=== PATIENT | female | born 1945 | race Caucasian/White ===

== ENCOUNTER 2020-05-05 21:58 | Observation (INO) | payer MEDICARE, SELFPAY ==
[2020-05-05 22:00] VITALS: BP 182/94; PULSE 111; RESP 20; TEMP 35.8; O2SAT 93; BMI 47.8
--- NOTE | 2020-05-05 22:08 | EKG12_ITS ---
Test Reason : CP ADMISSION Blood Pressure : / mmHG Vent. Rate : 104 BPM Atrial Rate : 104 BPM P-R Int : 150 ms QRS Dur : 092 ms QT Int : 360 ms P-R-T Axes : 000 013 044 degrees QTc Int : 473 ms Ectopic atrial tachycardia Low voltage QRS Borderline ECG When compared with ECG of 05-MAY-2020 22:02, MANUAL COMPARISON REQUIRED, DATA IS UNCONFIRMED Confirmed by NATI RICE, SELIN ([id number]), health editor HOOD BRUNNER ([id number]) on 05/07/2020 12:48:26 PM Referred By: DR CAMPA Confirmed By:SELIN DAMIAN MD
[2020-05-05 22:18] LABS: Absolute Lymphocyte Count 1.77 X10^3/uL (0.83-4.51); Absolute Neutrophil Count 8.3 X10^3/uL (2.0-7.7); Basophil# 0.08 X10^3/uL; Basophil% 0.7 % (0-1); Eosinophils% 2.6 % (0-5); Hematocrit 44.3 % (37-47); Hemoglobin 14.6 g/dL (12.0-15.0); Lymphocyte # 1.77 X10^3/ul (4.0); Lymphocyte % 15.5 % (19-41); Mean Corpuscular Hgb 29.7 pg (27.0-32.0); Mean Corpuscular Volume 90.2 fL (81-99); Mean Platelet Vol. 10.1 fl (6.2-12.0); Monocyte# 0.92 X10^3/uL; NRBC Flagged by Analyzer 0 % (0-5); Neutrophil # 8.34 X10^3/uL (2.7-7.7); Neutrophil % 72.9 % (47-70); Platelet Count 204 K/mm3 (150-450); RBC Distribution Width SD 43.3 fl (35.1-43.9); Red Blood Count 4.91 M/mm3 (4.2-5.4); White Blood Count 11.5 K/mm3 (4.4-11.0)
--- NOTE | 2020-05-05 22:18 | ED.VISSUMM ---
- ER Visit Summary Date of Service: 05/05/20 Chief Complaint: Chest pain History of Present Illness: The patient is a 74 F has medical history of diabetes, hypertension high cholesterol. No cardiac history. The patient did have COVID-19 in January. She has had exertional dyspnea for some time particularly with walking steps. Today around 3:00 this afternoon she started getting midsternal chest pain that did not radiate. She denies any nausea or diaphoresis. It was not associated with exertion. She has never had a cardiac catheterization and has not had a stress test for a number of years. Physical Examination: Older female no acute distress. Sister at bedside. Vital signs are stable afebrile. Pulse ox 93% on room air no signs hypoxia. H EENT exam unremarkable. Neck nontender. Lungs clear to auscultation bilaterally. Heart regular rhythm no murmur. Chest wall minimal tenderness. Abdomen soft nontender normal bowel sounds no peritoneal signs. Moving all 4 extremities. Trace edema both lower extremities. Calves are nontender. Neurologically she is awake alert. Moving all 4 extremities. Test Results: EKG shows a sinus tachycardia rate of 110 no acute signs of KS or ischemia. No substantial change from prior EKGs. Chest x-ray portable 1 view read by myself shows no acute abnormality. Also read by the radiologist and agrees. CBC white count 11. Hemoglobin 14. No bands. Chemistries sodium 132. Normal creatinine and gap of 7. Glucose 328. She is diabetic. Troponin normal. Repeat exam patient is doing well at 2312. She and I discussed and she is comfortable with being admitted. I have spoken to the hospitalist. Emergency Department Course and Treatment: Older female with nonexertional midsternal chest pain. Concerning along with exertional dyspnea that this may be cardiac in etiology. She undergo a cardiac work-up most likely will need admission and further provocative testing. Treatment Plan: Admission for more advanced cardiac testing and further evaluation of this undiagnosed chest pain. Disposition: Admission Impression: Acute midsternal chest pain of uncertain etiology History of diabetes, hypertension high cholesterol This note was generated with [employer] dictation software. It may contain incorrect words, spelling, and punctuation that were not noted in review of the chart prior to signing ED Disposition - Plan for ED Patient: Referrals: NOT,DEFINED [NON-STAFF] -
--- NOTE | 2020-05-05 22:22 | RAD_ITS ---
STUDY: X-RAY CHEST REASON FOR EXAM: Female, 74 years old. chest pain TECHNIQUE: AP portable COMPARISON: None. FINDINGS: Lungs are clear of acute infiltration. There is no demonstrated pleural abnormality. Heart is upper normal size. Normal mediastinum and sharon. Normal visualized pulmonary arteries. Mildly calcified aortic arch and descending thoracic aorta. Dorsal spine and shoulders demonstrate degenerative changes. Normal visualized ribs, and clavicles There is no demonstrated abnormality of the visualized soft tissue structures of the upper abdomen. RAD/Chest 1 View (Portable) IMPRESSION: No acute cardiopulmonary pathology Electronically Signed: Marcin Ansari MD at 22:36 EST , Service support ,
[2020-05-05 22:41] LABS: Anion Gap 7 (5-15); BUN 16 mg/dL (7-18); BUN/Creat Ratio 15.4 RATIO (10-20); Calcium,Total 9.3 mg/dL (8.5-10.1); Chloride 96 mmol/L (98-107); Creatinine, Serum 1.04 mg/dL (0.55-1.02); EST Glomerular Filtration Rate 55 mL/min (>60); Est Glom Filt Rate - Afr Amer 67 mL/min (>60); Estimated Creatinine Clearance 44.43 ml/min; Glucose 328 mg/dL (74-106); Potassium 4.4 mmol/L (3.5-5.1); Sodium Level 132 mmol/L (136-145)
[2020-05-05 23:00] VITALS: PULSE 110; RESP 24; O2SAT 97
[2020-05-05 23:14] VITALS: BP 140/86; PULSE 108; RESP 22; TEMP 36.4; O2SAT 98
--- NOTE | 2020-05-05 23:19 | PCM.HP.STD ---
Problem List (1) Chest pain Status: Acute History of Present Illness Date of Admission: 05/05/20 Chief Complaint: chest pain The patient is a 74 year old F with a significant history of hypertension diabetes mellitus who presents to the emergency department with excruciating progressively worsening substernal chest pain that radiated to her right shoulder. Her symptoms started about 8 hours prior to presentation. She denies any ameliorating factors to the pain. Her pain worsens with taking a deep breath. She denies any nausea vomiting or diaphoresis. Associated with his symptoms is lightheadedness. Also patient reports that she has been having dyspnea on exertion for a long time. She does not specify the length of time. Past Medical History Medical History: Medical History (Last Reviewed 05/06/20 @ 00:[address] John Schulte MD) Diabetes E11.9 Hypertension I10 Allergies No Known Allergies Allergy (Verified 05/05/20 22:04) Home Medications: Ambulatory Orders Medication Instructions Recorded Amitriptyline HCl [Elavil] 1 tab PO QHS 05/05/20 Aspirin [Aspirin, Baby] 1 tab PO DAILY 05/05/20 Glimepiride 1 tab PO BIDCM 05/05/20 Lisinopril 1 tab PO DAILY 05/05/20 Meclizine HCl 1 tab PO Q6H PRN 05/05/20 Metformin HCl 1 tab PO BID 05/05/20 Surgical History: total knee arthroplasty Smoking Status: Former smoker - *Family History Paternal History Items: Heart Disease, - - Aneurysm Maternal History Items: Cancer - Colon, Heart Disease - Her mother had atrial fibrillation Review of Systems Constitutional: Denies: Chills, Fever, Weight Change HEENT: Denies: Head Aches, Sinus Congestion, Sinus Drainage Cardiovascular: Reports: Chest Pain. Denies: Palpitations Respiratory: Reports: Shortness of breath upon exertion. Denies: Cough, Sputum production Gastrointestinal: Denies: Abdominal Pain, Nausea, Vomiting Genitourinary: Denies: Dysuria Musculoskeletal: Denies: Joint Pain, Joint Tenderness Skin: Denies: Rash, Wounds Neurological: Denies: Numbness, Tingling, Focal weakness Psychiatric: Denies: Anxiety, Depression, Homicidal Ideations, Suicidal Ideations Hematologic/ Lymphatic: Denies: Easy Bruising, Easy Bleeding VTE Information - Inpt Only VTE Present on Admission: No VTE Mechan Device Prophylaxis: SCD's VTE Pharm Prophylaxis ordered?: No Patient Problems: Active and Suspected Problems (Last Updated 05/05/20 @ 23:[address] John Schulte MD) Chest pain (Acute) - Physical Exam Vitals/I&O's: Vital Signs Temp Pulse Resp BP Pulse Ox 96.5 F L 111 H 20 H 182/94 H 93 05/05/20 22:00 05/05/20 22:00 05/05/20 22:00 05/05/20 22:00 05/05/20 22:00 Oxygen Delivery Method Room Air Weight: 134.5 kg Body Mass Index (BMI) 47.8 General: Alert, Oriented x3, Cooperative HEENT: Atraumatic, PERRLA, EOMI, Normocephalic Neck: Supple, No JVD, Negative Carotid Bruits Lungs: Clear to auscultation, Normal air movement Cardiovascular: Normal S1, Normal S2, No murmurs, Tachycardic Abdomen: Bowel Sounds Present, Soft, Non Tender Extremities: No edema, Capillary Refill Less than 3 Seconds Skin: No rashes, No breakdown Musculoskeletal: No Tenderness to Palpation of Joints or Extremities Neurological: Cranial nerves II-XII grossly intact Psych/Mental Status: Normal Affect, Appropriate Laboratory Results 05/05/20 22:05: WBC 11.5 H, RBC 4.91, Hgb 14.6, Hct 44.3, MCV 90.2, MCH 29.7, MCHC 33.0, RDW Std Deviation 43.3, RDW Coeff of Casper 13.0, Plt Count 204, MPV 10.1, Immature Gran % (Auto) 0.300, Neut % (Auto) 72.9 H, Lymph % (Auto) 15.5 L, Coal % (Auto) 8.0, Eos % (Auto) 2.6, Baso % (Auto) 0.7, Absolute Neuts (auto) 8.3 H, Absolute Lymphs (auto) 1.77, Nucleated RBC % 0 05/05/20 22:05: Sodium 132 L, Potassium 4.4, Chloride 96 L, Carbon Dioxide 29.0, Anion Gap 7, BUN 16, Creatinine 1.04 H, Estim Creat Clear Calc 44.43, Est GFR (MDRD) Af Amer 67, Est GFR (MDRD) Non-Af 55 L, BUN/Creatinine Ratio 15.4, Glucose 328 H, Calcium 9.3, Troponin I < 0.015 Assessment/Plan All Active Problems (Last Updated 05/05/20 @ 23:[address] John Schulte MD) Chest pain (Acute) The patient is a 74 year old F with a significant history of hypertension diabetes mellitus who presents emergency department with excruciating substernal chest pain that radiated to her right shoulder; and with dyspnea on exertion. Chest pain and dyspnea on exertion Place on a monitored bed at PCU Radiologist impression of chest x-ray: No acute cardiopulmonary pathology. Actual CXR image was independently visualized. No acute cardiopulmonary process was noted. Actual EKG tracing was independently visualized. EKG tracing showed sinus tachycardia with nonspecific changes. Old EKG was reviewed. ASA 81 mg p.o. daily ordered SL NTG 0.4 mg prn as needed for chest pain ordered Morphine as needed for pain ordered We will check lipid panel. Serial cardiac enzymes ordered Stat EKG as needed for chest pain Chemical stress test in the AM if the cardiac enzymes are negative. Treadmill stress test was not ordered since patient has bilateral knee replacement. We will check an echocardiogram Hypertension Blood pressure is not within goal Lisinopril continued. Trend blood pressure and adjust blood pressure medications as necessary. Diabetes mellitus Patient with hyperglycemia on presentation Amaryl continued. Hold Metformin Accu-Chek QA [facility] with correction scale insulin ordered. DVT prophylaxis SCD ordered OBSV E&M: [id number] Initial observation care L2
--- NOTE | 2020-05-05 23:56 | ECHOD_ITS ---
Reason For Study: Dyspnea/SOB Procedure This was a 2D Doppler, Color Flow transthoracic echocardiogram. Exam performed in department. Left Ventricle Normal LV size. Moderate concentric left ventricular hypertrophy. Left ventricular systolic function is normal. The estimated ejection fraction is 60 %. Stage 1 diastolic dysfunction. No regional wall motion abnormalities noted. Right Ventricle Normal RV size. Normal systolic function. Atria Normal left atrium. Normal right atrium. Mitral Valve Normal mitral valve. Tricuspid Valve Normal tricuspid valve. Aortic Valve Normal aortic valve. Trisinus/trileaflet aortic valve. Pulmonic Valve Normal pulmonic valve. Great Vessels Normal aortic root. The pulmonary artery is normal size. Normal inferior vena cava. Pericardium/Pleural No pericardial effusion. MMode/2D Measurements & Calculations LVIDd: 4.3 cm IVSd: 1.4 cm Ao root diam: 3.6 cm LVIDs: 2.8 cm LVPWd: 1.4 cm RVDd: 2.4 cm FS: 35.3 % LAV(MOD-bp): 27.4 ml LVAd ap4: 22.8 cm2 SV(MOD-sp4): 35.2 ml LAV(MOD-bp) Indexed: 11.6 ml/m2 EDV(MOD-sp4): 58.1 ml LAV(MOD-sp2): 29.5 ml EDV(sp4-el): 59.3 ml LAV(MOD-sp4): 24.8 ml LVAs ap4: 12.5 cm2 ESV(MOD-sp4): 22.9 ml ESV(sp4-el): 21.6 ml EF(MOD-sp4): 60.5 % EF(sp4-el): 63.5 % SV(sp4-el): 37.7 ml LA A4 area: 12.7 cm2 LA dimension(2D): 2.9 cm RA A4 area: 10.4 cm2 Doppler Measurements & Calculations MV E max og: 53.8 cm/sec Lat Peak E' Og: 6.3 cm/sec Med Peak E' Og: 4.9 cm/sec MV A max og: 91.2 cm/sec E/E' lat: 8.5 E/E' med: 11.0 MV E/A: 0.59 Ao V2 max: 155.3 cm/sec LV V1 max: 93.0 cm/sec PA V2 max: 75.1 cm/sec Ao max P.6 mmHg LV V1 max P.5 mmHg Ao V2 mean: 109.7 cm/sec Ao mean P.2 mmHg Ao V2 VTI: 26.3 cm Interpretation Summary Normal LV size. Moderate concentric left ventricular hypertrophy. Left ventricular systolic function is normal. The estimated ejection fraction is 60 %. Stage 1 diastolic dysfunction. Ordering Physician: John Schulte Referring Physician: Deven Van Performed By: Anika Gregorio, MILAN, RVT
--- NOTE | 2020-05-05 23:56 | EKG12_ITS ---
Test Reason : CP Blood Pressure : / mmHG Vent. Rate : 110 BPM Atrial Rate : 110 BPM P-R Int : 144 ms QRS Dur : 092 ms QT Int : 330 ms P-R-T Axes : 000 025 043 degrees QTc Int : 446 ms Ectopic atrial tachycardia Low voltage QRS Poor R wave progression Anterior ND, age undetermined, cannot be excluded Confirmed by FLORENTIN RICE, NORA ([id number]), desk editor HOOD BRUNNER ([id number]) on 05/08/2020 10:56:46 AM Referred By: Confirmed By:NORA LERMA MD
[2020-05-06] VITALS (7 sets, daily range): BP systolic 120–156; BP diastolic 67–73; PULSE 94–109; RESP 16–18; TEMP 36.6–37.1; O2SAT 93–95; BMI 64.9
[2020-05-06] MEDS: Insulin Lispro 100 UNIT/ML INSULN.PEN SC ×2 (00:28→11:40)
[2020-05-06 00:41] LABS: Bedside Glucose 302 mg/dL (70-110)
[2020-05-06] MEDS: Morphine 2 MG/ML Syringe IV (01:57)
[2020-05-06 04:26] LABS: Absolute Neutrophil Count 5.5 X10^3/uL (2.0-7.7); Basophil# 0.05 X10^3/uL; Basophil% 0.6 % (0-1); Eosinophil# 0.24 X10^3/uL; Eosinophils% 2.9 % (0-5); Hematocrit 39.4 % (37-47); Hemoglobin 13.1 g/dL (12.0-15.0); Lymphocyte % 20.6 % (19-41); Mean Corp Hgb Conc 33.2 g/dL (32-36); Mean Corpuscular Hgb 29.8 pg (27.0-32.0); Mean Corpuscular Volume 89.7 fL (81-99); Mean Platelet Vol. 10.1 fl (6.2-12.0); Monocyte# 0.81 X10^3/uL; Monocyte% 9.8 % (0-10); NRBC Flagged by Analyzer 0 % (0-5); Neutrophil # 5.45 X10^3/uL (2.7-7.7); Neutrophil % 65.9 % (47-70); Platelet Count 179 K/mm3 (150-450); RBC Distribution Width SD 42.9 fl (35.1-43.9); Red Blood Count 4.39 M/mm3 (4.2-5.4); White Blood Count 8.3 K/mm3 (4.4-11.0)
[2020-05-06 04:45] LABS: Anion Gap 8 (5-15); BUN 13 mg/dL (7-18); BUN/Creat Ratio 15.8 RATIO (10-20); Calcium,Total 8.9 mg/dL (8.5-10.1); Chloride 99 mmol/L (98-107); Cholesterol 127 mg/dL (200); Creatinine, Serum 0.82 mg/dL (0.55-1.02); EST Glomerular Filtration Rate 72 mL/min (>60); Est Glom Filt Rate - Afr Amer 87 mL/min (>60); Estimated Creatinine Clearance 60.72 ml/min; Glucose 255 mg/dL (74-106); High Density Lipoprotein 40 mg/dL; Potassium 3.9 mmol/L (3.5-5.1); Sodium Level 137 mmol/L (136-145); Triglycerides 198 mg/dL; Very Low Density Lipoprotein 40 mg/dL (5-40)
--- NOTE | 2020-05-06 05:55 | EKG12_ITS ---
Test Reason : AM EKG Blood Pressure : / mmHG Vent. Rate : 103 BPM Atrial Rate : 103 BPM P-R Int : 136 ms QRS Dur : 088 ms QT Int : 350 ms P-R-T Axes : 256 012 021 degrees QTc Int : 458 ms Unusual P axis and short NH, probable junctional tachycardia Low voltage QRS Abnormal ECG When compared with ECG of 06-MAY-2020 00:33, MANUAL COMPARISON REQUIRED, DATA IS UNCONFIRMED Confirmed by NATI RICE, SELIN ([id number]), makeup editor HOOD BRUNNER ([id number]) on 05/07/2020 12:47:31 PM Referred By: DR CAMPA Confirmed By:SELIN DAMIAN MD
[2020-05-06] MEDS: Lisinopril 5 MG Tablet PO (06:08)
[2020-05-06] MEDS: Aspirin E.C. 81 MG Tablet PO (06:08)
[2020-05-06 06:16] LABS: Bedside Glucose 265 mg/dL (70-110)
[2020-05-06] MEDS: Glimepiride 4 MG Tablet PO (11:40)
[2020-05-06 11:50] LABS: Bedside Glucose 291 mg/dL (70-110)
--- NOTE | 2020-05-06 11:52 | STRESSREP_ITS ---
Stress Test Report Pharmacologic myocardial perfusion stress test. 74-year-old lady with a history of hypertension diabetes mellitus and chest discomfort. Stress protocol: Resting EKG demonstrates an ectopic atrial rhythm with a rate of 97 bpm. Poor R wave progression is noted. 0.4 mg of regadenoson was infused per usual protocol followed by rapid venous saline flush injection continuous EKG monitoring was performed. The patient maintained the ectopic atrial rhythm with a maximum heart rate of 109 bpm the maximum workload was 1 metabolic equivalent. At rest there were no ST or T wave changes noted to suggest abnormal flow reserve at peak infusion nonspecific ST changes were noted with no meet the criteria for ischemia. The final blood pressure was 110/70 mmHg. Myocardial perfusion protocol. 15.0 mCi of technetium 99m sestamibi was injected at rest. 0.4 mg of regadenoson was infused per usual protocol. At peak infusion 44.8 mCi of techn etium 99m sestamibi was injected stress images were obtained stress and rest images were reconstructed and compared in the short axis vertical long horizontal long axis. Gated images were also obtained Perfusion SPECT analysis: Review of the stress images demonstrate normal uptake of tracer noted in all areas of myocardium the resting images similar demonstrate normal uptake of tracer noted in all areas of the myocardium. No reversibility is noted suggest ischemia no previous infarct is noted. Gated SPECT analysis: The gated ejection fraction is 60%. Conclusion: Normal pharmacologic myocardial perfusion stress test. Preserved ejection fraction.
--- NOTE | 2020-05-06 13:59 | DCINST_ITS ---
- Discharge Diagnoses Current Active Problems: Current Active and Chronic Problems (Last Reviewed 05/06/20 @ 00:[address] John Schulte MD) Chest pain (Acute) You will use the following diet at home:: Calorie/Carbohydrate Controlled (specify 1200, 1400, etc) - 1800 stanley Your food should be the consistency of: Regular Your liquids should be the consistency of: Regular/Thin Discharge Activity: Return to Normal Activity Weight Bearing Status: Full weight bearing Allergies/Adverse Reactions: Allergies adhesive tape Allergy (Verified 05/06/20 00:07) Rash Medications to take at Discharge Amitriptyline HCl [Elavil] 1 tab PO QHS 05/05/20 Aspirin [Aspirin, Baby] 1 tab PO DAILY 05/05/20 Glimepiride 1 tab PO BIDCM 05/05/20 Lisinopril 1 tab PO DAILY 05/05/20 Meclizine HCl 1 tab PO Q6H PRN 05/05/20 Metformin HCl 2 tab PO BID #120 tab 05/06/20 The following prescriptions were given: Metformin HCl 2 tab PO BID #120 tab Transmission Status: Pending to [id number] Primary Care Physician: NOT,DEFINED [NON-STAFF] - Please follow up with your Primary Care Physician in: in 2 weeks Test Results: Test results from this visit will be discussed in further detail at your follow- up appointment, if applicable.
--- NOTE | 2020-05-06 14:34 | PHA.DC.MC ---
Pharmacy Service has performed discharge medication reconciliation and counseling for this patient. The patient was counseled on the following discharge medications and changes in medications for homegoing were reviewed. 1. METFORMIN --> DOSE INCREASED FROM 1 BID TO 2 TAB BID The Reason for Use, instructions for use, and potential side effects were reviewed for all new medications. The patient's questions regarding all of their medications were answered. The patient was able to verbally demonstrate an understanding of their discharge medications. Home Medications Amitriptyline HCl [Elavil] 1 tab PO QHS 05/05/20 Aspirin [Aspirin, Baby] 1 tab PO DAILY 05/05/20 Glimepiride 1 tab PO BIDCM 05/05/20 Lisinopril 1 tab PO DAILY 05/05/20 Meclizine HCl 1 tab PO Q6H PRN 05/05/20 Metformin HCl 2 tab PO BID #120 tab 05/06/20 The patient's discharge medication list was reviewed for discrepancies and discrepancies were resolved.
--- NOTE | 2020-05-08 17:44 | PCM.DC.SUM ---
Discharge Date and Diagnosis - Problem List Patient Problems: Active and Suspected Problems (Last Reviewed 05/06/20 @ 00:[address] John Schulte MD) Chest pain (Acute) Date of Admission: 05/05/20 Date of Discharge: 05/06/20 - Primary Discharge Diagnosis Acute Problems: Active Problems (Last Reviewed 05/06/20 @ 00:[address] John Schulte MD) #1 musculoskeletal chest pain #2 type 2 diabetes Hospital Course and Treatment Operations: None Procedures: 2-D Echocardiogram, Nuclear stress test Summary of Care Provided: The patient is a 74 year old F emergency room at [facility] with a chief complaint of precordial substernal chest pain. Work-up in the emergency room included an EKG which showed a sinus tachycardia of 110 with no evidence of acute ischemic changes, chest x-ray showed no acute abnormality, patient's cardiac enzymes were unremarkable, glucose was 328. Patient was placed into observation status on PCU, serial cardiac enzymes were performed and these remain negative. Patient underwent a nuclear stress test on 05/07/2020 that was negative for reversible ischemia, on that date she also underwent an echocardiogram which was unremarkable. On 05/07/2020, patient was seen and examined: On examination she appeared in good health and spirits, she does not appear to be in any distress. Vital signs as documented. Skin warm and dry and without overt rashes. Neck without JVD, thyroid appears normal, trachea is midline, neck is supple. Lungs clear, normal air movement was noted. Heart exam notable for regular rhythm, normal sounds and absence of murmurs, rubs or gallops. Abdomen unremarkable and without evidence of organomegaly, masses, or abdominal aortic enlargement, bowel sounds are present in all 4 quadrants, no abdominal tenderness was noted. Extremities nonedematous, no cyanosis was noted, no clubbing was noted. Neuro: Cranial nerves II through XII are grossly intact, no focal motor deficits were noted, sensation to light touch and pinprick is intact, motor exam 5/5 throughout. Psych: Patient is alert and oriented x3, she does not appear anxious or depressed, she does not appear agitated. Patient appears stable for discharge on 05/07/2020. Patient Problems: Active and Suspected Problems (Last Reviewed 05/06/20 @ 00:[address] John Schulte MD) Chest pain (Acute) - Physical Exam Vitals/I&O's: Vital Signs Temp Pulse Resp BP Pulse Ox 98.4 F 98 16 130/67 H 93 05/06/20 11:48 05/06/20 11:48 05/06/20 11:48 05/06/20 11:48 05/06/20 11:48 Oxygen Flow Rate (L/min) 2 Oxygen Delivery Method Room Air Weight: 130.5 kg Body Mass Index (BMI) 64.9 Intake and Output for Last 24 Hours 05/06/20 05/07/20 05/08/20 23:59 23:59 23:59 Intake Total 300 / 300 Balance 300 / 300 Discharge Activity: Return to Normal Activity Weight Bearing Status: Full weight bearing Home Medications: Medications to take at Discharge Amitriptyline HCl [Elavil] 1 tab PO QHS 05/05/20 Aspirin [Aspirin, Baby] 1 tab PO DAILY 05/05/20 Glimepiride 1 tab PO BIDCM 05/05/20 Lisinopril 1 tab PO DAILY 05/05/20 Meclizine HCl 1 tab PO Q6H PRN 05/05/20 Metformin HCl 2 tab PO BID #120 tab 05/06/20 Following Prescriptions Were Given to Patient: Metformin HCl 2 tab PO BID #120 tab Transmission Status: Received by [id number] Primary Care Physician: NOT,DEFINED [NON-STAFF] - Please follow up with your Primary Care Physician in: in 2 weeks Disposition: Home Minutes spent on discharge:: 30 Patient Condition:: Stable Medical Necessity - Tobacco Use Smoking Status: Former smoker Meaningful Use Info Meaningful Use Diagnoses (Choose all that apply): None applicable OBSV E&M: [id number] Observation care discharge
== END 2020-05-06 14:00 | disposition home or self-care (01) ==
LOC: ED 22:33 → PCU 23:23
PROVIDERS: Admitting Provider Hospitalist; Emergency Provider Emergency Medicine; PCP Family Medicine; Visit Provider Internal Medicine
DX: R07.89 Other chest pain (principal); E11.65 Type 2 diabetes mellitus with hyperglycemia; I10 Essential (primary) hypertension; E78.00 Pure hypercholesterolemia, unspecified; Z86.16 Personal history of COVID-19; Z79.899 Other long term (current) drug therapy; Z79.84 Long term (current) use of oral hypoglycemic drugs; Z79.82 Long term (current) use of aspirin; R42 Dizziness and giddiness; R06.09 Other forms of dyspnea; Z87.891 Personal history of nicotine dependence
CPT/HCPCS: 71045; 78452; 80048; 80061; 82962; 84484; 85025; 93005; 93017; 93306; 96374; 97802; 99218; 99285; A9500; A4216; G0378; J2785

== ENCOUNTER → 2020-11-07 | Outpatient (CLI) | payer MEDICARE, SELFPAY ==
[2020-11-06 20:58] LABS: M R Staph aureus DNA By PCR Negative (Negative); Probe Check PASS; Staph aureus DNA By PCR NEGATIVE (Negative)
== END | disposition home or self-care (01) ==
LOC: LABSPEC 08:28
PROVIDERS: PCP Family Medicine; Referring Provider Podiatrist Foot & Ankle Surgery; Visit Provider Podiatrist Foot & Ankle Surgery
DX: L97.529 Non-pressure chronic ulcer of other part of left foot with unspecified severity (principal); L03.032 Cellulitis of left toe
CPT/HCPCS: 87070; 87186; 87205; 87640

== ENCOUNTER 2023-01-24 13:27 | Observation (INO) | payer MEDICARE, SELFPAY ==
[2023-01-24 13:30] VITALS: BP 90/55; PULSE 88; RESP 16; TEMP 36.3; O2SAT 97; BMI 39.8
[2023-01-24 13:36] VITALS: BMI 39.8
--- NOTE | 2023-01-24 13:47 | EKG12_ITS ---
Test Reason : Blood Pressure : / mmHG Vent. Rate : 092 BPM Atrial Rate : 092 BPM P-R Int : 162 ms QRS Dur : 098 ms QT Int : 380 ms P-R-T Axes : 000 -17 017 degrees QTc Int : 469 ms Normal sinus rhythm Low voltage QRS Borderline ECG Confirmed by NATI RICE, SELIN ([id number]), food expeditor HOOD BRUNNER ([id number]) on 01/26/2023 10:36:07 AM Referred By: Confirmed By:SELIN DAMIAN MD
--- NOTE | 2023-01-24 14:01 | CT_ITS ---
STUDY: CT BRAIN WITHOUT CONTRAST REASON FOR EXAM: Female, 77 years old. confusion RADIATION DOSAGE (If Supplied By Facility): CTDIvol = ( 44.99 ) mGy, DLP = ( 897.35 ) mGycm TECHNIQUE: Transaxial CT imaging of the brain was performed without administration of intravenous contrast material. Individualized dose optimization techniques were used for this CT. COMPARISON: No relevant priors. FINDINGS: Normal soft tissue structures. Normal calvarium. Normal size ventricles and extra-axial spaces for the patient''s age. Normal white matter tracts of the cerebral hemispheres. Normal basal ganglia and thalami. Normal brainstem. Normal cerebellum. There is no intracranial hemorrhage. There are no findings of an acute ischemic infarction. Normal visualized paranasal sinuses. CT/Brain/Head without Contrast IMPRESSION: Chronic involutional changes of the brain. No acute hemorrhage Electronically Signed: Franky Pope MD at 15:06 EST ,
--- NOTE | 2023-01-24 14:04 | EX.ED.DYSGE1 ---
HPI <JONAH Oliveira - Last Filed: 01/24/23 17:53> History of Present Illness Chief Complaint: Neuro S/Sx Narrative Narrative: 77-year-old female with PMH of HTN, HLD, DM2, uterine cancer s/p hysterectomy on chemo and radiation presents after an episode of altered mental status this morning. She remembers sitting down at the kitchen table to have breakfast. Her sister came home around noon and noted she was sitting at the table staring and not responding well to questions. She initially could tell her her name but then stopped answering. She did not fall or have syncopal event. She seemed out of it for 30 minutes. A similar episode occurred a week ago and they were not evaluated. Patient states she remembers being in the ambulance and them putting the EKG leads on her chest. She now feels back to normal. She denies recent fever, chills, N/V/D, chest pain or shortness of breath, or bladder or bowel changes. In the past she has had issues with dehydration and low magnesium which they thought were from Keytruda so they discontinued that. She only has 1 more chemotherapy and radiation treatment scheduled. Her oncologist is Dr. Hernandes. [facility] <JONAH Oliveira - Last Filed: 01/24/23 17:53> [facility] Medical History (Updated 01/24/23 @ 17:53 by JONAH Oliveira) Benign neoplasm of colon Chest pain Cholecystitis CKD (chronic kidney disease) stage 3, GFR 30-59 ml/min Diabetes Endometrial cancer GERD (gastroesophageal reflux disease) Hypercholesteremia Hypertension Neuropathy Home Medications glimepiride 4 mg tablet 1 tab PO BIDCM diabetes 05/05/20 [History Last Taken 05/05/20] metformin 500 mg tablet 2 tab PO BID #120 tabs 05/06/20 [Rx Last Taken Unknown] amitriptyline 50 mg tablet 50 mg PO QHS 12/23/22 [History Last Taken Unknown] atorvastatin 40 mg tablet 40 mg PO QHS 12/23/22 [History Last Taken Unknown] dulaglutide 3 mg/0.5 mL subcutaneous pen injector (Trulicity) 3 mg subcut QWEEK 12/23/22 [History Last Taken Unknown] gabapentin 100 mg capsule 100 mg PO BID 12/23/22 [History Last Taken Unknown] carvedilol 3.125 mg tablet 3.125 mg PO BID #60 tabs 12/29/22 [Rx Last Taken Unknown] empagliflozin 10 mg tablet (Jardiance) 10 mg PO DAILY #30 tabs 12/29/22 [Rx Last Taken Unknown] lisinopril 2.5 mg tablet 2.5 mg PO DAILY #30 tabs 12/29/22 [Rx Last Taken Unknown] magnesium chloride 71.5 mg (magnesium chloride) tablet,delayed release (Slow-Mag) 71.5 mg PO BID 12/29/22 [History Last Taken Unknown] ondansetron HCl 8 mg tablet 8 mg PO Q12H PRN nausea 12/29/22 [History Last Taken Unknown] aspirin 81 mg tablet,delayed release (Adult Low Dose Aspirin) 81 mg PO DAILY 01/24/23 [History Last Taken Unknown] Allergy/AdvReac Type Severity Reaction Status Date / Time No Known Allergies Allergy Verified 01/24/23 14:23 Family History (Updated 12/23/22 @ 14:30 by Yelena Yousif) Father Myocardial infarction Mother Heart disease irregular heart rate Colon cancer Surgical History (Updated 12/23/22 @ 14:41 by Yelena Yousif) History of total left knee replacement (TKR) (~01/2011) History of total right knee replacement (TKR) (~05/11/11) Hx laparoscopic cholecystectomy Hx of cataract surgery Hx of hysterectomy, total Social History (Updated 12/23/22 @ 14:31 by Yelena Yousif) Smoking Status: Former smoker how long ago did patient quit smokin alcohol intake: never substance use type: does not use ROS <JONAH Oliveira - Last Filed: 01/24/23 17:53> ROS ED ROS Narrative Constitutional: Negative for fever, chills, malaise. Eyes: Negative for visual change. CVS: Negative for palpitations, chest pain, syncope. Respiratory: Negative for shortness of breath, cough. GI: Negative for abdominal pain, nausea, vomiting, diarrhea melena, hematochezia. : Negative for dysuria, hematuria or frequency. Neuro: Negative for headache, motor/sensory dysfunction. EXAM <JONAH Oliveira - Last Filed: 01/24/23 17:53> Physical Exam Narrative Exam Narrative: CONST: Patient sitting in no acute distress. EYES: Normal inspection. ENT: Normal inspection, slightly dry mucous membranes. NECK: Normal inspection. RESP: No respiratory distress, CTAB. CVS: Regular rate and rhythm, no murmur, no gallop. SKIN: Color normal, no rash, warm, dry, intact. EXTREMITIES: Normal appearance, no pedal edema. NEURO: Oriented x4. Face symmetric, moving all extremities. PSYCH: Normal affect. Const Vital Signs: 01/24/23 13:30 01/24/23 15:22 01/24/23 16:58 Temperature 97.3 F L 98.1 F Temperature Source Oral Pulse Rate 88 88 90 Respiratory Rate 16 12 20 H Blood Pressure 90/55 L 108/70 100/75 Blood Pressure Mean 66 82 83 Pulse Ox 97 98 89 Oxygen Delivery Method Room Air Nasal Cannula Oxygen Flow Rate (L/min) 2 01/24/23 17:00 Temperature 98.1 F Temperature Source Oral Pulse Rate 89 Respiratory Rate 18 Blood Pressure 126/61 H Blood Pressure Mean 82 Pulse Ox 92 Oxygen Delivery Method Room Air Oxygen Flow Rate (L/min) <Robert Blue MD - Last Filed: 01/24/23 19:20> Physical Exam Const Vital Signs: 01/24/23 13:30 01/24/23 15:22 01/24/23 16:58 Temperature 97.3 F L 98.1 F Temperature Source Oral Pulse Rate 88 88 90 Respiratory Rate 16 12 20 H Blood Pressure 90/55 L 108/70 100/75 Blood Pressure Mean 66 82 83 Pulse Ox 97 98 89 Oxygen Delivery Method Room Air Nasal Cannula Oxygen Flow Rate (L/min) 2 01/24/23 17:00 Temperature 98.1 F Temperature Source Oral Pulse Rate 89 Respiratory Rate 18 Blood Pressure 126/61 H Blood Pressure Mean 82 Pulse Ox 92 Oxygen Delivery Method Room Air Oxygen Flow Rate (L/min) MDM <JONAH Oliveira - Last Filed: 01/24/23 17:53> [facility] Narrative Medical decision making narrative: History gathered from: Patient and family member Patient had a 30-minute episode of altered mental status where she was awake but not responding appropriately. She is now back to baseline. She appears well and nontoxic. BP is 90/55 with otherwise normal vital signs. She has dry mucous membranes with an otherwise benign exam. She is fully alert and oriented and neurologically intact. Her pulse ox dropped transiently she was placed on 2 L nasal cannula but repeat pulse ox is normal and she was weaned to room air. She does not feel short of breath and denies chest pain. Labs show pancytopenia with WBC of 4.0, hemoglobin 9.3, platelets 102. Lactate is 3.0. She has normal electrolytes with BUN of 28, creatinine 1.69. Magnesium slightly low at 1.4. She no recent labs in our system. She showed me her MyChart and labs from 01/12/2023 are listed below. She does have new neutropenia and acute kidney injury today which I suspect is from dehydration. UA is consistent with UTI. It was cultured and she was treated with IV fluids and Rocephin. Blood pressure has improved after fluids. Case was discussed with the hospitalist for admission. Differential: Electrolyte abnormality, UTI, TIA among others 01/12/2023 labs WBC 7.45 Hgb 10.3 PLT 163 BUN 24 CR 1.07 NA 138 K4.4 Mg 1.4 Lab Data Attestation: I reviewed the patient's lab results. Labs: Laboratory Results - last 24 hr 01/24/23 01/24/23 14:42 15:58 WBC 4.0 L RBC 2.99 L Hgb 9.3 L Hct 30.0 L MCV 100.3 H MCH 31.1 MCHC 31.0 L RDW Std Deviation 48.8 H RDW Coeff of [place] 13.2 Plt Count 102 L MPV 9.8 Immature Gran % (Auto) 0.200 Neut % (Auto) 79.7 H Lymph % (Auto) 11.7 L [place] % (Auto) 7.2 Eos % (Auto) 1.0 Baso % (Auto) 0.2 Absolute Neuts (auto) 3.2 Absolute Lymphs (auto) 0.47 L Nucleated RBC % 0 Differential Comment SCANNED Diff Path Review May foll Sodium 136 Potassium 5.1 Chloride 103 Carbon Dioxide 28.0 Anion Gap 5 BUN 28 H Creatinine 1.69 H Estim Creat Clear Calc 30.15 Est GFR (MDRD) Af Amer 38 L Est GFR (MDRD) Non-Af 31 L BUN/Creatinine Ratio 16.6 Glucose 295 H Lactic Acid 3.0 H* Calcium 8.3 L Magnesium 1.4 L Troponin I High Sens 9 Urine Color Yellow Urine Clarity Sl. Cloudy Urine pH 6.0 Ur Specific [place] 1.015 Urine Protein 30 H Urine Glucose (UA) 1000 H Urine Ketones Negative Urine Occult Blood 10 H Urine Nitrite Negative Urine Bilirubin Negative Urine Urobilinogen Normal Ur Leukocyte Esterase 100 H Urine RBC 0-5 SEEN Urine WBC 25-50 SEEN Ur Squamous Epith Cells 0-5 SEEN Urine Bacteria 2+ Urine Mucus 0 SEEN Radiography Diagnostic Testing: Clinical Impression(s) from Imaging Studies Brain CT 01/24/23 14:01 IMPRESSION: Chronic involutional changes of the brain. No acute hemorrhage Electronically Signed: Franky Pope MD at 15:06 EST , Chest X-Ray 01/24/23 14:50 IMPRESSION: Small left pleural effusion without a superimposed infiltrate Electronically Signed: Franky Pope MD at 15:06 EST , EKG Initial EKG: Attestation: I personally reviewed and interpreted this EKG as follows: Interpretation: Sinus Rhythm and No Acute Injury Pattern Comments: Normal sinus rhythm at 92 bpm Low-voltage QRS, no STEMI <Robert Blue MD - Last Filed: 01/24/23 19:20> [facility] Narrative Medical decision making narrative: History gathered from: Patient and family member Patient had a 30-minute episode of altered mental status where she was awake but not responding appropriately. She is now back to baseline. She appears well and nontoxic. BP is 90/55 with otherwise normal vital signs. She has dry mucous membranes with an otherwise benign exam. She is fully alert and oriented and neurologically intact. Her pulse ox dropped transiently she was placed on 2 L nasal cannula but repeat pulse ox is normal and she was weaned to room air. She does not feel short of breath and denies chest pain. Labs show pancytopenia with WBC of 4.0, hemoglobin 9.3, platelets 102. Lactate is 3.0. She has normal electrolytes with BUN of 28, creatinine 1.69. Magnesium slightly low at 1.4. She no recent labs in our system. She showed me her MyChart and labs from 01/12/2023 are listed below. She does have new neutropenia and acute kidney injury today which I suspect is from dehydration. UA is consistent with UTI. It was cultured and she was treated with IV fluids and Rocephin. Blood pressure has improved after fluids. Case was discussed with the hospitalist for admission. Differential: Electrolyte abnormality, UTI, TIA among others 01/12/2023 labs WBC 7.45 Hgb 10.3 PLT 163 BUN 24 CR 1.07 NA [address] Blue: I have personally performed a face to face assessment of the patient and have reviewed the GABBIE Note. I performed a substantive portion of the visit including all aspects of the following. My tristan findings include: History is confusion, staring off into space, history of carcinoma with radiation therapy and chemotherapy. Exam is afebrile. Vital signs noted. Regular rate and rhythm. Lungs clear to auscultation bilaterally. Abdomen soft and nontender with normal active bowel sounds. Neurological examination nonfocal and nonlateralizing. Medical Decision Making: Check labs. Check UA. Antibiotics. Observation. Other additions or changes: [None] History & Record Review Discussion w/independent historian: Patient Additional record(s) reviewed:: Prior ED visit Lab Data Labs: Laboratory Results - last 24 hr 01/24/23 01/24/23 14:42 15:58 WBC 4.0 L RBC 2.99 L Hgb 9.3 L Hct 30.0 L MCV 100.3 H MCH 31.1 MCHC 31.0 L RDW Std Deviation 48.8 H RDW Coeff of [place] 13.2 Plt Count 102 L MPV 9.8 Immature Gran % (Auto) 0.200 Neut % (Auto) 79.7 H Lymph % (Auto) 11.7 L [place] % (Auto) 7.2 Eos % (Auto) 1.0 Baso % (Auto) 0.2 Absolute Neuts (auto) 3.2 Absolute Lymphs (auto) 0.47 L Nucleated RBC % 0 Differential Comment SCANNED Diff Path Review May foll Sodium 136 Potassium 5.1 Chloride 103 Carbon Dioxide 28.0 Anion Gap 5 BUN 28 H Creatinine 1.69 H Estim Creat Clear Calc 30.15 Est GFR (MDRD) Af Amer 38 L Est GFR (MDRD) Non-Af 31 L BUN/Creatinine Ratio 16.6 Glucose 295 H Lactic Acid 3.0 H* Calcium 8.3 L Magnesium 1.4 L Troponin I High Sens 9 Urine Color Yellow Urine Clarity Sl. Cloudy Urine pH 6.0 Ur Specific [place] 1.015 Urine Protein 30 H Urine Glucose (UA) 1000 H Urine Ketones Negative Urine Occult Blood 10 H Urine Nitrite Negative Urine Bilirubin Negative Urine Urobilinogen Normal Ur Leukocyte Esterase 100 H Urine RBC 0-5 SEEN Urine WBC 25-50 SEEN Ur Squamous Epith Cells 0-5 SEEN Urine Bacteria 2+ Urine Mucus 0 SEEN Radiography Diagnostic Testing: Clinical Impression(s) from Imaging Studies Brain CT 01/24/23 14:01 IMPRESSION: Chronic involutional changes of the brain. No acute hemorrhage Electronically Signed: rFanky Pope MD at 15:06 EST , Chest X-Ray 01/24/23 14:50 IMPRESSION: Small left pleural effusion without a superimposed infiltrate Electronically Signed: Franky Pope MD at 15:06 EST , Discharge Plan Dx/Rx/DC Orders Clinical Impression: Acute kidney injury, Acute hypotension, Acute dehydration, History of cancer of uterus, Acute UTI, Hypomagnesemia, Pancytopenia Disposition Disposition: Acute Care Hospital [facility] Discharge Date/Time: 01/24/23 19:02
[2023-01-24] MEDS: 0.9% Normal Saline (1000mL) 1,000 ML 1000 ML IV (14:23)
--- NOTE | 2023-01-24 14:50 | RAD_ITS ---
STUDY: X-RAY CHEST REASON FOR EXAM: Female, 77 years old. weakness TECHNIQUE: Single AP portable view of the chest. COMPARISON: 05/05/2020 FINDINGS: Satisfactory appearance of a left subclavian port The lungs are clear and expanded. There is blunting of the left costophrenic angle suggesting small left pleural effusion Normal size heart. Normal mediastinum and sharon. Normal visualized pulmonary arteries. Normal visualized aortic arch and descending thoracic aorta. Normal visualized thoracic spine. Normal visualized ribs, clavicles, and shoulders. There is no demonstrated abnormality of the visualized soft tissue structures of the upper abdomen. RAD/Chest 1 View (Portable) IMPRESSION: Small left pleural effusion without a superimposed infiltrate Electronically Signed: Franky Pope MD at 15:06 EST ,
[2023-01-24 14:51] LABS: Absolute Lymphocyte Count 0.47 X10^3/uL (0.83-4.51); Absolute Neutrophil Count 3.2 X10^3/uL (2.0-7.7); Basophil# 0.01 X10^3/uL; Basophil% 0.2 % (0-1); Eosinophil# 0.04 X10^3/uL; Hemoglobin 9.3 g/dL (12.0-15.0); Lymphocyte # 0.47 X10^3/ul (0.83-4.51); Lymphocyte % 11.7 % (19-41); Mean Corpuscular Hgb 31.1 pg (27.0-32.0); Mean Corpuscular Volume 100.3 fL (81-99); Mean Platelet Vol. 9.8 fl (6.2-12.0); Monocyte# 0.29 X10^3/uL; Monocyte% 7.2 % (0-10); NRBC Flagged by Analyzer 0 % (0-5); Neutrophil # 3.19 X10^3/uL (2.7-7.7); Neutrophil % 79.7 % (47-70); POSITIVE DIFFERENTIAL YES; Platelet Count 102 K/mm3 (150-450); RBC Distribution Width CV 13.2 % (11.6-14.6); RBC Distribution Width SD 48.8 fl (35.1-43.9); Red Blood Count 2.99 M/mm3 (4.2-5.4)
[2023-01-24 14:52] LABS: Differential Indicated SCAN CRITERIA MET
[2023-01-24 15:06] LABS: Differential Comment SCANNED
[2023-01-24 15:14] LABS: Anion Gap 5 (5-15); BUN 28 mg/dL (7-18); BUN/Creat Ratio 16.6 RATIO (10-20); Calcium,Total 8.3 mg/dL (8.5-10.1); Chloride 103 mmol/L (98-107); Creatinine, Serum 1.69 mg/dL (0.55-1.02); EST Glomerular Filtration Rate 31 mL/min (>60); Est Glom Filt Rate - Afr Amer 38 mL/min (>60); Estimated Creatinine Clearance 30.15 ml/min; Glucose 295 mg/dL (74-106); Magnesium 1.4 mg/dL (1.6-2.6); Potassium 5.1 mmol/L (3.5-5.1); Sodium Level 136 mmol/L (136-145); Troponin-I HS 9 pg/mL (3.0-54.0)
[2023-01-24 15:22] VITALS: BP 108/70; PULSE 88; RESP 12; O2SAT 98
[2023-01-24 16:01] LABS: Mucous, Urine 0 SEEN /hpf (<or=2+)
[2023-01-24 16:09] LABS: Color, Urine Yellow (Yellow); Glucose, Dipstick 1000 mg/dl (Normal); Ketone-Dipstick Negative (Negative); Leukocyte Esterase-Dipstick 100 /ul (Negative); Nitrite-Dipstick Negative (Negative); Occult Blood-Urine 10 /ul (Negative); Protein-Dipstick 30 mg/dl (Negative); Specific Gravity, Urine 1.015 (1.002-1.030); Urine Bilirubin Dipstick Negative (Negative); Urine Clarity Sl. Cloudy (Clear); Urine Urobilinogen Normal (Normal)
[2023-01-24 16:25] LABS: Bacteria 2+ /hpf (None Seen); Red Blood Cells-Urine 0-5 SEEN /hpf (0-5); Squamous Epithelial Cells - UA 0-5 SEEN /hpf (5-10); White Blood Cells 25-50 SEEN /hpf (0-5)
[2023-01-24] MEDS: Magnesium Chloride 64 MG Delay Rel.Tablet 128 MG PO (16:46)
[2023-01-24] MEDS: Ceftriaxone 1 GM/50 ML BAG IV (16:47)
[2023-01-24 16:58] VITALS: BP 100/75; PULSE 90; RESP 20; TEMP 36.7; O2SAT 89
[2023-01-24 17:00] VITALS: BP 126/61; PULSE 89; RESP 18; TEMP 36.7; O2SAT 92
--- NOTE | 2023-01-24 17:20 | PCM.HP.STD ---
[facility] - General General Date of Admission: 01/24/23 Date of Service: 01/24/23 HPI Geraldine HOOKER, is a 77 F with past medical history of stage IIIc endometrial carcinoma with squamous differentiation, hypertension, hyperlipidemia, GERD, type 2 diabetes, nonischemic cardiomyopathy ejection fraction 45%. For her chemotherapy she is on adjuvant therapy with carboplatin, paclitaxel and pembrolizumab She was brought to the ED with symptoms of altered mental status this morning. This was noted by her sister who found her less responsive and there was some staring spells. This lasted for about 30 minutes, and she has had similar episodes in the past. In the ED she was found to have a WBC of 4, hemoglobin 9.3, platelet of 102. Lactate was 3.0. With a BUN of 28 and creatinine 1.69. Her UA shows 25-50 WBCs, leuk esterase positive, nitrate negative, with 2+ bacteria. [facility] Medical History (Updated 01/24/23 @ 17:53 by JONAH Oliveira) Benign neoplasm of colon Chest pain Cholecystitis CKD (chronic kidney disease) stage 3, GFR 30-59 ml/min Diabetes Endometrial cancer GERD (gastroesophageal reflux disease) Hypercholesteremia Hypertension Neuropathy Home Medications glimepiride 4 mg tablet 1 tab PO BIDCM diabetes 05/05/20 [History Last Taken 05/05/20] metformin 500 mg tablet 2 tab PO BID #120 tabs 05/06/20 [Rx Last Taken Unknown] amitriptyline 50 mg tablet 50 mg PO QHS 12/23/22 [History Last Taken Unknown] atorvastatin 40 mg tablet 40 mg PO QHS 12/23/22 [History Last Taken Unknown] dulaglutide 3 mg/0.5 mL subcutaneous pen injector (Trulicity) 3 mg subcut QWEEK 12/23/22 [History Last Taken Unknown] gabapentin 100 mg capsule 100 mg PO BID 12/23/22 [History Last Taken Unknown] carvedilol 3.125 mg tablet 3.125 mg PO BID #60 tabs 12/29/22 [Rx Last Taken Unknown] empagliflozin 10 mg tablet (Jardiance) 10 mg PO DAILY #30 tabs 12/29/22 [Rx Last Taken Unknown] lisinopril 2.5 mg tablet 2.5 mg PO DAILY #30 tabs 12/29/22 [Rx Last Taken Unknown] magnesium chloride 71.5 mg (magnesium chloride) tablet,delayed release (Slow-Mag) 71.5 mg PO BID 12/29/22 [History Last Taken Unknown] ondansetron HCl 8 mg tablet 8 mg PO Q12H PRN nausea 12/29/22 [History Last Taken Unknown] aspirin 81 mg tablet,delayed release (Adult Low Dose Aspirin) 81 mg PO DAILY 01/24/23 [History Last Taken Unknown] Allergy/AdvReac Type Severity Reaction Status Date / Time No Known Allergies Allergy Verified 01/24/23 14:23 Family History (Updated 12/23/22 @ 14:30 by Yelena Yousif) Father Myocardial infarction Mother Heart disease irregular heart rate Colon cancer Surgical History (Updated 12/23/22 @ 14:41 by Yelena Yousif) History of total left knee replacement (TKR) (~01/2011) History of total right knee replacement (TKR) (~05/11/11) Hx laparoscopic cholecystectomy Hx of cataract surgery Hx of hysterectomy, total Social History (Updated 12/23/22 @ 14:31 by Yelena Yousif) Smoking Status: Former smoker how long ago did patient quit smokin alcohol intake: never substance use type: does not use ROS Review of Systems ROS Unobtainable: Denies due to encephalopathy, due to endotracheal tube, due to mental condition, due to mental status or other Constitutional Constitutional: Denies anorexia, change in weight, chills, fatigue, fever(s), malaise, night sweats, weakness or other Eyes Eyes: Denies blurry vision, change in eye color, change in vision, discharge from eye(s), double vision, erythema, eye pain, loss of vision or other ENT HEENT: Denies abnormal hearing, dysphagia, ear pain, epistaxis, headache(s), hearing loss, nasal congestion, nasal discharge, post nasal drip, sinus pressure, sore throat or other Respiratory/Chest Respiratory/Chest: Denies cough, dyspnea, excessive phlegm production, hemoptysis, productive cough, shortness of breath at rest, shortness of breath with exertion, wheezing or other Gastrointestinal Gastrointestinal: Denies abdominal pain, coffee ground emesis, constipation, diarrhea, dyspepsia, hematemesis, hematochezia, loose stools, melena, nausea, vomiting or other Genitourinary Genitourinary: Reports burning urination Musculoskeletal Musculoskeletal: Denies arthralgias, back pain, joint pain, joint stiffness, joint swelling, myalgias, neck pain or other Neurologic Neurologic: Denies abnormal gait, abnormal speech, confusion, disequilibrium, dizziness, focal weakness, headache(s), numbness, paresthesias, seizure-like activity, seizures, syncope, tingling, tremor(s) or other Psychiatric Psychiatric: Denies anxiety, depression, homicidal ideation, suicidal ideation or other Endocrine Endocrinology: Denies change in body appearance, cold intolerance, excessive sweating, heat intolerance, polydipsia, polyuria or other Hematologic/Lymphatic Hematologic/Lymphatic: Denies anemia, easy bleeding, easy bruising, lymphadenopathy or other Allergic/Immunologic Allergic/Immunologic: Denies rhinitis, hives, eczemia, asthma or other Vital Signs Vital Signs Vital Signs: 01/24/23 13:30 01/24/23 15:22 01/24/23 16:58 Temperature 97.3 F L 98.1 F Temperature Source Oral Pulse Rate 88 88 90 Respiratory Rate 16 12 20 H Blood Pressure 90/55 L 108/70 100/75 Blood Pressure Mean 66 82 83 Pulse Ox 97 98 89 Oxygen Delivery Method Room Air Nasal Cannula Oxygen Flow Rate (L/min) 2 01/24/23 17:00 Temperature 98.1 F Temperature Source Oral Pulse Rate 89 Respiratory Rate 18 Blood Pressure 126/61 H Blood Pressure Mean 82 Pulse Ox 92 Oxygen Delivery Method Room Air Oxygen Flow Rate (L/min) Weight Weight: 277 lb 12.519 oz Body Mass Index (BMI) 39.8 Physical Exam Const alert and oriented x3 HEENT normocephalic Eyes PERRL Neck no lymphadenopathy Resp normal respiratory effort Cardio regular rate and regular rhythm GI normal to inspection, nondistended, normoactive bowel sounds Extremity normal to inspection Neuro oriented x3 Results Medical Records Data Attestation: I reviewed the patient's medical records Lab / Micro Data Attestation: I reviewed the patient's lab results. Lab results narrative: Pancytopenia 01/24/23 14:42 01/24/23 14:42 Labs: Laboratory Results - last 24 hr 01/24/23 14:42: WBC 4.0 L, RBC 2.99 L, Hgb 9.3 L, Hct 30.0 L, MCV 100.3 H, MCH 31.1, MCHC 31.0 L, RDW Std Deviation 48.8 H, RDW Coeff of [place] 13.2, Plt Count 102 L, MPV 9.8, Immature Gran % (Auto) 0.200, Neut % (Auto) 79.7 H, Lymph % (Auto) 11.7 L, [place] % (Auto) 7.2, Eos % (Auto) 1.0, Baso % (Auto) 0.2, Absolute Neuts (auto) 3.2, Absolute Lymphs (auto) 0.47 L, Nucleated RBC % 0, Differential Comment SCANNED, Diff Path Review June, Sodium 136, Potassium 5.1, Chloride 103, Carbon Dioxide 28.0, Anion Gap 5, BUN 28 H, Creatinine 1.69 H, Estim Creat Clear Calc 30.15, Est GFR (MDRD) Af Amer 38 L, Est GFR (MDRD) Non-Af 31 L, BUN/Creatinine Ratio 16.6, Glucose 295 H, Lactic Acid 3.0 H*, Calcium 8.3 L, Magnesium 1.4 L, Troponin I High Sens 9 01/24/23 15:58: Urine Color Yellow, Urine Clarity Sl. Cloudy, Urine pH 6.0, Ur Specific [place] 1.015, Urine Protein 30 H, Urine Glucose (UA) 1000 H, Urine Ketones Negative, Urine Occult Blood 10 H, Urine Nitrite Negative, Urine Bilirubin Negative, Urine Urobilinogen Normal, Ur Leukocyte Esterase 100 H, Urine RBC 0-5 SEEN, Urine WBC 25-50 SEEN, Ur Squamous Epith Cells 0-5 SEEN, Urine Bacteria 2+, Urine Mucus 0 SEEN Imagaing Radiology Impression Brain CT 01/24/23 14:01 IMPRESSION: Chronic involutional changes of the brain. No acute hemorrhage Electronically Signed: Franky Pope MD at 15:06 EST , Chest X-Ray 01/24/23 14:50 IMPRESSION: Small left pleural effusion without a superimposed infiltrate Electronically Signed: Franky Pope MD at 15:06 EST , Assessment & Plan Assessment/Plan (1) Acute UTI: PLAN: Plan Summary: 77-year-old female with history of endometrial carcinoma on chemotherapy complicated by pancytopenia, presents with altered mental status since last few days and was found to have UTI at the time of presentation. 1. AMS: This is likely related to her urosepsis. Will start her on IV Zosyn given her immunocompromise status. Fluid therapy, and continue to monitor her vitals. 2. Urosepsis: Blood cultures and urine cultures are pending, she has UTI based on her urinalysis. Continue IV Zosyn monitor closely. 3. Endometrial carcinoma: Presently on chemoradiation therapy at [facility], continue as an outpatient 4. Type 2 diabetes: HbA1c levels tomorrow, sliding scale insulin while in the hospital. 5. Nonischemic cardiomyopathy: Ejection fraction 45%, follows up with cardiology here at [facility]. Continue Coreg for now. Her presentation is less likely suggestive of arrhythmias. EKG was normal 6. JACY on CKD: Likely related to her acute infection. Continue to monitor after fluid therapy.
--- NOTE | 2023-01-24 17:34 | NURSING ---
MED SURG SMITH JACY, UTI
[2023-01-24 18:48] LABS: Reflex Lactate? Y
[2023-01-24 18:58] VITALS: BMI 41.8
[2023-01-24 19:38] VITALS: BP 122/70; PULSE 100; RESP 18; TEMP 37.4; O2SAT 93
[2023-01-24] MEDS: 0.9% Normal Saline (1000mL) 1,000 ML 75 ML IV (19:55)
[2023-01-24 20:09] LABS: Lactic Acid 1.7 mmol/L (0.4-1.9)
[2023-01-24] MEDS: Gabapentin 100 MG Capsule PO (22:40)
[2023-01-24] MEDS: Heparin Injection (Vial) 5,000 UNIT/ML VIAL 5000 UNIT SC (22:41)
[2023-01-24] MEDS: Nystatin Powder 15gm Bottle 1 APPLIC TOPICAL (22:41)
[2023-01-24] MEDS: 0.9% Normal Saline (250mL Bag) 250 ML 15 ML IV (22:42)
[2023-01-24] MEDS: Amitriptyline 25 MG Tablet 50 MG PO (22:42)
[2023-01-24] MEDS: Menthol/Lanolin/Calamine/Znox 113 GM Tube 1 APPLIC TOPICAL (22:42)
[2023-01-24] MEDS: Piperacil/Tazobactam 3.375 GM in 0.9% Normal Saline (50mL MB+) 50 ML IV (22:42)
[2023-01-24] MEDS: Carvedilol 3.125 MG TABLET PO (22:43)
[2023-01-24] MEDS: Atorvastatin Calcium 40 MG Tablet PO (22:43)
[2023-01-24 23:13] VITALS: BP 126/70; PULSE 100; RESP 16; TEMP 37; O2SAT 94
[2023-01-25 00:11] LABS: Bedside Glucose 143 mg/dL (74-106)
[2023-01-25 02:37] VITALS: BP 118/51; PULSE 100; RESP 18; TEMP 37.3; O2SAT 94
[2023-01-25] MEDS: Piperacil/Tazobactam 3.375 GM in 0.9% Normal Saline (50mL MB+) 50 ML IV ×3 (05:19→21:06)
[2023-01-25 06:34] LABS: Bedside Glucose 160 mg/dL (74-106)
[2023-01-25 06:45] LABS: Absolute Lymphocyte Count 0.73 X10^3/uL (0.83-4.51); Absolute Neutrophil Count 3.1 X10^3/uL (2.0-7.7); Basophil# 0.02 X10^3/uL; Basophil% 0.4 % (0-1); Eosinophil# 0.07 X10^3/uL; Eosinophils% 1.5 % (0-5); Hematocrit 26.5 % (37-47); Hemoglobin 8.4 g/dL (12.0-15.0); Lymphocyte # 0.73 X10^3/ul (0.83-4.51); Mean Corp Hgb Conc 31.7 g/dL (32-36); Mean Corpuscular Hgb 31.7 pg (27.0-32.0); Mean Platelet Vol. 10.5 fl (6.2-12.0); Monocyte# 0.62 X10^3/uL; Monocyte% 13.6 % (0-10); NRBC Flagged by Analyzer 0 % (0-5); Neutrophil % 68.3 % (47-70); POSITIVE COUNT YES; Platelet Count 95 K/mm3 (150-450); RBC Distribution Width CV 13.4 % (11.6-14.6); RBC Distribution Width SD 49.6 fl (35.1-43.9); Red Blood Count 2.65 M/mm3 (4.2-5.4); White Blood Count 4.6 K/mm3 (4.4-11.0)
[2023-01-25 07:00] LABS: International Normalized Ratio 1.2; Prothrombin Time (Protime)PT. 14.8 SECONDS (11.7-14.9)
[2023-01-25 07:15] LABS: ALB/GLOB Ratio 0.9 RATIO (0.9-2.4); AST(SGOT) 18 U/L (15-37); Alanine Aminotransfer ALT/SGPT 32 U/L (13-56); Albumin, Serum 2.8 g/dL (3.2-5.0); Alkaline Phosphatase 53 U/L (45-117); Anion Gap 5 (5-15); BUN 27 mg/dL (7-18); BUN/Creat Ratio 18.5 RATIO (10-20); Chloride 105 mmol/L (98-107); Creatinine, Serum 1.46 mg/dL (0.55-1.02); EST Glomerular Filtration Rate 37 mL/min (>60); Est Glom Filt Rate - Afr Amer 45 mL/min (>60); Estimated Creatinine Clearance 32.55 ml/min; Glucose 166 mg/dL (74-106); Magnesium 1.5 mg/dL (1.6-2.6); Phosphorus 2.4 mg/dL (2.5-4.9); Potassium 4.2 mmol/L (3.5-5.1); Protein, Total 5.8 g/dL (6.4-8.2); Sodium Level 136 mmol/L (136-145); Thyroid Stim Hormone (TSH) 0.29 uIU/mL (0.358-3.74)
[2023-01-25] MEDS: Nystatin Powder 15gm Bottle 1 APPLIC TOPICAL ×2 (07:51→20:29)
[2023-01-25] MEDS: Carvedilol 3.125 MG TABLET PO ×2 (07:51→16:56)
[2023-01-25] MEDS: Aspirin E.C. 81 MG Tablet PO (07:51)
[2023-01-25] MEDS: Heparin Injection (Vial) 5,000 UNIT/ML VIAL 5000 UNIT SC ×2 (07:51→20:29)
[2023-01-25] MEDS: Empagliflozin 10 MG Tablet PO (07:51)
[2023-01-25] MEDS: Menthol/Lanolin/Calamine/Znox 113 GM Tube 1 APPLIC TOPICAL ×2 (07:52→20:27)
[2023-01-25] MEDS: Gabapentin 100 MG Capsule PO ×2 (07:56→20:28)
[2023-01-25 09:00] VITALS: BP 119/61; PULSE 103; RESP 16; TEMP 36.9; O2SAT 92
--- NOTE | 2023-01-25 09:05 | PCM.PN.HOSP ---
Reason for Visit Reason for Visit: Diagnoses Urinary tract infection, site not specified (01/24/23) Subjective Subjective Patient feeling much better today compared to yesterday, mental status improving Objective Data Objective Data Vital Signs: Vital Signs Temp Pulse Resp BP Pulse Ox O2 Del Method O2 Flow Rate 98.4 F 103 H 16 119/61 92 Room Air 2 01/25/23 09:00 01/25/23 09:00 01/25/23 09:00 01/25/23 09:00 01/25/23 09:00 01/25/23 09:00 01/25/23 02:37 Oxygen Flow Rate (L/min) 2 Oxygen Delivery Method Room Air Weight: 124.919 kg Body Mass Index (BMI) 41.8 Intake & Output: Intake and Output for Last 24 Hours 01/23/23 01/24/23 01/25/23 23:59 23:59 23:59 Intake Total 1050 / 1050 50 / 50 Balance 1050 / 1050 50 / 50 Lab / Micro Data 01/25/23 06:20 01/25/23 06:20 Labs: Laboratory Results - last 24 hr 01/24/23 14:42: WBC 4.0 L, RBC 2.99 L, Hgb 9.3 L, Hct 30.0 L, MCV 100.3 H, MCH 31.1, MCHC 31.0 L, RDW Std Deviation 48.8 H, RDW Coeff of Casper 13.2, Plt Count 102 L, MPV 9.8, Immature Gran % (Auto) 0.200, Neut % (Auto) 79.7 H, Lymph % (Auto) 11.7 L, [place] % (Auto) 7.2, Eos % (Auto) 1.0, Baso % (Auto) 0.2, Absolute Neuts (auto) 3.2, Absolute Lymphs (auto) 0.47 L, Nucleated RBC % 0, Differential Comment SCANNED, Diff Path Review June, Sodium 136, Potassium 5.1, Chloride 103, Carbon Dioxide 28.0, Anion Gap 5, BUN 28 H, Creatinine 1.69 H, Estim Creat Clear Calc 30.15, Est GFR (MDRD) Af Amer 38 L, Est GFR (MDRD) Non-Af 31 L, BUN/Creatinine Ratio 16.6, Glucose 295 H, Lactic Acid 3.0 H*, Calcium 8.3 L, Magnesium 1.4 L, Troponin I High Sens 9 01/24/23 15:58: Urine Color Yellow, Urine Clarity Sl. Cloudy, Urine pH 6.0, Ur Specific Friant 1.015, Urine Protein 30 H, Urine Glucose (UA) 1000 H, Urine Ketones Negative, Urine Occult Blood 10 H, Urine Nitrite Negative, Urine Bilirubin Negative, Urine Urobilinogen Normal, Ur Leukocyte Esterase 100 H, Urine RBC 0-5 SEEN, Urine WBC 25-50 SEEN, Ur Squamous Epith Cells 0-5 SEEN, Urine Bacteria 2+, Urine Mucus 0 SEEN 01/24/23 19:32: Lactic Acid 1.7 01/24/23 22:57: POC Glucose 143 H 01/25/23 06:15: POC Glucose 160 H 01/25/23 06:20: WBC 4.6, RBC 2.65 L, Hgb 8.4 L, Hct 26.5 L, MCV 100.0 H, MCH 31.7, MCHC 31.7 L, RDW Std Deviation 49.6 H, RDW Coeff of Casper 13.4, Plt Count 95 L, MPV 10.5, Immature Gran % (Auto) 0.200, Neut % (Auto) 68.3, Lymph % (Auto) 16.0 L, [place] % (Auto) 13.6 H, Eos % (Auto) 1.5, Baso % (Auto) 0.4, Absolute Neuts (auto) 3.1, Absolute Lymphs (auto) 0.73 L, Nucleated RBC % 0, PT 14.8, INR 1.2, Sodium 136, Potassium 4.2, Chloride 105, Carbon Dioxide 26.0, Anion Gap 5, BUN 27 H, Creatinine 1.46 H, Estim Creat Clear Calc 32.55, Est GFR (MDRD) Af Amer 45 L, Est GFR (MDRD) Non-Af 37 L, BUN/Creatinine Ratio 18.5, Glucose 166 H, Calcium 8.0 L, Phosphorus 2.4 L, Magnesium 1.5 L, Total Bilirubin 0.30, Direct Bilirubin 0.10, AST 18, ALT 32, Alkaline Phosphatase 53, Total Protein 5.8 L, Albumin 2.8 L, Globulin 3.0, Albumin/Globulin Ratio 0.9, TSH 0.29 L Radiography Diagnostic Testing: Radiology Impression Brain CT 01/24/23 14:01 IMPRESSION: Chronic involutional changes of the brain. No acute hemorrhage Electronically Signed: Franky Pope MD at 15:06 EST , Chest X-Ray 01/24/23 14:50 IMPRESSION: Small left pleural effusion without a superimposed infiltrate Electronically Signed: Franky Pope MD at 15:06 EST , Physical Exam Narrative General: Alert, oriented, no apparent distress HEENT: Atraumatic, normocephalic Eyes: Anicteric, normal conjunctiva, extraocular movements grossly intact Neck: Supple Respiratory: Clear to auscultation bilaterally, normal respiratory effort Cardiovascular: Regular rate GI: Soft, nontender, nondistended Extremities: No significant pitting edema Musculoskeletal: Moving all extremities Neuro: No overt focal neurological deficits Skin: No rashes appreciated Psych: Cooperative Assessment & Plan Assessment/Plan (1) Sepsis: (2) Acute UTI: PLAN: Plan #Sepsis secondary to acute UTI -UA suggestive of UTI -Cultures pending, blood cultures obtained after antibiotics given this will likely be lower yield however urine culture still pending -Continue Zosyn -Patient meets sepsis criteria given initial blood pressure 90/55 with a MAP of 66, platelets of 102 (and subsequently 95), and creatinine of 1.6 in addition to her altered mental status -Patient did not receive the full 30 cc/kg of fluids on presentation, suspect this may be due to her history of nonischemic cardiomyopathy, did improve with antibiotics and with a liter of IV fluids as well as maintenance fluids so we will continue present management while awaiting cultures #Encephalopathy, suspect metabolic secondary to UTI -altered x1 day and UA suggestive of UTI -Treat underlying etiology #JACY on suspected CKD stage III unclear subtype -Creatinine 1.69 on presentation, downtrending, 1.46 today -Avoid nephrotoxic agents -Patient has been continued on gentle hydration with stop date #Type 2 diabetes mellitus -Glucose checks and sliding scale insulin #GERD -Continue PPI #Hypertension -Continue Coreg now that blood pressure is improved with antibiotics #History of nonischemic cardiomyopathy -Ejection fraction 45%, follows up with cardiology here at [facility]. Continue Coreg for now. #Morbid obesity -BMI 41.9 kg/m? -Complicates treatment, prognosis, outcomes -Recommend weight loss and lifestyle changes #Stage IIIc endometrial carcinoma -on adjuvant therapy with carboplatin, paclitaxel and pembrolizumab #DVT ppx: Heparin subcu Georgia Romero MD Time spent in the patient's overall evaluation,decision-making process, review of diagnostic data, adjustment of management, discussion with other providers, nursing nursing and ancillary staff involved in patient's care documentation, 36 Minutes Charges/Coding Visit Charges Inpatient E&M: 33777 Subs Hosp L2
[2023-01-25] MEDS: 0.9% Normal Saline (1000mL) 1,000 ML 75 ML IV (09:19)
[2023-01-25] MEDS: Magnesium Sulfate 4gm/100mL 4 GM/100 ML IV.SOLN. IV (10:38)
[2023-01-25] MEDS: Sodium Phosphate/Na Biphos 15 MMOL in 0.9% Normal Saline (250mL Bag) 250 ML 125 MMOL IV (10:39)
[2023-01-25 12:14] LABS: Bedside Glucose 180 mg/dL (74-106)
[2023-01-25 13:26] LABS: Pathologist Review Reviewed
--- NOTE | 2023-01-25 14:30 | CASEMGMT ---
RN?CM?METER CALIBRATOR?CM?to room to meet with patient for initial transition planning/care coordination?assessment.?RN?CM?introduced self and role at [facility].? Pt voices understanding and consents to?assessment?at this time.? Pt resting in bed in no distress at this time.? Pt is A/O at this time and answers all questions appropriately.?? Care providers, pharmacy, and demographics verified/updated at this time. PCP: Dr Van Specialists: Dr Hernandes-oncology. Pt states she also sees Dr Rodriguez-oncologist @ [facility] and sees a radiation oncologist @ [facility] Preferred Pharmacy: [facility] Retail Insurance: [employer] Prescription Benefit:?Yes Living Will/HPOA:?Pt states she has done LW and HCPOA, who is her sister, Milagro. LNOK: Sister/Milagro MILLS Living Arrangements: Lives w/her sister in a basement apartment--no steps to enter from outside. Independent w/ADL's and manages her own medications. They both share home mgnt tasks. Transportation:?Pt states she has not been driving recently. Her sister provides transportation. DME: ?States has the following DME:?toilet side-rails, walker, functioning glucometer w/supplies. ?Pt states no need for further DME at this time.? HHC/SNF: No hx of either. Pt wishes to discharge home and denies need for HHC at this time. She was made aware if she changes her mind once returning home, to f/u with her PCP. She voices understanding. Pt wishes to return home and states has no concerns with going home at time of discharge.? CM?to follow for any discharge planning/needs.? Pt voices no concerns/needs at this time.? Advised pt to ask for?CM?if any questions/concerns/needs arise.? Voices understanding. PLAN:??Home Feliz RAMIREZN?RN?CM
[2023-01-25 15:08] VITALS: BP 121/64; PULSE 95; RESP 16; TEMP 37.2; O2SAT 94
[2023-01-25] MEDS: Glucerna Shake 120 ML LIQUID PO (16:55)
[2023-01-25 17:16] LABS: Bedside Glucose 160 mg/dL (74-106)
[2023-01-25 19:46] VITALS: BP 137/68; PULSE 99; RESP 18; TEMP 37.7; O2SAT 90
[2023-01-25] MEDS: Acetaminophen 500 MG Tablet 1000 MG PO (20:27)
[2023-01-25] MEDS: Atorvastatin Calcium 40 MG Tablet PO (20:28)
[2023-01-25] MEDS: Amitriptyline 25 MG Tablet 50 MG PO (20:28)
[2023-01-25] MEDS: Insulin Lispro 100 UNIT/ML INSULN.PEN SC (22:09)
[2023-01-25 22:19] LABS: Bedside Glucose 202 mg/dL (74-106)
[2023-01-26 03:30] VITALS: BP 122/73; PULSE 83; RESP 18; TEMP 36.5; O2SAT 91
[2023-01-26] MEDS: Piperacil/Tazobactam 3.375 GM in 0.9% Normal Saline (50mL MB+) 50 ML IV (05:13)
[2023-01-26 07:42] LABS: Bedside Glucose 98 mg/dL (74-106)
[2023-01-26 08:20] LABS: Anion Gap 4 (5-15); BUN 22 mg/dL (7-18); BUN/Creat Ratio 18.6 RATIO (10-20); Calcium,Total 8.5 mg/dL (8.5-10.1); Chloride 108 mmol/L (98-107); Creatinine, Serum 1.18 mg/dL (0.55-1.02); EST Glomerular Filtration Rate 47 mL/min (>60); Est Glom Filt Rate - Afr Amer 57 mL/min (>60); Estimated Creatinine Clearance 40.28 ml/min; Glucose 111 mg/dL (74-106); Potassium 4.3 mmol/L (3.5-5.1); Sodium Level 137 mmol/L (136-145); T4 Free Direct 0.99 ng/dL (0.76-1.46)
[2023-01-26 09:26] VITALS: BP 144/56; PULSE 93; RESP 18; TEMP 37.2; O2SAT 93
[2023-01-26] MEDS: Gabapentin 100 MG Capsule PO (09:53)
[2023-01-26] MEDS: Aspirin E.C. 81 MG Tablet PO ×2 (09:53→09:54)
[2023-01-26] MEDS: Empagliflozin 10 MG Tablet PO (09:53)
[2023-01-26] MEDS: Carvedilol 3.125 MG TABLET PO (09:54)
[2023-01-26] MEDS: Glucerna Shake 120 ML LIQUID PO (09:54)
[2023-01-26] MEDS: Menthol/Lanolin/Calamine/Znox 113 GM Tube 1 APPLIC TOPICAL (09:54)
[2023-01-26] MEDS: Heparin Injection (Vial) 5,000 UNIT/ML VIAL 5000 UNIT SC (09:54)
[2023-01-26] MEDS: Nystatin Powder 15gm Bottle 1 APPLIC TOPICAL (09:55)
[2023-01-26] MEDS: Insulin Lispro 100 UNIT/ML INSULN.PEN SC (11:49)
[2023-01-26 12:09] LABS: Bedside Glucose 174 mg/dL (74-106)
--- NOTE | 2023-01-26 13:51 | DCINST_ITS ---
Discharge Instructions Diet Discharge Diet: - (-DASH diet, 3000 mg sodium restriction, 2 L fluid restriction) Activity Discharge Activity: Use Walker Follow Up Care Test Results: Test results from this visit will be discussed in further detail at your follow- up appointment, if applicable. Discharge Plan Admission Admit Date/Time: 01/24/23 17:21 Primary Reason for Your Visit: Altered mental status Attending Provider: Georgia Romero Primary Care Provider: Deven Van Consulting Providers: Abraham Edgar Instructions Patient Instructions: ED Fall Prevention Additional Instructions / Restrictions: DISCHARGE INSTRUCTIONS PLEASE READ *Please take this with you to your next doctors appointment* -Given your glucose was fairly well controlled while in the hospital your glimepiride will be held on discharge, this will likely need to be resumed as y ou resume your regular activities but would defer to your primary physician on optimal timing to resume -You will also be discharged on 5 more days of an antibiotic, Levaquin, that you will take daily for your urinary tract infection -Please call your primary care provider's office upon discharge to schedule a hospital follow up within 1 week. -For any concerning signs or symptoms please call 911 or proceed to the nearest emergency department Discharge Orders/Prescriptions Prescriptions: New levofloxacin 750 mg tablet 750 mg PO DAILY 5 Days Qty: 5 0RF Continued amitriptyline 50 mg tablet 50 mg PO QHS gabapentin 100 mg capsule 100 mg PO BID Trulicity 3 mg/0.5 mL pen injector 3 mg subcut QWEEK atorvastatin 40 mg tablet 40 mg PO QHS Patient Comments: TAKE 1 TABLET BY MOUTH ONCE DAILY AT BEDTIME FOR CHOLESTEROL Slow-Mag 71.5 mg tablet,delayed release (DR/EC) 71.5 mg PO BID ondansetron HCl 8 mg tablet 8 mg PO Q12H PRN (Reason: nausea) metformin 500 MG tablet 2 tab PO BID Qty: 120 0RF aspirin [Adult Low Dose Aspirin] 81 mg tablet,delayed release (DR/EC) 81 mg PO DAILY carvedilol 3.125 mg tablet 3.125 mg PO BID Qty: 60 11RF Rx Instructions: must administer with a meal/food lisinopril 2.5 mg tablet 2.5 mg PO DAILY Qty: 30 11RF Jardiance 10 mg tablet 10 mg PO DAILY Qty: 30 11RF Discontinued glimepiride 4 MG tablet 1 tab PO BIDCM Referrals / Follow Up: Deven Van MD [Primary Care Provider] - Within 1 Week Disposition Disposition (needs filled in before D/C Order can be placed): Home, Self Care
--- NOTE | 2023-01-26 13:58 | DS.PCM_ITS ---
Providers Date of Admission: 01/24/23 Date of Discharge: 01/26/23 Primary Care Physician: Dr. Deven Van MD Reason For Visit: UROSEPSIS Diagnosis Discharge Diagnosis (1) Sepsis: Status: Acute Code(s): A41.9 - Sepsis, unspecified organism (2) Acute UTI: Status: Acute Code(s): N39.0 - Urinary tract infection, site not specified Plan #Sepsis secondary to acute Klebsiella UTI #Encephalopathy, metabolic secondary to UTI #JACY on suspected CKD stage III unclear subtype- jacy resolved #Type 2 diabetes mellitus #GERD #Hypertension #History of nonischemic cardiomyopathy #Morbid obesity #Stage IIIc endometrial carcinoma Medications at Discharge Home Medications metformin 500 mg tablet 2 tab PO BID #120 tabs 05/06/20 amitriptyline 50 mg tablet 50 mg PO QHS 12/23/22 atorvastatin 40 mg tablet 40 mg PO QHS 12/23/22 dulaglutide 3 mg/0.5 mL subcutaneous pen injector (Trulicity) 3 mg subcut QWEEK 12/23/22 gabapentin 100 mg capsule 100 mg PO BID 12/23/22 carvedilol 3.125 mg tablet 3.125 mg PO BID #60 tabs 12/29/22 empagliflozin 10 mg tablet (Jardiance) 10 mg PO DAILY #30 tabs 12/29/22 lisinopril 2.5 mg tablet 2.5 mg PO DAILY #30 tabs 12/29/22 magnesium chloride 71.5 mg (magnesium chloride) tablet,delayed release (Slow- Mag) 71.5 mg PO BID 12/29/22 ondansetron HCl 8 mg tablet 8 mg PO Q12H PRN nausea 12/29/22 aspirin 81 mg tablet,delayed release (Adult Low Dose Aspirin) 81 mg PO DAILY 01/24/23 levofloxacin 750 mg tablet 750 mg PO DAILY 5 days #5 tabs 01/26/23 Hospital Course Summary of Care Provided Minutes Spent on Discharge: 32 Hospital Course: PRICILA HOOKER, is a 77 F with past medical history of stage IIIc endometrial carcinoma with squamous differentiation on chemotherapy, hypertension, hyperlipidemia, GERD, type 2 diabetes, nonischemic cardiomyopathy ejection fraction 45% who presented to [facility] 01[facility]24[facility]23 with altered mental status since the morning. Found to have platelet count of 102 with a lactic of 3, creatinine 1.69 and UA suggestive of UTI. Initially also had a low map. Patient admitted for concerns for sepsis secondary to UTI. She was started on Zosyn and cultures obtained. Patient's JACY and kidney function improved with antibiotics and urine culture grew Klebsiella. Blood cultures were obtained after antibiotics started so while they are still preliminary do not have high suspicion that they will be positive. Patient's generalized weakness also improved and she worked with physical therapy and felt she was at her baseline and was comfortable going home with sister. Mental status back to baseline and patient overall improved. Patient discharged home in stable condition with the following discharge instructions: -Given your glucose was fairly well controlled while in the hospital your glimepiride will be held on discharge, this will likely need to be resumed as you resume your regular activities but would defer to your primary physician on optimal timing to resume -You will also be discharged on 5 more days of an antibiotic, Levaquin, that you will take daily for your urinary tract infection -Please call your primary care provider's office upon discharge to schedule a hospital follow up within 1 week. -For any concerning signs or symptoms please call 911 or proceed to the nearest emergency department Physical Exam Narrative General: Alert, oriented, no apparent distress HEENT: Atraumatic, normocephalic Eyes: Anicteric, normal conjunctiva, extraocular movements grossly intact Neck: Supple Respiratory: Clear to auscultation bilaterally, normal respiratory effort Cardiovascular: Regular rate GI: Soft, nontender, nondistended Extremities: No significant pitting edema Musculoskeletal: Moving all extremities Neuro: No overt focal neurological deficits Skin: No rashes appreciated Psych: Cooperative Medical Records Data Medical Nutrition Assessment Dietitian: Malnutrition Criteria Met Start: 01/25/23 13:26 Freq: Status: Active Protocol: Document 01/25/23 13:26 SLA (Rec: 01/25/23 13:26 SLA Desktop) Nutrition Malnutrition Evidence of Malnutrition Exists Yes Malnutrition (severe): Chronic Evidenced By Suboptimal Energy Intake ( Severe),Weight Loss (Severe) Clinical Problem Chronic Disease or Condition Related Malnutrition Etiology related to cancer treatment and inadequate energy intake Signs/Symptoms as evidenced by pt consuming < 50% of est nutritional needs and 11.7% unintended wt loss x 6 months. Status Active Problem Recommendation Dietitian Recommendations/Changes Continue CHO Control diet Will order 4 oz glucerna shake tid w/ medpass (chocolate preferred) for increased nutrition if consumed. Available if diet education desired by pt prior to d/c home Weight / BMI Weight Weight: 124.919 kg Body Mass Index (BMI) 41.8 ABG / Lab / Microbiology Data 01/25/23 06:20 01/26/23 07:00 Laboratory: Laboratory Results - last 24 hr 01/25/23 16:48: POC Glucose 160 H 01/25/23 21:55: POC Glucose 202 H 01/26/23 06:28: POC Glucose 98 01/26/23 07:00: WBC Cancelled, Corrected WBC Cancelled, RBC Cancelled, Hgb Cancelled, Hct Cancelled, MCV Cancelled, MCH Cancelled, MCHC Cancelled, RDW Std Deviation Cancelled, RDW Coeff of Casper Cancelled, Plt Count Cancelled, MPV Cancelled, Immature Gran % (Auto) Cancelled, Neut % (Auto) Cancelled, Lymph % (Auto) Cancelled, [place] % (Auto) Cancelled, Eos % (Auto) Cancelled, Baso % (Auto) Cancelled, Absolute Neuts (auto) Cancelled, Absolute Lymphs (auto) Cancelled, Total Counted Cancelled, Neutrophils % (Manual) Cancelled, Band Neutrophils % Cancelled, Lymphocytes % (Manual) Cancelled, Monocytes % (Manual) Cancelled, Eosinophils % (Manual) Cancelled, Basophils % (Manual) Cancelled, Metamyelocytes % Cancelled, Myelocytes % Cancelled, Promyelocytes % Cancelled, Blast Cells % Cancelled, Plasma Cell % (Manual) Cancelled, Other Cells % Cancelled, Nucleated RBC % Cancelled, Nucleated RBCs/100 WBC Cancelled, Differential Comment Cancelled, Diff Path Review Cancelled, Hypersegmented Neuts Cancelled, Atypical Lymphocytes Cancelled, Reactive Lymphocytes Cancelled, Smudge Cells Cancelled, Toxic Granulation Cancelled, Toxic Vacuolation Cancelled, Dohle Bodies Cancelled, Patrick Rods Cancelled, Platelet Estimate Cancelled, Plt Morphology Comment Cancelled, RBC Morphology Cancelled 01/26/23 07:00: RBC Morphology Cancelled, Polychromasia Cancelled, Hypochromasia Cancelled, Poikilocytosis Cancelled, Basophilic Stippling Cancelled, Anisocytosis Cancelled, Microcytosis Cancelled, Macrocytosis Cancelled, Spherocytes Cancelled, Sickle Cells Cancelled, Target Cells Cancelled, Tear Drop Cells Cancelled, Ovalocytes Cancelled, Stomatocytes Cancelled, Quintana-Vance Bodies Cancelled, Alek Cells Cancelled, Bite Cells Cancelled, Crenated Cell Cancelled, Acanthocytes (Spur) Cancelled, Rouleaux Cancelled, Schistocytes Cancelled, Sodium 137, Potassium 4.3, Chloride 108 H, Carbon Dioxide 25.0, Anion Gap 4 L, BUN 22 H, Creatinine 1.18 H, Estim Creat Clear Calc 40.28, Est GFR (MDRD) Af Amer 57 L, Est GFR (MDRD) Non-Af 47 L, BUN/Creatinine Ratio 18.6, Glucose 111 H, Calcium 8.5, Free T4 0.99 01/26/23 11:47: POC Glucose 174 H Microbiology: Microbiology 01/24/23 15:58 Urine, Random Urine Culture - Final Klebsiella oxytoca D/C Instructions Discharge Diet: - (-DASH diet, 3000 mg sodium restriction, 2 L fluid restriction) Meaningful Use Info Meaningful Use Diagnoses (Choose all that apply): None applicable Discharge Plan Admission Admit Date/Time: 01/24/23 17:21 Primary Reason for Your Visit: Altered mental status Attending Provider: Georgia Romero Primary Care Provider: Deven Van Consulting Providers: Abraham Edgar Instructions Patient Instructions: ED Fall Prevention Additional Instructions / Restrictions: DISCHARGE INSTRUCTIONS PLEASE READ *Please take this with you to your next doctors appointment* -Given your glucose was fairly well controlled while in the hospital your glimepiride will be held on discharge, this will likely need to be resumed as you resume your regular activities but would defer to your primary physician on optimal timing to resume -You will also be discharged on 5 more days of an antibiotic, Levaquin, that you will take daily for your urinary tract infection -Please call your primary care provider's office upon discharge to schedule a hospital follow up within 1 week. -For any concerning signs or symptoms please call 911 or proceed to the nearest emergency department Discharge Orders/Prescriptions Prescriptions: New levofloxacin 750 mg tablet 750 mg PO DAILY 5 Days Qty: 5 0RF Continued amitriptyline 50 mg tablet 50 mg PO QHS gabapentin 100 mg capsule 100 mg PO BID Trulicity 3 mg/0.5 mL pen injector 3 mg subcut QWEEK atorvastatin 40 mg tablet 40 mg PO QHS Patient Comments: TAKE 1 TABLET BY MOUTH ONCE DAILY AT BEDTIME FOR CHOLESTEROL Slow-Mag 71.5 mg tablet,delayed release (DR/EC) 71.5 mg PO BID ondansetron HCl 8 mg tablet 8 mg PO Q12H PRN (Reason: nausea) metformin 500 MG tablet 2 tab PO BID Qty: 120 0RF aspirin [Adult Low Dose Aspirin] 81 mg tablet,delayed release (DR/EC) 81 mg PO DAILY carvedilol 3.125 mg tablet 3.125 mg PO BID Qty: 60 11RF Rx Instructions: must administer with a meal/food lisinopril 2.5 mg tablet 2.5 mg PO DAILY Qty: 30 11RF Jardiance 10 mg tablet 10 mg PO DAILY Qty: 30 11RF Discontinued glimepiride 4 MG tablet 1 tab PO BIDCM Referrals / Follow Up: Deven Van MD [Primary Care Provider] - Within 1 Week Disposition Disposition (needs filled in before D/C Order can be placed): Home, Self Care Charges/Coding Visit Charges Inpatient E&M: 48187 Disch Hosp >30min
--- NOTE | 2023-01-26 14:06 | CASEMGMT ---
RN CM into pt room, pt denies needing any therapy at home. She states that she has good family support. Her niece works for [employer] and is able to help her. Pt denies any homegoing needs.
[2023-01-26 14:36] VITALS: BP 113/70; PULSE 89; RESP 18; TEMP 37.2; O2SAT 92
[2023-01-26] MEDS: 0.9% Saline Lock 10 ML Syringe IV (14:56)
--- NOTE | 2023-01-26 15:17 | PHA.DC.MC.R ---
Pharmacy [facility] has performed discharge medication reconciliation and counseling for this patient. The patient's discharge medication list was reviewed for discrepancies and discrepancies were resolved. The patient was counseled on the following discharge medications and changes in medications for homegoing were reviewed. The Reason for Use, instructions for use, and potential side effects were reviewed for all new medications. The patient's questions regarding all of their medications were answered. 1. Levofloxacin 750 mg PO daily x 5 days The patient was able to verbally demonstrate an understanding of their discharge medications. The patient was counselled on new medication by student development advisor Hunter. Medications at Discharge Home Medications metformin 500 mg tablet 2 tab PO BID #120 tabs 05/06/20 amitriptyline 50 mg tablet 50 mg PO QHS 12/23/22 atorvastatin 40 mg tablet 40 mg PO QHS 12/23/22 dulaglutide 3 mg/0.5 mL subcutaneous pen injector (Trulicity) 3 mg subcut QWEEK 12/23/22 gabapentin 100 mg capsule 100 mg PO BID 12/23/22 carvedilol 3.125 mg tablet 3.125 mg PO BID #60 tabs 12/29/22 empagliflozin 10 mg tablet (Jardiance) 10 mg PO DAILY #30 tabs 12/29/22 lisinopril 2.5 mg tablet 2.5 mg PO DAILY #30 tabs 12/29/22 magnesium chloride 71.5 mg (magnesium chloride) tablet,delayed release (Slow-Mag) 71.5 mg PO BID 12/29/22 ondansetron HCl 8 mg tablet 8 mg PO Q12H PRN nausea 12/29/22 aspirin 81 mg tablet,delayed release (Adult Low Dose Aspirin) 81 mg PO DAILY 01/24/23 levofloxacin 750 mg tablet 750 mg PO DAILY 5 days #5 tabs 01/26/23
== END 2023-01-26 15:19 | disposition home or self-care (01) | DRG 871 ==
LOC: ED 17:27 → MS3 01-25 07:17
PROVIDERS: Physician Assistant; Admitting Provider Internal Medicine; Emergency Provider Emergency Medicine; PCP Family Medicine; Visit Provider Internal Medicine
DX: A41.59 Other Gram-negative sepsis (principal); E43 Unspecified severe protein-calorie malnutrition; N17.9 Acute kidney failure, unspecified; I42.8 Other cardiomyopathies; E11.22 Type 2 diabetes mellitus with diabetic chronic kidney disease; E11.40 Type 2 diabetes mellitus with diabetic neuropathy, unspecified; Z68.41 Body mass index [BMI] 40.0-44.9, adult; E66.01 Morbid (severe) obesity due to excess calories; C54.1 Malignant neoplasm of endometrium; N18.30 Chronic kidney disease, stage 3 unspecified; G93.41 Metabolic encephalopathy; N39.0 Urinary tract infection, site not specified; I12.9 Hypertensive chronic kidney disease with stage 1 through stage 4 chronic kidney disease, or unspecified chronic kidney disease; E78.5 Hyperlipidemia, unspecified; K21.9 Gastro-esophageal reflux disease without esophagitis; Z79.84 Long term (current) use of oral hypoglycemic drugs; Z92.21 Personal history of antineoplastic chemotherapy; Z87.891 Personal history of nicotine dependence; Z79.899 Other long term (current) drug therapy; Z79.82 Long term (current) use of aspirin
CPT/HCPCS: 36415; 70450; 71045; 80048; 80053; 81001; 82248; 82962; 83605; 83735; 84100; 84439; 84443; 84484; 85025; 85610; 87040; 87077; 87086; 87088; 87186; 93005; 96361; 96365; 96366; 96372; 96375; 97162; 97166; 97530; 99221; 99285; J7030; J7050; A4216; G0378

== ENCOUNTER 2023-03-10 14:33 | Inpatient (IN) | payer MEDICARE, SELFPAY ==
[2023-03-10] VITALS (9 sets, daily range): BP systolic 79–139; BP diastolic 56–90; PULSE 80–88; RESP 11–22; TEMP 35.5–36.6; O2SAT 91–96; BMI 42.4; BMI 42.5
--- NOTE | 2023-03-10 15:13 | EX.ED.DYSGE1 ---
HPI History of Present Illness Chief Complaint: Hypotension Informant: patient and family (Sister) Onset/Context/Timing Onset: Today Context: Gradual Onset Timing: Waxes and wanes Quality: Lightheaded Location: Generalized Worsened by: Standing, sitting Relieved by: Nothing Narrative Narrative: Patient presents with low blood pressure that was noticed today. Patient has appointment with her pet trainer today where they noted her blood pressure was 76/58. Patient states she has been feeling lightheaded for the past several days. Patient states it is worse with standing and sitting. Patient states it is gradually gotten worse. Patient does not take her blood pressure at home so she does not know if her blood pressure is low when she feels lightheaded. Patient was recently diagnosed with cardiomyopathy associated with chemotherapy and radiation therapy. Patient admits to some subjective chills but denies any fevers. [facility] Medical History (Updated 03/10/23 @ 17:[address] Myron Marcus, DO) Benign neoplasm of colon Chest pain Cholecystitis CKD (chronic kidney disease) stage 3, GFR 30-59 ml/min Coronary artery disease Diabetes Dyslipidemia Endometrial cancer Endometrial cancer, FIGO stage IIIC GERD (gastroesophageal reflux disease) History of cancer of uterus Hypercholesteremia Hypertension Hypomagnesemia Neuropathy Nonischemic cardiomyopathy Obesity Pancytopenia Home Medications metformin 500 mg tablet 2 tab PO BID DIABETES #120 tabs 05/06/20 [Rx Last Taken 03/10/23] amitriptyline 50 mg tablet 50 mg PO QHS DEPRESSION 12/23/22 [History Last Taken 03/09/23] atorvastatin 40 mg tablet 40 mg PO QHS CHOLESTEROL 12/23/22 [History Last Taken 03/09/23] dulaglutide 3 mg/0.5 mL subcutaneous pen injector (Trulicity) 3 mg subcut TU DIABETES 12/23/22 [History Last Taken 03/09/23] gabapentin 100 mg capsule 100 mg PO TID NERVE PAIN 12/23/22 [History Last Taken 03/10/23] empagliflozin 10 mg tablet (Jardiance) 10 mg PO DAILY DIABETES #30 tabs 12/29/22 [Rx Last Taken 03/10/23] magnesium chloride 71.5 mg (magnesium chloride) tablet,delayed release (Slow-Mag) 71.5 mg PO BID SUPPLEMENT 12/29/22 [History Last Taken 03/10/23] ondansetron HCl 8 mg tablet 8 mg PO Q12H PRN NAUSEA 12/29/22 [History Last Taken Unknown] aspirin 81 mg tablet,delayed release (Adult Low Dose Aspirin) 81 mg PO DAILY HEART HEALTH 01/24/23 [History Last Taken 03/10/23] acetaminophen 500 mg tablet (Acetaminophen Extra Strength) 500 mg PO Q6H PRN PAIN 03/10/23 [History Last Taken Unknown] glimepiride 4 mg tablet 4 mg PO BID DIABETES 03/10/23 [History Last Taken 03/10/23] silver sulfadiazine 1 % topical cream 1 applic topical DAILY PRN BURN 03/10/23 [History Last Taken 03/10/23] Allergy/AdvReac Type Severity Reaction Status Date / Time No Known Allergies Allergy Verified 03/10/23 14:35 Family History Father Myocardial infarction Mother Heart disease irregular heart rate Colon cancer Surgical History History of total left knee replacement (TKR) (~01/2011) History of total right knee replacement (TKR) (~05/11/11) Hx laparoscopic cholecystectomy Hx of cataract surgery Hx of hysterectomy, total Social History household members: none Smoking Status: Former smoker how long ago did patient quit smokin alcohol intake: never substance use type: does not use ROS ROS ED Constitutional Constitutional ED: Reports chills and subjective; Denies fever(s) Eyes Eyes: Denies blurry vision or change in vision ENT ENT ED: Denies rhinorrhea or sore throat Cardiovascular Cardiovascular: Denies chest pain or palpitations Respiratory/Chest Respiratory/Chest: Denies cough or dyspnea Gastrointestinal Gastrointestinal: Denies nausea or vomiting Genitourinary Genitourinary ED: Denies dysuria or hematuria Musculoskeletal Musculoskeletal: Reports back pain and neck pain Integumentary Denies abscess or rash Neurologic Neurologic: Reports weakness; Denies headache(s) Allergic/Immunologic Allergic/Immunologic ED: Denies mouth swelling or urticaria EXAM Physical Exam Const Vital Signs: 03/10/23 14:36 03/10/23 16:02 Temperature 96 F L Temperature Source Temporal Pulse Rate 80 Respiratory Rate 14 Respiratory Effort Normal Non-Labored Respiratory Pattern Normal Blood Pressure 79/60 L Blood Pressure Mean 66 Pulse Ox 96 Oxygen Delivery Method Room Air Positive well nourished and well developed General Appearance ED: well developed and NAD HEENT Reports moist mucous membranes Neck supple and no JVD Resp normal respiratory effort and clear to auscultation bilaterally Cardio regular rate and regular rhythm GI non-tender and non-distended Palpation: soft Neuro oriented x3, CN's II-XII intact bilaterally and no sensory deficits noted Sensorium / Orientation: alert Motor Exam: strength 5/5 throughout Psych mental status grossly normal MDM MDM MDM Narrative Medical decision making narrative: Differential diagnosis foods dehydration, electrolyte abnormality, hypoglycemia, sepsis, urinary tract infection, cardiac dysrhythmia, cardiac ischemia, pneumonia, and orthostasis. EKG will be obtained to assess for cardiac dysrhythmia and cardiac ischemia. Chest x-ray will be obtained to assess for pneumonia, pneumothorax, and congestive heart failure. CBC will be obtained to assess for leukocytosis and anemia. High-sensitivity troponin will be obtained to assess for cardiac ischemia. Analysis will be obtained to assess for urinary tract infection and hematuria. Serum magnesium will be obtained to assess for hypomagnesemia. Lab Data Attestation: I reviewed the patient's lab results. Lab results narrative: CBC was reviewed. There is mild anemia with a hemoglobin of 11.2 and hematocrit 35.3. This is improved from previous results. Basic metabolic profile was reviewed. BUN was 32 and creatinine was 1.59. These are consistent with prior results. Glucose was mildly elevated at 253. Anion gap was normal. Serum lactate was reviewed and was elevated at 3.5. High-sensitivity troponin was reviewed and was normal at 10. Urinalysis was reviewed. Leukocyte esterase was 500 with greater than 100 white blood cells. Labs: Laboratory Results - last 24 hr 03/10/23 03/10/23 03/10/23 15:03 15:45 15:55 WBC 8.6 RBC 3.64 L Hgb 11.2 L Hct 35.3 L MCV 97.0 MCH 30.8 MCHC 31.7 L RDW Std Deviation 51.4 H RDW Coeff of [place] 14.4 Plt Count 194 MPV 10.6 Immature Gran % (Auto) 0.300 Neut % (Auto) 69.8 Lymph % (Auto) 15.4 L [place] % (Auto) 7.3 Eos % (Auto) 6.5 H Baso % (Auto) 0.7 Absolute Neuts (auto) 6.0 Absolute Lymphs (auto) 1.33 Nucleated RBC % 0 Sodium 136 Potassium 4.0 Chloride 103 Carbon Dioxide 25.0 Anion Gap 8 BUN 32 H Creatinine 1.59 H Estim Creat Clear Calc 40.29 Est GFR (MDRD) Af Amer 41 L Est GFR (MDRD) Non-Af 33 L BUN/Creatinine Ratio 20.1 H Glucose 253 H Lactic Acid 3.5 H* Calcium 9.5 Troponin I High Sens 10 Urine Color Yellow Urine Clarity Cloudy Urine pH 6.0 Ur Specific [place] 1.015 Urine Protein 100 H Urine Glucose (UA) 1000 H Urine Ketones Negative Urine Occult Blood 50 H Urine Nitrite Negative Urine Bilirubin 1 H Urine Urobilinogen Normal Ur Leukocyte Esterase 500 H Urine RBC 0 SEEN Urine WBC >100 SEEN Ur Squamous Epith Cells 0 SEEN Urine Bacteria 0 SEEN Urine Mucus 0 SEEN Radiography Chest X-Ray - ED: 1 View, Read by ED Physician, Read by Radiologist and No Acute Disease Diagnostic Testing: Clinical Impression(s) from Imaging Studies Chest X-Ray 03/10/23 15:54 IMPRESSION: No acute cardiopulmonary abnormality. Electronically Signed: Keith Pandey MD at 16:19 EST , Portable 1 view chest x-ray was obtained. On my independent interpretation, lung thompson are clear. There is normal cardiac silhouette. Bony thorax is normal. There is no acute process noted. Radiologist also interpreted the x-ray and agrees. EKG Initial EKG: Attestation: I personally reviewed and interpreted this EKG as follows: Comments: EKG was obtained. On my independent interpretation, it showed a sinus rhythm with a rate of 84. NC interval, QRS interval, and QTc intervals were all normal. [place] was borderline at -20. There are specific ST-T wave changes. Prior EKG tracings: available for review Prior: Unchanged (01/24/2023) Treatment and Re-Evaluation :: Because of her cardiomyopathy, patient was only started on small fluid bolus. Patient's blood pressure did drop again to 75 systolic. Patient was given a 1 L bolus of normal saline. Blood cultures were obtained. Urine culture was obtained. Patient was started on Rocephin. Case will be discussed with the hospitalist for admission. She will admit the patient to PCU. Patient and family understood and were agreeable with plan. All questions were answered. Discharge Plan Dx/Rx/DC Orders Clinical Impression: Urinary tract infection, Hypotension (arterial), CKD (chronic kidney disease) stage 3, GFR 30-59 ml/min Disposition Disposition: Acute Care Hospital [facility]
--- NOTE | 2023-03-10 15:31 | EKG12_ITS ---
Test Reason : LOW BP Blood Pressure : / mmHG Vent. Rate : 084 BPM Atrial Rate : 084 BPM P-R Int : 154 ms QRS Dur : 100 ms QT Int : 398 ms P-R-T Axes : 248 -20 036 degrees QTc Int : 470 ms ATRIAL ECTOPIC Abnormal ECG Confirmed by SELIN DAMIAN MD [id number]), editor in chief JIMENEZ CHRISTIE ([id number]) on 03/12/2023 9:45:33 AM Referred By: Confirmed By:SELIN DAMIAN MD
--- NOTE | 2023-03-10 15:54 | RAD_ITS ---
EXAM: XR CHEST, 1 VIEW CLINICAL INDICATION: Hypotension TECHNIQUE: Frontal view of the chest. COMPARISON: XR Chest dated 01/24/2023 FINDINGS: LUNGS AND PLEURAL SPACES: Resolving linear atelectasis. HEART: Normal heart size. MEDIASTINUM: No mediastinal or hilar mass. BONES/JOINTS: No acute abnormality. TUBES, LINES AND DEVICES: Left IJ infusion catheter remains in place with the tip at the cavoatrial junction. RAD/Chest 1 View (Portable) IMPRESSION: No acute cardiopulmonary abnormality. Electronically Signed: Keith Pandey MD at 16:19 EST ,
[2023-03-10] MEDS: 0.9% Normal Saline (500mL Bag) 500 ML 1000 ML IV (15:55)
[2023-03-10 16:05] LABS: Bacteria 0 SEEN /hpf (None Seen); Mucous, Urine 0 SEEN /hpf (<or=2+); Red Blood Cells-Urine 0 SEEN /hpf (0-5); Squamous Epithelial Cells - UA 0 SEEN /hpf (5-10)
[2023-03-10 16:08] LABS: Color, Urine Yellow (Yellow); Glucose, Dipstick 1000 mg/dl (Normal); Ketone-Dipstick Negative (Negative); Leukocyte Esterase-Dipstick 500 /ul (Negative); Nitrite-Dipstick Negative (Negative); Occult Blood-Urine 50 /ul (Negative); Protein-Dipstick 100 mg/dl (Negative); Specific Gravity, Urine 1.015 (1.002-1.030); Urine Clarity Cloudy (Clear); Urine Urobilinogen Normal (Normal)
[2023-03-10 16:09] LABS: Urine Bilirubin Dipstick 1 mg/dL (Negative)
[2023-03-10 16:10] LABS: Absolute Lymphocyte Count 1.33 X10^3/uL (0.83-4.51); Basophil# 0.06 X10^3/uL; Basophil% 0.7 % (0-1); Eosinophil# 0.56 X10^3/uL; Eosinophils% 6.5 % (0-5); Hematocrit 35.3 % (37-47); Hemoglobin 11.2 g/dL (12.0-15.0); Lymphocyte # 1.33 X10^3/ul (0.83-4.51); Lymphocyte % 15.4 % (19-41); Mean Corp Hgb Conc 31.7 g/dL (32-36); Mean Corpuscular Hgb 30.8 pg (27.0-32.0); Mean Platelet Vol. 10.6 fl (6.2-12.0); Monocyte# 0.63 X10^3/uL; Monocyte% 7.3 % (0-10); NRBC Flagged by Analyzer 0 % (0-5); Neutrophil # 6.01 X10^3/uL (2.7-7.7); Neutrophil % 69.8 % (47-70); Platelet Count 194 K/mm3 (150-450); RBC Distribution Width CV 14.4 % (11.6-14.6); RBC Distribution Width SD 51.4 fl (35.1-43.9); Red Blood Count 3.64 M/mm3 (4.2-5.4); White Blood Count 8.6 K/mm3 (4.4-11.0)
[2023-03-10 16:18] LABS: White Blood Cells >100 SEEN /hpf (0-5)
[2023-03-10 16:27] LABS: Lactic Acid 3.5 mmol/L (0.4-1.9)
[2023-03-10 16:28] LABS: Anion Gap 8 (5-15); BUN 32 mg/dL (7-18); BUN/Creat Ratio 20.1 RATIO (10-20); Calcium,Total 9.5 mg/dL (8.5-10.1); Chloride 103 mmol/L (98-107); Creatinine, Serum 1.59 mg/dL (0.55-1.02); EST Glomerular Filtration Rate 33 mL/min (>60); Est Glom Filt Rate - Afr Amer 41 mL/min (>60); Estimated Creatinine Clearance 40.29 ml/min; Glucose 253 mg/dL (74-106); Sodium Level 136 mmol/L (136-145); Troponin-I HS 10 pg/mL (3.0-54.0)
--- NOTE | 2023-03-10 17:06 | HP.PCM.HOS_ITS ---
HPI - General General Date of Admission: 03/10/23 Date of Service: 03/10/23 Chief Complaint: Hypotension, fatigue, malaise, lightheadedness, dizziness. HPI Narrative The patient is a 77 y/o F w/ PMHx: CKD stage III unclear subtype, Chronic a nemia, CAD, HTN, HLD, GERD, Stage IIIc Endometrial CA, Nonischemic Cardiomyopathy, Chronic neuropathy, GERD, Morbid obesity, Former tobacco use who presents to the [facility] ED on 03/10/23 with history of low blood pressure noticed on day of presentation with recent appointment with a electron gun inspector with a also noted lower blood pressure of 76/58 with lightheadedness for the last several days worse with positional changes especially sitting and trying to set up although she does state it is worsened with recent diagnosis of cardiomyopathy associate with chemotherapy and radiation with recent chills but no fevers and given onset of the symptoms prompted ED evaluation. She denies any marked urinary symptoms despite her current presentation. She does report poor oral intake. Since ED interventions she notes feeling improved. Workup in the ED included T96, heart rate 72, BP initially 76/58 with most recent repeat 79/60-->following IVFs most recent repeat 133/72, respiratory rate 14, 96% on room air, CBC with WC 8.6, hemoglobin 11.2, MCV 97, platelet 194 without marked shift, BMP with BUN/creatinine 32/1.59, glucose 253, lactic acid 3.5, troponin 10, urinalysis with cloudy appearing urine, specific remedy 1.015, protein 100, glucose 1000, occult blood 50, negative nitrite, leukocyte [place] 500 with greater than 100 urine RBCs with no bacteria, urine culture pending per ED, blood culture x 2 pending per ED, chest x-ray with no acute cardiopulmonary findings. In the ED patient ministered 1,500 cc (avoided 30 cc/kg secondary to cardiomyopathy history) as well as IV Rocephin. Most recent urine culture noted upon microbiology review 01/24/23 with Klebsiella with resistance to ampicillin and cefazolin otherwise sensitive. [facility] Medical History Benign neoplasm of colon Chest pain Cholecystitis CKD (chronic kidney disease) stage 3, GFR 30-59 ml/min Coronary artery disease Diabetes Dyslipidemia Endometrial cancer Endometrial cancer, FIGO stage IIIC GERD (gastroesophageal reflux disease) History of cancer of uterus Hypercholesteremia Hypertension Hypomagnesemia Neuropathy Nonischemic cardiomyopathy Obesity Pancytopenia Home Medications metformin 500 mg tablet 2 tab PO BID DIABETES #120 tabs 05/06/20 [Rx Last Taken 03/10/23] amitriptyline 50 mg tablet 50 mg PO QHS DEPRESSION 12/23/22 [History Last Taken 03/09/23] atorvastatin 40 mg tablet 40 mg PO QHS CHOLESTEROL 12/23/22 [History Last Taken 03/09/23] dulaglutide 3 mg/0.5 mL subcutaneous pen injector (Trulicity) 3 mg subcut TU DIABETES 12/23/22 [History Last Taken 03/09/23] gabapentin 100 mg capsule 100 mg PO TID NERVE PAIN 12/23/22 [History Last Taken 03/10/23] empagliflozin 10 mg tablet (Jardiance) 10 mg PO DAILY DIABETES #30 tabs 12/29/22 [Rx Last Taken 03/10/23] magnesium chloride 71.5 mg (magnesium chloride) tablet,delayed release (Slow- Mag) 71.5 mg PO BID SUPPLEMENT 12/29/22 [History Last Taken 03/10/23] ondansetron HCl 8 mg tablet 8 mg PO Q12H PRN NAUSEA 12/29/22 [History Last Taken Unknown] aspirin 81 mg tablet,delayed release (Adult Low Dose Aspirin) 81 mg PO DAILY HEART HEALTH 01/24/23 [History Last Taken 03/10/23] acetaminophen 500 mg tablet (Acetaminophen Extra Strength) 500 mg PO Q6H PRN PAIN 03/10/23 [History Last Taken Unknown] glimepiride 4 mg tablet 4 mg PO BID DIABETES 03/10/23 [History Last Taken 03/10/23] silver sulfadiazine 1 % topical cream 1 applic topical DAILY PRN BURN 03/10/23 [History Last Taken 03/10/23] Allergy/AdvReac Type Severity Reaction Status Date / Time No Known Allergies Allergy Verified 03/10/23 14:35 Family History Father Myocardial infarction Mother Heart disease irregular heart rate Colon cancer Surgical History History of total left knee replacement (TKR) (~01/2011) History of total right knee replacement (TKR) (~05/11/11) Hx laparoscopic cholecystectomy Hx of cataract surgery Hx of hysterectomy, total Social History household members: none Smoking Status: Former smoker how long ago did patient quit smokin alcohol intake: never substance use type: does not use ROS ROS Narrative Admission Review of Systems: CONSTITUTIONAL: No weight loss, fever, chills, + weakness or fatigue. HEENT: + Lightheadedness, dizziness. Eyes: No visual loss, blurred vision, double vision or yellow sclerae. Ears, Nose, Throat: No hearing loss, sneezing, congestion, runny nose or sore throat. SKIN: No rash or itching, lesions, wounds. CARDIOVASCULAR: + Lightheadedness, dizziness. No chest pain, chest pressure or chest discomfort, palpitations, edema, orthopnea, syncopal events. RESPIRATORY: No shortness of breath, cough or sputum, wheezing, hemoptysis. GASTROINTESTINAL: + anorexia. No nausea, vomiting or diarrhea, abdominal pain, melena, BRBPR. GENITOURINARY: No dysuria, frequency, urgency or retention. NEUROLOGICAL:+ Lightheadedness, dizziness. No headache, syncope, paralysis, ataxia, numbness or tingling in the extremities, focal weakness, change in bowel or bladder control, seizure. MUSCULOSKELETAL: + muscle, back pain, joint pain or stiffness. HEMATOLOGIC: + anemia. No bleeding or bruising. LYMPHATICS: No enlarged nodes. No history of splenectomy. PSYCHIATRIC: No history of depression or anxiety. ENDOCRINOLOGIC: No reports of sweating, cold or heat intolerance. No polyuria or polydipsia. ALLERGIES: No history of asthma, hives, eczema or rhinitis. Vital Signs Vital Signs Vital Signs: 03/10/23 14:36 03/10/23 16:02 Temperature 96 F L Temperature Source Temporal Pulse Rate 80 Respiratory Rate 14 Respiratory Effort Normal Non-Labored Respiratory Pattern Normal Blood Pressure 79/60 L Blood Pressure Mean 66 Pulse Ox 96 Oxygen Delivery Method Room Air Weight Weight: 271 lb Body Mass Index (BMI) 42.4 Physical Exam Narrative Physical Examination: General: Awake, alert, oriented x 3 and cooperative, seated upright in the ED bed, fatigued but notes feeling significantly improved since initial ED arrival. Skin: Normal color, normal turgor, no icterus, no cyanosis except occasional staged ecchymoses. HEENT: AT/NC, EOMI, PERRLA, dry MM, no carotid bruits or JVD noted. Lungs: Diminished, greater bases, proper effort, no rales, ronchi or wheezing. Heart: Regular rate and rhythm; no gallop, rub audible. Abdomen: Soft, morbidly obese, NTTP, ND, mildly hyperactive BS, no appreciated HSM however habitus makes evaluation difficult. Extremities: No cyanosis, no clubbing, mild peripheral ankle not markedly pitting edema. Neurological: Patient awake, alert, oriented as noted, cognitive function intact; pupils equally reactive to light and accommodation, cranial nerves grossly normal, moving all 4 extremities, no focal deficits, strength moderately to severely globally decreased secondary to acute presentation and underlying co morbidities. Psychiatric: Affect appears flat, fatigued but notes feeling somewhat improved, no acute evidence of depressive or anxiety feelings. Results Lab / Micro Data 03/10/23 15:03 03/10/23 15:03 Labs: Laboratory Results - last 24 hr 03/10/23 15:03: WBC 8.6, RBC 3.64 L, Hgb 11.2 L, Hct 35.3 L, MCV 97.0, MCH 30.8, MCHC 31.7 L, RDW Std Deviation 51.4 H, RDW Coeff of [place] 14.4, Plt Count 194, MPV 10.6, Immature Gran % (Auto) 0.300, Neut % (Auto) 69.8, Lymph % (Auto) 15.4 L, [place] % (Auto) 7.3, Eos % (Auto) 6.5 H, Baso % (Auto) 0.7, Absolute Neuts (auto) 6.0, Absolute Lymphs (auto) 1.33, Nucleated RBC % 0, Sodium 136, Potassium 4.0, Chloride 103, Carbon Dioxide 25.0, Anion Gap 8, BUN 32 H, Creatinine 1.59 H, Est im Creat Clear Calc 40.29, Est GFR (MDRD) Af Amer 41 L, Est GFR (MDRD) Non-Af 33 L, BUN/Creatinine Ratio 20.1 H, Glucose 253 H, Calcium 9.5, Troponin I High Sens 10 03/10/23 15:45: Lactic Acid 3.5 H* 03/10/23 15:55: Urine Color Yellow, Urine Clarity Cloudy, Urine pH 6.0, Ur Specific [place] 1.015, Urine Protein 100 H, Urine Glucose (UA) 1000 H, Urine Ketones Negative, Urine Occult Blood 50 H, Urine Nitrite Negative, Urine Bilirubin 1 H, Urine Urobilinogen Normal, Ur Leukocyte Esterase 500 H, Urine RBC 0 SEEN, Urine WBC >100 SEEN, Ur Squamous Epith Cells 0 SEEN, Urine Bacteria 0 SEEN, Urine Mucus 0 SEEN Imagaing Radiology Impression Chest X-Ray 03/10/23 15:54 IMPRESSION: No acute cardiopulmonary abnormality. Electronically Signed: Keith Pandey MD at 16:19 EST , Assessment & Plan Assessment/Plan (1) Urinary tract infection: (2) Hypotension (arterial): PLAN: Plan The patient is a 77 y/o F w/ PMHx: CKD stage III unclear subtype, Chronic anemia, CAD, HTN, HLD, GERD, Stage IIIc Endometrial CA, Nonischemic Cardiomyopathy, Chronic neuropathy, GERD, Morbid obesity, Former tobacco use who presents to the [facility] ED on 03/10/23 with history of low blood pressure noticed on day of presentation with recent appointment with a electron gun inspector with a also noted lower blood pressure of 76/58 with lightheadedness for the last several days worse with positional changes especially sitting and trying to set up although she does state it is worsened with recent diagnosis of cardiomyopathy associate with chemotherapy and radiation with recent chills but no fevers and given onset of the symptoms prompted ED evaluation. She denies any marked urinary symptoms despite her current presentation. #1. Acute Complicate Urinary Tract Infection with transient Hypotension, Lactic acidosis: Will admit to PCU, UA upon ED evaluation remarkable, pending UCx, continue judicious IVFs, monitor I/Os, continue IV Rocephin w/ transition as able pending sensitivities and speciation. Bld cx x 2 obtained in the ED. PT/OT/CM consultation for discharge planning. Fall precautions. #2. Stage IIIc Endometrial CA: Patient status post previous hysterectomy on adjuvant therapy with carboplatin, paclitaxel and pembrolizumab. As noted patient unfortunately with cardiomyopathy associated with her cancer agents. Encouraged continued outpatient follow-up and assessment with her oncology team [facility]. Mag and Phos requested. #3. Chronic Kidney Disease Stage III, unclear subtype with possible acute renal insufficiency component but unclear as need further trending: Admission BUN/Cr 31/1.59, baseline renal function appears primarily 1.1-1.6 but again this was possibly during an acute phase with most recent 01/26/2023 creatinine 1.18 this could be a component of acute renal insufficiency, repeat BMP in AM. #4. Nonischemic cardiomyopathy: Will continue aspirin, statin, holding patient home Coreg given hypotension, add back once appropriate. Judiciously hydrating given her hypotension. Most recent echocardiogram noted 12/24/2022 with mildly dilated LV, LV systolic function 45?5%, LV diastolic function not visualized, RV normal size, RV systolic function normal, no significant valvular abnormality, visualized aorta dilated with maximal dimension 4.1 cm obtained from [facility]. Patient did have stress testing 12/28/2022 which was negative for inducible ischemia with only noted abnormal EF. #5. Nonobstructive CAD: We will continue patient home aspirin, statin, holding patient Coreg given presentation as noted, add back once appropriate. #6. Diabetes mellitus type II with chronic neuropathy: Hold oral home regimen, ADA diet, accu checks w/ ISS. #7. Hypertension: Given presentation holding all hypertensive regimen given low blood pressure, add back once clinically appropriate. #8. Hyperlipidemia: We will continue patient on statin therapy. #9. Morbid Obesity: Weight loss and lifestyle changes encouraged. #10. Chronic anemia, normocytic: Admission hemoglobin 11.2, MCV 97, baseline hemoglobin previously 01/25/2023 8.4, likely related with underlying cancer and cancer treatments, unclear if transfusions in the interim, will trend CBC. #11. Former tobacco use: Encourage continued tobacco cessation. #12. DVT prophylaxis: Heparin. #13. CODE status: Patient DEONTE is her Sister Milagro and living will is currently in place. Discussed CODE status at length including difference between FULL code, DNR-CCA and DNR-CC status. Following discussions about the differ ences in these status, requested Full Code status. Advanced Care Planning Face to Face Time: 16 minutes. Charges/Coding Visit Charges Inpatient E&M: 50931 Init Hosp L3 Procedures Hospitalists Procedures: 88212 Advncd Care Plan 30 Min
[2023-03-10] MEDS: 0.9% Normal Saline (1000mL) 1,000 ML 1000 ML IV (17:19)
[2023-03-10] MEDS: Ceftriaxone 1 GM/50 ML BAG IV (17:30)
--- NOTE | 2023-03-10 17:48 | NURSING ---
PCU WHITE UTI, HYPOTENSION, CHRONIC KIDNEY DISEASE
[2023-03-10 19:00] LABS: Magnesium 1.6 mg/dL (1.6-2.6)
[2023-03-10 19:56] LABS: Reflex Lactate? Y
[2023-03-10 21:37] LABS: Lactic Acid 3.1 mmol/L (0.4-1.9)
[2023-03-10] MEDS: Atorvastatin Calcium 40 MG Tablet PO (21:53)
[2023-03-10] MEDS: Glucerna Shake 120 ML LIQUID PO (21:53)
[2023-03-10] MEDS: Gabapentin 100 MG Capsule PO (21:53)
[2023-03-10] MEDS: Heparin Injection (Vial) 5,000 UNIT/ML VIAL 5000 UNIT SC (21:54)
[2023-03-10] MEDS: 0.9% Normal Saline (1000mL) 1,000 ML 75 ML IV (21:54)
[2023-03-10] MEDS: Amitriptyline 25 MG Tablet 50 MG PO (22:00)
[2023-03-10] MEDS: Magnesium Chloride 64 MG Delay Rel.Tablet PO (22:00)
[2023-03-11 01:00] VITALS: BP 136/69; PULSE 94; RESP 16; TEMP 36.9; O2SAT 96
[2023-03-11 03:00] VITALS: BP 136/69; PULSE 94; RESP 16; TEMP 36.9; O2SAT 96
[2023-03-11 04:42] VITALS: BMI 42.5
[2023-03-11] MEDS: Acetaminophen 325 MG Tablet 650 MG PO ×2 (06:01→21:28)
[2023-03-11] MEDS: Gabapentin 100 MG Capsule PO ×3 (06:02→21:22)
[2023-03-11 07:53] LABS: Absolute Lymphocyte Count 1.05 X10^3/uL (0.83-4.51); Absolute Neutrophil Count 3.6 X10^3/uL (2.0-7.7); Basophil# 0.03 X10^3/uL; Basophil% 0.5 % (0-1); Eosinophils% 7.1 % (0-5); Hematocrit 29.6 % (37-47); Hemoglobin 9.5 g/dL (12.0-15.0); Lymphocyte # 1.05 X10^3/ul (0.83-4.51); Lymphocyte % 18.7 % (19-41); Mean Corp Hgb Conc 32.1 g/dL (32-36); Mean Corpuscular Hgb 31.5 pg (27.0-32.0); Mean Platelet Vol. 10.3 fl (6.2-12.0); Monocyte# 0.53 X10^3/uL; Monocyte% 9.4 % (0-10); NRBC Flagged by Analyzer 0 % (0-5); Neutrophil # 3.61 X10^3/uL (2.7-7.7); Neutrophil % 64.1 % (47-70); Platelet Count 139 K/mm3 (150-450); RBC Distribution Width CV 14.6 % (11.6-14.6); RBC Distribution Width SD 52.3 fl (35.1-43.9); Red Blood Count 3.02 M/mm3 (4.2-5.4); White Blood Count 5.6 K/mm3 (4.4-11.0)
[2023-03-11 08:27] LABS: ALB/GLOB Ratio 0.9 RATIO (0.9-2.4); AST(SGOT) 11 U/L (15-37); Alanine Aminotransfer ALT/SGPT 16 U/L (13-56); Albumin, Serum 2.9 g/dL (3.2-5.0); Alkaline Phosphatase 61 U/L (45-117); Anion Gap 6 (5-15); BUN 33 mg/dL (7-18); Calcium,Total 8.8 mg/dL (8.5-10.1); Chloride 107 mmol/L (98-107); Creatinine, Serum 1.32 mg/dL (0.55-1.02); EST Glomerular Filtration Rate 41 mL/min (>60); Est Glom Filt Rate - Afr Amer 50 mL/min (>60); Estimated Creatinine Clearance 48.59 ml/min; Globulin 3.3 g/dL (2.2-4.2); Glucose 227 mg/dL (74-106); Potassium 4.1 mmol/L (3.5-5.1); Protein, Total 6.2 g/dL (6.4-8.2); Sodium Level 138 mmol/L (136-145)
[2023-03-11 09:31] VITALS: BP 100/72; PULSE 84; RESP 16; TEMP 36.5; O2SAT 94
[2023-03-11] MEDS: Heparin Injection (Vial) 5,000 UNIT/ML VIAL 5000 UNIT SC ×2 (09:37→21:22)
[2023-03-11] MEDS: Aspirin E.C. 81 MG Tablet PO (09:37)
[2023-03-11] MEDS: Glucerna Shake 120 ML LIQUID PO ×3 (09:37→17:30)
[2023-03-11] MEDS: Ceftriaxone 1 GM/50 ML BAG IV (09:37)
[2023-03-11] MEDS: Magnesium Chloride 64 MG Delay Rel.Tablet PO ×2 (09:37→21:22)
--- NOTE | 2023-03-11 10:13 | PCM.PN.HOSP ---
Reason for Visit Reason for Visit: Diagnoses Hypotension, unspecified (03/10/23) Urinary tract infection, site not specified (03/10/23) Subjective Subjective Patient is a 77-year-old lady who was [facility] with complaints of progressive generalized weakness as well as lightheadedness. Patient was found to have acute cystitis admitted to a monitored bed for further management Objective Data Objective Data Vital Signs: Vital Signs Temp Pulse Resp BP Pulse Ox O2 Del Method 97.7 F L 84 16 100/72 94 Room Air 03/11/23 09:31 03/11/23 09:31 03/11/23 09:31 03/11/23 09:31 03/11/23 09:31 03/11/23 09:31 Oxygen Delivery Method Room Air Weight: 123.2 kg Body Mass Index (BMI) 42.5 Intake & Output: Intake and Output for Last 24 Hours 03/09/23 03/10/23 03/11/23 23:59 23:59 23:59 Intake Total 1551989 440 / 440 Balance 1549 440 / 440 Lab / Micro Data 03/11/23 07:25 03/11/23 07:25 Labs: Laboratory Results - last 24 hr 03/10/23 15:03: WBC 8.6, RBC 3.64 L, Hgb 11.2 L, Hct 35.3 L, MCV 97.0, MCH 30.8, MCHC 31.7 L, RDW Std Deviation 51.4 H, RDW Coeff of [place] 14.4, Plt Count 194, MPV 10.6, Immature Gran % (Auto) 0.300, Neut % (Auto) 69.8, Lymph % (Auto) 15.4 L, [place] % (Auto) 7.3, Eos % (Auto) 6.5 H, Baso % (Auto) 0.7, Absolute Neuts (auto) 6.0, Absolute Lymphs (auto) 1.33, Nucleated RBC % 0, Sodium 136, Potassium 4.0, Chloride 103, Carbon Dioxide 25.0, Anion Gap 8, BUN 32 H, Creatinine 1.59 H, Estim Creat Clear Calc 40.29, Est GFR (MDRD) Af Amer 41 L, Est GFR (MDRD) Non-Af 33 L, BUN/Creatinine Ratio 20.1 H, Glucose 253 H, Calcium 9.5, Phosphorus 4.0, Magnesium 1.6, Troponin I High Sens 10 03/10/23 15:45: Lactic Acid 3.5 H* 03/10/23 15:55: Urine Color Yellow, Urine Clarity Cloudy, Urine pH 6.0, Ur Specific [place] 1.015, Urine Protein 100 H, Urine Glucose (UA) 1000 H, Urine Ketones Negative, Urine Occult Blood 50 H, Urine Nitrite Negative, Urine Bilirubin 1 H, Urine Urobilinogen Normal, Ur Leukocyte Esterase 500 H, Urine RBC 0 SEEN, Urine WBC >100 SEEN, Ur Squamous Epith Cells 0 SEEN, Urine Bacteria 0 SEEN, Urine Mucus 0 SEEN 03/10/23 20:44: Lactic Acid 3.1 H* 03/11/23 07:25: WBC 5.6, RBC 3.02 L, Hgb 9.5 L, Hct 29.6 L, MCV 98.0, MCH 31.5, MCHC 32.1, RDW Std Deviation 52.3 H, RDW Coeff of [place] 14.6, Plt Count 139 L, MPV 10.3, Immature Gran % (Auto) 0.200, Neut % (Auto) 64.1, Lymph % (Auto) 18.7 L, [place] % (Auto) 9.4, Eos % (Auto) 7.1 H, Baso % (Auto) 0.5, Absolute Neuts (auto) 3.6, Absolute Lymphs (auto) 1.05, Nucleated RBC % 0, Sodium 138, Potassium 4.1, Chloride 107, Carbon Dioxide 25.0, Anion Gap 6, BUN 33 H, Creatinine 1.32 H, Estim Creat Clear Calc 48.59, Est GFR (MDRD) Af Amer 50 L, Est GFR (MDRD) Non-Af 41 L, BUN/Creatinine Ratio 25.0 H, Glucose 227 H, Calcium 8.8, Total Bilirubin 0.20, AST 11 L, ALT 16, Alkaline Phosphatase 61, Total Protein 6.2 L, Albumin 2.9 L, Globulin 3.3, Albumin/Globulin Ratio 0.9 Radiography Diagnostic Testing: Radiology Impression Chest X-Ray 03/10/23 15:54 IMPRESSION: No acute cardiopulmonary abnormality. Electronically Signed: Keith Pandey MD at 16:19 EST , Physical Exam Narrative GENERAL: cooperative HEENT: Atraumatic; normocephalic EYES; Anicteric, Normal Conjunctiva NECK; supple, normal thyroid, RESPIRATORY: Diminished to auscultation CARDIOVASCULAR: Regular S1 S2, GI: soft, normoactive bowel sounds, : No Renal angle tenderness; EXTREMITIES: edema, no clubbing, MUSCULOSKELETAL: no muscle wasting NEURO: Awake; no lateralizing signs. SKIN: No Rash PSYCH; Flat affect Assessment & Plan Assessment/Plan (1) Urinary tract infection: (2) Hypotension (arterial): PLAN: Plan Patient is a 77-year-old lady who was sent from the heart group with complaints of progressive generalized weakness as well as lightheadedness. Patient was found to have acute cystitis admitted to a monitored bed for further management 1. Sepsis ? (Present on admission) evidenced by evidence of an infection, SIRS criteria as well as evidence of endorgan dysfunction including hypotension and lactic acidosis. Patient responded to treatment 2. Acute cystitis ? Patient presented with sepsis. Managed with IV fluid resuscitation as well as broad-spectrum antibiotic therapy 3. Chronic kidney disease stage IIIa ? Patient kidney function close to baseline 4.Nonischemic cardiomyopathy ? Following patient chemotherapy. Patient is followed by cardiology as outpatient 5. Essential hypertension ? Patient antihypertensives on hold given her presentation 6. Class III obesity with BMI of 42.5 ? Complicating care weight loss advised 7. Diabetes mellitus type II -patient's oral hypoglycemics held. Placed on long acting insulin, Accu-Cheks a.c. and at bedtime and covered with sliding scale insulin 8. Dyslipidemia -Patient is on statin therapy, continued at home dose 9. Stage IIIc Endometrial CA- Patient status post previous hysterectomy on adjuvant therapy with carboplatin, paclitaxel and pembrolizumab.. Patient completed therapy with radiation and is scheduled to begin immunotherapy 10. Anemia - Secondary to chronic disorder monitoring H&H and transfuse if patient becomes symptomatic or hemoglobin falls below 7 11. DVT prophylaxis -Heparin. Time spent in the patient's overall evaluation,decision-making process, review of diagnostic data, adjustment of management, discussion with other providers, nursing nursing and ancillary staff involved in patient's care documentation, 50 Minutes Sepsis Attestation Sepsis Attestation: Agree w/Sepsis Possible Source of Sepsis: GI tract/intra-abdominal Sepsis Organ Dysfunction Criteria Present: SBP < 90 mmHg or MAP < 65 mmHg and Lactic Acid > 2 mmol/L Charges/Coding Visit Charges Inpatient E&M: 18927 [facility] Hosp L3
--- NOTE | 2023-03-11 11:35 | CASEMGMT ---
RN MYRIAM Face to Face with patient for initial transition planning/care coordination assessment. RN CM introduced self and role at [facility]. Patient sitting in chair, alert and oriented. Patient willing to participate in assessment and is able to answer all questions appropriately. Care providers, pharmacy, and demographics verified. Patient wishes to discharge home, denies need for home health at this time. Patient states she has no further needs or concerns at this time. CM to follow for discharge planning needs that may arise. PCP: Carlota Specialists: Greta, oncologsit; Jennifer, surgeon [facility]; SHARAD, electric arc welder; Wily, mapping technician Preferred Pharmacy: [facility]; [facility] retail at discharge. Insurance: [employer] [facility] Prescription Benefit: yes Living Will/HPOA: yes, sister Milagro Barboza LNOK: sister, niece Living Arrangements: Patient lives with sister and niece in a basement apartment with no steps to enter. Patient is independent at home. Transportation: sister DME/HHC: Patient has shower chair, cane, walker, grab bars, glucometer and supplies at home. No previous HHC or SNF. Disposition Plan: Patient to discharge home with family support and follow-up plans in place. Gabby JOHNSON, RN, CM
[2023-03-11 15:20] VITALS: BP 151/75; PULSE 94; RESP 16; TEMP 37.1; O2SAT 94
[2023-03-11 20:52] VITALS: BP 180/77; PULSE 110; RESP 16; TEMP 36.8; O2SAT 96
[2023-03-11 21:00] VITALS: BP 180/77; PULSE 110; RESP 16; TEMP 36.8; O2SAT 96
[2023-03-11] MEDS: Amitriptyline 25 MG Tablet 50 MG PO (21:22)
[2023-03-11] MEDS: Atorvastatin Calcium 40 MG Tablet PO (21:28)
[2023-03-12 04:17] VITALS: BP 107/66; PULSE 84; RESP 20; TEMP 36.4; O2SAT 92
[2023-03-12 04:18] VITALS: BP 107/66; PULSE 80; RESP 20; TEMP 36.4; O2SAT 92
[2023-03-12 05:40] VITALS: BMI 42.6
[2023-03-12] MEDS: Gabapentin 100 MG Capsule PO (05:51)
[2023-03-12] MEDS: 0.9% Saline Lock 10 ML Syringe IV ×3 (05:54→14:13)
[2023-03-12 06:10] LABS: Absolute Lymphocyte Count 1.09 X10^3/uL (0.83-4.51); Basophil# 0.03 X10^3/uL; Basophil% 0.4 % (0-1); Eosinophil# 0.33 X10^3/uL; Eosinophils% 4.6 % (0-5); Hematocrit 30.4 % (37-47); Hemoglobin 9.7 g/dL (12.0-15.0); Lymphocyte # 1.09 X10^3/ul (0.83-4.51); Lymphocyte % 15.1 % (19-41); Mean Corp Hgb Conc 31.9 g/dL (32-36); Mean Corpuscular Hgb 30.9 pg (27.0-32.0); Mean Corpuscular Volume 96.8 fL (81-99); Mean Platelet Vol. 10.3 fl (6.2-12.0); Monocyte% 9.7 % (0-10); NRBC Flagged by Analyzer 0 % (0-5); Neutrophil # 5.04 X10^3/uL (2.7-7.7); Neutrophil % 69.9 % (47-70); Platelet Count 145 K/mm3 (150-450); RBC Distribution Width CV 14.4 % (11.6-14.6); RBC Distribution Width SD 50.6 fl (35.1-43.9); Red Blood Count 3.14 M/mm3 (4.2-5.4); White Blood Count 7.2 K/mm3 (4.4-11.0)
[2023-03-12 06:54] LABS: Anion Gap 6 (5-15); BUN 27 mg/dL (7-18); BUN/Creat Ratio 25.5 RATIO (10-20); Calcium,Total 9.3 mg/dL (8.5-10.1); Chloride 109 mmol/L (98-107); Creatinine, Serum 1.06 mg/dL (0.55-1.02); EST Glomerular Filtration Rate 53 mL/min (>60); Est Glom Filt Rate - Afr Amer 65 mL/min (>60); Estimated Creatinine Clearance 60.57 ml/min; Glucose 152 mg/dL (74-106); Magnesium 1.8 mg/dL (1.6-2.6); Phosphorus 3.6 mg/dL (2.5-4.9); Potassium 4.2 mmol/L (3.5-5.1); Sodium Level 141 mmol/L (136-145)
--- NOTE | 2023-03-12 10:09 | PCM.PN.HOSP ---
Reason for Visit Reason for Visit: Diagnoses Hypotension, unspecified (03/10/23) Urinary tract infection, site not specified (03/10/23) Subjective Subjective Patient seen appears to be improving clinically. Urine and blood culture still pending Objective Data Objective Data Vital Signs: Vital Signs Temp Pulse Resp BP Pulse Ox O2 Del Method 97.6 F L 80 20 H 107/66 92 Nasal Cannula 03/12/23 04:18 03/12/23 04:18 03/12/23 04:18 03/12/23 04:18 03/12/23 04:18 03/12/23 08:20 Oxygen Delivery Method Nasal Cannula Weight: 123.4 kg Body Mass Index (BMI) 42.6 Intake & Output: Intake and Output for Last 24 Hours 03/10/23 03/11/23 03/12/23 23:59 23:59 23:59 Intake Total 1549 1476.25 / 1776.25 420 / 420 Balance 1549 1476.25 / 1776.25 420 / 420 Lab / Micro Data 03/12/23 05:45 03/12/23 05:45 Labs: Laboratory Results - last 24 hr 03/12/23 05:45: WBC 7.2, RBC 3.14 L, Hgb 9.7 L, Hct 30.4 L, MCV 96.8, MCH 30.9, MCHC 31.9 L, RDW Std Deviation 50.6 H, RDW Coeff of [place]per 14.4, Plt Count 145 L, MPV 10.3, Immature Gran % (Auto) 0.300, Neut % (Auto) 69.9, Lymph % (Auto) 15.1 L, [place] % (Auto) 9.7, Eos % (Auto) 4.6, Baso % (Auto) 0.4, Absolute Neuts (auto) 5.0, Absolute Lymphs (auto) 1.09, Nucleated RBC % 0, Sodium 141, Potassium 4.2, Chloride 109 H, Carbon Dioxide 26.0, Anion Gap 6, BUN 27 H, Creatinine 1.06 H, Estim Creat Clear Calc 60.57, Est GFR (MDRD) Af Amer 65, Est GFR (MDRD) Non-Af 53 L, BUN/Creatinine Ratio 25.5 H, Glucose 152 H, Calcium 9.3, Phosphorus 3.6, Magnesium 1.8 Physical Exam Narrative GENERAL: cooperative HEENT: Atraumatic; normocephalic EYES; Anicteric, Normal Conjunctiva NECK; supple, normal thyroid, RESPIRATORY: Diminished to auscultation CARDIOVASCULAR: Regular S1 S2, GI: soft, normoactive bowel sounds, : No Renal angle tenderness; EXTREMITIES: edema, no clubbing, MUSCULOSKELETAL: no muscle wasting NEURO: Awake; no lateralizing signs. SKIN: No Rash PSYCH; Flat affect Assessment & Plan Assessment/Plan (1) Urinary tract infection: (2) Hypotension (arterial): PLAN: Plan Patient is a 77-year-old lady who was sent from the heart group with complaints of progressive generalized weakness as well as lightheadedness. Patient was found to have acute cystitis admitted to a monitored bed for further management 1. Sepsis ? (Present on admission) evidenced by evidence of an infection, SIRS criteria as well as evidence of endorgan dysfunction including hypotension and lactic acidosis. Patient responded to treatment -03/12/2023 patient responded to treatment 2. Acute cystitis ? Patient presented with sepsis. Managed with IV fluid resuscitation as well as broad-spectrum antibiotic therapy ? 03/12/2023 urine and blood cultures pending 3. Chronic kidney disease stage IIIa ? Patient kidney function close to baseline 4.Nonischemic cardiomyopathy ? Following patient chemotherapy. Patient is followed by cardiology as outpatient 5. Essential hypertension ? Patient antihypertensives on hold given her presentation 6. Class III obesity with BMI of 42.5 ? Complicating care weight loss advised 7. Diabetes mellitus type II -patient's oral hypoglycemics held. Placed on long acting insulin, Accu-Cheks a.c. and at bedtime and covered with sliding scale insulin 8. Dyslipidemia -Patient is on statin therapy, continued at home dose 9. Stage IIIc Endometrial CA- Patient status post previous hysterectomy on adjuvant therapy with carboplatin, paclitaxel and pembrolizumab.. Patient completed therapy with radiation and is scheduled to begin immunotherapy 10. Anemia - Secondary to chronic disorder monitoring H&H and transfuse if patient becomes symptomatic or hemoglobin falls below 7 11. DVT prophylaxis -Heparin. 12. Physical deconditioning - Requested for PT OT eval and director social welfare to assist with discharge planning Time spent in the patient's overall evaluation,decision-making process, review of diagnostic data, adjustment of management, discussion with other providers, nursing nursing and ancillary staff involved in patient's care documentation, 35 minutes Charges/Coding Visit Charges Inpatient E&M: 42208 Subs Hosp L2
[2023-03-12 10:18] VITALS: BP 130/53; PULSE 84; RESP 16; TEMP 35.8; O2SAT 98
[2023-03-12] MEDS: Magnesium Chloride 64 MG Delay Rel.Tablet PO (10:30)
[2023-03-12] MEDS: Heparin Injection (Vial) 5,000 UNIT/ML VIAL 5000 UNIT SC (10:30)
[2023-03-12] MEDS: Aspirin E.C. 81 MG Tablet PO (10:30)
[2023-03-12] MEDS: Ceftriaxone 1 GM/50 ML BAG IV (10:31)
--- NOTE | 2023-03-12 13:27 | DS.PCM_ITS ---
Providers Date of Admission: 03/10/23 Date of Discharge: 03/12/23 Primary Care Physician: Dr. Deven Van MD Reason For Visit: UTI, HYPOTENSION, LACTIC ACIDOSIS Diagnosis Discharge Diagnosis (1) Urinary tract infection: Status: Acute Code(s): N39.0 - Urinary tract infection, site not specified (2) Hypotension (arterial): Status: Chronic Code(s): I95.9 - Hypotension, unspecified Plan Patient is a 77-year-old lady who was sent from the heart group with complaints of progressive generalized weakness as well as lightheadedness. Patient was found to have acute cystitis admitted to a monitored bed for further management 1. Sepsis ? (Present on admission) evidenced by evidence of an infection, SIRS criteria as well as evidence of endorgan dysfunction including hypotension and lactic acidosis. Patient responded to treatment -03/12/2023 patient responded to treatment 2. Acute cystitis ? Patient presented with sepsis. Managed with IV fluid resuscitation as well as broad-spectrum antibiotic therapy ? 03/12/2023 urine and blood cultures pending ? Final urine cultures Mixed Gram Positive Organisms. Patient discharged with 10 empiric treatment with cefdinir 3. Chronic kidney disease stage IIIa ? Patient kidney function close to baseline 4.Nonischemic cardiomyopathy ? Following patient chemotherapy. Patient is followed by cardiology as outpatient 5. Essential hypertension ? Patient antihypertensives on hold given her presentation 6. Class III obesity with BMI of 42.5 ? Complicating care weight loss advised 7. Diabetes mellitus type II -patient's oral hypoglycemics held. Placed on long acting insulin, Accu-Cheks a.c. and at bedtime and covered with sliding scale insulin 8. Dyslipidemia -Patient is on statin therapy, continued at home dose 9. Stage IIIc Endometrial CA- Patient status post previous hysterectomy on adjuvant therapy with carboplatin, paclitaxel and pembrolizumab.. Patient completed therapy with radiation and is scheduled to begin immunotherapy 10. Anemia - Secondary to chronic disorder monitoring H&H and transfuse if patient becomes symptomatic or hemoglobin falls below 7 11. DVT prophylaxis -Heparin. 12. Physical deconditioning - Requested for PT OT eval and social services director to assist with discharge planning Time spent in the patient's overall evaluation,decision-making process, review of diagnostic data, adjustment of management, discussion with other providers, nursing nursing and ancillary staff involved in patient's care documentation, 35 minutes Medications at Discharge Home Medications metformin 500 mg tablet 2 tab PO BID DIABETES #120 tabs 05/06/20 amitriptyline 50 mg tablet 50 mg PO QHS DEPRESSION 12/23/22 atorvastatin 40 mg tablet 40 mg PO QHS CHOLESTEROL 12/23/22 dulaglutide 3 mg/0.5 mL subcutaneous pen injector (Trulicity) 3 mg subcut TU DIABETES 12/23/22 gabapentin 100 mg capsule 100 mg PO TID NERVE PAIN 12/23/22 empagliflozin 10 mg tablet (Jardiance) 10 mg PO DAILY DIABETES #30 tabs 12/29/22 magnesium chloride 71.5 mg (magnesium chloride) tablet,delayed release (Slow- Mag) 71.5 mg PO BID SUPPLEMENT 12/29/22 ondansetron HCl 8 mg tablet 8 mg PO Q12H PRN NAUSEA 12/29/22 aspirin 81 mg tablet,delayed release (Adult Low Dose Aspirin) 81 mg PO DAILY HEART HEALTH 01/24/23 acetaminophen 500 mg tablet (Acetaminophen Extra Strength) 500 mg PO Q6H PRN PAIN 03/10/23 glimepiride 4 mg tablet 4 mg PO BID DIABETES 03/10/23 silver sulfadiazine 1 % topical cream 1 applic topical DAILY PRN BURN 03/10/23 cefdinir 300 mg capsule 300 mg PO BID #14 caps 03/12/23 Hospital Course Summary of Care Provided Minutes Spent on Discharge: 35 Physical Exam Narrative GENERAL: cooperative HEENT: Atraumatic; normocephalic EYES; Anicteric, Normal Conjunctiva NECK; supple, normal thyroid, RESPIRATORY: Diminished to auscultation CARDIOVASCULAR: Regular S1 S2, GI: soft, normoactive bowel sounds, : No Renal angle tenderness; EXTREMITIES: edema, no clubbing, MUSCULOSKELETAL: no muscle wasting NEURO: Awake; no lateralizing signs. SKIN: No Rash PSYCH; Flat affect Weight / BMI Weight Weight: 123.4 kg Body Mass Index (BMI) 42.6 ABG / Lab / Microbiology Data 03/12/23 05:45 03/12/23 05:45 Laboratory: Laboratory Results - last 24 hr 03/12/23 05:45: WBC 7.2, RBC 3.14 L, Hgb 9.7 L, Hct 30.4 L, MCV 96.8, MCH 30.9, MCHC 31.9 L, RDW Std Deviation 50.6 H, RDW Coeff of [place] 14.4, Plt Count 145 L, MPV 10.3, Immature Gran % (Auto) 0.300, Neut % (Auto) 69.9, Lymph % (Auto) 15.1 L, [place] % (Auto) 9.7, Eos % (Auto) 4.6, Baso % (Auto) 0.4, Absolute Neuts (auto) 5.0, Absolute Lymphs (auto) 1.09, Nucleated RBC % 0, Sodium 141, Potassium 4.2, Chloride 109 H, Carbon Dioxide 26.0, Anion Gap 6, BUN 27 H, Creatinine 1.06 H, Estim Creat Clear Calc 60.57, Est GFR (MDRD) Af Amer 65, Est GFR (MDRD) Non-Af 53 L, BUN/Creatinine Ratio 25.5 H, Glucose 152 H, Calcium 9.3, Phosphorus 3.6, Magnesium 1.8 Microbiology: Microbiology 03/10/23 15:55 Urine, Clean Catch Urine Culture - Final Mixed Gram Positive Organisms D/C Instructions Discharge Diet: 1800 Calorie Control Diet Discharge Activity: Return to Normal Activity Call your doctor if you observe: Fever of 101 or Higher, Shortness of breath, Fainting spells and Chest pain Meaningful Use Info Meaningful Use Diagnoses (Choose all that apply): None applicable Discharge Plan Admission Admit Date/Time: 03/10/23 18:20 Attending Provider: Eduardo Doran Primary Care Provider: Deven Van Consulting Providers: Renata Culver Discharge Orders/Prescriptions Prescriptions: New cefdinir 300 mg capsule 300 mg PO BID Qty: 14 0RF Continued amitriptyline 50 mg tablet 50 mg PO QHS gabapentin 100 mg capsule 100 mg PO TID Patient Comments: PT STATES ONLY TAKES ONE CAPSULE TWICE A DAY ( OF 03/10/23) Trulicity 3 mg/0.5 mL pen injector 3 mg subcut TU atorvastatin 40 mg tablet 40 mg PO QHS Slow-Mag 71.5 mg tablet,delayed release (DR/EC) 71.5 mg PO BID ondansetron HCl 8 mg tablet 8 mg PO Q12H PRN (Reason: NAUSEA ) silver sulfadiazine 1 % cream 1 applic topical DAILY PRN (Reason: BURN) Rx Instructions: APPLY ONE APPLICATION ONCE DAILY NEEDED TO HAND glimepiride 4 mg tablet 4 mg PO BID acetaminophen [Acetaminophen Extra Strength] 500 mg tablet 500 mg PO Q6H PRN (Reason: PAIN ) aspirin [Adult Low Dose Aspirin] 81 mg tablet,delayed release (DR/EC) 81 mg PO DAILY Jardiance 10 mg tablet 10 mg PO DAILY Qty: 30 11RF Held metformin 500 MG tablet 2 tab PO BID Qty: 120 0RF Hold Instructions: Resume on 03/21/23. Referrals / Follow Up: Deven Van MD [Primary Care Provider] - Within 1 Week Disposition Disposition (needs filled in before D/C Order can be placed): Home, Self Care Charges/Coding Visit Charges Inpatient E&M: 67560 Disch Hosp >30min
--- NOTE | 2023-03-12 13:41 | CASEMGMT ---
LEONEL MIGUEL NOTE: Pt being discharged. Therapy notes reviewed. Pt ambulated 60 ft w/WW and SBA today w/therapy. LEONEL MIGUEL to room. Pt sitting up in chair in room. Introduced self and role. Pt denies needing/wanting HHC and denies other discharge needs. Pt's sister will be taking her home today. Feliz JOHNSON RN CM
[2023-03-12 14:04] VITALS: BP 114/94; PULSE 85; RESP 16; TEMP 35.8; O2SAT 96
--- NOTE | 2023-03-12 14:34 | PHA.DC.MC.R ---
Pharmacy [facility] Pharmacy Service has performed discharge medication reconciliation and counseling for this patient. The patient's discharge medication list was reviewed for discrepancies and discrepancies were resolved. The patient was counseled on the following discharge medications and changes in medications for homegoing were reviewed. The Reason for Use, instructions for use, and potential side effects were reviewed for all new medications. The patient's questions regarding all of their medications were answered. 1. Cefdinir 300 mg PO BID x 7 days The patient was able to verbally demonstrate an understanding of their discharge medications. Medications at Discharge Home Medications metformin 500 mg tablet 2 tab PO BID DIABETES #120 tabs 05/06/20 amitriptyline 50 mg tablet 50 mg PO QHS DEPRESSION 12/23/22 atorvastatin 40 mg tablet 40 mg PO QHS CHOLESTEROL 12/23/22 dulaglutide 3 mg/0.5 mL subcutaneous pen injector (Trulicity) 3 mg subcut TU DIABETES 12/23/22 gabapentin 100 mg capsule 100 mg PO TID NERVE PAIN 12/23/22 empagliflozin 10 mg tablet (Jardiance) 10 mg PO DAILY DIABETES #30 tabs 12/29/22 magnesium chloride 71.5 mg (magnesium chloride) tablet,delayed release (Slow-Mag) 71.5 mg PO BID SUPPLEMENT 12/29/22 ondansetron HCl 8 mg tablet 8 mg PO Q12H PRN NAUSEA 12/29/22 aspirin 81 mg tablet,delayed release (Adult Low Dose Aspirin) 81 mg PO DAILY HEART HEALTH 01/24/23 acetaminophen 500 mg tablet (Acetaminophen Extra Strength) 500 mg PO Q6H PRN PAIN 03/10/23 glimepiride 4 mg tablet 4 mg PO BID DIABETES 03/10/23 silver sulfadiazine 1 % topical cream 1 applic topical DAILY PRN BURN 03/10/23 cefdinir 300 mg capsule 300 mg PO BID #14 caps 03/12/23
== END 2023-03-12 15:30 | disposition home or self-care (01) | DRG 872 ==
LOC: ED 16:50 → PCU 18:34
PROVIDERS: Admitting Provider Family Medicine; Emergency Provider Emergency Medicine; PCP Family Medicine; Visit Provider Internal Medicine
DX: A41.9 Sepsis, unspecified organism (principal); I42.8 Other cardiomyopathies; Z68.41 Body mass index [BMI] 40.0-44.9, adult; N30.00 Acute cystitis without hematuria; E11.22 Type 2 diabetes mellitus with diabetic chronic kidney disease; C54.1 Malignant neoplasm of endometrium; E11.40 Type 2 diabetes mellitus with diabetic neuropathy, unspecified; D63.0 Anemia in neoplastic disease; N18.31 Chronic kidney disease, stage 3a; E66.01 Morbid (severe) obesity due to excess calories; I12.9 Hypertensive chronic kidney disease with stage 1 through stage 4 chronic kidney disease, or unspecified chronic kidney disease; I95.1 Orthostatic hypotension; E78.00 Pure hypercholesterolemia, unspecified; I25.10 Atherosclerotic heart disease of native coronary artery without angina pectoris; R53.81 Other malaise; Z79.82 Long term (current) use of aspirin; Z79.84 Long term (current) use of oral hypoglycemic drugs; Z79.85 Long-term (current) use of injectable non-insulin antidiabetic drugs; Z79.899 Other long term (current) drug therapy; Z87.891 Personal history of nicotine dependence
CPT/HCPCS: 36415; 36591; 71045; 80048; 80053; 81001; 83605; 83735; 84100; 84484; 85025; 87040; 87086; 87088; 93005; 94668; 97116; 97162; 97802; 99285; J7030; J7040; A4216

== ENCOUNTER 2023-04-10 14:40 | Observation (INO) | payer MEDICARE, SELFPAY ==
[2023-04-10] VITALS (21 sets, daily range): BP systolic 108–148; BP diastolic 56–81; PULSE 87–117; RESP 13–28; TEMP 36.2–37.2; O2SAT 84–98; BMI 41.5; BMI 41.9
--- NOTE | 2023-04-10 15:59 | EX.ED.DYSGE1 ---
HPI History of Present Illness Chief Complaint: Dizziness Narrative Narrative: 77-year-old female with history of endometrial cancer status post radiation therapy, status post chemotherapy. Patient sees Dr. Hernandes. Patient has longstanding history of hypotension/lightheadedness. It suspected this is due to postradiation therapy also her medications have been adjusted. She stopped her lisinopril. Her Jardiance has been held. Patient sees specialist now at [facility] who has stopped these medications. Patient states that last night she was walking from the bathroom with her walker which is baseline and when she got to the bed she felt lightheaded and went down. Patient states this was about 2 AM. Patient states that she was able to call out and her daughter came in at about 3 AM. Patient is unsure if she hit her head or loss conscious but does not have any headache, slurred speech, visual complaints, head or neck pain. Patient states that she was helped into bed and this morning she was checking her blood pressures with a new blood pressure monitor and her sister states that her blood pressures were in the 70s systolic. Her blood pressure was checked 3 times. Patient currently does not have any lightheadedness. She denies any fever, chills, cough. Denies chest pain or shortness of breath. Sister states she is just getting over a cold and the patient is self states she is not feeling like she has a cold. Patient has not had nausea or vomiting. She states she does not have urinary frequency but when she does urinate she has a long void. She states she drinks about 3 to 4 quarts of water a day. Denies dysuria or hematuria. Patient states he was recently admitted for similar symptoms and it was considered to be UTI which caused the hypotension. [facility] Medical History Benign neoplasm of colon Chest pain Cholecystitis CKD (chronic kidney disease) stage 3, GFR 30-59 ml/min Coronary artery disease Diabetes Dyslipidemia Endometrial cancer Endometrial cancer, FIGO stage IIIC Former smoker GERD (gastroesophageal reflux disease) History of cancer of uterus Hypercholesteremia Hypertension Hypomagnesemia Neuropathy Nonischemic cardiomyopathy Obesity Pancytopenia Home Medications metformin 500 mg tablet 2 tab PO BID DIABETES #120 tabs 05/06/20 [Rx Last Taken 03/10/23] amitriptyline 50 mg tablet 50 mg PO QHS DEPRESSION 12/23/22 [History Last Taken 03/09/23] atorvastatin 40 mg tablet 40 mg PO QHS CHOLESTEROL 12/23/22 [History Last Taken 03/09/23] dulaglutide 3 mg/0.5 mL subcutaneous pen injector (Trulicity) 3 mg subcut TU DIABETES 12/23/22 [History Last Taken 03/09/23] gabapentin 100 mg capsule 100 mg PO TID NERVE PAIN 12/23/22 [History Last Taken 03/10/23] empagliflozin 10 mg tablet (Jardiance) 10 mg PO DAILY DIABETES #30 tabs 12/29/22 [Rx Last Taken 03/10/23] magnesium chloride 71.5 mg (magnesium chloride) tablet,delayed release (Slow-Mag) 71.5 mg PO BID SUPPLEMENT 12/29/22 [History Last Taken 03/10/23] ondansetron HCl 8 mg tablet 8 mg PO Q12H PRN NAUSEA 12/29/22 [History Last Taken Unknown] aspirin 81 mg tablet,delayed release (Adult Low Dose Aspirin) 81 mg PO DAILY HEART HEALTH 01/24/23 [History Last Taken 03/10/23] acetaminophen 500 mg tablet (Acetaminophen Extra Strength) 500 mg PO Q6H PRN PAIN 03/10/23 [History Last Taken Unknown] glimepiride 4 mg tablet 4 mg PO BID DIABETES 03/10/23 [History Last Taken 03/10/23] silver sulfadiazine 1 % topical cream 1 applic topical DAILY PRN BURN 03/10/23 [History Last Taken 03/10/23] cefdinir 300 mg capsule 300 mg PO BID #14 caps 03/12/23 [Rx Last Taken Unknown] Allergy/AdvReac Type Severity Reaction Status Date / Time No Known Allergies Allergy Verified 04/10/23 14:40 Family History Father Myocardial infarction Mother Heart disease irregular heart rate Colon cancer Surgical History History of cholecystectomy History of total left knee replacement (TKR) (~01/2011) History of total right knee replacement (TKR) (~05/11/11) Hx laparoscopic cholecystectomy Hx of cataract surgery Hx of hysterectomy, total Social History household members: none Smoking Status: Former smoker how long ago did patient quit smokin alcohol intake: never substance use type: does not use ROS ROS ED Constitutional Constitutional ED: Denies chills, fever(s) or sweats Eyes Eyes: Denies blurry vision or change in vision ENT ENT ED: Denies ear pain or sore throat Cardiovascular Cardiovascular: Reports other Details: Lightheadedness ; Denies chest pain, palpitations or racing heartbeat Respiratory/Chest Respiratory/Chest: Denies cough, dyspnea or sputum Gastrointestinal Gastrointestinal: Denies abdominal pain, constipation, diarrhea, nausea or vomiting Genitourinary Genitourinary ED: Denies dysuria, hematuria or urinary frequency Musculoskeletal Musculoskeletal: Denies arthralgias, myalgias or neck pain Integumentary Denies abscess, Abrasions or rash Neurologic Neurologic: Denies headache(s), paresthesias or weakness Psychiatric Psychiatric: Denies anxiety, depression, suicidal ideation or suicidal thoughts Endocrine Endocrinology: Denies polydipsia or polyuria EXAM Physical Exam Const Vital Signs: 04/10/23 14:41 04/10/23 15:34 04/10/23 14:43 Temperature 99 F Temperature Source Temporal Pulse Rate 117 H Respiratory Rate 16 Respiratory Pattern Normal Blood Pressure 108/56 L Blood Pressure Mean 73 Pulse Ox 92 Oxygen Delivery Method Room Air Room Air Oxygen Flow Rate (L/min) 04/10/23 16:48 04/10/23 16:50 04/10/23 17:08 Temperature Temperature Source Pulse Rate 99 103 H 100 Respiratory Rate 21 H 13 22 H Respiratory Pattern Blood Pressure Blood Pressure Mean Pulse Ox 88 91 93 Oxygen Delivery Method Oxygen Flow Rate (L/min) 04/10/23 17:10 04/10/23 17:15 04/10/23 17:20 Temperature Temperature Source Pulse Rate 99 99 97 Respiratory Rate 28 H 25 H 15 Respiratory Pattern Blood Pressure 123/73 H Blood Pressure Mean 87 Pulse Ox 93 87 90 Oxygen Delivery Method Oxygen Flow Rate (L/min) 04/10/23 17:30 04/10/23 17:48 04/10/23 17:50 Temperature Temperature Source Pulse Rate 98 109 H 102 H Respiratory Rate 22 H 19 H 16 Respiratory Pattern Blood Pressure 142/81 H Blood Pressure Mean 99 Pulse Ox 97 84 Oxygen Delivery Method Oxygen Flow Rate (L/min) 04/10/23 18:00 04/10/23 18:10 04/10/23 18:15 Temperature Temperature Source Pulse Rate 95 94 94 Respiratory Rate 25 H 25 H 26 H Respiratory Pattern Blood Pressure 120/66 126/63 H Blood Pressure Mean 81 82 Pulse Ox 97 98 98 Oxygen Delivery Method Oxygen Flow Rate (L/min) 04/10/23 19:31 04/10/23 21:08 04/10/23 21:23 Temperature Temperature Source Pulse Rate 93 94 Respiratory Rate 24 H 21 H Respiratory Pattern Blood Pressure 121/58 H 141/73 H Blood Pressure Mean 79 95 Pulse Ox 97 95 91 Oxygen Delivery Method Nasal Cannula Room Air Room Air Oxygen Flow Rate (L/min) 2 04/10/23 22:02 04/10/23 22:03 04/10/23 22:03 Temperature 97.2 F L Temperature Source Temporal Pulse Rate 90 90 Respiratory Rate 22 H 22 H Respiratory Pattern Blood Pressure 134/74 H 134/74 H Blood Pressure Mean 94 94 Pulse Ox 97 97 97 Oxygen Delivery Method Nasal Cannula Nasal Cannula Oxygen Flow Rate (L/min) 2 2 Positive well nourished General Appearance ED: NAD; Negative for pallor HEENT Reports moist mucous membranes Eyes PERRL and EOMs intact bilaterally Chest Wall inspection of chest normal Resp normal respiratory effort and clear to auscultation bilaterally Auscultation: Negative for rales, rhonchi or wheezes Cardio regular rate and regular rhythm GI normal to inspection, nondistended, normoactive bowel sounds Extremity normal to inspection Neuro oriented x3 and CN's II-XII intact bilaterally Sensorium / Orientation: alert Motor Exam: strength 5/5 throughout Psych mental status grossly normal Skin no rashes or lesions noted General Skin Exam: Negative for jaundice or pallor MDM MDM MDM Narrative Medical decision making narrative: 77-year-old female presenting with lightheadedness. She is tachycardic and reportedly hypotensive at home. Septic workup was pursued. Patient given IV fluids. She declines analgesia or antiemetic. Will obtain COVID, flu, RSV swab since her sister has been recently ill. Will obtain EKG to assess for ischemia/dysrhythmia. High-sensitivity troponin we obtained and well. Patient will be pancultured. CBC to assess white blood cell count, hemoglobin, platelets. CMP to assess liver function, renal function, electrolytes, glucose. Urinalysis to assess for UTI. Lactic acid will be obtained. Given that the patient fell and lost about an hour of time after she fell I will obtain a CT of the brain rule intracranial injury. CBC shows normal white blood cell count of 5.5. Hemoglobin 10.0. Is noted the patient is lymphopenic. Creatinine slightly elevated today at 1.48 from a baseline of 1.06 previously. LFTs are nonelevated. Lactic acid was 3.3. Patient pancultured with a history of sepsis. Urinalysis is obtained and shows 500 leukocyte esterase, 25-50 white blood cells, 5-10 squamous epithelial cells, 1+ bacteria. I believe this is contaminated. Patient is not having dysuria. Reviewed last lab workup and her urine culture was negative. Patient was given 3 L of normal saline. She is noted to be feeling very well. It is also noted that the patient had to be placed on oxygen although this is unclear what time she had to be placed on oxygen and the patient does not wear oxygen. She is 89% and the bed without oxygen on. CT brain was negative. Chest x-ray was negative. COVID, influenza, RSV are all negative. Will repeat the lactic acid and ambulate the patient without oxygen to see what her needs are. Will also recheck her blood pressure. Blood pressure 134/74. Patient still hypoxic. Repeat lactic acid is in normal limits. Given that she is hypoxic I will have her admitted to the hospitalist for evaluation. Impression: 1. Syncope 2. Hypoxia 3. Lactic acidosis 4. Closed head injury 5. Dehydration Lab Data Attestation: I reviewed the patient's lab results. Labs: Laboratory Results - last 24 hr 04/10/23 04/10/23 04/10/23 16:40 17:54 21:20 WBC 5.5 RBC 3.35 L Hgb 10.0 L Hct 31.8 L MCV 94.9 MCH 29.9 MCHC 31.4 L RDW Std Deviation 51.3 H RDW Coeff of [place] 14.8 H Plt Count 158 MPV 10.2 Immature Gran % (Auto) 0.200 Neut % (Auto) 72.1 H Lymph % (Auto) 13.2 L [place] % (Auto) 14.1 H Eos % (Auto) 0.2 Baso % (Auto) 0.2 Absolute Neuts (auto) 3.9 Absolute Lymphs (auto) 0.72 L Nucleated RBC % 0 PT 14.7 INR 1.1 APTT 33.5 Sodium 135 L Potassium 4.0 Chloride 100 Carbon Dioxide 28.0 Anion Gap 7 BUN 22 H Creatinine 1.48 H Est GFR (MDRD) Af Amer 44 L Est GFR (MDRD) Non-Af 36 L BUN/Creatinine Ratio 14.9 Glucose 173 H Lactic Acid 3.3 H* 1.8 Calcium 9.1 Total Bilirubin 0.40 AST 63 H ALT 40 Alkaline Phosphatase 65 Troponin I High Sens 20 Total Protein 6.9 Albumin 3.2 Globulin 3.7 Albumin/Globulin Ratio 0.9 Urine Color Yellow Urine Clarity Cloudy Urine pH 5.0 Ur Specific [place] 1.020 Urine Protein 100 H Urine Glucose (UA) Normal Urine Ketones 5 H Urine Occult Blood 50 H Urine Nitrite Negative Urine Bilirubin 1 H Urine Urobilinogen Normal Ur Leukocyte Esterase 500 H Urine RBC 0-5 SEEN Urine WBC 25-50 SEEN Ur Squamous Epith Cells 5-10 SEEN Ur Renal Epithelial Cell 5-10 SEEN Urine Bacteria 1+ Hyaline Casts 0-5 SEEN Urine Mucus 0 SEEN Radiography Diagnostic Testing: Clinical Impression(s) from Imaging Studies Brain CT 04/10/23 16:00 IMPRESSION: Chronic involutional changes of the brain. No acute abnormality. Electronically Signed: Emil Winston MD at 17:13 EST , Chest X-Ray 04/10/23 17:01 IMPRESSION: No definite acute or significant abnormality seen. Electronically Signed: Emil Winston MD at 17:17 EST , Discharge Plan Triage Chief Complaint: Dizziness ED Provider: Tadeo Hutchinson Dx/Rx/DC Orders Prescriptions: No Action amitriptyline 50 mg tablet 50 mg PO QHS gabapentin 100 mg capsule 100 mg PO TID Patient Comments: PT STATES ONLY TAKES ONE CAPSULE TWICE A DAY ( OF 03/10/23) Trulicity 3 mg/0.5 mL pen injector 3 mg subcut TU atorvastatin 40 mg tablet 40 mg PO QHS Slow-Mag 71.5 mg tablet,delayed release (DR/EC) 71.5 mg PO BID ondansetron HCl 8 mg tablet 8 mg PO Q12H PRN (Reason: NAUSEA ) metformin 500 MG tablet 2 tab PO BID Qty: 120 0RF Hold Instructions: Resume on 03/21/23. silver sulfadiazine 1 % cream 1 applic topical DAILY PRN (Reason: BURN) Rx Instructions: APPLY ONE APPLICATION ONCE DAILY NEEDED TO HAND glimepiride 4 mg tablet 4 mg PO BID acetaminophen [Acetaminophen Extra Strength] 500 mg tablet 500 mg PO Q6H PRN (Reason: PAIN ) cefdinir 300 mg capsule 300 mg PO BID Qty: 14 0RF aspirin [Adult Low Dose Aspirin] 81 mg tablet,delayed release (DR/EC) 81 mg PO DAILY Jardiance 10 mg tablet 10 mg PO DAILY Qty: 30 11RF Primary Care Provider: Deven Van Referrals: Deven Van MD [Primary Care Provider] -
--- NOTE | 2023-04-10 16:00 | CT_ITS ---
STUDY: CT BRAIN WITHOUT CONTRAST REASON FOR EXAM: Female, 77 years old. head injury RADIATION DOSAGE (If Supplied By Facility): CTDIvol = ( 44.99 ) mGy, DLP = ( 863.6 ) mGycm TECHNIQUE: Transaxial CT imaging of the brain was performed without administration of intravenous contrast material. Individualized dose optimization techniques were used for this CT. COMPARISON: No relevant priors. FINDINGS: Normal soft tissue structures. 3 cm heavily calcified hemispheric mass adjacent to posterior left parietal bone with exostosis. Otherwise negative Calvarium. Normal size ventricles and extra-axial spaces for the patient''s age. There are areas of decreased attenuation within the white matter tracts of the supratentorial brain, consistent with microvascular disease changes. Normal basal ganglia and thalami. Normal brainstem. Normal cerebellum. There is no intracranial hemorrhage. There are no findings of an acute ischemic infarction. Normal visualized paranasal sinuses. CT/Brain/Head without Contrast IMPRESSION: Chronic involutional changes of the brain. No acute abnormality. Electronically Signed: Emil Winston MD at 17:13 EST ,
--- NOTE | 2023-04-10 17:01 | RAD_ITS ---
STUDY: X-RAY CHEST REASON FOR EXAM: Female, 77 years old. weakness TECHNIQUE: Single AP portable view of the chest. COMPARISON: 03/10/2023 FINDINGS: Stable left indwelling central line terminating near the cavoatrial junction. The lungs are clear and expanded. There is no demonstrated pleural abnormality. Normal size heart. Normal mediastinum and sharon. Normal visualized pulmonary arteries. Normal visualized aortic arch and descending thoracic aorta. Normal visualized thoracic spine. Normal visualized ribs, clavicles, and shoulders. There is no demonstrated abnormality of the visualized soft tissue structures of the upper abdomen. RAD/Chest 1 View (Portable) IMPRESSION: No definite acute or significant abnormality seen. Electronically Signed: Emil Winston MD at 17:17 EST ,
[2023-04-10] MEDS: 0.9% Normal Saline (1000mL) 1,000 ML 999 ML IV ×2 (17:10→18:19)
[2023-04-10 17:16] LABS: Absolute Lymphocyte Count 0.72 X10^3/uL (0.83-4.51); Absolute Neutrophil Count 3.9 X10^3/uL (2.0-7.7); Basophil# 0.01 X10^3/uL; Basophil% 0.2 % (0-1); Eosinophil# 0.01 X10^3/uL; Eosinophils% 0.2 % (0-5); Hematocrit 31.8 % (37-47); Lymphocyte # 0.72 X10^3/ul (0.83-4.51); Lymphocyte % 13.2 % (19-41); Mean Corp Hgb Conc 31.4 g/dL (32-36); Mean Corpuscular Hgb 29.9 pg (27.0-32.0); Mean Corpuscular Volume 94.9 fL (81-99); Mean Platelet Vol. 10.2 fl (6.2-12.0); Monocyte# 0.77 X10^3/uL; Monocyte% 14.1 % (0-10); NRBC Flagged by Analyzer 0 % (0-5); Neutrophil # 3.94 X10^3/uL (2.7-7.7); Neutrophil % 72.1 % (47-70); Platelet Count 158 K/mm3 (150-450); RBC Distribution Width CV 14.8 % (11.6-14.6); RBC Distribution Width SD 51.3 fl (35.1-43.9); Red Blood Count 3.35 M/mm3 (4.2-5.4); White Blood Count 5.5 K/mm3 (4.4-11.0)
[2023-04-10 17:25] LABS: International Normalized Ratio 1.1; Prothrombin Time (Protime)PT. 14.7 SECONDS (11.7-14.9)
[2023-04-10 17:39] LABS: ALB/GLOB Ratio 0.9 RATIO (0.9-2.4); AST(SGOT) 63 U/L (15-37); Alanine Aminotransfer ALT/SGPT 40 U/L (13-56); Albumin, Serum 3.2 g/dL (3.2-5.0); Alkaline Phosphatase 65 U/L (45-117); Anion Gap 7 (5-15); BUN 22 mg/dL (7-18); BUN/Creat Ratio 14.9 RATIO (10-20); Calcium,Total 9.1 mg/dL (8.5-10.1); Chloride 100 mmol/L (98-107); Creatinine, Serum 1.48 mg/dL (0.55-1.02); EST Glomerular Filtration Rate 36 mL/min (>60); Est Glom Filt Rate - Afr Amer 44 mL/min (>60); Globulin 3.7 g/dL (2.2-4.2); Glucose 173 mg/dL (74-106); Protein, Total 6.9 g/dL (6.4-8.2); Sodium Level 135 mmol/L (136-145); Troponin-I HS 20 pg/mL (3.0-54.0)
[2023-04-10 17:44] LABS: Lactic Acid 3.3 mmol/L (0.4-1.9)
[2023-04-10 17:59] LABS: Mucous, Urine 0 SEEN /hpf (<or=2+)
[2023-04-10 18:17] LABS: Color, Urine Yellow (Yellow); Glucose, Dipstick Normal (Normal); Ketone-Dipstick 5 mg/dl (Negative); Leukocyte Esterase-Dipstick 500 /ul (Negative); Nitrite-Dipstick Negative (Negative); Occult Blood-Urine 50 /ul (Negative); Protein-Dipstick 100 mg/dl (Negative); Urine Clarity Cloudy (Clear); Urine Urobilinogen Normal (Normal)
[2023-04-10 18:19] LABS: Urine Bilirubin Dipstick 1 mg/dL (Negative)
[2023-04-10 18:24] LABS: Renal Epithelial Cells 5-10 SEEN /hpf (0-5); Squamous Epithelial Cells - UA 5-10 SEEN /hpf (5-10); White Blood Cells 25-50 SEEN /hpf (0-5)
[2023-04-10 18:25] LABS: Bacteria 1+ /hpf (None Seen); Red Blood Cells-Urine 0-5 SEEN /hpf (0-5)
[2023-04-10 18:26] LABS: Hyaline Cast 0-5 SEEN /lpf (0-5)
[2023-04-10 19:11] LABS: Partial Thromboplast Time 33.5 Seconds (24.1-36.2)
--- NOTE | 2023-04-10 20:38 | ED.RN ---
DR GASTELUM OFFERED THEM A SANDWICH, PT REFUSED. THIS RN GAVE PT CRACKERS AND CHEESE.
[2023-04-10 20:51] LABS: Reflex Lactate? Y
--- NOTE | 2023-04-10 21:52 | HP.PCM.HOS_ITS ---
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 Hypotension 79/50 at home. HPI Narrative PRICILA HOOKER, is a 77 F with multiple comorbidities came to ED with dizziness and hypotension. Apparently patient tried to go to bed around 2:30 AM today she probably felt dizzy and lightheaded and fell down. She does not remember how she fell down and also unsure whether she had syncope but eventually she had it might have been very transient SGL to get help from the family members who are on the second floor of the house. She denies being vertigo. No nausea or vomiting. Recently, her oncologist Dr. Noel Hernandes sent her to [facility] to evaluate for arrhythmia but and saw entry level administrative assistant there who did EKG and was told that she does not have A-fib. Cardiology stopped her lisinopril and Jardiance. She has c/o very and has Mediport on the left subclavicular region. She had last radiation in March this year and chemotherapy probably DecemberJanuary 2023. She is not sure whether she hit her head but she does not have any major injury or pain. Denies headache or neck pain visual complaints slurred speech. Currently she is back on baseline. Denies chest pain or pressure or tightness. In ED, initial vitals shows blood pressure 98/56, heart rate 117 but later vitals improved and BP normal 130/74 and heart rate 90/min. Chest x-ray and CT head was done does not show acute significant abnormality. Patient is further admitted. [facility] Medical History Benign neoplasm of colon Chest pain Cholecystitis CKD (chronic kidney disease) stage 3, GFR 30-59 ml/min Coronary artery disease Diabetes Dyslipidemia Endometrial cancer Endometrial cancer, FIGO stage IIIC Former smoker GERD (gastroesophageal reflux disease) History of cancer of uterus Hypercholesteremia Hypertension Hypomagnesemia Neuropathy Nonischemic cardiomyopathy Obesity Pancytopenia Home Medications metformin 500 mg tablet 2 tab PO BID DIABETES #120 tabs 05/06/20 [Rx Last Taken 03/10/23] amitriptyline 50 mg tablet 50 mg PO QHS DEPRESSION 12/23/22 [History Last Taken 03/09/23] atorvastatin 40 mg tablet 40 mg PO QHS CHOLESTEROL 12/23/22 [History Last Taken 03/09/23] dulaglutide 3 mg/0.5 mL subcutaneous pen injector (Trulicity) 3 mg subcut TU DIABETES 12/23/22 [History Last Taken 03/09/23] gabapentin 100 mg capsule 100 mg PO TID NERVE PAIN 12/23/22 [History Last Taken 03/10/23] empagliflozin 10 mg tablet (Jardiance) 10 mg PO DAILY DIABETES #30 tabs 12/29/22 [Rx Last Taken 03/10/23] magnesium chloride 71.5 mg (magnesium chloride) tablet,delayed release (Slow- Mag) 71.5 mg PO BID SUPPLEMENT 12/29/22 [History Last Taken 03/10/23] ondansetron HCl 8 mg tablet 8 mg PO Q12H PRN NAUSEA 12/29/22 [History Last Taken Unknown] aspirin 81 mg tablet,delayed release (Adult Low Dose Aspirin) 81 mg PO DAILY HEART HEALTH 01/24/23 [History Last Taken 03/10/23] acetaminophen 500 mg tablet (Acetaminophen Extra Strength) 500 mg PO Q6H PRN PAIN 03/10/23 [History Last Taken Unknown] glimepiride 4 mg tablet 4 mg PO BID DIABETES 03/10/23 [History Last Taken 03/10/23] silver sulfadiazine 1 % topical cream 1 applic topical DAILY PRN BURN 03/10/23 [History Last Taken 03/10/23] cefdinir 300 mg capsule 300 mg PO BID #14 caps 03/12/23 [Rx Last Taken Unknown] Allergy/AdvReac Type Severity Reaction Status Date / Time No Known Allergies Allergy Verified 04/10/23 14:40 Family History Father Myocardial infarction Mother Heart disease irregular heart rate Colon cancer Surgical History History of cholecystectomy History of total left knee replacement (TKR) (~01/2011) History of total right knee replacement (TKR) (~05/11/11) Hx laparoscopic cholecystectomy Hx of cataract surgery Hx of hysterectomy, total Social History household members: none Smoking Status: Former smoker how long ago did patient quit smokin alcohol intake: never substance use type: does not use ROS ROS Narrative Constitutional: Reports fatigue and weakness. Fall. No fever. HEENT: Denies recent URI symptoms. Reports systems reviewed and no addt'l complaints, except as documented Respiratory/Chest: No acute shortness of breath or respiratory distress or wheezing. CVS: No chest pain pressure or tightness. Denies missed or extra heartbeat. Gastrointestinal: Denies coffee ground emesis, hematemesis or vomiting. No abdominal pain Genitourinary: Denies burning urination or new urinary tract symptoms Musculoskeletal: Denies acute joint pain or limited range of motion. No acute injury Neurologic: Denies seizure-like symptoms. skin: No ulcer. No rash Endocrinology: Reports systems reviewed and no addt'l complaints, except as documented Hematologic/Lymphatic: Reports systems reviewed and no addt'l complaints, except as documented Rest 14 ROS are negative except as mentioned in HPI Vital Signs Vital Signs Vital Signs: 04/10/23 14:41 04/10/23 15:34 04/10/23 14:43 Temperature 99 F Temperature Source Temporal Pulse Rate 117 H Respiratory Rate 16 Respiratory Pattern Normal Blood Pressure 108/56 L Blood Pressure Mean 73 Pulse Ox 92 Oxygen Delivery Method Room Air Room Air Oxygen Flow Rate (L/min) 04/10/23 16:48 04/10/23 16:50 04/10/23 17:08 Temperature Temperature Source Pulse Rate 99 103 H 100 Respiratory Rate 21 H 13 22 H Respiratory Pattern Blood Pressure Blood Pressure Mean Pulse Ox 88 91 93 Oxygen Delivery Method Oxygen Flow Rate (L/min) 04/10/23 17:10 04/10/23 17:15 04/10/23 17:20 Temperature Temperature Source Pulse Rate 99 99 97 Respiratory Rate 28 H 25 H 15 Respiratory Pattern Blood Pressure 123/73 H Blood Pressure Mean 87 Pulse Ox 93 87 90 Oxygen Delivery Method Oxygen Flow Rate (L/min) 04/10/23 17:30 04/10/23 17:48 04/10/23 17:50 Temperature Temperature Source Pulse Rate 98 109 H 102 H Respiratory Rate 22 H 19 H 16 Respiratory Pattern Blood Pressure 142/81 H Blood Pressure Mean 99 Pulse Ox 97 84 Oxygen Delivery Method Oxygen Flow Rate (L/min) 04/10/23 18:00 04/10/23 18:10 04/10/23 18:15 Temperature Temperature Source Pulse Rate 95 94 94 Respiratory Rate 25 H 25 H 26 H Respiratory Pattern Blood Pressure 120/66 126/63 H Blood Pressure Mean 81 82 Pulse Ox 97 98 98 Oxygen Delivery Method Oxygen Flow Rate (L/min) 04/10/23 19:31 04/10/23 21:08 04/10/23 21:23 Temperature Temperature Source Pulse Rate 93 94 Respiratory Rate 24 H 21 H Respiratory Pattern Blood Pressure 121/58 H 141/73 H Blood Pressure Mean 79 95 Pulse Ox 97 95 91 Oxygen Delivery Method Nasal Cannula Room Air Room Air Oxygen Flow Rate (L/min) 2 Weight Weight: 264 lb 12.403 oz Body Mass Index (BMI) 41.5 Physical Exam Narrative General: Alert, Oriented x3, Cooperative HEENT: Atraumatic, PERRLA, EOMI, Normocephalic Oral: Oral mucosa dry. No Gingival or Mucosal Lesions/ Ulcerations Neck: Supple, No JVD, Negative Carotid Bruits Chest wall/Lungs: Mediport over left upper chest. Air entry diminished in bilateral lung bases. No crepitation/rhonchi Cardiovascular: Regular rate, Regular Rhythm, Normal S1, Normal S2, No M/G/R Abdomen: Bowel Sounds Present, Soft, Non Tender, Non-Distended. No palpable ascites. : No dysuria. No renal angle tenderness. No suprapubic tenderness. Extremities: No edema, Capillary Refill Less than 3 Seconds Skin: No rashes, No breakdown Musculoskeletal: No Tenderness to Palpation of Joints or Extremities. ROM full. Degenerative arthritis of knees. Neurological: Cranial nerves II-XII grossly intact, DTR 2+/4. No acute focal neurological deficit. Psych/Mental Status: Normal Affect, Appropriate. Results Lab / Micro Data 04/10/23 16:40 04/10/23 16:40 Labs: Laboratory Results - last 24 hr 04/10/23 16:40: WBC 5.5, RBC 3.35 L, Hgb 10.0 L, Hct 31.8 L, MCV 94.9, MCH 29.9, MCHC 31.4 L, RDW Std Deviation 51.3 H, RDW Coeff of Casper 14.8 H, Plt Count 158, MPV 10.2, Immature Gran % (Auto) 0.200, Neut % (Auto) 72.1 H, Lymph % (Auto) 13.2 L, [place] % (Auto) 14.1 H, Eos % (Auto) 0.2, Baso % (Auto) 0.2, Absolute Neuts (auto) 3.9, Absolute Lymphs (auto) 0.72 L, Nucleated RBC % 0, PT 14.7, INR 1.1, APTT 33.5, Sodium 135 L, Potassium 4.0, Chloride 100, Carbon Dioxide 28.0, Anion Gap 7, BUN 22 H, Creatinine 1.48 H, Est GFR (MDRD) Af Amer 44 L, Est GFR (MDRD) Non-Af 36 L, BUN/Creatinine Ratio 14.9, Glucose 173 H, Lactic Acid 3.3 H* , Calcium 9.1, Total Bilirubin 0.40, AST 63 H, ALT 40, Alkaline Phosphatase 65, Troponin I High Sens 20, Total Protein 6.9, Albumin 3.2, Globulin 3.7, Albumin/Globulin Ratio 0.9 04/10/23 17:54: Urine Color Yellow, Urine Clarity Cloudy, Urine pH 5.0, Ur Specific Bureau 1.020, Urine Protein 100 H, Urine Glucose (UA) Normal, Urine Ketones 5 H, Urine Occult Blood 50 H, Urine Nitrite Negative, Urine Bilirubin 1 H, Urine Urobilinogen Normal, Ur Leukocyte Esterase 500 H, Urine RBC 0-5 SEEN, Urine WBC 25-50 SEEN, Ur Squamous Epith Cells 5-10 SEEN, Ur Renal Epithelial Cell 5-10 SEEN, Urine Bacteria 1+, Hyaline Casts 0-5 SEEN, Urine Mucus 0 SEEN Micro: Microbiology 04/10/23 16:44 Mucosa - Nose SARS-CoV-2, Influenza & RSV (PCR) - Final Imaging Radiology Impression Brain CT 04/10/23 16:00 IMPRESSION: Chronic involutional changes of the brain. No acute abnormality. Electronically Signed: Emil Winston MD at 17:13 EST , Chest X-Ray 04/10/23 17:01 IMPRESSION: No definite acute or significant abnormality seen. Electronically Signed: Emil Winston MD at 17:17 EST , Assessment & Plan Assessment/Plan (1) Hypotension (arterial): (2) Acute kidney injury: PLAN: Plan This 77-year-old female admitted for further evaluation of hypotension, fall and possible syncope 1. Hypotension at home, fall and possible syncope with chronic mild HFrEF/pedro schemic cardiomyopathy probably following chemotherapy: Patient is being admitted to PCU. There was no witnessed fall therefore syncope is unclear what she had syncope about a year ago. Patient blood pressure is in normal range although was low when she came to the ED. Continue IV fluid. She recently had echo on April 2023 as mentioned below which shows mild decreased EF 45 as compared to previous echo of April 2020. Orthostatic blood pressure tomorrow AM. She was told to discontinue losartan and Jardiance and recent [facility] entry level administrative assistant visit in April 2023. 2. JACY, etiology unclear possible prerenal or due to medications with baseline CKD stage IIIa: She denies acute loss of fluid including vomiting or diarrhea but clinically she looks dehydrated. IV fluid normal saline ordered. Monitor kidney function and electrolytes. Lactic acid elevated 3.3 but repeat one n ormal. I do not suspect any infection based on the clinical history and exam. UA shows LE 500, WBC 25-50 cells, epithelial 5-10 cells. I do not think antibiotic is indicated but blood cultures x 2 and urine culture is ordered from ED. She was recently admitted in March 2023 for sepsis due to acute cystitis. 3. Diabetes mellitus type 2: Accu-Cheks before meals and at bedtime coverage with Humalog sliding scale. Hold oral hypoglycemic agents. Glucose in BMP is 173. 4. Morbid obesity: BMI 41.5 kg/m?. Weight loss counseling done. 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 5. Hypertension: She was hypotensive at home BP 79/59. Currently normotensive. Hold antihypertensive medications. 6. Dyslipidemia: On statin therapy continued. 7. Endometrial cancer stage IIIc: She had a hysterectomy and chemotherapy which she completed January 2023, carboplatin paclitaxel and pembrolizumab. Patient completed radiation in March 2023. She follows Dr. Noel Hernandes. 8. Anemia, normocytic normochromic of chronic disease: H&H 10.0/31.8%. Platelet count normal 158,000. Normal WBC count. 9. VTE prophylaxis: Enoxaparin 40 mgl subcu daily. Discontinue if platelet c ount drops less than 50,000 or hemoglobin less than 8 g% Living will/advanced directive/end of life care: Patient does not have living will or advanced directive. Her sister is next of kin. After discussion of benefits/risks procedures involved with full code, DNR CC arrest and DNR CC, the patient opted for full code. Patient does want artificial life support including intubation, tube feed, ventilator and/chest compression, central venous catheter, vasopressor and DC shock if needed Total time spent in [id number] encounter in discussion of advanced directive 17 minutes. Microbiology Past 72 Hours 04/10/23 16:44 Mucosa - Nose SARS-CoV-2, Influenza & RSV (PCR) - Final Laboratory Results 04/10/23 16:40: WBC 5.5, RBC 3.35 L, Hgb 10.0 L, Hct 31.8 L, MCV 94.9, MCH 29.9, MCHC 31.4 L, RDW Std Deviation 51.3 H, RDW Coeff of [place]per 14.8 H, Plt Count 158, MPV 10.2, Immature Gran % (Auto) 0.200, Neut % (Auto) 72.1 H, Lymph % (Auto) 13.2 L, Preston % (Auto) 14.1 H, Eos % (Auto) 0.2, Baso % (Auto) 0.2, Absolute Neuts (auto) 3.9, Absolute Lymphs (auto) 0.72 L, Nucleated RBC % 0, PT 14.7, INR 1.1, APTT 33.5, Sodium 135 L, Potassium 4.0, Chloride 100, Carbon Dioxide 28.0, Anion Gap 7, BUN 22 H, Creatinine 1.48 H, Est GFR (MDRD) Af Amer 44 L, Est GFR (MDRD) Non-Af 36 L, BUN/Creatinine Ratio 14.9, Glucose 173 H, Lactic Acid 3.3 H*, Calcium 9.1, Phosphorus 3.7, Magnesium 1.7, Total Bilirubin 0.40, AST 63 H, ALT 40, Alkaline Phosphatase 65, Troponin I High Sens 20, Total Protein 6.9, Albumin 3.2, Globulin 3.7, Albumin/Globulin Ratio 0.9 04/10/23 17:54: Urine Color Yellow, Urine Clarity Cloudy, Urine pH 5.0, Ur Specific Bureau 1.020, Urine Protein 100 H, Urine Glucose (UA) Normal, Urine Ketones 5 H, Urine Occult Blood 50 H, Urine Nitrite Negative, Urine Bilirubin 1 H, Urine Urobilinogen Normal, Ur Leukocyte Esterase 500 H, Urine RBC 0-5 SEEN, Urine WBC 25-50 SEEN, Ur Squamous Epith Cells 5-10 SEEN, Ur Renal Epithelial C ell 5-10 SEEN, Urine Bacteria 1+, Hyaline Casts 0-5 SEEN, Urine Mucus 0 SEEN 04/10/23 21:20: Lactic Acid 1.8 Patient had echo in 04-02-23 in [facility]. Reported EF 45%, LV systolic function mildly decreased. Mild concentric LVH. RV size and systolic function normal. No significant valvular dysfunction except trace MR. No evidence of intracardiac shunting or pleural effusion. Patient previous echo in April 2020 showed EF 60% with stage I diastolic dysfunction. Charges/Coding Visit Charges Inpatient E&M: 38919 Init Hosp L3 Procedures Hospitalists Procedures: 09020 Advncd Care Plan 30 Min
[2023-04-10 22:02] LABS: Lactic Acid 1.8 mmol/L (0.4-1.9)
[2023-04-10 23:26] LABS: Magnesium 1.7 mg/dL (1.6-2.6); Phosphorus 3.7 mg/dL (2.5-4.9)
[2023-04-11] VITALS (8 sets, daily range): BP systolic 103–156; BP diastolic 56–84; PULSE 85–103; RESP 16–18; TEMP 36.7–36.9; O2SAT 87–98; BMI 41.9
[2023-04-11 01:19] LABS: Bedside Glucose 62 mg/dL (74-106)
[2023-04-11] MEDS: 0.9% Normal Saline (1000mL) 1,000 ML 100 ML IV ×2 (01:27→10:24)
[2023-04-11] MEDS: Gabapentin 100 MG Capsule PO ×3 (05:43→21:18)
[2023-04-11 07:17] LABS: Absolute Lymphocyte Count 0.95 X10^3/uL (0.83-4.51); Absolute Neutrophil Count 2.1 X10^3/uL (2.0-7.7); Basophil# 0.02 X10^3/uL; Basophil% 0.5 % (0-1); Eosinophil# 0.02 X10^3/uL; Eosinophils% 0.5 % (0-5); Hemoglobin 9.2 g/dL (12.0-15.0); Lymphocyte # 0.95 X10^3/ul (0.83-4.51); Lymphocyte % 25.5 % (19-41); Mean Corp Hgb Conc 31.7 g/dL (32-36); Mean Corpuscular Hgb 30.1 pg (27.0-32.0); Mean Corpuscular Volume 94.8 fL (81-99); Mean Platelet Vol. 9.9 fl (6.2-12.0); Monocyte# 0.68 X10^3/uL; Monocyte% 18.2 % (0-10); NRBC Flagged by Analyzer 0 % (0-5); Neutrophil # 2.05 X10^3/uL (2.7-7.7); Platelet Count 146 K/mm3 (150-450); RBC Distribution Width CV 14.9 % (11.6-14.6); RBC Distribution Width SD 51.7 fl (35.1-43.9); Red Blood Count 3.06 M/mm3 (4.2-5.4); White Blood Count 3.7 K/mm3 (4.4-11.0)
[2023-04-11 07:37] LABS: Anion Gap 5 (5-15); BUN 22 mg/dL (7-18); BUN/Creat Ratio 20.8 RATIO (10-20); Calcium,Total 8.2 mg/dL (8.5-10.1); Chloride 107 mmol/L (98-107); Creatinine, Serum 1.06 mg/dL (0.55-1.02); EST Glomerular Filtration Rate 53 mL/min (>60); Est Glom Filt Rate - Afr Amer 65 mL/min (>60); Estimated Creatinine Clearance 60.01 ml/min; Glucose 66 mg/dL (74-106); Potassium 3.8 mmol/L (3.5-5.1); Sodium Level 139 mmol/L (136-145); Thyroid Stim Hormone (TSH) 0.45 uIU/mL (0.358-3.74)
[2023-04-11] MEDS: Amitriptyline 25 MG Tablet 50 MG PO (09:20)
[2023-04-11 09:54] LABS: Bedside Glucose 56 mg/dL (74-106)
[2023-04-11] MEDS: Aspirin E.C. 81 MG Tablet PO (10:23)
[2023-04-11] MEDS: Enoxaparin 40 MG/0.4 ML Syringe SC (10:23)
[2023-04-11 10:46] LABS: Bedside Glucose 104 mg/dL (74-106)
[2023-04-11] MEDS: Acetaminophen 325 MG Tablet 650 MG PO (12:54)
--- NOTE | 2023-04-11 15:46 | PCM.PN.HOSP ---
Reason for Visit Reason for Visit: Diagnoses Hypotension, unspecified (04/10/23) Acute kidney failure, unspecified (04/10/23) Subjective Subjective Patient admitted yesterday evening for hypotension and presyncopal symptoms at home. Patient seen at bedside this morning. Patient was sitting up comfortably in bed, conversing normally, no acute distress. Patient states this morning that she feels significantly improved at rest from yesterday after receiving IV fluids. She had not gotten out of bed yet this morning. She denied any pain or discomfort this morning. Denied any fevers or chills. No other acute concerns at this time. Objective Data Objective Data Vital Signs: Vital Signs Temp Pulse Resp BP Pulse Ox O2 Del Method O2 Flow Rate 98.1 F 96 16 135/62 H 95 Nasal Cannula 2 04/11/23 10:10 04/11/23 10:10 04/11/23 10:10 04/11/23 10:10 04/11/23 10:10 04/11/23 10:10 04/11/23 10:10 Oxygen Flow Rate (L/min) 2 Oxygen Delivery Method Nasal Cannula Weight: 121.4 kg Body Mass Index (BMI) 41.9 Intake & Output: Intake and Output for Last 24 Hours 04/09/23 04/10/23 04/11/23 23:59 23:59 23:59 Intake Total 1999 1375 / 1375 Balance 1999 1375 / 1375 Lab / Micro Data 04/11/23 06:37 04/11/23 06:37 Labs: Laboratory Results - last 24 hr 04/10/23 16:40: WBC 5.5, RBC 3.35 L, Hgb 10.0 L, Hct 31.8 L, MCV 94.9, MCH 29.9, MCHC 31.4 L, RDW Std Deviation 51.3 H, RDW Coeff of Casper 14.8 H, Plt Count 158, MPV 10.2, Immature Gran % (Auto) 0.200, Neut % (Auto) 72.1 H, Lymph % (Auto) 13.2 L, [place] % (Auto) 14.1 H, Eos % (Auto) 0.2, Baso % (Auto) 0.2, Absolute Neuts (auto) 3.9, Absolute Lymphs (auto) 0.72 L, Nucleated RBC % 0, PT 14.7, INR 1.1, APTT 33.5, Sodium 135 L, Potassium 4.0, Chloride 100, Carbon Dioxide 28.0, Anion Gap 7, BUN 22 H, Creatinine 1.48 H, Est GFR (MDRD) Af Amer 44 L, Est GFR (MDRD) Non-Af 36 L, BUN/Creatinine Ratio 14.9, Glucose 173 H, Lactic Acid 3.3 H*, Calcium 9.1, Phosphorus 3.7, Magnesium 1.7, Total Bilirubin 0.40, AST 63 H, ALT 40, Alkaline Phosphatase 65, Troponin I High Sens 20, Total Protein 6.9, Albumin 3.2, Globulin 3.7, Albumin/Globulin Ratio 0.9 04/10/23 17:54: Urine Color Yellow, Urine Clarity Cloudy, Urine pH 5.0, Ur Specific [place] 1.020, Urine Protein 100 H, Urine Glucose (UA) Normal, Urine Ketones 5 H, Urine Occult Blood 50 H, Urine Nitrite Negative, Urine Bilirubin 1 H, Urine Urobilinogen Normal, Ur Leukocyte Esterase 500 H, Urine RBC 0-5 SEEN, Urine WBC 25-50 SEEN, Ur Squamous Epith Cells 5-10 SEEN, Ur Renal Epithelial Cell 5-10 SEEN, Urine Bacteria 1+, Hyaline Casts 0-5 SEEN, Urine Mucus 0 SEEN 04/10/23 21:20: Lactic Acid 1.8 04/11/23 00:46: POC Glucose 62 L 04/11/23 06:37: WBC 3.7 L, RBC 3.06 L, Hgb 9.2 L, Hct 29.0 L, MCV 94.8, MCH 30.1, MCHC 31.7 L, RDW Std Deviation 51.7 H, RDW Coeff of [place]per 14.9 H, Plt Count 146 L, MPV 9.9, Immature Gran % (Auto) 0.300, Neut % (Auto) 55.0, Lymph % (Auto) 25.5, [place] % (Auto) 18.2 H, Eos % (Auto) 0.5, Baso % (Auto) 0.5, Absolute Neuts (auto) 2.1, Absolute Lymphs (auto) 0.95, Nucleated RBC % 0, Sodium 139, Potassium 3.8, Chloride 107, Carbon Dioxide 27.0, Anion Gap 5, BUN 22 H, Creatinine 1.06 H, Estim Creat Clear Calc 60.01, Est GFR (MDRD) Af Amer 65, Est GFR (MDRD) Non-Af 53 L, BUN/Creatinine Ratio 20.8 H, Glucose 66 L, Calcium 8.2 L, TSH 0.45 04/11/23 08:11: POC Glucose 56 L 04/11/23 10:21: POC Glucose 104 Micro: Microbiology 04/10/23 17:54 Urine, Clean Catch Urine Culture - Preliminary GNR 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 No acute abnormality. Electronically Signed: Emil Winston MD at 17:13 EST , Chest X-Ray 04/10/23 17:01 IMPRESSION: No definite acute or significant abnormality seen. Electronically Signed: Emil Winston MD at 17:17 EST , Physical Exam Const alert, oriented x3 and no apparent distress Constitutional Narrative: Pleasant elderly female, morbidly obese, sitting up comfortably in bed, conversing normally, no acute distress. General Appearance: cooperative and comfortable HEENT normocephalic, head/scalp atraumatic, hearing grossly normal bilaterally, nasal mucous membranes and turbinates normal and moist oral mucous membranes Eyes PERRL, EOMs intact bilaterally and conjunctivae normal Neck full ROM, no lymphadenopathy and supple Lymph Lymphatic: no lymphadenopathy noted Chest inspection of chest normal Resp normal respiratory effort, normal air movement, no use of accessory muscles and clear to auscultation bilaterally Cardio regular rate, regular rhythm, no murmurs and peripheral pulses 2+ throughout GI normal to inspection, nondistended, normoactive bowel sounds, soft to palpation, non-tender and non-distended Back/Spine normal ROM Extremity normal to inspection, full ROM and no pedal edema Skin no rashes or lesions noted Neuro no focal motor deficits and no sensory deficits noted Speech: speech normal Psych mental status grossly normal Assessment & Plan Assessment/Plan (1) Hypotension (arterial): (2) Acute kidney injury: (3) Nonischemic cardiomyopathy: PLAN: Plan Patient is a 77-year-old female who presented to [facility] ED on 04/10/2023 with hypotension and presyncopal symptoms. 1. Hypotension with presyncopal symptoms, improving Unclear etiology. Likely had some degree of volume depletion given improvement after IV fluid resuscitation. Mild HFrEF may have been contributing. BP 98/56, heart rate 117 on admit with JACY as noted below. Chest x-ray nonacute. UA noninfectious. S/p 2 L IV fluids on admit with improvement. 2. JACY on CKD stage III, resolved ? Creatinine 1.48 on admit, baseline creatinine 1.0-1.1. Creatinine improved to 1.06 on hospital day 2 after IV fluids. Adequate urine output. Resolved. 3. 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 Recent TTE at [facility] on 04/02/2023 showed EF 45%, mildly decreased LV systolic function, mild concentric LV hypertrophy, no significant valve abnormalities. Had been started on losartan and Jardiance recently but these were discontinued due to hypotension. 4. Endometrial cancer stage IIIc with recent treatment ? Follows with Dr. Hernandes. S/p hysterectomy, completed chemotherapy in January 2023 with carboplatin, paclitaxel and pembrolizumab. Completed radiation therapy in March 2023. Continue outpatient follow-up as previously scheduled. 5. Mild debility ? PT/OT/case management following. Likely either home with home health care or home with outpatient physical therapy on discharge. Chronic medical conditions: ? Type 2 diabetes mellitus with neuropathy: Home regimen of metformin 1000 g twice daily, glimepiride 4 mg twice daily, Trulicity. BG 173 on admit. Okay for sliding-scale insulin while inpatient, adjust as needed. A1c pending. Continue home gabapentin. ? Morbid obesity: BMI 41.9 on admit. Complicates hospital course, care and prognosis. ? CAD, hyperlipidemia, hypertension: Continue home aspirin, statin. Home losartan and Jardiance recently discontinued as noted above. ? Mood disorder: Continue home amitriptyline. ? Chronic normocytic anemia: Hemoglobin 10.0 on admit, decreased to 9.2 after IV fluid resuscitation. Baseline hemoglobin 9-10, stable. DVT prophylaxis: Lovenox twice daily CODE STATUS: Full code, verified Expected disposition: Home, 1 to 2 days Total clinical time spent by myself addressing the patient's medical issues, reviewing all the data, and collaborating with patient's care team: 35 minutes. Charges/Coding Visit Charges Inpatient E&M: 32237 Subs Hosp L2
[2023-04-11 16:21] LABS: Bedside Glucose 122 mg/dL (74-106)
[2023-04-11] MEDS: Atorvastatin Calcium 40 MG Tablet PO (21:21)
[2023-04-11] MEDS: Insulin Lispro 100 UNIT/ML INSULN.PEN SC (21:25)
[2023-04-11 21:51] LABS: Bedside Glucose 200 mg/dL (74-106)
[2023-04-12] MEDS: Acetaminophen 325 MG Tablet 650 MG PO (01:48)
[2023-04-12 03:45] VITALS: BP 101/66; PULSE 88; RESP 16; TEMP 36.9; O2SAT 95
[2023-04-12 04:16] VITALS: BMI 42.3
[2023-04-12] MEDS: Gabapentin 100 MG Capsule PO ×2 (05:00→13:30)
[2023-04-12 06:46] LABS: Bedside Glucose 128 mg/dL (74-106)
[2023-04-12 07:58] VITALS: O2SAT 94
[2023-04-12 08:33] VITALS: BP 147/72; PULSE 85; RESP 17; TEMP 36.3; O2SAT 98
[2023-04-12] MEDS: Aspirin E.C. 81 MG Tablet PO (08:37)
[2023-04-12] MEDS: Enoxaparin 40 MG/0.4 ML Syringe SC (08:37)
--- NOTE | 2023-04-12 10:10 | CASEMGMT ---
Met with?patient to complete RAY form. RAY form explained to patient who voiced understanding and signed form. Original form placed in pt?s chart and copy provided to?patient. Carole Marin, Discharge Planning Asst
[2023-04-12] MEDS: Insulin Lispro 100 UNIT/ML INSULN.PEN SC (11:35)
[2023-04-12 12:07] LABS: Bedside Glucose 164 mg/dL (74-106)
--- NOTE | 2023-04-12 12:38 | DCINST_ITS ---
Discharge Instructions Diet Discharge Diet: No restrictions Activity Discharge Activity: No Restrictions Weight Bearing Status: Full weight bearing Follow Up Care Test Results: Test results from this visit will be discussed in further detail at your follow- up appointment, if applicable. Discharge Plan Admission Admit Date/Time: 04/10/23 21:54 Primary Reason for Your Visit: hypotension and presyncopal symptoms Attending Provider: Ramy Anglin Primary Care Provider: Deven Van Consulting Providers: Syed Muñiz Instructions Additional Instructions / Restrictions: Continue all home medications as normal. Follow-up with your primary care docto r as needed and with Dr. Hernandes as previously scheduled. Discharge Orders/Prescriptions Prescriptions: Continued amitriptyline 50 mg tablet 50 mg PO QHS gabapentin 100 mg capsule 100 mg PO TID Patient Comments: PT STATES ONLY TAKES ONE CAPSULE TWICE A DAY ( OF 03/10/23) Trulicity 3 mg/0.5 mL pen injector 3 mg subcut TU atorvastatin 40 mg tablet 40 mg PO QHS Slow-Mag 71.5 mg tablet,delayed release (DR/EC) 71.5 mg PO BID ondansetron HCl 8 mg tablet 8 mg PO Q12H PRN (Reason: NAUSEA ) metformin 500 MG tablet 2 tab PO BID Qty: 120 0RF Hold Instructions: Resume on 03/21/23. silver sulfadiazine 1 % cream 1 applic topical DAILY PRN (Reason: BURN) Rx Instructions: APPLY ONE APPLICATION ONCE DAILY NEEDED TO HAND glimepiride 4 mg tablet 4 mg PO BID acetaminophen [Acetaminophen Extra Strength] 500 mg tablet 500 mg PO Q6H PRN (Reason: PAIN ) aspirin [Adult Low Dose Aspirin] 81 mg tablet,delayed release (DR/EC) 81 mg PO DAILY Discontinued cefdinir 300 mg capsule 300 mg PO BID Qty: 14 0RF Referrals / Follow Up: Deven Van MD [Primary Care Provider] - Disposition Disposition (needs filled in before D/C Order can be placed): Home, Self Care
--- NOTE | 2023-04-12 12:41 | DS.PCM_ITS ---
Providers Date of Admission: 04/10/23 Date of Discharge: 04/12/23 Primary Care Physician: Dr. Deven Van MD Reason For Visit: HYPOTENSION, DIZZINESS, SYNCOPE? Diagnosis Discharge Diagnosis (1) Hypotension (arterial): Status: Chronic Code(s): I95.9 - Hypotension, unspecified (2) Acute kidney injury: Status: Acute Code(s): N17.9 - Acute kidney failure, unspecified (3) Nonischemic cardiomyopathy: Status: Chronic Code(s): I42.8 - Other cardiomyopathies Medications at Discharge Home Medications metformin 500 mg tablet 2 tab PO BID DIABETES #120 tabs 05/06/20 amitriptyline 50 mg tablet 50 mg PO QHS DEPRESSION 12/23/22 atorvastatin 40 mg tablet 40 mg PO QHS CHOLESTEROL 12/23/22 dulaglutide 3 mg/0.5 mL subcutaneous pen injector (Trulicity) 3 mg subcut TU DIABETES 12/23/22 gabapentin 100 mg capsule 100 mg PO TID NERVE PAIN 12/23/22 magnesium chloride 71.5 mg (magnesium chloride) tablet,delayed release (Slow- Mag) 71.5 mg PO BID SUPPLEMENT 12/29/22 ondansetron HCl 8 mg tablet 8 mg PO Q12H PRN NAUSEA 12/29/22 aspirin 81 mg tablet,delayed release (Adult Low Dose Aspirin) 81 mg PO DAILY HEART HEALTH 01/24/23 acetaminophen 500 mg tablet (Acetaminophen Extra Strength) 500 mg PO Q6H PRN PAIN 03/10/23 glimepiride 4 mg tablet 4 mg PO BID DIABETES 03/10/23 silver sulfadiazine 1 % topical cream 1 applic topical DAILY PRN BURN 03/10/23 Hospital Course Operations None Procedures EKG and - (CT brain without contrast, chest x-ray) Summary of Care Provided Minutes Spent on Discharge: 35 Hospital Course: Patient is a 77-year-old female who presented to [facility] ED on 04/10/2023 with hypotension and presyncopal symptoms. Short hospital course as noted below. Patient discharged home in stable condition on 04/12. 1. Hypotension with presyncopal symptoms, improved Unclear etiology. Likely had some degree of volume depletion given improvement after IV fluid resuscitation. Mild HFrEF may have been contributing. BP 98/56, heart rate 117 on admit with JACY as noted below. Chest x-ray nonacute. UA noninfectious. S/p 2 L IV fluids on admit with significant improvement. Encouraged p.o. hydration on discharge. 2. JACY on CKD stage III, resolved ? Creatinine 1.48 on admit, baseline creatinine 1.0-1.1. Creatinine improved to 1.06 on hospital day 2 after IV fluids. Adequate urine output. Resolved. 3. 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 Recent TTE at [facility] on 04/02/2023 showed EF 45%, mildly decreased LV systolic function, mild concentric LV hypertrophy, no significant valve abnormalities. Had been started on losartan and Jardiance recently but these were discontinued due to hypotension. Recommend close outpatient follow-up. 4. Endometrial cancer stage IIIc with recent treatment ? Follows with Dr. Hernandes. S/p hysterectomy, completed chemotherapy in January 2023 with carboplatin, paclitaxel and pembrolizumab. Completed radiation therapy in March 2023. Continue outpatient follow-up as previously scheduled. 5. Mild debility ? PT/OT/case management followed. Okay for home without any home health care needs on discharge. Chronic medical conditions: ? Type 2 diabetes mellitus with neuropathy: Home regimen of metformin 1000 g twice daily, glimepiride 4 mg twice daily, Trulicity. BG 173 on admit. Treated with sliding scale insulin while inpatient, okay to resume home regimen on discharge. Continue home gabapentin. ? Morbid obesity: BMI 41.9 on admit. Complicates hospital course, care and prognosis. ? CAD, hyperlipidemia, hypertension: Continue home aspirin, statin. Home losartan and Jardiance recently discontinued as noted above. ? Mood disorder: Continue home amitriptyline. ? Chronic normocytic anemia: Hemoglobin 10.0 on admit, decreased to 9.2 after IV fluid resuscitation. Baseline hemoglobin 9-10, stable. Total clinical time spent by myself addressing the patient's discharge needs: 35 minutes. Physical Exam Const alert, oriented x3 and no apparent distress Constitutional Narrative: Pleasant elderly female, morbidly obese, sitting up comfortably in bed, conversing normally, no acute distress. General Appearance: cooperative and comfortable HEENT normocephalic, head/scalp atraumatic, hearing grossly normal bilaterally, nasal mucous membranes and turbinates normal and moist oral mucous membranes Eyes PERRL, EOMs intact bilaterally and conjunctivae normal Neck full ROM, no lymphadenopathy and supple Lymph Lymphatic: no lymphadenopathy noted Chest inspection of chest normal Resp normal respiratory effort, normal air movement, no use of accessory muscles and clear to auscultation bilaterally Cardio regular rate, regular rhythm, no murmurs and peripheral pulses 2+ throughout GI normal to inspection, nondistended, normoactive bowel sounds, soft to palpation, non-tender and non-distended Back/Spine normal ROM Extremity normal to inspection, full ROM and no pedal edema Skin no rashes or lesions noted Neuro no focal motor deficits and no sensory deficits noted Speech: speech normal Psych mental status grossly normal Weight / BMI Weight Weight: 122.5 kg Body Mass Index (BMI) 42.3 ABG / Lab / Microbiology Data 04/11/23 06:37 04/11/23 06:37 Laboratory: Laboratory Results - last 24 hr 04/11/23 15:48: POC Glucose 122 H 04/11/23 21:16: POC Glucose 200 H 04/12/23 06:28: POC Glucose 128 H 04/12/23 11:34: POC Glucose 164 H Microbiology: Microbiology 04/10/23 17:54 Urine, Clean Catch Urine Culture - Final Klebsiella oxytoca 04/10/23 16:44 Mucosa - Nose SARS-CoV-2, Influenza & RSV (PCR) - Final D/C Instructions Discharge Diet: No restrictions Weight Bearing Status: Full weight bearing Meaningful Use Info Meaningful Use Diagnoses (Choose all that apply): None applicable Discharge Plan Admission Admit Date/Time: 04/10/23 21:54 Primary Reason for Your Visit: hypotension and presyncopal symptoms Attending Provider: Ramy Anglin Primary Care Provider: Deven Van Consulting Providers: Syed Muñiz Instructions Additional Instructions / Restrictions: Continue all home medications as normal. Follow-up with your primary care doctor as needed and with Dr. Hernandes as previously scheduled. Discharge Orders/Prescriptions Prescriptions: Continued amitriptyline 50 mg tablet 50 mg PO QHS gabapentin 100 mg capsule 100 mg PO TID Patient Comments: PT STATES ONLY TAKES ONE CAPSULE TWICE A DAY ( OF 03/10/23) Trulicity 3 mg/0.5 mL pen injector 3 mg subcut TU atorvastatin 40 mg tablet 40 mg PO QHS Slow-Mag 71.5 mg tablet,delayed release (DR/EC) 71.5 mg PO BID ondansetron HCl 8 mg tablet 8 mg PO Q12H PRN (Reason: NAUSEA ) metformin 500 MG tablet 2 tab PO BID Qty: 120 0RF Hold Instructions: Resume on 03/21/23. silver sulfadiazine 1 % cream 1 applic topical DAILY PRN (Reason: BURN) Rx Instructions: APPLY ONE APPLICATION ONCE DAILY NEEDED TO HAND glimepiride 4 mg tablet 4 mg PO BID acetaminophen [Acetaminophen Extra Strength] 500 mg tablet 500 mg PO Q6H PRN (Reason: PAIN ) aspirin [Adult Low Dose Aspirin] 81 mg tablet,delayed release (DR/EC) 81 mg PO DAILY Discontinued cefdinir 300 mg capsule 300 mg PO BID Qty: 14 0RF Referrals / Follow Up: Deven Van MD [Primary Care Provider] - 04/23/23 10:20 am Disposition Disposition (needs filled in before D/C Order can be placed): Home, Self Care Charges/Coding Visit Charges Inpatient E&M: 23800 Disch Hosp >30min
--- NOTE | 2023-04-12 12:50 | CASEMGMT ---
Patient has order for discharge. RN CM in to discuss needs at discharge. Patient denied needs or help at discharge. Patient had no further questions or concerns at this time.
[2023-04-12 13:25] VITALS: BP 152/72; PULSE 92; RESP 17; TEMP 36.6; O2SAT 93
[2023-04-12] MEDS: 0.9 % NaCl (Sterile) Posiflush 10 mL IV (13:44)
--- NOTE | 2023-04-12 14:15 | PHA.DC_ITS ---
Pharmacy [place] Med Reconciliation Pharmacy Service has performed discharge medication reconciliation for this patient. The patient's discharge medication list was reviewed for discrepancies and discrepancies were resolved. Medications at Discharge Home Medications metformin 500 mg tablet 2 tab PO BID DIABETES #120 tabs 05/06/20 amitriptyline 50 mg tablet 50 mg PO QHS DEPRESSION 12/23/22 atorvastatin 40 mg tablet 40 mg PO QHS CHOLESTEROL 12/23/22 dulaglutide 3 mg/0.5 mL subcutaneous pen injector (Trulicity) 3 mg subcut TU DIABETES 12/23/22 gabapentin 100 mg capsule 100 mg PO TID NERVE PAIN 12/23/22 magnesium chloride 71.5 mg (magnesium chloride) tablet,delayed release (Slow- Mag) 71.5 mg PO BID SUPPLEMENT 12/29/22 ondansetron HCl 8 mg tablet 8 mg PO Q12H PRN NAUSEA 12/29/22 aspirin 81 mg tablet,delayed release (Adult Low Dose Aspirin) 81 mg PO DAILY HEART HEALTH 01/24/23 acetaminophen 500 mg tablet (Acetaminophen Extra Strength) 500 mg PO Q6H PRN PAIN 03/10/23 glimepiride 4 mg tablet 4 mg PO BID DIABETES 03/10/23 silver sulfadiazine 1 % topical cream 1 applic topical DAILY PRN BURN 03/10/23
== END 2023-04-12 14:03 | disposition home or self-care (01) ==
LOC: ED 16:01 → PCU 22:28
PROVIDERS: Admitting Provider Internal Medicine; Emergency Provider Student in an Organized Health Care Education/Training Program; PCP Family Medicine; Visit Provider Hospitalist
DX: I95.9 Hypotension, unspecified (principal); N17.9 Acute kidney failure, unspecified; I42.8 Other cardiomyopathies; I50.22 Chronic systolic (congestive) heart failure; I13.0 Hypertensive heart and chronic kidney disease with heart failure and stage 1 through stage 4 chronic kidney disease, or unspecified chronic kidney disease; F39 Unspecified mood [affective] disorder; E11.22 Type 2 diabetes mellitus with diabetic chronic kidney disease; E11.40 Type 2 diabetes mellitus with diabetic neuropathy, unspecified; Z68.41 Body mass index [BMI] 40.0-44.9, adult; E66.01 Morbid (severe) obesity due to excess calories; C54.1 Malignant neoplasm of endometrium; N18.30 Chronic kidney disease, stage 3 unspecified; E86.0 Dehydration; Z79.84 Long term (current) use of oral hypoglycemic drugs; E78.00 Pure hypercholesterolemia, unspecified; R53.81 Other malaise; Z92.3 Personal history of irradiation; R09.02 Hypoxemia; Z87.891 Personal history of nicotine dependence; Z90.710 Acquired absence of both cervix and uterus; Z92.21 Personal history of antineoplastic chemotherapy; Z79.899 Other long term (current) drug therapy
CPT/HCPCS: 36415; 36591; 70450; 71045; 80048; 80053; 81001; 82962; 83605; 83735; 84100; 84443; 84484; 85025; 85610; 85730; 87040; 87077; 87086; 87088; 87186; 87631; 93005; 94668; 96360; 96361; 96372; 97110; 97162; 97165; 97530; 99221; 99284; J7030; A4216; G0378

== ENCOUNTER → 2023-10-04 | Outpatient (CLI) | payer MEDICARE, SELFPAY | END | disposition home or self-care (01) | LOC: SL 19:41 | PROVIDERS: PCP Family Medicine | DX: E66.2 Morbid (severe) obesity with alveolar hypoventilation (principal) | CPT/HCPCS: 95811 ==

== ENCOUNTER 2023-10-14 10:18 | Emergency (ER) | payer MEDICARE, SELFPAY ==
[2023-10-14 10:20] VITALS: BP 120/66; PULSE 85; RESP 16; TEMP 36.1; O2SAT 98; BMI 43.2
--- NOTE | 2023-10-14 10:26 | EKG12_ITS ---
Test Reason : LOW BS Blood Pressure : / mmHG Vent. Rate : 078 BPM Atrial Rate : 078 BPM P-R Int : 156 ms QRS Dur : 098 ms QT Int : 384 ms P-R-T Axes : 010 -19 052 degrees QTc Int : 437 ms Sinus rhythm with PAC's Low voltage QRS Borderline ECG Confirmed by Venancio Hayden ([id number]), school photograph editor HOOD BRUNNER ([id number]) on 10/18/2023 9:25:11 AM Referred By: Confirmed By:Venancio Hayden
--- NOTE | 2023-10-14 10:28 | EX.ED.DYSGE1 ---
HPI History of Present Illness Chief Complaint: Hypoglycemia Informant: patient and family (Sister) Onset/Context/Timing Onset: Today Context: - (Unsure because awoke with confusion this morning.) Timing: Continuous Current Severity: Mild Maximum Severity: Moderate Narrative Narrative: 77-year-old female history of [id number] diabetes and prior ovarian cancer. Recent admission at another facility for hypoxia. She is on home oxygen. Patient lives with her sister. This morning her sister went to give her breakfast and the patient seemed confused with slurred speech and possibly a facial droop. Local squad was called. And route they obtained a blood sugar in the 50s. Patient was given D10 IV and symptoms completely resolved. She is feeling better. Denies any recent illness other than some mild diarrhea. No fever. No dysuria. No headaches. Prior similar symptoms: No Recent Illness/Hospitalization: Yes [facility] Medical History Former smoker Endometrial cancer, FIGO stage IIIC Pancytopenia Hypomagnesemia History of cancer of uterus Obesity Dyslipidemia Coronary artery disease Nonischemic cardiomyopathy CKD (chronic kidney disease) stage 3, GFR 30-59 ml/min Endometrial cancer GERD (gastroesophageal reflux disease) Benign neoplasm of colon Cholecystitis Hypercholesteremia Neuropathy Diabetes Hypertension Chest pain Home Medications ?Medication ?Instructions ?Recorded ?Last Taken ?Type metformin 500 mg tablet 2 tab PO BID DIABETES #120 tabs 05/06/20 03/10/23 Rx amitriptyline 50 mg tablet 50 mg PO QHS DEPRESSION 12/23/22 03/09/23 History atorvastatin 40 mg tablet 40 mg PO QHS CHOLESTEROL 12/23/22 03/09/23 History dulaglutide 3 mg/0.5 mL 3 mg subcut TU DIABETES 12/23/22 03/09/23 History subcutaneous pen injector (Trulicity) gabapentin 100 mg capsule 100 mg PO TID NERVE PAIN 12/23/22 03/10/23 History magnesium chloride 71.5 mg 71.5 mg PO BID SUPPLEMENT 12/29/22 03/10/23 History (magnesium chloride) tablet,delayed release (Slow-Mag) ondansetron HCl 8 mg tablet 8 mg PO Q12H PRN NAUSEA 12/29/22 Unknown History aspirin 81 mg tablet,delayed 81 mg PO DAILY HEART HEALTH 01/24/23 03/10/23 History release (Adult Low Dose Aspirin) acetaminophen 500 mg tablet 500 mg PO Q6H PRN PAIN 03/10/23 Unknown History (Acetaminophen Extra Strength) glimepiride 4 mg tablet 4 mg PO BID DIABETES 03/10/23 03/10/23 History silver sulfadiazine 1 % topical 1 applic topical DAILY PRN BURN 03/10/23 03/10/23 History cream Allergy/AdvReac Type Severity Reaction Status Date / Time No Known Allergies Allergy Verified 10/14/23 10:23 Family History Father Myocardial infarction Mother Heart disease irregular heart rate Colon cancer Surgical History History of cholecystectomy Hx of hysterectomy, total Hx laparoscopic cholecystectomy Hx of cataract surgery History of total left knee replacement (TKR) (~01/2011) History of total right knee replacement (TKR) (~05/11/11) Social History household members: none Smoking Status: Former smoker how long ago did patient quit smokin alcohol intake: never substance use type: does not use ROS ROS ED ROS Narrative Denies recent illness. Constitutional Constitutional ED: Denies chills or fever(s) Eyes Eyes: Denies blurry vision ENT ENT ED: Denies ear pain Cardiovascular Cardiovascular: Denies chest pain Respiratory/Chest Respiratory/Chest: Denies cough or dyspnea Gastrointestinal Gastrointestinal: Denies abdominal pain Genitourinary Genitourinary ED: Denies dysuria or hematuria Musculoskeletal Musculoskeletal: Denies arthralgias or back pain Integumentary Denies abscess or Abrasions Neurologic Neurologic: Denies headache(s) Psychiatric Psychiatric: Denies anxiety or depression Endocrine Endocrinology: Denies cold intolerance Hematologic/Lymphatic Hematologic/Lymphatic: Reports none Allergic/Immunologic Allergic/Immunologic ED: Denies mouth swelling, tongue swelling or urticaria EXAM Physical Exam Narrative Exam Narrative: 77-year-old female no acute distress. Vital signs are stable and afebrile. Her pulse ox is 90% on 3 L she is now on oxygen chronically. H EENT exam pupils round react to light. Moist mucous membranes. No facial droop. Normal speech. Neck nontender. No lymphadenopathy. Lungs clear to auscultation bilaterally. Heart regular rhythm rate about 85 no murmur. Chest wall and ribs nontender. Abdomen soft nontender. Moving all 4 extremities. 5 out of 5 heavy duty custodian strength. Dorsi and plantarflexion intact. Neurologically she is awake and alert. Answering questions following commands. Currently her NIH is 0. Sister is present in the room and helping with the history. Const Vital Signs: 10/14/23 10:20 10/14/23 10:25 10/14/23 12:19 Temperature 96.9 F L Temperature Source Temporal Pulse Rate 85 83 Respiratory Rate 16 16 Respiratory Effort Short of Breath Respiratory Pattern Normal Blood Pressure 120/66 129/68 H Blood Pressure Mean 84 88 Pulse Ox 98 97 Oxygen Delivery Method Nasal Cannula Nasal Cannula Oxygen Flow Rate (L/min) 3 3 Positive well nourished and well developed; Negative for cachectic, contractures or unkempt General Appearance ED: well developed and NAD; Negative for unkempt, cachectic, contractures, cyanotic, diaphoretic or pallor Nutritional Appearance: Negative for cachectic HEENT Reports moist mucous membranes; Denies dry mucous membranes Negative for trauma or tenderness Mouth ED: No dry mucous membranes Mouth: No dry mucous membranes Eyes PERRL and EOMs intact bilaterally General Eye ED: Negative for pale conjunctiva or scleral icterus Neck no lymphadenopathy, supple and no JVD General: Negative for tenderness Lymph Lymphatic: Negative for other Chest Wall inspection of chest normal and palpation of chest normal Chest: Negative for other Resp normal respiratory effort and clear to auscultation bilaterally Effort and Inspection: Negative for retractions or pain with movement Auscultation: Negative for rales, rhonchi or wheezes Cardio regular rate, regular rhythm, S1 normal heart sound, S2 normal heart sound and no murmurs GI normal to inspection, nondistended, normoactive bowel sounds, non-tender, non-distended and no masses Inspection: Negative for abdominal distention Auscultation: normoactive bowel sounds Palpation: soft; Negative for tender or guarding Back/Spine no CVA tenderness General Back: Negative for CVA tenderness Cervical Spine: Negative for cervical spine tenderness Thoracic Spine / Upper Back: Negative for thoracic spinal tenderness Extremity normal to inspection General Extremety ED: Negative for edema or tenderness General Extremity: Negative for edema Neuro oriented x3 and CN's II-XII intact bilaterally Sensorium / Orientation: alert; Negative for orientation impaired, lethargic or stuporous Motor Exam: strength 5/5 throughout; Negative for general weakness Psych mental status grossly normal Appearance: Negative for unkempt Attitude: No agitated Mood & Affect: Negative for depressed, anxious or tearful Skin no rashes or lesions noted and no wounds General Skin Exam: Negative for jaundice or pallor Lesions: No lesion noted Rashes: No rashes noted Trauma: Negative for abrasion Wounds: Negative for wounds noted MDM MDM MDM Narrative Medical decision making narrative: 77-year-old female known [id number] diabetic. Had low blood sugar this morning with slurred speech and confusion. Initial blood sugar was in the 50s. Squad gave her D10 IV symptoms resolved blood sugar was 99. When we went to turn the D10 off her blood sugar is back in the 50s so we will continue that. She initially presented as a possible stroke team with her history, exam and EKG presentation IV this is hypoglycemia and not a stroke. The stroke team was called off. Repeat exam at 12:22 PM patient doing well. Awake alert. Neurologic exam normal. NIH 0. Sister is at bedside states that she is her baseline. Will recheck blood sugar. Ambulate the patient if she is doing well she be discharged home. Patient and her sister and I had a long discussion about hypoglycemia and watching her blood sugars. History & Record Review Discussion w/independent historian: Patient and Family Additional record(s) reviewed:: Prior inpatient record, Prior outpatient record, Prior ED visit and Prior labs Lab Data Attestation: I reviewed the patient's lab results. Lab results narrative: CBC shows a white count of 4.6. H&H 11.0 and 34. Platelets 153. Labs are consistent with prior. Electrolytes show gap 6. BUN and creatinine 29 and 1.25. Liver enzymes are normal. UA patient is positive nitrites and 4+ bacteria Labs: Laboratory Results - last 24 hr 10/14/23 10/14/23 10/14/23 10:15 10:25 10:45 WBC 4.6 RBC 3.78 L Hgb 11.0 L Hct 34.1 L MCV 90.2 MCH 29.1 MCHC 32.3 RDW Std Deviation 48.1 H RDW Coeff of [place] 14.5 Plt Count 153 MPV 9.9 Immature Gran % (Auto) 0.400 Neut % (Auto) 57.9 Lymph % (Auto) 19.7 Collin % (Auto) 16.8 H Eos % (Auto) 5.0 Baso % (Auto) 0.2 Absolute Neuts (auto) 2.6 Absolute Lymphs (auto) 0.90 Nucleated RBC % 0 Sodium 137 Potassium 4.2 Chloride 100 Carbon Dioxide 31.0 Anion Gap 6 BUN 29 H Creatinine 1.25 H Estim Creat Clear Calc 53.49 Est GFR (MDRD) Af Amer 53 L Est GFR (MDRD) Non-Af 44 L BUN/Creatinine Ratio 23.2 H Glucose 133 H Calcium 8.8 Total Bilirubin 0.30 AST 27 ALT 28 Alkaline Phosphatase 65 Total Protein 6.6 Albumin 3.2 Globulin 3.4 Albumin/Globulin Ratio 0.9 Urine Color Yellow Urine Clarity Clear Urine pH 6.0 Ur Specific [place] 1.010 Urine Protein 15 H Urine Glucose (UA) Normal Urine Ketones Negative Urine Occult Blood Negative Urine Nitrite Positive H Urine Bilirubin Negative Urine Urobilinogen Normal Ur Leukocyte Esterase 100 H Urine RBC 0 SEEN Urine WBC 0-5 SEEN Ur Squamous Epith Cells 0 SEEN Urine Bacteria 4+ Urine Mucus 0 SEEN POC Glucose 54 L 10/14/23 10/14/23 10:51 11:26 WBC RBC Hgb Hct MCV MCH MCHC RDW Std Deviation RDW Coeff of [place] Plt Count MPV Immature Gran % (Auto) Neut % (Auto) Lymph % (Auto) Collin % (Auto) Eos % (Auto) Baso % (Auto) Absolute Neuts (auto) Absolute Lymphs (auto) Nucleated RBC % Sodium Potassium Chloride Carbon Dioxide Anion Gap BUN Creatinine Estim Creat Clear Calc Est GFR (MDRD) Af Amer Est GFR (MDRD) Non-Af BUN/Creatinine Ratio Glucose Calcium Total Bilirubin AST ALT Alkaline Phosphatase Total Protein Albumin Globulin Albumin/Globulin Ratio Urine Color Urine Clarity Urine pH Ur Specific [place] Urine Protein Urine Glucose (UA) Urine Ketones Urine Occult Blood Urine Nitrite Urine Bilirubin Urine Urobilinogen Ur Leukocyte Esterase Urine RBC Urine WBC Ur Squamous Epith Cells Urine Bacteria Urine Mucus POC Glucose 94 115 H Radiography Chest X-Ray - ED: 1 View and Read by ED Physician Diagnostic Testing: Clinical Impression(s) from Imaging Studies Chest X-Ray 10/14/23 10:37 IMPRESSION: Degenerative changes, as described above. No demonstrated acute cardiopulmonary process. Electronically Signed: Toni Mccann MD at 11:00 EDT , Rhythm Strip Rhythm Strip: Sinus Rhythm Rate: 78 Ectopy: None EKG Initial EKG: Attestation: I personally reviewed and interpreted this EKG as follows: Interpretation: Sinus Rhythm and No Acute Injury Pattern Comments: Normal sinus rhythm rate of 70. No acute signs of NV nor ischemia no dysrhythmia. Discharge Plan Triage Chief Complaint: Hypoglycemia ED Provider: Souleymane Valles Dx/Rx/DC Orders Clinical Impression: Acute metabolic encephalopathy due to hypoglycemia, Diabetes Instructions: ED Hypoglycemia Oral Diabetic Med Prescriptions: No Action amitriptyline 50 mg tablet 50 mg PO QHS gabapentin 100 mg capsule 100 mg PO TID Patient Comments: PT STATES ONLY TAKES ONE CAPSULE TWICE A DAY ( OF 03/10/23) Trulicity 3 mg/0.5 mL pen injector 3 mg subcut TU atorvastatin 40 mg tablet 40 mg PO QHS Slow-Mag 71.5 mg tablet,delayed release (DR/EC) 71.5 mg PO BID ondansetron HCl 8 mg tablet 8 mg PO Q12H PRN (Reason: NAUSEA ) metformin 500 MG tablet 2 tab PO BID Qty: 120 0RF silver sulfadiazine 1 % cream 1 applic topical DAILY PRN (Reason: BURN) Rx Instructions: APPLY ONE APPLICATION ONCE DAILY NEEDED TO HAND glimepiride 4 mg tablet 4 mg PO BID acetaminophen [Acetaminophen Extra Strength] 500 mg tablet 500 mg PO Q6H PRN (Reason: PAIN ) aspirin [Adult Low Dose Aspirin] 81 mg tablet,delayed release (DR/EC) 81 mg PO DAILY Primary Care Provider: Deven Van Referrals: Deven Van MD [Primary Care Provider] - As Needed Activity Restrictions/Additional Instructions: Follow-up with your doctor as needed. Check your blood sugars before bedtime if it is running low make sure you have a snack get the blood sugar up before you go to sleep. If it keeps running low make sure you follow-up with your primary care physician. Print Language: Yoruba Disposition Disposition: Home, Self Care
--- NOTE | 2023-10-14 10:30 | ED.RN ---
PER PT, WHEN EMS ARRIVED SHE COULD NOT FORMULATE ANSWERS TO THEIR QUESTIONS. PER PT, SHE NO LONGER FEELS THAT WAY, SHE FEELS BACK TO HER BASELINE.
--- NOTE | 2023-10-14 10:37 | RAD_ITS ---
STUDY: X-RAY CHEST REASON FOR EXAM: Female, 77 years old. confusions and low blood sugar TECHNIQUE: Single AP portable view of the chest. COMPARISON: April 10, 2023 FINDINGS: Stable left chest port and catheter. No visualized consolidation. There are interstitial fibrotic changes of the lungs. There is no demonstrated pleural abnormality. Normal size heart. Normal mediastinum and sharon. Normal visualized pulmonary arteries. There is atherosclerotic calcification of the aortic arch with tortuosity. There are diffuse degenerative changes of the visualized thoracic spine. Normal visualized ribs, clavicles, and shoulders. There is no demonstrated abnormality of the visualized soft tissue structures of the upper abdomen. RAD/Chest 1 View (Portable) IMPRESSION: Degenerative changes, as described above. No demonstrated acute cardiopulmonary process. Electronically Signed: Toni Mccann MD at 11:00 EDT ,
[2023-10-14 10:42] LABS: Absolute Neutrophil Count 2.6 X10^3/uL (2.0-7.7); Basophil# 0.01 X10^3/uL; Basophil% 0.2 % (0-1); Eosinophil# 0.23 X10^3/uL; Hematocrit 34.1 % (37-47); Lymphocyte % 19.7 % (19-41); Mean Corp Hgb Conc 32.3 g/dL (32-36); Mean Corpuscular Hgb 29.1 pg (27.0-32.0); Mean Corpuscular Volume 90.2 fL (81-99); Mean Platelet Vol. 9.9 fl (6.2-12.0); Monocyte# 0.77 X10^3/uL; Monocyte% 16.8 % (0-10); NRBC Flagged by Analyzer 0 % (0-5); Neutrophil # 2.64 X10^3/uL (2.7-7.7); Neutrophil % 57.9 % (47-70); Platelet Count 153 K/mm3 (150-450); RBC Distribution Width CV 14.5 % (11.6-14.6); RBC Distribution Width SD 48.1 fl (35.1-43.9); Red Blood Count 3.78 M/mm3 (4.2-5.4); White Blood Count 4.6 K/mm3 (4.4-11.0)
[2023-10-14 10:49] LABS: Bedside Glucose 54 mg/dL (74-106)
[2023-10-14 10:53] LABS: Mucous, Urine 0 SEEN /hpf (<or=2+); Red Blood Cells-Urine 0 SEEN /hpf (0-5); Squamous Epithelial Cells - UA 0 SEEN /hpf (5-10)
[2023-10-14 10:55] LABS: ALB/GLOB Ratio 0.9 RATIO (0.9-2.4); AST(SGOT) 27 U/L (15-37); Alanine Aminotransfer ALT/SGPT 28 U/L (13-56); Albumin, Serum 3.2 g/dL (3.2-5.0); Alkaline Phosphatase 65 U/L (45-117); Anion Gap 6 (5-15); BUN 29 mg/dL (7-18); BUN/Creat Ratio 23.2 RATIO (10-20); Calcium,Total 8.8 mg/dL (8.5-10.1); Chloride 100 mmol/L (98-107); Creatinine, Serum 1.25 mg/dL (0.55-1.02); EST Glomerular Filtration Rate 44 mL/min (>60); Est Glom Filt Rate - Afr Amer 53 mL/min (>60); Estimated Creatinine Clearance 53.49 ml/min; Globulin 3.4 g/dL (2.2-4.2); Glucose 133 mg/dL (74-106); Potassium 4.2 mmol/L (3.5-5.1); Protein, Total 6.6 g/dL (6.4-8.2); Sodium Level 137 mmol/L (136-145)
[2023-10-14 11:04] LABS: Color, Urine Yellow (Yellow); Glucose, Dipstick Normal (Normal); Ketone-Dipstick Negative (Negative); Leukocyte Esterase-Dipstick 100 /ul (Negative); Nitrite-Dipstick Positive (Negative); Occult Blood-Urine Negative /ul (Negative); Protein-Dipstick 15 mg/dl (Negative); Urine Bilirubin Dipstick Negative (Negative); Urine Clarity Clear (Clear); Urine Urobilinogen Normal (Normal)
[2023-10-14 11:14] LABS: Bedside Glucose 94 mg/dL (74-106)
[2023-10-14 11:23] LABS: Bacteria 4+ /hpf (None Seen); White Blood Cells 0-5 SEEN /hpf (0-5)
[2023-10-14 11:44] LABS: Bedside Glucose 115 mg/dL (74-106)
[2023-10-14 12:19] VITALS: BP 129/68; PULSE 83; RESP 16; O2SAT 97
[2023-10-14 12:39] VITALS: BP 135/67; PULSE 89; RESP 18; TEMP 36.6; O2SAT 98
[2023-10-14 12:49] LABS: Bedside Glucose 169 mg/dL (74-106)
== END 2023-10-14 12:46 | disposition home or self-care (01) ==
PROVIDERS: Emergency Provider Emergency Medicine; PCP Family Medicine; Visit Provider Emergency Medicine
DX: G93.41 Metabolic encephalopathy (principal); E11.649 Type 2 diabetes mellitus with hypoglycemia without coma; E11.22 Type 2 diabetes mellitus with diabetic chronic kidney disease; E11.40 Type 2 diabetes mellitus with diabetic neuropathy, unspecified; N18.30 Chronic kidney disease, stage 3 unspecified; I12.9 Hypertensive chronic kidney disease with stage 1 through stage 4 chronic kidney disease, or unspecified chronic kidney disease; I25.10 Atherosclerotic heart disease of native coronary artery without angina pectoris; Z87.891 Personal history of nicotine dependence
CPT/HCPCS: 71045; 80053; 81001; 82962; 85025; 93005; 99285

== ENCOUNTER 2023-11-26 12:19 | Emergency (ER) | payer MEDICARE, SELFPAY ==
[2023-11-26 12:22] VITALS: BP 86/56; PULSE 85; RESP 18; TEMP 36.8; O2SAT 97; BMI 43.9
[2023-11-26 12:42] VITALS: O2SAT 96
[2023-11-26 13:23] VITALS: BP 133/67; PULSE 88; RESP 20; O2SAT 100
--- NOTE | 2023-11-26 13:32 | EKG12_ITS ---
Test Reason : FALL Blood Pressure : / mmHG Vent. Rate : 087 BPM Atrial Rate : 087 BPM P-R Int : 184 ms QRS Dur : 092 ms QT Int : 382 ms P-R-T Axes : 055 -13 028 degrees QTc Int : 459 ms Normal sinus rhythm Nonspecific T wave abnormality Abnormal ECG Confirmed by NATI RICE, SELIN ([id number]), production editor LEATHA PALMER ([id number]) on 11/30/2023 2:14:32 PM Referred By: Confirmed By:SELIN DAMIAN MD
--- NOTE | 2023-11-26 13:32 | CT_ITS ---
STUDY: CT BRAIN WITHOUT CONTRAST REASON FOR EXAM: Female, 78 years old. Syncope, head injury RADIATION DOSAGE (If Supplied By Facility): CTDIvol = ( 44.99 ) mGy, DLP = ( 863.60 ) mGycm TECHNIQUE: Transaxial CT imaging of the brain was performed without administration of intravenous contrast material. Individualized dose optimization techniques were used for this CT. COMPARISON: Comparison is made with prior study dated April 10, 2023. FINDINGS: Normal soft tissue structures. Stable 3 cm calcified bony density along the posterior aspect of the left parietal bone. This may represent an exostosis. There is mild cerebral atrophy with widening of the extra-axial spaces and ventricular dilatation. There are areas of decreased attenuation within the white matter tracts of the supratentorial brain, consistent with microvascular disease changes. Normal basal ganglia and thalami. Normal brainstem. Normal cerebellum. There is no intracranial hemorrhage. There are no findings of an acute ischemic infarction. Normal visualized paranasal sinuses. CT/Brain/Head without Contrast IMPRESSION: Chronic involutional changes of the brain. Electronically Signed: David Peters MD at 15:21 EDT ,
[2023-11-26 14:08] LABS: Anion Gap 8 (5-15); BUN 32 mg/dL (7-18); BUN/Creat Ratio 19.5 RATIO (10-20); Chloride 100 mmol/L (98-107); Creatinine, Serum 1.64 mg/dL (0.55-1.02); EST Glomerular Filtration Rate 32 mL/min (>60); Est Glom Filt Rate - Afr Amer 39 mL/min (>60); Estimated Creatinine Clearance 40.48 ml/min; Glucose 257 mg/dL (74-106); Potassium 4.7 mmol/L (3.5-5.1); Sodium Level 136 mmol/L (136-145); Troponin-I HS 8 pg/mL (3.0-54.0)
[2023-11-26 14:36] LABS: Absolute Lymphocyte Count 0.58 X10^3/uL (0.83-4.51); Basophil# 0.05 X10^3/uL; Basophil% 0.5 % (0-1); Eosinophil# 0.18 X10^3/uL; Eosinophils% 1.7 % (0-5); Hematocrit 29.5 % (37-47); Hemoglobin 9.6 g/dL (12.0-15.0); Lymphocyte # 0.58 X10^3/ul (0.83-4.51); Lymphocyte % 5.5 % (19-41); Mean Corp Hgb Conc 32.5 g/dL (32-36); Mean Corpuscular Hgb 30.9 pg (27.0-32.0); Mean Corpuscular Volume 94.9 fL (81-99); Mean Platelet Vol. 10.2 fl (6.2-12.0); Monocyte# 0.71 X10^3/uL; Monocyte% 6.7 % (0-10); NRBC Flagged by Analyzer 0 % (0-5); Neutrophil % 85.2 % (47-70); POSITIVE DIFFERENTIAL YES; Platelet Count 166 K/mm3 (150-450); RBC Distribution Width CV 15.5 % (11.6-14.6); RBC Distribution Width SD 53.6 fl (35.1-43.9); Red Blood Count 3.11 M/mm3 (4.2-5.4); White Blood Count 10.6 K/mm3 (4.4-11.0)
--- NOTE | 2023-11-26 14:56 | EDS_ITS ---
HPI History of Present Illness Chief Complaint: Syncope Informant: patient, family and EMS Narrative Narrative: Patient presents after syncopal episode. She states she stood up and quickly went to her toilet in the bathroom, she remembers feeling a little lightheaded, but then she woke up on the floor and had passed out. Family came before she fully woke up and confirmed that she was unconscious on the floor. She does not think she hit her head but has a little bit of a headache. No nausea or vomiting. She denies feeling any chest discomfort or dyspnea or sweating or nausea prior to passing out that she knows of. She does remember that she was on the toilet and had a bowel movement before this happened. It was nonbloody diarrhea. She also has history of endometrial cancer and her last chemotherapy treatment was 2 days ago. She felt relatively good yesterday and today before this occurred. She is a diabetic, EMS checked her blood sugar and it was 260. [facility] Medical History Former smoker Endometrial cancer, FIGO stage IIIC Pancytopenia Hypomagnesemia History of cancer of uterus Obesity Dyslipidemia Coronary artery disease Nonischemic cardiomyopathy CKD (chronic kidney disease) stage 3, GFR 30-59 ml/min Endometrial cancer GERD (gastroesophageal reflux disease) Benign neoplasm of colon Cholecystitis Hypercholesteremia Neuropathy Diabetes Hypertension Chest pain Home Medications ?Medication ?Instructions ?Recorded ?Last Taken ?Type metformin 500 mg tablet 2 tab PO BID DIABETES #120 tabs 05/06/20 03/10/23 Rx amitriptyline 50 mg tablet 50 mg PO QHS DEPRESSION 12/23/22 03/09/23 History atorvastatin 40 mg tablet 40 mg PO QHS CHOLESTEROL 12/23/22 03/09/23 History dulaglutide 3 mg/0.5 mL 3 mg subcut TU DIABETES 12/23/22 03/09/23 History subcutaneous pen injector (Trulicity) gabapentin 100 mg capsule 100 mg PO TID NERVE PAIN 12/23/22 03/10/23 History magnesium chloride 71.5 mg 71.5 mg PO BID SUPPLEMENT 12/29/22 03/10/23 History (magnesium chloride) tablet,delayed release (Slow-Mag) ondansetron HCl 8 mg tablet 8 mg PO Q12H PRN NAUSEA 12/29/22 Unknown History aspirin 81 mg tablet,delayed 81 mg PO DAILY HEART HEALTH 01/24/23 03/10/23 History release (Adult Low Dose Aspirin) acetaminophen 500 mg tablet 500 mg PO Q6H PRN PAIN 03/10/23 Unknown History (Acetaminophen Extra Strength) glimepiride 4 mg tablet 4 mg PO BID DIABETES 03/10/23 03/10/23 History silver sulfadiazine 1 % topical 1 applic topical DAILY PRN BURN 03/10/23 03/10/23 History cream Allergy/AdvReac Type Severity Reaction Status Date / Time No Known Allergies Allergy Verified 11/26/23 12:26 Family History Father Myocardial infarction Mother Heart disease irregular heart rate Colon cancer Surgical History History of cholecystectomy Hx of hysterectomy, total Hx laparoscopic cholecystectomy Hx of cataract surgery History of total left knee replacement (TKR) (~01/2011) History of total right knee replacement (TKR) (~05/11/11) Social History household members: none Smoking Status: Former smoker how long ago did patient quit smokin alcohol intake: never substance use type: does not use ROS ROS ED Constitutional Constitutional ED: Denies chills or fever(s) Eyes Eyes: Denies change in vision or diplopia ENT ENT ED: Denies rhinorrhea or sore throat Cardiovascular Cardiovascular: Reports lightheadedness and syncope; Denies chest pain or palpitations Respiratory/Chest Respiratory/Chest: Denies cough or dyspnea Gastrointestinal Gastrointestinal: Reports diarrhea; Denies abdominal pain, nausea or vomiting Genitourinary Genitourinary ED: Denies dysuria or hematuria Musculoskeletal Musculoskeletal: Denies back pain or neck pain Integumentary Denies abscess or rash Neurologic Neurologic: Denies headache(s), paresthesias or weakness Psychiatric Psychiatric: Denies anxiety or suicidal thoughts EXAM Physical Exam Const Vital Signs: 11/26/23 12:22 11/26/23 12:26 11/26/23 12:42 Temperature 98.3 F Temperature Source Oral Pulse Rate 85 Respiratory Rate 18 Respiratory Effort Normal Non-Labored Respiratory Pattern Normal Blood Pressure 86/56 L Blood Pressure Mean 66 Pulse Ox 97 96 Oxygen Delivery Method Nasal Cannula Nasal Cannula Oxygen Flow Rate (L/min) 2.5 2.5 11/26/23 13:23 11/26/23 15:03 Temperature Temperature Source Pulse Rate 88 87 Respiratory Rate 20 H 18 Respiratory Effort Respiratory Pattern Blood Pressure 133/67 H 136/75 H Blood Pressure Mean 89 95 Pulse Ox 100 99 Oxygen Delivery Method Nasal Cannula Nasal Cannula Oxygen Flow Rate (L/min) 2.5 2.5 Positive well nourished, well developed and obese General Appearance ED: well developed and NAD Nutritional Appearance: obese HEENT Reports moist mucous membranes normocephalic and atraumatic Eyes PERRL and EOMs intact bilaterally Neck full ROM and supple Resp normal respiratory effort and clear to auscultation bilaterally Cardio regular rate, regular rhythm and no murmurs GI non-tender and non-distended Auscultation: normoactive bowel sounds Palpation: soft Back/Spine no CVA tenderness General Back: other FROM Extremity normal to inspection General Extremety ED: Negative for edema, pulses abnormal or tenderness General Extremity: Negative for edema or pulses abnormal Neuro oriented x3, CN's II-XII intact bilaterally and no sensory deficits noted Sensorium / Orientation: awake and alert Motor Exam: strength 5/5 throughout Psych mental status grossly normal Skin no rashes or lesions noted and no wounds MDM MDM MDM Narrative Medical decision making narrative: EKG shows sinus rhythm and is otherwise unremarkable. Given her medical history and recent chemotherapy obtain labs, they are noted showing chronic stable anemia and chronic renal failure a little worse than it was before. She states she is a poor water drinker. When she first arrived her blood pressure was low but this self-resolved as she was given IV fluids. She has COPD she is on 2.5 L of oxygen at home and she has no dyspnea or hypoxemia on that level. I think this was a vasovagal episode given the mechanism, probably made easier by some mild dehydration and JACY. After fluids we ambulated her and she feels better no signs of presyncope or syncope on standing and walking. She is comfortable going home. I recommend drinking fluids, and following up. We did also do a CT given her fall/injury, I reviewed the images and the result which I agree with, it is negative for any acute intracranial injury or bleed. Lab Data Attestation: I reviewed the patient's lab results. Labs: Laboratory Results - last 24 hr 11/26/23 12:40 WBC 10.6 RBC 3.11 L Hgb 9.6 L Hct 29.5 L MCV 94.9 MCH 30.9 MCHC 32.5 RDW Std Deviation 53.6 H RDW Coeff of Casper 15.5 H Plt Count 166 MPV 10.2 Immature Gran % (Auto) 0.400 Neut % (Auto) 85.2 H Lymph % (Auto) 5.5 L [place] % (Auto) 6.7 Eos % (Auto) 1.7 Baso % (Auto) 0.5 Absolute Neuts (auto) 9.0 H Absolute Lymphs (auto) 0.58 L Nucleated RBC % 0 Sodium 136 Potassium 4.7 Chloride 100 Carbon Dioxide 28.0 Anion Gap 8 BUN 32 H Creatinine 1.64 H Estim Creat Clear Calc 40.48 Est GFR (MDRD) Af Amer 39 L Est GFR (MDRD) Non-Af 32 L BUN/Creatinine Ratio 19.5 Glucose 257 H Calcium 9.0 Troponin I High Sens 8 Radiography Diagnostic Testing: Clinical Impression(s) from Imaging Studies Brain CT 11/26/23 13:32 IMPRESSION: Chronic involutional changes of the brain. Electronically Signed: David Peters MD at 15:21 EDT , Rhythm Strip Rhythm Strip: Sinus Rhythm Rate: 85 Ectopy: None EKG Initial EKG: Attestation: I personally reviewed and interpreted this EKG as follows: Interpretation: Sinus Rhythm and No Acute Injury Pattern Discharge Plan Triage Chief Complaint: Syncope ED Provider: Shay Nguyen Dx/Rx/DC Orders Clinical Impression: Syncope, vasovagal, CKD (chronic kidney disease) stage 3, GFR 30-59 ml/min, Mild dehydration, Closed head injury without concussion Instructions: Diagnosing Syncope, ED Fainting, Vagal Reaction Prescriptions: No Action amitriptyline 50 mg tablet 50 mg PO QHS gabapentin 100 mg capsule 100 mg PO TID Patient Comments: PT STATES ONLY TAKES ONE CAPSULE TWICE A DAY ( OF 03/10/23) Trulicity 3 mg/0.5 mL pen injector 3 mg subcut TU atorvastatin 40 mg tablet 40 mg PO QHS Slow-Mag 71.5 mg tablet,delayed release (DR/EC) 71.5 mg PO BID ondansetron HCl 8 mg tablet 8 mg PO Q12H PRN (Reason: NAUSEA ) metformin 500 MG tablet 2 tab PO BID Qty: 120 0RF silver sulfadiazine 1 % cream 1 applic topical DAILY PRN (Reason: BURN) Rx Instructions: APPLY ONE APPLICATION ONCE DAILY NEEDED TO HAND glimepiride 4 mg tablet 4 mg PO BID acetaminophen [Acetaminophen Extra Strength] 500 mg tablet 500 mg PO Q6H PRN (Reason: PAIN ) aspirin [Adult Low Dose Aspirin] 81 mg tablet,delayed release (DR/EC) 81 mg PO DAILY Primary Care Provider: Deven Van Referrals: Deven Van MD [Primary Care Provider] - 3-5 Days if not improving (or your oncologist) Activity Restrictions/Additional Instructions: Drink plenty of fluids. If you stand up and feel lightheaded, sit or lie down until it passes and then get up more slowly. Print Language: [place] Disposition Disposition: Home, Self Care
[2023-11-26 15:03] VITALS: BP 136/75; PULSE 87; RESP 18; O2SAT 99
[2023-11-26 15:54] VITALS: O2SAT 97
[2023-11-26 16:41] VITALS: BP 125/78; PULSE 75; RESP 18; TEMP 36.3; O2SAT 98
== END 2023-11-26 16:41 | disposition home or self-care (01) ==
PROVIDERS: Emergency Provider Emergency Medicine; PCP Family Medicine; Visit Provider Emergency Medicine
DX: R55 Syncope and collapse (principal); J44.9 Chronic obstructive pulmonary disease, unspecified; E11.22 Type 2 diabetes mellitus with diabetic chronic kidney disease; E11.40 Type 2 diabetes mellitus with diabetic neuropathy, unspecified; N18.30 Chronic kidney disease, stage 3 unspecified; E86.0 Dehydration; S09.90XA Unspecified injury of head, initial encounter; I25.10 Atherosclerotic heart disease of native coronary artery without angina pectoris; X58.XXXA Exposure to other specified factors, initial encounter; Z87.891 Personal history of nicotine dependence
CPT/HCPCS: 36591; 70450; 80048; 84484; 85025; 93005; 99284; J7030; A4216

== ENCOUNTER 2023-12-17 09:18 | Outpatient (CLI) | payer MEDICARE, SELFPAY ==
[2023-12-17 09:35] VITALS: BP 154/86; PULSE 84; RESP 16; TEMP 35.7; O2SAT 99; BMI 42.7
[2023-12-17 10:10] VITALS: BP 153/67; PULSE 84; RESP 18; TEMP 35.8; O2SAT 97
[2023-12-17 11:10] VITALS: BP 138/61; PULSE 84; RESP 16; TEMP 35.9; O2SAT 100
== END 2023-12-17 23:59 | disposition home or self-care (01) ==
PROVIDERS: PCP Family Medicine; Referring Provider Internal Medicine Hematology & Oncology; Visit Provider Internal Medicine Hematology & Oncology
DX: D64.81 Anemia due to antineoplastic chemotherapy (principal)
CPT/HCPCS: 36430; 86850; 86900; 86901; 86920; 86922; P9016

== ENCOUNTER 2024-01-07 08:20 | Outpatient (CLI) | payer MEDICARE, SELFPAY ==
[2024-01-07 08:37] VITALS: BP 135/69; PULSE 92; RESP 16; TEMP 36.2; O2SAT 100; BMI 41.8
[2024-01-07 09:23] VITALS: BP 106/88; PULSE 82; RESP 18; TEMP 36.2
[2024-01-07 10:23] VITALS: BP 130/69; PULSE 78; RESP 16; TEMP 36.3; O2SAT 98
[2024-01-07 10:49] VITALS: BP 170/65; PULSE 85; RESP 16; TEMP 36.4; O2SAT 99
[2024-01-07 11:42] VITALS: BP 145/110; PULSE 87; RESP 16; TEMP 36.2; O2SAT 98
[2024-01-07 12:43] VITALS: BP 185/92; PULSE 90; RESP 16; TEMP 36.4; O2SAT 95
== END 2024-01-07 23:59 | disposition home or self-care (01) ==
LOC: MEDOUTP 08:21
PROVIDERS: PCP Family Medicine; Referring Provider Internal Medicine Hematology & Oncology; Visit Provider Internal Medicine Hematology & Oncology
DX: D64.81 Anemia due to antineoplastic chemotherapy (principal)
CPT/HCPCS: 36430; 86850; 86900; 86901; 86920; 86922; J7040; P9016; A4216

== ENCOUNTER 2024-04-27 16:11 | Inpatient (IN) | payer MEDICARE, SELFPAY ==
[2024-04-27] VITALS (11 sets, daily range): BP systolic 96–183; BP diastolic 56–85; PULSE 91–112; RESP 12–27; TEMP 36.7–39.5; O2SAT 93–100; BMI 45.3; BMI 44.1
--- NOTE | 2024-04-27 16:22 | CT_ITS ---
EXAM: CT brain without IV contrast CLINICAL HISTORY: Pain, fever, altered mental status, history of endometrial cancer COMPARISON: None TECHNIQUE: Multiple contiguous axial images of the brain were obtained without the administration of intravenous contrast. Two-dimensional coronal and sagittal reformatted images were reconstructed. Low-dose imaging technique was utilized. FINDINGS: No evidence of acute intracranial hemorrhage, midline shift or mass effect. No definite CT evidence of acute territorial cortical infarction. No hydrocephalus. Mild/moderate generalized cerebral atrophy and chronic small-vessel ischemic changes. No depressed calvarial fracture. Large exostosis along the left parietal convexity. Paranasal sinuses are clear. Small amount of fluid in the bilateral mastoid air cells. CT/Brain/Head without Contrast IMPRESSION: 1. No acute intracranial abnormality. If there is clinical concern for acute i schemia, MRI is most sensitive. 2. Chronic/incidental findings as above. Reading Location: [facility]
--- NOTE | 2024-04-27 16:22 | EKG12_ITS ---
Test Reason : CONFUSION Blood Pressure : */* mmHG Vent. Rate : 109 BPM Atrial Rate : 109 BPM P-R Int : 166 ms QRS Dur : 90 ms QT Int : 342 ms P-R-T Axes : 38 -27 78 degrees QTcB Int : 460 ms Sinus tachycardia Low voltage QRS Nonspecific ST and T wave abnormality Abnormal ECG Confirmed by Venancio Hayden ([id number]), development editor HOOD BRUNNER ([id number]) on 05/01/2024 10:03:45 AM Referred By: Fidencio Ordaz Confirmed By: Venancio Hayden
--- NOTE | 2024-04-27 16:22 | CT_ITS ---
PROCEDURE: CT abdomen pelvis with IV contrast REASON FOR EXAM: Pain, fever TECHNIQUE: Multiple contiguous axial images through the abdomen and pelvis were obtained after the administration of intravenous contrast. Two-dimensional coronal and sagittal reformatted images were reconstructed. Low-dose imaging technique was utilized. COMPARISON: None. FINDINGS: Trace bilateral pleural effusions. Subtle lobular contour of the liver potentially related to underlying hepatocellular disease. Spleen, pancreas and right adrenal gland are intact. Mild nodular thickening of the left adrenal gland. Gallbladder is surgically absent. No significant biliary ductal dilation. Kidneys enhance symmetrically. Suspected subtle enhancing lesion along the anterior midpole of the left kidney measuring up to 2.2 cm. Small left renal cyst. No renal calculi or hydronephrosis. Urinary bladder is decompressed. Uterus is absent. No bowel obstruction, focal bowel wall thickening or significant perienteric inflammation. Small nodular focus in the right hemipelvis (axial image 91/133). Subtle thickening of the left pericolic gutter fascial plane. Multiple small left-sided omental nodules. No pelvic free fluid. No free air. Calcified nonaneurysmal abdominal aorta. No bulky adenopathy. Small bilateral fat containing inguinal hernias. No acute osseous abnormality. Chronic appearing compression fracture deformities of T11 and L1. Degenerative changes of the spine and hips. CT/Abdomen/Pelvis W IV Cont ONLY IMPRESSION: 1. No obstruction or acute inflammatory process. 2. Left-sided omental nodularity with mild thickening of the left pericolic gut ter fascial plane and at least 1 small nodule within the pelvis. Findings concerning for metastatic disease. 3. Subtle apparent enhancing lesion in the anterior pole of the left kidney as above. Recommend further assessment with contrast-enhanced MRI. 4. Trace bilateral pleural effusions. 5. Subtle nodular contour of the liver. Correlate with liver enzymes. One or more dose reduction techniques were used (e.g., Automated exposure contr ol, adjustment of the mA and/or kV according to patient size, use of iterative reconstruction technique). Reading Location: [facility]
--- NOTE | 2024-04-27 16:25 | EX.ED.DYSGE1 ---
HPI History of Present Illness Chief Complaint: Confusion Narrative Narrative: Patient is a 70-year-old female with past medical history of endometrial cancer with metastases, pancytopenia, chronic kidney disease stage III, GERD, hypercholesteremia, hypertension, diabetes who presented to the emergency department with a chief complaint of altered mental status. According to the family at bedside she was very confused at home today and notes that she was confused on the year and told her sister check her foot off She meant to take her sock off even though this was already off. States that she chronically is on 3 L nasal cannula at baseline. Patient according to family at bedside 2 days ago had new chemotherapy and follows with Dr. Hernandes oncology. They called his office and they advised the family members to bring her to the emergency department to be further evaluated. The family were states that the last round of chemotherapy was not working for her endometrial cancer therefore they are trying a new one. [facility] Medical History Former smoker Endometrial cancer, FIGO stage IIIC Pancytopenia Hypomagnesemia History of cancer of uterus Obesity Dyslipidemia Coronary artery disease Nonischemic cardiomyopathy CKD (chronic kidney disease) stage 3, GFR 30-59 ml/min Endometrial cancer GERD (gastroesophageal reflux disease) Benign neoplasm of colon Cholecystitis Hypercholesteremia Neuropathy Diabetes Hypertension Chest pain Home Medications ?Medication ?Instructions ?Recorded ?Last Taken ?Type amitriptyline 50 mg tablet 50 mg PO QHS DEPRESSION 12/23/22 03/09/23 History atorvastatin 40 mg tablet 40 mg PO QHS CHOLESTEROL 12/23/22 03/09/23 History dulaglutide 3 mg/0.5 mL 3 mg subcut TU DIABETES 12/23/22 03/09/23 History subcutaneous pen injector (Trulicity) gabapentin 100 mg capsule 100 mg PO TID NERVE PAIN 12/23/22 03/10/23 History magnesium chloride 71.5 mg 71.5 mg PO BID SUPPLEMENT 12/29/22 03/10/23 History (magnesium chloride) tablet,delayed release (Slow-Mag) ondansetron HCl 8 mg tablet 8 mg PO Q12H PRN NAUSEA 12/29/22 Unknown History aspirin 81 mg tablet,delayed 81 mg PO DAILY HEART HEALTH 01/24/23 03/10/23 History release (Adult Low Dose Aspirin) acetaminophen 500 mg tablet 500 mg PO Q6H PRN PAIN 03/10/23 Unknown History (Acetaminophen Extra Strength) glimepiride 4 mg tablet 4 mg PO BID DIABETES 03/10/23 03/10/23 History silver sulfadiazine 1 % topical 1 applic topical DAILY PRN BURN 03/10/23 03/10/23 History cream carvedilol 3.125 mg tablet 6.25 mg PO BID 12/17/23 Unknown History duloxetine 60 mg capsule,delayed 60 mg PO DAILY 04/27/24 Unknown History release fluticasone furoate 100 1 inh inhalation Q24H 04/27/24 Unknown History mcg-vilanterol 25 mcg/dose inhalation powder metformin 500 mg tablet 1,000 mg PO BID DIABETES 04/27/24 Unknown History Allergy/AdvReac Type Severity Reaction Status Date / Time No Known Allergies Allergy Verified 04/27/24 16:18 Family History Father Myocardial infarction Mother Heart disease irregular heart rate Colon cancer Surgical History History of cholecystectomy Hx of hysterectomy, total Hx laparoscopic cholecystectomy Hx of cataract surgery History of total left knee replacement (TKR) (~01/2011) History of total right knee replacement (TKR) (~05/11/11) Social History household members: none Smoking Status: Former smoker how long ago did patient quit smokin alcohol intake: never substance use type: does not use ROS ROS ED ROS Narrative Constitutional: Denies fever, chills, headaches, lightness, dizziness Eyes: Denies change in vision double vision blurry vision Cardiovascular: Denies chest pain Respiratory: Denies coughing shortness of breath Abdomen: Complains of nausea vomiting denies any abdominal pain : Denies urinary symptoms Neurological: Denies numbness, weakness, tingling Musculoskeletal: Denies back pain Skin: Denies rashes or lesions EXAM Physical Exam Narrative Exam Narrative: General: Patient lying in bed rest comfortably did not appear to be acute distress Head: Atraumatic, normocephalic Eyes: PERRL bilaterally, EOMI bilaterally, no conjunctival injection noted Neck: Soft, supple, trachea midline Cardiovascular: Regular rate and rhythm no murmurs gallops rubs noted Respiratory: Clear to auscultation bilaterally no rales rhonchi or wheezes noted Abdomen: Soft, nondistended, diffuse tenderness palpation no rebound or guarding on exam Extremities: Patient moving all extremities however extremely weak in her bilateral upper and lower extremities Neurological: Patient following commands knew that she was at the hospital was confused on the year and knew that we were in winter Skin: Warm, dry, intact no rashes lesions noted Const Vital Signs: 04/27/24 16:11 04/27/24 16:21 04/27/24 16:43 Temperature 103.1 F H 103.1 F H Temperature Source Oral Oral Pulse Rate 111 H 111 H Respiratory Rate 18 25 H Respiratory Pattern Blood Pressure 183/85 H 183/85 H Blood Pressure Mean 117 117 Pulse Ox 93 93 Oxygen Delivery Method Nasal Cannula Nasal Cannula Nasal Cannula Oxygen Flow Rate (L/min) 3 3 3 04/27/24 16:46 04/27/24 17:04 04/27/24 17:21 Temperature 99.9 F H Temperature Source Oral Pulse Rate 111 H 106 H Respiratory Rate 20 H 27 H Respiratory Pattern Tachypnea Blood Pressure 141/72 H Blood Pressure Mean 95 Pulse Ox 98 97 Oxygen Delivery Method Nasal Cannula Nasal Cannula Oxygen Flow Rate (L/min) 3 3 04/27/24 18:00 04/27/24 18:47 04/27/24 19:00 Temperature 99.9 F H 98.3 F 98.1 F Temperature Source Oral Oral Pulse Rate 112 H 97 96 Respiratory Rate 12 25 H 18 Respiratory Pattern Blood Pressure 131/64 H 103/65 96/67 Blood Pressure Mean 86 77 76 Pulse Ox 97 96 97 Oxygen Delivery Method Nasal Cannula Nasal Cannula Oxygen Flow Rate (L/min) 3 3 04/27/24 20:00 Temperature 98.1 F Temperature Source Oral Pulse Rate 93 Respiratory Rate 18 Respiratory Pattern Blood Pressure 116/60 Blood Pressure Mean 78 Pulse Ox 98 Oxygen Delivery Method Nasal Cannula Oxygen Flow Rate (L/min) 3 MDM MDM MDM Narrative Medical decision making narrative: Patient is a 70-year-old female who presented to the emerged part with a chief complaint of altered mental status. On the differential diagnose includes not limited to UTI, cranial hemorrhage, metastatic disease intracranially, hypoglycemia, electrolyte abnormality. Once workup is obtained reviewed she will be reevaluated. Patient be given 30 cc/kg bolus based on ideal body weight as her BMI is greater than 30 this was ordered at 1625. Patient will be given a gram of Tylenol as she is febrile here and Zofran for her nausea. Patient CBC was reviewed and showed no evidence leukocytosis white blood count normal at 6.1, hemoglobin is 8.7 which was down from 9.6, plate count was noted be 125 she recently did receive chemotherapy, absolute neutrophil count normal at 5.5. Patient INR 1.1, PT of 14.3. Patient sodium normal 135, potassium normal 4.6, creatinine normal at 1. Patient AST and ALT were 33 and 27 respectively. Patient's urinalysis showed 25 leukocyte esterase negative nitrites however there is 3+ bacteria noted this was sent for culture. Patient was given a gram of Rocephin at 1810. Patient tested negative for COVID flu RSV. Patient's chest x-ray reviewed by myself by radiology showed no acute cardiopulmonary processes there is suspected small left upper lobe pulmonary nodule recommending CT chest on a nonemergent basis. Patient CT head and brain without contrast showed no acute intracranial abnormality. Patient CT abdomen pelvis with IV contrast showed no obstruction or acute inflammatory processes. Left-sided omental nodularity with mild thickening of the left pericolic gutter fascial plane and at least 1 small nodule within the pelvis concerning for metastatic disease. Subtle appearance enhancing lesion in the inferior pole of left kidney noted. Trace bilateral pleural effusions subtle nodular contour of the liver correlate with liver enzymes. At this point time we will plan to admit the patient to the hospital for her metabolic encephalopathy, UTI and her CT abdomen/pelvis findings. Will discuss case with hospitalist. Did discuss case with hospitalist Dr. Negron who accept patient for admission. He is requesting adding on Flagyl which was ordered. Patient notified as well as family was bedside all question concerns answered. Lab Data Labs: Laboratory Results - last 24 hr 04/27/24 04/27/24 16:50 17:30 WBC 6.1 RBC 2.62 L Hgb 8.7 L Hct 26.0 L MCV 99.2 H MCH 33.2 H MCHC 33.5 RDW Std Deviation 52.6 H RDW Coeff of [place] 14.5 Plt Count 125 L MPV 10.3 Immature Gran % (Auto) 0.700 Neut % (Auto) 90.9 H Lymph % (Auto) 6.1 L [place] % (Auto) 2.1 Eos % (Auto) 0.0 Baso % (Auto) 0.2 Absolute Neuts (auto) 5.5 Absolute Lymphs (auto) 0.37 L Nucleated RBC % 0 PT 14.3 INR 1.1 APTT 33.1 Sodium 135 Potassium 4.6 Chloride Direct 97 Carbon Dioxide 29.0 Anion Gap 9 BUN 20 H Creatinine 1.0 Estim Creat Clear Calc 66.05 Est GFR (MDRD) Non-Af 58 L BUN/Creatinine Ratio 20.5 H Glucose 141 H Lactic Acid 1.1 Calcium 9.2 Total Bilirubin 0.42 AST 33 H ALT 27 Alkaline Phosphatase 71 Total Protein 7.0 Albumin 3.8 Globulin 3.1 Albumin/Globulin Ratio 1.2 Urine Color Yellow Urine Clarity Sl. Cloudy Urine pH 7.0 Ur Specific [place] 1.005 Urine Protein 30 H Urine Glucose (UA) Normal Urine Ketones Negative Urine Occult Blood 25 H Urine Nitrite Negative Urine Bilirubin Negative Urine Urobilinogen Normal Ur Leukocyte Esterase 25 H Urine RBC 0 SEEN Urine WBC 0-5 SEEN Ur Squamous Epith Cells 0 SEEN Urine Bacteria 3+ Urine Mucus 0 SEEN Radiography Diagnostic Testing: Clinical Impression(s) from Imaging Studies Abdomen/Pelvis CT 04/27/24 16:22 IMPRESSION: 1. No obstruction or acute inflammatory process. 2. Left-sided omental nodularity with mild thickening of the left pericolic gutter fascial plane and at least 1 small nodule within the pelvis. Findings concerning for metastatic disease. 3. Subtle apparent enhancing lesion in the anterior pole of the left kidney as above. Recommend further assessment with contrast-enhanced MRI. 4. Trace bilateral pleural effusions. 5. Subtle nodular contour of the liver. Correlate with liver enzymes. One or more dose reduction techniques were used (e.g., Automated exposure control, adjustment of the mA and/or kV according to patient size, use of iterative reconstruction technique). Reading Location: [facility] Brain CT 04/27/24 16:22 IMPRESSION: 1. No acute intracranial abnormality. If there is clinical concern for acute ischemia, MRI is most sensitive. 2. Chronic/incidental findings as above. Reading Location: [facility] Chest X-Ray 04/27/24 18:30 IMPRESSION: 1. No acute airspace abnormality. 2. Suspected small left upper lobe pulmonary nodule. Recommend further assessment with chest CT on a nonemergent basis. [facility] T[facility] Chief Complaint: Confusion Other Complaint: Weakness ED Provider: Fidencio Ordaz Dx/Rx/DC Orders Clinical Impression: Metabolic encephalopathy, Fever, Abnormal computed tomography of abdomen and pelvis Prescriptions: No Action amitriptyline 50 mg tablet 50 mg PO QHS gabapentin 100 mg capsule 100 mg PO TID Patient Comments: PT STATES ONLY TAKES ONE CAPSULE TWICE A DAY ( OF 04/27/24) Trulicity 3 mg/0.5 mL pen injector 3 mg subcut TU atorvastatin 40 mg tablet 40 mg PO QHS Slow-Mag 71.5 mg tablet,delayed release (DR/EC) 71.5 mg PO BID ondansetron HCl 8 mg tablet 8 mg PO Q12H PRN (Reason: NAUSEA ) silver sulfadiazine 1 % cream 1 applic topical DAILY PRN (Reason: BURN) Rx Instructions: APPLY ONE APPLICATION ONCE DAILY NEEDED TO HAND glimepiride 4 mg tablet 4 mg PO BID acetaminophen [Acetaminophen Extra Strength] 500 mg tablet 500 mg PO Q6H PRN (Reason: PAIN ) aspirin [Adult Low Dose Aspirin] 81 mg tablet,delayed release (DR/EC) 81 mg PO DAILY carvedilol 3.125 mg tablet 6.25 mg PO BID fluticasone furoate-vilanterol 100-25 mcg/dose blister with device 1 inh INHALATION Q24H Patient Comments: [NO ORIGINAL SIG] duloxetine 60 mg capsule,delayed release(DR/EC) 60 mg PO DAILY metformin 500 MG tablet 1,000 mg PO BID Primary Care Provider: Deven Van Referrals: Deven Van MD [Primary Care Provider] - Print Language: Congolese Disposition Disposition: Acute Care Hospital [facility]
[2024-04-27] MEDS: 0.9% Normal Saline (1000mL) 1,000 ML 999 ML IV ×3 (16:46→19:45)
[2024-04-27] MEDS: Acetaminophen 500 MG Tablet 1000 MG PO (16:46)
[2024-04-27] MEDS: Ondansetron 4 MG/2 ML Vial IV (16:46)
[2024-04-27 17:08] LABS: Absolute Lymphocyte Count 0.37 X10^3/uL (0.83-4.51); Absolute Neutrophil Count 5.5 X10^3/uL (2.0-7.7); Basophil# 0.01 X10^3/uL; Basophil% 0.2 % (0-1); Hemoglobin 8.7 g/dL (12.0-15.0); Lymphocyte # 0.37 X10^3/ul (0.83-4.51); Lymphocyte % 6.1 % (19-41); Mean Corp Hgb Conc 33.5 g/dL (32-36); Mean Corpuscular Hgb 33.2 pg (27.0-32.0); Mean Corpuscular Volume 99.2 fL (81-99); Mean Platelet Vol. 10.3 fl (6.2-12.0); Monocyte# 0.13 X10^3/uL; Monocyte% 2.1 % (0-10); NRBC Flagged by Analyzer 0 % (0-5); Neutrophil # 5.51 X10^3/uL (2.7-7.7); Neutrophil % 90.9 % (47-70); POSITIVE DIFFERENTIAL YES; Platelet Count 125 K/mm3 (150-450); RBC Distribution Width CV 14.5 % (11.6-14.6); RBC Distribution Width SD 52.6 fl (35.1-43.9); Red Blood Count 2.62 M/mm3 (4.2-5.4); White Blood Count 6.1 K/mm3 (4.4-11.0)
[2024-04-27 17:18] LABS: International Normalized Ratio 1.1; Prothrombin Time (Protime)PT. 14.3 SECONDS (11.7-14.9)
[2024-04-27 17:19] LABS: Partial Thromboplast Time 33.1 Seconds (24.1-36.2)
[2024-04-27 17:46] LABS: Mucous, Urine 0 SEEN /hpf (<or=2+); Squamous Epithelial Cells - UA 0 SEEN /hpf (5-10)
[2024-04-27 17:51] LABS: Lactic Acid 1.1 mmol/L (0.0-2.0)
[2024-04-27 17:52] LABS: ALB/GLOB Ratio 1.2 RATIO (0.9-2.4); AST(SGOT) 33 U/L (<=31); Alanine Aminotransfer ALT/SGPT 27 U/L (<=34); Albumin, Serum 3.8 g/dL (3.4-4.8); Alkaline Phosphatase 71 U/L (35-104); Anion Gap 9 (5-15); BUN 20 mg/dL (4-19); BUN/Creat Ratio 20.5 RATIO (10-20); Calcium 9.2 mg/dL (7.6-11.0); Chloride 97 mmol/L (96-108); EST Glomerular Filtration Rate 58 (>60); Estimated Creatinine Clearance 66.05 ml/min; Globulin 3.1 g/dL (2.2-4.2); Glucose 141 mg/dL (70-99); Potassium 4.6 mmol/L (3.3-5.1); Sodium Level 135 mmol/L (133-145); Total Bilirubin 0.42 mg/dL (0.00-1.30)
[2024-04-27 18:00] LABS: Color, Urine Yellow (Yellow); Glucose, Dipstick Normal (Normal); Ketone-Dipstick Negative (Negative); Leukocyte Esterase-Dipstick 25 /ul (Negative); Nitrite-Dipstick Negative (Negative); Occult Blood-Urine 25 /ul (Negative); Protein-Dipstick 30 mg/dl (Negative); Specific Gravity, Urine 1.005 (1.002-1.030); Urine Bilirubin Dipstick Negative (Negative); Urine Clarity Sl. Cloudy (Clear); Urine Urobilinogen Normal (Normal)
[2024-04-27 18:06] LABS: Bacteria 3+ /hpf (None Seen); Red Blood Cells-Urine 0 SEEN /hpf (0-5); White Blood Cells 0-5 SEEN /hpf (0-5)
--- NOTE | 2024-04-27 18:30 | RAD_ITS ---
PROCEDURE: Chest radiographs REASON FOR EXAM: Fever TECHNIQUE: Frontal and lateral views of the chest. COMPARISON: None. FINDINGS: Cardiomediastinal silhouette is within normal limits. No focal consolidation. No sizable pneumothorax. Left MediPort catheter in place. Possible 10 mm nodule in the left upper lobe overlying the medial scapular border. RAD/Chest PA and Lateral IMPRESSION: 1. No acute airspace abnormality. 2. Suspected small left upper lobe pulmonary nodule. Recommend further assessm ent with chest CT on a nonemergent basis. Reading Location: [facility]
[2024-04-27] MEDS: Ceftriaxone 1 GM/50 ML BAG IV (18:38)
--- NOTE | 2024-04-27 20:16 | PCM.HP.STD ---
[facility] - General General Date of Admission: 04/27/24 Date of Service: 04/27/24 Chief Complaint: Fever and Confusion. HPI Narrative PRICILA HOOKER, is a 78 F with a past medical history of essential hypertension; on carvedilol, hyperlipidemia; on atorvastatin, morbid obesity; with BMI of 45.3 this admission, former tobacco abuse (quit 1967), DM-2; of unknown control on dulaglutide, glimepiride and metformin, history of diabetic neuropathy; on gabapentin 3 times daily, history of CAD; on baby aspirin daily, history of nonischemic cardiomyopathy, CKD; stage IIIa, history of asthma; on fluticasone furoate-vilanterol, chronic hypoxic respiratory failure on 3L NC (nocturnal), depression; on duloxetine and amitriptyline, history of cataract surgery, history of cholecystitis; s/p laparoscopic cholecystectomy, history of GERD; currently not on treatment, OA; with history of bilateral TKR's and history of metastatic endometrial cancer; s/p total hysterectomy on chemotherapy with history of pancytopenia followed by Dr. Hernandes of oncology who presents to [facility] ER complaining of fever and confusion. Ms. Hooker is not a fully-reliable historian at this time so information was gathered from chart, medical staff and computer. The patient's family informed the ER physician that she was noted to be confused at home earlier today with patient asking her sister to take her socks off - even though she did not have any socks on at that time. The family also reported that she had new chemotherapy 2 days ago with patient apparently having difficulty tolerating her new regimen after she has been taken off her old chemotherapy regimen because it was not working and was causing adverse side effects. The family then called Dr. Hernandes's office and they were instructed to bring her into the ER for further evaluation and treatment. Though the patient is a limited historian she admits to intermittent nausea with vomiting causing bilious emesis. She denies associated chills, headaches, visual changes, chest pain, shortness of breath, cough, dysuria, hematuria, abdominal pain, diarrhea, constipation or rash. In the ER she was noted to have a fever of 103.1 ?F along with Tachycardia of 111 bpm and Uncontrolled Hypertension of 183/85 mmHg present on admission likely due to Adverse Drug Reaction to Chemotherapy suspected to be causing Fever with Metabolic Encephalopathy with CT scan of the abdomen pelvis done in ER revealing no obstruction or acute inflammatory process with Left-sided omental nodularity with mild thickening of the Left pericolic gutter fascial plane and at least ~1 small nodule within the pelvis with findings concerning for Metastatic Disease along with subtle apparent enhancing lesion in the anterior pole of the Left kidney as above with recommend further assessment with contrast-enhanced MRI in addition to trace bilateral pleural effusions and subtle nodular contour of the liver. Her UA was positive for evidence of colonization but not acute infection with patient started on empiric ceftriaxone IV in the ER along with IV metronidazole in case patient's metastatic disease to the Left pericolic gutter fascial plane is a source of her infection, which is doubtful as she denies abdominal pain or other GI symptoms at this time. She was then admitted to the general medical floor under observation status for ongoing care for stay that is expected to be less than 2 midnights. [facility] Medical History (Updated 04/28/24 @ 03:[address] Eduardo Villegas, DO) Hypomagnesemia Former smoker Endometrial cancer, FIGO stage IIIC Pancytopenia History of cancer of uterus Obesity Dyslipidemia Coronary artery disease Nonischemic cardiomyopathy CKD (chronic kidney disease) stage 3, GFR 30-59 ml/min Endometrial cancer GERD (gastroesophageal reflux disease) Benign neoplasm of colon Cholecystitis Hypercholesteremia Neuropathy Diabetes Hypertension Chest pain Home Medications ?Medication ?Instructions ?Recorded ?Last Taken ?Type amitriptyline 50 mg tablet 50 mg PO QHS DEPRESSION 12/23/22 03/09/23 History atorvastatin 40 mg tablet 40 mg PO QHS CHOLESTEROL 12/23/22 03/09/23 History dulaglutide 3 mg/0.5 mL 3 mg subcut TU DIABETES 12/23/22 03/09/23 History subcutaneous pen injector (Trulicity) gabapentin 100 mg capsule 100 mg PO TID NERVE PAIN 12/23/22 03/10/23 History magnesium chloride 71.5 mg 71.5 mg PO BID SUPPLEMENT 12/29/22 03/10/23 History (magnesium chloride) tablet,delayed release (Slow-Mag) ondansetron HCl 8 mg tablet 8 mg PO Q12H PRN NAUSEA 12/29/22 Unknown History aspirin 81 mg tablet,delayed 81 mg PO DAILY HEART HEALTH 01/24/23 03/10/23 History release (Adult Low Dose Aspirin) acetaminophen 500 mg tablet 500 mg PO Q6H PRN PAIN 03/10/23 Unknown History (Acetaminophen Extra Strength) glimepiride 4 mg tablet 4 mg PO BID DIABETES 03/10/23 03/10/23 History silver sulfadiazine 1 % topical 1 applic topical DAILY PRN BURN 03/10/23 03/10/23 History cream carvedilol 3.125 mg tablet 6.25 mg PO BID 12/17/23 Unknown History duloxetine 60 mg capsule,delayed 60 mg PO DAILY 04/27/24 Unknown History release fluticasone furoate 100 1 inh inhalation Q24H 04/27/24 Unknown History mcg-vilanterol 25 mcg/dose inhalation powder metformin 500 mg tablet 1,000 mg PO BID DIABETES 04/27/24 Unknown History Allergy/AdvReac Type Severity Reaction Status Date / Time No Known Allergies Allergy Verified 04/27/24 16:18 Family History Father Myocardial infarction Mother Heart disease irregular heart rate Colon cancer Surgical History History of cholecystectomy Hx of hysterectomy, total Hx laparoscopic cholecystectomy Hx of cataract surgery History of total left knee replacement (TKR) (~01/2011) History of total right knee replacement (TKR) (~05/11/11) Social History household members: none Smoking Status: Former smoker how long ago did patient quit smokin alcohol intake: never substance use type: does not use ROS ROS Narrative Review of Systems: Constitutional: Patient admits to fever but she denies chills. Eyes: Patient denies changes in vision or discharge from eyes. ENT: Patient denies runny nose, sore throat or ear pain. Resp: Patient denies shortness of breath or cough. CV: Patient denies chest pain, palpitations, heart racing or lower extremity edema. GI: Patient denies abdominal pain, nausea, vomiting, diarrhea or constipation. : Patient denies dysuria or hematuria. MSK: Patient denies arthralgias or myalgias. Skin: Patient denies rash, abscess, wounds or jaundice. Psych: Patient denies symptoms of uncontrolled depression or anxiety. Neuro: Patient admits to transient confusion coinciding with fever but she denies headache, paresthesias or focal motor neurologic deficits. Allergy: Patient denies lip swelling, tongue swelling or urticaria. Hematology: Patient denies easy bleeding or easy bruisability. Endocrinology: Patient denies polyuria, polydipsia or polyphagia. 14 point ROS was otherwise negative except for positives in HPI. Vital Signs Vital Signs Vital Signs: 04/27/24 16:11 04/27/24 16:21 04/27/24 16:43 Temperature 103.1 F H 103.1 F H Temperature Source Oral Oral Pulse Rate 111 H 111 H Respiratory Rate 18 25 H Respiratory Pattern Blood Pressure 183/85 H 183/85 H Blood Pressure Mean 117 117 Pulse Ox 93 93 Oxygen Delivery Method Nasal Cannula Nasal Cannula Nasal Cannula Oxygen Flow Rate (L/min) 3 3 3 04/27/24 16:46 04/27/24 17:04 04/27/24 17:21 Temperature 99.9 F H Temperature Source Oral Pulse Rate 111 H 106 H Respiratory Rate 20 H 27 H Respiratory Pattern Tachypnea Blood Pressure 141/72 H Blood Pressure Mean 95 Pulse Ox 98 97 Oxygen Delivery Method Nasal Cannula Nasal Cannula Oxygen Flow Rate (L/min) 3 3 04/27/24 18:00 04/27/24 18:47 04/27/24 19:00 Temperature 99.9 F H 98.3 F 98.1 F Temperature Source Oral Oral Pulse Rate 112 H 97 96 Respiratory Rate 12 25 H 18 Respiratory Pattern Blood Pressure 131/64 H 103/65 96/67 Blood Pressure Mean 86 77 76 Pulse Ox 97 96 97 Oxygen Delivery Method Nasal Cannula Nasal Cannula Oxygen Flow Rate (L/min) 3 3 04/27/24 20:00 Temperature 98.1 F Temperature Source Oral Pulse Rate 93 Respiratory Rate 18 Respiratory Pattern Blood Pressure 116/60 Blood Pressure Mean 78 Pulse Ox 98 Oxygen Delivery Method Nasal Cannula Oxygen Flow Rate (L/min) 3 Weight Weight: 293 lb 10.491 oz Body Mass Index (BMI) 45.3 Physical Exam Const alert and no apparent distress Constitutional Narrative: Morbidly obese patient with mild confusion. Orientation / Consciousness: confused HEENT normocephalic, head/scalp atraumatic, hearing grossly normal bilaterally and moist oral mucous membranes Eyes PERRL, EOMs intact bilaterally and conjunctivae normal Neck no lymphadenopathy, supple and no JVD Resp normal respiratory effort, no retractions, no use of accessory muscles and clear to auscultation bilaterally Cardio regular rate and regular rhythm GI normal to inspection, nondistended, normoactive bowel sounds, soft to palpation, non-tender and non-distended GI Narrative: Morbidly obese. Extremity normal to inspection, full ROM and no clubbing, cyanosis or edema Skin Skin Narrative: Patient has no evidence of rash, abscess, wounds or jaundice. Neuro CN's II-XII intact bilaterally, moves all extremities and no focal motor deficits Sensorium / Orientation: awake, alert, oriented to person and oriented to place Speech: speech normal Psych affect normal Results Medical Records Data Attestation: I reviewed the patient's medical records Lab / Micro Data Attestation: I reviewed the patient's lab results. 04/27/24 16:50 04/27/24 16:50 Labs: Laboratory Results - last 24 hr 04/27/24 16:50: WBC 6.1, RBC 2.62 L, Hgb 8.7 L, Hct 26.0 L, MCV 99.2 H, MCH 33.2 H, MCHC 33.5, RDW Std Deviation 52.6 H, RDW Coeff of [place] 14.5, Plt Count 125 L, MPV 10.3, Immature Gran % (Auto) 0.700, Neut % (Auto) 90.9 H, Lymph % (Auto) 6.1 L, [place] % (Auto) 2.1, Eos % (Auto) 0.0, Baso % (Auto) 0.2, Absolute Neuts (auto) 5.5, Absolute Lymphs (auto) 0.37 L, Nucleated RBC % 0, PT 14.3, INR 1.1, APTT 33.1, Sodium 135, Potassium 4.6, Chloride Direct 97, Carbon Dioxide 29.0, Anion Gap 9, BUN 20 H, Creatinine 1.0, Estim Creat Clear Calc 66.05, Est GFR (MDRD) Non-Af 58 L, BUN/Creatinine Ratio 20.5 H, Glucose 141 H, Lactic Acid 1.1, Calcium 9.2, Total Bilirubin 0.42, AST 33 H, ALT 27, Alkaline Phosphatase 71, Total Protein 7.0, Albumin 3.8, Globulin 3.1, Albumin/Globulin Ratio 1.2 04/27/24 17:30: Urine Color Yellow, Urine Clarity Sl. Cloudy, Urine pH 7.0, Ur Specific [place] 1.005, Urine Protein 30 H, Urine Glucose (UA) Normal, Urine Ketones Negative, Urine Occult Blood 25 H, Urine Nitrite Negative, Urine Bilirubin Negative, Urine Urobilinogen Normal, Ur Leukocyte Esterase 25 H, Urine RBC 0 SEEN, Urine WBC 0-5 SEEN, Ur Squamous Epith Cells 0 SEEN, Urine Bacteria 3+, Urine Mucus 0 SEEN Micro: Microbiology 04/27/24 16:50 Mucosa - Nose SARS-CoV-2, Influenza & RSV (PCR) - Final Imaging Radiology Impression Abdomen/Pelvis CT 04/27/24 16:22 IMPRESSION: 1. No obstruction or acute inflammatory process. 2. Left-sided omental nodularity with mild thickening of the left pericolic gutter fascial plane and at least 1 small nodule within the pelvis. Findings concerning for metastatic disease. 3. Subtle apparent enhancing lesion in the anterior pole of the left kidney as above. Recommend further assessment with contrast-enhanced MRI. 4. Trace bilateral pleural effusions. 5. Subtle nodular contour of the liver. Correlate with liver enzymes. One or more dose reduction techniques were used (e.g., Automated exposure control, adjustment of the mA and/or kV according to patient size, use of iterative reconstruction technique). Reading Location: [facility] Brain CT 04/27/24 16:22 IMPRESSION: 1. No acute intracranial abnormality. If there is clinical concern for acute ischemia, MRI is most sensitive. 2. Chronic/incidental findings as above. Reading Location: [facility] Chest X-Ray 04/27/24 18:30 IMPRESSION: 1. No acute airspace abnormality. 2. Suspected small left upper lobe pulmonary nodule. Recommend further assessment with chest CT on a nonemergent basis. Reading Location: [facility] Assessment & Plan Assessment/Plan (1) Adverse drug reaction: QUALIFIERS: Encounter type: initial encounter Qualified Code(s): T50.905A - Adverse effect of unspecified drugs, medicaments and biological substances, initial encounter (2) Fever: QUALIFIERS: Fever type: unspecified Qualified Code(s): R50.9 - Fever, unspecified (3) Tachycardia: (4) Uncontrolled hypertension: (5) Metabolic encephalopathy: (6) Hypomagnesemia: (7) Endometrial cancer: (8) Morbid obesity with BMI of 40.0-44.9, adult: PLAN: Plan 1. Fever of 103.1 ?F along with Tachycardia of 111 bpm and Uncontrolled Hypertension of 183/85 mmHg present on admission likely due to Adverse Drug Reaction to Chemotherapy in the setting of history of metastatic endometrial cancer; s/p total hysterectomy with history of pancytopenia followed by Dr. Hernandes of oncology - Admit to general medical floor. Patient explains she was just switched from Keytruda to a new regimen because she was poorly tolerating this agent and that also was not controlling her malignancy with increasing metastases. Patient has UA with colonization rather than acute infection in addition CT scan of the abdomen pelvis that revealed no obstruction or acute inflammatory process with Left-sided omental nodularity with mild thickening of the Left pericolic gutter fascial plane and at least ~1 small nodule within the pelvis with findings concerning for Metastatic Disease along with subtle apparent enhancing lesion in the anterior pole of the Left kidney as above with recommend further assessment with contrast-enhanced MRI in addition to trace bilateral pleural effusions and subtle nodular contour of the liver with the patient having no abdominal pain or other signs of overt infection. She was started on empiric IV ceftriaxone and IV metronidazole to cover until her fever resolved and all of the sources of infection have been ruled out. Finally, recommended MRI to further delineate new lesion noted in the anterior pole of Left kidney has been ordered and is pending at this time. 2. Metabolic Encephalopathy causing confusion due to #1 - Continue conservative management and monitor for improvement. Check TSH, B12 and UDS to evaluate for potential reversible causes of confusion. 3. Hypomagnesemia of 1.2 mg/dL present on admission complicating #1 & #2 - Give supplemental magnesium sulfate IV once and then recheck level at noon to ensure improvement. 4. Morbid Obesity; with BMI of 45.3 this admission adding to the burden of disease outlined from #1 - #3 - Weight loss will be recommended. Check TSH. This complicates her case and may hamper her recovery. 5. DM-2; of unknown control on dulaglutide, glimepiride and metformin adding to the medical complexity of #1 - #4 - Hold current regimen while inpatient. ADA diet with FSBS q. AC/HS plus SSI of lowest-intensity. Check HgbA1c to objectively assess quality of diabetic control. 6. Chronic hypoxic respiratory failure on 3L NC (nocturnal) - Continue current nocturnal supplemental oxygen as before. 7. Essential Hypertension; on carvedilol - Maintain current therapy plus give hydralazine IV prn for systolic blood pressure >160 mmHg. 8. Hyperlipidemia; on atorvastatin - Resume statin and check Lipid Profile. 9. Former tobacco abuse (quit 1967) - Noted. 10. History of diabetic neuropathy; on gabapentin 3 times daily - Continue gabapentin as previous. 11. History of CAD; on baby aspirin daily - Stable. Maintain on baby aspirin daily. 12. History of nonischemic cardiomyopathy - Stable. 13. CKD; stage IIIa - Stable with serum creatinine of 1 mg/dL and BUN of 20 mg/dL with EGFR of 58 mL/min present on admission. 14. History of asthma; on fluticasone furoate-vilanterol - Stable with no evidence of acute flare at this time. Continue current treatment. 15. Depression; on duloxetine and amitriptyline - Resume current management as her symptoms are well-controlled. 16. History of cataract surgery - Noted for the sake of completeness. 17. History of cholecystitis; s/p laparoscopic cholecystectomy - Noted. 18. History of GERD; currently not on treatment - Start PPI if symptoms develop. 19. OA; with history of bilateral TKR's - Stable. Give acetaminophen prn pain or fever. 20. DVT prophylaxis - Lovenox 40 mg sq BID plus SCD's. Total time: Approximately (but not less than) 75 minutes. Charges/Coding Visit Charges Inpatient E&M: 82471 Init Hosp L3
--- NOTE | 2024-04-27 21:09 | MRI_ITS ---
PROCEDURE: MRI ABD WITH AND W/O CONTRAST REASON FOR EXAM: Metastatic endometrial cancer TECHNIQUE: Multiplanar, multisequence MRI of the upper abdomen without and with intravenous gadolinium-based contrast. COMPARISON: None. FINDINGS: Liver: Normal hepatic signal. No hepatic mass. Normal enhancement. Biliary: The gallbladder intrahepatic ducts and common bile duct appear normal. Pancreas: No mass or ductal dilation. Spleen: Normal size, signal intensities and contrast enhancement. Adrenals: No evidence of adrenal mass. Kidneys: No evidence of hydronephrosis. 2.8 cm T2 hyperintense left renal mass likely representing a cyst. There is a 0.7 cm T2 hyperintense mass noted in the right kidney. Peritoneum / Retroperitoneum: No ascites. Lymph Nodes: No upper abdominal lymphadenopathy. Major Vessels: The abdominal aorta and IVC are unremarkable. The portal and hepatic veins are patent. Bones: Bone marrow signal is unremarkable. MRI/MRI Abd WITH and W/O Contrast IMPRESSION: 1. No evidence of metastatic disease in the abdomen. 2. Bilateral renal cysts Reading Location: [facility]
[2024-04-27] MEDS: metroNIDAZOLE 500 MG/100 ML BAG 100 MG IV (21:26)
[2024-04-27 22:25] LABS: Magnesium 1.2 mg/dL (1.5-2.2); Thyroid Stim Hormone (TSH) 0.442 uIU/mL (0.300-4.200)
[2024-04-27 23:24] LABS: Cholesterol 103 mg/dL (<=200); High Density Lipoprotein 43 mg/dL; Low Density Lipoprotein Calc. 35 mg/dL; Triglycerides 129 mg/dL; Very Low Density Lipoprotein 26 mg/dL (5-40); cholesterol:hdl ratio screen 2.42
[2024-04-27] MEDS: Carvedilol 6.25 MG Tablet PO (23:27)
[2024-04-27] MEDS: 0.9% Normal Saline (1000mL) 1,000 ML 100 ML IV (23:27)
[2024-04-27] MEDS: Amitriptyline 25 MG Tablet 50 MG PO (23:27)
[2024-04-27] MEDS: Magnesium Chloride 64 MG Delay Rel.Tablet PO (23:27)
[2024-04-27] MEDS: Atorvastatin Calcium 40 MG Tablet PO (23:27)
[2024-04-27] MEDS: Gabapentin 100 MG Capsule PO (23:27)
[2024-04-27] MEDS: Enoxaparin 40 MG/0.4 ML Syringe SC (23:28)
[2024-04-27 23:53] LABS: Bedside Glucose 139 mg/dL (74-106)
[2024-04-28] VITALS (10 sets, daily range): BP systolic 99–136; BP diastolic 43–68; PULSE 93–106; RESP 15–24; TEMP 36.8–37.9; O2SAT 95–99; BMI 43.9
[2024-04-28] MEDS: metroNIDAZOLE 500 MG/100 ML BAG 100 MG IV ×3 (05:11→22:20)
[2024-04-28] MEDS: Gabapentin 100 MG Capsule PO ×3 (05:18→21:30)
[2024-04-28] MEDS: Acetaminophen 500 MG Tablet PO ×2 (05:26→21:29)
[2024-04-28] MEDS: Menthol/Lanolin/Calamine/Znox 113 GM Tube 1 APPLIC TOPICAL ×3 (05:26→21:29)
[2024-04-28] MEDS: Nystatin Powder 15gm Bottle 1 APPLIC TOPICAL ×3 (05:27→22:00)
[2024-04-28] MEDS: Magnesium Sulfate 2 GM in Dextrose 5%-Water (100mL Bag) 100 ML IV (06:44)
[2024-04-28 07:08] LABS: Bedside Glucose 139 mg/dL (74-106)
[2024-04-28] MEDS: Budesonide Respules 0.5 MG/2 ML AMPUL.NEB. INHALATION (07:08)
[2024-04-28] MEDS: Albuterol 2.5 MG/3 ML VIAL.NEB. INHALATION ×2 (07:08→19:07)
[2024-04-28 08:36] LABS: Absolute Lymphocyte Count 0.31 X10^3/uL (0.83-4.51); Eosinophil# 0.01 X10^3/uL; Eosinophils% 0.2 % (0-5); Lymphocyte # 0.31 X10^3/ul (0.83-4.51); Lymphocyte % 5.7 % (19-41); Mean Corp Hgb Conc 31.8 g/dL (32-36); Mean Corpuscular Hgb 32.3 pg (27.0-32.0); Mean Corpuscular Volume 101.4 fL (81-99); Mean Platelet Vol. 10.3 fl (6.2-12.0); Monocyte# 0.08 X10^3/uL; Monocyte% 1.5 % (0-10); NRBC Flagged by Analyzer 0 % (0-5); Neutrophil # 4.96 X10^3/uL (2.7-7.7); Neutrophil % 91.9 % (47-70); POSITIVE DIFFERENTIAL YES; Platelet Count 104 K/mm3 (150-450); RBC Distribution Width CV 14.6 % (11.6-14.6); RBC Distribution Width SD 53.5 fl (35.1-43.9); Red Blood Count 2.17 M/mm3 (4.2-5.4); White Blood Count 5.4 K/mm3 (4.4-11.0)
[2024-04-28 09:14] LABS: ALB/GLOB Ratio 1.2 RATIO (0.9-2.4); AST(SGOT) 30 U/L (<=31); Alanine Aminotransfer ALT/SGPT 26 U/L (<=34); Albumin, Serum 3.2 g/dL (3.4-4.8); Alkaline Phosphatase 57 U/L (35-104); Anion Gap 9 (5-15); BUN 19 mg/dL (4-19); BUN/Creat Ratio 19.3 RATIO (10-20); Calcium 8.4 mg/dL (7.6-11.0); Chloride 100 mmol/L (96-108); Creatinine, Serum 0.99 mg/dL (0.70-1.20); EST Glomerular Filtration Rate 59 (>60); Estimated Creatinine Clearance 67.29 ml/min; Globulin 2.6 g/dL (2.2-4.2); Glucose 142 mg/dL (70-99); Phosphorus 2.3 mg/dL (2.7-4.5); Potassium 4.3 mmol/L (3.3-5.1); Protein, Total 5.8 g/dL (5.9-8.4); Sodium Level 134 mmol/L (133-145); Total Bilirubin 0.27 mg/dL (0.00-1.30)
[2024-04-28] MEDS: Aspirin E.C. 81 MG Tablet PO (09:36)
[2024-04-28] MEDS: Enoxaparin 40 MG/0.4 ML Syringe SC (09:36)
[2024-04-28] MEDS: DULoxetine Hcl 60 MG Capsule PO (09:36)
[2024-04-28] MEDS: Ensure Plus High Protein 120 ML LIQUID PO (11:34)
--- NOTE | 2024-04-28 11:39 | CASEMGMT ---
Addendum entered by Aishwarya Bazan 04/28/24 16:04: Received notification from [employer] that cost for transport chair for a 22 inch chair is $4.27 for 10-13 months and a 30 inch chair is $21.32 per month. LEONEL CM into pt room and she was out of room at this time. Original Note: RN MYRIAM into pt room, pt lying in bed with sister at bedside. Pt A&Ox3. Pt lives with sister and niece in an apt in the basement. There are no steps to enter. Pt sister assists with all ADL/IADLs at home. Pt does sometimes go to the grocery store with sister and folds her own laundry. Pt niece is a nurse's aide who is available to assist if needed. Pt has the following DME: O2 through [employer] with portability, pox, BSC, FWW, 2 canes, grab bars in bathroom, shower chair, toilet handles and BGM with sufficient supply of strips and lancets. Pt denies hx of HHC or SNF stays. Pt denies need for HHC at home. Pt uses a walker and sister will walk with her as well. Pt would like to get oob, notified pt nurse. Pt is asking how much a transport w/c would cost. Message to [employer] to see if this answer could be obtained. Plan: Home. Pt and sister aware that should they change their mind regarding HHC to notify LEONEL MIGUEL. Follow therapy.
[2024-04-28 11:48] LABS: Bedside Glucose 149 mg/dL (74-106)
[2024-04-28 13:26] LABS: Magnesium 1.5 mg/dL (1.5-2.2)
[2024-04-28] MEDS: 0.9% Normal Saline (1000mL) 1,000 ML 100 ML IV (13:57)
--- NOTE | 2024-04-28 16:52 | CASEMGMT ---
Spoke with pts sister, Milagro, to complete RAY form. RAY form explained to Milagro who voiced understanding. Original form placed in pt?s chart and copy provided to patient. Carole Marin, Discharge Planning Asst
[2024-04-28] MEDS: Carvedilol 6.25 MG Tablet PO (17:02)
[2024-04-28 17:28] LABS: Bedside Glucose 138 mg/dL (74-106)
--- NOTE | 2024-04-28 20:30 | PN.HOSP_ITS ---
Subjective Subjective She is feeling better and she feels like her encephalopathy has resolved. Her hemoglobin is low at 7 so we will transfuse 2 units. She says that she intermittently receives outpatient transfusions Objective Data Objective Data Vital Signs: Vital Signs Temp Pulse Resp BP Pulse Ox O2 Del Method O2 Flow Rate 99.3 F H 103 H 16 118/55 L 98 Nasal Cannula 3 04/28/24 19:05 04/28/24 19:05 04/28/24 19:05 04/28/24 19:05 04/28/24 19:05 04/28/24 19:05 04/28/24 19:05 Oxygen Flow Rate (L/min) 3 Oxygen Delivery Method Nasal Cannula Weight: 290 lb 5.581 oz Body Mass Index (BMI) 43.9 Intake & Output: Intake and Output for Last 24 Hours 04/27/24 04/28/24 04/29/24 03:59 03:59 03:59 Intake Total 3300 / 3300 2087.34 / 2087.34 Output Total 300 / 300 Balance 3300 / 3300 1787.34 / 1787.34 Lab / Micro Data 04/28/24 07:41 04/28/24 07:41 Labs: Laboratory Results - last 24 hr 04/27/24 16:50: Hemoglobin A1c 6.0, Magnesium 1.2 L, Triglycerides 129, Cholesterol 103, VLDL Cholesterol 26, HDL Cholesterol 43, Cholesterol/HDL Ratio 2.42, TSH 0.442 04/27/24 23:33: POC Glucose 139 H 04/28/24 06:48: POC Glucose 139 H 04/28/24 07:41: WBC 5.4, RBC 2.17 L, Hgb 7.0 L, Hct 22.0 L, MCV 101.4 H, MCH 32.3 H, MCHC 31.8 L D, RDW Std Deviation 53.5 H, RDW Coeff of [place] 14.6, Plt Count 104 L, MPV 10.3, Immature Gran % (Auto) 0.700, Neut % (Auto) 91.9 H, Lymph % (Auto) 5.7 L, [place] % (Auto) 1.5, Eos % (Auto) 0.2, Baso % (Auto) 0.0, Absolute Neuts (auto) 5.0, Absolute Lymphs (auto) 0.31 L, Nucleated RBC % 0, Sodium 134, Potassium 4.3, Chloride Direct 100, Carbon Dioxide 24.0, Anion Gap 9, BUN 19, Creatinine 0.99, Estim Creat Clear Calc 67.29, Est GFR (MDRD) Non-Af 59 L, BUN/Creatinine Ratio 19.3, Glucose 142 H, Calcium 8.4, Phosphorus 2.3 L, Magnesium 1.5, Total Bilirubin 0.27, AST 30, ALT 26, Alkaline Phosphatase 57, T otal Protein 5.8 L, Albumin 3.2 L, Globulin 2.6, Albumin/Globulin Ratio 1.2 04/28/24 11:27: POC Glucose 149 H 04/28/24 16:56: Blood Type A NEGATIVE, Antibody Screen NEGATIVE, Crossmatch See Detail 04/28/24 17:01: POC Glucose 138 H Micro: Microbiology 04/27/24 17:30 Urine, Catheterized Urine Culture - Preliminary GNR 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 No evidence of metastatic disease in the abdomen. 2. Bilateral renal cysts Reading Location: [facility] Physical Exam Narrative General: Alert, Oriented x3, Cooperative, No apparent distress HEENT: Atraumatic, PERRLA, EOMI, Normocephalic Oral: Moist Mucosa Neck: Supple, No JVD Lungs: Diminished, Normal air movement, No rhonchi, No wheeze, No rales Cardiovascular: Tachycardic, Regular Rhythm, Normal S1, Normal S2, No murmurs Abdomen: Soft, Non Tender, Non-Distended, No Hepato-splenomegaly Extremities: No edema, Capillary Refill Less than 3 Seconds Skin: No rashes, No breakdown Musculoskeletal: No Tenderness to Palpation of Joints or Extremities Neurological: No focal neurological deficits, moves all extremities Psych/Mental Status: Normal Affect, Appropriate, fatigued Assessment & Plan Assessment/Plan (1) Adverse drug reaction: QUALIFIERS: Encounter type: initial encounter Qualified Code(s): T50.905A - Adverse effect of unspecified drugs, medicaments and biological substances, initial encounter (2) Fever: QUALIFIERS: Fever type: unspecified Qualified Code(s): R50.9 - Fever, unspecified (3) Metabolic encephalopathy: PLAN: Plan 1. Metabolic encephalopathy and fever secondary to adverse drug reaction to new chemotherapy/acute on chronic anemia ? No obvious signs of infection, she appears to have asymptomatic bacteriuria ? She did start a new chemotherapy on Wednesday and became symptomatic on ? She is on chemo for metastatic uterine cancer ? MRI of the abdomen does not demonstrate any evidence of metastatic disease, the lesion seen in the kidneys are read as bilateral renal cysts on the MRI ? Anemia is likely due to her chemotherapy, she had a hemoglobin of 7 so she was transfused 2 units recheck is pending for the morning ? Does appear that her encephalopathy has resolved 2. Essential HTN/HLD ? Blood pressures are stable ? Can resume her home blood pressure medications ? Continue with her home cholesterol medications ? Will monitor and make adjustments as necessary 3. DM2 with neuropathy/CKD 3a ? Will hold her home medications ? Continue with insulin ? Accu-Cheks ACHS ? Will monitor and make adjustments as necessary 4. Chronic hypoxic respiratory failure ? She is on her baseline of 3 L nasal cannula, she says that she is supposed to wear it continuously but on occasion her dog plays with the oxygen tubing so she goes without. 5. Anxiety/depression ? Stable ? Continue with her home medications DVT: Lovenox Charges/Coding Visit Charges Inpatient E&M: 39986 Subs Hosp L2
[2024-04-28] MEDS: Amitriptyline 25 MG Tablet 50 MG PO (21:28)
[2024-04-28] MEDS: Atorvastatin Calcium 40 MG Tablet PO (21:30)
[2024-04-28] MEDS: Ceftriaxone 1 GM/50 ML BAG IV (21:35)
[2024-04-28] MEDS: Insulin Lispro 100 UNIT/ML INSULN.PEN SC (22:32)
[2024-04-28 22:46] LABS: Bedside Glucose 177 mg/dL (74-106)
[2024-04-29] VITALS (11 sets, daily range): BP systolic 111–137; BP diastolic 57–71; PULSE 85–103; RESP 15–19; TEMP 36.5–37.8; O2SAT 94–98; BMI 43.9
[2024-04-29] MEDS: metroNIDAZOLE 500 MG/100 ML BAG 100 MG IV (05:55)
[2024-04-29] MEDS: 0.9% Saline Lock 10 ML Syringe IV ×2 (05:55→22:13)
[2024-04-29 07:12] LABS: Bedside Glucose 125 mg/dL (74-106)
[2024-04-29] MEDS: Budesonide Respules 0.5 MG/2 ML AMPUL.NEB. INHALATION (07:21)
[2024-04-29] MEDS: Albuterol 2.5 MG/3 ML VIAL.NEB. INHALATION ×2 (07:21→13:45)
[2024-04-29 07:22] LABS: Phosphorus 2.8 mg/dL (2.7-4.5)
[2024-04-29] MEDS: Carvedilol 6.25 MG Tablet PO ×2 (10:16→17:12)
[2024-04-29] MEDS: Acetaminophen 500 MG Tablet PO (10:21)
[2024-04-29] MEDS: DULoxetine Hcl 60 MG Capsule PO (10:21)
[2024-04-29] MEDS: Aspirin E.C. 81 MG Tablet PO (10:22)
[2024-04-29] MEDS: Glucerna Shake 120 ML LIQUID PO ×3 (10:22→17:12)
[2024-04-29] MEDS: Enoxaparin 40 MG/0.4 ML Syringe SC ×2 (10:22→22:27)
[2024-04-29] MEDS: Nystatin Powder 15gm Bottle 1 APPLIC TOPICAL ×2 (10:23→22:14)
[2024-04-29] MEDS: Menthol/Lanolin/Calamine/Znox 113 GM Tube 1 APPLIC TOPICAL ×2 (10:23→22:14)
[2024-04-29 10:39] LABS: Absolute Neutrophil Count 2.9 X10^3/uL (2.0-7.7); Basophil# 0.01 X10^3/uL; Basophil% 0.3 % (0-1); Eosinophil# 0.02 X10^3/uL; Eosinophils% 0.6 % (0-5); Hemoglobin 9.6 g/dL (12.0-15.0); Lymphocyte % 8.7 % (19-41); Mean Corp Hgb Conc 33.1 g/dL (32-36); Mean Corpuscular Hgb 31.8 pg (27.0-32.0); Mean Platelet Vol. 10.8 fl (6.2-12.0); Monocyte% 2.9 % (0-10); NRBC Flagged by Analyzer 0 % (0-5); Neutrophil # 2.87 X10^3/uL (2.7-7.7); Neutrophil % 82.9 % (47-70); POSITIVE DIFFERENTIAL YES; POSITIVE MORPHOLOGY YES; Platelet Count 111 K/mm3 (150-450); RBC Distribution Width CV 18.7 % (11.6-14.6); RBC Distribution Width SD 66.1 fl (35.1-43.9); Red Blood Count 3.02 M/mm3 (4.2-5.4); White Blood Count 3.5 K/mm3 (4.4-11.0)
--- NOTE | 2024-04-29 10:39 | CASEMGMT ---
LEONEL MIGUEL NOTE: [facility] $4.27/month for 10-13 months and a 30 inch chair is $21.32 per month. She prefers the 30 in chair and states this is affordable. She was made aware if she is ready to discharge home over the weekend, this would not be available over the weekend, as [facility] [place] [facility] would deliver it to her home. She states feels safe discharging home w/out the W/C until it can be delivered. Script prepared for transport chair, 30, and placed on pt's chart. Script will need signed by and faxed to [facility] [place], along w/facesheet. Green sheet placed on chart if pt qualifies for more than her baseline home O2 of 3 L/M and for transport chair. Feliz JOHNSON RN, CM
[2024-04-29 10:41] LABS: Differential Indicated SCAN CRITERIA MET
[2024-04-29 11:07] LABS: Anisocytosis 2+; Differential Comment SCANNED
[2024-04-29 11:35] LABS: Magnesium 1.9 mg/dL (1.5-2.2)
[2024-04-29 11:42] LABS: Anion Gap 15 (5-15); BUN 19 mg/dL (4-19); BUN/Creat Ratio 16.5 RATIO (10-20); Calcium 8.9 mg/dL (7.6-11.0); Carbon Dioxide 17.5 mmol/L (22.0-29.0); Chloride 101 mmol/L (96-108); Creatinine, Serum 1.14 mg/dL (0.70-1.20); EST Glomerular Filtration Rate 49 (>60); Estimated Creatinine Clearance 58.44 ml/min; Glucose 129 mg/dL (70-99); Potassium 4.6 mmol/L (3.3-5.1); Sodium Level 134 mmol/L (133-145)
--- NOTE | 2024-04-29 12:03 | PN.HOSP_ITS ---
Subjective Subjective Appears to be more confused this morning. Hemoglobin is corrected to 9.6 Objective Data Objective Data Vital Signs: Vital Signs Temp Pulse Resp BP Pulse Ox O2 Del Method O2 Flow Rate 97.7 F L 100 17 136/65 H 97 Nasal Cannula 3 04/29/24 01:32 04/29/24 07:21 04/29/24 07:21 04/29/24 01:32 04/29/24 07:21 04/29/24 07:21 04/29/24 07:21 Oxygen Flow Rate (L/min) 3 Oxygen Delivery Method Nasal Cannula Weight: 290 lb 5.581 oz Body Mass Index (BMI) 43.9 Intake & Output: Intake and Output for Last 24 Hours 04/28/24 04/29/24 04/30/24 03:59 03:59 03:59 Intake Total 3300 / 3300 3737.34 / 3737.34 100 / 100 Output Total 300 / 300 Balance 3300 / 3300 3437.34 / 3437.34 100 / 100 Lab / Micro Data 04/29/24 05:23 04/29/24 05:23 Labs: Laboratory Results - last 24 hr 04/28/24 07:41: Magnesium 1.5 04/28/24 16:56: Blood Type A NEGATIVE, Antibody Screen NEGATIVE, Crossmatch See Detail 04/28/24 17:01: POC Glucose 138 H 04/28/24 22:26: POC Glucose 177 H 04/29/24 05:23: WBC 3.5 L, RBC 3.02 L, Hgb 9.6 L, Hct 29.0 L, MCV 96.0 D, MCH 31.8, MCHC 33.1, RDW Std Deviation 66.1 H, RDW Coeff of [place] 18.7 H, Plt Count 111 L, MPV 10.8, Immature Gran % (Auto) 4.600 H, Neut % (Auto) 82.9 H, Lymph % (Auto) 8.7 L, [place] % (Auto) 2.9, Eos % (Auto) 0.6, Baso % (Auto) 0.3, Absolute Neuts (auto) 2.9, Absolute Lymphs (auto) 0.30 L, Nucleated RBC % 0, Differential Comment SCANNED, Anisocytosis 2+, Sodium 134, Potassium 4.6, Chloride Direct 101, Carbon Dioxide 17.5 L, Anion Gap 15, BUN 19, Creatinine 1.14, Estim Creat Clear Calc 58.44, Est GFR (MDRD) Non-Af 49 L, BUN/Creatinine Ratio 16.5, Glucose 129 H, Calcium 8.9, Phosphorus 2.8, Magnesium 1.9 04/29/24 06:51: POC Glucose 125 H Micro: Microbiology 04/27/24 17:30 Urine, Catheterized Urine Culture - Final Klebsiella oxytoca 04/27/24 16:50 Mucosa - Nose SARS-CoV-2, Influenza & RSV (PCR) - Final Radiography Diagnostic Testing: Radiology Impression Abdomen MRI 04/27/24 21:09 IMPRESSION: 1. No evidence of metastatic disease in the abdomen. 2. Bilateral renal cysts Reading Location: [facility] Physical Exam Narrative General: Alert, Oriented x3, Cooperative, No apparent distress, seems slower mentally HEENT: Atraumatic, PERRLA, EOMI, Normocephalic Oral: Moist Mucosa Neck: Supple, No JVD Lungs: Diminished, Normal air movement, No rhonchi, No wheeze, No rales Cardiovascular: Tachycardic, Regular Rhythm, Normal S1, Normal S2, No murmurs Abdomen: Soft, Non Tender, Non-Distended, No Hepato-splenomegaly Extremities: No edema, Capillary Refill Less than 3 Seconds Skin: No rashes, No breakdown Musculoskeletal: No Tenderness to Palpation of Joints or Extremities Neurological: No focal neurological deficits, moves all extremities Psych/Mental Status: Normal Affect, Appropriate, fatigued Assessment & Plan Assessment/Plan (1) Adverse drug reaction: QUALIFIERS: Encounter type: initial encounter Qualified Code(s): T50.905A - Adverse effect of unspecified drugs, medicaments and biological substances, initial encounter (2) Fever: QUALIFIERS: Fever type: unspecified Qualified Code(s): R50.9 - Fever, unspecified (3) Metabolic encephalopathy: PLAN: Plan 1. Metabolic encephalopathy and fever secondary to Klebsiella UTI and possible new chemotherapy/acute on chronic anemia ?Urine culture has demonstrated 100,000 CFU's of Klebsiella, continue with Rocephin but discontinue Flagyl ? She did start a new chemotherapy on Wednesday and became symptomatic on ? She is on chemo for metastatic uterine cancer ? MRI of the abdomen does not demonstrate any evidence of metastatic disease, the lesion seen in the kidneys are read as bilateral renal cysts on the MRI ? Anemia is likely due to her chemotherapy, she had a hemoglobin of 7 so she was transfused 2 units recheck and she is now 9.6 ?It appears that she is bit confused again 2. Essential HTN/HLD ? Blood pressures are stable ? Can resume her home blood pressure medications ? Continue with her home cholesterol medications ? Will monitor and make adjustments as necessary 3. DM2 with neuropathy/CKD 3a ? Will hold her home medications ? Continue with insulin ? Accu-Cheks ACHS ? Will monitor and make adjustments as necessary 4. Chronic hypoxic respiratory failure ? She is on her baseline of 3 L nasal cannula, she says that she is supposed to wear it continuously but on occasion her dog plays with the oxygen tubing so she goes without. 5. Anxiety/depression ? Stable ? Continue with her home medications DVT: Lovenox Charges/Coding Visit Charges Inpatient E&M: 47955 Subs Hosp L2
[2024-04-29] MEDS: Insulin Lispro 100 UNIT/ML INSULN.PEN SC ×3 (12:25→22:18)
[2024-04-29 12:47] LABS: Bedside Glucose 201 mg/dL (74-106)
[2024-04-29] MEDS: Gabapentin 100 MG Capsule PO ×2 (15:03→22:27)
[2024-04-29 19:23] LABS: Bedside Glucose 233 mg/dL (74-106)
[2024-04-29] MEDS: Ceftriaxone 1 GM/50 ML BAG IV (22:15)
[2024-04-29] MEDS: Amitriptyline 25 MG Tablet 50 MG PO (22:27)
[2024-04-29] MEDS: Atorvastatin Calcium 40 MG Tablet PO (22:27)
[2024-04-29 23:27] LABS: Bedside Glucose 207 mg/dL (74-106)
[2024-04-30 05:00] VITALS: BP 114/56; PULSE 87; RESP 16; TEMP 36.8; O2SAT 95
[2024-04-30] MEDS: Gabapentin 100 MG Capsule PO ×2 (05:36→13:23)
[2024-04-30 05:47] LABS: Absolute Neutrophil Count 3.1 X10^3/uL (2.0-7.7); Basophil# 0.01 X10^3/uL; Basophil% 0.3 % (0-1); Eosinophil# 0.02 X10^3/uL; Eosinophils% 0.6 % (0-5); Hematocrit 25.3 % (37-47); Hemoglobin 8.2 g/dL (12.0-15.0); Lymphocyte % 5.8 % (19-41); Mean Corp Hgb Conc 32.4 g/dL (32-36); Mean Corpuscular Hgb 31.3 pg (27.0-32.0); Mean Corpuscular Volume 96.6 fL (81-99); Mean Platelet Vol. 9.7 fl (6.2-12.0); Monocyte# 0.16 X10^3/uL; Monocyte% 4.6 % (0-10); NRBC Flagged by Analyzer 0 % (0-5); Neutrophil # 3.05 X10^3/uL (2.7-7.7); Neutrophil % 88.4 % (47-70); POSITIVE DIFFERENTIAL YES; POSITIVE MORPHOLOGY YES; Platelet Count 103 K/mm3 (150-450); RBC Distribution Width SD 63.9 fl (35.1-43.9); Red Blood Count 2.62 M/mm3 (4.2-5.4); White Blood Count 3.5 K/mm3 (4.4-11.0)
[2024-04-30 05:58] LABS: Differential Indicated SCAN CRITERIA MET
[2024-04-30 06:00] VITALS: BMI 47.2
[2024-04-30 06:15] LABS: Anion Gap 10 (5-15); BUN 24 mg/dL (4-19); BUN/Creat Ratio 17.1 RATIO (10-20); Calcium 9.2 mg/dL (7.6-11.0); Carbon Dioxide 22.9 mmol/L (22.0-29.0); Chloride 98 mmol/L (96-108); EST Glomerular Filtration Rate 39 (>60); Estimated Creatinine Clearance 47.59 ml/min (50-250); Glucose 158 mg/dL (70-99); Potassium 4.6 mmol/L (3.3-5.1); Sodium Level 131 mmol/L (133-145)
[2024-04-30 06:50] LABS: Differential Comment SCANNED
[2024-04-30 07:06] VITALS: PULSE 92; RESP 16; O2SAT 95
[2024-04-30] MEDS: Albuterol 2.5 MG/3 ML VIAL.NEB. INHALATION ×2 (07:06→13:27)
[2024-04-30] MEDS: Budesonide Respules 0.5 MG/2 ML AMPUL.NEB. INHALATION (07:06)
[2024-04-30 07:10] LABS: Bedside Glucose 156 mg/dL (74-106)
[2024-04-30] MEDS: Menthol/Lanolin/Calamine/Znox 113 GM Tube 1 APPLIC TOPICAL (09:01)
[2024-04-30] MEDS: Glucerna Shake 120 ML LIQUID PO ×2 (09:01→11:49)
[2024-04-30] MEDS: Aspirin E.C. 81 MG Tablet PO (09:01)
[2024-04-30] MEDS: Nystatin Powder 15gm Bottle 1 APPLIC TOPICAL (09:02)
[2024-04-30] MEDS: DULoxetine Hcl 60 MG Capsule PO (09:03)
[2024-04-30] MEDS: Enoxaparin 40 MG/0.4 ML Syringe SC (09:03)
[2024-04-30] MEDS: Insulin Lispro 100 UNIT/ML INSULN.PEN SC (11:42)
[2024-04-30 11:49] LABS: Bedside Glucose 185 mg/dL (74-106)
[2024-04-30] MEDS: 0.9% Normal Saline (1000mL) 1,000 ML 125 ML IV (11:49)
--- NOTE | 2024-04-30 13:12 | DCINST_ITS ---
Discharge Instructions Diet Discharge Diet: No restrictions DC O2, CPAP, BIPAP needs Home O2 Discharge instructions: No Dressing / Incision Discharge Activity: Return to Normal Activity Dressing / Incision Call your doctor if you observe: Fever of 101 or Higher, Shortness of breath, Dizziness, Fainting spells, Swelling in the ankles, Chest pain and Increased palpitations (irregular heartbeat) Follow Up Care Test Results: Test results from this visit will be discussed in further detail at your follow- up appointment, if applicable. Discharge Plan Admission Admit Date/Time: 04/28/24 16:24 Attending Provider: Eddie Vera Primary Care Provider: Deven Van Consulting Providers: Eduardo Villegas Instructions Additional Instructions / Restrictions: Follow-up with your primary care doctor and your oncologist to evaluate your hemoglobin and follow-up for any possible outpatient transfusions Discharge Orders/Prescriptions Prescriptions: New cefdinir 300 mg capsule 300 mg PO BID Qty: 10 0RF Continued amitriptyline 50 mg tablet 50 mg PO QHS gabapentin 100 mg capsule 100 mg PO TID Patient Comments: PT STATES ONLY TAKES ONE CAPSULE TWICE A DAY ( OF 04/27/24) Trulicity 3 mg/0.5 mL pen injector 3 mg subcut TU atorvastatin 40 mg tablet 40 mg PO QHS Slow-Mag 71.5 mg tablet,delayed release (DR/EC) 71.5 mg PO BID ondansetron HCl 8 mg tablet 8 mg PO Q12H PRN (Reason: NAUSEA ) silver sulfadiazine 1 % cream 1 applic topical DAILY PRN (Reason: BURN) Rx Instructions: APPLY ONE APPLICATION ONCE DAILY NEEDED TO HAND glimepiride 4 mg tablet 4 mg PO BID acetaminophen [Acetaminophen Extra Strength] 500 mg tablet 500 mg PO Q6H PRN (Reason: PAIN ) aspirin [Adult Low Dose Aspirin] 81 mg tablet,delayed release (DR/EC) 81 mg PO DAILY carvedilol 3.125 mg tablet 6.25 mg PO BID fluticasone furoate-vilanterol 100-25 mcg/dose blister with device 1 inh INHALATION Q24H Patient Comments: [NO ORIGINAL SIG] duloxetine 60 mg capsule,delayed release(DR/EC) 60 mg PO DAILY metformin 500 MG tablet 1,000 mg PO BID Referrals / Follow Up: Deven Van MD [Primary Care Provider] - Within 1 Week Noel Hernandes DO [Med Staff - Active Staff] - Within 1 Week Disposition Disposition (needs filled in before D/C Order can be placed): Home, Self Care
--- NOTE | 2024-04-30 14:06 | PCM.DC.SUM ---
Providers Date of Admission: 04/28/24 Primary Care Physician: Dr. Deven Van MD Reason For Visit: FEVER AND AMS WITH METASTATIC ENDOMETRIAL Diagnosis Discharge Diagnosis (1) Adverse drug reaction: Status: Acute Code(s): T50.905A - Adverse effect of unspecified drugs, medicaments and biological substances, initial encounter Qualifiers: Encounter type: initial encounter Qualified Code(s): T50.905A - Adverse effect of unspecified drugs, medicaments and biological substances, initial encounter (2) Fever: Status: Acute Code(s): R50.9 - Fever, unspecified Qualifiers: Fever type: unspecified Qualified Code(s): R50.9 - Fever, unspecified (3) Metabolic encephalopathy: Status: Acute Code(s): G93.41 - Metabolic encephalopathy Medications at Discharge Home Medications amitriptyline 50 mg tablet 50 mg PO QHS DEPRESSION 12/23/22 atorvastatin 40 mg tablet 40 mg PO QHS CHOLESTEROL 12/23/22 dulaglutide 3 mg/0.5 mL subcutaneous pen injector (Trulicity) 3 mg subcut TU DIABETES 12/23/22 gabapentin 100 mg capsule 100 mg PO TID NERVE PAIN 12/23/22 magnesium chloride 71.5 mg (magnesium chloride) tablet,delayed release (Slow-Mag) 71.5 mg PO BID SUPPLEMENT 12/29/22 ondansetron HCl 8 mg tablet 8 mg PO Q12H PRN NAUSEA 12/29/22 aspirin 81 mg tablet,delayed release (Adult Low Dose Aspirin) 81 mg PO DAILY HEART HEALTH 01/24/23 acetaminophen 500 mg tablet (Acetaminophen Extra Strength) 500 mg PO Q6H PRN PAIN 03/10/23 glimepiride 4 mg tablet 4 mg PO BID DIABETES 03/10/23 silver sulfadiazine 1 % topical cream 1 applic topical DAILY PRN BURN 03/10/23 carvedilol 3.125 mg tablet 6.25 mg PO BID 12/17/23 duloxetine 60 mg capsule,delayed release 60 mg PO DAILY 04/27/24 fluticasone furoate 100 mcg-vilanterol 25 mcg/dose inhalation powder 1 inh inhalation Q24H 04/27/24 metformin 500 mg tablet 1,000 mg PO BID DIABETES 04/27/24 cefdinir 300 mg capsule 300 mg PO BID #10 caps 04/30/24 Hospital Course Operations None Procedures None Summary of Care Provided Minutes Spent on Discharge: 33 Hospital Course: Per HPI: PRICILA HOOKER, is a 78 F with a past medical history of essential hypertension; on carvedilol, hyperlipidemia; on atorvastatin, morbid obesity; with BMI of 45.3 this admission, former tobacco abuse (quit 1967), DM-2; of unknown control on dulaglutide, glimepiride and metformin, history of diabetic neuropathy; on gabapentin 3 times daily, history of CAD; on baby aspirin daily, history of nonischemic cardiomyopathy, CKD; stage IIIa, history of asthma; on fluticasone furoate-vilanterol, chronic hypoxic respiratory failure on 3L NC (nocturnal), depression; on duloxetine and amitriptyline, history of cataract surgery, history of cholecystitis; s/p laparoscopic cholecystectomy, history of GERD; currently not on treatment, OA; with history of bilateral TKR's and history of metastatic endometrial cancer; s/p total hysterectomy on chemotherapy with history of pancytopenia followed by Dr. Hernandes of oncology who presents to [facility] ER complaining of fever and confusion. Ms. Hooker is not a fully-reliable historian at this time so information was gathered from chart, medical staff and computer. The patient's family informed the ER physician that she was noted to be confused at home earlier today with patient asking her sister to take her socks off - even though she did not have any socks on at that time. The family also reported that she had new chemotherapy 2 days ago with patient apparently having difficulty tolerating her new regimen after she has been taken off her old chemotherapy regimen because it was not working and was causing adverse side effects. The family then called Dr. Hernandes's office and they were instructed to bring her into the ER for further evaluation and treatment. Though the patient is a limited historian she admits to intermittent nausea with vomiting causing bilious emesis. She denies associated chills, headaches, visual changes, chest pain, shortness of breath, cough, dysuria, hematuria, abdominal pain, diarrhea, constipation or rash. In the ER she was noted to have a fever of 103.1 ?F along with Tachycardia of 111 bpm and Uncontrolled Hypertension of 183/85 mmHg present on admission likely due to Adverse Drug Reaction to Chemotherapy suspected to be causing Fever with Metabolic Encephalopathy with CT scan of the abdomen pelvis done in ER revealing no obstruction or acute inflammatory process with Left-sided omental nodularity with mild thickening of the Left pericolic gutter fascial plane and at least ~1 small nodule within the pelvis with findings concerning for Metastatic Disease along with subtle apparent enhancing lesion in the anterior pole of the Left kidney as above with recommend further assessment with contrast-enhanced MRI in addition to trace bilateral pleural effusions and subtle nodular contour of the liver. Her UA was positive for evidence of colonization but not acute infection with patient started on empiric ceftriaxone IV in the ER along with IV metronidazole in case patient's metastatic disease to the Left pericolic gutter fascial plane is a source of her infection, which is doubtful as she denies abdominal pain or other GI symptoms at this time. She was then admitted to the general medical floor under observation status for ongoing care for stay that is expected to be less than 2 midnights. Hospital Course: 1. Metabolic encephalopathy and fever secondary to Klebsiella UTI and possible new chemotherapy/acute on chronic anemia ?Urine culture has demonstrated 100,000 CFU's of Klebsiella, continue with Rocephin but discontinue Flagyl ? She did start a new chemotherapy on Wednesday and became symptomatic on ? She is on chemo for metastatic uterine cancer ? MRI of the abdomen does not demonstrate any evidence of metastatic disease, the lesion seen in the kidneys are read as bilateral renal cysts on the MRI ? Anemia is likely due to her chemotherapy, she had a hemoglobin of 7 so she was transfused 2 units recheck and she is now 9.6 04/30/2024: Urine culture with 100,000 CFU of Klebsiella, will continue with cefdinir 300 mg p.o. twice daily starting tomorrow for 5 more days given her immunocompromise status. She remains anemic, I think the 9.6 that she had the day after 2 units of packed red blood cells was a bit of an overcorrection. Today her hemoglobin is 8.2. She has an appointment with oncology on Wednesday and will benefit from likely repeat transfusion or another medication to keep her counts up. I discussed with the sister and she states that she has not seen any dark stools at home and nursing has not noted any dark stools while here in the hospital. Since she started chemotherapy in 2022 she has been anemic. I discussed the possibility for discharge today versus staying a couple more days and they expressed understanding of the risks and benefits of going home and would like to go home today. The concern with keeping her longer is the potential need for long term placement if she continues to get any weaker which the family would like to avoid at this time. Does appear that her metabolic encephalopathy is much improved if not resolved. 2. Essential HTN/HLD ? Blood pressures are stable ? Can resume her home blood pressure medications ? Continue with her home cholesterol medications ? Will monitor and make adjustments as necessary 3. DM2 with neuropathy/CKD 3a ? Will hold her home medications ? Continue with insulin ? Accu-Cheks ACHS ? Will monitor and make adjustments as necessary 4. Chronic hypoxic respiratory failure ? She is on her baseline of 3 L nasal cannula, she says that she is supposed to wear it continuously 5. Anxiety/depression ? Stable ? Continue with her home medications Physical Exam Narrative General: Alert, Oriented x3, Cooperative, No apparent distress, seems slower mentally HEENT: Atraumatic, PERRLA, EOMI, Normocephalic Oral: Moist Mucosa Neck: Supple, No JVD Lungs: Diminished, Normal air movement, No rhonchi, No wheeze, No rales Cardiovascular: Tachycardic, Regular Rhythm, Normal S1, Normal S2, No murmurs Abdomen: Soft, Non Tender, Non-Distended, No Hepato-splenomegaly Extremities: No edema, Capillary Refill Less than 3 Seconds Skin: No rashes, No breakdown Musculoskeletal: No Tenderness to Palpation of Joints or Extremities Neurological: No focal neurological deficits, moves all extremities Psych/Mental Status: Normal Affect, Appropriate, fatigued Weight / BMI Weight Weight: 311 lb 4.683 oz Body Mass Index (BMI) 47.2 ABG / Lab / Microbiology Data 04/30/24 05:31 04/30/24 05:31 Laboratory: Laboratory Results - last 24 hr 04/29/24 17:09: POC Glucose 233 H 04/29/24 22:17: POC Glucose 207 H 04/30/24 05:31: WBC 3.5 L, RBC 2.62 L, Hgb 8.2 L, Hct 25.3 L, MCV 96.6, MCH 31.3, MCHC 32.4, RDW Std Deviation 63.9 H, RDW Coeff of Casper 18.0 H, Plt Count 103 L, MPV 9.7, Immature Gran % (Auto) 0.300, Neut % (Auto) 88.4 H, Lymph % (Auto) 5.8 L, Wilson % (Auto) 4.6, Eos % (Auto) 0.6, Baso % (Auto) 0.3, Absolute Neuts (auto) 3.1, Absolute Lymphs (auto) 0.20 L, Nucleated RBC % 0, Differential Comment SCANNED, Sodium 131 L, Potassium 4.6, Chloride Direct 98, Carbon Dioxide 22.9, Anion Gap 10, BUN 24 H, Creatinine 1.40 H, Estim Creat Clear Calc 47.59 L, Est GFR (MDRD) Non-Af 39 L, BUN/Creatinine Ratio 17.1, Glucose 158 H, Calcium 9.2 04/30/24 05:44: POC Glucose 156 H 04/30/24 11:11: POC Glucose 185 H Microbiology: Microbiology 04/27/24 16:50 Blood Culture (Wb) - Left Forearm Blood Culture - Preliminary No growth in 48 hours. 04/27/24 16:50 Blood Culture (Wb) - Port Blood Culture - Preliminary No growth in 48 hours. 04/27/24 17:30 Urine, Catheterized Urine Culture - Final Klebsiella oxytoca 04/27/24 16:50 Mucosa - Nose SARS-CoV-2, Influenza & RSV (PCR) - Final D/C Instructions Discharge Diet: No restrictions Call your doctor if you observe: Fever of 101 or Higher, Shortness of breath, Dizziness, Fainting spells, Swelling in the ankles, Chest pain and Increased palpitations (irregular heartbeat) DC O2, CPAP, BIPAP Needs Home O2 Discharge instructions: No Meaningful Use Info Meaningful Use Meaningful Use Diagnoses (Choose all that apply): None applicable Ischemic Stroke Statin Dosing Therapy Reference: STATIN DOSE THERAPY REFERENCE: * Patients > 75 years receive moderate or high dose statin therapy. * Patients 75 years or YOUNGER should receive HIGH intensity statin dose unless contraindicated. You will be required to document reason for non-treatment if statin daily dose does not meet guidelines. HIGH DOSE STATIN THERAPY DAILY Atorvastatin > than or = to 40 mg Rosuvastatin > than or = to 20 mg Amlodipine + Atorvastatin > than or = to 2.5/40 mg Ezetimibe + Simvastatin 10/80 mg Simvastatin 80mg Discharge Plan Admission Admit Date/Time: 04/28/24 16:24 Attending Provider: Eddie Vera Primary Care Provider: Deven Van Consulting Providers: de Mihir,Eduardo Instructions Additional Instructions / Restrictions: Follow-up with your primary care doctor and your oncologist to evaluate your hemoglobin and follow-up for any possible outpatient transfusions Discharge Orders/Prescriptions Prescriptions: New cefdinir 300 mg capsule 300 mg PO BID Qty: 10 0RF Continued amitriptyline 50 mg tablet 50 mg PO QHS gabapentin 100 mg capsule 100 mg PO TID Patient Comments: PT STATES ONLY TAKES ONE CAPSULE TWICE A DAY ( OF 04/27/24) Trulicity 3 mg/0.5 mL pen injector 3 mg subcut TU atorvastatin 40 mg tablet 40 mg PO QHS Slow-Mag 71.5 mg tablet,delayed release (DR/EC) 71.5 mg PO BID ondansetron HCl 8 mg tablet 8 mg PO Q12H PRN (Reason: NAUSEA ) silver sulfadiazine 1 % cream 1 applic topical DAILY PRN (Reason: BURN) Rx Instructions: APPLY ONE APPLICATION ONCE DAILY NEEDED TO HAND glimepiride 4 mg tablet 4 mg PO BID acetaminophen [Acetaminophen Extra Strength] 500 mg tablet 500 mg PO Q6H PRN (Reason: PAIN ) aspirin [Adult Low Dose Aspirin] 81 mg tablet,delayed release (DR/EC) 81 mg PO DAILY carvedilol 3.125 mg tablet 6.25 mg PO BID fluticasone furoate-vilanterol 100-25 mcg/dose blister with device 1 inh INHALATION Q24H Patient Comments: [NO ORIGINAL SIG] duloxetine 60 mg capsule,delayed release(DR/EC) 60 mg PO DAILY metformin 500 MG tablet 1,000 mg PO BID Referrals / Follow Up: Deven Van MD [Primary Care Provider] - Within 1 Week Noel Hernandes DO [Med Staff - Active Staff] - Within 1 Week Disposition Disposition (needs filled in before D/C Order can be placed): Home, Self Care Charges/Coding Visit Charges Inpatient E&M: 39935 Disch Hosp >30min
[2024-04-30 14:56] VITALS: BP 112/60; PULSE 82; RESP 12; TEMP 36.5; O2SAT 100
== END 2024-04-30 16:17 | disposition home or self-care (01) | DRG 689 ==
LOC: ED 20:24 → MS3 21:30
PROVIDERS: Admitting Provider Internal Medicine; Emergency Provider Emergency Medicine; PCP Family Medicine; Referring Provider Emergency Medicine; Visit Provider Family Medicine
DX: N39.0 Urinary tract infection, site not specified (principal); G93.41 Metabolic encephalopathy; J96.11 Chronic respiratory failure with hypoxia; C79.9 Secondary malignant neoplasm of unspecified site; Z68.42 Body mass index [BMI] 45.0-49.9, adult; C54.1 Malignant neoplasm of endometrium; D64.81 Anemia due to antineoplastic chemotherapy; B96.1 Klebsiella pneumoniae [K. pneumoniae] as the cause of diseases classified elsewhere; E11.22 Type 2 diabetes mellitus with diabetic chronic kidney disease; N18.31 Chronic kidney disease, stage 3a; I12.9 Hypertensive chronic kidney disease with stage 1 through stage 4 chronic kidney disease, or unspecified chronic kidney disease; F32.A Depression, unspecified; J45.909 Unspecified asthma, uncomplicated; I25.10 Atherosclerotic heart disease of native coronary artery without angina pectoris; E78.00 Pure hypercholesterolemia, unspecified; F41.9 Anxiety disorder, unspecified; M19.90 Unspecified osteoarthritis, unspecified site; E83.42 Hypomagnesemia; E66.01 Morbid (severe) obesity due to excess calories; E11.40 Type 2 diabetes mellitus with diabetic neuropathy, unspecified; T45.1X5A Adverse effect of antineoplastic and immunosuppressive drugs, initial encounter; Z87.891 Personal history of nicotine dependence; Z79.85 Long-term (current) use of injectable non-insulin antidiabetic drugs; Z79.84 Long term (current) use of oral hypoglycemic drugs; Z79.82 Long term (current) use of aspirin; Z79.899 Other long term (current) drug therapy
CPT/HCPCS: 36415; 70450; 71046; 74177; 74183; 80048; 80053; 80061; 81001; 82962; 83036; 83605; 83735; 84100; 84443; 85025; 85610; 85730; 86850; 86900; 86901; 86920; 86922; 87040; 87077; 87086; 87088; 87186; 87631; 93005; 94640; 94668; 97110; 97162; 97166; 97530; 97802; 99285; P9016; P9612; Q9967; A4216; J2405

== ENCOUNTER 2024-12-27 09:48 | Observation (INO) | payer MEDICARE, SELFPAY ==
[2024-12-27] VITALS (14 sets, daily range): BP systolic 110–145; BP diastolic 68–87; PULSE 72–92; RESP 12–20; TEMP 36.3–37; O2SAT 90–100; BMI 48.2; BMI 47.3
--- NOTE | 2024-12-27 09:52 | RAD_ITS ---
PROCEDURE: CHEST 1 VIEW (PORTABLE) 12/27/2024 REASON FOR EXAM: WEAKNESS TECHNIQUE: Frontal view of the chest. COMPARISON: Prior study dated April 27, 2024. FINDINGS: Hardware: EKG electrodes are seen. A left-sided port a catheter is seen with the tip in the right atrium. Heart: Heart size is mildly enlarged. Calcification of the aortic arch. Lungs: Increased markings at the lung bases suggestive of atelectasis. I suspect a 1.8 cm nodule in the medial aspect of the right middle lobe. Stable elevation of the right hemidiaphragm. Stable blunting of the left costophrenic angle. Bones: Degenerative changes are identified within the thoracic spine. RAD/Chest 1 View (Portable) IMPRESSION: Increased markings at the lung bases suggestive of bibasilar atelectasis. Questionable 1.8 cm nodule in the medial aspect of the right middle lobe. Reading Location: [facility]
--- NOTE | 2024-12-27 09:54 | EKG12_ITS ---
Test Reason : Blood Pressure : */* mmHG Vent. Rate : 77 BPM Atrial Rate : 77 BPM P-R Int : 184 ms QRS Dur : 100 ms QT Int : 380 ms P-R-T Axes : 37 -37 6 degrees QTcB Int : 430 ms Normal sinus rhythm Left axis deviation Low voltage QRS Abnormal ECG Confirmed by NATI RICE, SELIN ([id number]), editor managing newspaper HOOD BRUNNER ([id number]) on 12/29/2024 7:10:00 AM Referred By: BB Confirmed By: SELIN DAMIAN MD
--- NOTE | 2024-12-27 09:55 | EX.ED.DYSGE1 ---
HPI History of Present Illness Chief Complaint: Hypoglycemia Informant: patient and EMS Narrative Narrative: Patient is a 79-year-old female with a history of DM and endometrial cancer, presenting to the ED via EMS for decreased level of consciousness. - Patient was found by family this morning, reportedly unresponsive. - Patient reports feeling very weak and lightheaded upon getting up. - EMS was called; initial blood glucose was in the 30s. - EMS report: Patient was hypoxic but breathing; initially bagged, then placed on a non-rebreather mask to improve oxygenation. - Patient is on 2 L of supplemental oxygen at home. - IV D10 was administered by EMS; blood glucose last checked by EMS was in the 180s. - Patient reportedly regained consciousness quickly after D10 administration. - Currently denies any complaints, stating she feels okay. - Denies recent illness, dysuria, dyspnea, cough, emesis, diarrhea, abdominal pain, or chest pain. - Has not taken medications or eaten this morning; medications include morphine. - Last took oral hypoglycemic medication last night. - Reports feeling at baseline yesterday with no symptoms of illness. - Chronic lower extremity edema, reportedly unchanged. [facility] Medical History Hypomagnesemia Former smoker Endometrial cancer, FIGO stage IIIC Pancytopenia History of cancer of uterus Obesity Dyslipidemia Coronary artery disease Nonischemic cardiomyopathy CKD (chronic kidney disease) stage 3, GFR 30-59 ml/min Endometrial cancer GERD (gastroesophageal reflux disease) Benign neoplasm of colon Cholecystitis Hypercholesteremia Neuropathy Diabetes Hypertension Chest pain Home Medications ?Medication ?Instructions ?Recorded ?Last Taken ?Type amitriptyline 50 mg tablet 50 mg PO QHS DEPRESSION 12/23/22 03/09/23 History atorvastatin 40 mg tablet 40 mg PO QHS CHOLESTEROL 12/23/22 03/09/23 History dulaglutide 3 mg/0.5 mL 3 mg subcut TU DIABETES 12/23/22 03/09/23 History subcutaneous pen injector (Trulicity) gabapentin 100 mg capsule 100 mg PO TID NERVE PAIN 12/23/22 03/10/23 History magnesium chloride 71.5 mg 71.5 mg PO BID SUPPLEMENT 12/29/22 03/10/23 History (magnesium chloride) tablet,delayed release (Slow-Mag) ondansetron HCl 8 mg tablet 8 mg PO Q12H PRN NAUSEA 12/29/22 Unknown History aspirin 81 mg tablet,delayed 81 mg PO DAILY HEART HEALTH 01/24/23 03/10/23 History release (Adult Low Dose Aspirin) acetaminophen 500 mg tablet 500 mg PO Q6H PRN PAIN 03/10/23 Unknown History (Acetaminophen Extra Strength) glimepiride 4 mg tablet 4 mg PO BID DIABETES 03/10/23 03/10/23 History silver sulfadiazine 1 % topical 1 applic topical DAILY PRN BURN 03/10/23 03/10/23 History cream carvedilol 3.125 mg tablet 6.25 mg PO BID 12/17/23 Unknown History duloxetine 60 mg capsule,delayed 60 mg PO DAILY 04/27/24 Unknown History release fluticasone furoate 100 1 inh inhalation Q24H 04/27/24 Unknown History mcg-vilanterol 25 mcg/dose inhalation powder metformin 500 mg tablet 1,000 mg PO BID DIABETES 04/27/24 Unknown History cefdinir 300 mg capsule 300 mg PO BID #10 caps 04/30/24 Unknown Rx Allergy/AdvReac Type Severity Reaction Status Date / Time No Known Allergies Allergy Verified 04/27/24 16:18 Family History Father Myocardial infarction Mother Heart disease irregular heart rate Colon cancer Surgical History History of cholecystectomy Hx of hysterectomy, total Hx laparoscopic cholecystectomy Hx of cataract surgery History of total left knee replacement (TKR) (~01/2011) History of total right knee replacement (TKR) (~05/11/11) Social History household members: none Smoking Status: Former smoker how long ago did patient quit smokin alcohol intake: never substance use type: does not use ROS ROS ED Constitutional Constitutional ED: Reports fatigue; Denies chills or fever(s) Eyes Eyes: Denies change in vision or diplopia ENT ENT ED: Denies rhinorrhea or sore throat Cardiovascular Cardiovascular: Reports leg edema; Denies chest pain or palpitations Respiratory/Chest Respiratory/Chest: Denies cough or dyspnea Gastrointestinal Gastrointestinal: Denies abdominal pain, diarrhea, nausea or vomiting Genitourinary Genitourinary ED: Denies dysuria or hematuria Musculoskeletal Musculoskeletal: Denies back pain or neck pain Integumentary Denies abscess or rash Neurologic Neurologic: Denies headache(s), paresthesias or weakness Psychiatric Psychiatric: Denies anxiety or suicidal thoughts EXAM Physical Exam Const Vital Signs: 12/27/24 09:50 12/27/24 10:49 12/27/24 11:00 Temperature 97.4 F L Temperature Source Oral Pulse Rate 81 72 74 Respiratory Rate 14 16 16 Blood Pressure 115/70 110/81 H 110/71 Blood Pressure Mean 85 90 84 Pulse Ox 91 100 100 Oxygen Delivery Method Nasal Cannula Nasal Cannula Nasal Cannula Oxygen Flow Rate (L/min) 2 2 12/27/24 12:00 12/27/24 13:00 Temperature Temperature Source Pulse Rate 80 80 Respiratory Rate 16 12 Blood Pressure 121/84 H 126/80 H Blood Pressure Mean 96 95 Pulse Ox 96 97 Oxygen Delivery Method Nasal Cannula Nasal Cannula Oxygen Flow Rate (L/min) 2 2 Positive well nourished, well developed and obese Constitutional Narrative: alert, answers Q's appropriately General Appearance ED: well developed and NAD Nutritional Appearance: obese HEENT Reports moist mucous membranes normocephalic and atraumatic Eyes PERRL and EOMs intact bilaterally Neck full ROM, no lymphadenopathy and supple Resp normal respiratory effort and clear to auscultation bilaterally Cardio regular rate, regular rhythm and no murmurs GI non-tender and non-distended Auscultation: normoactive bowel sounds Palpation: soft Back/Spine no CVA tenderness General Back: other FROM Extremity normal to inspection General Extremety ED: Yes edema; Negative for pulses abnormal or tenderness General Extremity: edema bilateral lower extremity Details: mild; Negative for pulses abnormal Neuro oriented x3 and CN's II-XII intact bilaterally Neuro Narrative: Mild symmetric bilateral lower extremity decree sensation but sensation is grossly intact. Normal in upper extremities and face. Sensorium / Orientation: awake and alert Motor Exam: general weakness Psych mental status grossly normal Skin no rashes or lesions noted and no wounds MDM MDM MDM Narrative Medical decision making narrative: Assessment: The patient is a 79-year-old female with PMH of endometrial cancer and type 2 diabetes mellitus presenting for decreased level of consciousness and recurrent profound hypoglycemia. EMS recorded glucose in the 30s, transient hypoxia requiring bagging and NRB; she improved after D10. In the ED she again dropped to the 30s, responded to repeat D10. Labs reveal mild JACY and hyperkalemia (K 5.4 ? 5.5) without EKG evidence of hyperkalemic changes; troponin surendra from 36 to 42 yet EKG shows no acute ischemia. UA shows bacteriuria without pyuria; chest x-ray shows no acute pneumonia, radiologist notes possible right middle-lobe nodule. Given recurrent hypoglycemia, JACY with rising potassium, mild troponin bump, and transient hypoxemia, admission is warranted for further monitoring and management. Plan: - D10 IV administered twice for hypoglycemia. - IV crystalloid bolus given for JACY and hyperkalemia. Will add a dose of Kayexalate orally. - Supplemental oxygen provided as needed for hypoxemia. - Discussed case with hospitalist; patient accepted for inpatient admission for glucose stabilization, renal function monitoring, and electrolyte management. Diagnostics: - Labs: glucose 30s improving to 180s post-D10; creatinine elevated (mild JACY); potassium 5.4 ? 5.5; troponin 36 ? 42. - EKG: no significant hyperkalemic changes, no acute ischemia. - UA: bacteriuria, no pyuria. - Chest x-ray (1-view): no acute pneumonia; possible right middle-lobe nodule; radiologist concurs. Consultations: - Hospitalist service ? discussed patient?s presentation and lab trends; accepted for admission. Reevaluations: - After repeat D10 patient awake, alert, asymptomatic; repeat glucose in 180s; remains hemodynamically stable. Lab Data Attestation: I reviewed the patient's lab results. Labs: Laboratory Results - last 24 hr 12/27/24 12/27/24 12/27/24 09:59 10:15 10:45 WBC 8.9 RBC 3.61 L Hgb 10.8 L Hct 33.8 L MCV 93.6 MCH 29.9 MCHC 32.0 RDW Std Deviation 52.3 H RDW Coeff of Casper 15.2 H Plt Count 159 MPV 9.4 Immature Gran % (Auto) 0.500 Neut % (Auto) 76.3 H Lymph % (Auto) 8.6 L Howard % (Auto) 10.3 H Eos % (Auto) 4.1 Baso % (Auto) 0.2 Absolute Neuts (auto) 6.8 Absolute Lymphs (auto) 0.76 L Nucleated RBC % 0 Sodium 134 Potassium 5.4 H Chloride 99 Carbon Dioxide 25.1 Anion Gap 9 BUN 29 H Creatinine 1.44 H Estim Creat Clear Calc 47.93 L Est GFR (MDRD) Non-Af 37 L BUN/Creatinine Ratio 20.0 Glucose 95 Calcium 9.1 Troponin T High Sens 36 H Troponin T Hi Sens 2 Hr Urine Color Yellow Urine Clarity Sl. Cloudy Urine pH 5.0 Ur Specific Friend 1.015 Urine Protein 30 H Urine Glucose (UA) Normal Urine Ketones Negative Urine Occult Blood Negative Urine Nitrite Negative Urine Bilirubin Negative Urine Urobilinogen Normal Ur Leukocyte Esterase 25 H Urine RBC 0 SEEN Urine WBC 0-5 SEEN Ur Squamous Epith Cells 0-5 SEEN Amorphous Sediment 2+ Urine Bacteria 2+ Urine Mucus 0 SEEN POC Glucose 98 12/27/24 12/27/24 12:00 12:54 WBC RBC Hgb Hct MCV MCH MCHC RDW Std Deviation RDW Coeff of Casper Plt Count MPV Immature Gran % (Auto) Neut % (Auto) Lymph % (Auto) Howard % (Auto) Eos % (Auto) Baso % (Auto) Absolute Neuts (auto) Absolute Lymphs (auto) Nucleated RBC % Sodium Potassium Cancelled 5.5 H Chloride Carbon Dioxide Anion Gap BUN Creatinine Estim Creat Clear Calc Est GFR (MDRD) Non-Af BUN/Creatinine Ratio Glucose Calcium Troponin T High Sens Troponin T Hi Sens 2 Hr 42 H Urine Color Urine Clarity Urine pH Ur Specific Friend Urine Protein Urine Glucose (UA) Urine Ketones Urine Occult Blood Urine Nitrite Urine Bilirubin Urine Urobilinogen Ur Leukocyte Esterase Urine RBC Urine WBC Ur Squamous Epith Cells Amorphous Sediment Urine Bacteria Urine Mucus POC Glucose ABG Data ABG results: ABG 12/27/24 10:02 Specimen Type KEN Sample Site Not entered VBG pH 7.33 VBG pO2 40 VBG HCO3 24 VBG Total CO2 25 VBG O2 Sat (Calc) 71 H VBG Base Excess -2 L POC Mix VBG pCO2 Pt Tmp 45.4 O2 Delivery Device Not entered Radiography Diagnostic Testing: Clinical Impression(s) from Imaging Studies Chest X-Ray 12/27/24 09:52 IMPRESSION: Increased markings at the lung bases suggestive of bibasilar atelectasis. Questionable 1.8 cm nodule in the medial aspect of the right middle lobe. Reading Location: [facility] Rhythm Strip Rhythm Strip: Sinus Rhythm Rate: 80 Ectopy: None EKG Initial EKG: Attestation: I personally reviewed and interpreted this EKG as follows: Interpretation: Sinus Rhythm and No Acute Injury Pattern Management Discussion w/another healthcare provider: Hospitalist Discharge Plan Dx/Rx/DC Orders Clinical Impression: Recurrent severe hypoglycemia, JACY (acute kidney injury), Acute hyperkalemia, CKD (chronic kidney disease) stage 3, GFR 30-59 ml/min, Type 2 diabetes mellitus Disposition Disposition: Acute Care Hospital [facility]
[2024-12-27 10:06] LABS: SITE Not entered; VBG BASE EXCESS -2 mmol/L (-1.0-3.5); VBG PO2 40 mmHg (25-40); VBG SO2 71 % (50-70); VBG TCO2 25 mmol/L (23-33)
[2024-12-27 10:26] LABS: Hematocrit 33.8 % (37-47); Hemoglobin 10.8 g/dL (12.0-15.0); Immature Granulocytes Count 0.040 X10^3/uL (0.0-0.0); Mean Corp Hgb Conc 32.0 g/dL (32-36); Mean Corpuscular Volume 93.6 fL (81-99); Mean Platelet Vol. 9.4 fl (6.2-12.0); NRBC Flagged by Analyzer 0 % (0-5); Platelet Count 159 K/mm3 (150-450); RBC Distribution Width CV 15.2 % (11.6-14.6); RBC Distribution Width SD 52.3 fl (35.1-43.9); Red Blood Count 3.61 M/mm3 (4.2-5.4); White Blood Count 8.9 K/mm3 (4.4-11.0)
[2024-12-27 10:42] LABS: Troponin T High Sensitivity 36 ng/L (<=14)
[2024-12-27 10:46] LABS: Anion Gap 9 (5-15); BUN 29 mg/dL (4-19); BUN/Creat Ratio 20.0 RATIO (10-20); Calcium,Total 9.1 mg/dL (7.6-11.0); Carbon Dioxide 25.1 mmol/L (21.0-32.0); Chloride 99 mmol/L (98-108); Estimated Creatinine Clearance 47.93 ml/min (50-250); Glucose 95 mg/dL (70-99); Potassium 5.4 mmol/L (3.3-5.1)
[2024-12-27 10:49] LABS: Mucous, Urine 0 SEEN /hpf (<or=2+); Red Blood Cells-Urine 0 SEEN /hpf (0-5)
[2024-12-27 10:50] LABS: Color, Urine Yellow (Yellow); Glucose, Dipstick Normal (Normal); Ketone-Dipstick Negative (Negative); Leukocyte Esterase-Dipstick 25 /ul (Negative); Nitrite-Dipstick Negative (Negative); Occult Blood-Urine Negative /ul (Negative); Protein-Dipstick 30 mg/dl (Negative); Specific Gravity, Urine 1.015 (1.002-1.030); Urine Bilirubin Dipstick Negative (Negative)
[2024-12-27 10:56] LABS: Squamous Epithelial Cells - UA 0-5 SEEN /hpf (5-10)
[2024-12-27] MEDS: 0.9% Normal Saline (500mL Bag) 500 ML 999 ML IV (12:15)
[2024-12-27 12:33] LABS: Troponin T High Sens 2 HR 42 ng/L (<=14)
[2024-12-27 13:27] LABS: Potassium 5.5 mmol/L (3.3-5.1)
--- NOTE | 2024-12-27 14:04 | PCM.HP.STD ---
HPI - General General Date of Admission: 12/27/24 Date of Service: 12/27/24 Chief Complaint: Altered mental status HPI Narrative PRICILA HOOKER, is a 79 F who presented to [facility] ED on 12/27/2024 with altered mental status. Patient lives at home with her sister. Medical history significant for stage III endometrial cancer, type 2 diabetes mellitus with neuropathy, chronic HFrEF, and mild chronic debility. Patient follows with Dr. Hernandes; reviewed last office note in [facility] from 12/06. She was diagnosed with stage III endometrial cancer back in 2022. She initially completed chemotherapy with carboplatin, paclitaxel and pembrolizumab. She received 5 cycles of pembrolizumab but it was then held due to worsening neuropathy and general decline. Dr. Hernandes noted that patient was having further general decline as well as worsening abdominal pain suspected secondary to cancer. He recently referred the patient to palliative care and patient and daughter notes that they have established with palliative care in the past few weeks. Dr. Hernandes also noted that he would obtain a repeat CT chest as there was recently concern for lung metastases, and if the CT chest was worse he would recommend getting hospice care involved. Unclear if the CT scans been done. Chest x-ray in the ED today showed increased markings of the lung bases suggestive of bibasilar atelectasis as well as a questionable 1.8 centimeter nodule in the medial aspect of the right middle lobe. Patient sister notes that over the past several days patient has been more weak and debilitated than normal. Notably patient did start taking extended release p.o. morphine twice daily and sister thought it may be secondary to the morphine. Does not check her sugars regularly baseline. This morning patient was more altered and had a small fall so they called EMS. She was found to have hypoglycemia with initial blood glucose in the 30s. Was given an IV D10 bolus by EMS with improvement in blood sugar to the 180s. They noted that patient regained consciousness quickly after the D10 administration. However, on arrival to the ED here her sugar had again dropped to the 40s and she was given another IV D10 bolus with improvement in her blood sugar. Labs were notable for mild hyperkalemia with potassium 5.5. No EKG changes were noted. Given worsening debility with multiple hypoglycemia episodes and mild hyperkalemia, hospitalist was contacted for admission. I saw the patient at bedside in the ED, sister was present. Patient was laying back in bed and making appropriate eye contact, and she answered a few questions for me. However, she largely deferred to her sister with answering questions. Sister notes that she has been the primary solar hot water installer for the patient for the past few years. Notes that she has seen some decline in functional status of the patient but the mentation change today was concerning to her. Patient has never had hypoglycemia like this before that she is aware of. They note that her medication regimen for diabetes has been stable for quite a while. No other acute concerns currently. Will be admitted for further management. [facility] Medical History Hypomagnesemia Former smoker Endometrial cancer, FIGO stage IIIC Pancytopenia History of cancer of uterus Obesity Dyslipidemia Coronary artery disease Nonischemic cardiomyopathy CKD (chronic kidney disease) stage 3, GFR 30-59 ml/min Endometrial cancer GERD (gastroesophageal reflux disease) Benign neoplasm of colon Cholecystitis Hypercholesteremia Neuropathy Diabetes Hypertension Chest pain Home Medications ?Medication ?Instructions ?Recorded ?Last Taken ?Type amitriptyline 50 mg tablet 50 mg PO QHS DEPRESSION 12/23/22 03/09/23 History atorvastatin 40 mg tablet 40 mg PO QHS CHOLESTEROL 12/23/22 03/09/23 History gabapentin 100 mg capsule 100 mg PO BID NERVE PAIN 12/23/22 03/10/23 History magnesium chloride 71.5 mg 71.5 mg PO BID SUPPLEMENT 12/29/22 03/10/23 History (magnesium chloride) tablet,delayed release (Slow-Mag) ondansetron HCl 8 mg tablet 8 mg PO Q12H PRN NAUSEA 12/29/22 Unknown History aspirin 81 mg tablet,delayed 81 mg PO DAILY HEART HEALTH 01/24/23 03/10/23 History release (Adult Low Dose Aspirin) acetaminophen 500 mg tablet 500 mg PO Q6H PRN PAIN 03/10/23 Unknown History (Acetaminophen Extra Strength) glimepiride 4 mg tablet 4 mg PO BID DIABETES 03/10/23 03/10/23 History silver sulfadiazine 1 % topical 1 applic topical DAILY PRN BURN 03/10/23 03/10/23 History cream carvedilol 3.125 mg tablet 6.25 mg PO BID 12/17/23 Unknown History fluticasone furoate 100 1 inh inhalation Q24H 04/27/24 Unknown History mcg-vilanterol 25 mcg/dose inhalation powder metformin 500 mg tablet 1,000 mg PO BID DIABETES 04/27/24 Unknown History morphine 15 mg tablet,extended 15 mg PO Q12.TCU 12/27/24 Unknown History release torsemide 20 mg tablet 20 mg PO DAILY 12/27/24 Unknown History valsartan 40 mg tablet 80 mg PO QHS 12/27/24 Unknown History valsartan 80 mg tablet 160 mg PO QHS 12/27/24 Unknown History Allergy/AdvReac Type Severity Reaction Status Date / Time No Known Allergies Allergy Verified 04/27/24 16:18 Family History Father Myocardial infarction Mother Heart disease irregular heart rate Colon cancer Surgical History History of cholecystectomy Hx of hysterectomy, total Hx laparoscopic cholecystectomy Hx of cataract surgery History of total left knee replacement (TKR) (~01/2011) History of total right knee replacement (TKR) (~05/11/11) Social History household members: none Smoking Status: Former smoker how long ago did patient quit smokin alcohol intake: never substance use type: does not use ROS Constitutional Constitutional: Reports fatigue and weakness; Denies chills or fever(s) Cardiovascular Cardiovascular: Denies chest pain Respiratory/Chest Respiratory/Chest: Denies shortness of breath at rest Gastrointestinal Gastrointestinal: Denies abdominal pain Musculoskeletal Musculoskeletal: Denies arthralgias or myalgias Vital Signs Vital Signs Vital Signs: 12/27/24 09:50 12/27/24 10:49 12/27/24 11:00 Temperature 97.4 F L Temperature Source Oral Pulse Rate 81 72 74 Respiratory Rate 14 16 16 Blood Pressure 115/70 110/81 H 110/71 Blood Pressure Mean 85 90 84 Pulse Ox 91 100 100 Oxygen Delivery Method Nasal Cannula Nasal Cannula Nasal Cannula Oxygen Flow Rate (L/min) 2 2 12/27/24 12:00 12/27/24 13:00 Temperature Temperature Source Pulse Rate 80 80 Respiratory Rate 16 12 Blood Pressure 121/84 H 126/80 H Blood Pressure Mean 96 95 Pulse Ox 96 97 Oxygen Delivery Method Nasal Cannula Nasal Cannula Oxygen Flow Rate (L/min) 2 2 Weight Weight: 143.743 kg Body Mass Index (BMI) 48.2 Physical Exam Const alert and no apparent distress Constitutional Narrative: Elderly female, class III obesity, mildly fatigued and weak appearing, otherwise laying back in bed fairly comfortably, answering some questions with short appropriate responses, in no acute distress. General Appearance: cooperative and comfortable HEENT normocephalic, head/scalp atraumatic, hearing grossly normal bilaterally, nasal mucous membranes and turbinates normal and moist oral mucous membranes Eyes PERRL, EOMs intact bilaterally and conjunctivae normal Neck full ROM Chest inspection of chest normal Resp normal respiratory effort, normal air movement, no use of accessory muscles and clear to auscultation bilaterally Cardio regular rate, regular rhythm, no murmurs and peripheral pulses 2+ throughout GI normal to inspection, nondistended, normoactive bowel sounds, soft to palpation, non-tender and non-distended Back/Spine normal ROM Extremity normal to inspection, full ROM and no pedal edema Skin no rashes or lesions noted Results Lab / Micro Data 12/27/24 10:15 12/27/24 12:54 Labs: Laboratory Results - last 24 hr 12/27/24 09:59: POC Glucose 98 12/27/24 10:15: WBC 8.9, RBC 3.61 L, Hgb 10.8 L, Hct 33.8 L, MCV 93.6, MCH 29.9, MCHC 32.0, RDW Std Deviation 52.3 H, RDW Coeff of [place] 15.2 H, Plt Count 159, MPV 9.4, Immature Gran % (Auto) 0.500, Neut % (Auto) 76.3 H, Lymph % (Auto) 8.6 L, [place] % (Auto) 10.3 H, Eos % (Auto) 4.1, Baso % (Auto) 0.2, Absolute Neuts (auto) 6.8, Absolute Lymphs (auto) 0.76 L, Nucleated RBC % 0, Sodium 134, Potassium 5.4 H, Chloride 99, Carbon Dioxide 25.1, Anion Gap 9, BUN 29 H, Creatinine 1.44 H, Estim Creat Clear Calc 47.93 L, Est GFR (MDRD) Non-Af 37 L, BUN/Creatinine Ratio 20.0, Glucose 95, Calcium 9.1, Troponin T High Sens 36 H 12/27/24 10:45: Urine Color Yellow, Urine Clarity Sl. Cloudy, Urine pH 5.0, Ur Specific [place] 1.015, Urine Protein 30 H, Urine Glucose (UA) Normal, Urine Ketones Negative, Urine Occult Blood Negative, Urine Nitrite Negative, Urine Bilirubin Negative, Urine Urobilinogen Normal, Ur Leukocyte Esterase 25 H, Urine RBC 0 SEEN, Urine WBC 0-5 SEEN, Ur Squamous Epith Cells 0-5 SEEN, Amorphous Sediment 2+, Urine Bacteria 2+, Urine Mucus 0 SEEN 12/27/24 12:00: Potassium Cancelled, Troponin T Hi Sens 2 Hr 42 H 12/27/24 12:54: Potassium 5.5 H 12/27/24 13:23: POC Glucose 46 L ABG Data ABG results: ABG 12/27/24 10:02 Specimen Type KEN Sample Site Not entered VBG pH 7.33 VBG pO2 40 VBG HCO3 24 VBG Total CO2 25 VBG O2 Sat (Calc) 71 H VBG Base Excess -2 L POC Mix VBG pCO2 Pt Tmp 45.4 O2 Delivery Device Not entered Rhythm Strip Rhythm Strip: Sinus Rhythm Rate: 80 Ectopy: None Imaging Radiology Impression Chest X-Ray 12/27/24 09:52 IMPRESSION: Increased markings at the lung bases suggestive of bibasilar atelectasis. Questionable 1.8 cm nodule in the medial aspect of the right middle lobe. Reading Location: [id number] Assessment & Plan Assessment/Plan (1) Recurrent severe hypoglycemia: PLAN: Plan Patient is a 79-year-old female who presented to [facility] ED on 12/28/2024 with altered mentation. 1. Hypoglycemic episodes ? Admit under observation status to PCU. Suspect primarily secondary to home glimepiride in setting of worsening p.o. intake. Possible underlying liver disease from cancer treatments may also be playing a role. Per Dr. Hernandes's note, patient was noted on recent CT scan to have findings concerning for liver cirrhosis. On MRI abdomen in April it does not appear this was present. LFTs normal on admit. Recent A1c 6.7%. Suspect patient is overmedicated for her diabetes given her worsening functional status as below. Will discontinue home glimepiride. Okay to treat with medium dose sliding scale insulin with meals while inpatient. 2. Stage III endometrial cancer with cancer related pain and deteriorating functional status ? Palliative care consulted. Follows with Dr. Hernandes and with palliative care. [facility] see HPI for further details. In short, patient was diagnosed with cancer about 2 years ago and completed chemotherapy with pembrolizumab at that time. Pembrolizumab had to be discontinued due to worsening peripheral neuropathy and functional decline. She is currently on maintenance therapy with bevacizumab. She recently established with palliative care as recommended by Dr. Hernandes. She was started on long-acting p.o. morphine 15 mg every 12 hours scheduled. Has had some improvement in her pain but sister is concerned that her mental status has worsened in part because of this. Suspect she has had some degree of poor renal clearance of the morphine given her mild creatinine elevation as below. Will hold p.o. morphine at this time and may need to utilize short acting oxycodone for pain control in the meantime. Appreciate palliative care assistance in determining best regimen for the patient from pain control standpoint on discharge. 3. Mild creatinine elevation with mild hyperkalemia ? Creatinine 1.44 on admit, baseline appears to be around 1.2. Potassium 5.4 on admit. No EKG changes noted. Suspect secondary to mild dehydration in setting of recent poor p.o. intake. Given IV fluids on admit, follow-up a.m. BMP monitor urine output. 4. Type 2 diabetes mellitus with diabetic neuropathy ? Most recent A1c 6.7%. Will treat with sliding scale insulin with meals while inpatient. Should be okay for discharge home on only metformin, would hold glimepiride on discharge. Continue home gabapentin. 5. Chronic HFrEF, history of nonobstructive CAD, hypertension, hyperlipidemia ? History of mild HFrEF suspected secondary to chemotherapy treatment. Last echo in 04/2023 showed EF 45%, mild concentric LV hypertrophy, mild global LV dysfunction. Normotensive on admit. Continue home aspirin, statin and Coreg. Will hold home torsemide and valsartan for now given mild creatinine elevation as above. 6. COPD with chronic hypoxic respiratory failure ? Stable on home 2 L nasal cannula on admit, not in acute exacerbation. Continue home inhalers. 7. Class III obesity ? BMI 47 on admit. Complicates hospital course and care. DVT prophylaxis: Heparin subcu CODE STATUS: Full code, verified. Discussed with daughter and she noted that they have set up a living will for the patient with wishes not to be on machines for the rest of her life. She was not clear if a DNR form had been completed yet and given this, wished for patient to remain full code at this time until that could be done. Expected disposition: Likely home with home health care, 1 to 2 days Total clinical time spent by myself addressing the patient's medical issues, reviewing all the data, and collaborating with patient's care team: 83 minutes. Charges/Coding Visit Charges Inpatient E&M: 10909 Init Hosp L3
[2024-12-27 15:02] LABS: Troponin T High Sens 4 HR 35 ng/L (<=14)
[2024-12-27 15:48] LABS: AST(SGOT) 37 U/L (<=31); Alanine Aminotransfer ALT/SGPT 19 U/L (<=34); Albumin, Serum 3.4 g/dL (3.4-4.8); Alkaline Phosphatase 70 U/L (35-104); Bilirubin, Direct 0.11 mg/dL (0.00-0.30); Globulin 3.7 g/dL (2.2-4.2)
--- NOTE | 2024-12-27 18:42 | NURSING ---
entered room to update vs. ORACLE ADF DEVELOPER was planning to get pt up to BR. Together Nurse & ORACLE ADF DEVELOPER ambulated pt using gait belt and walker to bathroom. Pt ambulated without difficulty but when she sat she missed the commode and slid down the wall to the floor lowered by the ORACLE ADF DEVELOPER. Pt reported no injury and did not hit her head.Staff assist button activated pt was assisted up to commode. VSS. notified by charge nurse. Pt assisted back to bed with no further incident. Family member who was present verbalized appreciation
[2024-12-27] MEDS: Albuterol 2.5 MG/3 ML VIAL.NEB. INHALATION (20:13)
[2024-12-27] MEDS: Budesonide Respules 0.5 MG/2 ML AMPUL.NEB. INHALATION (20:13)
--- NOTE | 2024-12-27 20:14 | CASEMGMT ---
Care Management Face to Face with patient for initial transition planning/care coordination assessment in the ED.? This food writer introduced self and role at [facility]. Patient alert and oriented. Patient willing to participate in assessment and is able to answer all questions appropriately.? Care providers, pharmacy, and demographics verified. Admitting Diagnosis: Hypoglycemia Other diagnosis history: ?endometrial cancer, CAD, CKS, diabetes, hypertension PCP: ?[facility] for now, looking for new PCP since MD retiring. [facility] Provider list given. Specialists: ?Greta Preferred Pharmacy: [facility] Insurance: ?[place] Prescription Benefit: ?yes Living Will/HPOA: ?yes? completed LNOK: ?sister Living Arrangements: ?patient lives in sister basement.? Able to enter with no stairs through outside entrance.? Patient able to care for ADLs, sister helps with some IADLs Transportation: sister drives DME: ?wheelchair, grab bar, shower chair, raised toilet seat, O2 through [employer], 2 Liters HHC: ?Used in the past, unsure of company SNF/Rehab: ?[facility] Community Resources: ?none Behavioral Health History: ?none Patient goals: Patient wishes to discharge home, denies need for home health care at this time. Patient denies any further needs or concerns at this time. Disposition Plan: admission to acute; RN CM/SW to follow for discharge planning needs that may arise. Alessandra Pablo, MECHANICAL MAINTENANCE ENGINEER, ARCHIVAL STUDIES PROFESSOR
[2024-12-27] MEDS: morphine SR 15 MG Tablet PO (22:01)
[2024-12-27] MEDS: 0.9% Saline Lock 10 ML Syringe IV (22:02)
[2024-12-27] MEDS: Heparin Injection (Vial) 5,000 UNIT/ML VIAL 5000 UNIT SC (22:02)
[2024-12-28] VITALS (8 sets, daily range): BP systolic 146–157; BP diastolic 70–81; PULSE 78–100; RESP 16–18; TEMP 36.1–36.9; O2SAT 94–99
[2024-12-28 05:57] LABS: Hematocrit 27.5 % (37-47); Hemoglobin 9.3 g/dL (12.0-15.0); Mean Corp Hgb Conc 33.8 g/dL (32-36); Mean Corpuscular Volume 90.8 fL (81-99); Mean Platelet Vol. 10.1 fl (6.2-12.0); Platelet Count 160 K/mm3 (150-450); RBC Distribution Width CV 15.2 % (11.6-14.6); RBC Distribution Width SD 50.7 fl (35.1-43.9); Red Blood Count 3.03 M/mm3 (4.2-5.4); White Blood Count 6.8 K/mm3 (4.4-11.0)
[2024-12-28 06:05] LABS: Prothrombin Time (Protime)PT. 14.5 SECONDS (11.7-14.9)
[2024-12-28 06:25] LABS: Anion Gap 9 (5-15); BUN 28 mg/dL (4-19); BUN/Creat Ratio 19.2 RATIO (10-20); Calcium,Total 8.9 mg/dL (7.6-11.0); Carbon Dioxide 25.1 mmol/L (21.0-32.0); Chloride 99 mmol/L (98-108); Estimated Creatinine Clearance 46.48 ml/min (50-250); Glucose 93 mg/dL (70-99); Potassium 5.1 mmol/L (3.3-5.1)
[2024-12-28] MEDS: Budesonide Respules 0.5 MG/2 ML AMPUL.NEB. INHALATION ×2 (06:52→19:19)
[2024-12-28] MEDS: Albuterol 2.5 MG/3 ML VIAL.NEB. INHALATION ×2 (06:52→19:19)
--- NOTE | 2024-12-28 08:10 | CON.PCM.PA_ITS ---
[facility] Medical History Hypomagnesemia Former smoker Endometrial cancer, FIGO stage IIIC Pancytopenia History of cancer of uterus Obesity Dyslipidemia Coronary artery disease Nonischemic cardiomyopathy CKD (chronic kidney disease) stage 3, GFR 30-59 ml/min Endometrial cancer GERD (gastroesophageal reflux disease) Benign neoplasm of colon Cholecystitis Hypercholesteremia Neuropathy Diabetes Hypertension Chest pain Home Medications ?Medication ?Instructions ?Recorded ?Last Taken ?Type amitriptyline 50 mg tablet 50 mg PO QHS DEPRESSION 03/09/23 History atorvastatin 40 mg tablet 40 mg PO QHS CHOLESTEROL 03/09/23 History gabapentin 100 mg capsule 100 mg PO BID NERVE PAIN 03/10/23 History magnesium chloride 71.5 mg 71.5 mg PO BID SUPPLEMENT 1 03/10/23 History (magnesium chloride) tablet,delayed release (Slow-Mag) ondansetron HCl 8 mg tablet 8 mg PO Q12H PRN NAUSEA Unknown History aspirin 81 mg tablet,delayed 81 mg PO DAILY HEART HEAL TH 01/24/23 03/10/23 History release (Adult Low Dose Aspirin) acetaminophen 500 mg tablet 500 mg PO Q6H PRN PAIN 12/22 Unknown History (Acetaminophen Extra Strength) silver sulfadiazine 1 % topical 1 applic topical DAILY PRN BURN 03/10/23 03/10/23 History cream carvedilol 3.125 mg tablet 6.25 mg PO BID 12/17/23 Unk nown History fluticasone furoate 100 1 inh inhalation Q24H Unknown History mcg-vilanterol 25 mcg/dose inhalation powder morphine 15 mg tablet,extended 15 mg PO Q12.TCU Unknown History release torsemide 20 mg tablet 20 mg PO DAILY 12/27/24 Unkn own History Held on 12/28/24. Instructions: Resume on 12/30/24. valsartan 80 mg tablet 160 mg PO QHS 12/27/24 Unkno wn History metformin 500 mg tablet 500 mg PO BID DIABETES 30 d ays 12/28/24 Unknown Rx #60 tabs Allergy/AdvReac Type Severity Reaction Status Date / Time No Known Allergies Allergy Verified 04/27/24 16:18 Family History Father Myocardial infarction Mother Heart disease irregular heart rate Colon cancer Surgical History History of cholecystectomy Hx of hysterectomy, total Hx laparoscopic cholecystectomy Hx of cataract surgery History of total left knee replacement (TKR) (~01/2011) History of total right knee replacement (TKR) (~05/11/11) Social History household members: none Smoking Status: Former smoker how long ago did patient quit smokin alcohol intake: never substance use type: does not use ROS Constitutional Constitutional: Reports fatigue and weakness Eyes Eyes: Reports systems reviewed and no addt'l complaints, except as documented ENT HEENT: Reports systems reviewed and no addt'l complaints, except as documented Cardiovascular Cardiovascular: Reports weakness in extremities Respiratory/Chest Respiratory/Chest: Reports dyspnea on exertion and portable oxygen @ home Gastrointestinal Gastrointestinal: Reports abdominal pain, bloating and cramping Genitourinary Genitourinary: Reports systems reviewed and no addt'l complaints, except as documented Musculoskeletal Musculoskeletal: Reports systems reviewed and no addt'l complaints, except as documented Integumentary Integumentary: Reports systems reviewed and no addt'l complaints, except as documented Neurologic Neurologic: Reports systems reviewed and no addt'l complaints, except as documented Psychiatric Psychiatric: Reports systems reviewed and no addt'l complaints, except as documented Endocrine Endocrinology: Reports systems reviewed and no addt'l complaints, except as documented Hematologic/Lymphatic Hematologic/Lymphatic: Reports systems reviewed and no addt'l complaints, except as documented Allergic/Immunologic Allergic/Immunologic: Reports systems reviewed and no addt'l complaints, except as documented Charges/Coding Palliative Care Palliative Care: 16244 New Pt Consult 80+ min
--- NOTE | 2024-12-28 08:10 | PCM.CONS.P ---
[facility] Medical History Hypomagnesemia Former smoker Endometrial cancer, FIGO stage IIIC Pancytopenia History of cancer of uterus Obesity Dyslipidemia Coronary artery disease Nonischemic cardiomyopathy CKD (chronic kidney disease) stage 3, GFR 30-59 ml/min Endometrial cancer GERD (gastroesophageal reflux disease) Benign neoplasm of colon Cholecystitis Hypercholesteremia Neuropathy Diabetes Hypertension Chest pain Home Medications ?Medication ?Instructions ?Recorded ?Last Taken ?Type amitriptyline 50 mg tablet 50 mg PO QHS DEPRESSION 12/23/22 03/09/23 History atorvastatin 40 mg tablet 40 mg PO QHS CHOLESTEROL 12/23/22 03/09/23 History gabapentin 100 mg capsule 100 mg PO BID NERVE PAIN 12/23/22 03/10/23 History magnesium chloride 71.5 mg 71.5 mg PO BID SUPPLEMENT 12/29/22 03/10/23 History (magnesium chloride) tablet,delayed release (Slow-Mag) ondansetron HCl 8 mg tablet 8 mg PO Q12H PRN NAUSEA 12/29/22 Unknown History aspirin 81 mg tablet,delayed 81 mg PO DAILY HEART HEALTH 01/24/23 03/10/23 History release (Adult Low Dose Aspirin) acetaminophen 500 mg tablet 500 mg PO Q6H PRN PAIN 03/10/23 Unknown History (Acetaminophen Extra Strength) silver sulfadiazine 1 % topical 1 applic topical DAILY PRN BURN 03/10/23 03/10/23 History cream carvedilol 3.125 mg tablet 6.25 mg PO BID 12/17/23 Unknown History fluticasone furoate 100 1 inh inhalation Q24H 04/27/24 Unknown History mcg-vilanterol 25 mcg/dose inhalation powder morphine 15 mg tablet,extended 15 mg PO Q12.TCU 12/27/24 Unknown History release torsemide 20 mg tablet 20 mg PO DAILY 12/27/24 Unknown History Held on 12/28/24. Instructions: Resume on 12/30/24. valsartan 80 mg tablet 160 mg PO QHS 12/27/24 Unknown History metformin 500 mg tablet 500 mg PO BID DIABETES 30 days 12/28/24 Unknown Rx #60 tabs Allergy/AdvReac Type Severity Reaction Status Date / Time No Known Allergies Allergy Verified 04/27/24 16:18 Family History Father Myocardial infarction Mother Heart disease irregular heart rate Colon cancer Surgical History History of cholecystectomy Hx of hysterectomy, total Hx laparoscopic cholecystectomy Hx of cataract surgery History of total left knee replacement (TKR) (~01/2011) History of total right knee replacement (TKR) (~05/11/11) Social History household members: none Smoking Status: Former smoker how long ago did patient quit smokin alcohol intake: never substance use type: does not use ROS Constitutional Constitutional: Reports fatigue and weakness Eyes Eyes: Reports systems reviewed and no addt'l complaints, except as documented ENT HEENT: Reports systems reviewed and no addt'l complaints, except as documented Cardiovascular Cardiovascular: Reports weakness in extremities Respiratory/Chest Respiratory/Chest: Reports dyspnea on exertion and portable oxygen @ home Gastrointestinal Gastrointestinal: Reports abdominal pain, bloating and cramping Genitourinary Genitourinary: Reports systems reviewed and no addt'l complaints, except as documented Musculoskeletal Musculoskeletal: Reports systems reviewed and no addt'l complaints, except as documented Integumentary Integumentary: Reports systems reviewed and no addt'l complaints, except as documented Neurologic Neurologic: Reports systems reviewed and no addt'l complaints, except as documented Psychiatric Psychiatric: Reports systems reviewed and no addt'l complaints, except as documented Endocrine Endocrinology: Reports systems reviewed and no addt'l complaints, except as documented Hematologic/Lymphatic Hematologic/Lymphatic: Reports systems reviewed and no addt'l complaints, except as documented Allergic/Immunologic Allergic/Immunologic: Reports systems reviewed and no addt'l complaints, except as documented Charges/Coding Palliative Care Palliative Care: [id number] New Pt Consult 80+ min HPI Current admission Current Code Status: FULL CODE Associated Diagnosis: HYPOGLYCEMIA/AMS Consult Data Date of Consult: 12/28/24 Location of consult: PCU Reason for referral: goals of care Referral source: [place] Palliative care diagnosis (Summary list): AMS Palliative care services/treatment (Accepted, as consult): accepted Case discussed with referring provider: goals HPI Narrative HPI Narrative: PAIN ASSESSMENT denies pain, at this time but states moving gives her RLQ pain Location: [ RLQ] Quality: [sharp ] Severity/Quantity: [ 09/07] Timing/Frequency: [occasional ] Context: [ ] Factors that make it better/worse: [ movement makes it worse Associated signs & symptoms: [occasional nausea ] PRICILA HOOKER, is a 79 F who presented to the ED on 12/27 for AMS as a result of hypoglycemia. She does have hx of endometrial CA stage III. CKD III, CAD, diabetes, HTN, HLD, nonischemic cardiomyopathy, and morbid obesity with a BMI of 47.4. She is, reportedly, followed by outpatient palliative care. She thinks it is [facility]. I then met with Pricila at bedside, She is being fed by nursing. I introduced myself and pallaitive care in which she voluntarily agreed to meet with me. Although Pricila is aao x 3, she does get confused easily during our conversation and she begins to ramble about unrelated topics. She is easily reoriented. She is on O2 at baseline. 4 liters. [facility] an [facility] basis. She was able to provide me with some information but she does lack insight into her medical care and is a poor historian. Decision was made to await the arrival of pts sister Milagro to discuss goals of care. I then met with her sister, she will and the patient in her room. We have extensive discussion about goals of care going forward. At this time both Pricila and her sister would like to continue with medical management. They do acknowledge that the patient cannot sleep on the medical and that they would like to speak with Dr. Hernandes prior to making any further decisions. Patient's sister, Milagro, is concerned that the patient is too debilitated to return home at this time and is requesting evaluation for the possibility of going to SNF at [place] or inpatient rehab. I did reach out to Dr. Vera to update him about patient and sister decision. Patient's sister is concerned that some of the confusion is coming from a buildup of morphine in the patient's system. Based on the patient having decreased kidney function this could be possible although she has not received any doses of morphine extended release and 24 hours. She continues to have some delirium. I do recommend that we hold off on administering the patient's extended release morphine as she is currently not having pain and utilize Oxy IR for pain control. Finally I did discuss with the patient and sister about patient's CODE STATUS. They did indicate that patient is a DNR CC?a with no intubation. I did change the CODE STATUS and updated the primary physician. I did reach out to social work to update them on family decision about going to SNF because this patient's sister does not feel like the patient is strong up to return home and she is unable to lift her sister on her own. All questions answered. Palliative care will continue to follow for goals of care conversations which are involved. per admitting hospitalist: PRICILA HOOKER, is a 79 F who presented to [facility] ED on 12/27/2024 with altered mental status. Patient lives at home with her sister. Medical history significant for stage III endometrial cancer, type 2 diabetes mellitus with neuropathy, chronic HFrEF, and mild chronic debility. Patient follows with Dr. Hernandes; [facility] She was diagnosed with stage III endometrial cancer back in 2022. She initially completed chemotherapy with carboplatin, paclitaxel and pembrolizumab. She received 5 cycles of pembrolizumab but it was then held due to worsening neuropathy and general decline. Dr. Hernandes noted that patient was having further general decline as well as worsening abdominal pain suspected secondary to cancer. He recently referred the patient to palliative care and patient and daughter notes that they have established with palliative care in the past few weeks. Dr. Hernandes also noted that he would obtain a repeat CT chest as there was recently concern for lung metastases, and if the CT chest was worse he would recommend getting hospice care involved. Unclear if the CT scans been done. Chest x-ray in the ED today showed increased markings of the lung bases suggestive of bibasilar atelectasis as well as a questionable 1.8 centimeter nodule in the medial aspect of the right middle lobe. Patient sister notes that over the past several days patient has been more weak and debilitated than normal. Notably patient did start taking extended release p.o. morphine twice daily and sister thought it may be secondary to the morphine. Does not check her sugars regularly baseline. This morning patient was more altered and had a small fall so they called EMS. She was found to have hypoglycemia with initial blood glucose in the 30s. Was given an IV D10 bolus by EMS with improvement in blood sugar to the 180s. They noted that patient regained consciousness quickly after the D10 administration. However, on arrival to the ED here her sugar had again dropped to the 40s and she was given another IV D10 bolus with improvement in her blood sugar. Labs were notable for mild hyperkalemia with potassium 5.5. No EKG changes were noted. Given worsening debility with multiple hypoglycemia episodes and mild hyperkalemia, hospitalist was contacted for admission. I saw the patient at bedside in the ED, sister was present. Patient was laying back in bed and making appropriate eye contact, and she answered a few questions for me. However, she largely deferred to her sister with answering questions. Sister notes that she has been the primary administrative specialist for the patient for the past few years. Notes that she has seen some decline in functional status of the patient but the mentation change today was concerning to her. Patient has never had hypoglycemia like this before that she is aware of. They note that her medication regimen for diabetes has been stable for quite a while. No other acute concerns currently. Will be admitted for further management. Palliative Assessment Advanced Directive - Current Admission Advance Directive: Advance Directive ON ADMISSION - REFERENCE Do you have a Healthcare Yes 12/27/24 15:23 Living Will? Is a Healthcare Living Will Yes, paper copy provided 12/27/24 15:23 present in the medical record? Do you have a Healthcare Power No 12/27/24 15:23 of Road Machinery Inspector? Is a Healthcare Power of Yes, paper copy provided 12/27/24 09:56 Road Machinery Inspector present in the medical rec Do You Want Additional Declined 12/27/24 15:23 Information on Advanced Directives or Healthcare Proxy/DPOA comments: sister Milagro [phone] Psychosocial/Spiritual Information Living situation/Marital status: and lives with sister Geographic location: [place] Supports: sister Jehovah'S Witness/Dolores or spiritual preference: protestant Spiritual distress: denies Prior functional status: not able to perform all of her own ADL's has worsened over the last few weeks Assistive devices at home: walker/W/C Cultrual issues: none noted Information about the patient as a person: pt likes to hill Symptoms Palliative performance scale: 30% Palliative prognostic index: 11.0 Dyspnea symptoms: Moderate Constipation symptoms: None Nausea symptoms: Mild Vomiting symptoms: None Fatigue symptoms: Moderate Weakness symptoms: Severe Confusion symptoms: Moderate Objective Data Objective Data Vital Signs: Vital Signs Temp Pulse Resp BP Pulse Ox O2 Del Method O2 Flow Rate 97.4 F L 90 18 157/70 H 94 Nasal Cannula 3 12/28/24 03:31 12/28/24 06:52 12/28/24 06:52 12/28/24 03:31 12/28/24 06:52 12/28/24 06:52 12/28/24 06:52 Oxygen Flow Rate (L/min) 3 Oxygen Delivery Method Nasal Cannula Weight: 311 lb 9.6 oz Body Mass Index (BMI) 47.3 Intake & Output: Intake and Output for Last 24 Hours 12/26/24 12/27/24 12/28/24 23:59 23:59 23:59 Intake Total 1275 / 1275 Balance 1275 / 1275 Lab / Micro Data Attestation: I reviewed the patient's lab results. Lab results narrative: improvedment in K+ to 5.1 from 5.5 yesterday. elevated BUN of 28 from 29 yesterday, increased creatinine to 1.47 from 1.44 and GFR of 26 which appears to be normal for this pt, 12/28/24 05:25 12/28/24 05:25 Labs: Laboratory Results - last 24 hr 12/27/24 09:59: POC Glucose 98 12/27/24 10:15: WBC 8.9, RBC 3.61 L, Hgb 10.8 L, Hct 33.8 L, MCV 93.6, MCH 29.9, MCHC 32.0, RDW Std Deviation 52.3 H, RDW Coeff of [place] 15.2 H, Plt Count 159, MPV 9.4, Immature Gran % (Auto) 0.500, Neut % (Auto) 76.3 H, Lymph % (Auto) 8.6 L, Barron % (Auto) 10.3 H, Eos % (Auto) 4.1, Baso % (Auto) 0.2, Absolute Neuts (auto) 6.8, Absolute Lymphs (auto) 0.76 L, Nucleated RBC % 0, Sodium 134, Potassium 5.4 H, Chloride 99, Carbon Dioxide 25.1, Anion Gap 9, BUN 29 H, Creatinine 1.44 H, Estim Creat Clear Calc 47.93 L, Est GFR (MDRD) Non-Af 37 L, BUN/Creatinine Ratio 20.0, Glucose 95, Calcium 9.1, Troponin T High Sens 36 H 12/27/24 10:45: Urine Color Yellow, Urine Clarity Sl. Cloudy, Urine pH 5.0, Ur Specific [place] 1.015, Urine Protein 30 H, Urine Glucose (UA) Normal, Urine Ketones Negative, Urine Occult Blood Negative, Urine Nitrite Negative, Urine Bilirubin Negative, Urine Urobilinogen Normal, Ur Leukocyte Esterase 25 H, Urine RBC 0 SEEN, Urine WBC 0-5 SEEN, Ur Squamous Epith Cells 0-5 SEEN, Amorphous Sediment 2+, Urine Bacteria 2+, Urine Mucus 0 SEEN 12/27/24 12:00: Potassium Cancelled, Troponin T Hi Sens 2 Hr 42 H 12/27/24 12:54: Potassium 5.5 H 12/27/24 13:23: POC Glucose 46 L 12/27/24 14:14: Hemoglobin A1c 7.1 H, Total Bilirubin 0.31, Direct Bilirubin 0.11, AST 37 H, ALT 19, Alkaline Phosphatase 70, Troponin T Hi Sens 4Hr 35 H, Total Protein 7.1, Albumin 3.4, Globulin 3.7 12/27/24 14:34: POC Glucose 100 12/27/24 15:23: POC Glucose 100 12/27/24 16:29: POC Glucose 119 H 12/27/24 21:59: POC Glucose 87 12/28/24 03:20: POC Glucose 70 L 12/28/24 03:40: POC Glucose 67 L 12/28/24 04:01: POC Glucose 82 12/28/24 05:25: WBC 6.8, RBC 3.03 L, Hgb 9.3 L, Hct 27.5 L, MCV 90.8, MCH 30.7, MCHC 33.8 D, RDW Std Deviation 50.7 H, RDW Coeff of [place] 15.2 H, Plt Count 160, MPV 10.1, PT 14.5, INR 1.1, Sodium 132 L, Potassium 5.1, Chloride 99, Carbon Dioxide 25.1, Anion Gap 9, BUN 28 H, Creatinine 1.47 H, Estim Creat Clear Calc 46.48 L, Est GFR (MDRD) Non-Af 36 L, BUN/Creatinine Ratio 19.2, Glucose 93, Calcium 8.9 12/28/24 06:15: POC Glucose 103 ABG Data ABG results: ABG 12/27/24 10:02 Specimen Type KEN Sample Site Not entered VBG pH 7.33 VBG pO2 40 VBG HCO3 24 VBG Total CO2 25 VBG O2 Sat (Calc) 71 H VBG Base Excess -2 L POC Mix VBG pCO2 Pt Tmp 45.4 O2 Delivery Device Not entered Radiography Diagnostic Testing: Radiology Impression Chest X-Ray 12/27/24 09:52 IMPRESSION: Increased markings at the lung bases suggestive of bibasilar atelectasis. Questionable 1.8 cm nodule in the medial aspect of the right middle lobe. Reading Location: [id number] Rhythm Strip Rhythm Strip: Sinus Rhythm Rate: 80 Ectopy: None Impressions & Recommendations Patient & Family Issues discussed with the patient and family: Goals of care going forward, CODE STATUS discussion, discharge planning Patient goal: Patient wants to continue medical management of her cancer but is open to SNF placement Family goal: Family would like patient to go to SNF to get stronger before returning home Ethical & Legal Ethical and legal: Patient is slightly confused on occasion recommend utilization of POA Impressions Impressions: Patient is not ready for hospice, at this time. She would like to continue with palliative care from an outpatient standpoint Recommentation Palliative recommendations: Although patient would be a hospice candidate she currently wants to continue aggressive medical management. Encouter Achieved as a result of this Palliative Care Encounter: [07 53?08 15, 08 51?08 58, [id number]] minutes were spent in total for this visit which consisted, primarily of counseling and education dealing with the complex and emotionally intense issues of symptom management and palliative care in the setting of serious and potentially life-threatening illness. Review of documentation, labs and radiological studies. 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: (5) Adverse drug reaction: QUALIFIERS: Encounter type: initial encounter Qualified Code(s): T50.905A - Adverse effect of unspecified drugs, medicaments and biological substances, initial encounter PLAN: Recommend discontinuing extended release morphine and utilize immediate release oxycodone for pain management (6) CKD (chronic kidney disease) stage 3, GFR 30-59 ml/min: PLAN: Medical management per primary team (7) Palliative care encounter: PLAN: *CODE STATUS changed to DNR CC?a with no intubation *Patient would like to continue with palliative care on an outpatient basis at this time (8) Goals of care, counseling/discussion: PLAN: *Patient and sister would like the patient to get stronger before returning home because the patient's sister is unable to lift her on her own *Recommend PT/OT evaluation and treatment for the possibility of SNF placement or inpatient rehab. *Patient would like to continue aggressive medical management for her cancer and follow-up with Dr. Hernandes from an outpatient standpoint.
[2024-12-28] MEDS: Aspirin E.C. 81 MG Tablet PO (08:54)
[2024-12-28] MEDS: Heparin Injection (Vial) 5,000 UNIT/ML VIAL 5000 UNIT SC ×2 (08:54→21:50)
--- NOTE | 2024-12-28 10:48 | DCINST_ITS ---
Discharge Instructions DC O2, CPAP, BIPAP needs Home O2 Discharge instructions: No Dressing / Incision Discharge Activity: Return to Normal Activity Dressing / Incision Call your doctor if you observe: Fever of 101 or Higher, Shortness of breath, Dizziness, Fainting spells, Swelling in the ankles, Chest pain and Increased palpitations (irregular heartbeat) Follow Up Care Test Results: Test results from this visit will be discussed in further detail at your follow- up appointment, if applicable. Discharge Plan Admission Admit Date/Time: 12/27/24 14:44 Attending Provider: Eddie Vera Primary Care Provider: Deven Van Consulting Providers: Ramy Anglin; Taniya Castaneda Instructions Patient Instructions: ED Hypoglycemia Oral Diabetic Med Discharge Orders/Prescriptions Prescriptions: Continued amitriptyline 50 mg tablet 50 mg PO QHS gabapentin 100 mg capsule 100 mg PO BID Patient Comments: PT STATES ONLY TAKES ONE CAPSULE TWICE A DAY ( OF 04/27/24) atorvastatin 40 mg tablet 40 mg PO QHS Slow-Mag 71.5 mg tablet,delayed release (DR/EC) 71.5 mg PO BID ondansetron HCl 8 mg tablet 8 mg PO Q12H PRN (Reason: NAUSEA ) silver sulfadiazine 1 % cream 1 applic topical DAILY PRN (Reason: BURN) Rx Instructions: APPLY ONE APPLICATION ONCE DAILY NEEDED TO HAND acetaminophen [Acetaminophen Extra Strength] 500 mg tablet 500 mg PO Q6H PRN (Reason: PAIN ) aspirin [Adult Low Dose Aspirin] 81 mg tablet,delayed release (DR/EC) 81 mg PO DAILY carvedilol 3.125 mg tablet 6.25 mg PO BID valsartan 80 mg tablet 160 mg PO QHS morphine 15 mg tablet extended release 15 mg PO Q12.TCU fluticasone furoate-vilanterol 100-25 mcg/dose blister with device 1 inh INHALATION Q24H Patient Comments: [NO ORIGINAL SIG] Changed metformin 500 MG tablet 500 mg PO BID 30 Days Qty: 60 0RF Held torsemide 20 mg tablet 20 mg PO DAILY Hold Instructions: Resume on 12/30/24. Discontinued glimepiride 4 mg tablet 4 mg PO BID valsartan 40 mg tablet 80 mg PO QHS Referrals / Follow Up: Deven Van MD [Primary Care Provider, Family Practice] - Within 1 Week Disposition Disposition (needs filled in before D/C Order can be placed): Home, Self Care
--- NOTE | 2024-12-28 11:23 | PN.HOSP_ITS ---
Subjective Subjective Doing well, she is little bit slow but she is alert and oriented x 3 Objective Data Objective Data Vital Signs: Vital Signs Temp Pulse Resp BP Pulse Ox O2 Del Method O2 Flow Rate 97.4 F L 90 18 157/70 H 94 Nasal Cannula 3 12/28/24 03:31 12/28/24 06:52 12/28/24 06:52 12/28/24 03:31 12/28/24 06:52 12/28/24 08:12 12/28/24 06:52 Oxygen Flow Rate (L/min) 3 Oxygen Delivery Method Nasal Cannula Weight: 311 lb 9.6 oz Body Mass Index (BMI) 47.3 Intake & Output: Intake and Output for Last 24 Hours 12/27/24 12/28/24 12/29/24 03:59 03:59 03:59 Intake Total 1275 / 1275 Balance 1275 / 1275 Lab / Micro Data 12/28/24 05:25 12/28/24 05:25 Labs: Laboratory Results - last 24 hr 12/27/24 12:00: Potassium Cancelled, Troponin T Hi Sens 2 Hr 42 H 12/27/24 12:54: Potassium 5.5 H 12/27/24 13:23: POC Glucose 46 L 12/27/24 14:14: Hemoglobin A1c 7.1 H, Total Bilirubin 0.31, Direct Bilirubin 0.11, AST 37 H, ALT 19, Alkaline Phosphatase 70, Troponin T Hi Sens 4Hr 35 H, Total Protein 7.1, Albumin 3.4, Globulin 3.7 12/27/24 14:34: POC Glucose 100 12/27/24 15:23: POC Glucose 100 12/27/24 16:29: POC Glucose 119 H 12/27/24 21:59: POC Glucose 87 12/28/24 03:20: POC Glucose 70 L 12/28/24 03:40: POC Glucose 67 L 12/28/24 04:01: POC Glucose 82 12/28/24 05:25: WBC 6.8, RBC 3.03 L, Hgb 9.3 L, Hct 27.5 L, MCV 90.8, MCH 30.7, MCHC 33.8 D, RDW Std Deviation 50.7 H, RDW Coeff of Casper 15.2 H, Plt Count 160, MPV 10.1, PT 14.5, INR 1.1, Sodium 132 L, Potassium 5.1, Chloride 99, Carbon Dioxide 25.1, Anion Gap 9, BUN 28 H, Creatinine 1.47 H, Estim Creat Clear Calc 46.48 L, Est GFR (MDRD) Non-Af 36 L, BUN/Creatinine Ratio 19.2, Glucose 93, Calcium 8.9 12/28/24 06:15: POC Glucose 103 12/28/24 10:58: POC Glucose 110 H Rhythm Strip Rhythm Strip: Sinus Rhythm Rate: 80 Ectopy: None Physical Exam Narrative General: Alert, Oriented x3, Cooperative, No apparent distress HEENT: Atraumatic, PERRLA, EOMI, Normocephalic Oral: Moist Mucosa Neck: Supple, No JVD Lungs: Diminished moves all extremities, Normal air movement, No rhonchi, No wheeze, No rales Cardiovascular: Regular rate, Regular Rhythm, Normal S1, Normal S2, No murmurs, left chest port Abdomen: Soft, Non Tender, Non-Distended, No Hepato-splenomegaly Extremities: No edema, Capillary Refill Less than 3 Seconds Skin: No rashes, No breakdown Musculoskeletal: No Tenderness to Palpation of Joints or Extremities Neurological: No focal neurological deficits, Motor Exam 5/5 strength throughout, Sensory exam intact to light touch and pain Psych/Mental Status: Normal Affect, Appropriate Assessment & Plan Assessment/Plan (1) Recurrent severe hypoglycemia: PLAN: Plan 1. Hypoglycemic episodes with mild creatinine elevation and hyperkalemia/DM2 with diabetic neuropathy ?She is on glimepiride which will be discontinued on discharge as this is likely causing her hypoglycemic episodes recently ? Would also recommend decreasing her metformin to 500 mg p.o. twice daily ? Her confusion appears resolved however family is concerned so we will continue to monitor ? Palliative care has been consulted appreciate their assistance ? Potassium is improving, and creatinine is slightly elevated but not in the range for an JACY ? A1c of 6.7 ? Continue with sliding scale insulin with Accu-Cheks 2. Stage III endometrial cancer with cancer related pain and deteriorating functional status ? Palliative care consulted. Follows with Dr. Hernandes and with palliative care. Reviewed recent office note from 12/06 in [facility], see HPI for further details. In short, patient was diagnosed with cancer about 2 years ago and completed chemotherapy with pembrolizumab at that time. Pembrolizumab had to be discontinued due to worsening peripheral neuropathy and functional decline. She is currently on maintenance therapy with bevacizumab. She recently established with palliative care as recommended by Dr. Hernandes. She was started on long- acting p.o. morphine 15 mg every 12 hours scheduled. Has had some improvement in her pain but sister is concerned that her mental status has worsened in part because of this. Suspect she has had some degree of poor renal clearance of the morphine given her mild creatinine elevation as below. Will hold p.o. morphine at this time and may need to utilize short acting oxycodone for pain control in the meantime. Appreciate palliative care assistance in determining best regimen for the patient from pain control standpoint on discharge. 3. Chronic HFrEF, history of nonobstructive CAD, hypertension, hyperlipidemia ? History of mild HFrEF suspected secondary to chemotherapy treatment. Last echo in 04/2023 showed EF 45%, mild concentric LV hypertrophy, mild global LV dysfunction. Normotensive on admit. Continue home aspirin, statin and Coreg. Will hold home torsemide and valsartan for now given mild creatinine elevation as above. 4. COPD with chronic hypoxic respiratory failure ? Stable on home 2 L nasal cannula on admit, not in acute exacerbation. Continue home inhalers. DVT: Heparin Charges/Coding Visit Charges Inpatient E&M: 43008 Subs Hosp L2
--- NOTE | 2024-12-28 13:18 | CHAPLAIN ---
Type of Pastoral Visit _x__ Initial Visit ___ Follow-up Visit ___ On-call Visit ___ General Patient Visit ___ Spiritual Assessment ___ Family Conference ___ Bereavement ___ Rapid Response ___ Code Blue ___ Other (describe below) Pastoral Care Referral From _x__ Patient _x__ Family ___ Nurse ___ Physician ___ Choreography Director ___ Shop Steward ___ Other (describe below) Sacrament/Intervention _x__ Active listening ___ Anointing ___ Yarsani ___ Bereavement ___ Communion _x__ Dolores exploration ___ _x__ Life review _x__ Prayer ___ Reconciliation ___ Sacrament of Sick _x__ Supportive presence ___ Wedding ___ Other (describe below) Pastoral Comments had to wait on seeing this patient due to visits from LAMINATING MACHINE OPERATOR from Palliative Care and RN from unit as they did their jobs; pt and her sister are in the room; both are welcoming; pt admits that she is not up to her normal and not as quick on thinking or talking; 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
--- NOTE | 2024-12-28 15:27 | CASEMGMT ---
RAY Met with patient to complete RAY form. RAY form and its content were verbally explained and patient's questions were answered to the best of my ability.? Patient voiced understanding and signed RAY form.? Patient provided a copy of signed RAY form and original placed in patient's chart.? Patient had no further questions. Carole Marin, Discharge Planning Ass
--- NOTE | 2024-12-28 15:34 | CASEMGMT ---
Social Work SW spoke with the patient and her sister. Patient would like to DC to a SNF. SW informed them SW will provide them with a list of SNF's in her insurance network. The patient and her sister reported their first choice is TCU. SERGIO Stroud
--- NOTE | 2024-12-28 15:45 | CASEMGMT ---
Discharge Planning A list of?SNF providers including quality and resource use data and consistent with the patient's preferred geographic region, medical needs, and insurance network was created in [facility] Guide.? This list was provided to the CLAIR. Carole Marin, Discharge Planning Asst
--- NOTE | 2024-12-28 15:52 | CASEMGMT ---
Social Work SW provided the patient and her sister a list of?SNF?providers including quality and resource use data and consistent with the patient's preferred geographic region, medical needs, and insurance network created in [facility] Guide.?Their 1st choice is TCU, 2nd choice [facility], 3rd- [facility] and 4th-[facility]. CLAIR sne the referral to TCU for review. SERGIO Reynolds
[2024-12-29] VITALS (7 sets, daily range): BP systolic 141–156; BP diastolic 74–89; PULSE 71–90; RESP 16–20; TEMP 36.4–36.9; O2SAT 94–97
[2024-12-29] MEDS: Albuterol 2.5 MG/3 ML VIAL.NEB. INHALATION ×3 (06:58→17:42)
[2024-12-29] MEDS: Budesonide Respules 0.5 MG/2 ML AMPUL.NEB. INHALATION ×2 (06:58→17:42)
[2024-12-29] MEDS: Aspirin E.C. 81 MG Tablet PO (08:57)
[2024-12-29] MEDS: Heparin Injection (Vial) 5,000 UNIT/ML VIAL 5000 UNIT SC ×2 (09:03→21:42)
--- NOTE | 2024-12-29 10:06 | PCM.PN.HOSP ---
Subjective Subjective Doing well, no issues overnight Objective Data Objective Data Vital Signs: Vital Signs Temp Pulse Resp BP Pulse Ox O2 Del Method O2 Flow Rate 97.6 F L 83 16 156/89 H 95 Nasal Cannula 2 12/29/24 09:00 12/29/24 09:00 12/29/24 09:00 12/29/24 09:00 12/29/24 09:00 12/29/24 09:23 12/29/24 09:23 Oxygen Flow Rate (L/min) 2 Oxygen Delivery Method Nasal Cannula Weight: 311 lb 9.6 oz Body Mass Index (BMI) 47.3 Intake & Output: Intake and Output for Last 24 Hours 12/28/24 12/29/24 12/30/24 03:59 03:59 03:59 Intake Total 1275 / 1275 720 / 720 Output Total 1700 / 1700 1000 / 1000 Balance 1275 / 1275 -980 / -980 -1000 / -1000 Lab / Micro Data 12/28/24 05:25 12/28/24 05:25 Labs: Laboratory Results - last 24 hr 12/28/24 10:58: POC Glucose 110 H 12/28/24 15:56: POC Glucose 147 H 12/28/24 21:48: POC Glucose 185 H 12/29/24 03:29: POC Glucose 155 H 12/29/24 06:08: POC Glucose 140 H Rhythm Strip Rhythm Strip: Sinus Rhythm Rate: 80 Ectopy: None Physical Exam Narrative General: Alert, Oriented x3, Cooperative, No apparent distress HEENT: Atraumatic, PERRLA, EOMI, Normocephalic Oral: Moist Mucosa Neck: Supple, No JVD Lungs: Diminished moves all extremities, Normal air movement, No rhonchi, No wheeze, No rales Cardiovascular: Regular rate, Regular Rhythm, Normal S1, Normal S2, No murmurs, left chest port Abdomen: Soft, Non Tender, Non-Distended, No Hepato-splenomegaly Extremities: No edema, Capillary Refill Less than 3 Seconds Skin: No rashes, No breakdown Musculoskeletal: No Tenderness to Palpation of Joints or Extremities Neurological: No focal neurological deficits, Motor Exam 5/5 strength throughout, Sensory exam intact to light touch and pain Psych/Mental Status: Normal Affect, Appropriate Assessment & Plan Assessment/Plan (1) Recurrent severe hypoglycemia: PLAN: Plan 1. Hypoglycemic episodes with mild creatinine elevation and hyperkalemia/DM2 with diabetic neuropathy ?She is on glimepiride which will be discontinued on discharge as this is likely causing her hypoglycemic episodes recently ? Would also recommend decreasing her metformin to 500 mg p.o. twice daily ? Her confusion appears resolved however family is concerned and would like to seek possible SNF placement ? Palliative care has been consulted appreciate their assistance ? Potassium is improving, and creatinine is slightly elevated but not in the range for an JACY ? A1c of 6.7 ? Continue with sliding scale insulin with Accu-Cheks 2. Stage III endometrial cancer with cancer related pain and deteriorating functional status ? Palliative care consulted. ? Will hold her morphine if she is not having significant pain as this can also lead to some of her confusion 3. Chronic HFrEF/CAD/essential HTN/HLD ? History of mild HFrEF suspected secondary to chemotherapy treatment ? Last echo in 04/2023 showed EF 45%, mild concentric LV hypertrophy, mild global LV dysfunction ? Continue home aspirin, statin and Coreg. Will hold home torsemide and valsartan for now given mild creatinine elevation as above. 4. COPD with chronic hypoxic respiratory failure ? Stable on home 2 L nasal cannula on admit ? Not in acute exacerbation, continue home inhalers. DVT: Heparin Charges/Coding Visit Charges Inpatient E&M: 53767 Subs Hosp L2
--- NOTE | 2024-12-29 10:10 | CASEMGMT ---
Social Work TCU is not able to accept the patient. A SNF referral will be sent to [facility]. SERGIO Stroud
--- NOTE | 2024-12-29 10:36 | CASEMGMT ---
Addendum entered by Carole Marin 12/29/24 12:50: [facility] has declined. SW updated. Carole Marin DC Planning Asst. Original Note: Discharge Planning Referral sent via [facility] to [facility]. Carole Marin DC Planning Asst.
--- NOTE | 2024-12-29 13:07 | CASEMGMT ---
Addendum entered by Carole Marin 12/29/24 14:42: [facility] has accepted and will submit for precert. Carole Marin DC Planning Asst. Original Note: Discharge Planning Referral sent via [facility] to [facility]. Carole Marin DC Planning Asst.
--- NOTE | 2024-12-29 15:25 | CASEMGMT ---
Social Work CLAIR spoke with the patient and her sister Milagro. CLAIR informed them that TCU and [facility] denied the patient but [facility] accepted the patient and started that approval process with the insurance company. Milagro reported that she will transport the patient to the SNF due to the cost and one her daughters maybe able to help with getting the patient in the car. Milagro reported the patient sees Dr. Hernandes every 3 weeks and takes Avastin (Bevacizumab) at those visits. Her next appt. is January 18. She missed her appt. yesterday because she was in the hospital. She takes this medication once every 3 weeks. CLAIR informed [facility] of this information. The PASSR has been completed. The patient will be discharging skilled. Green sheet is in the chart. SERGIO Stroud
[2024-12-30] VITALS (8 sets, daily range): BP systolic 129–170; BP diastolic 67–85; PULSE 77–94; RESP 16–18; TEMP 36.6–37; O2SAT 94–95
[2024-12-30] MEDS: Albuterol 2.5 MG/3 ML VIAL.NEB. INHALATION ×3 (06:52→17:43)
[2024-12-30] MEDS: Budesonide Respules 0.5 MG/2 ML AMPUL.NEB. INHALATION ×2 (06:53→17:43)
[2024-12-30 07:22] LABS: Hematocrit 31.8 % (37-47); Hemoglobin 10.2 g/dL (12.0-15.0); Immature Granulocytes Count 0.030 X10^3/uL (0.0-0.0); Mean Corp Hgb Conc 32.1 g/dL (32-36); Mean Corpuscular Volume 91.9 fL (81-99); Mean Platelet Vol. 9.5 fl (6.2-12.0); NRBC Flagged by Analyzer 0 % (0-5); Platelet Count 185 K/mm3 (150-450); RBC Distribution Width CV 14.9 % (11.6-14.6); RBC Distribution Width SD 50.6 fl (35.1-43.9); Red Blood Count 3.46 M/mm3 (4.2-5.4); White Blood Count 5.9 K/mm3 (4.4-11.0)
[2024-12-30 07:52] LABS: Anion Gap 8 (5-15); BUN 23 mg/dL (4-19); BUN/Creat Ratio 20.3 RATIO (10-20); Calcium,Total 9.5 mg/dL (7.6-11.0); Carbon Dioxide 25.8 mmol/L (21.0-32.0); Chloride 103 mmol/L (98-108); Estimated Creatinine Clearance 60.46 ml/min (50-250); Glucose 108 mg/dL (70-99); Potassium 5.2 mmol/L (3.3-5.1)
[2024-12-30] MEDS: Heparin Injection (Vial) 5,000 UNIT/ML VIAL 5000 UNIT SC ×2 (09:26→20:38)
[2024-12-30] MEDS: Aspirin E.C. 81 MG Tablet PO (09:26)
--- NOTE | 2024-12-30 11:29 | PN.HOSP_ITS ---
Subjective Subjective Much more alert today, she felt she ambulated much easier yesterday than she had on the days prior Objective Data Objective Data Vital Signs: Vital Signs Temp Pulse Resp BP Pulse Ox O2 Del Method O2 Flow Rate 98.1 F 87 16 148/78 H 94 Nasal Cannula 2 12/30/24 09:23 12/30/24 09:23 12/30/24 09:23 12/30/24 09:23 12/30/24 09:23 12/30/24 09:23 12/30/24 10:38 Oxygen Flow Rate (L/min) 2 Oxygen Delivery Method Nasal Cannula Weight: 311 lb 9.6 oz Body Mass Index (BMI) 47.3 Intake & Output: Intake and Output for Last 24 Hours 12/29/24 12/30/24 12/31/24 03:59 03:59 02:59 Intake Total 720 / 720 500 / 500 250 / 250 Output Total 1700 / 1700 1900 / 1900 1200 / 1200 Balance -980 / -980 -1400 / -1400 -950 / -950 Lab / Micro Data 12/30/24 06:59 12/30/24 06:59 Labs: Laboratory Results - last 24 hr 12/29/24 12:18: POC Glucose 221 H 12/29/24 17:02: POC Glucose 189 H 12/29/24 21:27: POC Glucose 187 H 12/30/24 06:59: WBC 5.9, RBC 3.46 L, Hgb 10.2 L, Hct 31.8 L, MCV 91.9, MCH 29.5, MCHC 32.1 D, RDW Std Deviation 50.6 H, RDW Coeff of Casper 14.9 H, Plt Count 185, MPV 9.5, Immature Gran % (Auto) 0.500, Neut % (Auto) 64.4, Lymph % (Auto) 15.2 L , Twiggs % (Auto) 12.2 H, Eos % (Auto) 7.4 H, Baso % (Auto) 0.3, Absolute Neuts (auto) 3.8, Absolute Lymphs (auto) 0.90, Nucleated RBC % 0, Sodium 137, P otassium 5.2 H, Chloride 103, Carbon Dioxide 25.8, Anion Gap 8, BUN 23 H, Creatinine 1.13, Estim Creat Clear Calc 60.46, Est GFR (MDRD) Non-Af 49 L, B UN/Creatinine Ratio 20.3 H, Glucose 108 H, Calcium 9.5 Rhythm Strip Rhythm Strip: Sinus Rhythm Rate: 80 Ectopy: None Physical Exam Narrative General: Alert, Oriented x3, Cooperative, No apparent distress HEENT: Atraumatic, PERRLA, EOMI, Normocephalic Oral: Moist Mucosa Neck: Supple, No JVD Lungs: Diminished, Normal air movement, No rhonchi, No wheeze, No rales Cardiovascular: Regular rate, Regular Rhythm, Normal S1, Normal S2, No murmurs, left chest port Abdomen: Soft, Non Tender, Non-Distended, No Hepato-splenomegaly Extremities: No edema, Capillary Refill Less than 3 Seconds Skin: No rashes, No breakdown Musculoskeletal: No Tenderness to Palpation of Joints or Extremities Neurological: No focal neurological deficits, moves all extremities Psych/Mental Status: Normal Affect, Appropriate Assessment & Plan Assessment/Plan (1) Recurrent severe hypoglycemia: PLAN: Plan 1. Hypoglycemic episodes with mild creatinine elevation and hyperkalemia/DM2 with diabetic neuropathy ?She is on glimepiride which will be discontinued on discharge as this is likely causing her hypoglycemic episodes recently ? Would also recommend decreasing her metformin to 500 mg p.o. twice daily ? Her confusion is resolved also with the cessation of her morphine, will have her ambulate with her sister who is the one who takes care of her at home to see if she still feels uncomfortable taking her home ? Palliative care has been consulted appreciate their assistance ? Potassium is improving, and creatinine is slightly elevated but not in the range for an JACY ? A1c of 6.7 ? Continue with sliding scale insulin with Accu-Cheks 2. Stage III endometrial cancer with cancer related pain and deteriorating functional status ? Palliative care consulted. ? Will hold her morphine if she is not having significant pain as this can also lead to some of her confusion 3. Chronic HFrEF/CAD/essential HTN/HLD ? History of mild HFrEF suspected secondary to chemotherapy treatment ? Last echo in 04/2023 showed EF 45%, mild concentric LV hypertrophy, mild global LV dysfunction ? Continue home aspirin, statin and Coreg. Will hold home torsemide and valsartan for now given mild creatinine elevation as above. 4. COPD with chronic hypoxic respiratory failure ? Stable on home 2 L nasal cannula on admit ? Not in acute exacerbation, continue home inhalers. DVT: Heparin Charges/Coding Visit Charges Inpatient E&M: 96686 Subs Hosp L2
[2024-12-30] MEDS: 0.9% Saline Lock 10 ML Syringe IV (20:41)
[2024-12-31] VITALS (8 sets, daily range): BP systolic 143–165; BP diastolic 79–95; PULSE 63–88; RESP 14–18; TEMP 36.1–36.9; O2SAT 94–98
[2024-12-31 04:52] LABS: Anion Gap 8 (5-15); BUN 16 mg/dL (4-19); BUN/Creat Ratio 15.7 RATIO (10-20); Calcium,Total 9.4 mg/dL (7.6-11.0); Carbon Dioxide 26.5 mmol/L (21.0-32.0); Chloride 104 mmol/L (98-108); Estimated Creatinine Clearance 66.98 ml/min (50-250); Glucose 138 mg/dL (70-99); Potassium 5.2 mmol/L (3.3-5.1)
--- NOTE | 2024-12-31 10:00 | PN.HOSP_ITS ---
Subjective Subjective Doing well, no issues overnight Objective Data Objective Data Vital Signs: Vital Signs Temp Pulse Resp BP Pulse Ox O2 Del Method O2 Flow Rate 97 F L 67 18 155/95 H 98 Nasal Cannula 2 12/31/24 04:30 12/31/24 09:09 12/31/24 09:09 12/31/24 04:30 12/31/24 04:30 12/31/24 08:22 12/31/24 08:22 Oxygen Flow Rate (L/min) 2 Oxygen Delivery Method Nasal Cannula Weight: 311 lb 9.6 oz Body Mass Index (BMI) 47.3 Intake & Output: Intake and Output for Last 24 Hours 12/30/24 12/31/24 01/01/25 03:59 02:59 03:59 Intake Total 500 / 500 950 / 950 Output Total 1900 / 1900 1200 / 1200 Balance -1400 / -1400 -250 / -250 Lab / Micro Data 12/30/24 06:59 12/31/24 04:18 Labs: Laboratory Results - last 24 hr 12/30/24 06:57: POC Glucose 103 12/30/24 12:06: POC Glucose 217 H 12/30/24 17:01: POC Glucose 175 H 12/30/24 20:35: POC Glucose 172 H 12/31/24 04:18: Sodium 139, Potassium 5.2 H, Chloride 104, Carbon Dioxide 26.5, Anion Gap 8, BUN 16, Creatinine 1.02, Estim Creat Clear Calc 66.98, Est GFR (MDRD) Non-Af 56 L, BUN/Creatinine Ratio 15.7, Glucose 138 H, Calcium 9.4 Rhythm Strip Rhythm Strip: Sinus Rhythm Rate: 80 Ectopy: None Physical Exam Narrative General: Alert, Oriented x3, Cooperative, No apparent distress HEENT: Atraumatic, PERRLA, EOMI, Normocephalic Oral: Moist Mucosa Neck: Supple, No JVD Lungs: Diminished, Normal air movement, No rhonchi, No wheeze, No rales Cardiovascular: Regular rate, Regular Rhythm, Normal S1, Normal S2, No murmurs, left chest port Abdomen: Soft, Non Tender, Non-Distended, No Hepato-splenomegaly Extremities: No edema, Capillary Refill Less than 3 Seconds Skin: No rashes, No breakdown Musculoskeletal: No Tenderness to Palpation of Joints or Extremities Neurological: No focal neurological deficits, moves all extremities Psych/Mental Status: Normal Affect, Appropriate Assessment & Plan Assessment/Plan (1) Recurrent severe hypoglycemia: PLAN: Plan 1. Hypoglycemic episodes with mild creatinine elevation and hyperkalemia/DM2 with diabetic neuropathy ?She is on glimepiride which will be discontinued on discharge as this is likely causing her hypoglycemic episodes recently ? Would also recommend decreasing her metformin to 500 mg p.o. twice daily ? Her confusion is resolved however family would still like her to get therapy at SNF ? Palliative care has been consulted appreciate their assistance ? Potassium is improving, and creatinine is slightly elevated but not in the range for an JACY ? A1c of 6.7 ? Continue with sliding scale insulin with Accu-Cheks 2. Stage III endometrial cancer with cancer related pain and deteriorating functional status ? Palliative care consulted. ? Will hold her morphine if she is not having significant pain as this can also lead to some of her confusion 3. Chronic HFrEF/CAD/essential HTN/HLD ? History of mild HFrEF suspected secondary to chemotherapy treatment ? Last echo in 04/2023 showed EF 45%, mild concentric LV hypertrophy, mild global LV dysfunction ? Continue home aspirin, statin and Coreg. Will hold home torsemide and valsartan for now given mild creatinine elevation as above. 4. COPD with chronic hypoxic respiratory failure ? Stable on home 2 L nasal cannula on admit ? Not in acute exacerbation, continue home inhalers. DVT: Heparin Charges/Coding Visit Charges Inpatient E&M: 29245 [facility] [place] Hosp L1
[2024-12-31] MEDS: Heparin Injection (Vial) 5,000 UNIT/ML VIAL 5000 UNIT SC ×2 (10:19→22:16)
[2024-12-31] MEDS: Aspirin E.C. 81 MG Tablet PO (10:20)
[2024-12-31] MEDS: Albuterol 2.5 MG/3 ML VIAL.NEB. INHALATION ×2 (14:34→18:36)
[2024-12-31] MEDS: Budesonide Respules 0.5 MG/2 ML AMPUL.NEB. INHALATION (18:36)
[2025-01-01] MEDS: MELATONIN 3 MG TABLET PO (01:18)
[2025-01-01 05:00] VITALS: BP 173/79; PULSE 80; RESP 15; TEMP 36.6; O2SAT 97
[2025-01-01 07:34] LABS: Hematocrit 32.3 % (37-47); Hemoglobin 10.6 g/dL (12.0-15.0); Immature Granulocytes Count 0.030 X10^3/uL (0.0-0.0); Mean Corp Hgb Conc 32.8 g/dL (32-36); Mean Corpuscular Volume 92.0 fL (81-99); Mean Platelet Vol. 9.2 fl (6.2-12.0); NRBC Flagged by Analyzer 0 % (0-5); Platelet Count 167 K/mm3 (150-450); RBC Distribution Width CV 14.9 % (11.6-14.6); RBC Distribution Width SD 50.1 fl (35.1-43.9); Red Blood Count 3.51 M/mm3 (4.2-5.4); White Blood Count 5.3 K/mm3 (4.4-11.0)
[2025-01-01 07:35] VITALS: PULSE 83; RESP 16; O2SAT 97
[2025-01-01] MEDS: Budesonide Respules 0.5 MG/2 ML AMPUL.NEB. INHALATION (07:35)
[2025-01-01] MEDS: Albuterol 2.5 MG/3 ML VIAL.NEB. INHALATION (07:35)
[2025-01-01 08:40] LABS: Anion Gap 9 (5-15); BUN 11 mg/dL (4-19); BUN/Creat Ratio 12.6 RATIO (10-20); Calcium,Total 9.3 mg/dL (7.6-11.0); Carbon Dioxide 27.8 mmol/L (21.0-32.0); Chloride 102 mmol/L (98-108); Estimated Creatinine Clearance 77.64 ml/min (50-250); Glucose 148 mg/dL (70-99); Potassium 4.5 mmol/L (3.3-5.1)
[2025-01-01] MEDS: Aspirin E.C. 81 MG Tablet PO (08:59)
[2025-01-01] MEDS: Heparin Injection (Vial) 5,000 UNIT/ML VIAL 5000 UNIT SC (09:00)
--- NOTE | 2025-01-01 09:05 | CASEMGMT ---
Discharge Planning Updates sent via [facility] to [place]. Precert remains pending. Carole Marin DC Planning Asst.
--- NOTE | 2025-01-01 09:22 | CASEMGMT ---
[facility] has obtained auth to admit. Pt will need a covid test. SW updated. Carole Marin DC Planning Asst
--- NOTE | 2025-01-01 09:51 | CASEMGMT ---
Social Work Precert has been obtained for [facility]. The physician, nurse, patient and the sister have been notified. PASSR form completed in [facility]. Family is providing transportation. SW met with pt and they are agreeable to discharge plan as stated. ____ Disposition: Pt discharge to [facility], skilled level care SERGIO Stroud
--- NOTE | 2025-01-01 10:22 | TREXTCAR_ITS ---
Diet Diet Order/Speech Therapy: INPATIENT Hospital Diet / Speech Therapy Order(s) 12/27/24 15:38 Diet: Cardiac - Heart Healthy Food consistency:: Regular Liquid Consistency:: Regular/Thin Dietary Modifications:: Consistent Carbohydrate Routine Orders/Code Status Routine Lab Work: CBC and BMP Code Status: DNRCC-A DC O2, CPAP, BIPAP needs Home O2 Discharge instructions: No Therapies Physical Therapy: Eval and Treat Occupational Therapy: Eval and Treat Problem/Diagnosis (1) Recurrent severe hypoglycemia: Status: Acute Code(s): E16.2 - Hypoglycemia, unspecified Plan 1. Hypoglycemic episodes with mild creatinine elevation and hyperkalemia/DM2 with diabetic neuropathy ?She is on glimepiride which will be discontinued on discharge as this is likely causing her hypoglycemic episodes recently ? Would also recommend decreasing her metformin to 500 mg p.o. twice daily ? Her confusion is resolved however family would still like her to get therapy at SNF ? Palliative care has been consulted appreciate their assistance ? Potassium is improving, and creatinine is slightly elevated but not in the range for an JACY ? A1c of 6.7 ? Continue with sliding scale insulin with Accu-Cheks 2. Stage III endometrial cancer with cancer related pain and deteriorating functional status ? Palliative care consulted. ? Will hold her morphine if she is not having significant pain as this can also lead to some of her confusion 3. Chronic HFrEF/CAD/essential HTN/HLD ? History of mild HFrEF suspected secondary to chemotherapy treatment ? Last echo in 04/2023 showed EF 45%, mild concentric LV hypertrophy, mild global LV dysfunction ? Continue home aspirin, statin and Coreg. Will hold home torsemide and valsartan for now given mild creatinine elevation as above. 4. COPD with chronic hypoxic respiratory failure ? Stable on home 2 L nasal cannula on admit ? Not in acute exacerbation, continue home inhalers. DVT: Heparin Allergies/Procedures Done in Hospital Allergies No Known Allergies Allergy (Verified 04/27/24 16:18) Procedures: None Type of Care/Length of Stay Estimated LOS: Convalescent Care Less Than 30 days Type of Care Needed: Skilled Rehab Potential: Good Prognosis: Good Additional Orders/Day of Discharge Day of Discharge: 01/01/25 Discharge Plan Admission Admit Date/Time: 12/27/24 14:44 Attending Provider: Eddie Vera Primary Care Provider: Deven Van Consulting Providers: Ramy Anglin; Taniya Castaneda Instructions Patient Instructions: ED Hypoglycemia Oral Diabetic Med Discharge Orders/Prescriptions Prescriptions: Continued amitriptyline 50 mg tablet 50 mg PO QHS gabapentin 100 mg capsule 100 mg PO BID Patient Comments: PT STATES ONLY TAKES ONE CAPSULE TWICE A DAY ( OF 04/27/24) atorvastatin 40 mg tablet 40 mg PO QHS Slow-Mag 71.5 mg tablet,delayed release (DR/EC) 71.5 mg PO BID ondansetron HCl 8 mg tablet 8 mg PO Q12H PRN (Reason: NAUSEA ) silver sulfadiazine 1 % cream 1 applic topical DAILY PRN (Reason: BURN) Rx Instructions: APPLY ONE APPLICATION ONCE DAILY NEEDED TO HAND acetaminophen [Acetaminophen Extra Strength] 500 mg tablet 500 mg PO Q6H PRN (Reason: PAIN ) aspirin [Adult Low Dose Aspirin] 81 mg tablet,delayed release (DR/EC) 81 mg PO DAILY carvedilol 3.125 mg tablet 6.25 mg PO BID valsartan 80 mg tablet 160 mg PO QHS morphine 15 mg tablet extended release 15 mg PO Q12.TCU fluticasone furoate-vilanterol 100-25 mcg/dose blister with device 1 inh INHALATION Q24H Patient Comments: [NO ORIGINAL SIG] Changed metformin 500 MG tablet 500 mg PO BID 30 Days Qty: 60 0RF Held torsemide 20 mg tablet 20 mg PO DAILY Hold Instructions: Resume on 12/30/24. Discontinued glimepiride 4 mg tablet 4 mg PO BID valsartan 40 mg tablet 80 mg PO QHS Referrals / Follow Up: Deven Van MD [Primary Care Provider, [facility]] - Within 1 Week Disposition Disposition (needs filled in before D/C Order can be placed): Nursing Home Facility
--- NOTE | 2025-01-01 10:41 | CASEMGMT ---
Social Work SW called the nurse and informed her the family will be about 1200pm to transport patient to the SNF. CLAIR scanned signed med list through [facility] to [place]. SERGIO Stroud
--- NOTE | 2025-01-01 11:12 | CASEMGMT ---
Discharge Planning Discharge orders, signed med list, covid results, and transport time sent via [facility] to [place]. Pts family will transport at noon. Carole Marin DC Planning Asst.
--- NOTE | 2025-01-01 11:31 | DS.PCM_ITS ---
Providers Date of Admission: 12/27/24 Primary Care Physician: Dr. Deven Van MD Consultations 12/28/24 00:19 Consult: Inpatient Palliative Care Routine Consulting Provider: Taniya Castaneda Reason for Consult: symptom mgmt for cancer related pain, code status discussion EMERGENT Consult: No MD Notified: Yes Date Notified: 12/28/24 Time Notified: 08:00 Method of Notification: Text Reason For Visit: HYPOGLYCEMIA, MILD HYPERKALEMIA Diagnosis Discharge Diagnosis (1) Recurrent severe hypoglycemia: Status: Acute Code(s): E16.2 - Hypoglycemia, unspecified Medications at Discharge Home Medications amitriptyline 50 mg tablet 50 mg PO QHS DEPRESSION 12/23/22 atorvastatin 40 mg tablet 40 mg PO QHS CHOLESTEROL 12/23/22 gabapentin 100 mg capsule 100 mg PO BID NERVE PAIN 12/23/22 magnesium chloride 71.5 mg (magnesium chloride) tablet,delayed release (Slow- Mag) 71.5 mg PO BID SUPPLEMENT 12/29/22 ondansetron HCl 8 mg tablet 8 mg PO Q12H PRN NAUSEA 12/29/22 aspirin 81 mg tablet,delayed release (Adult Low Dose Aspirin) 81 mg PO DAILY HEART HEALTH 01/24/23 acetaminophen 500 mg tablet (Acetaminophen Extra Strength) 500 mg PO Q6H PRN PAIN 03/10/23 silver sulfadiazine 1 % topical cream 1 applic topical DAILY PRN BURN 03/10/23 carvedilol 3.125 mg tablet 6.25 mg PO BID 12/17/23 fluticasone furoate 100 mcg-vilanterol 25 mcg/dose inhalation powder 1 inh inhalation Q24H 04/27/24 torsemide 20 mg tablet 20 mg PO DAILY 12/27/24 Held on 12/28/24. Instructions: Resume on 12/30/24. valsartan 80 mg tablet 160 mg PO QHS 12/27/24 metformin 500 mg tablet 500 mg PO BID DIABETES 30 days #60 tabs 12/28/24 Hospital Course Operations None Procedures None Summary of Care Provided Minutes Spent on Discharge: 32 Hospital Course: Per HPI: PRICILA HOOKER, is a 79 F who presented to [facility] ED on 12/27/2024 with altered mental status. Patient lives at home with her sister. Medical history significant for stage III endometrial cancer, type 2 diabetes mellitus with neuropathy, chronic HFrEF, and mild chronic debility. Patient follows with Dr. Hernandes; reviewed last office note in [facility] from 12/06. She was diagnosed with stage III endometrial cancer back in 2022. She initially completed chemotherapy with carboplatin, paclitaxel and pembrolizumab. She received 5 cycles of pembrolizumab but it was then held due to worsening neuropathy and general decline. Dr. Hernandes noted that patient was having further general decline as well as worsening abdominal pain suspected secondary to cancer. He recently referred the patient to palliative care and patient and daughter notes that they have established with palliative care in the past few weeks. Dr. Hernandes also noted that he would obtain a repeat CT chest as there was recently concern for lung metastases, and if the CT chest was worse he would recommend getting hospice care involved. Unclear if the CT scans been done. Chest x-ray in the ED today showed increased markings of the lung bases suggestive of bibasilar atelectasis as well as a questionable 1.8 centimeter nodule in the medial aspect of the right middle lobe. Patient sister notes that over the past several days patient has been more weak and debilitated than normal. Notably patient did start taking extended release p.o. morphine twice daily and sister thought it may be secondary to the morphine. Does not check her sugars regularly baseline. This morning patient was more altered and had a small fall so they called EMS. She was found to have hypoglycemia with initial blood glucose in the 30s. Was given an IV D10 bolus by EMS with improvement in blood sugar to the 180s. They noted that patient regained consciousness quickly after the D10 administration. However, on arrival to the ED here her sugar had again dropped to the 40s and she was given another IV D10 bolus with improvement in her blood sugar. Labs were notable for mild hyperkalemia with potassium 5.5. No EKG changes were noted. Given worsening debility with multiple hypoglycemia episodes and mild hyperkalemia, hospitalist was contacted for admission. I saw the patient at bedside in the ED, sister was present. Patient was laying back in bed and making appropriate eye contact, and she answered a few questions for me. However, she largely deferred to her sister with answering questions. Sister notes that she has been the primary micrographics services supervisor for the patient for the past few years. Notes that she has seen some decline in functional status of the patient but the mentation change today was concerning to her. Patient has never had hypoglycemia like this before that she is aware of. They note that her medication regimen for diabetes has been stable for quite a while. No other acute concerns currently. Will be admitted for further management. Hospital Course: 1. Hypoglycemic episodes with mild creatinine elevation and hyperkalemia secondary to oral diabetic medications/DM2 with diabetic neuropathy?79-year-old female presented to the hospital with weakness and confusion. She was found to be significantly hypoglycemic so her home medications were discontinued. There is also some concern that this could have been narcotic related as she was on extended release morphine 15 mg p.o. twice daily. Palliative care was consulted and discontinued her morphine. She had significant improvement in her symptoms and her confusion completely resolved. She was a little bit weak and her sister felt that she would do better if she went to a halfway for a little bit prior to coming home. Pre-CERT was obtained and I discussed with her the plan for discharge and she expressed understanding of the risks and benefits of going to the halfway and she would like to go today. I did discontinue her glimepiride and she can likely restart her torsemide tomorrow after discharge as her renal function improved to 0.88. I also decreased her metformin dose in half to 500 mg p.o. twice daily. 2. Stage III endometrial cancer with cancer related pain and deteriorating functional status, chronic systolic CHF, coronary artery disease, essential hypertension, hyperlipidemia, COPD with chronic hypoxic respiratory failure 2 L nasal cannula are all chronic medical conditions which complicate her care. Her home medications were continued where appropriate Physical Exam Narrative General: Alert, Oriented x3, Cooperative, No apparent distress HEENT: Atraumatic, PERRLA, EOMI, Normocephalic Oral: Moist Mucosa Neck: Supple, No JVD Lungs: Diminished, Normal air movement, No rhonchi, No wheeze, No rales Cardiovascular: Regular rate, Regular Rhythm, Normal S1, Normal S2, No murmurs, left chest port Abdomen: Soft, Non Tender, Non-Distended, No Hepato-splenomegaly Extremities: Nonpitting edema, Capillary Refill Less than 3 Seconds Skin: No rashes, No breakdown Musculoskeletal: No Tenderness to Palpation of Joints or Extremities Neurological: No focal neurological deficits, moves all extremities Psych/Mental Status: Normal Affect, Appropriate Weight / BMI Weight Weight: 311 lb 9.6 oz Body Mass Index (BMI) 47.3 ABG / Lab / Microbiology Data 01/01/25 07:12 01/01/25 07:12 Laboratory: Laboratory Results - last 24 hr 12/31/24 11:25: POC Glucose 187 H 12/31/24 16:55: POC Glucose 180 H 12/31/24 22:32: POC Glucose 150 H 01/01/25 06:30: POC Glucose 142 H 01/01/25 07:12: WBC 5.3, RBC 3.51 L, Hgb 10.6 L, Hct 32.3 L, MCV 92.0, MCH 30.2, MCHC 32.8, RDW Std Deviation 50.1 H, RDW Coeff of Casper 14.9 H, Plt Count 167, MPV 9.2, Immature Gran % (Auto) 0.600, Neut % (Auto) 62.5, Lymph % (Auto) 16.2 L, M haley % (Auto) 10.5 H, Eos % (Auto) 9.6 H, Baso % (Auto) 0.6, Absolute Neuts (auto) 3.3, Absolute Lymphs (auto) 0.86, Nucleated RBC % 0, Sodium 139, Potassium 4.5, Chloride 102, Carbon Dioxide 27.8, Anion Gap 9, BUN 11, Creatinine 0.88, Estim Creat Clear Calc 77.64, Est GFR (MDRD) Non-Af 67, BUN/Creatinine Ratio 12.6, Glucose 148 H, Calcium 9.3 Microbiology: Microbiology 01/01/25 09:30 Nasal Secretion SARS-CoV-2 Antigen (Rapid) - Final D/C Instructions Call your doctor if you observe: Fever of 101 or Higher, Shortness of breath, Dizziness, Fainting spells, Swelling in the ankles, Chest pain and Increased palpitations (irregular heartbeat) DC O2, CPAP, BIPAP Needs Home O2 Discharge instructions: No Meaningful Use Info Meaningful Use Meaningful Use Diagnoses (Choose all that apply): None applicable Discharge Plan Admission Admit Date/Time: 12/27/24 14:44 Attending Provider: Eddie Vera Primary Care Provider: Deven Van Consulting Providers: Ramy Anglin; Taniya Castaneda Instructions Patient Instructions: ED Hypoglycemia Oral Diabetic Med Discharge Orders/Prescriptions Prescriptions: Continued amitriptyline 50 mg tablet 50 mg PO QHS gabapentin 100 mg capsule 100 mg PO BID Patient Comments: PT STATES ONLY TAKES ONE CAPSULE TWICE A DAY ( OF 04/27/24) atorvastatin 40 mg tablet 40 mg PO QHS Slow-Mag 71.5 mg tablet,delayed release (DR/EC) 71.5 mg PO BID ondansetron HCl 8 mg tablet 8 mg PO Q12H PRN (Reason: NAUSEA ) silver sulfadiazine 1 % cream 1 applic topical DAILY PRN (Reason: BURN) Rx Instructions: APPLY ONE APPLICATION ONCE DAILY NEEDED TO HAND acetaminophen [Acetaminophen Extra Strength] 500 mg tablet 500 mg PO Q6H PRN (Reason: PAIN ) aspirin [Adult Low Dose Aspirin] 81 mg tablet,delayed release (DR/EC) 81 mg PO DAILY carvedilol 3.125 mg tablet 6.25 mg PO BID valsartan 80 mg tablet 160 mg PO QHS fluticasone furoate-vilanterol 100-25 mcg/dose blister with device 1 inh INHALATION Q24H Patient Comments: [NO ORIGINAL SIG] Changed metformin 500 MG tablet 500 mg PO BID 30 Days Qty: 60 0RF Held torsemide 20 mg tablet 20 mg PO DAILY Hold Instructions: Resume on 12/30/24. Discontinued glimepiride 4 mg tablet 4 mg PO BID morphine 15 mg tablet extended release 15 mg PO Q12.TCU valsartan 40 mg tablet 80 mg PO QHS Referrals / Follow Up: Deven Van MD [Primary Care Provider, [facility]] - Within 1 Week Disposition Disposition (needs filled in before D/C Order can be placed): Shelter Facility Charges/Coding Visit Charges Inpatient E&M: 87948 Disch Hosp >30min
--- NOTE | 2025-01-01 11:36 | PHA.DC_ITS ---
Pharmacy [facility] Med Reconciliation Pharmacy Service has performed discharge medication reconciliation for this patient. The patient's discharge medication list was reviewed for discrepancies and discrepancies were resolved. Medications at Discharge Home Medications amitriptyline 50 mg tablet 50 mg PO QHS DEPRESSION 12/23/22 atorvastatin 40 mg tablet 40 mg PO QHS CHOLESTEROL 12/23/22 gabapentin 100 mg capsule 100 mg PO BID NERVE PAIN 12/23/22 magnesium chloride 71.5 mg (magnesium chloride) tablet,delayed release (Slow- Mag) 71.5 mg PO BID SUPPLEMENT 12/29/22 ondansetron HCl 8 mg tablet 8 mg PO Q12H PRN NAUSEA 12/29/22 aspirin 81 mg tablet,delayed release (Adult Low Dose Aspirin) 81 mg PO DAILY HEART HEALTH 01/24/23 acetaminophen 500 mg tablet (Acetaminophen Extra Strength) 500 mg PO Q6H PRN PAIN 03/10/23 silver sulfadiazine 1 % topical cream 1 applic topical DAILY PRN BURN 03/10/23 carvedilol 3.125 mg tablet 6.25 mg PO BID 12/17/23 fluticasone furoate 100 mcg-vilanterol 25 mcg/dose inhalation powder 1 inh inhalation Q24H 04/27/24 morphine 15 mg tablet,extended release 15 mg PO Q12.TCU 12/27/24 torsemide 20 mg tablet 20 mg PO DAILY 12/27/24 Held on 12/28/24. Instructions: Resume on 12/30/24. valsartan 80 mg tablet 160 mg PO QHS 12/27/24 metformin 500 mg tablet 500 mg PO BID DIABETES 30 days #60 tabs 12/28/24
== END 2025-01-01 12:33 | disposition skilled nursing facility (03) ==
LOC: ED 14:21 → PCU 14:50
PROVIDERS: Admitting Provider Hospitalist; Emergency Provider Emergency Medicine; PCP Family Medicine; Visit Provider Family Medicine
DX: E11.649 Type 2 diabetes mellitus with hypoglycemia without coma (principal); J96.11 Chronic respiratory failure with hypoxia; I50.22 Chronic systolic (congestive) heart failure; I13.0 Hypertensive heart and chronic kidney disease with heart failure and stage 1 through stage 4 chronic kidney disease, or unspecified chronic kidney disease; J44.9 Chronic obstructive pulmonary disease, unspecified; I42.8 Other cardiomyopathies; Z68.42 Body mass index [BMI] 45.0-49.9, adult; E66.01 Morbid (severe) obesity due to excess calories; C54.1 Malignant neoplasm of endometrium; E11.40 Type 2 diabetes mellitus with diabetic neuropathy, unspecified; E11.22 Type 2 diabetes mellitus with diabetic chronic kidney disease; N18.30 Chronic kidney disease, stage 3 unspecified; N17.9 Acute kidney failure, unspecified; I25.10 Atherosclerotic heart disease of native coronary artery without angina pectoris; G89.3 Neoplasm related pain (acute) (chronic); E78.00 Pure hypercholesterolemia, unspecified; E87.5 Hyperkalemia; Z79.84 Long term (current) use of oral hypoglycemic drugs; Z79.899 Other long term (current) drug therapy; Z87.891 Personal history of nicotine dependence; Z66 Do not resuscitate
CPT/HCPCS: 36415; 36591; 71045; 80048; 80076; 81001; 82803; 82962; 83036; 84132; 84484; 85025; 85027; 85610; 87811; 93005; 94640; 94668; 96360; 96361; 96372; 97116; 97162; 97167; 97530; 97535; 99221; 99285; P9612; A4216; G0378

== ENCOUNTER 2025-01-08 17:15 | Inpatient (IN) | payer MEDICARE, SELFPAY ==
[2025-01-08] VITALS (12 sets, daily range): BP systolic 121–160; BP diastolic 60–130; PULSE 80–94; RESP 12–23; TEMP 36.8–37.4; O2SAT 88–97
--- NOTE | 2025-01-08 18:18 | EX.ED.DYSGE1 ---
HPI History of Present Illness Chief Complaint: Alt LOC Informant: patient and family Narrative Narrative: 79-year-old female history of metastatic endometrial cancer presenting with altered mental status and hyperglycemia. Family who is the primary caregiver states that palliative care follows with them. He states that today she seemed more lethargic and confused than baseline and they were unable to make their follow-up appointment with oncology. They checked her blood sugar and it was in the 350 range. Since her last hospitalization when she was hospitalized for hypoglycemia and having her metformin and glyburide adjusted her blood sugar's have been around 250 each day. Family noted that earlier today her pulse ox was in the 60s but noted that her oxygen was cut off because it was underneath furniture like. Family states that they are to review the CT chest with oncology to see how the cancer has changed which they have the results with them. This showed presumed metastasis and right-sided pleural effusion. Family notes a decrease in urination. No change in swelling. They note decreased appetite. No reported fever.. PFSH PFSH Medical History Hypomagnesemia Former smoker Endometrial cancer, FIGO stage IIIC Pancytopenia History of cancer of uterus Obesity Dyslipidemia Coronary artery disease Nonischemic cardiomyopathy CKD (chronic kidney disease) stage 3, GFR 30-59 ml/min Endometrial cancer GERD (gastroesophageal reflux disease) Benign neoplasm of colon Cholecystitis Hypercholesteremia Neuropathy Diabetes Hypertension Chest pain Home Medications Medication Instructions Recorded Last Taken Type amitriptyline 50 mg tablet 50 mg PO QHS DEPRESSION 12/23/22 03/09/23 History atorvastatin 40 mg tablet 40 mg PO QHS CHOLESTEROL 12/23/22 03/09/23 History gabapentin 100 mg capsule 100 mg PO BID NERVE PAIN 12/23/22 03/10/23 History magnesium chloride 71.5 mg 71.5 mg PO BID SUPPLEMENT 12/29/22 03/10/23 History (magnesium chloride) tablet,delayed release (Slow-Mag) aspirin 81 mg tablet,delayed 81 mg PO DAILY HEART HEALTH 01/24/23 03/10/23 History release (Adult Low Dose Aspirin) acetaminophen 500 mg tablet 500 mg PO Q6H PRN PAIN 03/10/23 Unknown History (Acetaminophen Extra Strength) carvedilol 3.125 mg tablet 6.25 mg PO BID 12/17/23 Unknown History torsemide 20 mg tablet 20 mg PO DAILY 12/27/24 Unknown History metformin 500 mg tablet 500 mg PO BID DIABETES 30 days 12/28/24 Unknown Rx #60 tabs amlodipine 10 mg tablet 10 mg PO DAILY 01/08/25 Unknown History fluticasone 250 mcg-salmeterol 50 1 ea inhalation BID 01/08/25 Unknown History mcg/dose blistr powdr for inhalation glimepiride 4 mg tablet 4 mg PO BID 01/08/25 Unknown History morphine 15 mg tablet,extended 15 mg PO Q12.TCU 01/08/25 Unknown History release morphine 15 mg tablet,extended 15 mg PO Q12.TCU 01/08/25 Unknown History release oxycodone 10 mg tablet 10 mg PO Q6H PRN PRN pain 01/08/25 Unknown History valsartan 80 mg tablet 160 mg PO QHS 01/08/25 Unknown History Allergy/AdvReac Type Severity Reaction Status Date / Time No Known Allergies Allergy Verified 04/27/24 16:18 Family History Father Myocardial infarction Mother Heart disease irregular heart rate Colon cancer Surgical History History of cholecystectomy Hx of hysterectomy, total Hx laparoscopic cholecystectomy Hx of cataract surgery History of total left knee replacement (TKR) (~01/2011) History of total right knee replacement (TKR) (~05/11/11) Social History household members: none Smoking Status: Former smoker how long ago did patient quit smokin alcohol intake: never substance use type: does not use ROS ROS ED Constitutional Constitutional ED: Denies chills, fever(s) or weight loss Eyes Eyes: Denies change in vision or diplopia ENT ENT ED: Denies ear pain, rhinorrhea or sore throat Cardiovascular Cardiovascular: Denies chest pain, orthopnea, palpitations or racing heartbeat Respiratory/Chest Respiratory/Chest: Reports dyspnea and dyspnea on exertion; Denies cough or orthopnea Gastrointestinal Gastrointestinal: Reports abdominal pain and other Details: Decreased oral intake ; Denies diarrhea, nausea or vomiting Genitourinary Genitourinary ED: Reports other Details: Decreased urination ; Denies dysuria, hematuria or urinary frequency Musculoskeletal Musculoskeletal: Denies arthralgias or myalgias Integumentary Denies abscess or rash Neurologic Neurologic: Reports other Details: Confusion ; Denies headache(s) or weakness Psychiatric Psychiatric: Denies anxiety, depression, suicidal ideation or suicidal thoughts Endocrine Endocrinology: Denies polydipsia, polyphagia or polyuria Allergic/Immunologic Allergic/Immunologic ED: Denies mouth swelling, tongue swelling or urticaria EXAM Physical Exam Narrative Exam Narrative: Patient is awake and alert and answer some questioning. Family answers most of the questions for her. She speaks rather slow and with minimal words. Const Vital Signs: 01/08/25 17:17 01/08/25 17:17 01/08/25 17:52 Temperature 98.3 F 98.3 F Temperature Source Oral Oral Pulse Rate 80 80 Respiratory Rate 17 14 Respiratory Effort Non-Labored Respiratory Pattern Normal Blood Pressure 154/64 H 154/64 H Blood Pressure Mean 94 94 Pulse Ox 88 91 Oxygen Delivery Method Nasal Cannula Nasal Cannula Oxygen Flow Rate (L/min) 2 4 01/08/25 18:10 01/08/25 18:41 01/08/25 19:00 Temperature Temperature Source Pulse Rate 80 82 Respiratory Rate 19 H 19 H Respiratory Effort Respiratory Pattern Blood Pressure 125/70 H Blood Pressure Mean 88 Pulse Ox 91 91 95 Oxygen Delivery Method Nasal Cannula Oxygen Flow Rate (L/min) 2 2 01/08/25 19:27 01/08/25 20:00 01/08/25 20:54 Temperature Temperature Source Pulse Rate 82 82 Respiratory Rate 16 15 Respiratory Effort Respiratory Pattern Normal Blood Pressure 136/60 H Blood Pressure Mean 82 Pulse Ox 92 88 Oxygen Delivery Method Nasal Cannula Nasal Cannula Oxygen Flow Rate (L/min) 5 5 01/08/25 20:55 01/08/25 21:00 01/08/25 22:00 Temperature Temperature Source Pulse Rate 86 94 Respiratory Rate 12 23 H Respiratory Effort Respiratory Pattern Blood Pressure 160/130 H 142/84 H Blood Pressure Mean 142 100 Pulse Ox 91 92 95 Oxygen Delivery Method Nasal Cannula Nasal Cannula Nasal Cannula Oxygen Flow Rate (L/min) 6 6 6 01/08/25 23:00 01/08/25 23:46 Temperature 99.3 F H Temperature Source Pulse Rate 91 89 Respiratory Rate 14 19 H Respiratory Effort Respiratory Pattern Blood Pressure 121/63 H 127/69 H Blood Pressure Mean 82 88 Pulse Ox 88 97 Oxygen Delivery Method High Flow Oxygen Flow Rate (L/min) 7 Positive well nourished, well developed and obese General Appearance ED: well developed and NAD Nutritional Appearance: obese HEENT Reports normocephalic, head/scalp atraumatic and moist mucous membranes Eyes PERRL and EOMs intact bilaterally Neck no lymphadenopathy, supple and no JVD Resp normal respiratory effort and clear to auscultation bilaterally Auscultation: diminished lung sounds bilateral lower Cardio regular rate, regular rhythm and no murmurs GI GI Narrative: Mild diffuse tenderness. The abdomen is soft. Palpation: soft; Negative for guarding or rebound tenderness present Back/Spine no CVA tenderness and normal ROM Extremity General Extremety ED: Yes edema General Extremity: edema bilateral lower extremity Details: mild Neuro oriented x3 and CN's II-XII intact bilaterally Neuro Narrative: Alert but fatigued appearing and sounding Sensorium / Orientation: alert Motor Exam: strength 5/5 throughout Psych Mood & Affect: Negative for depressed or tearful Skin no rashes or lesions noted and no wounds MDM MDM MDM Narrative Medical decision making narrative: Differential diagnosis includes but not limited to UTI dehydration electrolyte abnormalities hyperglycemia acute kidney injury encephalopathy from multiple different sources including hepatic pneumonia pleural effusion heart failure hypoxia Over the ED course the patient's mental status seemed to be getting worse. Her white count is 12.4 hemoglobin 9.9 platelet count of 153. Sodium 131 lactic acid is normal cardiac enzymes are 37 and 39 proBNP 286 normal LFTs. Glucose 224. My independent interpretation of the chest x-ray is right moderate pleural effusion with possible pneumonia. Patient is having increased oxygen demand. Blood cultures were obtained she received Rocephin and azithromycin. Clinically the patient appears to have worsening pleural effusion compared to her most recent CT through the [facility] which the daughter shows me the report on. Prior to that there was no substantial pleural effusion on the right on her most recent chest x-ray at this institution. I am wondering if the pleural effusion is worsening due to the metastasis. Which in turn is resulting in compressive atelectasis and possible pneumonia. She received a breathing treatment. I spoke with the hospitalist who is requested a head CT and CTA of the chest. These were obtained read by radiology and reviewed by myself. Spoke with the hospitalist again and the plan of care is to admit the patient to the hospital. Please see their note for full details but there was discussion about whether or not the patient should be hospice. She was due for some pain medication she received a dose of oxycodone. History & Record Review Discussion w/independent historian: Patient and Family Additional record(s) reviewed:: Prior outpatient record and Prior ED visit Lab Data Attestation: I reviewed the patient's lab results. Labs: Laboratory Results - last 24 hr 01/08/25 01/08/25 01/08/25 18:32 19:58 20:37 WBC 12.4 H RBC 3.28 L Hgb 9.9 L Hct 30.9 L MCV 94.2 MCH 30.2 MCHC 32.0 RDW Std Deviation 54.2 H RDW Coeff of [place] 15.7 H Plt Count 153 MPV 10.2 Immature Gran % (Auto) 0.300 Neut % (Auto) 65.9 Lymph % (Auto) 9.4 L [place] % (Auto) 8.8 Eos % (Auto) 15.4 H Baso % (Auto) 0.2 Absolute Neuts (auto) 8.2 H Absolute Lymphs (auto) 1.16 Nucleated RBC % 0 PT 14.5 INR 1.1 APTT 38.2 H Sodium 131 L Potassium 4.9 Chloride 93 L Carbon Dioxide 29.6 Anion Gap 8 BUN 27 H Creatinine 1.50 H Est GFR (MDRD) Non-Af 35 L BUN/Creatinine Ratio 18.1 Glucose 224 H Lactic Acid < 1.0 Calcium 9.3 Total Bilirubin 0.34 Direct Bilirubin 0.17 AST 17 ALT 14 Alkaline Phosphatase 78 Troponin T High Sens 39 H D Troponin T Hi Sens 2 Hr 37 H NT pro BNP II 298 286 Total Protein 6.7 Albumin 3.3 L Globulin 3.4 Urine Color Urine Clarity Urine pH Ur Specific [place] Urine Protein Urine Glucose (UA) Urine Ketones Urine Occult Blood Urine Nitrite Urine Bilirubin Urine Urobilinogen Ur Leukocyte Esterase Urine RBC Urine WBC Ur Squamous Epith Cells Ur Renal Epithelial Cell Amorphous Sediment Urine Bacteria Hyaline Casts Urine Mucus 01/08/25 22:41 WBC RBC Hgb Hct MCV MCH MCHC RDW Std Deviation RDW Coeff of [place] Plt Count MPV Immature Gran % (Auto) Neut % (Auto) Lymph % (Auto) [place] % (Auto) Eos % (Auto) Baso % (Auto) Absolute Neuts (auto) Absolute Lymphs (auto) Nucleated RBC % PT INR APTT Sodium Potassium Chloride Carbon Dioxide Anion Gap BUN Creatinine Est GFR (MDRD) Non-Af BUN/Creatinine Ratio Glucose Lactic Acid Calcium Total Bilirubin Direct Bilirubin AST ALT Alkaline Phosphatase Troponin T High Sens Troponin T Hi Sens 2 Hr NT pro BNP II Total Protein Albumin Globulin Urine Color Yellow Urine Clarity Clear Urine pH 5.0 Ur Specific [place] 1.010 Urine Protein 100 H Urine Glucose (UA) Normal Urine Ketones Negative Urine Occult Blood Negative Urine Nitrite Negative Urine Bilirubin Negative Urine Urobilinogen Normal Ur Leukocyte Esterase Negative Urine RBC 0 SEEN Urine WBC 0-5 SEEN Ur Squamous Epith Cells 0-5 SEEN Ur Renal Epithelial Cell 0-5 SEEN Amorphous Sediment 3+ Urine Bacteria 1+ Hyaline Casts 0-5 SEEN Urine Mucus 0 SEEN Radiography Diagnostic Testing: Clinical Impression(s) from Imaging Studies Chest X-Ray 01/08/25 18:45 IMPRESSION: Moderate right pleural effusion no widening, underlying consolidation not excluded. Reading Location: [facility] 01/08/25 22:05 IMPRESSION: No acute intracranial abnormality. Reading Location: [id number] Chest CTA 01/08/25 22:05 IMPRESSION: No pulmonary embolism identified to the segmental level. Evaluation of subsegmental branches is limited due to suboptimal contrast timing. Large right pleural effusion with right lower lobe compressive atelectasis. Superimposed infection or underlying mass cannot be excluded. Right upper lobe 16 mm and right middle lobe 18 mm solid pulmonary nodules, suspicious for metastatic disease or multifocal primary neoplasm. Calcified mediastinal lymph nodes, including a right paratracheal lymph node measuring 13 mm. Coronary artery calcifications and mild atherosclerosis. Status post cholecystectomy. Reading Location: [id number] Management Discussion w/another healthcare provider: Hospitalist (Dr. Crisostomo and Dr. Christianson) Discharge Plan Dx/Rx/DC Orders Clinical Impression: Endometrial cancer, Acute delirium, Hypoxia, Pneumonia, Pleural effusion on right, Type 2 diabetes mellitus Disposition Disposition: Acute Care Hospital [facility] Discharge Date/Time: 01/09/25 00:18
--- NOTE | 2025-01-08 18:45 | RAD_ITS ---
PROCEDURE: CHEST 1 VIEW (PORTABLE) 01/08/2025 REASON FOR EXAM: HYPOXIA PLEURAL EFFUSION TECHNIQUE: Frontal view of the chest. COMPARISON: 12/27/2024 FINDINGS: Hardware: Left sided Mediport unchanged. Heart: The heart size is normal. Lungs: Moderate right pleural effusion no widening, underlying consolidation not excluded. No pneumothorax or pleural effusion. Bones: The bones are unremarkable. RAD/Chest 1 View (Portable) IMPRESSION: Moderate right pleural effusion no widening, underlying consolidation not exclu ded. Reading [facility]
[2025-01-08 19:18] LABS: Hematocrit 30.9 % (37-47); Hemoglobin 9.9 g/dL (12.0-15.0); Immature Granulocytes Count 0.040 X10^3/uL (0.0-0.0); Mean Corp Hgb Conc 32.0 g/dL (32-36); Mean Corpuscular Volume 94.2 fL (81-99); Mean Platelet Vol. 10.2 fl (6.2-12.0); NRBC Flagged by Analyzer 0 % (0-5); Platelet Count 153 K/mm3 (150-450); RBC Distribution Width CV 15.7 % (11.6-14.6); RBC Distribution Width SD 54.2 fl (35.1-43.9); Red Blood Count 3.28 M/mm3 (4.2-5.4); White Blood Count 12.4 K/mm3 (4.4-11.0)
[2025-01-08 19:33] LABS: AST(SGOT) 17 U/L (<=31); Alanine Aminotransfer ALT/SGPT 14 U/L (<=34); Albumin, Serum 3.3 g/dL (3.4-4.8); Alkaline Phosphatase 78 U/L (35-104); Anion Gap 8 (5-15); BUN 27 mg/dL (4-19); BUN/Creat Ratio 18.1 RATIO (10-20); Bilirubin, Direct 0.17 mg/dL (0.00-0.30); Calcium,Total 9.3 mg/dL (7.6-11.0); Carbon Dioxide 29.6 mmol/L (21.0-32.0); Chloride 93 mmol/L (98-108); Globulin 3.4 g/dL (2.2-4.2); Glucose 224 mg/dL (70-99); Potassium 4.9 mmol/L (3.3-5.1); Pro- Brain NATRIURETIC PEPTIDE 298 pg/mL (<=1800); Troponin T High Sensitivity 39 ng/L (<=14)
[2025-01-08 21:11] LABS: Prothrombin Time (Protime)PT. 14.5 SECONDS (11.7-14.9)
[2025-01-08 21:12] LABS: Partial Thromboplast Time 38.2 Seconds (24.1-36.2)
[2025-01-08 21:19] LABS: Troponin T High Sens 2 HR 37 ng/L (<=14)
[2025-01-08] MEDS: Azithromycin 500 MG in 0.9% Normal Saline (250mL Bag) 250 ML 250 MG IV (21:27)
[2025-01-08 21:57] LABS: Pro- Brain NATRIURETIC PEPTIDE 286 pg/mL (<=1800)
--- NOTE | 2025-01-08 22:05 | CT_ITS ---
PROCEDURE: CT BRAIN/HEAD WITHOUT CONTRAST 01/08/2025 REASON FOR EXAM: AMS TECHNIQUE: Procedure Code: CTBR Modality: CT Procedure: BRAIN/HEAD WITHOUT CONTRAST Coronal and Sagittal reconstruction series were provided. One or more dose reduction techniques were used (e.g., Automated exposure control, adjustment of the mA and/or kV according to patient size, use of iterative reconstruction technique. RADIATION DOSE SUMMARY: CTDlvol: 44.99 mGy DLP: 897.35 mGycm COMPARISON: 04/27/2024 FINDINGS: No acute intracranial hemorrhage, extra-axial collection, mass effect or evidence of acute infarct. Mild generalized brain parenchymal volume loss and chronic microangiopathic changes. Mild atherosclerotic vascular calcifications. Prior left orbital cataract surgery. Intact skull base and calvarium. 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 Well-aerated paranasal sinuses and bilateral mastoid air cells. CT/Brain/Head without Contrast IMPRESSION: No acute intracranial abnormality. Reading Location: [id number]
--- NOTE | 2025-01-08 22:05 | CT_ITS ---
PROCEDURE: CTA CHEST W/WO CONTRAST 01/08/2025 REASON FOR EXAM: PULMONARY EMBOLISM LUNG METS EFFUSION TECHNIQUE: Procedure Code: [id number] Modality: CT Procedure: CTA CHEST W/WO CONTRAST Multiplanar Sagittal and Coronal images were obtained. CONTRAST: Isovue 370 VOLUME: 100 mL One or more dose reduction techniques were used (e.g., Automated exposure control, adjustment of the mA and/or kV according to patient size, use of iterative reconstruction technique). RADIATION DOSE SUMMARY: CTDlvol: 15 mGy DLP: 558 mGycm FINDINGS: The peripheral soft tissues unremarkable. Degenerative changes of the spine. Prior cholecystectomy. Mild atherosclerosis. Normal caliber thoracic aorta. Coronary artery calcifications are present. Normal size heart right upper lobe 16 mm solid pulmonary nodule large right pleural effusion right lower lobe density favoring compressive atelectasis but superimposed infection or mass can not be completely excluded. Right middle lobe 18 mm solid pulmonary nodule. Mediastinal lymph nodes some of which are calcified. The largest is a right paratracheal lymph node which measures 13 mm. No pulmonary artery filling defects to the segmental level. Suboptimal contrast timing to assess the subsegmental levels. CT/CTA Chest W/WO Contrast IMPRESSION: No pulmonary embolism identified to the segmental level. Evaluation of subsegme ntal branches is limited due to suboptimal contrast timing. Large right pleural effusion with right lower lobe compressive atelectasis. Evans perimposed infection or underlying mass cannot be excluded. Right upper lobe 16 mm and right middle lobe 18 mm solid pulmonary nodules, kindra picious for metastatic disease or multifocal primary neoplasm. Calcified mediastinal lymph nodes, including a right paratracheal lymph node me asuring 13 mm. Coronary artery calcifications and mild atherosclerosis. Status post cholecystectomy. Reading Location: [facility]
[2025-01-08 22:44] LABS: Mucous, Urine 0 SEEN /hpf (<or=2+); Red Blood Cells-Urine 0 SEEN /hpf (0-5)
[2025-01-08 22:50] LABS: Color, Urine Yellow (Yellow); Glucose, Dipstick Normal (Normal); Ketone-Dipstick Negative (Negative); Leukocyte Esterase-Dipstick Negative /ul (Negative); Nitrite-Dipstick Negative (Negative); Occult Blood-Urine Negative /ul (Negative); Protein-Dipstick 100 mg/dl (Negative); Specific Gravity, Urine 1.010 (1.002-1.030); Urine Bilirubin Dipstick Negative (Negative)
[2025-01-08 22:59] LABS: Squamous Epithelial Cells - UA 0-5 SEEN /hpf (5-10)
--- NOTE | 2025-01-08 23:31 | HP.PCM_ITS ---
[facility] - General General Date of Service: 01/08/25 Chief Complaint: Shortness of breath, confusion HPI Narrative PRICILA HOOKER, is a 79 F who presents to the emergency room with chief complaint of altered mental status, hypoxia and hyperglycemia. Patient has significant past medical history of metastatic endometrial cancer who has recently become more lethargic and confused than at her baseline. She was unable due to her condition to make it to her follow-up appointment with oncology to review her CT scan that was done recently. Earlier today she was seen by EMS at her home and they found her oxygen line had been kinked by furniture and when this was fixed her oxygen saturation improved and so they left her at home at that time. Later this evening she became more confused and her sister checked her blood sugar and it was in the 300s and therefore she brought her to the emergency room thinking that may have something to do with her confusion and wanted her to be evaluated. Recently her glycemic control had been changed due to episode of hypoglycemia. Family reports decreased urination and decrease in appetite but deny fever or chills. Laboratory studies reveal white blood cell count of 12.4, hemoglobin 9.9, hematocrit 30.9, platelets 153, sodium 131, potassium 4.9, chloride 93, bicarb 29.6, BUN 27, creatinine 1.5, glucose 224, troponin 39, 37, BNTP 286, albumin 3.3. Chest x-ray shows moderate right pleural effusion. CT angiogram of the chest is negative for pulmonary embolism but does confirm moderate pleural effusion and metastatic disease. Patient remains moderately confused during my interview and her sister is able to speak for her on her behalf as they are very close. She confirms that the patient's wishes are to be DNR Comfort Care arrest. And in further conversation discussing futility of further aggressive treatment for her cancer and we both agreed that a consult to hospice was in her best interest at this time. Patient will be admitted to general medical floor with supportive oxygen treatment and diuretic therapy for her pleural effusion. Patient's sister does not want her to have thoracentesis at this time as she feels the risks are not warranted. We will place a consult for hospice care as she is already in [facility] her in the morning. [facility] Medical History Hypomagnesemia Former smoker Endometrial cancer, FIGO stage IIIC Pancytopenia History of cancer of uterus Obesity Dyslipidemia Coronary artery disease Nonischemic cardiomyopathy CKD (chronic kidney disease) stage 3, GFR 30-59 ml/min Endometrial cancer GERD (gastroesophageal reflux disease) Benign neoplasm of colon Cholecystitis Hypercholesteremia Neuropathy Diabetes Hypertension Chest pain Home Medications Medication Instructions Recorded Last Taken Type amitriptyline 50 mg tablet 50 mg PO QHS DEPRESSION 03/09/23 History atorvastatin 40 mg tablet 40 mg PO QHS CHOLESTEROL 03/09/23 History gabapentin 100 mg capsule 100 mg PO BID NERVE PAIN 03/10/23 History magnesium chloride 71.5 mg 71.5 mg PO BID SUPPLEMENT 1 03/10/23 History (magnesium chloride) tablet,delayed release (Slow-Mag) aspirin 81 mg tablet,delayed 81 mg PO DAILY HEART HEAL TH 01/24/23 03/10/23 History release (Adult Low Dose Aspirin) acetaminophen 500 mg tablet 500 mg PO Q6H PRN PAIN 12/22 Unknown History (Acetaminophen Extra Strength) carvedilol 3.125 mg tablet 6.25 mg PO BID 12/17/23 Unk nown History torsemide 20 mg tablet 20 mg PO DAILY 12/27/24 Unkn own History metformin 500 mg tablet 500 mg PO BID DIABETES 30 d ays 12/28/24 Unknown Rx #60 tabs amlodipine 10 mg tablet 10 mg PO DAILY 01/08/25 Unkn own History fluticasone 250 mcg-salmeterol 50 1 ea inhalation BID 01/08/25 Unknown History mcg/dose blistr powdr for inhalation glimepiride 4 mg tablet 4 mg PO BID 01/08/25 Unknown History morphine 15 mg tablet,extended 15 mg PO Q12.TCU Unknown History release morphine 15 mg tablet,extended 15 mg PO Q12.TCU Unknown History release oxycodone 10 mg tablet 10 mg PO Q6H PRN PRN pain Unknown History valsartan 80 mg tablet 160 mg PO QHS 01/08/25 Unkno wn History Allergy/AdvReac Type Severity Reaction Status Date / Time No Known Allergies Allergy Verified 04/27/24 16:18 Family History Father Myocardial infarction Mother Heart disease irregular heart rate Colon cancer Surgical History History of cholecystectomy Hx of hysterectomy, total Hx laparoscopic cholecystectomy Hx of cataract surgery History of total left knee replacement (TKR) (~01/2011) History of total right knee replacement (TKR) (~05/11/11) Social History household members: none Smoking Status: Former smoker how long ago did patient quit smokin alcohol intake: never substance use type: does not use ROS Review of Systems ROS Unobtainable: due to mental status Constitutional Constitutional: Denies chills or fever(s) Eyes Eyes: Denies blurry vision ENT HEENT: Denies abnormal hearing Cardiovascular Cardiovascular: Denies chest pain Respiratory/Chest Respiratory/Chest: Reports shortness of breath at rest Gastrointestinal Gastrointestinal: Denies abdominal pain Genitourinary Genitourinary: Denies dysuria Musculoskeletal Musculoskeletal: Denies back pain Integumentary Integumentary: Denies dry skin Neurologic Neurologic: Reports confusion; Denies dizziness Psychiatric Psychiatric: Denies anxiety Vital Signs Vital Signs Vital Signs: 01/08/25 17:17 01/08/25 17:17 01/08/25 17:52 Temperature 98.3 F 98.3 F Temperature Source Oral Oral Pulse Rate 80 80 Respiratory Rate 17 14 Respiratory Effort Non-Labored Respiratory Pattern Normal Blood Pressure 154/64 H 154/64 H Blood Pressure Mean 94 94 Pulse Ox 88 91 Oxygen Delivery Method Nasal Cannula Nasal Cannula Oxygen Flow Rate (L/min) 2 4 01/08/25 18:10 01/08/25 18:41 01/08/25 19:00 Temperature Temperature Source Pulse Rate 80 82 Respiratory Rate 19 H 19 H Respiratory Effort Respiratory Pattern Blood Pressure 125/70 H Blood Pressure Mean 88 Pulse Ox 91 91 95 Oxygen Delivery Method Nasal Cannula Oxygen Flow Rate (L/min) 2 2 01/08/25 19:27 01/08/25 20:00 01/08/25 20:54 Temperature Temperature Source Pulse Rate 82 82 Respiratory Rate 16 15 Respiratory Effort Respiratory Pattern Normal Blood Pressure 136/60 H Blood Pressure Mean 82 Pulse Ox 92 88 Oxygen Delivery Method Nasal Cannula Nasal Cannula Oxygen Flow Rate (L/min) 5 5 11/10/25 20:55 01/08/25 21:00 01/08/25 22:00 Temperature Temperature Source Pulse Rate 86 94 Respiratory Rate 12 23 H Respiratory Effort Respiratory Pattern Blood Pressure 160/130 H 142/84 H Blood Pressure Mean 142 100 Pulse Ox 91 92 95 Oxygen Delivery Method Nasal Cannula Nasal Cannula Nasal Cannula Oxygen Flow Rate (L/min) 6 6 6 01/08/25 23:00 Temperature Temperature Source Pulse Rate 91 Respiratory Rate 14 Respiratory Effort Respiratory Pattern Blood Pressure 121/63 H Blood Pressure Mean 82 Pulse Ox 88 Oxygen Delivery Method High Flow Oxygen Flow Rate (L/min) 7 Physical Exam Const alert Orientation / Consciousness: confused and lethargic HEENT normocephalic and head/scalp atraumatic Eyes PERRL and EOMs intact bilaterally Neck no lymphadenopathy General: trachea midline Lymph Lymphatic: no lymphadenopathy noted Resp normal respiratory effort Effort and Inspection: Negative for uses accessory muscles Auscultation: diminished lung sounds right lower Cardio regular rate, regular rhythm, S1 normal heart sound and S2 normal heart sound GI normal to inspection, nondistended, normoactive bowel sounds GI Narrative: Obese Extremity normal capillary refill General Extremity: edema bilateral lower extremity Details: trace Skin General Skin Exam: no breakdown Neuro Neuro Narrative: Patient is confused at this time Psych cooperative and affect normal Mood & Affect: Negative for anxious Thought Content: No delusion(s) and No hallucination(s) Results Lab / Micro Data 01/08/25 18:32 01/08/25 18:32 Labs: Laboratory Results - last 24 hr 01/08/25 18:32: WBC 12.4 H, RBC 3.28 L, Hgb 9.9 L, Hct 30.9 L, MCV 94.2, MCH 30.2, MCHC 32.0, RDW Std Deviation 54.2 H, RDW Coeff of [place] 15.7 H, Plt Count 153, MPV 10.2, Immature Gran % (Auto) 0.300, Neut % (Auto) 65.9, Lymph % (Auto) 9.4 L, [place] % (Auto) 8.8, Eos % (Auto) 15.4 H, Baso % (Auto) 0.2, Absolute Neuts (auto) 8.2 H, Absolute Lymphs (auto) 1.16, Nucleated RBC % 0, Sodium 131 L, Potassium 4.9, Chloride 93 L, Carbon Dioxide 29.6, Anion Gap 8, BUN 27 H, C reatinine 1.50 H, Est GFR (MDRD) Non-Af 35 L, BUN/Creatinine Ratio 18.1, Glucose 224 H, Calcium 9.3, Total Bilirubin 0.34, Direct Bilirubin 0.17, AST 17, ALT 14, Alkaline Phosphatase 78, Troponin T High Sens 39 H D, NT pro BNP II 298, Total Protein 6.7, Albumin 3.3 L, Globulin 3.4 01/08/25 19:58: PT 14.5, INR 1.1, APTT 38.2 H, Lactic Acid < 1.0 01/08/25 20:37: Troponin T Hi Sens 2 Hr 37 H, NT pro BNP II 286 01/08/25 22:41: Urine Color Yellow, Urine Clarity Clear, Urine pH 5.0, Ur Specific [place] 1.010, Urine Protein 100 H, Urine Glucose (UA) Normal, Urine Ketones Negative, Urine Occult Blood Negative, Urine Nitrite Negative, Urine Bilirubin Negative, Urine Urobilinogen Normal, Ur Leukocyte Esterase Negative, Urine RBC 0 SEEN, Urine WBC 0-5 SEEN, Ur Squamous Epith Cells 0-5 SEEN, Ur Renal Epithelial Cell 0-5 SEEN, Amorphous Sediment 3+, Urine Bacteria 1+, Hyaline Casts 0-5 SEEN, Urine Mucus 0 SEEN Imaging Radiology Impression Chest X-Ray 01/08/25 18:45 IMPRESSION: Moderate right pleural effusion no widening, underlying consolidation not excluded. Reading [facility] Brain CT 01/08/25 22:05 IMPRESSION: No acute intracranial abnormality. Reading Location: [id number] Chest CTA 01/08/25 22:05 IMPRESSION: No pulmonary embolism identified to the segmental level. Evaluation of subsegmental branches is limited due to suboptimal contrast timing. Large right pleural effusion with right lower lobe compressive atelectasis. Superimposed infection or underlying mass cannot be excluded. Right upper lobe 16 mm and right middle lobe 18 mm solid pulmonary nodules, suspicious for metastatic disease or multifocal primary neoplasm. Calcified mediastinal lymph nodes, including a right paratracheal lymph node measuring 13 mm. Coronary artery calcifications and mild atherosclerosis. Status post cholecystectomy. Reading Location: [id number] Assessment & Plan Assessment/Plan (1) Pleural effusion on right: (2) Hypoxia: (3) Acute delirium: (4) Type 2 diabetes mellitus: (5) Malignant neoplasm metastatic to endometrium with unknown primary site: PLAN: Plan 1. Hypoxia secondary to right pleural effusion likely caused by malignancy–admit patient to general medical floor continue supportive oxygen therapy. Also add Lasix 20 mg IV twice daily. Patient is DNR Comfort Care arrest per conversation with her and her sister who was speaking on her behalf as the patient is confused at this time. 2. Metastatic endometrial cancer–CT confirms neoplasm in the lungs. Due to recent decline and ongoing palliative care the next logical progression is to consult hospice care for consultation. 3. Diabetes–continue routine glycemic control medications 4. DVT prophylaxis–low molecular weight heparin 5. CODE STATUS DNR Comfort Care arrest confirmed with family member Charges/Coding Visit Charges Inpatient E&M: 66491 Init Hosp L2
[2025-01-09] VITALS (8 sets, daily range): BP systolic 114–147; BP diastolic 60–76; PULSE 75–95; RESP 16–20; TEMP 36.7–37.2; O2SAT 93–96; BMI 44.1; BMI 44.2
--- OUTSIDE RECORDS SUMMARY | 2025-01-09 00:06 | XMS RPT_ITS | CCD ---
Author Organization [facility] Care Team Providers Care Harness Tier Name Role Phone Vinh Van MD Primary Care Provider [facility], Keti Unavailable Vinh Van MD Primary Care Provider [facility], Keti Unavailable Compa RN, Debi Unavailable Masci DO, Nora A Unavailable Nata RN, Reena Unavailable Unavailable Compa RN, Debi Unavailable Doup RN, Reena Unavailable Unavailable [facility], Keti Unavailable Dr. Vinh Van Primary Care Provider Dr. Vinh Van Referring Provider Dr. Keshawn Tipton Attending Provider MD Robert Blue Emergency Provider Dr. Abraham Edgar Admit Provider Unavailable Dr. Abraham Edgar Other Provider Unavailable Dr. Georgia Romero Attending Provider Dr. Georgia Romero Other Provider Dr. Myron Marcus Emergency Provider Dr. Renata Culver Admit Provider Dr. Renata Culver Attending Provider Dr. Renata Culver Other Provider Dr. Bing Doran Attending Provider Unavailable Dr. Bing Doran Other Provider Unavailable Esther Yousif Attending Provider Unavailable Dr. Tadeo Hutchinson Emergency Provider Dr. Syed Muñiz Admit Provider Dr. Syed Muñiz Other Provider Dr. Ramy Anglin Attending Provider Dr. Ramy Anglin Other Provider Vinh Van MD Primary Care Provider Farshad Marie MD Unavailable Memo Leigh MD Unavailable [employer] NETSUITE CONSULTANT.Billie BANDA Unavailable Jw RICE, Patel Unavailable Nitin NETSUITE CONSULTANT.SOLO, Supa Unavailable VINH VAN Primary Care Unavailable ANTOLIN HERNANDEZ Attending Unavailable CARLOTA VINH Cici Primary Care Unavailable GAYLE, DAYTONIMAN A Referring Unavailable CARLOTA VINH Cici Primary Care Unavailable GO ARAUJO Referring Unavailable CARLOTA VINH Cici Primary Care Unavailable ANTOLIN HERNANDEZ Referring Unavailable CARLOTA VINH Cici Primary Care Unavailable ELISEO SHAMEER Admitting Unavailable MARJORIE UGALDE Attending Unavailable PAMELA NELSON Consulting Unavailable KIBE-FRANCK, LESTER Referring Unavailable CARLOTA VINH Cici Primary Care Unavailable LUZ ELENA COWART Admitting Unavailable LOPEZ HAWKINS Attending Unavailable AMARJIT VILLANUEVA Consulting Unavailabl e [employer] NETSUITE CONSULTANT.Billie BANDA Unavailable Unavail able [employer] NETSUITE CONSULTANT.SOLO, Billie Unavailable Eddie Vera Attending Unavailable Ramy Anglin Admitting Unavailable Elderbrock, Vinh Primary Care Unavailable Ramy Anglin Consulting Unavailable Kelly-Taniya Urena Consulting Eddie Warner Attending Unavailable Ramy Anglin Admitting Unavailable Ramy Anglin Consulting Unavailable Elderbrock, Vinh Primary Care Unavailable Pincumbe-GillfernandoieTaniya Consulting Eddie Warner Consulting Unavailable Bing Villegas Consulting Unavailable Eddie Vera Attending Unavailable Fidencio Ordaz Referring Unavailable Elderbrock, Vinh Primary Care Unavailable Bing Villegas Admitting Unavailable Eddie Vera Consulting Unavailable Bing Villegas Consulting Unavailable Fidencio Ordaz Referring Unavailable Bing Villegas Attending Unavailable Elderjayleen, Vinh Primary Care Unavailable Bing Villegas Admitting Unavailable Ramy Anglin Attending Unavailable Taniya Castaneda Attending Ada Castellanos DEPUTY CITY CLERK, Cydney Attending Unavailable Elderbrock, Vinh Primary Care Unavailable Shonda Heartongbe Attending Unavailable Elderbrock, Vinh Primary Care Unavailable Oleghe NEW, Efewongbe Attending Unavailabl e Elderbrock, Vinh Primary Care Unavailable Taylore NEW, Anitabe Attending Unavailabl e Elderbrock, Vinh Primary Care Unavailable Nora Branham Attending Unavailable Nora Branham Referring Unavailable Elderbrock, Vinh Primary Care Unavailable Bing Villegas Admitting Unavailable Eddie Vera Attending Unavailable Fidencio Ordaz Referring Unavailable Bing Villegas Consulting Unavailable Elderjayleen, Vinh Primary Care Unavailable PATEL ESCALERA Referring Unavailable ELDERBROCK, VINH Bolanos Primary Care Unavailable ELDERBROCK, VINH Bolanos Primary Care Unavailable NORA BRANHAM Referring Unavailable ELDERBROCK, VINH Bolanos Primary Care Unavailable TAMARA MARI Referring Unavailable ELDERBROCK, VINH Bolanos Primary Care Unavailable ELDERBROCK, VINH Bolanos Primary Care Unavailable MASCOdalis NORA Referring Unavailable ELDERBROCK, VINH Bolanos Primary Care Unavailable CARROL NORA Referring Unavailable ELDERBROCK, VINH Bolanos Primary Care Unavailable CARROL NORA Referring Unavailable ELDERBROCK, VINH Bolanos Primary Care Unavailable MASCNORA Mata Attending Unavailable ELDERBROCK, VINH Bolanos Primary Care Unavailable ELDERBROCK, VINH Bolanos Primary Care Unavailable TATYANA RAHMAN Attending Unavailable PAMELA NELSON Referring Unavailable NORA BRANHAM Attending Unavailable ELDERJAYLEEN, VINH Bolanos Primary Care Unavailable MASCI NORA Referring Unavailable ELDERBROCK, VINH Bolanos Primary Care Unavailable MASCI NORA Referring Unavailable ELDERBROCK, VINH D Primary Care Unavailable ELDERBROCK, VINH Bolanos Primary Care Unavailable MASCI NORA Referring Unavailable ELDERBROCK, VINH Bolanos Primary Care Unavailable CARROL NORA Referring Unavailable ELDERBROCK, VINH Bolanos Primary Care Unavailable CARROL NORA Referring Unavailable ELDERBROCK, VINH Bolanos Primary Care Unavailable ELDERBROCK, VINH Bolanos Primary Care Unavailable NORA BRANHAM Attending Unavailable ELDERSANTIAGOCK, VINH Bolanos Primary Care Unavailable PAMELA NELSON Referring Unavailable ELDERBROCKVINH Primary Care Unavailable TAMARA MARI Referring Unavailable ELDERBROCK, VINH Cici Primary Care Unavailable NORA BRANHAM Referring Unavailable ELDERBROCK, VINH D Primary Care Unavailable LOPEZ HAWKINS Referring Unavailable BILLIE HWANG Attending Unavailable ELDERBROCK, VINH D Primary Care Unavailable LOPEZ HAWKINS Referring Unavailable PAMELA NELSON Attending Unavailable MAISHA EDMONDS Attending Unavailable ELDERBROCK, VINH Cici Primary Care Unavailable MASCOdalis NORA Referring Unavailable ELDERBROCK, VINH D Primary Care Unavailable ELDERBROCK, VINH D Primary Care Unavailable MASCOdalis NORA Referring Unavailable ELDERBROCK, VINH D Primary Care Unavailable TATYANA RAHMAN Attending Unavailable ELDERBROCK, VINH D Primary Care Unavailable ELDERBROCK, VINH D Primary Care Unavailable NORA BRANHAM Referring Unavailable ELDERBROCK, VINH D Primary Care Unavailable NORA BRANHAM Attending Unavailable TAMARA MARI Attending Unavailable ELDERBROCK, VINH D Primary Care Unavailable ELDERBROCK, VINH D Primary Care Unavailable NORA BRANHAM Referring Unavailable ELDERBROCK, VINH D Primary Care Unavailable NORA BRANHAM Referring Unavailable ELDERBROCK, VINH D Primary Care Unavailable VICENTE ESCALERAUNG Referring Unavailable PATEL ESCALERA Attending Unavailable ELDERBROCK, VINH D Primary Care Unavailable JW DAROBBIEUNG Referring Unavailable ELDERBROCK, VINH D Primary Care Unavailable JW DAROBBIEUNG Referring Unavailable VICENTE ESCALERAUNG Attending Unavailable ELDERBROCK, VINH D Primary Care Unavailable ELDERBROCK, VINH D Primary Care Unavailable ELDERBROCK, VINH D Primary Care Unavailable NORA BRANHAM Referring Unavailable ELDERBROCK, VINH D Primary Care Unavailable TAMARA MARI Referring Unavailable ELDERBROCK, VINH Cici Primary Care Unavailable NORA BRANHAM Referring Unavailable ELDERBROCK, VINH D Primary Care Unavailable NORA BRANHAM Attending Unavailable ELDERBROCK, VINH D Primary Care Unavailable ELDERBROCK, VINH D Primary Care Unavailable NORA BRANHAM Attending Unavailable ELDERBROCK, VINH D Primary Care Unavailable NORA BRANHAM Referring Unavailable ELDERBROCK, VINH D Primary Care Unavailable CARROL NORA Referring Unavailable TAMARA MARI Attending Unavailable ELDERBROCK, VINH D Primary Care Unavailable ELDERBROCK, VINH D Primary Care Unavailable ELDERBROCK, VINH D Primary Care Unavailable MAISHA EDMONDS Attending Unavailable ELDERBROCK, VINH Cici Primary Care Unavailable CARROL NORA Referring Unavailable CARROL NORA Referring Unavailable ELDERBROCK, VINH D Primary Care Unavailable ELDERBROCK, VINH Bolanos Primary Care Unavailable ELDERVINH HUTCHISON Primary Care Unavailable TAMARA MARI Attending Unavailable ELDERVINH HUTCHISON Primary Care Unavailable NORA BRANHAM Referring Unavailable ELDERVINH HUTCHISON Primary Care Unavailable PATEL ESCALERA Attending Unavailable NORA BRANHAM Referring Unavailable ELDERVINH HUTCHISON Primary Care Unavailable ELDERJAYLEEN, VINH Bolanos Primary Care Unavailable PATEL ESCALERA Referring Unavailable PATEL ESCALERA Attending Unavailable PATEL ESCALERA Referring Unavailable VINH VAN Primary Care Unavailable ELDERVINH HUTCHISON Primary Care Unavailable NORA BRANHAM Attending Unavailable ELDERJAYLEEN, VINH Bolanos Primary Care Unavailable CHIDIVINH HUTCHISON Primary Care Unavailable NORA BRANHAM Referring Unavailable CHIDIVINH HUTCHISON Primary Care Unavailable PAMELA NELSON Referring Unavailable VINH VAN Primary Care Unavailable PATEL ESCALERA Referring Unavailable PATEL ESCALERA Attending Unavailable Allergies Allergy Classification Reported Allergen(s) Allergy Type Date of Onset Reaction(s) Facility (20 sources) Adhesive Tape Allergy to substance 02-04-2011 [facility] Medications Current Medications Medication Drug Class(es) Dates Sig (Normalized) Sig (Original) acetaminophen 500 mg oral tablet (20 sources) Start: 03-10-2023 take 1 tablet by mouth every six hours Acetaminophen (Acetaminophen Extra Strength) 500 mg tablet Active 500 MG PO EVERY 6 HOURS March 10, 2023 12:00am Start: 07-24-2022 take [address] [facility] every six hours as needed acetaminophen (TYLENOL EXTRA STRENGTH) 500 mg tablet Take 2 tablets by mouth every 6 hours as needed for pain. 60 tablet 07/24/2022 7:03 PM EDT 07/24/2022 Active End: 07-24-2022 take 2 tablets by mouth every six hours as needed acetaminophen (TYLENOL) 325 mg tablet Take 650 mg by mouth every 6 hours as needed. 07/24/2022 Discontinued Comment on above: Take 650 mg by mouth every 6 hours as needed. Take [address] [facility] every 6 hours as needed for pain. 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 30 tablet 5 06/08/2024 Active Start: 07-11-2020 End: 09-26-2021 take 1 tablet by mouth once daily at bedtime amitriptyline (ELAVIL) 25 mg tablet Take 1 tablet by mouth daily at bedtime. 90 tablet 3 07/11/2020 09/26/2021 Discontinued Start: 10-10-2019 End: 12-23-2022 take 1 tablet by mouth at bedtime Amitriptyline Discontinued 1 TABLET PO AT BEDTIME May 05, 2020 12:00am December 23, 2022 1:32pm Comment on above: Take 1 tablet by nell th daily at bedtime. take 1 tablet by nell th once daily at bedtime amLODIPine 10 mg oral tablet (20 sources) Dihydropyridine Calcium Channel Nathaly Start: take 1 tablet by mouth once daily amLODIPine (NORVASC) 10 mg tablet Take 1 tablet by mouth once daily. 90 tablet 2 10/16/2024 Active Start: 07-20-2024 End: 10-14-2024 take 1 tablet by mouth once daily amLODIPine (NORVASC) 10 mg tablet Take 1 tablet by mouth once daily. 30 tablet 2 10/13/2024 10/14/2024 Discontinued aspirin 81 mg delayed release oral tablet (20 sources) Platelet Aggregation Inhibitor, Nonsteroidal Anti-inflammatory Drug Start: 01-24-2023 Aspirin (Adult Lo w Dose Aspirin) 81 mg tablet,delayed release (DR/EC) Active 81 MG PO DAILY January 24, 2023 12:00am Start: 05-05-2020 End: 12-29-2022 take 1 tablet by mouth once daily Aspirin Discontinued 1 TABLET PO DAILY May 05, 2020 12:00am December 29, 2022 9:32am Start: 08-11-2006 End: 10-13-2022 take 1 tablet by mouth once daily Aspirin 81 mg ORAL Tab Indications: Type II or unspecified type diabetes mellitus without mention of complication, uncontrolled Take one(1) tablet daily. 0 08/11/2006 10/13/2022 Discontinued Comment on above: Take one(1) tablet d aily. Take 81 mg by mouth once daily. atorvastatin 40 mg oral tablet (20 sources) HMG-CoA Reductase Inhibitor Start: 025 take 1 tablet by mouth once daily at bedtime for hyperlipidemia atorvastatin (LIPITOR) 40 mg tablet Indications: Hyperlipidemia, unspecified hyperlipidemia type TAKE 1 TABLET BY MOUTH ONCE DAILY AT BEDTIME FOR CHOLESTEROL 90 tablet 1 10/16/2024 Active Start: 05-03-2021 End: 10-14-2024 take 1 tablet by mouth once daily at bedtime for hyperlipidemia atorvastatin (LIPITOR) 40 mg tablet Indications: Hyperlipidemia, unspecified hyperlipidemia type TAKE 1 TABLET BY MOUTH ONCE DAILY AT BEDTIME FOR CHOLESTEROL 30 tablet 11 08/06/2023 10/14/2024 Discontinued Start: 11-30-2018 End: 05-29-2020 take 1 tablet by mouth once daily at bedtime for hyperlipidemia atorvastatin (LIPITOR) 40 mg tablet Indications: Hyperlipidemia, unspecified hyperlipidemia type Take 1 tablet by mouth daily at bedtime. For cholesterol. 90 tablet 3 11/30/2018 05/29/2020 Discontinued Comment on above: TAKE 1 TABLET BY NELL TH ONCE DAILY AT BEDTIME FOR CHOLESTEROL betamethasone valerate 1.2 mg/ml topical foam (2 sources) Corticosteroid Start: 06-06-2021 End: 07-06-2021 Betamethasone Valerate (LUXIQ) 0.12 % foam Indications: Psoriasis of scalp Apply to affected area twice daily. 100 g 5 06/06/2021 07/06/2021 Active Comment on above: Apply to affected ar ea twice daily. Blood Pressure Monitor (20 sources) Start: 04-02-2023 Blood Pressure Monitor Take your blood pressure everyday and keep a log 1 Each 04/02/2023 Suspended Start: 04-02-2023 Blood Pressure Monitor Take your blood pressure everyday and keep a log 1 Each 04/02/2023 Active Start: 04-02-2023 Blood Pressure Monitor Take your blood pressure everyday and keep a log 1 Each 0 04/02/2023 Suspended Start: 04-02-2023 Blood Pressure Monitor Take your blood pressure everyday and keep a log 1 Each 0 04/02/2023 Active Start: 04-02-2023 End: 04-02-2023 Blood Pressure Monitor Take your blood pressure everyday and keep a log 1 Each 0 04/02/2023 04/02/2023 Discontinued Comment on above: Take your blood pres sure everyday and keep a log Blood-Glucose Meter (2 sources) Start: 10-08-2021 End: 10-09-2021 Blood-Glucose Meter Indications: Type 2 diabetes mellitus without complication, with no history of insulin use ([facility]) Test one time daily, Insulin Dep? No E11.9 DM 2 1 Each 0 10/08/2021 10/09/2021 Active Comment on above: Test one time daily, Insulin Dep? No E11.9 DM 2 carvedilol 3.125 mg oral tablet (20 sources) alpha-Adrenergic Nathaly, beta-Adrenergic Nathaly Start: 03-29-2024 End: 10-25-2024 take 2 tablets by mouth twice daily at mealtime carvedilol (COREG) 3.125 mg tablet Take 2 tablets by mouth two times a day with meals. 180 tablet 3 10/25/2024 Active Start: 08-03-2023 End: 03-25-2024 take 2 tablets by mouth twice daily at mealtime carvedilol (COREG) 3.125 mg tablet Take 2 tablets by mouth two times a day with meals. 180 tablet 3 08/30/2023 03/25/2024 Discontinued Start: 12-29-2022 End: 08-03-2023 take 3.125 mg by mouth twice daily at mealtime Carvedilol Discontinued 3.125 MG PO TWICE DAILY WITH MEALS March 10, 2023 12:00am March 10, 2023 4:54pm Comment on above: Take 3.125 mg by nell th two times a day with meals. dextromethorphan hydrobromide 2 mg/ml / guaiFENesin 20 mg/ml oral solution (20 sources) Uncompetitive I-wifukw-F-aspartate Receptor Antagonist, Sigma-1 Agonist Start: 05-10-19 take 10 mL by mouth every four hours as needed guaiFENesin-dextro methorphan (ROBITUSSIN DM) 100-10 mg/5 mL syrup Take 10 mL by mouth every 4 hours as needed for cough (3rd line). 05/09/2024 Active Dulaglutide (17 sources) GLP-1 Receptor Agonist Start: 12-24-19 Dulaglutide (Trulicity) 3 mg/0.5 mL pen injector Active 3 MG SC TU December 22, 2022 11:00pm Start: 12-23-2022 Dulaglutide (T rulicity) 3 mg/0.5 mL pen injector Active 3 MG SC EVERY WEEK December 22, 2022 11:00pm Start: 05-22-2020 End: 10-08-2021 inject 1.5 mg by subcutaneous injection every week dulaglutide (TRULICITY) 1.5 mg/0.5 mL pen injector Indications: Uncontrolled type 2 diabetes with neuropathy Inject 1.5 mg subcutaneously one time a week. Patient Assistance Medication. 8 mL 3 05/22/2020 10/08/2021 Discontinued (Dosage adjustment) Comment on above: Inject 1.5 mg subcut aneously one time a week. Patient Assistance Medication. 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) For CT CHESTABD/PEL W IVCON Routine order Administer, As Directed One Time Only, via Oral, Rectal, both Oral and Rectal, Enteric Tube, Stoma or Indwelling Catheter, Enteric Contrast as designated per enteric contrast guidelines 1 each 08/23/2024 08/24/2024 Active Start: 05-23-2024 End: 07-03-2024 enteric contrast (will be pr ovided with radiology test) Indications: Endometrial cancer (HCC) , Carcinomatosis (HCC) For CT ABD/PEL W IVCON Routine order Administer, As Directed One Time Only, via Oral, Rectal, both Oral and Rectal, Enteric Tube, Stoma or Indwelling Catheter, Enteric Contrast as designated per enteric contrast guidelines 1 Each 05/23/2024 07/03/2024 Discontinued Start: 05-23-[address] (will be provided with radiology test) Indications: Endometrial cancer (HCC) , Carcinomatosis (HCC) For CT ABD/PEL W IVCON Routine order Administer, As Directed One Time Only, via Oral, Rectal, both Oral and Rectal, Enteric Tube, Stoma or Indwelling Catheter, Enteric Contrast as designated per enteric contrast guidelines 1 Each 05/23/2024 Active Start: 03-15-2024 End: 07-03-2024 enteric contrast (will be pr ovided with radiology test) Indications: Endometrial cancer (HCC) , Carcinomatosis (HCC) For CT ABD/PEL W IVCON Routine order Administer, As Directed One Time Only, via Oral, Rectal, both Oral and Rectal, Enteric Tube, Stoma or Indwelling Catheter, Enteric Contrast as designated per enteric contrast guidelines 1 Each 03/15/2024 07/03/2024 Discontinued Start: 03-15-[address] (will be provided with radiology test) Indications: Endometrial cancer (HCC) , Carcinomatosis (HCC) For CT ABD/PEL W IVCON Routine order Administer, As Directed One Time Only, via Oral, Rectal, both Oral and Rectal, Enteric Tube, Stoma or Indwelling Catheter, Enteric Contrast as designated per enteric contrast guidelines 1 Each 03/15/2024 Suspended Start: 03-15-[address] (will be provided with radiology test) Indications: Endometrial cancer (HCC) , Carcinomatosis (HCC) For CT ABD/PEL W IVCON Routine order Administer, As Directed One Time Only, via Oral, Rectal, both Oral and Rectal, Enteric Tube, Stoma or Indwelling Catheter, Enteric Contrast as designated per enteric contrast guidelines 1 Each 03/15/2024 Active Start: 01-05-2024 End: 01-06-2024 enteric contrast (will be pr ovided with radiology test) Indications: Endometrial cancer (HCC) , Carcinomatosis (HCC) , Lung nodules For CT CHESTABD/PEL W IVCON Routine order Administer, As Directed One Time Only, via Oral, Rectal, both Oral and Rectal, Enteric Tube, Stoma or Indwelling Catheter, Enteric Contrast as designated per enteric contrast guidelines 1 Each 01/05/2024 01/06/2024 Active Start: 06-08-2023 End: 06-09-2023 enteric contrast (will be pr ovided with radiology test) Indications: Endometrial cancer (HCC) For CT CHESTABD/PEL W IVCON Routine order Administer, As Directed One Time Only, via Oral, Rectal, both Oral and Rectal, Enteric Tube, Stoma or Indwelling Catheter, Enteric Contrast as designated per enteric contrast guidelines 1 Each 0 06/08/2023 06/09/2023 Active Start: 10-13-2022 End: 12-22-2022 enteric contrast (will be pr ovided with radiology test) Indications: Endometrial cancer (HCC) For CT ABD/PEL W IVCON Routine order Administer, As Directed One Time Only, via Oral, Rectal, both Oral and Rectal, Enteric Tube, Stoma or Indwelling Catheter, Enteric Contrast as designated per enteric contrast guidelines 1 Each 0 10/13/2022 12/22/2022 Discontinued Start: 10-13-[address] (will be provided with radiology test) Indications: Endometrial cancer (HCC) For CT ABD/PEL W IVCON Routine order Administer, As Directed One Time Only, via Oral, Rectal, both Oral and Rectal, Enteric Tube, Stoma or Indwelling Catheter, Enteric Contrast as designated per enteric contrast guidelines 1 Each 0 10/13/2022 Active Start: 08-12-2022 End: 12-15-2022 enteric contrast (will be pr ovided with radiology test) For CT CHESTABD/PEL W IVCON Routine order Administer, As Directed One Time Only, via Oral, Rectal, both Oral and Rectal, Enteric Tube, Stoma or Indwelling Catheter, Enteric Contrast as designated per enteric contrast guidelines 1 Each 0 08/12/2022 12/15/2022 Discontinued Start: 08-12-[address] (will be provided with radiology test) For CT CHESTABD/PEL W IVCON Routine order Administer, As Directed One Time Only, via Oral, Rectal, both Oral and Rectal, Enteric Tube, Stoma or Indwelling Catheter, Enteric Contrast as designated per enteric contrast guidelines 1 Each 0 08/12/2022 Active Comment on above: For CT CHESTABD/PEL W IVCON Routine order Administer, As Directed One Time Only, via Oral, Rectal, both Oral and Rectal, Enteric Tube, Stoma or Indwelling Catheter, Enteric Contrast as designated per enteric contrast guidelines For CT ABD/PEL W IVC ON Routine order Administer, As Directed One Time Only, via Oral, Rectal, both Oral and Rectal, Enteric Tube, Stoma or Indwelling Catheter, Enteric Contrast as designated per enteric contrast guidelines fluticasone / salmeterol (20 sources) Corticosteroid, beta2-Adrenergic Agonist Start: 07-05-19 take 1 puff(s) by inhalation twice daily fluticasone-salmet payton (WIXELA INHUB) 250-50 mcg/dose inhaler Inhale 1 puff as instructed two times a day. 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 90 capsule 3 07/10/2022 Active Comment on above: Take 1 capsule by mo ut three times daily for 30 days. Take 1 capsule by mo ut three times daily for 90 days. Take 1 capsule by mo ut three times a day for 90 days. Take 1 capsule by mo uth two times a day for 90 days. glimepiride 4 mg oral tablet (20 sources) Sulfonylurea Start: 12-01-19 End: 11-15-19 take 1 tablet by mouth twice daily at mealtime glimepiride (AMARYL) 4 mg tablet Indications: Type 2 diabetes mellitus without complication, with no history of insulin use ([facility]) Take 1 tablet by mouth two times a day with meals. 180 tablet 3 11/14/2024 Active Comment on above: Take 1 tablet by nell th twice daily with meals. TAKE 1 TABLET BY NELL TH TWICE DAILY WITH MEALS isopropyl alcohol 0.7 ml/ml medicated pad (20 sources) Start: 10-09-19 alcohol swabs (ALCOHOL PADS) Indications: Type 2 diabetes mellitus without complication, with no history of insulin use ([facility]) Test one time daily, Insulin Dep? No E11.9 DM 2 200 Each 4 10/08/2021 Active Comment on above: Test one time daily, Insulin Dep? 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 Discontinue saline lock post exam. If Pt. has a central line or IVAD, may access for administration according to line specific nursing protocol. Once exam is complete flush line and de-access according to line specific nursing protocol in the CT contrast administration guidelines link. 1 each 08/23/2024 08/24/2024 Active Start: 05-23-2024 End: 07-03-2024 iv contrast (will be provide d with radiology test) Indications: Endometrial cancer (HCC) , Carcinomatosis (HCC) , Lung nodules CT Chest W -Inject, intravenously, once for 1 dose.No IV access, insert saline lock prior to the beginning of sedation, infusion, injection of imaging exam. Discontinue saline lock post exam. If Pt. has a central line or IVAD, may access for administration according to line specific nursing protocol. Once exam is complete flush line and de-access according to line specific nursing protocol in the CT contrast administration guidelines link. 1 Each 05/23/2024 07/03/2024 Discontinued Start: 05-23-2024 End: 07-03-2024 iv contrast (will be provide d with radiology test) Indications: Endometrial cancer (HCC) , Carcinomatosis (HCC) CT ABD/PEL -Inject, intravenously, once for 1 dose.No IV access, insert saline lock prior to the beginning of sedation, infusion, injection of imaging exam. Discontinue saline lock post exam. If Pt. has a central line or IVAD, may access for administration according to line specific nursing protocol. Once exam is complete flush line and de-access according to line specific nursing protocol in the CT contrast administration guidelines link. 1 Each 05/23/2024 07/03/2024 Discontinued Start: 05-23-2024 iv contrast (w ill be provided with radiology test) Indications: Endometrial cancer (HCC) , Carcinomatosis (HCC) , Lung nodules CT Chest W -Inject, intravenously, once for 1 dose.No IV access, insert saline lock prior to the beginning of sedation, infusion, injection of imaging exam. Discontinue saline lock post exam. If Pt. has a central line or IVAD, may access for administration according to line specific nursing protocol. Once exam is complete flush line and de-access according to line specific nursing protocol in the CT contrast administration guidelines link. 1 Each 05/23/2024 Active Start: 05-23-2024 iv contrast (w ill be provided with radiology test) Indications: Endometrial cancer (HCC) , Carcinomatosis (HCC) CT ABD/PEL -Inject, intravenously, once for 1 dose.No IV access, insert saline lock prior to the beginning of sedation, infusion, injection of imaging exam. Discontinue saline lock post exam. If Pt. has a central line or IVAD, may access for administration according to line specific nursing protocol. Once exam is complete flush line and de-access according to line specific nursing protocol in the CT contrast administration guidelines link. 1 Each 05/23/2024 Active Start: 03-15-2024 End: 07-03-2024 iv contrast (will be provide d with radiology test) Indications: Endometrial cancer (HCC) , Carcinomatosis (HCC) CT Chest W -Inject, intravenously, once for 1 dose.No IV access, insert saline lock prior to the beginning of sedation, infusion, injection of imaging exam. Discontinue saline lock post exam. If Pt. has a central line or IVAD, may access for administration according to line specific nursing protocol. Once exam is complete flush line and de-access according to line specific nursing protocol in the CT contrast administration guidelines link. 1 Each 03/15/2024 07/03/2024 Discontinued Start: 03-15-2024 End: 07-03-2024 iv contrast (will be provide d with radiology test) Indications: Endometrial cancer (HCC) , Carcinomatosis (HCC) CT ABD/PEL -Inject, intravenously, once for 1 dose.No IV access, insert saline lock prior to the beginning of sedation, infusion, injection of imaging exam. Discontinue saline lock post exam. If Pt. has a central line or IVAD, may access for administration according to line specific nursing protocol. Once exam is complete flush line and de-access according to line specific nursing protocol in the CT contrast administration guidelines link. 1 Each 03/15/2024 07/03/2024 Discontinued Start: 03-15-2024 iv contrast (w ill be provided with radiology test) Indications: Endometrial cancer (HCC) , Carcinomatosis (HCC) CT Chest W -Inject, intravenously, once for 1 dose.No IV access, insert saline lock prior to the beginning of sedation, infusion, injection of imaging exam. Discontinue saline lock post exam. If Pt. has a central line or IVAD, may access for administration according to line specific nursing protocol. Once exam is complete flush line and de-access according to line specific nursing protocol in the CT contrast administration guidelines link. 1 Each 03/15/2024 Suspended Start: 03-15-2024 iv contrast (w ill be provided with radiology test) Indications: Endometrial cancer (HCC) , Carcinomatosis (HCC) CT ABD/PEL -Inject, intravenously, once for 1 dose.No IV access, insert saline lock prior to the beginning of sedation, infusion, injection of imaging exam. Discontinue saline lock post exam. If Pt. has a central line or IVAD, may access for administration according to line specific nursing protocol. Once exam is complete flush line and de-access according to line specific nursing protocol in the CT contrast administration guidelines link. 1 Each 03/15/2024 Suspended Start: 03-15-2024 iv contrast (w ill be provided with radiology test) Indications: Endometrial cancer (HCC) , Carcinomatosis (HCC) CT Chest W -Inject, intravenously, once for 1 dose.No IV access, insert saline lock prior to the beginning of sedation, infusion, injection of imaging exam. Discontinue saline lock post exam. If Pt. has a central line or IVAD, may access for administration according to line specific nursing protocol. Once exam is complete flush line and de-access according to line specific nursing protocol in the CT contrast administration guidelines link. 1 Each 03/15/2024 Active Start: 03-15-2024 iv contrast (w ill be provided with radiology test) Indications: Endometrial cancer (HCC) , Carcinomatosis (HCC) CT ABD/PEL -Inject, intravenously, once for 1 dose.No IV access, insert saline lock prior to the beginning of sedation, infusion, injection of imaging exam. Discontinue saline lock post exam. If Pt. has a central line or IVAD, may access for administration according to line specific nursing protocol. Once exam is complete flush line and de-access according to line specific nursing protocol in the CT contrast administration guidelines link. 1 Each 03/15/2024 Active Start: 01-05-2024 End: 01-06-2024 iv contrast (will be provide d with radiology test) Indications: Endometrial cancer (HCC) , Carcinomatosis (HCC) , Lung nodules CT Chest ABD/PEL-Inject, intravenously, once for 1 dose.No IV access, insert saline lock prior to the beginning of sedation, infusion, injection of imaging exam. Discontinue saline lock post exam. If Pt. has a central line or IVAD, may access for administration according to line specific nursing protocol. Once exam is complete flush line and de-access according to line specific nursing protocol in the CT contrast administration guidelines link. 1 Each 01/05/2024 01/06/2024 Active Start: 06-08-2023 End: 06-09-2023 iv contrast (will be provide d with radiology test) Indications: Endometrial cancer (HCC) CT Chest ABD/PEL-Inject, intravenously, once for 1 dose.No IV access, insert saline lock prior to the beginning of sedation, infusion, injection of imaging exam. Discontinue saline lock post exam. If Pt. has a central line or IVAD, may access for administration according to line specific nursing protocol. Once exam is complete flush line and de-access according to line specific nursing protocol in the CT contrast administration guidelines link. 1 Each 0 06/08/2023 06/09/2023 Active Start: 04-02-2023 End: 04-03-2023 iv contrast (will be provide d with radiology test) MRI Cardiac w/Qflow Inject, intravenously, once for 1 dose. No IV access, insert saline lock prior to the beginning of sedation, infusion, injection of imaging exam. Discontinue saline lock post exam. If Pt has a central line or IVAD, may access for administration according to line specific nursing protocol. Once exam is complete flush line and de-access according to line specific nursing protocol in the MR contrast administration guidelines link 1 Each 0 04/02/2023 04/03/2023 Active Start: 10-13-2022 End: 12-15-2022 iv contrast (will be provide d with radiology test) Indications: Endometrial cancer (HCC) CT Chest W -Inject, intravenously, once for 1 dose.No IV access, insert saline lock prior to the beginning of sedation, infusion, injection of imaging exam. Discontinue saline lock post exam. If Pt. has a central line or IVAD, may access for administration according to line specific nursing protocol. Once exam is complete flush line and de-access according to line specific nursing protocol in the CT contrast administration guidelines link. 1 Each 0 10/13/2022 12/15/2022 Discontinued Start: 10-13-2022 End: 12-15-2022 iv contrast (will be provide d with radiology test) Indications: Endometrial cancer (HCC) CT ABD/PEL -Inject, intravenously, once for 1 dose.No IV access, insert saline lock prior to the beginning of sedation, infusion, injection of imaging exam. Discontinue saline lock post exam. If Pt. has a central line or IVAD, may access for administration according to line specific nursing protocol. Once exam is complete flush line and de-access according to line specific nursing protocol in the CT contrast administration guidelines link. 1 Each 0 10/13/2022 12/15/2022 Discontinued Start: 10-13-2022 iv contrast (w ill be provided with radiology test) Indications: Endometrial cancer (HCC) CT Chest W -Inject, intravenously, once for 1 dose.No IV access, insert saline lock prior to the beginning of sedation, infusion, injection of imaging exam. Discontinue saline lock post exam. If Pt. has a central line or IVAD, may access for administration according to line specific nursing protocol. Once exam is complete flush line and de-access according to line specific nursing protocol in the CT contrast administration guidelines link. 1 Each 0 10/13/2022 Active Start: 10-13-2022 iv contrast (w ill be provided with radiology test) Indications: Endometrial cancer (HCC) CT ABD/PEL -Inject, intravenously, once for 1 dose.No IV access, insert saline lock prior to the beginning of sedation, infusion, injection of imaging exam. Discontinue saline lock post exam. If Pt. has a central line or IVAD, may access for administration according to line specific nursing protocol. Once exam is complete flush line and de-access according to line specific nursing protocol in the CT contrast administration guidelines link. 1 Each 0 10/13/2022 Active Start: 08-12-2022 End: 12-15-2022 iv contrast (will be provide d with radiology test) CT Chest ABD/PEL-Inject, intravenously, once for 1 dose.No IV access, insert saline lock prior to the beginning of sedation, infusion, injection of imaging exam. Discontinue saline lock post exam. If Pt. has a central line or IVAD, may access for administration according to line specific nursing protocol. Once exam is complete flush line and de-access according to line specific nursing protocol in the CT contrast administration guidelines link. 1 Each 0 08/12/2022 12/15/2022 Discontinued Start: 08-12-2022 iv contrast (w ill be provided with radiology test) CT Chest ABD/PEL-Inject, intravenously, once for 1 dose.No IV access, insert saline lock prior to the beginning of sedation, infusion, injection of imaging exam. Discontinue saline lock post exam. If Pt. has a central line or IVAD, may access for administration according to line specific nursing protocol. Once exam is complete flush line and de-access according to line specific nursing protocol in the CT contrast administration guidelines link. 1 Each 0 08/12/2022 Active Start: 06-11-2022 End: 06-12-2022 iv contrast (will be provide d with radiology test) Indications: Abnormal ultrasound , Adnexal cyst CT ABD/PEL -Inject, intravenously, once for 1 dose.No IV access, insert saline lock prior to the beginning of sedation, infusion, injection of imaging exam. Discontinue saline lock post exam. If Pt. has a central line or IVAD, may access for administration according to line specific nursing protocol. Once exam is complete flush line and de-access according to line specific nursing protocol in the CT contrast administration guidelines link. 1 Each 0 06/11/2022 06/12/2022 Active Comment on above: CT ABD/PEL -Inject, intravenously, once for 1 dose.No IV access, insert saline lock prior to the beginning of sedation, infusion, injection of imaging exam. Discontinue saline lock post exam. If Pt. has a central line or IVAD, may access for administration according to line specific nursing protocol. Once exam is complete flush line and de-access according to line specific nursing protocol in the CT contrast administration guidelines link. CT Chest ABD/PEL-Inj ect, intravenously, once for 1 dose.No IV access, insert saline lock prior to the beginning of sedation, infusion, injection of imaging exam. Discontinue saline lock post exam. If Pt. has a central line or IVAD, may access for administration according to line specific nursing protocol. Once exam is complete flush line and de-access according to line specific nursing protocol in the CT contrast administration guidelines link. CT Chest W -Inject, intravenously, once for 1 dose.No IV access, insert saline lock prior to the beginning of sedation, infusion, injection of imaging exam. Discontinue saline lock post exam. If Pt. has a central line or IVAD, may access for administration according to line specific nursing protocol. Once exam is complete flush line and de-access according to line specific nursing protocol in the CT contrast administration guidelines link. MRI Cardiac w/Qflow Inject, intravenously, once for 1 dose. No IV access, insert saline lock prior to the beginning of sedation, infusion, injection of imaging exam. Discontinue saline lock post exam. If Pt has a central line or IVAD, may access for administration according to line specific nursing protocol. Once exam is complete flush line and de-access according to line specific nursing protocol in the MR contrast administration guidelines link lidocaine 25 mg/ml / prilocaine 25 mg/ml topical cream (20 sources) Antiarrhythmic, Amide Local Anesthetic Start: 08-26-19 lidocaine-prilocai ne (EMLA) 2.5-2.5 % cream Apply to affected area as needed. 30 g 2 08/25/2022 Active Comment on above: Apply to affected ar ea as needed. magnesium chloride 598 mg delayed release oral tablet (20 sources) Start: 10-14-19 23 take 1 tablet by mouth twice daily Magnesium Chloride (SLOW-MAG) 71.5 mg TbEC Take 1 tablet by mouth twice daily. 60 tablet 5 10/13/2022 Active Comment on above: Take 1 tablet by nell twice daily. metFORMIN hydrochloride 500 mg oral tablet (20 sources) Biguanide Start: 05-06-19 21 End: 05-31-19 25 take 2 tablets by mouth twice daily at mealtime metFORMIN (GLUCOPHAGE) 500 mg tablet Take 2 tablets by mouth two times a day with meals. . 360 tablet 3 05/30/2024 Active Comment on above: Take 2 tablets by mo uth twice daily with meals. . Take 2 tablets by mo msh two times a day with meals. . ondansetron 8 mg oral tablet (20 sources) Serotonin-3 Receptor Antagonist Start: 05-26-19 take 1 tablet by mouth every eight hours as needed for nausea ondansetron (ZOFRAN) 8 mg tablet Indications: cancer chemotherapy-induc ed nausea and vomiting Take 1 tablet by mouth every 8 hours as needed for nausea/vomiting. 30 tablet 2 05/25/2024 Active Start: 04-25-2024 End: 04-25-2024 8 mg, INTRAVENOUS, ONCE, 1 d ose, On Wed04/25/24 at 1400 Start: 12-29-2022 take 8 mg by mouth e very twelve hours Ondansetron Hcl Active 8 MG PO Q12H December 28, 2022 11:00pm Start: 08-14-2022 End: 08-24-2023 take 1 tablet by mouth every eight hours as needed for nausea ondansetron (ZOFRAN) 8 mg tablet Indications: cancer chemotherapy-induced nausea and vomiting Take 1 tablet by mouth every 8 hours as needed for nausea/vomiting. 30 tablet 2 08/14/2022 08/24/2023 Discontinued (Course of therapy completed) Comment on above: Take 1 tablet by nell every 8 hours as needed for nausea/vomiting. oxyCODONE hydrochloride 5 mg oral tablet (1 source) Opioid Agonist Start: End: take 1 tablet by mouth every six hours as needed for pain oxyCODONE IR (ROXICODONE) 5 mg immediate release tablet Indications: Endometrial cancer (HCC) , Acute postoperative pain Take 1 tablet by mouth every 6 hours as needed for pain for up to 5 days. 8 tablet 0 07/24/2022 07/29/2022 Active Comment on above: Take 1 tablet by nell th every 6 hours as needed for pain for up to 5 days. OXYGEN, HOME THERAPY, (10 sources) OXYGEN, HOME THERAPY, Inhale 2 L/min as instructed continuous. Active polyethylene glycol [id number] [id number] mg / potassium chloride 2980 mg / sodium bicarbonate 6720 mg / sodium chloride 5840 mg / sodium sulfate 10522 mg powder for oral solution (1 source) Osmotic Laxative Start: End: 04-08-2 022 peg 3350-electrolytes (COLYTE) 240-22.72-6.72 -5.84 gram solution Indications: Special screening for malignant neoplasms, colon Take 4,000 mL by mouth one time only for 1 dose. 4000 mL 0 06/06/2021 06/06/2021 Active Comment on above: Take 4,000 mL by nell th one time only for 1 dose. triamcinolone acetonide 0.001 mg/mg topical ointment (20 sources) Corticosteroid Start: 024 End: triamcinolone acetonide (KENALOG) 0.1 % ointment Indications: Psoriasis Apply to affected area two times a day. 80 g 2 09/10/2023 09/09/2024 Active valsartan 80 mg oral tablet (20 sources) Angiotensin 2 Receptor Nathaly Start: End: take 2 tablets by mouth once daily at bedtime valsartan (DIOVAN) 80 mg tablet Take 2 tablets by mouth daily at bedtime. 180 tablet 08/23/2024 11/21/2024 Active Start: 07-13-2024 End: 08-23-2024 take 2 tablets by mouth once daily at bedtime valsartan (DIOVAN) 40 mg tablet Take 2 tablets by mouth once daily. at bedtime. 60 tablet 2 07/13/2024 08/23/2024 Discontinued Start: 05-10-2024 take 1 tablet by nell th once daily valsartan (DIOVAN) 40 mg tablet Take 1 tablet by mouth once daily. 90 tablet 05/10/2024 Active Start: 06-29-2023 End: 05-03-2024 take 1 tablet by mouth twice daily valsartan (DIOVAN) 80 mg tablet Take 1 tablet by mouth two times a day. 180 tablet 3 06/29/2023 05/03/2024 Discontinued (Adjust Sig - Block E-Cancel) Start: 05-03-2023 End: 06-29-2023 take 1 tablet by mouth once daily valsartan (DIOVAN) 40 mg tablet Take 1 tablet by mouth once daily. 90 tablet 3 06/29/2023 06/29/2023 Discontinued (Adjust Sig - Block E-Cancel) Comment on above: Take 1 tablet by nell th once daily. vitamin b complex capsule (3 sources) take 1 capsule by mouth once daily vitamin b complex capsule Take 1 capsule by mouth once daily. Active Completed/Discontinued Medications Medication Drug Class(es) Dates Sig (Normalized) Sig (Original) acetaminophen 325 mg / oxyCODONE hydrochloride 5 mg oral tablet (1 source) Opioid Agonist Start: 03-24-2023 End: 03-29-2023 take 1 tablet by mouth every eight hours as needed for pain oxyCODONE-acetamin ophen (PERCOCET) 5-325 mg tablet Indications: Chronic right shoulder pain Take 1 tablet by mouth every 8 hours as needed for pain for up to 5 days. 15 tablet 03/24/2023 03/29/2023 [id number] 200 actuat albuterol 0.09 mg/actuat metered dose inhaler (11 sources) beta2-Adrenergic Agonist Start: 02-23-2018 End: 10-08-2021 take 2 puff(s) by inhalation every four hours as needed for wheezing albuterol HFA (VENTOLIN HFA) 90 mcg/actuation inhaler Inhale 2 Puffs as instructed every 4 hours as needed for Wheezing/Shortness of Breath. 1 Inhaler 11 02/23/2018 10/08/2021 Discontinued (Discontinued by Patient) Comment on above: Inhale 2 Puffs as in structed every 4 hours as needed for Wheezing/Shortness of Breath. albuterol 0.833 mg/ml / ipratropium bromide 0.167 mg/ml inhalation solution (17 sources) Anticholinergic, beta2-Adrenergic Agonist Start: 05-09-2024 End: 07-03-2024 take 3 mL by inhalation every four hours as needed ipratropium-albute rol (DUONEB) 0.5 mg-3 mg(2.5 mg base)/3 mL nebu Inhale 3 mL as instructed every 4 hours as needed for wheezing/shortness of breath. 05/09/2024 07/03/2024 Discontinued benzocaine 15 mg / menthol 3.6 mg oral lozenge (17 sources) Standardized Chemical Allergen Start: 05-09-2024 End: 07-03-2024 benzocaine-menthol (CEPACOL) 15-3.6 mg lozg Use 1 Lozenge as instructed every 2 hours as needed (Cough 1st line). 05/09/2024 07/03/2024 Discontinued benzonatate 100 mg oral capsule (17 sources) Non-narcotic Antitussive Start: 05-09-2024 End: 07-03-2024 take 1 capsule by mouth every eight hours as needed benzonatate (TESSALON PERLE) 100 mg capsule Take 1 capsule by mouth three times a day as needed for cough (cough 2nd line). 05/09/2024 07/03/2024 Discontinued bevacizumab-awwb 1,300 mg in NaCl 0.9% 162 mL (MVASI) (4 sources) Start: 10-25-2024 End: 10-25-2024 1,300 mg (rounded from 1,374 mg = 10 mg/kg/dose 137.4 kg Treatment plan Recorded weight), INTRAVENOUS, Administer over 30 Minutes, ONCE, 1 dose, On Wed10/25/24 at 1030, Approx Total Volume - Expires: 10/26/24 @ 1025 - DO NOT SHAKE Refrigerate, Medication Substitution: [facility] preferred product has been replaced with the insurance mandated product Start: 09-13-2024 End: 09-13-2024 1,300 mg (rounded from 1,374 mg = 10 mg/kg/dose 137.4 kg Treatment plan Recorded weight), INTRAVENOUS, Administer over 30 Minutes, ONCE, 1 dose, On Wed09/13/24 at 1130, Approx Total Volume - Expires: 09/14/24 @ 1115 - DO NOT SHAKE Refrigerate, Medication Substitution: [facility] preferred product has been replaced with the insurance mandated product Start: 08-23-2024 End: 08-23-2024 1,300 mg (rounded from 1,306 mg = 10 mg/kg/dose 130.6 kg Treatment plan Recorded weight), INTRAVENOUS, Administer over 30 Minutes, ONCE, 1 dose, On Wed08/23/24 at 1130, Approx Total Volume - Expires: 08/24/24 @ 1140 - DO NOT SHAKE Refrigerate, Medication Substitution: [facility] preferred product has been replaced with the insurance mandated product Start: 08-01-2024 End: 08-01-2024 1,300 mg (rounded from 1,306 mg = 10 mg/kg/dose 130.6 kg Treatment plan Recorded weight), INTRAVENOUS, Administer over 30 Minutes, ONCE, 1 dose, On Wed08/01/24 at 1100, exp 1900 08/01/24 (room temp). -- DO NOT SHAKE Refrigerate, Medication Substitution: [facility] preferred product has been replaced with the insurance mandated product bevacizumab-awwb 1,900 mg in NaCl 0.9% 186 mL (MVASI) (1 source) Start: 07-11-2024 End: 07-11-2024 1,900 mg (rounded from 1,959 mg = 15 mg/kg/dose 130.6 kg Treatment plan Recorded weight), INTRAVENOUS, Administer over 30 Minutes, ONCE, 1 dose, On Wed07/11/24 at 1030, exp immediate use (room temp) -- DO NOT SHAKE Refrigerate, Medication Substitution: [facility] preferred product has been replaced with the insurance mandated product calcium carbonate 500 mg chewable tablet (17 sources) Start: 05-09-2024 End: 07-03-2024 take 1000 mg by mouth every eight hours as needed calcium carbonate (TUMS) 500 mg chew Take 2 tablets by mouth three times a day as needed (GERD 1st line). 05/09/2024 07/03/2024 Discontinued CARBOplatin 447.6 mg in NaCl 0.9% 319.76 mL (PARAPLATIN) (1 source) Start: 03-23-2024 End: 03-23-2024 447.6 mg (Target AUC = 4), INTRAVENOUS, Administer over 30 Minutes, ONCE, 1 dose, On Myrna 03/23/24 at 1130, exp 1200 03/24/24 (room temp) Hazardous Chemotherapy Drug: Use appropriate PPE. Antineoplastic Irritant. CARBOplatin 588 mg in NaCl 0.9% 333.8 mL (PARAPLATIN) (1 source) Start: 11-24-2023 End: 11-24-2023 588 mg (Target AUC = 6), INTRAVENOUS, Administer over 30 Minutes, ONCE, 1 dose, On 11/24/23 at 1200, exp 1200 11/25/23 (room temp) Hazardous Chemotherapy Drug: Use appropriate PPE. Antineoplastic Irritant. CARBOplatin 600 mg in NaCl 0.9% 335 mL (PARAPLATIN) (2 sources) Start: 01-13-2024 End: 01-13-2024 600 mg (rounded from 623 mg, Target AUC = 5), INTRAVENOUS, Administer over 30 Minutes, ONCE, 1 dose, On Myrna 01/13/24 at 1300, exp 1230 01/14/24 (room temp) Hazardous Chemotherapy Drug: Use appropriate PPE. Antineoplastic Irritant. Start: 12-16-2023 End: 12-16-2023 600 mg (rounded from 616.2 m g, Target AUC = 6), INTRAVENOUS, Administer over 30 Minutes, ONCE, 1 dose, On Myrna 12/16/23 at 1000, exp 1000 12/17/23 (room temp) Hazardous Chemotherapy Drug: Use appropriate PPE. Antineoplastic Irritant. cefdinir 300 mg oral capsule (20 sources) Cephalosporin Antibacterial Start: 03-12-2023 End: 08-24-2023 take 1 capsule by mouth twice daily cefdinir (OMNICEF) 300 mg capsule Take 300 mg by mouth two times a day. 03/12/2023 08/24/2023 Discontinued (Course of therapy completed) Comment on above: Take 300 mg by mouth two times a day. cholecalciferol 0.125 mg oral capsule (20 sources) Vitamin D Start: 12-23-2022 End: 12-29-2022 take 125 ug by mouth once daily Cholecalciferol (Vitamin D3) Discontinued 125 MCG PO DAILY December 22, 2022 11:00pm December 29, 2022 9:31am End: 10-13-2022 take 1 capsule by mouth once daily Cholecalciferol, Vitamin D3, 125 mcg (5,000 unit) cap Take 5,000 Units by mouth once daily. 0 10/13/2022 Discontinued Comment on above: Take 5,000 Units by mouth once daily. Cinnamon Preparation (20 sources) Non-Standardized Food Allergenic Extract End: 10-13-2022 CINNAMON End: 10-08-2021 CINNAMON CINNAMON ciprofloxacin 500 mg oral tablet (7 sources) Quinolone Antimicrobial Start: 06-05-2022 End: 06-12-2022 take 1 tablet by mouth twice daily ciprofloxacin HCl (CIPRO) 500 mg tablet Indications: Acute cystitis with hematuria Take 1 tablet by mouth twice daily for 7 days. 14 tablet 0 06/05/2022 06/12/2022 Start: 04-09-2022 End: 04-19-2022 take 1 tablet by mouth twice daily ciprofloxacin HCl (CIPRO) 500 mg tablet Indications: Acute cystitis with hematuria Take 1 tablet by mouth twice daily for 10 days. 20 tablet 0 04/09/2022 04/19/2022 Comment on above: Take 1 tablet by nell twice daily for 10 days. Take 1 tablet by nell twice daily for 7 days. 1 ml dexamethasone phosphate 10 mg/ml injection (20 sources) Corticosteroid Start: 03-23-2024 End: 03-23-2024 10 mg, INTRAVENOUS, ONCE, 1 dose, On Myrna 03/23/24 at 1100, Administer over 5 minutes. Start: 01-13-2024 End: 01-13-2024 10 mg, INTRAVENOUS, ONCE, 1 dose, On Myrna 01/13/24 at 1230, Administer over 5 minutes. Start: 12-16-2023 End: 12-16-2023 10 mg, INTRAVENOUS, ONCE, 1 dose, On Myrna 12/16/23 at 0930, Administer over 5 minutes. Start: 09-03-2022 End: 09-03-2022 dexAMETHasone 10 mg tab(s) ( DECADRON) Start: 08-14-2022 End: 02-18-2023 dexAMETHasone (DECADRON) 4 m g tablet Take 5 tablets 12 and 6 hours prior to chemotherapy treatment. 10 tablet 5 08/14/2022 02/18/2023 Discontinued Comment on above: Take 5 tablets 12 an d 6 hours prior to chemotherapy treatment. dexAMETHasone 10 mg in NaCl 0.9% 50 mL (DECADRON) (1 source) Start: End: 10 mg, INTRAVENOUS, ONCE, 1 dose, On Wed11/24/23 at 1130, Refrigerate. dulaglutide (TRULICITY) 3 mg/0.5 mL pen injector (20 sources) Start: 022 End: inject 3 mg by subcutaneous injection every week dulaglutide (TRULICITY) 3 mg/0.5 mL pen injector Indications: Type 2 diabetes mellitus without complication, with no history of insulin use (HCC) Inject 3 mg subcutaneously one time a week. Patient Assistance Medication. 2 mL 1 10/08/2021 08/23/2024 Discontinued Start: 10-08-2021 inject 3 mg by subcu taneous injection every week dulaglutide (TRULICITY) 3 mg/0.5 mL pen injector Indications: Type 2 diabetes mellitus without complication, with no history of insulin use (HCC) Inject 3 mg subcutaneously one time a week. Patient Assistance Medication. 2 mL 1 10/08/2021 Suspended Start: 10-08-2021 inject 3 mg by subcu taneous injection every week dulaglutide (TRULICITY) 3 mg/0.5 mL pen injector Indications: Type 2 diabetes mellitus without complication, with no history of insulin use (HCC) Inject 3 mg subcutaneously one time a week. Patient Assistance Medication. 2 mL 1 10/08/2021 Active Comment on above: Inject 3 mg subcutan eously one time a week. Patient Assistance Medication. DULoxetine 60 mg delayed release oral capsule (20 sources) Serotonin and Norepinephrine Reuptake Inhibitor Start: End: take 1 capsule by mouth once daily DULoxetine (CYMBALTA) 60 mg capsule Take 1 capsule by mouth once daily 30 capsule 01/10/2024 08/23/2024 Discontinued empagliflozin 10 mg oral tablet (20 sources) Sodium-Glucose Cotransporter 2 Inhibitor Start: End: take 1 tablet by mouth once daily empagliflozin (JARDIANCE) 10 mg tablet Take 10 mg by mouth once daily. 12/29/2022 04/02/2023 Discontinued Comment on above: Take 10 mg by mouth. Take 10 mg by mouth once daily. 14 actuat fluticasone furoate 0.1 mg/actuat / vilanterol 0.025 mg/actuat dry powder inhaler (20 sources) Corticosteroid, beta2-Adrenergic Agonist Start: End: take 1 dose by inhalation once daily fluticasone-vilanter ol (BREO ELLIPTA) 100-25 mcg/dose inhaler Inhale 1 Inhalation as instructed once daily. 1 Each 5 12/21/2023 08/23/2024 Discontinued furosemide 20 mg oral tablet (20 sources) Loop Diuretic Start: End: take 1 tablet by mouth once daily furosemide (LASIX) 20 mg tablet Take 1 tablet by mouth once daily. 90 tablet 3 12/09/2023 05/03/2024 Discontinued (Adjust Sig - Block E-Cancel) gemcitabine 1,992 mg in NaCl 0.9% 327.3896 mL (GEMZAR) (1 source) Start: End: 1,992 mg (800 mg/m2 2.49 m2 Treatment Plan BSA from Recorded weight), INTRAVENOUS, Administer over 30 Minutes, ONCE, 1 dose, On Wed04/25/24 at 1430, exp 199904/26/24 (room temp) Hazardous Chemotherapy Drug: Use appropriate PPE. Antineoplastic Irritant. ibuprofen 600 mg oral tablet (20 sources) Nonsteroidal Anti-inflammatory Drug Start: End: take 1 tablet by mouth every six hours as needed ibuprofen (MOTRIN) 600 mg tablet Take 1 tablet by mouth every 6 hours as needed for pain. Take with food. 60 tablet 0 07/24/2022 10/13/2022 Discontinued Comment on above: Take 1 tablet by nell th every 6 hours as needed for pain. Take with food. 3 ml insulin aspart, human 100 unt/ml pen injector (1 source) Insulin Analog Start: insulin aspart U-100 (NOVOLOG FLEXPEN U-100 INSULIN) 100 unit/mL (3 mL) Indications: Type 2 diabetes mellitus without complication, with no history of insulin use (HCC) , Elevated glucose BG is: 400 Call MDLorin 1 Each 11/13/2022 Active Comment on above: BG is: <150 Give 0 u 151-200 Give 1 unit 201-250 Give 2 units 251-300 Give 3 units 301-350 Give 4 units 351-400 Give 5 units >400 Call MD. 3 ml insulin lispro 100 unt/ml pen injector (20 sources) Insulin Analog Start: End: insulin lispro (HUMALOG KWIKPEN INSULIN) 100 unit/mL Indications: Type 2 diabetes mellitus without complication, with no history of insulin use (HCC) Use 2-5 units per sliding scale, 4 times daily as needed. BG is: 400 Call 2 Each 11/26/2022 12/30/2022 Discontinued (Changing Therapy/Dosage Form) Start: 11-24-2022 End: 11-26-2022 insulin lispro (HUMALOG KWIK PEN INSULIN) 100 unit/mL Indications: Type 2 diabetes mellitus without complication, with no history of insulin use ([facility]) BG is: 400 Call MD. 1 Each 11/24/2022 11/26/2022 Discontinued Comment on above: Use 2-5 units per sl iding scale, 4 times daily as needed. BG is: <150 Give 0 u 151-200 Give 1 unit 201-250 Give 2 units 251-300 Give 3 units 301-350 Give 4 units 351-400 Give 5 units >400 Call MD. BG is: <150 Give 0 u 151-200 Give 1 unit 201-250 Give 2 units 251-300 Give 3 units 301-350 Give 4 units 351-400 Give 5 units >400 Call MD. levoFLOXacin 750 mg oral tablet (5 sources) Quinolone Antimicrobial Start: 3 End: 4 take 750 mg by mouth once daily Levofloxacin Discontinued 750 MG PO DAILY 5 January 26, 2023 12:00am March 10, 2023 4:47pm lisinopril 2.5 mg oral tablet (20 sources) Angiotensin Converting Enzyme Inhibitor Start: 3 End: 4 take 2.5 mg by mouth once daily Lisinopril Discontinued 2.5 MG PO DAILY December 28, 2022 11:00pm March 10, 2023 2:12pm Start: 05-05-2020 End: 12-23-2022 take 2 tablets by mouth once daily lisinopril (ZESTRIL) 5 mg tablet Indications: Essential hypertension, benign Take 2 tablets by mouth once daily. 90 tablet 3 10/13/2022 12/15/2022 Discontinued Start: 04-10-2020 End: 12-23-2022 take 1 tablet by mouth once daily Lisinopril Discontinued 1 TABLET PO DAILY May 05, 2020 12:00am December 23, 2022 1:41pm Comment on above: Take 1 tablet by nell th once daily. Take 2 tablets by mo uth once daily. Take 2.5 mg by mouth once daily. Magnesium (8 sources) End: 10-13-2022 Magnesium 250 mg tab Take 325 mg by mouth once daily. 0 10/13/2022 Discontinued Magnesium 250 mg tab Take 325 mg by mouth once daily. 0 Active Comment on above: Take 325 mg by mouth once daily. 50 ml magnesium sulfate 40 mg/ml injection (5 sources) Start: End: take 2 g intravenously every hour 2 g, INTRAVENOUS, at 25-50 mL/hr, Administer over 1-2 Hours, ONCE, 1 dose, On Myrna 03/23/24 at 1100, Magnesium sulfate iv bolus will be infused at a rate of 1 gram/hr The following nursing units may administer 2 g dose over 1 hour if necessary: ICUs/PACU/ED, Adult Hematology/Oncology, Labor and Delivery, Cardiac Stepdown, Headache Clinic If necessary, a magnesium sulfate bolus may be administered greater than 2 g/hr for the following indications: Adult and Pediatric Asthma Exacerbations, [place], Pediatric BMT and Hematology/Oncology, Eclampsia or Preeclampsia Start: 03-23-2024 End: 03-23-2024 take 2 g intravenously every hour 4 g, INTRAVENOUS, at 25-50 mL/hr, Administer over 2-4 Hours, ONCE, 1 dose, On Myrna 03/23/24 at 1100, Magnesium 1.4 to 1.6 infuse 4gm Magnesium Sulfate IV over 2 hours. Magnesium sulfate iv bolus will be infused at a rate of 1 gram/hr The following nursing units may administer 2 g dose over 1 hour if necessary: ICUs/PACU/ED, Adult Hematology/Oncology, Labor and Delivery, Cardiac Stepdown, Headache Clinic If necessary, a magnesium sulfate bolus may be administered greater than 2 g/hr for the following indications: Adult and Pediatric Asthma Exacerbations, [place], Pediatric BMT and Hematology/Oncology, Eclampsia or Preeclampsia Start: 02-03-2024 End: 02-03-2024 take 2 g intravenously every hour 2 g, INTRAVENOUS, at 25-50 mL/hr, Administer over 1-2 Hours, ONCE, 1 dose, On Myrna 02/03/24 at 1130, Total 6 gm Magnesium sulfate iv bolus will be infused at a rate of 1 gram/hr The following nursing units may administer 2 g dose over 1 hour if necessary: ICUs/PACU/ED, Adult Hematology/Oncology, Labor and Delivery, Cardiac Stepdown, Headache Clinic If necessary, a magnesium sulfate bolus may be administered greater than 2 g/hr for the following indications: Adult and Pediatric Asthma Exacerbations, [place], Pediatric BMT and Hematology/Oncology, Eclampsia or Preeclampsia Start: 02-03-2024 End: 02-03-2024 take 2 g intravenously every hour 4 g, INTRAVENOUS, at 25-50 mL/hr, Administer over 2-4 Hours, ONCE, 1 dose, On Myrna 02/03/24 at 1130, Total 6 Gm today Magnesium sulfate iv bolus will be infused at a rate of 1 gram/hr The following nursing units may administer 2 g dose over 1 hour if necessary: ICUs/PACU/ED, Adult Hematology/Oncology, Labor and Delivery, Cardiac Stepdown, Headache Clinic If necessary, a magnesium sulfate bolus may be administered greater than 2 g/hr for the following indications: Adult and Pediatric Asthma Exacerbations, [place], Pediatric BMT and Hematology/Oncology, Eclampsia or Preeclampsia Start: 01-13-2024 End: 01-13-2024 take 2 g intravenously every hour 4 g, INTRAVENOUS, at 25-50 mL/hr, Administer over 2-4 Hours, ONCE, 1 dose, On Myrna 01/13/24 at 1230, Magnesium 1.4 to 1.6 infuse 4gm Magnesium Sulfate IV over 2 hours. Magnesium sulfate iv bolus will be infused at a rate of 1 gram/hr The following nursing units may administer 2 g dose over 1 hour if necessary: ICUs/PACU/ED, Adult Hematology/Oncology, Labor and Delivery, Cardiac Stepdown, Headache Clinic If necessary, a magnesium sulfate bolus may be administered greater than 2 g/hr for the following indications: Adult and Pediatric Asthma Exacerbations, [place], Pediatric BMT and Hematology/Oncology, Eclampsia or Preeclampsia meclizine hydrochloride 25 mg oral tablet (20 sources) Antiemetic Start: 03-26-2020 End: 12-23-2022 take 1 tablet by mouth every six hours as needed meclizine (ANTIVERT) 25 mg tab Take 1 tablet by mouth every 6 hours as needed (dizziness). 20 tablet 2 03/26/2020 10/08/2021 Discontinued (Discontinued by Patient) End: 02-18-2023 take 1 tablet by mouth every eight hours as needed meclizine (ANTIVERT) 25 mg tab Take 25 mg by mouth three times a day as needed (as needed for dizziness and nausea). 0 02/18/2023 Discontinued Comment on above: Take 1 tablet by nell th every 6 hours as needed (dizziness). Take 25 mg by mouth three times a day as needed (as needed for dizziness and nausea). melatonin 3 mg oral tablet (17 sources) Start: 5 End: 5 take 1 tablet by mouth every twenty-four hours as needed melatonin 3 mg tablet Take 1 tablet by mouth at bedtime as needed (insomnia 1st line). 05/09/2024 07/03/2024 Discontinued meloxicam 15 mg oral tablet (20 sources) Nonsteroidal Anti-inflammatory Drug Start: 1 End: 3 take 15 mg by mouth once daily Meloxicam Discontinued 15 MG PO DAILY December 22, 2022 11:00pm December 23, 2022 1:41pm Start: 05-27-2020 End: 09-23-2020 take 1 tablet by mouth once daily at mealtime meloxicam (MOBIC) 15 mg tablet Indications: Acute pain of right shoulder Take 1 tablet by mouth once daily. With food. 30 tablet 3 05/27/2020 09/23/2020 Discontinued Comment on above: Take 1 tablet by nell th once daily. With food. Take 15 mg by mouth once daily. Not currently taking naproxen 500 mg oral tablet (18 sources) Nonsteroidal Anti-inflammatory Drug Start: 4 End: 4 take 1 tablet by mouth twice daily as needed for pain naproxen (NAPROSYN) 500 mg tablet Indications: Left sided sciatica , Chronic right shoulder pain Take 1 tablet by mouth two times a day as needed (pain/inflammation, take with food.). 60 tablet 0 08/24/2023 10/13/2023 Discontinued (Course of therapy completed) nutritional supplement/fiber (KETO FORMULA ORAL) (20 sources) End: 3 nutritional supplement/fiber (KETO FORMULA ORAL) Take 800 mg by mouth. 0 10/13/2022 Discontinued nutritional supp lement/fiber (KETO FORMULA ORAL) Take 800 mg by mouth. 0 Active Comment on above: Take 800 mg by mouth . omeprazole 40 mg delayed release oral capsule (20 sources) Proton Pump Inhibitor Start: 3 End: 3 take 1 capsule by mouth once daily omeprazole (PRILOSEC) 40 mg capsule Take 1 capsule by mouth once daily. 30 capsule 2 12/04/2022 01/12/2023 Discontinued Comment on above: Take 1 capsule by [facility] once daily. Take 40 mg by mouth once daily. Not currently taking 5 ml palonosetron 0.05 mg/ml injection (4 sources) Serotonin-3 Receptor Antagonist Start: End: 0.25 mg, INTRAVENOUS, ONCE, 1 dose, On Myrna 03/23/24 at 1100, Flush IV line with NS prior to and following administration. Start: 01-13-2024 End: 01-13-2024 0.25 mg, INTRAVENOUS, ONCE, 1 dose, On Myrna 01/13/24 at 1230, Flush IV line with NS prior to and following administration. Start: 12-16-2023 End: 12-16-2023 0.25 mg, INTRAVENOUS, ONCE, 1 dose, On Myrna 12/16/23 at 0930, Flush IV line with NS prior to and following administration. Start: 11-24-2023 End: 11-24-2023 0.25 mg, INTRAVENOUS, ONCE, 1 dose, On Wed11/24/23 at 1130, Flush IV line with NS prior to and following administration. 4 ml pembrolizumab 25 mg/ml injection (20 sources) Programmed Receptor-1 Blocking Antibody Start: 09-24-2022 End: 08-06-2023 pembrolizumab (KEYTRUDA) 25 mg/mL injection Inject 200 mg intravenously every 3 weeks for 16 doses. 8 mL 11 09/24/2022 08/06/2023 Comment on above: Inject 200 mg intrav enously every 3 weeks for 16 doses. phenazopyridine hydrochloride 100 mg oral tablet (5 sources) Start: 06-05-2022 End: 06-15-2022 take 2 tablets by mouth three times daily as needed for pain phenazopyridine (PYRIDIUM) 100 mg tablet Indications: Acute cystitis with hematuria Take 2 tablets by mouth three times daily as needed for pain for up to 10 days. 60 tablet 0 06/05/2022 06/15/2022 Comment on above: Take 2 tablets by [facility] three times daily as needed for pain for up to 10 days. polyethylene glycol 3350 24131 mg powder for oral solution (20 sources) Osmotic Laxative Start: 05-09-2024 End: 09-13-2024 polyethylene glycol 3350 17 gram packet Take 1 Packet by mouth once daily as needed. Dissolve dose in 4 - 8 ounces of liquid and take as directed. 05/09/2024 09/13/2024 Discontinued (Discontinued by Patient) regadenoson 0.4 mg injection (LEXISCAN) (1 source) Start: 12-28-2022 End: 12-28-2022 regadenoson 0.4 mg injection (LEXISCAN) sennosides, custodial 8.6 mg oral tablet (20 sources) Start: 07-24-2022 End: 01-14-2023 take 1 tablet by mouth twice daily senna (SENOKOT) 8.6 mg tab Take 1 tablet by mouth twice daily. 60 tablet 0 07/24/2022 01/14/2023 Discontinued Comment on above: Take 1 tablet by [facility] twice daily. silver sulfADIAZINE 10 mg/ml topical cream (20 sources) Sulfonamide Antibacterial Start: 11-03-2022 End: 09-13-2024 silver sulfADIAZINE (SILVADENE) 1 % cream Apply to affected area once daily. 50 g 1 11/03/2022 09/13/2024 Discontinued (Discontinued by Patient) Comment on above: Apply to affected ar ea once daily. torsemide 20 mg oral tablet (20 sources) Loop Diuretic Start: 05-10-2024 End: 11-14-2024 take 1 tablet by mouth once daily torsemide (DEMADEX) 20 mg tablet Take 1 tablet by mouth once daily. 90 tablet 08/23/2024 11/14/2024 Discontinued Problems Active Problems Problem Classification Problem Date Documented Date Episodic/Chronic Abdominal pain (5 sources) Flank pain; Translations: [Unspecified abdominal pain] Onset: 12-06-2024 Episodic Administrative/social admission (2 sources) Other specified counseling; Translations: [Other specified counseling] Onset: 01-01-2025 Episodic Cancer of uterus (20 sources) Malignant neoplasm of endometrium of corpus uteri ; Translations: [Malignant neoplasm of endometrium] Onset: 07-24-2022 Chronic Cancer of uterus (8 sources) H/O: malignant neoplasm; Translations: [Personal history of malignant neoplasm of other parts of uterus] 01-24-2023 Episodic Chronic kidney disease (20 sources) Chronic kidney disease stage 3A ; Translations: [Stage 3a chronic kidney disease] Onset: 12-15-2022 Resolved: 06-08-2023 12-15-2022 Chronic Chronic kidney disease (2 sources) Chronic kidney disease; Translations: [Chronic kidney disease, stage 3 unspecified] Onset: 01-01-2025 Chronic obstructive pulmonary disease and bronchiectasis (4 sources) Moderate chronic obstructive pulmonary disease; Translations: [Chronic obstructive pulmonary disease, unspecified] 12-21-2023 Chronic Coagulation and hemorrhagic disorders (20 sources) Platelet count below reference range; Translations: [Thrombocytopenia, unspecified] Onset: 11-03-2022 Resolved: 06-08-2023 11-03-2022 Chronic Complications of surgical procedures or medical care (1 source) Anemia due to antineoplastic chemotherapy; Translations: [Anemia due to antineoplastic chemotherapy] Onset: 02-01-2024 Chronic Congestive heart failure; nonhypertensive (20 sources) Acute systolic heart failure; Translations: [Acute systolic (congestive) heart failure] Onset: 08-30-2023 12-28-2022 Chronic Coronary atherosclerosis and other heart disease (16 sources) Coronary arteriosclerosis; Translations: [Atherosclerotic heart disease of [place] coronary artery without angina pectoris] 12-29-2022 Chronic Deficiency and other anemia (2 sources) Other pancytopenia; Translations: [Other pancytopenia] 01-24-2023 Chronic Deficiency and other anemia (18 sources) Macrocytic anemia; Translations: [Nutritional anemia, unspecified] 11-19-2023 Episodic Diabetes mellitus with complications (20 sources) Secondary diabetes mellitus; Translations: [Other specified diabetes mellitus with diabetic neuropathy, unspecified] Onset: 01-14-2010 01-14-2010 Chronic Diabetes mellitus without complication (20 sources) Type 2 diabetes mellitus without complication; Translations: [Type 2 diabetes mellitus without complications] Onset: 07-13-2006 Resolved: 07-09-2015 Chronic Diabetes mellitus without complication (1 source) Increased glucose level; Translations: [Other abnormal glucose] 11-13-2022 Episodic Disorders of lipid metabolism (20 sources) Hyperlipidemia; Translations: [Hyperlipidemia, unspecified] Onset: 08-11-2006 Chronic Esophageal disorders (20 sources) Gastroesophageal reflux disease; Translations: [Gastro-esophageal reflux disease without esophagitis] Onset: 07-22-2022 07-22-2022 Chronic Essential hypertension (20 sources) Benign essential hypertension; Translations: [Essential (primary) hypertension] Onset: 08-15-2010 Chronic Gastritis and duodenitis (1 source) Chronic superficial gastritis; Translations: [Chronic superficial gastritis without bleeding] 12-04-2022 Chronic Malaise and fatigue (20 sources) Malaise and fatigue; Translations: [Other malaise] Onset: 05-02-2024 Resolved: 05-03-2024 10-13-2022 Episodic Malignant neoplasm without specification of site (20 sources) Carcinomatosis; Translations: [Disseminated malignant neoplasm, unspecified] Onset: 11-19-2023 11-19-2023 Chronic Nonspecific chest pain (6 sources) Chest pain; Translations: [Chest pain, unspecified] 12-23-2022 Episodic Nutritional deficiencies (1 source) Serum vitamin B12 low; Translations: [Deficiency of other specified B group vitamins] Episodic Other aftercare (2 sources) Surgical follow-up; Translations: [Encounter for follow-up examination after completed treatment for conditions other than malignant neoplasm] Episodic Other aftercare (1 source) Vascular disorder; Translations: [Encounter for adjustment and management of vascular access device] Episodic Other aftercare (5 sources) Drug therapy finding; Translations: [Encounter for therapeutic drug level monitoring] 12-22-2022 Episodic Other aftercare (2 sources) Post-discharge follow-up; Translations: [Encounter for follow-up examination after completed treatment for conditions other than malignant neoplasm] 09-09-2023 Episodic Other aftercare (1 source) Radiotherapy follow-up; Translations: [Encounter for follow-up examination after completed treatment for conditions other than malignant neoplasm] 04-07-2024 Episodic Other aftercare (2 sources) Encounter for palliative care; Translations: [Encounter for palliative care] Onset: 01-01-2025 Episodic Other circulatory disease (10 sources) Low blood pressure; Translations: [Hypotension, unspecified] 01-24-2023 Episodic Other circulatory disease (15 sources) Hypotension, unspecified; Translations: [Hypotension, unspecified] 01-24-2023 Episodic Other congenital anomalies (1 source) Disorder of bone; 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, unspecified] 05-27-2020 Chronic Other connective tissue disease (20 sources) History of total knee arthroplasty; Translations: [Presence of unspecified artificial knee joint] Onset: 03-01-2011 03-01-2011 Chronic Other connective tissue disease (1 source) Muscle weakness; Translations: [Muscle weakness (generalized)] 12-30-2022 Episodic Other endocrine disorders (2 sources) Hypoglycemia, unspecified; Translations: [Hypoglycemia, unspecified] Onset: 01-02-2025 Chronic Other female genital disorders (4 sources) Vaginal bleeding; Translations: [Abnormal uterine and vaginal bleeding, unspecified] Chronic Other female genital disorders (4 sources) Cyst of uterine adnexa; Translations: [Unspecified condition associated with female genital organs and menstrual cycle] Episodic Other female genital disorders (1 source) Mass of uterine adnexa; Translations: [Other specified conditions associated with female genital organs and menstrual cycle] Episodic Other inflammatory condition of skin (1 source) Scalp psoriasis; Translations: [Psoriasis, unspecified] Chronic Other inflammatory condition of skin (1 source) Psoriasis; Translations: [Psoriasis, unspecified] 09-10-2023 Chronic Other lower respiratory disease (1 source) Dyspnea on exertion; Translations: [Other forms of dyspnea] 04-20-2023 Episodic Other lower respiratory disease (4 sources) Nodule of lung; Translations: [Solitary pulmonary nodule] 08-24-2023 Episodic Other lower respiratory disease (1 source) Dyspnea; Translations: [Shortness of breath] 09-01-2023 Episodic Other lower respiratory disease (1 source) Hypoventilation; Translations: [Other abnormalities of breathing] 09-09-2023 Episodic Other nervous system disorders (2 sources) Neuropathy; Translations: [Polyneuropathy, unspecified] Chronic Other nervous system disorders (20 sources) Neuropathy caused by chemical substance; Translations: [Drug-induced polyneuropathy] Onset: 03-16-2023 12-30-2022 Chronic Other nervous system disorders (2 sources) Metabolic encephalopathy; Translations: [Metabolic encephalopathy] Onset: 05-01-2024 Chronic Other nervous system disorders (1 source) Neoplasm related pain (acute) (chronic); Translations: [Cancer associated pain] Onset: 11-16-2024 Chronic Other nervous system disorders (1 source) Drug-induced polyneuropathy; 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)] Onset: 03-16-2023 Chronic Other non-traumatic joint disorders (1 source) Shoulder pain; Translations: [Pain in right shoulder] Episodic Other non-traumatic joint disorders (2 sources) Hip pain; Translations: [Pain in left hip] 08-24-2023 Episodic Other non-traumatic joint disorders (2 sources) Chronic pain of right upper limb; Translations: [Pain in right shoulder] 08-24-2023 Episodic Other non-traumatic joint disorders (1 source) Pain in right shoulder; Translations: [Pain in joint, shoulder region] 05-27-2020 Episodic Other nutritional; endocrine; and metabolic disorders (20 sources) Body mass index 40+ - severely obese; Translations: [Morbid (severe) obesity due to excess calories] Onset: 08-15-2010 05-25-2017 Chronic Other nutritional; endocrine; and metabolic disorders (6 sources) Obesity; Translations: [Obesity, unspecified] 12-29-2022 Chronic Other nutritional; endocrine; and metabolic disorders (20 sources) Hypomagnesemia; Translations: [Hypomagnesemia] Onset: 02-02-2024 01-24-2023 Chronic Other nutritional; endocrine; and metabolic disorders (10 sources) Obesity, unspecified; Translations: [Obesity, unspecified] 12-29-2022 Chronic Other nutritional; endocrine; and metabolic disorders (4 sources) Hypomagnesemia; Translations: [Disorders of magnesium metabolism] Onset: 02-02-2024 01-24-2023 Chronic Other nutritional; endocrine; and metabolic disorders (3 sources) Alveolar hypoventilation; Translations: [Morbid (severe) obesity with alveolar hypoventilation] 09-01-2023 Chronic Other nutritional; endocrine; and metabolic disorders (20 sources) Morbid obesity; Translations: [Morbid (severe) obesity due to excess calories] Onset: 09-01-2023 09-01-2023 Chronic Other nutritional; endocrine; and metabolic disorders (1 source) Morbid (severe) obesity with alveolar hypoventilation; Translations: [Obesity hypoventilation syndrome (HCC)] Onset: 08-30-2023 Chronic Other nutritional; endocrine; and metabolic disorders (1 source) Morbid (severe) obesity due to excess calories; Translations: [Morbid (severe) obesity due to excess calories] Onset: 05-01-2024 Chronic Other nutritional; endocrine; and metabolic disorders (1 source) Body mass index (BMI) 40.0-44.9, adult; Translations: [Body mass index [BMI] 40.0-44.9, adult] Onset: 05-01-2024 Chronic Other screening for suspected conditions (not mental disorders or infectious disease) (4 sources) Ultrasound scan abnormal; Translations: [Abnormal findings on diagnostic imaging of other specified body structures] Chronic Other screening for suspected conditions (not mental disorders or infectious disease) (10 sources) CT of abdomen abnormal; Translations: [Abnormal findings on diagnostic imaging of other abdominal regions, including retroperitoneum] Episodic Maureen-; endo-; and myocarditis; cardiomyopathy (except that caused by tuberculosis or sexually transmitted disease) (20 sources) 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; 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] Onset: 06-02-2024 12-30-2022 Chronic Maureen-; endo-; and myocarditis; cardiomyopathy (except that caused by tuberculosis or sexually transmitted disease) (2 sources) Acute myocarditis; Translations: [Acute myocarditis, unspecified] 04-02-2023 Episodic Residual codes; unclassified (1 source) Obstructive sleep apnea syndrome; Translations: [Obstructive sleep apnea (adult) (pediatric)] 09-15-2023 Chronic Residual codes; unclassified (1 source) Insomnia; Translations: [Insomnia, unspecified] Episodic Residual codes; unclassified (1 source) Family history of cancer of colon; Translations: [Family history of malignant neoplasm of digestive organs] Episodic Respiratory failure; insufficiency; arrest (adult) (20 sources) Chronic hypercapnic respiratory failure; Translations: [Chronic respiratory failure with hypercapnia] Onset: 09-01-2023 09-01-2023 Chronic Secondary malignancies (20 sources) Secondary malignant neoplasm of iliac lymph nodes; Translations: [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] Onset: 03-16-2023 Chronic Secondary malignancies (2 sources) Secondary malignant neoplasm of bilateral lungs; Translations: [Secondary malignant neoplasm of right lung] 12-21-2023 Chronic Secondary malignancies (6 sources) Secondary malignant neoplasm of right lung; Translations: [Secondary malignant neoplasm of right lung] 02-11-2024 Chronic Secondary malignancies (20 sources) Secondary malignant neoplastic disease; Translations: [Secondary malignant neoplasm of unspecified site] Onset: 05-03-2024 05-03-2024 Chronic Secondary malignancies (2 sources) Secondary malignant neoplasm of lung 08-23-2024 Chronic Secondary malignancies (2 sources) Secondary malignant neoplasm of genital organs; Translations: [Secondary malignant neoplasm of genital organs] Onset: 01-01-2025 Chronic Secondary malignancies (2 sources) Secondary malignant neoplasm of unspecified site; Translations: [Secondary malignant neoplasm of unspecified site] Onset: 01-01-2025 Chronic Secondary malignancies (1 source) Secondary malignant neoplasm of right lung; Translations: [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)] Onset: 05-03-2024 Chronic Secondary malignancies (1 source) Secondary malignant neoplasm of left lung; Translations: [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)] Onset: 05-03-2024 Chronic Secondary malignancies (1 source) 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; Translations: [Secondary malignancy of iliac lymph nodes (HCC)] Onset: 03-16-2023 Chronic Secondary malignancies (1 source) Secondary malignant neoplasm of unspecified lung; Translations: [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 Onset: 05-01-2024 Unclassified (1 source) Radiology NM Onset: 11-09-2023 Unclassified (1 source) Established Patient Onset: 07-18-2024 Urinary tract infections (18 sources) Acute cystitis; Translations: [Acute cystitis with hematuria] Episodic Past or Other Problems Problem Classification Problem Date Documented Da te Episodic/Chronic Acute and unspecified renal failure (20 sources) Acute renal failure syndrome; Translations: [Acute kidney failure, unspecified] Onset: Resolved: 01-24-2023 Episodic Acute bronchitis (20 sources) Acute bronchiolitis due to respiratory syncytial virus; Translations: [Acute bronchiolitis due to respiratory syncytial virus] Onset: Resolved: 5 05-03-2024 Episodic Cardiac dysrhythmias (1 source) Tachycardia, unspecified; Translations: [Tachycardia, unspecified] Onset: 5 Episodic Deficiency and other anemia (20 sources) Pancytopenia; Translations: [Other pancytopenia] Onset: 3 Resolved: 4 01-24-2023 Chronic Deficiency and other anemia (20 sources) Anemia; Translations: [Other specified anemias] Onset: 3 Resolved: 5 05-03-2024 Episodic Deficiency and other anemia (1 source) Nutritional anemia, unspecified; Translations: [Macrocytic anemia] Onset: 5 Episodic E Codes: Adverse effects of medical drugs (3 sources) Adverse effect of unspecified drugs, medicaments and biological substances, initial encounter; Translations: [Adverse effect of antineoplastic and immunosuppressive drugs, initial encounter] Onset: 4 Episodic Fever of unknown origin (1 source) Fever, unspecified; Translations: [Fever, unspecified] Onset: 5 Episodic Fluid and electrolyte disorders (20 sources) Dehydration; Translations: [Dehydration] Onset: 5 Resolved: 5 01-24-2023 Episodic Genitourinary symptoms and ill-defined conditions (2 sources) History of urinary tract infection; Translations: [Personal history of urinary (tract) infections] Onset: 5 05-26-2024 Episodic Hemorrhoids (20 sources) Internal hemorrhoids; Translations: [Other hemorrhoids] Onset: 8 Resolved: 1 08-15-2010 Episodic Immunizations and screening for infectious disease (20 sources) Patient encounter status; Translations: [Encounter for immunization] Onset: 5 Resolved: Episodic Nausea and vomiting (4 sources) Nausea; Translations: [Nausea] Onset: 5 05-25-2024 Episodic Other aftercare (20 sources) Device in situ; Translations: [Encounter for adjustment and management of vascular access device] Onset: 4 01-18-2024 Episodic Other aftercare (1 source) Encounter for follow-up examination after completed treatment for conditions other than malignant neoplasm; Translations: [Hospital discharge follow-up] Onset: 5 Episodic Other and unspecified benign neoplasm (20 sources) Benign neoplasm of colon; Translations: [Benign neoplasm of colon, unspecified] Onset: 8 Resolved: 1 08-15-2010 Episodic Other gastrointestinal disorders (20 sources) Dysphagia; Translations: [Dysphagia, unspecified] Onset: 3 11-05-2022 Episodic Other hereditary and degenerative nervous system conditions (20 sources) Sympathotonic orthostatic hypotension; Translations: [Multi-system degeneration of the autonomic nervous system] Onset: 4 Resolved: 4 12-22-2022 Chronic Other liver diseases (20 sources) Enzyme level - finding; Translations: [Transaminitis] Onset: 5 Resolved: 5 05-03-2024 Episodic Other lower respiratory disease (20 sources) Multiple nodules of lung; Translations: [Other nonspecific abnormal finding of lung field] Onset: 4 09-01-2023 Episodic Other lower respiratory disease (1 source) Hypoxemia; Translations: [Hypoxia] Onset: 4 Episodic Other lower respiratory disease (2 sources) Other nonspecific abnormal finding of lung field; Translations: [Lung nodules] Onset: 4 Episodic Other non-traumatic joint disorders (20 sources) Pain in unspecified knee; Translations: [Pain in joint, lower leg] Onset: 1 12-31-2010 Episodic Pneumonia (except that caused by tuberculosis or sexually transmitted disease) (20 sources) Pneumonia due to respiratory syncytial virus; Translations: [Respiratory syncytial virus pneumonia] Onset: 5 05-02-2024 Episodic Respiratory failure; insufficiency; arrest (adult) (20 sources) Acute respiratory failure; Translations: [Acute respiratory failure with hypoxia] Onset: 4 Resolved: 5 08-30-2023 Episodic Screening and history of mental health and substance abuse codes (20 sources) Ex-smoker; Translations: [Personal history of nicotine dependence] Onset: 3 07-22-2022 Episodic Results Test Name Value Interpretation Reference Range Facility [facility] 01-05-2025 [facility] Basic Metabolic Profile (BMP )on 01-01-2025 BUN/CRE 12.6 RATIO Normal 10-20 [facility] Comment on above: Performed By: #### L [id number] #### [facility] [address] [place], [address] Calcium [Mass/Vol] 9.3 mg/dL Normal 7.6-11.0 [facility] Comment on above: Performed By: #### L [id number] #### [facility] [address] [place], [address] Chloride [Moles/Vol] 102 mmol/L Normal 98-108 [facility] Comment on above: Performed By: #### L [id number] #### [facility] [address] [place], [address] CO2 [Moles/Vol] 27.8 mmol/L Normal 21.0-32.0 [facility] Comment on above: Performed By: #### L [id number] #### [facility] [address] [place], [address] Creatinine [Mass/Vol] 0.88 mg/dL Normal 0.70-1.20 [facility] Comment on above: Performed By: #### L [id number] #### [facility] [address] [place], [address] ECRCL 77.64 ml/min Normal 50-250 [facility] Comment on above: Performed By: #### L [id number] #### [facility] [address] [place], [address] GAP 9 Normal 5-15 [facility] Comment on above: Performed By: #### L [id number] #### [facility] [address] [place], [address] GFR/1.73 sq M.predicted among non-blacks MDRD (S/P/Bld) [Vol rate/Area] 67 mL/min/{1.73_m2} Normal >60 [facility] Comment on above: Result Comment: mL/m in/1.73m2 CKD-EPI Creatinine Equation (2020) Performed By: #### L [id number] #### [facility] [address] [place], [address] Glucose [Mass/Vol] 148 mg/dL High 70-99 [facility] Comment on above: Performed By: #### L [id number] #### [facility] [address] [place], [address] Potassium [Moles/Vol] 4.5 mmol/L Normal 3.3-5.1 [facility] Comment on above: Performed By: #### L [id number] #### [facility] [address] [place], [address] Sodium [Moles/Vol] 139 mmol/L Normal 133-145 [facility] Comment on above: Performed By: #### L [id number] #### [facility] [address] [place], [address] Urea nitrogen [Mass/Vol] 11 mg/dL Normal 4-19 [facility] Comment on above: Performed By: #### L [id number] #### [facility] [address] [place], [address] Bedside Glucoseon 01-01-2025 FINGERSTICK GLU 142 mg/dL High 74-106 [facility] Comment on above: Result Comment: LIN GEMENT OF PATIENT CARE PER NURSING PROTOCOL Performed By: #### L [id number] #### [facility] [address] [place], [address] FINGERSTICK GLU 150 mg/dL High 74-106 [facility] Comment on above: Result Comment: LIN GEMENT OF PATIENT CARE PER NURSING PROTOCOL Performed By: #### L [id number] #### [facility] [address] [place], [address] CBC W/Diff, Automatedon 11-0 3-5 Absolute Lymph 0.86 X10 3/uL Normal 0.83-4.51 [facility] Comment on above: Performed By: #### L [id number] #### [facility] [address] [place], [address] Absolute Neut 3.3 X10 3/uL Normal 2.0-7.7 [facility] Comment on above: Performed By: #### L [id number] #### [facility] [address] [place], [address] Basophils/100 WBC (Bld) 0.6 % Normal 0-1 [facility] Comment on above: Performed By: #### L [id number] #### [facility] [address] [place], [address] Eosinophils/100 WBC (Bld) 9.6 % High 0-5 [facility] Comment on above: Performed By: #### L [id number] #### [facility] [address] [place], [address] Erythrocyte distribution width (RBC) [Ratio] 14.9 % High 11.6-14.6 [facility] Comment on above: Performed By: #### L [id number] #### [facility] [address] [place], [address] Hematocrit (Bld) [Volume fraction] 32.3 % Low 37-47 [facility] Comment on above: Performed By: #### L [id number] #### [facility] [address] [place], [address] Hemoglobin (Bld) [Mass/Vol] 10.6 g/dL Low 12.0-15.0 [facility] Comment on above: Performed By: #### L [id number] #### [facility] [address] [place], [address] IG% 0.600 Normal 0.0-0.9 [facility] Comment on above: Result Comment: IG% - Immature Granulocytes (promyelocytes, myelocytes and metamyelocytes) > 1% indicates that a LEFT SHIFT is Present. Performed By: #### L [id number] #### [facility] [address] [place], [address] Lymphocytes/100 WBC (Bld) 16.2 % Low 19-41 [facility] Comment on above: Performed By: #### L [id number] #### [facility] [address] [place], [address] MCH (RBC) [Entitic mass] 30.2 pg Normal 27.0-32.0 [facility] Comment on above: Performed By: #### L [id number] #### [facility] [address] [place], [address] MCHC (RBC) [Mass/Vol] 32.8 g/dL Normal 32-36 [facility] Comment on above: Performed By: #### L [id number] #### [facility] [address] [place], [address] MCV (RBC) [Entitic vol] 92.0 fL Normal 81-99 [facility] Comment on above: Performed By: #### [id number] #### [facility] [address] [place], [address] Monocytes/100 WBC (Bld) 10.5 % High 0-10 [facility] Comment on above: Performed By: #### L [id number] #### [facility] [address] [place], [address] Neutrophils/100 WBC (Bld) 62.5 % Normal 47-70 [facility] Comment on above: Performed By: #### L [id number] #### [facility] [address] [place], [address] Nucleated RBC (Bld) [#/Vol] 0 10*3/uL Normal 0-5 [facility] Comment on above: Performed By: #### L [id number] #### [facility] [address] [place], [address] Platelet mean volume (Bld) [Entitic vol] 9.2 fL Normal 6.2-12.0 [facility] Comment on above: Performed By: #### L [id number] #### [facility] [address] [place], [address] Platelets (Bld) [#/Vol] 167 10*3/uL Normal 150-450 [facility] Comment on above: Performed By: #### L [id number] #### [facility] [address] [place], [address] RBC (Bld) [#/Vol] 3.51 10*6/uL Low 4.2-5.4 [facility] Comment on above: Performed By: #### L [id number] #### [facility] [address] [place], [address] RDW SD 50.1 fl High 35.1-43.9 [facility] Comment on above: Performed By: #### L [id number] #### [facility] [address] [place], [address] WBC (Bld) [#/Vol] 5.3 10*3/uL Normal 4.4-11.0 [facility] Comment on above: Performed By: #### L [id number] #### [facility] [address] [place], [address] COVID 19 AG RAPID (RN RIO T)on 01-01-2025 SARS-CoV-2 (COVID-19) RNA PEDRO LUIS+probe Ql (Unsp spec) SARS-CoV-2 (COVID 19) Negative RAPID METHOD BinaxNow COVID19 Ag Card Normal [facility] Comment on above: Performed By: #### L [id number] #### [facility] [address] [place], [address] Basic Metabolic Profile (BMP )on 12-31-2024 BUN/CRE 15.7 RATIO Normal 10-20 [facility] Comment on above: Performed By: #### L [id number] #### [facility] [address] [place], [address] Calcium [Mass/Vol] 9.4 mg/dL Normal 7.6-11.0 [facility] Comment on above: Performed By: #### L [id number] #### [facility] [address] [place], [address] Chloride [Moles/Vol] 104 mmol/L Normal 98-108 [facility] Comment on above: Performed By: #### L [id number] #### [facility] [address] [place], [address] CO2 [Moles/Vol] 26.5 mmol/L Normal 21.0-32.0 [facility] Comment on above: Performed By: #### L [id number] #### [facility] [address] [place], [address] Creatinine [Mass/Vol] 1.02 mg/dL Normal 0.70-1.20 [facility] Comment on above: Performed By: #### L [id number] #### [facility] [address] [place], [address] ECRCL 66.98 ml/min Normal 50-250 [facility] Comment on above: Performed By: #### L [id number] #### [facility] [address] [place], [address] GAP 8 Normal 5-15 [facility] Comment on above: Performed By: #### L [id number] #### [facility] [address] [place], [address] GFR/1.73 sq M.predicted among non-blacks MDRD (S/P/Bld) [Vol rate/Area] 56 mL/min/{1.73_m2} Low >60 [facility] Comment on above: Result Comment: mL/m in/1.73m2 CKD-EPI Creatinine Equation (2020) Performed By: #### L [id number] #### [facility] [address] [place], [address] Glucose [Mass/Vol] 138 mg/dL High 70-99 [facility] Comment on above: Performed By: #### L [id number] #### [facility] [address] [place], [address] Potassium [Moles/Vol] 5.2 mmol/L High 3.3-5.1 [facility] Comment on above: Performed By: #### L [id number] #### [facility] [address] [place], [address] Sodium [Moles/Vol] 139 mmol/L Normal 133-145 [facility] Comment on above: Performed By: #### L [id number] #### [facility] [address] [place], [address] Urea nitrogen [Mass/Vol] 16 mg/dL Normal 4-19 [facility] Comment on above: Performed By: #### L [id number] #### [facility] [address] [place], [address] Bedside Glucoseon 12-31-2024 FINGERSTICK GLU 180 mg/dL High 74-106 [facility] Comment on above: Result Comment: LIN HUNTER OF PATIENT CARE PER NURSING PROTOCOL Performed By: #### L [id number] #### [facility] [address] [place], [address] FINGERSTICK GLU 187 mg/dL High 74-106 [facility] Comment on above: Result Comment: LIN GEMENT OF PATIENT CARE PER NURSING PROTOCOL Performed By: #### L [id number], L501.2300, L100.0100 #### [facility] [address] [place], [address] FINGERSTICK GLU 103 mg/dL Normal 74-106 [facility] Comment on above: Result Comment: LIN GEMENT OF PATIENT CARE PER NURSING PROTOCOL Performed By: #### L [id number] #### [facility] [address] [place], [address] Basic Metabolic Profile (BMP )on 12-30-2024 BUN/CRE 20.3 RATIO High 10-20 [facility] Comment on above: Performed By: #### L [id number] #### [facility] [address] [place], [address] Calcium [Mass/Vol] 9.5 mg/dL Normal 7.6-11.0 [facility] Comment on above: Performed By: #### L [id number] #### [facility] [address] [place], [address] Chloride [Moles/Vol] 103 mmol/L Normal 98-108 [facility] Comment on above: Performed By: #### L 501.080 #### [facility] [address] [place], [address] CO2 [Moles/Vol] 25.8 mmol/L Normal 21.0-32.0 [facility] Comment on above: Performed By: #### L 501.080 #### [facility] [address] [place], [address] Creatinine [Mass/Vol] 1.13 mg/dL Normal 0.70-1.20 [facility] Comment on above: Performed By: #### L 501.080 #### [facility] [address] [place], [address] ECRCL 60.46 ml/min Normal 50-250 [facility] Comment on above: Performed By: #### L 501.080 #### [facility] [address] [place], [address] GAP 8 Normal 5-15 [facility] Comment on above: Performed By: #### L 501.080 #### [facility] [address] [place], [address] GFR/1.73 sq M.predicted among non-blacks MDRD (S/P/Bld) [Vol rate/Area] 49 mL/min/{1.73_m2} Low >60 [facility] Comment on above: Result Comment: mL/m in/1.73m2 CKD-EPI Creatinine Equation (2020) Performed By: #### L 501.080 #### [facility] [address] [place], [address] Glucose [Mass/Vol] 108 mg/dL High 70-99 [facility] Comment on above: Performed By: #### L 501.080 #### [facility] [address] [place], [address] Potassium [Moles/Vol] 5.2 mmol/L High 3.3-5.1 [facility] Comment on above: Performed By: #### L 501.080 #### [facility] [address] [place], [address] Sodium [Moles/Vol] 137 mmol/L Normal 133-145 [facility] Comment on above: Performed By: #### L 501.080 #### [facility] [address] [place], [address] Urea nitrogen [Mass/Vol] 23 mg/dL High 4-19 [facility] Comment on above: Performed By: #### L 501.080 #### [facility] [address] [place], [address] Bedside Glucoseon 12-30-2024 FINGERSTICK GLU 172 mg/dL High [facility]106 [facility] Comment on above: Result Comment: LIN GEMENT OF PATIENT CARE PER NURSING PROTOCOL Performed By: #### L 501.080 #### [facility] [address] [place], [address] FINGERSTICK GLU 175 mg/dL High [facility]106 [facility] Comment on above: Result Comment: LIN GEMENT OF PATIENT CARE PER NURSING PROTOCOL Performed By: #### L 501.080 #### [facility] [address] [place], [address] FINGERSTICK GLU 217 mg/dL High [facility]106 [facility] Comment on above: Result Comment: LIN GEMENT OF PATIENT CARE PER NURSING PROTOCOL Performed By: #### L 501.080 #### [facility] [address] [place], [address] FINGERSTICK GLU 189 mg/dL High [facility]106 [facility] Comment on above: Result Comment: LIN GEMENT OF PATIENT CARE PER NURSING PROTOCOL Performed By: #### L 501.080 #### [facility] [address] [place], [address] FINGERSTICK GLU 221 mg/dL High [address] [place] [address] Comment on above: Result Comment: LIN GEMENT OF PATIENT CARE PER NURSING PROTOCOL Performed By: #### L 501.080 #### [facility] [address] [place], [address] CBC W/Diff, Automatedon Absolute Lymph 0.90 X10 3/uL Normal 0.83-4.51 [facility] Comment on above: Performed By: #### L 501.080 #### [facility] [address] [place], [address] Absolute Neut 3.8 X10 3/uL Normal 2.0-7.7 [facility] Comment on above: Performed By: #### L 501.080 #### [facility] [address] [place], [address] Basophils/100 WBC (Bld) 0.3 % Normal 0-1 [facility] Comment on above: Performed By: #### L 501.080 #### [facility] [address] [place], [address] Eosinophils/100 WBC (Bld) 7.4 % High 0-5 [facility] Comment on above: Performed By: #### L 501.080 #### [facility] [address] [place], [address] Erythrocyte distribution width (RBC) [Ratio] 14.9 % High 11.6-14.6 [facility] Comment on above: Performed By: #### L 501.080 #### [facility] [address] [place], [address] Hematocrit (Bld) [Volume fraction] 31.8 % Low 37-47 [facility] Comment on above: Performed By: #### L 501.080 #### [facility] [address] [place], [address] Hemoglobin (Bld) [Mass/Vol] 10.2 g/dL Low 12.0-15.0 [facility] Comment on above: Performed By: #### L 501.080 #### [facility] [address] [place], [address] IG% 0.500 Normal 0.0-0.9 [facility] Comment on above: Result Comment: IG% - Immature Granulocytes (promyelocytes, myelocytes and metamyelocytes) > 1% indicates that a LEFT SHIFT is Present. Performed By: #### L 501.080 #### [facility] [address] [place], [address] Lymphocytes/100 WBC (Bld) 15.2 % Low 19-41 [facility] Comment on above: Performed By: #### L 501.080 #### [facility] [address] [place], [address] MCH (RBC) [Entitic mass] 29.5 pg Normal 27.0-32.0 [facility] Comment on above: Performed By: #### L 501.080 #### [facility] [address] [place], [address] MCHC (RBC) [Mass/Vol] 32.1 g/dL Normal 32-36 [facility] Comment on above: Performed By: #### L 501.080 #### [facility] [address] [place], [address] MCV (RBC) [Entitic vol] 91.9 fL Normal 81-99 [facility] Comment on above: Performed By: #### L 501.080 #### [facility] [address] [place], [address] Monocytes/100 WBC (Bld) 12.2 % High 0-10 [facility] Comment on above: Performed By: #### L 501.080 #### [facility] [address] [place], [address] Neutrophils/100 WBC (Bld) 64.4 % Normal 47-70 [facility] Comment on above: Performed By: #### L 501.080 #### [facility] [address] [place], [address] Nucleated RBC (Bld) [#/Vol] 0 10*3/uL Normal 0-5 [facility] Comment on above: Performed By: #### L 501.080 #### [facility] [address] [place], [address] Platelet mean volume (Bld) [Entitic vol] 9.5 fL Normal 6.2-12.0 [facility] Comment on above: Performed By: #### L 501.080 #### [facility] [address] [place], [address] Platelets (Bld) [#/Vol] 185 10*3/uL Normal 150-450 [facility] Comment on above: Performed By: #### L 501.080 #### [facility] [address] [place], [address] RBC (Bld) [#/Vol] 3.46 10*6/uL Low 4.2-5.4 [facility] Comment on above: Performed By: #### L 501.080 #### [facility] [address] [place], [address] RDW SD 50.6 fl High 35.1-43.9 [facility] Comment on above: Performed By: #### L 501.080 #### [facility] [address] [place], [address] WBC (Bld) [#/Vol] 5.9 10*3/uL Normal 4.4-11.0 [facility] Comment on above: Performed By: #### L 501.080 #### [facility] [address] [place], [address] Bedside Glucoseon 12-29-2024 FINGERSTICK GLU 187 mg/dL High 74-106 [facility] Comment on above: Result Comment: LIN HUNTER OF PATIENT CARE PER NURSING PROTOCOL Performed By: #### L 500.4050, L501.2300, L100.0100 #### [facility] [address] [place], [address] FINGERSTICK GLU 140 mg/dL High 74-106 [facility] Comment on above: Result Comment: LIN GEMENT OF PATIENT CARE PER NURSING PROTOCOL Performed By: #### L 501.080 #### [facility] [address] [place], [address] FINGERSTICK GLU 155 mg/dL High 74-106 [facility] Comment on above: Result Comment: LIN GEMENT OF PATIENT CARE PER NURSING PROTOCOL Performed By: #### L 501.080 #### [facility] [address] [place], [address] FINGERSTICK GLU 147 mg/dL High 74-106 [facility] Comment on above: Result Comment: LIN GEMENT OF PATIENT CARE PER NURSING PROTOCOL Performed By: #### L 501.080 #### [facility] [address] [place], [address] Basic Metabolic Profile (BMP )on 12-28-2024 BUN/CRE 19.2 RATIO Normal - [facility] Comment on above: Performed By: #### L 500.4050, L501.2300, L100.0100 #### [facility] [address] [place], [address] Calcium [Mass/Vol] 8.9 mg/dL Normal 7.6-11.0 [facility] Comment on above: Performed By: #### L 500.4050, L501.2300, L100.0100 #### [facility] [address] [place], [address] Chloride [Moles/Vol] 99 mmol/L Normal 98-108 [facility] Comment on above: Performed By: #### L 500.4050, L501.2300, L100.0100 #### [facility] [address] [place], [address] CO2 [Moles/Vol] 25.1 mmol/L Normal 21.0-32.0 [facility] Comment on above: Performed By: #### L 500.4050, L501.2300, L100.0100 #### [facility] [address] [place], [address] Creatinine [Mass/Vol] 1.47 mg/dL High 0.70-1.20 [facility] Comment on above: Performed By: #### L 500.4050, L501.2300, L100.0100 #### [facility] [address] [place], [address] ECRCL 46.48 ml/min Low 50-250 [facility] Comment on above: Performed By: #### L 500.4050, L501.2300, L100.0100 #### [facility] [address] [place], [address] GAP 9 Normal 5-15 [facility] Comment on above: Performed By: #### L 500.4050, L501.2300, L100.0100 #### [facility] [address] [place], [address] GFR/1.73 sq M.predicted among non-blacks MDRD (S/P/Bld) [Vol rate/Area] 36 mL/min/{1.73_m2} Low >60 [facility] Comment on above: Result Comment: mL/m in/1.73m2 CKD-EPI Creatinine Equation (2020) Performed By: #### L 500.4050, L501.2300, L100.0100 #### [facility] [address] [place], [address] Glucose [Mass/Vol] 93 mg/dL Normal 70-99 [facility] Comment on above: Performed By: #### L 500.4050, L501.2300, L100.0100 #### [facility] [address] [place], [address] Potassium [Moles/Vol] 5.1 mmol/L Normal 3.3-5.1 [facility] Comment on above: Performed By: #### L 500.4050, L501.2300, L100.0100 #### [facility] [address] [place], [address] Sodium [Moles/Vol] 132 mmol/L Low 133-145 [facility] Comment on above: Performed By: #### L 500.4050, L501.2300, L100.0100 #### [facility] [address] [place], [address] Urea nitrogen [Mass/Vol] 28 mg/dL High 4-19 [facility] Comment on above: Performed By: #### L 500.4050, L501.2300, L100.0100 #### [facility] [address] [place], [address] Bedside Glucoseon 12-28-2024 FINGERSTICK GLU 185 mg/dL High 74-106 [facility] Comment on above: Result Comment: LIN GEMENT OF PATIENT CARE PER NURSING PROTOCOL Performed By: #### L 501.080 #### [facility] [address] [place], [address] FINGERSTICK GLU 87 mg/dL Normal 74-106 [facility] Comment on above: Result Comment: LIN GEMENT OF PATIENT CARE PER NURSING PROTOCOL Performed By: #### L 501.080 #### [facility] [address] [place], [address] FINGERSTICK GLU 110 mg/dL High 74-106 [facility] Comment on above: Result Comment: LIN GEMENT OF PATIENT CARE PER NURSING PROTOCOL Performed By: #### L 501.080 #### [facility] [address] [place], [address] FINGERSTICK GLU 103 mg/dL Normal 74-106 [facility] Comment on above: Result Comment: LIN GEMENT OF PATIENT CARE PER NURSING PROTOCOL Performed By: #### L 500.4050, L501.2300, L100.0100 #### [facility] [address] [place], [address] FINGERSTICK GLU 82 mg/dL Normal 74-106 [facility] Comment on above: Result Comment: LIN GEMENT OF PATIENT CARE PER NURSING PROTOCOL Performed By: #### L 501.080 #### [facility] [address] [place], [address] FINGERSTICK GLU 67 mg/dL Low 74-106 [facility] Comment on above: Result Comment: LIN GEMENT OF PATIENT CARE PER NURSING PROTOCOL Performed By: #### L 501.080 #### [facility] [address] [place], [address] FINGERSTICK GLU 70 mg/dL Low 74-106 [facility] Comment on above: Result Comment: LIN GEMENT OF PATIENT CARE PER NURSING PROTOCOL Performed By: #### L 501.5600 #### [facility] [address] [place], [address] CBC-Complete Blood Cnt No [facility] 12-28-2024 Erythrocyte distribution width (RBC) [Ratio] 15.2 % High 11.6-14.6 [facility] Comment on above: Performed By: #### L 501.080 #### [facility] [address] [place], [address] Hematocrit (Bld) [Volume fraction] 27.5 % Low 37-47 [facility] Comment on above: Performed By: #### L 501.080 #### [facility] [address] [place], [address] Hemoglobin (Bld) [Mass/Vol] 9.3 g/dL Low 12.0-15.0 [facility] Comment on above: Performed By: #### L 501.080 #### [facility] [address] [place], [address] MCH (RBC) [Entitic mass] 30.7 pg Normal 27.0-32.0 [facility] Comment on above: Performed By: #### L 501.080 #### [facility] [address] [place], [address] MCHC (RBC) [Mass/Vol] 33.8 g/dL Normal 32-36 [facility] Comment on above: Performed By: #### L 501.080 #### [facility] [address] [place], [address] MCV (RBC) [Entitic vol] 90.8 fL Normal 81-99 [facility] Comment on above: Performed By: #### L 501.080 #### [facility] [address] [place], [address] Platelet mean volume (Bld) [Entitic vol] 10.1 fL Normal 6.2-12.0 [facility] Comment on above: Performed By: #### L 501.080 #### [facility] [address] [place], [address] Platelets (Bld) [#/Vol] 160 10*3/uL Normal 150-450 [facility] Comment on above: Performed By: #### L 501.080 #### [facility] [address] [place], [address] RBC (Bld) [#/Vol] 3.03 10*6/uL Low 4.2-5.4 [facility] Comment on above: Performed By: #### L 501.080 #### [facility] [address] [place], [address] RDW SD 50.7 fl High 35.1-43.9 [facility] Comment on above: Performed By: #### L 501.080 #### [facility] [address] [place], [address] WBC (Bld) [#/Vol] 6.8 10*3/uL Normal 4.4-11.0 [facility] Comment on above: Performed By: #### L 501.080 #### [facility] [address] [place], [address] Discharge Instructionon 12-01 Discharge Instruction [facility] Medical Records Department [address] [place] [address] Instructions for Home/Discharge Instructions 12/28/24 1048 MR#: [id number] Acct: [id number] Name: PRICILA HOOKER Rep #: [id number] : 1945 79 From: Eddie Vera MD PCP: Dr. Vinh Van MD Status:ADM DIONE Discharge Instructions DC O2, CPAP, BIPAP needs Home O2 Discharge instructions: No Dressing / Incision Discharge Activity: Return to Normal Activity Dressing / Incision Call your doctor if you observe: Fever of 101 or Higher, Shortness of breath, Dizziness, Fainting spells, Swelling in the ankles, Chest pain and Increased palpitations (irregular heartbeat) Follow Up Care Test Results: Test results from this visit will be discussed in further detail at your follow-up appointment, if applicable. Discharge Plan Admission Admit Date/Time: 12/27/24 14:44 Attending Provider: Eddie Vera Primary Care Provider: Vinh Van Consulting Providers: Ramy Anglin; Taniya Castaneda Instructions Patient Instructions: ED Hypoglycemia Oral Diabetic Med Discharge Orders/Prescriptions Prescriptions: Continued amitriptyline 50 mg tablet 50 mg PO QHS gabapentin 100 mg capsule 100 mg PO BID Patient Comments: PT STATES ONLY TAKES ONE CAPSULE TWICE A DAY ( OF 04/27/24) atorvastatin 40 mg tablet 40 mg PO QHS Slow-Mag 71.5 mg tablet,delayed release (DR/EC) 71.5 mg PO BID ondansetron HCl 8 mg tablet 8 mg PO Q12H PRN (Reason: NAUSEA ) silver sulfadiazine 1 % cream 1 applic topical DAILY PRN (Reason: BURN) Rx Instructions: APPLY ONE APPLICATION ONCE DAILY NEEDED TO HAND acetaminophen [Acetaminophen Extra Strength] 500 mg tablet 500 mg PO Q6H PRN (Reason: PAIN ) aspirin [Adult Low Dose Aspirin] 81 mg tablet,delayed release (DR/EC) 81 mg PO DAILY carvedilol 3.125 mg tablet 6.25 mg PO BID valsartan 80 mg tablet 160 mg PO QHS morphine 15 mg tablet extended release 15 mg PO Q12.TCU fluticasone furoate-vilanterol 100-25 mcg/dose blister with device 1 inh INHALATION Q24H Patient Comments: [NO ORIGINAL SIG] Changed metformin 500 MG tablet 500 mg PO BID 30 Days Qty: 60 0RF Held torsemide 20 mg tablet 20 mg PO DAILY Hold Instructions: Resume on 12/30/24. Discontinued glimepiride 4 mg tablet 4 mg PO BID valsartan 40 mg tablet 80 mg PO QHS Referrals / Follow Up: Vinh Van MD [Primary Care Provider, [facility]] - Within 1 Week Disposition Disposition (needs filled in before D/C Order can be placed): Home, Self Care 12/28/24 1053 Eddie Vera MD CC: [employer]-C Taniya Castaneda; Dr. Ramy Anglin DO; Dr. Vinh Van MD Signed [facility] MR/CON.[facility] 12-28-2024 MR/CON.[facility] Medical Records Department [address] [place] [address] Consultation - Palliative Care 12/28/24 0810 MR#: [id number] Acct: [id number] Name: PRICILA HOOKER Rep #: [id number] : 1945 79 From: Taniya Castellano PCP: Dr. Vinh Van MD Status:ADM DIONE Location: [address] Medical History Hypomagnesemia Former smoker Endometrial cancer, FIGO stage IIIC Pancytopenia History of cancer of uterus Obesity Dyslipidemia Coronary artery disease Nonischemic cardiomyopathy CKD (chronic kidney disease) stage 3, GFR 30-59 ml/min Endometrial cancer GERD (gastroesophageal reflux disease) Benign neoplasm of colon Cholecystitis Hypercholesteremia Neuropathy Diabetes Hypertension Chest pain Home Medications ???Medication ???Instructions ???Recorded ???Last Taken ???Type amitriptyline 50 mg tablet 50 mg PO QHS DEPRESSION 12/23/22 0 03/09/23 History atorvastatin 40 mg tablet 40 mg PO QHS CHOLESTEROL 12/23/22 03/09/23 History gabapentin 100 mg capsule 100 mg PO BID NERVE PAIN 12/23/22 03/10/23 History magnesium chloride 71.5 mg 71.5 mg PO BID SUPPLEMENT 12/29/22 03/10/23 History (magnesium chloride) tablet,delayed release (Slow-Mag) ondansetron HCl 8 mg tablet 8 mg PO Q12H PRN NAUSEA 12/29/22 U nknown History aspirin 81 mg tablet,delayed 81 mg PO DAILY HEART HEALTH 03/10/23 History release (Adult Low Dose Aspirin) acetaminophen 500 mg tablet 500 mg PO Q6H PRN PAIN 03/10/23 Un known History (Acetaminophen Extra Strength) silver sulfadiazine 1 % topical 1 applic topical DAILY PRN BURN 03/10/23 History cream carvedilol 3.125 mg tablet 6.25 mg PO BID 12/17/23 Unknown Hi story fluticasone furoate 100 1 inh inhalation Q24H 04/27/24 Unk nown History mcg-vilanterol 25 mcg/dose inhalation powder morphine 15 mg tablet,extended 15 mg PO Q12.TCU 12/27/24 Unknown History release torsemide 20 mg tablet 20 mg PO DAILY 12/27/24 Unknown Hi story Held on 12/28/24. Instructions: Resume on 12/30/24. valsartan 80 mg tablet 160 mg PO QHS 12/27/24 Unknown His tory metformin 500 mg tablet 500 mg PO BID DIABETES 30 days Unknown Rx #60 tabs Allergy/AdvReac Type Severity Reaction Status Date / Time No Known Allergies Allergy Verified 04/27/24 16:18 Family History Father Myocardial infarction Mother Heart disease irregular heart rate Colon cancer Surgical History History of cholecystectomy Hx of hysterectomy, total Hx laparoscopic cholecystectomy Hx of cataract surgery History of total left knee replacement (TKR) ( 01/2011) History of total right knee replacement (TKR) ( 05/11/11) Social History household members: none Smoking Status: Former smoker how long ago did patient quit smokin alcohol intake: never substance use type: does not use ROS Constitutional Constitutional: Reports fatigue and weakness Eyes Eyes: Reports systems reviewed and no addt'l complaints, except as documented ENT HEENT: Reports systems reviewed and no addt'l complaints, except as documented Cardiovascular Cardiovascular: Reports weakness in extremities Respiratory/Chest Respiratory/Chest: Reports dyspnea on exertion and portable oxygen @ home Gastrointestinal Gastrointestinal: Reports abdominal pain, bloating and cramping Genitourinary Genitourinary: Reports systems reviewed and no addt'l complaints, except as documented Musculoskeletal Musculoskeletal: Reports systems reviewed and no addt'l complaints, except as documented Integumentary Integumentary: Reports systems reviewed and no addt'l complaints, except as documented Neurologic Neurologic: Reports systems reviewed and no addt'l complaints, except as documented Psychiatric Psychiatric: Reports systems reviewed and no addt'l complaints, except as documented Endocrine Endocrinology: Reports systems reviewed and no addt'l complaints, except as documented Hematologic/Lymphatic Hematologic/Lymphatic: Reports systems reviewed and no addt'l complaints, except as documented Allergic/Immunologic Allergic/Immunologic: Reports systems reviewed and no addt'l complaints, except as documented Charges/Coding Palliative Care Palliative Care: [id number] New Pt Consult 80+ min HPI Current admission Current Code Status: FULL CODE Associated Diagnosis: HYPOGLYCEMIA/AMS Consult Data Date of Consult: 12/28/24 Location of consult: PCU Reason for referral: goals of care Referral source: [facility] (more content not included)... Normal [facility] Prothrombin Time w/INRon INR Coag (PPP) [Relative time] 1.1 {INR} Normal [facility] Comment on above: Performed By: #### L 501.080 #### [facility] [address] [place], [place], [id number] PT Coag (PPP) [Time] 14.5 s Normal 11.7-14.9 [facility] Comment on above: Performed By: #### L 501.080 #### [facility] [address] [place], [id number] 12 Lead EKGon 12-27-2024 12 Lead EKG [facility] [address] [place] [address] 12 Lead EKG 12/27/24 1022 MR#: [id number] Acct: [id number] Name: PRICILA HOOKER Rep #: [id number] : 1945 79 From: Esteban Tatum MD Attending Dr: Dr. Eddie Vera MD Status : ADM DIONE Ordering Dr: Shay Nguyen MD Date: 12/27/24 Location: [facility] Sex: F C Admitted: 12/27/24 Test Reason : Blood Pressure : */* mmHG Vent. Rate : 77 BPM Atrial Rate : 77 BPM P-R Int : 184 ms QRS Dur : 100 ms QT Int : 380 ms P-R-T Axes : 37 -37 6 degrees QTcB Int : 430 ms Normal sinus rhythm Left axis deviation Low voltage QRS Abnormal ECG Confirmed by NATI RICE, ESTEBAN ([id number]), video editor HOOD BRUNNER ([id number]) on 12/29/2024 7:10:00 AM Referred By: BB Confirmed By: ESTEBAN TATUM MD 12/29/24 0710 Date Esteban Tatum MD CC: Dr. Shay Nguyen MD; Dr. Vinh Van MD; Dr. Eddie Vera MD Signed Normal [facility] Basic Metabolic Profile (BMP )on 12-27-2024 BUN/CRE 20.0 RATIO Normal 12-18 [facility] Comment on above: Performed By: #### L 500.4050, L501.2300, L100.0100 #### [facility] [address] [place], [address] Calcium [Mass/Vol] 9.1 mg/dL Normal 7.6-11.0 [facility] Comment on above: Performed By: #### L 500.4050, L501.2300, L100.0100 #### [facility] [address] [place], [address] Chloride [Moles/Vol] 99 mmol/L Normal 98-108 [facility] Comment on above: Performed By: #### L 500.4050, L501.2300, L100.0100 #### [facility] [address] [place], [address] CO2 [Moles/Vol] 25.1 mmol/L Normal 21.0-32.0 [facility] Comment on above: Performed By: #### L 500.4050, L501.2300, L100.0100 #### [facility] [address] [place], [address] Creatinine [Mass/Vol] 1.44 mg/dL High 0.70-1.20 [facility] Comment on above: Performed By: #### L 500.4050, L501.2300, L100.0100 #### [facility] [address] [place], [address] ECRCL 47.93 ml/min Low 50-250 [facility] Comment on above: Performed By: #### L 500.4050, L501.2300, L100.0100 #### [facility] [address] [place], [address] GAP 9 Normal 5-15 [facility] Comment on above: Performed By: #### L 500.4050, L501.2300, L100.0100 #### [facility] [address] [place], [address] GFR/1.73 sq M.predicted among non-blacks MDRD (S/P/Bld) [Vol rate/Area] 37 mL/min/{1.73_m2} Low >60 [facility] Comment on above: Result Comment: mL/m in/1.73m2 CKD-EPI Creatinine Equation (2020) Performed By: #### L 500.4050, L501.2300, L100.0100 #### [facility] [address] [place], [address] Glucose [Mass/Vol] 95 mg/dL Normal 70-99 [facility] Comment on above: Performed By: #### L 500.4050, L501.2300, L100.0100 #### [facility] [address] [place], [address] Potassium [Moles/Vol] 5.4 mmol/L High 3.3-5.1 [facility] Comment on above: Performed By: #### L 500.4050, L501.2300, L100.0100 #### [facility] [address] [place], [address] Sodium [Moles/Vol] 134 mmol/L Normal 133-145 [facility] Comment on above: Performed By: #### L 500.4050, L501.2300, L100.0100 #### [facility] [address] [place], [address] Urea nitrogen [Mass/Vol] 29 mg/dL High 4-19 [facility] Comment on above: Performed By: #### L 500.4050, L501.2300, L100.0100 #### [facility] [address] [place], [address] Bedside Glucoseon 12-27-2024 FINGERSTICK GLU 119 mg/dL High 74-106 [facility] Comment on above: Result Comment: LIN HUNTER OF PATIENT CARE PER NURSING PROTOCOL Performed By: #### L 501.080 #### [facility] [address] [place], [address] FINGERSTICK GLU 100 mg/dL Normal 74-106 [facility] Comment on above: Result Comment: LIN GEMENT OF PATIENT CARE PER NURSING PROTOCOL Performed By: #### L 501.080 #### [facility] [address] [place], [address] FINGERSTICK GLU 100 mg/dL Normal 74-106 [facility] Comment on above: Result Comment: LIN GEMENT OF PATIENT CARE PER NURSING PROTOCOL Performed By: #### L 500.4050, L501.2300, L100.0100 #### [facility] [address] [place], [address] FINGERSTICK GLU 46 mg/dL Low 74-106 [facility] Comment on above: Result Comment: LIN GEMENT OF PATIENT CARE PER NURSING PROTOCOL Performed By: #### L 500.4050, L501.2300, L100.0100 #### [facility] [address] [place], [address] FINGERSTICK GLU 98 mg/dL Normal 74-106 [facility] Comment on above: Result Comment: LIN GEMENT OF PATIENT CARE PER NURSING PROTOCOL Performed By: #### L 501.080 #### [facility] [address] [place], [address] CBC W/Diff, Automatedon 10-2 Absolute Lymph 0.76 X10 3/uL Low 0.83-4.51 [facility] Comment on above: Performed By: #### L 500.4050, L501.2300, L100.0100 #### [facility] [address] [place], [address] Absolute Neut 6.8 X10 3/uL Normal 2.0-7.7 [facility] Comment on above: Performed By: #### L 500.4050, L501.2300, L100.0100 #### [facility] [address] [place], [address] Basophils/100 WBC (Bld) 0.2 % Normal 0-1 [facility] Comment on above: Performed By: #### L 500.4050, L501.2300, L100.0100 #### [facility] [address] [place], [address] Eosinophils/100 WBC (Bld) 4.1 % Normal 0-5 [facility] Comment on above: Performed By: #### L 500.4050, L501.2300, L100.0100 #### [facility] [address] [place], [address] Erythrocyte distribution width (RBC) [Ratio] 15.2 % High 11.6-14.6 [facility] Comment on above: Performed By: #### L 500.4050, L501.2300, L100.0100 #### [facility] [address] [place], [address] Hematocrit (Bld) [Volume fraction] 33.8 % Low 37-47 [facility] Comment on above: Performed By: #### L 500.4050, L501.2300, L100.0100 #### [facility] [address] [place], [address] Hemoglobin (Bld) [Mass/Vol] 10.8 g/dL Low 12.0-15.0 [facility] Comment on above: Performed By: #### L 500.4050, L501.2300, L100.0100 #### [facility] [address] [place], [address] IG% 0.500 Normal 0.0-0.9 [facility] Comment on above: Result Comment: IG% - Immature Granulocytes (promyelocytes, myelocytes and metamyelocytes) > 1% indicates that a LEFT SHIFT is Present. Performed By: #### L 500.4050, L501.2300, L100.0100 #### [facility] [address] [place], [address] Lymphocytes/100 WBC (Bld) 8.6 % Low 19-41 [facility] Comment on above: Performed By: #### L 500.4050, L501.2300, L100.0100 #### [facility] [address] [place], [address] MCH (RBC) [Entitic mass] 29.9 pg Normal 27.0-32.0 [facility] Comment on above: Performed By: #### L 500.4050, L501.2300, L100.0100 #### [facility] [address] [place], [address] MCHC (RBC) [Mass/Vol] 32.0 g/dL Normal 32-36 [facility] Comment on above: Performed By: #### L 500.4050, L501.2300, L100.0100 #### [facility] [address] [place], [address] MCV (RBC) [Entitic vol] 93.6 fL Normal 81-99 [facility] Comment on above: Performed By: #### L 500.4050, L501.2300, L100.0100 #### [facility] [address] [place], [address] Monocytes/100 WBC (Bld) 10.3 % High 0-10 [facility] Comment on above: Performed By: #### L 500.4050, L501.2300, L100.0100 #### [facility] [address] [place], [address] Neutrophils/100 WBC (Bld) 76.3 % High 47-70 [facility] Comment on above: Performed By: #### L 500.4050, L501.2300, L100.0100 #### [facility] [address] [place], [address] Nucleated RBC (Bld) [#/Vol] 0 10*3/uL Normal 0-5 [facility] Comment on above: Performed By: #### L 500.4050, L501.2300, L100.0100 #### [facility] [address] [place], [address] Platelet mean volume (Bld) [Entitic vol] 9.4 fL Normal 6.2-12.0 [facility] Comment on above: Performed By: #### L 500.4050, L501.2300, L100.0100 #### [facility] [address] [place], [address] Platelets (Bld) [#/Vol] 159 10*3/uL Normal 150-450 [facility] Comment on above: Performed By: #### L 500.4050, L501.2300, L100.0100 #### [facility] [address] [place], [address] RBC (Bld) [#/Vol] 3.61 10*6/uL Low 4.2-5.4 [facility] Comment on above: Performed By: #### L 500.4050, L501.2300, L100.0100 #### [facility] [address] [place], [address] RDW SD 52.3 fl High 35.1-43.9 [facility] Comment on above: Performed By: #### L 500.4050, L501.2300, L100.0100 #### [facility] [address] [place], [address] WBC (Bld) [#/Vol] 8.9 10*3/uL Normal 4.4-11.0 [facility] Comment on above: Performed By: #### L 500.4050, L501.2300, L100.0100 #### [facility] [address] [place], [address] CNPNon 12-27-2024 CNPN Normal [facility] Chest 1 View (Portable)on Chest 1 View (Portable) [facility] Imaging Services [address] [place] [address] Chest 1 View (Portable) MR#: [id number] Acct: [id number] Name: PRICILA HOOKER Rep #: [id number] : 1945 F 79 From: David badillo MD PCP: Dr. Vinh Van MD Status: REG ER Study: Chest 1 View (Portable) Date of Exam: 12/27/24 Exam# [id number] Ordering Dr: Shay Nguyen MD PROCEDURE: CHEST 1 VIEW (PORTABLE) 12/27/2024 REASON FOR EXAM: WEAKNESS TECHNIQUE: Frontal view of the chest. COMPARISON: Prior study dated April 27, 2024. FINDINGS: Hardware: EKG electrodes are seen. A left-sided port a catheter is seen with the tip in the right atrium. Heart: Heart size is mildly enlarged. Calcification of the aortic arch. Lungs: Increased markings at the lung bases suggestive of atelectasis. I suspect a 1.8 cm nodule in the medial aspect of the right middle lobe. Stable elevation of the right hemidiaphragm. Stable blunting of the left costophrenic angle. Bones: Degenerative changes are identified within the thoracic spine. RAD/Chest 1 View (Portable) IMPRESSION: Increased markings at the lung bases suggestive of bibasilar atelectasis. Questionable 1.8 cm nodule in the medial aspect of the right middle lobe. Reading Location: [id number] CC: Dr. Shay Nguyen MD; Dr. Vinh Van MD Printer Floor Covering Assistant: Signed Normal [facility] Emergency Department Summary on 12-27-2024 Emergency Department Summary [facility] Medical Records Department [address] [place] [address] Emergency Department Summary 12/27/24 MR#: [id number] Acct: [id number] Name: PRICILA HOOKER Rep #: [id number] : 1945 79 From: Shay Nguyen MD PCP: Dr. Vinh Van MD Status:ADM DIONE Location: [place] [address] HPI History of Present Illness Chief Complaint: Hypoglycemia Informant: patient and EMS Narrative Narrative: Patient is a 79-year-old female with a history of DM and endometrial cancer, presenting to the ED via EMS for decreased level of consciousness. - Patient was found by family this morning, reportedly unresponsive. - Patient reports feeling very weak and lightheaded upon getting up. - EMS was called; initial blood glucose was in the 30s. - EMS report: Patient was hypoxic but breathing; initially bagged, then placed on a non-rebreather mask to improve oxygenation. - Patient is on 2 L of supplemental oxygen at home. - IV D10 was administered by EMS; blood glucose last checked by EMS was in the 180s. - Patient reportedly regained consciousness quickly after D10 administration. - Currently denies any complaints, stating she feels okay. - Denies recent illness, dysuria, dyspnea, cough, emesis, diarrhea, abdominal pain, or chest pain. - Has not taken medications or eaten this morning; medications include morphine. - Last took oral hypoglycemic medication last night. - Reports feeling at baseline yesterday with no symptoms of illness. - Chronic lower extremity edema, reportedly unchanged. [facility] Medical History Hypomagnesemia Former smoker Endometrial cancer, FIGO stage IIIC Pancytopenia History of cancer of uterus Obesity Dyslipidemia Coronary artery disease Nonischemic cardiomyopathy CKD (chronic kidney disease) stage 3, GFR 30-59 ml/min Endometrial cancer GERD (gastroesophageal reflux disease) Benign neoplasm of colon Cholecystitis Hypercholesteremia Neuropathy Diabetes Hypertension Chest pain Home Medications ???Medication ???Instructions ???Recorded ???Last Taken ???Type amitriptyline 50 mg tablet 50 mg PO QHS DEPRESSION 12/23/22 0 03/09/23 History atorvastatin 40 mg tablet 40 mg PO QHS CHOLESTEROL 12/23/22 03/09/23 History dulaglutide 3 mg/0.5 mL 3 mg subcut TU DIABETES 12/23/22 0 03/09/23 History subcutaneous pen injector (Trulicity) gabapentin 100 mg capsule 100 mg PO TID NERVE PAIN 12/23/22 03/10/23 History magnesium chloride 71.5 mg 71.5 mg PO BID SUPPLEMENT 12/29/22 03/10/23 History (magnesium chloride) tablet,delayed release (Slow-Mag) ondansetron HCl 8 mg tablet 8 mg PO Q12H PRN NAUSEA 12/29/22 U nknown History aspirin 81 mg tablet,delayed 81 mg PO DAILY HEART HEALTH 03/10/23 History release (Adult Low Dose Aspirin) acetaminophen 500 mg tablet 500 mg PO Q6H PRN PAIN 03/10/23 Un known History (Acetaminophen Extra Strength) glimepiride 4 mg tablet 4 mg PO BID DIABETES 03/10/2303/01 History silver sulfadiazine 1 % topical 1 applic topical DAILY PRN BURN 03/10/23 History cream carvedilol 3.125 mg tablet 6.25 mg PO BID 12/17/23 Unknown Hi story duloxetine 60 mg capsule,delayed 60 mg PO DAILY 04/27/24 Unknown Hi story release fluticasone furoate 100 1 inh inhalation Q24H 04/27/24 Unk nown History mcg-vilanterol 25 mcg/dose inhalation powder metformin 500 mg tablet 1,000 mg PO BID DIABETES 04/27/24 Unknown History cefdinir 300 mg capsule 300 mg PO BID #10 caps 04/30/24 Un known Rx Allergy/AdvReac Type Severity Reaction Status Date / Time No Known Allergies Allergy Verified 04/27/24 16:18 Family History Father Myocardial infarction Mother Heart disease irregular heart rate Colon cancer Surgical History History of cholecystectomy Hx of hysterectomy, total Hx laparoscopic cholecystectomy Hx of cataract surgery History of total left knee replacement (TKR) ( 01/2011) History of total right knee replacement (TKR) ( 05/11/11) Social History household members: none Smoking Status: Former smoker how long ago did patient quit smokin alcohol intake: never substance use type: does not use ROS ROS ED Constitutional Constitutional ED: Reports fatigue; Denies chills or fever(s) Eyes Eyes: Denies change in vision or diplopia ENT ENT ED: Denies rhinorrhea or sore throat Cardiovascular Cardiovascular: Reports leg edema; Denies chest pain or palpitations Respiratory/Chest Respiratory/Chest: Denies cough or dyspnea Gastrointestinal Gastrointestinal: Denies abdominal pain, diarrhea, nause (more content not included)... Normal [facility] H AND P Exam - Hospitaliston 12-27-2024 H&P Exam - Hospitalist [facility] Medical Records Department [address] [place] [address] H P Exam - Hospitalist 12/27/24 1404 MR#: [id number] Acct: [id number] Name: PRICILA HOOKER Rep #: [id number] : 1945 79 From: Ramy Anglin DO PCP: Dr. Vinh Van MD Status:ADM DIONE Location: [place] [address] HPI - General General Date of Admission: 12/27/24 Date of Service: 12/27/24 Chief Complaint: Altered mental status HPI Narrative PRICILA HOOKER, is a 79 F who presented to [facility] ED on 12/27/2024 with altered mental status. Patient lives at home with her sister. Medical history significant for stage III endometrial cancer, type 2 diabetes mellitus with neuropathy, chronic HFrEF, and mild chronic debility. Patient follows with Dr. Branham; reviewed last office note in [facility] from 12/06. She was diagnosed with stage III endometrial cancer back in 2022. She initially completed chemotherapy with carboplatin, paclitaxel and pembrolizumab. She received 5 cycles of pembrolizumab but it was then held due to worsening neuropathy and general decline. Dr. Branham noted that patient was having further general decline as well as worsening abdominal pain suspected secondary to cancer. He recently referred the patient to palliative care and patient and daughter notes that they have established with palliative care in the past few weeks. Dr. Branham also noted that he would obtain a repeat CT chest as there was recently concern for lung metastases, and if the CT chest was worse he would recommend getting hospice care involved. Unclear if the CT scans been done. Chest x-ray in the ED today showed increased markings of the lung bases suggestive of bibasilar atelectasis as well as a questionable 1.8 centimeter nodule in the medial aspect of the right middle lobe. Patient sister notes that over the past several days patient has been more weak and debilitated than normal. Notably patient did start taking extended release p.o. morphine twice daily and sister thought it may be secondary to the morphine. Does not check her sugars regularly baseline. This morning patient was more altered and had a small fall so they called EMS. She was found to have hypoglycemia with initial blood glucose in the 30s. Was given an IV D10 bolus by EMS with improvement in blood sugar to the 180s. They noted that patient regained consciousness quickly after the D10 administration. However, on arrival to the ED here her sugar had again dropped to the 40s and she was given another IV D10 bolus with improvement in her blood sugar. Labs were notable for mild hyperkalemia with potassium 5.5. No EKG changes were noted. Given worsening debility with multiple hypoglycemia episodes and mild hyperkalemia, hospitalist was contacted for admission. I saw the patient at bedside in the ED, sister was present. Patient was laying back in bed and making appropriate eye contact, and she answered a few questions for me. However, she largely deferred to her sister with answering questions. 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 Notes that she has seen some decline in functional status of the patient but the mentation change today was concerning to her. Patient has never had hypoglycemia like this before that she is aware of. They note that her medication regimen for diabetes has been stable for quite a while. No other acute concerns currently. Will be admitted for further management. [facility] Medical History Hypomagnesemia Former smoker Endometrial cancer, FIGO stage IIIC Pancytopenia History of cancer of uterus Obesity Dyslipidemia Coronary artery disease Nonischemic cardiomyopathy CKD (chronic kidney disease) stage 3, GFR 30-59 ml/min Endometrial cancer GERD (gastroesophageal reflux disease) Benign neoplasm of colon Cholecystitis Hypercholesteremia Neuropathy Diabetes Hypertension Chest pain Home Medications ???Medication ???Instructions ???Recorded ???Last Taken ???Type amitriptyline 50 mg tablet 50 mg PO QHS DEPRESSION 12/23/22 0 03/09/23 History atorvastatin 40 mg tablet 40 mg PO QHS CHOLESTEROL 12/23/22 03/09/23 History gabapentin 100 mg capsule 100 mg PO BID NERVE PAIN 12/23/22 03/10/23 History magnesium chloride 71.5 mg 71.5 mg PO BID SUPPLEMENT 12/29/22 03/10/23 History (magnesium chloride) tablet,delayed release (Slow-Mag) ondansetron HCl 8 mg tablet 8 mg PO Q12H PRN NAUSEA 12/29/22 U nknown History aspirin 81 mg tablet,delayed 81 mg PO DAILY HEART HEALTH 03/10/23 History release (Adult Low Dose Aspirin) acetaminophen 500 mg tablet 500 mg PO Q6H PRN PAIN 03/10/23 Un known History (Acetaminophen Extra Strength) glimepiride 4 mg tablet 4 mg PO BID DIABETES 03/10/2303/01 History (more content not included)... Normal [facility] Hemoglobin A1con 12-27-2024 HbA1c (Bld) [Mass fraction] 7.1 % High <=5.6 [facility] Comment on above: Order Comment: Comme nts: ok to add on Result Comment: Norm al < 5.7 % Prediabetic 5.7 - 6.4 % Diabetic >or= 6.5 % Please note range changes. Performed By: #### L 501.080 #### [facility] [address] [place], [place], [id number] L501.4021on 12-27-2024 Trop T High Sen 36 ng/L High <=14 [facility] Comment on above: Performed By: #### L 400.0001 #### [facility] [address] [place], [place], [id number] Liver Profileon 12-27-2024 Albumin [Mass/Vol] 3.4 g/dL Normal 3.4-4.8 [facility] Comment on above: Order Comment: ok to add on Performed By: #### L 501.080 #### [facility] [address] [place], [address] ALK PHOS 70 U/L Normal 35-104 [facility] Comment on above: Order Comment: ok to add on Performed By: #### L 501.080 #### [facility] [address] [place], [address] ALT [Catalytic activity/Vol] 19 U/L Normal <=34 [facility] Comment on above: Order Comment: ok to add on Performed By: #### L 501.080 #### [facility] [address] [place], [address] AST [Catalytic activity/Vol] 37 U/L High <=31 [facility] Comment on above: Order Comment: ok to add on Result Comment: Hemo lysis present, Results??could be affected. ?? Performed By: #### L 501.080 #### [facility] [address] [place], [address] Bilirubin [Mass/Vol] 0.31 mg/dL Normal 0.00-1.30 [facility] Comment on above: Order Comment: ok to add on Performed By: #### L 501.080 #### [facility] [address] [place], [address] Bilirubin.direct [Mass/Vol] 0.11 mg/dL Normal 0.00-0.30 [facility] Comment on above: Order Comment: ok to add on Result Comment: Hemo lysis present, Results??could be affected. ?? Performed By: #### L 501.080 #### [facility] [address] [place], [address] Globulin (S) [Mass/Vol] 3.7 g/dL Normal 2.2-4.2 [facility] Comment on above: Order Comment: ok to add on Performed By: #### L 501.080 #### [facility] [address] [place], [address] T PROT 7.1 g/dL Normal 5.9-8.4 [facility] Comment on above: Order Comment: ok to add on Performed By: #### L 501.080 #### [facility] [address] [place], [address] Potassiumon 12-27-2024 Potassium [Moles/Vol] 5.5 mmol/L High 3.3-5.1 [facility] Comment on above: Performed By: #### L 501.5600 #### [facility] [address] [place], [address] Troponin T HS 2 HRon 025 Trop T High Sen 42 ng/L High <=14 [facility] Comment on above: Performed By: #### L 501.080 #### [facility] [address] [place], [address] Troponin T HS 4 HRon 025 Trop T High Sen 35 ng/L High <=14 [facility] Comment on above: Performed By: #### L 501.080 #### [facility] [address] [place], [address] Urinalysis, Completeon 12-27 AMORPHOUS 2+ Normal [facility] Comment on above: Order Comment: CLEAN CATCH Performed By: #### L 400.0001 #### [facility] [address] [place], [address] BACTERIA 2+ /hpf Normal None Seen [facility] Comment on above: Order Comment: CLEAN CATCH Performed By: #### L 400.0001 #### [facility] [address] [place], [address] EPI,SQUAMOUS 0-5 SEEN Normal 5-10 [facility] Comment on above: Order Comment: CLEAN CATCH Performed By: #### L 400.0001 #### [facility] [address] [place], [address] WBC 0-5 SEEN Normal 0-5 [facility] Comment on above: Order Comment: CLEAN CATCH Performed By: #### L 400.0001 #### [facility] [address] [place], [address] Mucus Ql (Urine sed) 0 SEEN Normal [facility] Comment on above: Order Comment: CLEAN CATCH Performed By: #### L 400.0001 #### [facility] [address] [place], [address] RBC 0 SEEN Normal 0-5 [facility] Comment on above: Order Comment: CLEAN CATCH Performed By: #### L 400.0001 #### [facility] [address] [place], [address] Venous Blood Gason 5 Blood Gas Type KEN [facility] Comment on above: Performed By: #### L 501.080 #### [facility] [address] [place], [address] CO2 [Moles/Vol] 25 mmol/L Normal 23-33 [facility] Comment on above: Performed By: #### L 501.080 #### [facility] [address] [place], [address] HCO3 (Bld) [Moles/Vol] 24 mmol/L Normal 22-26 [facility] Comment on above: Performed By: #### L 501.080 #### [facility] [address] [place], [address] O2 Delivery Dev Not entered [facility] Comment on above: Performed By: #### L 501.080 #### [facility] [address] [place], [address] SITE Not entered [facility] Comment on above: Performed By: #### L 501.080 #### [facility] [address] [place], [address] VBG BE -2 mmol/L Low -1.0-3.5 [facility] Comment on above: Performed By: #### L 501.080 #### [facility] [address] [place], [address] VBG pCO2 45.4 mmHg Normal 41-51 [facility] Comment on above: Performed By: #### L 501.080 #### [facility] [address] [place], [address] VBG pH 7.33 Normal 7.32-7.42 [facility] Comment on above: Performed By: #### L 501.080 #### [facility] [address] [place], [address] VBG PO2 40 mmHg Normal 25-40 [facility] Comment on above: Performed By: #### L 501.080 #### [facility] [address] [place], [address] VBG SO2 71 High 50-70 [facility] Comment on above: Performed By: #### L 501.080 #### [facility] [address] [place], [address] CT CHEST WO IVCONon 12-22-19 CT CHEST WO IVCON Normal [facility] CNPNon 12-07-2024 CNPN Normal [facility] CBC W Auto Differential pane l (Bld)on 12-06-2024 Basophils (Bld) [#/Vol] 0.05 10*3/uL Normal <0.11 [facility] Comment on above: Order Comment: Speci men Type: BLOOD SPECIMENOrdering Facility: [facility] Address: [address] [place] [address] Performed By: #### 5 7021-8 ####[facility] RENETOWANAMLIAmalia [id number] [place] [address] [place] Basophils/100 WBC (Bld) 0.6 % Normal [facility] Comment on above: Order Comment: Speci men Type: BLOOD SPECIMENOrdering Facility: [facility] Address: [address] [place] [address] Performed By: #### 5 7021-8 ####[facility] [id number] [place] [address] [place] Differential cell count method Nom (Bld) Auto Normal [facility] Comment on above: Order Comment: Speci men Type: BLOOD SPECIMENOrdering Facility: [facility] Address: [address] [place] [address] Performed By: #### 5 7021-8 ####[facility] [id number] [place] [address] [place] Eosinophils (Bld) [#/Vol] 0.15 10*3/uL Normal <0.46 [facility] Comment on above: Order Comment: Speci men Type: BLOOD SPECIMENOrdering Facility: [facility] Address: [address] [place] [address] Performed By: #### 5 7021-8 ####[facility] [id number] [place] [address] [place] Eosinophils/100 WBC (Bld) 1.8 % Normal [facility] Comment on above: Order Comment: Speci men Type: BLOOD SPECIMENOrdering Facility: [facility] Address: [address] [place] [address] Performed By: #### 5 7021-8 ####[facility] [id number] [place] [address] [place] Erythrocyte distribution width (RBC) [Ratio] 14.6 % Normal 11.5-15.0 [facility] Comment on above: Order Comment: Speci men Type: BLOOD SPECIMENOrdering Facility: [facility] Address: [address] [place] [address] Performed By: #### 5 7021-8 ####[facility] [place] [id number] [place] [address] [place] Hematocrit (Bld) [Volume fraction] 32.2 % Low 36.0-46.0 [facility] Comment on above: Order Comment: Speci men Type: BLOOD SPECIMENOrdering Facility: [facility] Address: [address] [place] [address] Performed By: #### 5 7021-8 ####[facility]NAMIRISAmalia [id number] [place] [address] [place] Hemoglobin (Bld) [Mass/Vol] 10.8 g/dL Low 11.5-15.5 [facility] Comment on above: Order Comment: Speci men Type: BLOOD SPECIMENOrdering Facility: [facility] Address: [address] [place] [address] Performed By: #### 5 7021-8 ####[facility]KAANAMAmal[facility] [id number] [place] [address] [place] Immature granulocytes (Bld) [#/Vol] 0.03 10*3/uL Normal <0.10 [facility] Comment on above: Order Comment: Speci men Type: BLOOD SPECIMENOrdering Facility: [facility] Address: [address] [place] [address] Performed By: #### 5 7021-8 ####[facility] [id number] [place] [address] [place] Immature granulocytes/100 WBC (Bld) 0.4 % Normal [facility] Comment on above: Order Comment: Speci men Type: BLOOD SPECIMENOrdering Facility: [facility] Address: [address] [place] [address] Performed By: #### 5 7021-8 ####[facility] SERVICESWNCLIA [id number] [place] [address] [place] Lymphocytes (Bld) [#/Vol] 1.15 10*3/uL Normal 1.00-4.00 [facility] Comment on above: Order Comment: Speci men Type: BLOOD SPECIMENOrdering Facility: [facility] Address: [address] [place] [address] Performed By: #### 5 7021-8 ####[facility] [id number] [place] [address] [place] Lymphocytes/100 WBC (Bld) 13.8 % Normal [facility] Comment on above: Order Comment: Speci men Type: BLOOD SPECIMENOrdering Facility: [facility] Address: [address] [place] [address] Performed By: #### 5 7021-8 ####[facility] [id number] [place] [address] [place] MCH (RBC) [Entitic mass] 30.1 pg Normal 26.0-34.0 [facility] Comment on above: Order Comment: Speci men Type: BLOOD SPECIMENOrdering Facility: [facility] Address: [address] [place] [address] Performed By: #### 5 7021-8 ####[facility] HOSPITALLIA [id number] [place] [address] [place] MCHC (RBC) [Mass/Vol] 33.5 g/dL Normal 30.5-36.0 [facility] Comment on above: Order Comment: Speci men Type: BLOOD SPECIMENOrdering Facility: [facility] Address: [address] [place] [address] Performed By: #### 5 7021-8 ####[facility] APOPKANCLIA [id number] [place] [address] [place] MCV (RBC) [Entitic vol] 89.7 fL Normal 80.0-100.0 [facility] Comment on above: Order Comment: Speci men Type: BLOOD SPECIMENOrdering Facility: [facility] Address: [address] [place] [address] Performed By: #### 5 7021-8 ####[facility] [id number] [place] [address] [place] Monocytes (Bld) [#/Vol] 0.81 10*3/uL Normal <0.87 [facility] Comment on above: Order Comment: Speci men Type: BLOOD SPECIMENOrdering Facility: [facility] Address: [address] [place] [address] Performed By: #### 5 7021-8 ####[facility] [id number] [place] [address] [place] Monocytes/100 WBC (Bld) 9.7 % Normal [facility] Comment on above: Order Comment: Speci men Type: BLOOD SPECIMENOrdering Facility: [facility] Address: [address] [place] [address] Performed By: #### 5 7021-8 ####[facility] [id number] [place] [address] [place] Neutrophils (Bld) [#/Vol] 6.17 10*3/uL Normal 1.45-7.50 [facility] Comment on above: Order Comment: Speci men Type: BLOOD SPECIMENOrdering Facility: [facility] Address: [address] [place] [address] Performed By: #### 5 7021-8 ####[facility]OPKAN[facility] [id number] [place] [address] [place] Neutrophils/100 WBC (Bld) 73.7 % Normal [facility] Comment on above: Order Comment: Speci men Type: BLOOD SPECIMENOrdering Facility: [facility] Address: [address] [place] [address] Performed By: #### 5 7021-8 ####[facility] [id number] [place] [address] [place] Nucleated RBC (Bld) [#/Vol] 10*3/uL Normal <0.01 [facility] Comment on above: Order Comment: Speci men Type: BLOOD SPECIMENOrdering Facility: [facility] Address: [address] [place] [address] Performed By: #### 5 7021-8 ####[facility]KADAQU[facility] [id number] [place] [address] [place] Nucleated RBC/100 WBC (Bld) [Ratio] 0.0 /100 WBC Normal [facility] Comment on above: Order Comment: Speci men Type: BLOOD SPECIMENOrdering Facility: [facility] Address: [address] [place] [address] Performed By: #### 5 7021-8 ####[facility]OPKANCIRISA [id number] [place] [address] [place] Platelet mean volume (Bld) [Entitic vol] 9.5 fL Normal 9.0-12.7 [facility] Comment on above: Order Comment: Speci men Type: BLOOD SPECIMENOrdering Facility: [facility] Address: [address] [place] [address] Performed By: #### 5 7021-8 ####[facility]OPKANCL[facility] [id number] [place] [address] [place] Platelets (Bld) [#/Vol] 165 10*3/uL Normal 150-400 [facility] Comment on above: Order Comment: Speci men Type: BLOOD SPECIMENOrdering Facility: [facility] Address: [address] [place] [address] Performed By: #### 5 7021-8 ####[facility] RENEWNCLIA [id number] [place] [address] [place] RBC (Bld) [#/Vol] 3.59 10*6/uL Low 3.90-5.20 [facility] Comment on above: Order Comment: Speci men Type: BLOOD SPECIMENOrdering Facility: [facility] Address: [address] [place] [address] Performed By: #### 5 7021-8 ####[facility] HOSPITALLIA [id number] [place] [address] [place] WBC (Bld) [#/Vol] 8.36 10*3/uL Normal 3.70-11.00 [facility] Comment on above: Order Comment: Speci men Type: BLOOD SPECIMENOrdering Facility: [facility] Address: [address] [place] [address] Performed By: #### 5 7021-8 ####[facility] [id number] [place] [address] [place] CNOVSPon 12-06-2024 CNOVSP Normal [facility] Comprehensive metabolic 2000 panelon 12-06-2024 Albumin [Mass/Vol] 3.7 g/dL Low 3.9-4.9 [facility] Comment on above: Order Comment: Speci men Type: BLOOD SPECIMENOrdering Facility: [facility] Address: [address] [place], [place] [address] Performed By: #### 1 9123-9, 26130-0 ####[facility]OPKANCL[facility] [id number] [place] [address] [place] ALP [Catalytic activity/Vol] 75 U/L Normal 34-123 [facility] Comment on above: Order Comment: Speci men Type: BLOOD SPECIMENOrdering Facility: [facility] Address: [address] [place] [address] Performed By: #### 1 9123-9, 59771-0 ####[facility] MILLTOWNCLIA [id number] [place] [address] [place] ALT [Catalytic activity/Vol] 13 U/L Normal 7-38 [facility] Comment on above: Order Comment: Speci men Type: BLOOD SPECIMENOrdering Facility: [facility] Address: [address] [place] [address] Performed By: #### 1 9123-9, 86711-9 ####[facility] MILLTOWNCLIA [id number] [place] [address] [place] Anion gap [Moles/Vol] 12 mmol/L Normal 8-15 [facility] Comment on above: Order Comment: Speci men Type: BLOOD SPECIMENOrdering Facility: [facility] Address: [address] [place] [address] Performed By: #### 1 9123-9, 64402-2 ####[facility] MILLTOWNCLIA [id number] [place] [address] [place] AST [Catalytic activity/Vol] 15 U/L Normal 13-35 [facility] Comment on above: Order Comment: Speci men Type: BLOOD SPECIMENOrdering Facility: [facility] Address: [address] [place] [address] Performed By: #### 1 9123-9, 67586-7 ####[facility] MILLTOWNCLIA [id number] [place] [address] [place] Bilirubin [Mass/Vol] 0.3 mg/dL Normal 0.2-1.3 [facility] Comment on above: Order Comment: Speci men Type: BLOOD SPECIMENOrdering Facility: [facility] Address: [address] [place] [address] Performed By: #### 1 9123-9, 03029-9 ####[facility] MILLTOWNCLIA [id number] [place] [address] [place] Calcium [Mass/Vol] 9.3 mg/dL Normal 8.5-10.2 [facility] Comment on above: Order Comment: Speci men Type: BLOOD SPECIMENOrdering Facility: [facility] Address: [address] [place] [address] Performed By: #### 1 9123-9, 72539-5 ####[facility] MILLTOWNCLIA [id number] [place] [address] [place] Chloride [Moles/Vol] 98 mmol/L Normal 98-107 [facility] Comment on above: Order Comment: Speci men Type: BLOOD SPECIMENOrdering Facility: [facility] Address: [address] [place] [address] Performed By: #### 1 9123-9, 11979-1 ####[facility] MILLTOWNCLIA [id number] [place] [address] [place] CO2 [Moles/Vol] 24 mmol/L Normal 22-30 [facility] Comment on above: Order Comment: Speci men Type: BLOOD SPECIMENOrdering Facility: [facility] Address: [address] [place] [address] Performed By: #### 1 9123-9, 31880-9 ####[facility] MILLTOWNCLIA [id number] [place] [address] [place] Creatinine [Mass/Vol] 1.38 mg/dL High 0.58-0.96 [facility] Comment on above: Order Comment: Speci men Type: BLOOD SPECIMENOrdering Facility: [facility] Address: [address] [place] [address] Performed By: #### 1 9123-9, 29623-9 ####[facility] MILLTOWNCLIA [id number] [place] [address] [place] eGFRcr SerPlBld CKD-EPI 2020 39 mL/min/1.73m??? Low >=60 [facility] Comment on above: Order Comment: Guera doll Type: BLOOD SPECIMENOrdering Facility: [facility] Address: [address] [place] [address] Result Comment: Judith mated Glomerular Filtration Rate (eGFR) is calculated using the 2020 CKD-EPI creatinine equation. This equation utilizes serum creatinine, sex, and age as parameters. The creatinine assay has traceable calibration to isotope dilution-mass spectrometry. Refer to KDIGO guidelines for clinical interpretation. In patients with unstable renal function, e.g. those with acute kidney injury, the eGFR may not accurately reflect actual GFR. Performed By: #### 1 9123-9, 77817-7 ####[facility] [id number] [place] [address] [place] Glucose [Mass/Vol] 228 mg/dL High 74-99 [facility] Comment on above: Order Comment: Guera doll Type: BLOOD SPECIMENOrdering Facility: [facility] Address: [address] [place] [address] Result Comment: The [place] [employer] (ADA) provides guidance for cutoff values for fasting glucose and random glucose. The ADA defines fasting as no caloric intake for at least 8 hours. Fasting plasma glucose results between 100 to 125 mg/dL indicate increased risk for diabetes (prediabetes).Fasting plasma glucose results greater than or equal to 126 mg/dL meet the criteria for diagnosis of diabetes. In the absence of unequivocal hyperglycemia, results should be confirmed by repeat testing. In a patient with classic symptoms of hyperglycemia or hyperglycemic crisis, random plasma glucose results greater than or equal to 200 mg/dL meet the criteria for diagnosis of diabetes.Reference: Standards of Medical Care in Diabetes 2016, [place] [employer]. Diabetes Care. 2016.39(Suppl 1). Performed By: #### 1 9123-9, 53250-6 ####[facility] [id number] [place] [address] [place] Potassium [Moles/Vol] 4.6 mmol/L Normal 3.7-5.1 [facility] Comment on above: Order Comment: Speci men Type: BLOOD SPECIMENOrdering Facility: [facility] Address: [address] [place] [address] Performed By: #### 1 9123-9, 40851-6 ####[facility] MILLTOWNCLIA [id number] [place] [address] [place] Protein [Mass/Vol] 7.1 g/dL Normal 6.3-8.0 [facility] Comment on above: Order Comment: Speci men Type: BLOOD SPECIMENOrdering Facility: [facility] Address: [address] [place] [address] Performed By: #### 1 9123-9, 02602-7 ####[facility]OSPIT[facility] [id number] [place] [address] [place] Sodium [Moles/Vol] 134 mmol/L Low 136-144 [facility] Comment on above: Order Comment: Speci men Type: BLOOD SPECIMENOrdering Facility: [facility] Address: [address] [place] [address] Performed By: #### 1 9123-9, ####[facility] MILLBELLONANCLIA [id number] [place] [address] [place] Urea nitrogen [Mass/Vol] 27 mg/dL High 7-21 [facility] Comment on above: Order Comment: Speci men Type: BLOOD SPECIMENOrdering Facility: [facility] Address: [address] [place] [address] Performed By: #### 1 9123-9, 02396-5 ####[facility] [id number] [place] [address] [place] Magnesium SerPl-mCncon 12-06 Magnesium [Mass/Vol] 1.6 mg/dL Low 1.7-2.3 [facility] Comment on above: Order Comment: Speci men Type: BLOOD SPECIMENOrdering Facility: [facility] Address: [address] [place] [address] Performed By: #### 1 9123-9, 64423-8 ####[facility]CL[facility] [id number] [place] [address] [place] CNPNon 12-03-2024 CNPN Normal [facility] CNPNon 11-24-2024 CNPN Normal [facility] CBC W Auto Differential pane l (Bld)on 11-16-2024 Basophils (Bld) [#/Vol] 0.04 10*3/uL Normal <0.11 [facility] Comment on above: Order Comment: Speci men Type: BLOOD SPECIMENOrdering Facility: [facility] Address: [address] [place] [address] Performed By: #### 5 7021-8 ####[facility] [id number] [place] [address] [place] Basophils/100 WBC (Bld) 0.5 % Normal [facility] Comment on above: Order Comment: Speci men Type: BLOOD SPECIMENOrdering Facility: [facility] Address: [address] [place] [address] Performed By: #### 5 7021-8 ####[facility] [id number] [place] [address] [place] Differential cell count method Nom (Bld) Auto Normal [facility] Comment on above: Order Comment: Speci men Type: BLOOD SPECIMENOrdering Facility: [facility] Address: [address] [place] [address] Performed By: #### 5 7021-8 ####[facility] [id number] [place] [address] [place] Eosinophils (Bld) [#/Vol] 0.16 10*3/uL Normal <0.46 [facility] Comment on above: Order Comment: Speci men Type: BLOOD SPECIMENOrdering Facility: [facility] Address: [address] [place] [address] Performed By: #### 5 7021-8 ####[facility] [id number] [place] [address] [place] Eosinophils/100 WBC (Bld) 2.2 % Normal [facility] Comment on above: Order Comment: Speci men Type: BLOOD SPECIMENOrdering Facility: [facility] Address: [address] [place] [address] Performed By: #### 5 7021-8 ####[facility] RENEBELLONAANAMAARON [id number] [place] [address] [place] Erythrocyte distribution width (RBC) [Ratio] 14.4 % Normal 11.5-15.0 [facility] Comment on above: Order Comment: Speci men Type: BLOOD SPECIMENOrdering Facility: [facility] Address: [address] [place] [address] Performed By: #### 5 7021-8 ####[facility] RENEBELLONAANAMAARON [id number] [place] [address] [place] Hematocrit (Bld) [Volume fraction] 33.2 % Low 36.0-46.0 [facility] Comment on above: Order Comment: Speci men Type: BLOOD SPECIMENOrdering Facility: [facility] Address: [address] [place] [address] Performed By: #### 5 7021-8 ####[facility] RENEBELLONAANAMLIA [id number] [place] [address] [place] Hemoglobin (Bld) [Mass/Vol] 11.0 g/dL Low 11.5-15.5 [facility] Comment on above: Order Comment: Speci men Type: BLOOD SPECIMENOrdering Facility: [facility] Address: [address] [place] [address] Performed By: #### 5 7021-8 ####[facility] MILLWNCLIA [id number] [place] [address] [place] Immature granulocytes (Bld) [#/Vol] 10*3/uL Normal <0.10 [facility] Comment on above: Order Comment: Speci men Type: BLOOD SPECIMENOrdering Facility: [facility] Address: [address] [place] [address] Performed By: #### 5 7021-8 ####[facility] [id number] [place] [address] [place] Immature granulocytes/100 WBC (Bld) 0.3 % Normal [facility] Comment on above: Order Comment: Speci men Type: BLOOD SPECIMENOrdering Facility: [facility] Address: [address] [place] [address] Performed By: #### 5 7021-8 ####[facility] [id number] [place] [address] [place] Lymphocytes (Bld) [#/Vol] 1.15 10*3/uL Normal 1.00-4.00 [facility] Comment on above: Order Comment: Speci men Type: BLOOD SPECIMENOrdering Facility: [facility] Address: [address] [place] [address] Performed By: #### 5 7021-8 ####[facility] [id number] [place] [address] [place] Lymphocytes/100 WBC (Bld) 15.6 % Normal [facility] Comment on above: Order Comment: Speci men Type: BLOOD SPECIMENOrdering Facility: [facility] Address: [address] [place] [address] Performed By: #### 5 7021-8 ####[facility] [id number] [place] [address] [place] MCH (RBC) [Entitic mass] 30.1 pg Normal 26.0-34.0 [facility] Comment on above: Order Comment: Speci men Type: BLOOD SPECIMENOrdering Facility: [facility] Address: [address] [place] [address] Performed By: #### 5 7021-8 ####[facility]KANCIRISA [id number] [place] [address] [place] MCHC (RBC) [Mass/Vol] 33.1 g/dL Normal 30.5-36.0 [facility] Comment on above: Order Comment: Speci men Type: BLOOD SPECIMENOrdering Facility: [facility] Address: [address] [place] [address] Performed By: #### 5 7021-8 ####[facility] [id number] [place] [address] [place] MCV (RBC) [Entitic vol] 91.0 fL Normal 80.0-100.0 [facility] Comment on above: Order Comment: Speci men Type: BLOOD SPECIMENOrdering Facility: [facility] Address: [address] [place] [address] Performed By: #### 5 7021-8 ####[facility]CL[facility] [id number] [place] [address] [place] Monocytes (Bld) [#/Vol] 0.61 10*3/uL Normal <0.87 [facility] Comment on above: Order Comment: Speci men Type: BLOOD SPECIMENOrdering Facility: [facility] Address: [address] [place] [address] Performed By: #### 5 7021-8 ####[facility] [id number] [place] [address] [place] Monocytes/100 WBC (Bld) 8.3 % Normal [facility] Comment on above: Order Comment: Speci men Type: BLOOD SPECIMENOrdering Facility: [facility] Address: [address] [place] [address] Performed By: #### 5 7021-8 ####[facility] RENERENATALIA [id number] [place] [address] [place] Neutrophils (Bld) [#/Vol] 5.40 10*3/uL Normal 1.45-7.50 [facility] Comment on above: Order Comment: Speci men Type: BLOOD SPECIMENOrdering Facility: [facility] Address: [address] [place] [address] Performed By: #### 5 7021-8 ####[facility] [id number] [place] [address] [place] Neutrophils/100 WBC (Bld) 73.1 % Normal [facility] Comment on above: Order Comment: Speci men Type: BLOOD SPECIMENOrdering Facility: [facility] Address: [address] [place] [address] Performed By: #### 5 7021-8 ####[facility] [id number] [place] [address] [place] Nucleated RBC (Bld) [#/Vol] 10*3/uL Normal <0.01 [facility] Comment on above: Order Comment: Speci men Type: BLOOD SPECIMENOrdering Facility: [facility] Address: [address] [place] [address] Performed By: #### 5 7021-8 ####[facility] [id number] [place] [address] [place] Nucleated RBC/100 WBC (Bld) [Ratio] 0.0 /100 WBC Normal [facility] Comment on above: Order Comment: Speci men Type: BLOOD SPECIMENOrdering Facility: [facility] Address: [address] [place] [address] Performed By: #### 5 7021-8 ####[facility] [id number] [place] [address] [place] Platelet mean volume (Bld) [Entitic vol] 9.0 fL Normal 9.0-12.7 [facility] Comment on above: Order Comment: Speci men Type: BLOOD SPECIMENOrdering Facility: [facility] Address: [address] [place] [address] Performed By: #### 5 7021-8 ####[facility] [id number] [place] [address] [place] Platelets (Bld) [#/Vol] 153 10*3/uL Normal 150-400 [facility] Comment on above: Order Comment: Speci men Type: BLOOD SPECIMENOrdering Facility: [facility] Address: [address] [place] [address] Performed By: #### 5 7021-8 ####[facility] [id number] [place] [address] [place] RBC (Bld) [#/Vol] 3.65 10*6/uL Low 3.90-5.20 [facility] Comment on above: Order Comment: Speci men Type: BLOOD SPECIMENOrdering Facility: [facility] Address: [address] [place] [address] Performed By: #### 5 7021-8 ####[facility] [id number] [place] [address] [place] WBC (Bld) [#/Vol] 7.38 10*3/uL Normal 3.70-11.00 [facility] Comment on above: Order Comment: Speci men Type: BLOOD SPECIMENOrdering Facility: [facility] Address: [address] [place] [address] Performed By: #### 5 7021-8 ####[facility] [id number] [place] [address] [place] CNOVSPon 11-16-2024 CNOVSP Normal [facility] Comprehensive metabolic 2000 panelon 11-16-2024 Albumin [Mass/Vol] 3.6 g/dL Low 3.9-4.9 [facility] Comment on above: Order Comment: Speci men Type: BLOOD SPECIMENOrdering Facility: [facility] Address: [address] [place] [address] Performed By: #### 2 4323-8, ####[facility] MILLTOWNCLIA [id number] [place] [address] [place] ALP [Catalytic activity/Vol] 83 U/L Normal 34-123 [facility] Comment on above: Order Comment: Speci men Type: BLOOD SPECIMENOrdering Facility: [facility] Address: [address] [place] [address] Performed By: #### 2 432-8, ####[facility] MILLTOWNCLIA [id number] [place] [address] [place] ALT [Catalytic activity/Vol] 14 U/L Normal 7-38 [facility] Comment on above: Order Comment: Speci men Type: BLOOD SPECIMENOrdering Facility: [facility] Address: [address] [place] [address] Performed By: #### 2 4323-8, ####[facility] MILLTOWNCLIA [id number] [place] [address] [place] Anion gap [Moles/Vol] 11 mmol/L Normal 8-15 [facility] Comment on above: Order Comment: Speci men Type: BLOOD SPECIMENOrdering Facility: [facility] Address: [address] [place] [address] Performed By: #### 2 4323-8, 53340-0 ####[facility] MILLTOWNCLIA [id number] [place] [address] [place] AST [Catalytic activity/Vol] 13 U/L Normal 13-35 [facility] Comment on above: Order Comment: Speci men Type: BLOOD SPECIMENOrdering Facility: [facility] Address: [address] [place] [address] Performed By: #### 2 4323-8, 08822-0 ####[facility] MILLTOWANAMLIA [id number] [place] [address] [place] Bilirubin [Mass/Vol] 0.3 mg/dL Normal 0.2-1.3 [facility] Comment on above: Order Comment: Speci men Type: BLOOD SPECIMENOrdering Facility: [facility] Address: [address] [place] [address] Performed By: #### 2 4323-8, 31385-3 ####[facility] SERVICESWDAQUAN [id number] [place] [address] [place] Calcium [Mass/Vol] 9.4 mg/dL Normal 8.5-10.2 [facility] Comment on above: Order Comment: Speci men Type: BLOOD SPECIMENOrdering Facility: [facility] Address: [address] [place] [address] Performed By: #### 2 4323-8, ####[facility]ML[facility] [id number] [place] [address] [place] Chloride [Moles/Vol] 99 mmol/L Normal 98-107 [facility] Comment on above: Order Comment: Speci men Type: BLOOD SPECIMENOrdering Facility: [facility] Address: [address] [place] [address] Performed By: #### 2 4323-8, ####[facility] MILLTOWNCLIA [id number] [place] [address] [place] CO2 [Moles/Vol] 27 mmol/L Normal 22-30 [facility] Comment on above: Order Comment: Speci men Type: BLOOD SPECIMENOrdering Facility: [facility] Address: [address] [place] [address] Performed By: #### 2 4323-8, ####[facility] [id number] [place] [address] [place] Creatinine [Mass/Vol] 1.23 mg/dL High 0.58-0.96 [facility] Comment on above: Order Comment: Speci men Type: BLOOD SPECIMENOrdering Facility: [facility] Address: [address] [place] [address] Performed By: #### 2 4323-8, ####[facility] [id number] [place] [address] [place] eGFRcr SerPlBld CKD-EPI 2020 45 mL/min/1.73m??? Low >=60 [facility] Comment on above: Order Comment: Speci men Type: BLOOD SPECIMENOrdering Facility: [facility] Address: [address] [place] [address] Result Comment: Judith mated Glomerular Filtration Rate (eGFR) is calculated using the 2020 CKD-EPI creatinine equation. This equation utilizes serum creatinine, sex, and age as parameters. The creatinine assay has traceable calibration to isotope dilution-mass spectrometry. Refer to KDIGO guidelines for clinical interpretation. In patients with unstable renal function, e.g. those with acute kidney injury, the eGFR may not accurately reflect actual GFR. Performed By: #### 2 4323-8, ####[facility] [id number] [place] [address] [place] Glucose [Mass/Vol] 233 mg/dL High 74-99 [facility] Comment on above: Order Comment: Speci men Type: BLOOD SPECIMENOrdering Facility: [facility] Address: [address] [place] [address] Result Comment: The [place] Diabetes [employer] (ADA) provides guidance for cutoff values for fasting glucose and random glucose. The ADA defines fasting as no caloric intake for at least 8 hours. Fasting plasma glucose results between 100 to 125 mg/dL indicate increased risk for diabetes (prediabetes).Fasting plasma glucose results greater than or equal to 126 mg/dL meet the criteria for diagnosis of diabetes. In the absence of unequivocal hyperglycemia, results should be confirmed by repeat testing. In a patient with classic symptoms of hyperglycemia or hyperglycemic crisis, random plasma glucose results greater than or equal to 200 mg/dL meet the criteria for diagnosis of diabetes.Reference: Standards of Medical Care in Diabetes 2016, [place] [employer]. Diabetes Care. 2016.39(Suppl 1). Performed By: #### 2 4323-8, ####[facility]QU[facility] [id number] [place] [address] [place] Potassium [Moles/Vol] 4.9 mmol/L Normal 3.7-5.1 [facility] Comment on above: Order Comment: Speci men Type: BLOOD SPECIMENOrdering Facility: [facility] Address: [address] [place] [address] Performed By: #### 2 4323-8, ####[facility]ITALAARON [id number] [place] [address] [place] Protein [Mass/Vol] 6.8 g/dL Normal 6.3-8.0 [facility] Comment on above: Order Comment: Speci men Type: BLOOD SPECIMENOrdering Facility: [facility] Address: [address] [place], [place] [address] Performed By: #### 2 4323-8, ####[facility] [id number] [place] [address] [place] Sodium [Moles/Vol] 137 mmol/L Normal 136-144 [facility] Comment on above: Order Comment: Speci men Type: BLOOD SPECIMENOrdering Facility: [facility] Address: [address] [id number] Performed By: #### 2 4323-8, 90405-8 ####[facility] BROOKEDAQUAN [id number] [place] [address] [place] Urea nitrogen [Mass/Vol] 29 mg/dL High 7-21 [facility] Comment on above: Order Comment: Speci men Type: BLOOD SPECIMENOrdering Facility: [facility] Address: [address] [place] [address] Performed By: #### 2 4323-8, 45372-3 ####[facility] RENEBELLONADAQUAN [id number] [place] [address] [place] Magnesium SerPl-mCncon 11-16 Magnesium [Mass/Vol] 1.4 mg/dL Low 1.7-2.3 [facility] Comment on above: Order Comment: Speci men Type: BLOOD SPECIMENOrdering Facility: [facility] Address: [address] [place] [address] Performed By: #### 2 4323-8, 35351-0 ####[facility] RENEPAYNESVILLE HOSPITALA [id number] [place] [address] [place] CBC W Auto Differential pane l (Bld)on 10-25-2024 Basophils (Bld) [#/Vol] 0.03 10*3/uL [facility] Basophils/100 WBC (Bld) 0.5 % C [facility] Differential cell count method Nom (Bld) Auto [facility] Eosinophils (Bld) [#/Vol] 0.17 10*3/uL [facility] Eosinophils/100 WBC (Bld) 2.8 % [facility] Erythrocyte distribution width (RBC) [Ratio] 13.7 % 11.5 - 15.0 % [facility] Hematocrit (Bld) [Volume fraction] 33.1 % Low 36.0 - 46.0 % [facility] Hemoglobin (Bld) [Mass/Vol] 11.1 g/dL Low 11.5 - 15.5 g/dL [facility] Immature granulocytes (Bld) [#/Vol] [facility] Immature granulocytes/100 WBC (Bld) 0.2 % [facility] Interpretation and review of laboratory results Abnormal [facility] Lymphocytes (Bld) [#/Vol] 1.07 10*3/uL [facility] Lymphocytes/100 WBC (Bld) 17.6 % [facility] MCH (RBC) [Entitic mass] 30.8 pg 26.0 - 34.0 pg [facility] MCHC (RBC) [Mass/Vol] 33.5 g/dL 30.5 - 36.0 g/dL [facility] MCV (RBC) [Entitic vol] 91.9 fL 80.0 - 100.0 fL [facility] Monocytes (Bld) [#/Vol] 0.52 10*3/uL [facility] Monocytes/100 WBC (Bld) 8.6 % [facility] Neutrophils (Bld) [#/Vol] 4.28 10*3/uL [facility] Neutrophils/100 WBC (Bld) 70.3 % [facility] Nucleated RBC (Bld) [#/Vol] [facility] Nucleated RBC/100 WBC (Bld) [Ratio] 0.0 % /100 WBC [facility] Platelet mean volume (Bld) [Entitic vol] 9.3 fL 9.0 - 12.7 fL [facility] Platelets (Bld) [#/Vol] 141 10*3/uL Low [facility] RBC (Bld) [#/Vol] 3.60 10*6/uL Low 3.90 - 5.2 0 m/uL [facility] WBC (Bld) [#/Vol] 6.08 10*3/uL [facility] Basophils (Bld) [#/Vol] 0.03 10*3/uL Normal <0.11 [facility] Comment on above: Order Comment: Speci men Type: BLOOD SPECIMENOrdering Facility: [facility] Address: [address] [place] [address] Performed By: #### 5 7021-8 ####[facility] – JACKSONAmalia [id number] [place] [address] [place] Basophils/100 WBC (Bld) 0.5 % Normal C [facility] Comment on above: Order Comment: Speci men Type: BLOOD SPECIMENOrdering Facility: [facility] Address: [address] [place] [address] Performed By: #### 5 7021-8 ####[facility] [id number] [place] [address] [place] Differential cell count method Nom (Bld) Auto Normal [facility] Comment on above: Order Comment: Speci men Type: BLOOD SPECIMENOrdering Facility: [facility] Address: [address] [place] [address] Performed By: #### 5 7021-8 ####[facility] [id number] [place] [address] [place] Eosinophils (Bld) [#/Vol] 0.17 10*3/uL Normal <0.46 [facility] Comment on above: Order Comment: Speci men Type: BLOOD SPECIMENOrdering Facility: [facility] Address: [address] [place] [address] Performed By: #### 5 7021-8 ####[facility] [id number] [place] [address] [place] Eosinophils/100 WBC (Bld) 2.8 % Normal [facility] Comment on above: Order Comment: Speci men Type: BLOOD SPECIMENOrdering Facility: [facility] Address: [address] [place] [address] Performed By: #### 5 7021-8 ####[facility] [id number] [place] [address] [place] Erythrocyte distribution width (RBC) [Ratio] 13.7 % Normal 11.5-15.0 [facility] Comment on above: Order Comment: Speci men Type: BLOOD SPECIMENOrdering Facility: [facility] Address: [address] [place] [address] Performed By: #### 5 7021-8 ####[facility] RENEWANAMLIA [id number] [place] [address] [place] Hematocrit (Bld) [Volume fraction] 33.1 % Low 36.0-46.0 [facility] Comment on above: Order Comment: Speci men Type: BLOOD SPECIMENOrdering Facility: [facility] Address: [address] [place] [address] Performed By: #### 5 7021-8 ####[facility] [id number] [place] [address] [place] Hemoglobin (Bld) [Mass/Vol] 11.1 g/dL Low 11.5-15.5 [facility] Comment on above: Order Comment: Speci men Type: BLOOD SPECIMENOrdering Facility: [facility] Address: [address] [place] [address] Performed By: #### 5 7021-8 ####[facility] [id number] [place] [address] [place] Immature granulocytes (Bld) [#/Vol] 10*3/uL Normal <0.10 [facility] Comment on above: Order Comment: Speci men Type: BLOOD SPECIMENOrdering Facility: [facility] Address: [address] [place] [address] Performed By: #### 5 7021-8 ####[facility] [id number] [place] [address] [place] Immature granulocytes/100 WBC (Bld) 0.2 % Normal [facility] Comment on above: Order Comment: Speci men Type: BLOOD SPECIMENOrdering Facility: [facility] Address: [address] [place] [address] Performed By: #### 5 7021-8 ####[facility] [id number] [place] [address] [place] Lymphocytes (Bld) [#/Vol] 1.07 10*3/uL Normal 1.00-4.00 [facility] Comment on above: Order Comment: Speci men Type: BLOOD SPECIMENOrdering Facility: [facility] Address: [address] [place] [address] Performed By: #### 5 7021-8 ####[facility] [id number] [place] [address] [place] Lymphocytes/100 WBC (Bld) 17.6 % Normal [facility] Comment on above: Order Comment: Speci men Type: BLOOD SPECIMENOrdering Facility: [facility] Address: [address] [place] [address] Performed By: #### 5 7021-8 ####[facility] [id number] [place] [address] [place] MCH (RBC) [Entitic mass] 30.8 pg Normal 26.0-34.0 [facility] Comment on above: Order Comment: Speci men Type: BLOOD SPECIMENOrdering Facility: [facility] Address: [address] [place] [address] Performed By: #### 5 7021-8 ####[facility] [id number] [place] [address] [place] MCHC (RBC) [Mass/Vol] 33.5 g/dL Normal 30.5-36.0 [facility] Comment on above: Order Comment: Speci men Type: BLOOD SPECIMENOrdering Facility: [facility] Address: [address] [place] [address] Performed By: #### 5 7021-8 ####[facility] [id number] [place] [address] [place] MCV (RBC) [Entitic vol] 91.9 fL Normal 80.0-100.0 C [facility] Comment on above: Order Comment: Speci men Type: BLOOD SPECIMENOrdering Facility: [facility] Address: [address] [place] [address] Performed By: #### 5 7021-8 ####[facility] [id number] [place] [address] [place] Monocytes (Bld) [#/Vol] 0.52 10*3/uL Normal <0.87 [facility] Comment on above: Order Comment: Speci men Type: BLOOD SPECIMENOrdering Facility: [facility] Address: [address] [place] [address] Performed By: #### 5 7021-8 ####[facility] [id number] [place] [address] [place] Monocytes/100 WBC (Bld) 8.6 % Normal C [facility] Comment on above: Order Comment: Speci men Type: BLOOD SPECIMENOrdering Facility: [facility] Address: [address] [place] [address] Performed By: #### 5 7021-8 ####[facility] [id number] [place] [address] [place] Neutrophils (Bld) [#/Vol] 4.28 10*3/uL Normal 1.45-7.50 [facility] Comment on above: Order Comment: Speci men Type: BLOOD SPECIMENOrdering Facility: [facility] Address: [address] [place] [address] Performed By: #### 5 7021-8 ####[facility] [id number] [place] [address] [place] Neutrophils/100 WBC (Bld) 70.3 % Normal [facility] Comment on above: Order Comment: Speci men Type: BLOOD SPECIMENOrdering Facility: [facility] Address: [address] [place] [address] Performed By: #### 5 7021-8 ####[facility] [id number] [place] [address] [place] Nucleated RBC (Bld) [#/Vol] 10*3/uL Normal <0.01 [facility] Comment on above: Order Comment: Speci men Type: BLOOD SPECIMENOrdering Facility: [facility] Address: [address] [place] [address] Performed By: #### 5 7021-8 ####[facility] [id number] [place] [address] [place] Nucleated RBC/100 WBC (Bld) [Ratio] 0.0 /100 WBC Normal [facility] Comment on above: Order Comment: Speci men Type: BLOOD SPECIMENOrdering Facility: [facility] Address: [address] [place] [address] Performed By: #### 5 7021-8 ####[facility] [id number] [place] [address] [place] Platelet mean volume (Bld) [Entitic vol] 9.3 fL Normal 9.0-12.7 [facility] Comment on above: Order Comment: Speci men Type: BLOOD SPECIMENOrdering Facility: [facility] Address: [address] [place] [address] Performed By: #### 5 7021-8 ####[facility] [id number] [place] [address] [place] Platelets (Bld) [#/Vol] 141 10*3/uL Low 150-400 [facility] Comment on above: Order Comment: Speci men Type: BLOOD SPECIMENOrdering Facility: [facility] Address: [address] [place] [address] Performed By: #### 5 7021-8 ####[facility] [id number] [place] [address] [place] RBC (Bld) [#/Vol] 3.60 10*6/uL Low 3.90-5.20 [facility] Comment on above: Order Comment: Speci men Type: BLOOD SPECIMENOrdering Facility: [facility] Address: [address] [place] [address] Performed By: #### 5 7021-8 ####[facility] [id number] [place] [address] [place] WBC (Bld) [#/Vol] 6.08 10*3/uL Normal 3.70-11.00 [facility] Comment on above: Order Comment: Speci men Type: BLOOD SPECIMENOrdering Facility: [facility] Address: [address] [place] [address] Performed By: #### 5 7021-8 ####[facility] [id number] [place] [address] [place] CNOVSPon 10-25-2024 CNOVSP Normal [facility] metabolic 2000 panelOrdered By: Tatyana Frost on 10-25-2024 Albumin [Mass/Vol] 3.7 g/dL Low 3.9 - 4.9 g/dL [facility] ALP [Catalytic activity/Vol] 83 U/L 34 - 123 U/L [facility] ALT [Catalytic activity/Vol] 14 U/L 7 - 38 U/L [facility] Anion gap [Moles/Vol] 11 mmol/L 8 - 15 mmol/L [facility] AST [Catalytic activity/Vol] 13 U/L 13 - 35 U/L [facility] Bilirubin [Mass/Vol] 0.4 mg/dL 0.2 - 1 .3 mg/dL [facility] Calcium [Mass/Vol] 9.5 mg/dL 8.5 - 10. 2 mg/dL [facility] Chloride [Moles/Vol] 99 mmol/L 98 - 10 7 mmol/L [facility] CO2 [Moles/Vol] 27 mmol/L 22 - 30 mmol/L [facility] Creatinine [Mass/Vol] 1.19 mg/dL High 0.58 - 0.96 mg/dL [facility] GFR/1.73 sq M.predicted among non-blacks MDRD (S/P/Bld) [Vol rate/Area] 47 mL/min/{1.73_m2} Low - PINF [facility] Comment on above: Estimated Glomerular Filtration Rate (eGFR) is calculated using the 2020 CKD-EPI creatinine equation. This equation utilizes serum creatinine, sex, and age as parameters. The creatinine assay has traceable calibration to isotope dilution-mass spectrometry. Refer to KDIGO guidelines for clinical interpretation. In patients with unstable renal function, e.g. those with acute kidney injury, the eGFR may not accurately reflect actual GFR. Glucose [Mass/Vol] 287 mg/dL High 74 - 99 mg/dL [facility] Comment on above: The [place] Diab[employer] s Association (ADA) provides guidance for cutoff values for fasting glucose and random glucose. The ADA defines fasting as no caloric intake for at least 8 hours. Fasting plasma glucose results between 100 to 125 mg/dL indicate increased risk for diabetes (prediabetes). Fasting plasma glucose results greater than or equal to 126 mg/dL meet the criteria for diagnosis of diabetes. In the absence of unequivocal hyperglycemia, results should be confirmed by repeat testing. In a patient with classic symptoms of hyperglycemia or hyperglycemic crisis, random plasma glucose results greater than or equal to 200 mg/dL meet the criteria for diagnosis of diabetes. Reference: Standards of Medical Care in Diabetes 2016, [place] [employer] Association. Diabetes Care. 2016.39(Suppl 1). Potassium [Moles/Vol] 4.5 mmol/L 3.7 - 5.1 mmol/L [facility] Protein [Mass/Vol] 6.8 g/dL 6.3 - 8.0 g/dL [facility] Sodium [Moles/Vol] 137 mmol/L 136 - 144 mmol/L [facility] Urea nitrogen [Mass/Vol] 23 mg/dL High 7 - 21 mg/dL [facility] Comprehensive metabolic 2000 panelon 10-25-2024 Albumin [Mass/Vol] 3.7 g/dL Low 3.9-4.9 [facility] Comment on above: Order Comment: Speci men Type: BLOOD SPECIMENOrdering Facility: [facility] Address: [address] [place] [address] Performed By: #### 2 4323-8, ####[facility] DENNIS MILLTOWNCLIA [id number] [place] [address] [place] ALP [Catalytic activity/Vol] 83 U/L Normal 34-123 [facility] Comment on above: Order Comment: Speci men Type: BLOOD SPECIMENOrdering Facility: [facility] Address: [address] [place] [address] Performed By: #### 2 432-8, ####[facility] MILLTOWNCLIA [id number] [place] [address] [place] ALT [Catalytic activity/Vol] 14 U/L Normal 7-38 [facility] Comment on above: Order Comment: Speci men Type: BLOOD SPECIMENOrdering Facility: [facility] Address: [address] [place] [address] Performed By: #### 2 432-8, ####[facility] HE[facility] SERVICESWNCLIA [id number] [place] [address] [place] Anion gap [Moles/Vol] 11 mmol/L Normal 8-15 [facility] Comment on above: Order Comment: Speci men Type: BLOOD SPECIMENOrdering Facility: [facility] Address: [address] [place] [address] Performed By: #### 2 4323-8, ####[facility] MILLTOWNCLIA [id number] [place] [address] [place] AST [Catalytic activity/Vol] 13 U/L Normal 13-35 [facility] Comment on above: Order Comment: Speci men Type: BLOOD SPECIMENOrdering Facility: [facility] Address: [address] [place] [address] Performed By: #### 2 4323-8, ####[facility] MILLTOWNCLIA [id number] [place] [address] [place] Bilirubin [Mass/Vol] 0.4 mg/dL Normal 0.2-1.3 [facility] Comment on above: Order Comment: Speci men Type: BLOOD SPECIMENOrdering Facility: [facility] Address: [address] [place] [address] Performed By: #### 2 4323-8, ####[facility] MILLTOWNCLIA [id number] [place] [address] [place] Calcium [Mass/Vol] 9.5 mg/dL Normal 8.5-10.2 [facility] Comment on above: Order Comment: Speci men Type: BLOOD SPECIMENOrdering Facility: [facility] Address: [address] [place] [address] Performed By: #### 2 4323-8, ####[facility] HE[facility] SERVICESWANAMLIA [id number] [place] [address] [place] Chloride [Moles/Vol] 99 mmol/L Normal 98-107 [facility] Comment on above: Order Comment: Speci men Type: BLOOD SPECIMENOrdering Facility: [facility] Address: [address] [place] [address] Performed By: #### 2 4323-8, ####[facility] MILLWANAMLIA [id number] [place] [address] [place] CO2 [Moles/Vol] 27 mmol/L Normal 22-30 [facility] Comment on above: Order Comment: Speci men Type: BLOOD SPECIMENOrdering Facility: [facility] Address: [address] [place] [address] Performed By: #### 2 4323-8, ####[facility] HE[facility] SERVICESWNCLIA [id number] [place] [address] [place] Creatinine [Mass/Vol] 1.19 mg/dL High 0.58-0.96 [facility] Comment on above: Order Comment: Guera doll Type: BLOOD SPECIMENOrdering Facility: [facility] Address: [address] [place] [address] Performed By: #### 2 4323-8, ####[facility] [id number] [place] [address] [place] eGFRcr SerPlBld CKD-EPI 2020 47 mL/min/1.73m??? Low >=60 [facility] Comment on above: Order Comment: Guera doll Type: BLOOD SPECIMENOrdering Facility: [facility] Address: [address] [place] [address] Result Comment: Judith mated Glomerular Filtration Rate (eGFR) is calculated using the 2020 CKD-EPI creatinine equation. This equation utilizes serum creatinine, sex, and age as parameters. The creatinine assay has traceable calibration to isotope dilution-mass spectrometry. Refer to KDIGO guidelines for clinical interpretation. In patients with unstable renal function, e.g. those with acute kidney injury, the eGFR may not accurately reflect actual GFR. Performed By: #### 2 4323-8, ####[facility] [id number] [place] [address] [place] Glucose [Mass/Vol] 287 mg/dL High 74-99 [facility] Comment on above: Order Comment: Guera doll Type: BLOOD SPECIMENOrdering Facility: [facility] Address: [address] [place] [address] Result Comment: The [place] Diabetes Association (ADA) provides guidance for cutoff values for fasting glucose and random glucose. The ADA defines fasting as no caloric intake for at least 8 hours. Fasting plasma glucose results between 100 to 125 mg/dL indicate increased risk for diabetes (prediabetes).Fasting plasma glucose results greater than or equal to 126 mg/dL meet the criteria for diagnosis of diabetes. In the absence of unequivocal hyperglycemia, results should be confirmed by repeat testing. In a patient with classic symptoms of hyperglycemia or hyperglycemic crisis, random plasma glucose results greater than or equal to 200 mg/dL meet the criteria for diagnosis of diabetes.Reference: Standards of Medical Care in Diabetes 2016, [place] Diabetes Association. Diabetes Care. 2016.39(Suppl 1). Performed By: #### 2 4323-8, ####[facility] RENEWNCLIA [id number] [place] [address] [place] Potassium [Moles/Vol] 4.5 mmol/L Normal 3.7-5.1 [facility] Comment on above: Order Comment: Speci men Type: BLOOD SPECIMENOrdering Facility: [facility] Address: [address] [place], [place] [id number] Performed By: #### 2 4323-8, ####[facility] [id number] [place] [address] [place] Protein [Mass/Vol] 6.8 g/dL Normal 6.3-8.0 [facility] Comment on above: Order Comment: Speci men Type: BLOOD SPECIMENOrdering Facility: [facility] Address: [address] [place], [place] [address] Performed By: #### 2 4323-8, ####[facility] [id number] [place] [address] [place] Sodium [Moles/Vol] 137 mmol/L Normal 136-144 [facility] Comment on above: Order Comment: Speci men Type: BLOOD SPECIMENOrdering Facility: [facility] Address: [address] [place] [address] Performed By: #### 2 4323-8, ####[facility]CL[facility] [id number] [place] [address] [place] Urea nitrogen [Mass/Vol] 23 mg/dL High 7-21 [facility] Comment on above: Order Comment: Speci men Type: BLOOD SPECIMENOrdering Facility: [facility] Address: [address] [place], [place] [address] [address] Performed By: #### 2 4323-8, 92182-3 ####[facility] DENNIS RENEBELLONANCLIA [id number] [place], [place] [address] [place] [address] [place] MAGNESIUMon 10-25-2024 Magnesium [Mass/Vol] 1.4 mg/dL Low 1.7 - 2 .3 mg/dL [facility] Magnesium SerPl-mCncon 10-25 Magnesium [Mass/Vol] 1.4 mg/dL Low 1.7-2.3 [facility] Comment on above: Order Comment: Speci men Type: BLOOD SPECIMENOrdering Facility: [facility] Address: [address] [place] [address] Performed By: #### 2 4323-8, ####[facility] [id number] [place] [address] [place] No Panel InformationOrdered By: Tatyana Frost on 10-25-2024 Interpretation and review of laboratory results Abnormal [facility] UA DIP, URINE (POC)on 2024 BILIRUBIN UA (POCT) Negative Negative [facility] CLARITY UA (POCT) Clear [facility] COLOR UA (POCT) Yellow [facility] GLUCOSE UA (POCT) Negative Negative mg/dL [facility] Hemoglobin Ql (U) Negative Negative [facility] Interpretation and review of laboratory results Abnormal [facility] KETONE UA (POCT) Negative Negative mg/dL [facility] LEUKOCYTES UA (POCT) Trace Abnormal Negative [facility] NITRITE UA (POCT) Negative Negative [facility] PH UA (POCT) 6.0 4.5 - 8.0 [facility] Protein Ql (U) Trace Abnormal Negative mg/dL [facility] SPECIFIC GRAVITY UA (POCT) 1.010 1.005 - 1.030 [facility] UROBILINOGEN UA (POCT) 0.2 Areli l E.U./dL [facility] Location:[facility], [address] [facility], [place], [place], [address] [place] [address] POINT OF CARE [facility] CBC W Auto Differential pane l (Bld)on 10-05-2024 Basophils (Bld) [#/Vol] 0.03 10*3/uL Normal <0.11 [facility] Comment on above: Order Comment: Speci men Type: BLOOD SPECIMENOrdering Facility: [facility] Address: [address] [place] [address] Performed By: #### 5 7021-8 ####[facility]IOR[facility] HE[facility] SERVICESWKYLIA [id number] [place] [address] [place] Basophils/100 WBC (Bld) 0.4 % Normal [facility] Comment on above: Order Comment: Speci men Type: BLOOD SPECIMENOrdering Facility: [facility] Address: [address] [place] [address] Performed By: #### 5 7021-8 ####[facility] [id number] [place] [address] [place] Differential cell count method Nom (Bld) Auto Normal [facility] Comment on above: Order Comment: Speci men Type: BLOOD SPECIMENOrdering Facility: [facility] Address: [address] [place] [address] Performed By: #### 5 7021-8 ####[facility]YA [id number] [place] [address] [place] Eosinophils (Bld) [#/Vol] 0.15 10*3/uL Normal <0.46 [facility] Comment on above: Order Comment: Speci men Type: BLOOD SPECIMENOrdering Facility: [facility] Address: [address] [place] [address] Performed By: #### 5 7021-8 ####[facility] HOSPITALLIA [id number] [place] [address] [place] Eosinophils/100 WBC (Bld) 2.0 % Normal [facility] Comment on above: Order Comment: Speci men Type: BLOOD SPECIMENOrdering Facility: [facility] Address: [address] [place] [address] Performed By: #### 5 7021-8 ####[facility] RENEJOHNATHON [id number] [place] [address] [place] Erythrocyte distribution width (RBC) [Ratio] 13.6 % Normal 11.5-15.0 [facility] Comment on above: Order Comment: Speci men Type: BLOOD SPECIMENOrdering Facility: [facility] Address: [address] [place] [address] Performed By: #### 5 7021-8 ####[facility] RENEBELLONANCLIAmalia [id number] [place] [address] [place] Hematocrit (Bld) [Volume fraction] 33.4 % Low 36.0-46.0 [facility] Comment on above: Order Comment: Speci men Type: BLOOD SPECIMENOrdering Facility: [facility] Address: [address] [place] [address] Performed By: #### 5 7021-8 ####[facility] [id number] [place] [address] [place] Hemoglobin (Bld) [Mass/Vol] 11.1 g/dL Low 11.5-15.5 [facility] Comment on above: Order Comment: Speci men Type: BLOOD SPECIMENOrdering Facility: [facility] Address: [address] [place] [address] Performed By: #### 5 7021-8 ####[facility] [id number] [place] [address] [place] Immature granulocytes (Bld) [#/Vol] 10*3/uL Normal <0.10 [facility] Comment on above: Order Comment: Speci men Type: BLOOD SPECIMENOrdering Facility: [facility] Address: [address] [place] [address] Performed By: #### 5 7021-8 ####[facility] HE[facility] SERVICESWNCLIA [id number] [place] [address] [place] Immature granulocytes/100 WBC (Bld) 0.1 % Normal [facility] Comment on above: Order Comment: Speci men Type: BLOOD SPECIMENOrdering Facility: [facility] Address: [address] [place] [address] Performed By: #### 5 7021-8 ####[facility] HOSPITALLI [id number] [place] [address] [place] Lymphocytes (Bld) [#/Vol] 1.03 10*3/uL Normal 1.00-4.00 [facility] Comment on above: Order Comment: Speci men Type: BLOOD SPECIMENOrdering Facility: [facility] Address: [address] [place] [address] Performed By: #### 5 7021-8 ####[facility] [id number] [place] [address] [place] Lymphocytes/100 WBC (Bld) 13.9 % Normal [facility] Comment on above: Order Comment: Speci men Type: BLOOD SPECIMENOrdering Facility: [facility] Address: [address] [place] [address] Performed By: #### 5 7021-8 ####[facility] [id number] [place] [address] [place] MCH (RBC) [Entitic mass] 30.5 pg Normal 26.0-34.0 [facility] Comment on above: Order Comment: Speci men Type: BLOOD SPECIMENOrdering Facility: [facility] Address: [address] [place] [address] Performed By: #### 5 7021-8 ####[facility] [id number] [place] [address] [place] MCHC (RBC) [Mass/Vol] 33.2 g/dL Normal 30.5-36.0 [facility] Comment on above: Order Comment: Speci men Type: BLOOD SPECIMENOrdering Facility: [facility] Address: [address] [place] [address] Performed By: #### 5 7021-8 ####[facility] [id number] [place] [address] [place] MCV (RBC) [Entitic vol] 91.8 fL Normal 80.0-100.0 [facility] Comment on above: Order Comment: Speci men Type: BLOOD SPECIMENOrdering Facility: [facility] Address: [address] [place] [address] Performed By: #### 5 7021-8 ####[facility] [id number] [place] [address] [place] Monocytes (Bld) [#/Vol] 0.83 10*3/uL Normal <0.87 [facility] Comment on above: Order Comment: Speci men Type: BLOOD SPECIMENOrdering Facility: [facility] Address: [address] [place] [address] Performed By: #### 5 7021-8 ####[facility] [id number] [place] [address] [place] Monocytes/100 WBC (Bld) 11.2 % Normal [facility] Comment on above: Order Comment: Speci men Type: BLOOD SPECIMENOrdering Facility: [facility] Address: [address] [place] [address] Performed By: #### 5 7021-8 ####[facility] [id number] [place] [address] [place] Neutrophils (Bld) [#/Vol] 5.34 10*3/uL Normal 1.45-7.50 [facility] Comment on above: Order Comment: Speci men Type: BLOOD SPECIMENOrdering Facility: [facility] Address: [address] [place] [address] Performed By: #### 5 7021-8 ####[facility] RENEJOHNATHON [id number] [place] [address] [place] Neutrophils/100 WBC (Bld) 72.4 % Normal [facility] Comment on above: Order Comment: Speci men Type: BLOOD SPECIMENOrdering Facility: [facility] Address: [address] [place] [address] Performed By: #### 5 7021-8 ####[facility] [id number] [place] [address] [place] Nucleated RBC (Bld) [#/Vol] 10*3/uL Normal <0.01 [facility] Comment on above: Order Comment: Speci men Type: BLOOD SPECIMENOrdering Facility: [facility] Address: [address] [place] [address] Performed By: #### 5 7021-8 ####[facility] EMERGENCYAmalia [id number] [place] [address] [place] Nucleated RBC/100 WBC (Bld) [Ratio] 0.0 /100 WBC Normal [facility] Comment on above: Order Comment: Speci men Type: BLOOD SPECIMENOrdering Facility: [facility] Address: [address] [place] [address] Performed By: #### 5 7021-8 ####[facility] [id number] [place] [address] [place] Platelet mean volume (Bld) [Entitic vol] 9.2 fL Normal 9.0-12.7 [facility] Comment on above: Order Comment: Speci men Type: BLOOD SPECIMENOrdering Facility: [facility] Address: [address] [place] [address] Performed By: #### 5 7021-8 ####[facility] [id number] [place] [address] [place] Platelets (Bld) [#/Vol] 137 10*3/uL Low 150-400 [facility] Comment on above: Order Comment: Speci men Type: BLOOD SPECIMENOrdering Facility: [facility] Address: [address] [place] [address] Performed By: #### 5 7021-8 ####[facility]CL[facility] [id number] [place] [address] [place] RBC (Bld) [#/Vol] 3.64 10*6/uL Low 3.90-5.20 [facility] Comment on above: Order Comment: Speci men Type: BLOOD SPECIMENOrdering Facility: [facility] Address: [address] [place] [address] Performed By: #### 5 7021-8 ####[facility] HOSPITALLIA [id number] [place] [address] [place] WBC (Bld) [#/Vol] 7.39 10*3/uL Normal 3.70-11.00 [facility] Comment on above: Order Comment: Speci men Type: BLOOD SPECIMENOrdering Facility: [facility] Address: [address] [place] [address] Performed By: #### 5 7021-8 ####[facility] [id number] [place] [address] [place] CNOVSPon 10-05-2024 CNOVSP Normal [facility] Comprehensive metabolic 2000 panelon 10-05-2024 Albumin [Mass/Vol] 4.0 g/dL Normal 3.9-4.9 [facility] Comment on above: Order Comment: Speci men Type: BLOOD SPECIMENOrdering Facility: [facility] Address: [address] [place] [address] Performed By: #### 2 4323-8, ####[facility] DENNIS MILLTOWNCLIA [id number] [place] [address] [place] ALP [Catalytic activity/Vol] 91 U/L Normal 34-123 [facility] Comment on above: Order Comment: Speci men Type: BLOOD SPECIMENOrdering Facility: [facility] Address: [address] [place] [address] Performed By: #### 2 432-8, ####[facility] MILLTOWNCLIA [id number] [place] [address] [place] ALT [Catalytic activity/Vol] 13 U/L Normal 7-38 [facility] Comment on above: Order Comment: Speci men Type: BLOOD SPECIMENOrdering Facility: [facility] Address: [address] [place] [address] Performed By: #### 2 432-8, ####[facility] HE[facility] SERVICESWNCLIA [id number] [place] [address] [place] Anion gap [Moles/Vol] 11 mmol/L Normal 8-15 [facility] Comment on above: Order Comment: Speci men Type: BLOOD SPECIMENOrdering Facility: [facility] Address: [address] [place] [address] Performed By: #### 2 4323-8, ####[facility] MILLTOWNCLIA [id number] [place] [address] [place] AST [Catalytic activity/Vol] 15 U/L Normal 13-35 [facility] Comment on above: Order Comment: Speci men Type: BLOOD SPECIMENOrdering Facility: [facility] Address: [address] [place] [address] Performed By: #### 2 4323-8, ####[facility] MILLTOWNCLIA [id number] [place] [address] [place] Bilirubin [Mass/Vol] 0.3 mg/dL Normal 0.2-1.3 [facility] Comment on above: Order Comment: Speci men Type: BLOOD SPECIMENOrdering Facility: [facility] Address: [address] [place] [address] Performed By: #### 2 4323-8, ####[facility] MILLWANAMLIA [id number] [place] [address] [place] Calcium [Mass/Vol] 9.5 mg/dL Normal 8.5-10.2 [facility] Comment on above: Order Comment: Speci men Type: BLOOD SPECIMENOrdering Facility: [facility] Address: [address] [place] [address] Performed By: #### 2 4323-8, ####[facility] [id number] [place] [address] [place] Chloride [Moles/Vol] 98 mmol/L Normal 98-107 [facility] Comment on above: Order Comment: Speci men Type: BLOOD SPECIMENOrdering Facility: [facility] Address: [address] [place] [address] Performed By: #### 2 4323-8, ####[facility] HE[facility] SERVICESWGABBIEA [id number] [place] [address] [place] CO2 [Moles/Vol] 27 mmol/L Normal 22-30 [facility] Comment on above: Order Comment: Speci men Type: BLOOD SPECIMENOrdering Facility: [facility] Address: [address] [place] [address] Performed By: #### 2 4323-8, ####[facility] SERVICESWNCLIA [id number] [place] [address] [place] Creatinine [Mass/Vol] 1.16 mg/dL High 0.58-0.96 [facility] Comment on above: Order Comment: Guera doll Type: BLOOD SPECIMENOrdering Facility: [facility] Address: [address] [place] [address] Performed By: #### 2 4323-8, ####[facility] [id number] [place] [address] [place] eGFRcr SerPlBld CKD-EPI 2020 48 mL/min/1.73m??? Low >=60 [facility] Comment on above: Order Comment: Guera doll Type: BLOOD SPECIMENOrdering Facility: [facility] Address: [address] [place] [address] Result Comment: Judith mated Glomerular Filtration Rate (eGFR) is calculated using the 2020 CKD-EPI creatinine equation. This equation utilizes serum creatinine, sex, and age as parameters. The creatinine assay has traceable calibration to isotope dilution-mass spectrometry. Refer to KDIGO guidelines for clinical interpretation. In patients with unstable renal function, e.g. those with acute kidney injury, the eGFR may not accurately reflect actual GFR. Performed By: #### 2 4323-8, ####[facility] [id number] [place] [address] [place] Glucose [Mass/Vol] 211 mg/dL High 74-99 [facility] Comment on above: Order Comment: Guera doll Type: BLOOD SPECIMENOrdering Facility: [facility] Address: [address] [place] [address] Result Comment: The [place] Diabetes Association (ADA) provides guidance for cutoff values for fasting glucose and random glucose. The ADA defines fasting as no caloric intake for at least 8 hours. Fasting plasma glucose results between 100 to 125 mg/dL indicate increased risk for diabetes (prediabetes).Fasting plasma glucose results greater than or equal to 126 mg/dL meet the criteria for diagnosis of diabetes. In the absence of unequivocal hyperglycemia, results should be confirmed by repeat testing. In a patient with classic symptoms of hyperglycemia or hyperglycemic crisis, random plasma glucose results greater than or equal to 200 mg/dL meet the criteria for diagnosis of diabetes.Reference: Standards of Medical Care in Diabetes 2016, [place] Diabetes Association. Diabetes Care. 2016.39(Suppl 1). Performed By: #### 2 4323-8, ####[facility] DENNIS RENECONNORWNCLIA [id number] [place] [address] [place] Potassium [Moles/Vol] 4.8 mmol/L Normal 3.7-5.1 [facility] Comment on above: Order Comment: Speci men Type: BLOOD SPECIMENOrdering Facility: [facility] Address: [address] [place] [address] Performed By: #### 2 4323-8, ####[facility] [id number] [place] [address] [place] Protein [Mass/Vol] 7.0 g/dL Normal 6.3-8.0 [facility] Comment on above: Order Comment: Speci men Type: BLOOD SPECIMENOrdering Facility: [facility] Address: [address] [place] [address] Performed By: #### 2 4323-8, ####[facility] [id number] [place] [address] [place] Sodium [Moles/Vol] 136 mmol/L Normal 136-144 [facility] Comment on above: Order Comment: Speci men Type: BLOOD SPECIMENOrdering Facility: [facility] Address: [address] [place] [address] Performed By: #### 2 4323-8, ####[facility]OPKANCLIA [id number] [place] [address] [place] Urea nitrogen [Mass/Vol] 22 mg/dL High 7-21 [facility] Comment on above: Order Comment: Speci men Type: BLOOD SPECIMENOrdering Facility: [facility] Address: [address] [place], [place] [address], [place] [address] Performed By: #### 2 4323-8, 82921-8 ####[facility] DENNIS MILLTOWNCLIA [id number] [place] [address] [place] Magnesium SerPl-mCncon 10-05 Magnesium [Mass/Vol] 1.6 mg/dL Low 1.7-2.3 [facility] Comment on above: Order Comment: Speci men Type: BLOOD SPECIMENOrdering Facility: [facility] Address: [address] [place] [id number] Performed By: #### 2 4323-8, 18679-5 ####[facility] DENNIS LÓPEZTOWNCLIA [id number] [place] [address] [place] ABD/PEL W IVCONon 025 CT ABD/PEL W IVCON Normal [facility] CT CHEST W IVCONon 5 CT CHEST W IVCON Normal [facility] CBC W Auto Differential pane l (Bld)on 09-13-2024 Basophils (Bld) [#/Vol] 0.03 10*3/uL [facility] Basophils/100 WBC (Bld) 0.5 % C [facility] Differential cell count method Nom (Bld) Auto [facility] Eosinophils (Bld) [#/Vol] 0.21 10*3/uL [facility] Eosinophils/100 WBC (Bld) 3.6 % [facility] Erythrocyte distribution width (RBC) [Ratio] 14 % 11.5 - 15.0 % [facility] Hematocrit (Bld) [Volume fraction] 32.2 % Low 36.0 - 46.0 % [facility] Hemoglobin (Bld) [Mass/Vol] 10.6 g/dL Low 11.5 - 15.5 g/dL [facility] Immature granulocytes (Bld) [#/Vol] [facility] Immature granulocytes/100 WBC (Bld) 0.2 % [facility] Interpretation and review of laboratory results Abnormal [facility] Lymphocytes (Bld) [#/Vol] 1.18 10*3/uL [facility] Lymphocytes/100 WBC (Bld) 20.1 % [facility] MCH (RBC) [Entitic mass] 30.9 pg 26.0 - 34.0 pg [facility] MCHC (RBC) [Mass/Vol] 32.9 g/dL 30.5 - 36.0 g/dL [facility] MCV (RBC) [Entitic vol] 93.9 fL 80.0 - 100.0 fL [facility] Monocytes (Bld) [#/Vol] 0.51 10*3/uL [facility] Monocytes/100 WBC (Bld) 8.7 % C [facility] Neutrophils (Bld) [#/Vol] 3.94 10*3/uL [facility] Neutrophils/100 WBC (Bld) 66.9 % [facility] Nucleated RBC (Bld) [#/Vol] [facility] Nucleated RBC/100 WBC (Bld) [Ratio] 0 % /100 WBC [facility] Platelet mean volume (Bld) [Entitic vol] 9.7 fL 9.0 - 12.7 fL [facility] Platelets (Bld) [#/Vol] 144 10*3/uL Low [facility] RBC (Bld) [#/Vol] 3.43 10*6/uL Low 3.90 - 5.2 0 m/uL [facility] WBC (Bld) [#/Vol] 5.88 10*3/uL [facility] Basophils (Bld) [#/Vol] 0.03 10*3/uL Normal <0.11 [facility] Comment on above: Order Comment: Speci men Type: BLOOD SPECIMENOrdering Facility: [facility] Address: [address] [place] [address] Performed By: #### 5 7021-8 ####[facility] [id number] [address] [place] Basophils/100 WBC (Bld) 0.5 % Normal C [facility] Comment on above: Order Comment: Speci men Type: BLOOD SPECIMENOrdering Facility: [facility] Address: [address] [place] [address] Performed By: #### 5 7021-8 ####[facility] RENEWNCLIA [id number] [place] [address] [place] Differential cell count method Nom (Bld) Auto Normal [facility] Comment on above: Order Comment: Speci men Type: BLOOD SPECIMENOrdering Facility: [facility] Address: [address] [place] [address] Performed By: #### 5 7021-8 ####[facility] [id number] [place] [address] [place] Eosinophils (Bld) [#/Vol] 0.21 10*3/uL Normal <0.46 [facility] Comment on above: Order Comment: Speci men Type: BLOOD SPECIMENOrdering Facility: [facility] Address: [address] [place] [address] Performed By: #### 5 7021-8 ####[facility] [id number] [place] [address] [place] Eosinophils/100 WBC (Bld) 3.6 % Normal [facility] Comment on above: Order Comment: Speci men Type: BLOOD SPECIMENOrdering Facility: [facility] Address: [address] [place] [address] Performed By: #### 5 7021-8 ####[facility] [id number] [place] [address] [place] Erythrocyte distribution width (RBC) [Ratio] 14.0 % Normal 11.5-15.0 [facility] Comment on above: Order Comment: Speci men Type: BLOOD SPECIMENOrdering Facility: [facility] Address: [address] [place] [address] Performed By: #### 5 7021-8 ####[facility] [id number] [place] [address] [place] Hematocrit (Bld) [Volume fraction] 32.2 % Low 36.0-46.0 [facility] Comment on above: Order Comment: Speci men Type: BLOOD SPECIMENOrdering Facility: [facility] Address: [address] [place] [address] Performed By: #### 5 7021-8 ####[facility] [id number] [place] [address] [place] Hemoglobin (Bld) [Mass/Vol] 10.6 g/dL Low 11.5-15.5 [facility] Comment on above: Order Comment: Speci men Type: BLOOD SPECIMENOrdering Facility: [facility] Address: [address] [place] [address] Performed By: #### 5 7021-8 ####[facility] [id number] [place] [address] [place] Immature granulocytes (Bld) [#/Vol] 10*3/uL Normal <0.10 [facility] Comment on above: Order Comment: Speci men Type: BLOOD SPECIMENOrdering Facility: [facility] Address: [address] [place] [address] Performed By: #### 5 7021-8 ####[facility] [id number] [place] [address] [place] Immature granulocytes/100 WBC (Bld) 0.2 % Normal [facility] Comment on above: Order Comment: Speci men Type: BLOOD SPECIMENOrdering Facility: [facility] Address: [address] [place] [address] Performed By: #### 5 7021-8 ####[facility] [id number] [place] [address] [place] Lymphocytes (Bld) [#/Vol] 1.18 10*3/uL Normal 1.00-4.00 [facility] Comment on above: Order Comment: Speci men Type: BLOOD SPECIMENOrdering Facility: [facility] Address: [address] [place] [address] Performed By: #### 5 7021-8 ####[facility] RENEAdrianneNCLIA [id number] [address] STATES [facility] Lymphocytes/100 WBC (Bld) 20.1 % Normal [facility] Comment on above: Order Comment: Speci men Type: BLOOD SPECIMENOrdering Facility: [facility] Address: [address] [place] [address] Performed By: #### 5 7021-8 ####[facility] RENEBELLONANCLIA [id number] [place] [address] [place] MCH (RBC) [Entitic mass] 30.9 pg Normal 26.0-34.0 [facility] Comment on above: Order Comment: Speci men Type: BLOOD SPECIMENOrdering Facility: [facility] Address: [address] [place] [address] Performed By: #### 5 7021-8 ####[facility]KANCL[facility] [id number] [place] [address] [place] MCHC (RBC) [Mass/Vol] 32.9 g/dL Normal 30.5-36.0 [facility] Comment on above: Order Comment: Speci men Type: BLOOD SPECIMENOrdering Facility: [facility] Address: [address] [place] [address] Performed By: #### 5 7021-8 ####[facility] RENEWNCLIA [id number] [place] [address] [place] MCV (RBC) [Entitic vol] 93.9 fL Normal 80.0-100.0 C [facility] Comment on above: Order Comment: Speci men Type: BLOOD SPECIMENOrdering Facility: [facility] Address: [address] [place] [address] Performed By: #### 5 7021-8 ####[facility] [id number] [place] [address] [place] Monocytes (Bld) [#/Vol] 0.51 10*3/uL Normal <0.87 [facility] Comment on above: Order Comment: Speci men Type: BLOOD SPECIMENOrdering Facility: [facility] Address: [address] [place] [address] Performed By: #### 5 7021-8 ####[facility] RENEWKYLIA [id number] [place] [address] [place] Monocytes/100 WBC (Bld) 8.7 % Normal [facility] Comment on above: Order Comment: Speci men Type: BLOOD SPECIMENOrdering Facility: [facility] Address: [address] [place] [address] Performed By: #### 5 7021-8 ####[facility]PITALLIA [id number] [place] [address] [place] Neutrophils (Bld) [#/Vol] 3.94 10*3/uL Normal 1.45-7.50 [facility] Comment on above: Order Comment: Speci men Type: BLOOD SPECIMENOrdering Facility: [facility] Address: [address] [place] [address] Performed By: #### 5 7021-8 ####[facility]PITALLIA [id number] [place] [address] [place] Neutrophils/100 WBC (Bld) 66.9 % Normal [facility] Comment on above: Order Comment: Speci men Type: BLOOD SPECIMENOrdering Facility: [facility] Address: [address] [place] [address] Performed By: #### 5 7021-8 ####[facility]ITALLIA [id number] [place] [address] [place] Nucleated RBC (Bld) [#/Vol] 10*3/uL Normal <0.01 [facility] Comment on above: Order Comment: Speci men Type: BLOOD SPECIMENOrdering Facility: [facility] Address: [address] [place] [address] Performed By: #### 5 7021-8 ####[facility]ANCL[facility] [id number] [place] [address] [place] Nucleated RBC/100 WBC (Bld) [Ratio] 0.0 /100 WBC Normal [facility] Comment on above: Order Comment: Speci men Type: BLOOD SPECIMENOrdering Facility: [facility] Address: [address] [place] [address] Performed By: #### 5 7021-8 ####[facility]KANCL[facility] [id number] [place] [address] [place] Platelet mean volume (Bld) [Entitic vol] 9.7 fL Normal 9.0-12.7 [facility] Comment on above: Order Comment: Speci men Type: BLOOD SPECIMENOrdering Facility: [facility] Address: [address] [place] [address] Performed By: #### 5 7021-8 ####[facility]KANCL[facility] [id number] [place] [address] [place] Platelets (Bld) [#/Vol] 144 10*3/uL Low 150-400 [facility] Comment on above: Order Comment: Speci men Type: BLOOD SPECIMENOrdering Facility: [facility] Address: [address] [place] [address] Performed By: #### 5 7021-8 ####[facility]OPKANCL[facility] [id number] [place] [address] [place] RBC (Bld) [#/Vol] 3.43 10*6/uL Low 3.90-5.20 [facility] Comment on above: Order Comment: Speci men Type: BLOOD SPECIMENOrdering Facility: [facility] Address: [facility] [place], [place] [address] Performed By: #### 5 7021-8 ####[facility] DENNIS LÓPEZBELLONANCLIAmalia [id number] [place] [address] [place] WBC (Bld) [#/Vol] 5.88 10*3/uL Normal 3.70-11.00 [facility] Comment on above: Order Comment: Speci men Type: BLOOD SPECIMENOrdering Facility: [facility] Address: [address] [place] [address] Performed By: #### 5 7021-8 ####[facility]IO[facility] HOSPITALNCLIA [id number] [address] [place] CNOVSPon 09-13-2024 CNOVSP Normal [facility] Comprehensive metabolic 2000 panelOrdered By: Tatyana Frost on 09-13-2024 Albumin [Mass/Vol] 3.9 g/dL 3.9 - 4.9 g/dL [facility] ALP [Catalytic activity/Vol] 85 U/L 34 - 123 U/L [facility] ALT [Catalytic activity/Vol] 11 U/L 7 - 38 U/L [facility] Anion gap [Moles/Vol] 11 mmol/L 8 - 15 mmol/L [facility] AST [Catalytic activity/Vol] 13 U/L 13 - 35 U/L [facility] Bilirubin [Mass/Vol] 0.3 mg/dL 0.2 - 1 .3 mg/dL [facility] Calcium [Mass/Vol] 9.6 mg/dL 8.5 - 10. 2 mg/dL [facility] Chloride [Moles/Vol] 99 mmol/L 98 - 10 7 mmol/L [facility] CO2 [Moles/Vol] 29 mmol/L 22 - 30 mmol/L [facility] Creatinine [Mass/Vol] 1.24 mg/dL High 0.58 - 0.96 mg/dL [facility] GFR/1.73 sq M.predicted among non-blacks MDRD (S/P/Bld) [Vol rate/Area] 45 mL/min/{1.73_m2} Low - PINF [facility] Comment on above: Estimated Glomerular Filtration Rate (eGFR) is calculated using the 2020 CKD-EPI creatinine equation. This equation utilizes serum creatinine, sex, and age as parameters. The creatinine assay has traceable calibration to isotope dilution-mass spectrometry. Refer to KDIGO guidelines for clinical interpretation. In patients with unstable renal function, e.g. those with acute kidney injury, the eGFR may not accurately reflect actual GFR. Glucose [Mass/Vol] 237 mg/dL High 74 - 99 mg/dL [facility] Comment on above: The [place] Diab[place] Association (ADA) provides guidance for cutoff values for fasting glucose and random glucose. The ADA defines fasting as no caloric intake for at least 8 hours. Fasting plasma glucose results between 100 to 125 mg/dL indicate increased risk for diabetes (prediabetes). Fasting plasma glucose results greater than or equal to 126 mg/dL meet the criteria for diagnosis of diabetes. In the absence of unequivocal hyperglycemia, results should be confirmed by repeat testing. In a patient with classic symptoms of hyperglycemia or hyperglycemic crisis, random plasma glucose results greater than or equal to 200 mg/dL meet the criteria for diagnosis of diabetes. Reference: Standards of Medical Care in Diabetes 2016, [place] Diabetes Association. Diabetes Care. 2016.39(Suppl 1). Potassium [Moles/Vol] 4.4 mmol/L 3.7 - 5.1 mmol/L [facility] Protein [Mass/Vol] 7.1 g/dL 6.3 - 8.0 g/dL [facility] Sodium [Moles/Vol] 139 mmol/L 136 - 144 mmol/L [facility] Urea nitrogen [Mass/Vol] 26 mg/dL High 7 - 21 mg/dL [facility] Comprehensive metabolic 2000 panelon 09-13-2024 Albumin [Mass/Vol] 3.9 g/dL Normal 3.9-4.9 [facility] Comment on above: Order Comment: Speci men Type: BLOOD SPECIMENOrdering Facility: [facility] Address: [facility] [place] [id number] Performed By: #### 2 4323-8, 24008-9 ####[facility] DENNIS [facility] HOSPITALDAQUAN [id number] [place] [address] [place] ALP [Catalytic activity/Vol] 85 U/L Normal 34-123 [facility] Comment on above: Order Comment: Speci men Type: BLOOD SPECIMENOrdering Facility: [facility] Address: [address] [place] [address] Performed By: #### 2 4323-8, ####[facility] RENEWNCLIA [id number] [place] [address] [place] ALT [Catalytic activity/Vol] 11 U/L Normal 7-38 [facility] Comment on above: Order Comment: Speci men Type: BLOOD SPECIMENOrdering Facility: [facility] Address: [address] [place] [address] Performed By: #### 2 4323-8, ####[facility]OPKANCLIA [id number] [place] [address] [place] Anion gap [Moles/Vol] 11 mmol/L Normal 8-15 [facility] Comment on above: Order Comment: Speci men Type: BLOOD SPECIMENOrdering Facility: [facility] Address: [address] [place] [address] Performed By: #### 2 4323-8, ####[facility]OPKANCLIA [id number] [place] [address] [place] AST [Catalytic activity/Vol] 13 U/L Normal 13-35 [facility] Comment on above: Order Comment: Speci men Type: BLOOD SPECIMENOrdering Facility: [facility] Address: [address] [place] [address] Performed By: #### 2 4323-8, ####[facility]OPKANCL[facility] [id number] [place] [address] [place] Bilirubin [Mass/Vol] 0.3 mg/dL Normal 0.2-1.3 [facility] Comment on above: Order Comment: Speci men Type: BLOOD SPECIMENOrdering Facility: [facility] Address: [address] [place], [place] [address] Performed By: #### 2 4323-8, 71111-7 ####[facility] DENNIS VINCEANAMLIA [id number] [place] [address] [place] Calcium [Mass/Vol] 9.6 mg/dL Normal 8.5-10.2 [facility] Comment on above: Order Comment: Speci men Type: BLOOD SPECIMENOrdering Facility: [facility] Address: [address] [place] [address] Performed By: #### 2 4323-8, ####[facility] RENEYAMILET [id number] [place] [address] [place] Chloride [Moles/Vol] 99 mmol/L Normal 98-107 [facility] Comment on above: Order Comment: Speci men Type: BLOOD SPECIMENOrdering Facility: [facility] Address: [address] [place] [address] Performed By: #### 2 4323-8, ####[facility] RENEBELLONADAQUAN [id number] [place] [address] [place] CO2 [Moles/Vol] 29 mmol/L Normal 22-30 [facility] Comment on above: Order Comment: Speci men Type: BLOOD SPECIMENOrdering Facility: [facility] Address: [address] [place] [address] Performed By: #### 2 4323-8, ####[facility] RENEWANAMLIA [id number] [place] [address] [place] Creatinine [Mass/Vol] 1.24 mg/dL High 0.58-0.96 [facility] Comment on above: Order Comment: Speci men Type: BLOOD SPECIMENOrdering Facility: [facility] Address: [address] [place] [address] Performed By: #### 2 4323-8, ####[facility]ERTOWNCLIA [id number] [place] [address] [place] eGFRcr SerPlBld CKD-EPI 2020 45 mL/min/1.73m??? Low >=60 [facility] Comment on above: Order Comment: Guera doll Type: BLOOD SPECIMENOrdering Facility: [facility] Address: [address] [place] [address] Result Comment: Judith mated Glomerular Filtration Rate (eGFR) is calculated using the 2020 CKD-EPI creatinine equation. This equation utilizes serum creatinine, sex, and age as parameters. The creatinine assay has traceable calibration to isotope dilution-mass spectrometry. Refer to KDIGO guidelines for clinical interpretation. In patients with unstable renal function, e.g. those with acute kidney injury, the eGFR may not accurately reflect actual GFR. Performed By: #### 2 4323-8, 61275-2 ####[facility]OPKANCL[facility] [id number] [place] [address] [place] Glucose [Mass/Vol] 237 mg/dL High 74-99 [facility] Comment on above: Order Comment: Guera doll Type: BLOOD SPECIMENOrdering Facility: [facility] Address: [address] [place] [address] Result Comment: The [place] Diabetes Association (ADA) provides guidance for cutoff values for fasting glucose and random glucose. The ADA defines fasting as no caloric intake for at least 8 hours. Fasting plasma glucose results between 100 to 125 mg/dL indicate increased risk for diabetes (prediabetes).Fasting plasma glucose results greater than or equal to 126 mg/dL meet the criteria for diagnosis of diabetes. In the absence of unequivocal hyperglycemia, results should be confirmed by repeat testing. In a patient with classic symptoms of hyperglycemia or hyperglycemic crisis, random plasma glucose results greater than or equal to 200 mg/dL meet the criteria for diagnosis of diabetes.Reference: Standards of Medical Care in Diabetes 2016, [place] [employer]. Diabetes Care. 2016.39(Suppl 1). Performed By: #### 2 4323-8, 96352-1 ####[facility] SERVICESWNCLIA [id number] [place] [address] [place] Potassium [Moles/Vol] 4.4 mmol/L Normal 3.7-5.1 [facility] Comment on above: Order Comment: Speci men Type: BLOOD SPECIMENOrdering Facility: [facility] Address: [address] [place] [address] Performed By: #### 2 4323-8, ####[facility] MILLTOWNCLIA [id number] [place] [address] [place] Protein [Mass/Vol] 7.1 g/dL Normal 6.3-8.0 [facility] Comment on above: Order Comment: Speci men Type: BLOOD SPECIMENOrdering Facility: [facility] Address: [address] [place] [address] Performed By: #### 2 4323-8, ####[facility] MILLCONNORWANAMLIA [id number] [place] [address] [place] Sodium [Moles/Vol] 139 mmol/L Normal 136-144 [facility] Comment on above: Order Comment: Speci men Type: BLOOD SPECIMENOrdering Facility: [facility] Address: [address] [place] [address] Performed By: #### 2 4323-8, ####[facility] MILLCONNORWNCLIA [id number] [place] [address] [place] Urea nitrogen [Mass/Vol] 26 mg/dL High 7-21 [facility] Comment on above: Order Comment: Speci men Type: BLOOD SPECIMENOrdering Facility: [facility] Address: [address] [place] [address] Performed By: #### 2 4323-8, 59752-3 ####[facility] MILLTOWNCLIA [id number] [place] [address] [place] MAGNESIUMon 09-13-2024 Magnesium [Mass/Vol] 1.6 mg/dL Low 1.7 - 2 .3 mg/dL [facility] Magnesium SerPl-mCncon 09-13 Magnesium [Mass/Vol] 1.6 mg/dL Low 1.7-2.3 [facility] Comment on above: Order Comment: Speci men Type: BLOOD SPECIMENOrdering Facility: [facility] Address: [address] [place] [address] [place] [address] Performed By: #### 2 4323-8, 99713-0 ####[facility] [id number] [place] [address] [place] No Panel InformationOrdered By: Tatyana Frost on 09-13-2024 Interpretation and review of laboratory results Abnormal [facility] UA DIP, URINE (POC)on 2024 BILIRUBIN UA (POCT) Negative Negative [facility] CLARITY UA (POCT) Clear [facility] COLOR UA (POCT) Yellow [facility] GLUCOSE UA (POCT) Negative Negative mg/dL [facility] Hemoglobin Ql (U) Negative Negative [facility] Interpretation and review of laboratory results Abnormal [facility] KETONE UA (POCT) Negative Negative mg/dL [facility] LEUKOCYTES UA (POCT) Small Abnormal Negative [facility] NITRITE UA (POCT) Negative Negative [facility] PH UA (POCT) 6 4.5 - 8.0 [facility] Protein Ql (U) Negative Negative mg/dL [facility] SPECIFIC GRAVITY UA (POCT) 1.01 1.005 - 1.030 [facility] UROBILINOGEN UA (POCT) 0.2 Areli l E.U./dL [facility] Location:[facility], [address] , [place], [place], [address] [place] [address] POINT OF CARE [facility] CBC W Auto Differential pane l (Bld)on 08-23-2024 Basophils (Bld) [#/Vol] 0.04 10*3/uL [facility] Basophils/100 WBC (Bld) 0.7 % C [facility] Differential cell count method Nom (Bld) Auto [facility] Eosinophils (Bld) [#/Vol] 0.18 10*3/uL [facility] Eosinophils/100 WBC (Bld) 3.1 % [facility] Erythrocyte distribution width (RBC) [Ratio] 13.9 % 11.5 - 15.0 % [facility] Hematocrit (Bld) [Volume fraction] 29.2 % Low 36.0 - 46.0 % [facility] Hemoglobin (Bld) [Mass/Vol] 9.8 g/dL Low 11.5 - 15.5 g/dL [facility] Immature granulocytes (Bld) [#/Vol] [facility] Immature granulocytes/100 WBC (Bld) 0.3 % [facility] Interpretation and review of laboratory results Abnormal [facility] Lymphocytes (Bld) [#/Vol] 1.01 10*3/uL [facility] Lymphocytes/100 WBC (Bld) 17.1 % [facility] MCH (RBC) [Entitic mass] 31.3 pg 26.0 - 34.0 pg [facility] MCHC (RBC) [Mass/Vol] 33.6 g/dL 30.5 - 36.0 g/dL [facility] MCV (RBC) [Entitic vol] 93.3 fL 80.0 - 100.0 fL [facility] Monocytes (Bld) [#/Vol] 0.64 10*3/uL [facility] Monocytes/100 WBC (Bld) 10.8 % C [facility] Neutrophils (Bld) [#/Vol] 4.01 10*3/uL [facility] Neutrophils/100 WBC (Bld) 68 % [facility] Nucleated RBC (Bld) [#/Vol] [facility] Nucleated RBC/100 WBC (Bld) [Ratio] 0 % /100 WBC [facility] Platelet mean volume (Bld) [Entitic vol] 8.8 fL Low 9.0 - 12.7 fL [facility] Platelets (Bld) [#/Vol] 104 10*3/uL Low [facility] RBC (Bld) [#/Vol] 3.13 10*6/uL Low 3.90 - 5.2 0 m/uL [facility] WBC (Bld) [#/Vol] 5.9 10*3/uL [facility] Basophils (Bld) [#/Vol] 0.04 10*3/uL Normal <0.11 [facility] Comment on above: Order Comment: Speci men Type: BLOOD SPECIMENOrdering Facility: [facility] Address: [address] [place] [address] Performed By: #### 5 7021-8 ####[facility] BE[facility]AVIORAL HEALTH SERVICESWNCLIA [id number] [place] [address] [place] Basophils/100 WBC (Bld) 0.7 % Normal [facility] Comment on above: Order Comment: Speci men Type: BLOOD SPECIMENOrdering Facility: [facility] Address: [address] [place] [address] Performed By: #### 5 7021-8 ####[facility]PITALLIA [id number] [place] [address] [place] Differential cell count method Nom (Bld) Auto Normal [facility] Comment on above: Order Comment: Speci men Type: BLOOD SPECIMENOrdering Facility: [facility] Address: [address] [place] [address] Performed By: #### 5 7021-8 ####[facility] [id number] [place] [address] [place] Eosinophils (Bld) [#/Vol] 0.18 10*3/uL Normal <0.46 [facility] Comment on above: Order Comment: Speci men Type: BLOOD SPECIMENOrdering Facility: [facility] Address: [address] [place] [address] Performed By: #### 5 7021-8 ####[facility]ITALLIA [id number] [place] [address] [place] Eosinophils/100 WBC (Bld) 3.1 % Normal [facility] Comment on above: Order Comment: Speci men Type: BLOOD SPECIMENOrdering Facility: [facility] Address: [address] [place] [address] Performed By: #### 5 7021-8 ####[facility] [id number] [place] [address] [place] Erythrocyte distribution width (RBC) [Ratio] 13.9 % Normal 11.5-15.0 [facility] Comment on above: Order Comment: Speci men Type: BLOOD SPECIMENOrdering Facility: [facility] Address: [address] [place] [address] Performed By: #### 5 7021-8 ####[facility] [id number] [place] [address] [place] Hematocrit (Bld) [Volume fraction] 29.2 % Low 36.0-46.0 [facility] Comment on above: Order Comment: Speci men Type: BLOOD SPECIMENOrdering Facility: [facility] Address: [address] [place] [address] Performed By: #### 5 7021-8 ####[facility] [id number] [place] [address] [place] Hemoglobin (Bld) [Mass/Vol] 9.8 g/dL Low 11.5-15.5 [facility] Comment on above: Order Comment: Speci men Type: BLOOD SPECIMENOrdering Facility: [facility] Address: [address] [place] [address] Performed By: #### 5 7021-8 ####[facility] [id number] [place] [address] [place] Immature granulocytes (Bld) [#/Vol] 10*3/uL Normal <0.10 [facility] Comment on above: Order Comment: Speci men Type: BLOOD SPECIMENOrdering Facility: [facility] Address: [address] [place] [address] Performed By: #### 5 7021-8 ####[facility] [id number] [place] [address] [place] Immature granulocytes/100 WBC (Bld) 0.3 % Normal [facility] Comment on above: Order Comment: Speci men Type: BLOOD SPECIMENOrdering Facility: [facility] Address: [address] [place] [address] Performed By: #### 5 7021-8 ####[facility] [id number] [place] [address] [place] Lymphocytes (Bld) [#/Vol] 1.01 10*3/uL Normal 1.00-4.00 [facility] Comment on above: Order Comment: Speci men Type: BLOOD SPECIMENOrdering Facility: [facility] Address: [address] [place] [address] Performed By: #### 5 7021-8 ####[facility] [id number] [place] [address] [place] Lymphocytes/100 WBC (Bld) 17.1 % Normal [facility] Comment on above: Order Comment: Speci men Type: BLOOD SPECIMENOrdering Facility: [facility] Address: [address] [place] [address] Performed By: #### 5 7021-8 ####[facility]KANCLI [id number] [place] [address] [place] MCH (RBC) [Entitic mass] 31.3 pg Normal 26.0-34.0 [facility] Comment on above: Order Comment: Speci men Type: BLOOD SPECIMENOrdering Facility: [facility] Address: [address] [place] [address] Performed By: #### 5 7021-8 ####[facility] [id number] [place] [address] [place] MCHC (RBC) [Mass/Vol] 33.6 g/dL Normal 30.5-36.0 [facility] Comment on above: Order Comment: Speci men Type: BLOOD SPECIMENOrdering Facility: [facility] Address: [address] [place] [address] Performed By: #### 5 7021-8 ####[facility] RENEJOHNATHON [id number] [place] [address] [place] MCV (RBC) [Entitic vol] 93.3 fL Normal 80.0-100.0 C [facility] Comment on above: Order Comment: Speci men Type: BLOOD SPECIMENOrdering Facility: [facility] Address: [address] [place] [address] Performed By: #### 5 7021-8 ####[facility]AANAMGUNN[facility] [id number] [place] [address] [place] Monocytes (Bld) [#/Vol] 0.64 10*3/uL Normal <0.87 [facility] Comment on above: Order Comment: Speci men Type: BLOOD SPECIMENOrdering Facility: [facility] Address: [address] [place] [address] Performed By: #### 5 7021-8 ####[facility] [id number] [place] [address] [place] Monocytes/100 WBC (Bld) 10.8 % Normal C [facility] Comment on above: Order Comment: Speci men Type: BLOOD SPECIMENOrdering Facility: [facility] Address: [address] [place] [address] Performed By: #### 5 7021-8 ####[facility] [id number] [place] [address] [place] Neutrophils (Bld) [#/Vol] 4.01 10*3/uL Normal 1.45-7.50 [facility] Comment on above: Order Comment: Speci men Type: BLOOD SPECIMENOrdering Facility: [facility] Address: [address] [place] [address] Performed By: #### 5 7021-8 ####[facility]IOR[facility] HEALTH SERVICESWANAMLIA [id number] [place] [address] [place] Neutrophils/100 WBC (Bld) 68.0 % Normal [facility] Comment on above: Order Comment: Speci men Type: BLOOD SPECIMENOrdering Facility: [facility] Address: [address] [place] [address] Performed By: #### 5 7021-8 ####[facility]ITALLIA [id number] [place] [address] [place] Nucleated RBC (Bld) [#/Vol] 10*3/uL Normal <0.01 [facility] Comment on above: Order Comment: Speci men Type: BLOOD SPECIMENOrdering Facility: [facility] Address: [address] [place] [address] Performed By: #### 5 7021-8 ####[facility] [id number] [place] [address] [place] Nucleated RBC/100 WBC (Bld) [Ratio] 0.0 /100 WBC Normal [facility] Comment on above: Order Comment: Speci men Type: BLOOD SPECIMENOrdering Facility: [facility] Address: [address] [place] [address] Performed By: #### 5 7021-8 ####[facility] [id number] [place] [address] [place] Platelet mean volume (Bld) [Entitic vol] 8.8 fL Low 9.0-12.7 [facility] Comment on above: Order Comment: Speci men Type: BLOOD SPECIMENOrdering Facility: [facility] Address: [address] [place] [address] Performed By: #### 5 7021-8 ####[facility] [id number] [place] [address] [place] Platelets (Bld) [#/Vol] 104 10*3/uL Low 150-400 [facility] Comment on above: Order Comment: Speci men Type: BLOOD SPECIMENOrdering Facility: [facility] Address: [address] [place] [address] Performed By: #### 5 7021-8 ####[facility] APOPKANCIRISA [id number] [place] [address] [place] RBC (Bld) [#/Vol] 3.13 10*6/uL Low 3.90-5.20 [facility] Comment on above: Order Comment: Speci men Type: BLOOD SPECIMENOrdering Facility: [facility] Address: [address] [place] [address] Performed By: #### 5 7021-8 ####[facility] [id number] [place] [address] [place] WBC (Bld) [#/Vol] 5.90 10*3/uL Normal 3.70-11.00 [facility] Comment on above: Order Comment: Speci men Type: BLOOD SPECIMENOrdering Facility: [facility] Address: [address] [place] [address] Performed By: #### 5 7021-8 ####[facility]OPKANCL[facility] [id number] [place] [address] [place] CNOVSPon 08-23-2024 CNOVSP Normal [facility] Cancer Ag 125 Qnon Interpretation and review of laboratory results Abnormal [facility] Cancer Ag125 SerPl-aCncon Cancer Ag 125 Qn 42 [arb'U]/mL High <39 [facility] Comment on above: Order Comment: Speci men Type: BLOOD SPECIMENOrdering Facility: [facility] Address: [address] [place] [address] Result Comment: CA 1 25 test methodology used is the Electrochemiluminescence Immunoassay by [facility]. Results obtained with different methods or kits cannot be used interchangeably.The reference interval is based on the 95th percentile of 240 apparently healthy premenopausal and postmenopausal women. At a cutoff value of 65 U/mL, the test sensitivity to distinguish ovarian carcinoma (FIGO stage I to IV) versus benign gynecological disease is 79%, with a specificity of 82%.Reference: Cancer Antigen 125 (CA 125 II) [package insert V 1.0 Far[place]ese]. [facility], [place], [place] (November 2014) Performed By: #### 2 4323-8, 55048-3 ####[facility] [id number] [address]#### 21657-6 ####[facility] LABCLIA [id number] [address] Comprehensive metabolic 2000 panelOrdered By: Tatyana Frost on 08-23-2024 Albumin [Mass/Vol] 3.7 g/dL Low 3.9 - 4.9 g/dL [facility] ALP [Catalytic activity/Vol] 78 U/L 34 - 123 U/L [facility] ALT [Catalytic activity/Vol] 11 U/L 7 - 38 U/L [facility] Anion gap [Moles/Vol] 12 mmol/L 8 - 15 mmol/L [facility] AST [Catalytic activity/Vol] 13 U/L 13 - 35 U/L [facility] Bilirubin [Mass/Vol] 0.3 mg/dL 0.2 - 1 .3 mg/dL [facility] Calcium [Mass/Vol] 9.5 mg/dL 8.5 - 10. 2 mg/dL [facility] Chloride [Moles/Vol] 101 mmol/L 98 - 10 7 mmol/L [facility] CO2 [Moles/Vol] 25 mmol/L 22 - 30 mmol/L [facility] Creatinine [Mass/Vol] 1.02 mg/dL High 0.58 - 0.96 mg/dL [facility] GFR/1.73 sq M.predicted among non-blacks MDRD (S/P/Bld) [Vol rate/Area] 56 mL/min/{1.73_m2} Low - PINF [facility] Comment on above: Estimated Glomerular Filtration Rate (eGFR) is calculated using the 2020 CKD-EPI creatinine equation. This equation utilizes serum creatinine, sex, and age as parameters. The creatinine assay has traceable calibration to isotope dilution-mass spectrometry. Refer to KDIGO guidelines for clinical interpretation. In patients with unstable renal function, e.g. those with acute kidney injury, the eGFR may not accurately reflect actual GFR. Glucose [Mass/Vol] 172 mg/dL High 74 - 99 mg/dL [facility] Comment on above: The [place] Diabete s Association (ADA) provides guidance for cutoff values for fasting glucose and random glucose. The ADA defines fasting as no caloric intake for at least 8 hours. Fasting plasma glucose results between 100 to 125 mg/dL indicate increased risk for diabetes (prediabetes). Fasting plasma glucose results greater than or equal to 126 mg/dL meet the criteria for diagnosis of diabetes. In the absence of unequivocal hyperglycemia, results should be confirmed by repeat testing. In a patient with classic symptoms of hyperglycemia or hyperglycemic crisis, random plasma glucose results greater than or equal to 200 mg/dL meet the criteria for diagnosis of diabetes. Reference: Standards of Medical Care in Diabetes 2016, [place] [employer] Association. Diabetes Care. 2016.39(Suppl 1). Potassium [Moles/Vol] 4.5 mmol/L 3.7 - 5.1 mmol/L [facility] Protein [Mass/Vol] 6.6 g/dL 6.3 - 8.0 g/dL [facility] Sodium [Moles/Vol] 138 mmol/L 136 - 144 mmol/L [facility] Urea nitrogen [Mass/Vol] 20 mg/dL 7 - 21 mg/dL [facility] Comprehensive metabolic 2000 panelon 08-23-2024 Albumin [Mass/Vol] 3.7 g/dL Low 3.9-4.9 [facility] Comment on above: Order Comment: Speci men Type: BLOOD SPECIMENOrdering Facility: [facility] Address: [facility] [place] [address] Performed By: #### 2 4323-8, 14982-4 ####[facility] DENNISOKLAHOMA SPINE [facility] – OKLAHOMA CITYAARON [id number] [place] [address] [place]#### 45473-4 ####[facility] LABCLIA [id number] [facility] [address] [place] [address] [place] ALP [Catalytic activity/Vol] 78 U/L Normal 34-123 [facility] Comment on above: Order Comment: Speci men Type: BLOOD SPECIMENOrdering Facility: [facility] Address: [address] [place] [id number] Performed By: #### 2 4322-8, ####[facility] MILLTOWNCLIA [id number] [place] [address] [place]#### 66685-7 ####[facility] LABCLIA [id number] [facility] [place] [id number] [place] ALT [Catalytic activity/Vol] 11 U/L Normal 7-38 [facility] Comment on above: Order Comment: Speci men Type: BLOOD SPECIMENOrdering Facility: [facility] Address: [address] [place] [address] Performed By: #### 2 4322-09, ####[facility] MILLTOWNCLIA [id number] [place] [address] [place]#### 50764-8 ####[facility] LABCLIA [id number] [facility] [place] [id number] [place] Anion gap [Moles/Vol] 12 mmol/L Normal 8-15 [facility] Comment on above: Order Comment: Speci men Type: BLOOD SPECIMENOrdering Facility: [facility] Address: [address] [place] [id number] Performed By: #### 2 8, ####[facility] MILLTOWNCLIA [id number] [place] [address] [place]#### 22014-8 ####[facility] LABCLIA [id number] [facility]D [address] [address] [place] AST [Catalytic activity/Vol] 13 U/L Normal 13-35 [facility] Comment on above: Order Comment: Speci men Type: BLOOD SPECIMENOrdering Facility: [facility] Address: [address] [place] [address] Performed By: #### 2 432-8, ####[facility] MILLTOWNCLIA [id number] [place] [address] [place]#### 74620-9 ####[facility] LABCLIA [id number] [place] [address] [place] Bilirubin [Mass/Vol] 0.3 mg/dL Normal 0.2-1.3 [facility] Comment on above: Order Comment: Speci men Type: BLOOD SPECIMENOrdering Facility: [facility] Address: [address] [place] [address] Performed By: #### 2 4322-09, ####[facility] MILLWNCLIA [id number] [place] [address] [place]#### 02335-0 ####[facility] LABCLIA [id number] [place] [address] [place] Calcium [Mass/Vol] 9.5 mg/dL Normal 8.5-10.2 [facility] Comment on above: Order Comment: Speci men Type: BLOOD SPECIMENOrdering Facility: [facility] Address: [address] [place], [place] [address] Performed By: #### 2 4322-09, ####[facility] MILLTOWNCLIA [id number] [place] [address] [place]#### 13898-6 ####[facility] LABCLIA [id number] [place] [address] [place] Chloride [Moles/Vol] 101 mmol/L Normal 98-107 [facility] Comment on above: Order Comment: Speci men Type: BLOOD SPECIMENOrdering Facility: [facility] Address: [address] [place] [address] Performed By: #### 2 432-8, ####[facility] MILLTOWNCLIA [id number] [place] [address] [place]#### 03219-0 ####[facility] LABCLIA [id number] [place] [address] [place] CO2 [Moles/Vol] 25 mmol/L Normal 22-30 [facility] Comment on above: Order Comment: Speci men Type: BLOOD SPECIMENOrdering Facility: [facility] Address: [address] [place] [address] Performed By: #### 2 4322-09, ####[facility] MILLWNCLIA [id number] [place] [address] [place]#### 02819-1 ####[facility] LABCLIA [id number] [place] [address] [place] Creatinine [Mass/Vol] 1.02 mg/dL High 0.58-0.96 [facility] Comment on above: Order Comment: Speci men Type: BLOOD SPECIMENOrdering Facility: [facility] Address: [address] [place] [address] Performed By: #### 2 4323-8, ####[facility] MILLWNCLIA [id number] [place] [address] [place]#### 42612-9 ####[facility] LABCLIA [id number] [place] [address] [place] Creatinine and Glomerular filtration rate.predicted panel (S/P/Bld) 56 mL/min/1.73m??? Low >=60 [facility] Comment on above: Order Comment: Guera doll Type: BLOOD SPECIMENOrdering Facility: [facility] Address: [address] [place] [address] Result Comment: Judith mated Glomerular Filtration Rate (eGFR) is calculated using the 2020 CKD-EPI creatinine equation. This equation utilizes serum creatinine, sex, and age as parameters. The creatinine assay has traceable calibration to isotope dilution-mass spectrometry. Refer to KDIGO guidelines for clinical interpretation. In patients with unstable renal function, e.g. those with acute kidney injury, the eGFR may not accurately reflect actual GFR. Performed By: #### 2 4323-8, 32030-3 ####[facility] [id number] [address] [place]#### 63637-6 ####[facility] LABCLIA [id number] [place] [address] [place] Glucose [Mass/Vol] 172 mg/dL High 74-99 [facility] Comment on above: Order Comment: Guera doll Type: BLOOD SPECIMENOrdering Facility: [facility] Address: [address] [place] [address] Result Comment: The [place] Diabetes Association (ADA) provides guidance for cutoff values for fasting glucose and random glucose. The ADA defines fasting as no caloric intake for at least 8 hours. Fasting plasma glucose results between 100 to 125 mg/dL indicate increased risk for diabetes (prediabetes).Fasting plasma glucose results greater than or equal to 126 mg/dL meet the criteria for diagnosis of diabetes. In the absence of unequivocal hyperglycemia, results should be confirmed by repeat testing. In a patient with classic symptoms of hyperglycemia or hyperglycemic crisis, random plasma glucose results greater than or equal to 200 mg/dL meet the criteria for diagnosis of diabetes.Reference: Standards of Medical Care in Diabetes 2016, [place] [employer]. Diabetes Care. 2016.39(Suppl 1). Performed By: #### 2 4323-8, 72186-7 ####[facility] [id number] [place] [address] [place]#### 11020-0 ####[facility] LABCLIA [id number] [place] [address] [place] Potassium [Moles/Vol] 4.5 mmol/L Normal 3.7-5.1 [facility] [facility] Comment on above: Order Comment: Speci men Type: BLOOD SPECIMENOrdering Facility: [facility] Address: [address] [place] [address] Performed By: #### 2 432-8, ####[facility] MILLBELLONANCLIA [id number] [place] [address] [place]#### 41354-7 ####[facility] LABCLIA [id number] [place] [address] [place] Protein [Mass/Vol] 6.6 g/dL Normal 6.3-8.0 [facility] Comment on above: Order Comment: Speci men Type: BLOOD SPECIMENOrdering Facility: [facility] Address: [address] [place] [address] Performed By: #### 2 4322-8, ####[facility] HE[facility] SERVICESWNCLIA [id number] [place] [address] [place]#### 32006-9 ####[facility] LABCLIA [id number] [place] [address] [place] Sodium [Moles/Vol] 138 mmol/L Normal 136-144 [facility] Comment on above: Order Comment: Speci men Type: BLOOD SPECIMENOrdering Facility: [facility] Address: [address] [place] [address] Performed By: #### 2 4323-8, ####[facility] MILLTOWNCLIA [id number] [place] [address] [place]#### 73920-7 ####[facility] LABCLIA [id number] [place] [address] [place] Urea nitrogen [Mass/Vol] 20 mg/dL Normal 7-21 [facility] Comment on above: Order Comment: Seani men Type: BLOOD SPECIMENOrdering Facility: [facility] Address: [address] [place] [address] Performed By: #### 2 4323-8, 87641-7 ####[facility] [id number] [address] OF [place]#### 78911-1 ####[facility] LABCLIA [id number] [place] [address] [place] HbA1c (Bld)on 08-23-2024 Average glucose Estimated from glycated hemoglobin (Bld) [Mass/Vol] 140 mg/dL Normal [facility] Comment on above: Order Comment: Guera doll Type: BLOOD SPECIMENOrdering Facility: [facility] Address: [address] [place] [address] Result Comment: eAG: (Estimated average glucose) is a calculated value from HgbA1c and is technical service representative of the average blood glucose level in the last 2-3 month period. Performed By: #### 5 5454-3 ####[facility] LABIA [id number] [place] [address] [place] HbA1c (Bld) [Mass fraction] 6.5 % High 4.3-5.6 [facility] Comment on above: Order Comment: Guera doll Type: BLOOD SPECIMENOrdering Facility: [facility] Address: [address] [place] [address] Result Comment: [place] Diabetes Association guidelines indicate that patients with HgbA1c in the range 5.7-6.4% are at increased risk for development of diabetes, and intervention by lifestyle modification may be beneficial. HgbA1c greater or equal to 6.5% is considered diagnostic of diabetes. Performed By: #### 5 5454-3 ####[facility] LABCLIA [id number] [place] [address] [place] Laboratory - Chemistry and C hemistry - challengeon 08-23-2024 Cancer Ag 125 Qn 42 [arb'U]/mL High NINF - 39 U/mL [facility] Comment on above: CA 125 test methodol ogy used is the Electrochemiluminescence Immunoassay by [facility]. Results obtained with different methods or kits cannot be used interchangeably. The reference interval is based on the 95th percentile of 240 apparently healthy premenopausal and postmenopausal women. At a cutoff value of 65 U/mL, the test sensitivity to distinguish ovarian carcinoma (FIGO stage I to IV) versus benign gynecological disease is 79%, with a specificity of 82%. Reference: Cancer Antigen 125 (CA 125 II) [package insert V 1.0 Faroese]. [facility], [place], [place] (November 2014) MAGNESIUMon 08-23-2024 Magnesium [Mass/Vol] 1.4 mg/dL Low 1.7 - 2 .3 mg/dL [facility] Magnesium SerPl-mCncon 08-23 Magnesium [Mass/Vol] 1.4 mg/dL Low 1.7-2.3 [facility] Comment on above: Order Comment: Speci men Type: BLOOD SPECIMENOrdering Facility: [facility] Address: [address] [place] [address] Performed By: #### 2 4323-8, 79919-6 ####[facility] [id number] [place] [id number] [place]#### 74022-3 ####[facility] LABCLIA [id number] [place] [address] [place] No Panel InformationOrdered By: Tatyana Frost on 08-23-2024 Interpretation and review of laboratory results Abnormal [facility] UA DIP, URINE (POC)on 2024 BILIRUBIN UA (POCT) Negative Negative [facility] CLARITY UA (POCT) Slightly Cloudy [facility] COLOR UA (POCT) Yellow [facility] GLUCOSE UA (POCT) Negative Negative mg/dL [facility] Hemoglobin Ql (U) Small Abnormal Negative [facility] Interpretation and review of laboratory results Abnormal [facility] KETONE UA (POCT) Negative Negative mg/dL [facility] LEUKOCYTES UA (POCT) Small Abnormal Negative [facility] NITRITE UA (POCT) Negative Negative [facility] PH UA (POCT) 6.5 4.5 - 8.0 [facility] Protein Ql (U) 100 mg/dL Abnormal Negative [facility] SPECIFIC GRAVITY UA (POCT) 1.01 1.005 - 1.030 [facility] UROBILINOGEN UA (POCT) 0.2 Areli l E.U./dL [facility] Location:[facility], [address] , [place], [address] [facility] POINT OF CARE [facility] CNPNon 08-18-2024 CNPN Normal [facility] CBC W Auto Differential pane l (Bld)on 08-01-2024 Basophils (Bld) [#/Vol] [facility] Basophils/100 WBC (Bld) 0.4 % C [facility] Differential cell count method Nom (Bld) Auto [facility] Eosinophils (Bld) [#/Vol] 0.17 10*3/uL [facility] Eosinophils/100 WBC (Bld) 3.3 % [facility] Erythrocyte distribution width (RBC) [Ratio] 13.9 % 11.5 - 15.0 % [facility] Hematocrit (Bld) [Volume fraction] 30.3 % Low 36.0 - 46.0 % [facility] Hemoglobin (Bld) [Mass/Vol] 10 g/dL Low 11.5 - 15.5 g/dL [facility] Immature granulocytes (Bld) [#/Vol] [facility] Immature granulocytes/100 WBC (Bld) 0.4 % [facility] Interpretation and review of laboratory results Abnormal [facility] Lymphocytes (Bld) [#/Vol] 0.95 10*3/uL Low [facility] Lymphocytes/100 WBC (Bld) 18.2 % [facility] MCH (RBC) [Entitic mass] 31.4 pg 26.0 - 34.0 pg [facility] MCHC (RBC) [Mass/Vol] 33 g/dL 30.5 - 36.0 g/dL [facility] MCV (RBC) [Entitic vol] 95.3 fL 80.0 - 100.0 fL [facility] Monocytes (Bld) [#/Vol] 0.5 10*3/uL [facility] Monocytes/100 WBC (Bld) 9.6 % [facility] Neutrophils (Bld) [#/Vol] 3.56 10*3/uL [facility] Neutrophils/100 WBC (Bld) 68.1 % [facility] Nucleated RBC (Bld) [#/Vol] NINF [facility] Nucleated RBC/100 WBC (Bld) [Ratio] 0 % /100 WBC [facility] Platelet mean volume (Bld) [Entitic vol] 9.4 fL 9.0 - 12.7 fL [facility] Platelets (Bld) [#/Vol] 126 10*3/uL Low [facility] RBC (Bld) [#/Vol] 3.18 10*6/uL Low 3.90 - 5.2 0 m/uL [facility] WBC (Bld) [#/Vol] 5.22 10*3/uL [facility] Basophils (Bld) [#/Vol] 10*3/uL Normal <0.11 [facility] Comment on above: Order Comment: Speci men Type: BLOOD SPECIMENOrdering Facility: [facility] Address: [address] [place] [address] Performed By: #### 5 7021-8 ####[facility] [id number] [address] [place] Basophils/100 WBC (Bld) 0.4 % Normal [facility] Comment on above: Order Comment: Speci men Type: BLOOD SPECIMENOrdering Facility: [facility] Address: [address] [place] [address] Performed By: #### 5 7021-8 ####[facility] [id number] [place] [address] [place] Differential cell count method Nom (Bld) Auto Normal [facility] Comment on above: Order Comment: Speci men Type: BLOOD SPECIMENOrdering Facility: [facility] Address: [address] [place] [address] Performed By: #### 5 7021-8 ####[facility] [id number] [place] [address] [place] Eosinophils (Bld) [#/Vol] 0.17 10*3/uL Normal <0.46 [facility] Comment on above: Order Comment: Speci men Type: BLOOD SPECIMENOrdering Facility: [facility] Address: [address] [place] [address] Performed By: #### 5 7021-8 ####[facility] [id number] [place] [address] [place] Eosinophils/100 WBC (Bld) 3.3 % Normal [facility] Comment on above: Order Comment: Speci men Type: BLOOD SPECIMENOrdering Facility: [facility] Address: [address] [place] [address] Performed By: #### 5 7021-8 ####[facility] [id number] [place] [address] [place] Erythrocyte distribution width (RBC) [Ratio] 13.9 % Normal 11.5-15.0 [facility] Comment on above: Order Comment: Speci men Type: BLOOD SPECIMENOrdering Facility: [facility] Address: [address] [place] [address] Performed By: #### 5 7021-8 ####[facility] [id number] [place] [address] [place] Hematocrit (Bld) [Volume fraction] 30.3 % Low 36.0-46.0 [facility] Comment on above: Order Comment: Speci men Type: BLOOD SPECIMENOrdering Facility: [facility] Address: [address] [place] [address] Performed By: #### 5 7021-8 ####[facility] HE[facility] SERVICESWNCLIA [id number] [place] [address] [place] Hemoglobin (Bld) [Mass/Vol] 10.0 g/dL Low 11.5-15.5 [facility] Comment on above: Order Comment: Speci men Type: BLOOD SPECIMENOrdering Facility: [facility] Address: [address] [place] [address] Performed By: #### 5 7021-8 ####[facility]CL[facility] [id number] [place] [address] [place] Immature granulocytes (Bld) [#/Vol] 10*3/uL Normal <0.10 [facility] Comment on above: Order Comment: Speci men Type: BLOOD SPECIMENOrdering Facility: [facility] Address: [address] [place] [address] Performed By: #### 5 7021-8 ####[facility]KANCL[facility] [id number] [place] [address] [place] Immature granulocytes/100 WBC (Bld) 0.4 % Normal [facility] Comment on above: Order Comment: Speci men Type: BLOOD SPECIMENOrdering Facility: [facility] Address: [address] [place] [address] Performed By: #### 5 7021-8 ####[facility] HOSPITALLIA [id number] [place] [address] [place] Lymphocytes (Bld) [#/Vol] 0.95 10*3/uL Low 1.00-4.00 [facility] Comment on above: Order Comment: Speci men Type: BLOOD SPECIMENOrdering Facility: [facility] Address: [address] [place] [address] Performed By: #### 5 7021-8 ####[facility] EMERGENCYAmalia [id number] [place] [address] [place] Lymphocytes/100 WBC (Bld) 18.2 % Normal [facility] Comment on above: Order Comment: Speci men Type: BLOOD SPECIMENOrdering Facility: [facility] Address: [address] [place] [address] Performed By: #### 5 7021-8 ####[facility] [id number] [place] [address] [place] MCH (RBC) [Entitic mass] 31.4 pg Normal 26.0-34.0 [facility] Comment on above: Order Comment: Speci men Type: BLOOD SPECIMENOrdering Facility: [facility] Address: [address] [place] [address] Performed By: #### 5 7021-8 ####[facility] [id number] [place] [address] [place] MCHC (RBC) [Mass/Vol] 33.0 g/dL Normal 30.5-36.0 [facility] Comment on above: Order Comment: Speci men Type: BLOOD SPECIMENOrdering Facility: [facility] Address: [address] [place] [address] Performed By: #### 5 7021-8 ####[facility] [id number] [place] [address] [place] MCV (RBC) [Entitic vol] 95.3 fL Normal 80.0-100.0 C [facility] Comment on above: Order Comment: Speci men Type: BLOOD SPECIMENOrdering Facility: [facility] Address: [address] [place] [address] Performed By: #### 5 7021-8 ####[facility] HOSPITALAARON [id number] [place] [address] [place] Monocytes (Bld) [#/Vol] 0.50 10*3/uL Normal <0.87 [facility] Comment on above: Order Comment: Speci men Type: BLOOD SPECIMENOrdering Facility: [facility] Address: [address] [place] [address] Performed By: #### 5 7021-8 ####[facility]OSPITALLIA [id number] [place] [address] [place] Monocytes/100 WBC (Bld) 9.6 % Normal [facility] Comment on above: Order Comment: Speci men Type: BLOOD SPECIMENOrdering Facility: [facility] Address: [address] [place] [address] Performed By: #### 5 7021-8 ####[facility] [id number] [place] [address] [place] Neutrophils (Bld) [#/Vol] 3.56 10*3/uL Normal 1.45-7.50 [facility] Comment on above: Order Comment: Speci men Type: BLOOD SPECIMENOrdering Facility: [facility] Address: [address] [place] [address] Performed By: #### 5 7021-8 ####[facility] [id number] [place] [address] [place] Neutrophils/100 WBC (Bld) 68.1 % Normal [facility] Comment on above: Order Comment: Speci men Type: BLOOD SPECIMENOrdering Facility: [facility] Address: [address] [place] [address] Performed By: #### 5 7021-8 ####[facility] [id number] [place] [address] [place] Nucleated RBC (Bld) [#/Vol] 10*3/uL Normal <0.01 [facility] Comment on above: Order Comment: Speci men Type: BLOOD SPECIMENOrdering Facility: [facility] Address: [address] [place] [address] Performed By: #### 5 7021-8 ####[facility] RENEAdrianneNCLIA [id number] [place] [address] [place] Nucleated RBC/100 WBC (Bld) [Ratio] 0.0 /100 WBC Normal [facility] Comment on above: Order Comment: Speci men Type: BLOOD SPECIMENOrdering Facility: [facility] Address: [address] [place] [address] Performed By: #### 5 7021-8 ####[facility]KANCL[facility] [id number] [place] [address] [place] Platelet mean volume (Bld) [Entitic vol] 9.4 fL Normal 9.0-12.7 [facility] Comment on above: Order Comment: Speci men Type: BLOOD SPECIMENOrdering Facility: [facility] Address: [address] [place] [address] Performed By: #### 5 7021-8 ####[facility]OPKANCL[facility] [id number] [place] [address] [place] Platelets (Bld) [#/Vol] 126 10*3/uL Low 150-400 [facility] Comment on above: Order Comment: Speci men Type: BLOOD SPECIMENOrdering Facility: [facility] Address: [address] [place] [address] Performed By: #### 5 7021-8 ####[facility]OPKANCL[facility] [id number] [place] [address] [place] RBC (Bld) [#/Vol] 3.18 10*6/uL Low 3.90-5.20 [facility] Comment on above: Order Comment: Speci men Type: BLOOD SPECIMENOrdering Facility: [facility] Address: [address] [place] [address] Performed By: #### 5 7021-8 ####[facility]OPKANCL[facility] [id number] [place] [address] [place] WBC (Bld) [#/Vol] 5.22 10*3/uL Normal 3.70-11.00 [facility] Comment on above: Order Comment: Speci men Type: BLOOD SPECIMENOrdering Facility: [facility] Address: [address] [place] [address] [place] [address] Performed By: #### 5 7021-8 ####[facility] DEN[facility] [id number] [place] [address] [place] CNOVSPon 08-01-2024 CNOVSP Normal [facility] CNPNon 08-01-2024 CNPN Normal [facility] Comprehensive metabolic 2000 panelOrdered By: Zoila Rodriguez on 08-01-2024 Albumin [Mass/Vol] 3.8 g/dL Low 3.9 - 4.9 g/dL [facility] ALP [Catalytic activity/Vol] 81 U/L 34 - 123 U/L [facility] ALT [Catalytic activity/Vol] 12 U/L 7 - 38 U/L [facility] Anion gap [Moles/Vol] 12 mmol/L 8 - 15 mmol/L [facility] AST [Catalytic activity/Vol] 10 U/L Low 13 - 35 U/L [facility] Bilirubin [Mass/Vol] 0.3 mg/dL 0.2 - 1 .3 mg/dL [facility] Calcium [Mass/Vol] 9.2 mg/dL 8.5 - 10. 2 mg/dL [facility] Chloride [Moles/Vol] 101 mmol/L 98 - 10 7 mmol/L [facility] CO2 [Moles/Vol] 24 mmol/L 22 - 30 mmol/L [facility] Creatinine [Mass/Vol] 0.91 mg/dL 0.58 - 0.96 mg/dL [facility] GFR/1.73 sq M.predicted among non-blacks MDRD (S/P/Bld) [Vol rate/Area] 65 mL/min/{1.73_m2} - PINF [facility] Comment on above: Estimated Glomerular Filtration Rate (eGFR) is calculated using the 2020 CKD-EPI creatinine equation. This equation utilizes serum creatinine, sex, and age as parameters. The creatinine assay has traceable calibration to isotope dilution-mass spectrometry. Refer to KDIGO guidelines for clinical interpretation. In patients with unstable renal function, e.g. those with acute kidney injury, the eGFR may not accurately reflect actual GFR. Glucose [Mass/Vol] 208 mg/dL High 74 - 99 mg/dL [facility] Comment on above: The [place] Diabete s Association (ADA) provides guidance for cutoff values for fasting glucose and random glucose. The ADA defines fasting as no caloric intake for at least 8 hours. Fasting plasma glucose results between 100 to 125 mg/dL indicate increased risk for diabetes (prediabetes). Fasting plasma glucose results greater than or equal to 126 mg/dL meet the criteria for diagnosis of diabetes. In the absence of unequivocal hyperglycemia, results should be confirmed by repeat testing. In a patient with classic symptoms of hyperglycemia or hyperglycemic crisis, random plasma glucose results greater than or equal to 200 mg/dL meet the criteria for diagnosis of diabetes. Reference: Standards of Medical Care in Diabetes 2016, [place] Diabetes Association. Diabetes Care. 2016.39(Suppl 1). Potassium [Moles/Vol] 4.4 mmol/L 3.7 - 5.1 mmol/L [facility] Protein [Mass/Vol] 6.7 g/dL 6.3 - 8.0 g/dL [facility] Sodium [Moles/Vol] 137 mmol/L 136 - 144 mmol/L [facility] Urea nitrogen [Mass/Vol] 20 mg/dL 7 - 21 mg/dL [facility] Comprehensive metabolic 2000 panelon 08-01-2024 Albumin [Mass/Vol] 3.8 g/dL Low 3.9-4.9 [facility] Comment on above: Order Comment: Guera doll Type: BLOOD SPECIMENOrdering Facility: [facility] Address: [address] [place] [address] Performed By: #### 2 4323-8, 78355-4 ####[facility] [id number] [place] [address] [place] ALP [Catalytic activity/Vol] 81 U/L Normal 34-123 [facility] Comment on above: Order Comment: Guera doll Type: BLOOD SPECIMENOrdering Facility: [facility] Address: [address] [place] [address] Performed By: #### 2 4323-8, 50920-2 ####[facility] DENNIS NORYLIA [id number] [address] STATES OF [facility] ALT [Catalytic activity/Vol] 12 U/L Normal 7-38 [facility] Comment on above: Order Comment: Speci men Type: BLOOD SPECIMENOrdering Facility: [facility] Address: [address] [place] [address] Performed By: #### 2 4323-8, ####[facility] RENEBELLONANCIRISA [id number] [place] [address] [place] Anion gap [Moles/Vol] 12 mmol/L Normal 8-15 [facility] Comment on above: Order Comment: Speci men Type: BLOOD SPECIMENOrdering Facility: [facility] Address: [address] [place] [address] Performed By: #### 2 4323-8, ####[facility] [id number] [address] [place] AST [Catalytic activity/Vol] 10 U/L Low 13-35 [facility] Comment on above: Order Comment: Speci men Type: BLOOD SPECIMENOrdering Facility: [facility] Address: [address] [place] [address] Performed By: #### 2 4323-8, ####[facility]KANCL[facility] [id number] [place] [address] [place] Bilirubin [Mass/Vol] 0.3 mg/dL Normal 0.2-1.3 [facility] Comment on above: Order Comment: Speci men Type: BLOOD SPECIMENOrdering Facility: [facility] Address: [address] [place] [address] Performed By: #### 2 4323-8, ####[facility] DENNIS MILLTOWNCLIA [id number] [place] [address] [place] Calcium [Mass/Vol] 9.2 mg/dL Normal 8.5-10.2 [facility] Comment on above: Order Comment: Speci men Type: BLOOD SPECIMENOrdering Facility: [facility] Address: [address] [place] [address] Performed By: #### 2 4323-8, ####[facility] MILLTOWNCLIA [id number] [place] [address] [place] Chloride [Moles/Vol] 101 mmol/L Normal 98-107 [facility] Comment on above: Order Comment: Speci men Type: BLOOD SPECIMENOrdering Facility: [facility] Address: [address] [place] [address] Performed By: #### 2 4323-8, ####[facility] MILLWNCLIA [id number] [place] [address] [place] CO2 [Moles/Vol] 24 mmol/L Normal 22-30 [facility] Comment on above: Order Comment: Speci men Type: BLOOD SPECIMENOrdering Facility: [facility] Address: [address] [place] [address] Performed By: #### 2 4323-8, ####[facility] MILLTOWNCLIA [id number] [place] [address] [place] Creatinine [Mass/Vol] 0.91 mg/dL Normal 0.58-0.96 [facility] Comment on above: Order Comment: Speci men Type: BLOOD SPECIMENOrdering Facility: [facility] Address: [address] [place] [address] Performed By: #### 2 4323-8, ####[facility] MILLTOWNCLIA [id number] [place] [address] [place] Creatinine and Glomerular filtration rate.predicted panel (S/P/Bld) 65 mL/min/1.73m??? Normal >=60 [facility] Comment on above: Order Comment: Guera doll Type: BLOOD SPECIMENOrdering Facility: [facility] Address: [address] [place] [address] Result Comment: Judith mated Glomerular Filtration Rate (eGFR) is calculated using the 2020 CKD-EPI creatinine equation. This equation utilizes serum creatinine, sex, and age as parameters. The creatinine assay has traceable calibration to isotope dilution-mass spectrometry. Refer to KDIGO guidelines for clinical interpretation. In patients with unstable renal function, e.g. those with acute kidney injury, the eGFR may not accurately reflect actual GFR. Performed By: #### 2 4323-8, 11801-4 ####[facility] [id number] [place] [address] [place] Glucose [Mass/Vol] 208 mg/dL High 74-99 [facility] Comment on above: Order Comment: Guera doll Type: BLOOD SPECIMENOrdering Facility: [facility] Address: [address] [place] [address] Result Comment: The [place] Diabetes Association (ADA) provides guidance for cutoff values for fasting glucose and random glucose. The ADA defines fasting as no caloric intake for at least 8 hours. Fasting plasma glucose results between 100 to 125 mg/dL indicate increased risk for diabetes (prediabetes).Fasting plasma glucose results greater than or equal to 126 mg/dL meet the criteria for diagnosis of diabetes. In the absence of unequivocal hyperglycemia, results should be confirmed by repeat testing. In a patient with classic symptoms of hyperglycemia or hyperglycemic crisis, random plasma glucose results greater than or equal to 200 mg/dL meet the criteria for diagnosis of diabetes.Reference: Standards of Medical Care in Diabetes 2016, [place] [employer] Association. Diabetes Care. 2016.39(Suppl 1). Performed By: #### 2 4323-8, 83752-8 ####[facility] [id number] [place] [address] [place] Potassium [Moles/Vol] 4.4 mmol/L Normal 3.7-5.1 [facility] Comment on above: Order Comment: Speci men Type: BLOOD SPECIMENOrdering Facility: [facility] Address: [address] [place], [place] [address] Performed By: #### 2 4323-8, ####[facility] [id number] [place] [address] [place] Protein [Mass/Vol] 6.7 g/dL Normal 6.3-8.0 [facility] Comment on above: Order Comment: Speci men Type: BLOOD SPECIMENOrdering Facility: [facility] Address: [address] [place] [address] Performed By: #### 2 4323-8, ####[facility] [id number] [place] [address] [place] Sodium [Moles/Vol] 137 mmol/L Normal 136-144 [facility] Comment on above: Order Comment: Speci men Type: BLOOD SPECIMENOrdering Facility: [facility] Address: [address] [place] [address] Performed By: #### 2 4323-8, ####[facility] [id number] [place] [address] [place] Urea nitrogen [Mass/Vol] 20 mg/dL Normal 7-21 [facility] Comment on above: Order Comment: Speci men Type: BLOOD SPECIMENOrdering Facility: [facility] Address: [address] [place] [address] Performed By: #### 2 4323-8, ####[facility] [id number] [place] [address] [place] MAGNESIUMon 08-01-2024 Magnesium [Mass/Vol] 1.4 mg/dL Low 1.7 - 2 .3 mg/dL [facility] Magnesium SerPl-mCncon 08-01 Magnesium [Mass/Vol] 1.4 mg/dL Low 1.7-2.3 [facility] Comment on above: Order Comment: Speci men Type: BLOOD SPECIMENOrdering Facility: [facility] Address: [address] [place] [address] Performed By: #### 2 4323-8, 80455-9 ####[facility] DENNIS MILLINDIANA [facility] [id number] [place] [id number] [place] [address] STATES OF [facility] No Panel InformationOrdered By: Zoila Rodriguez on 08-01-2024 Interpretation and review of laboratory results Abnormal [facility] CNPNon 07-20-2024 CNPN Normal [facility] CNOVon 07-18-2024 CNOV Normal [facility] CNPNon 07-13-2024 CNPN Normal [facility] CNPNon 07-12-2024 CNPN Normal [facility] CBC W Auto Differential pane l (Bld)on 07-11-2024 Basophils (Bld) [#/Vol] 0.03 10*3/uL [facility] Basophils/100 WBC (Bld) 0.5 % C [facility] Differential cell count method Nom (Bld) Auto [facility] Eosinophils (Bld) [#/Vol] 0.27 10*3/uL [facility] Eosinophils/100 WBC (Bld) 4.8 % [facility] Erythrocyte distribution width (RBC) [Ratio] 14.3 % 11.5 - 15.0 % [facility] Hematocrit (Bld) [Volume fraction] 30.8 % Low 36.0 - 46.0 % [facility] Hemoglobin (Bld) [Mass/Vol] 9.9 g/dL Low 11.5 - 15.5 g/dL [facility] Immature granulocytes (Bld) [#/Vol] 0.03 10*3/uL [facility] Immature granulocytes/100 WBC (Bld) 0.5 % [facility] Lymphocytes (Bld) [#/Vol] 1 10*3/uL [facility] Lymphocytes/100 WBC (Bld) 17.8 % [facility] MCH (RBC) [Entitic mass] 31 pg 26.0 - 34.0 pg [facility] MCHC (RBC) [Mass/Vol] 32.1 g/dL 30.5 - 36.0 g/dL [facility] MCV (RBC) [Entitic vol] 96.6 fL 80.0 - 100.0 fL [facility] Monocytes (Bld) [#/Vol] 0.53 10*3/uL [facility] Monocytes/100 WBC (Bld) 9.4 % C [facility] Neutrophils (Bld) [#/Vol] 3.75 10*3/uL [facility] Neutrophils/100 WBC (Bld) 67 % [facility] Nucleated RBC (Bld) [#/Vol] NINF [facility] Nucleated RBC/100 WBC (Bld) [Ratio] 0 % /100 WBC [facility] Platelet mean volume (Bld) [Entitic vol] 9.7 fL 9.0 - 12.7 fL [facility] Platelets (Bld) [#/Vol] 130 10*3/uL Low [facility] RBC (Bld) [#/Vol] 3.19 10*6/uL Low 3.90 - 5.2 0 m/uL [facility] WBC (Bld) [#/Vol] 5.61 10*3/uL [facility] Basophils (Bld) [#/Vol] 0.03 10*3/uL Normal <0.11 [facility] Comment on above: Order Comment: Speci men Type: BLOOD SPECIMENOrdering Facility: [facility] Address: [address] [place] [address] Performed By: #### 5 7021-8 ####[facility] [id number] [address] STATES OF [facility] Basophils/100 WBC (Bld) 0.5 % Normal [facility] Comment on above: Order Comment: Speci men Type: BLOOD SPECIMENOrdering Facility: [facility] Address: [address] [place], [place] [address] Performed By: #### 5 7021-8 ####[facility] [id number] [place] [id number] [place] Differential cell count method Nom (Bld) Auto Normal [facility] Comment on above: Order Comment: Speci men Type: BLOOD SPECIMENOrdering Facility: [facility] Address: [address] [place] [address] Performed By: #### 5 7021-8 ####[facility] SERVICESWNCGUNN[facility] [id number] [place] [address] [place] Eosinophils (Bld) [#/Vol] 0.27 10*3/uL Normal <0.46 [facility] Comment on above: Order Comment: Speci men Type: BLOOD SPECIMENOrdering Facility: [facility] Address: [address] [place] [address] Performed By: #### 5 7021-8 ####[facility] [id number] [place] [address] [place] Eosinophils/100 WBC (Bld) 4.8 % Normal [facility] Comment on above: Order Comment: Speci men Type: BLOOD SPECIMENOrdering Facility: [facility] Address: [address] [place] [address] Performed By: #### 5 7021-8 ####[facility] [id number] [place] [address] [place] Erythrocyte distribution width (RBC) [Ratio] 14.3 % Normal 11.5-15.0 [facility] Comment on above: Order Comment: Speci men Type: BLOOD SPECIMENOrdering Facility: [facility] Address: [address] [place] [address] Performed By: #### 5 7021-8 ####[facility] [id number] [place] [address] [place] Hematocrit (Bld) [Volume fraction] 30.8 % Low 36.0-46.0 [facility] Comment on above: Order Comment: Speci men Type: BLOOD SPECIMENOrdering Facility: [facility] Address: [address] [place] [address] Performed By: #### 5 7021-8 ####[facility] [id number] [place] [address] [place] Hemoglobin (Bld) [Mass/Vol] 9.9 g/dL Low 11.5-15.5 [facility] Comment on above: Order Comment: Speci men Type: BLOOD SPECIMENOrdering Facility: [facility] Address: [address] [place] [address] Performed By: #### 5 7021-8 ####[facility] [id number] [place] [address] [place] Immature granulocytes (Bld) [#/Vol] 0.03 10*3/uL Normal <0.10 [facility] Comment on above: Order Comment: Speci men Type: BLOOD SPECIMENOrdering Facility: [facility] Address: [address] [place] [address] Performed By: #### 5 7021-8 ####[facility] [id number] [place] [address] [place] Immature granulocytes/100 WBC (Bld) 0.5 % Normal [facility] Comment on above: Order Comment: Speci men Type: BLOOD SPECIMENOrdering Facility: [facility] Address: [address] [place] [address] Performed By: #### 5 7021-8 ####[facility] [id number] [place] [address] [place] Lymphocytes (Bld) [#/Vol] 1.00 10*3/uL Normal 1.00-4.00 [facility] Comment on above: Order Comment: Speci men Type: BLOOD SPECIMENOrdering Facility: [facility] Address: [address] [place] [address] Performed By: #### 5 7021-8 ####[facility] RENEBELLONAANAMLIA [id number] [place] [address] [place] Lymphocytes/100 WBC (Bld) 17.8 % Normal [facility] Comment on above: Order Comment: Speci men Type: BLOOD SPECIMENOrdering Facility: [facility] Address: [address] [place] [address] Performed By: #### 5 7021-8 ####[facility] [id number] [place] [address] [place] MCH (RBC) [Entitic mass] 31.0 pg Normal 26.0-34.0 [facility] Comment on above: Order Comment: Speci men Type: BLOOD SPECIMENOrdering Facility: [facility] Address: [address] [place] [address] Performed By: #### 5 7021-8 ####[facility] [id number] [place] [address] [place] MCHC (RBC) [Mass/Vol] 32.1 g/dL Normal 30.5-36.0 [facility] Comment on above: Order Comment: Speci men Type: BLOOD SPECIMENOrdering Facility: [facility] Address: [address] [place] [address] Performed By: #### 5 7021-8 ####[facility] [id number] [place] [address] [place] MCV (RBC) [Entitic vol] 96.6 fL Normal 80.0-100.0 C [facility] Comment on above: Order Comment: Speci men Type: BLOOD SPECIMENOrdering Facility: [facility] Address: [address] [place] [address] Performed By: #### 5 7021-8 ####[facility] [id number] [place] [address] [place] Monocytes (Bld) [#/Vol] 0.53 10*3/uL Normal <0.87 [facility] Comment on above: Order Comment: Speci men Type: BLOOD SPECIMENOrdering Facility: [facility] Address: [address] [place] [address] Performed By: #### 5 7021-8 ####[facility] [id number] [place] [address] [place] Monocytes/100 WBC (Bld) 9.4 % Normal [facility] Comment on above: Order Comment: Speci men Type: BLOOD SPECIMENOrdering Facility: [facility] Address: [address] [place] [address] Performed By: #### 5 7021-8 ####[facility] [id number] [place] [address] [place] Neutrophils (Bld) [#/Vol] 3.75 10*3/uL Normal 1.45-7.50 [facility] Comment on above: Order Comment: Speci men Type: BLOOD SPECIMENOrdering Facility: [facility] Address: [address] [place] [address] Performed By: #### 5 7021-8 ####[facility] [id number] [place] [address] [place] Neutrophils/100 WBC (Bld) 67.0 % Normal [facility] Comment on above: Order Comment: Speci men Type: BLOOD SPECIMENOrdering Facility: [facility] Address: [address] [place] [address] Performed By: #### 5 7021-8 ####[facility] [id number] [place] [address] [place] Nucleated RBC (Bld) [#/Vol] 10*3/uL Normal <0.01 [facility] Comment on above: Order Comment: Speci men Type: BLOOD SPECIMENOrdering Facility: [facility] Address: [address] [place] [address] Performed By: #### 5 7021-8 ####[facility] [id number] [place] [address] [place] Nucleated RBC/100 WBC (Bld) [Ratio] 0.0 /100 WBC Normal [facility] Comment on above: Order Comment: Speci men Type: BLOOD SPECIMENOrdering Facility: [facility] Address: [address] [place] [address] Performed By: #### 5 7021-8 ####[facility] [id number] [place] [address] [place] Platelet mean volume (Bld) [Entitic vol] 9.7 fL Normal 9.0-12.7 [facility] Comment on above: Order Comment: Speci men Type: BLOOD SPECIMENOrdering Facility: [facility] Address: [address] [place] [address] Performed By: #### 5 7021-8 ####[facility] [id number] [place] [address] [place] Platelets (Bld) [#/Vol] 130 10*3/uL Low 150-400 [facility] Comment on above: Order Comment: Speci men Type: BLOOD SPECIMENOrdering Facility: [facility] Address: [address] [place] [address] Performed By: #### 5 7021-8 ####[facility] [id number] [place] [address] [place] RBC (Bld) [#/Vol] 3.19 10*6/uL Low 3.90-5.20 [facility] Comment on above: Order Comment: Speci men Type: BLOOD SPECIMENOrdering Facility: [facility] Address: [address] [place] [address] Performed By: #### 5 7021-8 ####[facility] DENNIS LÓPEZTOWNCLIA [id number] [place] [address] [place] WBC (Bld) [#/Vol] 5.61 10*3/uL Normal 3.70-11.00 [facility] Comment on above: Order Comment: Speci men Type: BLOOD SPECIMENOrdering Facility: [facility] Address: [facility] [address] Performed By: #### 5 7021-8 ####[facility] [id number] [address] [place] Comprehensive metabolic 2000 panelOrdered By: Tatyana Frost on 07-11-2024 Albumin [Mass/Vol] 3.8 g/dL Low 3.9 - 4.9 g/dL [facility] ALP [Catalytic activity/Vol] 78 U/L 34 - 123 U/L [facility] ALT [Catalytic activity/Vol] 9 U/L 7 - 38 U/L [facility] Anion gap [Moles/Vol] 9 mmol/L 8 - 15 mmol/L [facility] AST [Catalytic activity/Vol] 9 U/L Low 13 - 35 U/L [facility] Bilirubin [Mass/Vol] 0.3 mg/dL 0.2 - 1 .3 mg/dL [facility] Calcium [Mass/Vol] 9.6 mg/dL 8.5 - 10. 2 mg/dL [facility] Chloride [Moles/Vol] 98 mmol/L 98 - 10 7 mmol/L [facility] CO2 [Moles/Vol] 30 mmol/L 22 - 30 mmol/L [facility] Creatinine [Mass/Vol] 0.9 mg/dL 0.58 - 0.96 mg/dL [facility] GFR/1.73 sq M.predicted among non-blacks MDRD (S/P/Bld) [Vol rate/Area] 66 mL/min/{1.73_m2} - PINF [facility] Comment on above: Estimated Glomerular Filtration Rate (eGFR) is calculated using the 2020 CKD-EPI creatinine equation. This equation utilizes serum creatinine, sex, and age as parameters. The creatinine assay has traceable calibration to isotope dilution-mass spectrometry. Refer to KDIGO guidelines for clinical interpretation. In patients with unstable renal function, e.g. those with acute kidney injury, the eGFR may not accurately reflect actual GFR. Glucose [Mass/Vol] 229 mg/dL High 74 - 99 mg/dL [facility] Comment on above: The [place] Diab[employer] [place] Association (ADA) provides guidance for cutoff values for fasting glucose and random glucose. The ADA defines fasting as no caloric intake for at least 8 hours. Fasting plasma glucose results between 100 to 125 mg/dL indicate increased risk for diabetes (prediabetes). Fasting plasma glucose results greater than or equal to 126 mg/dL meet the criteria for diagnosis of diabetes. In the absence of unequivocal hyperglycemia, results should be confirmed by repeat testing. In a patient with classic symptoms of hyperglycemia or hyperglycemic crisis, random plasma glucose results greater than or equal to 200 mg/dL meet the criteria for diagnosis of diabetes. Reference: Standards of Medical Care in Diabetes 2016, [place] Diabetes [employer]. Diabetes Care. 2016.39(Suppl 1). Potassium [Moles/Vol] 4.7 mmol/L 3.7 - 5.1 mmol/L [facility] Protein [Mass/Vol] 7 g/dL 6.3 - 8.0 g/dL [facility] Sodium [Moles/Vol] 137 mmol/L 136 - 144 mmol/L [facility] Urea nitrogen [Mass/Vol] 22 mg/dL High 7 - 21 mg/dL [facility] Comprehensive metabolic 2000 panelon 07-11-2024 Albumin [Mass/Vol] 3.8 g/dL Low 3.9-4.9 [facility] Comment on above: Order Comment: Speci men Type: BLOOD SPECIMENOrdering Facility: [facility] Address: [address] [place] [address] Performed By: #### 2 4323-8, 74931-5 ####[facility] [id number] [place] [address] [place] ALP [Catalytic activity/Vol] 78 U/L Normal 34-123 [facility] Comment on above: Order Comment: Speci men Type: BLOOD SPECIMENOrdering Facility: [facility] Address: [address] [place] [address] Performed By: #### 2 4323-8, 48878-8 ####[facility] DENNIS MILLTOWNCLIA [id number] [place] [address] [place] ALT [Catalytic activity/Vol] 9 U/L Normal 7-38 [facility] Comment on above: Order Comment: Speci men Type: BLOOD SPECIMENOrdering Facility: [facility] Address: [address] [place] [address] Performed By: #### 2 4323-8, ####[facility] MILLTOWNCLIA [id number] [place] [address] [place] Anion gap [Moles/Vol] 9 mmol/L Normal 8-15 [facility] Comment on above: Order Comment: Speci men Type: BLOOD SPECIMENOrdering Facility: [facility] Address: [address] [place] [address] Performed By: #### 2 432-8, ####[facility] MILLWNCLIA [id number] [place] [address] [place] AST [Catalytic activity/Vol] 9 U/L Low 13-35 [facility] Comment on above: Order Comment: Speci men Type: BLOOD SPECIMENOrdering Facility: [facility] Address: [address] [place] [address] Performed By: #### 2 4323-8, ####[facility] MILLTOWNCLIA [id number] [place] [address] [place] Bilirubin [Mass/Vol] 0.3 mg/dL Normal 0.2-1.3 [facility] Comment on above: Order Comment: Speci men Type: BLOOD SPECIMENOrdering Facility: [facility] Address: [address] [place] [address] Performed By: #### 2 4323-8, ####[facility] MILLTOWNCLIA [id number] [place] [address] [place] Calcium [Mass/Vol] 9.6 mg/dL Normal 8.5-10.2 [facility] Comment on above: Order Comment: Speci men Type: BLOOD SPECIMENOrdering Facility: [facility] Address: [address] [place] [address] Performed By: #### 2 4323-8, ####[facility] MILLWANAMLIA [id number] [place] [address] [place] Chloride [Moles/Vol] 98 mmol/L Normal 98-107 [facility] Comment on above: Order Comment: Speci men Type: BLOOD SPECIMENOrdering Facility: [facility] Address: [address] [place] [address] Performed By: #### 2 4323-8, ####[facility] [id number] [place] [address] [place] CO2 [Moles/Vol] 30 mmol/L Normal 22-30 [facility] Comment on above: Order Comment: Speci men Type: BLOOD SPECIMENOrdering Facility: [facility] Address: [address] [place] [address] Performed By: #### 2 4323-8, ####[facility] [id number] [place] [address] [place] Creatinine [Mass/Vol] 0.90 mg/dL Normal 0.58-0.96 [facility] Comment on above: Order Comment: Speci men Type: BLOOD SPECIMENOrdering Facility: [facility] Address: [address] [place] [address] Performed By: #### 2 4323-8, ####[facility] MILLBELLONANCLIA [id number] [place] [address] [place] Creatinine and Glomerular filtration rate.predicted panel (S/P/Bld) 66 mL/min/1.73m??? Normal >=60 [facility] Comment on above: Order Comment: Guera doll Type: BLOOD SPECIMENOrdering Facility: [facility] Address: [address] [place] [address] Result Comment: Judith mated Glomerular Filtration Rate (eGFR) is calculated using the 2020 CKD-EPI creatinine equation. This equation utilizes serum creatinine, sex, and age as parameters. The creatinine assay has traceable calibration to isotope dilution-mass spectrometry. Refer to KDIGO guidelines for clinical interpretation. In patients with unstable renal function, e.g. those with acute kidney injury, the eGFR may not accurately reflect actual GFR. Performed By: #### 2 4323-8, 69944-8 ####[facility] [id number] [place] [address] [place] Glucose [Mass/Vol] 229 mg/dL High 74-99 [facility] Comment on above: Order Comment: Guera doll Type: BLOOD SPECIMENOrdering Facility: [facility] Address: [address] [place] [address] Result Comment: The [place] Diabetes Association (ADA) provides guidance for cutoff values for fasting glucose and random glucose. The ADA defines fasting as no caloric intake for at least 8 hours. Fasting plasma glucose results between 100 to 125 mg/dL indicate increased risk for diabetes (prediabetes).Fasting plasma glucose results greater than or equal to 126 mg/dL meet the criteria for diagnosis of diabetes. In the absence of unequivocal hyperglycemia, results should be confirmed by repeat testing. In a patient with classic symptoms of hyperglycemia or hyperglycemic crisis, random plasma glucose results greater than or equal to 200 mg/dL meet the criteria for diagnosis of diabetes.Reference: Standards of Medical Care in Diabetes 2016, [place] [employer]. Diabetes Care. 2016.39(Suppl 1). Performed By: #### 2 4323-8, 30071-9 ####[facility] [id number] [place] [address] [place] Potassium [Moles/Vol] 4.7 mmol/L Normal 3.7-5.1 [facility] Comment on above: Order Comment: Speci men Type: BLOOD SPECIMENOrdering Facility: [facility] Address: [address] [place] [address] Performed By: #### 2 4323-8, ####[facility] [id number] [place] [address] [place] Protein [Mass/Vol] 7.0 g/dL Normal 6.3-8.0 [facility] Comment on above: Order Comment: Speci men Type: BLOOD SPECIMENOrdering Facility: [facility] Address: [address] [place] [address] Performed By: #### 2 432-8, ####[facility] [id number] [place] [address] [place] Sodium [Moles/Vol] 137 mmol/L Normal 136-144 [facility] Comment on above: Order Comment: Speci men Type: BLOOD SPECIMENOrdering Facility: [facility] Address: [address] [place] [address] Performed By: #### 2 4323-8, ####[facility] [id number] [place] [address] [place] Urea nitrogen [Mass/Vol] 22 mg/dL High 7-21 [facility] Comment on above: Order Comment: Speci men Type: BLOOD SPECIMENOrdering Facility: [facility] Address: [address] [place] [address] Performed By: #### 2 4323-8, ####[facility] [id number] [place] [address] [place] MAGNESIUMon 07-11-2024 Magnesium [Mass/Vol] 1.5 mg/dL Low 1.7 - 2 .3 mg/dL [facility] Magnesium SerPl-mCncon 07-11 Magnesium [Mass/Vol] 1.5 mg/dL Low 1.7-2.3 [facility] Comment on above: Order Comment: Speci men Type: BLOOD SPECIMENOrdering Facility: [facility] Address: [address] [place] [address] Performed By: #### 2 4323-8, 35847-8 ####[facility] [id number] [address] OF [facility] No Panel InformationOrdered By: Tatyana Frost on 07-11-2024 Interpretation and review of laboratory results Abnormal [facility] No Panel Informationon 07-11 Interpretation and review of laboratory results Abnormal [facility] UA DIP, URINE (POC)on 2024 BILIRUBIN UA (POCT) Negative Negative [facility] CLARITY UA (POCT) Clear [facility] COLOR UA (POCT) Yellow [facility] GLUCOSE UA (POCT) Negative Negative mg/dL [facility] Hemoglobin Ql (U) Negative Negative [facility] KETONE UA (POCT) Negative Negative mg/dL [facility] LEUKOCYTES UA (POCT) Small Abnormal Negative [facility] NITRITE UA (POCT) Negative Negative [facility] PH UA (POCT) 6.5 4.5 - 8.0 [facility] Protein Ql (U) Trace Abnormal Negative mg/dL [facility] SPECIFIC GRAVITY UA (POCT) 1.015 1.005 - 1.030 [facility] UROBILINOGEN UA (POCT) 0.2 Areli l E.U./dL [facility] Location:[facility], [address], [place], [place], [id number] [place] [address] POINT OF CARE CNPNon 07-04-2024 CNPN Normal [facility] CNOVSPon 07-03-2024 CNOVSP Normal [facility] CNPNon 07-03-2024 CNPN Normal [facility] CBC W Auto Differential pane l (Bld)on 06-20-2024 Basophils (Bld) [#/Vol] 0.04 10*3/uL [facility] Basophils/100 WBC (Bld) 0.8 % C [facility] Differential cell count method Nom (Bld) Auto [facility] Eosinophils (Bld) [#/Vol] 0.3 10*3/uL [facility] Eosinophils/100 WBC (Bld) 5.9 % [facility] Erythrocyte distribution width (RBC) [Ratio] 15.1 % High 11.5 - 15.0 % [facility] Hematocrit (Bld) [Volume fraction] 28.4 % Low 36.0 - 46.0 % [facility] Hemoglobin (Bld) [Mass/Vol] 9.3 g/dL Low 11.5 - 15.5 g/dL [facility] Immature granulocytes (Bld) [#/Vol] [facility] Immature granulocytes/100 WBC (Bld) 0.4 % [facility] Interpretation and review of laboratory results Abnormal [facility] Lymphocytes (Bld) [#/Vol] 0.92 10*3/uL Low [facility] Lymphocytes/100 WBC (Bld) 18 % [facility] MCH (RBC) [Entitic mass] 31.7 pg 26.0 - 34.0 pg [facility] MCHC (RBC) [Mass/Vol] 32.7 g/dL 30.5 - 36.0 g/dL [facility] MCV (RBC) [Entitic vol] 96.9 fL 80.0 - 100.0 fL [facility] Monocytes (Bld) [#/Vol] 0.47 10*3/uL [facility] Monocytes/100 WBC (Bld) 9.2 % C [facility] Neutrophils (Bld) [#/Vol] 3.35 10*3/uL [facility] Neutrophils/100 WBC (Bld) 65.7 % [facility] Nucleated RBC (Bld) [#/Vol] [facility] Nucleated RBC/100 WBC (Bld) [Ratio] 0 % /100 WBC [facility] Platelet mean volume (Bld) [Entitic vol] 9.8 fL 9.0 - 12.7 fL [facility] Platelets (Bld) [#/Vol] 118 10*3/uL Low [facility] RBC (Bld) [#/Vol] 2.93 10*6/uL Low 3.90 - 5.2 0 m/uL [facility] WBC (Bld) [#/Vol] 5.1 10*3/uL [facility] Basophils (Bld) [#/Vol] 0.04 10*3/uL Normal <0.11 [facility] Comment on above: Order Comment: Speci men Type: BLOOD SPECIMENOrdering Facility: [facility] Address: [address] [place] [address] Performed By: #### 5 7021-8 ####[facility] MILLWNCLIA [id number] [place] [address] [place] Basophils/100 WBC (Bld) 0.8 % Normal [facility] Comment on above: Order Comment: Speci men Type: BLOOD SPECIMENOrdering Facility: [facility] Address: [address] [place] [address] Performed By: #### 5 7021-8 ####[facility] [id number] [place] [address] [place] Differential cell count method Nom (Bld) Auto Normal [facility] Comment on above: Order Comment: Speci men Type: BLOOD SPECIMENOrdering Facility: [facility] Address: [address] [place] [address] Performed By: #### 5 7021-8 ####[facility] [id number] [place] [address] [place] Eosinophils (Bld) [#/Vol] 0.30 10*3/uL Normal <0.46 [facility] Comment on above: Order Comment: Speci men Type: BLOOD SPECIMENOrdering Facility: [facility] Address: [address] [place] [address] Performed By: #### 5 7021-8 ####[facility]IT[facility] [id number] [place] [address] [place] Eosinophils/100 WBC (Bld) 5.9 % Normal [facility] Comment on above: Order Comment: Speci men Type: BLOOD SPECIMENOrdering Facility: [facility] Address: [address] [place] [address] Performed By: #### 5 7021-8 ####[facility] RENEBELLONADAQUAN [id number] [place] [address] [place] Erythrocyte distribution width (RBC) [Ratio] 15.1 % High 11.5-15.0 [facility] Comment on above: Order Comment: Speci men Type: BLOOD SPECIMENOrdering Facility: [facility] Address: [address] [place] [address] Performed By: #### 5 7021-8 ####[facility] [id number] [place] [address] [place] Hematocrit (Bld) [Volume fraction] 28.4 % Low 36.0-46.0 [facility] Comment on above: Order Comment: Speci men Type: BLOOD SPECIMENOrdering Facility: [facility] Address: [address] [place] [address] Performed By: #### 5 7021-8 ####[facility] [id number] [place] [address] [place] Hemoglobin (Bld) [Mass/Vol] 9.3 g/dL Low 11.5-15.5 [facility] Comment on above: Order Comment: Speci men Type: BLOOD SPECIMENOrdering Facility: [facility] Address: [address] [place] [address] Performed By: #### 5 7021-8 ####[facility] HOSPITALLI [id number] [place] [address] [place] Immature granulocytes (Bld) [#/Vol] 10*3/uL Normal <0.10 [facility] Comment on above: Order Comment: Speci men Type: BLOOD SPECIMENOrdering Facility: [facility] Address: [address] [place] [address] Performed By: #### 5 7021-8 ####[facility] RENEBELLONANCLIA [id number] [place] [address] [place] Immature granulocytes/100 WBC (Bld) 0.4 % Normal [facility] Comment on above: Order Comment: Speci men Type: BLOOD SPECIMENOrdering Facility: [facility] Address: [address] [place] [address] Performed By: #### 5 7021-8 ####[facility] EMERGENCYAmalia [id number] [place] [address] [place] Lymphocytes (Bld) [#/Vol] 0.92 10*3/uL Low 1.00-4.00 [facility] Comment on above: Order Comment: Speci men Type: BLOOD SPECIMENOrdering Facility: [facility] Address: [address] [place] [address] Performed By: #### 5 7021-8 ####[facility] [id number] [place] [address] [place] Lymphocytes/100 WBC (Bld) 18.0 % Normal [facility] Comment on above: Order Comment: Speci men Type: BLOOD SPECIMENOrdering Facility: [facility] Address: [address] [place] [address] Performed By: #### 5 7021-8 ####[facility]CL[facility] [id number] [place] [address] [place] MCH (RBC) [Entitic mass] 31.7 pg Normal 26.0-34.0 [facility] Comment on above: Order Comment: Speci men Type: BLOOD SPECIMENOrdering Facility: [facility] Address: [address] [place] [address] Performed By: #### 5 7021-8 ####[facility]CL[facility] [id number] [place] [address] [place] MCHC (RBC) [Mass/Vol] 32.7 g/dL Normal 30.5-36.0 [facility] Comment on above: Order Comment: Speci men Type: BLOOD SPECIMENOrdering Facility: [facility] Address: [address] [place] [address] Performed By: #### 5 7021-8 ####[facility] [id number] [place] [address] [place] MCV (RBC) [Entitic vol] 96.9 fL Normal 80.0-100.0 C [facility] Comment on above: Order Comment: Speci men Type: BLOOD SPECIMENOrdering Facility: [facility] Address: [address] [place] [address] Performed By: #### 5 7021-8 ####[facility] [id number] [place] [address] [place] Monocytes (Bld) [#/Vol] 0.47 10*3/uL Normal <0.87 [facility] Comment on above: Order Comment: Speci men Type: BLOOD SPECIMENOrdering Facility: [facility] Address: [address] [place] [address] Performed By: #### 5 7021-8 ####[facility] [id number] [place] [address] [place] Monocytes/100 WBC (Bld) 9.2 % Normal C [facility] Comment on above: Order Comment: Speci men Type: BLOOD SPECIMENOrdering Facility: [facility] Address: [address] [place] [address] Performed By: #### 5 7021-8 ####[facility] [id number] [place] [address] [place] Neutrophils (Bld) [#/Vol] 3.35 10*3/uL Normal 1.45-7.50 [facility] Comment on above: Order Comment: Speci men Type: BLOOD SPECIMENOrdering Facility: [facility] Address: [address] [place] [address] Performed By: #### 5 7021-8 ####[facility] RENEROXANNEA [id number] [place] [address] [place] Neutrophils/100 WBC (Bld) 65.7 % Normal [facility] Comment on above: Order Comment: Speci men Type: BLOOD SPECIMENOrdering Facility: [facility] Address: [address] [place] [address] Performed By: #### 5 7021-8 ####[facility] [id number] [place] [address] [place] Nucleated RBC (Bld) [#/Vol] 10*3/uL Normal <0.01 [facility] Comment on above: Order Comment: Speci men Type: BLOOD SPECIMENOrdering Facility: [facility] Address: [address] [place] [address] Performed By: #### 5 7021-8 ####[facility] HOSPITALIRISA [id number] [place] [address] [place] Nucleated RBC/100 WBC (Bld) [Ratio] 0.0 /100 WBC Normal [facility] Comment on above: Order Comment: Speci men Type: BLOOD SPECIMENOrdering Facility: [facility] Address: [address] [place] [address] Performed By: #### 5 7021-8 ####[facility] RENEBELLONAANAMLIA [id number] [place] [address] [place] Platelet mean volume (Bld) [Entitic vol] 9.8 fL Normal 9.0-12.7 [facility] Comment on above: Order Comment: Speci men Type: BLOOD SPECIMENOrdering Facility: [facility] Address: [address] [place] [address] Performed By: #### 5 7021-8 ####[facility]KANCL[facility] [id number] [place] [address] [place] Platelets (Bld) [#/Vol] 118 10*3/uL Low 150-400 [facility] Comment on above: Order Comment: Speci men Type: BLOOD SPECIMENOrdering Facility: [facility] Address: [address] [place] [address] Performed By: #### 5 7021-8 ####[facility]CL[facility] [id number] [place] [address] [place] RBC (Bld) [#/Vol] 2.93 10*6/uL Low 3.90-5.20 [facility] Comment on above: Order Comment: Speci men Type: BLOOD SPECIMENOrdering Facility: [facility] Address: [address] [place] [address] Performed By: #### 5 7021-8 ####[facility]OP[facility]ANCA [id number] [place] [address] [place] WBC (Bld) [#/Vol] 5.10 10*3/uL Normal 3.70-11.00 [facility] Comment on above: Order Comment: Speci men Type: BLOOD SPECIMENOrdering Facility: [facility] Address: [address] [place] [address] Performed By: #### 5 7021-8 ####[facility]KANCL[facility] [id number] [place] [address] [place] ABD/PEL W IVCONon 025 CT ABD/PEL W IVCON Normal [facility] CT CHEST W IVCONon 5 CT CHEST W IVCON Normal [facility] metabolic 2000 panelon 06-20-2024 Albumin [Mass/Vol] 3.7 g/dL Low 3.9 - 4.9 g/dL [facility] ALP [Catalytic activity/Vol] 80 U/L 34 - 123 U/L [facility] ALT With P-5'-P [Catalytic activity/Vol] 12 U/L 7 - 38 U/L [facility] Anion gap [Moles/Vol] 12 mmol/L 8 - 15 mmol/L [facility] AST With P-5'-P [Catalytic activity/Vol] 14 U/L 13 - 35 U/L [facility] Bilirubin [Mass/Vol] 0.3 mg/dL 0.2 - 1 .3 mg/dL [facility] Calcium [Mass/Vol] 9.4 mg/dL 8.5 - 10. 2 mg/dL [facility] Chloride [Moles/Vol] 100 mmol/L 98 - 10 7 mmol/L [facility] CO2 [Moles/Vol] 27 mmol/L 22 - 30 mmol/L [facility] Creatinine [Mass/Vol] 1.03 mg/dL High 0.58 - 0.96 mg/dL [facility] GFR/1.73 sq M.predicted among non-blacks MDRD (S/P/Bld) [Vol rate/Area] 56 mL/min/{1.73_m2} Low - PINF [facility] Comment on above: Estimated Glomerular Filtration Rate (eGFR) is calculated using the 2020 CKD-EPI creatinine equation. This equation utilizes serum creatinine, sex, and age as parameters. The creatinine assay has traceable calibration to isotope dilution-mass spectrometry. Refer to KDIGO guidelines for clinical interpretation. In patients with unstable renal function, e.g. those with acute kidney injury, the eGFR may not accurately reflect actual GFR. Glucose [Mass/Vol] 252 mg/dL High 74 - 99 mg/dL [facility] Comment on above: The [place] Diabete s Association (ADA) provides guidance for cutoff values for fasting glucose and random glucose. The ADA defines fasting as no caloric intake for at least 8 hours. Fasting plasma glucose results between 100 to 125 mg/dL indicate increased risk for diabetes (prediabetes). Fasting plasma glucose results greater than or equal to 126 mg/dL meet the criteria for diagnosis of diabetes. In the absence of unequivocal hyperglycemia, results should be confirmed by repeat testing. In a patient with classic symptoms of hyperglycemia or hyperglycemic crisis, random plasma glucose results greater than or equal to 200 mg/dL meet the criteria for diagnosis of diabetes. Reference: Standards of Medical Care in Diabetes 2016, [place] [employer] Association. Diabetes Care. 2016.39(Suppl 1). Potassium [Moles/Vol] 4.8 mmol/L 3.7 - 5.1 mmol/L [facility] Protein [Mass/Vol] 6.6 g/dL 6.3 - 8.0 g/dL [facility] Sodium [Moles/Vol] 139 mmol/L 136 - 144 mmol/L [facility] Urea nitrogen [Mass/Vol] 21 mg/dL 7 - 21 mg/dL [facility] Albumin [Mass/Vol] 3.7 g/dL Low 3.9-4.9 [facility] Comment on above: Order Comment: Speci men Type: BLOOD SPECIMENOrdering Facility: [facility] Address: [address] [place] [address] Performed By: #### 1 9123-9, 47091-3 ####[facility] [place] LABCLIA [id number] [place] [address] [place] ALP [Catalytic activity/Vol] 80 U/L Normal 34-123 [facility] Comment on above: Order Comment: Speci men Type: BLOOD SPECIMENOrdering Facility: [facility] Address: [address] [place] [address] Performed By: #### 1 9123-9, 77657-6 ####LESLY HOLLAND [employer] LABCLIA [id number] [place] [address] [place] ALT With P-5'-P [Catalytic activity/Vol] 12 U/L Normal 7-38 [facility] Comment on above: Order Comment: Speci men Type: BLOOD SPECIMENOrdering Facility: [facility] Address: [address] [place] [address] Performed By: #### 1 9123-9, 22963-6 ####[facility] [place] LABCLIA [id number] [place] [address] [place] Anion gap [Moles/Vol] 12 mmol/L Normal 8-15 [facility] Comment on above: Order Comment: Speci men Type: BLOOD SPECIMENOrdering Facility: [facility] Address: [address] [place] [address] Performed By: #### 1 9123-9, 90396-8 ####[facility] [place] LABCLIA [id number] [place] [address] [place] AST With P-5'-P [Catalytic activity/Vol] 14 U/L Normal 13-35 [facility] Comment on above: Order Comment: Speci men Type: BLOOD SPECIMENOrdering Facility: [facility] Address: [address] [place] [address] Performed By: #### 1 23-9, 07892-0 ####[facility] [place] LABCLIA [id number] [place] [address] [place] Bilirubin [Mass/Vol] 0.3 mg/dL Normal 0.2-1.3 [facility] Comment on above: Order Comment: Speci men Type: BLOOD SPECIMENOrdering Facility: [facility] Address: [address] [place] [address] Performed By: #### 1 239, 33985-5 ####[facility] [place] LABCLIA [id number] [place] [address] [place] Calcium [Mass/Vol] 9.4 mg/dL Normal 8.5-10.2 [facility] Comment on above: Order Comment: Speci men Type: BLOOD SPECIMENOrdering Facility: [facility] Address: [address] [place] [address] Performed By: #### 1 239, 40900-5 ####[facility] [place] LABCLIA [id number] [place] [facility] [address] [place] Chloride [Moles/Vol] 100 mmol/L Normal 98-107 [facility] Comment on above: Order Comment: Speci men Type: BLOOD SPECIMENOrdering Facility: [facility] Address: [address] [place] [address] Performed By: #### 1 9123-9, 95344-2 ####[facility] [place] LABCLIA [id number] [place] [address] [place] CO2 [Moles/Vol] 27 mmol/L Normal 22-30 [facility] Comment on above: Order Comment: Speci men Type: BLOOD SPECIMENOrdering Facility: [facility] Address: [address] [place] [address] Performed By: #### 1 9123-9, ####[facility] Rad[employer]omyI LABCLIA [id number] [place] [address] [place] Creatinine [Mass/Vol] 1.03 mg/dL High 0.58-0.96 [facility] Comment on above: Order Comment: Speci men Type: BLOOD SPECIMENOrdering Facility: [facility] Address: [address] [place] [address] Performed By: #### 1 9123-9, ####[facility] [employer] LABCLIA [id number] [place] [address] [place] Creatinine and Glomerular filtration rate.predicted panel (S/P/Bld) 56 mL/min/1.73m??? Low >=60 [facility] Comment on above: Order Comment: Speci men Type: BLOOD SPECIMENOrdering Facility: [facility] Address: [address] [place] [address] Result Comment: Judith mated Glomerular Filtration Rate (eGFR) is calculated using the 2020 CKD-EPI creatinine equation. This equation utilizes serum creatinine, sex, and age as parameters. The creatinine assay has traceable calibration to isotope dilution-mass spectrometry. Refer to KDIGO guidelines for clinical interpretation. In patients with unstable renal function, e.g. those with acute kidney injury, the eGFR may not accurately reflect actual GFR. Performed By: #### 1 9123-9, ####[facility] LABCLIA [id number] [place] [address] [place] Glucose [Mass/Vol] 252 mg/dL High 74-99 [facility] Comment on above: Order Comment: Speci men Type: BLOOD SPECIMENOrdering Facility: [facility] Address: [address] [place] [address] Result Comment: The [place] Diabetes Association (ADA) provides guidance for cutoff values for fasting glucose and random glucose. The ADA defines fasting as no caloric intake for at least 8 hours. Fasting plasma glucose results between 100 to 125 mg/dL indicate increased risk for diabetes (prediabetes).Fasting plasma glucose results greater than or equal to 126 mg/dL meet the criteria for diagnosis of diabetes. In the absence of unequivocal hyperglycemia, results should be confirmed by repeat testing. In a patient with classic symptoms of hyperglycemia or hyperglycemic crisis, random plasma glucose results greater than or equal to 200 mg/dL meet the criteria for diagnosis of diabetes.Reference: Standards of Medical Care in Diabetes 2016, [place] Diabetes [employer]. Diabetes Care. 2016.39(Suppl 1). Performed By: #### 1 9123-9, ####[facility] LABCLIA [id number] [place] [address] [place] Potassium [Moles/Vol] 4.8 mmol/L Normal 3.7-5.1 [facility] Comment on above: Order Comment: Guera doll Type: BLOOD SPECIMENOrdering Facility: [facility] Address: [address] [place] [address] Performed By: #### 1 239, ####[facility] [employer] LABCLIA [id number] [place] [address] [place] Protein [Mass/Vol] 6.6 g/dL Normal 6.3-8.0 [facility] Comment on above: Order Comment: Seani sharmila Type: BLOOD SPECIMENOrdering Facility: [facility] Address: [address] [place] [address] Performed By: #### 1 239, 53055-6 ####[facility] [employer] LABCLIA [id number] [place] [address] [place] Sodium [Moles/Vol] 139 mmol/L Normal 136-144 [facility] Comment on above: Order Comment: Seani men Type: BLOOD SPECIMENOrdering Facility: [facility] Address: [address] [place] [address] Performed By: #### 1 23, 81942-4 ####[facility] [employer] LABCLIA [id number] [place] [address] [place] Urea nitrogen [Mass/Vol] 21 mg/dL Normal 7-21 [facility] Comment on above: Order Comment: Speci men Type: BLOOD SPECIMENOrdering Facility: [facility] Address: [address] [place] [address] Performed By: #### 1 9123-9, 81960-8 ####[facility] LABCLIA [id number] [place] [address] [place] MAGNESIUMon 06-20-2024 Magnesium [Mass/Vol] 1.3 mg/dL Low 1.7 - 2 .3 mg/dL [facility] Magnesium SerPl-mCncon 06-20 Magnesium [Mass/Vol] 1.3 mg/dL Low 1.7-2.3 [facility] Comment on above: Order Comment: Speci men Type: BLOOD SPECIMENOrdering Facility: [facility] Address: [address] [place] [address] Performed By: #### 1 9123-9, 25173-1 ####[facility] LABCLIA [id number] [place] [address] [place] No Panel Informationon 06-20 Interpretation and review of laboratory results Abnormal [facility] CNPNon 06-02-2024 CNPN Normal [facility] CNPNon 05-29-2024 CNPN Normal [facility] CNPNon 05-26-2024 CNPN Normal [facility] CNOVon 05-25-2024 CNOV Normal [facility] CNOV Normal [facility] CNPNon 05-24-2024 CNPN Normal [facility] CNOVSPon 05-23-2024 CNOVSP Normal [facility] CNPNon 05-23-2024 CNPN Normal [facility] CNPNon 05-19-2024 CNPN Normal [facility] CASE MANAGEMon 05-09-2024 CASE MANAGEM HNO ID: [id number] Author: ELVI WALDRON, ? Service: ? Author Type: ? Type: Care Mgt Progress Note Filed: 05/09/2024 10:39 Note Text: [facility] PRECERT NOTE [employer] approved Long-Term Facility for Giselle [place]. Precert approved through 05/15. For any additional questions regarding approvals, transport or care management needs, please contact the CM assigned to this patient in the Treatment Team. SIGNATURE: Elvi Waldron DATE: May 09, 2024 TIME: 10:39 AM Normal [facility] CBC panel Auto (Bld)on 05-09 Erythrocyte distribution width (RBC) [Ratio] 16.0 % High 11.5-15.0 [facility] Comment on above: Order Comment: Speci men Type: SWAB [facility] Address: [address] [place] [address] Performed By: #### S APCR #### [facility] CLIA [id number] [address] [place] [address] [place] [place] Hematocrit (Bld) [Volume fraction] 27.7 % Low 36.0-46.0 [facility] Comment on above: Order Comment: Speci men Type: SWAB Ordering Facility: [facility] Address: [address] [place] [address] Performed By: #### S APCR #### [facility] CLIA [id number] [address] [place] [address] [place] Hemoglobin (Bld) [Mass/Vol] 8.8 g/dL Low 11.5-15.5 [facility] Comment on above: Order Comment: Speci men Type: SWAB Ordering Facility: [facility] Address: [address] [place] [address] Performed By: #### S APCR #### [facility] CLIA [id number] [address] [place] [address] [place] MCH (RBC) [Entitic mass] 31.3 pg Normal 26.0-34.0 [facility] Comment on above: Order Comment: Speci men Type: SWAB Ordering Facility: [facility] Address: [address] [place], [place] [address] Performed By: #### S APCR #### [facility] CLIA [id number] [address] [place] [address] [place] MCHC (RBC) [Mass/Vol] 31.8 g/dL Normal 30.5-36.0 [facility] Comment on above: Order Comment: Speci men Type: SWAB Ordering Facility: [facility] Address: [address] [place] [address] Performed By: #### S APCR #### [facility] CLIA [id number] [address] [place] [address] [place] MCV (RBC) [Entitic vol] 98.6 fL Normal 80.0-100.[address] [facility] Comment on above: Order Comment: Speci men Type: SWAB Ordering Facility: [facility] Address: [address] [place] [address] Performed By: #### S APCR #### [facility] CLIA [id number] [address] [place] [address] [place] Nucleated RBC (Bld) [#/Vol] 10*3/uL Normal <0.01 [facility] Comment on above: Order Comment: Speci men Type: SWAB Ordering Facility: [facility] Address: [address] [place] [address] Performed By: #### S APCR #### [facility] CLIA [id number] [address] [place] [address] [place] Platelet mean volume (Bld) [Entitic vol] 11.1 fL Normal 9.0-12.7 [facility] Comment on above: Order Comment: Speci men Type: SWAB Ordering Facility: [facility] Address: [address] [place] [address] Performed By: #### S APCR #### [facility] CLIA [id number] [address] [place] [address] [place] Platelets (Bld) [#/Vol] 81 10*3/uL Low 150-[address] [facility] Comment on above: Order Comment: Speci men Type: SWAB Ordering Facility: [facility] Address: [address] [place] [address] Performed By: #### S APCR #### [facility] CLIA [id number] [address] [place] [address] [place] RBC (Bld) [#/Vol] 2.81 10*6/uL Low 3.90-5.20 [facility] Comment on above: Order Comment: Speci men Type: SWAB Ordering Facility: [facility] Address: [address] [place] [address] Performed By: #### S APCR #### [facility] CLIA [id number] [address] [place] [address] [place] WBC (Bld) [#/Vol] 4.05 10*3/uL Normal 3.70-11.00 [facility] Comment on above: Order Comment: Speci men Type: SWAB Ordering Facility: [facility] Address: [address] [place] [address] Performed By: #### S APCR #### [facility] CLIA [id number] [address] [place] [address] [facility] CNDSon 05-09-2024 CNDS HNO ID: [id number] Author: LOPEZ HAWKINS MD Service: Hospital Medicine Author Type: Physician Type: Discharge Summary Filed: 05/09/2024 18:13 Note Text: DISCHARGE SUMMARY PATIENT NAME: Pricila Hooker ADMISSION DATE: 05/02/2024 DISCHARGE DATE: 05/09/2024 ATTENDING PHYSICIAN: No att. providers found Code Status: DNR-CCA, DNI PCP: Vinh Van MD Highest Readmission Risk Score: 42 The 30 day readmissions risk score is derived from an internally validated risk model which evaluates patient level characteristics, utilization history, medication orders and lab results up until the day of discharge. Patients with a score of 39 or above are considered highest risk for readmission. Specific patient level drivers will be listed at the bottom of the summary. TRANSITIONS OF CARE CRITICAL ISSUES: TRISTAN MEDICATION CHANGES: Torsemide, valsartan Lab monitoring: Patient benefit from repeat CBC, CMP and electrolytes at nursing facility and next outpatient visit LABS AND PROCEDURES PENDING AT DISCHARGE: Test Results Not Yet Available from This Hospitalization: Please Review at Your Follow Up Appointment Order Current Status HSV PCR, MISCELLANEOUS SPECIMEN TYPES In process Follow-up: Patient will need to follow-up with primary care physician, oncology, pulmonology and gastroenterology soon after discharge from the hospital. REASON FOR HOSPITALIZATION/PRINCIPAL DIAGNOSES: Acute on chronic respiratory failure HOSPITAL PROBLEMS: Principal Problem: Acute on chronic respiratory failure with hypoxia and hypercapnia (HCC) (POA: Yes) Active Problems: Endometrial cancer (HCC) (POA: Yes) Thrombocytopenia (HCC) (POA: Yes) Chronic systolic CHF (congestive heart failure) (HCC) (POA: Yes) RSV (respiratory syncytial virus pneumonia) (POA: Yes) Community acquired bacterial pneumonia (POA: Yes) Metastatic cancer (HCC) (POA: Yes) Resolved Problems: Other specified anemias (POA: Yes) Hyponatremia (POA: Yes) Hyperkalemia (POA: Yes) JACY (acute kidney injury) (HCC) (POA: Yes) Transaminitis (POA: Yes) Acute respiratory failure with hypoxia and hypercapnia (HCC) (POA: Yes) RSV (acute bronchiolitis due to respiratory syncytial virus) (POA: Yes) Weakness (POA: Yes) ACP (advance care planning) (POA: Yes) Encounter for palliative care (POA: Yes) Morbid Obesity Class 3 HOSPITAL COURSE: Pricila Hooker 78 year old female with a PMHx significant for ALEXX, HTN, GERD, Chronic hypoxemic respiratory failure (3L NC), Metastatic endometrial adenocarcinoma w/ progression of R lung nodule s/p radiation (Follows with Dr. Branham. Previously recieving Carboplatin, paclitaxel and pembrolizumab; plan to start Gemcitabine 05/02/24, but cancelled d/t pt's sister having concerns for her weakness/ability to get patient to appointments), DM II, neuropathy, and COPD who presented to the [place] ED on 05/01/24 with worsening shortness of breath. She was found to be hypoxic and hypercarbic requiring BiPAP. She was recently treated for a UTI at [facility]. Admitted to the [place] ICU for further work-up and mangement of acute on chronic respiratory failure. Patient was admitted to the ICU for further treatment and evaluation and concern for possible pneumonia with acute hypoxic/hypercapnic respiratory failure. Patient was started on broad-spectrum antibiotics and was found to be positive for RSV. Palliative medicine was consulted. Patient showed incremental improvement in clinical course and was deemed stable for regular nursing floor on 05/03. PT/OT recommended intermediate facility. Patient was amenable for further rehab. Completed course of antibiotics and steroids while in the hospital. Seen by pulmonology and recommending outpatient sleep study for concern of ALEXX/OHS. Patient not interested in PAP therapy after discussion with Pulm. Would like to follow up with Dr. [place]. During patient's hospitalization was also noted to have elevated LFTs. Gastroenterology was consulted and felt that patient's elevated liver function was likely secondary to acute illness and component of MASLD. Recommended that patient follow-up with gastroenterology as an outpatient for repeat LFTs in 1 week and follow-up with them as an outpatient in 2 to 3 weeks. Patient's hospital course and need for follow-up were explained to patient who is in understanding. Patient will need to follow-up with primary care physician, oncology, pulmonology and gastroenterology soon after discharge from the hospital. OPERATIONS/PROCEDURE DURING THIS HOSPITALIZATION: * No surgery found * CONSULTS DURING HOSPITALIZATION: Treatment Team: Consulting: Bing Narayan MD Consulting: Amarjit Villanueva MD PATIENT CONDITION AT DISCHARGE: Stable DISCHARGE DISPOSITION: Long-Term Facility Physical Exam Performed Constitutional: In no apparent distress. Vital signs stable. On supplemental oxygen Eye: Pupils are equal. Extraocul (more content not included)... Normal [facility] Comprehensive metabolic 2000 panelon 05-09-2024 Albumin [Mass/Vol] 3.3 g/dL Low 3.9-4.9 [facility] Comment on above: Order Comment: Speci men Type: SWAB Ordering Facility: [facility] Address: [address] [place] [address] Performed By: #### S APCR #### [facility] CLIA [id number] [address] [place] [address] [place] [address] [place] ALP [Catalytic activity/Vol] 146 U/L High 34-123 [facility] Comment on above: Order Comment: Speci men Type: SWAB Ordering Facility: [facility] Address: [address] [place] [address] Performed By: #### S APCR #### [facility] CLIA [id number] [address] [place] [address] [place] ALT [Catalytic activity/Vol] 109 U/L High 7-38 [facility] Comment on above: Order Comment: Speci men Type: SWAB Ordering Facility: [facility] Address: [address] [place] [address] Performed By: #### S APCR #### [facility] CLIA [id number] [address] [place] [address] [place] Anion gap [Moles/Vol] 6 mmol/L Low 8-15 [facility] Comment on above: Order Comment: Speci men Type: SWAB Ordering Facility: [facility] Address: [address] [place] [address] Performed By: #### S APCR #### [facility] CLIA [id number] [address] [place] [address] [place] AST [Catalytic activity/Vol] 52 U/L High 13-35 [facility] Comment on above: Order Comment: Speci men Type: SWAB Ordering Facility: [facility] Address: [address] [place] [address] Performed By: #### S APCR #### [facility] CLIA [id number] [address] [place] [address] [place] Bilirubin [Mass/Vol] 0.4 mg/dL Normal 0.2-1.3 [facility] Comment on above: Order Comment: Speci men Type: SWAB Ordering Facility: [facility] Address: [address] [place] [address] Performed By: #### S APCR #### [facility] CLIA [id number] [address] [place] [address] [place] Calcium [Mass/Vol] 8.9 mg/dL Normal 8.5-10.2 [facility] Comment on above: Order Comment: Speci men Type: SWAB Ordering Facility: [facility] Address: [address] [place] [address] Performed By: #### S APCR #### [facility] CLIA [id number] [address] [place] [address] [place] Chloride [Moles/Vol] 90 mmol/L Low 98-107 [facility] Comment on above: Order Comment: Speci men Type: SWAB Ordering Facility: [facility] Address: [address] [place] [address] Performed By: #### S APCR #### [facility] CLIA [id number] [address] [place] [address] [place] CO2 [Moles/Vol] 39 mmol/L High 22-30 [facility] Comment on above: Order Comment: Speci men Type: SWAB Ordering Facility: [facility] Address: [address] [place] [address] Performed By: #### S APCR #### [facility] CLIA [id number] [address] [place] [address] [place] Creatinine [Mass/Vol] 1.11 mg/dL High 0.58-0.96 [facility] Comment on above: Order Comment: Speci men Type: SWAB Ordering Facility: [facility] Address: [address] [place] [address] Performed By: #### S APCR #### [facility] CLIA [id number] [address] [place] [address] [place] Creatinine and Glomerular filtration rate.predicted panel (S/P/Bld) 51 mL/min/1.73m??? Low >=60 [facility] Comment on above: Order Comment: Speci men Type: SWAB Ordering Facility: [facility] Address: [address] [place] [address] Result Comment: Judith mated Glomerular Filtration Rate (eGFR) is calculated using the 2020 CKD-EPI creatinine equation. This equation utilizes serum creatinine, sex, and age as parameters. The creatinine assay has traceable calibration to isotope dilution-mass spectrometry. Refer to KDIGO guidelines for clinical interpretation. In patients with unstable renal function, e.g. those with acute kidney injury, the eGFR may not accurately reflect actual GFR. Performed By: #### S APCR #### [facility] CLIA [id number] [address] [place] [address] [place] Glucose [Mass/Vol] 179 mg/dL High 74-99 [facility] Comment on above: Order Comment: Guera doll Type: SWAB Ordering Facility: [facility] Address: [address] [place] [address] Result Comment: The [place] Diabetes Association (ADA) provides guidance for cutoff values for fasting glucose and random glucose. The ADA defines fasting as no caloric intake for at least 8 hours. Fasting plasma glucose results between 100 to 125 mg/dL indicate increased risk for diabetes (prediabetes). Fasting plasma glucose results greater than or equal to 126 mg/dL meet the criteria for diagnosis of diabetes. In the absence of unequivocal hyperglycemia, results should be confirmed by repeat testing. In a patient with classic symptoms of hyperglycemia or hyperglycemic crisis, random plasma glucose results greater than or equal to 200 mg/dL meet the criteria for diagnosis of diabetes. Reference: Standards of Medical Care in Diabetes 2016, [place] [employer]. Diabetes Care. 2016.39(Suppl 1). Performed By: #### S APCR #### [facility] CLIA [id number] [address] [place] [address] [place] Potassium [Moles/Vol] 4.5 mmol/L Normal 3.7-5.1 [facility] Comment on above: Order Comment: Guera doll Type: SWAB Ordering Facility: [facility] Address: [address] [place], [place] [id number] Performed By: #### S APCR #### [facility] CLIA [id number] [address] [id number] [address] [place] Protein [Mass/Vol] 6.2 g/dL Low 6.3-8.0 [facility] Comment on above: Order Comment: Speci men Type: SWAB Ordering Facility: [facility] Address: [address] [place] [address] Performed By: #### S APCR #### [facility] CLIA [id number] [address] [place] [address] [place] Sodium [Moles/Vol] 135 mmol/L Low 136-144 [facility] Comment on above: Order Comment: Speci men Type: SWAB Ordering Facility: [facility] Address: [address] [place] [address] Performed By: #### S APCR #### [facility] CLIA [id number] [address] [place] [address] [place] Urea nitrogen [Mass/Vol] 28 mg/dL High 7-21 [facility] Comment on above: Order Comment: Speci men Type: SWAB Ordering Facility: [facility] Address: [address] [place] [address] Performed By: #### S APCR #### [facility] CLIA [id number] [address] [place] [address] [place] ARTERIAL BLOOD GASESon 05-08 Base excess Calc (Bld) [Moles/Vol] 16 mmol/L High 0-2 [facility] Comment on above: Order Comment: Speci men Type: ARTERIAL BLOOD SPECIMENOrdering Facility: [facility] Address: [address] [place] [address] Performed By: #### A LLBG ####[facility]ORYCL[facility] [id number] [facility] [id number] [place] [address] Carboxyhemoglobin (BldA) [Mass fraction] 1.5 % Normal 0.0-2.0 [facility] Comment on above: Order Comment: Speci men Type: ARTERIAL BLOOD SPECIMENOrdering Facility: [facility] Address: [address] [place] [address] Result Comment: Carb oxyhemoglobin Reference Range for Smokers: 2.0-8.0% Performed By: #### A LLBG ####[facility] [id number] [facility]OS[facility] [id number] [address] [address] CO2 (Bld) [Partial pressure] 65 mm Hg High 36-46 [facility] Comment on above: Order Comment: Speci men Type: ARTERIAL BLOOD SPECIMENOrdering Facility: [facility] Address: [address] [place] [address] Performed By: #### A LLBG ####[facility] [id number] [facility]AT[facility] [id number] [address] [address] CO2 adjusted to patient's actual temperature (Bld) [Partial pressure] Normal [facility] Comment on above: Order Comment: Speci men Type: ARTERIAL BLOOD SPECIMENOrdering Facility: [facility] Address: [address] [place] [address] Performed By: #### A LLBG ####[facility] [id number] [facility] [id number] [address] [address] HCO3 (Bld) [Moles/Vol] 43 mmol/L High 22-26 [facility] Comment on above: Order Comment: Speci men Type: ARTERIAL BLOOD SPECIMENOrdering Facility: [facility] Address: [address] [place] [address] Performed By: #### A LLBG ####[facility] [id number] [facility] [id number] [address] [address] Hemoglobin (Bld) [Mass/Vol] 11.7 g/dL Normal 11.5-15.5 [facility] Comment on above: Order Comment: Speci men Type: ARTERIAL BLOOD SPECIMENOrdering Facility: [facility] Address: [address] [place] [address] Performed By: #### A LLBG ####[facility] [id number] [facility] RES[facility]AT[facility] [id number] [address] [address] Lactate [Moles/Vol] 1.0 mmol/L Normal 0.5-2.2 [facility] Comment on above: Order Comment: Speci men Type: ARTERIAL BLOOD SPECIMENOrdering Facility: [facility] Address: [address] [place] [address] Performed By: #### A LLBG ####[place] [id number] [place] [address] RESPIRATORY [id number] [address] [address] LITERS 2 Liters/min [facility] Comment on above: Order Comment: Speci men Type: ARTERIAL BLOOD SPECIMENOrdering Facility: [facility] Address: [address] [place] [address] Performed By: #### A LLBG ####[address] [place] [address] RESPIRATORY [id number] [place] [id number] Methemoglobin (Bld) [Mass fraction] % Normal 0.0-1.5 [facility] Comment on above: Order Comment: Speci men Type: ARTERIAL BLOOD SPECIMENOrdering Facility: [facility] Address: [address] [place] [address] Performed By: #### A LLBG ####[address] [place] [address] RESPIRATORY [id number] [address] O2 THERAPY NC = Nasal Cannula [facility] Comment on above: Order Comment: Speci men Type: ARTERIAL BLOOD SPECIMENOrdering Facility: [facility] Address: [address] [place] [address] Performed By: #### A LLBG ####[id number] [facility] RESPIRAT[facility] [id number] [address] [address] Oxygen (Bld) [Partial pressure] 62 mm Hg Low 85-95 [facility] Comment on above: Order Comment: Speci men Type: ARTERIAL BLOOD SPECIMENOrdering Facility: [facility] Address: [address] [place] [address] Performed By: #### A LLBG ####[address] [place] [address] RESPIRATORY [id number] [address] [address] Oxygen adjusted to patient's actual temperature (Bld) [Partial pressure] Normal [facility] Comment on above: Order Comment: Speci men Type: ARTERIAL BLOOD SPECIMENOrdering Facility: [facility] Address: [address] [place] [address] Performed By: #### A LLBG ####[facility]PIRATORYCLIA [id number] [facility] [id number] [address] Oxyhemoglobin (BldA) [Mass fraction] 90 % Low 95-98 [facility] Comment on above: Order Comment: Speci men Type: ARTERIAL BLOOD SPECIMENOrdering Facility: [facility] Address: [address] [place] [address] Performed By: #### A LLBG ####[facility]PIRATORYCLIA [id number] [facility]OS[facility] RESPIRAT[facility] [id number] [address] [address] pH (Bld) 7.43 [pH] Normal 7.35-7.45 [facility] Comment on above: Order Comment: Speci men Type: ARTERIAL BLOOD SPECIMENOrdering Facility: [facility] Address: [address] [place] [id number] Performed By: #### A LLBG ####[facility] RESPIRATORYCLIA [id number] [facility] RESPIRAT[facility] [id number] [address] [address] pH adjusted to patient's actual temperature (Bld) [facility] Comment on above: Order Comment: Speci men Type: ARTERIAL BLOOD SPECIMENOrdering Facility: [facility] Address: [address] [place] [address] Performed By: #### A LLBG ####[facility] RESPIRATORYCLIA [id number] [facility] RESPIRAT[facility] [id number] [address] [address] Potassium [Moles/Vol] 4.5 mmol/L Normal 3.5-5.0 [facility] Comment on above: Order Comment: Speci men Type: ARTERIAL BLOOD SPECIMENOrdering Facility: [facility] Address: [address] [place] [address] Performed By: #### A LLBG ####[facility]PIRATORYCLIA [id number] [facility] RESPIRAT[facility] [id number] [address] [address] CBC panel Auto (Bld)on 05-08 Erythrocyte distribution width (RBC) [Ratio] 15.8 % High 11.5-15.0 [facility] Comment on above: Order Comment: Speci men Type: BLOOD SPECIMENOrdering Facility: [facility] Address: [address] [place] [address] Performed By: #### 5 8410-2 ####[facility] LABORATORYCLIA [id number] [address] Hematocrit (Bld) [Volume fraction] 29.5 % Low 36.0-46.0 [facility] Comment on above: Order Comment: Speci men Type: BLOOD SPECIMENOrdering Facility: [facility] Address: [address] [place] [address] Performed By: #### 5 8410-2 ####[facility] LABORATORYCLIA [id number] [address] Hemoglobin (Bld) [Mass/Vol] 9.2 g/dL Low 11.5-15.5 [facility] Comment on above: Order Comment: Speci men Type: BLOOD SPECIMENOrdering Facility: [facility] Address: [address] [place] [address] Performed By: #### 5 8410-2 ####[facility] LABORATORYCLIA [id number] [address] MCH (RBC) [Entitic mass] 31.3 pg Normal 26.0-34.0 [facility] Comment on above: Order Comment: Speci men Type: BLOOD SPECIMENOrdering Facility: [facility] Address: [address] [place] [address] Performed By: #### 5 8410-2 ####[facility] LABORATORYCLIA [id number] [address] MCHC (RBC) [Mass/Vol] 31.2 g/dL Normal 30.5-36.0 [facility] Comment on above: Order Comment: Speci men Type: BLOOD SPECIMENOrdering Facility: [facility] Address: [address] [place] [address] Performed By: #### 5 8410-2 ####[facility] LABORATORYCLIA [id number] [place] [address] [place] MCV (RBC) [Entitic vol] 100.3 fL High 80.0-100.[address] [facility] Comment on above: Order Comment: Speci men Type: BLOOD SPECIMENOrdering Facility: [facility] Address: [address] [place] [address] Performed By: #### 5 8410-2 ####[facility] LABORATORYCLIA [id number] [address] [place] Nucleated RBC (Bld) [#/Vol] 10*3/uL Normal <0.01 [facility] Comment on above: Order Comment: Speci men Type: BLOOD SPECIMENOrdering Facility: [facility] Address: [address] [place] [address] Performed By: #### 5 8410-2 ####[facility] LABORATORYCLIA [id number] [address] [place] Platelet mean volume (Bld) [Entitic vol] 11.2 fL Normal 9.0-12.7 [facility] Comment on above: Order Comment: Speci men Type: BLOOD SPECIMENOrdering Facility: [facility] Address: [address] [place] [address] Performed By: #### 5 8410-2 ####[facility] LABORATORYCLIA [id number] [place] [place] [address] [place] Platelets (Bld) [#/Vol] 83 10*3/uL Low 150-[address] [facility] Comment on above: Order Comment: Speci men Type: BLOOD SPECIMENOrdering Facility: [facility] Address: [address] [place] [address] Result Comment: No c lot detected. Performed By: #### 5 8410-2 ####[facility] LABORATORYCLIA [id number] [address] [place] RBC (Bld) [#/Vol] 2.94 10*6/uL Low 3.90-5.20 [facility] Comment on above: Order Comment: Speci men Type: BLOOD SPECIMENOrdering Facility: [facility] Address: [address] [place] [address] Performed By: #### 5 8410-2 ####[facility] LABORATORYCLIA [id number] [address] [place] WBC (Bld) [#/Vol] 4.42 10*3/uL Normal 3.70-11.00 [facility] Comment on above: Order Comment: Speci men Type: BLOOD SPECIMENOrdering Facility: [facility] Address: [address] [place] [address] Performed By: #### 5 8410-2 ####[facility]NON LABORATORYCLIA [id number] [address] CELIAC SCREENon 05-08-2024 GLIAD DEAMIDATED IGA QUAL Negative Normal Negative, Test not Indicated [facility] Comment on above: Order Comment: Speci men Type: SWAB [facility] Address: [address] [place] [address] Result Comment: This is used as an aid in diagnosis of celiac disease. Clinical correlation is required. The following results were obtained with an Danlan QUANTA Lite Gliadin IgA STACI Gliadin. Gliadin IgA values obtained with different manufacturers' assay methods may not be used interchangeably. The magnitude of the reported IgA levels cannot be correlated to an endpoint titer. Performed By: #### S APCR #### [facility] CLIA [id number] [address] [place] [address] [place] Gliadin peptide IgA Qn (S) 7 Units Normal <20 [facility] Comment on above: Order Comment: Speci [facility] Type: SWAB [facility] Address: [address] [place] [address] Performed By: #### S APCR #### [facility] CLIA [id number] [address] [place] [address] [place] INTERPRETATION No serological evide nce of celiac disease, however, if celiac disease is clinically suspected and patient is not on gluten-free diet, histological diagnosis may be considered. HLA testing may help with risk assessment. Normal [facility] Comment on above: Order Comment: Guera doll Type: SWAB [facility] Address: [address] [place] [address] Performed By: #### S APCR #### [facility] CLIA [id number] [address] [place] [address] [place] TRANSGLUTAMINASE IGA ABS INTERPRETATION Negative Normal Negative [facility] Comment on above: Order Comment: Guera doll Type: SWAB [facility] Address: [address] [place] [address] Result Comment: The following results were obtained with [employer]emo[employer] Lucena Researche R h-tTG IgA STACI.???R h-tTG IgA values obtained with different manufacturers' assay methods may not be used interchangeably. The magnitude of the reported IgA levels cannot be corelated to an endpoint???concentration. This is used as an aid in diagnosis of celiac disease. Clinical correlation is required. Performed By: #### S APCR #### [facility] CLIA [id number] [address] [place] [address] [place] tTG IgA Qn (S) <2 Normal <4 [facility] Comment on above: Order Comment: Guera doll Type: SWAB [facility] Address: [address] [place] [address] Performed By: #### S APCR #### [facility] CLIA [id number] [address] [place] [address] [place] CONSULT PROGon 05-08-2024 CONSULT PROG HNO ID: [id number] Author: BING NARAYAN MD Service: Gastroenterology Author Type: Physician Type: Consult Progress Note Filed: 05/09/2024 07:29 Note Text: GASTROENTEROLOGY CONSULT PROGRESS NOTE Patient Name: Pricila Hooker SERVICE DATE: May 08, 2024 SERVICE TIME: 9:44 AM ASSESSMENT Imaging evidence of cirrhosis - does have risk factors for MASLD - Meld-Na: 9 (05/08/24) Worsening LFTs Chronic anemia / Chronic thrombocytopenia Recurrent dysphagia Prior hx of retained food seen endoscopically (2022 / Recurrent abdominal bloating, N/V, early satiety - suspicious for gastroparesis Acute on chronic respiratory failure / COPD exacerbation / RSV / Pneumonia - s/p Rocephin x 7 days ALEXX / CHF / HTN Metastatic endometrial adenocarcinoma with mets to lung, liver and bone /carcinomatosis on Chemo PLAN - F/U AFP, SMA, SOCORRO, AMA, celiac panel, EBV, CMV, HSV antibodies - Rocephin as per IM - CHO diet - Monitor CBC, CMP, PT/INR - Recommend EGD with dilation as outpatient once acute issues resolve - Could consider gastric emptying study given #5 - Would recommend outpatient fibroscan INTERVAL HPI: LFT's are somewhat worse today- AP 156->159, ALT 124->150, AST 72-> 103. Tbili remains normal at 0.4. Patient denies abdominal pain, nausea or vomiting. No BM since admission, passing flatus. Tolerating diet without difficulty. Hepatic serology unrevealing thus far. PHYSICAL EXAM: Patient Vitals for the past 24 hrs: BP Temp Temp src Pulse Resp SpO2 05/08/24 0903 (!) 90/47 36.5 ?C (97.7 ?F) Axillary 86 16 98 % 05/08/24 0814 -- -- -- 84 18 100 % 05/08/24 0803 -- -- -- 80 18 98 % 05/07/24 2240 124/62 36.7 ?C (98.1 ?F) Oral 81 18 97 % 05/07/244 -- -- -- 80 18 96 % 05/07/24 195 100/57 36.7 ?C (98.1 ?F) Oral 82 18 96 % 05/07/24 1610 139/60 36.6 ?C (97.9 ?F) Oral 80 16 94 % 05/07/24 1526 -- -- -- 81 20 97 % 05/07/24 1139 -- -- -- 79 20 98 % 05/07/24 1136 100/54 36.6 ?C (97.9 ?F) Oral 76 16 97 % GENERAL: Alert AND oriented x 3. Cooperative. NAD NEURO: No asterixis EYES: No scleral icterus SKIN: [place] in color. No jaundice LUNGS: Clear to auscultation anteriorly CARDIAC: RRR ABDOMEN: BS x 4. Abdomen softly distended, non tender, no palpable masses or organomegaly. No guarding or rebound tenderness elicited EXTREMITIES: + BLE edema LABS: CBC, Coags, BMP, Mg, Phos Recent Labs 05/08/24 0736 05/07/24 0741 05/06/24 07 WBC 4.42 4.04 -- HB 9.2* 8.8* -- HCT 29.5* 27.6* -- PLT 83* 67* -- INR -- 1.2 -- NA 137 138 139 K 5.0 4.5 4.5 CHLOR 90* 93* 95* CO2 38* 37* 33* BUN 26* 25* 23* CREAT 1.07* 0.98* 0.98* GLUC 174* 175* 108* CA 8.9 8.9 9.3 Liver Function, Amylase, AND Lipase Recent Labs 05/08/24 0736 05/07/24 0741 05/06/24 0706 TPROT 6.4 6.4 6.4 ALB 3.5* 3.4* 3.2* ALT 150* 124* 117* AST 103* 72* 77* ALKPHOS 159* 156* 161* TBILI 0.4 0.4 0.4 MEDICATIONS: Current Facility-Administered Medications Medication Dose Route Frequency atorvastatin 40 mg tab(s) (LIPITOR) 40 mg ORAL AT BEDTIME ipratropium-albuterol 3 mL nebulizer solution (DUONEB) 3 mL INHALATION q 4 H PRN aspirin 81 mg chewable tab(s) 81 mg ORAL DAILY amitriptyline 50 mg tab(s) (ELAVIL) 50 mg ORAL AT BEDTIME dextrose 40 % 15 g 15 g ORAL PRN Or glucagon 1 mg injection 1 mg INTRAMUSCULAR PRN Or dextrose 10% iv bolus 12.5 g INTRAVENOUS PRN NaCl 0.9% iv flush bag 20 mL INTRAVENOUS PRN heparin 7,500 Units injection 7,500 Units SUBCUTANEOUS q 8 H miconazole 2 % 1 application topical powder 1 application TOPICAL BID gabapentin 100 mg cap(s) (NEURONTIN) 100 mg ORAL BID insulin lispro injection (rapid acting) (ADMElog) SUBCUTANEOUS w MEALS AND HS polyethylene glycol 3350 17 g packet 17 g ORAL DAILY PRN benzocaine-menthol 1 Lozenge (CEPACOL) 1 Lozenge MUCOUS MEMBRANE (TOPICAL MOUTH AND THROAT) q 2 H PRN benzonatate 100 mg cap(s) (TESSALON PERLE) 100 mg ORAL TID PRN guaiFENesin-dextromethorph an 100-10 mg/5 mL 10 mL oral liquid (ROBITUSSIN DM) 10 mL ORAL q 4 H PRN calcium carbonate 1,000 mg chewable tab(s) (TUMS) 1,000 mg ORAL TID PRN melatonin 3 mg tab(s) 3 mg ORAL AT BEDTIME PRN prochlorperazine 10 mg injection (COMPAZINE) 10 mg INTRAVENOUS q 6 H PRN acetaminophen 1,000 mg tab(s) (TYLENOL) 1,000 mg ORAL q 6 H PRN traMADol 50 mg tab(s) (ULTRAM) 50 mg ORAL q 6 H PRN ipratropium-albuterol 3 mL nebulizer solution (DUONEB) 3 mL INHALATION QID carvedilol 6.25 mg tab(s) (COREG) 6.25 mg ORAL BID w MEALS torsemide 20 mg tab(s) (DEMADEX) 20 mg ORAL DAILY valsartan 40 mg tab(s) (DIOVAN) 40 mg ORAL DAILY MCV 96 Latest Reference Range AND Units 01/13/24 11:06 02/02/24 09:58 03/15/24 10:53 03/23/24 10:08 04/14/24 15:02 04/25/24 13:39 05/01/24 20:49 Bilirubin, Total 0.2 - 1.3 mg/dL 0.4 0.3 0.3 0.3 0.3 0.3 0.3 Alkaline Phosphatase 34 - 123 U/L 100 79 73 67 72 76 141 (H) ALT (more content not included)... Normal [facility] Comprehensive metabolic 2000 panelon 05-08-2024 Albumin [Mass/Vol] 3.5 g/dL Low 3.9-4.9 [facility] Comment on above: Order Comment: Speci men Type: BLOOD SPECIMENOrdering Facility: [facility] Address: [address] [place] [address] Performed By: #### 2 4323-8 ####[facility] LABORATORYCLIA [id number] [address] [place] ALP [Catalytic activity/Vol] 159 U/L High 34-123 [facility] Comment on above: Order Comment: Speci men Type: BLOOD SPECIMENOrdering Facility: [facility] Address: [address] [place] [address] Performed By: #### 2 4323-8 ####MENARD LABORATORYCLIA [id number] [address] [place] ALT [Catalytic activity/Vol] 150 U/L High 7-38 [facility] Comment on above: Order Comment: Speci men Type: BLOOD SPECIMENOrdering Facility: [facility] Address: [address] [place] [address] Performed By: #### 2 4323-8 ####MEN[facility] LABORATORYCLIA [id number] [place] [address] [place] Anion gap [Moles/Vol] 9 mmol/L Normal 8-15 [facility] Comment on above: Order Comment: Speci men Type: BLOOD SPECIMENOrdering Facility: [facility] Address: [address] [place] [address] Performed By: #### 2 4323-8 ####MENARD LABORATORYCLIA [id number] [address] [place] AST [Catalytic activity/Vol] 103 U/L High 13-35 [facility] Comment on above: Order Comment: Speci men Type: BLOOD SPECIMENOrdering Facility: [facility] Address: [address] [place] [address] Performed By: #### 2 4323-8 ####MENARD LABORATORYCLIA [id number] [place] [address] [place] Bilirubin [Mass/Vol] 0.4 mg/dL Normal 0.2-1.3 [facility] Comment on above: Order Comment: Speci men Type: BLOOD SPECIMENOrdering Facility: [facility] Address: [address] [place] [address] Performed By: #### 2 4323-8 ####MENARD LABORATORYCLIA [id number] [place] [address] [place] Calcium [Mass/Vol] 8.9 mg/dL Normal 8.5-10.2 [facility] Comment on above: Order Comment: Speci men Type: BLOOD SPECIMENOrdering Facility: [facility] Address: [address] [place] [address] Performed By: #### 2 4323-8 ####MEN[facility] LABORATORYCLIA [id number] [place] [address] [place] Chloride [Moles/Vol] 90 mmol/L Low 98-107 [facility] Comment on above: Order Comment: Speci men Type: BLOOD SPECIMENOrdering Facility: [facility] Address: [address] [place] [address] Performed By: #### 2 4323-8 ####MEN[facility] LABORATORYCLIA [id number] [place] [address] [place] CO2 [Moles/Vol] 38 mmol/L High 22-30 [facility] Comment on above: Order Comment: Speci men Type: BLOOD SPECIMENOrdering Facility: [facility] Address: [address] [place] [address] Performed By: #### 2 4323-8 ####MENARD LABORATORYCLIA [id number] [place] [address] [place] Creatinine [Mass/Vol] 1.07 mg/dL High 0.58-0.96 [facility] Comment on above: Order Comment: Speci men Type: BLOOD SPECIMENOrdering Facility: [facility] Address: [address] [place] [address] Performed By: #### 2 4323-8 ####MENARD LABORATORYCLIA [id number] [place] [address] [place] Creatinine and Glomerular filtration rate.predicted panel (S/P/Bld) 53 mL/min/1.73m??? Low >=60 [facility] Comment on above: Order Comment: Speci men Type: BLOOD SPECIMENOrdering Facility: [facility] Address: [address] [place] [address] Result Comment: Judith mated Glomerular Filtration Rate (eGFR) is calculated using the 2020 CKD-EPI creatinine equation. This equation utilizes serum creatinine, sex, and age as parameters. The creatinine assay has traceable calibration to isotope dilution-mass spectrometry. Refer to KDIGO guidelines for clinical interpretation. In patients with unstable renal function, e.g. those with acute kidney injury, the eGFR may not accurately reflect actual GFR. Performed By: #### 2 4323-8 ####[facility] LABORATORYCLIA [id number] [place] [address] [place] Glucose [Mass/Vol] 174 mg/dL High 74-99 [facility] Comment on above: Order Comment: Guera doll Type: BLOOD SPECIMENOrdering Facility: [facility] Address: [address] [place] [address] Result Comment: The [place] Diabetes Association (ADA) provides guidance for cutoff values for fasting glucose and random glucose. The ADA defines fasting as no caloric intake for at least 8 hours. Fasting plasma glucose results between 100 to 125 mg/dL indicate increased risk for diabetes (prediabetes). Fasting plasma glucose results greater than or equal to 126 mg/dL meet the criteria for diagnosis of diabetes. In the absence of unequivocal hyperglycemia, results should be confirmed by repeat testing. In a patient with classic symptoms of hyperglycemia or hyperglycemic crisis, random plasma glucose results greater than or equal to 200 mg/dL meet the criteria for diagnosis of diabetes. Reference: Standards of Medical Care in Diabetes 2016, [place] Diabetes Association. Diabetes Care. 2016.39(Suppl 1). Performed By: #### 2 4323-8 ####[facility] LABORATORYCLIA [id number] [place] [id number] [place] Potassium [Moles/Vol] 5.0 mmol/L Normal 3.7-5.1 [facility] Comment on above: Order Comment: [facility] Type: BLOOD SPECIMENOrdering Facility: [facility] Address: [address] [place] [address] Performed By: #### 2 4323-8 ####VER[facility] LABORATORYCLIA [id number] [address] [place] Protein [Mass/Vol] 6.4 g/dL Normal 6.3-8.0 [facility] Comment on above: Order Comment: Speci men Type: BLOOD SPECIMENOrdering Facility: [facility] Address: [address] [place] [address] Performed By: #### 2 4323-8 ####MEN[facility] LABORATORYCLIA [id number] [address] [place] Sodium [Moles/Vol] 137 mmol/L Normal 136-144 [facility] Comment on above: Order Comment: Speci men Type: BLOOD SPECIMENOrdering Facility: [facility] Address: [address] [place] [address] Performed By: #### 2 4323-8 ####MENARD LABORATORYCLIA [id number] [address] [place] Urea nitrogen [Mass/Vol] 26 mg/dL High 7-21 [facility] Comment on above: Order Comment: Speci men Type: BLOOD SPECIMENOrdering Facility: [facility] Address: [address] [place] [address] Performed By: #### 2 4323-8 ####MENARD LABORATORYCLIA [id number] [address] [place] HSV PCR, MISCELLANEOUS SPECI MEN TYPESon 05-08-2024 HERPES SIMPLEX VIRUS SOURCE Plasma Normal [facility] Comment on above: Order Comment: Speci men Type: BLOOD SPECIMENOrdering Facility: [facility] Address: [address] [place] [address] Performed By: #### P CRHSV ####[facility] LABORATORIESCLIA [id number] [place] [address] HSV 1 SUBTYPE BY PCR Not detected Normal [facility] Comment on above: Order Comment: Speci men Type: BLOOD SPECIMENOrdering Facility: [facility] Address: [address] [place] [address] Performed By: #### P CRHSV ####[facility] LABORATORIESCLIA [id number] [place] [address] HSV 2 SUBTYPE BY PCR Not detected Normal [facility] Comment on above: Order Comment: Speci men Type: BLOOD SPECIMENOrdering Facility: [facility] Address: [address] [place] [address] Result Comment: INTE RPRETIVE INFORMATION: HSV-1 and HSV-2 Subtype by PCR A negative result does not rule out the presence of PCR inhibitors in the patient specimen or test-specific nucleic acid in concentrations below the level of detection by this test. This test was developed and its performance characteristics determined by [facility]. It has not been cleared or approved by the [place] Food and Drug Administration. This test was performed in a CLIA certified laboratory and is intended for clinical purposes. Performed By: [facility] [address] [place] [address] School Standards Coach: Oni Cruz MD, PhD CLIA Number: [id number] Performed By: #### P CRHSV ####[facility] LABORATORIESCLIA [id number] [place] [address] [facility] IgA [Mass/Vol] 463 mg/dL High 70-400 [facility] Comment on above: Order Comment: Speci men Type: BLOOD SPECIMENOrdering Facility: [facility] Address: [facility] [address] Performed By: #### 2 458-8 ####[facility] LABCLIA [id number] [place] [address] [place] NUTRITIONon 05-08-2024 NUTRITION HNO ID: [id number] Author: RODO WILKINSON RD Service: Nutrition Therapy Author Type: Registered Dietitian Type: Nutrition Filed: 05/08/2024 12:22 Note Text: NUTRITION THERAPY SCREEN NOTE SERVICE DATE: 05/08/2024 SERVICE TIME: 9:59 AM Care Plan: Continue current diet Monitor and Evaluation: Meet greater than 75% of estimated needs Physician progress notes and labs reviewed. Intake History: Current Nutrition Intake: (50-75% po intake of meals with most >75%. Dinner 100% yesterday) Current Intake Over time: Greater than or equal to 5 days LOS/D6. Tolerating diet. Diet Orders (From admission, onward) Start Ordered 05/03/24 0900 DIET CARBOHYDRATE CONTROLLED START NOW Question: Carbohydrate Control Answer: CONSISTENT CARBOHYDRATE 05/03/24 0854 Anthropometrics: Height: 170.2 cm (5' 7") Weight: 134.2 kg (295 lb 13.7 oz) Usual Weight: 131.5 kg (290 lb) 02/09/24. 11/19/23 288lbs Usual Weight Obtained From: Chart Review Weight Change: Not clinically significant weight loss MNT Billing: $ Initial Assessment: 1-15 minutes SIGNATURE: Rodo Wilkinson RD PATIENT NAME: Pricila Hooker DATE: May 08, 2024 TIME: 12:20 PM [facility] SOCIAL WORKon 05-08-2024 SOCIAL WORK HNO ID: [id number] Author: KARTHIK NUNES LISW Service: Palliative Care Author Type: Assistant Surveyor Type: Social Work Filed: 05/08/2024 16:28 Note Text: PALLIATIVE MEDICINE SOCIAL WORK PROGRESS NOTE Date of Service: May 08, 2024 Pricila Hooker is being seen for an initial/follow up Palliative Care Social Work visit. Today's visit includes: patient TOPICS ADDRESSED: coping/support and goals of care CLINICAL ASSESSMENT: SERGIO met with the pt at bedside to offer emotional support, assess for needs and symptoms and confirm goals of care. The pt has a hx of endometrial cancer. She follows with Dr. Branham. She was admitted for acute on chronic respiratory failure due to RSV. [facility] originally saw her in the ICU. Today the pt is on the regular nursing floor on 2L NC. She shared that she is feeling much better. She admitted to being very anxious in the ICU. She was scared that she got so quick so quickly. She is feeling hopeful now that she is feeling better. She shared that she got up with therapy and walked with her walker. She enjoyed being up and out of bed. She is looking forward to d/c to rehab soon to get stronger. She lives with her sister who is very supportive. The pt shared that her first line of treatment wasn't tolerated great. She reported bad side effects to Keytruda and thus that line was stopped. She has had one round of her second line of treatment, but was admitted to the hospital and hasn't been able to continue. She shared that she hopes she can get rescheduled again soon and "get it over with". She remains treatment oriented. She does not feel that she has symptoms at this time that warrant Pall Med f/u outp but information was provided for future reference. The pt was thankful for the visit. Anticipate d/c to SNF soon. INTERVENTIONS/REFERRALS TO BE PROVIDED:Monitor patient response to treatment, Communicate pertinent medical/psychosocial information to Palliative Medicine team, and Provide emotional support to patient/family PLAN: Will continue to monitor patient/family coping and remain available for psychosocial intervention as patient/family system integrate illness trajectory and its impact on their lives SERGIO Fleming [facility] THERAPY NTon 05-08-2024 THERAPY NT HNO ID: [id number] Author: KIT FAIRCHILD PT Service: Physical Therapy Author Type: Physical Therapist Type: Therapy (PT/OT/Speech/Resp) Filed: 05/08/2024 14:35 Note Text: -- Summary: PT treatment -- Physical Therapy Treatment Summary SERVICE DATE: 05/08/2024 SERVICE TIME: 1410 to 1425 ROOM: [id number] PT 6 Clicks Score: 18 DISCHARGE RECOMMENDATIONS Subacute/SNF Recommended Discharge Disposition Comments: Pt with balance and strength deficits, + falls risk, decreased activity tolerance indicating a need for continued daily skilled PT post acute stay. Recommended Discharge Disposition Due to: Functional deficits requiring ongoing therapy service prior to discharge home., Balance deficits, Functional status decline Anticipated Discharge Needs: Physical Assist at Home, Supervision at Home Physical Assist at Home for: Ambulation, Cleaning, Laundry, Meals, Medication Management, Stairs, Safety, Self Care, Shopping, Transportation Supervision at Home due to: Other: See Comment (initially for safety) Recommended Discharge Equipment: No equipment needs anticipated ASSESSMENT Response to Therapy Interventions: Good Participation in Activities, Requires Additional Time to Complete Activities, Improved Tolerance for Activity, Low Activity Tolerance, Notable Progression with Functional Activities/Skills Patient continues to function below baseline, requiring CGA/Danny for mobility with a wheeled walker and requiring intermittent seated rest due to fatigue. Increased insight into impairments and ability to identify when seated rest is required. PRECAUTIONS Fall Risk, Lines/Tubes/Drains CURRENT HOSPITAL COURSE RSV, acute respiratory failure Relevant Past Medical History: CA, [facility], GERD, DM 2, OA HOME LIVING Patient Lives With: (sister) Assistance Available: 24-Hour Entry To Home: No Stairs Number Of Stairs To Bed/Bath: 0 Tub/Shower Type: walk in, shower chair, grab bars Laundry: sister Equipment Owned: Cane, Commode- Bedside, Elevated Toilet Seat, Grab Bars- Shower, Grab Bars- Toilet, Home Oxygen, Shower Chair, Walker- Wheeled, Lift Chair PRIOR FUNCTIONAL LEVEL Within Functional Limits, Required Assistance Assistance Required With: Self Care, Shopping, Transportation, Safety, Laundry, Cleaning, Transfers, Ambulation, Meals, Medication Management Sister completets LB dressing, mostly shoes and socks but most recently has included pants based on debility. Some assist for showering. One fall in last 6 mos, slid down to floor to prevent fall when approaching chair a recently. Uses RW at all times. Sleeps in flat bed. Sister completes all IADLs. Wears 3 L oxygen. Sometimes shops and uses stores power scooter for mobility. Recently has been using BSC after chemo due to weakness. Sister supervises for transfers recently. Pt has necklace that she beeps for sister to help for transfer at night to toilet for safety. Pt lives in apt in basement and sister frequently checks on her. SUBJECTIVE Patient resting in bed. Alert and agreeable to PT treatment. THERAPY DIAGNOSIS Reduced mobility-other TREATMENT INTERVENTIONS Gait Training (28628), Therapeutic Activity (31122) Timed Code Treatment (minutes): 15 Skilled Treatment Time (minutes): 15 TRAINING AND EDUCATION PROVIDED Advanced Balance Activities, Assistive Device Use, Bed Mobility, Benefits of In-Hospital Mobility, Discharge Planning, Disease Specific Education, Expected Functional Level, Falls Prevention, Gait Pattern, Reduction of Deviations, Home Safety, Role of Physical Therapy, Standing Balance, Transfers, Treatment Protocol, Positioning THERAPEUTIC SKILLS USED Activity Dosing, Cues for Sequencing/Proper Technique for Activity, Cuing Tactile, Cuing Verbal, Cuing Visual, Physical Assist, Postural Alignment Correction, Management of Critical Lines, Tubes and/or Drains, Movement Facilitation FUNCTIONAL STATUS Bed Mobility Supine To Sit: Contact Guard Assistance, Additional Information HOB elevated with use of bed rail. Cues for positioning. Sit to Supine: Stand By Assistance, Additional Information HOB flat without bed rail. Cues for set-up Scooting: Contact Guard Assistance, Stand By Assistance, Additional Information from seated position, anterior in preparation for transfers. Transfers Sit To Stand: Moderate Assistance, Additional Information, Contact Guard Assistance modA from standard height with patient able to elevate, but unable to transition to walker. CGA from elevated EOB with cues for safe hand placement. Completed 3 x throughout [facility]. Stand To Sit: Contact Guard Assistance, Stand By Assistance, Additional Information cues for safe hand placement and eccentric control. Bed to Chair Gait Contact Guard Assistance (more content not included)... [facility] THERAPY NT HNO ID: [id number] Author: MAINE ARREAGA OTR/Ubaldo Service: Occupational Therapy Author Type: Occupational Therapist Type: Therapy (PT/OT/Speech/Resp) Filed: 05/08/2024 12:28 Note Text: -- Summary: OTprecert note -- Occupational Therapy Treatment Summary SERVICE DATE: 05/08/2024 SERVICE TIME: 1104 to 1132 ROOM: [place] [address]- OT 6 Clicks Score: 17 DISCHARGE RECOMMENDATIONS Subacute/SNF Recommended Discharge Disposition Due to: Functional deficits requiring ongoing therapy service prior to discharge home., ADL impairment, Functional status decline, Requires multiple therapy disciplines Anticipated Discharge Needs: Physical Assist at Home, Supervision at Home Physical Assist at Home for: Ambulation, Cleaning, Laundry, Meals, Medication Management, Stairs, Safety, Self Care, Shopping, Transportation Supervision at Home due to: Other: See Comment (initially for safety) ASSESSMENT Response to Therapy Interventions: Good Participation in Activities, On-Track to Achieve Discharge Goals PRECAUTIONS Fall Risk, Lines/Tubes/Drains CURRENT HOSPITAL COURSE RSV, acute respiratory failure Relevant Past Medical History: CA, CHHR, GERD, DM 2, OA HOME LIVING Patient Lives With: (sister) Assistance Available: 24-Hour Entry To Home: No Stairs Number Of Stairs To Bed/Bath: 0 Tub/Shower Type: walk in, shower chair, grab bars Laundry: sister Equipment Owned: Cane, Commode- Bedside, Elevated Toilet Seat, Grab Bars- Shower, Grab Bars- Toilet, Home Oxygen, Shower Chair, Walker- Wheeled, Lift Chair PRIOR FUNCTIONAL LEVEL Within Functional Limits, Required Assistance Assistance Required With: Self Care, Shopping, Transportation, Safety, Laundry, Cleaning, Transfers, Ambulation, Meals, Medication Management Sister completets LB dressing, mostly shoes and socks but most recently has included pants based on debility. Some assist for showering. One fall in last 6 mos, slid down to floor to prevent fall when approaching chair a recently. Uses RW at all times. Sleeps in flat bed. Sister completes all IADLs. Wears 3 L oxygen. Sometimes shops and uses stores power scooter for mobility. Recently has been using BSC after chemo due to weakness. Sister supervises for transfers recently. Pt has necklace that she beeps for sister to help for transfer at night to toilet for safety. Pt lives in apt in basement and sister frequently checks on her. SUBJECTIVE Patient cleared by nursing supine in bed agreeable to OT COGNITION Responsiveness: Alert, Awake Follows Commands: Cueing Needed Cueing to Follow Commands: Minimum THERAPY DIAGNOSIS Reduced mobility-other, Decreased activities of daily living (ADL), Muscle Weakness (generalized), General symptoms and signs-other TREATMENT INTERVENTIONS Therapeutic Exercise (14444), Self Mcfp Management (73464) Timed Code Treatment (minutes): 28 Skilled Treatment Time (minutes): 28 TRAINING AND EDUCATION PROVIDED Assistive Device Use, Bed Mobility, Benefits of In-Hospital Mobility, Discharge Planning, Exercise Program, Functional Mobility Involving ADLs, Grooming Tasks, Lower Extremity Dressing, Role of Occupational Therapy, Safety/Judgment, Sitting Balance to Improve Jones with ADLs/Self-Care, Standing Balance to Improve [place] with ADLs/Self-Care, Transfer - Sit to Stand THERAPEUTIC SKILLS USED Activity Dosing, Cues for Sequencing/Proper Technique for Activity, Cuing Tactile, Cuing Verbal, Physical Assist FUNCTIONAL STATUS Activities of Daily Living Assist Level Additional Information Feeding Independent Grooming Minimal Assistance, Additional Information anticipated [place] walker level at sink, set up seated EOB Bathing Upper Body Stand By Assistance, Additional Information seated per clinical judgement Bathing Lower Body Moderate Assistance, Additional Information per clinical judgement seated Dressing Upper Body Stand By Assistance, Additional Information seated EOB Dressing Lower Body Moderate Assistance Toileting Minimal Assistance, Additional Information per clinical judgement Mobility Assist Level Additional Information Bed Mobility Supine To Sit: Contact Guard Assistance, Additional Information HOB elevated use of side rail Sit To Supine: Contact Guard Assistance Sit to Stand Minimal Assistance, Additional Information EOB to walker Stand to Sit Contact Guard Assistance, Additional Information cues to reach back Bed to Chair Toilet/Commode Shower Functional Mobility Minimal Assistance, Additional Information Functional Mobility Device: Wheeled Walker 10 side steps Exercise: Completed B UE AROM times 15 reps seated EOB Shoulder flexion/extension, shoulder abduction/adduction, elbow flexion/extension, sup/pro, wrist flexion/extension, and digi (more content not included)... Normal [facility] A1AT SerPl-mCncon 05-07-2024 Alpha 1 antitrypsin [Mass/Vol] 192 mg/dL Normal 90-200 [facility] Comment on above: Order Comment: Speci men Type: SWAB Ordering Facility: [facility] Address: [address] [place] [address] Performed By: #### S APCR #### [facility] CLIA [id number] [address] [place] [address] [place] AFP SerPl-mCncon 05-07-2024 AFP [Mass/Vol] 3.58 ng/mL Normal <9.00 [facility] Comment on above: Order Comment: Speci men Type: BLOOD SPECIMENOrdering Facility: [facility] Address: [address] [place] [address] Result Comment: The Alpha-Fetoprotein test was performed using the Stephanie Un[employer] DxI immunoenzymatic assay. Results obtained with different assay methods or kits cannot be used interchangeably. Performed By: #### 1 834-1 ####[facility] LABCLIA [id number] [address] [place] CBC panel Auto (Bld)on 05-07 Erythrocyte distribution width (RBC) [Ratio] 15.5 % High 11.5-15.0 [facility] Comment on above: Order Comment: Speci men Type: BLOOD SPECIMENOrdering Facility: [facility] Address: [address] [place] [address] Performed By: #### 5 8410-2 ####[facility]ATORYCLIA [id number] [address] [place] Hematocrit (Bld) [Volume fraction] 27.6 % Low 36.0-46.0 [facility] Comment on above: Order Comment: Speci men Type: BLOOD SPECIMENOrdering Facility: [facility] Address: [address] [place] [address] Performed By: #### 5 8410-2 ####[facility] LABORATORYCLIA [id number] [place] [address] [place] Hemoglobin (Bld) [Mass/Vol] 8.8 g/dL Low 11.5-15.5 [facility] Comment on above: Order Comment: Speci men Type: BLOOD SPECIMENOrdering Facility: [facility] Address: [address] [place] [address] Performed By: #### 5 8410-2 ####[facility]ATORYCLIA [id number] [address] [place] MCH (RBC) [Entitic mass] 30.9 pg Normal 26.0-34.0 [facility] Comment on above: Order Comment: Speci men Type: BLOOD SPECIMENOrdering Facility: [facility] Address: [address] [place] [address] Performed By: #### 5 8410-2 ####[facility]ATORYCLIA [id number] [address] MCHC (RBC) [Mass/Vol] 31.9 g/dL Normal 30.5-36.0 [facility] Comment on above: Order Comment: Speci men Type: BLOOD SPECIMENOrdering Facility: [facility] Address: [address] [place] [address] Performed By: #### 5 8410-2 ####[facility]ORATORYCLIA [id number] [address] MCV (RBC) [Entitic vol] 96.8 fL Normal 80.0-100.[address] [facility] Comment on above: Order Comment: Speci men Type: BLOOD SPECIMENOrdering Facility: [facility] Address: [address] [place] [address] Performed By: #### 5 8410-2 ####[facility]ATORYCLIA [id number] [address] [place] Nucleated RBC (Bld) [#/Vol] 10*3/uL Normal <0.01 [facility] Comment on above: Order Comment: Speci men Type: BLOOD SPECIMENOrdering Facility: [facility] Address: [address] [place] [address] Performed By: #### 5 8410-2 ####[facility]ORATORYCLIA [id number] [address] [place] Platelet mean volume (Bld) [Entitic vol] 11.2 fL Normal 9.0-12.7 [facility] Comment on above: Order Comment: Speci men Type: BLOOD SPECIMENOrdering Facility: [facility] Address: [address] [place] [address] Performed By: #### 5 8410-2 ####[facility]ORATORYCLIA [id number] [address] [place] Platelets (Bld) [#/Vol] 67 10*3/uL Low 150-[address] [facility] Comment on above: Order Comment: Speci men Type: BLOOD SPECIMENOrdering Facility: [facility] Address: [address] [place] [address] Result Comment: No c lot detected. Performed By: #### 5 8410-2 ####[facility]ATORYCLIA [id number] [address] [place] RBC (Bld) [#/Vol] 2.85 10*6/uL Low 3.90-5.20 [facility] Comment on above: Order Comment: Speci men Type: BLOOD SPECIMENOrdering Facility: [facility] Address: [address] [place] [address] Performed By: #### 5 8410-2 ####[facility]ORATORYCLIA [id number] [address] WBC (Bld) [#/Vol] 4.04 10*3/uL Normal 3.70-11.00 [facility] Comment on above: Order Comment: Speci men Type: BLOOD SPECIMENOrdering Facility: [facility] Address: [address] [place] [address] Performed By: #### 5 8410-2 ####[facility]ORATORYCLIA [id number] [address] CK SerPl-cCncon 05-07-2024 CK [Catalytic activity/Vol] 29 U/L Low 42-196 [facility] Comment on above: Order Comment: Speci men Type: BLOOD SPECIMENOrdering Facility: [facility] Address: [address] [place] [address] Performed By: #### 2 4323-8, 2157-6, 68641-4, 2276-4 ####[facility]ORATORYCLIA [id number] [address] CONSULTon 05-07-2024 CONSULT HNO ID: [id number] Author: BING NARAYAN MD Service: Gastroenterology Author Type: Physician Type: Consults Filed: 05/07/2024 11:48 Note Text: GASTROENTEROLOGY CONSULT NOTE PATIENT NAME: Pricila Hooker SERVICE DATE: May 07, 2024 SERVICE TIME: 10:00 AM PRIMARY CARE PHYSICIAN: Vinh Van MD ATTENDING PHYSICIAN: Ailyn Hawkins MD REASON FOR ADMISSION: Acute on chronic respiratory failure, RSV, pneumonia, COPD exacerbation REASON FOR CONSULTATION: Elevated LFTs, cirrhosis on imaging HPI: This is a 78 year old female with a past medical history significant for ALEXX, HTN, HPL, GERD, CHF, chronic respiratory failure (3 L oxygen), metastatic endometrial adenocarcinoma on chemotherapy, type 2 diabetes, neuropathy, COPD who presented to [place] ED on 05/01/24 with worsening dyspnea. She was transferred to [place] for BIPAP therapy (hypoxic and hypercarbic respiratory failure). Found to have RSV, pneumonia, COPD exacerbation. A GI evaluation has been requested for elevated LFTs and cirrhosis on imaging Denies abdominal pain Does note intermittent issues with nausea and vomiting Typically BM daily Denies BRB, melena Has noted issues with early satiety and abdominal bloating Denies heartburn, acid reflux Does note solid-food dysphagia intermittently (~ once per week)- has had episodes of food regurgitation Weight has been stable Follows with Dr. 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 ALLERGIES: ALLERGIES No Known Allergies PAST MEDICAL HISTORY: 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 CHF (congestive heart failure) (HCC) Immunotherapy induced Diabetes mellitus without mention of complication Endometrial cancer (HCC) GERD (gastroesophageal reflux disease) Hemorrhoids Hypercholesteremia Hypertension Neuropathy Obesity Osteoarthritis of multiple joints PAST SURGICAL HISTORY: PAST SURGICAL HISTORY Procedure Laterality Date ABDOMINAL SURGERY HX ARTHRP KNE CONDYLEANDPLATU MEDIALANDLAT COMPARTMENTS 05/11/2011 Knee replacement, total right ARTHRP KNE CONDYLEANDPLATU MEDIALANDLAT COMPARTMENTS 01/2011 left CATARACT EXTRACTION HX Left COLONOSCOPY FLX DX W/COLLJ SPEC WHEN PFRMD 12/28/2007 Colonoscopy COLONOSCOPY FLX DX W/COLLJ SPEC WHEN PFRMD 06/17/2012 Colonoscopy COLONOSCOPY FLX DX W/COLLJ SPEC WHEN PFRMD 11/05/2017 Colonoscopy EGD W/O BRSH SPEC VARICIES INJ 11/25/2022 EYE SURGERY HX JOINT REPLACEMENT HX LAPS SURG CHOLECYSTECTOMY W/CHOLANGIOGRAPHY 01/04/2007 LAPS TOTAL HYSTERECT 250 GM/< W/RMVL TUBE/OVARY 07/24/2022 Exam under anesthesia, total laparoscopic hysterectomy, bilateral salpingo-oophorectomy, sentinel lymph node mapping with excision of bilateral pelvic sentinel lymph nodes, and extensive lysis of adhesions. PAST SURGICAL HISTORY OF N/A 05/11/2023 hx of heart cath MEDICATIONS: Prior to Admission Medications: carvedilol (COREG) 3.125 mg tablet, Take 2 tablets by mouth two times a day with meals. (Patient taking differently: Take 6.25 mg by mouth two times a day with meals. Hold if SBP < 100), Disp: 180 tablet, Rfl: 3, Past Week gabapentin (NEURONTIN) 100 mg capsule, Take 1 capsule by mouth two times a day for 180 days., Disp: 180 capsule, Rfl: 1, Past Week DULoxetine (CYMBALTA) 60 mg capsule, Take 1 capsule by mouth once daily, Disp: 30 capsule, Rfl: 0, Past Week fluticasone-vilanterol (BREO ELLIPTA) 100-25 mcg/dose inhaler, Inhale 1 Inhalation as instructed once daily., Disp: 1 Each, Rfl: 5, Past Week amitriptyline (ELAVIL) 50 mg tablet, Take 1 tablet by mouth daily at bedtime., Disp: 30 tablet, Rfl: 5, Past Week triamcinolone acetonide (KENALOG) 0.1 % ointment, Apply to affected area two times a day., Disp: 80 g, Rfl: 2, Past Week glimepiride (AMARYL) 4 mg tablet, Take 1 tablet by mouth two times a day with meals., Disp: 180 tablet, Rfl: 3, Past Week atorvastatin (LIPITOR) 40 mg tablet, TAKE 1 TABLET BY MOUTH ONCE DAILY AT BEDTIME FOR CHOLESTEROL, Disp: 30 tablet, Rfl: 11, Past Week metFORMIN (GLUCOPHAGE) 500 mg tablet, Take 2 tablets by mouth two times a day with meals. ., Disp: 360 tablet, Rfl: 3, Past Week aspirin 81 mg cap, Take 81 mg by mouth once daily., Disp: , Rfl: , Past Week Magnesium Chloride (SLOW-MAG) 71.5 mg TbEC, Take 1 tablet by mouth twice daily., Disp: 60 tablet, Rfl: 5, Past Week lidocaine-prilocaine (EMLA) 2.5-2.5 % cream, Apply to affected area as needed., Disp: 30 g, Rfl: 2, Past Week dulaglutide (TRULICITY) 3 mg/0.5 mL pen injector, Inject 3 mg subcutaneously one time a week. Patient Assistance Medication., Disp: 2 mL, Rfl: 1, Past Week iv contrast (will be provided with r (more content not included)... Normal [facility] Ceruloplasmin SerPl-mCncon 0 05-07-2024 Ceruloplasmin [Mass/Vol] 28 mg/dL Normal 16-45 [facility] Comment on above: Order Comment: Speci men Type: SWAB Ordering Facility: [facility] Address: [address] [place] [address] Performed By: #### S APCR #### [facility] CLIA [id number] [address] [place] [address] [place] Comprehensive metabolic 2000 panelon 05-07-2024 Albumin [Mass/Vol] 3.4 g/dL Low 3.9-4.9 [facility] Comment on above: Order Comment: Speci men Type: BLOOD SPECIMENOrdering Facility: [facility] Address: [address] [place] [address] Performed By: #### 2 4323-8, 2156-6, 65106-8, 6-4 ####[facility]ATORYCLIA [id number] [place] [address] [place] ALP [Catalytic activity/Vol] 156 U/L High 34-123 [facility] Comment on above: Order Comment: Speci men Type: BLOOD SPECIMENOrdering Facility: [facility] Address: [address] [place] [address] Performed By: #### 2 4323-8, 2156-6, 00825-0, 6-4 ####[facility]ORATORYCLIA [id number] [place] [address] [place] ALT [Catalytic activity/Vol] 124 U/L High 7-38 [facility] Comment on above: Order Comment: Speci men Type: BLOOD SPECIMENOrdering Facility: [facility] Address: [address] [place] [id number] Performed By: #### 2 4323-8, 2156-6, 05086-2, 2275-4 ####[facility]ORATORYCLIA [id number] [place] [address] [place] [facility] Anion gap [Moles/Vol] 8 mmol/L Normal 8-15 [facility] Comment on above: Order Comment: Speci men Type: BLOOD SPECIMENOrdering Facility: [facility] Address: [facility] [address] Performed By: #### 2 4323-8, 2156-6, 29245-8, 2275-4 ####[facility] LABORATORYCLIA [id number] [place] [address] [place] AST [Catalytic activity/Vol] 72 U/L High 13-35 [facility] Comment on above: Order Comment: Speci men Type: BLOOD SPECIMENOrdering Facility: [facility] Address: [facility] [address] Performed By: #### 2 4323-8, 2156-6, 99155-1, 2275-4 ####[facility]ORATORYCLIA [id number] [place] [address] [place] Bilirubin [Mass/Vol] 0.4 mg/dL Normal 0.2-1.3 [facility] Comment on above: Order Comment: Speci men Type: BLOOD SPECIMENOrdering Facility: [facility] Address: [address] [place] [address] Performed By: #### 2 4323-8, 2156-6, 26873-8, 6-4 ####[facility]ORATORYCLIA [id number] [place] [address] [facility] Calcium [Mass/Vol] 8.9 mg/dL Normal 8.5-10.2 [facility] Comment on above: Order Comment: Speci men Type: BLOOD SPECIMENOrdering Facility: [facility] Address: [address] [place] [address] Performed By: #### 2 4323-8, 2157-6, 17823-4, 6-4 ####[facility]ORATORYCLIA [id number] [place] [address] [place] Chloride [Moles/Vol] 93 mmol/L Low 98-107 [facility] Comment on above: Order Comment: Speci men Type: BLOOD SPECIMENOrdering Facility: [facility] Address: [address] [place] [address] Performed By: #### 2 4323-8, 7-6, 91899-6, 6-4 ####[facility]ORATORYCLIA [id number] [place] [address] [place] CO2 [Moles/Vol] 37 mmol/L High 22-30 [facility] Comment on above: Order Comment: Speci men Type: BLOOD SPECIMENOrdering Facility: [facility] Address: [address] [place] [address] Performed By: #### 2 4323-8, 7-6, 78755-7, 6-4 ####[facility]ORATORYCLIA [id number] [place] [id number] [place] Creatinine [Mass/Vol] 0.98 mg/dL High 0.58-0.96 [facility] Comment on above: Order Comment: Speci men Type: BLOOD SPECIMENOrdering Facility: [facility] Address: [address] [place] [address] Performed By: #### 2 4323-8, 7-6, 44624-2, 6-4 ####[facility]ORATORYCLIA [id number] [place] [id number] [place] Creatinine and Glomerular filtration rate.predicted panel (S/P/Bld) 59 mL/min/1.73m??? Low >=60 [facility] Comment on above: Order Comment: Speci men Type: BLOOD SPECIMENOrdering Facility: [facility] Address: [address] [place] [address] Result Comment: Judith mated Glomerular Filtration Rate (eGFR) is calculated using the 2020 CKD-EPI creatinine equation. This equation utilizes serum creatinine, sex, and age as parameters. The creatinine assay has traceable calibration to isotope dilution-mass spectrometry. Refer to KDIGO guidelines for clinical interpretation. In patients with unstable renal function, e.g. those with acute kidney injury, the eGFR may not accurately reflect actual GFR. Performed By: #### 2 4323-8, 7-6, 98628-0, 2275-4 ####[facility]ORATORYCLIA [id number] [place] [address] [place] Glucose [Mass/Vol] 175 mg/dL High 74-99 [facility] Comment on above: Order Comment: Guera doll Type: BLOOD SPECIMENOrdering Facility: [facility] Address: [address] [place] [address] Result Comment: The [place] Diabetes Association (ADA) provides guidance for cutoff values for fasting glucose and random glucose. The ADA defines fasting as no caloric intake for at least 8 hours. Fasting plasma glucose results between 100 to 125 mg/dL indicate increased risk for diabetes (prediabetes). Fasting plasma glucose results greater than or equal to 126 mg/dL meet the criteria for diagnosis of diabetes. In the absence of unequivocal hyperglycemia, results should be confirmed by repeat testing. In a patient with classic symptoms of hyperglycemia or hyperglycemic crisis, random plasma glucose results greater than or equal to 200 mg/dL meet the criteria for diagnosis of diabetes. Reference: Standards of Medical Care in Diabetes 2016, [place] [employer]. Diabetes Care. 2016.39(Suppl 1). Performed By: #### 2 4323-8, 2156-6, 80014-7, 2275-05 ####[facility] LABORATORYCLIA [id number] [place] [address] [place] Potassium [Moles/Vol] 4.5 mmol/L Normal 3.7-5.1 [facility] Comment on above: Order Comment: Guera doll Type: BLOOD SPECIMENOrdering Facility: [facility] Address: [address] [place] [address] Performed By: #### 2 4323-8, 2156-6, 27281-9, 2275- ####[facility]ORATORYCLIA [id number] [place] [address] [place] Protein [Mass/Vol] 6.4 g/dL Normal 6.3-8.0 [facility] Comment on above: Order Comment: Speci men Type: BLOOD SPECIMENOrdering Facility: [facility] Address: [address] [place] [address] Performed By: #### 2 4323-8, 7-6, 46041-4, 6-4 ####[facility] LABORATORYCLIA [id number] [place] [address] [place] [facility] Sodium [Moles/Vol] 138 mmol/L Normal 136-144 [facility] Comment on above: Order Comment: Speci men Type: BLOOD SPECIMENOrdering Facility: [facility] Address: [address] [place] [address] Performed By: #### 2 4323-8, 7-6, 30686-8, 6-4 ####[facility] LABORATORYCLIA [id number] [place] [address] [place] Urea nitrogen [Mass/Vol] 25 mg/dL High 7-21 [facility] Comment on above: Order Comment: Speci men Type: BLOOD SPECIMENOrdering Facility: [facility] Address: [address] [place] [address] Performed By: #### 2 4323-8, 7-6, 73139-5, 6-4 ####[facility] LABORATORYCLIA [id number] [place] [address] [place] Ferritin SerPl-mCncon 2024 Ferritin [Mass/Vol] 1347.0 ng/mL High 14.7-205.1 [facility] Comment on above: Order Comment: Speci men Type: BLOOD SPECIMENOrdering Facility: [facility] Address: [address] [place] [address] Performed By: #### 2 4323-8, 7-6, 02096-8, 2276-4 ####[facility] LABORATORYCLIA [id number] [place] [address] [place] Folate SerPl-mCncon 05-08-19 25 Folate [Mass/Vol] 11.8 ng/mL Normal >4.7 [facility] Comment on above: Order Comment: Speci men Type: BLOOD SPECIMENOrdering Facility: [facility] Address: [address] [place] [address] Performed By: #### 2 132-9, 2284-8 ####[facility] LABORATORYCLIA [id number] [place] [address] [place] Folate [Mass/Vol] Normal [facility] Comment on above: Order Comment: Speci men Type: BLOOD SPECIMENOrdering Facility: [facility] Address: [address] [place] [address] Result Comment: INVA LID Performed By: #### 2 132-9, 2283-8 ####MENARD LABORATORYCLIA [id number] [place] [address] [place] HERPES SIMPLEX TYPE 1 AND 2 IGon 05-07-2024 HSV IGG 1 QUALITATIVE Positive Abnormal Negative [facility] Comment on above: Order Comment: Speci men Type: SWAB [facility] Address: [address] [place] [address] Result Comment: The result suggests recent or past infection with HSV-1. Performed By: #### S APCR #### [facility] CLIA [id number] [address] [place] [address] [place] HSV IGG 2 QUALITATIVE Negative Normal Negative [facility] Comment on above: Order Comment: Speci men Type: SWAB [facility] Address: [address] [place] [address] Result Comment: No e vidence of past history of HSV-2 infection. Negative result cannot exclude HSV-2 infection if the specimen collected 4-6 weeks after a primary episode of HSV-2 infection. Early institution of antiviral agents may delay or abrogate specific humoral response. Performed By: #### S APCR #### [facility] CLIA [id number] [address] [place] [address] [place] Iron and Iron binding capaci ty panelon 05-07-2024 Iron [Mass/Vol] 121 ug/dL Normal 41-186 [facility] Comment on above: Order Comment: Speci men Type: BLOOD SPECIMENOrdering Facility: [facility] Address: [address] [place] [address] Performed By: #### 2 4323-8, 2157-6, 73514-8, 2276-4 ####[facility] LABORATORYCLIA [id number] [place] [address] [facility] Iron binding capacity [Mass/Vol] 194 ug/dL Low 232-386 [facility] Comment on above: Order Comment: Speci men Type: BLOOD SPECIMENOrdering Facility: [facility] Address: [address] [place] [address] Performed By: #### 2 4323-8, 2156-6, 04499-6, 6-4 ####[facility] LABORATORYCLIA [id number] [place] [address] [facility] [place] Iron/TIBC [Molar ratio] 62.4 % High 15.0-57.[address] [facility] Comment on above: Order Comment: Speci men Type: BLOOD SPECIMENOrdering Facility: [facility] Address: [address] [place] [address] Performed By: #### 2 4323-8, 7-6, 57086-5, 6-4 ####[facility]NON LABORATORYCLIA [id number] [place] [id number] [facility] [place] Mitochondria Ab IF Ql (S)on 05-07-2024 Mitochondria M2 Ab IA Qn (S) 3.6 Units Normal <=20.0 [facility] Comment on above: Order Comment: Speci [facility] Type: BLOOD SPECIMENOrdering Facility: [facility] Address: [address] [place] [address] Performed By: #### 1 7284-1 ####[facility] LABCLIA [id number] [address] [place] Mitochondria M2 Ab Ql (S) Negative Normal Negative [facility] Comment on above: Order Comment: Speci men Type: BLOOD SPECIMENOrdering Facility: [facility] Address: [address] [place] [address] Result Comment: Anti -mitochondrial antibody test is used as an aid in diagnosis of primary biliary cholangitis. Clinical correlation is required. Performed By: #### 1 7284-1 ####[facility] LABCLIA [id number] NEHEMIAH CHEEK [id number] [place], [place] [address] [place] PT panel Coag (PPP)on 2024 INR Coag (PPP) [Relative time] 1.2 {INR} Normal 0.9-1.3 [facility] Comment on above: Order Comment: Guera doll Type: BLOOD SPECIMENOrdering Facility: [facility] Address: [address] [place] [address] Result Comment: Aiyana min K Antagonist (VKA) Therapeutic Range: INR 2 to 3 (Target INR of 2.5) Note: For patients treated with VKA drugs, such as warfarin, the [place] [employer] 2012 Guideline recommends a therapeutic INR range of 2 to 3 (target INR of 2.5). This recommendation includes high-risk patients with antiphospholipid syndrome with previous arterial or venous thromboembolism, current-generation mechanical or bioprosthetic aortic heart valve replacement. Note: Patients with mechanical aortic valve replacement and additional risk factors for thromboembolic events (atrial fibrillation, previous thromboembolism, LV dysfunction, hypercoagulable conditions) or an older generation mechanical AVR (i.e., ball in-Cage) or any mechanical MVR should have a INR therapeutic range of 2.5 to 3.5 (target INR of 3). Nilda GH, et al. Chest 2012, 141:7S-47S Sepideh RA, et al. [facility] 2017, 70: 252-289 Performed By: #### 3 4528-0 ####VER[facility] LABORATORYCLIA [id number] [place] [id number] [place] PT Coag (PPP) [Time] 12.7 s Normal 9.7-13.0 [facility] Comment on above: Order Comment: Guera doll Type: BLOOD SPECIMENOrdering Facility: [facility] Address: [address] [place] [address] Performed By: #### 3 4528-0 ####VERNON LABORATORYCLIA [id number] [place] [id number] [place] Vit B12 SerPl-mCncon 025 Cobalamin (Vitamin B12) [Mass/Vol] 1089 pg/mL Normal 232-1245 [facility] Comment on above: Order Comment: Seani sharmila Type: BLOOD SPECIMENOrdering Facility: [facility] Address: [address] [place] [address] Performed By: #### 2 132-9, 228-8 ####MENARD LABORATORYCLIA [id number] [place] [address] [place] Cobalamin (Vitamin B12) [Mass/Vol] Normal [facility] Comment on above: Order Comment: Speci men Type: BLOOD SPECIMENOrdering Facility: [facility] Address: [address] [place] [address] Result Comment: INVA LID Performed By: #### 2 132-9, 2283-8 ####MENARD LABORATORYCLIA [id number] [place] [address] [place] SOCORRO BY IFA SCREENon 05-07-19 25 Nuclear Ab pattern (S) [Interp] Multiple nuclear dots Normal [facility] Comment on above: Order Comment: Seani sharmila Type: SWAB [facility] Address: [address] [place] [address] Performed By: #### S APCR #### [facility] CLIA [id number] [address] [place] [address] [place] Nuclear Ab Ql (S) Positive Abnormal Negative [facility] Comment on above: Order Comment: Guera sharmila Type: SWAB [facility] Address: [address] [place] [address] Result Comment: Anti -nuclear antibody test is used as an aid in diagnosis of systemic autoimmune diseases. Where positive and clinically warranted, follow-up using disease-specific testing is recommended. Low positive titers are not uncommon with advanced age, certain chronic infections, and malignancies among others. Test methodology: Indirect fluorescence immunoassay (IFA) using HEp-2 cells. 1:80 Performed By: #### S APCR #### [facility] CLIA [id number] [address] [place] [address] [place] CMV IgM Qnon 05-06-2024 CMV IGM, QUAL Negative Normal Negative [facility] Comment on above: Order Comment: Seani men Type: BLOOD SPECIMENOrdering Facility: [facility] Address: [address] [place] [address] Result Comment: No s erological evidence of recent exposure to Cytomegalovirus. Performed By: #### 1 6128-1, 13785-8, 7853-5 ####[facility] LABCLIA [id number] [place] [address] [place] Comprehensive metabolic 2000 panelon 05-06-2024 Albumin [Mass/Vol] 3.2 g/dL Low 3.9-4.9 [facility] Comment on above: Order Comment: Speci men Type: BLOOD SPECIMENOrdering Facility: [facility] Address: [address] [place] [address] Performed By: #### 2 4323-8 ####MENARD LABORATORYCLIA [id number] [address] ALP [Catalytic activity/Vol] 161 U/L High 34-123 [facility] Comment on above: Order Comment: Speci men Type: BLOOD SPECIMENOrdering Facility: [facility] Address: [address] [place] [address] Performed By: #### 2 4323-8 ####MENARD LABORATORYCLIA [id number] [address] [place] ALT [Catalytic activity/Vol] 117 U/L High 7-38 [facility] Comment on above: Order Comment: Speci men Type: BLOOD SPECIMENOrdering Facility: [facility] Address: [address] [place] [address] Performed By: #### 2 4323-8 ####MEN[facility] LABORATORYCLIA [id number] [place] [address] [place] [facility] Anion gap [Moles/Vol] 11 mmol/L Normal 8-15 [facility] Comment on above: Order Comment: Speci men Type: BLOOD SPECIMENOrdering Facility: [facility] Address: [address] [place] [address] Performed By: #### 2 4323-8 ####MEN[facility] LABORATORYCLIA [id number] [place] [address] [place] AST [Catalytic activity/Vol] 77 U/L High 13-35 [facility] Comment on above: Order Comment: Speci men Type: BLOOD SPECIMENOrdering Facility: [facility] Address: [address] [place] [address] Performed By: #### 2 4323-8 ####[facility] LABORATORYCLIA [id number] [place] [address] [place] Bilirubin [Mass/Vol] 0.4 mg/dL Normal 0.2-1.3 [facility] Comment on above: Order Comment: Speci men Type: BLOOD SPECIMENOrdering Facility: [facility] Address: [address] [place] [address] Performed By: #### 2 4323-8 ####MEN[facility] LABORATORYCLIA [id number] [place] [address] [place] Calcium [Mass/Vol] 9.3 mg/dL Normal 8.5-10.2 [facility] Comment on above: Order Comment: Speci men Type: BLOOD SPECIMENOrdering Facility: [facility] Address: [address] [place] [address] Performed By: #### 2 4323-8 ####MENARD LABORATORYCLIA [id number] [place] [address] [place] Chloride [Moles/Vol] 95 mmol/L Low 98-107 [facility] Comment on above: Order Comment: Speci men Type: BLOOD SPECIMENOrdering Facility: [facility] Address: [address] [place] [address] Performed By: #### 2 4323-8 ####MEN[facility] LABORATORYCLIA [id number] [place] [address] [place] CO2 [Moles/Vol] 33 mmol/L High 22-30 [facility] Comment on above: Order Comment: Speci men Type: BLOOD SPECIMENOrdering Facility: [facility] Address: [address] [place] [address] Performed By: #### 2 4323-8 ####MEN[facility] LABORATORYCLIA [id number] [place] [address] [place] Creatinine [Mass/Vol] 0.98 mg/dL High 0.58-0.96 [facility] Comment on above: Order Comment: Guera doll Type: BLOOD SPECIMENOrdering Facility: [facility] Address: [address] [place] [address] Performed By: #### 2 4323-8 ####MENARD LABORATORYCLIA [id number] [place] [address] [place] Creatinine and Glomerular filtration rate.predicted panel (S/P/Bld) 59 mL/min/1.73m??? Low >=60 [facility] Comment on above: Order Comment: Guera doll Type: BLOOD SPECIMENOrdering Facility: [facility] Address: [address] [place] [address] Result Comment: Judith mated Glomerular Filtration Rate (eGFR) is calculated using the 2020 CKD-EPI creatinine equation. This equation utilizes serum creatinine, sex, and age as parameters. The creatinine assay has traceable calibration to isotope dilution-mass spectrometry. Refer to KDIGO guidelines for clinical interpretation. In patients with unstable renal function, e.g. those with acute kidney injury, the eGFR may not accurately reflect actual GFR. Performed By: #### 2 4323-8 ####MEN[facility] LABORATORYCLIA [id number] [place] [address] [place] Glucose [Mass/Vol] 108 mg/dL High 74-99 [facility] Comment on above: Order Comment: Seanodalis doll Type: BLOOD SPECIMENOrdering Facility: [facility] Address: [address] [place] [address] Result Comment: The [place] [employer] (ADA) provides guidance for cutoff values for fasting glucose and random glucose. The ADA defines fasting as no caloric intake for at least 8 hours. Fasting plasma glucose results between 100 to 125 mg/dL indicate increased risk for diabetes (prediabetes). Fasting plasma glucose results greater than or equal to 126 mg/dL meet the criteria for diagnosis of diabetes. In the absence of unequivocal hyperglycemia, results should be confirmed by repeat testing. In a patient with classic symptoms of hyperglycemia or hyperglycemic crisis, random plasma glucose results greater than or equal to 200 mg/dL meet the criteria for diagnosis of diabetes. Reference: Standards of Medical Care in Diabetes 2016, [place] [employer]. Diabetes Care. 2016.39(Suppl 1). Performed By: #### 2 4323-8 ####MENARD LABORATORYCLIA [id number] [place] [address] [place] Potassium [Moles/Vol] 4.5 mmol/L Normal 3.7-5.1 [facility] Comment on above: Order Comment: Speci men Type: BLOOD SPECIMENOrdering Facility: [facility] Address: [address] [place] [address] Performed By: #### 2 4323-8 ####MEN[facility] LABORATORYCLIA [id number] [place] [address] [place] Protein [Mass/Vol] 6.4 g/dL Normal 6.3-8.0 [facility] Comment on above: Order Comment: Speci men Type: BLOOD SPECIMENOrdering Facility: [facility] Address: [address] [place] [address] Performed By: #### 2 4323-8 ####MENARD LABORATORYCLIA [id number] [address] [place] Sodium [Moles/Vol] 139 mmol/L Normal 136-144 [facility] Comment on above: Order Comment: Speci men Type: BLOOD SPECIMENOrdering Facility: [facility] Address: [address] [place] [address] Performed By: #### 2 4323-8 ####MENARD LABORATORYCLIA [id number] [address] [place] Urea nitrogen [Mass/Vol] 23 mg/dL High 7-21 [facility] Comment on above: Order Comment: Speci men Type: BLOOD SPECIMENOrdering Facility: [facility] Address: [address] [place] [address] Performed By: #### 2 4323-8 ####MENARD LABORATORYCLIA [id number] [address] [place] EBV capsid IgM Qn (S)on EBV VCA IGM, QUAL Negative Normal Negative [facility] Comment on above: Order Comment: Speci men Type: SWAB [facility] Address: [address] [place] [address] Result Comment: No s erological evidence of recent EBV infection. Performed By: #### S APCR #### [facility] CLIA [id number] [address] [place] [address] [place] HAV IgM Ser Qlon 05-06-2024 HAV IgM Ql (S) Negative Normal Negative [facility] Comment on above: Order Comment: Speci men Type: SWAB [facility] Address: [address] [place] [address] Result Comment: No e vidence of recent infection with Hepatitis A virus. Performed By: #### S APCR #### [facility] CLIA [id number] [address] [place] [address] [place] HBV core IgM Ser Qlon 2024 HBV core IgM Ql (S) Negative Normal Negative [facility] Comment on above: Order Comment: Speci [facility] Type: SWAB [facility] Address: [address] [place] [address] Result Comment: No e vidence of recent infection with Hepatitis B virus. Should recent infection be suspected, repeat testing may be considered 3-4 weeks after this draw. Performed By: #### S APCR #### [facility] CLIA [id number] [address] [place] [address] [place] HBV surface Ag Ser Qlon HBV surface Ag Ql (S) Negative Normal Negative [facility] Comment on above: Order Comment: Speci men Type: SWAB [facility] Address: [address] [place] [address] Performed By: #### S APCR #### [facility] CLIA [id number] [address] [place] [address] [place] HCV Ab Ser Qlon 05-06-2024 HCV Ab Ql (S) Negative Normal Negative [facility] Comment on above: Order Comment: Speci men Type: BLOOD SPECIMENOrdering Facility: [facility] Address: [address] [place] [address] Result Comment: The result suggests no evidence of active infection with Hepatitis C virus. Should recent infection be suspected, repeat testing may be considered 4-6 weeks after this draw. Performed By: #### 1 6128-1, 58053-5, 7853-5 ####[facility] LABCLIA [id number] [address] [address] [place] Smooth muscle Ab Ql (S)on ACTIN SMOOTH MUSCLE IGG QUALITATIVE Negative Normal Negative [facility] Comment on above: Order Comment: Speci men Type: BLOOD SPECIMENOrdering Facility: [facility] Address: [address] [place] [address] Performed By: #### 1 6128-1, 26382-8, 7853-5 ####[facility] LABCLIA [id number] [address] [place] ACTIN SMOOTH MUSCLE IGG QUANTITATIVE 7 Units Normal <20 [facility] Comment on above: Order Comment: Speci men Type: BLOOD SPECIMENOrdering Facility: [facility] Address: [address] [place] [address] Performed By: #### 1 6128-1, 12139-1, 7853-5 ####[facility] LABCLIA [id number] [place] [address] [place] Basic metabolic 2000 panelon 05-05-2024 Anion gap [Moles/Vol] 6 mmol/L Low 8-15 [facility] Comment on above: Order Comment: Speci men Type: BLOOD SPECIMENOrdering Facility: [facility] Address: [address] [place] [address] Performed By: #### 2 4321-2 ####[facility] LABORATORYCLIA [id number] [place] [address] [place] Calcium [Mass/Vol] 9.8 mg/dL Normal 8.5-10.2 [facility] Comment on above: Order Comment: Speci men Type: BLOOD SPECIMENOrdering Facility: [facility] Address: [address] [place] [address] Performed By: #### 2 4321-2 ####MENARD LABORATORYCLIA [id number] [address] [place] [facility] Chloride [Moles/Vol] 99 mmol/L Normal 98-107 [facility] Comment on above: Order Comment: Specodalis men Type: BLOOD SPECIMENOrdering Facility: [facility] Address: [address] [place] [address] Performed By: #### 2 4321-2 ####MEN[facility] LABORATORYCLIA [id number] [place] [address] [place] CO2 [Moles/Vol] 32 mmol/L High 22-30 [facility] Comment on above: Order Comment: Speci men Type: BLOOD SPECIMENOrdering Facility: [facility] Address: [address] [place] [address] Performed By: #### 2 4321-2 ####MENARD LABORATORYCLIA [id number] [address] Creatinine [Mass/Vol] 0.96 mg/dL Normal 0.58-0.96 [facility] Comment on above: Order Comment: Speci men Type: BLOOD SPECIMENOrdering Facility: [facility] Address: [address] [place] [address] Performed By: #### 2 4321-2 ####[facility] LABORATORYCLIA [id number] [address] Creatinine and Glomerular filtration rate.predicted panel (S/P/Bld) 61 mL/min/1.73m??? Normal >=60 [facility] Comment on above: Order Comment: Specodalis men Type: BLOOD SPECIMENOrdering Facility: [facility] Address: [address] [place] [address] Result Comment: Judith mated Glomerular Filtration Rate (eGFR) is calculated using the 2020 CKD-EPI creatinine equation. This equation utilizes serum creatinine, sex, and age as parameters. The creatinine assay has traceable calibration to isotope dilution-mass spectrometry. Refer to KDIGO guidelines for clinical interpretation. In patients with unstable renal function, e.g. those with acute kidney injury, the eGFR may not accurately reflect actual GFR. Performed By: #### 2 4321-2 ####MEN[facility] LABORATORYCLIA [id number] [place] [address] [place] Glucose [Mass/Vol] 116 mg/dL High 74-99 [facility] Comment on above: Order Comment: Guera doll Type: BLOOD SPECIMENOrdering Facility: [facility] Address: [address] [place] [address] Result Comment: The [place] Diabetes Association (ADA) provides guidance for cutoff values for fasting glucose and random glucose. The ADA defines fasting as no caloric intake for at least 8 hours. Fasting plasma glucose results between 100 to 125 mg/dL indicate increased risk for diabetes (prediabetes). Fasting plasma glucose results greater than or equal to 126 mg/dL meet the criteria for diagnosis of diabetes. In the absence of unequivocal hyperglycemia, results should be confirmed by repeat testing. In a patient with classic symptoms of hyperglycemia or hyperglycemic crisis, random plasma glucose results greater than or equal to 200 mg/dL meet the criteria for diagnosis of diabetes. Reference: Standards of Medical Care in Diabetes 2016, [place] [employer]. Diabetes Care. 2016.39(Suppl 1). Performed By: #### 2 4321-2 ####[facility] LABORATORYCLIA [id number] [place] [address] [place] Potassium [Moles/Vol] 4.7 mmol/L Normal 3.7-5.1 [facility] Comment on above: Order Comment: Guera doll Type: BLOOD SPECIMENOrdering Facility: [facility] Address: [address] [place] [address] Performed By: #### 2 4321-2 ####MEN[facility] LABORATORYCLIA [id number] [place] [address] [place] Sodium [Moles/Vol] 137 mmol/L Normal 136-144 [facility] Comment on above: Order Comment: Guera doll Type: BLOOD SPECIMENOrdering Facility: [facility] Address: [address] [place] [address] Performed By: #### 2 4321-2 ####[facility] LABORATORYCLIA [id number] [place] [address] [place] Urea nitrogen [Mass/Vol] 23 mg/dL High 7-21 [facility] Comment on above: Order Comment: Seani men Type: BLOOD SPECIMENOrdering Facility: [facility] Address: [address] [place] [address] Performed By: #### 2 4321-2 ####MEN[facility] LABORATORYCLIA [id number] [address] CBC panel Auto (Bld)on 05-05 Erythrocyte distribution width (RBC) [Ratio] 15.8 % High 11.5-15.0 [facility] Comment on above: Order Comment: Speci men Type: BLOOD SPECIMENOrdering Facility: [facility] Address: [address] [place] [address] Performed By: #### 5 8410-2 ####MENARD LABORATORYCLIA [id number] [address] Hematocrit (Bld) [Volume fraction] 27.4 % Low 36.0-46.0 [facility] Comment on above: Order Comment: Speci men Type: BLOOD SPECIMENOrdering Facility: [facility] Address: [address] [place] [address] Performed By: #### 5 8410-2 ####MENARD LABORATORYCLIA [id number] [address] Hemoglobin (Bld) [Mass/Vol] 8.7 g/dL Low 11.5-15.5 [facility] Comment on above: Order Comment: Speci men Type: BLOOD SPECIMENOrdering Facility: [facility] Address: [address] [place] [address] Performed By: #### 5 8410-2 ####MEN[facility] LABORATORYCLIA [id number] [address] MCH (RBC) [Entitic mass] 31.4 pg Normal 26.0-34.0 [facility] Comment on above: Order Comment: Speci men Type: BLOOD SPECIMENOrdering Facility: [facility] Address: [address] [place] [address] Performed By: #### 5 8410-2 ####[facility] LABORATORYCLIA [id number] [address] MCHC (RBC) [Mass/Vol] 31.8 g/dL Normal 30.5-36.0 [facility] Comment on above: Order Comment: Speci men Type: BLOOD SPECIMENOrdering Facility: [facility] Address: [address] [place] [address] Performed By: #### 5 8410-2 ####MENARD LABORATORYCLIA [id number] [place] [address] [place] MCV (RBC) [Entitic vol] 98.9 fL Normal 80.0-100.[address] [facility] Comment on above: Order Comment: Speci men Type: BLOOD SPECIMENOrdering Facility: [facility] Address: [address] [place] [address] Performed By: #### 5 8410-2 ####MENARD LABORATORYCLIA [id number] [address] [place] Nucleated RBC (Bld) [#/Vol] 0.03 10*3/uL High <0.01 [facility] Comment on above: Order Comment: Speci men Type: BLOOD SPECIMENOrdering Facility: [facility] Address: [address] [place] [address] Performed By: #### 5 8410-2 ####MENARD LABORATORYCLIA [id number] [address] [place] Platelet mean volume (Bld) [Entitic vol] 11.0 fL Normal 9.0-12.7 [facility] Comment on above: Order Comment: Speci men Type: BLOOD SPECIMENOrdering Facility: [facility] Address: [address] [place] [address] Performed By: #### 5 8410-2 ####MENARD LABORATORYCLIA [id number] [place] [address] [place] Platelets (Bld) [#/Vol] 59 10*3/uL Low 150-[address] [facility] Comment on above: Order Comment: Speci men Type: BLOOD SPECIMENOrdering Facility: [facility] Address: [address] [place] [address] Result Comment: No c lot detected. Performed By: #### 5 8410-2 ####MENARD LABORATORYCLIA [id number] [place] [address] [place] RBC (Bld) [#/Vol] 2.77 10*6/uL Low 3.90-5.20 [facility] Comment on above: Order Comment: Speci men Type: BLOOD SPECIMENOrdering Facility: [facility] Address: [address] [place] [address] Performed By: #### 5 8410-2 ####VERNON LABORATORYCLIA [id number] [place] [id number] [place] WBC (Bld) [#/Vol] 4.09 10*3/uL Normal 3.70-11.00 [facility] Comment on above: Order Comment: Speci men Type: BLOOD SPECIMENOrdering Facility: [facility] Address: [address] [place] [address] Performed By: #### 5 8410-2 ####VERNON LABORATORYCLIA [id number] [place] [address] [place] Basic metabolic 2000 panelon 05-04-2024 Anion gap [Moles/Vol] 7 mmol/L Low 8-15 [facility] Comment on above: Order Comment: Speci men Type: SWAB [facility] Address: [address] [place] [address] Performed By: #### S APCR #### [facility] CLIA [id number] [address] [place] [address] [place] Calcium [Mass/Vol] 9.7 mg/dL Normal 8.5-10.2 [facility] Comment on above: Order Comment: Speci men Type: SWAB [facility] Address: [address] [place] [address] Performed By: #### S APCR #### [facility] CLIA [id number] [address] [place] [address] [place] Chloride [Moles/Vol] 101 mmol/L Normal 98-107 [facility] Comment on above: Order Comment: Speci men Type: SWAB [facility] Address: [address] [place] [address] Performed By: #### S APCR #### [facility] CLIA [id number] [facility] [place] [address] [place] CO2 [Moles/Vol] 29 mmol/L Normal 22-30 [facility] Comment on above: Order Comment: Speci men Type: SWAB [facility] Address: [address] [place] [address] Performed By: #### S APCR #### [facility] CLIA [id number] [address] [place] [address] [place] Creatinine [Mass/Vol] 1.00 mg/dL High 0.58-0.96 [facility] Comment on above: Order Comment: Speci men Type: SWAB [facility] Address: [address] [place] [address] Performed By: #### S APCR #### [facility] CLIA [id number] [address] [place] [address] [place] Creatinine and Glomerular filtration rate.predicted panel (S/P/Bld) 58 mL/min/1.73m??? Low >=60 [facility] Comment on above: Order Comment: Speci men Type: SWAB [facility] Address: [address] [place] [address] Result Comment: Judith mated Glomerular Filtration Rate (eGFR) is calculated using the 2020 CKD-EPI creatinine equation. This equation utilizes serum creatinine, sex, and age as parameters. The creatinine assay has traceable calibration to isotope dilution-mass spectrometry. Refer to KDIGO guidelines for clinical interpretation. In patients with unstable renal function, e.g. those with acute kidney injury, the eGFR may not accurately reflect actual GFR. Performed By: #### S APCR #### [facility] CLIA [id number] [address] [place] [address] [place] Glucose [Mass/Vol] 107 mg/dL High 74-99 [facility] Comment on above: Order Comment: Speci men Type: SWAB [facility] Address: [address] [place] [address] Result Comment: The [place] Diabetes [employer] (ADA) provides guidance for cutoff values for fasting glucose and random glucose. The ADA defines fasting as no caloric intake for at least 8 hours. Fasting plasma glucose results between 100 to 125 mg/dL indicate increased risk for diabetes (prediabetes). Fasting plasma glucose results greater than or equal to 126 mg/dL meet the criteria for diagnosis of diabetes. In the absence of unequivocal hyperglycemia, results should be confirmed by repeat testing. In a patient with classic symptoms of hyperglycemia or hyperglycemic crisis, random plasma glucose results greater than or equal to 200 mg/dL meet the criteria for diagnosis of diabetes. Reference: Standards of Medical Care in Diabetes 2016, [place] [employer]. Diabetes Care. 2016.39(Suppl 1). Performed By: #### S APCR #### [facility] CLIA [id number] [address] [place] [address] [place] Potassium [Moles/Vol] 4.9 mmol/L Normal 3.7-5.1 [facility] Comment on above: Order Comment: Speci men Type: SWAB [facility] Address: [address] [place] [address] Performed By: #### S APCR #### [facility] CLIA [id number] [address] [place] [address] [place] Sodium [Moles/Vol] 137 mmol/L Normal 136-144 [facility] Comment on above: Order Comment: Speci men Type: SWAB [facility] Address: [address] [place] [address] Performed By: #### S APCR #### [facility] CLIA [id number] [address] [place] [address] [place] Urea nitrogen [Mass/Vol] 23 mg/dL High 7-21 [facility] Comment on above: Order Comment: Speci men Type: SWAB [facility] Address: [address] [place] [address] Performed By: #### S APCR #### [facility] CLIA [id number] [address] [place] [address] [place] [address] [place] CBC panel Auto (Bld)on 05-04 Erythrocyte distribution width (RBC) [Ratio] 15.9 % High 11.5-15.0 [facility] Comment on above: Order Comment: Speci men Type: BLOOD SPECIMENOrdering Facility: [facility] Address: [address] [place] [address] Performed By: #### 5 8410-2 ####MENARD LABORATORYCLIA [id number] [address] Hematocrit (Bld) [Volume fraction] 26.6 % Low 36.0-46.0 [facility] Comment on above: Order Comment: Speci men Type: BLOOD SPECIMENOrdering Facility: [facility] Address: [address] [place] [address] Performed By: #### 5 8410-2 ####MENARD LABORATORYCLIA [id number] [address] [place] Hemoglobin (Bld) [Mass/Vol] 8.5 g/dL Low 11.5-15.5 [facility] Comment on above: Order Comment: Speci men Type: BLOOD SPECIMENOrdering Facility: [facility] Address: [address] [place] [address] Performed By: #### 5 8410-2 ####MENARD LABORATORYCLIA [id number] [address] MCH (RBC) [Entitic mass] 31.4 pg Normal 26.0-34.0 [facility] Comment on above: Order Comment: Speci men Type: BLOOD SPECIMENOrdering Facility: [facility] Address: [address] [place] [address] Performed By: #### 5 8410-2 ####MENARD LABORATORYCLIA [id number] [address] [place] MCHC (RBC) [Mass/Vol] 32.0 g/dL Normal 30.5-36.0 [facility] Comment on above: Order Comment: Speci men Type: BLOOD SPECIMENOrdering Facility: [facility] Address: [address] [place] [address] Performed By: #### 5 8410-2 ####MENARD LABORATORYCLIA [id number] [address] [place] MCV (RBC) [Entitic vol] 98.2 fL Normal 80.0-100.[address] [facility] Comment on above: Order Comment: Speci men Type: BLOOD SPECIMENOrdering Facility: [facility] Address: [address] [place] [address] Performed By: #### 5 8410-2 ####MENARD LABORATORYCLIA [id number] [address] [place] Nucleated RBC (Bld) [#/Vol] 10*3/uL Normal <0.01 [facility] Comment on above: Order Comment: Speci men Type: BLOOD SPECIMENOrdering Facility: [facility] Address: [address] [place] [address] Performed By: #### 5 8410-2 ####MENARD LABORATORYCLIA [id number] [place] [address] [place] Platelet mean volume (Bld) [Entitic vol] 10.9 fL Normal 9.0-12.7 [facility] Comment on above: Order Comment: Speci men Type: BLOOD SPECIMENOrdering Facility: [facility] Address: [address] [place] [address] Performed By: #### 5 8410-2 ####MENARD LABORATORYCLIA [id number] [place] [address] [place] Platelets (Bld) [#/Vol] 56 10*3/uL Low 150-[address] [facility] Comment on above: Order Comment: Speci men Type: BLOOD SPECIMENOrdering Facility: [facility] Address: [address] [place] [address] Performed By: #### 5 8410-2 ####MENARD LABORATORYCLIA [id number] [place] [address] [place] RBC (Bld) [#/Vol] 2.71 10*6/uL Low 3.90-5.20 [facility] Comment on above: Order Comment: Speci men Type: BLOOD SPECIMENOrdering Facility: [facility] Address: [address] [place] [id number] Performed By: #### 5 8410-2 ####MENARD LABORATORYCLIA [id number] [address] WBC (Bld) [#/Vol] 4.11 10*3/uL Normal 3.70-11.00 [facility] Comment on above: Order Comment: Speci men Type: BLOOD SPECIMENOrdering Facility: [facility] Address: [address] [place] [id number] Performed By: #### 5 8410-2 ####MENARD LABORATORYCLIA [id number] [address] THERAPY NTon 05-04-2024 THERAPY NT HNO ID: [id number] Author: SAURAV MENEZES PT Service: Physical Therapy Author Type: Physical Therapist Type: Therapy (PT/OT/Speech/Resp) Filed: 05/04/2024 15:25 Note Text: -- Summary: PT eval -- Physical Therapy Evaluation Summary SERVICE DATE: 05/04/2024 SERVICE TIME: 1413 to 1442 ROOM: [id number]- PT 6 Clicks Score: 16 DISCHARGE RECOMMENDATIONS Subacute/SNF Recommended Discharge Disposition Comments: Pt with balance and strength deficits, + falls risk, decreased activity tolerance indicating a need for continued daily skilled PT post acute stay. Recommended Discharge Disposition Due to: Functional deficits requiring ongoing therapy service prior to discharge home., Balance deficits, Functional status decline Recommended Discharge Equipment: No equipment needs anticipated ASSESSMENT Response to Therapy Interventions: Good Participation in Activities, Requires Additional Time to Complete Activities Pt is moderate assist with bed mobility, min/CGA with transfers and ambulation. Pt is AANDO x 3, follows cues appropriately, participates without adverse effects. PRECAUTIONS Fall Risk, Lines/Tubes/Drains CURRENT HOSPITAL COURSE RSV, acute respiratory failure Relevant Past Medical History: CA, CHHR, GERD, DM 2, OA HOME LIVING Patient Lives With: (sister) Assistance Available: 24-Hour Entry To Home: No Stairs Number Of Stairs To Bed/Bath: 0 Tub/Shower Type: walk in, shower chair, grab bars Laundry: sister Equipment Owned: Cane, Commode- Bedside, Elevated Toilet Seat, Grab Bars- Shower, Grab Bars- Toilet, Home Oxygen, Shower Chair, Walker- Wheeled, Lift Chair PRIOR FUNCTIONAL LEVEL Within Functional Limits, Required Assistance Assistance Required With: Self Care, Shopping, Transportation, Safety, Laundry, Cleaning, Transfers, Ambulation, Meals, Medication Management Sister completets LB dressing, mostly shoes and socks but most recently has included pants based on debility. Some assist for showering. One fall in last 6 mos, slid down to floor to prevent fall when approaching chair a recently. Uses RW at all times. Sleeps in flat bed. Sister completes all IADLs. Wears 3 L oxygen. Sometimes shops and uses stores power scooter for mobility. Recently has been using BSC after chemo due to weakness. Sister supervises for transfers recently. Pt has necklace that she beeps for sister to help for transfer at night to toilet for safety. Pt lives in apt in basement and sister frequently checks on her. SUBJECTIVE Pt agreeable to PT, ok per nursing to treat. THERAPY DIAGNOSIS Reduced mobility-other TREATMENT INTERVENTIONS $ Evaluation-Low (39702) Billed Units: 1 unit Gait Training (35977) Treatment Minutes: 14 $ Gait Training (02893) Billed Units: 1 unit Evaluation, Gait Training (68839) Timed Code Treatment (minutes): 14 Skilled Treatment Time (minutes): 29 TRAINING AND EDUCATION PROVIDED Advanced Balance Activities, Assistive Device Use, Bed Mobility, Benefits of In-Hospital Mobility, Discharge Planning, Disease Specific Education, Expected Functional Level, Falls Prevention, Gait Pattern, Reduction of Deviations, Home Safety, Role of Physical Therapy, Standing Balance, Transfers, Treatment Protocol, Positioning THERAPEUTIC SKILLS USED Activity Dosing, Assessment of Tolerance Including Vitals Response to Activity, Cues for Sequencing/Proper Technique for Activity, Cuing Tactile, Cuing Verbal, Cuing Visual, Physical Assist, Postural Alignment Correction FUNCTIONAL STATUS Bed Mobility Supine To Sit: Moderate Assistance, Additional Information HOB flat, assist with trunk and BLE management, use of draw pad to assist with hip rotation Sit to Supine: Moderate Assistance, Additional Information HOB flat, assist with BLE management Scooting: Minimal Assistance, Additional Information use of draw pad to progress forawrd scooting at EOB Transfers Sit To Stand: Minimal Assistance, Additional Information cues for proper hand placement, controlled descent to sit, X 2 trials Stand To Sit: Contact Guard Assistance, Additional Information cues for safe approach to surface, proper hand placement, controlled descent to sit. Bed to Chair Gait Contact Guard Assistance, Additional Information Pt with decreased reciprocating pattern, cues for proper distancing to walker, seated rest break between trials Gait Device: Wheeled Walker General Deviations/Observations: Karine decreased, Lateral sway increased, Flexed trunk posture, Step length decreased Gait Distance (feet): 2 x 14' Stairs Additional Information N/A ROM STRENGTH Strength Limitation Comments: B hip flexion 3+/5, B knees and ankles 4-/5 BALANCE Static Sitting Balance: Good Dynamic Sitting Balance: Good Static Standin (more content not included)... Normal [facility] Basic metabolic 2000 panelon 05-03-2024 Anion gap [Moles/Vol] 8 mmol/L Normal 8-15 [facility] Comment on above: Order Comment: Speci men Type: SWAB [facility] Address: [address] [place] [address] Performed By: #### S APCR #### [facility] CLIA [id number] [address] [place] [address] [place] Calcium [Mass/Vol] 9.7 mg/dL Normal 8.5-10.2 [facility] Comment on above: Order Comment: Speci men Type: SWAB [facility] Address: [address] [place] [address] Performed By: #### S APCR #### [facility] CLIA [id number] [address] [place] [address] [place] Chloride [Moles/Vol] 99 mmol/L Normal 98-107 [facility] Comment on above: Order Comment: Speci men Type: SWAB [facility] Address: [address] [place] [address] Performed By: #### S APCR #### [facility] CLIA [id number] [address] [place] [address] [place] CO2 [Moles/Vol] 26 mmol/L Normal 22-30 [facility] Comment on above: Order Comment: Speci men Type: SWAB [facility] Address: [address] [place] [address] Performed By: #### S APCR #### [facility] CLIA [id number] [address] [place] [address] [place] Creatinine [Mass/Vol] 1.06 mg/dL High 0.58-0.96 [facility] Comment on above: Order Comment: Speci men Type: SWAB [facility] Address: [address] [place] [address] Performed By: #### S APCR #### [facility] CLIA [id number] [address] [place] [address] [place] Creatinine and Glomerular filtration rate.predicted panel (S/P/Bld) 54 mL/min/1.73m??? Low >=60 [facility] Comment on above: Order Comment: Speci men Type: SWAB [facility] Address: [address] [place] [address] Result Comment: Judith mated Glomerular Filtration Rate (eGFR) is calculated using the 2020 CKD-EPI creatinine equation. This equation utilizes serum creatinine, sex, and age as parameters. The creatinine assay has traceable calibration to isotope dilution-mass spectrometry. Refer to KDIGO guidelines for clinical interpretation. In patients with unstable renal function, e.g. those with acute kidney injury, the eGFR may not accurately reflect actual GFR. Performed By: #### S APCR #### [facility] CLIA [id number] [address] [place] [address] [place] Glucose [Mass/Vol] 170 mg/dL High 74-99 [facility] Comment on above: Order Comment: Speci men Type: SWAB [facility] Address: [address] [place] [address] Result Comment: The [place] Diabetes [employer] (ADA) provides guidance for cutoff values for fasting glucose and random glucose. The ADA defines fasting as no caloric intake for at least 8 hours. Fasting plasma glucose results between 100 to 125 mg/dL indicate increased risk for diabetes (prediabetes). Fasting plasma glucose results greater than or equal to 126 mg/dL meet the criteria for diagnosis of diabetes. In the absence of unequivocal hyperglycemia, results should be confirmed by repeat testing. In a patient with classic symptoms of hyperglycemia or hyperglycemic crisis, random plasma glucose results greater than or equal to 200 mg/dL meet the criteria for diagnosis of diabetes. Reference: Standards of Medical Care in Diabetes 2016, [place] [employer]. Diabetes Care. 2016.39(Suppl 1). Performed By: #### S APCR #### [facility] CLIA [id number] [address] [place] [address] [place] Potassium [Moles/Vol] 4.9 mmol/L Normal 3.7-5.1 [facility] Comment on above: Order Comment: Speci men Type: SWAB [facility] Address: [address] [place] [address] Performed By: #### S APCR #### [facility] CLIA [id number] [address] [place] [address] [place] Sodium [Moles/Vol] 133 mmol/L Low 136-144 [facility] Comment on above: Order Comment: Speci men Type: SWAB [facility] Address: [address] [place] [address] Performed By: #### S APCR #### [facility] CLIA [id number] [address] [place] [address] [place] Urea nitrogen [Mass/Vol] 27 mg/dL High 7-21 [facility] Comment on above: Order Comment: Speci men Type: SWAB [facility] Address: [address] [place] [address] Performed By: #### S APCR #### [facility] CLIA [id number] [address] [place] [address] [place] CBC panel Auto (Bld)on 05-03 Erythrocyte distribution width (RBC) [Ratio] 15.9 % High 11.5-15.0 [facility] Comment on above: Order Comment: Speci men Type: BLOOD SPECIMENOrdering Facility: [facility] Address: [address] [place] [address] Performed By: #### 5 8410-2 ####MENARD LABORATORYCLIA [id number] [address] [place] Hematocrit (Bld) [Volume fraction] 25.4 % Low 36.0-46.0 [facility] Comment on above: Order Comment: Speci men Type: BLOOD SPECIMENOrdering Facility: [facility] Address: [address] [place] [address] Performed By: #### 5 8410-2 ####MENARD LABORATORYCLIA [id number] [place] [address] [place] Hemoglobin (Bld) [Mass/Vol] 8.3 g/dL Low 11.5-15.5 [facility] Comment on above: Order Comment: Speci men Type: BLOOD SPECIMENOrdering Facility: [facility] Address: [address] [place] [address] Performed By: #### 5 8410-2 ####MENARD LABORATORYCLIA [id number] [address] [place] MCH (RBC) [Entitic mass] 31.1 pg Normal 26.0-34.0 [facility] Comment on above: Order Comment: Speci men Type: BLOOD SPECIMENOrdering Facility: [facility] Address: [address] [place] [address] Performed By: #### 5 8410-2 ####MENARD LABORATORYCLIA [id number] [address] [place] MCHC (RBC) [Mass/Vol] 32.7 g/dL Normal 30.5-36.0 [facility] Comment on above: Order Comment: Speci men Type: BLOOD SPECIMENOrdering Facility: [facility] Address: [address] [place] [address] Performed By: #### 5 8410-2 ####MENARD LABORATORYCLIA [id number] [address] [place] MCV (RBC) [Entitic vol] 95.1 fL Normal 80.0-100.[address] [facility] Comment on above: Order Comment: Speci men Type: BLOOD SPECIMENOrdering Facility: [facility] Address: [address] [place] [address] Performed By: #### 5 8410-2 ####MENARD LABORATORYCLIA [id number] [address] [place] Nucleated RBC (Bld) [#/Vol] 10*3/uL Normal <0.01 [facility] Comment on above: Order Comment: Speci men Type: BLOOD SPECIMENOrdering Facility: [facility] Address: [address] [place] [address] Performed By: #### 5 8410-2 ####MENARD LABORATORYCLIA [id number] [place] [address] [place] Platelet mean volume (Bld) [Entitic vol] 10.6 fL Normal 9.0-12.7 [facility] Comment on above: Order Comment: Speci men Type: BLOOD SPECIMENOrdering Facility: [facility] Address: [address] [place] [address] Performed By: #### 5 8410-2 ####MENARD LABORATORYCLIA [id number] [address] [place] Platelets (Bld) [#/Vol] 55 10*3/uL Low 150-400 [facility] Comment on above: Order Comment: Speci men Type: BLOOD SPECIMENOrdering Facility: [facility] Address: [address] [place] [address] Performed By: #### 5 8410-2 ####MENARD LABORATORYCLIA [id number] [address] RBC (Bld) [#/Vol] 2.67 10*6/uL Low 3.90-5.20 [facility] Comment on above: Order Comment: Speci men Type: BLOOD SPECIMENOrdering Facility: [facility] Address: [address] [place] [address] Performed By: #### 5 8410-2 ####MENARD LABORATORYCLIA [id number] [address] WBC (Bld) [#/Vol] 4.11 10*3/uL Normal 3.70-11.00 [facility] Comment on above: Order Comment: Speci men Type: BLOOD SPECIMENOrdering Facility: [facility] Address: [address] [place] [address] Performed By: #### 5 8410-2 ####MENARD LABORATORYCLIA [id number] [address] CNPNon 05-03-2024 CNPN Normal [facility] CONSULT PROGon 05-03-2024 CONSULT PROG HNO ID: [id number] Author: DEONTE SMITH RPh Service: Pharmacy Author Type: Pharmacist Type: Consult Progress Note Filed: 05/03/2024 05:27 Note Text: PHARMACY VANCOMYCIN DOSING NOTE Patient Name: Pricila Hooker Admission Date: 05/02/2024 Date of Consult: 05/03/2024 Time of Consult: 5:27 AM RECOMMENDATIONS/PLAN: Pharmacy consulted for vancomycin dosing for Pricila Hooker, a 78 year old female. Vancomycin therapy has been discontinued. Vancomycin level(s) have been discontinued: Not Applicable. The pharmacy vancomycin dosing service will sign off. Thank you for allowing us to participate in this patient's care. Please contact pharmacy if there are questions. Deonte Smith RPh Normal [facility] Culture, Blood (WB)on 2024 CUB Blood cultures x2, f rom two different sites No growth in 5 days. Normal [facility] Comment on above: Performed By: #### L [phone] #### [facility] [address] [place], [address] Legionella Ag Ur Qlon 2024 Legionella sp Ag Ql (U) Negative Normal Negative [facility] Comment on above: Order Comment: Speci men Type: SWAB Ordering Facility: [facility] Address: [address] [place] [address] Result Comment: Legi onella urinary antigen test is used as an aid in diagnosis of infection with Legionella pneumophila serogroup 1. It may be detected from a few days to several months after onset of signs and symptoms despite antibiotic therapy or disease resolution. A negative result cannot exclude Legionellosis. Clinical correlation is required. Performed By: #### S APCR #### [facility] CLIA [id number] [address] [place] [address] [place] Magnesium SerPl-mCncon 05-03 Magnesium [Mass/Vol] 1.8 mg/dL Normal 1.7-2.3 [facility] Comment on above: Order Comment: Speci men Type: SWAB Ordering Facility: [facility] Address: [address] [place] [address] Performed By: #### S APCR #### [facility] CLIA [id number] [address] [place] [address] [place] Phosphate SerPl-mCncon 05-03 Phosphate [Mass/Vol] 2.9 mg/dL Normal 2.7-4.8 [facility] Comment on above: Order Comment: Speci men Type: SWAB Ordering Facility: [facility] Address: [address] [place] [address] Performed By: #### S APCR #### [facility] CLIA [id number] [address] [place] [address] [place] STREPTOCOCCUS PNEUMONIAE ANT IGEN URINEon 05-03-2024 STREPTOCOCCUS PNEUMONIAE ANTIGEN URINE STREP PNEUMO AG RESULT: Negative for Streptococcus pneumoniae antigen. Presumptive negative for pneumococcal pneumonia, suggesting no current or recent pneumococcal infection. Infection due to S.pneumoniae cannot be ruled out since the antigen present in the sample may be below the detection limit of the test. Normal [facility] Comment on above: Performed By: #### S PNAG ####[facility] [id number] [address] THERAPY NTon 05-03-2024 THERAPY NT HNO ID: [id number] Author: TABITHA RODRIGUEZ OTR/Ubaldo Service: Occupational Therapy Author Type: Occupational Therapist Type: Therapy (PT/OT/Speech/Resp) Filed: 05/03/2024 15:06 Note Text: -- Summary: OT Eval -- Occupational Therapy Evaluation Summary SERVICE DATE: 05/03/2024 SERVICE TIME: 1401 to 1425 ROOM: [id number]-8432-1 OT 6 Clicks Score: 17 DISCHARGE RECOMMENDATIONS Subacute/SNF Recommended Discharge Disposition Due to: Functional deficits requiring ongoing therapy service prior to discharge home, ADL impairment, Functional status decline, Requires multiple therapy disciplines ASSESSMENT Response to Therapy Interventions: Good Participation in Activities, Low Activity Tolerance, On-Track to Achieve Discharge Goals Pt min A for ADLs, amb with supervision with AD has required increasing assistance, overall mod A for ADLs and min A for functional transfers. Pt requires min A for transfers this session. Educated on benefit of facility rehab, however family would like to go home. Would benefit from re education. PRECAUTIONS Fall Risk, Lines/Tubes/Drains Droplet Precautions CURRENT HOSPITAL COURSE RSV, acute respiratory failure Relevant Past Medical History: CA, CHHR, GERD, DM 2, OA HOME LIVING Patient Lives With: Family Assistance Available: 24-Hour Entry To Home: No Stairs Number Of Stairs To Bed/Bath: 0 Tub/Shower Type: walk in, shower chair, grab bars Laundry: sister Equipment Owned: Cane, Commode- Bedside, Elevated Toilet Seat, Grab Bars- Shower, Grab Bars- Toilet, Home Oxygen, Shower Chair PRIOR FUNCTIONAL LEVEL Within Functional Limits, Required Assistance Assistance Required With: Self Care, Shopping, Transportation, Safety, Laundry, Cleaning, Transfers, Ambulation, Meals, Medication Management Sister completets LB dressing, mostly shoes and socks but most recently has included pants based on debility. Some assist for showering. One fall in last 6 mos, slid down to floor to prevent fall when approaching chair a recently. Uses RW at all times. Sleeps in flat bed. Sister completes all IADLs. Wears 3 L oxygen. Sometimes shops and uses [employer] power scooter for mobility. Recently has been using BSC after chemo due to weakness. Sister supervises for transfers recently. Pt has necklace that she beeps for sister to help for transfer at night to toilet for safety. Pt lives in apt in basement and sister frequently checks on her. SUBJECTIVE agreeable to tx, approved by RN COGNITION Responsiveness: Alert, Awake Follows Commands: 3-step Commands THERAPY DIAGNOSIS Reduced mobility-other, Decreased activities of daily living (ADL), Unsteadiness on feet, General symptoms and signs-other, Muscle Weakness (generalized) TREATMENT INTERVENTIONS Evaluation, Self Mcfp Management (07331) Skilled Treatment Time (minutes): 24 TRAINING AND EDUCATION PROVIDED Assistive Device Use, Bed Mobility, Benefits of In-Hospital Mobility, Discharge Planning, Energy Conservation, Expected Functional Level, Functional Mobility Involving ADLs, Health Literacy, Insight into Deficits, Life Roles/Routines/Habits, Positioning, Precautions/Restrictions, Role of Occupational Therapy, Safety/Judgment, Self-Efficacy, Sitting Balance to Improve Jones with ADLs/Self-Care, Standing Balance to Improve Jones with ADLs/Self-Care, Transfer - Sit to Stand, Treatment Protocol THERAPEUTIC SKILLS USED Activity Dosing, Cues for Sequencing/Proper Technique for Activity, Cuing Tactile, Cuing Verbal, Cuing Visual, Management of Critical Lines, Tubes and/or Drains, Movement Facilitation, Family Training, Physical Assist, Task Analysis Learning, Teach-Back for Education, Therapeutic Use of Self FUNCTIONAL STATUS Activities of Daily Living Assist Level Additional Information Feeding Independent Grooming Set Up, Additional Information seated for energy conservation Bathing Upper Body Set Up Bathing Lower Body Moderate Assistance Dressing Upper Body Set Up Dressing Lower Body Moderate Assistance, Additional Information slightly below baseline Toileting Contact Guard Assistance Mobility Assist Level Additional Information Bed Mobility Sit to Stand Minimal Assistance Stand to Sit Contact Guard Assistance Bed to Chair Toilet/Commode Shower Functional Mobility Minimal Assistance Functional Mobility Device: Wheeled Walker GOALS Patient will demonstrate progress to optimize self-care activities, cognitive and/or coping to maximize function upon discharge. Progress Toward Goals: Progressing as expected Rehab Potential: Good PLAN OT Frequency: 2 Times Per Week Treatment Interventions: Education, Self Care/Home Management, Energy Conservation Training, Joint Mobility, Strengthening, Functional Mobility Tra (more content not included)... [facility] 05-02-2024 [facility] HNO ID: [id number] Author: YSABEL PAINTER RN Service: Infection Prevention Author Type: Registered Nurse Type: [facility] Filed: 05/02/2024 17:58 Note Text: ISOLATION NOTE Admission Date: 05/02/2024 Type of Isolation Recommended: Contact Precautions ([place] Isolation Sign) Indication: Respiratory syncytial virus (RSV) Date Isolation Initiated: 05/01/2024 Anticipated Duration of Isolation: In consultation with Infection Prevention Type and Date of Positive Test(s): Positive for RSV by PCR 05/01/2024 SIGNATURE: Ysabel Painter RN PATIENT NAME: Pricila Hooker DATE: May 02, 2024 TIME: 5:57 PM PAGER/CONTACT #: [phone] Infection Prevention after hours/weekend pager: Contact Nursing Pensionholder Information Clerk [facility] HNO ID: [id number] Author: MATEUSZ RYAN Tech Service: Radiology Author Type: Food Taster Type: [facility] Filed: 05/02/2024 07:50 Note Text: Radiology Service Progress Note PATIENT NAME: Pricila Hooker DATE OF SERVICE: May 02, 2024 TIME: 7:49 AM PATIENT IDENTITY VERIFICATION COMPLETED USING TWO (2) IDENTIFIERS: Name and Date of confirmed by patient verbally and Name and Date of confirmed by identification band. FALL SCREENING: Has the patient had 2 falls in the last year or 1 fall with injury or currently using an Ambulatory Assistive Device (Walker, Cane, Wheelchair, Crutches, etc.)? Inpatient: Screened on floor PATIENT GENDER DATA: Assigned female at . status: : No status: NO. PATIENT RELEVANT IMPLANT DATA REVIEWED: Not Applicable PATIENT PRESENTS WITH AN IMPLANTABLE OR ATTACHED KENNEL STAFF MEMBER: N/A RADIOLOGY DEPARTMENT: Ultrasound PERIPHERAL IV DATA: Not applicable SIGNED BY: Mayra Cuevas May 02, 2024 7:49 AM Normal [facility] ARTERIAL BLOOD GASESon 05-02 Base deficit (BldA) [Moles/Vol] -1 mmol/L Normal -2-0 [facility] Comment on above: Order Comment: Guera doll Type: ARTERIAL BLOOD SPECIMENOrdering Facility: [facility] Address: [address] [place] [address] Performed By: #### A LLBG ####[facility] [id number] [facility]OSP[facility] RES[facility]AT[facility] [id number] [place] [address] Carboxyhemoglobin (BldA) [Mass fraction] 1.3 % Normal 0.0-2.0 [facility] Comment on above: Order Comment: Guera doll Type: ARTERIAL BLOOD SPECIMENOrdering Facility: [facility] Address: [address] [place] [address] Performed By: #### A LLBG ####[address] [place] [address] RESPIRATORY [id number] [address] CO2 (Bld) [Partial pressure] 57 mm Hg High 36-46 [facility] Comment on above: Order Comment: Guera doll Type: ARTERIAL BLOOD SPECIMENOrdering Facility: [facility] Address: [address] [place] [address] Performed By: #### A LLBG ####[facility] [id number] [facility]OSP[facility] RESPIRATORY [id number] [address] CO2 adjusted to patient's actual temperature (Bld) [Partial pressure] Normal [facility] Comment on above: Order Comment: Speci men Type: ARTERIAL BLOOD SPECIMENOrdering Facility: [facility] Address: [address] [place] [address] Performed By: #### A LLBG ####[facility] RESPIRATORYIA [id number] [facility] [id number] [address] [address] FIO2 40 % Normal [facility] Comment on above: Order Comment: Speci men Type: ARTERIAL BLOOD SPECIMENOrdering Facility: [facility] Address: [address] [place] [id number] Performed By: #### A LLBG ####[facility] [id number] [facility]OSP[facility] RESPIRATORY [id number] [address] HCO3 (Bld) [Moles/Vol] 26 mmol/L Normal 22-26 [facility] Comment on above: Order Comment: Speci men Type: ARTERIAL BLOOD SPECIMENOrdering Facility: [facility] Address: [address] [place] [address] Performed By: #### A LLBG ####[facility] [id number] [facility]OS[facility] RESPIRAT[facility] [id number] [address] Hemoglobin (Bld) [Mass/Vol] 8.7 g/dL Low 11.5-15.5 [facility] Comment on above: Order Comment: Speci men Type: ARTERIAL BLOOD SPECIMENOrdering Facility: [facility] Address: [address] [place] [address] Performed By: #### A LLBG ####[facility] RESPIRATORYIA [id number] [facility]OSPITAL RESPIRATORY [id number] [address] [address] IPAP (CM H2O) 20 Normal [facility] Comment on above: Order Comment: Speci men Type: ARTERIAL BLOOD SPECIMENOrdering Facility: [facility] Address: [address] [place] [address] Performed By: #### A LLBG ####[facility] RESPIRATORYIA [id number] [facility]OS[facility] RESPIRATORY [id number] [address] Lactate [Moles/Vol] 0.5 mmol/L Normal 0.5-2.2 [facility] Comment on above: Order Comment: Speci men Type: ARTERIAL BLOOD SPECIMENOrdering Facility: [facility] Address: [address] [place] [address] Performed By: #### A LLBG ####[facility] RESPIRATORYCLIA [id number] [facility]OS[facility] RESPIRATORY [id number] [address] Methemoglobin (Bld) [Mass fraction] % Normal 0.0-1.5 [facility] Comment on above: Order Comment: Speci men Type: ARTERIAL BLOOD SPECIMENOrdering Facility: [facility] Address: [address] [place] [address] Performed By: #### A LLBG ####[facility] RESPIRATORYIA [id number] [facility]OSP[facility] RESPIRATORY [id number] [address] O2 THERAPY Positive [facility] Comment on above: Order Comment: Speci men Type: ARTERIAL BLOOD SPECIMENOrdering Facility: [facility] Address: [address] [place] [address] Performed By: #### A LLBG ####[facility] RESPIRATORYCLIA [id number] [id number] [address] [address] Oxygen (Bld) [Partial pressure] 59 mm Hg Low 85-95 [facility] Comment on above: Order Comment: Speci men Type: ARTERIAL BLOOD SPECIMENOrdering Facility: [facility] Address: [address] [place] [address] Performed By: #### A LLBG ####[facility] RESPIRATORYCLIA [id number] [facility]OSP[facility] RESPIRATORY [id number] [address] Oxygen adjusted to patient's actual temperature (Bld) [Partial pressure] [facility] Comment on above: Order Comment: Speci men Type: ARTERIAL BLOOD SPECIMENOrdering Facility: [facility] Address: [address] [place] [address] Performed By: #### A LLBG ####[facility] RESPIRATORYCLIA [id number] [facility]OSPITAL RESPIRATORY [id number] [address] [address] Oxyhemoglobin (BldA) [Mass fraction] 89 % Low 95-98 [facility] Comment on above: Order Comment: Speci men Type: ARTERIAL BLOOD SPECIMENOrdering Facility: [facility] Address: [address] [place] [address] Performed By: #### A LLBG ####[facility] RESPIRATORYCLIA [id number] [facility]OS[facility] RESPIRAT[facility] [id number] [address] [address] PEEP/CPAP 10 cmH2O Normal [facility] Comment on above: Order Comment: Speci men Type: ARTERIAL BLOOD SPECIMENOrdering Facility: [facility] Address: [address] [place] [address] Performed By: #### A LLBG ####[facility] RESPIRATORY[id number] [facility]OS[facility] RESPIRATORY [id number] [place] [address] pH (Bld) 7.28 [pH] Low 7.35-7.45 [facility] Comment on above: Order Comment: Speci men Type: ARTERIAL BLOOD SPECIMENOrdering Facility: [facility] Address: [address] [place] [address] Performed By: #### A LLBG ####[facility] RESPIRATORYCLIA [id number] [facility]OSP[facility] RESPIRATORY [id number] [address] pH adjusted to patient's actual temperature (Bld) Normal [facility] Comment on above: Order Comment: Speci men Type: ARTERIAL BLOOD SPECIMENOrdering Facility: [facility] Address: [address] [place] [address] Performed By: #### A LLBG ####[facility] RESPIRATORYCLIA [id number] [facility]OSP[facility] RESPIRATORY [id number] [address] PO2 / FIO2 RATIO 148 mmHg Low >300 [facility] Comment on above: Order Comment: Speci men Type: ARTERIAL BLOOD SPECIMENOrdering Facility: [facility] Address: [address] [place] [address] Performed By: #### A LLBG ####[facility] RESPIRATORYCLIA [id number] [facility]OSPITAL RESPIRATORY [id number] [address] [address] Potassium [Moles/Vol] 5.1 mmol/L High 3.5-5.0 [facility] Comment on above: Order Comment: Speci men Type: ARTERIAL BLOOD SPECIMENOrdering Facility: [facility] Address: [address] [place] [address] Performed By: #### A LLBG ####[facility] [id number] [facility] RESPIRATORY [id number] [address] Base excess Calc (Bld) [Moles/Vol] 0 mmol/L Normal 0-2 [facility] Comment on above: Order Comment: Speci men Type: ARTERIAL BLOOD SPECIMENOrdering Facility: [facility] Address: [address] [place] [address] Performed By: #### A LLBG ####[facility] [id number] [facility]OSP[facility] RESPIRATORY [id number] [address] Carboxyhemoglobin (BldA) [Mass fraction] 1.1 % Normal 0.0-2.0 [facility] Comment on above: Order Comment: Speci men Type: ARTERIAL BLOOD SPECIMENOrdering Facility: [facility] Address: [address] [place] [address] Result Comment: Carb oxyhemoglobin Reference Range for Smokers: 2.0-8.0% Performed By: #### A LLBG ####[facility] [id number] HOSPITAL RESPIRATORY [id number] [address] [address] CO2 (Bld) [Partial pressure] 60 mm Hg High 36-46 [facility] Comment on above: Order Comment: Speci men Type: ARTERIAL BLOOD SPECIMENOrdering Facility: [facility] Address: [address] [place] [address] Performed By: #### A LLBG ####[facility] [id number] [facility]OSP[facility] RESPIRATORY [id number] [address] CO2 adjusted to patient's actual temperature (Bld) [Partial pressure] Normal [facility] Comment on above: Order Comment: Speci men Type: ARTERIAL BLOOD SPECIMENOrdering Facility: [facility] Address: [address] [place] [address] Performed By: #### A LLBG ####[facility] RESPIRATORYCLIA [id number] [facility]OS[facility] RESPIRATORY [id number] [address] [address] FIO2 40 % Normal [facility] Comment on above: Order Comment: Speci men Type: ARTERIAL BLOOD SPECIMENOrdering Facility: [facility] Address: [address] [place] [address] Performed By: #### A LLBG ####[facility] RESPIRATORYIA [id number] [facility]OS[facility] RESPIRATORY [id number] [address] [address] HCO3 (Bld) [Moles/Vol] 28 mmol/L High 22-26 [facility] Comment on above: Order Comment: Speci men Type: ARTERIAL BLOOD SPECIMENOrdering Facility: [facility] Address: [address] [place] [address] Performed By: #### A LLBG ####[facility] RESPIRATORYIA [id number] [facility]OSPITAL RESPIRATORY [id number] [address] [address] Hemoglobin (Bld) [Mass/Vol] 8.1 g/dL Low 11.5-15.5 [facility] Comment on above: Order Comment: Speci men Type: ARTERIAL BLOOD SPECIMENOrdering Facility: [facility] Address: [address] [place] [address] Performed By: #### A LLBG ####[facility] RESPIRATORYCLIA [id number] [facility]OS[facility] RESPIRATORY [id number] [address] [address] Lactate [Moles/Vol] 0.6 mmol/L Normal 0.5-2.2 [facility] Comment on above: Order Comment: Speci men Type: ARTERIAL BLOOD SPECIMENOrdering Facility: [facility] Address: [address] [place] [address] Performed By: #### A LLBG ####[facility] RESPIRATORYIA [id number] [facility]OS[facility] RESPIRATORY [id number] [address] Methemoglobin (Bld) [Mass fraction] % Normal 0.0-1.5 [facility] Comment on above: Order Comment: Speci men Type: ARTERIAL BLOOD SPECIMENOrdering Facility: [facility] Address: [address] [place] [address] Performed By: #### A LLBG ####[facility] RESPIRATORYIA [id number] [facility]OS[facility]PIRAT[facility] [id number] [address] [address] O2 THERAPY Positive Normal [facility] Comment on above: Order Comment: Speci men Type: ARTERIAL BLOOD SPECIMENOrdering Facility: [facility] Address: [address] [place] [address] Performed By: #### A LLBG ####[facility] RESPIRATORYIA [id number] [facility]OS[facility] RESPIRAT[facility] [id number] [address] [address] Oxygen (Bld) [Partial pressure] 65 mm Hg Low 85-95 [facility] Comment on above: Order Comment: Speci men Type: ARTERIAL BLOOD SPECIMENOrdering Facility: [facility] Address: [address] [place] [address] Performed By: #### A LLBG ####[facility] RESPIRATORYIA [id number] [facility]OS[facility] RESPIRATORY [id number] [address] [address] Oxygen adjusted to patient's actual temperature (Bld) [Partial pressure] [facility] Comment on above: Order Comment: Speci men Type: ARTERIAL BLOOD SPECIMENOrdering Facility: [facility] Address: [address] [place] [address] Performed By: #### A LLBG ####[facility] RESPIRATORYIA [id number] [facility]OS[facility] RESPIRATORY [id number] [address] [address] Oxyhemoglobin (BldA) [Mass fraction] 92 % Low 95-98 [facility] Comment on above: Order Comment: Speci men Type: ARTERIAL BLOOD SPECIMENOrdering Facility: [facility] Address: [address] [place] [address] Performed By: #### A LLBG ####[facility] [id number] [facility]OS[facility] RESPIRATORY [id number] [address] [address] pH (Bld) 7.28 [pH] Low 7.35-7.45 [facility] Comment on above: Order Comment: Speci men Type: ARTERIAL BLOOD SPECIMENOrdering Facility: [facility] Address: [address] [place] [address] Performed By: #### A LLBG ####[facility] [id number] [facility]OS[facility] RESPIRATORY [id number] [address] pH adjusted to patient's actual temperature (Bld) Normal [facility] Comment on above: Order Comment: Speci men Type: ARTERIAL BLOOD SPECIMENOrdering Facility: [facility] Address: [address] [place] [address] Performed By: #### A LLBG ####[address] [place] [address] RESPIRATORY [id number] [address] PO2 / FIO2 RATIO 163 mmHg Low >300 [facility] Comment on above: Order Comment: Speci men Type: ARTERIAL BLOOD SPECIMENOrdering Facility: [facility] Address: [address] [place] [address] Performed By: #### A LLBG ####[address] [place] [address] RESPIRATORY [id number] [address] [address] Potassium [Moles/Vol] 4.8 mmol/L Normal 3.5-5.0 [facility] Comment on above: Order Comment: Speci men Type: ARTERIAL BLOOD SPECIMENOrdering Facility: [facility] Address: [address] [place] [address] Performed By: #### A LLBG ####[address] [place] [address] RESPIRATORY [id number] [address] Base excess Calc (Bld) [Moles/Vol] 0 mmol/L Normal 0-2 [facility] Comment on above: Order Comment: Speci men Type: BLOOD SPECIMEN Ordering Facility: [facility] Address: [address] [place] [address] Performed By: #### S LACTR #### [facility] CLIA [id number] [address] Body temperature 96.26 [degF] Normal [facility] Comment on above: Order Comment: Speci men Type: BLOOD SPECIMEN Order[facility] Facility: [facility] Address: [address] [place] [address] Performed By: #### S LACTR #### [facility] CLIA [id number] [address] [place] Calcium.ionized (Bld) [Mass/Vol] 1.26 mmol/L Normal 1.08-1.30 [facility] Comment on above: Order Comment: Speci men Type: BLOOD SPECIMEN Ordering Facility: [facility] Address: [address] [place] [address] Performed By: #### S LACTR #### [facility] CLIA [id number] [address] [place] [address] Calcium.ionized adjusted to pH 7.4 (BldA) [Moles/Vol] 1.16 mmol/L Normal 1.08-1.30 [facility] Comment on above: Order Comment: Speci men Type: BLOOD SPECIMEN Ordering Facility: [facility] Address: [address] [place] [address] Performed By: #### S LACTR #### [facility] CLIA [id number] [address] [place] [address] [place] Carboxyhemoglobin (BldA) [Mass fraction] 1.4 % Normal 0.0-2.0 [facility] Comment on above: Order Comment: Speci men Type: BLOOD SPECIMEN Ordering Facility: [facility] Address: [address] [place] [address] Result Comment: Carb oxyhemoglobin Reference Range for Smokers: 2.0-8.0% Performed By: #### S LACTR #### [facility] CLIA [id number] [address] [place] [address] [place] Chloride [Moles/Vol] 94 mmol/L Low 97-105 [facility] Comment on above: Order Comment: Speci men Type: BLOOD SPECIMEN Ordering Facility: [facility] Address: [address] [place] [address] Performed By: #### S LACTR #### [facility] [place] [facility] CLIA [id number] [address] [place] [address] [place] CO2 (Bld) [Partial pressure] 64 mm Hg High 36-46 [facility] Comment on above: Order Comment: Speci men Type: BLOOD SPECIMEN Ordering Facility: [facility] Address: [address] [place] [address] Performed By: #### S LACTR #### [facility] [place] [facility] CLIA [id number] [address] [place] [address] [facility] CO2 adjusted to patient's actual temperature (Bld) [Partial pressure] 61 mmHg High 36-46 [facility] Comment on above: Order Comment: Speci men Type: BLOOD SPECIMEN Ordering Facility: [facility] Address: [address] [place] [address] Performed By: #### S LACTR #### [facility] [place] [facility] CLIA [id number] [address] [place] [address] [place] FIO2 80 % Normal [facility] Comment on above: Order Comment: Speci men Type: BLOOD SPECIMEN Ordering Facility: [facility] Address: [address] [place] [address] Performed By: #### S LACTR #### [facility] [place] [facility] CLIA [id number] [address] [place] [address] [place] Glucose [Mass/Vol] 230 mg/dL High 60-105 [facility] Comment on above: Order Comment: Speci men Type: BLOOD SPECIMEN Ordering Facility: [facility] Address: [address] [place] [address] Performed By: #### S LACTR #### [facility] [place] [facility] CLIA [id number] [address] [place] [address] [place] HCO3 (Bld) [Moles/Vol] 28 mmol/L High 22-26 [facility] Comment on above: Order Comment: Speci men Type: BLOOD SPECIMEN Ordering Facility: [facility] Address: [address] [place] [address] Performed By: #### S LACTR #### [facility] [place] [facility] CLIA [id number] [address] [place] [address] [place] Hematocrit (Bld) [Volume fraction] 27.2 % Low 36.0-46.0 [facility] Comment on above: Order Comment: Speci men Type: BLOOD SPECIMEN Ordering Facility: [facility] Address: [address] [place] [address] Performed By: #### S LACTR #### [facility] [place] [facility] CLIA [id number] [address] [place] [address] [place] Hemoglobin (Bld) [Mass/Vol] 8.9 g/dL Low 11.5-15.5 [facility] Comment on above: Order Comment: Speci men Type: BLOOD SPECIMEN Ordering Facility: [facility] Address: [address] [place] [address] Performed By: #### S LACTR #### [facility] [place] [facility] CLIA [id number] [address] [place] [address] [place] IPAP (CM H2O) 15 Normal [facility] Comment on above: Order Comment: Speci men Type: BLOOD SPECIMEN Ordering Facility: [facility] Address: [address] [place] [address] Performed By: #### S LACTR #### [facility] [place] [facility] CLIA [id number] [address] [place] [address] [place] Lactate [Moles/Vol] 0.7 mmol/L Normal 0.5-2.2 [facility] Comment on above: Order Comment: Speci men Type: BLOOD SPECIMEN Ordering Facility: [facility] Address: [address] [place] [address] Performed By: #### S LACTR #### [facility] [place] [facility] CLIA [id number] [address] [place] [address] [place] Methemoglobin (Bld) [Mass fraction] % Normal 0.0-1.5 [facility] Comment on above: Order Comment: Speci men Type: BLOOD SPECIMEN Ordering Facility: [facility] Address: [address] [place] [address] Performed By: #### S LACTR #### [facility] [place] [facility] CLIA [id number] [address] [place] [address] [facility] [place] O2 THERAPY Positive Normal [facility] Comment on above: Order Comment: Speci men Type: BLOOD SPECIMEN Ordering Facility: [facility] Address: [address] [place] [address] Performed By: #### S LACTR #### [facility] [place] [facility] CLIA [id number] [address] [place] [address] [facility] [place] Oxygen (Bld) [Partial pressure] 116 mm Hg High 85-95 [facility] Comment on above: Order Comment: Speci men Type: BLOOD SPECIMEN Ordering Facility: [facility] Address: [address] [place] [address] Performed By: #### S LACTR #### [facility] [place] [facility] CLIA [id number] [address] [place] [address] [facility] [place] Oxygen adjusted to patient's actual temperature (Bld) [Partial pressure] Normal [facility] Comment on above: Order Comment: Speci men Type: BLOOD SPECIMEN Ordering Facility: [facility] Address: [address] [place] [address] Performed By: #### S LACTR #### [facility] [place] [facility] CLIA [id number] [address] [place] [address] [place] Oxyhemoglobin (BldA) [Mass fraction] 97 % Normal 95-98 [facility] Comment on above: Order Comment: Speci men Type: BLOOD SPECIMEN Ordering Facility: [facility] Address: [address] [id number] Performed By: #### S LACTR #### [facility] [place] [facility] CLIA [id number] [address] [place] [address] [place] pH (Bld) 7.25 [pH] Low 7.35-7.45 [facility] Comment on above: Order Comment: Speci men Type: BLOOD SPECIMEN Ordering Facility: [facility] Address: [address] [place] [address] Performed By: #### S LACTR #### [facility] [place] [facility] CLIA [id number] [address] [place] [address] [place] pH adjusted to patient's actual temperature (Bld) 7.27 Low 7.35-7.45 [facility] Comment on above: Order Comment: Speci men Type: BLOOD SPECIMEN Ordering Facility: [facility] Address: [address] [place] [address] Performed By: #### S LACTR #### [facility] [place] [facility] CLIA [id number] [address] [place] [address] [place] PO2 / FIO2 RATIO 145 mmHg Low >300 [facility] Comment on above: Order Comment: Speci men Type: BLOOD SPECIMEN Ordering Facility: [facility] Address: [address] [place] [address] Performed By: #### S LACTR #### [facility] [place] [facility] CLIA [id number] [address] [place] [address] [place] Potassium [Moles/Vol] 5.2 mmol/L High 3.5-5.0 [facility] Comment on above: Order Comment: Speci men Type: BLOOD SPECIMEN Ordering Facility: [facility] Address: [address] [place] [address] Performed By: #### S LACTR #### [facility] [place] [facility] CLIA [id number] [address] [place] [address] [place] Sodium [Moles/Vol] 127 mmol/L Low 136-144 [facility] Comment on above: Order Comment: Speci men Type: BLOOD SPECIMEN Ordering Facility: [facility] Address: [address] [place] [address] Performed By: #### S LACTR #### [facility] [place] [facility] CLIA [id number] [address] [place] [address] [place] Basic metabolic 2000 panelon 05-02-2024 Anion gap [Moles/Vol] 6 mmol/L Low 8-15 [facility] Comment on above: Order Comment: Speci men Type: BLOOD SPECIMENOrdering Facility: [facility] Address: [address] [place] [address] Performed By: #### 2 4321-2, 43021-9, 277-1, 02602-9 ####[facility] [id number] [place] [address] [place] Calcium [Mass/Vol] 9.3 mg/dL Normal 8.5-10.2 [facility] [place] Comment on above: Order Comment: Speci men Type: BLOOD SPECIMENOrdering Facility: [facility] Address: [address] [place] [address] Performed By: #### 2 4321-2, 13535-6, 277-1, 35779-9 ####[facility] [id number] [place] [address] [place] Chloride [Moles/Vol] 96 mmol/L Low 98-107 [facility] Comment on above: Order Comment: Speci men Type: BLOOD SPECIMENOrdering Facility: [facility] Address: [address] [place] [address] Performed By: #### 2 4321-2, 10293-6, 2776-1, 67753-8 ####[facility] [id number] [place] [address] [place] CO2 [Moles/Vol] 25 mmol/L Normal 22-30 [facility] Comment on above: Order Comment: Speci men Type: BLOOD SPECIMENOrdering Facility: [facility] Address: [address] [place] [address] Performed By: #### 2 4321-2, 87256-9, 277-1, 17549-7 ####[facility] [id number] [place] [address] [place] Creatinine [Mass/Vol] 1.22 mg/dL High 0.58-0.96 [facility] Comment on above: Order Comment: Guera doll Type: BLOOD SPECIMENOrdering Facility: [facility] Address: [address] [place] [address] Performed By: #### 2 4321-2, 29067-5, 2777-1, 27632-9 ####[facility] [id number] [place] [address] [place] Creatinine and Glomerular filtration rate.predicted panel (S/P/Bld) 46 mL/min/1.73m??? Low >=60 [facility] Comment on above: Order Comment: Guera doll Type: BLOOD SPECIMENOrdering Facility: [facility] Address: [address] [place] [address] Result Comment: Judith mated Glomerular Filtration Rate (eGFR) is calculated using the 2020 CKD-EPI creatinine equation. This equation utilizes serum creatinine, sex, and age as parameters. The creatinine assay has traceable calibration to isotope dilution-mass spectrometry. Refer to KDIGO guidelines for clinical interpretation. In patients with unstable renal function, e.g. those with acute kidney injury, the eGFR may not accurately reflect actual GFR. Performed By: #### 2 4321-2, 40895-4, 2777-1, 16018-5 ####[facility]IA [id number] [place] [id number] [place] Glucose [Mass/Vol] 199 mg/dL High 74-99 [facility] Comment on above: Order Comment: Guera doll Type: BLOOD SPECIMENOrdering Facility: [facility] Address: [address] [place] [address] Result Comment: The [place] Diabetes Association (ADA) provides guidance for cutoff values for fasting glucose and random glucose. The ADA defines fasting as no caloric intake for at least 8 hours. Fasting plasma glucose results between 100 to 125 mg/dL indicate increased risk for diabetes (prediabetes). Fasting plasma glucose results greater than or equal to 126 mg/dL meet the criteria for diagnosis of diabetes. In the absence of unequivocal hyperglycemia, results should be confirmed by repeat testing. In a patient with classic symptoms of hyperglycemia or hyperglycemic crisis, random plasma glucose results greater than or equal to 200 mg/dL meet the criteria for diagnosis of diabetes. Reference: Standards of Medical Care in Diabetes 2016, [place] [employer] Association. Diabetes Care. 2016.39(Suppl 1). Performed By: #### 2 4321-2, 43553-5, 2777-1, 72951-6 ####[facility]ORYCLIA [id number] [place] [address] [place] Potassium [Moles/Vol] 5.2 mmol/L High 3.7-5.1 [facility] Comment on above: Order Comment: Speci men Type: BLOOD SPECIMENOrdering Facility: [facility] Address: [address] [place], [place] [address] Performed By: #### 2 4321-2, 91503-9, 2777-1, 11348-2 ####[facility] [id number] [address] [place] Sodium [Moles/Vol] 127 mmol/L Low 136-144 [facility] Comment on above: Order Comment: Seani sharmila Type: BLOOD SPECIMENOrdering Facility: [facility] Address: [address] [place] [address] Performed By: #### 2 4321-2, 38095-9, 2777-1, 48135-3 ####[facility] [id number] [address] [place] Urea nitrogen [Mass/Vol] 29 mg/dL High 7-21 [facility] Comment on above: Order Comment: Seani sharmila Type: BLOOD SPECIMENOrdering Facility: [facility] Address: [address] [place] [address] Performed By: #### 2 4321-2, 01536-1, 2777-1, 76705-7 ####[facility]ORYCL[facility] [id number] [place] [id number] [place] CBC panel Auto (Bld)on 05-02 Erythrocyte distribution width (RBC) [Ratio] 16.6 % High 11.5-15.0 [facility] Comment on above: Order Comment: Seani men Type: SWAB Ordering Facility: [facility] Address: [address] [place] [address] Performed By: #### S APCR #### [facility] CLIA [id number] [address] [place] [address] [place] Hematocrit (Bld) [Volume fraction] 25.8 % Low 36.0-46.0 [facility] Comment on above: Order Comment: Speci men Type: SWAB Ordering Facility: [facility] Address: [address] [place] [address] Performed By: #### S APCR #### [facility] CLIA [id number] [address] [place] [address] [place] Hemoglobin (Bld) [Mass/Vol] 8.3 g/dL Low 11.5-15.5 [facility] Comment on above: Order Comment: Speci men Type: SWAB Ordering Facility: [facility] Address: [address] [place] [address] Performed By: #### S APCR #### [facility] CLIA [id number] [address] [place] [address] [place] MCH (RBC) [Entitic mass] 31.9 pg Normal 26.0-34.0 [facility] Comment on above: Order Comment: Speci men Type: SWAB Ordering Facility: [facility] Address: [address] [place] [address] Performed By: #### S APCR #### [facility] CLIA [id number] [address] [place] [address] [place] MCHC (RBC) [Mass/Vol] 32.2 g/dL Normal 30.5-36.0 [facility] Comment on above: Order Comment: Speci men Type: SWAB Ordering Facility: [facility] Address: [address] [place] [address] Performed By: #### S APCR #### [facility] CLIA [id number] [address] [place] [address] [place] MCV (RBC) [Entitic vol] 99.2 fL Normal 80.0-100.0 [facility] Comment on above: Order Comment: Speci men Type: SWAB Ordering Facility[facility] Address: [address] [place] [address] Performed By: #### S APCR #### [facility] CLIA [id number] [address] [place] [address] [place] Nucleated RBC (Bld) [#/Vol] 10*3/uL Normal <0.01 [facility] Comment on above: Order Comment: Speci men Type: SWAB Ordering Facility: [facility] Address: [address] [place] [address] Performed By: #### S APCR #### [facility] CLIA [id number] [address] [place] [address] [place] Platelet mean volume (Bld) [Entitic vol] 9.5 fL Normal 9.0-12.7 [facility] Comment on above: Order Comment: Speci men Type: SWAB Ordering Facility: [facility] Address: [address] [place] [address] Performed By: #### S APCR #### [facility] CLIA [id number] [address] [place] [address] [place] Platelets (Bld) [#/Vol] 52 10*3/uL Low 150-[address] [facility] Comment on above: Order Comment: Speci men Type: SWAB Ordering Facility[facility] Address: [address] [place] [address] Performed By: #### S APCR #### [facility] CLIA [id number] [address] [place] [address] [place] RBC (Bld) [#/Vol] 2.60 10*6/uL Low 3.90-5.20 [facility] Comment on above: Order Comment: Speci men Type: SWAB Ordering Facility[facility] Address: [address] [place] [address] Performed By: #### S APCR #### [facility] CLIA [id number] [address] [place] [address] [place] WBC (Bld) [#/Vol] 3.24 10*3/uL Low 3.70-11.00 [facility] Comment on above: Order Comment: Speci men Type: SWAB Ordering Facility[facility] Address: [address] [place] [address] Performed By: #### S APCR #### [facility] CLIA [id number] [address] [place] [address] [place] CONSULTon 05-02-2024 CONSULT HNO ID: [id number] Author: SYDNEY LOMAS APRN.SOLO Service: Palliative Care Author Type: Nurse Practitioner Type: Consults Filed: 05/02/2024 16:11 Note Text: PALLIATIVE MEDICINE INITIAL CONSULT To contact the [place] palliative medicine service from 5p - 8a on weekdays and anytime during the weekend, please page [phone] SERVICE DATE: 05/02/2024 PATIENT NAME: Pricila Hooker CONSULT TO [facility] PALLIATIVE CARE (AV,FV,HL,IR,BEVERLEY,ME,MM,MR,S P,VIRTUAL AT ) Consult performed by: Sydney Lomas APRN.DIRECTOR MARKETING Consult ordered by: Saurav Parkinson APRN.[facility] PALLIATIVE MEDICINE OUTPATIENT PROVIDER: No CURRENT ATTENDING PROVIDER: Luz Elena Cowart MD REFERRING PHYSICIAN: Luz Elena Cowart MD REASON FOR CONSULT/CHIEF CONSULT COMPLAINT: Diagnosis of serious illness Acute hypoxic and hypercapnic respiratory failure Primary Site of Disease/Medical Illness(es) Being Addressed: Acute on chronic hypoxic and hypercapnic respiratory failure RSV Endometrial cancer Weakness Subjective HISTORY OF PRESENT ILLNESS: Pricila Hooker is a 78 year old female who was admitted for shortness of breath, she is chronically on O2 at 3L. She is on bipap and hypercarbia is not improving significantly. She is agreeable to continuing bipap, no intubation. She has endometrial cancer and follows with Dr. Branham. Currently on chemo and immunotherapy. 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 CHF (congestive heart failure) (HCC) Immunotherapy induced Diabetes mellitus without mention of complication Endometrial cancer (HCC) GERD (gastroesophageal reflux disease) Hemorrhoids Hypercholesteremia Hypertension Neuropathy Obesity Osteoarthritis of multiple joints PAST SURGICAL HISTORY Procedure Laterality Date ABDOMINAL SURGERY HX ARTHRP KNE CONDYLEANDPLATU MEDIALANDLAT COMPARTMENTS 05/11/2011 Knee replacement, total right ARTHRP KNE CONDYLEANDPLATU MEDIALANDLAT COMPARTMENTS 01/2011 left CATARACT EXTRACTION HX Left COLONOSCOPY FLX DX W/COLLJ SPEC WHEN PFRMD 12/28/2007 Colonoscopy COLONOSCOPY FLX DX W/COLLJ SPEC WHEN PFRMD 06/17/2012 Colonoscopy COLONOSCOPY FLX DX W/COLLJ SPEC WHEN PFRMD 11/05/2017 Colonoscopy EGD W/O BRSH SPEC VARICIES INJ 11/25/2022 EYE SURGERY HX JOINT REPLACEMENT HX LAPS SURG CHOLECYSTECTOMY W/CHOLANGIOGRAPHY 01/04/2007 LAPS TOTAL HYSTERECT 250 GM/< W/RMVL TUBE/OVARY 07/24/2022 Exam under anesthesia, total laparoscopic hysterectomy, bilateral salpingo-oophorectomy, sentinel lymph node mapping with excision of bilateral pelvic sentinel lymph nodes, and extensive lysis of adhesions. PAST SURGICAL HISTORY OF N/A 05/11/2023 hx of heart cath Current Facility-Administered Medications Medication Dose Route Frequency atorvastatin 40 mg tab(s) (LIPITOR) 40 mg ORAL AT BEDTIME ipratropium-albuterol 3 mL nebulizer solution (DUONEB) 3 mL INHALATION q 4 H PRN ipratropium-albuterol 3 mL nebulizer solution (DUONEB) 3 mL INHALATION q 4 H aspirin 81 mg chewable tab(s) 81 mg ORAL DAILY amitriptyline 50 mg tab(s) (ELAVIL) 50 mg ORAL AT BEDTIME dextrose 40 % 15 g 15 g ORAL PRN Or glucagon 1 mg injection 1 mg INTRAMUSCULAR PRN Or dextrose 10% iv bolus 12.5 g INTRAVENOUS PRN insulin lispro injection (rapid acting) (ADMElog) SUBCUTANEOUS q 6 H azithromycin 500 mg in D5W 250 mL Vial-Bag (ZITHROMAX) 500 mg INTRAVENOUS DAILY cefTRIAXone iv piggyback 1 g in dextrose (iso-osmotic) 50 mL (ROCEPHIN) 1 g INTRAVENOUS q 24 H vancomycin dosing and monitoring per pharmacy OTHER As Directed methylPREDNISolone sod succinate(PF) 40 mg injection (SOLU-Medrol) 40 mg INTRAVENOUS q 24 H NaCl 0.9% iv flush bag 20 mL INTRAVENOUS PRN vancomycin iv piggyback 1.5 g in D5W 300 mL (VANCOCIN) 1.5 g INTRAVENOUS q 24 HR heparin 7,500 Units injection 7,500 Units SUBCUTANEOUS q 8 H miconazole 2 % 1 application topical powder 1 application TOPICAL BID gabapentin 100 mg cap(s) (NEURONTIN) 100 mg ORAL BID ALLERGIES No Known Allergies SOCIAL HISTORY Support system Sister Drug Use: No Alcohol Use: No Tobacco Use: Types: Cigarettes REVIEW OF SYSTEMS Unable to obtain secondary to severe respiratory distress Review of Systems Unable to perform ROS: Severe respiratory distress Objective PHYSICAL EXAMINATION Vital Signs: BP 145/67 Pulse 77 Temp 36.8 ?C (98.2 ?F) (Axillary) Resp 19 Ht 170.2 cm (5' 7") Wt (!) 140.2 kg (309 lb 1.4 oz) SpO2 94% BMI 48.41 kg/m? Physical Exam Constitutional: Appearance: She is well-developed. HENT: Head: Normocephalic and atraumatic. Right Ear: External ear normal. Left Ear: External ear normal. Cardiovascular: Rate and Rhythm: Normal rate. Pulmonary: Effort: Tachypnea and accessory muscle usage present. Musculoskeletal: General: Normal range of motion. Skin: General: Skin is (more content not included)... Normal [facility] CONSULT PROGon 05-02-2024 CONSULT PROG HNO ID: [id number] Author: QUINCY GILBERT RPh Service: Pharmacy Author Type: Pharmacist Type: Consult Progress Note Filed: 05/02/2024 07:00 Note Text: PHARMACY VANCOMYCIN DOSING NOTE Patient Name: Pricila Hooker Admission Date: 05/02/2024 Date of Consult: 05/02/2024 Time of Consult: 6:58 AM Indication: Respiratory infection Goal Range: 15-20 mcg/mL RECOMMENDATIONS/PLAN: Pharmacy consulted for vancomycin dosing for Pricila Hooker, a 78 year old female. 1. Patient is currently ordered Vancomycin 1 g IV q12h. Today is day 1 of therapy. Patient received first dose of vancomycin 2gm on 05/01 @2230 2. No vancomycin level has been drawn for this dosing regimen. 3. Will adjust vancomycin to 1.5 g with a dosing interval of q24h. Due to potential accumulation and patient receiving 2gm load. 4. The next vancomycin level will be ordered for 05/04 unless clinically indicated sooner. (Pharmacy will order) 5. S. aureus nasal PCR swab ordered We will follow patient renal function, vancomycin levels and doses with you during the course of therapy. Additional recommendations will appear in follow up notes. If you have any questions, please contact pharmacy at [phone]. Age: [age] year old Allergies: ALLERGIES No Known Allergies Last 3 Encounter Wt Readings: Date: Wt: 05/02/2024 140.2 kg (309 lb 1.4 oz) 05/01/2024 142.8 kg (314 lb 12.8 oz) 04/25/2024 131.5 kg (290 lb) Last 1 Encounter Ht Readings: Date: Ht: 05/02/2024 170.2 cm (5' 7") CrCl: 56 mL/min Temp (24hrs), Av.3 ?C (99.2 ?F), Min:37.3 ?C (99.2 ?F), Max:37.3 ?C (99.2 ?F) - Current Temp: 37.3 ?C (99.2 ?F) Labs BUN (mg/dL) Date Value 05/01/2024 30 (H) 04/25/2024 22 (H) 04/14/2024 21 Creatinine (mg/dL) Date Value 05/01/2024 1.22 (H) 04/25/2024 1.00 (H) 04/14/2024 0.97 (H) WBC (k/uL) Date Value 05/01/2024 3.70 04/25/2024 3.77 04/14/2024 4.08 Vancomycin Levels: No results found for: SAVAGE Gilbert [facility] ED NOTEon 05-02-2024 ED NOTE HNO ID: [id number] Author: BECKA GALVEZ RN Service: Emergency Medicine Author Type: Registered Nurse Type: ED Notes Filed: 05/02/2024 07:22 Note Text: [facility] Critical Care Team at bedside. Report given to transfer team. [facility] ED NOTE HNO ID: [id number] Author: BECKA GALVEZ RN Service: Emergency Medicine Author Type: Registered Nurse Type: ED Notes Filed: 05/02/2024 04:27 Note Text: Received Bed Assignment: Accepting Hospital: [facility] Bed Assignment: ICU-1 Nurse Report: [phone] CCT ETA 30 minutes. ETA 0500 Normal [facility] HISTORY PHYSICALon HISTORY PHYSICAL HNO ID: [id number] Author: SAURAV PARKINSON APRN.DIRECTOR MARKETING Service: Critical Care Author Type: Nurse Practitioner Type: H&P Filed: 05/02/2024 06:22 Note Text: SERVICE DATE: 05/02/2024 SERVICE TIME: 0620 AM [facility] HANDP NOTE HPI: This is a 78 year old female with a PMHx significant for ALEXX, HTN, GERD, Chronic hypoxemic respiratory failure (3L NC), Metastatic endometrial adenocarcinoma w/ progression of R lung nodule s/p radiation (Follows with Dr. Branham. Previously recieving Carboplatin, paclitaxel and pembrolizumab; plan to start Gemcitabine 05/02/24, but cancelled d/t pt's sister having concerns for her weakness/ability to get patient to appointments), DM II, neuropathy, and COPD who presented to the [place] ED on 05/01/24 with worsening shortness of breath. She was found to be hypoxic and hypercarbic requiring BiPAP. She was recently treated for a UTI at [facility]. Per chart review, the patient's sister had wanted to discuss hospice options/further chemo plans moving forward. She will be admitted to the [place] ICU for further work-up and mangement of acute on chronic respiratory failure. ED Work-up: - Labs revealed: Na: 128, K:5.7, JACY:BUN/Cre:30/1.22, BNP: 1,638, Alk phos: 141, ALT: 62, AST:74. HGB: 9.1, PLT: 77 - ABG: pH: 7.28, pCO2:62, pO2:210 HCO3:29-> Placed on BiPAP 15/10 80%. Repeat ABG:pH:7.25, pCO2:64, PO2:116, HCO3:28 - CTPE: Nondiagnostic for PE 2/2 severe artifact. Atelectasis consolidation in the RLL. Small bilateral pleural effusions. Enlarged AME pulmonary nodule. Lesions at the posterior R costophrenic angle. - CXR: underexpanded lungs with questionable effusions. - UA: 1+ hemaglobin, 2+ protein, Many bacteria. - Positive for RSV. - She recieved nebs, 1L IVF, Cefepime, and Vancomycin. - HST: 21->22. EKG: NSR, HR:[address]/T wave abnormalities - CODE status was established as a DNR-CCA/DNI. Upon arrival to the ICU, pt is AOx3. She attempted to have a conversation/answer questions but becomes dyspneic. She is able to answer simple questions. BiPAP adjusted to 15/8 40% with adequate TV. Pt endorses feeling SOB, fatigued, MCKENZIE and R sided pleuritic pain. Denies CP, N/V, fever or chills. Subjective 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 CHF (congestive heart failure) (HCC) Immunotherapy induced Diabetes mellitus without mention of complication Endometrial cancer (HCC) GERD (gastroesophageal reflux disease) Hemorrhoids Hypercholesteremia Hypertension Neuropathy Obesity Osteoarthritis of multiple joints PAST SURGICAL HISTORY Procedure Laterality Date ABDOMINAL SURGERY HX ARTHRP KNE CONDYLEANDPLATU MEDIALANDLAT COMPARTMENTS 05/11/2011 Knee replacement, total right ARTHRP KNE CONDYLEANDPLATU MEDIALANDLAT COMPARTMENTS 01/2011 left CATARACT EXTRACTION HX Left COLONOSCOPY FLX DX W/COLLJ SPEC WHEN PFRMD 12/28/2007 Colonoscopy COLONOSCOPY FLX DX W/COLLJ SPEC WHEN PFRMD 06/17/2012 Colonoscopy COLONOSCOPY FLX DX W/COLLJ SPEC WHEN PFRMD 11/05/2017 [facility]ICIES INJ 11/25/2022 EYE SURGERY HX JOINT REPLACEMENT HX LAPS SURG CHOLECYSTECTOMY W/CHOLANGIOGRAPHY 01/04/2007 LAPS TOTAL HYSTERECT 250 GM/< W/RMVL TUBE/OVARY 07/24/2022 Exam under anesthesia, total laparoscopic hysterectomy, bilateral salpingo-oophorectomy, sentinel lymph node mapping with excision of bilateral pelvic sentinel lymph nodes, and extensive lysis of adhesions. PAST SURGICAL HISTORY OF N/A 05/11/2023 hx of heart cath FAMILY HISTORY Problem Relation Age of Onset Heart Mother irregular heart rate Colon Cancer Mother Stroke Mother Heart Father from heart attack Colon Cancer Maternal Grandfather Social History Occupational History Not on file Tobacco Use Smoking status: Former Packs/day: 0.00 Years: 0.5 packs/day for 20.0 years (10.0 ttl pk-yrs) Types: Cigarettes Start date: 11/05/1957 Quit date: 11/05/1977 Years since quittin.5 Smokeless tobacco: Never Vaping Use Vaping status: Never Used Substance and Sexual Activity Alcohol use: No Drug use: No Sexual activity: Not Currently ALLERGIES No Known Allergies PRIOR TO ADMISSION MEDICATIONS No medications prior to admission. Objective Admission Weight: VITAL SIGNS There were no vitals taken for this visit. RESPIRATORY Physical Exam Vitals reviewed. Constitutional: Appearance: She is obese. She is ill-appearing. HENT: Head: Normocephalic. Mouth/Throat: Mouth: Mucous membranes are dry. Pharynx: Oropharynx is clear. Cardiovascular: Rate and Rhythm: Normal rate. Pulmonary: Effort: Pulmonary effort is normal. Breath sounds: Wheezing present. Abdominal: General: Bowel sounds are normal. There is distension. Palpations: Abdomen is soft. Musculoskeletal: Right lower leg: Edema present. Left lo (more content not included)... Normal [facility] Magnesium [Mass/Vol] 1.8 mg/dL Normal 1.7-2.3 [facility] Comment on above: Order Comment: Speci men Type: BLOOD SPECIMENOrdering Facility: [facility] [place] Address: [address] [place], [place] [id number] Performed By: #### 2 4321-2, 12571-9, 2777-1, 08903-8 ####[facility] [id number] [place] [address] [place] Phosphate SerPl-mCncon 05-02 Phosphate [Mass/Vol] 2.9 mg/dL Normal 2.7-4.8 [facility] Comment on above: Order Comment: Speci men Type: BLOOD SPECIMENOrdering Facility: [facility] [place] Address: [address] [place] [address] Performed By: #### 2 4321-2, 85645-9, 2777-1, 90023-4 ####[facility] [id number] [address] Procalcitonin SerPl-mCncon 0 05-02-2024 Procalcitonin [Mass/Vol] 1.17 ng/mL High <0.09 [facility] Comment on above: Order Comment: Speci men Type: BLOOD SPECIMENOrdering Facility: [facility] [place] Address: [facility] [address] Result Comment: For a guided interpretation of test results, please visit the Change in Procalcitonin Calculator, [email or web address]. Performed By: #### 2 4321-2, 40387-0, 2777-1, 17535-9 ####[facility]ORATORYCLIA [id number] [place] [id number] [facility] SOCIAL WORKon 05-02-2024 SOCIAL WORK HNO ID: [id number] Author: KARTHIK NUNES LISW Service: Palliative Care Author Type: Assistant Surveyor Type: Social Work Filed: 05/02/2024 17:11 Note Text: PALLIATIVE MEDICINE SOCIAL WORK PROGRESS NOTE Date of Service: May 02, 2024 Pricila Hooker is being seen for an initial/follow up Palliative Care Social Work visit. Today's visit includes: patient TOPICS ADDRESSED: coping/support and Introduction to services CLINICAL ASSESSMENT: SERGIO along with SOLO Gayle met with the pt at bedside to introduce services and offer emotional support. The pt has metastatic endometrial cancer. She was admitted for acute on chronic respiratory failure found to have RSV. The pt is agreeable to Pall Med following along. She is currently on bipap. She is agreeable to all care she is receiving, including bipap. She did not appeared distressed. Pall Med will continue to follow for ongoing goals of care and to monitor the pt's response to treatment. INTERVENTIONS/REFERRALS TO BE PROVIDED:Monitor patient response to treatment, Communicate pertinent medical/psychosocial information to Palliative Medicine team, and Provide emotional support to patient/family PLAN: Will continue to monitor patient/family coping and remain available for psychosocial intervention as patient/family system integrate illness trajectory and its impact on their lives and Palliative care education ongoing; scope of practice and philosophy discussed. Palliative care contact info given to the pt. SERGIO Fleming Normal [facility] STAPHYLOCOCCUS AUREUS AND MR SA SCREEN, PCR, NASALon 05-02-2024 S. aureus and MRSA panel PEDRO LUIS+probe (Nose) Not detected Normal Not Detected [facility] Comment on above: Order Comment: Speci men Type: SWAB [facility] Facility: [facility] [place] Address: [address] [place] [address] Performed By: #### S APCR #### [facility] CLIA [id number] [address] [place] [address] [place] [address] [place] US ABD RIGHT UPPER QUADRANTo n 05-02-2024 US ABD RIGHT UPPER QUADRANT * * *Final Report* * * DATE OF EXAM: May 02 2024 7:49AM MDU 1032 - US ABD RIGHT UPPER QUADRANT / PROCEDURE REASON: Abn liver function tests (LFTs) * * * * Physician Interpretation * * * * EXAMINATION: RIGHT UPPER QUADRANT AND SPLEEN ULTRASOUND CLINICAL HISTORY: 78 years old Female with Abn liver function tests (LFTs) TECHNIQUE: Sonography of the right upper quadrant and spleen was performed. Images were obtained and stored in a permanent archive. MQ: URUQ_2 COMPARISON: CT abdomen pelvis 04/10/2024, 01/18/2024 RESULT: Limitations: Suboptimal visualization due to body habitus and patient's inability to tolerate decubitus positioning limiting acoustic windows. Pancreas: Normal sonographic appearance of the visualized portion.. Liver: Echotexture: Normal, homogeneous. Echogenicity: Normal Surface contour: Slightly nodular Lesions: None apparent noting that portions of the liver were not well visualized. Subcapsular lesion versus posterior RIGHT hepatic lobe lesion visualized on recent CT and subcentimeter LEFT hepatic lobe lesion is not well visualized sonographically. Biliary: No intrahepatic biliary duct dilation. CBD: 0.7 cm at the hilum. Gallbladder: Prior cholecystectomy Right Kidney: No hydronephrosis. Left kidney: No hydronephrosis. Spleen: Craniocaudal length: 14.8 cm, enlarged. Lesions: None apparent. Ascites: None. IMPRESSION: Mildly nodular liver contour suggesting cirrhosis. Splenomegaly. Printer Floor Covering Assistant: KRISTOFER Transcribe Date/Time: May 02 2024 7:49A Dictated by : KAYLEN SOTO DO This examination was interpreted and the report reviewed and electronically signed by: KAYLEN SOTO DO on May 02 2024 8:00AM EST [id number] [facility] US ABD SPLEEN -NBon 05-03-19 US ABD SPLEEN -NB * * *Final Report* * * DATE OF EXAM: May 02 2024 7:49AM DINA 1232 - US ABD SPLEEN -NB / PROCEDURE REASON: Abn liver function tests (LFTs) * * * * Physician Interpretation * * * * EXAMINATION: RIGHT UPPER QUADRANT AND SPLEEN ULTRASOUND CLINICAL HISTORY: 78 years old Female with Abn liver function tests (LFTs) TECHNIQUE: Sonography of the right upper quadrant and spleen was performed. Images were obtained and stored in a permanent archive. MQ: URUQ_2 COMPARISON: CT abdomen pelvis 04/10/2024, 01/18/2024 RESULT: Limitations: Suboptimal visualization due to body habitus and patient's inability to tolerate decubitus positioning limiting acoustic windows. Pancreas: Normal sonographic appearance of the visualized portion.. Liver: Echotexture: Normal, homogeneous. Echogenicity: Normal Surface contour: Slightly nodular Lesions: None apparent noting that portions of the liver were not well visualized. Subcapsular lesion versus posterior RIGHT hepatic lobe lesion visualized on recent CT and subcentimeter LEFT hepatic lobe lesion is not well visualized sonographically. Biliary: No intrahepatic biliary duct dilation. CBD: 0.7 cm at the hilum. Gallbladder: Prior cholecystectomy Right Kidney: No hydronephrosis. Left kidney: No hydronephrosis. Spleen: Craniocaudal length: 14.8 cm, enlarged. Lesions: None apparent. Ascites: None. IMPRESSION: Mildly nodular liver contour suggesting cirrhosis. Splenomegaly. Printer Floor Covering Assistant: KRISTOFER Transcribe Date/Time: May 02 2024 7:49A Dictated by : KAYLEN SOTO DO This examination was interpreted and the report reviewed and electronically signed by: KAYLEN SOTO DO on May 02 2024 8:00AM EST [id number] [facility] Urinalysis complete panel (U )on 05-02-2024 Bacteria LM.HPF (Urine sed) [#/Area] Many Abnormal None Seen [facility] Comment on above: Order Comment: Speci men Type: BLOOD SPECIMEN [facility] Facility: [facility] Address: [address] [place] [address] Performed By: #### H STNT #### [facility] CLIA [id number] [address] [place] [address] [facility] [place] Bilirubin Ql (U) Negative Normal Negative [facility] Comment on above: Order Comment: Speci men Type: BLOOD SPECIMEN Ordering Facility: [facility] Address: [address] [place] [address] Performed By: #### H STNT #### [facility] CLIA [id number] [address] [place] [address] [facility] [place] Clarity (Unsp spec) Clear Normal Clear [facility] Comment on above: Order Comment: Speci men Type: BLOOD SPECIMEN [facility] Facility: [facility] Address: [address] [place] [address] Performed By: #### H STNT #### [facility] CLIA [id number] [address] [place] [address] [facility] [place] Color (U) Yellow Normal Yellow [facility] Comment on above: Order Comment: Speci men Type: BLOOD SPECIMEN Ordering Facility: [facility] Address: [address] [place] [address] Performed By: #### H STNT #### [facility] CLIA [id number] [address] [place] [address] [facility] Epithelial cells LM.HPF (Urine sed) [#/Area] Few Abnormal None Seen [facility] Comment on above: Order Comment: Speci men Type: BLOOD SPECIMEN Ordering Facility: [facility] Address: [address] [place] [address] Performed By: #### H STNT #### [facility] CLIA [id number] [address] [place] [address] [facility] [place] Glucose Test strip (U) [Mass/Vol] Negative Normal Negative [facility] Comment on above: Order Comment: Speci men Type: BLOOD SPECIMEN [facility] Facility: [facility] Address: [facility] [place] [address] Performed By: #### H STNT #### [facility] CLIA [id number] [address] [place] [address] [place] Granular casts (Urine sed) [#/Area] 1-3 /LPF Abnormal 0 /LPF [facility] Comment on above: Order Comment: Speci men Type: BLOOD SPECIMEN [facility] Facility: [facility] Address: [address] [place] [address] Performed By: #### H STNT #### [facility] CLIA [id number] [address] [place] [address] [place] Hemoglobin Ql (U) 1+ Abnormal Negative [facility] Comment on above: Order Comment: Speci men Type: BLOOD SPECIMEN [facility] Facility: [facility] Address: [address] [place] [address] Performed By: #### H STNT #### [facility] CLIA [id number] [address] [place] [address] [facility] [place] Hyaline casts (Urine sed) [#/Area] 1-3 /LPF Abnormal 0 /LPF [facility] Comment on above: Order Comment: Speci men Type: BLOOD SPECIMEN [facility]: [facility] Address: [address] [place] [address] Performed By: #### H STNT #### [facility] CLIA [id number] [address] [place] [address] [facility] [place] Ketones Ql (U) Negative Normal Negative [facility] Comment on above: Order Comment: Speci men Type: BLOOD SPECIMEN [facility] Facility: [facility] Address: [address] [place] [address] Performed By: #### H STNT #### [facility] CLIA [id number] [address] [place] [id number] [facility] Leukocyte esterase Test strip Ql (U) Negative Normal Negative [facility] Comment on above: Order Comment: Speci men Type: BLOOD SPECIMEN [facility] Facility: [facility] Address: [address] [place] [address] Performed By: #### H STNT #### [facility] CLIA [id number] [address] [place] [address] [place] Nitrite Ql (U) Negative Normal Negative [facility] Comment on above: Order Comment: Speci men Type: BLOOD SPECIMEN Order[facility] Facility: [facility] Address: [address] [place] [address] Performed By: #### H STNT #### [facility] CLIA [id number] [address] [place] [address] [place] pH (U) 5.5 [pH] Normal 5.0-8.0 [facility] Comment on above: Order Comment: Speci men Type: BLOOD SPECIMEN [facility]ing Facility: [facility] Address: [address] [place] [address] Performed By: #### H STNT #### [facility] CLIA [id number] [address] [place] [address] Protein (U) [Mass/Vol] 2+ Abnormal Negative [facility] Comment on above: Order Comment: Speci men Type: BLOOD SPECIMEN [facility]ing Facility: [facility] Address: [address] [place] [address] Performed By: #### H STNT #### [facility] CLIA [id number] [address] [place] [address] [place] RBC LM.HPF (Urine sed) [#/Area] 0-3 /HPF Normal 0-3 /HPF [facility] Comment on above: Order Comment: Speci men Type: BLOOD SPECIMEN [facility] Facility: [facility] Address: [address] [place] [address] Performed By: #### H STNT #### [facility] CLIA [id number] [address] [place] [address] Specific gravity (U) [Rel density] 1.020 Normal 1.005-1.030 [facility] Comment on above: Order Comment: Speci men Type: BLOOD SPECIMEN [facility] Facility: [facility] Address: [address] [place] [address] Performed By: #### H STNT #### [facility] CLIA [id number] [address] [place] [address] [facility] Urobilinogen Ql (U) 0.2 EU/dL Normal 0.2-1.0 EU/dL [facility] Comment on above: Order Comment: Speci men Type: BLOOD SPECIMEN Ordering Facility: [facility] [place] Address: [address] [place] [address] Performed By: #### H STNT #### [facility] CLIA [id number] [address] [place] WBC LM.HPF (Urine sed) [#/Area] 0-5 /HPF Normal 0-5 /HPF [facility] Comment on above: Order Comment: Speci men Type: BLOOD SPECIMEN Order[facility] Facility: [facility] [place] Address: [address] [place] [address] Performed By: #### H STNT #### [facility] CLIA [id number] [address] [place] [address] [place] ARTERIAL BLOOD GASESon 05-01 Base excess Calc (Bld) [Moles/Vol] 1 mmol/L Normal 0-2 [facility] Comment on above: Order Comment: Speci men Type: BLOOD SPECIMEN Order[facility] Facility: [facility] [place] Address: [address] [place] [address] Performed By: #### S LACTR #### [facility] CLIA [id number] [address] [place] [address] Body temperature 97.16 [degF] Normal [facility] Comment on above: Order Comment: Speci men Type: BLOOD SPECIMEN Order[facility] Facility: [facility] [place] Address: [address] [place] [address] Performed By: #### S LACTR #### [facility] CLIA [id number] [address] [place] [address] [place] Calcium.ionized (Bld) [Mass/Vol] 1.25 mmol/L Normal 1.08-1.30 [facility] Comment on above: Order Comment: Speci men Type: BLOOD SPECIMEN [facility] Facility: [facility] [place] Address: [address] [place] [address] Performed By: #### S LACTR #### [facility] CLIA [id number] [address] [place] [address] [place] Calcium.ionized adjusted to pH 7.4 (BldA) [Moles/Vol] 1.16 mmol/L Normal 1.08-1.30 [facility] Comment on above: Order Comment: Speci men Type: BLOOD SPECIMEN Ordering Facility: [facility] [place] Address: [address] [place] [address] Performed By: #### S LACTR #### [facility] CLIA [id number] [address] [place] [address] [place] Carboxyhemoglobin (BldA) [Mass fraction] 1.3 % Normal 0.0-2.0 [facility] Comment on above: Order Comment: Speci men Type: BLOOD SPECIMEN Order[facility] Facility: [facility] Address: [address] [place] [address] Result Comment: Carb oxyhemoglobin Reference Range for Smokers: 2.0-8.0% Performed By: #### S LACTR #### [facility] CLIA [id number] [address] [place] [address] [place] Chloride [Moles/Vol] 94 mmol/L Low 97-105 [facility] Comment on above: Order Comment: Speci men Type: BLOOD SPECIMEN Ordering Facility: [facility] [place] Address: [address] [place] [address] Performed By: #### S LACTR #### [facility] CLIA [id number] [address] [place] [address] [place] CO2 (Bld) [Partial pressure] 62 mm Hg High 36-46 [facility] Comment on above: Order Comment: Speci men Type: BLOOD SPECIMEN Ordering Facility: [facility] Address: [address] [place] [address] Performed By: #### S LACTR #### [facility] CLIA [id number] [address] [place] [address] [place] CO2 adjusted to patient's actual temperature (Bld) [Partial pressure] 60 mmHg High 36-46 [facility] Comment on above: Order Comment: Speci men Type: BLOOD SPECIMEN Ordering Facility: [facility] [place] Address: [address] [place] [address] Performed By: #### S LACTR #### [facility] CLIA [id number] [address] [place] [address] [place] FIO2 80 % Normal [facility] Comment on above: Order Comment: Speci men Type: BLOOD SPECIMEN Ordering Facility: [facility] Address: [address] [place] [address] Performed By: #### S LACTR #### [facility] CLIA [id number] [address] [place] [address] [place] Glucose [Mass/Vol] 197 mg/dL High 60-105 [facility] Comment on above: Order Comment: Speci men Type: BLOOD SPECIMEN Ordering Facility: [facility] Address: [address] [place] [address] Performed By: #### S LACTR #### [facility] CLIA [id number] [address] [place] [address] [place] HCO3 (Bld) [Moles/Vol] 29 mmol/L High 22-26 [facility] Comment on above: Order Comment: Speci men Type: BLOOD SPECIMEN Ordering Facility: [facility] [place] Address: [facility] [place] [address] Performed By: #### S LACTR #### [facility] CLIA [id number] [address] [place] [address] [place] Hematocrit (Bld) [Volume fraction] 31.7 % Low 36.0-46.0 [facility] Comment on above: Order Comment: Speci men Type: BLOOD SPECIMEN Ordering Facility: [facility] [place] Address: [address] [place] [address] Performed By: #### S LACTR #### [facility] CLIA [id number] [address] [place] [address] [place] Hemoglobin (Bld) [Mass/Vol] 10.3 g/dL Low 11.5-15.5 [facility] Comment on above: Order Comment: Speci men Type: BLOOD SPECIMEN Ordering Facility: [facility] Address: [address] [place] [address] Performed By: #### S LACTR #### [facility] CLIA [id number] [address] [place] [address] [place] Lactate [Moles/Vol] 0.7 mmol/L Normal 0.5-2.2 [facility] Comment on above: Order Comment: Speci men Type: BLOOD SPECIMEN Ordering Facility: [facility] Address: [address] [place] [address] Performed By: #### S LACTR #### [facility] CLIA [id number] [address] [place] [address] [place] Methemoglobin (Bld) [Mass fraction] 1.0 % Normal 0.0-1.5 [facility] Comment on above: Order Comment: Speci men Type: BLOOD SPECIMEN Ordering Facility: [facility] Address: [address] [place] [address] Performed By: #### S LACTR #### [facility] CLIA [id number] [address] [place] [address] [place] Oxygen (Bld) [Partial pressure] 210 mm Hg High 85-95 [facility] Comment on above: Order Comment: Speci men Type: BLOOD SPECIMEN Ordering Facility: [facility] Address: [address] [place] [address] Performed By: #### S LACTR #### [facility] CLIA [id number] [address] [place] [address] [place] Oxygen adjusted to patient's actual temperature (Bld) [Partial pressure] 206 mmHg High 85-95 [facility] Comment on above: Order Comment: Speci men Type: BLOOD SPECIMEN Ordering Facility: [facility] Address: [address] [place] [address] Performed By: #### S LACTR #### [facility] CLIA [id number] [address] [place] [address] [facility] Oxyhemoglobin (BldA) [Mass fraction] 98 % Normal 95-98 [facility] Comment on above: Order Comment: Speci men Type: BLOOD SPECIMEN Ordering Facility: [facility] Address: [address] [place] [address] Performed By: #### S LACTR #### [facility] CLIA [id number] [address] [place] [address] [facility] pH (Bld) 7.28 [pH] Low 7.35-7.45 [facility] Comment on above: Order Comment: Speci men Type: BLOOD SPECIMEN Ordering Facility: [facility] Address: [address] [place] [address] Performed By: #### S LACTR #### [facility] CLIA [id number] [address] [place] [address] [facility] pH adjusted to patient's actual temperature (Bld) 7.29 Low 7.35-7.45 [facility] Comment on above: Order Comment: Speci men Type: BLOOD SPECIMEN Ordering Facility: [facility] Address: [address] [place] [address] Performed By: #### S LACTR #### [facility] CLIA [id number] [address] [place] [address] [place] PO2 / FIO2 RATIO 263 mmHg Low >300 [facility] Comment on above: Order Comment: Speci men Type: BLOOD SPECIMEN Ordering Facility: [facility] Address: [address] [place] [address] Performed By: #### S LACTR #### [facility] CLIA [id number] [address] [place] [address] [place] Potassium [Moles/Vol] 5.3 mmol/L High 3.5-5.0 [facility] Comment on above: Order Comment: Speci men Type: BLOOD SPECIMEN Ordering Facility: [facility] Address: [address] [place] [address] Performed By: #### S LACTR #### [facility] CLIA [id number] [address] [place] [address] Sodium [Moles/Vol] 129 mmol/L Low 136-144 [facility] Comment on above: Order Comment: Speci men Type: BLOOD SPECIMEN Ordering Facility: [facility] Address: [address] [place] [address] Performed By: #### S LACTR #### [facility] CLIA [id number] [address] [place] [address] AST [Catalytic activity/Vol] on 05-01-2024 AST With P-5'-P [Catalytic activity/Vol] 74 U/L High 13-35 [facility] Comment on above: Order Comment: Speci men Type: BLOOD SPECIMEN Ordering Facility: [facility] Address: [address] [place] [address] Performed By: #### H STNT #### [facility] CLIA [id number] [address] [place] [address] Bacteria Bld Culton 05-02-19 25 Bacteria identified Cx Nom (Bld) CULTURE, BLOOD: No growth 5 days Normal [facility] Comment on above: Performed By: #### 6 00-7 #### [facility] CLIA [id number] [address] Performed By: #### 6 00-7 ####[facility] [id number] [address] CBC W Auto Differential pane l (Bld)on 05-01-2024 Basophils (Bld) [#/Vol] 10*3/uL Normal <0.[address] [facility] Comment on above: Order Comment: Speci men Type: BLOOD SPECIMEN Ordering Facility: [facility] Address: [address] [place] [address] Performed By: #### H STNT #### [facility] CLIA [id number] [address] [place] [address] [facility] Basophils/100 WBC (Bld) 0.3 % Normal A [facility] Comment on above: Order Comment: Speci men Type: BLOOD SPECIMEN Ordering Facility: [facility] Address: [address] [place] [address] Performed By: #### H STNT #### [facility] CLIA [id number] [address] [place] [address] [facility] Differential cell count method Nom (Bld) Auto Normal [facility] Comment on above: Order Comment: Speci men Type: BLOOD SPECIMEN Ordering Facility: [facility] Address: [address] [place] [address] Performed By: #### H STNT #### [facility] CLIA [id number] [address] [place] [address] [place] Eosinophils (Bld) [#/Vol] 10*3/uL Normal <0.46 [facility] Comment on above: Order Comment: Speci men Type: BLOOD SPECIMEN Ordering Facility: [facility] Address: [address] [place] [address] Performed By: #### H STNT #### [facility] CLIA [id number] [address] [place] [address] [facility] Eosinophils/100 WBC (Bld) 0.3 % Normal [facility] Comment on above: Order Comment: Speci men Type: BLOOD SPECIMEN Ordering Facility: [facility] Address: [address] [place] [address] Performed By: #### H STNT #### [facility] CLIA [id number] [address] [place] [address] [place] Erythrocyte distribution width (RBC) [Ratio] 16.6 % High 11.5-15.0 [facility] Comment on above: Order Comment: Speci men Type: BLOOD SPECIMEN Ordering Facility: [facility] Address: [address] [place] [address] Performed By: #### H STNT #### [facility] CLIA [id number] [address] [place] [address] [place] Hematocrit (Bld) [Volume fraction] 28.6 % Low 36.0-46.0 [facility] Comment on above: Order Comment: Speci men Type: BLOOD SPECIMEN Ordering Facility: [facility] Address: [address] [place] [address] Performed By: #### H STNT #### [facility] CLIA [id number] [address] [place] [address] [place] Hemoglobin (Bld) [Mass/Vol] 9.1 g/dL Low 11.5-15.5 [facility] Comment on above: Order Comment: Speci men Type: BLOOD SPECIMEN Ordering Facility: [facility] Address: [address] [place] [address] Performed By: #### H STNT #### [facility] CLIA [id number] [address] [place] [address] [place] Immature granulocytes (Bld) [#/Vol] 0.04 10*3/uL Normal <0.10 [facility] Comment on above: Order Comment: Speci men Type: BLOOD SPECIMEN Ordering Facility: [facility] Address: [address] [place] [address] Performed By: #### H STNT #### [facility] CLIA [id number] [address] [place] [address] [place] Immature granulocytes/100 WBC (Bld) 1.1 % Normal [facility] Comment on above: Order Comment: Speci men Type: BLOOD SPECIMEN Ordering Facility: [facility] Address: [address] [place] [address] Performed By: #### H STNT #### [facility] CLIA [id number] [address] [place] [address] [place] Lymphocytes (Bld) [#/Vol] 0.16 10*3/uL Low 1.00-4.00 [facility] Comment on above: Order Comment: Speci men Type: BLOOD SPECIMEN Ordering Facility: [facility] Address: [address] [place] [address] Performed By: #### H STNT #### [facility] CLIA [id number] [address] [place] [address] [facility] Lymphocytes/100 WBC (Bld) 4.3 % Normal [facility] Comment on above: Order Comment: Speci men Type: BLOOD SPECIMEN Ordering Facility: [facility] Address: [address] [place] [address] Performed By: #### H STNT #### [facility] CLIA [id number] [address] [place], [place] [address] [place] [address] MCH (RBC) [Entitic mass] 31.8 pg Normal 26.0-34.0 [facility] Comment on above: Order Comment: Speci men Type: BLOOD SPECIMEN Ordering Facility: [facility] Address: [address] [place] [address] Performed By: #### H STNT #### [facility] CLIA [id number] [address] [place] [address] [facility] MCHC (RBC) [Mass/Vol] 31.8 g/dL Normal 30.5-36.0 [facility] Comment on above: Order Comment: Speci men Type: BLOOD SPECIMEN Ordering Facility: [facility] Address: [address] [place] [address] Performed By: #### H STNT #### [facility] CLIA [id number] [address] [place] [address] [place] MCV (RBC) [Entitic vol] 100.0 fL Normal 80.0-100.0 [facility] Comment on above: Order Comment: Speci men Type: BLOOD SPECIMEN Ordering Facility: [facility] Address: [address] [place] [address] Performed By: #### H STNT #### [facility] CLIA [id number] [address] [place] [address] [place] Monocytes (Bld) [#/Vol] 0.24 10*3/uL Normal <0.87 [facility] Comment on above: Order Comment: Speci men Type: BLOOD SPECIMEN Ordering Facility: [facility] Address: [address] [place] [address] Performed By: #### H STNT #### [facility] CLIA [id number] [address] [place] [address] [place] Monocytes/100 WBC (Bld) 6.5 % Normal [facility] Comment on above: Order Comment: Speci men Type: BLOOD SPECIMEN Ordering Facility: [facility] Address: [address] [place] [address] Performed By: #### H STNT #### [facility] CLIA [id number] [address] [place], [place] [address] [place] [address] [place] Neutrophils (Bld) [#/Vol] 3.24 10*3/uL Normal 1.45-7.50 [facility] Comment on above: Order Comment: Speci men Type: BLOOD SPECIMEN Ordering Facility: [facility] Address: [address] [place] [address] Performed By: #### H STNT #### [facility] CLIA [id number] [address] [place], [place] [address] [place] [address] [place] Neutrophils/100 WBC (Bld) 87.5 % Normal [facility] Comment on above: Order Comment: Speci men Type: BLOOD SPECIMEN Ordering Facility: [facility] Address: [address] [place] [address] Performed By: #### H STNT #### [facility] CLIA [id number] [address] [place] [address] [place] Nucleated RBC (Bld) [#/Vol] Normal [facility] Comment on above: Order Comment: Speci men Type: BLOOD SPECIMEN Ordering Facility: [facility] Address: [address] [place] [address] Performed By: #### H STNT #### [facility] CLIA [id number] [address] [place] [address] [place] Nucleated RBC/100 WBC (Bld) [Ratio] Normal [facility] Comment on above: Order Comment: Speci men Type: BLOOD SPECIMEN Ordering Facility: [facility] Address: [address] [place] [address] Performed By: #### H STNT #### [facility] CLIA [id number] [address] [place] [address] [place] Platelet mean volume (Bld) [Entitic vol] 10.6 fL Normal 9.0-12.7 [facility] Comment on above: Order Comment: Speci men Type: BLOOD SPECIMEN Ordering Facility: [facility] Address: [address] [place] [address] Performed By: #### H STNT #### [facility] CLIA [id number] [address] [place] [address] [place] Platelets (Bld) [#/Vol] 77 10*3/uL Low 150-[address] [facility] Comment on above: Order Comment: Speci men Type: BLOOD SPECIMEN Ordering Facility: [facility] Address: [address] [place] [address] Result Comment: No c lot detected. Performed By: #### H STNT #### [facility] CLIA [id number] [address] [place] [address] [place] RBC (Bld) [#/Vol] 2.86 10*6/uL Low 3.90-5.20 [facility] Comment on above: Order Comment: Speci men Type: BLOOD SPECIMEN Ordering Facility: [facility] Address: [address] [place] [address] Performed By: #### H STNT #### [facility] CLIA [id number] [address] [place] [address] [place] WBC (Bld) [#/Vol] 3.70 10*3/uL Normal 3.70-11.00 [facility] Comment on above: Order Comment: Speci men Type: BLOOD SPECIMEN Ordering Facility: [facility] Address: [address] [place] [address] Performed By: #### H STNT #### [facility] CLIA [id number] [address] [place] [address] [place] CTA CHEST (NON GATED) W IVCO N PEon 05-01-2024 CTA CHEST (NON GATED) W IVCON PE * * *Final Report* * * DATE OF EXAM: May 01 2024 11:49PM [facility] 0564 - CTA CHEST (NON GATED) W IVCON PE / PROCEDURE REASON: Pulmonary embolism (PE) suspected, high prob * * * * Physician Interpretation * * * * EXAMINATION: CHEST CTA (NON GATED) WITH CONTRAST (PULMONARY EMBOLISM PROTOCOL) Clinical History: Shortness of breath Technique: Spiral CT acquisition of the chest from the thoracic inlet to the upper abdomen following IV contrast. Axial 1 and 3 mm thick slices plus coronal and sagittal reformatted images. MQ: CTCP_5 Contrast: 100 mL Omnipaque [address] Radiation dose: Integrated Dose-length product (DLP) for this visit = 744.18 mGy*cm CT Dose Reduction Employed: Automated exposure control(AEC) and iterative recon CTA: Post-processed images (Maximum intensity Projection (MIP), Volume-rendered (VR), or Surface shaded display images (SSD) were created, reviewed and archived. Comparison: 04/10/2024 RESULT: Limitations: Non-diagnostic study. Motion with or without poor bolus tracking prevents accurate evaluation of the pulmonary arteries. Evaluation for thromboembolic disease: Nondiagnostic due to extensive artifact. Lines, tubes, and devices: LEFT IJ Mediport terminates in the SVC. Lung parenchyma and airways: Atelectasis versus consolidation in the RIGHT lower lobe. Slight increase in size of a 1 cm LEFT upper lobe pulmonary nodule. Nodular subpleural density in the anterior RIGHT upper lobe is similar to the previous study. Pleural space: Small bilateral pleural effusions. Lower neck, lymph nodes, and mediastinum: The imaged thyroid gland is normal. No lymphadenopathy in the supraclavicular, axillary, mediastinal, or hilar regions. Heart, pericardium, and thoracic vessels: Atherosclerotic calcifications. Bones and soft tissues: Unchanged T11 compression deformity.. Upper abdomen: Nodular liver contour. Evaluation is limited due to severe artifact. Localizer images: No additional findings. IMPRESSION: 1. Nondiagnostic evaluation for pulmonary emboli due to severe artifact. Severe artifact also limits evaluation of the upper abdomen and chest compared to previous studies. 2. Atelectasis consolidation in the RIGHT lower lobe. Small bilateral pleural effusions 3. Enlarged LEFT upper lobe pulmonary nodule compared to the previous exam. 4. Previously noted lesion at the posterior RIGHT costophrenic angle cannot be adequately evaluated on this exam due to artifact. Printer Floor Covering Assistant: KRISTOFER Transcribe Date/Time: May 02 2024 12:53A Dictated by : ELADIO QUINTANILLA MD This examination was interpreted and the report reviewed and electronically signed by: ELADIO QUINTANILLA MD on May 02 2024 1:06AM EST [id number] Normal [facility] Comprehensive metabolic 2000 panelon 05-01-2024 Albumin [Mass/Vol] 3.4 g/dL Low 3.9-4.9 [facility] Comment on above: Order Comment: Guera doll Type: BLOOD SPECIMEN Ordering Facility: [facility] Address: [address] [place] [address] Performed By: #### S LACTR #### [facility] CLIA [id number] [address] [place] [address] [place] ALP [Catalytic activity/Vol] 141 U/L High 34-123 [facility] Comment on above: Order Comment: Guera doll Type: BLOOD SPECIMEN Ordering Facility: [facility] Address: [address] [place] [address] Performed By: #### S LACTR #### [facility] CLIA [id number] [address] [place] [address] [place] ALT With P-5'-P [Catalytic activity/Vol] 62 U/L High 7-38 [facility] Comment on above: Order Comment: Guera doll Type: BLOOD SPECIMEN Ordering Facility: [facility] Address: [address] [place] [address] Performed By: #### S LACTR #### [facility] CLIA [id number] [address] [place] [address] [place] Anion gap [Moles/Vol] 9 mmol/L Normal 8-15 [facility] Comment on above: Order Comment: Speci men Type: BLOOD SPECIMEN Ordering Facility: [facility] Address: [address] [place] [address] Performed By: #### S LACTR #### [facility] CLIA [id number] [address] [place] [address] [place] AST With P-5'-P [Catalytic activity/Vol] Normal [facility] Comment on above: Order Comment: Speci men Type: BLOOD SPECIMEN Ordering Facility: [facility] Address: [address] [place] [address] Result Comment: Unab le to assay due to interference from hemolysis. Suggest reorder as clinically indicated. Performed By: #### S LACTR #### [facility] CLIA [id number] [address] [place] [address] [place] Bilirubin [Mass/Vol] 0.3 mg/dL Normal 0.2-1.3 [facility] Comment on above: Order Comment: Speci men Type: BLOOD SPECIMEN Ordering Facility: [facility] Address: [address] [place] [address] Performed By: #### S LACTR #### [facility] CLIA [id number] [address] [place] [address] [place] Calcium [Mass/Vol] 9.5 mg/dL Normal 8.5-10.2 [facility] Comment on above: Order Comment: Speci men Type: BLOOD SPECIMEN Ordering Facility: [facility] Address: [address] [place] [address] Performed By: #### S LACTR #### [facility] CLIA [id number] [address] [place] [address] [place] Chloride [Moles/Vol] 93 mmol/L Low 98-107 [facility] Comment on above: Order Comment: Speci men Type: BLOOD SPECIMEN Ordering Facility: [facility] Address: [address] [place] [address] Performed By: #### S LACTR #### [facility] CLIA [id number] [address] [place] [address] [place] CO2 [Moles/Vol] 26 mmol/L Normal 22-30 [facility] Comment on above: Order Comment: Guera doll Type: BLOOD SPECIMEN Ordering Facility: [facility] Address: [address] [place] [address] Performed By: #### S LACTR #### [facility] CLIA [id number] [address] [facility] Creatinine [Mass/Vol] 1.22 mg/dL High 0.58-0.96 [facility] Comment on above: Order Comment: Seani men Type: BLOOD SPECIMEN Ordering Facility: [facility] Address: [address] [place] [address] Performed By: #### S LACTR #### [facility] CLIA [id number] [address] Creatinine and Glomerular filtration rate.predicted panel (S/P/Bld) 46 mL/min/1.73m??? Low >=60 [facility] Comment on above: Order Comment: Speci men Type: BLOOD SPECIMEN Ordering Facility: [facility] Address: [address] [place] [address] Result Comment: Judith mated Glomerular Filtration Rate (eGFR) is calculated using the 2020 CKD-EPI creatinine equation. This equation utilizes serum creatinine, sex, and age as parameters. The creatinine assay has traceable calibration to isotope dilution-mass spectrometry. Refer to KDIGO guidelines for clinical interpretation. In patients with unstable renal function, e.g. those with acute kidney injury, the eGFR may not accurately reflect actual GFR. Performed By: #### S LACTR #### [facility] CLIA [id number] [address] [place] [id number] [place] Glucose [Mass/Vol] 202 mg/dL High 74-99 [facility] Comment on above: Order Comment: Speci men Type: BLOOD SPECIMEN Ordering Facility: [facility] Address: [address] [place] [address] Result Comment: The [place] Diabetes Association (ADA) provides guidance for cutoff values for fasting glucose and random glucose. The ADA defines fasting as no caloric intake for at least 8 hours. Fasting plasma glucose results between 100 to 125 mg/dL indicate increased risk for diabetes (prediabetes). Fasting plasma glucose results greater than or equal to 126 mg/dL meet the criteria for diagnosis of diabetes. In the absence of unequivocal hyperglycemia, results should be confirmed by repeat testing. In a patient with classic symptoms of hyperglycemia or hyperglycemic crisis, random plasma glucose results greater than or equal to 200 mg/dL meet the criteria for diagnosis of diabetes. Reference: Standards of Medical Care in Diabetes 2016, [place] [employer]. Diabetes Care. 2016.39(Suppl 1). Performed By: #### S LACTR #### [facility] CLIA [id number] [address] [place] [address] [place] Potassium [Moles/Vol] 5.7 mmol/L High 3.7-5.1 [facility] Comment on above: Order Comment: Guera doll Type: BLOOD SPECIMEN Ordering Facility: [facility] Address: [address] [place] [address] Performed By: #### S LACTR #### [facility] CLIA [id number] [address] [place] [address] [place] Protein [Mass/Vol] 7.0 g/dL Normal 6.3-8.0 [facility] Comment on above: Order Comment: Guera doll Type: BLOOD SPECIMEN Ordering Facility: [facility] Address: [address] [place] [address] Performed By: #### S LACTR #### [facility] CLIA [id number] [address] [place] [address] [place] Sodium [Moles/Vol] 128 mmol/L Low 136-144 [facility] Comment on above: Order Comment: Guera men Type: BLOOD SPECIMEN Ordering Facility: [facility] Address: [address] [place] [address] Performed By: #### S LACTR #### [facility] CLIA [id number] [address] [place] [address] [place] Urea nitrogen [Mass/Vol] 30 mg/dL High 7-21 [facility] Comment on above: Order Comment: Speci men Type: BLOOD SPECIMEN Ordering Facility: [facility] Address: [facility] [place] [address] Performed By: #### S LACTR #### [facility] CLIA [id number] [address] [place] [address] [facility] ECG COMPLETEon 05-01-2024 ECG COMPLETE Ventricular Rate : 7 4 BPM Atrial Rate : 74 BPM P-R Interval : 180 ms QRS Duration : 106 ms Q-T Interval : 368 ms QTC Calculation(Bazett) : 408 ms Calculated P [place] : 37 degrees Calculated R [place] : -1 degrees Calculated T [place] : 31 degrees NORMAL SINUS RHYTHM LOW VOLTAGE QRS BORDERLINE ECG NO PREVIOUS ECGS AVAILABLE Confirmed by MD THOMAS VINAYAK ([id number]) on 05/04/2024 10:23:27 PM NAME : PRICILA HOOKER PID : [id number] : 1945 Gender : Female Race : ORD : [id number] Procedure Date : May 01 2024 21:30:30 Edit Date : May 04 2024 22:23:30 Diagnosis: NORMAL SINUS RHYTHM LOW VOLTAGE QRS BORDERLINE ECG NO PREVIOUS ECGS AVAILABLE Confirmed by MD THOMAS VINAYAK ([id number]) on 05/04/2024 10:23:27 PM Test Reason : Chest Pain Location : 191 : [facility] ED Overread By : MD THOMAS VINAYAK Edited By : MD THOMAS VINAYAK Referred By : , Acquired by : MILDRED OVALLE [facility] ED NOTEon 05-01-2024 ED NOTE HNO ID: [id number] Author: BECKA GALVEZ RN Service: Emergency Medicine Author Type: Registered Nurse Type: ED Notes Filed: 05/01/2024 23:00 Note Text: ED physician at bedside. [facility] ED NOTE HNO ID: [id number] Author: BECKA GALVEZ RN Service: Emergency Medicine Author Type: Registered Nurse Type: ED Notes Filed: 05/01/2024 22:08 Note Text: Patient informed about the name of the medication(s), what the medication(s) is(are) for, and what to expect with/from med administration. Patient given opportunity to ask questions. Medication(s) include: Vancomycin, Cefepime [facility] [facility] ED NOTE HNO ID: [id number] Author: BECKA GALVEZ RN Service: Emergency Medicine Author Type: Registered Nurse Type: ED Notes Filed: 05/01/2024 22:32 Note Text: Patient's sister at bedside. ED physician made aware. [facility] ED NOTE HNO ID: [id number] Author: BECKA GALVEZ RN Service: Emergency Medicine Author Type: Registered Nurse Type: ED Notes Filed: 05/01/2024 21:13 Note Text: RT at bedside for ABG at this time. [facility] ED NOTE HNO ID: [id number] Author: BECKA GALVEZ RN Service: Emergency Medicine Author Type: Registered Nurse Type: ED Notes Filed: 05/01/2024 21:12 Note Text: RT placed BiPaP on patient at this time. [facility] ED PROV NOTEon 05-01-2024 ED PROV NOTE HNO ID: [id number] Author: LESTER ALFORD MD Service: Emergency Medicine Author Type: Physician Type: ED Provider Notes Filed: 05/02/2024 04:45 Note Text: ED Provider Note Patient Name: Pricila Hooker : 1945 SERVICE DATE: 05/01/24 History Patient presents with: Shortness of Breath This patient is a 78-year-old female with past medical history significant for lung cancer, congestive heart failure, endometrial cancer, diabetes, hypercholesterolemia, and hypertension who presents the emergency department for evaluation for shortness of breath. Patient states has been having progressively worsening shortness of breath over the last couple of days worsening tonight. She states she is having wheezing. She denies chest pain. She denies nausea, vomiting, or diarrhea. Patient also denies any fevers or chills. Patient reports was recently in the hospital at [place] for a week and was discharged a few days ago. According to EMS patient increasingly short of breath at home. Unclear EMS gave bronchodilators. Collateral information from patient's sister indicate patient recently started on chemotherapy with a new agent a week ago. She states that a couple of days later patient spiked fevers at home. She states they went to the emergency department and patient was admitted to [facility]. She states patient was diagnosed with a UTI. She states patient was however doing well yesterday following which she was discharged home with outpatient follow-up. She notes that today the patient appeared more confused than previous and was hypoxic with oxygen saturation as low as low 80s on 3 L of oxygen which is her home oxygen hence bringing her to the department. 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 CHF (congestive heart failure) (HCC) Immunotherapy induced Diabetes mellitus without mention of complication Endometrial cancer (HCC) GERD (gastroesophageal reflux disease) Hemorrhoids Hypercholesteremia Hypertension Neuropathy Obesity Osteoarthritis of multiple joints PAST SURGICAL HISTORY Procedure Laterality Date ABDOMINAL SURGERY HX ARTHRP KNE CONDYLEANDPLATU MEDIALANDLAT COMPARTMENTS 05/11/2011 Knee replacement, total right ARTHRP KNE CONDYLEANDPLATU MEDIALANDLAT COMPARTMENTS 01/2011 left CATARACT EXTRACTION HX Left COLONOSCOPY FLX DX W/COLLJ SPEC WHEN PFRMD 12/28/2007 Colonoscopy COLONOSCOPY FLX DX W/COLLJ SPEC WHEN PFRMD 06/17/2012 Colonoscopy COLONOSCOPY FLX DX W/COLLJ SPEC WHEN PFRMD 11/05/2017 Colonoscopy EGD W/O [facility] SPEC VARICIES INJ 11/25/2022 EYE SURGERY HX JOINT REPLACEMENT HX LAPS SURG CHOLECYSTECTOMY W/CHOLANGIOGRAPHY 01/04/2007 LAPS TOTAL HYSTERECT 250 GM/< W/RMVL TUBE/OVARY 07/24/2022 Exam under anesthesia, total laparoscopic hysterectomy, bilateral salpingo-oophorectomy, sentinel lymph node mapping with excision of bilateral pelvic sentinel lymph nodes, and extensive lysis of adhesions. PAST SURGICAL HISTORY OF N/A 05/11/2023 hx of heart cath FAMILY HISTORY Problem Relation Age of Onset Heart Mother irregular heart rate Colon Cancer Mother Stroke Mother Heart Father from heart attack Colon Cancer Maternal Grandfather Social History Tobacco Use Smoking status: Former Current packs/day: 0.00 Average packs/day: 0.5 packs/day for 20.0 years (10.0 ttl pk-yrs) Types: Cigarettes Start date: 11/05/1957 Quit date: 11/05/1977 Years since quittin.5 Smokeless tobacco: Never Vaping Use Vaping status: Never Used Substance and Sexual Activity Alcohol use: No Drug use: No Sexual activity: Not Currently ALLERGIES No Known Allergies Review of Systems Constitutional: Positive for fatigue. Negative for chills and fever. HENT: Negative for ear discharge, ear pain, mouth sores, rhinorrhea, sinus pressure, sneezing, sore throat and tinnitus. Eyes: Negative for photophobia, discharge, itching and visual disturbance. Respiratory: Positive for cough and shortness of breath. Negative for wheezing and stridor. Cardiovascular: Negative for chest pain, palpitations and leg swelling. Gastrointestinal: Negative for abdominal distention, blood in stool, constipation, diarrhea and nausea. Endocrine: Negative for cold intolerance and heat intolerance. Genitourinary: Negative for dysuria, flank pain, frequency and hematuria. Musculoskeletal: Negative for back pain, gait problem and joint swelling. Skin: Negative for color change, pallor and rash. Neurological: Negative for dizziness, syncope, weakness, light-headedness and headaches. Psychiatric/Behavioral: Negative for confusion, hallucinations, sleep disturbance and suicidal ideas. Physical Exam Vital (more content not included)... Normal [facility] HIGH SENSITIVITY TROPONIN To n 05-01-2024 Troponin T.cardiac High sensitivity method [Mass/Vol] 22 ng/L High <12 [facility] Comment on above: Order Comment: Speci men Type: BLOOD SPECIMEN Ordering Facility: [facility] Address: [address] [place] [address] Performed By: #### H STNT #### [facility] CLIA [id number] [address] [place] [address] [place] Troponin T.cardiac High sensitivity method [Mass/Vol] 21 ng/L High <12 [facility] Comment on above: Order Comment: Speci men Type: BLOOD SPECIMEN Ordering Facility: [facility] Address: [address] [place] [address] Performed By: #### H STNT #### [facility] CLIA [id number] [address] [place], [place] [id number] [place] Magnesium SerPl-mCncon 05-01 Magnesium [Mass/Vol] 1.7 mg/dL Normal 1.7-2.3 [facility] Comment on above: Order Comment: Guera doll Type: BLOOD SPECIMEN Ordering Facility: [facility] Address: [address] [place] [address] Performed By: #### S LACTR #### [facility] CLIA [id number] [address] [place] [address] NT-proBNP SerPl-mCncon 05-01 Natriuretic peptide.B prohormone N-Terminal [Mass/Vol] 1638 pg/mL High <450 [facility] Comment on above: Order Comment: Guera doll Type: BLOOD SPECIMEN Ordering Facility: [facility] Address: [address] [place] [address] Performed By: #### S LACTR #### [facility] CLIA [id number] [address] [place] [address] [place] [facility]-01-2024 Procalcitonin [Mass/Vol] 1.27 ng/mL High <0.09 [facility] Comment on above: Order Comment: Guera doll Type: BLOOD SPECIMEN Ordering Facility: [facility] Address: [address] [place] [address] Result Comment: For a guided interpretation of test results, please visit the Change in Procalcitonin Calculator, [email or web address]. Performed By: #### S LACTR #### [facility] CLIA [id number] [address] [place] [address] SEPSIS LACTATE W/ REFLEX (IN ITIAL)on 05-01-2024 Lactate [Moles/Vol] 1.2 mmol/L Normal <=2.0 [facility] Comment on above: Order Comment: Guera doll Type: BLOOD SPECIMEN Ordering Facility: [facility] Address: [address] [place] [address] Performed By: #### S LACTR #### [facility] CLIA [id number] [address] [place] [id number] [place] XR CHEST 1V FRONTALon 2024 XR CHEST 1V FRONTAL * * *Final Report* * * DATE OF EXAM: May 01 2024 9:36PM LDX 5290 - XR CHEST 1V FRONTAL / PROCEDURE REASON: Shortness of breath * * * * Physician Interpretation * * * * EXAMINATION: CHEST RADIOGRAPH (SINGLE VIEW AP OR PA) CLINICAL HISTORY: Shortness of breath MQ: XC1_5 Comparison: 04/10/2024 RESULT: Lines, tubes, and devices: LEFT IJ Mediport terminates in the RIGHT atrium Lungs and pleura: Bibasilar haziness which may be related to underexpansion of the lungs. Questionable trace bilateral pleural effusions. Cardiomediastinal silhouette: Enlarged Other: No acute bony abnormality seen. IMPRESSION: Underexpanded lungs with questionable trace effusions. Printer Floor Covering Assistant: KRISTOFER Transcribe Date/Time: May 01 2024 10:26P Dictated by : ELADIO QUINTANILLA MD This examination was interpreted and the report reviewed and electronically signed by: ELADIO QUINTANILLA MD on May 01 2024 10:31PM EST [id number] Normal [facility] Basic Metabolic Profile (BMP )on 04-30-2024 Anion gap [Moles/Vol] 10 mmol/L Normal 5-15 [facility] Comment on above: Performed By: #### L 400.0001 #### [facility] [address] [place], [address] BUN/CRE 17.1 RATIO Normal 10-20 [facility] Comment on above: Performed By: #### L 400.0001 #### [facility] [address] [place], [address] Calcium [Mass/Vol] 9.2 mg/dL Normal 7.6-11.0 [facility] Comment on above: Performed By: #### L 400.0001 #### [facility] [address] [place], [address] Chloride [Moles/Vol] 98 mmol/L Normal 96-108 [facility] Comment on above: Performed By: #### L 400.0001 #### [facility] [address] [place], [address] CO2 [Moles/Vol] 22.9 mmol/L Normal 22.0-29.0 [facility] Comment on above: Performed By: #### L 400.0001 #### [facility] [address] [place], [address] Creatinine [Mass/Vol] 1.40 mg/dL High 0.70-1.20 [facility] Comment on above: Performed By: #### L 400.0001 #### [facility] [address] [place], [address] ECRCL 47.59 ml/min Low 50-250 [facility] Comment on above: Performed By: #### L 400.0001 #### [facility] [address] [place], [address] GFR/1.73 sq M.predicted among non-blacks MDRD (S/P/Bld) [Vol rate/Area] 39 mL/min/{1.73_m2} Low >60 [facility] Comment on above: Result Comment: mL/m in/1.73m2 CKD-EPI Creatinine Equation (2020) Performed By: #### L 400.0001 #### [facility] [address] [place], [address] Glucose [Mass/Vol] 158 mg/dL High 70-99 [facility] Comment on above: Performed By: #### L 400.0001 #### [facility] [address] [place], [address] Potassium [Moles/Vol] 4.6 mmol/L Normal 3.3-5.1 [facility] Comment on above: Performed By: #### L 400.0001 #### [facility] [address] [place], [address] Sodium [Moles/Vol] 131 mmol/L Low 133-145 [facility] Comment on above: Performed By: #### L 400.0001 #### [facility] [address] [place], [address] Urea nitrogen [Mass/Vol] 24 mg/dL High 4-19 [facility] Comment on above: Performed By: #### L 400.0001 #### [facility] [address] [place], [address] Bedside Glucoseon 04-30-2024 FINGERSTICK GLU 185 mg/dL High 74-106 [facility] Comment on above: Result Comment: LIN GEMENT OF PATIENT CARE PER NURSING PROTOCOL Performed By: #### L 400.0001 #### [facility] [address] [place], [address] FINGERSTICK GLU 156 mg/dL High 74-106 [facility] Comment on above: Result Comment: LIN GEMENT OF PATIENT CARE PER NURSING PROTOCOL Performed By: #### L 400.0001 #### [facility] [address] [place], [address] CBC W/Diff, Automatedon 0 SMEAR COMMENT SCANNED Normal [facility] Comment on above: Result Comment: LYMP HOPENIA PRESENT LEFT SHIFT BANDS PRESENT 1+ Performed By: #### L 400.0001 #### [facility] [address] [place], [address] Discharge Instructionon 030 Discharge Instruction [facility] Medical Records Department [address] [place] [address] Instructions for Home/Discharge Instructions 04/30/24 1312 MR#: [id number] Acct: [id number] Name: PRICILA HOOKER Rep #: [id number] : 1945 78 From: Eddie Vera MD PCP: Dr. Vinh Van MD Status:ADM IN Discharge Instructions Diet Discharge Diet: No restrictions DC O2, CPAP, BIPAP needs Home O2 Discharge instructions: No Dressing / Incision Discharge Activity: Return to Normal Activity Dressing / Incision Call your doctor if you observe: Fever of 101 or Higher, Shortness of breath, Dizziness, Fainting spells, Swelling in the ankles, Chest pain and Increased palpitations (irregular heartbeat) Follow Up Care Test Results: Test results from this visit will be discussed in further detail at your follow-up appointment, if applicable. Discharge Plan Admission Admit Date/Time: 04/28/24 16:24 Attending Provider: Eddie Vera Primary Care Provider: Vinh Van Consulting Providers: Bing Villegas Instructions Additional Instructions / Restrictions: Follow-up with your primary care doctor and your oncologist to evaluate your hemoglobin and follow- up for any possible outpatient transfusions Discharge Orders/Prescriptions Prescriptions: New cefdinir 300 mg capsule 300 mg PO BID Qty: 10 0RF Continued amitriptyline 50 mg tablet 50 mg PO QHS gabapentin 100 mg capsule 100 mg PO TID Patient Comments: PT STATES ONLY TAKES ONE CAPSULE TWICE A DAY ( OF 04/27/24) Trulicity 3 mg/0.5 mL pen injector 3 mg subcut TU atorvastatin 40 mg tablet 40 mg PO QHS Slow-Mag 71.5 mg tablet,delayed release (DR/EC) 71.5 mg PO BID ondansetron HCl 8 mg tablet 8 mg PO Q12H PRN (Reason: NAUSEA ) silver sulfadiazine 1 % cream 1 applic topical DAILY PRN (Reason: BURN) Rx Instructions: APPLY ONE APPLICATION ONCE DAILY NEEDED TO HAND glimepiride 4 mg tablet 4 mg PO BID acetaminophen [Acetaminophen Extra Strength] 500 mg tablet 500 mg PO Q6H PRN (Reason: PAIN ) aspirin [Adult Low Dose Aspirin] 81 mg tablet,delayed release (DR/EC) 81 mg PO DAILY carvedilol 3.125 mg tablet 6.25 mg PO BID fluticasone furoate-vilanterol 100-25 mcg/dose blister with device 1 inh INHALATION Q24H Patient Comments: [NO ORIGINAL SIG] duloxetine 60 mg capsule,delayed release(DR/EC) 60 mg PO DAILY metformin 500 MG tablet 1,000 mg PO BID Referrals / Follow Up: Vinh Van MD [Primary Care Provider] - Within 1 Week Nora Branham DO [Med Staff - Active Staff] - Within 1 Week Disposition Disposition (needs filled in before D/C Order can be placed): Home, Self Care 04/30/24 1316 Eddie Vera MD CC: Dr. Bing Villegas DO; Dr. Vinh Van MD Signed Normal [facility] Basic Metabolic Profile (BMP )on 04-29-2024 Anion gap [Moles/Vol] 15 mmol/L Normal 5-15 [facility] Comment on above: Performed By: #### L 501.080 #### [facility] [address] [place], [address] BUN/CRE 16.5 RATIO Normal 10-20 [facility] Comment on above: Performed By: #### L 501.080 #### [facility] [address] [place], [address] Calcium [Mass/Vol] 8.9 mg/dL Normal 7.6-11.0 [facility] Comment on above: Performed By: #### L 501.080 #### [facility] [address] [place], [address] Chloride [Moles/Vol] 101 mmol/L Normal 96-108 [facility] Comment on above: Performed By: #### L 501.080 #### [facility] [address] [place], [address] CO2 [Moles/Vol] 17.5 mmol/L Low 22.0-29.0 [facility] Comment on above: Performed By: #### L 501.080 #### [facility] [address] [place], [address] Creatinine [Mass/Vol] 1.14 mg/dL Normal 0.70-1.20 [facility] Comment on above: Performed By: #### L 501.080 #### [facility] [address] [place], [address] ECRCL 58.44 ml/min Normal [facility] Comment on above: Performed By: #### L 501.080 #### [facility] [address] [place], [address] GFR/1.73 sq M.predicted among non-blacks MDRD (S/P/Bld) [Vol rate/Area] 49 mL/min/{1.73_m2} Low >60 [facility] Comment on above: Result Comment: mL/m in/1.73m2 CKD-EPI Creatinine Equation (2020) Performed By: #### L 501.080 #### [facility] [address] [place], [address] Glucose [Mass/Vol] 129 mg/dL High 70-99 [facility] Comment on above: Performed By: #### L 501.080 #### [facility] [address] [place], [address] Potassium [Moles/Vol] 4.6 mmol/L Normal 3.3-5.1 [facility] Comment on above: Result Comment: Hemo lysis present, Results??could be affected. ?? Performed By: #### L 501.080 #### [facility] [address] [place], [address] Sodium [Moles/Vol] 134 mmol/L Normal 133-145 [facility] Comment on above: Performed By: #### L 501.080 #### [facility] [address] [place], [address] Urea nitrogen [Mass/Vol] 19 mg/dL Normal 4-19 [facility] Comment on above: Performed By: #### L 501.080 #### [facility] [address] [place], [address] Bedside Glucoseon 04-29-2024 FINGERSTICK GLU 207 mg/dL High 74-106 [facility] Comment on above: Result Comment: LIN GEMENT OF PATIENT CARE PER NURSING PROTOCOL Performed By: #### L 501.080 #### [facility] [address] [place], [address] FINGERSTICK GLU 233 mg/dL High 74-106 [facility] Comment on above: Result Comment: LIN GEMENT OF PATIENT CARE PER NURSING PROTOCOL Performed By: #### L 500.4050, L501.2300, L100.0100 #### [facility] [address] [place], [address] FINGERSTICK GLU 201 mg/dL High 74-106 [facility] Comment on above: Result Comment: LIN GEMENT OF PATIENT CARE PER NURSING PROTOCOL Performed By: #### L 500.4050, L501.2300, L100.0100 #### [facility] [address] [place], [address] FINGERSTICK GLU 125 mg/dL High 74-106 [facility] Comment on above: Result Comment: LIN GEMENT OF PATIENT CARE PER NURSING PROTOCOL Performed By: #### L 500.4050, L501.2300, L100.0100 #### [facility] [address] [place], [address] CBC W/Diff, Automatedon 03-0 Anisocytosis Ql (Bld) 2+ Normal [facility] Comment on above: Performed By: #### L 400.0001 #### [facility] [address] [place], [address] SMEAR COMMENT SCANNED Normal [facility] Comment on above: Performed By: #### L 400.0001 #### [facility] [address] [place], [address] Magnesiumon 04-29-2024 Magnesium [Mass/Vol] 1.9 mg/dL Normal 1.5-2.2 [facility] Comment on above: Performed By: #### L 400.0001 #### [facility] [address] [place], [address] Phosphoruson 04-29-2024 Phosphate [Mass/Vol] 2.8 mg/dL Normal 2.7-4.5 [facility] Comment on above: Performed By: #### L 500.4050, L501.2300, L100.0100 #### [facility] [address] [place], [address] Urine Cultureon 04-29-2024 [facility]RC Klebsiella oxytoca [place] Count >100,000 Klebsiella oxytoca: REACTION Ampicillin Islt LORIE >=32 Ampicillin+Sulbac Islt LORIE 8 S Cefepime Islt LORIE <=0.12 S cefTRIAXone Islt LORIE <=0.25 S Ciprofloxacin Islt LORIE <=0.06 S B-Lactamase Extended Susc Islt NEG Gentamicin Islt LORIE <=1 S levoFLOXacin Islt LORIE <=0.12 S Meropenem Islt LORIE <=0.25 S Nitrofurantoin Islt LORIE <=16 S Pip+Tazo Islt LORIE <=4 S TMP SMX Islt LORIE <=20 S Normal [facility] Comment on above: Performed By: #### L 501.080 #### [facility] [address] [place], [address] BRCon 04-28-2024 RC Normal Neg [facility] Comment on above: Result Comment: [id number] AN RC TRANSFUSED 04/28/24 1837 [id number] AN RC TRANSFUSED 04/28/24 2357 Performed By: #### L 501.080 #### [facility] [address] [place], [address] Bedside Glucoseon 04-28-2024 FINGERSTICK GLU 177 mg/dL High 74-106 [facility] Comment on above: Result Comment: LIN HUNTER OF PATIENT CARE PER NURSING PROTOCOL Performed By: #### L 500.4050, L501.2300, L100.0100 #### [facility] [address] [place], [address] FINGERSTICK GLU 138 mg/dL High 74-106 [facility] Comment on above: Result Comment: LIN GEMENT OF PATIENT CARE PER NURSING PROTOCOL Performed By: #### L 500.4050, L501.2300, L100.0100 #### [facility] [address] [place], [address] FINGERSTICK GLU 149 mg/dL High 74-106 [facility] Comment on above: Result Comment: LIN GEMENT OF PATIENT CARE PER NURSING PROTOCOL Performed By: #### L 501.080 #### [facility] [address] [place], [address] FINGERSTICK GLU 139 mg/dL High 74-106 [facility] Comment on above: Result Comment: LIN GEMENT OF PATIENT CARE PER NURSING PROTOCOL Performed By: #### L 501.080 #### [facility] [address] [place], [address] CBC W/Diff, Automatedon 02-2 Absolute Lymph 0.31 X10 3/uL Low 0.83-4.51 [facility] Comment on above: Performed By: #### L 500.4050, L501.2300, L100.0100 #### [facility] [address] [place], [address] Absolute Neut 5.0 X10 3/uL Normal 2.0-7.7 [facility] Comment on above: Performed By: #### L 500.4050, L501.2300, L100.0100 #### [facility] [address] [place], [address] Basophils/100 WBC (Bld) 0.0 % Normal 0-1 [facility] Comment on above: Performed By: #### L 500.4050, L501.2300, L100.0100 #### [facility] [address] [place], [address] Eosinophils/100 WBC (Bld) 0.2 % Normal 0-5 [facility] Comment on above: Performed By: #### L 500.4050, L501.2300, L100.0100 #### [facility] [address] [place], [address] Erythrocyte distribution width (RBC) [Ratio] 14.6 % Normal 11.6-14.6 [facility] Comment on above: Performed By: #### L 500.4050, L501.2300, L100.0100 #### [facility] [address] [place], [address] Hematocrit (Bld) [Volume fraction] 22.0 % Low 37-47 [facility] Comment on above: Performed By: #### L 500.4050, L501.2300, L100.0100 #### [facility] [address] [place], [address] Hemoglobin (Bld) [Mass/Vol] 7.0 g/dL Low 12.0-15.0 [facility] Comment on above: Performed By: #### L 500.4050, L501.2300, L100.0100 #### [facility] [address] [place], [address] IG% 0.700 Normal 0.0-0.9 [facility] Comment on above: Result Comment: IG% - Immature Granulocytes (promyelocytes, myelocytes and metamyelocytes) > 1% indicates that a LEFT SHIFT is Present. Performed By: #### L 500.4050, L501.2300, L100.0100 #### [facility] [address] [place], [address] Lymphocytes/100 WBC (Bld) 5.7 % Low 19-41 [facility] Comment on above: Performed By: #### L 500.4050, L501.2300, L100.0100 #### [facility] [address] [place], [address] MCH (RBC) [Entitic mass] 32.3 pg High 27.0-32.0 [facility] Comment on above: Performed By: #### L 500.4050, L501.2300, L100.0100 #### [facility] [address] [place], [address] MCHC (RBC) [Mass/Vol] 31.8 g/dL Low 32-36 [facility] Comment on above: Performed By: #### L 500.4050, L501.2300, L100.0100 #### [facility] [address] [place], [address] MCV (RBC) [Entitic vol] 101.4 fL High 81-99 [facility] Comment on above: Performed By: #### L 500.4050, L501.2300, L100.0100 #### [facility] [address] [place], [address] Monocytes/100 WBC (Bld) 1.5 % Normal 0-10 [facility] Comment on above: Performed By: #### L 500.4050, L501.2300, L100.0100 #### [facility] [address] [place], [address] Neutrophils/100 WBC (Bld) 91.9 % High 47-70 [facility] Comment on above: Performed By: #### L 500.4050, L501.2300, L100.0100 #### [facility] [address] [place], [address] Nucleated RBC (Bld) [#/Vol] 0 10*3/uL Normal 0-5 [facility] Comment on above: Performed By: #### L 500.4050, L501.2300, L100.0100 #### [facility] [address] [place], [address] Platelet mean volume (Bld) [Entitic vol] 10.3 fL Normal 6.2-12.0 [facility] Comment on above: Performed By: #### L 500.4050, L501.2300, L100.0100 #### [facility] [address] [place], [address] Platelets (Bld) [#/Vol] 104 10*3/uL Low 150-450 [facility] Comment on above: Performed By: #### L 500.4050, L501.2300, L100.0100 #### [facility] [address] [place], [address] RBC (Bld) [#/Vol] 2.17 10*6/uL Low 4.2-5.4 [facility] Comment on above: Performed By: #### L 500.4050, L501.2300, L100.0100 #### [facility] [address] [place], [address] RDW SD 53.5 fl High 35.1-43.9 [facility] Comment on above: Performed By: #### L 500.4050, L501.2300, L100.0100 #### [facility] [address] [place], [address] WBC (Bld) [#/Vol] 5.4 10*3/uL Normal 4.4-11.0 [facility] Comment on above: Performed By: #### L 500.4050, L501.2300, L100.0100 #### [facility] [address] [place], [address] Comprehensive Metabolic Prof ilon 04-28-2024 Albumin [Mass/Vol] 3.2 g/dL Low 3.4-4.8 [facility] Comment on above: Performed By: #### L 500.4050, L501.2300, L100.0100 #### [facility] [address] [place], [address] Albumin/Globulin [Mass ratio] 1.2 {ratio} Normal 0.9-2.4 [facility] Comment on above: Performed By: #### L 500.4050, L501.2300, L100.0100 #### [facility] [address] [place], [address] ALK PHOS 57 U/L Normal 35-104 [facility] Comment on above: Performed By: #### L 500.4050, L501.2300, L100.0100 #### [facility] [address] [place], [address] ALT [Catalytic activity/Vol] 26 U/L Normal <=34 [facility] Comment on above: Performed By: #### L 500.4050, L501.2300, L100.0100 #### [facility] [address] [place], [address] Anion gap [Moles/Vol] 9 mmol/L Normal 5-15 [facility] Comment on above: Performed By: #### L 500.4050, L501.2300, L100.0100 #### [facility] [address] [place], [address] AST [Catalytic activity/Vol] 30 U/L Normal <=31 [facility] Comment on above: Performed By: #### L 500.4050, L501.2300, L100.0100 #### [facility] [address] [place], [address] Bilirubin [Mass/Vol] 0.27 mg/dL Normal 0.00-1.30 [facility] Comment on above: Performed By: #### L 500.4050, L501.2300, L100.0100 #### [facility] [address] [place], [address] BUN/CRE 19.3 RATIO Normal 10-20 [facility] Comment on above: Performed By: #### L 500.4050, L501.2300, L100.0100 #### [facility] [address] [place], [address] Calcium [Mass/Vol] 8.4 mg/dL Normal 7.6-11.0 [facility] Comment on above: Performed By: #### L 500.4050, L501.2300, L100.0100 #### [facility] [address] [place], [address] Chloride [Moles/Vol] 100 mmol/L Normal 96-108 [facility] Comment on above: Performed By: #### L 500.4050, L501.2300, L100.0100 #### [facility] [address] [place], [address] CO2 [Moles/Vol] 24.0 mmol/L Normal 22.0-29.0 [facility] Comment on above: Performed By: #### L 500.4050, L501.2300, L100.0100 #### [facility] [address] [place], [address] Creatinine [Mass/Vol] 0.99 mg/dL Normal 0.70-1.20 [facility] Comment on above: Performed By: #### L 500.4050, L501.2300, L100.0100 #### [facility] [address] [place], [address] ECRCL 67.29 ml/min Normal [facility] Comment on above: Performed By: #### L 500.4050, L501.2300, L100.0100 #### [facility] [address] [place], [address] GFR/1.73 sq M.predicted among non-blacks MDRD (S/P/Bld) [Vol rate/Area] 59 mL/min/{1.73_m2} Low >60 [facility] Comment on above: Result Comment: mL/m in/1.73m2 CKD-EPI Creatinine Equation (2020) Performed By: #### L 500.4050, L501.2300, L100.0100 #### [facility] [address] [place], [address] Globulin (S) [Mass/Vol] 2.6 g/dL Normal 2.2-4.2 [facility] Comment on above: Performed By: #### L 500.4050, L501.2300, L100.0100 #### [facility] [address] [place], [address] Glucose [Mass/Vol] 142 mg/dL High 70-99 [facility] Comment on above: Performed By: #### L 500.4050, L501.2300, L100.0100 #### [facility] [address] [place], [address] Potassium [Moles/Vol] 4.3 mmol/L Normal 3.3-5.1 [facility] Comment on above: Performed By: #### L 500.4050, L501.2300, L100.0100 #### [facility] [address] [place], [address] Sodium [Moles/Vol] 134 mmol/L Normal 133-145 [facility] Comment on above: Performed By: #### L 500.4050, L501.2300, L100.0100 #### [facility] [address] [place], [address] T PROT 5.8 g/dL Low 5.9-8.4 [facility] Comment on above: Performed By: #### L 500.4050, L501.2300, L100.0100 #### [facility] [address] [place], [address] Urea nitrogen [Mass/Vol] 19 mg/dL Normal 4-19 [facility] Comment on above: Performed By: #### L 500.4050, L501.2300, L100.0100 #### [facility] [address] [place], [address] Magnesiumon 04-28-2024 Magnesium [Mass/Vol] 1.5 mg/dL Normal 1.5-2.2 [facility] Comment on above: Performed By: #### L 500.4050, L501.2300, L100.0100 #### [facility] [address] [place], [address] Phosphoruson 04-28-2024 Phosphate [Mass/Vol] 2.3 mg/dL Low 2.7-4.5 [facility] Comment on above: Performed By: #### L 500.4050, L501.2300, L100.0100 #### [facility] [address] [place], [address] Type AND Screenon 04-28-2024 Ab SCREEN GEL Negative Normal [facility] Comment on above: Order Comment: CMV N EG? NNumber of units to transfuse: 2Reason for Ordering Blood: AcuteAre the blood/blood products to be transfused? YIs the patient having/had surgery? Watson Ireland Performed By: #### L 501.080 #### [facility] [address] [place], [address] ABO and Rh group Nom (Bld) Blood group A Rh(D) negative Normal [facility] Comment on above: Order Comment: CMV N EG? NNumber of units to transfuse: 2Reason for Ordering Blood: AcuteAre the blood/blood products to be transfused? YIs the patient having/had surgery? Watson Ireland Performed By: #### L 501.080 #### [facility] [address] [place], [place], [address] 12 Lead EKGon 04-27-2024 12 Lead EKG [facility] [address] [place] [address] 12 Lead EKG 04/27/24 1642 MR#: [id number] Acct: [id number] Name: PRICILA HOOKER Rep #: [id number] : 1945 78 From: Leydi Hayden MD Attending Dr: Dr. Eddie Vera MD Status : DIS IN Ordering Dr: Fidencio Ordaz DO Date: 04/27/24 Location: [facility]3 Sex: F C Admitted: 04/28/24 Test Reason : CONFUSION Blood Pressure : */* mmHG Vent. Rate : 109 BPM Atrial Rate : 109 BPM P-R Int : 166 ms QRS Dur : 90 ms QT Int : 342 ms P-R-T Axes : 38 -27 78 degrees QTcB Int : 460 ms Sinus tachycardia Low voltage QRS Nonspecific ST and T wave abnormality Abnormal ECG Confirmed by Leydi Hayden ([id number]), video editor HOOD BRUNNER ([id number]) on 05/01/2024 10:03:45 AM Referred By: Fidencio Ordaz Confirmed By: Leydi Hayden 05/01/24 1003 Date Leydi Hayden MD CC: Dr. Vinh Van MD; Dr. Eddie Vera MD; Dr. Fidencio Ordaz DO Signed Normal [facility] Abdomen/Pelvis W IV Cont ONL Yon 04-27-2024 Abdomen/Pelvis W IV Cont ONLY [facility] Services [address] [place] [address] Abdomen/Pelvis W IV Cont ONLY MR#: [id number] Acct: [id number] Name: PRICILA HOOKER Rep #: [id number] : 1945 F 78 From: Joshua Sarabia PCP: Dr. Vinh Van MD Status: REG ER Study: Abdomen/Pelvis W IV Cont ONLY Date of Exam: Exam# [id number] Ordering Dr: Fidencio Ordaz DO PROCEDURE: CT abdomen pelvis with IV contrast REASON FOR EXAM: Pain, fever TECHNIQUE: Multiple contiguous axial images through the abdomen and pelvis were obtained after the administration of intravenous contrast. Two-dimensional coronal and sagittal reformatted images were reconstructed. Low-dose imaging technique was utilized. COMPARISON: None. FINDINGS: Trace bilateral pleural effusions. Subtle lobular contour of the liver potentially related to underlying hepatocellular disease. Spleen, pancreas and right adrenal gland are intact. Mild nodular thickening of the left adrenal gland. Gallbladder is surgically absent. No significant biliary ductal dilation. Kidneys enhance symmetrically. Suspected subtle enhancing lesion along the anterior midpole of the left kidney measuring up to 2.2 cm. Small left renal cyst. No renal calculi or hydronephrosis. Urinary bladder is decompressed. Uterus is absent. No bowel obstruction, focal bowel wall thickening or significant perienteric inflammation. Small nodular focus in the right hemipelvis (axial image 91/133). Subtle thickening of the left pericolic gutter fascial plane. Multiple small left-sided omental nodules. No pelvic free fluid. No free air. Calcified nonaneurysmal abdominal aorta. No bulky adenopathy. Small bilateral fat containing inguinal hernias. No acute osseous abnormality. Chronic appearing compression fracture deformities of T11 and L1. Degenerative changes of the spine and hips. CT/Abdomen/Pelvis W IV Cont ONLY IMPRESSION: 1. No obstruction or acute inflammatory process. 2. Left-sided omental nodularity with mild thickening of the left pericolic gutter fascial plane and at least 1 small nodule within the pelvis. Findings concerning for metastatic disease. 3. Subtle apparent enhancing lesion in the anterior pole of the left kidney as above. Recommend further assessment with contrast-enhanced MRI. 4. Trace bilateral pleural effusions. 5. Subtle nodular contour of the liver. Correlate with liver enzymes. One or more dose reduction techniques were used (e.g., Automated exposure control, adjustment of the mA and/or kV according to patient size, use of iterative reconstruction technique). Reading Location: [facility] CC: Dr. Vinh Van MD; Dr. Fidencio Ordaz DO Printer Floor Covering Assistant: Signed Normal [facility] Bedside Glucoseon 04-27-2024 FINGERSTICK GLU 139 mg/dL High 74-106 [facility] Comment on above: Result Comment: LIN HUNTER OF PATIENT CARE PER NURSING PROTOCOL Performed By: #### L 501.080 #### [facility] [address] [place], [address] Brain/Head without Contrasto n 04-27-2024 Brain/Head without Contrast [facility] Imaging Services [address] [place] [address] Brain/Head without Contrast MR#: [id number] Acct: [id number] Name: PRICILA HOOKER Rep #: [id number] : 1945 F 78 From: Joshua Sarabia PCP: Dr. Vinh Van MD Status: REG ER Study: Brain/Head without Contrast Date of Exam: 04/02 09/22 Exam# [id number] Ordering Dr: Fidencio Ordaz DO EXAM: CT brain without IV contrast CLINICAL HISTORY: Pain, fever, altered mental status, history of endometrial cancer COMPARISON: None TECHNIQUE: Multiple contiguous axial images of the brain were obtained without the administration of intravenous contrast. Two-dimensional coronal and sagittal reformatted images were reconstructed. Low-dose imaging technique was utilized. FINDINGS: No evidence of acute intracranial hemorrhage, midline shift or mass effect. No definite CT evidence of acute territorial cortical infarction. No hydrocephalus. Mild/moderate generalized cerebral atrophy and chronic small-vessel ischemic changes. No depressed calvarial fracture. Large exostosis along the left parietal convexity. Paranasal sinuses are clear. Small amount of fluid in the bilateral mastoid air cells. CT/Brain/Head without Contrast IMPRESSION: 1. No acute intracranial abnormality. If there is clinical concern for acute ischemia, MRI is most sensitive. 2. Chronic/incidental findings as above. Reading Location[facility] CC: Dr. Vinh Van MD; Dr. Fidencio Ordaz DO Printer Floor Covering Assistant: Signed Normal [facility] CBC W/Diff, Automatedon 04-02 Absolute Lymph 0.37 X10 3/uL Low 0.83-4.51 [facility] Comment on above: Performed By: #### L 501.5600 #### [facility] [address] [place], [address] Absolute Neut 5.5 X10 3/uL Normal 2.0-7.7 [facility] Comment on above: Performed By: #### L 501.5600 #### [facility] [address] [place], [address] Basophils/100 WBC (Bld) 0.2 % Normal 0-1 [facility] Comment on above: Performed By: #### L 501.5600 #### [facility] [address] [place], [address] Eosinophils/100 WBC (Bld) 0.0 % Normal 0-5 [facility] Comment on above: Performed By: #### L 501.5600 #### [facility] [address] [place], [address] Erythrocyte distribution width (RBC) [Ratio] 14.5 % Normal 11.6-14.6 [facility] Comment on above: Performed By: #### L 501.5600 #### [facility] [address] [place], [address] Hematocrit (Bld) [Volume fraction] 26.0 % Low 37-47 [facility] Comment on above: Performed By: #### L 501.5600 #### [facility] [address] [place], [address] Hemoglobin (Bld) [Mass/Vol] 8.7 g/dL Low 12.0-15.0 [facility] Comment on above: Performed By: #### L 501.5600 #### [facility] [address] [place], [address] IG% 0.700 Normal 0.0-0.9 [facility] Comment on above: Result Comment: IG% - Immature Granulocytes (promyelocytes, myelocytes and metamyelocytes) > 1% indicates that a LEFT SHIFT is Present. Performed By: #### L 501.5600 #### [facility] [address] [place], [address] Lymphocytes/100 WBC (Bld) 6.1 % Low 19-41 [facility] Comment on above: Performed By: #### L 501.5600 #### [facility] [address] [place], [address] MCH (RBC) [Entitic mass] 33.2 pg High 27.0-32.0 [facility] Comment on above: Performed By: #### L 501.5600 #### [facility] [address] [place], [address] MCHC (RBC) [Mass/Vol] 33.5 g/dL Normal 32-36 [facility] Comment on above: Performed By: #### L 501.5600 #### [facility] [address] [place], [address] MCV (RBC) [Entitic vol] 99.2 fL High 81-99 [facility] Comment on above: Performed By: #### L 501.5600 #### [facility] [address] [place], [address] Monocytes/100 WBC (Bld) 2.1 % Normal 0-10 [facility] Comment on above: Performed By: #### L 501.5600 #### [facility] [address] [place], [address] Neutrophils/100 WBC (Bld) 90.9 % High 47-70 [facility] Comment on above: Performed By: #### L 501.5600 #### [facility] [address] [place], [address] Nucleated RBC (Bld) [#/Vol] 0 10*3/uL Normal 0-5 [facility] Comment on above: Performed By: #### L 501.5600 #### [facility] [address] [place], [address] Platelet mean volume (Bld) [Entitic vol] 10.3 fL Normal 6.2-12.0 [facility] Comment on above: Performed By: #### L 501.5600 #### [facility] [address] [place], [address] Platelets (Bld) [#/Vol] 125 10*3/uL Low 150-450 [facility] Comment on above: Performed By: #### L 501.5600 #### [facility] [address] [place], [address] RBC (Bld) [#/Vol] 2.62 10*6/uL Low 4.2-5.4 [facility] Comment on above: Performed By: #### L 501.5600 #### [facility] [address] [place], [address] RDW SD 52.6 fl High 35.1-43.9 [facility] Comment on above: Performed By: #### L 501.5600 #### [facility] [address] [place], [address] WBC (Bld) [#/Vol] 6.1 10*3/uL Normal 4.4-11.0 [facility] Comment on above: Performed By: #### L 501.5600 #### [facility] [address] [place], [address] CNPNon 04-27-2024 CNPN Normal [facility] Chest PA and Lateralon 04-27 Chest PA and Lateral [facility] [address] [place] [address] Chest PA and Lateral MR#: [id number] Acct: [id number] Name: PRICILA HOOKER Rep #: [id number] : 1945 F 78 From: Joshua Sarabia PCP: Dr. Vinh Van MD Status: REG ER Study: Chest PA and Lateral Date of Exam: 04/27/24 Exam# [id number] Ordering Dr: Fidencio Ordaz DO PROCEDURE: Chest radiographs REASON FOR EXAM: Fever TECHNIQUE: Frontal and lateral views of the chest. COMPARISON: None. FINDINGS: Cardiomediastinal silhouette is within normal limits. No focal consolidation. No sizable pneumothorax. Left MediPort catheter in place. Possible 10 mm nodule in the left upper lobe overlying the medial scapular border. RAD/Chest PA and Lateral IMPRESSION: 1. No acute airspace abnormality. 2. Suspected small left upper lobe pulmonary nodule. Recommend further assessment with chest CT on a nonemergent basis. Reading Location: [facility] CC: Dr. Vinh Van MD; Dr. Fidencio Ordaz DO Printer Floor Covering Assistant: Signed Normal [facility] Comprehensive Metabolic Prof ilon 04-27-2024 Albumin [Mass/Vol] 3.8 g/dL Normal 3.4-4.8 [facility] Comment on above: Performed By: #### L 501.5600 #### [facility] [address] [place], [place], [address] Albumin/Globulin [Mass ratio] 1.2 {ratio} Normal 0.9-2.4 [facility] Comment on above: Performed By: #### L 648.5600 #### [facility] [address] [place], [place], [address] ALK PHOS 71 U/L Normal 35-104 [facility] Comment on above: Performed By: #### L 501.5600 #### [facility] [address] [place], [place], [address] ALT [Catalytic activity/Vol] 27 U/L Normal <=34 [facility] Comment on above: Performed By: #### L 501.5600 #### [facility] [address] [place], [address] Anion gap [Moles/Vol] 9 mmol/L Normal 5-15 [facility] Comment on above: Performed By: #### L 501.5600 #### [facility] [address] [place], [address] AST [Catalytic activity/Vol] 33 U/L High <=31 [facility] Comment on above: Performed By: #### L 501.5600 #### [facility] [address] [place], [address] Bilirubin [Mass/Vol] 0.42 mg/dL Normal 0.00-1.30 [facility] Comment on above: Performed By: #### L 501.5600 #### [facility] [address] [place], [address] BUN/CRE 20.5 RATIO High 10-20 [facility] Comment on above: Performed By: #### L 501.5600 #### [facility] [address] [place], [address] Calcium [Mass/Vol] 9.2 mg/dL Normal 7.6-11.0 [facility] Comment on above: Performed By: #### L 501.5600 #### [facility] [address] [place], [address] Chloride [Moles/Vol] 97 mmol/L Normal 96-108 [facility] Comment on above: Performed By: #### L 501.5600 #### [facility] [address] [place], [address] CO2 [Moles/Vol] 29.0 mmol/L Normal 22.0-29.0 [facility] Comment on above: Performed By: #### L 501.5600 #### [facility] [address] [place], [address] Creatinine [Mass/Vol] 1.0 mg/dL Normal 0.6-1.0 [facility] Comment on above: Performed By: #### L 501.5600 #### [facility] [address] [place], [address] ECRCL 66.05 ml/min Normal [facility] Comment on above: Performed By: #### L 501.5600 #### [facility] [address] [place], [address] GFR/1.73 sq M.predicted among non-blacks MDRD (S/P/Bld) [Vol rate/Area] 58 mL/min/{1.73_m2} Low >60 [facility] Comment on above: Result Comment: mL/m in/1.73m2 CKD-EPI Creatinine Equation (2020) Performed By: #### L 501.5600 #### [facility] [address] [place], [address] Globulin (S) [Mass/Vol] 3.1 g/dL Normal 2.2-4.2 [facility] Comment on above: Performed By: #### L 501.5600 #### [facility] [address] [place], [address] Glucose [Mass/Vol] 141 mg/dL High 70-99 [facility] Comment on above: Performed By: #### L 501.5600 #### [facility] [address] [place], [address] Potassium [Moles/Vol] 4.6 mmol/L Normal 3.3-5.1 [facility] Comment on above: Performed By: #### L 501.5600 #### [facility] [address] [place], [place], [address] Sodium [Moles/Vol] 135 mmol/L Normal 133-145 [facility] Comment on above: Performed By: #### L 501.5600 #### [facility] [address] [place], [address] T PROT 7.0 g/dL Normal 5.9-8.4 [facility] Comment on above: Performed By: #### L 501.5600 #### [facility] [address] [place], [place], [address] Urea nitrogen [Mass/Vol] 20 mg/dL High 4-19 [facility] Comment on above: Performed By: #### L 501.5600 #### [facility] [address] [place], [place], [address] Emergency Department Summary on 04-27-2024 Emergency Department Summary [facility] Medical Records Department [address] [place] [address] Emergency Department Summary 04/27/24 MR#: [id number] Acct: [id number] Name: PRICILA HOOKER Rep #: [id number] : 1945 78 From: Fidencio Ordaz DO PCP: Dr. Vinh Van MD Status:REG ER Location: ED ADDENDUM by Dr. Fidencio Ordaz DO on 04/27/24 at 2024 Patient's EKG reviewed independently interpreted by myself showed sinus tachycardia with a rate of 109 bpm. 04/27/242024 Cosigner Signature (if applicable): cc: Dr. Vinh Van MD * Signed HPI History of Present Illness Chief Complaint: Confusion Narrative Narrative: Patient is a 70-year-old female with past medical history of endometrial cancer with metastases, pancytopenia, chronic kidney disease stage III, GERD, hypercholesteremia, hypertension, diabetes who presented to the emergency department with a chief complaint of altered mental status. According to the family at bedside she was very confused at home today and notes that she was confused on the year and told her sister check her foot off She meant to take her sock off even though this was already off. States that she chronically is on 3 L nasal cannula at baseline. Patient according to family at bedside 2 days ago had new chemotherapy and follows with Dr. Branham oncology. They called his office and they advised the family members to bring her to the emergency department to be further evaluated. The family were states that the last round of chemotherapy was not working for her endometrial cancer therefore they are trying a new one. [facility] Medical History Former smoker Endometrial cancer, FIGO stage IIIC Pancytopenia Hypomagnesemia History of cancer of uterus Obesity Dyslipidemia Coronary artery disease Nonischemic cardiomyopathy CKD (chronic kidney disease) stage 3, GFR 30-59 ml/min Endometrial cancer GERD (gastroesophageal reflux disease) Benign neoplasm of colon Cholecystitis Hypercholesteremia Neuropathy Diabetes Hypertension Chest pain Home Medications ???Medication ???Instructions ???Recorded ???Last Taken ???Type amitriptyline 50 mg tablet 50 mg PO QHS DEPRESSION 12/23/22 0 03/09/23 History atorvastatin 40 mg tablet 40 mg PO QHS CHOLESTEROL 12/23/22 03/09/23 History dulaglutide 3 mg/0.5 mL 3 mg subcut TU DIABETES 12/23/22 0 03/09/23 History subcutaneous pen injector (Trulicity) gabapentin 100 mg capsule 100 mg PO TID NERVE PAIN 12/23/22 03/10/23 History magnesium chloride 71.5 mg 71.5 mg PO BID SUPPLEMENT 12/29/22 03/10/23 History (magnesium chloride) tablet,delayed release (Slow-Mag) ondansetron HCl 8 mg tablet 8 mg PO Q12H PRN NAUSEA 12/29/22 U nknown History aspirin 81 mg tablet,delayed 81 mg PO DAILY HEART HEALTH 03/10/23 History release (Adult Low Dose Aspirin) acetaminophen 500 mg tablet 500 mg PO Q6H PRN PAIN 03/10/23 Un known History (Acetaminophen Extra Strength) glimepiride 4 mg tablet 4 mg PO BID DIABETES 03/10/2303/01 History silver sulfadiazine 1 % topical 1 applic topical DAILY PRN BURN 03/10/23 History cream carvedilol 3.125 mg tablet 6.25 mg PO BID 12/17/23 Unknown Hi story duloxetine 60 mg capsule,delayed 60 mg PO DAILY 04/27/24 Unknown Hi story release fluticasone furoate 100 1 inh inhalation Q24H 04/27/24 Unk nown History mcg-vilanterol 25 mcg/dose inhalation powder metformin 500 mg tablet 1,000 mg PO BID DIABETES 04/27/24 Unknown History Allergy/AdvReac Type Severity Reaction Status Date / Time No Known Allergies Allergy Verified 04/27/24 16:18 Family History Father Myocardial infarction Mother Heart disease irregular heart rate Colon cancer Surgical History History of cholecystectomy Hx of hysterectomy, total Hx laparoscopic cholecystectomy Hx of cataract surgery History of total left knee replacement (TKR) ( 01/2011) History of total right knee replacement (TKR) ( 05/11/11) Social History household members: none Smoking Status: Former smoker how long ago did patient quit smokin alcohol intake: never substance use type: does not use ROS ROS ED ROS Narrative Constitutional: Denies fever, chills, headaches, lightness, dizziness Eyes: Denies change in vision double vision blurry vision Cardiovascular: Denies chest pain Respiratory: Denies coughing shortness of breath Abdomen: Complains of nausea vomiting denies any abdominal pain : Denies urinary symptoms Neurological: Denies numbness, weakness, tingling Musculoskeletal: Denies back (more content not included)... Normal [facility] H AND P Exam - Hospitaliston 04-27-2024 H&P Exam - Hospitalist [facility] Medical Records Department [address] [place] [address] H P Exam - Hospitalist 04/27/242015 MR#: [id number] Acct: [id number] Name: PRICILA HOOKER Rep #: [id number] : 1945 78 From: Bing Villegas DO PCP: Dr. Vinh Van MD Status:ADM DIONE Location: [place] [address] HPI - General General Date of Admission: 04/27/24 Date of Service: 04/27/24 Chief Complaint: Fever and Confusion. HPI Narrative PRICILA JOHNSONUIRE, is a 78 F with a past medical history of essential hypertension; on carvedilol, hyperlipidemia; on atorvastatin, morbid obesity; with BMI of 45.3 this admission, former tobacco abuse (quit 1967), DM-2; of unknown control on dulaglutide, glimepiride and metformin, history of diabetic neuropathy; on gabapentin 3 times daily, history of CAD; on baby aspirin daily, history of nonischemic cardiomyopathy, CKD; stage IIIa, history of asthma; on fluticasone furoate-vilanterol, chronic hypoxic respiratory failure on 3L NC (nocturnal), depression; on duloxetine and amitriptyline, history of cataract surgery, history of cholecystitis; s/p laparoscopic cholecystectomy, history of GERD; currently not on treatment, OA; with history of bilateral TKR's and history of metastatic endometrial cancer; s/p total hysterectomy on chemotherapy with history of pancytopenia followed by Dr. Branham of oncology who presents to [facility] ER complaining of fever and confusion. Ms. Hooker is not a fully-reliable historian at this time so information was gathered from chart, medical staff and computer. The patient's family informed the ER physician that she was noted to be confused at home earlier today with patient asking her sister to take her socks off - even though she did not have any socks on at that time. The family also reported that she had new chemotherapy 2 days ago with patient apparently having difficulty tolerating her new regimen after she has been taken off her old chemotherapy regimen because it was not working and was causing adverse side effects. The family then called Dr. Branham's office and they were instructed to bring her into the ER for further evaluation and treatment. Though the patient is a limited historian she admits to intermittent nausea with vomiting causing bilious emesis. She denies associated chills, headaches, visual changes, chest pain, shortness of breath, cough, dysuria, hematuria, abdominal pain, diarrhea, constipation or rash. In the ER she was noted to have a fever of 103.1 ???F along with Tachycardia of 111 bpm and Uncontrolled Hypertension of 183/85 mmHg present on admission likely due to Adverse Drug Reaction to Chemotherapy suspected to be causing Fever with Metabolic Encephalopathy with CT scan of the abdomen pelvis done in ER revealing no obstruction or acute inflammatory process with Left-sided omental nodularity with mild thickening of the Left pericolic gutter fascial plane and at least 1 small nodule within the pelvis with findings concerning for Metastatic Disease along with subtle apparent enhancing lesion in the anterior pole of the Left kidney as above with recommend further assessment with contrast-enhanced MRI in addition to trace bilateral pleural effusions and subtle nodular contour of the liver. Her UA was positive for evidence of colonization but not acute infection with patient started on empiric ceftriaxone IV in the ER along with IV metronidazole in case patient's metastatic disease to the Left pericolic gutter fascial plane is a source of her infection, which is doubtful as she denies abdominal pain or other GI symptoms at this time. She was then admitted to the general medical floor under observation status for ongoing care for stay that is expected to be less than 2 midnights. [facility] Medical History (Updated 04/28/24 @ 03:[address] Bing Villegas, DO) Hypomagnesemia Former smoker Endometrial cancer, FIGO stage IIIC Pancytopenia History of cancer of uterus Obesity Dyslipidemia Coronary artery disease Nonischemic cardiomyopathy CKD (chronic kidney disease) stage 3, GFR 30-59 ml/min Endometrial cancer GERD (gastroesophageal reflux disease) Benign neoplasm of colon Cholecystitis Hypercholesteremia Neuropathy Diabetes Hypertension Chest pain Home Medications ???Medication ???Instructions ???Recorded ???Last Taken ???Type amitriptyline 50 mg tablet 50 mg PO QHS DEPRESSION 12/23/22 0 03/09/23 History atorvastatin 40 mg tablet 40 mg PO QHS CHOLESTEROL 12/23/22 03/09/23 History dulaglutide 3 mg/0.5 mL 3 mg subcut TU DIABETES 12/23/22 0 03/09/23 History subcutaneous pen injector (Trulicity) gabapentin 100 mg capsule 100 mg PO TID NERVE PAIN 12/23/22 03/10/23 History magnesium chloride 71.5 mg 71.5 mg PO BID SUPPLEMENT 12/29/22 03/10/23 History (magnesium chloride) tablet,delayed relea (more content not included)... Normal [facility] Hemoglobin A1con 04-27-2024 HbA1c (Bld) [Mass fraction] 6.0 % Normal <=5.6 [facility] Comment on above: Performed By: #### L 501.080 #### [facility] [address] [place], [address] Lactic Acidon 04-27-2024 Lactate [Moles/Vol] 1.1 mmol/L Normal 0.0-2.0 [facility] Comment on above: Order Comment: Y Performed By: #### L 501.5600 #### [facility] [address] [place], [address] Lipid Profileon 04-27-2024 CHOL:HDL 2.42 Normal [facility] Comment on above: Performed By: #### L 501.080 #### [facility] [address] [place], [address] Cholesterol [Mass/Vol] 103 mg/dL Normal <=200 [facility] Comment on above: Result Comment: Chol esterol level, Desirable <200 mg/dL Borderline high cholesterol 200-239 mg/dL High cholesterol >=240 mg/dL Recommendations of the NCEP Adult Treatment Panel for the following risk-cutoff thresholds for the [place] population. Performed By: #### L 501.080 #### [facility] [address] [place], [address] Cholesterol in HDL [Mass/Vol] 43 mg/dL Normal [facility] Comment on above: Result Comment: Radha onal Cholesterol Education Program (NCEP) guidelines: <40 mg/dL: Low HDL-cholesterol (major risk factor for CHD) >= 60 mg/dL: High HDL-cholesterol (negative risk factor for CHD) HDL-cholesterol is affected by a number of factors, e.g. smoking, exercise, hormones, sex and age. Performed By: #### L 501.080 #### [facility] [address] [place], [address] Cholesterol in LDL [Mass/Vol] 35 mg/dL Normal [facility] Comment on above: Result Comment: Bord jkjoev=312-616 mg/dL Higher Zesv=262 mg/dL or greater Performed By: #### L 501.080 #### [facility] [address] [place], [address] Cholesterol in VLDL [Mass/Vol] 26 mg/dL Normal 5-40 [facility] Comment on above: Performed By: #### L 501.080 #### [facility] [address] [place], [address] Triglyceride [Mass/Vol] 129 mg/dL Normal [facility] Comment on above: Result Comment: The drugs N-Acetylcysteine and Metamizole may falsely depress this assay. Normal range: <150 mg/dL Borderline High: 150-199 mg/dL High: 200-499 mg/dL Very High: >500 mg/dL Performed By: #### L 501.080 #### [facility] [address] [place], [address] M100.678on 04-27-2024 M100.678 SARS-CoV-2 (COVID 19 ) Negative INFLUENZA A Negative INFLUENZA B Negative RSV PCR Negative Normal [facility] Comment on above: Performed By: #### L 500.4050, L501.2300, L100.0100 #### [facility] [address] [place], [place], [address] MRI Abd WITH and W/O Contras ton 04-27-2024 MRI Abd WITH and W/O Contrast [facility] [address] [place], [place] [address] MRI Abd WITH and W/O Contrast MR#: [id number] Acct: [id number] Name: PRICILA HOOKER Rep #: [id number] : 1945 F 78 From: Nora Chaves MD PCP: Dr. Vinh Van MD Status: DIS IN Study: MRI Abd WITH and W/O Contrast Date of Exam: Exam# [id number] Ordering Dr: Bing Villegas DO ADDENDUM by Dr. Nora Chaves MD on 05/10/24 at 0840 27 mL of Clariscan was administered intravenously Reading Location: [facility] 05/10/24 0841 Date cc: Dr. Bing Villegas DO; Dr. Vinh Van MD * Signed PROCEDURE: MRI ABD WITH AND W/O CONTRAST REASON FOR EXAM: Metastatic endometrial cancer TECHNIQUE: Multiplanar, multisequence MRI of the upper abdomen without and with intravenous gadolinium-based contrast. COMPARISON: None. FINDINGS: Liver: Normal hepatic signal. No hepatic mass. Normal enhancement. Biliary: The gallbladder intrahepatic ducts and common bile duct appear normal. Pancreas: No mass or ductal dilation. Spleen: Normal size, signal intensities and contrast enhancement. Adrenals: No evidence of adrenal mass. Kidneys: No evidence of hydronephrosis. 2.8 cm T2 hyperintense left renal mass likely representing a cyst. There is a 0.7 cm T2 hyperintense mass noted in the right kidney. Peritoneum / Retroperitoneum: No ascites. Lymph Nodes: No upper abdominal lymphadenopathy. Major Vessels: The abdominal aorta and IVC are unremarkable. The portal and hepatic veins are patent. Bones: Bone marrow signal is unremarkable. MRI/MRI Abd WITH and W/O Contrast IMPRESSION: 1. No evidence of metastatic disease in the abdomen. 2. Bilateral renal cysts Reading Location: [facility] CC: Dr. Bing Villegas DO; Dr. Vinh Van MD Printer Floor Covering Assistant: Signed Normal [facility] Magnesiumon 04-27-2024 Magnesium [Mass/Vol] 1.2 mg/dL Low 1.5-2.2 [facility] Comment on above: Performed By: #### L 501.080 #### [facility] [address] [place], [place], [address] Partial Thromboplast Timeon 04-27-2024 aPTT Coag (Bld) [Time] 33.1 s Normal 24.1-36.2 [facility] Comment on above: Performed By: #### L 501.5600 #### [facility] [address] [place], [address] Prothrombin Time w/INRon INR Coag (PPP) [Relative time] 1.1 {INR} Normal [facility] Comment on above: Performed By: #### L 501.5600 #### [facility] [address] [place], [place], [address] PT Coag (PPP) [Time] 14.3 s Normal 11.7-14.9 [facility] Comment on above: Performed By: #### L 501.5600 #### [facility] [address] [place], [address] Thyroid Stim Hormone (TSH)on 04-27-2024 TSH 0.442 uIU/mL Normal 0.300-4.200 [facility] Comment on above: Performed By: #### L 501.080 #### [facility] [address] [place], [address] Urinalysis, Completeon 04-27 RBC 0 SEEN Normal 0-5 [facility] Comment on above: Order Comment: COLLE CTOR TO SPECIFY Performed By: #### L 501.080 #### [facility] [address] [place], [place], [address] CNPNon 04-26-2024 CNPN Normal [facility] CBC W Auto Differential pane l (Bld)on 04-25-2024 Basophils (Bld) [#/Vol] NINF C [facility] Basophils/100 WBC (Bld) 0.3 % C [facility] Differential cell count method Nom (Bld) Auto [facility] Eosinophils (Bld) [#/Vol] 0.08 10*3/uL NINF [facility] Eosinophils/100 WBC (Bld) 2.1 % [facility] Erythrocyte distribution width (RBC) [Ratio] 14.8 % 11.5 - 15.0 % [facility] Hematocrit (Bld) [Volume fraction] 26.6 % Low 36.0 - 46.0 % [facility] Hemoglobin (Bld) [Mass/Vol] 8.9 g/dL Low 11.5 - 15.5 g/dL [facility] Immature granulocytes (Bld) [#/Vol] [facility] Immature granulocytes/100 WBC (Bld) 0.3 % [facility] Interpretation and review of laboratory results Abnormal [facility] Lymphocytes (Bld) [#/Vol] 0.76 10*3/uL Low [facility] Lymphocytes/100 WBC (Bld) 20.2 % [facility] MCH (RBC) [Entitic mass] 33.2 pg 26.0 - 34.0 pg [facility] MCHC (RBC) [Mass/Vol] 33.5 g/dL 30.5 - 36.0 g/dL [facility] MCV (RBC) [Entitic vol] 99.3 fL 80.0 - 100.0 fL [facility] Monocytes (Bld) [#/Vol] 0.43 10*3/uL [facility] Monocytes/100 WBC (Bld) 11.4 % C [facility] Neutrophils (Bld) [#/Vol] 2.48 10*3/uL [facility] Neutrophils/100 WBC (Bld) 65.7 % [facility] Nucleated RBC (Bld) [#/Vol] [facility] Nucleated RBC/100 WBC (Bld) [Ratio] 0 % /100 WBC [facility] Platelet mean volume (Bld) [Entitic vol] 9.1 fL 9.0 - 12.7 fL [facility] Platelets (Bld) [#/Vol] 115 10*3/uL Low [facility] RBC (Bld) [#/Vol] 2.68 10*6/uL Low 3.90 - 5.2 0 m/uL [facility] WBC (Bld) [#/Vol] 3.77 10*3/uL [facility] Basophils (Bld) [#/Vol] 10*3/uL Normal <0.11 C [facility] Comment on above: Order Comment: Speci men Type: BLOOD SPECIMENOrdering Facility: [facility] Address: [address] [place] [address] Performed By: #### 5 7021-8 ####[facility] [id number] [place] [address] [place] Basophils/100 WBC (Bld) 0.3 % Normal C [facility] Comment on above: Order Comment: Speci men Type: BLOOD SPECIMENOrdering Facility: [facility] Address: [address] [place] [address] Performed By: #### 5 7021-8 ####[facility] [id number] [place] [address] [place] Differential cell count method Nom (Bld) Auto Normal [facility] Comment on above: Order Comment: Speci men Type: BLOOD SPECIMENOrdering Facility: [facility] Address: [address] [place] [address] Performed By: #### 5 7021-8 ####[facility] [id number] [place] [address] [place] Eosinophils (Bld) [#/Vol] 0.08 10*3/uL Normal <0.46 [facility] Comment on above: Order Comment: Speci men Type: BLOOD SPECIMENOrdering Facility: [facility] Address: [address] [place] [address] Performed By: #### 5 7021-8 ####[facility] [id number] [place] [address] [place] Eosinophils/100 WBC (Bld) 2.1 % Normal [facility] Comment on above: Order Comment: Speci men Type: BLOOD SPECIMENOrdering Facility: [facility] Address: [address] [place] [address] Performed By: #### 5 7021-8 ####[facility] [id number] [place] [address] [place] Erythrocyte distribution width (RBC) [Ratio] 14.8 % Normal 11.5-15.0 [facility] Comment on above: Order Comment: Speci men Type: BLOOD SPECIMENOrdering Facility: [facility] Address: [address] [place] [address] Performed By: #### 5 7021-8 ####[facility] [id number] [place] [address] [place] Hematocrit (Bld) [Volume fraction] 26.6 % Low 36.0-46.0 [facility] Comment on above: Order Comment: Speci men Type: BLOOD SPECIMENOrdering Facility: [facility] Address: [address] [place] [address] Performed By: #### 5 7021-8 ####[facility] [id number] [place] [address] [place] Hemoglobin (Bld) [Mass/Vol] 8.9 g/dL Low 11.5-15.5 [facility] Comment on above: Order Comment: Speci men Type: BLOOD SPECIMENOrdering Facility: [facility] Address: [address] [place] [address] Performed By: #### 5 7021-8 ####[facility] [id number] [place] [address] [place] Immature granulocytes (Bld) [#/Vol] 10*3/uL Normal <0.10 [facility] Comment on above: Order Comment: Speci men Type: BLOOD SPECIMENOrdering Facility: [facility] Address: [address] [place] [address] Performed By: #### 5 7021-8 ####[facility] [id number] [place] [address] [place] Immature granulocytes/100 WBC (Bld) 0.3 % Normal [facility] Comment on above: Order Comment: Speci men Type: BLOOD SPECIMENOrdering Facility: [facility] Address: [address] [place] [address] Performed By: #### 5 7021-8 ####[facility] [id number] [place] [address] [place] Lymphocytes (Bld) [#/Vol] 0.76 10*3/uL Low 1.00-4.00 [facility] Comment on above: Order Comment: Speci men Type: BLOOD SPECIMENOrdering Facility: [facility] Address: [address] [place] [address] Performed By: #### 5 7021-8 ####[facility] [id number] [place] [address] [place] Lymphocytes/100 WBC (Bld) 20.2 % Normal [facility] Comment on above: Order Comment: Speci men Type: BLOOD SPECIMENOrdering Facility: [facility] Address: [address] [place] [address] Performed By: #### 5 7021-8 ####[facility] [id number] [place] [address] [place] MCH (RBC) [Entitic mass] 33.2 pg Normal 26.0-34.0 [facility] Comment on above: Order Comment: Speci men Type: BLOOD SPECIMENOrdering Facility: [facility] Address: [address] [place] [address] Performed By: #### 5 7021-8 ####[facility] [id number] [place] [address] [place] MCHC (RBC) [Mass/Vol] 33.5 g/dL Normal 30.5-36.0 [facility] Comment on above: Order Comment: Speci men Type: BLOOD SPECIMENOrdering Facility: [facility] Address: [address] [place] [address] Performed By: #### 5 7021-8 ####[facility] [id number] [place] [address] [place] MCV (RBC) [Entitic vol] 99.3 fL Normal 80.0-100.0 C [facility] Comment on above: Order Comment: Speci men Type: BLOOD SPECIMENOrdering Facility: [facility] Address: [address] [place] [address] Performed By: #### 5 7021-8 ####[facility] [id number] [place] [address] [place] Monocytes (Bld) [#/Vol] 0.43 10*3/uL Normal <0.87 [facility] Comment on above: Order Comment: Speci men Type: BLOOD SPECIMENOrdering Facility: [facility] Address: [address] [place] [address] Performed By: #### 5 7021-8 ####[facility] [id number] [place] [address] [place] Monocytes/100 WBC (Bld) 11.4 % Normal C [facility] Comment on above: Order Comment: Speci men Type: BLOOD SPECIMENOrdering Facility: [facility] Address: [address] [place] [address] Performed By: #### 5 7021-8 ####[facility] [id number] [place] [address] [place] Neutrophils (Bld) [#/Vol] 2.48 10*3/uL Normal 1.45-7.50 [facility] Comment on above: Order Comment: Speci men Type: BLOOD SPECIMENOrdering Facility: [facility] Address: [address] [place] [address] Performed By: #### 5 7021-8 ####[facility] [id number] [place] [address] [place] Neutrophils/100 WBC (Bld) 65.7 % Normal [facility] Comment on above: Order Comment: Speci men Type: BLOOD SPECIMENOrdering Facility: [facility] Address: [address] [place] [address] Performed By: #### 5 7021-8 ####[facility] [id number] [place] [address] [place] Nucleated RBC (Bld) [#/Vol] 10*3/uL Normal <0.01 [facility] Comment on above: Order Comment: Speci men Type: BLOOD SPECIMENOrdering Facility: [facility] Address: [address] [place] [address] Performed By: #### 5 7021-8 ####[facility] [id number] [place] [address] [place] Nucleated RBC/100 WBC (Bld) [Ratio] 0.0 /100 WBC Normal [facility] Comment on above: Order Comment: Speci men Type: BLOOD SPECIMENOrdering Facility: [facility] Address: [address] [place] [address] Performed By: #### 5 7021-8 ####[facility] [id number] [place] [address] [place] Platelet mean volume (Bld) [Entitic vol] 9.1 fL Normal 9.0-12.7 [facility] Comment on above: Order Comment: Speci men Type: BLOOD SPECIMENOrdering Facility: [facility] Address: [address] [place] [address] Performed By: #### 5 7021-8 ####[facility] [id number] [place] [address] [place] Platelets (Bld) [#/Vol] 115 10*3/uL Low 150-400 [facility] Comment on above: Order Comment: Speci men Type: BLOOD SPECIMENOrdering Facility: [facility] Address: [address] [place] [address] Performed By: #### 5 7021-8 ####[facility] [id number] [place] [address] [place] RBC (Bld) [#/Vol] 2.68 10*6/uL Low 3.90-5.20 [facility] Comment on above: Order Comment: Speci men Type: BLOOD SPECIMENOrdering Facility: [facility] Address: [address] [place] [address] Performed By: #### 5 7021-8 ####[facility] [id number] [address] [place] WBC (Bld) [#/Vol] 3.77 10*3/uL Normal 3.70-11.00 [facility] Comment on above: Order Comment: Speci men Type: BLOOD SPECIMENOrdering Facility: [facility] Address: [address] [place] [address] Performed By: #### 5 7021-8 ####[facility] [id number] [place] [address] [place] Comprehensive metabolic 2000 panelOrdered By: Zoila Rodriguez on 04-25-2024 Albumin [Mass/Vol] 3.8 g/dL Low 3.9 - 4.9 g/dL [facility] ALP [Catalytic activity/Vol] 76 U/L 34 - 123 U/L [facility] ALT [Catalytic activity/Vol] 9 U/L 7 - 38 U/L [facility] Anion gap [Moles/Vol] 13 mmol/L 8 - 15 mmol/L [facility] AST [Catalytic activity/Vol] 10 U/L Low 13 - 35 U/L [facility] Bilirubin [Mass/Vol] 0.3 mg/dL 0.2 - 1 .3 mg/dL [facility] Calcium [Mass/Vol] 9.5 mg/dL 8.5 - 10. 2 mg/dL [facility] Chloride [Moles/Vol] 98 mmol/L 98 - 10 7 mmol/L [facility] CO2 [Moles/Vol] 28 mmol/L 22 - 30 mmol/L [facility] Creatinine [Mass/Vol] 1 mg/dL High 0.58 - 0.96 mg/dL [facility] GFR/1.73 sq M.predicted among non-blacks MDRD (S/P/Bld) [Vol rate/Area] 58 mL/min/{1.73_m2} Low - PINF [facility] Comment on above: Estimated Glomerular Filtration Rate (eGFR) is calculated using the 2020 CKD-EPI creatinine equation. This equation utilizes serum creatinine, sex, and age as parameters. The creatinine assay has traceable calibration to isotope dilution-mass spectrometry. Refer to KDIGO guidelines for clinical interpretation. In patients with unstable renal function, e.g. those with acute kidney injury, the eGFR may not accurately reflect actual GFR. Glucose [Mass/Vol] 241 mg/dL High 74 - 99 mg/dL [facility] Comment on above: The [place] Diabete s Association (ADA) provides guidance for cutoff values for fasting glucose and random glucose. The ADA defines fasting as no caloric intake for at least 8 hours. Fasting plasma glucose results between 100 to 125 mg/dL indicate increased risk for diabetes (prediabetes). Fasting plasma glucose results greater than or equal to 126 mg/dL meet the criteria for diagnosis of diabetes. In the absence of unequivocal hyperglycemia, results should be confirmed by repeat testing. In a patient with classic symptoms of hyperglycemia or hyperglycemic crisis, random plasma glucose results greater than or equal to 200 mg/dL meet the criteria for diagnosis of diabetes. Reference: Standards of Medical Care in Diabetes 2016, [place] [employer] Association. Diabetes Care. 2016.39(Suppl 1). Potassium [Moles/Vol] 4.8 mmol/L 3.7 - 5.1 mmol/L [facility] Protein [Mass/Vol] 6.8 g/dL 6.3 - 8.0 g/dL [facility] Sodium [Moles/Vol] 139 mmol/L 136 - 144 mmol/L [facility] Urea nitrogen [Mass/Vol] 22 mg/dL High 7 - 21 mg/dL [facility] Comprehensive metabolic 2000 panelon 04-25-2024 Albumin [Mass/Vol] 3.8 g/dL Low 3.9-4.9 [facility] Comment on above: Order Comment: Speci men Type: BLOOD SPECIMENOrdering Facility: [facility] Address: [facility] [place] [address] Performed By: #### 2 4323-8, 44364-3 ####[facility] DENNIS ESCOBEDOA [id number] [place] [address] [place] ALP [Catalytic activity/Vol] 76 U/L Normal 34-123 [facility] Comment on above: Order Comment: Speci men Type: BLOOD SPECIMENOrdering Facility: [facility] Address: [address] [place] [address] Performed By: #### 2 4323-8, 80978-0 ####[facility] MILLWNCLIA [id number] [place] [address] [place] ALT [Catalytic activity/Vol] 9 U/L Normal 7-38 [facility] Comment on above: Order Comment: Speci men Type: BLOOD SPECIMENOrdering Facility: [facility] Address: [address] [place] [address] Performed By: #### 2 4323-8, 65665-5 ####[facility] [id number] [place] [address] [place] Anion gap [Moles/Vol] 13 mmol/L Normal 8-15 [facility] Comment on above: Order Comment: Speci men Type: BLOOD SPECIMENOrdering Facility: [facility] Address: [address] [place] [address] Performed By: #### 2 4323-8, 39132-8 ####[facility] [id number] [place] [address] [place] AST [Catalytic activity/Vol] 10 U/L Low 13-35 [facility] Comment on above: Order Comment: Speci men Type: BLOOD SPECIMENOrdering Facility: [facility] Address: [address] [place] [address] Performed By: #### 2 4323-8, 07620-0 ####[facility] [id number] [place] [address] [place] Bilirubin [Mass/Vol] 0.3 mg/dL Normal 0.2-1.3 [facility] Comment on above: Order Comment: Speci men Type: BLOOD SPECIMENOrdering Facility: [facility] Address: [address] [place] [address] Performed By: #### 2 4323-8, ####[facility]ML[facility] [id number] [place] [address] [place] Calcium [Mass/Vol] 9.5 mg/dL Normal 8.5-10.2 [facility] Comment on above: Order Comment: Speci men Type: BLOOD SPECIMENOrdering Facility: [facility] Address: [address] [place] [address] Performed By: #### 2 4323-8, ####[facility] [id number] [place] [address] [place] Chloride [Moles/Vol] 98 mmol/L Normal 98-107 [facility] Comment on above: Order Comment: Speci men Type: BLOOD SPECIMENOrdering Facility: [facility] Address: [address] [place] [address] Performed By: #### 2 4323-8, ####[facility] [id number] [place] [address] [place] CO2 [Moles/Vol] 28 mmol/L Normal 22-30 [facility] Comment on above: Order Comment: Speci men Type: BLOOD SPECIMENOrdering Facility: [facility] Address: [address] [place] [address] Performed By: #### 2 4323-8, ####[facility] [id number] [place] [address] [place] Creatinine [Mass/Vol] 1.00 mg/dL High 0.58-0.96 [facility] Comment on above: Order Comment: Speci men Type: BLOOD SPECIMENOrdering Facility: [facility] Address: [address] [id number] Performed By: #### 2 4323-8, 33255-0 ####[facility] [id number] [address] [place] Creatinine and Glomerular filtration rate.predicted panel (S/P/Bld) 58 mL/min/1.73m??? Low >=60 [facility] Comment on above: Order Comment: Guera doll Type: BLOOD SPECIMENOrdering Facility: [facility] Address: [address] [place] [address] Result Comment: Judith mated Glomerular Filtration Rate (eGFR) is calculated using the 2020 CKD-EPI creatinine equation. This equation utilizes serum creatinine, sex, and age as parameters. The creatinine assay has traceable calibration to isotope dilution-mass spectrometry. Refer to KDIGO guidelines for clinical interpretation. In patients with unstable renal function, e.g. those with acute kidney injury, the eGFR may not accurately reflect actual GFR. Performed By: #### 2 4323-8, 19691-1 ####[facility] [id number] [place] [address] [place] Glucose [Mass/Vol] 241 mg/dL High 74-99 [facility] Comment on above: Order Comment: Guera doll Type: BLOOD SPECIMENOrdering Facility: [facility] Address: [address] [place], [place] [id number] Result Comment: The [place] Diabetes Association (ADA) provides guidance for cutoff values for fasting glucose and random glucose. The ADA defines fasting as no caloric intake for at least 8 hours. Fasting plasma glucose results between 100 to 125 mg/dL indicate increased risk for diabetes (prediabetes).Fasting plasma glucose results greater than or equal to 126 mg/dL meet the criteria for diagnosis of diabetes. In the absence of unequivocal hyperglycemia, results should be confirmed by repeat testing. In a patient with classic symptoms of hyperglycemia or hyperglycemic crisis, random plasma glucose results greater than or equal to 200 mg/dL meet the criteria for diagnosis of diabetes.Reference: Standards of Medical Care in Diabetes 2016, [place] Diabetes Association. Diabetes Care. 2016.39(Suppl 1). Performed By: #### 2 4323-8, 21101-3 ####[facility] DENNIS LÓPEZYAMILET [id number] [place] [address] [place] Potassium [Moles/Vol] 4.8 mmol/L Normal 3.7-5.1 [facility] Comment on above: Order Comment: Speci men Type: BLOOD SPECIMENOrdering Facility: [facility] Address: [address] [place] [address] Performed By: #### 2 4323-8, ####[facility] RENEYAMILET [id number] [place] [address] [place] Protein [Mass/Vol] 6.8 g/dL Normal 6.3-8.0 [facility] Comment on above: Order Comment: Speci men Type: BLOOD SPECIMENOrdering Facility: [facility] Address: [address] [place] [address] Performed By: #### 2 4323-8, ####[facility] RENEYAMILET [id number] [place] [address] [place] Sodium [Moles/Vol] 139 mmol/L Normal 136-144 [facility] Comment on above: Order Comment: Speci men Type: BLOOD SPECIMENOrdering Facility: [facility] Address: [address] [place] [address] Performed By: #### 2 4323-8, ####[facility] RENETANMAYA [id number] [place] [address] [place] Urea nitrogen [Mass/Vol] 22 mg/dL High 7-21 [facility] Comment on above: Order Comment: Speci men Type: BLOOD SPECIMENOrdering Facility: [facility] Address: [address] [place] [address] Performed By: #### 2 4323-8, 59529-8 ####[facility] SERVICESWNCLIA [id number] [place] [address] [place] MAGNESIUMon 04-25-2024 Magnesium [Mass/Vol] 1.4 mg/dL Low 1.7 - 2 .3 mg/dL [facility] Magnesium SerPl-mCncon 04-25 Magnesium [Mass/Vol] 1.4 mg/dL Low 1.7-2.3 [facility] Comment on above: Order Comment: Speci men Type: BLOOD SPECIMENOrdering Facility: [facility] Address: [address] [place] [address] Performed By: #### 2 4323-8, ####[facility] [id number] [address] [place] No Panel Informationon 04-25 Interpretation and review of laboratory results Abnormal [facility] CNPNon 04-24-2024 CNPN Normal [facility] CNOVon 04-19-2024 CNOV Normal [facility] CBC W Auto Differential pane l (Bld)on 04-14-2024 Basophils (Bld) [#/Vol] [facility] Basophils/100 WBC (Bld) 0.2 % C [facility] Differential cell count method Nom (Bld) Auto [facility] Eosinophils (Bld) [#/Vol] 0.12 10*3/uL [facility] Eosinophils/100 WBC (Bld) 2.9 % [facility] Erythrocyte distribution width (RBC) [Ratio] 14.6 % 11.5 - 15.0 % [facility] Hematocrit (Bld) [Volume fraction] 26.4 % Low 36.0 - 46.0 % [facility] Hemoglobin (Bld) [Mass/Vol] 9 g/dL Low 11.5 - 15.5 g/dL [facility] Immature granulocytes (Bld) [#/Vol] NINF [facility] Immature granulocytes/100 WBC (Bld) 0.2 % [facility] Interpretation and review of laboratory results Abnormal [facility] Lymphocytes (Bld) [#/Vol] 0.7 10*3/uL Low [facility] Lymphocytes/100 WBC (Bld) 17.2 % [facility] MCH (RBC) [Entitic mass] 33.2 pg 26.0 - 34.0 pg [facility] MCHC (RBC) [Mass/Vol] 34.1 g/dL 30.5 - 36.0 g/dL [facility] MCV (RBC) [Entitic vol] 97.4 fL 80.0 - 100.0 fL [facility] Monocytes (Bld) [#/Vol] 0.47 10*3/uL [facility] Monocytes/100 WBC (Bld) 11.5 % C [facility] Neutrophils (Bld) [#/Vol] 2.77 10*3/uL [facility] Neutrophils/100 WBC (Bld) 68 % [facility] Nucleated RBC (Bld) [#/Vol] [facility] Nucleated RBC/100 WBC (Bld) [Ratio] 0 % /100 WBC [facility] Platelet mean volume (Bld) [Entitic vol] 10 fL 9.0 - 12.7 fL [facility] Platelets (Bld) [#/Vol] 72 10*3/uL Low [facility] Comment on above: No clot detected. RBC (Bld) [#/Vol] 2.71 10*6/uL Low 3.90 - 5.2 0 m/uL [facility] WBC (Bld) [#/Vol] 4.08 10*3/uL [facility] Basophils (Bld) [#/Vol] 10*3/uL Normal <0.11 [facility] Comment on above: Order Comment: Speci men Type: BLOOD SPECIMENOrdering Facility: [facility] Address: [address] [place] [address] Performed By: #### 5 7021-8 ####[facility] DENNISHOLZER [facility]ENTER – JACKSONAmalia [id number] [address] [facility] Basophils/100 WBC (Bld) 0.2 % Normal [facility] Comment on above: Order Comment: Speci men Type: BLOOD SPECIMENOrdering Facility: [facility] Address: [address] [place] [address] Performed By: #### 5 7021-8 ####[facility] MILLWNCLIA [id number] [place] [address] [place] Differential cell count method Nom (Bld) Auto Normal [facility] Comment on above: Order Comment: Speci men Type: BLOOD SPECIMENOrdering Facility: [facility] Address: [address] [place] [address] Performed By: #### 5 7021-8 ####[facility] [id number] [place] [address] [place] Eosinophils (Bld) [#/Vol] 0.12 10*3/uL Normal <0.46 [facility] Comment on above: Order Comment: Speci men Type: BLOOD SPECIMENOrdering Facility: [facility] Address: [address] [place] [address] Performed By: #### 5 7021-8 ####[facility] [id number] [place] [address] [place] Eosinophils/100 WBC (Bld) 2.9 % Normal [facility] Comment on above: Order Comment: Speci men Type: BLOOD SPECIMENOrdering Facility: [facility] Address: [address] [place] [address] Performed By: #### 5 7021-8 ####[facility] [id number] [place] [address] [place] Erythrocyte distribution width (RBC) [Ratio] 14.6 % Normal 11.5-15.0 [facility] Comment on above: Order Comment: Speci men Type: BLOOD SPECIMENOrdering Facility: [facility] Address: [address] [place] [address] Performed By: #### 5 7021-8 ####[facility] [id number] [place] [address] [place] Hematocrit (Bld) [Volume fraction] 26.4 % Low 36.0-46.0 [facility] Comment on above: Order Comment: Speci men Type: BLOOD SPECIMENOrdering Facility: [facility] Address: [address] [place] [address] Performed By: #### 5 7021-8 ####[facility] [id number] [place] [address] [place] Hemoglobin (Bld) [Mass/Vol] 9.0 g/dL Low 11.5-15.5 [facility] Comment on above: Order Comment: Speci men Type: BLOOD SPECIMENOrdering Facility: [facility] Address: [address] [place] [address] Performed By: #### 5 7021-8 ####[facility] [id number] [place] [address] [place] Immature granulocytes (Bld) [#/Vol] 10*3/uL Normal <0.10 [facility] Comment on above: Order Comment: Speci men Type: BLOOD SPECIMENOrdering Facility: [facility] Address: [address] [place] [address] Performed By: #### 5 7021-8 ####[facility] [id number] [place] [address] [place] Immature granulocytes/100 WBC (Bld) 0.2 % Normal [facility] Comment on above: Order Comment: Speci men Type: BLOOD SPECIMENOrdering Facility: [facility] Address: [address] [place] [address] Performed By: #### 5 7021-8 ####[facility] [id number] [place] [address] [place] Lymphocytes (Bld) [#/Vol] 0.70 10*3/uL Low 1.00-4.00 [facility] Comment on above: Order Comment: Speci men Type: BLOOD SPECIMENOrdering Facility: [facility] Address: [address] [place] [address] Performed By: #### 5 7021-8 ####[facility] RENEJOHNATHON [id number] [place] [address] [place] Lymphocytes/100 WBC (Bld) 17.2 % Normal [facility] Comment on above: Order Comment: Speci men Type: BLOOD SPECIMENOrdering Facility: [facility] Address: [address] [place] [address] Performed By: #### 5 7021-8 ####[facility]IR[facility] [id number] [place] [address] [place] MCH (RBC) [Entitic mass] 33.2 pg Normal 26.0-34.0 [facility] Comment on above: Order Comment: Speci men Type: BLOOD SPECIMENOrdering Facility: [facility] Address: [address] [place] [address] Performed By: #### 5 7021-8 ####[facility] [id number] [place] [address] [place] MCHC (RBC) [Mass/Vol] 34.1 g/dL Normal 30.5-36.0 [facility] Comment on above: Order Comment: Speci men Type: BLOOD SPECIMENOrdering Facility: [facility] Address: [address] [place] [address] Performed By: #### 5 7021-8 ####[facility]OPKANCLI [id number] [place] [address] [place] MCV (RBC) [Entitic vol] 97.4 fL Normal 80.0-100.0 C [facility] Comment on above: Order Comment: Speci men Type: BLOOD SPECIMENOrdering Facility: [facility] Address: [address] [place] [address] Performed By: #### 5 7021-8 ####[facility] MILLWNCLIA [id number] [place] [address] [place] Monocytes (Bld) [#/Vol] 0.47 10*3/uL Normal <0.87 [facility] Comment on above: Order Comment: Speci men Type: BLOOD SPECIMENOrdering Facility: [facility] Address: [address] [place] [address] Performed By: #### 5 7021-8 ####[facility]OSPITALLIA [id number] [place] [address] [place] Monocytes/100 WBC (Bld) 11.5 % Normal [facility] Comment on above: Order Comment: Speci men Type: BLOOD SPECIMENOrdering Facility: [facility] Address: [address] [place] [address] Performed By: #### 5 7021-8 ####[facility] HOSPITALLIA [id number] [place] [address] [place] Neutrophils (Bld) [#/Vol] 2.77 10*3/uL Normal 1.45-7.50 [facility] Comment on above: Order Comment: Speci men Type: BLOOD SPECIMENOrdering Facility: [facility] Address: [address] [place] [address] Performed By: #### 5 7021-8 ####[facility] HE[facility] SERVICESWNCLIA [id number] [place] [address] [place] Neutrophils/100 WBC (Bld) 68.0 % Normal [facility] Comment on above: Order Comment: Speci men Type: BLOOD SPECIMENOrdering Facility: [facility] Address: [address] [place] [address] Performed By: #### 5 7021-8 ####[facility]OSPITALLIA [id number] [place] [address] [place] Nucleated RBC (Bld) [#/Vol] 10*3/uL Normal <0.01 [facility] Comment on above: Order Comment: Speci men Type: BLOOD SPECIMENOrdering Facility: [facility] Address: [address] [place] [address] Performed By: #### 5 7021-8 ####[facility] [id number] [place] [address] [place] Nucleated RBC/100 WBC (Bld) [Ratio] 0.0 /100 WBC Normal [facility] Comment on above: Order Comment: Speci men Type: BLOOD SPECIMENOrdering Facility: [facility] Address: [address] [place] [address] Performed By: #### 5 7021-8 ####[facility] [id number] [place] [address] [place] Platelet mean volume (Bld) [Entitic vol] 10.0 fL Normal 9.0-12.7 [facility] Comment on above: Order Comment: Speci men Type: BLOOD SPECIMENOrdering Facility: [facility] Address: [address] [place] [address] Performed By: #### 5 7021-8 ####[facility] [id number] [place] [address] [place] Platelets (Bld) [#/Vol] 72 10*3/uL Low 150-400 C [facility] Comment on above: Order Comment: Speci men Type: BLOOD SPECIMENOrdering Facility: [facility] Address: [address] [place] [address] Result Comment: No c lot detected. Performed By: #### 5 7021-8 ####[facility] [id number] [place] [address] [place] RBC (Bld) [#/Vol] 2.71 10*6/uL Low 3.90-5.20 [facility] Comment on above: Order Comment: Speci men Type: BLOOD SPECIMENOrdering Facility: [facility] Address: [address] [place] [address] Performed By: #### 5 7021-8 ####[facility] RENEWNCLIA [id number] [place] [address] [place] WBC (Bld) [#/Vol] 4.08 10*3/uL Normal 3.70-11.00 [facility] Comment on above: Order Comment: Speci men Type: BLOOD SPECIMENOrdering Facility: [facility] Address: [address] [place] [address] Performed By: #### 5 7021-8 ####[facility]CL[facility] [id number] [place] [address] [place] CNOVSPon 04-14-2024 CNOVSP Normal [facility] CNPNon 04-14-2024 CNPN Normal [facility] Comprehensive metabolic 2000 panelOrdered By: Zoila Rodriguez on 04-14-2024 Albumin [Mass/Vol] 4 g/dL 3.9 - 4.9 g/dL [facility] ALP [Catalytic activity/Vol] 72 U/L 34 - 123 U/L [facility] ALT [Catalytic activity/Vol] 9 U/L 7 - 38 U/L [facility] Anion gap [Moles/Vol] 8 mmol/L 8 - 15 mmol/L [facility] AST [Catalytic activity/Vol] 10 U/L Low 13 - 35 U/L [facility] Bilirubin [Mass/Vol] 0.3 mg/dL 0.2 - 1 .3 mg/dL [facility] Calcium [Mass/Vol] 9.4 mg/dL 8.5 - 10. 2 mg/dL [facility] Chloride [Moles/Vol] 98 mmol/L 98 - 10 7 mmol/L [facility] CO2 [Moles/Vol] 30 mmol/L 22 - 30 mmol/L [facility] Creatinine [Mass/Vol] 0.97 mg/dL High 0.58 - 0.96 mg/dL [facility] GFR/1.73 sq M.predicted among non-blacks MDRD (S/P/Bld) [Vol rate/Area] 60 mL/min/{1.73_m2} - PINF [facility] Comment on above: Estimated Glomerular Filtration Rate (eGFR) is calculated using the 2020 CKD-EPI creatinine equation. This equation utilizes serum creatinine, sex, and age as parameters. The creatinine assay has traceable calibration to isotope dilution-mass spectrometry. Refer to KDIGO guidelines for clinical interpretation. In patients with unstable renal function, e.g. those with acute kidney injury, the eGFR may not accurately reflect actual GFR. Glucose [Mass/Vol] 144 mg/dL High 74 - 99 mg/dL [facility] Comment on above: The [place] Diabete [employer] Association (ADA) provides guidance for cutoff values for fasting glucose and random glucose. The ADA defines fasting as no caloric intake for at least 8 hours. Fasting plasma glucose results between 100 to 125 mg/dL indicate increased risk for diabetes (prediabetes). Fasting plasma glucose results greater than or equal to 126 mg/dL meet the criteria for diagnosis of diabetes. In the absence of unequivocal hyperglycemia, results should be confirmed by repeat testing. In a patient with classic symptoms of hyperglycemia or hyperglycemic crisis, random plasma glucose results greater than or equal to 200 mg/dL meet the criteria for diagnosis of diabetes. Reference: Standards of Medical Care in Diabetes 2016, [place] Diabetes Association. Diabetes Care. 2016.39(Suppl 1). Potassium [Moles/Vol] 4.2 mmol/L 3.7 - 5.1 mmol/L [facility] Protein [Mass/Vol] 7 g/dL 6.3 - 8.0 g/dL [facility] Sodium [Moles/Vol] 136 mmol/L 136 - 144 mmol/L [facility] Urea nitrogen [Mass/Vol] 21 mg/dL 7 - 21 mg/dL [facility] Comprehensive metabolic 2000 panelon 04-14-2024 Albumin [Mass/Vol] 4.0 g/dL Normal 3.9-4.9 [facility] Comment on above: Order Comment: Speci men Type: BLOOD SPECIMENOrdering Facility: [facility] Address: [address] [address] [address] [facility]ITAL[facility] [place] [id number] Performed By: #### 2 4323-8, 25516-4 ####[facility] DENNIS LÓPEZBELLONADAQUAN [id number] [place] [address] [place] ALP [Catalytic activity/Vol] 72 U/L Normal 34-123 [facility] Comment on above: Order Comment: Speci men Type: BLOOD SPECIMENOrdering Facility: [facility] Address: [address] [place] [address] Performed By: #### 2 4323-8, 54078-0 ####[facility] MILLTOWANAMLIA [id number] [place] [address] [place] ALT [Catalytic activity/Vol] 9 U/L Normal 7-38 [facility] Comment on above: Order Comment: Speci men Type: BLOOD SPECIMENOrdering Facility: [facility] Address: [address] [place] [address] Performed By: #### 2 4323-8, 10399-7 ####[facility]IOR[facility] HE[facility] SERVICESJOHNATHON [id number] [place] [address] [place] Anion gap [Moles/Vol] 8 mmol/L Normal 8-15 [facility] Comment on above: Order Comment: Speci men Type: BLOOD SPECIMENOrdering Facility: [facility] Address: [address] [place] [address] Performed By: #### 2 4323-8, 49652-3 ####[facility] MILLCONNORWGABBIEA [id number] [place] [address] [place] AST [Catalytic activity/Vol] 10 U/L Low 13-35 [facility] Comment on above: Order Comment: Speci men Type: BLOOD SPECIMENOrdering Facility: [facility] Address: [address] [place] [address] Performed By: #### 2 4323-8, 40665-6 ####[facility]ENTERGRZEGORZLIA [id number] [place] [address] [place] Bilirubin [Mass/Vol] 0.3 mg/dL Normal 0.2-1.3 [facility] Comment on above: Order Comment: Speci men Type: BLOOD SPECIMENOrdering Facility: [facility] Address: [address] [place] [address] Performed By: #### 2 4323-8, ####[facility]IOR[facility] HEALTH SERVICESWANAMLIA [id number] [place] [address] [place] Calcium [Mass/Vol] 9.4 mg/dL Normal 8.5-10.2 [facility] Comment on above: Order Comment: Speci men Type: BLOOD SPECIMENOrdering Facility: [facility] Address: [address] [place] [address] Performed By: #### 2 4323-8, ####[facility] EMERGENCYA [id number] [place] [address] [place] Chloride [Moles/Vol] 98 mmol/L Normal 98-107 [facility] Comment on above: Order Comment: Speci men Type: BLOOD SPECIMENOrdering Facility: [facility] Address: [address] [place] [address] Performed By: #### 2 4323-8, ####[facility] HOSPITALLIA [id number] [place] [address] [place] CO2 [Moles/Vol] 30 mmol/L Normal 22-30 [facility] Comment on above: Order Comment: Speci men Type: BLOOD SPECIMENOrdering Facility: [facility] Address: [address] [place] [address] Performed By: #### 2 4323-8, ####[facility] HOSPITALLIA [id number] [place] [address] [place] Creatinine [Mass/Vol] 0.97 mg/dL High 0.58-0.96 [facility] Comment on above: Order Comment: Speci men Type: BLOOD SPECIMENOrdering Facility: [facility] Address: [address] [place], [place] [address] Performed By: #### 2 4323-8, 59591-0 ####[facility]ANCLIA [id number] [place] [address] [place] Creatinine and Glomerular filtration rate.predicted panel (S/P/Bld) 60 mL/min/1.73m??? Normal >=60 [facility] Comment on above: Order Comment: Guera doll Type: BLOOD SPECIMENOrdering Facility: [facility] Address: [address] [place] [address] Result Comment: Judith mated Glomerular Filtration Rate (eGFR) is calculated using the 2020 CKD-EPI creatinine equation. This equation utilizes serum creatinine, sex, and age as parameters. The creatinine assay has traceable calibration to isotope dilution-mass spectrometry. Refer to KDIGO guidelines for clinical interpretation. In patients with unstable renal function, e.g. those with acute kidney injury, the eGFR may not accurately reflect actual GFR. Performed By: #### 2 4323-8, 33230-7 ####[facility] HOSPITALLIA [id number] [place] [address] [place] Glucose [Mass/Vol] 144 mg/dL High 74-99 [facility] Comment on above: Order Comment: Guera doll Type: BLOOD SPECIMENOrdering Facility: [facility] Address: [address] [place] [address] Result Comment: The [place] Diabetes Association (ADA) provides guidance for cutoff values for fasting glucose and random glucose. The ADA defines fasting as no caloric intake for at least 8 hours. Fasting plasma glucose results between 100 to 125 mg/dL indicate increased risk for diabetes (prediabetes).Fasting plasma glucose results greater than or equal to 126 mg/dL meet the criteria for diagnosis of diabetes. In the absence of unequivocal hyperglycemia, results should be confirmed by repeat testing. In a patient with classic symptoms of hyperglycemia or hyperglycemic crisis, random plasma glucose results greater than or equal to 200 mg/dL meet the criteria for diagnosis of diabetes.Reference: Standards of Medical Care in Diabetes 2016, [place] [employer]. Diabetes Care. 2016.39(Suppl 1). Performed By: #### 2 4323-8, 14585-8 ####[facility] RENEYAMILET [id number] [place] [address] [place] Potassium [Moles/Vol] 4.2 mmol/L Normal 3.7-5.1 [facility] Comment on above: Order Comment: Speci men Type: BLOOD SPECIMENOrdering Facility: [facility] Address: [address] [place] [address] Performed By: #### 2 4323-8, 43827-7 ####[facility] RENEJOHNATHON [id number] [place] [address] [place] Protein [Mass/Vol] 7.0 g/dL Normal 6.3-8.0 [facility] Comment on above: Order Comment: Speci men Type: BLOOD SPECIMENOrdering Facility: [facility] Address: [address] [place] [address] Performed By: #### 2 4323-8, 11555-7 ####[facility]OPKAGABBIEA [id number] [place] [address] [place] Sodium [Moles/Vol] 136 mmol/L Normal 136-144 [facility] Comment on above: Order Comment: Speci men Type: BLOOD SPECIMENOrdering Facility: [facility] Address: [address] [place] [address] Performed By: #### 2 4323-8, ####[facility] APOPKADAQUAN [id number] [place] [address] [place] Urea nitrogen [Mass/Vol] 21 mg/dL Normal 7-21 [facility] Comment on above: Order Comment: Speci men Type: BLOOD SPECIMENOrdering Facility: [facility] Address: [address] [place] [address] Performed By: #### 2 4323-8, 84301-3 ####[facility]IOR[facility] HE[facility] SERVICESWNCLIA [id number] [place] [address] [place] MAGNESIUMon 04-14-2024 Magnesium [Mass/Vol] 1.5 mg/dL Low 1.7 - 2 .3 mg/dL [facility] Magnesium SerPl-mCncon 04-14 Magnesium [Mass/Vol] 1.5 mg/dL Low 1.7-2.3 [facility] Comment on above: Order Comment: Speci men Type: BLOOD SPECIMENOrdering Facility: [facility] Address: [address] [place] [address] Performed By: #### 2 4323-8, 89752-8 ####[facility]ANCA [id number] [place] [address] [place] No Panel InformationOrdered By: Zoila Rodriguez on 04-14-2024 Interpretation and review of laboratory results Abnormal [facility] REFERRAL FOR ADDITIONAL BIOM ARKER AND MOLECULAR TESTINGOrdered By: Kvng Winslow on 04-14-2024 APMOLR [facility] Comment on above: Request has been rec eived for evaluation and the results will be issued separately. [facility] REFERRAL FOR ADDITIONAL BIOM ARKER AND MOLECULAR TESTINGon 04-14-2024 REFERRAL FOR ADDITIONAL BIOMARKER AND MOLECULAR TESTING Normal [facility] Comment on above: Order Comment: Speci men Type: TISSUE SPECIMENOrdering Facility: [facility] Address: [address] [place] [address] Result Comment: Requ est has been received for evaluation and the results will be issued separately. Performed By: #### A PMOL ####[facility] [id number] [place] [address] [place] CT ABD/PEL W IVCONon 025 CT ABD/PEL W IVCON Normal [facility] CT CHEST W IVCONon 5 CT CHEST W IVCON Normal [facility] CNPNon 04-03-2024 CNPN Normal [facility] CBC W Auto Differential pane l (Bld)on 03-23-2024 Basophils (Bld) [#/Vol] 0.03 10*3/uL [facility] Basophils/100 WBC (Bld) 0.6 % C [facility] Differential cell count method Nom (Bld) Auto [facility] Eosinophils (Bld) [#/Vol] 0.25 10*3/uL [facility] Eosinophils/100 WBC (Bld) 5.2 % [facility] Erythrocyte distribution width (RBC) [Ratio] 14.5 % 11.5 - 15.0 % [facility] Hematocrit (Bld) [Volume fraction] 28.8 % Low 36.0 - 46.0 % [facility] Hemoglobin (Bld) [Mass/Vol] 9.3 g/dL Low 11.5 - 15.5 g/dL [facility] Immature granulocytes (Bld) [#/Vol] [facility] Immature granulocytes/100 WBC (Bld) 0.2 % [facility] Interpretation and review of laboratory results Abnormal [facility] Lymphocytes (Bld) [#/Vol] 0.55 10*3/uL Low [facility] Lymphocytes/100 WBC (Bld) 11.5 % [facility] MCH (RBC) [Entitic mass] 32.7 pg 26.0 - 34.0 pg [facility] MCHC (RBC) [Mass/Vol] 32.3 g/dL 30.5 - 36.0 g/dL [facility] MCV (RBC) [Entitic vol] 101.4 fL High 80.0 - 100.0 fL [facility] Monocytes (Bld) [#/Vol] 0.54 10*3/uL [facility] Monocytes/100 WBC (Bld) 11.3 % C [facility] Neutrophils (Bld) [#/Vol] 3.41 10*3/uL [facility] Neutrophils/100 WBC (Bld) 71.2 % [facility] Nucleated RBC (Bld) [#/Vol] [facility] Nucleated RBC/100 WBC (Bld) [Ratio] 0.0 % /100 WBC [facility] Platelet mean volume (Bld) [Entitic vol] 10.0 fL 9.0 - 12.7 fL [facility] Platelets (Bld) [#/Vol] 110 10*3/uL Low [facility] RBC (Bld) [#/Vol] 2.84 10*6/uL Low 3.90 - 5.2 0 m/uL [facility] WBC (Bld) [#/Vol] 4.79 10*3/uL [facility] Basophils (Bld) [#/Vol] 0.03 10*3/uL Normal <0.11 [facility] Comment on above: Order Comment: Speci men Type: BLOOD SPECIMENOrdering Facility: [facility] Address: [address] [place] [address] Performed By: #### 5 7021-8 ####[facility] MILLWKYLIA [id number] [place] [address] [place] Basophils/100 WBC (Bld) 0.6 % Normal C [facility] Comment on above: Order Comment: Speci men Type: BLOOD SPECIMENOrdering Facility: [facility] Address: [address] [place] [address] Performed By: #### 5 7021-8 ####[facility] HOSPITALLIA [id number] [place] [address] [place] Differential cell count method Nom (Bld) Auto Normal [facility] Comment on above: Order Comment: Speci men Type: BLOOD SPECIMENOrdering Facility: [facility] Address: [address] [place] [address] Performed By: #### 5 7021-8 ####[facility] MILLWNCLIA [id number] [place] [address] [place] Eosinophils (Bld) [#/Vol] 0.25 10*3/uL Normal <0.46 [facility] Comment on above: Order Comment: Speci men Type: BLOOD SPECIMENOrdering Facility: [facility] Address: [address] [place] [address] Performed By: #### 5 7021-8 ####[facility]CL[facility] [id number] [place] [address] [place] Eosinophils/100 WBC (Bld) 5.2 % Normal [facility] Comment on above: Order Comment: Speci men Type: BLOOD SPECIMENOrdering Facility: [facility] Address: [address] [place] [address] Performed By: #### 5 7021-8 ####[facility]OPKANCA [id number] [place] [address] [place] Erythrocyte distribution width (RBC) [Ratio] 14.5 % Normal 11.5-15.0 [facility] Comment on above: Order Comment: Speci men Type: BLOOD SPECIMENOrdering Facility: [facility] Address: [address] [place] [address] Performed By: #### 5 7021-8 ####[facility] [id number] [place] [address] [place] Hematocrit (Bld) [Volume fraction] 28.8 % Low 36.0-46.0 [facility] Comment on above: Order Comment: Speci men Type: BLOOD SPECIMENOrdering Facility: [facility] Address: [address] [place] [address] Performed By: #### 5 7021-8 ####[facility]OPKANCLI [id number] [place] [address] [place] Hemoglobin (Bld) [Mass/Vol] 9.3 g/dL Low 11.5-15.5 [facility] Comment on above: Order Comment: Speci men Type: BLOOD SPECIMENOrdering Facility: [facility] Address: [address] [place] [address] Performed By: #### 5 7021-8 ####[facility]CL[facility] [id number] [place] [address] [place] Immature granulocytes (Bld) [#/Vol] 10*3/uL Normal <0.10 [facility] Comment on above: Order Comment: Speci men Type: BLOOD SPECIMENOrdering Facility: [facility] Address: [address] [place] [address] Performed By: #### 5 7021-8 ####[facility]OPKADAQU[facility] [id number] [address] [place] [facility] Immature granulocytes/100 WBC (Bld) 0.2 % Normal [facility] Comment on above: Order Comment: Speci men Type: BLOOD SPECIMENOrdering Facility: [facility] Address: [address] [place] [address] Performed By: #### 5 7021-8 ####[facility] [id number] [place] [address] [place] Lymphocytes (Bld) [#/Vol] 0.55 10*3/uL Low 1.00-4.00 [facility] Comment on above: Order Comment: Speci men Type: BLOOD SPECIMENOrdering Facility: [facility] Address: [address] [place] [address] Performed By: #### 5 7021-8 ####[facility] [id number] [address] STATES [facility] Lymphocytes/100 WBC (Bld) 11.5 % Normal [facility] Comment on above: Order Comment: Speci men Type: BLOOD SPECIMENOrdering Facility: [facility] Address: [address] [place] [address] Performed By: #### 5 7021-8 ####[facility] [id number] [place] [address] [place] MCH (RBC) [Entitic mass] 32.7 pg Normal 26.0-34.0 [facility] Comment on above: Order Comment: Speci men Type: BLOOD SPECIMENOrdering Facility: [facility] Address: [address] [place] [address] Performed By: #### 5 7021-8 ####[facility]CL[facility] [id number] [place] [address] [place] MCHC (RBC) [Mass/Vol] 32.3 g/dL Normal 30.5-36.0 [facility] Comment on above: Order Comment: Speci men Type: BLOOD SPECIMENOrdering Facility: [facility] Address: [address] [place] [address] Performed By: #### 5 7021-8 ####[facility] [id number] [place] [address] [place] MCV (RBC) [Entitic vol] 101.4 fL High 80.0-100.0 C [facility] Comment on above: Order Comment: Speci men Type: BLOOD SPECIMENOrdering Facility: [facility] Address: [address] [place] [address] Performed By: #### 5 7021-8 ####[facility] [id number] [place] [address] [place] Monocytes (Bld) [#/Vol] 0.54 10*3/uL Normal <0.87 [facility] Comment on above: Order Comment: Speci men Type: BLOOD SPECIMENOrdering Facility: [facility] Address: [address] [place] [address] Performed By: #### 5 7021-8 ####[facility] [id number] [place] [address] [place] Monocytes/100 WBC (Bld) 11.3 % Normal C [facility] Comment on above: Order Comment: Speci men Type: BLOOD SPECIMENOrdering Facility: [facility] Address: [address] [place] [address] Performed By: #### 5 7021-8 ####[facility]CL[facility] [id number] [place] [address] [place] Neutrophils (Bld) [#/Vol] 3.41 10*3/uL Normal 1.45-7.50 [facility] Comment on above: Order Comment: Speci men Type: BLOOD SPECIMENOrdering Facility: [facility] Address: [address] [place] [address] Performed By: #### 5 7021-8 ####[facility]PITALLIA [id number] [place] [address] [place] Neutrophils/100 WBC (Bld) 71.2 % Normal [facility] Comment on above: Order Comment: Speci men Type: BLOOD SPECIMENOrdering Facility: [facility] Address: [address] [place] [address] Performed By: #### 5 7021-8 ####[facility] [id number] [place] [address] [place] Nucleated RBC (Bld) [#/Vol] 10*3/uL Normal <0.01 [facility] Comment on above: Order Comment: Speci men Type: BLOOD SPECIMENOrdering Facility: [facility] Address: [address] [place] [address] Performed By: #### 5 7021-8 ####[facility] [id number] [place] [address] [place] Nucleated RBC/100 WBC (Bld) [Ratio] 0.0 /100 WBC Normal [facility] Comment on above: Order Comment: Speci men Type: BLOOD SPECIMENOrdering Facility: [facility] Address: [address] [place] [address] Performed By: #### 5 7021-8 ####[facility] [id number] [place] [address] [place] Platelet mean volume (Bld) [Entitic vol] 10.0 fL Normal 9.0-12.7 [facility] Comment on above: Order Comment: Speci men Type: BLOOD SPECIMENOrdering Facility: [facility] Address: [address] [place] [address] Performed By: #### 5 7021-8 ####[facility] VINCENCLIA [id number] [place] [address] [place] Platelets (Bld) [#/Vol] 110 10*3/uL Low 150-400 [facility] Comment on above: Order Comment: Speci men Type: BLOOD SPECIMENOrdering Facility: [facility] Address: [address] [place] [address] Performed By: #### 5 7021-8 ####[facility] RENEBELLONANCLIA [id number] [place] [address] [place] RBC (Bld) [#/Vol] 2.84 10*6/uL Low 3.90-5.20 [facility] Comment on above: Order Comment: Speci men Type: BLOOD SPECIMENOrdering Facility: [facility] Address: [address] [place] [address] Performed By: #### 5 7021-8 ####[facility] RENEBELLONANCLIA [id number] [place] [address] [place] WBC (Bld) [#/Vol] 4.79 10*3/uL Normal 3.70-11.00 [facility] Comment on above: Order Comment: Speci men Type: BLOOD SPECIMENOrdering Facility: [facility] Address: [address] [place] [address] Performed By: #### 5 7021-8 ####[facility]KANCL[facility] [id number] [place] [address] [place] Comprehensive metabolic 2000 panelOrdered By: Tatyana Frost on 03-23-2024 Albumin [Mass/Vol] 4.1 g/dL 3.9 - 4.9 g/dL [facility] ALP [Catalytic activity/Vol] 67 U/L 34 - 123 U/L [facility] ALT [Catalytic activity/Vol] 9 U/L 7 - 38 U/L [facility] Anion gap [Moles/Vol] 8 mmol/L 8 - 15 mmol/L [facility] AST [Catalytic activity/Vol] 10 U/L Low 13 - 35 U/L [facility] Bilirubin [Mass/Vol] 0.3 mg/dL 0.2 - 1 .3 mg/dL [facility] Calcium [Mass/Vol] 9.3 mg/dL 8.5 - 10. 2 mg/dL [facility] Chloride [Moles/Vol] 101 mmol/L 98 - 10 7 mmol/L [facility] CO2 [Moles/Vol] 29 mmol/L 22 - 30 mmol/L [facility] Creatinine [Mass/Vol] 1.10 mg/dL High 0.58 - 0.96 mg/dL [facility] GFR/1.73 sq M.predicted among non-blacks MDRD (S/P/Bld) [Vol rate/Area] 52 mL/min/{1.73_m2} Low - PINF [facility] Comment on above: Estimated Glomerular Filtration Rate (eGFR) is calculated using the 2020 CKD-EPI creatinine equation. This equation utilizes serum creatinine, sex, and age as parameters. The creatinine assay has traceable calibration to isotope dilution-mass spectrometry. Refer to KDIGO guidelines for clinical interpretation. In patients with unstable renal function, e.g. those with acute kidney injury, the eGFR may not accurately reflect actual GFR. Glucose [Mass/Vol] 158 mg/dL High 74 - 99 mg/dL [facility] Comment on above: The [place] Diab[employer] [place] Association (ADA) provides guidance for cutoff values for fasting glucose and random glucose. The ADA defines fasting as no caloric intake for at least 8 hours. Fasting plasma glucose results between 100 to 125 mg/dL indicate increased risk for diabetes (prediabetes). Fasting plasma glucose results greater than or equal to 126 mg/dL meet the criteria for diagnosis of diabetes. In the absence of unequivocal hyperglycemia, results should be confirmed by repeat testing. In a patient with classic symptoms of hyperglycemia or hyperglycemic crisis, random plasma glucose results greater than or equal to 200 mg/dL meet the criteria for diagnosis of diabetes. Reference: Standards of Medical Care in Diabetes 2016, [place] [employer]. Diabetes Care. 2016.39(Suppl 1). Potassium [Moles/Vol] 4.8 mmol/L 3.7 - 5.1 mmol/L [facility] Protein [Mass/Vol] 6.7 g/dL 6.3 - 8.0 g/dL [facility] Sodium [Moles/Vol] 138 mmol/L 136 - 144 mmol/L [facility] Urea nitrogen [Mass/Vol] 22 mg/dL High 7 - 21 mg/dL [facility] metabolic 2000 panelon 03-23-2024 Albumin [Mass/Vol] 4.1 g/dL Normal 3.9-4.9 [facility] Comment on above: Order Comment: Speci men Type: BLOOD SPECIMENOrdering Facility: [facility] Address: [address] [place] [address] Performed By: #### 2 4323-8, ####[facility] [id number] [place] [address] [place] ALP [Catalytic activity/Vol] 67 U/L Normal 34-123 [facility] Comment on above: Order Comment: Speci men Type: BLOOD SPECIMENOrdering Facility: [facility] Address: [address] [place] [address] Performed By: #### 2 4323-8, ####[facility] [id number] [place] [address] [place] ALT [Catalytic activity/Vol] 9 U/L Normal 7-38 [facility] Comment on above: Order Comment: Speci men Type: BLOOD SPECIMENOrdering Facility: [facility] Address: [address] [place] [address] Performed By: #### 2 4323-8, ####[facility] [id number] [place] [address] [place] Anion gap [Moles/Vol] 8 mmol/L Normal 8-15 [facility] Comment on above: Order Comment: Speci men Type: BLOOD SPECIMENOrdering Facility: [facility] Address: [address] [place], [place] [id number] Performed By: #### 2 4323-8, ####[facility] FANNYA [id number] [place] [address] [place] AST [Catalytic activity/Vol] 10 U/L Low 13-35 [facility] Comment on above: Order Comment: Speci men Type: BLOOD SPECIMENOrdering Facility: [facility] Address: [facility] [place] [id number] Performed By: #### 2 4323-8, ####[facility] RENEBELLONAANAMLIA [id number] [place] [address] [place] Bilirubin [Mass/Vol] 0.3 mg/dL Normal 0.2-1.3 [facility] Comment on above: Order Comment: Speci men Type: BLOOD SPECIMENOrdering Facility: [facility] Address: [facility] [place] [id number] Performed By: #### 2 4323-8, ####[facility] RENEBELLONAGABBIEA [id number] [place] [address] [place] Calcium [Mass/Vol] 9.3 mg/dL Normal 8.5-10.2 [facility] Comment on above: Order Comment: Speci men Type: BLOOD SPECIMENOrdering Facility: [facility] Address: [facility] [place] [address] Performed By: #### 2 4323-8, ####[facility] [id number] [place] [address] [place] Chloride [Moles/Vol] 101 mmol/L Normal 98-107 [facility] Comment on above: Order Comment: Speci men Type: BLOOD SPECIMENOrdering Facility: [facility] Address: [facility] [place] [id number] Performed By: #### 2 4323-8, ####[facility] [id number] [place] [address] [place] CO2 [Moles/Vol] 29 mmol/L Normal 22-30 [facility] Comment on above: Order Comment: Speci men Type: BLOOD SPECIMENOrdering Facility: [facility] Address: [address] [place] [address] Performed By: #### 2 4323-8, ####[facility] [id number] [place] [address] [place] Creatinine [Mass/Vol] 1.10 mg/dL High 0.58-0.96 [facility] Comment on above: Order Comment: Speci men Type: BLOOD SPECIMENOrdering Facility: [facility] Address: [address] [place] [address] Performed By: #### 2 43238, ####[facility] [id number] [place] [address] [place] Creatinine and Glomerular filtration rate.predicted panel (S/P/Bld) 52 mL/min/1.73m??? Low >=60 [facility] Comment on above: Order Comment: Speci men Type: BLOOD SPECIMENOrdering Facility: [facility] Address: [address] [place] [address] Result Comment: Judith mated Glomerular Filtration Rate (eGFR) is calculated using the 2020 CKD-EPI creatinine equation. This equation utilizes serum creatinine, sex, and age as parameters. The creatinine assay has traceable calibration to isotope dilution-mass spectrometry. Refer to KDIGO guidelines for clinical interpretation. In patients with unstable renal function, e.g. those with acute kidney injury, the eGFR may not accurately reflect actual GFR. Performed By: #### 2 4323-8, ####[facility] [id number] [place] [address] [place] Glucose [Mass/Vol] 158 mg/dL High 74-99 [facility] Comment on above: Order Comment: Speci men Type: BLOOD SPECIMENOrdering Facility: [facility] Address: [address] [place] [address] Result Comment: The [place] Diabetes Association (ADA) provides guidance for cutoff values for fasting glucose and random glucose. The ADA defines fasting as no caloric intake for at least 8 hours. Fasting plasma glucose results between 100 to 125 mg/dL indicate increased risk for diabetes (prediabetes).Fasting plasma glucose results greater than or equal to 126 mg/dL meet the criteria for diagnosis of diabetes. In the absence of unequivocal hyperglycemia, results should be confirmed by repeat testing. In a patient with classic symptoms of hyperglycemia or hyperglycemic crisis, random plasma glucose results greater than or equal to 200 mg/dL meet the criteria for diagnosis of diabetes.Reference: Standards of Medical Care in Diabetes 2016, [place] [employer]. Diabetes Care. 2016.39(Suppl 1). Performed By: #### 2 4323-8, ####[facility] [employer] SoftwareWANAMLIAmalia [id number] [place] [address] [place] Potassium [Moles/Vol] 4.8 mmol/L Normal 3.7-5.1 [facility] Comment on above: Order Comment: Guera doll Type: BLOOD SPECIMENOrdering Facility: [facility] Address: [address] [place] [address] Performed By: #### 2 4323-8, ####[facility] SERVICESWANAMLIAmalia [id number] [place] [address] [place] Protein [Mass/Vol] 6.7 g/dL Normal 6.3-8.0 [facility] Comment on above: Order Comment: Speci men Type: BLOOD SPECIMENOrdering Facility: [facility] Address: [address] [place], [place] [id number] Performed By: #### 2 4323-8, ####[facility] MILLWANAMLIAmalia [id number] [place] [address] [place] Sodium [Moles/Vol] 138 mmol/L Normal 136-144 [facility] Comment on above: Order Comment: Speci men Type: BLOOD SPECIMENOrdering Facility: [facility] Address: [address] [place] [address] Performed By: #### 2 4323-8, ####[facility] [id number] [place] [address] [place] Urea nitrogen [Mass/Vol] 22 mg/dL High 7-21 [facility] Comment on above: Order Comment: Speci men Type: BLOOD SPECIMENOrdering Facility: [facility] Address: [address] [place] [address] Performed By: #### 2 4323-8, ####[facility] [id number] [place] [address] [place] MAGNESIUMon 03-23-2024 Magnesium [Mass/Vol] 1.3 mg/dL Low 1.7 - 2 .3 mg/dL [facility] Magnesium SerPl-mCncon 03-23 Magnesium [Mass/Vol] 1.3 mg/dL Low 1.7-2.3 [facility] Comment on above: Order Comment: Speci men Type: BLOOD SPECIMENOrdering Facility: [facility] Address: [address] [place] [address] Performed By: #### 2 4323-8, ####[facility]IT[facility] [id number] [place] [address] [place] No Panel InformationOrdered By: Tatyana Frost on 03-23-2024 Interpretation and review of laboratory results Abnormal [facility] CBC W Auto Differential pane l (Bld)on 03-15-2024 Basophils (Bld) [#/Vol] NINF C [facility] Basophils/100 WBC (Bld) 0.3 % C [facility] Differential cell count method Nom (Bld) Auto [facility] Eosinophils (Bld) [#/Vol] 0.27 10*3/uL [facility] Eosinophils/100 WBC (Bld) 4.7 % [facility] Erythrocyte distribution width (RBC) [Ratio] 15.7 % High 11.5 - 15.0 % [facility] Hematocrit (Bld) [Volume fraction] 26.8 % Low 36.0 - 46.0 % [facility] Hemoglobin (Bld) [Mass/Vol] 8.7 g/dL Low 11.5 - 15.5 g/dL [facility] Immature granulocytes (Bld) [#/Vol] [facility] Immature granulocytes/100 WBC (Bld) 0.3 % [facility] Interpretation and review of laboratory results Abnormal [facility] Lymphocytes (Bld) [#/Vol] 0.47 10*3/uL Low [facility] Lymphocytes/100 WBC (Bld) 8.1 % [facility] MCH (RBC) [Entitic mass] 33.6 pg 26.0 - 34.0 pg [facility] MCHC (RBC) [Mass/Vol] 32.5 g/dL 30.5 - 36.0 g/dL [facility] MCV (RBC) [Entitic vol] 103.5 fL High 80.0 - 100.0 fL [facility] Monocytes (Bld) [#/Vol] 0.50 10*3/uL [facility] Monocytes/100 WBC (Bld) 8.6 % C [facility] Neutrophils (Bld) [#/Vol] 4.51 10*3/uL [facility] Neutrophils/100 WBC (Bld) 78.0 % [facility] Nucleated RBC (Bld) [#/Vol] [facility] Nucleated RBC/100 WBC (Bld) [Ratio] 0.0 % /100 WBC [facility] Platelet mean volume (Bld) [Entitic vol] 9.9 fL 9.0 - 12.7 fL [facility] Platelets (Bld) [#/Vol] 145 10*3/uL Low [facility] RBC (Bld) [#/Vol] 2.59 10*6/uL Low 3.90 - 5.2 0 m/uL [facility] WBC (Bld) [#/Vol] 5.79 10*3/uL [facility] Basophils (Bld) [#/Vol] 10*3/uL Normal <0.11 C [facility] Comment on above: Order Comment: Speci men Type: BLOOD SPECIMENOrdering Facility: [facility] Address: [address] [place] [address] Performed By: #### 5 7021-8 ####[facility] MILLWNCLIA [id number] [place] [address] [place] Basophils/100 WBC (Bld) 0.3 % Normal C [facility] Comment on above: Order Comment: Speci men Type: BLOOD SPECIMENOrdering Facility: [facility] Address: [address] [place] [address] Performed By: #### 5 7021-8 ####[facility] HE[facility] SERVICESWNCLIA [id number] [place] [address] [place] Differential cell count method Nom (Bld) Auto Normal [facility] Comment on above: Order Comment: Speci men Type: BLOOD SPECIMENOrdering Facility: [facility] Address: [address] [place] [address] Performed By: #### 5 7021-8 ####[facility] HE[facility] SERVICESWNCLIA [id number] [place] [address] [place] Eosinophils (Bld) [#/Vol] 0.27 10*3/uL Normal <0.46 [facility] Comment on above: Order Comment: Speci men Type: BLOOD SPECIMENOrdering Facility: [facility] Address: [address] [place] [address] Performed By: #### 5 7021-8 ####[facility] MILLWNCLIA [id number] [place] [address] [place] Eosinophils/100 WBC (Bld) 4.7 % Normal [facility] Comment on above: Order Comment: Speci men Type: BLOOD SPECIMENOrdering Facility: [facility] Address: [address] [place] [address] Performed By: #### 5 7021-8 ####[facility] [id number] [place] [address] [place] Erythrocyte distribution width (RBC) [Ratio] 15.7 % High 11.5-15.0 [facility] Comment on above: Order Comment: Speci men Type: BLOOD SPECIMENOrdering Facility: [facility] Address: [address] [place] [address] Performed By: #### 5 7021-8 ####[facility] [id number] [place] [address] [place] Hematocrit (Bld) [Volume fraction] 26.8 % Low 36.0-46.0 [facility] Comment on above: Order Comment: Speci men Type: BLOOD SPECIMENOrdering Facility: [facility] Address: [address] [place] [address] Performed By: #### 5 7021-8 ####[facility] [id number] [place] [address] [place] Hemoglobin (Bld) [Mass/Vol] 8.7 g/dL Low 11.5-15.5 [facility] Comment on above: Order Comment: Speci men Type: BLOOD SPECIMENOrdering Facility: [facility] Address: [address] [place] [address] Performed By: #### 5 7021-8 ####[facility] [id number] [place] [address] [place] Immature granulocytes (Bld) [#/Vol] 10*3/uL Normal <0.10 [facility] Comment on above: Order Comment: Speci men Type: BLOOD SPECIMENOrdering Facility: [facility] Address: [address] [place] [address] Performed By: #### 5 7021-8 ####[facility] [id number] [place] [address] [place] Immature granulocytes/100 WBC (Bld) 0.3 % Normal [facility] Comment on above: Order Comment: Speci men Type: BLOOD SPECIMENOrdering Facility: [facility] Address: [address] [place] [address] Performed By: #### 5 7021-8 ####[facility] [id number] [place] [address] [place] Lymphocytes (Bld) [#/Vol] 0.47 10*3/uL Low 1.00-4.00 [facility] Comment on above: Order Comment: Speci men Type: BLOOD SPECIMENOrdering Facility: [facility] Address: [address] [place] [address] Performed By: #### 5 7021-8 ####[facility] [id number] [place] [address] [place] Lymphocytes/100 WBC (Bld) 8.1 % Normal [facility] Comment on above: Order Comment: Speci men Type: BLOOD SPECIMENOrdering Facility: [facility] Address: [address] [place] [address] Performed By: #### 5 7021-8 ####[facility] [id number] [place] [address] [place] MCH (RBC) [Entitic mass] 33.6 pg Normal 26.0-34.0 [facility] Comment on above: Order Comment: Speci men Type: BLOOD SPECIMENOrdering Facility: [facility] Address: [address] [place] [address] Performed By: #### 5 7021-8 ####[facility] [id number] [place] [address] [place] MCHC (RBC) [Mass/Vol] 32.5 g/dL Normal 30.5-36.0 [facility] Comment on above: Order Comment: Speci men Type: BLOOD SPECIMENOrdering Facility: [facility] Address: [address] [place] [address] Performed By: #### 5 7021-8 ####[facility] RENEJOHNATHON [id number] [place] [address] [place] MCV (RBC) [Entitic vol] 103.5 fL High 80.0-100.0 C [facility] Comment on above: Order Comment: Speci men Type: BLOOD SPECIMENOrdering Facility: [facility] Address: [address] [place] [address] Performed By: #### 5 7021-8 ####[facility] EMERGENCYAmalia [id number] [place] [address] [place] Monocytes (Bld) [#/Vol] 0.50 10*3/uL Normal <0.87 [facility] Comment on above: Order Comment: Speci men Type: BLOOD SPECIMENOrdering Facility: [facility] Address: [address] [place] [address] Performed By: #### 5 7021-8 ####[facility] EMERGENCYAmalia [id number] [place] [address] [place] Monocytes/100 WBC (Bld) 8.6 % Normal C [facility] Comment on above: Order Comment: Speci men Type: BLOOD SPECIMENOrdering Facility: [facility] Address: [address] [place] [address] Performed By: #### 5 7021-8 ####[facility] [id number] [place] [address] [place] Neutrophils (Bld) [#/Vol] 4.51 10*3/uL Normal 1.45-7.50 [facility] Comment on above: Order Comment: Speci men Type: BLOOD SPECIMENOrdering Facility: [facility] Address: [address] [place] [address] Performed By: #### 5 7021-8 ####[facility] HE[facility] SERVICESWNCLIA [id number] [place] [address] [place] Neutrophils/100 WBC (Bld) 78.0 % Normal [facility] Comment on above: Order Comment: Speci men Type: BLOOD SPECIMENOrdering Facility: [facility] Address: [address] [place] [address] Performed By: #### 5 7021-8 ####[facility]IT[facility] [id number] [place] [address] [place] Nucleated RBC (Bld) [#/Vol] 10*3/uL Normal <0.01 [facility] Comment on above: Order Comment: Speci men Type: BLOOD SPECIMENOrdering Facility: [facility] Address: [address] [place] [address] Performed By: #### 5 7021-8 ####[facility] [id number] [place] [address] [place] Nucleated RBC/100 WBC (Bld) [Ratio] 0.0 /100 WBC Normal [facility] Comment on above: Order Comment: Speci men Type: BLOOD SPECIMENOrdering Facility: [facility] Address: [address] [place] [address] Performed By: #### 5 7021-8 ####[facility] [id number] [place] [address] [place] Platelet mean volume (Bld) [Entitic vol] 9.9 fL Normal 9.0-12.7 [facility] Comment on above: Order Comment: Speci men Type: BLOOD SPECIMENOrdering Facility: [facility] Address: [address] [place] [address] Performed By: #### 5 7021-8 ####[facility] [id number] [place] [address] [place] Platelets (Bld) [#/Vol] 145 10*3/uL Low 150-400 [facility] Comment on above: Order Comment: Speci men Type: BLOOD SPECIMENOrdering Facility: [facility] Address: [address] [place] [address] Performed By: #### 5 7021-8 ####[facility] [id number] [place] [address] [place] RBC (Bld) [#/Vol] 2.59 10*6/uL Low 3.90-5.20 [facility] Comment on above: Order Comment: Speci men Type: BLOOD SPECIMENOrdering Facility: [facility] Address: [address] [place] [address] Performed By: #### 5 7021-8 ####[facility] [id number] [place] [address] [place] WBC (Bld) [#/Vol] 5.79 10*3/uL Normal 3.70-11.00 [facility] Comment on above: Order Comment: Speci men Type: BLOOD SPECIMENOrdering Facility: [facility] Address: [address] [place] [address] Performed By: #### 5 7021-8 ####[facility] [id number] [place] [address] [place] CNOVSPon 03-15-2024 CNOVSP Normal [facility] CNPNon 03-15-2024 CNPN Normal [facility] Comprehensive metabolic 2000 panelOrdered By: Tatyana Frost on 03-15-2024 Albumin [Mass/Vol] 3.9 g/dL 3.9 - 4.9 g/dL [facility] ALP [Catalytic activity/Vol] 73 U/L 34 - 123 U/L [facility] ALT [Catalytic activity/Vol] 7 U/L 7 - 38 U/L [facility] Anion gap [Moles/Vol] 8 mmol/L 8 - 15 mmol/L [facility] AST [Catalytic activity/Vol] 9 U/L Low 13 - 35 U/L [facility] Bilirubin [Mass/Vol] 0.3 mg/dL 0.2 - 1 .3 mg/dL [facility] Calcium [Mass/Vol] 9.4 mg/dL 8.5 - 10. 2 mg/dL [facility] Chloride [Moles/Vol] 97 mmol/L Low 98 - 10 7 mmol/L [facility] CO2 [Moles/Vol] 31 mmol/L High 22 - 30 mmol/L [facility] Creatinine [Mass/Vol] 0.94 mg/dL 0.58 - 0.96 mg/dL [facility] GFR/1.73 sq M.predicted among non-blacks MDRD (S/P/Bld) [Vol rate/Area] 62 mL/min/{1.73_m2} - PINF [facility] Comment on above: Estimated Glomerular Filtration Rate (eGFR) is calculated using the 2020 CKD-EPI creatinine equation. This equation utilizes serum creatinine, sex, and age as parameters. The creatinine assay has traceable calibration to isotope dilution-mass spectrometry. Refer to KDIGO guidelines for clinical interpretation. In patients with unstable renal function, e.g. those with acute kidney injury, the eGFR may not accurately reflect actual GFR. Glucose [Mass/Vol] 220 mg/dL High 74 - 99 mg/dL [facility] Comment on above: The [place] Di[employer] Association (ADA) provides guidance for cutoff values for fasting glucose and random glucose. The ADA defines fasting as no caloric intake for at least 8 hours. Fasting plasma glucose results between 100 to 125 mg/dL indicate increased risk for diabetes (prediabetes). Fasting plasma glucose results greater than or equal to 126 mg/dL meet the criteria for diagnosis of diabetes. In the absence of unequivocal hyperglycemia, results should be confirmed by repeat testing. In a patient with classic symptoms of hyperglycemia or hyperglycemic crisis, random plasma glucose results greater than or equal to 200 mg/dL meet the criteria for diagnosis of diabetes. Reference: Standards of Medical Care in Diabetes 2016, [place] [employer]. Diabetes Care. 2016.39(Suppl 1). Potassium [Moles/Vol] 4.8 mmol/L 3.7 - 5.1 mmol/L [facility] Protein [Mass/Vol] 6.8 g/dL 6.3 - 8.0 g/dL [facility] Sodium [Moles/Vol] 136 mmol/L 136 - 144 mmol/L [facility] Urea nitrogen [Mass/Vol] 23 mg/dL High 7 - 21 mg/dL [facility] Comprehensive metabolic 2000 panelon 03-15-2024 Albumin [Mass/Vol] 3.9 g/dL Normal 3.9-4.9 [facility] Comment on above: Order Comment: Speci men Type: BLOOD SPECIMENOrdering Facility: [facility] Address: [address] [place] [address] Performed By: #### 2 4323-8, ####[facility] DENN[facility] MILLTOWNCLIA [id number] [place] [address] [place] ALP [Catalytic activity/Vol] 73 U/L Normal 34-123 [facility] Comment on above: Order Comment: Speci men Type: BLOOD SPECIMENOrdering Facility: [facility] Address: [address] [place] [address] Performed By: #### 2 4323-8, ####[facility] MILLTOWNCLIA [id number] [place] [address] [place] ALT [Catalytic activity/Vol] 7 U/L Normal 7-38 [facility] Comment on above: Order Comment: Speci men Type: BLOOD SPECIMENOrdering Facility: [facility] Address: [address] [place] [address] Performed By: #### 2 4323-8, ####[facility] MILLTOWNCLIA [id number] [place] [address] [place] Anion gap [Moles/Vol] 8 mmol/L Normal 8-15 [facility] Comment on above: Order Comment: Speci men Type: BLOOD SPECIMENOrdering Facility: [facility] Address: [address] [place] [address] Performed By: #### 2 4323-8, 05669-3 ####[facility] MILLTOWNCLIA [id number] [place] [address] [place] AST [Catalytic activity/Vol] 9 U/L Low 13-35 [facility] Comment on above: Order Comment: Speci men Type: BLOOD SPECIMENOrdering Facility: [facility] Address: [address] [place] [address] Performed By: #### 2 4323-8, ####[facility] SERVICESWANAMLIA [id number] [place] [address] [place] [place] Bilirubin [Mass/Vol] 0.3 mg/dL Normal 0.2-1.3 [facility] Comment on above: Order Comment: Speci men Type: BLOOD SPECIMENOrdering Facility: [facility] Address: [address] [place] [address] Performed By: #### 2 4323-8, ####[facility] [id number] [place] [address] [place] Calcium [Mass/Vol] 9.4 mg/dL Normal 8.5-10.2 [facility] Comment on above: Order Comment: Speci men Type: BLOOD SPECIMENOrdering Facility: [facility] Address: [address] [place] [address] Performed By: #### 2 4323-8, ####[facility] [id number] [place] [address] [place] Chloride [Moles/Vol] 97 mmol/L Low 98-107 [facility] Comment on above: Order Comment: Speci men Type: BLOOD SPECIMENOrdering Facility: [facility] Address: [address] [place] [address] Performed By: #### 2 4323-8, ####[facility]CL[facility] [id number] [place] [address] [place] CO2 [Moles/Vol] 31 mmol/L High 22-30 [facility] Comment on above: Order Comment: Speci men Type: BLOOD SPECIMENOrdering Facility: [facility] Address: [address] [place] [address] Performed By: #### 2 4323-8, ####[facility] [id number] [place] [address] [place] Creatinine [Mass/Vol] 0.94 mg/dL Normal 0.58-0.96 [facility] Comment on above: Order Comment: Speci men Type: BLOOD SPECIMENOrdering Facility: [facility] Address: [address] [place] [address] Performed By: #### 2 4323-8, ####[facility] [id number] [place] [address] [place] Creatinine and Glomerular filtration rate.predicted panel (S/P/Bld) 62 mL/min/1.73m??? Normal >=60 [facility] Comment on above: Order Comment: Speci men Type: BLOOD SPECIMENOrdering Facility: [facility] Address: [address] [place] [address] Result Comment: Judith mated Glomerular Filtration Rate (eGFR) is calculated using the 2020 CKD-EPI creatinine equation. This equation utilizes serum creatinine, sex, and age as parameters. The creatinine assay has traceable calibration to isotope dilution-mass spectrometry. Refer to KDIGO guidelines for clinical interpretation. In patients with unstable renal function, e.g. those with acute kidney injury, the eGFR may not accurately reflect actual GFR. Performed By: #### 2 4323-8, ####[facility] [id number] [place] [address] [place] Glucose [Mass/Vol] 220 mg/dL High 74-99 [facility] Comment on above: Order Comment: Speci men Type: BLOOD SPECIMENOrdering Facility: [facility] Address: [address] [id number] Result Comment: The [place] Diabetes Association (ADA) provides guidance for cutoff values for fasting glucose and random glucose. The ADA defines fasting as no caloric intake for at least 8 hours. Fasting plasma glucose results between 100 to 125 mg/dL indicate increased risk for diabetes (prediabetes).Fasting plasma glucose results greater than or equal to 126 mg/dL meet the criteria for diagnosis of diabetes. In the absence of unequivocal hyperglycemia, results should be confirmed by repeat testing. In a patient with classic symptoms of hyperglycemia or hyperglycemic crisis, random plasma glucose results greater than or equal to 200 mg/dL meet the criteria for diagnosis of diabetes.Reference: Standards of Medical Care in Diabetes 2016, [place] [employer]. Diabetes Care. 2016.39(Suppl 1). Performed By: #### 2 4323-8, ####[facility] [id number] [place] [address] [place] Potassium [Moles/Vol] 4.8 mmol/L Normal 3.7-5.1 [facility] Comment on above: Order Comment: Speci men Type: BLOOD SPECIMENOrdering Facility: [facility] Address: [address] [place], [place] [id number] Performed By: #### 2 4323-8, ####[facility] [id number] [place] [address] [place] Protein [Mass/Vol] 6.8 g/dL Normal 6.3-8.0 [facility] Comment on above: Order Comment: Speci men Type: BLOOD SPECIMENOrdering Facility: [facility] Address: [address] [place] [address] Performed By: #### 2 4323-8, ####[facility] [id number] [place] [address] [place] Sodium [Moles/Vol] 136 mmol/L Normal 136-144 [facility] Comment on above: Order Comment: Speci men Type: BLOOD SPECIMENOrdering Facility: [facility] Address: [address] [place], [place] [id number] Performed By: #### 2 4323-8, 45515-9 ####[facility] RENEBELLONAGABBIEA [id number] [place] [address] [place] Urea nitrogen [Mass/Vol] 23 mg/dL High 7-21 [facility] Comment on above: Order Comment: Speci men Type: BLOOD SPECIMENOrdering Facility: [facility] Address: [address] [place], [place] [address] Performed By: #### 2 4323-8, 06621-3 ####[facility] RENEBELLONANCLIA [id number] [place] [address] [place] MAGNESIUMon 03-15-2024 Magnesium [Mass/Vol] 1.2 mg/dL Low 1.7 - 2 .3 mg/dL [facility] Magnesium SerPl-mCncon 03-15 Magnesium [Mass/Vol] 1.2 mg/dL Low 1.7-2.3 [facility] Comment on above: Order Comment: Speci men Type: BLOOD SPECIMENOrdering Facility: [facility] Address: [address] [place] [address] Performed By: #### 2 4323-8, ####[facility] [id number] [place] [address] [place] No Panel InformationOrdered By: Tatyana Frost on 03-15-2024 Interpretation and review of laboratory results Abnormal [facility] CNCNPATEDon 03-10-2024 CNCNPATED Normal [facility] CNOVon 03-08-2024 CNOV Normal [facility] CNPNon 02-21-2024 CNPN Normal [facility] CNNURSEon 02-15-2024 CNNURSE Normal [facility] CNOVon 02-09-2024 CNOV Normal [facility] CNPNon 02-04-2024 CNPN Normal [facility] CBC W Auto Differential pane l (Bld)on 02-03-2024 Basophils (Bld) [#/Vol] [facility] Basophils/100 WBC (Bld) 0.2 % C [facility] Differential cell count method Nom (Bld) Auto [facility] Eosinophils (Bld) [#/Vol] 0.07 10*3/uL [facility] Eosinophils/100 WBC (Bld) 1.1 % [facility] Erythrocyte distribution width (RBC) [Ratio] 18.6 % High 11.5 - 15.0 % [facility] Hematocrit (Bld) [Volume fraction] 24.0 % Low 36.0 - 46.0 % [facility] Hemoglobin (Bld) [Mass/Vol] 8.1 g/dL Low 11.5 - 15.5 g/dL [facility] Immature granulocytes (Bld) [#/Vol] [facility] Immature granulocytes/100 WBC (Bld) 0.3 % [facility] Interpretation and review of laboratory results Abnormal [facility] Lymphocytes (Bld) [#/Vol] 0.83 10*3/uL Low [facility] Lymphocytes/100 WBC (Bld) 12.6 % [facility] MCH (RBC) [Entitic mass] 32.7 pg 26.0 - 34.0 pg [facility] MCHC (RBC) [Mass/Vol] 33.8 g/dL 30.5 - 36.0 g/dL [facility] MCV (RBC) [Entitic vol] 96.8 fL 80.0 - 100.0 fL [facility] Monocytes (Bld) [#/Vol] 0.56 10*3/uL [facility] Monocytes/100 WBC (Bld) 8.5 % C [facility] Neutrophils (Bld) [#/Vol] 5.12 10*3/uL [facility] Neutrophils/100 WBC (Bld) 77.3 % [facility] Nucleated RBC (Bld) [#/Vol] [facility] Nucleated RBC/100 WBC (Bld) [Ratio] 0.0 % /100 WBC [facility] Platelet mean volume (Bld) [Entitic vol] 9.8 fL 9.0 - 12.7 fL [facility] Platelets (Bld) [#/Vol] 70 10*3/uL Low C [facility] RBC (Bld) [#/Vol] 2.48 10*6/uL Low 3.90 - 5.2 0 m/uL [facility] WBC (Bld) [#/Vol] 6.61 10*3/uL [facility] Basophils (Bld) [#/Vol] 10*3/uL Normal <0.11 C [facility] Comment on above: Order Comment: Speci men Type: BLOOD SPECIMENOrdering Facility: [facility] Address: [address] [place] [address] Performed By: #### 5 7021-8 ####[facility] [id number] [place] [address] [place] Basophils/100 WBC (Bld) 0.2 % Normal C [facility] Comment on above: Order Comment: Speci men Type: BLOOD SPECIMENOrdering Facility: [facility] Address: [address] [place] [address] Performed By: #### 5 7021-8 ####[facility] [id number] [place] [address] [place] Differential cell count method Nom (Bld) Auto Normal [facility] Comment on above: Order Comment: Speci men Type: BLOOD SPECIMENOrdering Facility: [facility] Address: [address] [place] [address] Performed By: #### 5 7021-8 ####[facility]ITALLIA [id number] [place] [address] [place] Eosinophils (Bld) [#/Vol] 0.07 10*3/uL Normal <0.46 [facility] Comment on above: Order Comment: Speci men Type: BLOOD SPECIMENOrdering Facility: [facility] Address: [address] [place] [address] Performed By: #### 5 7021-8 ####[facility] [id number] [place] [address] [place] Eosinophils/100 WBC (Bld) 1.1 % Normal [facility] Comment on above: Order Comment: Speci men Type: BLOOD SPECIMENOrdering Facility: [facility] Address: [address] [place] [address] Performed By: #### 5 7021-8 ####[facility] [id number] [place] [address] [place] Erythrocyte distribution width (RBC) [Ratio] 18.6 % High 11.5-15.0 [facility] Comment on above: Order Comment: Speci men Type: BLOOD SPECIMENOrdering Facility: [facility] Address: [address] [place] [address] Performed By: #### 5 7021-8 ####[facility] [id number] [place] [address] [place] Hematocrit (Bld) [Volume fraction] 24.0 % Low 36.0-46.0 [facility] Comment on above: Order Comment: Speci men Type: BLOOD SPECIMENOrdering Facility: [facility] Address: [address] [place] [address] Performed By: #### 5 7021-8 ####[facility] [id number] [place] [address] [place] Hemoglobin (Bld) [Mass/Vol] 8.1 g/dL Low 11.5-15.5 [facility] Comment on above: Order Comment: Speci men Type: BLOOD SPECIMENOrdering Facility: [facility] Address: [address] [place] [address] Performed By: #### 5 7021-8 ####[facility] [id number] [place] [address] [place] Immature granulocytes (Bld) [#/Vol] 10*3/uL Normal <0.10 [facility] Comment on above: Order Comment: Speci men Type: BLOOD SPECIMENOrdering Facility: [facility] Address: [address] [place] [address] Performed By: #### 5 7021-8 ####[facility] RENEROXANNEA [id number] [place] [address] [place] Immature granulocytes/100 WBC (Bld) 0.3 % Normal [facility] Comment on above: Order Comment: Speci men Type: BLOOD SPECIMENOrdering Facility: [facility] Address: [address] [place] [address] Performed By: #### 5 7021-8 ####[facility] [id number] [place] [address] [place] Lymphocytes (Bld) [#/Vol] 0.83 10*3/uL Low 1.00-4.00 [facility] Comment on above: Order Comment: Speci men Type: BLOOD SPECIMENOrdering Facility: [facility] Address: [address] [place] [address] Performed By: #### 5 7021-8 ####[facility] [id number] [place] [address] [place] Lymphocytes/100 WBC (Bld) 12.6 % Normal [facility] Comment on above: Order Comment: Speci men Type: BLOOD SPECIMENOrdering Facility: [facility] Address: [address] [place] [address] Performed By: #### 5 7021-8 ####[facility] [id number] [place] [address] [place] MCH (RBC) [Entitic mass] 32.7 pg Normal 26.0-34.0 [facility] Comment on above: Order Comment: Speci men Type: BLOOD SPECIMENOrdering Facility: [facility] Address: [address] [place] [address] Performed By: #### 5 7021-8 ####[facility] [id number] [place] [address] [place] MCHC (RBC) [Mass/Vol] 33.8 g/dL Normal 30.5-36.0 [facility] Comment on above: Order Comment: Speci men Type: BLOOD SPECIMENOrdering Facility: [facility] Address: [address] [place] [address] Performed By: #### 5 7021-8 ####[facility] [id number] [place] [address] [place] MCV (RBC) [Entitic vol] 96.8 fL Normal 80.0-100.0 [facility] Comment on above: Order Comment: Speci men Type: BLOOD SPECIMENOrdering Facility: [facility] Address: [address] [place] [address] Performed By: #### 5 7021-8 ####[facility] [id number] [place] [address] [place] Monocytes (Bld) [#/Vol] 0.56 10*3/uL Normal <0.87 [facility] Comment on above: Order Comment: Speci men Type: BLOOD SPECIMENOrdering Facility: [facility] Address: [address] [place] [address] Performed By: #### 5 7021-8 ####[facility] [id number] [place] [address] [place] Monocytes/100 WBC (Bld) 8.5 % Normal [facility] Comment on above: Order Comment: Speci men Type: BLOOD SPECIMENOrdering Facility: [facility] Address: [address] [place] [address] Performed By: #### 5 7021-8 ####[facility] [id number] [place] [address] [place] Neutrophils (Bld) [#/Vol] 5.12 10*3/uL Normal 1.45-7.50 [facility] Comment on above: Order Comment: Speci men Type: BLOOD SPECIMENOrdering Facility: [facility] Address: [address] [place] [address] Performed By: #### 5 7021-8 ####[facility] [id number] [place] [address] [place] Neutrophils/100 WBC (Bld) 77.3 % Normal [facility] Comment on above: Order Comment: Speci men Type: BLOOD SPECIMENOrdering Facility: [facility] Address: [address] [place] [address] Performed By: #### 5 7021-8 ####[facility] [id number] [place] [address] [place] Nucleated RBC (Bld) [#/Vol] 10*3/uL Normal <0.01 [facility] Comment on above: Order Comment: Speci men Type: BLOOD SPECIMENOrdering Facility: [facility] Address: [address] [place] [address] Performed By: #### 5 7021-8 ####[facility] [id number] [place] [address] [place] Nucleated RBC/100 WBC (Bld) [Ratio] 0.0 /100 WBC Normal [facility] Comment on above: Order Comment: Speci men Type: BLOOD SPECIMENOrdering Facility: [facility] Address: [address] [place] [address] Performed By: #### 5 7021-8 ####[facility] [id number] [place] [address] [place] Platelet mean volume (Bld) [Entitic vol] 9.8 fL Normal 9.0-12.7 [facility] Comment on above: Order Comment: Speci men Type: BLOOD SPECIMENOrdering Facility: [facility] Address: [address] [place] [address] Performed By: #### 5 7021-8 ####[facility] VINCENCLIA [id number] [place] [address] [place] Platelets (Bld) [#/Vol] 70 10*3/uL Low 150-400 [facility] Comment on above: Order Comment: Speci men Type: BLOOD SPECIMENOrdering Facility: [facility] Address: [address] [place] [address] Performed By: #### 5 7021-8 ####[facility] [id number] [place] [address] [place] RBC (Bld) [#/Vol] 2.48 10*6/uL Low 3.90-5.20 [facility] Comment on above: Order Comment: Speci men Type: BLOOD SPECIMENOrdering Facility: [facility] Address: [address] [place] [address] Performed By: #### 5 7021-8 ####[facility] [id number] [place] [address] [place] WBC (Bld) [#/Vol] 6.61 10*3/uL Normal 3.70-11.00 [facility] Comment on above: Order Comment: Speci men Type: BLOOD SPECIMENOrdering Facility: [facility] Address: [address] [place] [address] Performed By: #### 5 7021-8 ####[facility] [id number] [place] [address] [place] CNPNon 02-03-2024 CNPN Normal [facility] CBC W Auto Differential pane l (Bld)on 02-02-2024 Basophils (Bld) [#/Vol] NINF [facility] Basophils/100 WBC (Bld) 0.2 % [facility] Differential cell count method Nom (Bld) Auto [facility] Eosinophils (Bld) [#/Vol] 0.08 10*3/uL [facility] Eosinophils/100 WBC (Bld) 1.7 % [facility] Erythrocyte distribution width (RBC) [Ratio] 18.0 % High 11.5 - 15.0 % [facility] Hematocrit (Bld) [Volume fraction] 23.8 % Low 36.0 - 46.0 % [facility] Hemoglobin (Bld) [Mass/Vol] 8.0 g/dL Low 11.5 - 15.5 g/dL [facility] Immature granulocytes (Bld) [#/Vol] [facility] Immature granulocytes/100 WBC (Bld) 0.2 % [facility] Interpretation and review of laboratory results Abnormal [facility] Lymphocytes (Bld) [#/Vol] 0.88 10*3/uL Low [facility] Lymphocytes/100 WBC (Bld) 18.8 % [facility] MCH (RBC) [Entitic mass] 32.9 pg 26.0 - 34.0 pg [facility] MCHC (RBC) [Mass/Vol] 33.6 g/dL 30.5 - 36.0 g/dL [facility] MCV (RBC) [Entitic vol] 97.9 fL 80.0 - 100.0 fL [facility] Monocytes (Bld) [#/Vol] 0.51 10*3/uL [facility] Monocytes/100 WBC (Bld) 10.9 % C [facility] Neutrophils (Bld) [#/Vol] 3.19 10*3/uL [facility] Neutrophils/100 WBC (Bld) 68.2 % [facility] Nucleated RBC (Bld) [#/Vol] [facility] Nucleated RBC/100 WBC (Bld) [Ratio] 0.0 % /100 WBC [facility] Platelet mean volume (Bld) [Entitic vol] 9.9 fL 9.0 - 12.7 fL [facility] Platelets (Bld) [#/Vol] 60 10*3/uL Low C [facility] Comment on above: No clot detected. RBC (Bld) [#/Vol] 2.43 10*6/uL Low 3.90 - 5.2 0 m/uL [facility] WBC (Bld) [#/Vol] 4.68 10*3/uL [facility] Basophils (Bld) [#/Vol] 10*3/uL Normal <0.11 [facility] Comment on above: Order Comment: Speci men Type: BLOOD SPECIMENOrdering Facility: [facility] Address: [address] [place] [address] Performed By: #### 5 7021-8 ####[facility] DENNIS MILLWNCLIA [id number] [place] [address] [place] Basophils/100 WBC (Bld) 0.2 % Normal [facility] Comment on above: Order Comment: Speci men Type: BLOOD SPECIMENOrdering Facility: [facility] Address: [address] [place] [address] Performed By: #### 5 7021-8 ####[facility] [id number] [place] [address] [place] Differential cell count method Nom (Bld) Auto Normal [facility] Comment on above: Order Comment: Speci men Type: BLOOD SPECIMENOrdering Facility: [facility] Address: [address] [place] [address] Performed By: #### 5 7021-8 ####[facility] [id number] [place] [address] [place] Eosinophils (Bld) [#/Vol] 0.08 10*3/uL Normal <0.46 [facility] Comment on above: Order Comment: Speci men Type: BLOOD SPECIMENOrdering Facility: [facility] Address: [address] [place] [address] Performed By: #### 5 7021-8 ####[facility] [id number] [place] [address] [place] Eosinophils/100 WBC (Bld) 1.7 % Normal [facility] Comment on above: Order Comment: Speci men Type: BLOOD SPECIMENOrdering Facility: [facility] Address: [address] [place] [address] Performed By: #### 5 7021-8 ####[facility] RENEBELLONADAQUAN [id number] [place] [address] [place] Erythrocyte distribution width (RBC) [Ratio] 18.0 % High 11.5-15.0 [facility] Comment on above: Order Comment: Speci men Type: BLOOD SPECIMENOrdering Facility: [facility] Address: [address] [place] [address] Performed By: #### 5 7021-8 ####[facility] [id number] [place] [address] [place] Hematocrit (Bld) [Volume fraction] 23.8 % Low 36.0-46.0 [facility] Comment on above: Order Comment: Speci men Type: BLOOD SPECIMENOrdering Facility: [facility] Address: [address] [place] [address] Performed By: #### 5 7021-8 ####[facility] [id number] [place] [address] [place] Hemoglobin (Bld) [Mass/Vol] 8.0 g/dL Low 11.5-15.5 [facility] Comment on above: Order Comment: Speci men Type: BLOOD SPECIMENOrdering Facility: [facility] Address: [address] [place] [address] Performed By: #### 5 7021-8 ####[facility] [id number] [place] [address] [place] Immature granulocytes (Bld) [#/Vol] 10*3/uL Normal <0.10 [facility] Comment on above: Order Comment: Speci men Type: BLOOD SPECIMENOrdering Facility: [facility] Address: [address] [place] [address] Performed By: #### 5 7021-8 ####[facility] RENEBELLONANCLIA [id number] [place] [address] [place] Immature granulocytes/100 WBC (Bld) 0.2 % Normal [facility] Comment on above: Order Comment: Speci men Type: BLOOD SPECIMENOrdering Facility: [facility] Address: [address] [place] [address] Performed By: #### 5 7021-8 ####[facility] [id number] [place] [address] [place] Lymphocytes (Bld) [#/Vol] 0.88 10*3/uL Low 1.00-4.00 [facility] Comment on above: Order Comment: Speci men Type: BLOOD SPECIMENOrdering Facility: [facility] Address: [address] [place] [address] Performed By: #### 5 7021-8 ####[facility] [id number] [place] [address] [place] Lymphocytes/100 WBC (Bld) 18.8 % Normal [facility] Comment on above: Order Comment: Speci men Type: BLOOD SPECIMENOrdering Facility: [facility] Address: [address] [place] [address] Performed By: #### 5 7021-8 ####[facility] [id number] [place] [address] [place] MCH (RBC) [Entitic mass] 32.9 pg Normal 26.0-34.0 [facility] Comment on above: Order Comment: Speci men Type: BLOOD SPECIMENOrdering Facility: [facility] Address: [address] [place] [address] Performed By: #### 5 7021-8 ####[facility] [id number] [place] [address] [place] MCHC (RBC) [Mass/Vol] 33.6 g/dL Normal 30.5-36.0 [facility] Comment on above: Order Comment: Speci men Type: BLOOD SPECIMENOrdering Facility: [facility] Address: [address] [place] [address] Performed By: #### 5 7021-8 ####[facility] [id number] [place] [address] [place] MCV (RBC) [Entitic vol] 97.9 fL Normal 80.0-100.0 [facility] Comment on above: Order Comment: Speci men Type: BLOOD SPECIMENOrdering Facility: [facility] Address: [address] [place], [place] [address] Performed By: #### 5 7021-8 ####[facility] [id number] [place] [address] [place] Monocytes (Bld) [#/Vol] 0.51 10*3/uL Normal <0.87 [facility] Comment on above: Order Comment: Speci men Type: BLOOD SPECIMENOrdering Facility: [facility] Address: [address] [place] [address] Performed By: #### 5 7021-8 ####[facility] [id number] [place] [address] [place] Monocytes/100 WBC (Bld) 10.9 % Normal C [facility] Comment on above: Order Comment: Speci men Type: BLOOD SPECIMENOrdering Facility: [facility] Address: [address] [place] [address] Performed By: #### 5 7021-8 ####[facility] [id number] [place] [address] [place] Neutrophils (Bld) [#/Vol] 3.19 10*3/uL Normal 1.45-7.50 [facility] Comment on above: Order Comment: Speci men Type: BLOOD SPECIMENOrdering Facility: [facility] Address: [address] [place] [address] Performed By: #### 5 7021-8 ####[facility] RENEROXANNEA [id number] [place] [address] [place] Neutrophils/100 WBC (Bld) 68.2 % Normal [facility] Comment on above: Order Comment: Speci men Type: BLOOD SPECIMENOrdering Facility: [facility] Address: [address] [place] [address] Performed By: #### 5 7021-8 ####[facility] [id number] [place] [address] [place] Nucleated RBC (Bld) [#/Vol] 10*3/uL Normal <0.01 [facility] Comment on above: Order Comment: Speci men Type: BLOOD SPECIMENOrdering Facility: [facility] Address: [address] [place] [address] Performed By: #### 5 7021-8 ####[facility] [id number] [place] [address] [place] Nucleated RBC/100 WBC (Bld) [Ratio] 0.0 /100 WBC Normal [facility] Comment on above: Order Comment: Speci men Type: BLOOD SPECIMENOrdering Facility: [facility] Address: [address] [place] [address] Performed By: #### 5 7021-8 ####[facility] RENEBELLONAANAMLIA [id number] [place] [address] [place] Platelet mean volume (Bld) [Entitic vol] 9.9 fL Normal 9.0-12.7 [facility] Comment on above: Order Comment: Speci men Type: BLOOD SPECIMENOrdering Facility: [facility] Address: [address] [place] [address] Performed By: #### 5 7021-8 ####[facility] [id number] [place] [address] [place] Platelets (Bld) [#/Vol] 60 10*3/uL Low 150-400 C [facility] Comment on above: Order Comment: Speci men Type: BLOOD SPECIMENOrdering Facility: [facility] Address: [address] [place] [address] Result Comment: No c lot detected. Performed By: #### 5 7021-8 ####[facility] [id number] [place] [address] [place] RBC (Bld) [#/Vol] 2.43 10*6/uL Low 3.90-5.20 [facility] Comment on above: Order Comment: Speci men Type: BLOOD SPECIMENOrdering Facility: [facility] Address: [address] [place] [address] Performed By: #### 5 7021-8 ####[facility] [id number] [place] [address] [place] WBC (Bld) [#/Vol] 4.68 10*3/uL Normal 3.70-11.00 [facility] Comment on above: Order Comment: Speci men Type: BLOOD SPECIMENOrdering Facility: [facility] Address: [address] [place] [address] Performed By: #### 5 7021-8 ####[facility] [id number] [place] [address] [place] CNOVSPon 02-02-2024 CNOVSP Normal [facility] metabolic 2000 panelOrdered By: Anai Arroyo on 02-02-2024 Albumin [Mass/Vol] 3.8 g/dL Low 3.9 - 4.9 g/dL [facility] ALP [Catalytic activity/Vol] 79 U/L 34 - 123 U/L [facility] ALT [Catalytic activity/Vol] 13 U/L 7 - 38 U/L [facility] Anion gap [Moles/Vol] 10 mmol/L 8 - 15 mmol/L [facility] AST [Catalytic activity/Vol] 12 U/L Low 13 - 35 U/L [facility] Bilirubin [Mass/Vol] 0.3 mg/dL 0.2 - 1 .3 mg/dL [facility] Calcium [Mass/Vol] 9.3 mg/dL 8.5 - 10. 2 mg/dL [facility] Chloride [Moles/Vol] 101 mmol/L 98 - 10 7 mmol/L [facility] CO2 [Moles/Vol] 26 mmol/L 22 - 30 mmol/L [facility] Creatinine [Mass/Vol] 1.02 mg/dL High 0.58 - 0.96 mg/dL [facility] GFR/1.73 sq M.predicted among non-blacks MDRD (S/P/Bld) [Vol rate/Area] 56 mL/min/{1.73_m2} Low - PINF [facility] Comment on above: Estimated Glomerular Filtration Rate (eGFR) is calculated using the 2020 CKD-EPI creatinine equation. This equation utilizes serum creatinine, sex, and age as parameters. The creatinine assay has traceable calibration to isotope dilution-mass spectrometry. Refer to KDIGO guidelines for clinical interpretation. In patients with unstable renal function, e.g. those with acute kidney injury, the eGFR may not accurately reflect actual GFR. Glucose [Mass/Vol] 168 mg/dL High 74 - 99 mg/dL [facility] Comment on above: The [place] Diab[employer] [place] Association (ADA) provides guidance for cutoff values for fasting glucose and random glucose. The ADA defines fasting as no caloric intake for at least 8 hours. Fasting plasma glucose results between 100 to 125 mg/dL indicate increased risk for diabetes (prediabetes). Fasting plasma glucose results greater than or equal to 126 mg/dL meet the criteria for diagnosis of diabetes. In the absence of unequivocal hyperglycemia, results should be confirmed by repeat testing. In a patient with classic symptoms of hyperglycemia or hyperglycemic crisis, random plasma glucose results greater than or equal to 200 mg/dL meet the criteria for diagnosis of diabetes. Reference: Standards of Medical Care in Diabetes 2016, [place] [employer] Association. Diabetes Care. 2016.39(Suppl 1). Interpretation and review of laboratory results Abnormal [facility] Potassium [Moles/Vol] 4.3 mmol/L 3.7 - 5.1 mmol/L [facility] Protein [Mass/Vol] 6.3 g/dL 6.3 - 8.0 g/dL [facility] Sodium [Moles/Vol] 137 mmol/L 136 - 144 mmol/L [facility] Urea nitrogen [Mass/Vol] 23 mg/dL High 7 - 21 mg/dL [facility] Comprehensive metabolic 2000 panelon 02-02-2024 Albumin [Mass/Vol] 3.8 g/dL Low 3.9-4.9 [facility] Comment on above: Order Comment: Speci men Type: BLOOD SPECIMENOrdering Facility: [facility] Address: [address] [place] [address] Performed By: #### 2 4323-8, 95904-7 ####[facility] [id number] [place] [address] [place] ALP [Catalytic activity/Vol] 79 U/L Normal 34-123 [facility] Comment on above: Order Comment: Speci men Type: BLOOD SPECIMENOrdering Facility: [facility] Address: [address] [place] [address] Performed By: #### 2 4323-8, ####[facility] [id number] [place] [address] [place] ALT [Catalytic activity/Vol] 13 U/L Normal 7-38 [facility] Comment on above: Order Comment: Speci men Type: BLOOD SPECIMENOrdering Facility: [facility] Address: [address] [place] [address] Performed By: #### 2 4323-8, ####[facility] [id number] [place] [address] [place] Anion gap [Moles/Vol] 10 mmol/L Normal 8-15 [facility] Comment on above: Order Comment: Speci men Type: BLOOD SPECIMENOrdering Facility: [facility] Address: [address] [place] [address] Performed By: #### 2 4323-8, ####[facility] MILLTOWNCLIA [id number] [place] [address] [place] AST [Catalytic activity/Vol] 12 U/L Low 13-35 [facility] Comment on above: Order Comment: Speci men Type: BLOOD SPECIMENOrdering Facility: [facility] Address: [address] [place] [address] Performed By: #### 2 4323-8, ####[facility] RENEWANAMLIA [id number] [place] [address] [place] Bilirubin [Mass/Vol] 0.3 mg/dL Normal 0.2-1.3 [facility] Comment on above: Order Comment: Speci men Type: BLOOD SPECIMENOrdering Facility: [facility] Address: [address] [place] [address] Performed By: #### 2 432-8, ####[facility] [id number] [place] [address] [place] Calcium [Mass/Vol] 9.3 mg/dL Normal 8.5-10.2 [facility] Comment on above: Order Comment: Speci men Type: BLOOD SPECIMENOrdering Facility: [facility] Address: [address] [place], [place] [address] Performed By: #### 2 4323-8, ####[facility] RENEWNCLIA [id number] [place] [address] [place] Chloride [Moles/Vol] 101 mmol/L Normal 98-107 [facility] Comment on above: Order Comment: Speci men Type: BLOOD SPECIMENOrdering Facility: [facility] Address: [address] [place] [address] Performed By: #### 2 4323-8, ####[facility] SERVICESWNCLIA [id number] [place] [address] [place] CO2 [Moles/Vol] 26 mmol/L Normal 22-30 [facility] Comment on above: Order Comment: Speci men Type: BLOOD SPECIMENOrdering Facility: [facility] Address: [address] [place] [address] Performed By: #### 2 4323-8, 18862-8 ####[facility] [id number] [place] [address] [place] Creatinine [Mass/Vol] 1.02 mg/dL High 0.58-0.96 [facility] Comment on above: Order Comment: Speci men Type: BLOOD SPECIMENOrdering Facility: [facility] Address: [address] [place] [address] Performed By: #### 2 4323-8, ####[facility] [id number] [place] [address] [place] Creatinine and Glomerular filtration rate.predicted panel (S/P/Bld) 56 mL/min/1.73m??? Low >=60 [facility] Comment on above: Order Comment: Speci men Type: BLOOD SPECIMENOrdering Facility: [facility] Address: [address] [place] [address] Result Comment: Jduith mated Glomerular Filtration Rate (eGFR) is calculated using the 2020 CKD-EPI creatinine equation. This equation utilizes serum creatinine, sex, and age as parameters. The creatinine assay has traceable calibration to isotope dilution-mass spectrometry. Refer to KDIGO guidelines for clinical interpretation. In patients with unstable renal function, e.g. those with acute kidney injury, the eGFR may not accurately reflect actual GFR. Performed By: #### 2 4323-8, 34285-1 ####[facility] [id number] [place] [address] [place] Glucose [Mass/Vol] 168 mg/dL High 74-99 [facility] Comment on above: Order Comment: Guera doll Type: BLOOD SPECIMENOrdering Facility: [facility] Address: [address] [place] [address] Result Comment: The [place] Diabetes Association (ADA) provides guidance for cutoff values for fasting glucose and random glucose. The ADA defines fasting as no caloric intake for at least 8 hours. Fasting plasma glucose results between 100 to 125 mg/dL indicate increased risk for diabetes (prediabetes).Fasting plasma glucose results greater than or equal to 126 mg/dL meet the criteria for diagnosis of diabetes. In the absence of unequivocal hyperglycemia, results should be confirmed by repeat testing. In a patient with classic symptoms of hyperglycemia or hyperglycemic crisis, random plasma glucose results greater than or equal to 200 mg/dL meet the criteria for diagnosis of diabetes.Reference: Standards of Medical Care in Diabetes 2016, [place] [employer]. Diabetes Care. 2016.39(Suppl 1). Performed By: #### 2 4323-8, ####[facility] MILLWANAMLIAmalia [id number] [place] [address] [place] Potassium [Moles/Vol] 4.3 mmol/L Normal 3.7-5.1 [facility] Comment on above: Order Comment: Guera doll Type: BLOOD SPECIMENOrdering Facility: [facility] Address: [address] [place], [place] [id number] Performed By: #### 2 4323-8, ####[facility] MILLWANAMLIAmalia [id number] [place] [address] [place] Protein [Mass/Vol] 6.3 g/dL Normal 6.3-8.0 [facility] Comment on above: Order Comment: Guera doll Type: BLOOD SPECIMENOrdering Facility: [facility] Address: [address] [place] [address] Performed By: #### 2 4323-8, ####[facility] MILLTOWNCLIA [id number] [place] [address] [place] Sodium [Moles/Vol] 137 mmol/L Normal 136-144 [facility] Comment on above: Order Comment: Speci men Type: BLOOD SPECIMENOrdering Facility: [facility] Address: [facility] [place] [id number] Performed By: #### 2 4323-8, ####[facility]IT[facility] [id number] [place] [address] [place] Urea nitrogen [Mass/Vol] 23 mg/dL High 7-21 [facility] Comment on above: Order Comment: Speci men Type: BLOOD SPECIMENOrdering Facility: [facility] Address: [address] [place] [address] Performed By: #### 2 4323-8, ####[facility] [id number] [place] [address] [place] MAGNESIUMon 02-02-2024 Magnesium [Mass/Vol] 1.2 mg/dL Low 1.7 - 2 .3 mg/dL [facility] Magnesium SerPl-mCncon 02-01 Magnesium [Mass/Vol] 1.2 mg/dL Low 1.7-2.3 [facility] Comment on above: Order Comment: Speci men Type: BLOOD SPECIMENOrdering Facility: [facility] Address: [address] [place] [address] Performed By: #### 2 4323-8, ####[facility]IT[facility] [id number] [place] [address] [place] Magnesium [Mass/Vol]on 02-01 Interpretation and review of laboratory results Abnormal [facility] CT ABD/PEL W IVCONon 024 CT ABD/PEL W IVCON Normal [facility] CT CHEST W IVCONon 4 CT CHEST W IVCON Normal [facility] CBC W Auto Differential pane l (Bld)on 11-14-2024 Basophils (Bld) [#/Vol] [facility] Basophils/100 WBC (Bld) 0.0 % C [facility] Differential cell count method Nom (Bld) Auto [facility] Eosinophils (Bld) [#/Vol] 0.08 10*3/uL [facility] Eosinophils/100 WBC (Bld) 2.2 % [facility] Erythrocyte distribution width (RBC) [Ratio] 16.9 % High 11.5 - 15.0 % [facility] Hematocrit (Bld) [Volume fraction] 27.9 % Low 36.0 - 46.0 % [facility] Hemoglobin (Bld) [Mass/Vol] 9.3 g/dL Low 11.5 - 15.5 g/dL [facility] Immature granulocytes (Bld) [#/Vol] [facility] Immature granulocytes/100 WBC (Bld) 0.6 % [facility] Interpretation and review of laboratory results Abnormal [facility] Lymphocytes (Bld) [#/Vol] 0.83 10*3/uL Low [facility] Lymphocytes/100 WBC (Bld) 22.9 % [facility] MCH (RBC) [Entitic mass] 31.8 pg 26.0 - 34.0 pg [facility] MCHC (RBC) [Mass/Vol] 33.3 g/dL 30.5 - 36.0 g/dL [facility] MCV (RBC) [Entitic vol] 95.5 fL 80.0 - 100.0 fL [facility] Monocytes (Bld) [#/Vol] 0.45 10*3/uL [facility] Monocytes/100 WBC (Bld) 12.4 % [facility] Neutrophils (Bld) [#/Vol] 2.25 10*3/uL [facility] Neutrophils/100 WBC (Bld) 61.9 % [facility] Nucleated RBC (Bld) [#/Vol] [facility] Nucleated RBC/100 WBC (Bld) [Ratio] 0.0 % /100 WBC [facility] Platelet mean volume (Bld) [Entitic vol] 9.4 fL 9.0 - 12.7 fL [facility] Platelets (Bld) [#/Vol] 262 10*3/uL [facility] RBC (Bld) [#/Vol] 2.92 10*6/uL Low 3.90 - 5.2 0 m/uL [facility] WBC (Bld) [#/Vol] 3.63 10*3/uL Low [facility] Basophils (Bld) [#/Vol] 10*3/uL Normal <0.11 C [facility] Comment on above: Order Comment: Speci men Type: BLOOD SPECIMENOrdering Facility: [facility] Address: [address] [place] [address] Performed By: #### 5 7021-8 ####[facility] MILLWNCLIA [id number] [place] [address] [place] Basophils/100 WBC (Bld) 0.0 % Normal C [facility] Comment on above: Order Comment: Speci men Type: BLOOD SPECIMENOrdering Facility: [facility] Address: [address] [place] [address] Performed By: #### 5 7021-8 ####[facility] SERVICESWKYLIA [id number] [place] [address] [place] Differential cell count method Nom (Bld) Auto Normal [facility] Comment on above: Order Comment: Speci men Type: BLOOD SPECIMENOrdering Facility: [facility] Address: [address] [place] [address] Performed By: #### 5 7021-8 ####[facility]IT[facility] [id number] [place] [address] [place] Eosinophils (Bld) [#/Vol] 0.08 10*3/uL Normal <0.46 [facility] Comment on above: Order Comment: Speci men Type: BLOOD SPECIMENOrdering Facility: [facility] Address: [address] [place] [address] Performed By: #### 5 7021-8 ####[facility] MILLBELLONANCLIA [id number] [place] [address] [place] Eosinophils/100 WBC (Bld) 2.2 % Normal [facility] Comment on above: Order Comment: Speci men Type: BLOOD SPECIMENOrdering Facility: [facility] Address: [address] [place] [address] Performed By: #### 5 7021-8 ####[facility] VINCENCIRISA [id number] [place] [address] [place] Erythrocyte distribution width (RBC) [Ratio] 16.9 % High 11.5-15.0 [facility] Comment on above: Order Comment: Speci men Type: BLOOD SPECIMENOrdering Facility: [facility] Address: [address] [place] [address] Performed By: #### 5 7021-8 ####[facility] [id number] [place] [address] [place] Hematocrit (Bld) [Volume fraction] 27.9 % Low 36.0-46.0 [facility] Comment on above: Order Comment: Speci men Type: BLOOD SPECIMENOrdering Facility: [facility] Address: [address] [place] [address] Performed By: #### 5 7021-8 ####[facility] [id number] [place] [address] [place] Hemoglobin (Bld) [Mass/Vol] 9.3 g/dL Low 11.5-15.5 [facility] Comment on above: Order Comment: Speci men Type: BLOOD SPECIMENOrdering Facility: [facility] Address: [address] [place] [address] Performed By: #### 5 7021-8 ####[facility] [id number] [place] [address] [place] Immature granulocytes (Bld) [#/Vol] 10*3/uL Normal <0.10 [facility] Comment on above: Order Comment: Speci men Type: BLOOD SPECIMENOrdering Facility: [facility] Address: [address] [place] [address] Performed By: #### 5 7021-8 ####[facility] RENEWNCLIA [id number] [place] [address] [place] [facility] Immature granulocytes/100 WBC (Bld) 0.6 % Normal [facility] Comment on above: Order Comment: Speci men Type: BLOOD SPECIMENOrdering Facility: [facility] Address: [address] [place] [address] Performed By: #### 5 7021-8 ####[facility]ML[facility] [id number] [place] [address] [place] Lymphocytes (Bld) [#/Vol] 0.83 10*3/uL Low 1.00-4.00 [facility] Comment on above: Order Comment: Speci men Type: BLOOD SPECIMENOrdering Facility: [facility] Address: [address] [place] [address] Performed By: #### 5 7021-8 ####[facility] [id number] [place] [address] [place] Lymphocytes/100 WBC (Bld) 22.9 % Normal [facility] Comment on above: Order Comment: Speci men Type: BLOOD SPECIMENOrdering Facility: [facility] Address: [address] [place] [address] Performed By: #### 5 7021-8 ####[facility] [id number] [place] [address] [place] MCH (RBC) [Entitic mass] 31.8 pg Normal 26.0-34.0 [facility] Comment on above: Order Comment: Speci men Type: BLOOD SPECIMENOrdering Facility: [facility] Address: [address] [place] [address] Performed By: #### 5 7021-8 ####[facility] [id number] [place] [id number] [place] MCHC (RBC) [Mass/Vol] 33.3 g/dL Normal 30.5-36.0 [facility] Comment on above: Order Comment: Speci men Type: BLOOD SPECIMENOrdering Facility: [facility] Address: [address] [place] [address] Performed By: #### 5 7021-8 ####[facility] RENEAdrianneANAMLIA [id number] [place] [address] [place] MCV (RBC) [Entitic vol] 95.5 fL Normal 80.0-100.0 C [facility] Comment on above: Order Comment: Speci men Type: BLOOD SPECIMENOrdering Facility: [facility] Address: [address] [place] [address] Performed By: #### 5 7021-8 ####[facility]ABBIEA [id number] [place] [address] [place] Monocytes (Bld) [#/Vol] 0.45 10*3/uL Normal <0.87 [facility] Comment on above: Order Comment: Speci men Type: BLOOD SPECIMENOrdering Facility: [facility] Address: [address] [place] [address] Performed By: #### 5 7021-8 ####[facility]OPK[facility]ML[facility] [id number] [place] [address] [place] Monocytes/100 WBC (Bld) 12.4 % Normal C [facility] Comment on above: Order Comment: Speci men Type: BLOOD SPECIMENOrdering Facility: [facility] Address: [address] [place] [address] Performed By: #### 5 7021-8 ####[facility]CL[facility] [id number] [place] [address] [place] Neutrophils (Bld) [#/Vol] 2.25 10*3/uL Normal 1.45-7.50 [facility] Comment on above: Order Comment: Speci men Type: BLOOD SPECIMENOrdering Facility: [facility] Address: [address] [place] [address] Performed By: #### 5 7021-8 ####[facility] RENEAdrianneNCAARON [id number] [place] [address] [place] Neutrophils/100 WBC (Bld) 61.9 % Normal [facility] Comment on above: Order Comment: Speci men Type: BLOOD SPECIMENOrdering Facility: [facility] Address: [address] [place] [address] Performed By: #### 5 7021-8 ####[facility] [id number] [place] [address] [place] Nucleated RBC (Bld) [#/Vol] 10*3/uL Normal <0.01 [facility] Comment on above: Order Comment: Speci men Type: BLOOD SPECIMENOrdering Facility: [facility] Address: [address] [place] [address] Performed By: #### 5 7021-8 ####[facility]AN[facility] [id number] [place] [address] [place] Nucleated RBC/100 WBC (Bld) [Ratio] 0.0 /100 WBC Normal [facility] Comment on above: Order Comment: Speci men Type: BLOOD SPECIMENOrdering Facility: [facility] Address: [address] [place] [address] Performed By: #### 5 7021-8 ####[facility]ANCL[facility] [id number] [place] [address] [place] Platelet mean volume (Bld) [Entitic vol] 9.4 fL Normal 9.0-12.7 [facility] Comment on above: Order Comment: Speci men Type: BLOOD SPECIMENOrdering Facility: [facility] Address: [address] [place] [address] Performed By: #### 5 7021-8 ####[facility] RENEAdrianneNCLIA [id number] [place] [address] [place] Platelets (Bld) [#/Vol] 262 10*3/uL Normal 150-400 [facility] Comment on above: Order Comment: Speci men Type: BLOOD SPECIMENOrdering Facility: [facility] Address: [address] [place], [place] [address] Performed By: #### 5 7021-8 ####[facility] [id number] [place] [address] [place] RBC (Bld) [#/Vol] 2.92 10*6/uL Low 3.90-5.20 [facility] Comment on above: Order Comment: Speci men Type: BLOOD SPECIMENOrdering Facility: [facility] Address: [address] [place] [address] Performed By: #### 5 7021-8 ####[facility] [id number] [place] [address] [place] WBC (Bld) [#/Vol] 3.63 10*3/uL Low 3.70-11.00 [facility] Comment on above: Order Comment: Speci men Type: BLOOD SPECIMENOrdering Facility: [facility] Address: [address] [place], [place] [address] Performed By: #### 5 7021-8 ####[facility] [id number] [place] [address] [facility] [place] Comprehensive metabolic 2000 panelOrdered By: Tatyana Frost on 01-13-2024 Albumin [Mass/Vol] 4.0 g/dL 3.9 - 4.9 g/dL [facility] ALP [Catalytic activity/Vol] 100 U/L 34 - 123 U/L [facility] ALT [Catalytic activity/Vol] 10 U/L 7 - 38 U/L [facility] Anion gap [Moles/Vol] 10 mmol/L 8 - 15 mmol/L [facility] AST [Catalytic activity/Vol] 10 U/L Low 13 - 35 U/L [facility] Bilirubin [Mass/Vol] 0.4 mg/dL 0.2 - 1 .3 mg/dL [facility] Calcium [Mass/Vol] 9.5 mg/dL 8.5 - 10. 2 mg/dL [facility] Chloride [Moles/Vol] 98 mmol/L 98 - 10 7 mmol/L [facility] CO2 [Moles/Vol] 29 mmol/L 22 - 30 mmol/L [facility] Creatinine [Mass/Vol] 1.00 mg/dL High 0.58 - 0.96 mg/dL [facility] GFR/1.73 sq M.predicted among non-blacks MDRD (S/P/Bld) [Vol rate/Area] 58 mL/min/{1.73_m2} Low - PINF [facility] Comment on above: Estimated Glomerular Filtration Rate (eGFR) is calculated using the 2020 CKD-EPI creatinine equation. This equation utilizes serum creatinine, sex, and age as parameters. The creatinine assay has traceable calibration to isotope dilution-mass spectrometry. Refer to KDIGO guidelines for clinical interpretation. In patients with unstable renal function, e.g. those with acute kidney injury, the eGFR may not accurately reflect actual GFR. Glucose [Mass/Vol] 183 mg/dL High 74 - 99 mg/dL [facility] Comment on above: The [place] Diabete s Association (ADA) provides guidance for cutoff values for fasting glucose and random glucose. The ADA defines fasting as no caloric intake for at least 8 hours. Fasting plasma glucose results between 100 to 125 mg/dL indicate increased risk for diabetes (prediabetes). Fasting plasma glucose results greater than or equal to 126 mg/dL meet the criteria for diagnosis of diabetes. In the absence of unequivocal hyperglycemia, results should be confirmed by repeat testing. In a patient with classic symptoms of hyperglycemia or hyperglycemic crisis, random plasma glucose results greater than or equal to 200 mg/dL meet the criteria for diagnosis of diabetes. Reference: Standards of Medical Care in Diabetes 2016, [place] [employer]. Diabetes Care. 2016.39(Suppl 1). Interpretation and review of laboratory results Abnormal [facility] Potassium [Moles/Vol] 4.6 mmol/L 3.7 - 5.1 mmol/L [facility] Protein [Mass/Vol] 6.9 g/dL 6.3 - 8.0 g/dL [facility] Sodium [Moles/Vol] 137 mmol/L 136 - 144 mmol/L [facility] Urea nitrogen [Mass/Vol] 19 mg/dL 7 - 21 mg/dL [facility] Comprehensive metabolic 2000 panelon 01-13-2024 Albumin [Mass/Vol] 4.0 g/dL Normal 3.9-4.9 [facility] Comment on above: Order Comment: Speci men Type: BLOOD SPECIMENOrdering Facility: [facility] Address: [address] [place] [address] Performed By: #### 2 4323-8, ####[facility] [id number] [place] [address] [place] ALP [Catalytic activity/Vol] 100 U/L Normal 34-123 [facility] Comment on above: Order Comment: Speci men Type: BLOOD SPECIMENOrdering Facility: [facility] Address: [address] [place] [address] Performed By: #### 2 4323-8, ####[facility] [id number] [place] [address] [place] ALT [Catalytic activity/Vol] 10 U/L Normal 7-38 [facility] Comment on above: Order Comment: Speci men Type: BLOOD SPECIMENOrdering Facility: [facility] Address: [address] [place] [address] Performed By: #### 2 4323-8, ####[facility] [id number] [place] [address] [place] Anion gap [Moles/Vol] 10 mmol/L Normal 8-15 [facility] Comment on above: Order Comment: Speci men Type: BLOOD SPECIMENOrdering Facility: [facility] Address: [address] [place] [address] Performed By: #### 2 4323-8, ####[facility] MILLTOWNCLIA [id number] [place] [address] [place] AST [Catalytic activity/Vol] 10 U/L Low 13-35 [facility] Comment on above: Order Comment: Speci men Type: BLOOD SPECIMENOrdering Facility: [facility] Address: [address] [place] [address] Performed By: #### 2 4323-8, ####[facility] MILLWNCLIA [id number] [place] [address] [place] Bilirubin [Mass/Vol] 0.4 mg/dL Normal 0.2-1.3 [facility] Comment on above: Order Comment: Speci men Type: BLOOD SPECIMENOrdering Facility: [facility] Address: [address] [place] [address] Performed By: #### 2 4323-8, ####[facility] [id number] [place] [address] [place] Calcium [Mass/Vol] 9.5 mg/dL Normal 8.5-10.2 [facility] Comment on above: Order Comment: Speci men Type: BLOOD SPECIMENOrdering Facility: [facility] Address: [address] [place] [address] Performed By: #### 2 4323-8, ####[facility] [id number] [place] [address] [place] Chloride [Moles/Vol] 98 mmol/L Normal 98-107 [facility] Comment on above: Order Comment: Speci men Type: BLOOD SPECIMENOrdering Facility: [facility] Address: [address] [place] [address] Performed By: #### 2 4323-8, ####[facility] MILLWNCLIA [id number] [place] [address] [place] CO2 [Moles/Vol] 29 mmol/L Normal 22-30 [facility] Comment on above: Order Comment: Guera doll Type: BLOOD SPECIMENOrdering Facility: [facility] Address: [address] [place] [address] Performed By: #### 2 4323-8, 22765-8 ####[facility] [id number] [place] [address] [place] Creatinine [Mass/Vol] 1.00 mg/dL High 0.58-0.96 [facility] Comment on above: Order Comment: Guera men Type: BLOOD SPECIMENOrdering Facility: [facility] Address: [address] [place] [address] Performed By: #### 2 4323-8, ####[facility] [id number] [place] [address] [place] Creatinine and Glomerular filtration rate.predicted panel (S/P/Bld) 58 mL/min/1.73m??? Low >=60 [facility] Comment on above: Order Comment: Guera doll Type: BLOOD SPECIMENOrdering Facility: [facility] Address: [address] [place] [address] Result Comment: Judith mated Glomerular Filtration Rate (eGFR) is calculated using the 2020 CKD-EPI creatinine equation. This equation utilizes serum creatinine, sex, and age as parameters. The creatinine assay has traceable calibration to isotope dilution-mass spectrometry. Refer to KDIGO guidelines for clinical interpretation. In patients with unstable renal function, e.g. those with acute kidney injury, the eGFR may not accurately reflect actual GFR. Performed By: #### 2 4323-8, ####[facility] [id number] [place] [address] [place] Glucose [Mass/Vol] 183 mg/dL High 74-99 [facility] Comment on above: Order Comment: Speci men Type: BLOOD SPECIMENOrdering Facility: [facility] Address: [address] [place], [place] [id number] Result Comment: The [place] Diabetes Association (ADA) provides guidance for cutoff values for fasting glucose and random glucose. The ADA defines fasting as no caloric intake for at least 8 hours. Fasting plasma glucose results between 100 to 125 mg/dL indicate increased risk for diabetes (prediabetes).Fasting plasma glucose results greater than or equal to 126 mg/dL meet the criteria for diagnosis of diabetes. In the absence of unequivocal hyperglycemia, results should be confirmed by repeat testing. In a patient with classic symptoms of hyperglycemia or hyperglycemic crisis, random plasma glucose results greater than or equal to 200 mg/dL meet the criteria for diagnosis of diabetes.Reference: Standards of Medical Care in Diabetes 2016, [place] [employer]. Diabetes Care. 2016.39(Suppl 1). Performed By: #### 2 4323-8, 01952-3 ####[facility] [id number] [place] [address] [place] Potassium [Moles/Vol] 4.6 mmol/L Normal 3.7-5.1 [facility] Comment on above: Order Comment: Guera doll Type: BLOOD SPECIMENOrdering Facility: [facility] Address: [address] [place] [address] Performed By: #### 2 4323-8, ####[facility] HE[facility] SERVICESWDAQUAN [id number] [place] [address] [place] Protein [Mass/Vol] 6.9 g/dL Normal 6.3-8.0 [facility] Comment on above: Order Comment: Guera doll Type: BLOOD SPECIMENOrdering Facility: [facility] Address: [address] [place], [place] [id number] Performed By: #### 2 4323-8, ####[facility] HE[facility] SERVICESWANAMLIA [id number] [place] [address] [place] Sodium [Moles/Vol] 137 mmol/L Normal 136-144 [facility] Comment on above: Order Comment: Speci men Type: BLOOD SPECIMENOrdering Facility: [facility] Address: [address] [place] [address] Performed By: #### 2 4323-8, ####[facility] MILLWNCLIA [id number] [place] [address] [place] Urea nitrogen [Mass/Vol] 19 mg/dL Normal 7-21 [facility] Comment on above: Order Comment: Speci men Type: BLOOD SPECIMENOrdering Facility: [facility] Address: [address] [place] [address] Performed By: #### 2 4323-8, ####[facility] MILLINDIANA [facility] HOSPITALLIA [id number] [place] [address] [place] MAGNESIUMon 01-13-2024 Magnesium [Mass/Vol] 1.4 mg/dL Low 1.7 - 2 .3 mg/dL [facility] Magnesium SerPl-mCncon 01-12 Magnesium [Mass/Vol] 1.4 mg/dL Low 1.7-2.3 [facility] Comment on above: Order Comment: Speci men Type: BLOOD SPECIMENOrdering Facility: [facility] Address: [address] [place] [address] Performed By: #### 2 4323-8, ####[facility] MILLWKYLIA [id number] [place] [address] [place] Magnesium [Mass/Vol]on 01-12 Interpretation and review of laboratory results Abnormal [facility] CNPNon 01-12-2024 CNPN Normal [facility] BRCon 01-06-2024 RC Normal [facility] Comment on above: Result Comment: [id number] AN RC READY [id number] AN RC ISSUED 01/07/24 0852 Performed By: #### L 400.0001 #### [facility] [address] [place], [place], [address] Result Comment: [id number] AN RC TRANSFUSED 01/07/24 1111 [id number] AN RC TRANSFUSED 01/07/24 0852 Performed By: #### L 501.080 #### [facility] [address] [place], [place], [id number] Type AND Screenon 01-06-2024 Ab SCREEN GEL Negative Normal [facility] Comment on above: Order Comment: PRETR ANSFUSION HGB =6.7 HCT [facility] 0830NYANEMIA Performed By: #### L 501.080 #### [facility] [address] [place], [place], [id number] ABO and Rh group Nom (Bld) Blood group A Rh(D) negative Normal [facility] Comment on above: Order Comment: PRETR ANSFUSION HGB =6.7 HCT [facility] 0830NYANEMIA Performed By: #### L 501.5600 #### [facility] [address] [place], [place], [id number] Performed By: #### L 501.080 #### [facility] [address] [place], [place], [id number] CBC W Auto Differential pane l (Bld)on 01-05-2024 Basophils (Bld) [#/Vol] [facility] Basophils/100 WBC (Bld) 0.2 % C [facility] Differential cell count method Nom (Bld) Auto [facility] Eosinophils (Bld) [#/Vol] 0.04 10*3/uL [facility] Eosinophils/100 WBC (Bld) 0.8 % [facility] Erythrocyte distribution width (RBC) [Ratio] 16.2 % High 11.5 - 15.0 % [facility] Hematocrit (Bld) [Volume fraction] 19.8 % Low 36.0 - 46.0 % [facility] Hemoglobin (Bld) [Mass/Vol] 6.7 g/dL Low 11.5 - 15.5 g/dL [facility] Immature granulocytes (Bld) [#/Vol] [facility] Immature granulocytes/100 WBC (Bld) 0.4 % [facility] Interpretation and review of laboratory results Abnormal [facility] Lymphocytes (Bld) [#/Vol] 0.74 10*3/uL Low [facility] Lymphocytes/100 WBC (Bld) 14.3 % [facility] MCH (RBC) [Entitic mass] 32.2 pg 26.0 - 34.0 pg [facility] MCHC (RBC) [Mass/Vol] 33.8 g/dL 30.5 - 36.0 g/dL [facility] MCV (RBC) [Entitic vol] 95.2 fL 80.0 - 100.0 fL [facility] Monocytes (Bld) [#/Vol] 0.33 10*3/uL [facility] Monocytes/100 WBC (Bld) 6.4 % C [facility] Neutrophils (Bld) [#/Vol] 4.04 10*3/uL [facility] Neutrophils/100 WBC (Bld) 77.9 % [facility] Nucleated RBC (Bld) [#/Vol] [facility] Nucleated RBC/100 WBC (Bld) [Ratio] 0.0 % /100 WBC [facility] Platelet mean volume (Bld) [Entitic vol] 10.7 fL 9.0 - 12.7 fL [facility] Platelets (Bld) [#/Vol] 42 10*3/uL Low C [facility] Comment on above: No clot detected. RBC (Bld) [#/Vol] 2.08 10*6/uL Low 3.90 - 5.2 0 m/uL [facility] WBC (Bld) [#/Vol] 5.18 10*3/uL [facility] Comprehensive metabolic 2000 panelOrdered By: Anai Arroyo on 01-05-2024 Albumin [Mass/Vol] 3.7 g/dL Low 3.9 - 4.9 g/dL [facility] ALP [Catalytic activity/Vol] 83 U/L 34 - 123 U/L [facility] ALT [Catalytic activity/Vol] 10 U/L 7 - 38 U/L [facility] Anion gap [Moles/Vol] 12 mmol/L 8 - 15 mmol/L [facility] AST [Catalytic activity/Vol] 12 U/L Low 13 - 35 U/L [facility] Bilirubin [Mass/Vol] 0.4 mg/dL 0.2 - 1 .3 mg/dL [facility] Calcium [Mass/Vol] 8.6 mg/dL 8.5 - 10. 2 mg/dL [facility] Chloride [Moles/Vol] 101 mmol/L 98 - 10 7 mmol/L [facility] CO2 [Moles/Vol] 24 mmol/L 22 - 30 mmol/L [facility] Creatinine [Mass/Vol] 0.96 mg/dL 0.58 - 0.96 mg/dL [facility] GFR/1.73 sq M.predicted among non-blacks MDRD (S/P/Bld) [Vol rate/Area] 61 mL/min/{1.73_m2} - PINF [facility] Comment on above: Estimated Glomerular Filtration Rate (eGFR) is calculated using the 2020 CKD-EPI creatinine equation. This equation utilizes serum creatinine, sex, and age as parameters. The creatinine assay has traceable calibration to isotope dilution-mass spectrometry. Refer to KDIGO guidelines for clinical interpretation. In patients with unstable renal function, e.g. those with acute kidney injury, the eGFR may not accurately reflect actual GFR. Glucose [Mass/Vol] 206 mg/dL High 74 - 99 mg/dL [facility] Comment on above: The [place] Diabete s Association (ADA) provides guidance for cutoff values for fasting glucose and random glucose. The ADA defines fasting as no caloric intake for at least 8 hours. Fasting plasma glucose results between 100 to 125 mg/dL indicate increased risk for diabetes (prediabetes). Fasting plasma glucose results greater than or equal to 126 mg/dL meet the criteria for diagnosis of diabetes. In the absence of unequivocal hyperglycemia, results should be confirmed by repeat testing. In a patient with classic symptoms of hyperglycemia or hyperglycemic crisis, random plasma glucose results greater than or equal to 200 mg/dL meet the criteria for diagnosis of diabetes. Reference: Standards of Medical Care in Diabetes 2016, [place] Diabetes [employer]. Diabetes Care. 2016.39(Suppl 1). Interpretation and review of laboratory results Abnormal [facility] Potassium [Moles/Vol] 4.5 mmol/L 3.7 - 5.1 mmol/L [facility] Protein [Mass/Vol] 6.2 g/dL Low 6.3 - 8.0 g/dL [facility] Sodium [Moles/Vol] 137 mmol/L 136 - 144 mmol/L [facility] Urea nitrogen [Mass/Vol] 20 mg/dL 7 - 21 mg/dL [facility] MAGNESIUMon 01-05-2024 Magnesium [Mass/Vol] 1.2 mg/dL Low 1.7 - 2 .3 mg/dL [facility] Magnesium [Mass/Vol]on 01-04 Interpretation and review of laboratory results Abnormal [facility] CBC W Auto Differential pane l (Bld)on 12-16-2023 Basophils (Bld) [#/Vol] [facility] Basophils/100 WBC (Bld) 0.2 % [facility] Differential cell count method Nom (Bld) Auto [facility] Eosinophils (Bld) [#/Vol] 0.07 10*3/uL [facility] Eosinophils/100 WBC (Bld) 1.7 % [facility] Erythrocyte distribution width (RBC) [Ratio] 16.0 % High 11.5 - 15.0 % [facility] Hematocrit (Bld) [Volume fraction] 23.4 % Low 36.0 - 46.0 % [facility] Hemoglobin (Bld) [Mass/Vol] 7.6 g/dL Low 11.5 - 15.5 g/dL [facility] Immature granulocytes (Bld) [#/Vol] [facility] Immature granulocytes/100 WBC (Bld) 0.2 % [facility] Interpretation and review of laboratory results Abnormal [facility] Lymphocytes (Bld) [#/Vol] 0.87 10*3/uL Low [facility] Lymphocytes/100 WBC (Bld) 21.6 % [facility] MCH (RBC) [Entitic mass] 31.0 pg 26.0 - 34.0 pg [facility] MCHC (RBC) [Mass/Vol] 32.5 g/dL 30.5 - 36.0 g/dL [facility] MCV (RBC) [Entitic vol] 95.5 fL 80.0 - 100.0 fL [facility] Monocytes (Bld) [#/Vol] 0.44 10*3/uL [facility] Monocytes/100 WBC (Bld) 10.9 % C [facility] Neutrophils (Bld) [#/Vol] 2.63 10*3/uL [facility] Neutrophils/100 WBC (Bld) 65.4 % [facility] Nucleated RBC (Bld) [#/Vol] [facility] Nucleated RBC/100 WBC (Bld) [Ratio] 0.0 % /100 WBC [facility] Platelet mean volume (Bld) [Entitic vol] 9.2 fL 9.0 - 12.7 fL [facility] Platelets (Bld) [#/Vol] 146 10*3/uL Low [facility] RBC (Bld) [#/Vol] 2.45 10*6/uL Low 3.90 - 5.2 0 m/uL [facility] WBC (Bld) [#/Vol] 4.03 10*3/uL [facility] CBC W Auto Differential pane l (Bld)on 12-13-2023 Basophils (Bld) [#/Vol] [facility] Basophils/100 WBC (Bld) 0.2 % [facility] Differential cell count method Nom (Bld) Auto [facility] Eosinophils (Bld) [#/Vol] 0.09 10*3/uL [facility] Eosinophils/100 WBC (Bld) 2.2 % [facility] Erythrocyte distribution width (RBC) [Ratio] 15.6 % High 11.5 - 15.0 % [facility] Hematocrit (Bld) [Volume fraction] 22.9 % Low 36.0 - 46.0 % [facility] Hemoglobin (Bld) [Mass/Vol] 7.7 g/dL Low 11.5 - 15.5 g/dL [facility] Immature granulocytes (Bld) [#/Vol] [facility] Immature granulocytes/100 WBC (Bld) 0.2 % [facility] Interpretation and review of laboratory results Abnormal [facility] Lymphocytes (Bld) [#/Vol] 0.76 10*3/uL Low [facility] Lymphocytes/100 WBC (Bld) 18.2 % [facility] MCH (RBC) [Entitic mass] 30.8 pg 26.0 - 34.0 pg [facility] MCHC (RBC) [Mass/Vol] 33.6 g/dL 30.5 - 36.0 g/dL [facility] MCV (RBC) [Entitic vol] 91.6 fL 80.0 - 100.0 fL [facility] Monocytes (Bld) [#/Vol] 0.32 10*3/uL [facility] Monocytes/100 WBC (Bld) 7.7 % C [facility] Neutrophils (Bld) [#/Vol] 2.99 10*3/uL [facility] Neutrophils/100 WBC (Bld) 71.5 % [facility] Nucleated RBC (Bld) [#/Vol] NINF [facility] Nucleated RBC/100 WBC (Bld) [Ratio] 0.0 % /100 WBC [facility] Platelet mean volume (Bld) [Entitic vol] 10.3 fL 9.0 - 12.7 fL [facility] Platelets (Bld) [#/Vol] 100 10*3/uL Low [facility] Comment on above: No clot detected. RBC (Bld) [#/Vol] 2.50 10*6/uL Low 3.90 - 5.2 0 m/uL [facility] WBC (Bld) [#/Vol] 4.18 10*3/uL [facility] Comprehensive metabolic 2000 panelOrdered By: Tatyana Frost on 12-13-2023 Albumin [Mass/Vol] 3.6 g/dL Low 3.9 - 4.9 g/dL [facility] ALP [Catalytic activity/Vol] 69 U/L 34 - 123 U/L [facility] ALT [Catalytic activity/Vol] 13 U/L 7 - 38 U/L [facility] Anion gap [Moles/Vol] 12 mmol/L 8 - 15 mmol/L [facility] AST [Catalytic activity/Vol] 12 U/L Low 13 - 35 U/L [facility] Bilirubin [Mass/Vol] 0.5 mg/dL 0.2 - 1 .3 mg/dL [facility] Calcium [Mass/Vol] 8.9 mg/dL 8.5 - 10. 2 mg/dL [facility] Chloride [Moles/Vol] 95 mmol/L Low 98 - 10 7 mmol/L [facility] CO2 [Moles/Vol] 28 mmol/L 22 - 30 mmol/L [facility] Creatinine [Mass/Vol] 1.23 mg/dL High 0.58 - 0.96 mg/dL [facility] GFR/1.73 sq M.predicted among non-blacks MDRD (S/P/Bld) [Vol rate/Area] 45 mL/min/{1.73_m2} Low - PINF [facility] Comment on above: Estimated Glomerular Filtration Rate (eGFR) is calculated using the 2020 CKD-EPI creatinine equation. This equation utilizes serum creatinine, sex, and age as parameters. The creatinine assay has traceable calibration to isotope dilution-mass spectrometry. Refer to KDIGO guidelines for clinical interpretation. In patients with unstable renal function, e.g. those with acute kidney injury, the eGFR may not accurately reflect actual GFR. Glucose [Mass/Vol] 204 mg/dL High 74 - 99 mg/dL [facility] Comment on above: The [place] Diabete [place] Association (ADA) provides guidance for cutoff values for fasting glucose and random glucose. The ADA defines fasting as no caloric intake for at least 8 hours. Fasting plasma glucose results between 100 to 125 mg/dL indicate increased risk for diabetes (prediabetes). Fasting plasma glucose results greater than or equal to 126 mg/dL meet the criteria for diagnosis of diabetes. In the absence of unequivocal hyperglycemia, results should be confirmed by repeat testing. In a patient with classic symptoms of hyperglycemia or hyperglycemic crisis, random plasma glucose results greater than or equal to 200 mg/dL meet the criteria for diagnosis of diabetes. Reference: Standards of Medical Care in Diabetes 2016, [place] [employer]. Diabetes Care. 2016.39(Suppl 1). Potassium [Moles/Vol] 4.5 mmol/L 3.7 - 5.1 mmol/L [facility] Protein [Mass/Vol] 6.3 g/dL 6.3 - 8.0 g/dL [facility] Sodium [Moles/Vol] 135 mmol/L Low 136 - 144 mmol/L [facility] Urea nitrogen [Mass/Vol] 18 mg/dL 7 - 21 mg/dL [facility] MAGNESIUMon 12-13-2023 Magnesium [Mass/Vol] 1.2 mg/dL Low 1.7 - 2 .3 mg/dL [facility] No Panel InformationOrdered By: Tatyana Frost on 12-13-2023 Interpretation and review of laboratory results Abnormal [facility] CBC W Auto Differential pane l (Bld)on 11-24-2023 Basophils (Bld) [#/Vol] 0.05 10*3/uL NINF [facility] Basophils/100 WBC (Bld) 0.6 % C [facility] Differential cell count method Nom (Bld) Auto [facility] Eosinophils (Bld) [#/Vol] 0.32 10*3/uL [facility] Eosinophils/100 WBC (Bld) 4.0 % [facility] Erythrocyte distribution width (RBC) [Ratio] 15.3 % High 11.5 - 15.0 % [facility] Hematocrit (Bld) [Volume fraction] 29.2 % Low 36.0 - 46.0 % [facility] Hemoglobin (Bld) [Mass/Vol] 9.6 g/dL Low 11.5 - 15.5 g/dL [facility] Immature granulocytes (Bld) [#/Vol] [facility] Immature granulocytes/100 WBC (Bld) 0.3 % [facility] Interpretation and review of laboratory results Abnormal [facility] Lymphocytes (Bld) [#/Vol] 1.19 10*3/uL [facility] Lymphocytes/100 WBC (Bld) 14.9 % [facility] MCH (RBC) [Entitic mass] 30.0 pg 26.0 - 34.0 pg [facility] MCHC (RBC) [Mass/Vol] 32.9 g/dL 30.5 - 36.0 g/dL [facility] MCV (RBC) [Entitic vol] 91.3 fL 80.0 - 100.0 fL [facility] Monocytes (Bld) [#/Vol] 0.66 10*3/uL [facility] Monocytes/100 WBC (Bld) 8.3 % C [facility] Neutrophils (Bld) [#/Vol] 5.75 10*3/uL [facility] Neutrophils/100 WBC (Bld) 71.9 % [facility] Nucleated RBC (Bld) [#/Vol] [facility] Nucleated RBC/100 WBC (Bld) [Ratio] 0.0 % /100 WBC [facility] Platelet mean volume (Bld) [Entitic vol] 9.2 fL 9.0 - 12.7 fL [facility] Platelets (Bld) [#/Vol] 154 10*3/uL [facility] RBC (Bld) [#/Vol] 3.20 10*6/uL Low 3.90 - 5.2 0 m/uL [facility] WBC (Bld) [#/Vol] 7.99 10*3/uL [facility] Comprehensive metabolic 2000 panelOrdered By: Anai Arroyo on 11-24-2023 Albumin [Mass/Vol] 3.8 g/dL Low 3.9 - 4.9 g/dL [facility] ALP [Catalytic activity/Vol] 64 U/L 34 - 123 U/L [facility] ALT [Catalytic activity/Vol] 13 U/L 7 - 38 U/L [facility] Anion gap [Moles/Vol] 11 mmol/L 8 - 15 mmol/L [facility] AST [Catalytic activity/Vol] 12 U/L Low 13 - 35 U/L [facility] Bilirubin [Mass/Vol] 0.4 mg/dL 0.2 - 1 .3 mg/dL [facility] Calcium [Mass/Vol] 9.5 mg/dL 8.5 - 10. 2 mg/dL [facility] Chloride [Moles/Vol] 98 mmol/L 98 - 10 7 mmol/L [facility] CO2 [Moles/Vol] 29 mmol/L 22 - 30 mmol/L [facility] Creatinine [Mass/Vol] 1.31 mg/dL High 0.58 - 0.96 mg/dL [facility] GFR/1.73 sq M.predicted among non-blacks MDRD (S/P/Bld) [Vol rate/Area] 42 mL/min/{1.73_m2} Low - PINF [facility] Comment on above: Estimated Glomerular Filtration Rate (eGFR) is calculated using the 2020 CKD-EPI creatinine equation. This equation utilizes serum creatinine, sex, and age as parameters. The creatinine assay has traceable calibration to isotope dilution-mass spectrometry. Refer to KDIGO guidelines for clinical interpretation. In patients with unstable renal function, e.g. those with acute kidney injury, the eGFR may not accurately reflect actual GFR. Glucose [Mass/Vol] 223 mg/dL High 74 - 99 mg/dL [facility] Comment on above: The [place] [employer] Association (ADA) provides guidance for cutoff values for fasting glucose and random glucose. The ADA defines fasting as no caloric intake for at least 8 hours. Fasting plasma glucose results between 100 to 125 mg/dL indicate increased risk for diabetes (prediabetes). Fasting plasma glucose results greater than or equal to 126 mg/dL meet the criteria for diagnosis of diabetes. In the absence of unequivocal hyperglycemia, results should be confirmed by repeat testing. In a patient with classic symptoms of hyperglycemia or hyperglycemic crisis, random plasma glucose results greater than or equal to 200 mg/dL meet the criteria for diagnosis of diabetes. Reference: Standards of Medical Care in Diabetes 2016, [place] [employer]. Diabetes Care. 2016.39(Suppl 1). Interpretation and review of laboratory results Abnormal [facility] Potassium [Moles/Vol] 4.5 mmol/L 3.7 - 5.1 mmol/L [facility] Protein [Mass/Vol] 6.4 g/dL 6.3 - 8.0 g/dL [facility] Sodium [Moles/Vol] 138 mmol/L 136 - 144 mmol/L [facility] Urea nitrogen [Mass/Vol] 29 mg/dL High 7 - 21 mg/dL [facility] Comprehensive metabolic 2000 panelOrdered By: Zoila Rodriguez on 11-19-2023 Albumin [Mass/Vol] 3.8 g/dL Low 3.9 - 4.9 g/dL [facility] ALP [Catalytic activity/Vol] 66 U/L 34 - 123 U/L [facility] ALT [Catalytic activity/Vol] 14 U/L 7 - 38 U/L [facility] Anion gap [Moles/Vol] 11 mmol/L 8 - 15 mmol/L [facility] AST [Catalytic activity/Vol] 16 U/L 13 - 35 U/L [facility] Bilirubin [Mass/Vol] 0.3 mg/dL 0.2 - 1 .3 mg/dL [facility] Calcium [Mass/Vol] 9.4 mg/dL 8.5 - 10. 2 mg/dL [facility] Chloride [Moles/Vol] 99 mmol/L 98 - 10 7 mmol/L [facility] CO2 [Moles/Vol] 28 mmol/L 22 - 30 mmol/L [facility] Creatinine [Mass/Vol] 0.99 mg/dL High 0.58 - 0.96 mg/dL [facility] GFR/1.73 sq M.predicted among non-blacks MDRD (S/P/Bld) [Vol rate/Area] 59 mL/min/{1.73_m2} Low - PINF [facility] Comment on above: Estimated Glomerular Filtration Rate (eGFR) is calculated using the 2020 CKD-EPI creatinine equation. This equation utilizes serum creatinine, sex, and age as parameters. The creatinine assay has traceable calibration to isotope dilution-mass spectrometry. Refer to KDIGO guidelines for clinical interpretation. In patients with unstable renal function, e.g. those with acute kidney injury, the eGFR may not accurately reflect actual GFR. Glucose [Mass/Vol] 151 mg/dL High 74 - 99 mg/dL [facility] Comment on above: The [place] [employer] (ADA) provides guidance for cutoff values for fasting glucose and random glucose. The ADA defines fasting as no caloric intake for at least 8 hours. Fasting plasma glucose results between 100 to 125 mg/dL indicate increased risk for diabetes (prediabetes). Fasting plasma glucose results greater than or equal to 126 mg/dL meet the criteria for diagnosis of diabetes. In the absence of unequivocal hyperglycemia, results should be confirmed by repeat testing. In a patient with classic symptoms of hyperglycemia or hyperglycemic crisis, random plasma glucose results greater than or equal to 200 mg/dL meet the criteria for diagnosis of diabetes. Reference: Standards of Medical Care in Diabetes 2016, [place] [employer]. Diabetes Care. 2016.39(Suppl 1). Interpretation and review of laboratory results Abnormal [facility] Potassium [Moles/Vol] 5.1 mmol/L 3.7 - 5.1 mmol/L [facility] Protein [Mass/Vol] 6.4 g/dL 6.3 - 8.0 g/dL [facility] Sodium [Moles/Vol] 138 mmol/L 136 - 144 mmol/L [facility] Urea nitrogen [Mass/Vol] 22 mg/dL High 7 - 21 mg/dL [facility] Laboratory - Hematology and Cell countson 11-19-2023 Reticulocytes (Bld) [#/Vol] 0.062 10*3/uL [facility] Reticulocytes (Bld) [#/Vol]o n 11-19-2023 Interpretation and review of laboratory results Normal [facility] Reticulocytes/100 RBC (Bld) 1.9 % 0.4 - 2.0 % [facility] GLUCOSE, BLOOD (POC)on 11-08 Glucose [Mass/Vol] 83 mg/dL 74 - 99 mg/dL [facility] Comment on above: Location:[facility], [address] [place] [address], [address] The Accu-Chek Inform II glucose meter has not been approved for testing on patients receiving intensive medical intervention or therapy and results from this point of care glucose test should not be used for patient management decisions in these cases. Inaccurate results may also occur from other interfering factors, such as N-acetylcysteine (blood concentrations of greater than 5mg/dL), galactose, extremes of hematocrit (<10 or >65), or high doses of ascorbic acid (vitamin C) greater than 3mg/dL. Consider alternate testing mechanisms (e.g. core lab, blood gas instrument) in the above situations. [facility] PET/CT SKULL-THIGH INITon 11-09-2023 NM PET/CT SKULL-THIGH INIT * * *Final Report* * * DATE OF EXAM: Nov 09 2023 9:18AM MDP 0060 - NM PET/CT SKULL-THIGH INIT / PROCEDURE REASON: R91.8-Lung nodules * * * * Physician Interpretation * * * * EXAMINATION: BODY FDG PET-CT CLINICAL HISTORY: Endometrial cancer EXAM CATEGORY: Initial treatment strategy. TECHNIQUE: Radiopharmaceutical was administered intravenously followed by PET imaging from the eyes to thighs. Free breathing, low dose CT of the same body region was acquired without IV contrast for attenuation correction and anatomic localization. Unenhanced imaging is limited for the evaluation of some pathology and the acquired CT was not designed to produce diagnostic CT scan quality. Physiologic/non-pathologic uptake in some body regions could confound or obscure some pathology. * CT Dose-Length Product (DLP): 654 mGy*cm * CT Dose Reduction Employed: Yes * Blood glucose: 83 mg/dL * Injected activity: 19.8 mCi * Uptake Time: 58 minutes * Radiopharmaceutical: A75-Kmxhwysoprjrvhfnps (FDG) COMPARISON: No previous FDG PET/CT available CORRELATION: CT chest 10/27/2023, CT abdomen/pelvis 08/10/2023 RESULT: REFERENCES: FDG uptake is used as a surrogate marker for glucose metabolism. All reported standardized uptake values represent maximum SUV (SUVmax) per body weight, unless otherwise specified. SUV reference values, as follows: * Blood Pool (Descending Aorta): SUVmax 2.8 * Background Liver: SUVmax 2.8; SUVmean 2.4 Localizer Images: No additional findings. HEAD AND NECK: Head: No radiotracer avid lesion or mass effect in the imaged intracranial compartment. Aerodigestive Tract: No radiotracer avid lesion. Lymph Nodes: No radiotracer avid lymphadenopathy. Neck Soft Tissues: No radiotracer avid thyroid nodule. CHEST: Lungs and Pleura: An anterior right upper lobe nodule measures SUV max 5.6, 1.0 x 0.8 cm (3:92). Other, smaller bilateral pulmonary nodules are below PET resolution. A pleural-based nodule in the posterior right lower lobe measures SUV max 12.1, 2.4 x 1.5 cm (3:162). Small right pleural effusion with mild uptake. Lymph Nodes: No radiotracer avid lymphadenopathy. Calcified intrathoracic lymph node(s) are likely sequela of an old granulomatous process. Mediastinum: No radiotracer avid mass. Cardiovascular: Blood pool activity. No pericardial effusion. Normal heart size. Thoracic aortic and coronary artery calcifications. A left chest wall port tip terminates in the right atrium. Chest Wall: No radiotracer avid soft tissue lesion. ABDOMEN AND PELVIS: Hepatobiliary: Focal uptake localizing to subtle hypoattenuating lesion in the posterior right hepatic lobe measures SUV max 7.7 (3:171). Cholecystectomy. Spleen: No radiotracer avid lesion. No splenomegaly. Pancreas: No radiotracer avid lesion. Adrenals: No radiotracer avid nodule. Urinary Tract: Physiologic radiotracer excretion in the renal collecting systems and urinary bladder. No hydronephrosis. Photopenic presumed renal cyst(s). GI Tract: Intense activity throughout the large bowel is compatible with metformin use. No bowel dilation. Peritoneum: Scattered FDG avid omental nodularity and FDG avid nodularity along the left pelvic peritoneal reflection. Examples include: * Left lower quadrant omental nodule, SUV max 9.9, 1.9 x 1.1 cm (3:241) * Lower abdominal omental nodule to the right of midline, SUV max 10.9, 1.1 x 0.8 cm (3:247) * Nodularity along the left pelvic peritoneal reflection, SUV max 9.4, 1.7 x 1.2 cm (3:286) Lymph Nodes: No radiotracer avid lymphadenopathy. Vasculature: Blood pool activity. Vascular calcifications without an abdominal aortic aneurysm. Pelvic Organs: No radiotracer avid lesion. Hysterectomy. MUSCULOSKELETAL: Bones: No radiotracer avid lesion. No lytic or sclerotic lesion. Degenerative changes. Soft Tissues: Focal uptake localizing to asymmetric prominence of the right psoas at the level of L1-L2 measures SUV max 6.0 (3:196). FDG avid skin thickening along the inner proximal left thigh measures SUV max 5.4. IMPRESSION: HEAD/NECK: * No metabolically active disease. CHEST: * FDG avid anterior right upper lobe pulmonary nodule. Other, smaller bilateral pulmonary nodules are below PET resolution, presumed metastatic. * FDG avid pleural-based metastatic nodule in the posterior right lower lobe. * Small right pleural effusion with mild uptake, presumed malignant. ABDOMEN/PELVIS: * Scattered FDG avid omental nodularity and FDG avid nodularity along the left pelvic peritoneal reflection, compatible with recurrent/metastatic disease. * FDG avid subtle hypoattenuating lesion in the posterior right hepatic lobe, presumed metastasis. MUSCULOSKELETAL: * Focal uptake localizing to asymmetric prominence of the right psoas at the level of L1-L2, presumed intramuscular metastatic deposit. * FDG avid skin thickening along the inner proximal (more content not included)... Normal [facility] PET+CT Guidance for localiza tion of tumor of Skull base to mid-thigh-- W 18F-FDG Alfonso 11-09-2023 IMPRESSION: HEAD/NECK: * No metabolically active disease. CHEST: * FDG avid anterior right upper lobe pulmonary nodule. Other, smaller bilateral pulmonary nodules are below PET resolution, presumed metastatic. * FDG avid pleural-based metastatic nodule in the posterior right lower lobe. * Small right pleural effusion with mild uptake, presumed malignant. ABDOMEN/PELVIS: * Scattered FDG avid omental nodularity and FDG avid nodularity along the left pelvic peritoneal reflection, compatible with recurrent/metastatic disease. * FDG avid subtle hypoattenuating lesion in the posterior right hepatic lobe, presumed metastasis. MUSCULOSKELETAL: * Focal uptake localizing to asymmetric prominence of the right psoas at the level of L1-L2, presumed intramuscular metastatic deposit. * FDG avid skin thickening along the inner proximal left thigh, likely inflammatory. This can be correlated with physical exam. * No FDG avid osseous lesion. Printer Floor Covering Assistant: PSCB Transcribe Date/Time: Nov 09 2023 5:16P Dictated by : PAMELA PIEDRA MD This examination was interpreted and the report reviewed and electronically signed by: PAMELA PIEDRA MD on Nov 09 2023 6:09PM [facility] * * *Final Report* * * DATE OF EXAM: Nov 09 2023 9:18AM MDP 0060 - NM PET/CT SKULL-THIGH INIT / PROCEDURE REASON: R91.8-Lung nodules * * * * Physician Interpretation * * * * EXAMINATION: BODY FDG PET-CT CLINICAL HISTORY: Endometrial cancer EXAM CATEGORY: Initial treatment strategy. TECHNIQUE: Radiopharmaceutical was administered intravenously followed by PET imaging from the eyes to thighs. Free breathing, low dose CT of the same body region was acquired without IV contrast for attenuation correction and anatomic localization. Unenhanced imaging is limited for the evaluation of some pathology and the acquired CT was not designed to produce diagnostic CT scan quality. Physiologic/non-pathologic uptake in some body regions could confound or obscure some pathology. * CT Dose-Length Product (DLP): 654 mGy*cm * CT Dose Reduction Employed: Yes * Blood glucose: 83 mg/dL * Injected activity: 19.8 mCi * Uptake Time: 58 minutes * Radiopharmaceutical: D32-Ivviwdrveeggybjpig (FDG) COMPARISON: No previous FDG PET/CT available CORRELATION: CT chest 10/27/2023, CT abdomen/pelvis 08/10/2023 RESULT: REFERENCES: FDG uptake is used as a surrogate marker for glucose metabolism. All reported standardized uptake values represent maximum SUV (SUVmax) per body weight, unless otherwise specified. SUV reference values, as follows: * Blood Pool (Descending Aorta): SUVmax 2.8 * Background Liver: SUVmax 2.8; SUVmean 2.4 Localizer Images: No additional findings. HEAD AND NECK: Head: No radiotracer avid lesion or mass effect in the imaged intracranial compartment. Aerodigestive Tract: No radiotracer avid lesion. Lymph Nodes: No radiotracer avid lymphadenopathy. Neck Soft Tissues: No radiotracer avid thyroid nodule. CHEST: Lungs & Pleura: An anterior right upper lobe nodule measures SUV max 5.6, 1.0 x 0.8 cm (3:92). Other, smaller bilateral pulmonary nodules are below PET resolution. A pleural-based nodule in the posterior right lower lobe measures SUV max 12.1, 2.4 x 1.5 cm (3:162). Small right pleural effusion with mild uptake. Lymph Nodes: No radiotracer avid lymphadenopathy. Calcified intrathoracic lymph node(s) are likely sequela of an old granulomatous process. Mediastinum: No radiotracer avid mass. Cardiovascular: Blood pool activity. No pericardial effusion. Normal heart size. Thoracic aortic and coronary artery calcifications. A left chest wall port tip terminates in the right atrium. Chest Wall: No radiotracer avid soft tissue lesion. ABDOMEN AND PELVIS: Hepatobiliary: Focal uptake localizing to subtle hypoattenuating lesion in the posterior right hepatic lobe measures SUV max 7.7 (3:171). Cholecystectomy. Spleen: No radiotracer avid lesion. No splenomegaly. Pancreas: No radiotracer avid lesion. Adrenals: No radiotracer avid nodule. Urinary Tract: Physiologic radiotracer excretion in the renal collecting systems and urinary bladder. No hydronephrosis. Photopenic presumed renal cyst(s). GI Tract: Intense activity throughout the large bowel is compatible with metformin use. No bowel dilation. Peritoneum: Scattered FDG avid omental nodularity and FDG avid nodularity along the left pelvic peritoneal reflection. Examples include: * Left lower quadrant omental nodule, SUV max 9.9, 1.9 x 1.1 cm (3:241) * Lower abdominal omental nodule to the right of midline, SUV max 10.9, 1.1 x 0.8 cm (3:247) * Nodularity along the left pelvic peritoneal reflection, SUV max 9.4, 1.7 x 1.2 cm (3:286) Lymph Nodes: No radiotracer avid lymphadenopathy. Vasculature: Blood pool activity. Vascular calcifications without an abdominal aortic aneurysm. Pelvic Organs: No radiotracer avid lesion. Hysterectomy. MUSCULOSKELETAL: Bones: No radiotracer avid lesion. No lytic or sclerotic lesion. Degenerative changes. Soft Tissues: Focal uptake localizing to asymmetric prominence of the right psoas at the level of L1-L2 measures SUV max 6.0 (3:196). FDG avid skin thickening along the inner proximal left thigh measures SUV max 5.4. [facility] Provider, [facility] - 11/09/2023 * * *Final Report* * * DATE OF EXAM: Nov 09 2023 9:18AM MDP 0060 - NM PET/CT SKULL-THIGH INIT / PROCEDURE REASON: R91.8-Lung nodules * * * * Physician Interpretation * * * * EXAMINATION: BODY FDG PET-CT CLINICAL HISTORY: Endometrial cancer EXAM CATEGORY: Initial treatment strategy. TECHNIQUE: Radiopharmaceutical was administered intravenously followed by PET imaging from the eyes to thighs. Free breathing, low dose CT of the same body region was acquired without IV contrast for attenuation correction and anatomic localization. Unenhanced imaging is limited for the evaluation of some pathology and the acquired CT was not designed to produce diagnostic CT scan quality. Physiologic/non-pathologic uptake in some body regions could confound or obscure some pathology. * CT Dose-Length Product (DLP): 654 mGy*cm * CT Dose Reduction Employed: Yes * Blood glucose: 83 mg/dL * Injected activity: 19.8 mCi * Uptake Time: 58 minutes * Radiopharmaceutical: P91-Cuvmbcwezitsizgsam (FDG) COMPARISON: No previous FDG PET/CT available CORRELATION: CT chest 10/27/2023, CT abdomen/pelvis 08/10/2023 RESULT: REFERENCES: FDG uptake is used as a surrogate marker for glucose metabolism. All reported standardized uptake values represent maximum SUV (SUVmax) per body weight, unless otherwise specified. SUV reference values, as follows: * Blood Pool (Descending Aorta): SUVmax 2.8 * Background Liver: SUVmax 2.8; SUVmean 2.4 Localizer Images: No additional findings. HEAD AND NECK: Head: No radiotracer avid lesion or mass effect in the imaged intracranial compartment. Aerodigestive Tract: No radiotracer avid lesion. Lymph Nodes: No radiotracer avid lymphadenopathy. Neck Soft Tissues: No radiotracer avid thyroid nodule. CHEST: Lungs & Pleura: An anterior right upper lobe nodule measures SUV max 5.6, 1.0 x 0.8 cm (3:92). Other, smaller bilateral pulmonary nodules are below PET resolution. A pleural-based nodule in the posterior right lower lobe measures SUV max 12.1, 2.4 x 1.5 cm (3:162). Small right pleural effusion with mild uptake. Lymph Nodes: No radiotracer avid lymphadenopathy. Calcified intrathoracic lymph node(s) are likely sequela of an old granulomatous process. Mediastinum: No radiotracer avid mass. Cardiovascular: Blood pool activity. No pericardial effusion. Normal heart size. Thoracic aortic and coronary artery calcifications. A left chest wall port tip terminates in the right atrium. Chest Wall: No radiotracer avid soft tissue lesion. ABDOMEN AND PELVIS: Hepatobiliary: Focal uptake localizing to subtle hypoattenuating lesion in the posterior right hepatic lobe measures SUV max 7.7 (3:171). Cholecystectomy. Spleen: No radiotracer avid lesion. No splenomegaly. Pancreas: No radiotracer avid lesion. Adrenals: No radiotracer avid nodule. Urinary Tract: Physiologic radiotracer excretion in the renal collecting systems and urinary bladder. No hydronephrosis. Photopenic presumed renal cyst(s). GI Tract: Intense activity throughout the large bowel is compatible with metformin use. No bowel dilation. Peritoneum: Scattered FDG avid omental nodularity and FDG avid nodularity along the left pelvic peritoneal reflection. Examples include: * Left lower quadrant omental nodule, SUV max 9.9, 1.9 x 1.1 cm (3:241) * Lower abdominal omental nodule to the right of midline, SUV max 10.9, 1.1 x 0.8 cm (3:247) * Nodularity along the left pelvic peritoneal reflection, SUV max 9.4, 1.7 x 1.2 cm (3:286) Lymph Nodes: No radiotracer avid lymphadenopathy. Vasculature: Blood pool activity. Vascular calcifications without an abdominal aortic aneurysm. Pelvic Organs: No radiotracer avid lesion. Hysterectomy. MUSCULOSKELETAL: Bones: No radiotracer avid lesion. No lytic or sclerotic lesion. Degenerative changes. Soft Tissues: Focal uptake localizing to asymmetric prominence of the right psoas at the level of L1-L2 measures SUV max 6.0 (3:196). FDG avid skin thickening along the inner proximal left thigh measures SUV max 5.4. IMPRESSION IMPRESSION: HEAD/NECK: * No metabolically active disease. CHEST: * FDG avid anterior right upper lobe pulmonary nodule. Other, smaller bilateral pulmonary nodules are below PET resolution, presumed metastatic. * FDG avid pleural-based metastatic nodule in the posterior right lower lobe. * Small right pleural effusion with mild uptake, presumed malignant. ABDOMEN/PELVIS: * Scattered FDG avid omental nodularity and FDG avid nodularity along the left pelvic peritoneal reflection, compatible with recurrent/metastatic disease. * FDG avid subtle hypoattenuating lesion in the posterior right hepatic lobe, presumed metastasis. MUSCULOSKELETAL: * Focal uptake localizi (more content not included)... [facility] Radiology Study observation (narrative) [facility] PET+CT Guidance for localiza tion of tumor of Skull base to mid-thigh-- W 18F-FDG IVOrdered By: [facility] Provider on 11-09-2023 [facility] CASE MANAGEMon 09-02-2023 CASE MANAGEM HNO ID: [id number] Author: MARY WALLS RN Service: ? Author Type: Registered Nurse Type: Care Mgt Progress Note Filed: 09/02/2023 13:22 Note Text: CARE MANAGEMENT DISCHARGE NOTE SERVICE DATE: September 02, 2023 SERVICE TIME: 1:20 PM Admission Date: 08/30/2023 LOS: 2 days Discharge Arrangement Discharge Arrangement: Home with Self Care Services Arranged Medical Services: Respiratory Respiratory Therapy: Home O2 Provider Name: [facility] Caregiver Assessment Caregiver is ready, willing and able to meet the patient's needs as recommended by the inter-professional team: No Caregiver needed Transportation Arrangements Transportation Arrangements: Car-Sister to transport Handoff Communication: Handoff to: Primary Care Physician Primary Care Physician Name/Phone: Dr. Vinh [phone] Additional Information: Discharge order written for today. Met with the patient regarding her discharge home today. Patient aware [facility] will deliver her portable 02 tank for her transport home today. Notified [facility] of the patients discharge home today. Discharge Information Row Name Admission (Current) from 08/30/[address] [facility] Durable Medical Equipment Agency [facility] Equipment Needed Home Oxygen SIGNATURE: Mary Walls RN PATIENT NAME: Nadiareza Bridges So DATE: September 02, 2023 TIME: 1:20 PM CONTACT #: [phone] [facility] CASE MANAGEM HNO ID: [id number] Author: MARY WALLS RN Service: ? Author Type: Registered Nurse Type: Care Mgt Progress Note Filed: 09/02/2023 12:08 Note Text: CARE MANAGEMENT PROGRESS NOTE SERVICE DATE: 09/02/2023 SERVICE TIME: 12:08 PM LOS: 2 days IMM Follow Up Copy Given: Yes Copy given to:: Patient Method: In Person SIGNATURE: Mary Walls RN PATIENT NAME: Pricila Bridges So DATE: September 02, 2023 TIME: 12:08 PM PAGER/CONTACT #: [phone] [facility] CASE MANAGEM HNO ID: [id number] Author: MARY WALLS RN Service: ? Author Type: Registered Nurse Type: Care Mgt Progress Note Filed: 09/02/2023 13:13 Note Text: CARE MANAGEMENT PROGRESS NOTE SERVICE DATE: 09/02/2023 SERVICE TIME: 11:49 AM LOS: 2 days Needs Prior to Discharge: Oxygen Set-up Desat study completed- the patient qualifies for Home 02. Updated [facility], script sent. CM department will continue to follow for DC needs. 1:12 pm- Spoke with [facility] answering service. The crew truck driver will be here within the hour to delivery the portable 02 tank for transport home. SIGNATURE: Mary Walls RN PATIENT NAME: Pricila Hooker DATE: September 02, 2023 TIME: 11:49 AM PAGER/CONTACT #: [phone] Normal [facility] CBC panel Auto (Bld)on 09-01 Erythrocyte distribution width (RBC) [Ratio] 14.1 % Normal 11.5-15.0 [facility] Comment on above: Order Comment: Speci men Type: SWAB Ordering Facility: [facility] Address: [address] [place] [address] Performed By: #### S APCR #### [facility] CLIA [id number] [address] [place] [address] [place] Hematocrit (Bld) [Volume fraction] 33.2 % Low 36.0-46.0 [facility] Comment on above: Order Comment: Speci men Type: SWAB Ordering Facility: [facility] Address: [address] [place] [address] Performed By: #### S APCR #### [facility] CLIA [id number] [address] [place] [address] [place] Hemoglobin (Bld) [Mass/Vol] 10.4 g/dL Low 11.5-15.5 [facility] Comment on above: Order Comment: Speci men Type: SWAB Ordering Facility: [facility] Address: [address] [place] [address] Performed By: #### S APCR #### [facility] CLIA [id number] [address] [place] [address] [place] MCH (RBC) [Entitic mass] 29.1 pg Normal 26.0-34.0 [facility] Comment on above: Order Comment: Speci men Type: SWAB Ordering Facility: [facility] Address: [address] [place] [address] Performed By: #### S APCR #### [facility] CLIA [id number] [address] [place] [address] [place] MCHC (RBC) [Mass/Vol] 31.3 g/dL Normal 30.5-36.0 [facility] Comment on above: Order Comment: Speci men Type: SWAB Ordering Facility: [facility] Address: [address] [place] [address] Performed By: #### S APCR #### [facility] CLIA [id number] [address] [place] [address] [place] MCV (RBC) [Entitic vol] 93.0 fL Normal 80.0-100.[address] [facility] Comment on above: Order Comment: Speci men Type: SWAB Ordering Facility: [facility] Address: [address] [place] [address] Performed By: #### S APCR #### [facility] CLIA [id number] [address] [place] [address] [place] Nucleated RBC (Bld) [#/Vol] 10*3/uL Normal <0.01 [facility] Comment on above: Order Comment: Speci men Type: SWAB Ordering Facility: [facility] Address: [address] [place] [address] Performed By: #### S APCR #### [facility] CLIA [id number] [address] [place] [address] [place] Platelet mean volume (Bld) [Entitic vol] 9.4 fL Normal 9.0-12.7 [facility] Comment on above: Order Comment: Speci men Type: SWAB Ordering Facility: [facility] Address: [address] [place] [address] Performed By: #### S APCR #### [facility] CLIA [id number] [address] [place] [address] [place] Platelets (Bld) [#/Vol] 138 10*3/uL Low 150-400 [facility] Comment on above: Order Comment: Speci men Type: SWAB Ordering Facility: [facility] Address: [address] [place] [address] Performed By: #### S APCR #### [facility] CLIA [id number] [address] [place] [address] [place] RBC (Bld) [#/Vol] 3.57 10*6/uL Low 3.90-5.20 [facility] Comment on above: Order Comment: Speci men Type: SWAB Ordering Facility: [facility] Address: [address] [place] [address] Performed By: #### S APCR #### [facility] CLIA [id number] [address] [place] [address] [place] WBC (Bld) [#/Vol] 5.15 10*3/uL Normal 3.70-11.00 [facility] Comment on above: Order Comment: Speci men Type: SWAB Ordering Facility: [facility] Address: [address] [place] [address] Performed By: #### S APCR #### [facility] CLIA [id number] [address] [place] [address] [place] CNDSon 09-02-2023 CNDS HNO ID: [id number] Author: MARJORIE UGALDE MD Service: Hospital Medicine Author Type: Physician Type: Discharge Summary Filed: 09/02/2023 12:01 Note Text: DISCHARGE SUMMARY PATIENT NAME: Pricila Hooker ADMISSION DATE: 08/30/2023 DISCHARGE DATE: 09/02/2023 ATTENDING PHYSICIAN: Marjorie Ugalde MD Code Status: Full Code Highest Readmission Risk Score: 19 The 30 day readmissions risk score is derived from an internally validated risk model which evaluates patient level characteristics, utilization history, medication orders and lab results up until the day of discharge. Patients with a score of 40 or above are considered highest risk for readmission. Specific patient level drivers will be listed at the bottom of the summary. CONSULTING TEAMS DURING HOSPITALIZATION: Pulmonology, Cardiology Treatment Team: Attending Provider: Marjorie Ugalde MD Primary Service: , [facility] Consulting: Pamela Nelson MD REASON FOR HOSPITALIZATION: Acute Respiratory Failure with Hypoxia, Hypercarbia DIAGNOSIS: ALEXX/OHS Acute systolic congestive heart failure OPERATIONS DURING HOSPITALIZATION: None PROCEDURES DURING HOSPITALIZATION: No procedures performed HOSPITAL COURSE: Ms. Pricila Hooker is a 77 y/o F with a PMH of obesity, HTN, T2DM, HLD, new dx of endometrial cancer with possible lung metastases presenting with acute respiratory failure with hypoxia. She had recently increased her coreg dose to 12.5mg po BID, and endorsed four days of worsening shortness of breath. She did not appear volume overloaded, though was diuresed x2 days with some improvement. An ABG was performed given persistent hypoxia out of proportion to imaging and examination findings, with finding suggestive of hypercapnea, likely chronic. She was otherwise asymptomatic. We discussed her case with pulmonology and Cardiology; an overnight desaturation study was performed with significant desaturations consistent with hypoventilation, and patient qualifies for both nocturnal and exertional oxygen. She will require close follow up with Pulm and Cardiology as an outpatient. A sleep study will be arranged outpatient. Transitions of Care Critical Issues: NEW BASELINE FOR PATIENT: Requires supplemental O2 SPECIALIST FOLLOW-UP: Pulmonology, Cardiology TRISTAN MEDICATION CHANGES: Furosemide 20mg po daily, decrease coreg back to 6.25mg po BID LABS AND PROCEDURES PENDING AT DISCHARGE: No pending results. PATIENT CONDITION AT DISCHARGE: Stable DISCHARGE DISPOSITION: Home with Self Care GENERAL: Alert, no distress, cooperative SKIN: Skin color, texture, turgor normal. No rashes or lesions. HEAD/SINUSES: No significant findings EYES: EOMI NECK: No jugulovenous distention, Supple BACK: Back symmetric, Normal curvature, ROM normal LUNGS: Lungs clear to auscultation, Good diaphragmatic excursion CARDIAC: Normal S1 and S2; no rubs, murmurs, or gallops ABDOMEN: Abdomen soft, non-tender, BS normal, No masses or organomegaly EXTREMITIES: Normal exam of the extremities NEURO: Grossly normal cognition, motor function, and cranial nerves III-XII DIET: Resume pre-hospital diet ACTIVITY: Resume pre-hospital activity ALLERGIES No Known Allergies DISCHARGE MEDICATION: Medication List START taking these medications furosemide 20 mg tablet Commonly known as: LASIX Take 1 tablet by mouth once daily. Start taking on: September 03, 2023 CHANGE how you take these medications carvedilol 3.125 mg tablet Commonly known as: COREG Take 2 tablets by mouth two times a day with meals. What changed: how much to take CONTINUE taking these medications acetaminophen 500 mg tablet Commonly known as: TYLENOL EXTRA STRENGTH Take 2 tablets by mouth every 6 hours as needed for pain. alcohol swabs Commonly known as: ALCOHOL PADS Test one time daily, Insulin Dep? No E11.9 DM 2 amitriptyline 50 mg tablet Commonly known as: ELAVIL take 1 tablet by mouth once daily at bedtime aspirin 81 mg Cap atorvastatin 40 mg tablet Commonly known as: LIPITOR TAKE 1 TABLET BY MOUTH ONCE DAILY AT BEDTIME FOR CHOLESTEROL BLOOD GLUCOSE TEST test strip Generic drug: blood sugar diagnostic Test one time daily, Insulin Dep? No E11.9 DM 2 Blood Pressure Monitor Take your blood pressure everyday and keep a log DULoxetine 60 mg capsule Commonly known as: CYMBALTA Take 1 capsule by mouth once daily. gabapentin 100 mg capsule Commonly known as: NEURONTIN Take 1 capsule by mouth two times a day for 90 days. glimepiride 4 mg tablet Commonly known as: AMARYL Take 1 tablet by mouth two times a day with meals. Lancets Test one time daily, Insulin Dep? No E11.9 DM 2 lidocaine-prilocaine 2.5-2.5 % cream Commonly known as: EMLA Apply to affected area as needed. metFORMIN 500 mg tablet Commonly known as: GLUCOPHAGE Take 2 tablets by mouth two times a day with meals. . naproxen 500 mg tablet Commonly known as: NAPROSYN (more content not included)... [facility] CONSULT PROGon 09-02-2023 CONSULT PROG HNO ID: [id number] Author: PAMELA NELSON MD Service: Pulmonary Disease Author Type: Physician Type: Consult Progress Note Filed: 09/02/2023 11:17 Note Text: [facility] IN-PATIENT CONSULT PROGRESS NOTE SERVICE DATE: 09/02/2023 ASSESSMENT/RECOMMENDATIONS : Acute hypoxemic respiratory failure -Current oxygen requirement 3 L -Target SpO2 90-93% -Overnight oxygen trend started on RA but patient had severe desaturation with pattern consistent with hypoventilation rather than obstruction. Placed on 3 L with adequate saturation -Pending desaturation study -Patient qualifies for oxygen -Made arrangements for OP PFTs and pulmonary follow-up Chronic hypercapnic respiratory failure -Suspect OHS. Arrangements made for OP sleep study -HCO3 39 Acute on chronic systolic heart failure -Appears to be compensated at this time Morbid obesity -BMI 43 -Weight loss advised Lung nodules -Metastatic disease versus granulomatous disease. Nodules not amenable to CT guided biopsy Other medical issues: Endometrial cancer, DM, HTN Plan discussed in detail with patient, RN and primary attending. Patient verbalizes understanding and is in agreement with the current management plan. Total time spent in patient care includes but is not limited to patient/ family discussions, collaborative discussions with other healthcare providers, review of medical records, review of laboratory tests, radiology images/ results, microbiology and pathology data. Pamela Nelson MD Staff, Respiratory [facility] Pager #[phone] SUBJECTIVE CHIEF COMPLAINT: No complaints INTERVAL HPI:Pricila Hooker is a 77 year old female former remote minimal smoker with PMH significant for obesity, HTN, DM, HLD, GERD, new diagnosis of endometrial cancer with possible lung mets admitted with respiratory failure due to CHF. She had a persistent oxygen requirement without obvious etiology. ABG suggestive of chronic hypercapnia. Suspect OHS. She feels well. No significant SOB, cough, chest pain. LE stable. MEDICATIONS: Current Facility-Administered Medications Medication Dose Route Frequency furosemide 20 mg tab(s) (LASIX) 20 mg ORAL DAILY acetaminophen 1,000 mg tab(s) (TYLENOL) 1,000 mg ORAL q 6 H PRN gabapentin 100 mg cap(s) (NEURONTIN) 100 mg ORAL BID atorvastatin 40 mg tab(s) (LIPITOR) 40 mg ORAL AT BEDTIME valsartan 80 mg tab(s) (DIOVAN) 80 mg ORAL BID magnesium oxide 400 mg tab(s) (MAG-OX) 400 mg ORAL BID aspirin, enteric coated 81 mg tab(s) 81 mg ORAL DAILY DULoxetine 60 mg cap(s) (CYMBALTA) 60 mg ORAL DAILY amitriptyline 50 mg tab(s) (ELAVIL) 50 mg ORAL AT BEDTIME heparin 5,000 Units injection 5,000 Units SUBCUTANEOUS q 12 H NaCl 0.9% iv flush bag 20 mL INTRAVENOUS PRN carvedilol 6.25 mg tab(s) (COREG) 6.25 mg ORAL BID w MEALS ipratropium 0.02 % 0.5 mg (ATROVENT) 0.5 mg INHALATION q 4 H while awake dextrose 40 % 15 g 15 g ORAL PRN Or glucagon 1 mg injection 1 mg INTRAMUSCULAR PRN Or dextrose 10% iv bolus 12.5 g INTRAVENOUS PRN insulin lispro injection (rapid acting) (ADMElog) SUBCUTANEOUS w MEALS insulin lispro injection (rapid acting) (ADMElog) SUBCUTANEOUS AT BEDTIME CURRENT ALLERGIES: ALLERGIES No Known Allergies Patient Vitals for the past 24 hrs: BP Temp Temp src Pulse Resp SpO2 09/02/23 0741 (!) 105/49 36.5 ?C (97.7 ?F) Oral 79 18 93 % 09/02/23 0310 105/80 36.6 ?C (97.9 ?F) Oral 81 20 93 % 09/01/23 2341 134/60 36.6 ?C (97.9 ?F) Oral 78 18 93 % 09/01/23 2341 -- -- -- -- -- 92 % 09/01/23 2340 -- -- -- -- -- 88 % 09/01/23 2335 -- -- -- -- -- (!) 78 % 09/01/234 -- -- -- 87 18 90 % 09/01/23 1942 (!) 106/45 36.5 ?C (97.7 ?F) Oral 84 18 92 % 09/01/23 1530 123/54 36.8 ?C (98.2 ?F) Oral 79 20 95 % 09/01/23 1106 112/67 36.6 ?C (97.9 ?F) Temporal Art 76 14 92 % Intake/Output Summary (Last 24 hours) at 09/02/2023 0832 Last data filed at 09/01/2023 1825 Gross per 24 hour Intake 480 ml Output -- Net 480 ml OBJECTIVE PHYSICAL EXAM: BP 105/49 Pulse 79 Temp (Src) 97.7 (Oral) Resp 18 Ht 5' 7.7" (1.72m) Wt 281 lb 15.5 oz (127.9kg) SpO2 93% BMI 43.23 kg/(m2). O2 Therapy: Nasal Cannula, Liters: 3.00 General appearance: Obese, NAD Respiratory: Not labored, no wheezes or crackles Cardiovascular: RRR, no murmur Extremities: Edema, no clubbing Neurological: Negative for focal neurological deficits, alert and oriented DATA Diagnostic tests reviewed for today's visit, films/specimens were personally reviewed by me: Most recent labs CBC, Coags, BMP, Mg, Phos Recent Labs 09/02/23 0459 09/01/23 0535 08/31/23 0626 WBC 5.15 5.68 6.79 HB 10.4* 10.4* 10.1* HCT 33.2* 33.4* 33.0* PLT 138* 151 151 NA 140 139 139 K 5.0 4.7 4.7 CHLOR 98 97* 99 CO2 39* 36* 35* BUN 19 19 16 CREAT 1.03* 1.00* 0.97* GLUC 133* 105* 83 CA 9.2 9.0 8.8 MG 2.0 1.8 1.7 Liver Function, Amylase, AND Lipase Recent Lab (more content not included)... Normal [facility] Comprehensive metabolic 2000 panelon 09-02-2023 Albumin [Mass/Vol] 3.8 g/dL Low 3.9-4.9 [facility] Comment on above: Order Comment: Guera doll Type: BLOOD SPECIMENOrdering Facility: [facility] Address: [address] [place] [address] Performed By: #### 2 4323-8, ####[facility] [id number] [place] [address] [place] ALP [Catalytic activity/Vol] 72 U/L Normal 34-123 [facility] Comment on above: Order Comment: Guera doll Type: BLOOD SPECIMENOrdering Facility: [facility] Address: [address] [place] [address] Performed By: #### 2 4323-8, ####[facility]ORYCLIA [id number] [place] [address] [place] ALT [Catalytic activity/Vol] 18 U/L Normal 7-38 [facility] Comment on above: Order Comment: Speci men Type: BLOOD SPECIMENOrdering Facility: [facility] Address: [address] [place] [address] Performed By: #### 2 4323-8, ####[facility]ORYCLIA [id number] [place] [address] [place] Anion gap [Moles/Vol] 3 mmol/L Low 8-15 [facility] Comment on above: Order Comment: Speci men Type: BLOOD SPECIMENOrdering Facility: [facility] Address: [address] [place] [address] Performed By: #### 2 4322-8, ####[facility]ORYCLIA [id number] [address] [place] AST [Catalytic activity/Vol] 15 U/L Normal 13-35 [facility] Comment on above: Order Comment: Speci men Type: BLOOD SPECIMENOrdering Facility: [facility] Address: [address] [place] [address] Performed By: #### 2 8, ####[facility]ATORYCLIA [id number] [place] [address] [place] Bilirubin [Mass/Vol] 0.4 mg/dL Normal 0.2-1.3 [facility] Comment on above: Order Comment: Speci men Type: BLOOD SPECIMENOrdering Facility: [facility] Address: [address] [place] [address] Performed By: #### 2 432-8, ####[facility]ATORYCLIA [id number] [place] [address] [place] Calcium [Mass/Vol] 9.2 mg/dL Normal 8.5-10.2 [facility] Comment on above: Order Comment: Speci men Type: BLOOD SPECIMENOrdering Facility: [facility] Address: [address] [place] [address] Performed By: #### 2 432, ####[facility]ATORYCLIA [id number] [place] [address] [place] Chloride [Moles/Vol] 98 mmol/L Normal 98-107 [facility] Comment on above: Order Comment: Guera doll Type: BLOOD SPECIMENOrdering Facility: [facility] Address: [address] [place] [address] Performed By: #### 2 43238, ####[facility]ATORYCLIA [id number] [place] [id number] [place] CO2 [Moles/Vol] 39 mmol/L High 22-30 [facility] Comment on above: Order Comment: Guera doll Type: BLOOD SPECIMENOrdering Facility: [facility] Address: [address] [place] [address] Performed By: #### 2 8, ####[facility]ATORYCLIA [id number] [place] [address] [place] Creatinine [Mass/Vol] 1.03 mg/dL High 0.58-0.96 [facility] Comment on above: Order Comment: Guera doll Type: BLOOD SPECIMENOrdering Facility: [facility] Address: [address] [place] [address] Performed By: #### 2 4322-09, ####[facility]ATORYCLIA [id number] [address] [place] Creatinine and Glomerular filtration rate.predicted panel (S/P/Bld) 56 mL/min/1.73m??? Low >=60 [facility] Comment on above: Order Comment: Guera doll Type: BLOOD SPECIMENOrdering Facility: [facility] Address: [address] [place] [address] Result Comment: Judith mated Glomerular Filtration Rate (eGFR) is calculated using the 2020 CKD-EPI creatinine equation. This equation utilizes serum creatinine, sex, and age as parameters. The creatinine assay has traceable calibration to isotope dilution-mass spectrometry. Refer to KDIGO guidelines for clinical interpretation. In patients with unstable renal function, e.g. those with acute kidney injury, the eGFR may not accurately reflect actual GFR. Performed By: #### 2 4328, ####[facility]ATORYCLIA [id number] [place] [id number] [place] Glucose [Mass/Vol] 133 mg/dL High 74-99 [facility] Comment on above: Order Comment: Guera doll Type: BLOOD SPECIMENOrdering Facility: [facility] Address: [address] [place] [address] Result Comment: The [place] Diabetes Association (ADA) provides guidance for cutoff values for fasting glucose and random glucose. The ADA defines fasting as no caloric intake for at least 8 hours. Fasting plasma glucose results between 100 to 125 mg/dL indicate increased risk for diabetes (prediabetes). Fasting plasma glucose results greater than or equal to 126 mg/dL meet the criteria for diagnosis of diabetes. In the absence of unequivocal hyperglycemia, results should be confirmed by repeat testing. In a patient with classic symptoms of hyperglycemia or hyperglycemic crisis, random plasma glucose results greater than or equal to 200 mg/dL meet the criteria for diagnosis of diabetes. Reference: Standards of Medical Care in Diabetes 2016, [place] [employer] Association. Diabetes Care. 2016.39(Suppl 1). Performed By: #### 2 4328, ####[facility]ATORYCLIA [id number] [place] [id number] [place] Potassium [Moles/Vol] 5.0 mmol/L Normal 3.7-5.1 [facility] Comment on above: Order Comment: Guera doll Type: BLOOD SPECIMENOrdering Facility: [facility] Address: [address] [place] [address] Performed By: #### 2 43205-06, ####[facility]ORATORYCLIA [id number] [place] [address] [place] Protein [Mass/Vol] 6.5 g/dL Normal 6.3-8.0 [facility] Comment on above: Order Comment: Guera doll Type: BLOOD SPECIMENOrdering Facility: [facility] Address: [address] [place] [address] Performed By: #### 2 4328, ####[facility]ORYCLIA [id number] [address] [place] Sodium [Moles/Vol] 140 mmol/L Normal 136-144 [facility] Comment on above: Order Comment: Speci men Type: BLOOD SPECIMENOrdering Facility: [facility] Address: [address] [place] [address] Performed By: #### 2 4323-8, 91454-5 ####[facility]ORATORYCLIA [id number] [address] [place] Urea nitrogen [Mass/Vol] 19 mg/dL Normal 7-21 [facility] Comment on above: Order Comment: Speci men Type: BLOOD SPECIMENOrdering Facility: [facility] Address: [address] [place] [address] Performed By: #### 2 4323-8, ####[facility]ATORYCLIA [id number] [address] [place] Magnesium SerPl-mCncon 09-01 Magnesium [Mass/Vol] 2.0 mg/dL Normal 1.7-2.3 [facility] Comment on above: Order Comment: Speci men Type: BLOOD SPECIMENOrdering Facility: [facility] Address: [address] [place] [address] Performed By: #### 2 4323-8, ####[facility]ATORYCLIA [id number] [address] [place] ARTERIAL BLOOD GASESon 08-31 Base excess Calc (Bld) [Moles/Vol] 9 mmol/L High 0-2 [facility] Comment on above: Order Comment: Speci men Type: ARTERIAL BLOOD SPECIMENOrdering Facility: [facility] Address: [address] [place] [address] Performed By: #### A LLBG ####[facility]PIRATORYCLIA [id number] [facility] [id number] [place] [id number] Carboxyhemoglobin (BldA) [Mass fraction] 1.3 % Normal 0.0-2.0 [facility] Comment on above: Order Comment: Speci men Type: ARTERIAL BLOOD SPECIMENOrdering Facility: [facility] Address: [address] [place] [id number] Result Comment: Carb oxyhemoglobin Reference Range for Smokers: 2.0-8.0% Performed By: #### A LLBG ####[facility] RESPIRATORYIA [id number] [facility]OS[facility] [id number] [address] [address] CO2 (Bld) [Partial pressure] 76 mm Hg High 36-46 [facility] Comment on above: Order Comment: Speci men Type: ARTERIAL BLOOD SPECIMENOrdering Facility: [facility] Address: [address] [place] [address] Performed By: #### A LLBG ####[facility] [id number] [facility] RES[facility] [id number] [address] CO2 adjusted to patient's actual temperature (Bld) [Partial pressure] Normal [facility] Comment on above: Order Comment: Speci men Type: ARTERIAL BLOOD SPECIMENOrdering Facility: [facility] Address: [address] [place] [address] Performed By: #### A LLBG ####[facility] [id number] [facility] RESPIRATORY [id number] [address] HCO3 (Bld) [Moles/Vol] 37 mmol/L High 22-26 [facility] Comment on above: Order Comment: Speci men Type: ARTERIAL BLOOD SPECIMENOrdering Facility: [facility] Address: [address] [place] [address] Performed By: #### A LLBG ####[facility]PIRATORYIA [id number] [facility]OSP[facility] [id number] [address] Hemoglobin (Bld) [Mass/Vol] 10.6 g/dL Low 11.5-15.5 [facility] Comment on above: Order Comment: Speci men Type: ARTERIAL BLOOD SPECIMENOrdering Facility: [facility] Address: [address] [place] [address] Performed By: #### A LLBG ####[facility]ORYNOR[facility] [id number] [facility]OSP[facility] [id number] [address] Lactate [Moles/Vol] 1.0 mmol/L Normal 0.5-2.2 [facility] Comment on above: Order Comment: Speci men Type: ARTERIAL BLOOD SPECIMENOrdering Facility: [facility] Address: [address] [id number] Performed By: #### A LLBG ####[facility] RESPIRATORYIA [id number] [facility] [id number] [address] [address] LITERS 2 Liters/min [facility] Comment on above: Order Comment: Speci men Type: ARTERIAL BLOOD SPECIMENOrdering Facility: [facility] Address: [address] [place] [address] Performed By: #### A LLBG ####[facility] RESPIRATORYJANE VILLE [id number] [facility]OSP[facility] [id number] [address] Methemoglobin (Bld) [Mass fraction] % Normal 0.0-1.5 [facility] Comment on above: Order Comment: Speci men Type: ARTERIAL BLOOD SPECIMENOrdering Facility: [facility] Address: [address] [place] [address] Performed By: #### A LLBG ####[facility] RESPIRATORYJANE VILLE [id number] [facility]OSP[facility] RESPIRAT[facility] [id number] [address] O2 THERAPY NC = Nasal Cannula [facility] Comment on above: Order Comment: Speci men Type: ARTERIAL BLOOD SPECIMENOrdering Facility: [facility] Address: [address] [place] [address] Performed By: #### A LLBG ####[facility] RESPIRATORYIA [id number] [facility]OS[facility] [id number] [address] Oxygen (Bld) [Partial pressure] 68 mm Hg Low 85-95 [facility] Comment on above: Order Comment: Speci men Type: ARTERIAL BLOOD SPECIMENOrdering Facility: [facility] Address: [address] [id number] Performed By: #### A LLBG ####[facility]ORY[id number] [facility] RESPIRAT[facility] [id number] [address] Oxygen adjusted to patient's actual temperature (Bld) [Partial pressure] Normal [facility] Comment on above: Order Comment: Speci men Type: ARTERIAL BLOOD SPECIMENOrdering Facility: [facility] Address: [address] [place] [address] Performed By: #### A LLBG ####[facility] RESPIRATORYIA [id number] [facility]OSP[facility] RESPIRAT[facility] [id number] [address] Oxyhemoglobin (BldA) [Mass fraction] 90 % Low 95-98 [facility] Comment on above: Order Comment: Speci men Type: ARTERIAL BLOOD SPECIMENOrdering Facility: [facility] Address: [address] [id number] Performed By: #### A LLBG ####[facility] [id number] HOSPITAL RESPIRATORY [id number] [address] pH (Bld) 7.31 [pH] Low 7.35-7.45 [facility] Comment on above: Order Comment: Speci men Type: ARTERIAL BLOOD SPECIMENOrdering Facility: [facility] Address: [address] [place] [address] Performed By: #### A LLBG ####[facility]ORYNOR[facility] COUNTRY [facility] [id number] [facility]OS[facility]PIRAT[facility] [id number] [address] pH adjusted to patient's actual temperature (Bld) Normal [facility] Comment on above: Order Comment: Speci men Type: ARTERIAL BLOOD SPECIMENOrdering Facility: [facility] Address: [address] [place] [address] Performed By: #### A LLBG ####[facility] [id number] HOS[facility] RESPIRATORY [id number] [address] Potassium [Moles/Vol] 4.8 mmol/L Normal 3.5-5.0 [facility] Comment on above: Order Comment: Speci men Type: ARTERIAL BLOOD SPECIMENOrdering Facility: [facility] Address: [address] [place] [address] Performed By: #### A LLBG ####[facility] RESPIRATORYCLIA [id number] [facility]OSP[facility] RESPIRATORY [id number] [facility] [address] [place] [address] CASE MANAGEMon 09-01-2023 CASE MANAGEM HNO ID: [id number] Author: MALINI GILMORE RN Service: ? Author Type: Registered Nurse Type: Care Mgt Progress Note Filed: 09/01/2023 15:55 Note Text: CARE MANAGEMENT PROGRESS NOTE SERVICE DATE: 09/01/2023 SERVICE TIME: 11:59 AM LOS: 1 day 08/30/23 Admission Hospital Consults: Cardiology. Pulmonary O2: 2 liters NC - None At Baseline Diet: heart healthy Discharge Plan: Home Discharge Transportation: Sister: Milagro Barboza [phone] Needs Prior to Discharge: To Be Determined CM Dept to Follow. 09/01/2023 3:[address] Pamela Nelson messaged CM to Send Use [facility] for [place] [facility]xygen Needs. Dr Ugalde Anticipates discharge Wednesday09/03/23. RN CM met with patient to discuss referral to [facility] for possible new home oxygen needs at discharge. Patient confirms she is agreeable with a referral to [facility]. Respiratory Referral sent to [facility] in [facility]. CM Dept to Follow. SIGNATURE: Malini Gilmore RN PATIENT NAME: Pricila Hooker DATE: September 01, 2023 TIME: 11:59 AM PAGER/CONTACT #: [phone] Normal [facility] CBC panel Auto (Bld)on 08-31 Erythrocyte distribution width (RBC) [Ratio] 14.1 % Normal 11.5-15.0 [facility] Comment on above: Order Comment: Speci men Type: BLOOD SPECIMEN [facility] Address: [address] [place] [address] Performed By: #### 5 8410-2 #### [facility] CLIA [id number] [address] [place] [address] [place] Hematocrit (Bld) [Volume fraction] 33.4 % Low 36.0-46.0 [facility] Comment on above: Order Comment: Speci men Type: BLOOD SPECIMEN [facility] Address: [address] [place] [address] Performed By: #### 5 8410-2 #### [facility] CLIA [id number] [address] [facility] Hemoglobin (Bld) [Mass/Vol] 10.4 g/dL Low 11.5-15.5 [facility] Comment on above: Order Comment: Speci men Type: BLOOD SPECIMEN [facility] Address: [address] [place] [address] Performed By: #### 5 8410-2 #### [facility] CLIA [id number] [address] MCH (RBC) [Entitic mass] 29.1 pg Normal 26.0-34.0 [facility] Comment on above: Order Comment: Speci men Type: BLOOD SPECIMEN [facility] Address: [address] [place] [address] Performed By: #### 5 8410-2 #### [facility] CLIA [id number] [address] MCHC (RBC) [Mass/Vol] 31.1 g/dL Normal 30.5-36.0 [facility] Comment on above: Order Comment: Speci men Type: BLOOD SPECIMEN [facility] Address: [address] [place] [address] Performed By: #### 5 8410-2 #### [facility] CLIA [id number] [address] MCV (RBC) [Entitic vol] 93.3 fL Normal 80.0-100.0 [facility] Comment on above: Order Comment: Speci men Type: BLOOD SPECIMEN [facility] Address: [address] [place] [address] Performed By: #### 5 8410-2 #### [facility] CLIA [id number] [address] Nucleated RBC (Bld) [#/Vol] 10*3/uL Normal <0.01 [facility] Comment on above: Order Comment: Speci men Type: BLOOD SPECIMEN [facility] Address: [address] [place] [address] Performed By: #### 5 8410-2 #### [facility] CLIA [id number] [address] [place] Platelet mean volume (Bld) [Entitic vol] 9.6 fL Normal 9.0-12.7 [facility] Comment on above: Order Comment: Speci men Type: BLOOD SPECIMEN [facility] Address: [address] [place] [address] Performed By: #### 5 8410-2 #### [facility] CLIA [id number] [address] [place] Platelets (Bld) [#/Vol] 151 10*3/uL Normal 150-400 [facility] Comment on above: Order Comment: Speci men Type: BLOOD SPECIMEN [facility] Address: [address] [place] [address] Performed By: #### 5 8410-2 #### [facility] CLIA [id number] [address] [place] [address] [place] RBC (Bld) [#/Vol] 3.58 10*6/uL Low 3.90-5.20 [facility] Comment on above: Order Comment: Speci men Type: BLOOD SPECIMEN [facility] Address: [address] [place] [address] Performed By: #### 5 8410-2 #### [facility] CLIA [id number] [address] [place] WBC (Bld) [#/Vol] 5.68 10*3/uL Normal 3.70-11.00 [facility] Comment on above: Order Comment: Speci men Type: BLOOD SPECIMEN [facility] Address: [address] [place] [address] Performed By: #### 5 8410-2 #### [facility] CLIA [id number] [address] [place] CONSULTon 09-01-2023 CONSULT HNO ID: [id number] Author: PAMELA NELSON MD Service: Pulmonary Disease Author Type: Physician Type: Consults Filed: 09/01/2023 14:58 Note Text: [facility] INITIAL CONSULTATION NOTE Patient Name: Pricila Hooker REASON FOR CONSULT: Hypoxemic respiratory failure REQUESTING PHYSICIAN: Marjorie Ugalde MD ASSESSMENT/PLAN: Acute hypoxemic respiratory failure -Current oxygen requirement 2 L -Target SpO2 90-93% -Mild CHF, but suspect OHS -Will need updated PFTs as OP as she may benefit from inhaler therapy -Desaturation study, overnight oximetry Chronic hypercapnic respiratory failure -See # 1 -Will make arrangements for OP sleep evaluation and pulmonary follow-up Acute on chronic systolic heart failure -Continue Lasix -Follows with cardiology Morbid obesity -BMI 43 -Weight loss advised Endometrial cancer -Treatment plan per oncology Lung nodules -Could be metastatic disease or granulomatous disease. No past images for comparison -Biopsy deemed high risk Other medical issues: Endometrial cancer, DM, HTN Thank you for the consultation. We will follow the patient along with you. Case discussed in detail with the patient, RN and primary attending. Patient verbalizes understanding and is in agreement with current management plan. Pamela Nelson MD CHIEF COMPLAINT: SOB HISTORY OF PRESENT ILLNESS: Pricila Hooker is a 77 year old female, Ht 172 cm (5' 7.7") BMI 43.25 kg/m2, former remote minimal smoker with a PMH significant for morbid obesity, HTN, DM, HLD, GERD, endometrial cancer with possible pulmonary metastasis, GERD, admitted with hypoxemic respiratory failure possibly due to CHF. She had a two day history of increased GUY and LE edema. Noted to be hypoxemic in ED, requiring 6 L oxygen. CTA chest negative for PE and only pertinent for her pulmonary nodules, lower lobe atelectasis and bilateral small effusions. No cough, wheezing or cough. She is on an active treatment plan per oncology. 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 Pulmonary asked to see patient due to persistent oxygen requirement without evidence of PNA, significant pulmonary edema or VTE. Arterial blood gas shows significant hypercapnia, with pH 7.31 and HCO3 37 is consistent with a chronic respiratory acidosis. I suspect she has OHS/ALEXX. She was supposed to have evaluation for ALEXX in 2019 but that did not transpire. She will need OP sleep study and qualify for oxygen. DATA: Radiology: DATE OF EXAM: Aug 30 2023 1:46PM [facility] 0540 - CT CHEST W IVCON PE / PROCEDURE REASON: Pulmonary embolism (PE) suspected, high prob IMPRESSION: No CT evidence of pulmonary embolism. Multiple bilateral pulmonary nodules suspicious for metastasis. The majority are stable in size compared with August 10, [address] but new when compared with older prior CTs. Small bilateral pleural effusions increased in size compared with prior chest CT. Areas of atelectasis and/or consolidation in both lower lobes adjacent to the effusions. Circumferential thickening of the esophagus similar to prior studies. This finding can be seen with gastroesophageal reflux/esophagitis. I personally reviewed the images and agree with the above assessment Most recent PFT: 2018: PFTs show moderate obstruction and mild restriction Oxygen supplementation: Not on home oxygen Cpap/bipap: Not on PAP PAST MEDICAL HISTORY Diagnosis Date Acute cholecystitis 01/04/2007 Arthritis Benign neoplasm of colon CHF (congestive heart failure) (HCC) Diabetes mellitus without mention of complication Endometrial cancer (HCC) GERD (gastroesophageal reflux disease) Hemorrhoids Hypercholesteremia Hypertension Neuropathy Obesity Osteoarthritis of multiple joints PAST SURGICAL HISTORY Procedure Laterality Date ABDOMINAL SURGERY HX ARTHRP KNE CONDYLEANDPLATU MEDIALANDLAT COMPARTMENTS 05/11/2011 Knee replacement, total right ARTHRP KNE CONDYLEANDPLATU MEDIALANDLAT COMPARTMENTS 01/2011 left CATARACT EXTRACTION HX Left COLONOSCOPY FLX DX W/COLLJ SPEC WHEN PFRMD 12/28/2007 Colonoscopy COLONOSCOPY FLX DX W/COLLJ SPEC WHEN PFRMD 06/17/2012 Colonoscopy COLONOSCOPY FLX DX W/COLLJ SPEC WHEN PFRMD 11/05/2017 Colonoscopy EGD W/O BRSH SPEC VARICIES INJ 11/25/2022 EYE SURGERY HX JOINT REPLACEMENT HX LAPS SURG CHOLECYSTECTOMY W/CHOLANGIOGRAPHY 01/04/2007 LAPS TOTAL HYSTERECT 250 GM/< W/RMVL TUBE/OVARY 07/24/2022 Exam under anesthesia, total laparoscopic hysterectomy, bilateral salpingo-oophorectomy, sentinel lymph node mapping with excision of bilateral pelvic sentinel lymph nodes, and extensive lysis of adhesions. PAST SURGICAL HISTORY OF N/A 05/11/2023 hx of heart cath FAMILY HISTORY Problem Relation Age of Onset Heart Mother irregular heart rate Colon Cancer Mother Strok (more content not included)... Normal [facility] Comprehensive metabolic 2000 panelon 09-01-2023 Albumin [Mass/Vol] 4.0 g/dL Normal 3.9-4.9 [facility] Comment on above: Order Comment: Speci men Type: SWAB [facility] Address: [address] [place] [address] Performed By: #### S APCR #### [facility] CLIA [id number] [address] [place] [address] [place] ALP [Catalytic activity/Vol] 72 U/L Normal 34-123 [facility] Comment on above: Order Comment: Speci men Type: SWAB [facility] Address: [address] [place] [address] Performed By: #### S APCR #### [facility] CLIA [id number] [address] [place] [address] [place] ALT [Catalytic activity/Vol] 14 U/L Normal 7-38 [facility] Comment on above: Order Comment: Speci men Type: SWAB [facility] Address: [address] [place] [address] Performed By: #### S APCR #### [facility] CLIA [id number] [address] [place] [address] [place] Anion gap [Moles/Vol] 6 mmol/L Low 8-15 [facility] Comment on above: Order Comment: Speci men Type: SWAB [facility] Address: [address] [place] [address] Performed By: #### S APCR #### [facility] CLIA [id number] [address] [place] [address] [place] AST [Catalytic activity/Vol] 13 U/L Normal 13-35 [facility] Comment on above: Order Comment: Speci men Type: SWAB [facility] Address: [address] [place] [address] Performed By: #### S APCR #### [facility] CLIA [id number] [address] [place] [address] [place] Bilirubin [Mass/Vol] 0.4 mg/dL Normal 0.2-1.3 [facility] Comment on above: Order Comment: Speci men Type: SWAB [facility] Address: [address] [place] [address] Performed By: #### S APCR #### [facility] CLIA [id number] [address] [place] [address] [place] Calcium [Mass/Vol] 9.0 mg/dL Normal 8.5-10.2 [facility] Comment on above: Order Comment: Speci men Type: SWAB [facility] Address: [address] [place] [address] Performed By: #### S APCR #### [facility] CLIA [id number] [address] [place] [address] [place] Chloride [Moles/Vol] 97 mmol/L Low 98-107 [facility] Comment on above: Order Comment: Speci men Type: SWAB [facility] Address: [address] [place] [address] Performed By: #### S APCR #### [facility] CLIA [id number] [address] [place] [address] [place] CO2 [Moles/Vol] 36 mmol/L High 22-30 [facility] Comment on above: Order Comment: Speci men Type: SWAB [facility] Address: [address] [place] [address] Performed By: #### S APCR #### [facility] CLIA [id number] [address] [place] [address] [place] Creatinine [Mass/Vol] 1.00 mg/dL High 0.58-0.96 [facility] Comment on above: Order Comment: Speci men Type: SWAB [facility] Address: [address] [place] [address] Performed By: #### S APCR #### [facility] CLIA [id number] [address] [place] [address] [place] Creatinine and Glomerular filtration rate.predicted panel (S/P/Bld) 58 mL/min/1.73m??? Low >=60 [facility] Comment on above: Order Comment: Speci men Type: SWAB [facility] Address: [address] [place] [address] Result Comment: Judith mated Glomerular Filtration Rate (eGFR) is calculated using the 2020 CKD-EPI creatinine equation. This equation utilizes serum creatinine, sex, and age as parameters. The creatinine assay has traceable calibration to isotope dilution-mass spectrometry. Refer to KDIGO guidelines for clinical interpretation. In patients with unstable renal function, e.g. those with acute kidney injury, the eGFR may not accurately reflect actual GFR. Performed By: #### S APCR #### [facility] CLIA [id number] [address] [place] [address] [place] Glucose [Mass/Vol] 105 mg/dL High 74-99 [facility] Comment on above: Order Comment: Speci men Type: SWAB [facility] Address: [address] [place] [address] Result Comment: The [place] Diabetes Association (ADA) provides guidance for cutoff values for fasting glucose and random glucose. The ADA defines fasting as no caloric intake for at least 8 hours. Fasting plasma glucose results between 100 to 125 mg/dL indicate increased risk for diabetes (prediabetes). Fasting plasma glucose results greater than or equal to 126 mg/dL meet the criteria for diagnosis of diabetes. In the absence of unequivocal hyperglycemia, results should be confirmed by repeat testing. In a patient with classic symptoms of hyperglycemia or hyperglycemic crisis, random plasma glucose results greater than or equal to 200 mg/dL meet the criteria for diagnosis of diabetes. Reference: Standards of Medical Care in Diabetes 2016, [place] [employer] Association. Diabetes Care. 2016.39(Suppl 1). Performed By: #### S APCR #### [facility] CLIA [id number] [address] [place] [address] [place] Potassium [Moles/Vol] 4.7 mmol/L Normal 3.7-5.1 [facility] Comment on above: Order Comment: Speci men Type: SWAB [facility] Address: [address] [place] [address] Performed By: #### S APCR #### [facility] CLIA [id number] [address] [place] [address] [place] Protein [Mass/Vol] 6.7 g/dL Normal 6.3-8.0 [facility] Comment on above: Order Comment: Speci men Type: SWAB [facility] Address: [address] [place] [address] Performed By: #### S APCR #### [facility] CLIA [id number] [address] [place] [address] [place] Sodium [Moles/Vol] 139 mmol/L Normal 136-144 [facility] Comment on above: Order Comment: Speci men Type: SWAB [facility] Address: [address] [place] [address] Performed By: #### S APCR #### [facility] CLIA [id number] [address] [place] [address] [place] Urea nitrogen [Mass/Vol] 19 mg/dL Normal 7-21 [facility] Comment on above: Order Comment: Speci men Type: SWAB [facility] Address: [address] [place] [address] Performed By: #### S APCR #### [facility] CLIA [id number] [address] [place] [address] [place] Magnesium SerPl-mCncon 08-31 Magnesium [Mass/Vol] 1.8 mg/dL Normal 1.7-2.3 [facility] Comment on above: Order Comment: Speci men Type: SWAB [facility] Address: [address] [place] [address] Performed By: #### S APCR #### [facility] CLIA [id number] [address] [place] [address] [place] NURSING PROGon 09-01-2023 NURSING PROG HNO ID: [id number] Author: VESTA STILL RN Service: ? Author Type: Registered Nurse Type: Nursing Progress Note Filed: 09/01/2023 23:53 Note Text: Other: 2335: Patient overnight desat study machine alarming for Spo2 of 78%. Patient awake at this time, no improvement of Spo2. Placed patient on 2L NC. Spo2 improved to 88% on 2L. Increased O2 to 3L. Spo2 91-93% on 3L. Called respiratory to notify of oxygen placement while on desat study. Normal [facility]: [id number] Author: MALINI GILMORE RN Service: ? Author Type: Registered Nurse Type: Care Mgt Initial Assessment Filed: 08/31/2023 14:00 Note Text: CARE MANAGEMENT: ASSESSMENT AND DISCHARGE PLAN SERVICE DATE: August 31, 2023 SERVICE TIME: 1:57 PM wet process operator spoke with patient at bedside to complete Care Management Assessment. Introduction made and role of Care Management explained. PCP: Vinh Van MD - patient confirmed Primary Contact: Primary Emergency Contact: Milagro Barboza Address: [address] [place] [id number] [place] Mobile Relation: Sister Admission Status: Inpatient Insurance [place] [facility] [place] Planning requested by: Per Department Practice Potential Transition Plans Home Advance Directives Current Advance Directive: Health Care Power of Residential Property Consultant;Living Will In Chart: Yes Current Living Arrangements and Support Lives with: Family members (Sister: Milagro Barboza) Type of Residence: Private Residence (House) Does the patient have to climb stairs at home?: No Support: Family members How do you manage to accomplish the following: Independent: Ambulation;Bathe/Shower;Dr ess;Meals/Meal Prep;Going to the bathroom;Medication Management;Transportation to appointments/community Current Services/Equipment Current Post-Acute Service(s): DME Current DME Type: Walker, Shower seat, Grab bars Discharge Planning Patient Goal(s): Be able to go home [place] of Choice Explained: [place] of Choice Given: No (Discharge Needs: To be Determined) Are you interested in bedside delivery of your medications? No Preference: [facility] in [place] Discharge Planning Participant(s): Patient Caregiver Assessment: Caregiver is ready, willing and able to meet the patient's needs as recommended by the inter-professional team: No Caregiver needed Transport at Discharge: Transportation Arrangements: Car Destination: Home Needs Prior to Discharge: Needs Prior to Discharge: To Be Determined Post-Acute Discharge Plan: From home. Lives with sister. Patient reports she is independent. Retired. Drives but at this time her sister has been assisting her with transportation. DME: Walker. Shower Seat. Grab Bars. Discharge Plan: Return Home Discharge Transportation: Sister: Milagro Barboza [phone] Dept to Follow. SIGNATURE: Malini Gilmore RN PATIENT NAME: Pricila Hooker DATE: August 31, 2023 TIME: 1:57 PM CONTACT #: [phone] Normal [facility] CBC panel Auto (Bld)on 08-30 Erythrocyte distribution width (RBC) [Ratio] 14.6 % Normal 11.5-15.0 [facility] Comment on above: Order Comment: Guera doll Type: BLOOD SPECIMENOrdering Facility: [facility] Address: [address] [place] [address] Performed By: #### 5 8410-2 ####[facility] LABORATORYCLIA [id number] [place] [address] [place] Hematocrit (Bld) [Volume fraction] 33.0 % Low 36.0-46.0 [facility] Comment on above: Order Comment: Guera doll Type: BLOOD SPECIMENOrdering Facility: [facility] Address: [address] [place] [address] Performed By: #### 5 8410-2 ####[facility] LABORATORYCLIA [id number] [place] [address] [place] Hemoglobin (Bld) [Mass/Vol] 10.1 g/dL Low 11.5-15.5 [facility] Comment on above: Order Comment: Speci men Type: BLOOD SPECIMENOrdering Facility: [facility] Address: [address] [place] [address] Performed By: #### 5 8410-2 ####[facility] LABORATORYCLIA [id number] [address] [place] MCH (RBC) [Entitic mass] 29.1 pg Normal 26.0-34.0 [facility] Comment on above: Order Comment: Speci men Type: BLOOD SPECIMENOrdering Facility: [facility] Address: [address] [place] [address] Performed By: #### 5 8410-2 ####[facility] LABORATORYCLIA [id number] [address] MCHC (RBC) [Mass/Vol] 30.6 g/dL Normal 30.5-36.0 [facility] Comment on above: Order Comment: Speci men Type: BLOOD SPECIMENOrdering Facility: [facility] Address: [address] [place] [address] Performed By: #### 5 8410-2 ####[facility] LABORATORYCLIA [id number] [address] MCV (RBC) [Entitic vol] 95.1 fL Normal 80.0-100.[address] [facility] Comment on above: Order Comment: Speci men Type: BLOOD SPECIMENOrdering Facility: [facility] Address: [address] [place] [address] Performed By: #### 5 8410-2 ####[facility] LABORATORYCLIA [id number] [address] Nucleated RBC (Bld) [#/Vol] 10*3/uL Normal <0.01 [facility] Comment on above: Order Comment: Speci men Type: BLOOD SPECIMENOrdering Facility: [facility] Address: [address] [place] [address] Performed By: #### 5 8410-2 ####[facility] LABORATORYCLIA [id number] [address] [place] Platelet mean volume (Bld) [Entitic vol] 9.6 fL Normal 9.0-12.7 [facility] Comment on above: Order Comment: Speci men Type: BLOOD SPECIMENOrdering Facility: [facility] Address: [address] [place] [address] Performed By: #### 5 8410-2 ####[facility] LABORATORYCLIA [id number] [address] Platelets (Bld) [#/Vol] 151 10*3/uL Normal 150-400 [facility] Comment on above: Order Comment: Speci men Type: BLOOD SPECIMENOrdering Facility: [facility] Address: [address] [place] [address] Performed By: #### 5 8410-2 ####[facility] LABORATORYCLIA [id number] [address] RBC (Bld) [#/Vol] 3.47 10*6/uL Low 3.90-5.20 [facility] Comment on above: Order Comment: Speci men Type: BLOOD SPECIMENOrdering Facility: [facility] Address: [address] [place] [address] Performed By: #### 5 8410-2 ####MEN[facility] LABORATORYCLIA [id number] [address] WBC (Bld) [#/Vol] 6.79 10*3/uL Normal 3.70-11.00 [facility] Comment on above: Order Comment: Speci men Type: BLOOD SPECIMENOrdering Facility: [facility] Address: [address] [place] [address] Performed By: #### 5 8410-2 ####[facility] LABORATORYCLIA [id number] [address] CONSULTon 08-31-2023 CONSULT HNO ID: [id number] Author: NATACHA SCHWAB MD Service: Cardiovascular Disease Author Type: Physician Type: Consults Filed: 08/31/2023 14:50 Note Text: Heart and Vascular [place] [facility] Department of Cardiovascular Medicine SECTION OF [facility] Consultation Note Name: Pricila Hooker : 1945 Primary Physician: Vinh Van MD Consulting Physician: Marjorie Ugalde MD Primary Piccoloist: Reason of Consultation: Heart failure SERVICE DATE: August 31, 2023 Assessment/ Plan: Acute hypoxic respiratory failure, resolved Heart failure with midrange reduced ejection fraction (45%)/nonischemic cardiomyopathy (EF reduced while she is being treated with pembrolizumab), NYHA class III, ACC stage C Nonobstructive coronary artery disease (50% mid LAD disease per left heart catheterization Morbid obesity (BMI 45) She feels better overall. She looks comfortable on room air. She is not volume overloaded on exam. Can switch furosemide to 20 mg p.o. daily and she can be discharged on this dose. Continue aspirin 81 mg daily, atorvastatin 40 mg daily, carvedilol 6.25 mg twice daily, losartan 80 mg twice daily. Suggest obtaining sleep study while inpatient if possible, and if not, this can be done as an outpatient. She will continue to follow-up with following discharge. The 10-year ASCVD risk score (Last WATSON, et al., 2019) is: 45% Values used to calculate the score: Age: 77 years Sex: Female Is Non- : No Diabetic: Yes Tobacco smoker: No Systolic Blood Pressure: 134 mmHg Is BP treated: Yes HDL Cholesterol: 34 mg/dL Total Cholesterol: 133 mg/dL History: Pricila Hooker is a 77 year old female with history of heart failure with midrange reduced ejection fraction (45%)/nonischemic cardiomyopathy (EF reduced while she is being treated with pembrolizumab) (lisinopril was stopped due to hypotension, had 2 UTIs with Jardiance), nonobstructive coronary artery disease (50% mid LAD disease per left heart catheterization in 04/2023), hypertension, endometrial cancer status post total laparoscopic hysterectomy, bilateral salpingo-oophorectomy (treated with radiation in 04/2023, and is being treated with Paclitaxel and carboplatin and pembrolizumab), type 2 diabetes mellitus (A1c 8), morbid obesity (BMI 45), neuropathy, presented on 7/1 with shortness of breath and acute hypoxic respiratory failure. Chest CT showed small bilateral pleural effusion. She started feeling short of breath 2 to 3 weeks ago she said after her carvedilol dose increased to 12.5 mg twice daily. She was having shortness of breath with doing activities at home. She denies orthopnea, PND. She also had swelling in lower extremities. She denies chest pain, palpitations, or syncope. Patient is non-smoker and drinks socially, denies recreational drug use. Functional capacity: Limited to activities at home Subjective PAST MEDICAL HISTORY Diagnosis Date Acute cholecystitis 01/04/2007 Arthritis Benign neoplasm of colon Diabetes mellitus without mention of complication Endometrial cancer (HCC) GERD (gastroesophageal reflux disease) Hemorrhoids Hypercholesteremia Hypertension Neuropathy Osteoarthritis of multiple joints PAST SURGICAL HISTORY Procedure Laterality Date ABDOMINAL SURGERY HX ARTHRP KNE CONDYLEANDPLATU MEDIALANDLAT COMPARTMENTS 05/11/2011 Knee replacement, total right ARTHRP KNE CONDYLEANDPLATU MEDIALANDLAT COMPARTMENTS 01/2011 left CATARACT EXTRACTION HX Left COLONOSCOPY FLX DX W/COLLJ SPEC WHEN PFRMD 12/28/2007 Colonoscopy COLONOSCOPY FLX DX W/COLLJ SPEC WHEN PFRMD 06/17/2012 Colonoscopy COLONOSCOPY FLX DX W/COLLJ SPEC WHEN PFRMD 11/05/2017 Colonoscopy EGD W/O BRSH SPEC VARICIES INJ 11/25/2022 EYE SURGERY HX JOINT REPLACEMENT HX LAPS SURG CHOLECYSTECTOMY W/CHOLANGIOGRAPHY 01/04/2007 LAPS TOTAL HYSTERECT 250 GM/< W/RMVL TUBE/OVARY 07/24/2022 Exam under anesthesia, total laparoscopic hysterectomy, bilateral salpingo-oophorectomy, sentinel lymph node mapping with excision of bilateral pelvic sentinel lymph nodes, and extensive lysis of adhesions. PAST SURGICAL HISTORY OF N/A 05/11/2023 hx of heart cath FAMILY HISTORY Problem Relation Age of Onset Heart Mother irregular heart rate Colon Cancer Mother Stroke Mother Heart Father from heart attack Colon Cancer Maternal Grandfather Social History Tobacco Use Smoking status: Former Packs/day: 0.50 Years: 20.00 Additional pack years: 0.00 Total pack years: 10.00 Types: Cigarettes Quit date: 11/05/1977 Years since quittin.8 Smokeless tobacco: Never Vaping Use Vaping Use: Never used Substance Use Topics Alcohol use: No Drug use: No Current Facility-Administered Medications Medication Dose Route Frequency acetaminophen 1,000 mg tab(s) (TYLENOL) 1, (more content not included)... Normal [facility] Comprehensive metabolic 2000 panelon 08-31-2023 Albumin [Mass/Vol] 3.8 g/dL Low 3.9-4.9 [facility] Comment on above: Order Comment: Speci men Type: BLOOD SPECIMENOrdering Facility: [facility] Address: [address] [place] [address] Performed By: #### 2 432-8, ####[facility] LABORATORYCLIA [id number] [place] [address] [place] ALP [Catalytic activity/Vol] 73 U/L Normal 34-123 [facility] Comment on above: Order Comment: Speci men Type: BLOOD SPECIMENOrdering Facility: [facility] Address: [address] [place] [address] Performed By: #### 2 4323-8, ####MEN[facility] LABORATORYCLIA [id number] [address] [facility] ALT [Catalytic activity/Vol] 14 U/L Normal 7-38 [facility] Comment on above: Order Comment: Speci men Type: BLOOD SPECIMENOrdering Facility: [facility] Address: [address] [place] [address] Performed By: #### 2 4322-8, ####MEN[facility] LABORATORYCLIA [id number] [address] [place] [facility] Anion gap [Moles/Vol] 5 mmol/L Low 8-15 [facility] Comment on above: Order Comment: Speci men Type: BLOOD SPECIMENOrdering Facility: [facility] Address: [address] [place] [address] Performed By: #### 2 4323-8, ####MEN[facility] LABORATORYCLIA [id number] [address] AST [Catalytic activity/Vol] 14 U/L Normal 13-35 [facility] Comment on above: Order Comment: Speci men Type: BLOOD SPECIMENOrdering Facility: [facility] Address: [address] [place] [address] Performed By: #### 2 4323-8, ####MEN[facility] LABORATORYCLIA [id number] [place] [address] [place] Bilirubin [Mass/Vol] 0.4 mg/dL Normal 0.2-1.3 [facility] Comment on above: Order Comment: Speci men Type: BLOOD SPECIMENOrdering Facility: [facility] Address: [address] [place] [address] Performed By: #### 2 4328, ####[facility] LABORATORYCLIA [id number] [place] [address] [place] Calcium [Mass/Vol] 8.8 mg/dL Normal 8.5-10.2 [facility] Comment on above: Order Comment: Speci men Type: BLOOD SPECIMENOrdering Facility: [facility] Address: [address] [place] [address] Performed By: #### 2 8, ####MEN[facility] LABORATORYCLIA [id number] [place] [address] [place] Chloride [Moles/Vol] 99 mmol/L Normal 98-107 [facility] Comment on above: Order Comment: Speci men Type: BLOOD SPECIMENOrdering Facility: [facility] Address: [address] [place] [address] Performed By: #### 2 4328, ####MEN[facility] LABORATORYCLIA [id number] [place] [address] [place] CO2 [Moles/Vol] 35 mmol/L High 22-30 [facility] Comment on above: Order Comment: Speci men Type: BLOOD SPECIMENOrdering Facility: [facility] Address: [address] [place] [address] Performed By: #### 2 4323-8, ####MEN[facility] LABORATORYCLIA [id number] [place] [address] [place] Creatinine [Mass/Vol] 0.97 mg/dL High 0.58-0.96 [facility] Comment on above: Order Comment: Speci men Type: BLOOD SPECIMENOrdering Facility: [facility] Address: [address] [place] [address] Performed By: #### 2 4323-8, ####MEN[facility] LABORATORYCLIA [id number] [place] [address] [place] [facility] Creatinine and Glomerular filtration rate.predicted panel (S/P/Bld) 60 mL/min/1.73m??? Normal >=60 [facility] Comment on above: Order Comment: Guera doll Type: BLOOD SPECIMENOrdering Facility: [facility] Address: [address] [place] [address] Result Comment: Judith mated Glomerular Filtration Rate (eGFR) is calculated using the 2020 CKD-EPI creatinine equation. This equation utilizes serum creatinine, sex, and age as parameters. The creatinine assay has traceable calibration to isotope dilution-mass spectrometry. Refer to KDIGO guidelines for clinical interpretation. In patients with unstable renal function, e.g. those with acute kidney injury, the eGFR may not accurately reflect actual GFR. Performed By: #### 2 4323-8, ####[facility] LABORATORYCLIA [id number] [place] [address] [place] Glucose [Mass/Vol] 83 mg/dL Normal 74-99 [facility] Comment on above: Order Comment: Guera doll Type: BLOOD SPECIMENOrdering Facility: [facility] Address: [address] [place] [address] Result Comment: The [place] Diabetes Association (ADA) provides guidance for cutoff values for fasting glucose and random glucose. The ADA defines fasting as no caloric intake for at least 8 hours. Fasting plasma glucose results between 100 to 125 mg/dL indicate increased risk for diabetes (prediabetes). Fasting plasma glucose results greater than or equal to 126 mg/dL meet the criteria for diagnosis of diabetes. In the absence of unequivocal hyperglycemia, results should be confirmed by repeat testing. In a patient with classic symptoms of hyperglycemia or hyperglycemic crisis, random plasma glucose results greater than or equal to 200 mg/dL meet the criteria for diagnosis of diabetes. Reference: Standards of Medical Care in Diabetes 2016, [place] [employer] Association. Diabetes Care. 2016.39(Suppl 1). Performed By: #### 2 4323-8, ####MEN[facility] LABORATORYCLIA [id number] [place] [address] [place] Potassium [Moles/Vol] 4.7 mmol/L Normal 3.7-5.1 [facility] Comment on above: Order Comment: Speci men Type: BLOOD SPECIMENOrdering Facility: [facility] Address: [address] [place] [address] Performed By: #### 2 4323-8, 34028-3 ####MEN[facility] LABORATORYCLIA [id number] [place] [address] [place] Protein [Mass/Vol] 6.7 g/dL Normal 6.3-8.0 [facility] Comment on above: Order Comment: Speci men Type: BLOOD SPECIMENOrdering Facility: [facility] Address: [address] [place] [address] Performed By: #### 2 4323-8, ####MENARD LABORATORYCLIA [id number] [address] [place] Sodium [Moles/Vol] 139 mmol/L Normal 136-144 [facility] Comment on above: Order Comment: Speci men Type: BLOOD SPECIMENOrdering Facility: [facility] Address: [address] [place] [address] Performed By: #### 2 4323-8, ####MEN[facility] LABORATORYCLIA [id number] [place] [address] [place] Urea nitrogen [Mass/Vol] 16 mg/dL Normal 7-21 [facility] Comment on above: Order Comment: Speci men Type: BLOOD SPECIMENOrdering Facility: [facility] Address: [address] [place] [address] Performed By: #### 2 4323-8, 26048-4 ####MENARD LABORATORYCLIA [id number] [place] [id number] [place] Magnesium SerPl-mCncon 08-30 Magnesium [Mass/Vol] 1.7 mg/dL Normal 1.7-2.3 [facility] Comment on above: Order Comment: Speci men Type: BLOOD SPECIMENOrdering Facility: [facility] Address: [address] [place], [place] [id number] Performed By: #### 2 4323-8, 04604-7 ####MENARD LABORATORYIA [id number] [address] [facility] NUTRITIONon 08-31-2023 NUTRITION HNO ID: [id number] Author: STEPHANIE FIORE RD Service: Nutrition Therapy Author Type: Registered Dietitian Type: Nutrition Filed: 08/31/2023 12:20 Note Text: NUTRITION THERAPY SCREEN NOTE SERVICE DATE: 08/31/2023 SERVICE TIME: 11:37 am Care Plan: Continue current diet Monitor and Evaluation: Meet greater than 75% of estimated needs Intake History: Nutrition Intake Prior to Admission: good appetite consuming 2-3 meals/day per pt Current Nutrition Intake: 100% of breakfast this morning per flowsheets Diet Orders (From admission, onward) Start Ordered 08/30/232029 DIET HEART HEALTHY START NOW Question: Heart Healthy Answer: 2 GM SODIUM (LOW SAT FAT) 08/30/232025 Anthropometrics: Height: 172 cm (5' 7.7") Weight: 133.7 kg (294 lb 12.1 oz) Usual Weight: 125.6 kg (277 lb) Usual Weight Obtained From: Chart Review Weight Change: Weight gain MNT Billing: $ Initial Assessment: 1-15 minutes SIGNATURE: Stephanie Fiore RD PATIENT NAME: Pricila Hooker DATE: August 31, 2023 TIME: 12:20 PM [facility] ALLIED HEALTHon 08-30-2023 ALLIED HEALTH HNO ID: [id number] Author: ZOILA CAMPBELL RT(R) Service: Radiology Author Type: Food Taster Type: Allied Health Filed: 08/30/2023 13:44 Note Text: Radiology Service Progress Note DATE OF SERVICE: August 30, 2023 TIME: 1:43 PM PATIENT IDENTITY VERIFICATION COMPLETED USING TWO (2) STANDARD IDENTIFIERS: Name and Date of confirmed by patient verbally. FALL SCREENING: Has the patient had 2 falls in the last year or 1 fall with injury or currently using an Ambulatory Assistive Device (Walker, Cane, Wheelchair, Crutches, etc.)? Emergency Room Patient: Screened in ED PATIENT GENDER DATA: Female. status: : No status: NO. PATIENT RELEVANT IMPLANT DATA REVIEWED: Yes PATIENT PRESENTS WITH AN IMPLANTABLE OR ATTACHED KENNEL STAFF MEMBER: No ALLERGIES: Reviewed and unchanged CONTRAST ALLERGY: NO. EXAM: CT -CONTRAST INDUCED NEPHROPATHY RISK FACTORS: Patient age > 60 years CREATININE: Creatinine Date Value Ref Range Status 08/30/2023 0.90 0.58 - 0.96 mg/dL Final 08/10/2023 0.87 0.58 - 0.96 mg/dL Final 06/08/2023 0.87 0.58 - 0.96 mg/dL Final Estimated Glomerular Filtration Rate Date Value Ref Range Status 08/30/2023 66 >=60 mL/min/1.73m? Final Comment: Estimated Glomerular Filtration Rate (eGFR) is calculated using the 2020 CKD-EPI creatinine equation. This equation utilizes serum creatinine, sex, and age as parameters. The creatinine assay has traceable calibration to isotope dilution-mass spectrometry. Refer to KDIGO guidelines for clinical interpretation. In patients with unstable renal function, e.g. those with acute kidney injury, the eGFR may not accurately reflect actual GFR. eGFR- Date Value Ref Range Status 03/28/2020 >60 Final P.O.C.T. RESULTS: POC done: Yes, See Lab Tab August 30, 2023 TREATMENT: N/A PERIPHERAL IV DATA: Inpatient - refer to LDA documentation RADIOLOGY DEPARTMENT: CT; Exam(s) Completed: CTA Chest SIGNATURE: RT Susie(R) PATIENT NAME: Pricila Hooker DATE: August 30, 2023 TIME: 1:43 PM Normal [facility] CBC W Auto Differential pane l (Bld)on 08-30-2023 Basophils (Bld) [#/Vol] 0.03 10*3/uL Normal <0.11 [facility] Comment on above: Order Comment: Guera doll Type: BLOOD SPECIMEN [facility] Address: [address] [place] [address] Performed By: #### H STNT #### [facility] CLIA [id number] [address] [place] [address] [place] Basophils/100 WBC (Bld) 0.4 % Normal [facility] Comment on above: Order Comment: Guera doll Type: BLOOD SPECIMEN [facility] Address: [address] [place] [address] Performed By: #### H STNT #### [facility] CLIA [id number] [address] [place] [address] [place] Differential cell count method Nom (Bld) Auto Normal [facility] Comment on above: Order Comment: Speci men Type: BLOOD SPECIMEN [facility] Address: [address] [place] [address] Performed By: #### H STNT #### [facility] CLIA [id number] [address] [place] [address] [place] Eosinophils (Bld) [#/Vol] 0.27 10*3/uL Normal <0.46 [facility] Comment on above: Order Comment: Speci men Type: BLOOD SPECIMEN [facility] Address: [address] [place] [address] Performed By: #### H STNT #### [facility] CLIA [id number] [address] [place] [id number] [place] Eosinophils/100 WBC (Bld) 3.9 % Normal [facility] Comment on above: Order Comment: Speci men Type: BLOOD SPECIMEN [facility] Address: [address] [place] [address] Performed By: #### H STNT #### [facility] CLIA [id number] [address] [place] [address] [facility] [place] Erythrocyte distribution width (RBC) [Ratio] 14.6 % Normal 11.5-15.0 [facility] Comment on above: Order Comment: Speci men Type: BLOOD SPECIMEN [facility] Address: [address] [place] [address] Performed By: #### H STNT #### [facility] CLIA [id number] [address] [place] [address] [place] Hematocrit (Bld) [Volume fraction] 33.8 % Low 36.0-46.0 [facility] Comment on above: Order Comment: Speci men Type: BLOOD SPECIMEN [facility] Address: [address] [place] [address] Performed By: #### H STNT #### [facility] CLIA [id number] [address] [place] [address] [place] Hemoglobin (Bld) [Mass/Vol] 10.5 g/dL Low 11.5-15.5 [facility] Comment on above: Order Comment: Speci men Type: BLOOD SPECIMEN [facility] Address: [address] [place] [address] Performed By: #### H STNT #### [facility] CLIA [id number] [address] [place] [address] [place] Immature granulocytes (Bld) [#/Vol] 10*3/uL Normal <0.10 [facility] Comment on above: Order Comment: Speci men Type: BLOOD SPECIMEN [facility] Address: [address] [place] [address] Performed By: #### H STNT #### [facility] CLIA [id number] [address] [place] [address] [place] Immature granulocytes/100 WBC (Bld) 0.3 % Normal [facility] Comment on above: Order Comment: Speci men Type: BLOOD SPECIMEN [facility] Address: [address] [place] [address] Performed By: #### H STNT #### [facility] CLIA [id number] [address] [place] [address] [place] Lymphocytes (Bld) [#/Vol] 1.18 10*3/uL Normal 1.00-4.00 [facility] Comment on above: Order Comment: Speci men Type: BLOOD SPECIMEN [facility] Address: [address] [place] [address] Performed By: #### H STNT #### [facility] CLIA [id number] [address] [place] [address] [place] Lymphocytes/100 WBC (Bld) 17.0 % Normal [facility] Comment on above: Order Comment: Speci men Type: BLOOD SPECIMEN [facility] Address: [address] [place] [address] Performed By: #### H STNT #### [facility] CLIA [id number] [address] [place] [id number] [place] [address] STATES [facility] MCH (RBC) [Entitic mass] 29.7 pg Normal 26.0-34.0 [facility] Comment on above: Order Comment: Speci men Type: BLOOD SPECIMEN [facility] Address: [address] [place] [address] Performed By: #### H STNT #### [facility] CLIA [id number] [address] [place] [address] [place] MCHC (RBC) [Mass/Vol] 31.1 g/dL Normal 30.5-36.0 [facility] Comment on above: Order Comment: Speci men Type: BLOOD SPECIMEN [facility] Address: [address] [place] [address] Performed By: #### H STNT #### [facility] CLIA [id number] [address] [place] [address] MCV (RBC) [Entitic vol] 95.5 fL Normal 80.0-100.[address] [facility] Comment on above: Order Comment: Speci men Type: BLOOD SPECIMEN Ordering Facility: [facility] Address: [address] [place] [address] Performed By: #### H STNT #### [facility] CLIA [id number] [address] [place], [place] [id number] [facility] Monocytes (Bld) [#/Vol] 0.45 10*3/uL Normal <0.87 [facility] Comment on above: Order Comment: Speci men Type: BLOOD SPECIMEN Ordering Facility: [facility] Address: [address] [place] [address] Performed By: #### H STNT #### [facility] CLIA [id number] [address] [place] [address] [place] Monocytes/100 WBC (Bld) 6.5 % Normal A [facility] Comment on above: Order Comment: Speci men Type: BLOOD SPECIMEN Ordering Facility: [facility] Address: [address] [place] [address] Performed By: #### H STNT #### [facility] CLIA [id number] [address] [place] [address] [place] Neutrophils (Bld) [#/Vol] 4.98 10*3/uL Normal 1.45-7.50 [facility] Comment on above: Order Comment: Speci men Type: BLOOD SPECIMEN Ordering Facility: [facility] Address: [address] [place] [address] Performed By: #### H STNT #### [facility] CLIA [id number] [address] [place] [address] [place] Neutrophils/100 WBC (Bld) 71.9 % Normal [facility] Comment on above: Order Comment: Speci men Type: BLOOD SPECIMEN Ordering Facility: [facility] Address: [address] [place] [address] Performed By: #### H STNT #### [facility] CLIA [id number] [address] [place] [address] [place] Nucleated RBC (Bld) [#/Vol] Normal [facility] Comment on above: Order Comment: Speci men Type: BLOOD SPECIMEN Ordering Facility: [facility] Address: [address] [place] [address] Performed By: #### H STNT #### [facility] CLIA [id number] [address] [place] [address] [place] Nucleated RBC/100 WBC (Bld) [Ratio] Normal [facility] Comment on above: Order Comment: Speci men Type: BLOOD SPECIMEN Ordering Facility: [facility] Address: [address] [place] [address] Performed By: #### H STNT #### [facility] CLIA [id number] [address] [place] [address] [place] Platelet mean volume (Bld) [Entitic vol] 9.8 fL Normal 9.0-12.7 [facility] Comment on above: Order Comment: Speci men Type: BLOOD SPECIMEN Ordering Facility: [facility] Address: [address] [place] [address] Performed By: #### H STNT #### [facility] CLIA [id number] [address] [place] [address] [place] Platelets (Bld) [#/Vol] 144 10*3/uL Low 150-400 [facility] Comment on above: Order Comment: Speci men Type: BLOOD SPECIMEN Ordering Facility: [facility] Address: [address] [place] [address] Performed By: #### H STNT #### [facility] CLIA [id number] [address] [place] [address] [place] RBC (Bld) [#/Vol] 3.54 10*6/uL Low 3.90-5.20 [facility] Comment on above: Order Comment: Speci men Type: BLOOD SPECIMEN Ordering Facility: [facility] Address: [address] [place] [address] Performed By: #### H STNT #### [facility] CLIA [id number] [address] [place] [address] [place] WBC (Bld) [#/Vol] 6.93 10*3/uL Normal 3.70-11.00 [facility] Comment on above: Order Comment: Speci men Type: BLOOD SPECIMEN Ordering Facility: [facility] Address: [address] [place] [address] Performed By: #### H STNT #### [facility] CLIA [id number] [address] [place] [address] [facility] [place] Edith 08-30-2023 NOEL Telephone (MEPRAD) -- PRICILA HOOKER ([id number]) 1945 F Date Time Provider Department 08/30/23 OLI AYALA During your visit today, we recorded the following information about you: Oli Ayala MD 08/30/2023 2:40 PM Signed Hospital Medicine Transfer Received page for transfer request from to [place] [facility] to 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 Sats improved after being placed on [address] PE showed lung metastasis. Will probably need home oxygen Reason for transfer: Acute hypoxic respiratory failure Accepted to hospital medicine service at [facility] Oli Ayala MD 2:29 PM Allergies As of Date: 08/30/2023 (No Known Allergies) Date Reviewed: 08/30/2023 Reviewed by: Rebecca Gordon, RN - Fully Assessed Reason for Visit: Hospital To Hospital [[id number]] Prescriptions as of 08/30/2023 - DULoxetine (CYMBALTA) 60 mg capsule Take 1 capsule by mouth once daily. - glimepiride (AMARYL) 4 mg tablet Take 1 tablet by mouth two times a day with meals. - naproxen (NAPROSYN) 500 mg tablet Take 1 tablet by mouth two times a day as needed (pain/inflammation, take with food.). - atorvastatin (LIPITOR) 40 mg tablet TAKE 1 TABLET BY MOUTH ONCE DAILY AT BEDTIME FOR CHOLESTEROL - carvedilol (COREG) 3.125 mg tablet Take 2 tablets by mouth two times a day with meals. - valsartan (DIOVAN) 80 mg tablet Take 1 tablet by mouth two times a day. - gabapentin (NEURONTIN) 100 mg capsule Take 1 capsule by mouth two times a day for 90 days. - metFORMIN (GLUCOPHAGE) 500 mg tablet Take 2 tablets by mouth two times a day with meals. . - Blood Pressure Monitor Take your blood pressure everyday and keep a log - aspirin 81 mg cap Take 81 mg by mouth once daily. - amitriptyline (ELAVIL) 50 mg tablet take 1 tablet by mouth once daily at bedtime - silver sulfADIAZINE (SILVADENE) 1 % cream Apply to affected area once daily. - Magnesium Chloride (SLOW-MAG) 71.5 mg TbEC Take 1 tablet by mouth twice daily. - lidocaine-prilocaine (EMLA) 2.5-2.5 % cream Apply to affected area as needed. - acetaminophen (TYLENOL EXTRA STRENGTH) 500 mg tablet Take 2 tablets by mouth every 6 hours as needed for pain. - Lancets lancets Test one time daily, Insulin Dep? No E11.9 DM 2 - alcohol swabs (ALCOHOL PADS) Test one time daily, Insulin Dep? No E11.9 DM 2 - blood sugar diagnostic (BLOOD GLUCOSE TEST) test strip Test one time daily, Insulin Dep? No E11.9 DM 2 - dulaglutide (TRULICITY) 3 mg/0.5 mL pen injector Inject 3 mg subcutaneously one time a week. Patient Assistance Medication. Facility-Administered Medications as of 08/30/2023 - iv contrast (radiology procedure) Meds Comments as of 12/03/2015: Not taking any medication for cholesterol. Problem List As Of Date 08/30/2023 Noted Resolved Diabetes mellitus type 2, controlled, without c*07/13/2006 07/09/2015 Hyperlipidemia [E78.5] 08/11/2006 Benign neoplasm of colon [D12.6] 12/28/2007 08/15/2010 Internal hemorrhoids without mention of complic*12/28/2007 08/15/2010 External hemorrhoids without mention of complic*12/28/2007 08/15/2010 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 [E13.40] 01/14/2010 Essential hypertension, benign [I10] 08/15/2010 Obesity, Class III, BMI 40-49.9 (morbid obesity*08/15/2010 Knee pain [M25.569] 12/31/2010 S/P total knee replacement [Z96.659] 03/01/2011 Type 2 diabetes mellitus without complication, *07/09/2015 Former smoker [Z87.891] 07/22/2022 GERD (gastroesophageal reflux disease) [K21.9] 07/22/2022 Endometrial cancer (HCC) [C54.1] 07/24/2022 Platelets decreased (HCC) [D69.6] 11/03/2022 06/08/2023 Dysphagia [R13.10] 11/25/2022 Stage 3a chronic kidney disease (HCC) [N18.31] 12/15/2022 06/08/2023 Pancytopenia (HCC) [D61.818] 02/02/2023 06/08/2023 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 Neurogenic orthostatic hypotension (HCC) [G90.3]03/16/2023 08/24/2023 Chemotherapy-induced neuropathy (HCC) (HCC) [G*03/16/2023 Encounter Status:Closed by OLI AYALA on 08/30/23 [facility] CT CHEST W IVCON PEon 2023 CT CHEST W IVCON PE * * *Final Report* * * DATE OF EXAM: Aug 30 2023 1:46PM [facility] 0540 - CT CHEST W IVCON PE / PROCEDURE REASON: Pulmonary embolism (PE) suspected, high prob * * * * Physician Interpretation * * * * EXAMINATION: CHEST CT WITH CONTRAST (PULMONARY EMBOLISM PROTOCOL) CLINICAL HISTORY: Shortness of breath Technique: Spiral CT acquisition of the chest from the thoracic inlet to the upper abdomen following IV contrast. Axial 1 and 3 mm thick slices plus coronal and sagittal reformatted images. MQ: CTCP_5 Contrast: 150 mL Omnipaque [address] Radiation dose: Integrated Dose-length product (DLP) for this visit = 685.74 mGy*cm CT Dose Reduction Employed: Automated exposure control(AEC) and iterative recon Comparison: Chest CT August 10, 2023, December 24, 2022. And October 28, 2022 RESULT: Limitations: None. Evaluation for thromboembolic disease: - Right heart chambers: No thromboembolic disease. - Main pulmonary arteries: No thromboembolic disease. - Lobar pulmonary arteries: No thromboembolic disease. - Segmental pulmonary arteries: No thromboembolic disease. - Subsegmental pulmonary arteries: No thromboembolic disease. - Additional pulmonary artery findings: The main pulmonary artery is normal in caliber. Lines, tubes, and devices: Left chest Mediport with catheter tip terminating at superior vena cava right atrial junction. Lung parenchyma and airways: Areas of atelectasis and/or consolidation in the dependent portion of both lower lobes adjacent pleural effusions. The creations and dependent portion of trachea. Multiple pulmonary nodules majority are stable compared to recent prior CT of September 09, 2023 but new compared to older prior studies and suspicious for metastasis. A few nodules are listed: -10 mm nodule right upper lobe (2:71). -9 mm nodule right middle lobe (2:177) increased in size from prior CT where measured 7 mm. -4 mm nodule right upper lobe (2:47). -4 mm nodule superior segment left lower lobe (2:81). -4 mm nodule left upper lobe (2:88). Pleural space: Small left pleural effusion slightly larger compared with prior chest CT. Small right pleural effusion new compared to prior CT. Lower neck, lymph nodes, and mediastinum: Thyroid gland is unremarkable. There are no enlarged axillary, mediastinal or hilar lymph nodes. Multiple calcified mediastinal and hilar lymph nodes suggest prior granulomatous disease. Mild diffuse circumferential thickening of the esophagus similar to prior CTs. Heart, pericardium, and thoracic vessels: The thoracic aorta is normal in caliber. The cardiac chambers are normal in size. No coronary artery atherosclerotic calcifications are noted, although the study is not optimized for coronary assessment. No pericardial effusion or thickening. Bones and soft tissues: Chronic partially healed fracture right 11th rib. Upper abdomen: Mild nodularity left adrenal gland unchanged. Localizer images: No additional findings. IMPRESSION: No CT evidence of pulmonary embolism. Multiple bilateral pulmonary nodules suspicious for metastasis. The majority are stable in size compared with August 10, [address] but new when compared with older prior CTs. Small bilateral pleural effusions increased in size compared with prior chest CT. Areas of atelectasis and/or consolidation in both lower lobes adjacent to the effusions. Circumferential thickening of the esophagus similar to prior studies. This finding can be seen with gastroesophageal reflux/esophagitis. Printer Floor Covering Assistant: KRISTOFER Transcribe Date/Time: Aug 30 2023 1:49P Dictated by : VINH CAMARGO MD This examination was interpreted and the report reviewed and electronically signed by: VINH CAMARGO MD on Aug 30 2023 2:02PM EST [id number] Normal [facility] Comprehensive metabolic 2000 panelon 08-30-2023 Albumin [Mass/Vol] 3.7 g/dL Low 3.9-4.9 [facility] Comment on above: Order Comment: Speci men Type: BLOOD SPECIMEN Ordering Facility: [facility] Address: [address] [place] [address] Performed By: #### H STNT #### [facility] CLIA [id number] [address] [place] [address] [place] ALP [Catalytic activity/Vol] 69 U/L Normal 34-123 [facility] Comment on above: Order Comment: Speci men Type: BLOOD SPECIMEN Ordering Facility: [facility] Address: [address] [place] [address] Performed By: #### H STNT #### [facility] CLIA [id number] [address] STATES [facility] ALT With P-5'-P [Catalytic activity/Vol] 14 U/L Normal 7-38 [facility] Comment on above: Order Comment: Speci men Type: BLOOD SPECIMEN Ordering Facility: [facility] Address: [address] [place] [address] Performed By: #### H STNT #### [facility] CLIA [id number] [address] [place] [address] [place] [facility] Anion gap [Moles/Vol] 10 mmol/L Normal 8-15 [facility] Comment on above: Order Comment: Speci men Type: BLOOD SPECIMEN Ordering Facility: [facility] Address: [address] [place] [address] Performed By: #### H STNT #### [facility] CLIA [id number] [address] [place] [address] [place] AST With P-5'-P [Catalytic activity/Vol] 16 U/L Normal 13-35 [facility] Comment on above: Order Comment: Speci men Type: BLOOD SPECIMEN Ordering Facility: [facility] Address: [address], [place] [address] Performed By: #### H STNT #### [facility] CLIA [id number] [address] [place] [address] [place] Bilirubin [Mass/Vol] 0.4 mg/dL Normal 0.2-1.3 [facility] Comment on above: Order Comment: Speci men Type: BLOOD SPECIMEN Ordering Facility: [facility] Address: [address] [place] [address] Performed By: #### H STNT #### [facility] CLIA [id number] [address] [place] [address] [place] Calcium [Mass/Vol] 8.9 mg/dL Normal 8.5-10.2 [facility] Comment on above: Order Comment: Speci men Type: BLOOD SPECIMEN Ordering Facility: [facility] Address: [address] [place] [address] Performed By: #### H STNT #### [facility] CLIA [id number] [address] [place] [address] [place] Chloride [Moles/Vol] 99 mmol/L Normal 98-107 [facility] Comment on above: Order Comment: Speci men Type: BLOOD SPECIMEN Ordering Facility: [facility] Address: [address] [place] [address] Performed By: #### H STNT #### [facility] CLIA [id number] [address] [place] [address] [place] CO2 [Moles/Vol] 30 mmol/L Normal 22-30 [facility] Comment on above: Order Comment: Speci men Type: BLOOD SPECIMEN Ordering Facility: [facility] Address: [address] [place] [address] Performed By: #### H STNT #### [facility] CLIA [id number] [address] [place] [address] [place] Creatinine [Mass/Vol] 0.90 mg/dL Normal 0.58-0.96 [facility] Comment on above: Order Comment: Speci men Type: BLOOD SPECIMEN Ordering Facility: [facility] Address: [address] [place] [address] Performed By: #### H STNT #### [facility] CLIA [id number] [address] [place] [address] [place] Creatinine and Glomerular filtration rate.predicted panel (S/P/Bld) 66 mL/min/1.73m??? Normal >=60 [facility] Comment on above: Order Comment: Guera doll Type: BLOOD SPECIMEN Ordering Facility: [facility] Address: [address] [place] [address] Result Comment: Judith mated Glomerular Filtration Rate (eGFR) is calculated using the 2020 CKD-EPI creatinine equation. This equation utilizes serum creatinine, sex, and age as parameters. The creatinine assay has traceable calibration to isotope dilution-mass spectrometry. Refer to KDIGO guidelines for clinical interpretation. In patients with unstable renal function, e.g. those with acute kidney injury, the eGFR may not accurately reflect actual GFR. Performed By: #### H STNT #### [facility] CLIA [id number] [address] [place], [place] [id number] [place] Glucose [Mass/Vol] 109 mg/dL High 74-99 [facility] Comment on above: Order Comment: Guera doll Type: BLOOD SPECIMEN Ordering Facility: [facility] Address: [address] [place] [address] Result Comment: The [place] Diabetes Association (ADA) provides guidance for cutoff values for fasting glucose and random glucose. The ADA defines fasting as no caloric intake for at least 8 hours. Fasting plasma glucose results between 100 to 125 mg/dL indicate increased risk for diabetes (prediabetes). Fasting plasma glucose results greater than or equal to 126 mg/dL meet the criteria for diagnosis of diabetes. In the absence of unequivocal hyperglycemia, results should be confirmed by repeat testing. In a patient with classic symptoms of hyperglycemia or hyperglycemic crisis, random plasma glucose results greater than or equal to 200 mg/dL meet the criteria for diagnosis of diabetes. Reference: Standards of Medical Care in Diabetes 2016, [place] Diabetes Association. Diabetes Care. 2016.39(Suppl 1). Performed By: #### H STNT #### [facility] CLIA [id number] [address] [place] [address] [place] Potassium [Moles/Vol] 4.8 mmol/L Normal 3.7-5.1 [facility] Comment on above: Order Comment: Speci men Type: BLOOD SPECIMEN Ordering Facility: [facility] Address: [address] [place] [address] Performed By: #### H STNT #### [facility] CLIA [id number] [address] [place] [address] [place] Protein [Mass/Vol] 6.7 g/dL Normal 6.3-8.0 [facility] Comment on above: Order Comment: Speci men Type: BLOOD SPECIMEN Ordering Facility: [facility] Address: [address] [place] [address] Performed By: #### H STNT #### [facility] CLIA [id number] [address] [place] [address] STATES [facility] Sodium [Moles/Vol] 139 mmol/L Normal 136-144 [facility] Comment on above: Order Comment: Speci men Type: BLOOD SPECIMEN Ordering Facility: [facility] Address: [address] [place] [address] Performed By: #### H STNT #### [facility] CLIA [id number] [address] [place] [address] [place] [facility] Urea nitrogen [Mass/Vol] 17 mg/dL Normal 7-21 [facility] Comment on above: Order Comment: Speci men Type: BLOOD SPECIMEN Ordering Facility: [facility] Address: [address] [place] [address] Performed By: #### H STNT #### [facility] CLIA [id number] [address] OF [facility] ECG COMPLETEon 08-30-2023 ECG COMPLETE Ventricular Rate : 8 0 BPM Atrial Rate : 80 BPM P-R Interval : 168 ms QRS Duration : 102 ms Q-T Interval : 390 ms QTC Calculation(Bazett) : 449 ms Calculated P [place] : 260 degrees Calculated R [place] : -10 degrees Calculated T [place] : 39 degrees UNUSUAL P AXIS, POSSIBLE ECTOPIC ATRIAL RHYTHM ABNORMAL ECG NO PREVIOUS ECGS AVAILABLE Confirmed by MD THOMAS VINAYAK ([id number]) on 09/02/2023 10:14:34 PM NAME : PRICILA HOOKER PID : [id number] : 1945 Gender : Female Race : ORD : [id number] Procedure Date : Aug 30 2023 12:04:22 Edit Date : Sep 02 2023 22:14:36 Diagnosis: UNUSUAL P AXIS, POSSIBLE ECTOPIC ATRIAL RHYTHM ABNORMAL ECG NO PREVIOUS ECGS AVAILABLE Confirmed by MD THOMAS VINAYAK ([id number]) on 09/02/2023 10:14:34 PM Test Reason : Chest Pain Location : 191 : [facility] ED Overread By : MD THOMAS VINAYAK Edited By : MD THOMAS VINAYAK Referred By : , Acquired by : BROOKE JON [facility] ED NOTEon 08-30-2023 ED NOTE HNO ID: [id number] Author: JESENIA MENENDEZ RN Service: Nursing Author Type: Registered Nurse Type: ED Notes Filed: 08/30/2023 17:59 Note Text: [facility] ETA 60-90 minutes [facility] ED NOTE HNO ID: [id number] Author: JESENIA MENENDEZ RN Service: Nursing Author Type: Registered Nurse Type: ED Notes Filed: 08/30/2023 17:55 Note Text: Bed assignment [facility] 408-1 Report to [phone] [facility] ED NOTE HNO ID: [id number] Author: REBECCA GORDON RN Service: Nursing Author Type: Registered Nurse Type: ED Notes Filed: 08/30/2023 12:05 Note Text: Pt arrives with c/p "short of breath", symptoms began Wednesday of last week. Pt AOX3 upon arrival, placed on classroom monitor, paged for EKG. Pt denies pain. Sister at bedside reports, "she just hasn't been feeling well the last few days, decreased appetite, and increased weakness." Pt initially showing 80% Sp02 upon arrival with good wave form, placed on NC 6L with quick rise in 02 sat. O2 lowered to 3LNC. Normal [facility] ED PROV NOTEon 08-30-2023 ED PROV NOTE HNO ID: [id number] Author: ANTOLIN HERNANDEZ MD Service: Emergency Medicine Author Type: Physician Type: ED Provider Notes Filed: 08/30/2023 14:43 Note Text: ED Provider Note Patient Name: Pricila Hooker : 1945 SERVICE DATE: 08/30/23 History Patient presents with: Shortness of Breath Pricila Hooker is a 77 year old female with history of endometrial cancer and mild cardiomyopathy who presents with shortness of breath. Patient has not had similar episodes of hypoxia in the past. - Patient is not . - Patient does not require increased oxygen. - Symptoms began 4 days prior to arrival. Onset was gradual. - Severity: moderate - Timing: constant - Symptoms are exacerbated by exertion. - Symptoms are not exacerbated by allergies. - Symptoms are associated with nothing. - Symptoms are not associated with chest pain and coughing. - Improved by nothing. - Not improved by rest Patient has a history of endometrial cancer she had been on chemotherapy she does have a recent heart catheterization from April showing mild cardiomyopathy she always has some exertional shortness of breath but over the past 4 days she become increasingly short of breath at rest sister who is her caregiver also notes that she seemed to "be out of it". No cough no congestion she reports no orthopnea.. PAST MEDICAL HISTORY Diagnosis Date Acute cholecystitis 01/04/2007 Arthritis Benign neoplasm of colon Diabetes mellitus without mention of complication Endometrial cancer (HCC) GERD (gastroesophageal reflux disease) Hemorrhoids Hypercholesteremia Hypertension Neuropathy Osteoarthritis of multiple joints PAST SURGICAL HISTORY Procedure Laterality Date ABDOMINAL SURGERY HX ARTHRP KNE CONDYLEANDPLATU MEDIALANDLAT COMPARTMENTS 05/11/2011 Knee replacement, total right ARTHRP KNE CONDYLEANDPLATU MEDIALANDLAT COMPARTMENTS 01/2011 left CATARACT EXTRACTION HX Left COLONOSCOPY FLX DX W/COLLJ SPEC WHEN PFRMD 12/28/2007 Colonoscopy COLONOSCOPY FLX DX W/COLLJ SPEC WHEN PFRMD 06/17/2012 Colonoscopy COLONOSCOPY FLX DX W/COLLJ SPEC WHEN PFRMD 11/05/2017 Colonoscopy EGD W/O BRSH SPEC VARICIES INJ 11/25/2022 EYE SURGERY HX JOINT REPLACEMENT HX LAPS SURG CHOLECYSTECTOMY W/CHOLANGIOGRAPHY 01/04/2007 LAPS TOTAL HYSTERECT 250 GM/< W/RMVL TUBE/OVARY 07/24/2022 Exam under anesthesia, total laparoscopic hysterectomy, bilateral salpingo-oophorectomy, sentinel lymph node mapping with excision of bilateral pelvic sentinel lymph nodes, and extensive lysis of adhesions. PAST SURGICAL HISTORY OF N/A 05/11/2023 hx of heart cath FAMILY HISTORY Problem Relation Age of Onset Heart Mother irregular heart rate Colon Cancer Mother Stroke Mother Heart Father from heart attack Colon Cancer Maternal Grandfather Social History Tobacco Use Smoking status: Former Packs/day: 0.50 Years: 20.00 Additional pack years: 0.00 Total pack years: 10.00 Types: Cigarettes Quit date: 11/05/1977 Years since quittin.8 Smokeless tobacco: Never Vaping Use Vaping Use: Never used Substance and Sexual Activity Alcohol use: No Drug use: No Sexual activity: Not Currently ALLERGIES No Known Allergies Review of Systems Constitutional: Negative for chills and fever. Respiratory: Positive for shortness of breath. Negative for cough and wheezing. Cardiovascular: Negative for chest pain and palpitations. Gastrointestinal: Negative for nausea and vomiting. Musculoskeletal: Negative for back pain and neck pain. Skin: Negative for rash and wound. Allergic/Immunologic: Negative for environmental allergies, food allergies and immunocompromised state. Neurological: Negative for syncope and light-headedness. Psychiatric/Behavioral: Negative for confusion. The patient is not nervous/anxious. Physical Exam Vitals [08/30/23 1200] BP Pulse Temp Temp src Resp SpO2 Weight Height 148/75 79 36.5 ?C (97.7 ?F) Temporal 14 (!) 80 % 132 kg (291 lb) 1.727 m (5' 8") Physical Exam Vitals and nursing note reviewed. Constitutional: General: She is not in acute distress. Appearance: She is well-developed. She is not ill-appearing, toxic-appearing or diaphoretic. HENT: Head: Normocephalic. Mouth/Throat: Mouth: Mucous membranes are moist. Neck: Vascular: No JVD. Cardiovascular: Rate and Rhythm: Normal rate and regular rhythm. Heart sounds: No murmur heard. Pulmonary: Effort: Pulmonary effort is normal. Breath sounds: Normal breath sounds. Musculoskeletal: Cervical back: Neck supple. Right lower leg: No tenderness. No edema. Left lower leg: No tenderness. No edema. Skin: General: Skin is warm and dry. Capillary Refill: Capillary refill takes less than 2 seconds. Findings: No rash. Neurological: General: No focal deficit present. Mental Status: She is alert and oriented to person, place, and time. Psychiatric: Mood and Affect: (more content not included)... Normal [facility] FLUABV+SARS-CoV-2+RSV Pnl Re sp PEDRO LUIS+probeon 08-30-2023 FLUABV+SARS-CoV-2+RSV Pnl Resp PEDRO LUIS+probe COVID 19 RESULT: Not detected The method used is RT-PCR or an equivalent NAAT method. Reference Range(the expected result in uninfected individuals): Not detected INFLUENZA A PCR: Not detected INFLUENZA B PCR: Not detected RSV PCR: Not detected Normal [facility] Comment on above: Performed By: #### 9 [id number] #### [facility] CLIA [id number] [address] [place] [address] HIGH SENSITIVITY TROPONIN T (INITIAL)on 08-30-2023 Troponin T.cardiac High sensitivity method [Mass/Vol] 26 ng/L High <12 [facility] Comment on above: Order Comment: Guera doll Type: BLOOD SPECIMEN Ordering Facility: [facility] Address: [address] [place] [address] Performed By: #### H STNT #### [facility] CLIA [id number] [address] [place] [address] HIGH SENSITIVITY TROPONIN T (SECOND)on 08-30-2023 Troponin T.cardiac High sensitivity method [Mass/Vol] 24 ng/L High <12 [facility] Comment on above: Order Comment: Guera doll Type: BLOOD SPECIMEN Ordering Facility: [facility] Address: [address] [place] [address] Performed By: #### H STNT #### [facility] CLIA [id number] [address] [place], [place] [id number] [facility] HIGH SENSITIVITY TROPONIN T (THIRD) 3 HRS AFTER INITIALon 08-30-2023 Troponin T.cardiac High sensitivity method [Mass/Vol] 25 ng/L High <12 [facility] Comment on above: Order Comment: Guera doll Type: BLOOD SPECIMEN Ordering Facility: [facility] Address: [address], [place] [address] Performed By: #### S ANGIE #### [facility] CLIA [id number] [address] [place] [id number] [place] HISTORY PHYSICALon HISTORY PHYSICAL HNO ID: [id number] Author: CESARIO GOMES MD Service: Hospital Medicine Author Type: Nurse Practitioner Type: H&P Filed: 09/11/2023 18:28 Note Text: -- Attestation signed by Cesario Gomes MD at 09/11/2023 6:28 PM I have reviewed the History and Physical as documented by the GABBIE and agree with the documentation. Cesario Gomes September 11, 2023 6:28 PM -- DEPARTMENT OF HOSPITAL MEDICINE HISTORY AND PHYSICAL EXAM SERVICE DATE: 08/30/2023 SERVICE TIME: 10:00 PM Primary Care Physician: Vinh Van MD NIGHT AND WEEKEND COVERAGE: [facility]ON COVERAGE: Days: [phone], please page attending physician. Nights: [phone], please page [place] [facility] Night coverage pager [phone]. Subjective CHIEF COMPLAINT: SOB HPI: This is a 77 year old female with PMH HTN, Endometrial cancer, systolic HF, presented to the [place] ED for evaluation of SOB that started 4 days ago. She reports about a week ago, her PCP increased her Coreg due to elevated BP readings. She reports 2 days later she started to notice an increase to SOB with ambulation. She reports 2 days ago her legs were swollen, but have since improved. She presented to the ED for further evaluation. She does not wear oxygen. She reports last chemo was Apr 2023. She is aware of lung nodules, but they are being watched by oncology. No recent travel or exposure to sick contacts. She reports taking a "water pill" a long time ago, but not currently. In the ED: labs were signficant for Hgb 10.4; BNP 770. HSTNT 26-->24-->25. EKG-- UNUSUAL P AXIS, POSSIBLE ECTOPIC ATRIAL RHYTHM; new P wave inversions leads III, AVF, V3-6. CT chest negative for PE, but noted Small bilateral pleural effusions increased in size compared with prior chest CT. She required 6L oxygen, but weaned down to 3.5L. she remained HDS and was transferred to [facility] for further evaluation. PAST MEDICAL HISTORY Diagnosis Date Acute cholecystitis 01/04/2007 Arthritis Benign neoplasm of colon Diabetes mellitus without mention of complication Endometrial cancer (HCC) GERD (gastroesophageal reflux disease) Hemorrhoids Hypercholesteremia Hypertension Neuropathy Osteoarthritis of multiple joints PAST SURGICAL HISTORY Procedure Laterality Date ABDOMINAL SURGERY HX ARTHRP KNE CONDYLEANDPLATU MEDIALANDLAT COMPARTMENTS 05/11/2011 Knee replacement, total right ARTHRP KNE CONDYLEANDPLATU MEDIALANDLAT COMPARTMENTS 01/2011 left CATARACT EXTRACTION HX Left COLONOSCOPY FLX DX W/COLLJ SPEC WHEN PFRMD 12/28/2007 Colonoscopy COLONOSCOPY FLX DX W/COLLJ SPEC WHEN PFRMD 06/17/2012 Colonoscopy COLONOSCOPY FLX DX W/COLLJ SPEC WHEN PFRMD 11/05/2017 Colonoscopy EGD W/O BRSH SPEC VARICIES INJ 11/25/2022 EYE SURGERY HX JOINT REPLACEMENT HX LAPS SURG CHOLECYSTECTOMY W/CHOLANGIOGRAPHY 01/04/2007 LAPS TOTAL HYSTERECT 250 GM/< W/RMVL TUBE/OVARY 07/24/2022 Exam under anesthesia, total laparoscopic hysterectomy, bilateral salpingo-oophorectomy, sentinel lymph node mapping with excision of bilateral pelvic sentinel lymph nodes, and extensive lysis of adhesions. PAST SURGICAL HISTORY OF N/A 05/11/2023 hx of heart cath FAMILY HISTORY Problem Relation Age of Onset Heart Mother irregular heart rate Colon Cancer Mother Stroke Mother Heart Father from heart attack Colon Cancer Maternal Grandfather Social History Tobacco Use Smoking status: Former Packs/day: 0.50 Years: 20.00 Additional pack years: 0.00 Total pack years: 10.00 Types: Cigarettes Quit date: 11/05/1977 Years since quittin.8 Smokeless tobacco: Never Vaping Use Vaping Use: Never used Substance Use Topics Alcohol use: No Drug use: No PRIOR TO ADMISSION MEDICATIONS: carvedilol (COREG) 3.125 mg tablet, Take 2 tablets by mouth two times a day with meals. (Patient taking differently: Take 12.5 mg by mouth two times a day with meals.), Disp: 180 tablet, Rfl: 3, 08/30/2023 at 0900 DULoxetine (CYMBALTA) 60 mg capsule, Take 1 capsule by mouth once daily., Disp: 30 capsule, Rfl: 2, 08/30/2023 at 0900 glimepiride (AMARYL) 4 mg tablet, Take 1 tablet by mouth two times a day with meals., Disp: 180 tablet, Rfl: 3, 08/30/2023 at 0900 naproxen (NAPROSYN) 500 mg tablet, Take 1 tablet by mouth two times a day as needed (pain/inflammation, take with food.)., Disp: 60 tablet, Rfl: 0, 08/29/2023 atorvastatin (LIPITOR) 40 mg tablet, TAKE 1 TABLET BY MOUTH ONCE DAILY AT BEDTIME FOR CHOLESTEROL, Disp: 30 tablet, Rfl: 11, 08/29/2023 at 2100 valsartan (DIOVAN) 80 mg tablet, Take 1 tablet by mouth two times a day., Disp: 180 tablet, Rfl: 3, 08/30/2023 at 0900 gabapentin (NEURONTIN) 100 mg capsule, Take 1 capsule by mouth two times a day for 90 days., Disp: 180 capsule, Rfl: 0, 08/30/2023 at 0900 metFORMIN (GLUCOPHAGE) 500 mg t (more content not included)... Normal [facility] NT-proBNP [facility] 08-29 Natriuretic peptide.B prohormone N-Terminal [Mass/Vol] 770 pg/mL High <450 [facility] Comment on above: Order Comment: Speci men Type: BLOOD SPECIMEN Ordering Facility: [facility] Address: [address] [place], [place] [id number] Performed By: #### H STNT #### [facility] CLIA [id number] [address] [place] [address] [place] NURSING PROGon 08-30-2023 NURSING PROG HNO ID: [id number] Author: BILLIE WALSH, LEONEL Service: Nursing Author Type: Registered Nurse Type: Nursing Progress Note Filed: 08/30/2023 19:46 Note Text: Transfer Note: PATIENT NAME: Pricila Hooker Patient Location: [place] [address] [address] Room: [place] [address] Patient transferred into room/unit 408-1 in stable condition. Actions taken: No futher actions taken at this time. Will continue to monitor and check with patient. Hospitalist notified of arrival. Normal [facility] Procalcitonin SerPl-mCncon 0 08-30-2023 Procalcitonin [Mass/Vol] 0.14 ng/mL High <0.09 [facility] Comment on above: Order Comment: Speci men Type: BLOOD SPECIMENOrdering Facility: [facility] Address: [address] [place] [address] Result Comment: For a guided interpretation of test results, please visit the Change in Procalcitonin Calculator, [email or web address]. Performed By: #### 3 [id number] ####[facility] [id number] [place] [address] [place] CA 125 BLDon 08-10-2023 Cancer Ag 125 Qn 29 [arb'U]/mL NINF - 39 U/mL [facility] Comment on above: CA 125 test methodol ogy used is the Electrochemiluminescence Immunoassay by [facility]. Results obtained with different methods or kits cannot be used interchangeably. The reference interval is based on the 95th percentile of 240 apparently healthy premenopausal and postmenopausal women. At a cutoff value of 65 U/mL, the test sensitivity to distinguish ovarian carcinoma (FIGO stage I to IV) versus benign gynecological disease is 79%, with a specificity of 82%. Reference: Cancer Antigen 125 (CA 125 II) [package insert V 1.0 Faroese]. [facility], [place], [place] (November 2014) CBC W Auto Differential pane l (Bld)on 08-10-2023 Basophils (Bld) [#/Vol] 0.04 10*3/uL [facility] Basophils/100 WBC (Bld) 0.7 % C [facility] Differential cell count method Nom (Bld) Auto [facility] Eosinophils (Bld) [#/Vol] 0.27 10*3/uL [facility] Eosinophils/100 WBC (Bld) 4.4 % [facility] Erythrocyte distribution width (RBC) [Ratio] 14.2 % 11.5 - 15.0 % [facility] Hematocrit (Bld) [Volume fraction] 34.6 % Low 36.0 - 46.0 % [facility] Hemoglobin (Bld) [Mass/Vol] 11.3 g/dL Low 11.5 - 15.5 g/dL [facility] Immature granulocytes (Bld) [#/Vol] [facility] Immature granulocytes/100 WBC (Bld) 0.2 % [facility] Interpretation and review of laboratory results Abnormal [facility] Lymphocytes (Bld) [#/Vol] 1.28 10*3/uL [facility] Lymphocytes/100 WBC (Bld) 21.0 % [facility] MCH (RBC) [Entitic mass] 29.7 pg 26.0 - 34.0 pg [facility] MCHC (RBC) [Mass/Vol] 32.7 g/dL 30.5 - 36.0 g/dL [facility] MCV (RBC) [Entitic vol] 91.1 fL 80.0 - 100.0 fL [facility] Monocytes (Bld) [#/Vol] 0.53 10*3/uL [facility] Monocytes/100 WBC (Bld) 8.7 % [facility] Neutrophils (Bld) [#/Vol] 3.97 10*3/uL [facility] Neutrophils/100 WBC (Bld) 65.0 % [facility] Nucleated RBC (Bld) [#/Vol] [facility] Nucleated RBC/100 WBC (Bld) [Ratio] 0.0 % /100 WBC [facility] Platelet mean volume (Bld) [Entitic vol] 9.3 fL 9.0 - 12.7 fL [facility] Platelets (Bld) [#/Vol] 136 10*3/uL Low [facility] RBC (Bld) [#/Vol] 3.80 10*6/uL Low 3.90 - 5.2 0 m/uL [facility] WBC (Bld) [#/Vol] 6.10 10*3/uL [facility] CORTISOL BLDon 08-10-2023 Cortisol [Mass/Vol] 10.4 ug/dL 4.8 - 19 .5 ug/dL [facility] Comment on above: Provided reference deshawn graves is from 6-10 AM sample collection time. Cortisol Reference Range: 6-10 AM = 4.8-19.5 ug/dL, 4-8 PM = 2.5-11.9 ug/dL Cancer Ag 125 Qnon Interpretation and review of laboratory results Normal [facility] Comprehensive metabolic 2000 panelOrdered By: Zoila Rodriguez on 08-10-2023 Albumin [Mass/Vol] 3.8 g/dL Low 3.9 - 4.9 g/dL [facility] ALP [Catalytic activity/Vol] 76 U/L 34 - 123 U/L [facility] ALT [Catalytic activity/Vol] 9 U/L 7 - 38 U/L [facility] Anion gap [Moles/Vol] 8 mmol/L 8 - 15 mmol/L [facility] AST [Catalytic activity/Vol] 11 U/L Low 13 - 35 U/L [facility] Bilirubin [Mass/Vol] 0.5 mg/dL 0.2 - 1 .3 mg/dL [facility] Calcium [Mass/Vol] 9.6 mg/dL 8.5 - 10. 2 mg/dL [facility] Chloride [Moles/Vol] 102 mmol/L 98 - 10 7 mmol/L [facility] CO2 [Moles/Vol] 30 mmol/L 22 - 30 mmol/L [facility] Creatinine [Mass/Vol] 0.87 mg/dL 0.58 - 0.96 mg/dL [facility] GFR/1.73 sq M.predicted among non-blacks MDRD (S/P/Bld) [Vol rate/Area] 69 mL/min/{1.73_m2} - PINF [facility] Comment on above: Estimated Glomerular Filtration Rate (eGFR) is calculated using the 2020 CKD-EPI creatinine equation. This equation utilizes serum creatinine, sex, and age as parameters. The creatinine assay has traceable calibration to isotope dilution-mass spectrometry. Refer to KDIGO guidelines for clinical interpretation. In patients with unstable renal function, e.g. those with acute kidney injury, the eGFR may not accurately reflect actual GFR. Glucose [Mass/Vol] 90 mg/dL 74 - 99 mg/dL [facility] Comment on above: The [place] Diabete s Association (ADA) provides guidance for cutoff values for fasting glucose and random glucose. The ADA defines fasting as no caloric intake for at least 8 hours. Fasting plasma glucose results between 100 to 125 mg/dL indicate increased risk for diabetes (prediabetes). Fasting plasma glucose results greater than or equal to 126 mg/dL meet the criteria for diagnosis of diabetes. In the absence of unequivocal hyperglycemia, results should be confirmed by repeat testing. In a patient with classic symptoms of hyperglycemia or hyperglycemic crisis, random plasma glucose results greater than or equal to 200 mg/dL meet the criteria for diagnosis of diabetes. Reference: Standards of Medical Care in Diabetes 2016, [place] [employer]. Diabetes Care. 2016.39(Suppl 1). Interpretation and review of laboratory results Abnormal [facility] Potassium [Moles/Vol] 4.6 mmol/L 3.7 - 5.1 mmol/L [facility] Protein [Mass/Vol] 6.4 g/dL 6.3 - 8.0 g/dL [facility] Sodium [Moles/Vol] 140 mmol/L 136 - 144 mmol/L [facility] Urea nitrogen [Mass/Vol] 20 mg/dL 7 - 21 mg/dL [facility] MAGNESIUM [facility] 08-10-2023 Magnesium [Mass/Vol] 1.6 mg/dL Low 1.7 - 2 .3 mg/dL [facility] Magnesium [Mass/Vol]on 08-09 Interpretation and review of laboratory results Abnormal [facility] No Panel Informationon 08-09 Interpretation and review of laboratory results Normal [facility] T4 FREE/FREE THYROXon 2023 Free T4 [Mass/Vol] 1.2 ng/dL 0.9 - 1.7 ng/dL [facility] TSH [facility] 08-10-2023 TSH Qn 2.460 m[IU]/L [facility] No Panel Informationon 06-17 [facility] CA 125 BLDon 06-08-2023 Cancer Ag 125 Qn 13 [arb'U]/mL <39 U/mL [facility] CBC W Auto Differential pane l (Bld)on 06-08-2023 Basophils (Bld) [#/Vol] 0.03 10*3/uL <0.11 k/uL [facility] Basophils/100 WBC (Bld) 0.5 % C [facility] Differential cell count method Nom (Bld) Auto [facility] Eosinophils (Bld) [#/Vol] 0.27 10*3/uL <0.46 k/uL [facility] Eosinophils/100 WBC (Bld) 4.7 % [facility] Erythrocyte distribution width (RBC) [Ratio] 14.9 % 11.5 - 15.0 % [facility] Hematocrit (Bld) [Volume fraction] 32.5 % Low 36.0 - 46.0 % [facility] Hemoglobin (Bld) [Mass/Vol] 10.5 g/dL Low 11.5 - 15.5 g/dL [facility] Immature granulocytes (Bld) [#/Vol] <0.10 k/uL [facility] Immature granulocytes/100 WBC (Bld) 0.3 % [facility] Lymphocytes (Bld) [#/Vol] 1.02 10*3/uL 1.00 - 4.00 k/uL [facility] Lymphocytes/100 WBC (Bld) 17.6 % [facility] MCH (RBC) [Entitic mass] 29.6 pg 26.0 - 34.0 pg [facility] MCHC (RBC) [Mass/Vol] 32.3 g/dL 30.5 - 36.0 g/dL [facility] MCV (RBC) [Entitic vol] 91.5 fL 80.0 - 100.0 fL [facility] Monocytes (Bld) [#/Vol] 0.47 10*3/uL <0.87 k/uL [facility] Monocytes/100 WBC (Bld) 8.1 % [facility] Neutrophils (Bld) [#/Vol] 3.99 10*3/uL 1.45 - 7.50 k/uL [facility] Neutrophils/100 WBC (Bld) 68.8 % [facility] Nucleated RBC (Bld) [#/Vol] <0.01 k/uL [facility] Nucleated RBC/100 WBC (Bld) [Ratio] 0.0 /100 WBC [facility] Platelet mean volume (Bld) [Entitic vol] 9.4 fL 9.0 - 12.7 fL [facility] Platelets (Bld) [#/Vol] 154 10*3/uL 150 - 400 k/uL [facility] RBC (Bld) [#/Vol] 3.55 10*6/uL Low 3.90 - 5.2 0 m/uL [facility] WBC (Bld) [#/Vol] 5.80 10*3/uL 3.70 - 11.00 k/uL [facility] CORTISOL BLDon 06-08-2023 Cortisol [Mass/Vol] 12.7 ug/dL 4.8 - 19 .5 ug/dL [facility] Comprehensive metabolic 2000 panelon 06-08-2023 Albumin [Mass/Vol] 3.8 g/dL Low 3.9 - 4.9 g/dL [facility] ALP [Catalytic activity/Vol] 76 U/L 34 - 123 U/L [facility] ALT [Catalytic activity/Vol] 11 U/L 7 - 38 U/L [facility] Anion gap [Moles/Vol] 7 mmol/L Low 9 - 18 mmol/L [facility] AST [Catalytic activity/Vol] 9 U/L Low 13 - 35 U/L [facility] Bilirubin [Mass/Vol] 0.2 mg/dL 0.2 - 1 .3 mg/dL [facility] Calcium [Mass/Vol] 9.4 mg/dL 8.5 - 10. 2 mg/dL [facility] Chloride [Moles/Vol] 100 mmol/L 97 - 10 5 mmol/L [facility] CO2 [Moles/Vol] 28 mmol/L 22 - 30 mmol/L [facility] Creatinine [Mass/Vol] 0.87 mg/dL 0.58 - 0.96 mg/dL [facility] Estimated Glomerular Filtration Rate 69 mL/min/1.73m >=60 mL/min/1.73 m [facility] Glucose [Mass/Vol] 307 mg/dL High 74 - 99 mg/dL [facility] Potassium [Moles/Vol] 4.4 mmol/L 3.7 - 5.1 mmol/L [facility] Protein [Mass/Vol] 6.7 g/dL 6.3 - 8.0 g/dL [facility] Sodium [Moles/Vol] 135 mmol/L Low 136 - 144 mmol/L [facility] Urea nitrogen [Mass/Vol] 26 mg/dL High 7 - 21 mg/dL [facility] MAGNESIUM [facility] 06-08-2023 Magnesium [Mass/Vol] 1.4 mg/dL Low 1.7 - 2 .3 mg/dL [facility] T4 FREE/FREE THYROXon 2023 Free T4 [Mass/Vol] 1.2 ng/dL 0.9 - 1.7 ng/dL [facility] TSH [facility] 06-08-2023 TSH Qn 1.420 m[IU]/L 0.270 - 4.200 mIU/L [facility] Renal function 2000 panelon 04-13-2023 Albumin [Mass/Vol] 3.6 g/dL Low 3.9 - 4.9 g/dL [facility] Anion gap [Moles/Vol] 8 mmol/L Low 9 - 18 mmol/L [facility] Calcium [Mass/Vol] 8.9 mg/dL 8.5 - 10. 2 mg/dL [facility] Chloride [Moles/Vol] 105 mmol/L 97 - 10 5 mmol/L [facility] CO2 [Moles/Vol] 27 mmol/L 22 - 30 mmol/L [facility] Creatinine [Mass/Vol] 0.91 mg/dL 0.58 - 0.96 mg/dL [facility] Estimated Glomerular Filtration Rate 65 mL/min/1.73m >=60 mL/min/1.73 m [facility] Glucose [Mass/Vol] 136 mg/dL High 74 - 99 mg/dL [facility] Phosphate [Mass/Vol] 2.9 mg/dL 2.7 - 4 .8 mg/dL [facility] Potassium [Moles/Vol] 4.0 mmol/L 3.7 - 5.1 mmol/L [facility] Sodium [Moles/Vol] 140 mmol/L 136 - 144 mmol/L [facility] Urea nitrogen [Mass/Vol] 16 mg/dL 7 - 21 mg/dL [facility] Thin prep Papanicolaou smear with manual screeningOrdered By: Ramy Anglin on 04-12-2023 Thin prep Papanicolaou smear with manual screening 164 mg/dL 74-106 [facility] Comment on above: MANAGEMENT OF PATIEN T CARE PER NURSING PROTOCOL Absolute lymphocyte countOrd ered By: Syed Muñiz on 04-11-2023 Lymphocytes Auto (Unsp spec) [#/Vol] 0.95 10*3/uL 0.83-4.51 [facility] Automated lymphocyte count a s percentage of total leukocytesOrdered By: Syed Muñiz on 04-11-2023 Lymphocytes/100 WBC Auto (Unsp spec) 25.5 % 19-41 [facility] Basophil percentageOrdered B y: Syed Muñiz on 04-11-2023 Basophils/100 WBC (Bld) 0.5 % 0-1 [facility] Chloride [Moles/Vol] 107 mmol/L 98-107 [facility] Eosinophils/100 WBC (Bld) 0.5 % 0-5 [facility] Glucose [Mass/Vol] 66 mg/dL 74-106 [facility] Hemoglobin (Bld) [Mass/Vol] 9.2 g/dL 12.0-15.0 [facility] Monocytes/100 WBC (Bld) 18.2 % 0-10 [facility] Neutrophils (Bld) [#/Vol] 2.1 10*3/uL 2.0-7.7 [facility] Neutrophils/100 WBC (Bld) 55.0 % 47-70 [facility] Potassium [Moles/Vol] 3.8 mmol/L 3.5-5.1 [facility] Sodium [Moles/Vol] 139 mmol/L 136-145 [facility] WBC (Bld) [#/Vol] 3.7 10*3/uL 4.4-11.0 [facility] Determination of erythrocyte mean corpuscular volume (MCV)Ordered By: Syed Muñiz on 04-11-2023 MCV (RBC) [Entitic vol] 94.8 fL 81-99 [facility] Erythrocyte distribution wid th ratioOrdered By: Syed Muñiz on 04-11-2023 Erythrocyte distribution width (RBC) [Ratio] 14.9 % 11.6-14.6 [facility] Erythrocyte distribution wid th standard deviationOrdered By: Syed Muñiz on 04-11-2023 Erythrocyte distribution width (RBC) [Entitic vol] 51.7 fL 35.1-43.9 [facility] Hematocrit Auto (Bld) [Volum e fraction]Ordered By: Syed Muñiz on 04-11-2023 Hematocrit (Bld) [Volume fraction] 29.0 % 37-47 [facility] Immature granulocytes/100 WB C Auto (Bld)Ordered By: Syed Muñiz on 04-11-2023 Immature granulocytes/100 WBC (Bld) 0.300 % 0.0-0.9 [facility] Comment on above: IG% - Immature Granu locytes (promyelocytes, myelocytes and metamyelocytes) > 1% indicates that a LEFT SHIFT is Present. Laboratory - Chemistry and C hemistry - challengeOrdered By: Syed Muñiz on 04-11-2023 CO2 [Moles/Vol] 27.0 mmol/L 21.0-32.0 [facility] Urea nitrogen/Creatinine [Mass ratio] 20.8 mg/mg 10-20 [facility] Laboratory - Hematology and Cell countsOrdered By: Syed Muñiz on 04-11-2023 MCH (RBC) [Entitic mass] 30.1 pg 27.0-32.0 [facility] MCHC (RBC) [Mass/Vol] 31.7 g/dL 32-36 [facility] Nucleated RBC/100 WBC (Bld) [Ratio] 0 % 0-5 [facility] Platelet mean volume (Bld) [Entitic vol] 9.9 fL 6.2-12.0 [facility] Platelets (Bld) [#/Vol] 146 10*3/uL 150-450 [facility] No Panel InformationOrdered By: Syed Muñiz on 04-11-2023 Estimated Creatinine Clearance Calc 60.01 ml/min [facility] Estimated GFR (MDRD) Amer 65 mL/min >60 [facility] [facility] Comment on above: GFR Calc Estimated GFR (MDRD) Non-Af Amer 53 mL/min >60 [facility] Comment on above: Non- GFR Calc RBC Auto (Bld) [#/Vol]Ordere d By: Syed Muñiz on 04-11-2023 RBC (Bld) [#/Vol] 3.06 10*6/uL 4.2-5.4 [facility] Serum or plasma calcium ryanne urement (mass/volume)Ordered By: Syed Muñiz on 04-11-2023 Calcium [Mass/Vol] 8.2 mg/dL 8.5-10.1 [facility] Serum or plasma creatinine m easurement (mass/volume)Ordered By: Syed Muñiz on 04-11-2023 Creatinine [Mass/Vol] 1.06 mg/dL 0.55-1.02 [facility] Comment on above: The validity of the calculated GFR & GFRAA in patients over 70 years has not been determined. Clinical correlation is essential. Serum or plasma thyroid stim ulating hormone (TSH) measurement (units/volume)Ordered By: Syed Muñiz on 04-11-2023 TSH Qn 0.45 uIU/mL 0.358-3.74 [facility] Serum or plasma urea nitroge n measurement (mass/volume)Ordered By: Syed Muñiz on 04-11-2023 Urea nitrogen [Mass/Vol] 22 mg/dL 7-18 [facility] Thin prep Papanicolaou smear with manual screeningOrdered By: Syed Muñiz on 04-11-2023 Thin prep Papanicolaou smear with manual screening 5 5-15 [facility] Absolute lymphocyte countOrd ered By: Tadeo Hutchinson on 04-10-2023 Lymphocytes Auto (Unsp spec) [#/Vol] 0.72 10*3/uL 0.83-4.51 [facility] Activated partial thrombopla stin time (aPTT) in platelet poor plasma by coagulation aOrdered By: Tadeo Hutchinson on 04-10-2023 aPTT Coag (PPP) [Time] 33.5 s 24.1-36.2 [facility] Comment on above: REDRAW SPECIMEN Automated lymphocyte count a s percentage of total leukocytesOrdered By: Tadeo Hutchinson on 04-10-2023 Lymphocytes/100 WBC Auto (Unsp spec) 13.2 % 19-41 [facility] Basophil percentageOrdered B y: Tadeo Hutchinson on 04-10-2023 Lactate [Moles/Vol] 1.8 mmol/L 0.4-2.0 [facility] Basophil percentage 25-50 SEEN /hpf 0-5 [facility] Basophils/100 WBC (Bld) 0.2 % 0-1 [facility] Bilirubin [Mass/Vol] 0.40 mg/dL 0.20-1.00 [facility] Comment on above: For patients on eltr ombopag therapy, use of Dimension [place] TBIL is not recommended. Chloride [Moles/Vol] 100 mmol/L 98-107 [facility] Eosinophils/100 WBC (Bld) 0.2 % 0-5 [facility] Glucose [Mass/Vol] 173 mg/dL 74-106 [facility] Comment on above: Fasting Glucose resu lt greater than or equal to 126 mg/dL suggests DIABETES MELLITUS per A.D.A. criteria. Hemoglobin (Bld) [Mass/Vol] 10.0 g/dL 12.0-15.0 [facility] Monocytes/100 WBC (Bld) 14.1 % 0-10 [facility] Neutrophils (Bld) [#/Vol] 3.9 10*3/uL 2.0-7.7 [facility] Neutrophils/100 WBC (Bld) 72.1 % 47-70 [facility] Potassium [Moles/Vol] 4.0 mmol/L 3.5-5.1 [facility] Protein [Mass/Vol] 6.9 g/dL 6.4-8.2 [facility] Sodium [Moles/Vol] 135 mmol/L 136-145 [facility] WBC (Bld) [#/Vol] 5.5 10*3/uL 4.4-11.0 [facility] Basophil percentageOrdered B y: Syedomar Muñiz on 04-10-2023 Basophil percentage 3.7 mg/dL 2.5-4.9 [facility] Bilirubin Test strip Ql (U)O rdered By: Tadeo Hutchinson on 04-10-2023 Bilirubin Ql (U) 1 mg/dL Negative [facility] Comment on above: YCOLOR OF URINE MAY AFFECT DIPSTICK RESULTS. Culture, urineOrdered By: Do nori Htuchinson on 04-10-2023 Bacteria identified Cx Nom (U) Klebsiella oxytoca [facility] Determination of erythrocyte mean corpuscular volume (MCV)Ordered By: Tadeo Hutchinson on 04-10-2023 MCV (RBC) [Entitic vol] 94.9 fL 81-99 [facility] Erythrocyte distribution wid th ratioOrdered By: Tadeo Hutchinson on 04-10-2023 Erythrocyte distribution width (RBC) [Ratio] 14.8 % 11.6-14.6 [facility] Erythrocyte distribution wid th standard deviationOrdered By: Tadeo Hutchinson on 04-10-2023 Erythrocyte distribution width (RBC) [Entitic vol] 51.3 fL 35.1-43.9 [facility] Hematocrit Auto (Bld) [Volum e fraction]Ordered By: Tadeo Hutchinson on 04-10-2023 Hematocrit (Bld) [Volume fraction] 31.8 % 37-47 [facility] Hyaline casts LM.LPF (Urine sed) [#/Area]Ordered By: Tadeo Hutchinson on 04-10-2023 Hyaline casts (Urine sed) [#/Area] 0 /[LPF] 0-5 [facility] Immature granulocytes/100 WB C Auto (Bld)Ordered By: Tadeo Hutchinson on 04-10-2023 Immature granulocytes/100 WBC (Bld) 0.200 % 0.0-0.9 [facility] Comment on above: IG% - Immature Granu locytes (promyelocytes, myelocytes and metamyelocytes) > 1% indicates that a LEFT SHIFT is Present. Ketones Test strip Ql (U)Ord ered By: Tadeo Hutchinson on 04-10-2023 Ketones Ql (U) 5 mg/dl Negative [facility] Laboratory - Chemistry and C hemistry - challengeOrdered By: Tadeo Hutchinson on 04-10-2023 Albumin/Globulin [Mass ratio] 0.9 {ratio} 0.9-2.4 [facility] ALP [Catalytic activity/Vol] 65 U/L 45-117 [facility] ALT [Catalytic activity/Vol] 40 U/L 13-56 [facility] CO2 [Moles/Vol] 28.0 mmol/L 21.0-32.0 [facility] Globulin (S) [Mass/Vol] 3.7 g/dL 2.2-4.2 [facility] Urea nitrogen/Creatinine [Mass ratio] 14.9 mg/mg 10-20 [facility] Laboratory - Chemistry and C hemistry - challengeOrdered By: Syed Muñiz on 04-10-2023 Magnesium [Mass/Vol] 1.7 mg/dL 1.6-2.6 [facility] Laboratory - CoagulationOrde red By: Tadeo Hutchinson on 04-10-2023 INR Coag (Bld) [Relative time] 1.1 {INR} [facility] PT Coag (PPP) [Time] 14.7 s 11.7-14.9 [facility] Laboratory - Hematology and Cell countsOrdered By: Tadeo Hutchinson on 04-10-2023 MCH (RBC) [Entitic mass] 29.9 pg 27.0-32.0 [facility] MCHC (RBC) [Mass/Vol] 31.4 g/dL 32-36 [facility] Nucleated RBC/100 WBC (Bld) [Ratio] 0 % 0-5 [facility] Platelet mean volume (Bld) [Entitic vol] 10.2 fL 6.2-12.0 [facility] Platelets (Bld) [#/Vol] 158 10*3/uL 150-450 [facility] Laboratory - Microbiology an d Antimicrobial susceptibilityOrdered By: Tadeo Hutchinson on 04-10-2023 SARS-CoV-2 (COVID-19) RNA PEDRO LUIS+probe Ql (Unsp spec) [facility] Mucus LM Ql (Urine sed)Order ed By: Tadeo Hutchinson on 04-10-2023 Mucus Ql (Urine sed) 0 SEEN /hpf [facility] Nitrite Test strip Ql (U)Ord ered By: Tadeo Hutchinson on 04-10-2023 Nitrite Ql (U) Negative Negative [facility] No Panel InformationOrdered By: Tadeo Hutchinson on 04-10-2023 Urine RBC 0-5 SEEN /hpf 0-5 [facility] Estimated GFR (MDRD) Amer 44 mL/min >60 [facility] Comment on above: GFR Calc Estimated GFR (MDRD) Non-Af Amer 36 mL/min >60 [facility] Comment on above: Non- GFR Calc Troponin I High Sensitivity 20 pg/mL 3.0-54.0 [facility] Comment on above: Please Note: New Tobi t Units and Gender Specific Reference Ranges. For more information see Policy Stat Procedure [place] High Sensitivity Troponin (TNIH) and attachments. Protein Test strip Ql (U)Ord ered By: Tadeo Hutchinson on 04-10-2023 Protein Ql (U) 100 mg/dl Negative [facility] RBC Auto (Bld) [#/Vol]Ordere d By: Tadeo Hutchinson on 04-10-2023 RBC (Bld) [#/Vol] 3.35 10*6/uL 4.2-5.4 [facility] Serum or plasma calcium ryanne urement (mass/volume)Ordered By: Tadeo Hutchinson on 04-10-2023 Calcium [Mass/Vol] 9.1 mg/dL 8.5-10.1 [facility] Serum or plasma creatinine m easurement (mass/volume)Ordered By: Tadeo Hutchinson on 04-10-2023 Creatinine [Mass/Vol] 1.48 mg/dL 0.55-1.02 [facility] Comment on above: The validity of the calculated GFR & GFRAA in patients over 70 years has not been determined. Clinical correlation is essential. Serum or plasma urea nitroge n measurement (mass/volume)Ordered By: Tadeo Hutchinson on 04-10-2023 Urea nitrogen [Mass/Vol] 22 mg/dL 7-18 [facility] Squamous epithelial cells de tection in urine sediment by light microscopyOrdered By: Tadeo Hutchinson on 04-10-2023 Epithelial cells.squamous LM Ql (Urine sed) 5-10 SEEN /hpf 5-10 [facility] Thin prep Papanicolaou smear with manual screeningOrdered By: Tadeo Hutchinson on 04-10-2023 Thin prep Papanicolaou smear with manual screening 3.2 g/dL 3.2-5.0 [facility] Thin prep Papanicolaou smear with manual screening 63 U/L 15-37 [facility] Thin prep Papanicolaou smear with manual screening 7 5-15 [facility] Urine blood detectionOrdered By: Tadeo Hutchinson on 04-10-2023 RBC Ql (U) 50 /ul Negative [facility] Urine clarityOrdered By: Justin Hutchinson on 04-10-2023 Clarity (U) Cloudy Clear [facility] Urine color determinationOrd ered By: Tadeo Hutchinson on 04-10-2023 Color (U) Yellow Yellow [facility] Urine glucose detectionOrder ed By: Tadeo Hutchinson on 04-10-2023 Glucose Ql (U) Normal mg/dl Normal [facility] Urine leukocyte esterase det ection by dipstickOrdered By: Tadeo Hutchinson on 04-10-2023 Leukocyte esterase Test strip Ql (U) 500 /ul Negative [facility] Urine pHOrdered By: Tadeo sandra on 04-10-2023 pH (U) 5.0 [pH] 5.0 - 8.0 [facility] Urine sediment bacteria coun t by microscopy (number/high power field)Ordered By: Tadeo Hutchinson on 04-10-2023 Bacteria LM.HPF (Urine sed) [#/Area] 1 /[HPF] None Seen [facility] Urine sediment renal epithel ial cell count by microscopy (number/high power field)Ordered By: Tadeo Hutchinson on 04-10-2023 Epithelial cells.renal LM.HPF (Urine sed) [#/Area] 5 /[HPF] 0-5 [facility] Urine specific gravity measu rementOrdered By: Tadeo Hutchinson on 04-10-2023 Specific gravity (U) [Rel density] 1.020 1.002-1.030 [facility] Urine urobilinogen measureme ntOrdered By: Tadeo Hutchinson on 04-10-2023 Urobilinogen Ql (U) Normal mg/dl Normal [facility] CBC W Auto Differential pane l (Bld)on 04-06-2023 Basophils (Bld) [#/Vol] 0.06 10*3/uL <0.11 k/uL [facility] Basophils/100 WBC (Bld) 1.0 % [facility] Differential cell count method Nom (Bld) Auto [facility] Eosinophils (Bld) [#/Vol] 0.16 10*3/uL <0.46 k/uL [facility] Eosinophils/100 WBC (Bld) 2.5 % [facility] Erythrocyte distribution width (RBC) [Ratio] 14.5 % 11.5 - 15.0 % [facility] Hematocrit (Bld) [Volume fraction] 32.8 % Low 36.0 - 46.0 % [facility] Hemoglobin (Bld) [Mass/Vol] 10.5 g/dL Low 11.5 - 15.5 g/dL [facility] Immature granulocytes (Bld) [#/Vol] 0.03 10*3/uL <0.10 k/uL [facility] Immature granulocytes/100 WBC (Bld) 0.5 % [facility] Lymphocytes (Bld) [#/Vol] 1.17 10*3/uL 1.00 - 4.00 k/uL [facility] Lymphocytes/100 WBC (Bld) 18.6 % [facility] MCH (RBC) [Entitic mass] 30.3 pg 26.0 - 34.0 pg [facility] MCHC (RBC) [Mass/Vol] 32.0 g/dL 30.5 - 36.0 g/dL [facility] MCV (RBC) [Entitic vol] 94.8 fL 80.0 - 100.0 fL [facility] Monocytes (Bld) [#/Vol] 0.51 10*3/uL <0.87 k/uL [facility] Monocytes/100 WBC (Bld) 8.1 % [facility] Neutrophils (Bld) [#/Vol] 4.37 10*3/uL 1.45 - 7.50 k/uL [facility] Neutrophils/100 WBC (Bld) 69.3 % [facility] Nucleated RBC (Bld) [#/Vol] <0.01 k/uL [facility] Nucleated RBC/100 WBC (Bld) [Ratio] 0.0 /100 WBC [facility] Platelet mean volume (Bld) [Entitic vol] 10.2 fL 9.0 - 12.7 fL [facility] Platelets (Bld) [#/Vol] 208 10*3/uL 150 - 400 k/uL [facility] RBC (Bld) [#/Vol] 3.46 10*6/uL Low 3.90 - 5.2 0 m/uL [facility] WBC (Bld) [#/Vol] 6.30 10*3/uL 3.70 - 11.00 k/uL [facility] Comprehensive metabolic 2000 panelon 04-06-2023 Albumin [Mass/Vol] 3.8 g/dL Low 3.9 - 4.9 g/dL [facility] ALP [Catalytic activity/Vol] 67 U/L 34 - 123 U/L [facility] ALT [Catalytic activity/Vol] 16 U/L 7 - 38 U/L [facility] Anion gap [Moles/Vol] 13 mmol/L 9 - 18 mmol/L [facility] AST [Catalytic activity/Vol] 11 U/L Low 13 - 35 U/L [facility] Bilirubin [Mass/Vol] 0.4 mg/dL 0.2 - 1 .3 mg/dL [facility] Calcium [Mass/Vol] 9.3 mg/dL 8.5 - 10. 2 mg/dL [facility] Chloride [Moles/Vol] 98 mmol/L 97 - 10 5 mmol/L [facility] CO2 [Moles/Vol] 27 mmol/L 22 - 30 mmol/L [facility] Creatinine [Mass/Vol] 0.99 mg/dL High 0.58 - 0.96 mg/dL [facility] Estimated Glomerular Filtration Rate 59 mL/min/1.73m Low >=60 mL/min/1.73 m [facility] Glucose [Mass/Vol] 361 mg/dL High 74 - 99 mg/dL [facility] Potassium [Moles/Vol] 4.3 mmol/L 3.7 - 5.1 mmol/L [facility] Protein [Mass/Vol] 6.4 g/dL 6.3 - 8.0 g/dL [facility] Sodium [Moles/Vol] 138 mmol/L 136 - 144 mmol/L [facility] Urea nitrogen [Mass/Vol] 20 mg/dL 7 - 21 mg/dL [facility] MAGNESIUM BLDon 04-06-2023 Magnesium [Mass/Vol] 1.3 mg/dL Low 1.7 - 2 .3 mg/dL [facility] XR Shoulder - right 3 Viewso n 03-25-2023 IMPRESSION: No acute osseous abnormality [employer] Covering Assistant: KRISTOFER Transcribe Date/Time: Mar 25 2023 12:48P Dictated by : VANESSA POWER MD This examination was interpreted and the report reviewed and electronically signed by: VANESSA POWER MD on Mar 25 2023 12:49PM [facility] DIVISION OF RADIOLOGY * * *Final Report* * * DATE OF EXAM: Mar 24 2023 12:55PM WOX [id number] - XR SHLDR >/=3V AP/JACK AP/OTHR RT / PROCEDURE REASON: multiple diagnoses * * * * Physician Interpretation * * * * EXAMINATION: XR SHLDR >/=3V AP/JACK AP/OTHR RT CLINICAL HISTORY: Chronic right shoulder pain Technique: XR SHLDR >/=3V AP/JACK AP/OTHR RT -- RIGHT with 3 views on 3 images Comparison: X-ray right shoulder 05/27/2020 RESULT: No acute fracture or dislocation. Glenohumeral joint space is maintained. There is acromioclavicular joint space narrowing with marginal osteophytes. DIVISION OF RADIOLOGY Provider, Rickey Jordan - 03/25/2023 * * *Final Report* * * DATE OF EXAM: Mar 24 2023 12:55PM WOX [id number] - XR SHLDR >/=3V AP/JACK AP/OTHR RT / PROCEDURE REASON: multiple diagnoses * * * * Physician Interpretation * * * * EXAMINATION: XR SHLDR >/=3V AP/JACK AP/OTHR RT CLINICAL HISTORY: Chronic right shoulder pain Technique: XR SHLDR >/=3V AP/JACK AP/OTHR RT -- RIGHT with 3 views on 3 images Comparison: X-ray right shoulder 05/27/2020 RESULT: No acute fracture or dislocation. Glenohumeral joint space is maintained. There is acromioclavicular joint space narrowing with marginal osteophytes. IMPRESSION IMPRESSION: No acute osseous abnormality Printer Floor Covering Assistant: [facility] Transcribe Date/Time: Mar 25 2023 12:48P Dictated by : VANESSA POWER MD This examination was interpreted and the report reviewed and electronically signed by: VANESSA POWER MD on Mar 25 2023 12:49PM EST [facility] XR Shoulder - right 3 ViewsO rdered By: Cc Provider on 03-25-2023 [facility] XR Shoulder - right 3 Viewso n 03-24-2023 Radiology Study observation (narrative) [facility] CA 125 Don 03-16-2023 Cancer Ag 125 Qn 11 [arb'U]/mL NINF - 39 U/mL [facility] Comment on above: CA 125 test methodol ogy used is the Electrochemiluminescence Immunoassay by [facility]. Results obtained with different methods or kits cannot be used interchangeably. The reference interval is based on the 95th percentile of 240 apparently healthy premenopausal and postmenopausal women. At a cutoff value of 65 U/mL, the test sensitivity to distinguish ovarian carcinoma (FIGO stage I to IV) versus benign gynecological disease is 79%, with a specificity of 82%. Reference: Cancer Antigen 125 (CA 125 II) [package insert V 1.0 Far[place]ese]. [facility], [place], [place] (November 2014) CBC W Auto Differential pane l (Bld)on 03-16-2023 Basophils (Bld) [#/Vol] 0.05 10*3/uL [facility] Basophils/100 WBC (Bld) 0.9 % [facility] Differential cell count method Nom (Bld) Auto [facility] Eosinophils (Bld) [#/Vol] 0.36 10*3/uL [facility] Eosinophils/100 WBC (Bld) 6.6 % [facility] Erythrocyte distribution width (RBC) [Ratio] 13.8 % 11.5 - 15.0 % [facility] Hematocrit (Bld) [Volume fraction] 33.3 % Low 36.0 - 46.0 % [facility] Hemoglobin (Bld) [Mass/Vol] 11.0 g/dL Low 11.5 - 15.5 g/dL [facility] Immature granulocytes (Bld) [#/Vol] [facility] Immature granulocytes/100 WBC (Bld) 0.4 % [facility] Interpretation and review of laboratory results Abnormal [facility] Lymphocytes (Bld) [#/Vol] 1.12 10*3/uL [facility] Lymphocytes/100 WBC (Bld) 20.5 % [facility] MCH (RBC) [Entitic mass] 31.1 pg 26.0 - 34.0 pg [facility] MCHC (RBC) [Mass/Vol] 33.0 g/dL 30.5 - 36.0 g/dL [facility] MCV (RBC) [Entitic vol] 94.1 fL 80.0 - 100.0 fL [facility] Monocytes (Bld) [#/Vol] 0.53 10*3/uL [facility] Monocytes/100 WBC (Bld) 9.7 % [facility] Neutrophils (Bld) [#/Vol] 3.38 10*3/uL [facility] Neutrophils/100 WBC (Bld) 61.9 % [facility] Nucleated RBC (Bld) [#/Vol] [facility] Nucleated RBC/100 WBC (Bld) [Ratio] 0.0 % /100 WBC [facility] Platelet mean volume (Bld) [Entitic vol] 9.4 fL 9.0 - 12.7 fL [facility] Platelets (Bld) [#/Vol] 166 10*3/uL [facility] RBC (Bld) [#/Vol] 3.54 10*6/uL Low 3.90 - 5.2 0 m/uL [facility] WBC (Bld) [#/Vol] 5.46 10*3/uL [facility] CORTISOL BLDon 03-16-2023 Cortisol [Mass/Vol] 22.9 ug/dL High 4.8 - 19 .5 ug/dL [facility] Comment on above: Provided reference r ely is from 6-10 AM sample collection time. Cortisol Reference Range: 6-10 AM = 4.8-19.5 ug/dL, 4-8 PM = 2.5-11.9 ug/dL Cancer Ag 125 Qnon Interpretation and review of laboratory results Normal [facility] Comprehensive metabolic 2000 panelOrdered By: Tatyana Frost on 03-16-2023 Albumin [Mass/Vol] 3.9 g/dL 3.9 - 4.9 g/dL [facility] ALP [Catalytic activity/Vol] 78 U/L 34 - 123 U/L [facility] ALT [Catalytic activity/Vol] 15 U/L 7 - 38 U/L [facility] Anion gap [Moles/Vol] 10 mmol/L 9 - 18 mmol/L [facility] AST [Catalytic activity/Vol] 12 U/L Low 13 - 35 U/L [facility] Bilirubin [Mass/Vol] 0.3 mg/dL 0.2 - 1 .3 mg/dL [facility] Calcium [Mass/Vol] 9.3 mg/dL 8.5 - 10. 2 mg/dL [facility] Chloride [Moles/Vol] 99 mmol/L 97 - 10 5 mmol/L [facility] CO2 [Moles/Vol] 27 mmol/L 22 - 30 mmol/L [facility] Creatinine [Mass/Vol] 0.99 mg/dL High 0.58 - 0.96 mg/dL [facility] GFR/1.73 sq M.predicted among non-blacks MDRD (S/P/Bld) [Vol rate/Area] 59 mL/min/{1.73_m2} Low - PINF [facility] Comment on above: Estimated Glomerular Filtration Rate (eGFR) is calculated using the 2020 CKD-EPI creatinine equation. This equation utilizes serum creatinine, sex, and age as parameters. The creatinine assay has traceable calibration to isotope dilution-mass spectrometry. Refer to KDIGO guidelines for clinical interpretation. In patients with unstable renal function, e.g. those with acute kidney injury, the eGFR may not accurately reflect actual GFR. Glucose [Mass/Vol] 322 mg/dL High 74 - 99 mg/dL [facility] Comment on above: The [place] Diab[employer] s Association (ADA) provides guidance for cutoff values for fasting glucose and random glucose. The ADA defines fasting as no caloric intake for at least 8 hours. Fasting plasma glucose results between 100 to 125 mg/dL indicate increased risk for diabetes (prediabetes). Fasting plasma glucose results greater than or equal to 126 mg/dL meet the criteria for diagnosis of diabetes. In the absence of unequivocal hyperglycemia, results should be confirmed by repeat testing. In a patient with classic symptoms of hyperglycemia or hyperglycemic crisis, random plasma glucose results greater than or equal to 200 mg/dL meet the criteria for diagnosis of diabetes. Reference: Standards of Medical Care in Diabetes 2016, [place] [employer]. Diabetes Care. 2016.39(Suppl 1). Interpretation and review of laboratory results Abnormal [facility] Potassium [Moles/Vol] 4.4 mmol/L 3.7 - 5.1 mmol/L [facility] Protein [Mass/Vol] 6.8 g/dL 6.3 - 8.0 g/dL [facility] Sodium [Moles/Vol] 136 mmol/L 136 - 144 mmol/L [facility] Urea nitrogen [Mass/Vol] 22 mg/dL High 7 - 21 mg/dL [facility] Cortisol [Mass/Vol]on 2023 Interpretation and review of laboratory results Abnormal [facility] MAGNESIUM Don 03-16-2023 Magnesium [Mass/Vol] 1.6 mg/dL Low 1.7 - 2 .3 mg/dL [facility] Magnesium [Mass/Vol]on 03-16 Interpretation and review of laboratory results Abnormal [facility] No Panel Informationon 03-16 Interpretation and review of laboratory results Normal [facility] T4 FREE/FREE THYROXon 2023 Free T4 [Mass/Vol] 1.1 ng/dL 0.9 - 1.7 ng/dL [facility] TSH BLDon 03-16-2023 TSH Qn 1.550 m[IU]/L [facility] Absolute lymphocyte countOrd ered By: Bing Doran on 03-12-2023 Lymphocytes Auto (Unsp spec) [#/Vol] 1.09 10*3/uL 0.83-4.51 [facility] Basophil percentageOrdered B y: Bing Doran on 03-12-2023 Basophil percentage 3.6 mg/dL 2.5-4.9 [facility] Basophils/100 WBC (Bld) 0.4 % 0-1 [facility] Chloride [Moles/Vol] 109 mmol/L 98-107 [facility] Eosinophils/100 WBC (Bld) 4.6 % 0-5 [facility] Glucose [Mass/Vol] 152 mg/dL 74-106 [facility] Comment on above: Fasting Glucose resu lt greater than or equal to 126 mg/dL suggests DIABETES MELLITUS per A.D.A. criteria. Neutrophils (Bld) [#/Vol] 5.0 10*3/uL 2.0-7.7 [facility] Neutrophils/100 WBC (Bld) 69.9 % 47-70 [facility] Potassium [Moles/Vol] 4.2 mmol/L 3.5-5.1 [facility] Sodium [Moles/Vol] 141 mmol/L 136-145 [facility] WBC (Bld) [#/Vol] 7.2 10*3/uL 4.4-11.0 [facility] Blood erythrocytes count (nu mber/volume)Ordered By: Bing Doran on 03-12-2023 RBC (Bld) [#/Vol] 3.14 10*6/uL 4.2-5.4 [facility] Blood hemoglobin measurement (mass/volume)Ordered By: Bing Doran on 03-12-2023 Hemoglobin (Bld) [Mass/Vol] 9.7 g/dL 12.0-15.0 [facility] Blood lymphocytes/100 leukoc ytesOrdered By: Bing Doran on 03-12-2023 Lymphocytes/100 WBC (Bld) 15.1 % 19-41 [facility] Blood monocytes/100 leukocyt esOrdered By: Bing Doran on 03-12-2023 Monocytes/100 WBC (Bld) 9.7 % 0-10 [facility] Blood platelet mean volumeOr dered By: Bing Doran on 03-12-2023 Platelet mean volume (Bld) [Entitic vol] 10.3 fL 6.2-12.0 [facility] Determination of erythrocyte mean corpuscular volume (MCV)Ordered By: Bing Doran on 03-12-2023 MCV (RBC) [Entitic vol] 96.8 fL 81-99 [facility] Hematocrit Auto (Bld) [Volum e fraction]Ordered By: Bing Doran on 03-12-2023 Hematocrit (Bld) [Volume fraction] 30.4 % 37-47 [facility] Laboratory - Chemistry and C hemistry - challengeOrdered By: Bing Doran on 03-12-2023 CO2 [Moles/Vol] 26.0 mmol/L 21.0-32.0 [facility] Magnesium [Mass/Vol] 1.8 mg/dL 1.6-2.6 [facility] Urea nitrogen/Creatinine [Mass ratio] 25.5 mg/mg 10-20 [facility] Laboratory - Hematology and Cell countsOrdered By: Bing Doran on 03-12-2023 Erythrocyte distribution width (RBC) [Entitic vol] 50.6 fL 35.1-43.9 [facility] Erythrocyte distribution width (RBC) [Ratio] 14.4 % 11.6-14.6 [facility] Immature granulocytes/100 WBC (Bld) 0.300 % 0.0-0.9 [facility] Comment on above: IG% - Immature Granu locytes (promyelocytes, myelocytes and metamyelocytes) > 1% indicates that a LEFT SHIFT is Present. MCH (RBC) [Entitic mass] 30.9 pg 27.0-32.0 [facility] Nucleated RBC/100 WBC (Bld) [Ratio] 0 % 0-5 [facility] MCHC Auto (RBC) [Mass/Vol]Or dered By: Bing Doran on 03-12-2023 MCHC (RBC) [Mass/Vol] 31.9 g/dL 32-36 [facility] No Panel InformationOrdered By: Bing Doran on 03-12-2023 Estimated Creatinine Clearance Calc 60.57 ml/min [facility] Estimated GFR (MDRD) Amer 65 mL/min >60 [facility] Comment on above: GFR Calc Estimated GFR (MDRD) Non-Af Amer 53 mL/min >60 [facility] Comment on above: Non- GFR Calc Platelets bldOrdered By: Oscar Doran on 03-12-2023 Platelets (Bld) [#/Vol] 145 10*3/uL 150-450 [facility] Serum or plasma calcium ryanne urement (mass/volume)Ordered By: Bing Doran on 03-12-2023 Calcium [Mass/Vol] 9.3 mg/dL 8.5-10.1 [facility] Serum or plasma creatinine m easurement (mass/volume)Ordered By: Bing Doran on 03-12-2023 Creatinine [Mass/Vol] 1.06 mg/dL 0.55-1.02 [facility] Comment on above: The validity of the calculated GFR & GFRAA in patients over 70 years has not been determined. Clinical correlation is essential. Serum or plasma urea nitroge n measurement (mass/volume)Ordered By: Bing Doran on 03-12-2023 Urea nitrogen [Mass/Vol] 27 mg/dL 7-18 [facility] Thin prep Papanicolaou smear with manual screeningOrdered By: Bing Doran on 03-12-2023 Thin prep Papanicolaou smear with manual screening 6 5-15 [facility] Basophil percentageOrdered B y: Renata Culver on 03-11-2023 Bilirubin [Mass/Vol] 0.20 mg/dL 0.20-1.00 [facility] Comment on above: For patients on eltr ombopag therapy, use of Dimension [place] TBIL is not recommended. Protein [Mass/Vol] 6.2 g/dL 6.4-8.2 [facility] Laboratory - Chemistry and C hemistry - challengeOrdered By: Renata Culver on 03-11-2023 ALP [Catalytic activity/Vol] 61 U/L 45-117 [facility] ALT [Catalytic activity/Vol] 16 U/L 13-56 [facility] Globulin (S) [Mass/Vol] 3.3 g/dL 2.2-4.2 [facility] Serum or plasma albumin ryanne urement (mass/volume)Ordered By: Renata Culver on 03-11-2023 Albumin [Mass/Vol] 2.9 g/dL 3.2-5.0 [facility] Serum or plasma albumin/glob ulin mass ratioOrdered By: Renata White on 03-11-2023 Albumin/Globulin [Mass ratio] 0.9 {ratio} 0.9-2.4 [facility] Thin prep Papanicolaou smear with manual screeningOrdered By: Renata Palomo on 03-11-2023 Thin prep Papanicolaou smear with manual screening 11 U/L 15-37 [facility] Absolute lymphocyte countOrd ered By: Myron Marcus on 03-10-2023 Lymphocytes Auto (Unsp spec) [#/Vol] 1.33 10*3/uL 0.83-4.51 [facility] Basophil percentageOrdered B y: Myron Marcus on 03-10-2023 Lactate [Moles/Vol] 3.1 mmol/L 0.4-2.0 [facility] Comment on above: Critical Result(s) C alled at: 21:36:00 03/10/2023 by: Sena Mcintosh. Results read back by same. Basophil percentage >100 SEEN /hpf 0-5 [facility] Comment on above: Microscopic field is filled. Other elements may be obscured. Lactate [Moles/Vol] 3.5 mmol/L 0.4-2.0 [facility] Comment on above: Critical Result(s) C alled at: 16:25:44 03/10/2023 by: Sena Moses. Results read back by same. Basophils/100 WBC (Bld) 0.7 % 0-1 [facility] Chloride [Moles/Vol] 103 mmol/L 98-107 [facility] Eosinophils/100 WBC (Bld) 6.5 % 0-5 [facility] Glucose [Mass/Vol] 253 mg/dL 74-106 [facility] Comment on above: Glucose result great er than or equal to 200 mg/dLsuggests DIABETES MELLITUS per A.D.A. criteria. Neutrophils (Bld) [#/Vol] 6.0 10*3/uL 2.0-7.7 [facility] Neutrophils/100 WBC (Bld) 69.8 % 47-70 [facility] Potassium [Moles/Vol] 4.0 mmol/L 3.5-5.1 [facility] Sodium [Moles/Vol] 136 mmol/L 136-145 [facility] WBC (Bld) [#/Vol] 8.6 10*3/uL 4.4-11.0 [facility] Bilirubin Test strip Ql (U)O rdered By: Myron Marcus on 03-10-2023 Bilirubin Ql (U) 1 mg/dL Negative [facility] Comment on above: COLOR OF URINE MAY A FFECT DIPSTICK RESULTS. Blood erythrocytes count (nu mber/volume)Ordered By: Myron Marcus on 03-10-2023 RBC (Bld) [#/Vol] 3.64 10*6/uL 4.2-5.4 [facility] Blood hemoglobin measurement (mass/volume)Ordered By: Myron Marcus on 03-10-2023 Hemoglobin (Bld) [Mass/Vol] 11.2 g/dL 12.0-15.0 [facility] Blood lymphocytes/100 leukoc ytesOrdered By: Myron Marcus on 03-10-2023 Lymphocytes/100 WBC (Bld) 15.4 % 19-41 [facility] Blood monocytes/100 leukocyt esOrdered By: Myron Marcus on 03-10-2023 Monocytes/100 WBC (Bld) 7.3 % 0-10 [facility] Blood platelet mean volumeOr dered By: Myron Marcus on 03-10-2023 Platelet mean volume (Bld) [Entitic vol] 10.6 fL 6.2-12.0 [facility] Culture, urineOrdered By: Kj Marcus on 03-10-2023 Bacteria identified Cx Nom (U) Positive [facility] Determination of erythrocyte mean corpuscular volume (MCV)Ordered By: Myron Marcus on 03-10-2023 MCV (RBC) [Entitic vol] 97.0 fL 81-99 [facility] Hematocrit Auto (Bld) [Volum e fraction]Ordered By: Myron Marcus on 03-10-2023 Hematocrit (Bld) [Volume fraction] 35.3 % 37-47 [facility] Ketones Test strip Ql (U)Ord ered By: Myron Marcus on 03-10-2023 Ketones Ql (U) Negative Negative [facility] Laboratory - Chemistry and C hemistry - challengeOrdered By: Myron Marcus on 03-10-2023 CO2 [Moles/Vol] 25.0 mmol/L 21.0-32.0 [facility] Urea nitrogen/Creatinine [Mass ratio] 20.1 mg/mg 10-20 [facility] Laboratory - Hematology and Cell countsOrdered By: Myron Marcus on 03-10-2023 Erythrocyte distribution width (RBC) [Entitic vol] 51.4 fL 35.1-43.9 [facility] Erythrocyte distribution width (RBC) [Ratio] 14.4 % 11.6-14.6 [facility] Immature granulocytes/100 WBC (Bld) 0.300 % 0.0-0.9 [facility] Comment on above: IG% - Immature Granu locytes (promyelocytes, myelocytes and metamyelocytes) > 1% indicates that a LEFT SHIFT is Present. MCH (RBC) [Entitic mass] 30.8 pg 27.0-32.0 [facility] Nucleated RBC/100 WBC (Bld) [Ratio] 0 % 0-5 [facility] Laboratory - Microbiology an d Antimicrobial susceptibilityOrdered By: Myron Marcus on 03-10-2023 Bacteria identified Cx Nom (Bld) No growth in 5 days. [facility] MCHC Auto (RBC) [Mass/Vol]Or dered By: Myron Marcus on 03-10-2023 MCHC (RBC) [Mass/Vol] 31.7 g/dL 32-36 [facility] Mucus LM Ql (Urine sed)Order ed By: Myron Marcus on 03-10-2023 Mucus Ql (Urine sed) 0 SEEN /hpf [facility] Nitrite Test strip Ql (U)Ord ered By: Myron Marcus on 03-10-2023 Nitrite Ql (U) Negative Negative [facility] No Panel InformationOrdered By: Myron Marcus on 03-10-2023 Estimated Creatinine Clearance Calc 40.29 ml/min [facility] Estimated GFR (MDRD) Amer 41 mL/min >60 [facility] Comment on above: GFR Calc Estimated GFR (MDRD) Non-Af Amer 33 mL/min >60 [facility] Comment on above: Non- GFR Calc Troponin I High Sensitivity 10 pg/mL 3.0-54.0 [facility] Comment on above: Please Note: New Tobi t Units and Gender Specific Reference Ranges. For more information see Policy Stat Procedure [place] High Sensitivity Troponin (TNIH) and attachments. Platelets bldOrdered By: Sylvie Marcus on 03-10-2023 Platelets (Bld) [#/Vol] 194 10*3/uL 150-450 [facility] Protein Test strip Ql (U)Ord ered By: Myron Marcus on 03-10-2023 Protein Ql (U) 100 mg/dl Negative [facility] Serum or plasma calcium ryanne urement (mass/volume)Ordered By: Myron Marcus on 03-10-2023 Calcium [Mass/Vol] 9.5 mg/dL 8.5-10.1 [facility] Serum or plasma creatinine m easurement (mass/volume)Ordered By: Myron Marcus on 03-10-2023 Creatinine [Mass/Vol] 1.59 mg/dL 0.55-1.02 [facility] Comment on above: The validity of the calculated GFR & GFRAA in patients over 70 years has not been determined. Clinical correlation is essential. Serum or plasma urea nitroge n measurement (mass/volume)Ordered By: Myron Marcus on 03-10-2023 Urea nitrogen [Mass/Vol] 32 mg/dL 7-18 [facility] Squamous epithelial cells de tection in urine sediment by light microscopyOrdered By: Myron Marcus on 03-10-2023 Epithelial cells.squamous LM Ql (Urine sed) 0 SEEN /hpf 5-10 [facility] Thin prep Papanicolaou smear with manual screeningOrdered By: Myron Marcus on 03-10-2023 Thin prep Papanicolaou smear with manual screening 8 5-15 [facility] Urine blood detectionOrdered By: Myron Marcus on 03-10-2023 RBC Ql (U) 50 /ul Negative [facility] RBC Ql (U) 0 SEEN /hpf 0-5 [facility] Urine clarityOrdered By: Sylvie Marcus on 03-10-2023 Clarity (U) Cloudy Clear [facility] Urine color determinationOrd ered By: Myron Marcus on 03-10-2023 Color (U) Yellow Yellow [facility] Urine glucose detectionOrder ed By: Myron Marcus on 03-10-2023 Glucose Ql (U) 1000 mg/dl Normal [facility] Urine leukocyte esterase det ection by dipstickOrdered By: Myron Marcus on 03-10-2023 Leukocyte esterase Test strip Ql (U) 500 /ul Negative [facility] Urine pHOrdered By: Myron prabhakar on 03-10-2023 pH (U) 6.0 [pH] 5.0 - 8.0 [facility] Urine sediment bacteria coun t by microscopy (number/high power field)Ordered By: Myron Marcus on 03-10-2023 Bacteria LM.HPF (Urine sed) [#/Area] 0 /[HPF] None Seen [facility] Urine specific gravity measu rementOrdered By: Myron Marcus on 03-10-2023 Specific gravity (U) [Rel density] 1.015 1.002-1.030 [facility] Urobilinogen Auto test strip Ql (U)Ordered By: Myron Marcus on 03-10-2023 Urobilinogen Ql (U) Normal mg/dl Normal [facility] CA 125 BLDon 02-18-2023 Cancer Ag 125 Qn 11 [arb'U]/mL <39 U/mL [facility] CBC W Auto Differential pane l (Bld)on 02-18-2023 Basophils (Bld) [#/Vol] <0.11 k/uL [facility] Basophils/100 WBC (Bld) 0.4 % [facility] Differential cell count method Nom (Bld) Auto [facility] Eosinophils (Bld) [#/Vol] 0.16 10*3/uL <0.46 k/uL [facility] Eosinophils/100 WBC (Bld) 3.2 % [facility] Erythrocyte distribution width (RBC) [Ratio] 14.5 % 11.5 - 15.0 % [facility] Hematocrit (Bld) [Volume fraction] 30.9 % Low 36.0 - 46.0 % [facility] Hemoglobin (Bld) [Mass/Vol] 10.2 g/dL Low 11.5 - 15.5 g/dL [facility] Immature granulocytes (Bld) [#/Vol] <0.10 k/uL [facility] Immature granulocytes/100 WBC (Bld) 0.4 % [facility] Lymphocytes (Bld) [#/Vol] 1.45 10*3/uL 1.00 - 4.00 k/uL [facility] Lymphocytes/100 WBC (Bld) 29.1 % [facility] MCH (RBC) [Entitic mass] 32.2 pg 26.0 - 34.0 pg [facility] MCHC (RBC) [Mass/Vol] 33.0 g/dL 30.5 - 36.0 g/dL [facility] MCV (RBC) [Entitic vol] 97.5 fL 80.0 - 100.0 fL [facility] Monocytes (Bld) [#/Vol] 0.58 10*3/uL <0.87 k/uL [facility] Monocytes/100 WBC (Bld) 11.6 % [facility] Neutrophils (Bld) [#/Vol] 2.75 10*3/uL 1.45 - 7.50 k/uL [facility] Neutrophils/100 WBC (Bld) 55.3 % [facility] Nucleated RBC (Bld) [#/Vol] <0.01 k/uL [facility] Nucleated RBC/100 WBC (Bld) [Ratio] 0.0 /100 WBC [facility] Platelet mean volume (Bld) [Entitic vol] 9.6 fL 9.0 - 12.7 fL [facility] Platelets (Bld) [#/Vol] 159 10*3/uL 150 - 400 k/uL [facility] RBC (Bld) [#/Vol] 3.17 10*6/uL Low 3.90 - 5.2 0 m/uL [facility] WBC (Bld) [#/Vol] 4.98 10*3/uL 3.70 - 11.00 k/uL [facility] CORTISOL BLDon 02-18-2023 Cortisol [Mass/Vol] 14.6 ug/dL 4.8 - 19 .5 ug/dL [facility] Comprehensive metabolic 2000 panelon 02-18-2023 Albumin [Mass/Vol] 3.8 g/dL Low 3.9 - 4.9 g/dL [facility] ALP [Catalytic activity/Vol] 70 U/L 34 - 123 U/L [facility] ALT [Catalytic activity/Vol] 14 U/L 7 - 38 U/L [facility] Anion gap [Moles/Vol] 9 mmol/L 9 - 18 mmol/L [facility] AST [Catalytic activity/Vol] 12 U/L Low 13 - 35 U/L [facility] Bilirubin [Mass/Vol] 0.3 mg/dL 0.2 - 1 .3 mg/dL [facility] Calcium [Mass/Vol] 9.5 mg/dL 8.5 - 10. 2 mg/dL [facility] Chloride [Moles/Vol] 102 mmol/L 97 - 10 5 mmol/L [facility] CO2 [Moles/Vol] 28 mmol/L 22 - 30 mmol/L [facility] Creatinine [Mass/Vol] 1.16 mg/dL High 0.58 - 0.96 mg/dL [facility] Estimated Glomerular Filtration Rate 49 mL/min/1.73m Low >=60 mL/min/1.73 m [facility] Glucose [Mass/Vol] 200 mg/dL High 74 - 99 mg/dL [facility] Potassium [Moles/Vol] 4.4 mmol/L 3.7 - 5.1 mmol/L [facility] Protein [Mass/Vol] 6.4 g/dL 6.3 - 8.0 g/dL [facility] Sodium [Moles/Vol] 139 mmol/L 136 - 144 mmol/L [facility] Urea nitrogen [Mass/Vol] 35 mg/dL High 7 - 21 mg/dL [facility] Laboratory - Chemistry and C hemistry - challengeon 02-18-2023 Natriuretic peptide.B prohormone N-Terminal [Mass/Vol] 507 pg/mL High <450 pg/mL [facility] Troponin T.cardiac High sensitivity method [Mass/Vol] 28 ng/L High <12 ng/L [facility] MAGNESIUM [facility] 02-18-2023 Magnesium [Mass/Vol] 1.3 mg/dL Low 1.7 - 2 .3 mg/dL [facility] T4 FREE/FREE THYROXon 2022 Free T4 [Mass/Vol] 1.2 ng/dL 0.9 - 1.7 ng/dL [facility] TSH [facility] 02-18-2023 TSH Qn 2.030 m[IU]/L 0.270 - 4.200 mIU/L [facility] CBC W Auto Differential pane l (Bld)on 02-02-2023 Basophils (Bld) [#/Vol] <0.11 k/uL [facility] Basophils/100 WBC (Bld) 0.4 % [facility] Differential cell count method Nom (Bld) Auto [facility] Eosinophils (Bld) [#/Vol] 0.08 10*3/uL <0.46 k/uL [facility] Eosinophils/100 WBC (Bld) 1.8 % [facility] Erythrocyte distribution width (RBC) [Ratio] 14.0 % 11.5 - 15.0 % [facility] Hematocrit (Bld) [Volume fraction] 27.9 % Low 36.0 - 46.0 % [facility] Hemoglobin (Bld) [Mass/Vol] 9.4 g/dL Low 11.5 - 15.5 g/dL [facility] Immature granulocytes (Bld) [#/Vol] <0.10 k/uL [facility] Immature granulocytes/100 WBC (Bld) 0.4 % [facility] Lymphocytes (Bld) [#/Vol] 0.91 10*3/uL Low 1.00 - 4.00 k/uL [facility] Lymphocytes/100 WBC (Bld) 20.1 % [facility] MCH (RBC) [Entitic mass] 32.6 pg 26.0 - 34.0 pg [facility] MCHC (RBC) [Mass/Vol] 33.7 g/dL 30.5 - 36.0 g/dL [facility] MCV (RBC) [Entitic vol] 96.9 fL 80.0 - 100.0 fL [facility] Monocytes (Bld) [#/Vol] 0.48 10*3/uL <0.87 k/uL [facility] Monocytes/100 WBC (Bld) 10.6 % [facility] Neutrophils (Bld) [#/Vol] 3.01 10*3/uL 1.45 - 7.50 k/uL [facility] Neutrophils/100 WBC (Bld) 66.7 % [facility] Nucleated RBC (Bld) [#/Vol] <0.01 k/uL [facility] Nucleated RBC/100 WBC (Bld) [Ratio] 0.0 /100 WBC [facility] Platelet mean volume (Bld) [Entitic vol] 9.3 fL 9.0 - 12.7 fL [facility] Platelets (Bld) [#/Vol] 115 10*3/uL Low 150 - 400 k/uL [facility] RBC (Bld) [#/Vol] 2.88 10*6/uL Low 3.90 - 5.2 0 m/uL [facility] WBC (Bld) [#/Vol] 4.52 10*3/uL 3.70 - 11.00 k/uL [facility] Comprehensive metabolic 2000 panelon 02-02-2023 Albumin [Mass/Vol] 3.7 g/dL Low 3.9 - 4.9 g/dL [facility] ALP [Catalytic activity/Vol] 66 U/L 34 - 123 U/L [facility] ALT [Catalytic activity/Vol] 22 U/L 7 - 38 U/L [facility] Anion gap [Moles/Vol] 9 mmol/L 9 - 18 mmol/L [facility] AST [Catalytic activity/Vol] 12 U/L Low 13 - 35 U/L [facility] Bilirubin [Mass/Vol] 0.3 mg/dL 0.2 - 1 .3 mg/dL [facility] Calcium [Mass/Vol] 9.1 mg/dL 8.5 - 10. 2 mg/dL [facility] Chloride [Moles/Vol] 100 mmol/L 97 - 10 5 mmol/L [facility] CO2 [Moles/Vol] 27 mmol/L 22 - 30 mmol/L [facility] Creatinine [Mass/Vol] 0.94 mg/dL 0.58 - 0.96 mg/dL [facility] Estimated Glomerular Filtration Rate 63 mL/min/1.73m >=60 mL/min/1.73 m [facility] Glucose [Mass/Vol] 209 mg/dL High 74 - 99 mg/dL [facility] Potassium [Moles/Vol] 4.4 mmol/L 3.7 - 5.1 mmol/L [facility] Protein [Mass/Vol] 6.2 g/dL Low 6.3 - 8.0 g/dL [facility] Sodium [Moles/Vol] 136 mmol/L 136 - 144 mmol/L [facility] Urea nitrogen [Mass/Vol] 19 mg/dL 7 - 21 mg/dL [facility] MAGNESIUM BLDon 02-02-2023 Magnesium [Mass/Vol] 1.4 mg/dL Low 1.7 - 2 .3 mg/dL [facility] Basophil percentageOrdered B y: Georgia Romero on 01-26-2023 Chloride [Moles/Vol] 108 mmol/L 98-107 [facility] Glucose [Mass/Vol] 111 mg/dL 74-106 [facility] Comment on above: Fasting Glucose resu lt from 100 to 125 mg/dL suggests IMPAIRED HOMEOSTASIS per A.D.A. criteria. Potassium [Moles/Vol] 4.3 mmol/L 3.5-5.1 [facility] Sodium [Moles/Vol] 137 mmol/L 136-145 [facility] Glucose Glucometer (BldC) [M ass/Vol]Ordered By: Georgia Romero on 01-26-2023 Glucose [Mass/Vol] 174 mg/dL 74-106 [facility] Comment on above: MANAGEMENT OF PATIEN T CARE PER NURSING PROTOCOL Laboratory - Chemistry and C hemistry - challengeOrdered By: Georgia Romero on 01-26-2023 CO2 [Moles/Vol] 25.0 mmol/L 21.0-32.0 [facility] Free T4 [Mass/Vol] 0.99 ng/dL 0.76-1.46 [facility] Urea nitrogen/Creatinine [Mass ratio] 18.6 mg/mg 10-20 [facility] No Panel InformationOrdered By: Georgia Romero on 01-26-2023 Estimated Creatinine Clearance Calc 40.28 ml/min [facility] Estimated GFR (MDRD) Amer 57 mL/min >60 [facility] Comment on above: GFR Calc Estimated GFR (MDRD) Non-Af Amer 47 mL/min >60 [facility] Comment on above: Non- GFR Calc Serum or plasma calcium ryanne urement (mass/volume)Ordered By: Georgia Romero on 01-26-2023 Calcium [Mass/Vol] 8.5 mg/dL 8.5-10.1 [facility] Serum or plasma creatinine m easurement (mass/volume)Ordered By: Georgia Romero on 01-26-2023 Creatinine [Mass/Vol] 1.18 mg/dL 0.55-1.02 [facility] Comment on above: The validity of the calculated GFR & GFRAA in patients over 70 years has not been determined. Clinical correlation is essential. Serum or plasma urea nitroge n measurement (mass/volume)Ordered By: Georgia Romero on 01-26-2023 Urea nitrogen [Mass/Vol] 22 mg/dL 7-18 [facility] Thin prep Papanicolaou smear with manual screeningOrdered By: Georgia Romero on 01-26-2023 Thin prep Papanicolaou smear with manual screening 4 5-15 [facility] Absolute lymphocyte countOrd ered By: Abraham Edgar on 01-25-2023 Lymphocytes Auto (Unsp spec) [#/Vol] 0.73 10*3/uL 0.83-4.51 [facility] Basophil percentageOrdered B y: Abraham Edgar on 01-25-2023 Basophil percentage 2.4 mg/dL 2.5-4.9 [facility] Basophils/100 WBC (Bld) 0.4 % 0-1 [facility] Bilirubin [Mass/Vol] 0.30 mg/dL 0.20-1.00 [facility] Comment on above: For patients on eltr ombopag therapy, use of Dimension [place] TBIL is not recommended. Eosinophils/100 WBC (Bld) 1.5 % 0-5 [facility] Neutrophils (Bld) [#/Vol] 3.1 10*3/uL 2.0-7.7 [facility] Neutrophils/100 WBC (Bld) 68.3 % 47-70 [facility] Protein [Mass/Vol] 5.8 g/dL 6.4-8.2 [facility] WBC (Bld) [#/Vol] 4.6 10*3/uL 4.4-11.0 [facility] Blood erythrocytes count (nu mber/volume)Ordered By: Abraham Edgar on 01-25-2023 RBC (Bld) [#/Vol] 2.65 10*6/uL 4.2-5.4 [facility] Blood hemoglobin measurement (mass/volume)Ordered By: Abraham Edgar on 01-25-2023 Hemoglobin (Bld) [Mass/Vol] 8.4 g/dL 12.0-15.0 [facility] Blood lymphocytes/100 leukoc ytesOrdered By: Abraham Edgar on 01-25-2023 Lymphocytes/100 WBC (Bld) 16.0 % 19-41 [facility] Blood monocytes/100 leukocyt esOrdered By: Abraham Edgar on 01-25-2023 Monocytes/100 WBC (Bld) 13.6 % 0-10 [facility] Blood platelet mean volumeOr dered By: Abraham Edgar on 01-25-2023 Platelet mean volume (Bld) [Entitic vol] 10.5 fL 6.2-12.0 [facility] Determination of erythrocyte mean corpuscular volume (MCV)Ordered By: Abraham Edgar on 01-25-2023 MCV (RBC) [Entitic vol] 100.0 fL 81-99 [facility] Direct bilirubinOrdered By: Abraham Edgar on 01-25-2023 Bilirubin.direct [Mass/Vol] 0.10 mg/dL 0.00-0.30 [facility] Hematocrit Auto (Bld) [Volum e fraction]Ordered By: Abraham Edgar on 01-25-2023 Hematocrit (Bld) [Volume fraction] 26.5 % 37-47 [facility] INR in Blood by Coagulation assayOrdered By: Abraham Edgar on 01-25-2023 INR Coag (Bld) [Relative time] 1.2 {INR} [facility] Laboratory - Chemistry and C hemistry - challengeOrdered By: Abraham Edgar on 01-25-2023 ALP [Catalytic activity/Vol] 53 U/L 45-117 [facility] ALT [Catalytic activity/Vol] 32 U/L 13-56 [facility] Globulin (S) [Mass/Vol] 3.0 g/dL 2.2-4.2 [facility] Magnesium [Mass/Vol] 1.5 mg/dL 1.6-2.6 [facility] Laboratory - CoagulationOrde red By: Abraham Edgar on 01-25-2023 PT Coag (PPP) [Time] 14.8 s 11.7-14.9 [facility] Laboratory - Hematology and Cell countsOrdered By: Abraham Edgar on 01-25-2023 Erythrocyte distribution width (RBC) [Entitic vol] 49.6 fL 35.1-43.9 [facility] Erythrocyte distribution width (RBC) [Ratio] 13.4 % 11.6-14.6 [facility] Immature granulocytes/100 WBC (Bld) 0.200 % 0.0-0.9 [facility] Comment on above: IG% - Immature Granu locytes (promyelocytes, myelocytes and metamyelocytes) > 1% indicates that a LEFT SHIFT is Present. MCH (RBC) [Entitic mass] 31.7 pg 27.0-32.0 [facility] Nucleated RBC/100 WBC (Bld) [Ratio] 0 % 0-5 [facility] [facility] - Microbiology an d Antimicrobial susceptibilityOrdered By: Georgia Romero on 01-25-2023 Bacteria identified Cx Nom (Bld) No growth in 5 days. [facility] MCHC Auto (RBC) [Mass/Vol]Or dered By: Abraham Edgar on 01-25-2023 MCHC (RBC) [Mass/Vol] 31.7 g/dL 32-36 [facility] No Panel InformationOrdered By: Abraham Edgar on 01-25-2023 Thyroid Stimulating Hormone (TSH) 0.29 uIU/mL 0.358-3.74 [facility] Platelets bldOrdered By: Adin Edgar on 01-25-2023 Platelets (Bld) [#/Vol] 95 10*3/uL 150-450 [facility] Serum or plasma albumin ryanne urement (mass/volume)Ordered By: Abraham Edgar on 01-25-2023 Albumin [Mass/Vol] 2.8 g/dL 3.2-5.0 [facility] Serum or plasma albumin/glob ulin mass ratioOrdered By: Abraham Edgar on 01-25-2023 Albumin/Globulin [Mass ratio] 0.9 {ratio} 0.9-2.4 [facility] Thin prep Papanicolaou smear with manual screeningOrdered By: Abraham Edgar on 01-25-2023 Thin prep Papanicolaou smear with manual screening 18 U/L 15-37 [facility] Absolute lymphocyte countOrd ered By: Rodo Louis on 01-24-2023 Lymphocytes Auto (Unsp spec) [#/Vol] 0.47 10*3/uL 0.83-4.51 [facility] Basophil percentageOrdered B y: Rodo Louis on 01-24-2023 Lactate [Moles/Vol] 1.7 mmol/L 0.4-2.0 [facility] Basophil percentage 25-50 SEEN /hpf 0-5 [facility] Basophils/100 WBC (Bld) 0.2 % 0-1 [facility] Chloride [Moles/Vol] 103 mmol/L 98-107 [facility] Eosinophils/100 WBC (Bld) 1.0 % 0-5 [facility] Glucose [Mass/Vol] 295 mg/dL 74-106 [facility] Comment on above: Glucose result great er than or equal to 200 mg/dLsuggests DIABETES MELLITUS per A.D.A. criteria. Lactate [Moles/Vol] 3.0 mmol/L 0.4-2.0 [facility] Comment on above: Critical Result(s) C alled at: 15:35:49 01/24/2023 by: LEYDI CRUZ [employer] Results read back by same. Neutrophils (Bld) [#/Vol] 3.2 10*3/uL 2.0-7.7 [facility] Neutrophils/100 WBC (Bld) 79.7 % 47-70 [facility] Potassium [Moles/Vol] 5.1 mmol/L 3.5-5.1 [facility] Sodium [Moles/Vol] 136 mmol/L 136-145 [facility] WBC (Bld) [#/Vol] 4.0 10*3/uL 4.4-11.0 [facility] Bilirubin Test strip Ql (U)O rdered By: Rodo Louis on 01-24-2023 Bilirubin Ql (U) Negative Negative [facility] Blood erythrocytes count (nu mber/volume)Ordered By: Rodo Louis on 01-24-2023 RBC (Bld) [#/Vol] 2.99 10*6/uL 4.2-5.4 [facility] Blood hemoglobin measurement (mass/volume)Ordered By: Rodo Louis on 01-24-2023 Hemoglobin (Bld) [Mass/Vol] 9.3 g/dL 12.0-15.0 [facility] Blood lymphocytes/100 leukoc ytesOrdered By: Rodo Louis on 11-26-2023 Lymphocytes/100 WBC (Bld) 11.7 % 19-41 [facility] Blood manual differential co mment interpretation (narrative result)Ordered By: Rodo Louis on 01-24-2023 Manual differential comment [place] (Bld) [Interp] SCANNED [facility] Blood monocytes/100 leukocyt esOrdered By: Rodo Louis on 01-24-2023 Monocytes/100 WBC (Bld) 7.2 % 0-10 [facility] Blood platelet mean volumeOr dered By: Rodo Louis on 01-24-2023 Platelet mean volume (Bld) [Entitic vol] 9.8 fL 6.2-12.0 [facility] Culture, urineOrdered By: Iris Louis on 01-24-2023 Bacteria identified Cx Nom (U) Klebsiella oxytoca [facility] Determination of erythrocyte mean corpuscular volume (MCV)Ordered By: Rodo Louis on 01-24-2023 MCV (RBC) [Entitic vol] 100.3 fL 81-99 [facility] Hematocrit Auto (Bld) [Volum e fraction]Ordered By: Rodo Louis on 01-24-2023 Hematocrit (Bld) [Volume fraction] 30.0 % 37-47 [facility] Ketones Test strip Ql (U)Ord ered By: Rodo Louis on 01-24-2023 Ketones Ql (U) Negative Negative [facility] - Chemistry and C hemistry - challengeOrdered By: Rodo Louis on 01-24-2023 CO2 [Moles/Vol] 28.0 mmol/L 21.0-32.0 [facility] Magnesium [Mass/Vol] 1.4 mg/dL 1.6-2.6 [facility] Urea nitrogen/Creatinine [Mass ratio] 16.6 mg/mg 10-20 [facility] - Hematology and Cell countsOrdered By: Rodo Louis on 01-24-2023 Erythrocyte distribution width (RBC) [Entitic vol] 48.8 fL 35.1-43.9 [facility] Erythrocyte distribution width (RBC) [Ratio] 13.2 % 11.6-14.6 [facility] Immature granulocytes/100 WBC (Bld) 0.200 % 0.0-0.9 [facility] Comment on above: IG% - Immature Granu locytes (promyelocytes, myelocytes and metamyelocytes) > 1% indicates that a LEFT SHIFT is Present. MCH (RBC) [Entitic mass] 31.1 pg 27.0-32.0 [facility] Nucleated RBC/100 WBC (Bld) [Ratio] 0 % 0-5 [facility] MCHC Auto (RBC) [Mass/Vol]Or dered By: Rodo Louis on 01-24-2023 MCHC (RBC) [Mass/Vol] 31.0 g/dL 32-36 [facility] Mucus LM Ql (Urine sed)Order ed By: Rodo Louis on 01-24-2023 Mucus Ql (Urine sed) 0 SEEN /hpf [facility] Nitrite Test strip Ql (U)Ord ered By: Rodo Louis on 01-24-2023 Nitrite Ql (U) Negative Negative [facility] No Panel InformationOrdered By: Rodo Louis on 01-24-2023 Estimated Creatinine Clearance Calc 30.15 ml/min [facility] Estimated GFR (MDRD) Amer 38 mL/min >60 [facility] Comment on above: GFR Calc Estimated GFR (MDRD) Non-Af Amer 31 mL/min >60 [facility] Comment on above: Non- GFR Calc Troponin I High Sensitivity 9 pg/mL 3.0-54.0 [facility] Comment on above: Please Note: New Tobi t Units and Gender Specific Reference Ranges. For more information see Policy Stat Procedure [place] High Sensitivity Troponin (TNIH) and attachments. Platelets bldOrdered By: Hui Louis on 01-24-2023 Platelets (Bld) [#/Vol] 102 10*3/uL 150-450 [facility] Protein Test strip Ql (U)Ord ered By: Rodo Louis on 01-24-2023 Protein Ql (U) 30 mg/dl Negative [facility] Review by pathologistOrdered By: Rodo Louis on 01-24-2023 Pathologist review [place] (Unsp spec) [Interp] Lindsey rose [facility] Pathologist review [place] (Unsp spec) [Interp] Reviewed [facility] Comment on above: Previous reported re sult: Lindsey rose Edited by: RGOOD on 01/25/23:1326Pancytopenia.Macrocytic anemia.LeukopeniaMild Thrombocytopenia.Clinical correlation necessary.Rik Diaz D.O. 01/25/23 AMENDED REPORT 01/25/23 1326 PATH REV previously reported as: Lindsey rose Serum or plasma calcium ryanne urement (mass/volume)Ordered By: Rodo Louis on 01-24-2023 Calcium [Mass/Vol] 8.3 mg/dL 8.5-10.1 [facility] Serum or plasma creatinine m easurement (mass/volume)Ordered By: Rodo Louis on 01-24-2023 Creatinine [Mass/Vol] 1.69 mg/dL 0.55-1.02 [facility] Comment on above: The validity of the calculated GFR & GFRAA in patients over 70 years has not been determined. Clinical correlation is essential. Serum or plasma urea nitroge n measurement (mass/volume)Ordered By: Rodo Louis on 01-24-2023 Urea nitrogen [Mass/Vol] 28 mg/dL 7-18 [facility] Squamous epithelial cells de tection in urine sediment by light microscopyOrdered By: Rodo Louis on 01-24-2023 Epithelial cells.squamous LM Ql (Urine sed) 0-5 SEEN /hpf 5-10 [facility] Thin prep Papanicolaou smear with manual screeningOrdered By: Rodo Louis on 01-24-2023 Thin prep Papanicolaou smear with manual screening 5 5-15 [facility] Urine blood detectionOrdered By: Rodo Louis on 01-24-2023 RBC Ql (U) 10 /ul Negative [facility] RBC Ql (U) 0-5 SEEN /hpf 0-5 [facility] Urine clarityOrdered By: Hui Louis on 01-24-2023 Clarity (U) Sl. Cloudy Clear [facility] Urine color determinationOrd ered By: Rodo Louis on 01-24-2023 Color (U) Yellow Yellow [facility] Urine glucose detectionOrder ed By: Rodo Louis on 01-24-2023 Glucose Ql (U) 1000 mg/dl Normal [facility] Urine leukocyte esterase det ection by dipstickOrdered By: Rodo Louis on 01-24-2023 Leukocyte esterase Test strip Ql (U) 100 /ul Negative [facility] Urine pHOrdered By: Rodo orozco on 01-24-2023 pH (U) 6.0 [pH] 5.0 - 8.0 [facility] Urine sediment bacteria coun t by microscopy (number/high power field)Ordered By: Rodo Louis on 01-24-2023 Bacteria LM.HPF (Urine sed) [#/Area] 2 /[HPF] None Seen [facility] Urine specific gravity measu rementOrdered By: Rodo Louis on 01-24-2023 Specific gravity (U) [Rel density] 1.015 1.002-1.030 [facility] Urobilinogen Auto test strip Ql (U)Ordered By: Rodo Louis on 01-24-2023 Urobilinogen Ql (U) Normal mg/dl Normal [facility] CBC W Auto Differential pane l (Bld)on 01-12-2023 Basophils (Bld) [#/Vol] 0.03 10*3/uL <0.11 k/uL [facility] Basophils/100 WBC (Bld) 0.4 % [facility] Differential cell count method Nom (Bld) Auto [facility] Eosinophils (Bld) [#/Vol] 0.44 10*3/uL <0.46 k/uL [facility] Eosinophils/100 WBC (Bld) 5.8 % [facility] Erythrocyte distribution width (RBC) [Ratio] 14.3 % 11.5 - 15.0 % [facility] Hematocrit (Bld) [Volume fraction] 31.4 % Low 36.0 - 46.0 % [facility] Hemoglobin (Bld) [Mass/Vol] 10.3 g/dL Low 11.5 - 15.5 g/dL [facility] Immature granulocytes (Bld) [#/Vol] <0.10 k/uL [facility] Immature granulocytes/100 WBC (Bld) 0.1 % [facility] Lymphocytes (Bld) [#/Vol] 1.36 10*3/uL 1.00 - 4.00 k/uL [facility] Lymphocytes/100 WBC (Bld) 18.0 % [facility] MCH (RBC) [Entitic mass] 32.9 pg 26.0 - 34.0 pg [facility] MCHC (RBC) [Mass/Vol] 32.8 g/dL 30.5 - 36.0 g/dL [facility] MCV (RBC) [Entitic vol] 100.3 fL High 80.0 - 100.0 fL [facility] Monocytes (Bld) [#/Vol] 0.64 10*3/uL <0.87 k/uL [facility] Monocytes/100 WBC (Bld) 8.5 % [facility] Neutrophils (Bld) [#/Vol] 5.06 10*3/uL 1.45 - 7.50 k/uL [facility] Neutrophils/100 WBC (Bld) 67.2 % [facility] Nucleated RBC (Bld) [#/Vol] <0.01 k/uL [facility] Nucleated RBC/100 WBC (Bld) [Ratio] 0.0 /100 WBC [facility] Platelet mean volume (Bld) [Entitic vol] 9.4 fL 9.0 - 12.7 fL [facility] Platelets (Bld) [#/Vol] 163 10*3/uL 150 - 400 k/uL [facility] RBC (Bld) [#/Vol] 3.13 10*6/uL Low 3.90 - 5.2 0 m/uL [facility] WBC (Bld) [#/Vol] 7.54 10*3/uL 3.70 - 11.00 k/uL [facility] Comprehensive metabolic 2000 panelon 01-12-2023 Albumin [Mass/Vol] 3.9 g/dL 3.9 - 4.9 g/dL [facility] ALP [Catalytic activity/Vol] 62 U/L 34 - 123 U/L [facility] ALT [Catalytic activity/Vol] 21 U/L 7 - 38 U/L [facility] Anion gap [Moles/Vol] 10 mmol/L 9 - 18 mmol/L [facility] AST [Catalytic activity/Vol] 18 U/L 13 - 35 U/L [facility] Bilirubin [Mass/Vol] 0.3 mg/dL 0.2 - 1 .3 mg/dL [facility] Calcium [Mass/Vol] 9.0 mg/dL 8.5 - 10. 2 mg/dL [facility] Chloride [Moles/Vol] 102 mmol/L 97 - 10 5 mmol/L [facility] CO2 [Moles/Vol] 26 mmol/L 22 - 30 mmol/L [facility] Creatinine [Mass/Vol] 1.07 mg/dL High 0.58 - 0.96 mg/dL [facility] Estimated Glomerular Filtration Rate 54 mL/min/1.73m Low >=60 mL/min/1.73 m [facility] Glucose [Mass/Vol] 226 mg/dL High 74 - 99 mg/dL [facility] Potassium [Moles/Vol] 4.4 mmol/L 3.7 - 5.1 mmol/L [facility] Protein [Mass/Vol] 6.3 g/dL 6.3 - 8.0 g/dL [facility] Sodium [Moles/Vol] 138 mmol/L 136 - 144 mmol/L [facility] Urea nitrogen [Mass/Vol] 24 mg/dL High 7 - 21 mg/dL [facility] MAGNESIUM BLDon 01-12-2023 Magnesium [Mass/Vol] 1.4 mg/dL Low 1.7 - 2 .3 mg/dL [facility] CBC W Auto Differential pane l (Bld)on 12-30-2022 Basophils (Bld) [#/Vol] 0.04 10*3/uL <0.11 k/uL [facility] Basophils/100 WBC (Bld) 0.6 % [facility] Differential cell count method Nom (Bld) Auto [facility] Eosinophils (Bld) [#/Vol] 0.90 10*3/uL High <0.46 k/uL [facility] Eosinophils/100 WBC (Bld) 13.4 % [facility] Erythrocyte distribution width (RBC) [Ratio] 16.3 % High 11.5 - 15.0 % [facility] Hematocrit (Bld) [Volume fraction] 30.0 % Low 36.0 - 46.0 % [facility] Hemoglobin (Bld) [Mass/Vol] 9.8 g/dL Low 11.5 - 15.5 g/dL [facility] Immature granulocytes (Bld) [#/Vol] <0.10 k/uL [facility] Immature granulocytes/100 WBC (Bld) 0.3 % [facility] Lymphocytes (Bld) [#/Vol] 1.60 10*3/uL 1.00 - 4.00 k/uL [facility] Lymphocytes/100 WBC (Bld) 23.8 % [facility] MCH (RBC) [Entitic mass] 32.1 pg 26.0 - 34.0 pg [facility] MCHC (RBC) [Mass/Vol] 32.7 g/dL 30.5 - 36.0 g/dL [facility] MCV (RBC) [Entitic vol] 98.4 fL 80.0 - 100.0 fL [facility] Monocytes (Bld) [#/Vol] 0.58 10*3/uL <0.87 k/uL [facility] Monocytes/100 WBC (Bld) 8.6 % [facility] Neutrophils (Bld) [#/Vol] 3.57 10*3/uL 1.45 - 7.50 k/uL [facility] Neutrophils/100 WBC (Bld) 53.3 % [facility] Nucleated RBC (Bld) [#/Vol] <0.01 k/uL [facility] Nucleated RBC/100 WBC (Bld) [Ratio] 0.0 /100 WBC [facility] Platelet mean volume (Bld) [Entitic vol] 9.7 fL 9.0 - 12.7 fL [facility] Platelets (Bld) [#/Vol] 163 10*3/uL 150 - 400 k/uL [facility] RBC (Bld) [#/Vol] 3.05 10*6/uL Low 3.90 - 5.2 0 m/uL [facility] WBC (Bld) [#/Vol] 6.71 10*3/uL 3.70 - 11.00 k/uL [facility] CK CREATINE KINASEon 023 CK [Catalytic activity/Vol] 35 U/L Low 42 - 196 U/L [facility] Comprehensive metabolic 2000 panelon 12-30-2022 Albumin [Mass/Vol] 3.9 g/dL 3.9 - 4.9 g/dL [facility] ALP [Catalytic activity/Vol] 78 U/L 34 - 123 U/L [facility] ALT [Catalytic activity/Vol] 29 U/L 7 - 38 U/L [facility] Anion gap [Moles/Vol] 9 mmol/L 9 - 18 mmol/L [facility] AST [Catalytic activity/Vol] 22 U/L 13 - 35 U/L [facility] Bilirubin [Mass/Vol] 0.2 mg/dL 0.2 - 1 .3 mg/dL [facility] Calcium [Mass/Vol] 9.0 mg/dL 8.5 - 10. 2 mg/dL [facility] Chloride [Moles/Vol] 104 mmol/L 97 - 10 5 mmol/L [facility] CO2 [Moles/Vol] 25 mmol/L 22 - 30 mmol/L [facility] Creatinine [Mass/Vol] 1.04 mg/dL High 0.58 - 0.96 mg/dL [facility] Estimated Glomerular Filtration Rate 55 mL/min/1.73m Low >=60 mL/min/1.73 m [facility] Glucose [Mass/Vol] 149 mg/dL High 74 - 99 mg/dL [facility] Potassium [Moles/Vol] 4.8 mmol/L 3.7 - 5.1 mmol/L [facility] Protein [Mass/Vol] 6.3 g/dL 6.3 - 8.0 g/dL [facility] Sodium [Moles/Vol] 138 mmol/L 136 - 144 mmol/L [facility] Urea nitrogen [Mass/Vol] 26 mg/dL High 7 - 21 mg/dL [facility] HIGH SENSITIVITY TROPONIN To n 12-30-2022 Troponin T.cardiac High sensitivity method [Mass/Vol] 30 ng/L High <12 ng/L [facility] NT PRO BNPon 12-30-2022 Natriuretic peptide.B prohormone N-Terminal [Mass/Vol] 579 pg/mL High <450 pg/mL [facility] NM CARDIAC PERF STRESS/PHARM on 12-28-2022 [facility] No Panel Informationon 12-24 [facility] Comprehensive metabolic 2000 panelon 12-23-2022 Albumin [Mass/Vol] 3.8 g/dL Low 3.9 - 4.9 g/dL [facility] ALP [Catalytic activity/Vol] 78 U/L 34 - 123 U/L [facility] ALT [Catalytic activity/Vol] 25 U/L 7 - 38 U/L [facility] Anion gap [Moles/Vol] 8 mmol/L Low 9 - 18 mmol/L [facility] AST [Catalytic activity/Vol] 21 U/L 13 - 35 U/L [facility] Bilirubin [Mass/Vol] 0.3 mg/dL 0.2 - 1 .3 mg/dL [facility] Calcium [Mass/Vol] 8.8 mg/dL 8.5 - 10. 2 mg/dL [facility] Chloride [Moles/Vol] 102 mmol/L 97 - 10 5 mmol/L [facility] CO2 [Moles/Vol] 27 mmol/L 22 - 30 mmol/L [facility] Creatinine [Mass/Vol] 1.11 mg/dL High 0.58 - 0.96 mg/dL [facility] Estimated Glomerular Filtration Rate 51 mL/min/1.73m Low >=60 mL/min/1.73 m [facility] Glucose [Mass/Vol] 199 mg/dL High 74 - 99 mg/dL [facility] Potassium [Moles/Vol] 4.6 mmol/L 3.7 - 5.1 mmol/L [facility] Protein [Mass/Vol] 6.1 g/dL Low 6.3 - 8.0 g/dL [facility] Sodium [Moles/Vol] 137 mmol/L 136 - 144 mmol/L [facility] Urea nitrogen [Mass/Vol] 23 mg/dL High 7 - 21 mg/dL [facility] MAGNESIUM BLDon 12-23-2022 Magnesium [Mass/Vol] 1.8 mg/dL 1.7 - 2 .3 mg/dL [facility] CBC W Auto Differential pane l (Bld)on 12-22-2022 Basophils (Bld) [#/Vol] 0.04 10*3/uL <0.11 k/uL [facility] Basophils/100 WBC (Bld) 0.4 % [facility] Differential cell count method Nom (Bld) Auto [facility] Eosinophils (Bld) [#/Vol] 0.89 10*3/uL High <0.46 k/uL [facility] Eosinophils/100 WBC (Bld) 9.6 % [facility] Erythrocyte distribution width (RBC) [Ratio] 17.8 % High 11.5 - 15.0 % [facility] Hematocrit (Bld) [Volume fraction] 31.8 % Low 36.0 - 46.0 % [facility] Hemoglobin (Bld) [Mass/Vol] 10.4 g/dL Low 11.5 - 15.5 g/dL [facility] Immature granulocytes (Bld) [#/Vol] 0.05 10*3/uL <0.10 k/uL [facility] Immature granulocytes/100 WBC (Bld) 0.5 % [facility] Lymphocytes (Bld) [#/Vol] 1.58 10*3/uL 1.00 - 4.00 k/uL [facility] Lymphocytes/100 WBC (Bld) 17.1 % [facility] MCH (RBC) [Entitic mass] 32.3 pg 26.0 - 34.0 pg [facility] MCHC (RBC) [Mass/Vol] 32.7 g/dL 30.5 - 36.0 g/dL [facility] MCV (RBC) [Entitic vol] 98.8 fL 80.0 - 100.0 fL [facility] Monocytes (Bld) [#/Vol] 0.74 10*3/uL <0.87 k/uL [facility] Monocytes/100 WBC (Bld) 8.0 % [facility] Neutrophils (Bld) [#/Vol] 5.95 10*3/uL 1.45 - 7.50 k/uL [facility] Neutrophils/100 WBC (Bld) 64.4 % [facility] Nucleated RBC (Bld) [#/Vol] <0.01 k/uL [facility] Nucleated RBC/100 WBC (Bld) [Ratio] 0.0 /100 WBC [facility] Platelet mean volume (Bld) [Entitic vol] 10.2 fL 9.0 - 12.7 fL [facility] Platelets (Bld) [#/Vol] 139 10*3/uL Low 150 - 400 k/uL [facility] RBC (Bld) [#/Vol] 3.22 10*6/uL Low 3.90 - 5.2 0 m/uL [facility] WBC (Bld) [#/Vol] 9.25 10*3/uL 3.70 - 11.00 k/uL [facility] Comprehensive metabolic 2000 panelon 12-22-2022 Albumin [Mass/Vol] 3.8 g/dL Low 3.9 - 4.9 g/dL [facility] ALP [Catalytic activity/Vol] 80 U/L 34 - 123 U/L [facility] ALT [Catalytic activity/Vol] 23 U/L 7 - 38 U/L [facility] Anion gap [Moles/Vol] 12 mmol/L 9 - 18 mmol/L [facility] AST [Catalytic activity/Vol] 21 U/L 13 - 35 U/L [facility] Bilirubin [Mass/Vol] 0.4 mg/dL 0.2 - 1 .3 mg/dL [facility] Calcium [Mass/Vol] 9.1 mg/dL 8.5 - 10. 2 mg/dL [facility] Chloride [Moles/Vol] 101 mmol/L 97 - 10 5 mmol/L [facility] CO2 [Moles/Vol] 23 mmol/L 22 - 30 mmol/L [facility] Creatinine [Mass/Vol] 1.13 mg/dL High 0.58 - 0.96 mg/dL [facility] Estimated Glomerular Filtration Rate 50 mL/min/1.73m Low >=60 mL/min/1.73 m [facility] Glucose [Mass/Vol] 247 mg/dL High 74 - 99 mg/dL [facility] Potassium [Moles/Vol] 4.7 mmol/L 3.7 - 5.1 mmol/L [facility] Protein [Mass/Vol] 6.3 g/dL 6.3 - 8.0 g/dL [facility] Sodium [Moles/Vol] 136 mmol/L 136 - 144 mmol/L [facility] Urea nitrogen [Mass/Vol] 20 mg/dL 7 - 21 mg/dL [facility] Laboratory - Chemistry and C hemistry - challengeon 12-22-2022 Natriuretic peptide.B prohormone N-Terminal [Mass/Vol] 670 pg/mL High <450 pg/mL [facility] Troponin T.cardiac High sensitivity method [Mass/Vol] 35 ng/L High <12 ng/L [facility] MAGNESIUM BLDon 12-22-2022 Magnesium [Mass/Vol] 1.2 mg/dL Low 1.7 - 2 .3 mg/dL [facility] CBC W Auto Differential pane l (Bld)on 12-17-2022 Basophils (Bld) [#/Vol] <0.11 k[facility]L [facility] Bas[facility]/100 WBC (Bld) 0.2 % [facility] Differential cell count method Nom (Bld) Auto [facility] Eosinophils (Bld) [#/Vol] 0.75 10*3/uL High <0.46 k/uL [facility] Eosinophils/100 WBC (Bld) 13.4 % [facility] Erythrocyte distribution width (RBC) [Ratio] 19.3 % High 11.5 - 15.0 % [facility] Hematocrit (Bld) [Volume fraction] 29.8 % Low 36.0 - 46.0 % [facility] Hemoglobin (Bld) [Mass/Vol] 9.7 g/dL Low 11.5 - 15.5 g/dL [facility] Immature granulocytes (Bld) [#/Vol] <0.10 k/uL [facility] Immature granulocytes/100 WBC (Bld) 0.4 % [facility] Lymphocytes (Bld) [#/Vol] 1.31 10*3/uL 1.00 - 4.00 k/uL [facility] Lymphocytes/100 WBC (Bld) 23.4 % [facility] MCH (RBC) [Entitic mass] 32.2 pg 26.0 - 34.0 pg [facility] MCHC (RBC) [Mass/Vol] 32.6 g/dL 30.5 - 36.0 g/dL [facility] MCV (RBC) [Entitic vol] 99.0 fL 80.0 - 100.0 fL [facility] Monocytes (Bld) [#/Vol] 0.55 10*3/uL <0.87 k/uL [facility] Monocytes/100 WBC (Bld) 9.8 % [facility] Neutrophils (Bld) [#/Vol] 2.96 10*3/uL 1.45 - 7.50 k/uL [facility] Neutrophils/100 WBC (Bld) 52.8 % [facility] Nucleated RBC (Bld) [#/Vol] <0.01 k/uL [facility] Nucleated RBC/100 WBC (Bld) [Ratio] 0.0 /100 WBC [facility] Platelet mean volume (Bld) [Entitic vol] 9.5 fL 9.0 - 12.7 fL [facility] Platelets (Bld) [#/Vol] 208 10*3/uL 150 - 400 k/uL [facility] RBC (Bld) [#/Vol] 3.01 10*6/uL Low 3.90 - 5.2 0 m/uL [facility] WBC (Bld) [#/Vol] 5.60 10*3/uL 3.70 - 11.00 k/uL [facility] Comprehensive metabolic 2000 panelon 12-17-2022 Albumin [Mass/Vol] 3.8 g/dL Low 3.9 - 4.9 g/dL [facility] ALP [Catalytic activity/Vol] 82 U/L 34 - 123 U/L [facility] ALT [Catalytic activity/Vol] 12 U/L 7 - 38 U/L [facility] Anion gap [Moles/Vol] 11 mmol/L 9 - 18 mmol/L [facility] AST [Catalytic activity/Vol] 12 U/L Low 13 - 35 U/L [facility] Bilirubin [Mass/Vol] 0.2 mg/dL 0.2 - 1 .3 mg/dL [facility] Calcium [Mass/Vol] 8.9 mg/dL 8.5 - 10. 2 mg/dL [facility] Chloride [Moles/Vol] 101 mmol/L 97 - 10 5 mmol/L [facility] CO2 [Moles/Vol] 23 mmol/L 22 - 30 mmol/L [facility] Creatinine [Mass/Vol] 1.11 mg/dL High 0.58 - 0.96 mg/dL [facility] Estimated Glomerular Filtration Rate 51 mL/min/1.73m Low >=60 mL/min/1.73 m [facility] Glucose [Mass/Vol] 269 mg/dL High 74 - 99 mg/dL [facility] Potassium [Moles/Vol] 4.4 mmol/L 3.7 - 5.1 mmol/L [facility] Protein [Mass/Vol] 5.8 g/dL Low 6.3 - 8.0 g/dL [facility] Sodium [Moles/Vol] 135 mmol/L Low 136 - 144 mmol/L [facility] Urea nitrogen [Mass/Vol] 27 mg/dL High 7 - 21 mg/dL [facility] MAGNESIUM BLDon 12-17-2022 Magnesium [Mass/Vol] 1.5 mg/dL Low 1.7 - 2 .3 mg/dL [facility] Basic metabolic 2000 panelon 12-15-2022 Anion gap [Moles/Vol] 15 mmol/L 9 - 18 mmol/L [facility] Calcium [Mass/Vol] 9.2 mg/dL 8.5 - 10. 2 mg/dL [facility] Chloride [Moles/Vol] 97 mmol/L 97 - 10 5 mmol/L [facility] CO2 [Moles/Vol] 24 mmol/L 22 - 30 mmol/L [facility] Creatinine [Mass/Vol] 1.40 mg/dL High 0.58 - 0.96 mg/dL [facility] [facility] Estimated Glomerular Filtration Rate 39 mL/min/1.73m Low >=60 mL/min/1.73 m [facility] Glucose [Mass/Vol] 184 mg/dL High 74 - 99 mg/dL [facility] Potassium [Moles/Vol] 4.4 mmol/L 3.7 - 5.1 mmol/L [facility] Sodium [Moles/Vol] 136 mmol/L 136 - 144 mmol/L [facility] Urea nitrogen [Mass/Vol] 25 mg/dL High 7 - 21 mg/dL [facility] Laboratory - Chemistry and C hemistry - challengeon 12-15-2022 Magnesium [Mass/Vol] 1.3 mg/dL Low 1.7 - 2 .3 mg/dL [facility] SURGICAL PATHOLOGYon 023 Addendum GMS stain performed on block B is negative for fungal organisms. All controls were appropriate. [facility] Addendum Given the background of chronic active gastritis a Helicobacter pylori immunostain was performed on block A and is negative for Helicobacter pylori organisms. Laboratory Developed Test (LDT) Disclaimer: Positive and negative controls stain appropriately. Performance characteristics of immunohistochemical, immunofluorescent and chromogenic in-situ hybridization tests have been determined by [facility]'s [facility] Pathology and Laboratory Medicine [place] [facility] in a manner consistent with CLIA requirements. One or more of these tests have not been cleared or approved by the FDA. [facility] is regulated under CLIA as qualified to perform high-complexity testing. These tests are used for clinical purposes. They should not be regarded as investigational or for research. [facility] Case Report Surgical Pathology R eport Case: [id number] Authorizing Provider: Almaz Horta MD Collected: 11/25/2022 08:21 AM Ordering Location: Ambulatory Surgery Received: 11/25/2022 02:06 PM Pathologist: Leigha Cisneros MD Specimens: A) - ANTRUM (STOMACH) BIOPSY, antral for H/H B) - ESOPHAGOGASTRIC JUNCTION BIOPSY, GE Junction bx C) - ESOPHAGUS MID BIOPSY [facility] FINAL DIAGNOSIS A. Stomach, antrum, biopsy: - Chronic active gastritis with reactive epithelial changes. - Helicobacter pylori stain pending, the result will be reported as an addendum. B. Esophagogastric junction, biopsy: - Active esophagitis. -GMS stain pending, the result will be reported as an addendum. C. Esophagus, mid, biopsy: - Hyperplastic squamous epithelium with focal parakeratosis. [facility] Gross Description A. ANTRUM (STOMACH) BIOPSY Received in formalin is one piece of elam, soft tissue measuring 0.2 x 0.2 x 0.2 cm. Totally submitted in one cassette. B. ESOPHAGOGASTRIC JUNCTION BIOPSY Received in formalin are two pieces of elam-white, soft tissue aggregating to 0.6 x 0.2 x 0.2 cm. Totally submitted in one cassette. C. ESOPHAGUS MID BIOPSY Received in formalin are multiple pieces of elam-white, soft tissue aggregating to 0.7 x 0.2 x 0.1 cm. Totally submitted in one cassette. Gross examination performed at [facility], [address] [place] [address] KK November 26, 2022 12:49 AM [facility] Performing Lab Diagnostic interpret ation performed at [facility] [address] [facility] [address] CLIA# [id number] [employer] Standards Coach: Kranthi Ruby M.D. [facility] EGD DIAGNOSTICon 11-25-2022 [facility] CBC W Auto Differential pane l (Bld)on 11-11-2022 Basophils (Bld) [#/Vol] <0.11 k/uL [facility] Basophils/100 WBC (Bld) 0.1 % [facility] Differential cell count method Nom (Bld) Auto [facility] Eosinophils (Bld) [#/Vol] <0.46 k/uL [facility] Eosinophils/100 WBC (Bld) 0.0 % [facility] Erythrocyte distribution width (RBC) [Ratio] 19.1 % High 11.5 - 15.0 % [facility] Hematocrit (Bld) [Volume fraction] 32.0 % Low 36.0 - 46.0 % [facility] Hemoglobin (Bld) [Mass/Vol] 10.7 g/dL Low 11.5 - 15.5 g/dL [facility] Immature granulocytes (Bld) [#/Vol] 0.03 10*3/uL <0.10 k/uL [facility] Immature granulocytes/100 WBC (Bld) 0.4 % [facility] Lymphocytes (Bld) [#/Vol] 0.65 10*3/uL Low 1.00 - 4.00 k/uL [facility] Lymphocytes/100 WBC (Bld) 9.1 % [facility] MCH (RBC) [Entitic mass] 30.3 pg 26.0 - 34.0 pg [facility] MCHC (RBC) [Mass/Vol] 33.4 g/dL 30.5 - 36.0 g/dL [facility] MCV (RBC) [Entitic vol] 90.7 fL 80.0 - 100.0 fL [facility] Monocytes (Bld) [#/Vol] 0.06 10*3/uL <0.87 k/uL [facility] Monocytes/100 WBC (Bld) 0.8 % [facility] Neutrophils (Bld) [#/Vol] 6.39 10*3/uL 1.45 - 7.50 k/uL [facility] Neutrophils/100 WBC (Bld) 89.6 % [facility] Nucleated RBC (Bld) [#/Vol] <0.01 k/uL [facility] Nucleated RBC/100 WBC (Bld) [Ratio] 0.0 /100 WBC [facility] Platelet mean volume (Bld) [Entitic vol] 9.5 fL 9.0 - 12.7 fL [facility] Platelets (Bld) [#/Vol] 182 10*3/uL 150 - 400 k/uL [facility] RBC (Bld) [#/Vol] 3.53 10*6/uL Low 3.90 - 5.2 0 m/uL [facility] WBC (Bld) [#/Vol] 7.14 10*3/uL 3.70 - 11.00 k/uL [facility] Comprehensive metabolic 2000 panelon 11-11-2022 Albumin [Mass/Vol] 4.0 g/dL 3.9 - 4.9 g/dL [facility] ALP [Catalytic activity/Vol] 83 U/L 34 - 123 U/L [facility] ALT [Catalytic activity/Vol] 18 U/L 7 - 38 U/L [facility] Anion gap [Moles/Vol] 14 mmol/L 9 - 18 mmol/L [facility] AST [Catalytic activity/Vol] 16 U/L 13 - 35 U/L [facility] Bilirubin [Mass/Vol] 0.6 mg/dL 0.2 - 1 .3 mg/dL [facility] Calcium [Mass/Vol] 9.2 mg/dL 8.5 - 10. 2 mg/dL [facility] Chloride [Moles/Vol] 98 mmol/L 97 - 10 5 mmol/L [facility] CO2 [Moles/Vol] 22 mmol/L 22 - 30 mmol/L [facility] Creatinine [Mass/Vol] 0.92 mg/dL 0.58 - 0.96 mg/dL [facility] Estimated Glomerular Filtration Rate 65 mL/min/1.73m >=60 mL/min/1.73 m [facility] Glucose [Mass/Vol] 313 mg/dL High 74 - 99 mg/dL [facility] Potassium [Moles/Vol] 4.7 mmol/L 3.7 - 5.1 mmol/L [facility] Protein [Mass/Vol] 7.0 g/dL 6.3 - 8.0 g/dL [facility] Sodium [Moles/Vol] 134 mmol/L Low 136 - 144 mmol/L [facility] Urea nitrogen [Mass/Vol] 21 mg/dL 7 - 21 mg/dL [facility] MAGNESIUM [facility] 11-11-2022 Magnesium [Mass/Vol] 1.2 mg/dL Low 1.7 - 2 .3 mg/dL [facility] [place] 125 [facility] 11-03-2022 Cancer Ag 125 Qn 15 [arb'U]/mL <39 U/mL [facility] CBC W Auto Differential pane l (Bld)on 11-03-2022 Basophils (Bld) [#/Vol] 0.04 10*3/uL <0.11 k/uL [facility] Basophils/100 WBC (Bld) 0.7 % [facility] Differential cell count method Nom (Bld) Auto [facility] Eosinophils (Bld) [#/Vol] 0.16 10*3/uL <0.46 k/uL [facility] Eosinophils/100 WBC (Bld) 2.8 % [facility] Erythrocyte distribution width (RBC) [Ratio] 18.1 % High 11.5 - 15.0 % [facility] Hematocrit (Bld) [Volume fraction] 28.5 % Low 36.0 - 46.0 % [facility] Hemoglobin (Bld) [Mass/Vol] 9.4 g/dL Low 11.5 - 15.5 g/dL [facility] Immature granulocytes (Bld) [#/Vol] 0.03 10*3/uL <0.10 k/uL [facility] Immature granulocytes/100 WBC (Bld) 0.5 % [facility] Lymphocytes (Bld) [#/Vol] 1.14 10*3/uL 1.00 - 4.00 k/uL [facility] Lymphocytes/100 WBC (Bld) 20.2 % [facility] MCH (RBC) [Entitic mass] 30.0 pg 26.0 - 34.0 pg [facility] MCHC (RBC) [Mass/Vol] 33.0 g/dL 30.5 - 36.0 g/dL [facility] MCV (RBC) [Entitic vol] 91.1 fL 80.0 - 100.0 fL [facility] Monocytes (Bld) [#/Vol] 0.71 10*3/uL <0.87 k/uL [facility] Monocytes/100 WBC (Bld) 12.6 % [facility] Neutrophils (Bld) [#/Vol] 3.57 10*3/uL 1.45 - 7.50 k/uL [facility] Neutrophils/100 WBC (Bld) 63.2 % [facility] Nucleated RBC (Bld) [#/Vol] <0.01 k/uL [facility] Nucleated RBC/100 WBC (Bld) [Ratio] 0.0 /100 WBC [facility] Platelet mean volume (Bld) [Entitic vol] 9.6 fL 9.0 - 12.7 fL [facility] Platelets (Bld) [#/Vol] 97 10*3/uL Low 150 - 400 k/uL [facility] RBC (Bld) [#/Vol] 3.13 10*6/uL Low 3.90 - 5.2 0 m/uL [facility] WBC (Bld) [#/Vol] 5.65 10*3/uL 3.70 - 11.00 k/uL [facility] CORTISOL BLDon 11-03-2022 Cortisol [Mass/Vol] 11.8 ug/dL 4.8 - 19 .5 ug/dL [facility] Comprehensive metabolic 2000 panelon 11-03-2022 Albumin [Mass/Vol] 3.8 g/dL Low 3.9 - 4.9 g/dL [facility] ALP [Catalytic activity/Vol] 78 U/L 34 - 123 U/L [facility] ALT [Catalytic activity/Vol] 13 U/L 7 - 38 U/L [facility] Anion gap [Moles/Vol] 12 mmol/L 9 - 18 mmol/L [facility] AST [Catalytic activity/Vol] 14 U/L 13 - 35 U/L [facility] Bilirubin [Mass/Vol] 0.3 mg/dL 0.2 - 1 .3 mg/dL [facility] Calcium [Mass/Vol] 9.1 mg/dL 8.5 - 10. 2 mg/dL [facility] Chloride [Moles/Vol] 100 mmol/L 97 - 10 5 mmol/L [facility] CO2 [Moles/Vol] 24 mmol/L 22 - 30 mmol/L [facility] Creatinine [Mass/Vol] 0.95 mg/dL 0.58 - 0.96 mg/dL [facility] Estimated Glomerular Filtration Rate 62 mL/min/1.73m >=60 mL/min/1.73 m [facility] Glucose [Mass/Vol] 281 mg/dL High 74 - 99 mg/dL [facility] Potassium [Moles/Vol] 4.7 mmol/L 3.7 - 5.1 mmol/L [facility] Protein [Mass/Vol] 6.2 g/dL Low 6.3 - 8.0 g/dL [facility] Sodium [Moles/Vol] 136 mmol/L 136 - 144 mmol/L [facility] Urea nitrogen [Mass/Vol] 18 mg/dL 7 - 21 mg/dL [facility] MAGNESIUM [facility] 11-03-2022 Magnesium [Mass/Vol] 1.1 mg/dL Low 1.7 - 2 .3 mg/dL [facility] T4 FREE/FREE THYROXon 2022 Free T4 [Mass/Vol] 1.0 ng/dL 0.9 - 1.7 ng/dL [facility] TSH [facility] 11-03-2022 TSH Qn 2.410 m[IU]/L 0.270 - 4.200 mIU/L [facility] No Panel Informationon 10-28 [facility] [place] 125 [facility] 10-14-2022 Cancer Ag 125 Qn 14 [arb'U]/mL <39 U/mL [facility] T4 FREE/FREE THYROXon 2022 Free T4 [Mass/Vol] 1.1 ng/dL 0.9 - 1.7 ng/dL [facility] TSH [facility] 10-14-2022 TSH Qn 1.580 m[IU]/L 0.270 - 4.200 mIU/L [facility] CBC W Auto Differential pane l (Bld)on 10-13-2022 Basophils (Bld) [#/Vol] 0.03 10*3/uL <0.11 k/uL [facility] Basophils/100 WBC (Bld) 0.5 % [facility] Differential cell count method Nom (Bld) Auto [facility] Eosinophils (Bld) [#/Vol] 0.20 10*3/uL <0.46 k/uL [facility] Eosinophils/100 WBC (Bld) 3.5 % [facility] Erythrocyte distribution width (RBC) [Ratio] 15.9 % High 11.5 - 15.0 % [facility] Hematocrit (Bld) [Volume fraction] 32.5 % Low 36.0 - 46.0 % [facility] Hemoglobin (Bld) [Mass/Vol] 10.9 g/dL Low 11.5 - 15.5 g/dL [facility] Immature granulocytes (Bld) [#/Vol] 0.03 10*3/uL <0.10 k/uL [facility] Immature granulocytes/100 WBC (Bld) 0.5 % [facility] Lymphocytes (Bld) [#/Vol] 1.33 10*3/uL 1.00 - 4.00 k/uL [facility] Lymphocytes/100 WBC (Bld) 23.0 % [facility] MCH (RBC) [Entitic mass] 29.7 pg 26.0 - 34.0 pg [facility] MCHC (RBC) [Mass/Vol] 33.5 g/dL 30.5 - 36.0 g/dL [facility] MCV (RBC) [Entitic vol] 88.6 fL 80.0 - 100.0 fL [facility] Monocytes (Bld) [#/Vol] 0.50 10*3/uL <0.87 k/uL [facility] Monocytes/100 WBC (Bld) 8.6 % [facility] Neutrophils (Bld) [#/Vol] 3.70 10*3/uL 1.45 - 7.50 k/uL [facility] Neutrophils/100 WBC (Bld) 63.9 % [facility] Nucleated RBC (Bld) [#/Vol] <0.01 k/uL [facility] Nucleated RBC/100 WBC (Bld) [Ratio] 0.0 /100 WBC [facility] Platelet mean volume (Bld) [Entitic vol] 9.0 fL 9.0 - 12.7 fL [facility] Platelets (Bld) [#/Vol] 140 10*3/uL Low 150 - 400 k/uL [facility] RBC (Bld) [#/Vol] 3.67 10*6/uL Low 3.90 - 5.2 0 m/uL [facility] WBC (Bld) [#/Vol] 5.79 10*3/uL 3.70 - 11.00 k/uL [facility] Comprehensive metabolic 2000 panelon 10-13-2022 Albumin [Mass/Vol] 4.0 g/dL 3.9 - 4.9 g/dL [facility] ALP [Catalytic activity/Vol] 78 U/L 34 - 123 U/L [facility] ALT [Catalytic activity/Vol] 15 U/L 7 - 38 U/L [facility] Anion gap [Moles/Vol] 12 mmol/L 9 - 18 mmol/L [facility] AST [Catalytic activity/Vol] 16 U/L 13 - 35 U/L [facility] Bilirubin [Mass/Vol] 0.4 mg/dL 0.2 - 1 .3 mg/dL [facility] Calcium [Mass/Vol] 9.5 mg/dL 8.5 - 10. 2 mg/dL [facility] Chloride [Moles/Vol] 102 mmol/L 97 - 10 5 mmol/L [facility] CO2 [Moles/Vol] 24 mmol/L 22 - 30 mmol/L [facility] Creatinine [Mass/Vol] 0.95 mg/dL 0.58 - 0.96 mg/dL [facility] Estimated Glomerular Filtration Rate 62 mL/min/1.73m >=60 mL/min/1.73 m [facility] Glucose [Mass/Vol] 215 mg/dL High 74 - 99 mg/dL [facility] Potassium [Moles/Vol] 4.7 mmol/L 3.7 - 5.1 mmol/L [facility] Protein [Mass/Vol] 6.9 g/dL 6.3 - 8.0 g/dL [facility] Sodium [Moles/Vol] 138 mmol/L 136 - 144 mmol/L [facility] Urea nitrogen [Mass/Vol] 14 mg/dL 7 - 21 mg/dL [facility] MAGNESIUM BLDon 10-13-2022 Magnesium [Mass/Vol] 1.2 mg/dL Low 1.7 - 2 .3 mg/dL [facility] CA 125 BLDon 09-03-2022 Cancer Ag 125 Qn 15 [arb'U]/mL <39 U/mL [facility] CBC W Auto Differential pane l (Bld)on 09-03-2022 Basophils (Bld) [#/Vol] <0.11 k/uL [facility] Basophils/100 WBC (Bld) 0.1 % [facility] Differential cell count method Nom (Bld) Auto [facility] Eosinophils (Bld) [#/Vol] <0.46 k/uL [facility] Eosinophils/100 WBC (Bld) 0.0 % [facility] Erythrocyte distribution width (RBC) [Ratio] 13.8 % 11.5 - 15.0 % [facility] Hematocrit (Bld) [Volume fraction] 36.1 % 36.0 - 46.0 % [facility] Hemoglobin (Bld) [Mass/Vol] 12.0 g/dL 11.5 - 15.5 g/dL [facility] Immature granulocytes (Bld) [#/Vol] 0.04 10*3/uL <0.10 k/uL [facility] Immature granulocytes/100 WBC (Bld) 0.4 % [facility] Lymphocytes (Bld) [#/Vol] 0.89 10*3/uL Low 1.00 - 4.00 k/uL [facility] Lymphocytes/100 WBC (Bld) 8.0 % [facility] MCH (RBC) [Entitic mass] 29.2 pg 26.0 - 34.0 pg [facility] MCHC (RBC) [Mass/Vol] 33.2 g/dL 30.5 - 36.0 g/dL [facility] MCV (RBC) [Entitic vol] 87.8 fL 80.0 - 100.0 fL [facility] Monocytes (Bld) [#/Vol] 0.13 10*3/uL <0.87 k/uL [facility] Monocytes/100 WBC (Bld) 1.2 % [facility] Neutrophils (Bld) [#/Vol] 9.99 10*3/uL High 1.45 - 7.50 k/uL [facility] Neutrophils/100 WBC (Bld) 90.3 % [facility] Nucleated RBC (Bld) [#/Vol] <0.01 k/uL [facility] Nucleated RBC/100 WBC (Bld) [Ratio] 0.0 /100 WBC [facility] Platelet mean volume (Bld) [Entitic vol] 10.1 fL 9.0 - 12.7 fL [facility] Platelets (Bld) [#/Vol] 227 10*3/uL 150 - 400 k/uL [facility] RBC (Bld) [#/Vol] 4.11 10*6/uL 3.90 - 5.2 0 m/uL [facility] WBC (Bld) [#/Vol] 11.06 10*3/uL High 3.70 - 11.00 k/uL [facility] Comprehensive metabolic 2000 panelon 09-03-2022 Albumin [Mass/Vol] 4.2 g/dL 3.9 - 4.9 g/dL [facility] ALP [Catalytic activity/Vol] 68 U/L 34 - 123 U/L [facility] ALT [Catalytic activity/Vol] 16 U/L 7 - 38 U/L [facility] Anion gap [Moles/Vol] 15 mmol/L 9 - 18 mmol/L [facility] AST [Catalytic activity/Vol] 15 U/L 13 - 35 U/L [facility] Bilirubin [Mass/Vol] 0.4 mg/dL 0.2 - 1 .3 mg/dL [facility] Calcium [Mass/Vol] 9.5 mg/dL 8.5 - 10. 2 mg/dL [facility] Chloride [Moles/Vol] 96 mmol/L Low 97 - 10 5 mmol/L [facility] CO2 [Moles/Vol] 21 mmol/L Low 22 - 30 mmol/L [facility] Creatinine [Mass/Vol] 0.88 mg/dL 0.58 - 0.96 mg/dL [facility] Estimated Glomerular Filtration Rate 68 mL/min/1.73m >=60 mL/min/1.73 m [facility] Glucose [Mass/Vol] 406 mg/dL High 74 - 99 mg/dL [facility] Potassium [Moles/Vol] 5.4 mmol/L High 3.7 - 5.1 mmol/L [facility] Protein [Mass/Vol] 6.9 g/dL 6.3 - 8.0 g/dL [facility] Sodium [Moles/Vol] 132 mmol/L Low 136 - 144 mmol/L [facility] Urea nitrogen [Mass/Vol] 23 mg/dL High 7 - 21 mg/dL [facility] MAGNESIUM Don 09-03-2022 Magnesium [Mass/Vol] 1.3 mg/dL Low 1.7 - 2 .3 mg/dL [facility] [place] 125 Don 08-14-2022 Cancer Ag 125 Qn 21 [arb'U]/mL <39 U/mL [facility] CBC W Auto Differential pane l (Bld)on 08-14-2022 Basophils (Bld) [#/Vol] 0.06 10*3/uL <0.11 k/uL [facility] Basophils/100 WBC (Bld) 0.6 % [facility] Differential cell count method Nom (Bld) Auto [facility] Eosinophils (Bld) [#/Vol] 0.57 10*3/uL High <0.46 k/uL [facility] Eosinophils/100 WBC (Bld) 6.1 % [facility] Erythrocyte distribution width (RBC) [Ratio] 14.0 % 11.5 - 15.0 % [facility] Hematocrit (Bld) [Volume fraction] 35.4 % Low 36.0 - 46.0 % [facility] Hemoglobin (Bld) [Mass/Vol] 11.5 g/dL 11.5 - 15.5 g/dL [facility] Immature granulocytes (Bld) [#/Vol] 0.03 10*3/uL <0.10 k/uL [facility] Immature granulocytes/100 WBC (Bld) 0.3 % [facility] Lymphocytes (Bld) [#/Vol] 1.50 10*3/uL 1.00 - 4.00 k/uL [facility] Lymphocytes/100 WBC (Bld) 15.9 % [facility] MCH (RBC) [Entitic mass] 29.4 pg 26.0 - 34.0 pg [facility] MCHC (RBC) [Mass/Vol] 32.5 g/dL 30.5 - 36.0 g/dL [facility] MCV (RBC) [Entitic vol] 90.5 fL 80.0 - 100.0 fL [facility] Monocytes (Bld) [#/Vol] 0.76 10*3/uL <0.87 k/uL [facility] Monocytes/100 WBC (Bld) 8.1 % [facility] Neutrophils (Bld) [#/Vol] 6.49 10*3/uL 1.45 - 7.50 k/uL [facility] Neutrophils/100 WBC (Bld) 69.0 % [facility] Nucleated RBC (Bld) [#/Vol] <0.01 k/uL [facility] Nucleated RBC/100 WBC (Bld) [Ratio] 0.0 /100 WBC [facility] Platelet mean volume (Bld) [Entitic vol] 10.1 fL 9.0 - 12.7 fL [facility] Platelets (Bld) [#/Vol] 270 10*3/uL 150 - 400 k/uL [facility] RBC (Bld) [#/Vol] 3.91 10*6/uL 3.90 - 5.2 0 m/uL [facility] WBC (Bld) [#/Vol] 9.41 10*3/uL 3.70 - 11.00 k/uL [facility] Comprehensive metabolic 2000 panelon 08-14-2022 Albumin [Mass/Vol] 4.1 g/dL 3.9 - 4.9 g/dL [facility] ALP [Catalytic activity/Vol] 68 U/L 34 - 123 U/L [facility] ALT [Catalytic activity/Vol] 14 U/L 7 - 38 U/L [facility] Anion gap [Moles/Vol] 10 mmol/L 9 - 18 mmol/L [facility] AST [Catalytic activity/Vol] 12 U/L Low 13 - 35 U/L [facility] Bilirubin [Mass/Vol] 0.3 mg/dL 0.2 - 1 .3 mg/dL [facility] Calcium [Mass/Vol] 9.2 mg/dL 8.5 - 10. 2 mg/dL [facility] Chloride [Moles/Vol] 98 mmol/L 97 - 10 5 mmol/L [facility] CO2 [Moles/Vol] 27 mmol/L 22 - 30 mmol/L [facility] Creatinine [Mass/Vol] 0.93 mg/dL 0.58 - 0.96 mg/dL [facility] Estimated Glomerular Filtration Rate 64 mL/min/1.73m >=60 mL/min/1.73 m [facility] Glucose [Mass/Vol] 196 mg/dL High 74 - 99 mg/dL [facility] Potassium [Moles/Vol] 4.9 mmol/L 3.7 - 5.1 mmol/L [facility] Protein [Mass/Vol] 7.2 g/dL 6.3 - 8.0 g/dL [facility] Sodium [Moles/Vol] 135 mmol/L Low 136 - 144 mmol/L [facility] Urea nitrogen [Mass/Vol] 21 mg/dL 7 - 21 mg/dL [facility] TSH BLDon 08-14-2022 TSH Qn 1.060 m[IU]/L 0.270 - 4.200 mIU/L [facility] VITAMIN B12 BLOODon 08-15-19 Cobalamin (Vitamin B12) [Mass/Vol] 339 pg/mL 232 - 1,245 pg/mL [facility] UA DIP, URINE (POC)on 2022 BILIRUBIN UA (POCT) Negative Negative [facility] CLARITY UA (POCT) Slightly Cloudy Cl [facility] COLOR UA (POCT) Dark yellow [facility] GLUCOSE UA (POCT) Negative Negative mg/dL [facility] HEMOGLOBIN/BLOOD UA (POCT) Moderate Abnormal Negative [facility] KETONE UA (POCT) Trace Negative mg/dL [facility] LEUKOCYTES UA (POCT) Large Abnormal Negative [facility] NITRITE UA (POCT) Negative Negative [facility] PH UA (POCT) 5.5 4.5 - 8.0 [facility] Protein Ql (U) 100 mg/dL Abnormal Negative mg/dL [facility] SPECIFIC GRAVITY UA (POCT) 1.020 1.005 - 1.030 [facility] UROBILINOGEN UA (POCT) 1.0 E.U./dL Areli l E.U./dL [facility] XR CHEST 2V FRONTAL/LATon [facility] No Panel Informationon 06-23 Radiology Result ACTIONABLE Abnormal [facility] CT ABD/PEL W IVCONon 023 [facility] CBC W Auto Differential pane l (Bld)on 06-11-2022 Basophils (Bld) [#/Vol] 0.07 10*3/uL <0.11 k/uL [facility] Basophils/100 WBC (Bld) 0.6 % C [facility] Differential cell count method Nom (Bld) Auto [facility] Eosinophils (Bld) [#/Vol] 0.24 10*3/uL <0.46 k/uL [facility] Eosinophils/100 WBC (Bld) 2.1 % [facility] Erythrocyte distribution width (RBC) [Ratio] 13.3 % 11.5 - 15.0 % [facility] Hematocrit (Bld) [Volume fraction] 39.8 % 36.0 - 46.0 % [facility] Hemoglobin (Bld) [Mass/Vol] 12.6 g/dL 11.5 - 15.5 g/dL [facility] Immature granulocytes (Bld) [#/Vol] 0.03 10*3/uL <0.10 k/uL [facility] Immature granulocytes/100 WBC (Bld) 0.3 % [facility] Lymphocytes (Bld) [#/Vol] 1.33 10*3/uL 1.00 - 4.00 k/uL [facility] Lymphocytes/100 WBC (Bld) 11.5 % [facility] MCH (RBC) [Entitic mass] 28.9 pg 26.0 - 34.0 pg [facility] MCHC (RBC) [Mass/Vol] 31.7 g/dL 30.5 - 36.0 g/dL [facility] MCV (RBC) [Entitic vol] 91.3 fL 80.0 - 100.0 fL [facility] Monocytes (Bld) [#/Vol] 0.89 10*3/uL High <0.87 k/uL [facility] Monocytes/100 WBC (Bld) 7.7 % C [facility] Neutrophils (Bld) [#/Vol] 9.03 10*3/uL High 1.45 - 7.50 k/uL [facility] Neutrophils/100 WBC (Bld) 77.8 % [facility] Nucleated RBC (Bld) [#/Vol] <0.01 k/uL [facility] Nucleated RBC/100 WBC (Bld) [Ratio] 0.0 /100 WBC [facility] Platelet mean volume (Bld) [Entitic vol] 9.8 fL 9.0 - 12.7 fL [facility] Platelets (Bld) [#/Vol] 269 10*3/uL 150 - 400 k/uL [facility] RBC (Bld) [#/Vol] 4.36 10*6/uL 3.90 - 5.2 0 m/uL [facility] WBC (Bld) [#/Vol] 11.59 10*3/uL High 3.70 - 11.00 k/uL [facility] Comprehensive metabolic 2000 panelon 06-11-2022 Albumin [Mass/Vol] 3.6 g/dL Low 3.9 - 4.9 g/dL [facility] ALP [Catalytic activity/Vol] 76 U/L 34 - 123 U/L [facility] ALT [Catalytic activity/Vol] 25 U/L 7 - 38 U/L [facility] Anion gap [Moles/Vol] 14 mmol/L 9 - 18 mmol/L [facility] AST [Catalytic activity/Vol] 18 U/L 13 - 35 U/L [facility] Bilirubin [Mass/Vol] 0.5 mg/dL 0.2 - 1 .3 mg/dL [facility] Calcium [Mass/Vol] 9.2 mg/dL 8.5 - 10. 2 mg/dL [facility] Chloride [Moles/Vol] 94 mmol/L Low 97 - 10 5 mmol/L [facility] CO2 [Moles/Vol] 26 mmol/L 22 - 30 mmol/L [facility] Creatinine [Mass/Vol] 0.93 mg/dL 0.58 - 0.96 mg/dL [facility] Estimated Glomerular Filtration Rate 64 mL/min/1.73m >=60 mL/min/1.73 m [facility] Glucose [Mass/Vol] 264 mg/dL High 74 - 99 mg/dL [facility] Potassium [Moles/Vol] 4.5 mmol/L 3.7 - 5.1 mmol/L [facility] Protein [Mass/Vol] 7.0 g/dL 6.3 - 8.0 g/dL [facility] Sodium [Moles/Vol] 134 mmol/L Low 136 - 144 mmol/L [facility] Urea nitrogen [Mass/Vol] 17 mg/dL 7 - 21 mg/dL [facility] US KIDNEY/BLADDERon 06-12-19 23 Radiology Result ACTIONABLE Abnormal [facility] UA DIP, URINE (POC)on 2022 BILIRUBIN UA (POCT) Negative Negative [facility] CLARITY UA (POCT) Cloudy [facility] COLOR UA (POCT) Dark yellow [facility] GLUCOSE UA (POCT) Negative Negative mg/dL [facility] HEMOGLOBIN/BLOOD UA (POCT) Trace-intact Abnormal Negative [facility] KETONE UA (POCT) Negative Negative mg/dL [facility] LEUKOCYTES UA (POCT) Moderate Abnormal Negative [facility] NITRITE UA (POCT) Negative Negative [facility] PH UA (POCT) 6.5 4.5 - 8.0 [facility] Protein Ql (U) 100 mg/dL Abnormal Negative mg/dL [facility] SPECIFIC GRAVITY UA (POCT) 1.020 1.005 - 1.030 [facility] UROBILINOGEN UA (POCT) 0.2 E.U./dL Areli l E.U./dL [facility] Urinalysis complete panel (U )on 06-05-2022 Bacteria LM.HPF (Urine sed) [#/Area] Rare Abnormal None Seen /HPF [facility] Bilirubin Ql (U) Negative Negative [facility] Clarity (Unsp spec) Cloudy Abnormal Clear [facility] Color (U) Yellow Yellow [facility] Epithelial cells LM.HPF (Urine sed) [#/Area] Few [facility] Glucose Test strip (U) [Mass/Vol] Negative Trace, Negative [facility] Hemoglobin Ql (U) Negative Negative, Trace [facility] Hyaline casts (Urine sed) [#/Area] /[LPF] Abnormal 0 /LPF [facility] Ketones Ql (U) Negative Trace, Negative [facility] Leukocyte esterase Test strip Ql (U) 250 Gabriela/uL Abnormal Negative, 25 Gabriela/uL [facility] Nitrite Ql (U) Negative Negative [facility] pH (U) 6.5 [pH] 5.0 - 8.0 [facility] Protein (U) [Mass/Vol] 2+ Abnormal Trace , Negative [facility] RBC LM.HPF (Urine sed) [#/Area] 3-5 /HPF Abnormal 0-3 /HPF [facility] Specific gravity (U) [Rel density] 1.018 1.005 - 1.030 [facility] Urobilinogen Ql (U) Negative Negative [facility] WBC LM.HPF (Urine sed) [#/Area] /[HPF] Abnormal 0-5 /HPF [facility] UA DIP, URINE (POC)on 2022 BILIRUBIN UA (POCT) Negative Negative [facility] CLARITY UA (POCT) Cloudy [facility] COLOR UA (POCT) Dark yellow [facility] GLUCOSE UA (POCT) Negative Negative mg/dL [facility] HEMOGLOBIN/BLOOD UA (POCT) Large Abnormal Negative [facility] KETONE UA (POCT) Negative Negative mg/dL [facility] LEUKOCYTES UA (POCT) Small Abnormal Negative [facility] NITRITE UA (POCT) Positive Abnormal Negative [facility] PH UA (POCT) 6.0 4.5 - 8.0 [facility] Protein Ql (U) 30 mg/dL Abnormal Negative mg/dL [facility] SPECIFIC GRAVITY UA (POCT) 1.020 1.005 - 1.030 [facility] UROBILINOGEN UA (POCT) 1.0 E.U./dL Areli l E.U./dL [facility] COLONOSCOPY SCREENINGon [facility] GLUCOSE, BLOOD (POC)on 12-02 Glucose [Mass/Vol] 145 mg/dL Abnormal 74 - 99 mg/dL [facility] No Panel Informationon 05-27 IMPRESSION: Osteoarthrosis. No acute osseous abnormality identified. Printer Floor Covering Assistant[facility] Transcribe Date/Time: May 27 2020 11:52A Dictated by : AGGIE CARLSON MD This examination was interpreted and the report reviewed and electronically signed by: AGGIE CARLSON MD on May 27 2020 11:54AM [facility] DIVISION OF RADIOLOGY Radiology Study observation (narrative) [facility] No Panel InformationOrdered By: [facility] Provider on 05-27-2020 [facility] XR Radius and Ulna - right A P and Lateralon 05-27-2020 * * *Final Report* * * DATE OF EXAM: May 27 2020 11:21AM WOX 5342 - XR FOREARM 2V AP/LAT RT / PROCEDURE REASON: Bone anomaly * * * * Physician Interpretation * * * * Right shoulder and forearm radiographs HISTORY: 74 years old Clinical information: Acute pain of right shoulder right anterior shoulder pain. No injury. (accession [id number]), right posterior lump on arm for a while. Marked with a arrow. No injury. (accession [id number]) TECHNIQUE: Images: XR SHLDR >/=3V AP/JACK AP/OTHR RT, XR FOREARM 2V AP/LAT RT Comparison: None. Right shoulder RESULT: The glenohumeral joint space is maintained. Narrowing of the acromioclavicular joint with associated subjacent osteophytes. No fracture or dislocation. No soft tissue abnormality identified. Right forearm RESULT: Osteophyte formation subjacent to the medial and lateral joint space of the elbow. Osteophyte formation involving the coronoid process of the ulna. Enthesophyte at the triceps insertion site of the ulna. Osteophyte formation subjacent to the first CMC joint. No fracture or dislocation. No elbow joint effusion. Soft tissue swelling of the dorsal mid forearm. DIVISION OF RADIOLOGY Provider, [facility] - 05/27/2020 * * *Final Report* * * DATE OF EXAM: May 27 2020 11:21AM WOX 5342 - XR FOREARM 2V AP/LAT RT / PROCEDURE REASON: Bone anomaly * * * * Physician Interpretation * * * * Right shoulder and forearm radiographs HISTORY: 74 years old Clinical information: Acute pain of right shoulder right anterior shoulder pain. No injury. (accession [id number]), right posterior lump on arm for a while. Marked with a arrow. No injury. (accession [id number]) TECHNIQUE: Images: XR SHLDR >/=3V AP/JAKC AP/OTHR RT, XR FOREARM 2V AP/LAT RT Comparison: None. Right shoulder RESULT: The glenohumeral joint space is maintained. Narrowing of the acromioclavicular joint with associated subjacent osteophytes. No fracture or dislocation. No soft tissue abnormality identified. Right forearm RESULT: Osteophyte formation subjacent to the medial and lateral joint space of the elbow. Osteophyte formation involving the coronoid process of the ulna. Enthesophyte at the triceps insertion site of the ulna. Osteophyte formation subjacent to the first CMC joint. No fracture or dislocation. No elbow joint effusion. Soft tissue swelling of the dorsal mid forearm. IMPRESSION IMPRESSION: Osteoarthrosis. No acute osseous abnormality identified. Printer Floor Covering Assistant: [employer] Transcribe Date/Time: May 27 2020 11:52A Dictated by : AGGIE CARLSON MD This examination was interpreted and the report reviewed and electronically signed by: AGGIE CARLSON MD on May 27 2020 11:54AM EST [facility] XR Shoulder - right 3 Viewso n 05-27-2020 * * *Final Report* * * DATE OF EXAM: May 27 2020 11:21AM WOX 5253 - XR SHLDR >/=3V AP/JACK AP/OTHR RT / PROCEDURE REASON: Acute pain of right shoulder * * * * Physician Interpretation * * * * Right shoulder and forearm radiographs HISTORY: 74 years old Clinical information: Acute pain of right shoulder right anterior shoulder pain. No injury. (accession [id number]), right posterior lump on arm for a while. Marked with a arrow. No injury. (accession [id number]) TECHNIQUE: Images: XR SHLDR >/=3V AP/JACK AP/OTHR RT, XR FOREARM 2V AP/LAT RT Comparison: None. Right shoulder RESULT: The glenohumeral joint space is maintained. Narrowing of the acromioclavicular joint with associated subjacent osteophytes. No fracture or dislocation. No soft tissue abnormality identified. Right forearm RESULT: Osteophyte formation subjacent to the medial and lateral joint space of the elbow. Osteophyte formation involving the coronoid process of the ulna. Enthesophyte at the triceps insertion site of the ulna. Osteophyte formation subjacent to the first CMC joint. No fracture or dislocation. No elbow joint effusion. Soft tissue swelling of the dorsal mid forearm. DIVISION OF RADIOLOGY Provider, [facility] - 05/27/2020 * * *Final Report* * * DATE OF EXAM: May 27 2020 11:21AM WOX 5253 - XR SHLDR >/=3V AP/JACK AP/OTHR RT / PROCEDURE REASON: Acute pain of right shoulder * * * * Physician Interpretation * * * * Right shoulder and forearm radiographs HISTORY: 74 years old Clinical information: Acute pain of right shoulder right anterior shoulder pain. No injury. (accession [id number]), right posterior lump on arm for a while. Marked with a arrow. No injury. (accession [id number]) TECHNIQUE: Images: XR SHLDR >/=3V AP/JACK AP/OTHR RT, XR FOREARM 2V AP/LAT RT Comparison: None. Right shoulder RESULT: The glenohumeral joint space is maintained. Narrowing of the acromioclavicular joint with associated subjacent osteophytes. No fracture or dislocation. No soft tissue abnormality identified. Right forearm RESULT: Osteophyte formation subjacent to the medial and lateral joint space of the elbow. Osteophyte formation involving the coronoid process of the ulna. Enthesophyte at the triceps insertion site of the ulna. Osteophyte formation subjacent to the first CMC joint. No fracture or dislocation. No elbow joint effusion. Soft tissue swelling of the dorsal mid forearm. IMPRESSION IMPRESSION: Osteoarthrosis. No acute osseous abnormality identified. Printer Floor Covering Assistant: [facility] Transcribe Date/Time: May 27 2020 11:52A Dictated by : AGGIE CARLSON MD This examination was interpreted and the report reviewed and electronically signed by: AGGIE CARLSON MD on May 27 2020 11:54AM EST [facility] Vital Signs Date Time Vital Sign Value Performing Clinician Facility 10-25-2024 09:33-0400 Body mass index (BMI) [Ratio] 46.51 kg/m2 [facility] [employer] Work Phone: [facility] 10-25-2024 09:33-0400 Body temperature 98.29 [degF] [facility] [employer] Work Phone: [facility] 10-25-2024 09:33-0400 Body weight 134.72 kg [facility] [employer] [employer] Phone: [facility] 10-25-2024 09:33-0400 Diastolic blood pressure 84 mm[Hg] [facility] [employer] Work Phone: [facility] 10-25-2024 09:33-0400 Heart rate 72 /min [facility] [employer] Phone: [facility] 10-25-2024 09:33-0400 SaO2% (BldA) [Mass fraction] 94 % [facility] [employer] Work Phone: [facility] Comment on above: 2L of O2 10-25-2024 09:33-0400 Systolic blood pressure 138 mm[Hg] Nora Masci DO Work Phone: [facility] 10-25-2024 09:16-0400 Body mass index (BMI) [Ratio] 46.51 kg/m2 [facility] Work Phone: [facility] 10-25-2024 09:16-0400 Body weight 134.72 kg [facility] Work Phone: [facility] 09-13-2024 10:20-0400 Body mass index (BMI) [Ratio] 46.33 kg/m2 Tamara Mari [employer]SU[employer]SULT[employer]DIRECTOR MARKETING Work Phone: [facility] 09-13-2024 10:20-0400 Body weight 134.2 kg Tamara Mari NETSUITE CONSULTANT.DIRECTOR MARKETING Work Phone: [facility] 09-13-2024 10:20-0400 Diastolic blood pressure 74 mm[Hg] Tamara Murilloenter NETSUITE CONSULTANT.DIRECTOR MARKETING Work Phone: [facility] 09-13-2024 10:20-0400 Heart rate 72 /min Tamara Murilloenter NETSUITE CONSULTANT.DIRECTOR MARKETING Work Phone: [facility] 09-13-2024 10:20-0400 Respiratory rate 14 /min Tamara Mari NETSUITE CONSULTANT.DIRECTOR MARKETING Work Phone: [facility] 09-13-2024 10:20-0400 SaO2% (BldA) [Mass fraction] 95 % Tamara Mari NETSUITE CONSULTANT.DIRECTOR MARKETING Work Phone: [facility] Comment on above: Use of O2 at 2 L/M via nasal cannula 09-13-2024 10:20-0400 Systolic blood pressure 126 mm[Hg] Tamara Murilloenter NETSUITE CONSULTANT.DIRECTOR MARKETING Work Phone: [facility] 09-13-2024 09:52-0400 Body mass index (BMI) [Ratio] 46.58 kg/m2 [facility] Work Phone: [facility] 09-13-2024 09:52-0400 Body weight 134.94 kg [facility] Work Phone: [facility] 06-25-2025 10:44-0400 Body mass index (BMI) [Ratio] 47.45 kg/m2 [facility] Work Phone: [facility] 08-23-2024 10:44-0400 Body temperature 97.2 [degF] Nora Estradai DO Work Phone: [facility] 08-23-2024 10:44-0400 Body weight 137.44 kg [facility] Work Phone: [facility] 08-23-2024 10:44-0400 Diastolic blood pressure 80 mm[Hg] Nora Estradai DO Work Phone: [facility] 08-23-2024 10:44-0400 Heart rate 75 /min Nora Estradai DO Work Phone: [facility] 08-23-2024 10:44-0400 SaO2% (BldA) [Mass fraction] 97 % Nora Estradai DO Work Phone: [facility] 08-23-2024 10:44-0400 Systolic blood pressure 128 mm[Hg] Nora Estradai DO Work Phone: [facility] 08-01-2024 10:12-0400 Body mass index (BMI) [Ratio] 45.96 kg/m2 Maisha Edmonds Work Phone: [facility] 08-01-2024 10:12-0400 Body temperature 97.7 [degF] Maishazia Edmonds Work Phone: [facility] 08-01-2024 10:12-0400 Body weight 133.13 kg Maisha Edmonds Work Phone: [facility] 08-01-2024 10:12-0400 Diastolic blood pressure 85 mm[Hg] Maisha Edmonds Work Phone: [facility] 08-01-2024 10:12-0400 Heart rate 67 /min Maisha Edmonds Work Phone: [facility] 08-01-2024 10:12-0400 SaO2% (BldA) [Mass fraction] 96 % Maisha Edmonds Work Phone: [facility] 08-01-2024 10:12-0400 Systolic blood pressure 130 mm[Hg] Maisha Edmonds Work Phone: [facility] 08-01-2024 09:50-0400 Body mass index (BMI) [Ratio] 45.96 kg/m2 [facility] Work Phone: [facility] 08-01-2024 09:50-0400 Body weight 133.13 kg [facility] Work Phone: [facility] 07-11-2024 10:00-0400 Body temperature 97.3 [degF] [facility] Work Phone: [facility] 07-11-2024 10:00-0400 Diastolic blood pressure 76 mm[Hg] [facility] Work Phone: [facility] 07-11-2024 10:00-0400 Heart rate 82 /min [facility] Work Phone: [facility] 07-11-2024 10:00-0400 Systolic blood pressure 128 mm[Hg] [facility] Work Phone: [facility] 07-11-2024 09:00-0400 Body height 170.2 cm [facility] Work Phone: [facility] 07-03-2024 14:18-0400 Body mass index (BMI) [Ratio] 45.11 kg/m2 Nora Masci DO Work Phone: [facility] 07-03-2024 14:18-0400 Body temperature 97.3 [degF] Nora Masci DO Work Phone: [facility] 07-03-2024 14:18-0400 Body weight 130.64 kg Nora Masci DO Work Phone: [facility] 07-03-2024 14:18-0400 Diastolic blood pressure 80 mm[Hg] Nora Masci DO Work Phone: [facility] 07-03-2024 14:18-0400 Heart rate 85 /min Nora Masci DO Work Phone: [facility] 07-03-2024 14:18-0400 SaO2% (BldA) [Mass fraction] 93 % Nora Branham DO Work Phone: [facility] Comment on above: 2L of O2 07-03-2024 14:18-0400 Systolic blood pressure 129 mm[Hg] Nora Branham DO Work Phone: [facility] 05-25-2024 15:18-0400 Diastolic blood pressure 68 mm[Hg] Pamela Nelson MD Work Phone: [facility] 05-25-2024 15:18-0400 Heart rate 80 /min Pamela Nelson MD Work Phone: [facility] 05-25-2024 15:18-0400 Respiratory rate 16 /min Pamela Nelson MD Work Phone: [facility] 05-25-2024 15:18-0400 SaO2% (BldA) [Mass fraction] 92 % Pamela Nelson MD Work Phone: [facility] 05-25-2024 15:18-0400 Systolic blood pressure 112 mm[Hg] Pamela Nelson MD Work Phone: [facility] 05-25-2024 13:41-0400 Diastolic blood pressure 68 mm[Hg] Billie Tannhof NETSUITE CONSULTANT.DIRECTOR MARKETING Work Phone: [facility] 05-25-2024 13:41-0400 Heart rate 80 /min Billie Tannhof NETSUITE CONSULTANT.DIRECTOR MARKETING Work Phone: [facility] 05-25-2024 13:41-0400 Respiratory rate 16 /min Billie Tannhof NETSUITE CONSULTANT.DIRECTOR MARKETING Work Phone: [facility] 05-25-2024 13:41-0400 SaO2% (BldA) [Mass fraction] 92 % Billie Tannhof NETSUITE CONSULTANT.DIRECTOR MARKETING Work Phone: [facility] Comment on above: 2 L 05-25-2024 13:41-0400 Systolic blood pressure 112 mm[Hg] Billie Tannhof NETSUITE CONSULTANT.DIRECTOR MARKETING Work Phone: [facility] 05-23-2024 08:15-0400 Body mass index (BMI) [Ratio] 43.85 kg/m2 Nora Branham DO Work Phone: [facility] 05-23-2024 08:15-0400 Body temperature 97.5 [degF] Nora Branham DO Work Phone: [facility] 05-23-2024 08:15-0400 Body weight 127.01 kg Nora Branham DO Work Phone: [facility] 05-23-2024 08:15-0400 Diastolic blood pressure 64 mm[Hg] Nora Branham DO Work Phone: [facility] 05-23-2024 08:15-0400 Heart rate 80 /min Nora Branham DO Work Phone: [facility] 05-23-2024 08:15-0400 SaO2% (BldA) [Mass fraction] 91 % Nora Branham DO Work Phone: [facility] Comment on above: 2L of O2 05-23-2024 08:15-0400 Systolic blood pressure 98 mm[Hg] Nora Branham DO Work Phone: [facility] 05-08-2024 18:37-0400 SaO2% (BldA) [Mass fraction] 91 % [facility] Comment on above: Order Comment: Specimen Type: ARTERIAL B LOOD SPECIMENOrdering Facility: [facility] Address: [address] [place] [address] Performed By: #### A LLBG ####[facility] RESPIRATORYIA [id number] [id number] [place] [id number] 05-02-2024 10:35-0500 SaO2% (BldA) [Mass fraction] 91 % [facility] Comment on above: Order Comment: Specimen Type: ARTERIAL B LOOD SPECIMENOrdering Facility: [facility] Address: [address] [place] [address] Performed By: #### A LLBG ####[facility] RESPIRATORYCLIA [id number] [facility] RESP[facility]AT[facility] [id number] [id number] 05-02-2024 08:05-0500 SaO2% (BldA) [Mass fraction] 93 % GO GAYLE [facility] Comment on above: Order Comment: Specimen Type: ARTERIAL B LOOD SPECIMENOrdering Facility: [facility] Address: [address] [place], [place] [id number] Performed By: #### A LLBG ####[facility] RESPIRATORYCLIA [id number] [facility] RESP[facility] [id number] [id number] 05-02-2024 02:21-0500 SaO2% (BldA) [Mass fraction] 99 % VINH [facility] Comment on above: Order Comment: Specimen Type: BLOOD SPEC IMEN Ordering Facility: [facility] Address: [address] [place] [address] Performed By: #### S LACTR #### [facility] CLIA [id number] [address] [place] [id number] [place] [address] [facility] 05-01-2024 21:21-0500 SaO2% (BldA) [Mass fraction] % VINH [facility] Comment on above: Order Comment: Specimen Type: BLOOD SPEC IMEN Ordering Facility: [facility] Address: [address] [place] [address] Performed By: #### S LACTR #### [facility] CLIA [id number] [address] [place] [id number] [facility] 04-25-2024 13:36-0500 Body mass index (BMI) [Ratio] 44.46 kg/m2 [facility] Work Phone: [facility] 04-25-2024 13:36-0500 Body temperature 97.81 [degF] [facility] Work Phone: [facility] 04-25-2024 13:36-0500 Body weight 131.54 kg [facility] Work Phone: [facility] 02-25-2025 13:36-0500 Diastolic blood pressure 75 mm[Hg] [facility] Work Phone: [facility] 04-25-2024 13:36-0500 Heart rate 93 /min [facility] Work Phone: [facility] 04-25-2024 13:36-0500 SaO2% (BldA) [Mass fraction] 98 % [facility] Work Phone: [facility] 04-25-2024 13:36-0500 Systolic blood pressure 132 mm[Hg] [facility] Work Phone: [facility] 04-19-2024 10:16-0500 Body height 172 cm Tatyana Click NETSUITE CONSULTANT.DIRECTOR MARKETING Work Phone: [facility] 04-19-2024 10:16-0500 Body mass index (BMI) [Ratio] 43.69 kg/m2 Tatyana Click NETSUITE CONSULTANT.DIRECTOR MARKETING Work Phone: [facility] 04-19-2024 10:16-0500 Body weight 129.28 kg Tatyana Click NETSUITE CONSULTANT.DIRECTOR MARKETING Work Phone: [facility] 04-19-2024 10:16-0500 Heart rate 86 /min Tatyana Click NETSUITE CONSULTANT.DIRECTOR MARKETING Work Phone: [facility] 04-19-2024 10:16-0500 Respiratory rate 16 /min Tatyana Click NETSUITE CONSULTANT.DIRECTOR MARKETING Work Phone: [facility] 04-19-2024 10:16-0500 SaO2% (BldA) [Mass fraction] 100 % Tatyana Click NETSUITE CONSULTANT.DIRECTOR MARKETING Work Phone: [facility] 04-19-2024 09:59-0500 Body height 172 cm Pulm [facility]str Work Phone: [facility] 04-19-2024 09:59-0500 Body mass index (BMI) [Ratio] 43.7 kg/m2 [facility] Work Phone: [facility] 04-19-2024 09:59-0500 Body weight 129.28 kg [facility] Work Phone: [facility] 04-19-2024 09:59-0500 Heart rate 86 /min [facility] Work Phone: [facility] 04-19-2024 09:59-0500 Respiratory rate 16 /min [facility] Work Phone: [facility] 04-19-2024 09:59-0500 SaO2% (BldA) [Mass fraction] 100 % [facility] Work Phone: [facility] Comment on above: RA resting 04-14-2024 15:07-0500 Body mass index (BMI) [Ratio] 44.01 kg/m2 Nora Masci DO Work Phone: [facility] 04-14-2024 15:07-0500 Body temperature 97.3 [degF] Nora Masci DO Work Phone: [facility] 04-14-2024 15:07-0500 Body weight 130.2 kg Nora Masci DO Work Phone: [facility] 04-14-2024 15:07-0500 Diastolic blood pressure 68 mm[Hg] Nora Masci DO Work Phone: [facility] 04-14-2024 15:07-0500 Heart rate 84 /min Nora Masci DO Work Phone: [facility] 04-14-2024 15:07-0500 SaO2% (BldA) [Mass fraction] 94 % Nora Masci DO Work Phone: [facility] Comment on above: 3 L/M 04-14-2024 15:07-0500 Systolic blood pressure 119 mm[Hg] Nora Masci DO Work Phone: [facility] 04-14-2024 14:58-0500 Body mass index (BMI) [Ratio] 44 kg/m2 [facility] Work Phone: [facility] 04-14-2024 14:58-0500 Body weight 130.18 kg [facility] Work Phone: [facility] 03-23-2024 10:00-0500 Body temperature 97 [degF] [facility] Work Phone: [facility] 03-23-2024 10:00-0500 Diastolic blood pressure 68 mm[Hg] [facility] Work Phone: [facility] 03-23-2024 10:00-0500 Heart rate 55 /min [facility] Work Phone: [facility] 03-23-2024 10:00-0500 SaO2% (BldA) [Mass fraction] 97 % [facility] Work Phone: [facility] 03-23-2024 10:00-0500 Systolic blood pressure 106 mm[Hg] [facility] Work Phone: [facility] 03-23-2024 09:00-0500 Body height 172 cm [facility] Work Phone: [facility] 03-23-2024 09:00-0500 Body mass index (BMI) [Ratio] 43.7 kg/m2 [facility] Work Phone: [facility] 03-23-2024 09:00-0500 Body weight 129.28 kg [facility] Work Phone: [facility] 03-15-2024 10:56-0500 Body mass index (BMI) [Ratio] 43.72 kg/m2 Nora [employer] DO Work Phone: [facility] 03-15-2024 10:56-0500 Body temperature 96.8 [degF] Nora [employer] Work Phone: [facility] 03-15-2024 10:56-0500 Body weight 129.28 kg Nora Masci DO Work Phone: [facility] 03-15-2024 10:56-0500 Diastolic blood pressure 71 mm[Hg] Nora [employer] DO Work Phone: [facility] 03-15-2024 10:56-0500 Heart rate 87 /min Nora [employer] Work Phone: [facility] 03-15-2024 10:56-0500 SaO2% (BldA) [Mass fraction] 95 % Nora [employer] Work Phone: [facility] Comment on above: 3L of O2 03-15-2024 10:56-0500 Systolic blood pressure 111 mm[Hg] Nora Branham DO Work Phone: [facility] 03-15-2024 10:43-0500 Body mass index (BMI) [Ratio] 43.72 kg/m2 [facility] Work Phone: [facility] 03-15-2024 10:43-0500 Body weight 129.28 kg [facility] Work Phone: [facility] 03-08-2024 10:00-0500 Body temperature 97.81 [degF] Patel Escalera MD Work Phone: [facility] 03-08-2024 10:00-0500 Diastolic blood pressure 72 mm[Hg] Patel Escalera MD Work Phone: [facility] 03-08-2024 10:00-0500 Heart rate 92 /min Patel Escalera MD Work Phone: [facility] 03-08-2024 10:00-0500 SaO2% (BldA) [Mass fraction] 90 % Patel Escalera MD Work Phone: [facility] Comment on above: O2 at 3L per NC, fingers also very cold 03-08-2024 10:00-0500 Systolic blood pressure 128 mm[Hg] Patel Escalera MD Work Phone: [facility] 02-09-2024 09:41-0500 Body mass index (BMI) [Ratio] 44.49 kg/m2 Patel Escalera MD Work Phone: [facility] 02-09-2024 09:41-0500 Body temperature 97.7 [degF] Patel Escalera MD Work Phone: [facility] 02-09-2024 09:41-0500 Body weight 131.54 kg Patel Escalera MD Work Phone: [facility] 02-09-2024 09:41-0500 Diastolic blood pressure 54 mm[Hg] Patel Escalera MD Work Phone: [facility] 02-09-2024 09:41-0500 Heart rate 79 /min Patel Escalera MD Work Phone: [facility] 02-09-2024 09:41-0500 SaO2% (BldA) [Mass fraction] 93 % Patel Escalera MD Work Phone: [facility] Comment on above: fingers cold, on 2 L O2 02-09-2024 09:41-0500 Systolic blood pressure 91 mm[Hg] Patel Escalera MD Work Phone: [facility] 02-02-2024 10:11-0500 Body mass index (BMI) [Ratio] 45.1 kg/m2 Tamara Mari NETSUITE CONSULTANT.DIRECTOR MARKETING Work Phone: [facility] 02-02-2024 10:11-0500 Body temperature 97.9 [degF] Tamara Mari NETSUITE CONSULTANT.DIRECTOR MARKETING Work Phone: [facility] 02-02-2024 10:11-0500 Body weight 133.36 kg Tamara Mari NETSUITE CONSULTANT.DIRECTOR MARKETING Work Phone: [facility] 02-02-2024 10:11-0500 Diastolic blood pressure 70 mm[Hg] Tamara Mari NETSUITE CONSULTANT.DIRECTOR MARKETING Work Phone: [facility] 02-02-2024 10:11-0500 Heart rate 89 /min Tamara Mari NETSUITE CONSULTANT.DIRECTOR MARKETING Work Phone: [facility] 02-02-2024 10:11-0500 SaO2% (BldA) [Mass fraction] 93 % Tamara Mari NETSUITE CONSULTANT.DIRECTOR MARKETING Work Phone: [facility] 02-02-2024 10:11-0500 Systolic blood pressure 110 mm[Hg] Tamara Mari NETSUITE CONSULTANT.DIRECTOR MARKETING Work Phone: [facility] 02-02-2024 09:51-0500 Body mass index (BMI) [Ratio] 45.1 kg/m2 Lab/Port Wstr Work Phone: [facility] 02-02-2024 09:51-0500 Body weight 133.36 kg Lab/Port Wstr Work Phone: [facility] 01-13-2024 11:03-0500 Body mass index (BMI) [Ratio] 44.64 kg/m2 Treatment Wstr Work Phone: [facility] 01-13-2024 11:03-0500 Body weight 132 kg Treatment Wstr Work Phone: [facility] 01-13-2024 11:03-0500 Diastolic blood pressure 85 mm[Hg] Treatment Wstr Work Phone: [facility] 01-13-2024 11:03-0500 Heart rate 85 /min Treatment Wstr Work Phone: [facility] 01-13-2024 11:03-0500 SaO2% (BldA) [Mass fraction] 95 % Treatment Wstr Work Phone: [facility] 01-13-2024 11:03-0500 Systolic blood pressure 144 mm[Hg] Treatment Wstr Work Phone: [facility] 01-05-2024 09:54-0500 Body mass index (BMI) [Ratio] 44.26 kg/m2 Tamara Mari NETSUITE CONSULTANT.DIRECTOR MARKETING Work Phone: [facility] 01-05-2024 09:54-0500 Body temperature 98.01 [degF] Tamara Mari NETSUITE CONSULTANT.DIRECTOR MARKETING Work Phone: [facility] 01-05-2024 09:54-0500 Body weight 130.86 kg Tamara Mari NETSUITE CONSULTANT.DIRECTOR MARKETING Work Phone: [facility] 01-05-2024 09:54-0500 Diastolic blood pressure 65 mm[Hg] Tamara Mari NETSUITE CONSULTANT.DIRECTOR MARKETING Work Phone: [facility] 01-05-2024 09:54-0500 Heart rate 94 /min Tamara Mari APRN.DIRECTOR MARKETING Work Phone: [facility] 01-05-2024 09:54-0500 SaO2% (BldA) [Mass fraction] 92 % Tamara Mari NETSUITE CONSULTANT.DIRECTOR MARKETING Work Phone: [facility] 01-05-2024 09:54-0500 Systolic blood pressure 98 mm[Hg] Tamara Mari NETSUITE CONSULTANT.DIRECTOR MARKETING Work Phone: [facility] 12-21-2023 12:33-0400 Diastolic blood pressure 76 mm[Hg] Pamela Nelson MD Work Phone: [facility] 12-21-2023 12:33-0400 Heart rate 83 /min Pamela Nelson MD Work Phone: [facility] 12-21-2023 12:33-0400 SaO2% (BldA) [Mass fraction] 90 % Pamela Nelson MD Work Phone: [facility] 12-21-2023 12:33-0400 Systolic blood pressure 118 mm[Hg] Pamela Nelson MD Work Phone: [facility] 12-16-2023 09:00-0400 Body temperature 97.5 [degF] Treatment Wstr Work Phone: [facility] 12-16-2023 09:00-0400 Diastolic blood pressure 56 mm[Hg] Treatment Wstr Work Phone: [facility] 12-16-2023 09:00-0400 Heart rate 87 /min Treatment Wstr Work Phone: [facility] 12-16-2023 09:00-0400 Systolic blood pressure 92 mm[Hg] Treatment Wstr Work Phone: [facility] 12-13-2023 12:24-0400 Diastolic blood pressure 59 mm[Hg] Maisha Edmonds Work Phone: [facility] 12-13-2023 12:24-0400 Systolic blood pressure 92 mm[Hg] Maisha Edmonds Work Phone: [facility] 12-13-2023 11:17-0400 Body mass index (BMI) [Ratio] 44.33 kg/m2 Maisha Edmonds Work Phone: [facility] 12-13-2023 11:17-0400 Body temperature 97.11 [degF] Maisha Edmonds Work Phone: [facility] 12-13-2023 11:17-0400 Body weight 131.09 kg Maisha Edmonds Work Phone: [facility] 12-13-2023 11:17-0400 Heart rate 75 /min Maishazia Edmonds Work Phone: [facility] 12-13-2023 11:17-0400 SaO2% (BldA) [Mass fraction] 93 % Maishazia Edmonds Work Phone: [facility] 12-13-2023 11:07-0400 Body mass index (BMI) [Ratio] 44.33 kg/m2 Lab/Port Wstr Work Phone: [facility] 12-13-2023 11:07-0400 Body weight 131.09 kg Lab/Port Wstr Work Phone: [facility] 11-24-2023 12:34-0400 Diastolic blood pressure 71 mm[Hg] Treatment Wstr Work Phone: [facility] 11-24-2023 12:34-0400 Heart rate 78 /min Treatment Wstr Work Phone: [facility] 11-24-2023 12:34-0400 Systolic blood pressure 115 mm[Hg] Treatment Wstr Work Phone: [facility] 11-24-2023 10:24-0400 Body mass index (BMI) [Ratio] 43.95 kg/m2 Treatment Wstr Work Phone: [facility] 11-24-2023 10:24-0400 Body temperature 97.2 [degF] Treatment Wstr Work Phone: [facility] 11-24-2023 10:24-0400 Body weight 129.96 kg Treatment Wstr Work Phone: [facility] 11-24-2023 10:24-0400 SaO2% (BldA) [Mass fraction] 97 % Treatment Wstr Work Phone: [facility] 11-19-2023 14:12-0400 Body mass index (BMI) [Ratio] 44.18 kg/m2 Nora Estradai DO Work Phone: [facility] 11-19-2023 14:12-0400 Body temperature 98.49 [degF] Nora Estradai DO Work Phone: [facility] 11-19-2023 14:12-0400 Body weight 130.64 kg Nora Estradai DO Work Phone: [facility] 11-19-2023 14:12-0400 Diastolic blood pressure 64 mm[Hg] Nora Estradai DO Work Phone: [facility] 11-19-2023 14:12-0400 Heart rate 79 /min Nora Estradai DO Work Phone: [facility] 11-19-2023 14:12-0400 SaO2% (BldA) [Mass fraction] 93 % Nora Estradai DO Work Phone: [facility] 11-19-2023 14:12-0400 Systolic blood pressure 123 mm[Hg] Nora Estradai DO Work Phone: [facility] 11-03-2023 10:11-0400 Body mass index (BMI) [Ratio] 43.29 kg/m2 Tamara Mari NETSUITE CONSULTANT.DIRECTOR MARKETING Work Phone: [facility] 11-03-2023 10:11-0400 Body temperature 97.11 [degF] Tamara Mari NETSUITE CONSULTANT.DIRECTOR MARKETING Work Phone: [facility] 11-03-2023 10:11-0400 Body weight 128 kg Tamara Mari NETSUITE CONSULTANT.DIRECTOR MARKETING Work Phone: [facility] 11-03-2023 10:11-0400 Diastolic blood pressure 59 mm[Hg] Tamara Mari NETSUITE CONSULTANT.DIRECTOR MARKETING Work Phone: [facility] 11-03-2023 10:11-0400 Heart rate 72 /min Tamara Mari NETSUITE CONSULTANT.DIRECTOR MARKETING Work Phone: [facility] 11-03-2023 10:11-0400 SaO2% (BldA) [Mass fraction] 90 % Tamara Mari NETSUITE CONSULTANT.DIRECTOR MARKETING Work Phone: [facility] 11-03-2023 10:11-0400 Systolic blood pressure 96 mm[Hg] Tamara Mari NETSUITE CONSULTANT.DIRECTOR MARKETING Work Phone: [facility] 09-15-2023 12:40-0400 Body mass index (BMI) [Ratio] 42.85 kg/m2 Go Araujo MD Work Phone: [facility] 09-15-2023 12:40-0400 Body weight 126.7 kg Go Araujo MD Work Phone: [facility] 09-15-2023 12:40-0400 Diastolic blood pressure 48 mm[Hg] Go Araujo MD Work Phone: [facility] 09-15-2023 12:40-0400 Heart rate 62 /min Go Araujo MD Work Phone: [facility] 09-15-2023 12:40-0400 SaO2% (BldA) [Mass fraction] 92 % Go Araujo MD Work Phone: [facility] 09-15-2023 12:40-0400 Systolic blood pressure 85 mm[Hg] Go oBlanos Work Phone: [facility] 09-10-2023 09:21-0400 Body mass index (BMI) [Ratio] 28.07 kg/m2 Billie Hwang NETSUITE CONSULTANT.DIRECTOR MARKETING Work Phone: [facility] 09-10-2023 09:21-0400 Body weight 83.01 kg Billie Hwang NETSUITE CONSULTANT.DIRECTOR MARKETING Work Phone: [facility] 09-10-2023 09:21-0400 Diastolic blood pressure 60 mm[Hg] Billie Hwang NETSUITE CONSULTANT.DIRECTOR MARKETING Work Phone: [facility] 09-10-2023 09:21-0400 Heart rate 83 /min Billie Hwang NETSUITE CONSULTANT.DIRECTOR MARKETING Work Phone: [facility] 09-10-2023 09:21-0400 Respiratory rate 16 /min Billie Aquinohof NETSUITE CONSULTANT.DIRECTOR MARKETING Work Phone: [facility] 09-10-2023 09:21-0400 SaO2% (BldA) [Mass fraction] 95 % Billie Aquinohof NETSUITE CONSULTANT.DIRECTOR MARKETING Work Phone: [facility] Comment on above: On O2 at 2.5 L 09-10-2023 09:21-0400 Systolic blood pressure 102 mm[Hg] Billie Aquinohof NETSUITE CONSULTANT.DIRECTOR MARKETING Work Phone: [facility] 09-01-2023 09:41-0400 SaO2% (BldA) [Mass fraction] 92 % [facility] Comment on above: Order Comment: Specimen Type: ARTERIAL B LOOD SPECIMENOrdering Facility: [facility] Address: [address] [place] [address] Performed By: #### A LLBG ####[facility] RESPIRATORYCLIA [id number] [id number] [place] [id number] 08-24-2023 14:29-0400 Diastolic blood pressure 82 mm[Hg] Vinh Van MD Work Phone: [facility] 08-24-2023 14:29-0400 Systolic blood pressure 142 mm[Hg] Vinh Van MD Work Phone: [facility] 08-24-2023 14:26-0400 Body mass index (BMI) [Ratio] 45.7 kg/m2 Vinh Van MD Work Phone: [facility] 08-24-2023 14:26-0400 Body weight 132.36 kg Vinh Van MD Work Phone: [facility] 08-24-2023 14:26-0400 Heart rate 80 /min Vinh Van MD Work Phone: [facility] 08-24-2023 14:26-0400 Respiratory rate 18 /min Vinh Van MD Work Phone: [facility] 08-24-2023 08:41-0400 Body mass index (BMI) [Ratio] 45.5 kg/m2 Nora Masci DO Work Phone: [facility] 08-24-2023 08:41-0400 Body temperature 97.9 [degF] Nora Masci DO Work Phone: [facility] 08-24-2023 08:41-0400 Body weight 131.77 kg Nora Masci DO Work Phone: [facility] 08-24-2023 08:41-0400 Diastolic blood pressure 72 mm[Hg] Nora Masci DO Work Phone: [facility] 08-24-2023 08:41-0400 Heart rate 82 /min Nora Masci DO Work Phone: [facility] 08-24-2023 08:41-0400 SaO2% (BldA) [Mass fraction] 91 % Nora Masci DO Work Phone: [facility] 08-24-2023 08:41-0400 Systolic blood pressure 136 mm[Hg] Nora Masci DO Work Phone: [facility] 06-18-2023 11:46-0400 Body weight 118.39 kg Mri (I-Stat/1.5t) [facility] 06-18-2023 11:46-0400 Diastolic blood pressure 93 mm[Hg] Mri (I-Stat/1.5t) [facility] 06-18-2023 11:46-0400 Heart rate 88 /min Mri (I-Stat/1.5t) [facility] 06-18-2023 11:46-0400 Systolic blood pressure 159 mm[Hg] Mri (I-Stat/1.5t) [facility] 06-08-2023 10:21-0400 Body temperature 98.1 [degF] Nora Masci DO Work Phone: [facility] 06-08-2023 10:21-0400 Body weight 127.69 kg Nora Masci DO Work Phone: [facility] 06-08-2023 10:21-0400 Diastolic blood pressure 77 mm[Hg] Nora Masci DO Work Phone: [facility] 06-08-2023 10:21-0400 Heart rate 92 /min Nora Estradai DO Work Phone: [facility] 06-08-2023 10:21-0400 SaO2% (BldA) [Mass fraction] 91 % Nora Branham DO Work Phone: [facility] 06-08-2023 10:21-0400 Systolic blood pressure 118 mm[Hg] Nora Branham DO Work Phone: [facility] 06-08-2023 10:10-0400 Body weight 127.69 kg Lab/Port Wstr Work Phone: [facility] 04-12-2023 13:25-0500 Body temperature 98 [degF] Dr. Vinh Van Work Phone: [facility] 04-12-2023 13:25-0500 Diastolic blood pressure 72 mm[Hg] Dr. Vinh Van Work Phone: [facility] 04-12-2023 13:25-0500 Heart rate 92 /min Dr. Vinh Van Work Phone: [facility] 04-12-2023 13:25-0500 Respiratory rate 17 /min Dr. Vinh Van Work Phone: [facility] 04-12-2023 13:25-0500 SaO2% (BldA) [Mass fraction] 93 % Dr. Vinh Van Work Phone: [facility] 04-12-2023 13:25-0500 Systolic blood pressure 152 mm[Hg] Dr. Vinh Van Work Phone: [facility] 04-12-2023 07:58-0500 Inhaled oxygen flow rate 2 L/min Dr. Vinh Van Work Phone: [facility] 04-12-2023 04:16-0500 Body mass index (BMI) [Ratio] 42.3 kg/m2 Dr. Vinh Van Work Phone: 2(453)485-201253 [place] [address] 04-12-2023 04:16-0500 Body weight 122.[address] Vinh Van Work Phone: 8(280)304-139353 [place] [address] 04-10-2023 23:52-0500 Body height 170.[address] Vinh Van Work Phone: 0(277)602-916153 [place] [address] 04-10-2023 22:29-0500 Diastolic blood pressure 63 mm[Hg] Dr. Vinh Van Work Phone: 2(603)658-038953 [place] [address] 04-10-2023 22:29-0500 Heart rate 87 /min Dr. Vinh Van Work Phone: 9(020)361-742753 [place] [address] 04-10-2023 22:29-0500 Respiratory rate 18 /min Dr. Vinh Vna Work Phone: 4(847)032-801753 [place] [address] 04-10-2023 22:29-0500 SaO2% (BldA) [Mass fraction] 94 % Dr. Vinh Van Work Phone: 5(468)844-126753 [place] [address] 04-10-2023 22:29-0500 Systolic blood pressure 128 mm[Hg] Dr. Vinh Van Work Phone: 3(299)638-676253 [place] [address] 04-10-2023 22:03-0500 Body temperature 97.2 [degF] Dr. Vinh Van Work Phone: 6(978)810-573053 [place] [address] 04-10-2023 22:03-0500 Inhaled oxygen flow rate 2 L/min Dr. Vinh Van Work Phone: 7(565)326-119253 [place] [address] 04-10-2023 18:18-0500 Body mass index (BMI) [Ratio] 41.5 kg/m2 Dr. Vinh Van Work Phone: 4(762)042-419753 [place] [address] 04-10-2023 18:18-0500 Body weight 120.[address] Vinh Van Work Phone: 5(621)680-144153 [place] [address] 04-10-2023 14:41-0500 Body height 170.[address] Vinh Van Work Phone: 2(608)965-094553 [place] [address] 04-07-2023 10:24-0500 Body temperature 96.8 [degF] Treatment Wstr Work Phone: [facility] 04-07-2023 10:24-0500 Diastolic blood pressure 77 mm[Hg] Treatment Wstr Work Phone: [facility] 04-07-2023 10:24-0500 Heart rate 56 /min Treatment Wstr Work Phone: [facility] 04-07-2023 10:24-0500 SaO2% (BldA) [Mass fraction] 96 % Treatment Wstr Work Phone: [facility] 04-07-2023 10:24-0500 Systolic blood pressure 123 mm[Hg] Treatment Wstr Work Phone: [facility] 04-02-2023 16:09-0500 Body height 170.2 cm Farshad Marie MD Work Phone: [facility] 04-02-2023 16:09-0500 Body weight 120.2 kg Farshad Marie MD Work Phone: [facility] 04-02-2023 16:09-0500 Diastolic blood pressure 72 mm[Hg] Farshad Marie MD Work Phone: [facility] 04-02-2023 16:09-0500 Heart rate 90 /min Farshad Marie MD Work Phone: [facility] 04-02-2023 16:09-0500 SaO2% (BldA) [Mass fraction] 93 % Farshad Marie MD Work Phone: [facility] 04-02-2023 16:09-0500 Systolic blood pressure 112 mm[Hg] Farshad Marie MD Work Phone: [facility] 03-16-2023 09:00-0500 Body mass index (BMI) [Ratio] 42.76 kg/m2 Lab/Port Wstr Work Phone: [facility] 03-16-2023 09:00-0500 Body weight 123.83 kg Lab/Port Wstr Work Phone: [facility] 03-12-2023 14:04-0500 Body temperature 96.5 [degF] Dr. Vinh Van Work Phone: [facility] 03-12-2023 14:04-0500 Diastolic blood pressure 94 mm[Hg] Dr. Vinh Van Work Phone: [facility] 03-12-2023 14:04-0500 Heart rate 85 /min Dr. Vinh Van Work Phone: [facility] 03-12-2023 14:04-0500 Respiratory rate 16 /min Dr. Vinh Van Work Phone: [facility] 03-12-2023 14:04-0500 SaO2% (BldA) [Mass fraction] 96 % Dr. Vinh Van Work Phone: 4(102)783-754968 [place] [address] 03-12-2023 14:04-0500 Systolic blood pressure 114 mm[Hg] Dr. Vinh Van Work Phone: 9(895)743-951723 [place] [address] 03-12-2023 05:40-0500 Body mass index (BMI) [Ratio] 42.6 kg/m2 Dr. Vinh Van Work Phone: [facility] 03-12-2023 05:40-0500 Body weight 123.[address] Vinh Van Work Phone: [facility] 03-11-2023 12:04-0500 Body height 170.[address] Vinh Van Work Phone: [facility] 03-10-2023 18:37-0500 Body temperature 97.8 [degF] Dr. Vinh Van Work Phone: [facility] 03-10-2023 18:37-0500 Diastolic blood pressure 69 mm[Hg] Dr. Vinh Van Work Phone: [facility] 03-10-2023 18:37-0500 Heart rate 83 /min Dr. Vinh Van Work Phone: 9(081)435-307453 [place] [address] 03-10-2023 18:37-0500 Respiratory rate 20 /min Dr. Vinh Van Work Phone: 6(405)584-414153 [place] [address] 03-10-2023 18:37-0500 Systolic blood pressure 139 mm[Hg] Dr. Vinh Van Work Phone: 7(378)079-948953 [place] [address] 03-10-2023 18:27-0500 Body height 170.[address] Vinh Van Work Phone: 7(614)718-615153 [place] [address] 03-10-2023 18:27-0500 Body mass index (BMI) [Ratio] 42.5 kg/m2 Dr. Vinh Van Work Phone: 3(333)227-772853 [place] [address] 03-10-2023 18:27-0500 Body weight 123.[address] Vinh Van Work Phone: 7(340)660-417353 [place] [address] 03-10-2023 17:33-0500 SaO2% (BldA) [Mass fraction] 96 % Dr. Vinh Van Work Phone: 7(765)735-691353 [place] [address] 03-10-2023 13:57-0500 Body mass index (BMI) [Ratio] 41.3 kg/m2 Dr. Vinh Van Work Phone: 4(119)675-033753 [place] [address] 03-10-2023 13:57-0500 Body weight 123.[address] Vinh Van Work Phone: 4(503)252-271453 [place] [address] 03-10-2023 13:57-0500 Diastolic blood pressure 58 mm[Hg] Dr. Vinh Van Work Phone: 6(055)410-138453 [place] [address] 03-10-2023 13:57-0500 Heart rate 72 /min Dr. Vinh Van Work Phone: 9(458)015-036753 [place] [address] 03-10-2023 13:57-0500 Respiratory rate 16 /min Dr. Vinh Van Work Phone: 4(894)444-753853 [place] [address] 03-10-2023 13:57-0500 Systolic blood pressure 76 mm[Hg] Dr. Vinh Van Work Phone: 9(400)461-985653 [place] [address] 02-18-2023 08:01-0500 Body temperature 97.5 [degF] Nora Masci DO Work Phone: [facility] 02-18-2023 08:01-0500 Body weight 125.42 kg Nora Masci DO Work Phone: [facility] 02-18-2023 08:01-0500 Diastolic blood pressure 64 mm[Hg] Nora Masci DO Work Phone: [facility] 02-18-2023 08:01-0500 Heart rate 88 /min Nora Masci DO Work Phone: [facility] 02-18-2023 08:01-0500 SaO2% (BldA) [Mass fraction] 93 % Nora Masci DO Work Phone: [facility] 02-18-2023 08:01-0500 Systolic blood pressure 105 mm[Hg] Nora Masci DO Work Phone: [facility] 02-18-2023 07:51-0500 Body weight 124.97 kg Lab/Port Wstr Work Phone: [facility] 02-02-2023 09:29-0500 Body temperature 97.5 [degF] Nora Masci DO Work Phone: [facility] 02-02-2023 09:29-0500 Body weight 125.42 kg Nora Masci DO Work Phone: [facility] 02-02-2023 09:29-0500 Diastolic blood pressure 64 mm[Hg] Nora Masci DO Work Phone: [facility] 02-02-2023 09:29-0500 Heart rate 73 /min Nora Masci DO Work Phone: [facility] 02-02-2023 09:29-0500 SaO2% (BldA) [Mass fraction] 93 % Nora Masci DO Work Phone: [facility] 02-02-2023 09:29-0500 Systolic blood pressure 99 mm[Hg] Nora Masci DO Work Phone: [facility] 02-02-2023 09:21-0500 Body weight 125.42 kg Lab/Port Wstr Work Phone: [facility] 01-26-2023 14:36-0500 Body temperature 99 [degF] Dr. Vinh Van Work Phone: [facility] 01-26-2023 14:36-0500 Diastolic blood pressure 70 mm[Hg] Dr. Vinh Van Work Phone: [facility] 01-26-2023 14:36-0500 Heart rate 89 /min Dr. Vinh Van Work Phone: 7(155)702-288123 [place] [address] 01-26-2023 14:36-0500 Respiratory rate 18 /min Dr. Vinh Van Work Phone: [facility] 01-26-2023 14:36-0500 SaO2% (BldA) [Mass fraction] 92 % Dr. Vinh Van Work Phone: [facility] 01-26-2023 14:36-0500 Systolic blood pressure 113 mm[Hg] Dr. Vinh Van Work Phone: 0(714)012-924623 [place] [address] 01-25-2023 13:14-0500 Body height 172.[address] Vinh Van Work Phone: [facility] 01-25-2023 13:14-0500 Body weight 124.[address] Vinh Van Work Phone: [facility] 01-25-2023 02:37-0500 Inhaled oxygen flow rate 2 L/min Dr. Vinh Van Work Phone: [facility] 01-24-2023 18:58-0500 Body height 172.[address] Vinh Van Work Phone: [facility] 01-24-2023 18:58-0500 Body mass index (BMI) [Ratio] 41.8 kg/m2 Dr. Vinh Van Work Phone: [facility] 01-24-2023 18:58-0500 Body weight 124.[address] Vinh Van Work Phone: [facility] 01-24-2023 17:00-0500 Body temperature 98.1 [degF] Dr. Vinh Van Work Phone: [facility] 01-24-2023 17:00-0500 Diastolic blood pressure 61 mm[Hg] Dr. Vnih Van Work Phone: [facility] 01-24-2023 17:00-0500 Heart rate 89 /min Dr. Vinh Van Work Phone: [facility] 01-24-2023 17:00-0500 Respiratory rate 18 /min Dr. Vinh Van Work Phone: [facility] 01-24-2023 17:00-0500 SaO2% (BldA) [Mass fraction] 92 % Dr. Vinh Van Work Phone: [facility] 01-24-2023 17:00-0500 Systolic blood pressure 126 mm[Hg] Dr. Vinh Van Work Phone: [facility] 01-24-2023 15:22-0500 Inhaled oxygen flow rate 2 L/min Dr. Vinh Van Work Phone: [facility] 01-13-2023 07:41-0500 Body temperature 97.11 [degF] Treatment Wstr Work Phone: [facility] 01-13-2023 07:41-0500 Diastolic blood pressure 81 mm[Hg] Treatment Wstr Work Phone: [facility] 01-13-2023 07:41-0500 Heart rate 103 /min Treatment Wstr Work Phone: [facility] 01-13-2023 07:41-0500 SaO2% (BldA) [Mass fraction] 93 % Treatment Wstr Work Phone: [facility] 01-13-2023 07:41-0500 Systolic blood pressure 122 mm[Hg] Treatment Wstr Work Phone: [facility] 01-12-2023 08:46-0500 Body temperature 97 [degF] Nora Estradai DO Work Phone: [facility] 01-12-2023 08:46-0500 Body weight 125.65 kg Nora Masci DO Work Phone: [facility] 01-12-2023 08:46-0500 Diastolic blood pressure 69 mm[Hg] Nora Masci DO Work Phone: [facility] 01-12-2023 08:46-0500 Heart rate 81 /min Nora Nataliei DO Work Phone: [facility] 01-12-2023 08:46-0500 SaO2% (BldA) [Mass fraction] 99 % Nora Estradai DO Work Phone: [facility] 01-12-2023 08:46-0500 Systolic blood pressure 110 mm[Hg] Nora Estradai DO Work Phone: [facility] 01-12-2023 08:35-0500 Body weight 125.65 kg Lab/Port Wstr Work Phone: [facility] 01-07-2023 13:42-0500 Body temperature 97.7 [degF] Rosanne Díaz MD Work Phone: [facility] 01-07-2023 13:42-0500 Body weight 125.65 kg Rosanne Díaz MD Work Phone: [facility] 01-07-2023 13:42-0500 Diastolic blood pressure 58 mm[Hg] Rosanne Díaz MD Work Phone: [facility] 01-07-2023 13:42-0500 Heart rate 93 /min Rosanne Díaz MD Work Phone: [facility] 01-07-2023 13:42-0500 Respiratory rate 18 /min Rosanne Díaz MD Work Phone: [facility] 01-07-2023 13:42-0500 SaO2% (BldA) [Mass fraction] 95 % Rosanne Díaz MD Work Phone: [facility] 01-07-2023 13:42-0500 Systolic blood pressure 101 mm[Hg] Rosanne Bolanos Work Phone: [facility] 12-30-2022 12:31-0400 Body temperature 97.7 [degF] Memo Leigh MD Work Phone: [facility] 12-30-2022 12:31-0400 Body weight 125.83 kg Memo Leigh MD Work Phone: [facility] 12-30-2022 12:31-0400 Diastolic blood pressure 67 mm[Hg] Memo Bolanos Work Phone: [facility] 12-30-2022 12:31-0400 Heart rate 92 /min Memo Leigh MD Work Phone: [facility] 12-30-2022 12:31-0400 SaO2% (BldA) [Mass fraction] 94 % Memo Leigh MD Work Phone: [facility] 12-30-2022 12:31-0400 Systolic blood pressure 98 mm[Hg] Memo Leigh MD Work Phone: [facility] 12-29-2022 10:23-0400 Body mass index (BMI) [Ratio] 41.8 kg/m2 Dr. Vinh Van Work Phone: [facility] 12-29-2022 10:23-0400 Body weight 124.[address] Vinh Van Work Phone: [facility] 12-29-2022 10:23-0400 Diastolic blood pressure 68 mm[Hg] Dr. Vinh Van Work Phone: [facility] 12-29-2022 10:23-0400 Heart rate 102 /min Dr. Vinh Van Work Phone: [facility] 12-29-2022 10:23-0400 Respiratory rate 18 /min Dr. Vinh Van Work Phone: [facility] 12-29-2022 10:23-0400 SaO2% (BldA) [Mass fraction] 95 % Dr. Vinh Van Work Phone: [facility] 12-29-2022 10:23-0400 Systolic blood pressure 138 mm[Hg] Dr. Vinh Van Work Phone: [facility] 12-23-2022 09:45-0400 Diastolic blood pressure 67 mm[Hg] Lab/Port Wstr Work Phone: [facility] 12-23-2022 09:45-0400 Heart rate 62 /min Lab/Port Wstr Work Phone: [facility] 12-23-2022 09:45-0400 SaO2% (BldA) [Mass fraction] 95 % Lab/Port Wstr Work Phone: [facility] 12-23-2022 09:45-0400 Systolic blood pressure 101 mm[Hg] Lab/Port Wstr Work Phone: [facility] 12-22-2022 09:51-0400 Body temperature 97.9 [degF] Treatment Wstr Work Phone: [facility] 12-22-2022 09:51-0400 Diastolic blood pressure 65 mm[Hg] Treatment Wstr Work Phone: [facility] 12-22-2022 09:51-0400 Heart rate 101 /min Treatment Wstr Work Phone: [facility] 12-22-2022 09:51-0400 Respiratory rate 20 /min Treatment Wstr Work Phone: [facility] 12-22-2022 09:51-0400 Systolic blood pressure 116 mm[Hg] Treatment Wstr Work Phone: [facility] 12-22-2022 08:40-0400 Body temperature 96.8 [degF] Nora Branham DO Work Phone: [facility] 12-22-2022 08:40-0400 Body weight 123.83 kg Lab/Port Wstr Work Phone: [facility] 12-22-2022 08:40-0400 Diastolic blood pressure 56 mm[Hg] Nora Masci DO Work Phone: [facility] 12-22-2022 08:40-0400 Heart rate 100 /min Nora Masci DO Work Phone: [facility] 12-22-2022 08:40-0400 SaO2% (BldA) [Mass fraction] 93 % Nora Masci DO Work Phone: [facility] 12-22-2022 08:40-0400 Systolic blood pressure 83 mm[Hg] Nora Masci DO Work Phone: [facility] 12-15-2022 09:52-0400 Body temperature 97 [degF] Nora Masci DO Work Phone: [facility] 12-15-2022 09:52-0400 Body weight 127.01 kg Lab/Port Wstr Work Phone: [facility] 12-15-2022 09:52-0400 Diastolic blood pressure 59 mm[Hg] Nora Masci DO Work Phone: [facility] 12-15-2022 09:52-0400 Heart rate 99 /min Nora Masci DO Work Phone: [facility] 12-15-2022 09:52-0400 SaO2% (BldA) [Mass fraction] 95 % Onra Masci DO Work Phone: [facility] 12-15-2022 09:52-0400 Systolic blood pressure 82 mm[Hg] Nora Masci DO Work Phone: [facility] 12-04-2022 09:19-0400 Body temperature 97.81 [degF] Hood [place] PA-C Work Phone: [facility] 12-04-2022 09:19-0400 Diastolic blood pressure 88 mm[Hg] Hood Dash Point PA- C Work Phone: [facility] 12-04-2022 09:19-0400 Heart rate 102 /min Hood Donna PA-C Work Phone: [facility] 12-04-2022 09:19-0400 SaO2% (BldA) [Mass fraction] 98 % Hood Thompson PA-C Work Phone: [facility] 12-04-2022 09:19-0400 Systolic blood pressure 142 mm[Hg] Hood Thompson PA-C Work Phone: [facility] 11-25-2022 09:13-0400 Heart rate 93 /min Almaz Horta MD Work Phone: [facility] 11-25-2022 09:13-0400 SaO2% (BldA) [Mass fraction] 95 % Almaz Horta MD Work Phone: [facility] 11-25-2022 09:03-0400 Diastolic blood pressure 79 mm[Hg] Almaz Horta MD Work Phone: [facility] 11-25-2022 09:03-0400 Systolic blood pressure 154 mm[Hg] Almaz Horta MD Work Phone: [facility] 11-25-2022 07:35-0400 Body temperature 96.3 [degF] Almaz Horta MD Work Phone: [facility] 11-25-2022 07:35-0400 Respiratory rate 16 /min Almaz Horta MD Work Phone: [facility] 11-11-2022 08:22-0400 Body temperature 97.39 [degF] Treatment Wstr Work Phone: [facility] 11-11-2022 08:22-0400 Body weight 129.28 kg Treatment Wstr Work Phone: [facility] 11-11-2022 08:22-0400 Diastolic blood pressure 85 mm[Hg] Treatment Wstr Work Phone: [facility] 11-11-2022 08:22-0400 Heart rate 111 /min Treatment Wstr Work Phone: [facility] 11-11-2022 08:22-0400 Respiratory rate 22 /min Treatment Wstr Work Phone: [facility] 11-11-2022 08:22-0400 Systolic blood pressure 130 mm[Hg] Treatment Wstr Work Phone: [facility] 11-05-2022 14:50-0400 Body height 170.2 cm Hood Donna PA-C Work Phone: [facility] 11-05-2022 14:50-0400 Body temperature 97.5 [degF] Hood Donna PA-C Work Phone: [facility] 11-05-2022 14:50-0400 Body weight 131.91 kg Hood [place] PA-C Work Phone: [facility] 11-05-2022 14:50-0400 Diastolic blood pressure 76 mm[Hg] Hood Dash Point PA- C Work Phone: [facility] 11-05-2022 14:50-0400 Heart rate 106 /min Hood Dash [place] PA-C Work Phone: [facility] 11-05-2022 14:50-0400 SaO2% (BldA) [Mass fraction] 94 % Hood Dash Point PA-C Work Phone: [facility] 11-05-2022 14:50-0400 Systolic blood pressure 130 mm[Hg] Hood Donna PA-C Work Phone: [facility] 11-03-2022 10:35-0400 Body temperature 97.3 [degF] Nora Masci DO Work Phone: [facility] 11-03-2022 10:35-0400 Body weight 132 kg Nora Masci DO Work Phone: [facility] 11-03-2022 10:35-0400 Diastolic blood pressure 83 mm[Hg] Nora Masci DO Work Phone: [facility] 11-03-2022 10:35-0400 Heart rate 98 /min Nora Masci DO Work Phone: [facility] 11-03-2022 10:35-0400 SaO2% (BldA) [Mass fraction] 93 % Nora Masci DO Work Phone: [facility] 11-03-2022 10:35-0400 Systolic blood pressure 123 mm[Hg] Nora Masci DO Work Phone: [facility] 11-03-2022 10:25-0400 Body weight 132 kg Lab/Port Wstr Work Phone: [facility] 10-14-2022 08:28-0400 Body temperature 97.2 [degF] Treatment Wstr Work Phone: [facility] 10-14-2022 08:28-0400 Diastolic blood pressure 92 mm[Hg] Treatment Wstr Work Phone: [facility] 10-14-2022 08:28-0400 Heart rate 105 /min Treatment Wstr Work Phone: [facility] 10-14-2022 08:28-0400 Respiratory rate 20 /min Treatment Wstr Work Phone: [facility] 10-14-2022 08:28-0400 SaO2% (BldA) [Mass fraction] 97 % Treatment Wstr Work Phone: [facility] 10-14-2022 08:28-0400 Systolic blood pressure 159 mm[Hg] Treatment Wstr Work Phone: [facility] 10-13-2022 15:50-0400 Body temperature 97.39 [degF] Nora Masci DO Work Phone: [facility] 10-13-2022 15:50-0400 Body weight 131.32 kg Nora Masci DO Work Phone: [facility] 10-13-2022 15:50-0400 Diastolic blood pressure 92 mm[Hg] Nora Masci DO Work Phone: [facility] 10-13-2022 15:50-0400 Heart rate 99 /min Nora Masci DO Work Phone: [facility] 10-13-2022 15:50-0400 SaO2% (BldA) [Mass fraction] 96 % Nora Masci DO Work Phone: [facility] 10-13-2022 15:50-0400 Systolic blood pressure 137 mm[Hg] Nora Branham DO Work Phone: [facility] 09-24-2022 08:00-0400 Body temperature 97 [degF] Treatment Wstr Work Phone: [facility] 09-24-2022 08:00-0400 Diastolic blood pressure 87 mm[Hg] Treatment Wstr Work Phone: [facility] 09-24-2022 08:00-0400 Heart rate 96 /min Treatment Wstr Work Phone: [facility] 09-24-2022 08:00-0400 Systolic blood pressure 148 mm[Hg] Treatment Wstr Work Phone: [facility] 09-03-2022 10:56-0400 Diastolic blood pressure 91 mm[Hg] Treatment Wstr Work Phone: [facility] 09-03-2022 10:56-0400 Heart rate 96 /min Treatment Wstr Work Phone: [facility] 09-03-2022 10:56-0400 Respiratory rate 18 /min Treatment Wstr Work Phone: [facility] 09-03-2022 10:56-0400 Systolic blood pressure 165 mm[Hg] Treatment Wstr Work Phone: [facility] 09-03-2022 08:00-0400 Body temperature 97 [degF] Treatment Wstr Work Phone: [facility] 09-03-2022 08:00-0400 Body weight 130.41 kg Treatment Wstr Work Phone: [facility] 09-03-2022 08:00-0400 SaO2% (BldA) [Mass fraction] 93 % Treatment Wstr Work Phone: [facility] 08-19-2022 14:23-0400 Body height 172.7 cm Almaz Horta MD Work Phone: [facility] 08-19-2022 14:23-0400 Body temperature 97.81 [degF] Almaz Horta MD Work Phone: [facility] 08-19-2022 14:23-0400 Body weight 130.82 kg Almaz Horta MD Work Phone: [facility] 08-19-2022 14:23-0400 Diastolic blood pressure 70 mm[Hg] Almaz Horta MD Work Phone: [facility] 08-19-2022 14:23-0400 Heart rate 107 /min Almaz Horta MD Work Phone: [facility] 08-19-2022 14:23-0400 SaO2% (BldA) [Mass fraction] 94 % Almaz Horta MD Work Phone: [facility] 08-19-2022 14:23-0400 Systolic blood pressure 138 mm[Hg] Almaz Horta MD Work Phone: [facility] 08-14-2022 13:18-0400 Body height 172.7 cm Nora Masci DO Work Phone: [facility] 08-14-2022 13:18-0400 Body temperature 97.3 [degF] Nora Masci DO Work Phone: [facility] 08-14-2022 13:18-0400 Body weight 130.86 kg Nora Masci DO Work Phone: [facility] 08-14-2022 13:18-0400 Diastolic blood pressure 72 mm[Hg] Nroa Masci DO Work Phone: [facility] 08-14-2022 13:18-0400 Heart rate 91 /min Nora Masci DO Work Phone: [facility] 08-14-2022 13:18-0400 SaO2% (BldA) [Mass fraction] 97 % Nora Masci DO Work Phone: [facility] 08-14-2022 13:18-0400 Systolic blood pressure 130 mm[Hg] Nora Masci DO Work Phone: [facility] 08-12-2022 13:28-0400 Body temperature 98.91 [degF] Memo Leigh MD Work Phone: [facility] 08-12-2022 13:28-0400 Body weight 129.73 kg Memo Leigh MD Work Phone: [facility] 08-12-2022 13:28-0400 Diastolic blood pressure 61 mm[Hg] Memo Bolanos Work Phone: [facility] 08-12-2022 13:28-0400 Heart rate 98 /min Memo Leigh MD Work Phone: [facility] 08-12-2022 13:28-0400 SaO2% (BldA) [Mass fraction] 93 % Memo Leigh MD Work Phone: [facility] 08-12-2022 13:28-0400 Systolic blood pressure 126 mm[Hg] Memo Leigh MD Work Phone: [facility] 06-30-2022 10:59-0400 Body weight 133.81 kg Mukesh Khan MD Work Phone: [facility] 06-30-2022 10:59-0400 Diastolic blood pressure 70 mm[Hg] Mukesh Khan MD Work Phone: [facility] 06-30-2022 10:59-0400 Systolic blood pressure 130 mm[Hg] Mukesh Khan MD Work Phone: [facility] 06-05-2022 10:22-0400 Body weight 131.09 kg Billie Tannhof NETSUITE CONSULTANT.DIRECTOR MARKETING Work Phone: [facility] 06-05-2022 10:22-0400 Diastolic blood pressure 70 mm[Hg] Billie Tannhof NETSUITE CONSULTANT.DIRECTOR MARKETING Work Phone: [facility] 06-05-2022 10:22-0400 Heart rate 115 /min Billie Tannhof NETSUITE CONSULTANT.DIRECTOR MARKETING Work Phone: [facility] 06-05-2022 10:22-0400 Respiratory rate 20 /min Billie Tannhof NETSUITE CONSULTANT.DIRECTOR MARKETING Work Phone: [facility] 06-05-2022 10:22-0400 SaO2% (BldA) [Mass fraction] 95 % Billie Tannhof NETSUITE CONSULTANT.DIRECTOR MARKETING Work Phone: [facility] 06-05-2022 10:22-0400 Systolic blood pressure 122 mm[Hg] Billie Tannhof NETSUITE CONSULTANT.DIRECTOR MARKETING Work Phone: [facility] 04-09-2022 13:23-0500 Body weight 134.26 kg Billie Tannhof NETSUITE CONSULTANT.DIRECTOR MARKETING Work Phone: [facility] 04-09-2022 13:23-0500 Diastolic blood pressure 80 mm[Hg] Billie Tannhof NETSUITE CONSULTANT.DIRECTOR MARKETING Work Phone: [facility] 04-09-2022 13:23-0500 Heart rate 76 /min Billie Tannhof NETSUITE CONSULTANT.DIRECTOR MARKETING Work Phone: [facility] 04-09-2022 13:23-0500 Respiratory rate 20 /min Blilie Tannhof NETSUITE CONSULTANT.DIRECTOR MARKETING Work Phone: [facility] 04-09-2022 13:23-0500 SaO2% (BldA) [Mass fraction] 95 % Billie Tannhof NETSUITE CONSULTANT.DIRECTOR MARKETING Work Phone: [facility] 04-09-2022 13:23-0500 Systolic blood pressure 130 mm[Hg] Billie Tannhof NETSUITE CONSULTANT.DIRECTOR MARKETING Work Phone: [facility] 12-29-2021 09:25-0400 Body weight 131.54 kg Billie Tannhof NETSUITE CONSULTANT.DIRECTOR MARKETING Work Phone: [facility] 12-29-2021 09:25-0400 Diastolic blood pressure 98 mm[Hg] Billie Tannhof NETSUITE CONSULTANT.DIRECTOR MARKETING Work Phone: [facility] 12-29-2021 09:25-0400 Heart rate 88 /min Billie Tannhof NETSUITE CONSULTANT.DIRECTOR MARKETING Work Phone: [facility] 12-29-2021 09:25-0400 Respiratory rate 16 /min Billie Tannhof NETSUITE CONSULTANT.DIRECTOR MARKETING Work Phone: [facility] 12-29-2021 09:25-0400 SaO2% (BldA) [Mass fraction] 96 % Billie Salvadorf NETSUITE CONSULTANT.DIRECTOR MARKETING Work Phone: [facility] 12-29-2021 09:25-0400 Systolic blood pressure 130 mm[Hg] Billie Salvadorf NETSUITE CONSULTANT.DIRECTOR MARKETING Work Phone: [facility] 12-02-2021 08:59-0400 Diastolic blood pressure 87 mm[Hg] Wm Valverde MD Work Phone: [facility] 12-02-2021 08:59-0400 Heart rate 94 /min Wm Valverde MD Work Phone: [facility] 12-02-2021 08:59-0400 Respiratory rate 16 /min Wm Valverde MD Work Phone: [facility] 12-02-2021 08:59-0400 SaO2% (BldA) [Mass fraction] 93 % Wm Valverde MD Work Phone: [facility] 12-02-2021 08:59-0400 Systolic blood pressure 170 mm[Hg] Wm Valverde MD Work Phone: [facility] 12-02-2021 07:13-0400 Body temperature 97.3 [degF] Wm Valverde MD Work Phone: [facility] 12-02-2021 07:13-0400 Body weight 139.3 kg Wm Valverde MD Work Phone: [facility] 10-08-2021 16:43-0400 Diastolic blood pressure 75 mm[Hg] Keti Dubow [facility] Work Phone: [facility] 10-08-2021 16:43-0400 Heart rate 105 /min Keti Dubow [facility] Work Phone: [facility] 10-08-2021 16:43-0400 Systolic blood pressure 124 mm[Hg] Keti Dubow [facility] Work Phone: [facility] 09-26-2021 10:25-0400 Body weight 135.63 kg Billie Hwang [employer]SUITE CONSULTANT.DIRECTOR MARKETING Work Phone: [facility] 09-26-2021 10:25-0400 Diastolic blood pressure 90 mm[Hg] Billie Tannhof NETSUITE CONSULTANT.DIRECTOR MARKETING Work Phone: [facility] 09-26-2021 10:25-0400 Heart rate 99 /min Billie Tannhof NETSUITE CONSULTANT.DIRECTOR MARKETING Work Phone: [facility] 09-26-2021 10:25-0400 Respiratory rate 20 /min Billie Tannhof NETSUITE CONSULTANT.DIRECTOR MARKETING Work Phone: [facility] 09-26-2021 10:25-0400 SaO2% (BldA) [Mass fraction] 96 % Billie Tannhof NETSUITE CONSULTANT.DIRECTOR MARKETING Work Phone: [facility] 09-26-2021 10:25-0400 Systolic blood pressure 140 mm[Hg] Billie Tannhof NETSUITE CONSULTANT.DIRECTOR MARKETING Work Phone: [facility] 06-06-2021 10:11-0400 Body weight 139.25 kg Billie Tannhof NETSUITE CONSULTANT.DIRECTOR MARKETING Work Phone: [facility] 06-06-2021 10:11-0400 Diastolic blood pressure 90 mm[Hg] Billie Tannhof NETSUITE CONSULTANT.DIRECTOR MARKETING Work Phone: [facility] 06-06-2021 10:11-0400 Heart rate 99 /min Billie Tannhof NETSUITE CONSULTANT.DIRECTOR MARKETING Work Phone: [facility] 06-06-2021 10:11-0400 Respiratory rate 20 /min Billie Tannhof NETSUITE CONSULTANT.DIRECTOR MARKETING Work Phone: [facility] 06-06-2021 10:11-0400 SaO2% (BldA) [Mass fraction] 90 % Billie Tannhof NETSUITE CONSULTANT.DIRECTOR MARKETING Work Phone: [facility] 06-06-2021 10:11-0400 Systolic blood pressure 140 mm[Hg] Billie Tannhof NETSUITE CONSULTANT.DIRECTOR MARKETING Work Phone: [facility] Encounters Encounter Date Encounter Type Care Provider Facility Start: 12-27-2024 End: 01-01-2025 ambulatory Eddie Vera Facility:[facility] Start: 12-21-2024 ambulatory NORA BRANHAM Facility:[facility] Start: 12-06-2024 End: 12-06-2024 ambulatory NORA BRANHAM Facility:[facility] Start: 11-16-2024 End: 11-16-2024 ambulatory NORA BRANHAM Facility:[facility] Start: 11-14-2024 End: 11-14-2024 Refill Vinh Van MD Work Phone: [facility] Comment on above: Refill Request Start: 10-25-2024 End: 10-25-2024 Office outpatient visit 25 minutes Nora Branham DO Work Phone: Hematology/Oncology Comment on above: Endometrial cancer ( HCC) (Primary Dx); Carcinomatosis (HCC); 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); Primary hypertension Start: 10-25-2024 End: 10-25-2024 ambulatory Lab/Port [facility] Work Phone: Hematology/Oncology Comment on above: Endometrial cancer ( HCC); Carcinomatosis (HCC); Macrocytic anemia Carcinomatosis (HCC) (Primary Dx); Endometrial cancer (HCC); Secondary malignancy of iliac lymph nodes (HCC) Start: 10-14-2024 End: 10-31-2024 Refill Vinh Van MD Work Phone: [facility] Comment on above: Refill Request Start: 10-13-2024 End: 10-13-2024 Refill Nora Branham DO Work Phone: Hematology/Oncology Comment on above: Refill Request Start: 10-05-2024 End: 10-05-2024 ambulatory VINH VAN Facility:[facility] Start: 10-03-2024 End: 10-03-2024 ambulatory VINH VAN Facility:[facility] Start: 09-13-2024 End: 09-13-2024 Patient encounter procedure Tamara Mari APRN.DIRECTOR MARKETING Work Phone: Hematology/Oncology Start: 09-13-2024 End: 09-13-2024 ambulatory Lab/Port [facility] Work Phone: Hematology/Oncology Comment on above: Endometrial cancer ( HCC); Carcinomatosis (HCC); Macrocytic anemia Carcinomatosis (HCC) (Primary Dx); Endometrial cancer (HCC); Secondary malignancy of iliac lymph nodes (HCC) Endometrial cancer ( HCC) (Primary Dx); Carcinomatosis (HCC) Start: 08-24-2024 End: 10-24-2024 Follow-up encounter Ana Jackson APRN.CNP Work Phone: [facility] Start: 08-23-2024 End: 08-23-2024 Office outpatient visit 25 minutes Nora Branham DO Work Phone: Hematology/Oncology Comment on above: Endometrial cancer ( HCC) (Primary Dx); Carcinomatosis (HCC); 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); Hypervolemia, unspecified hypervolemia type; Primary hypertension Start: 08-23-2024 End: 08-23-2024 ambulatory Lab/Port [facility] Work Phone: Hematology/Oncology Comment on above: Endometrial cancer ( HCC) (Primary Dx); Carcinomatosis (HCC); Macrocytic anemia; Type 2 diabetes mellitus without complication, with no history of insulin use (HCC) Endometrial cancer ( HCC) (Primary Dx); Carcinomatosis (HCC); Secondary malignancy of iliac lymph nodes (HCC) Start: 08-18-2024 End: 08-23-2024 Telephone encounter Maisha Edmonds Work Phone: Hematology/Oncology Start: 08-01-2024 End: 08-02-2024 Telephone encounter Maisha Edmonds Work Phone: Hematology/Oncology Start: 08-01-2024 End: 08-01-2024 Patient encounter procedure Maisha Edmonds Work Phone: Hematology/Oncology Start: 08-01-2024 End: 08-01-2024 ambulatory Treatment 12 [facility] Work Phone: Hematology/Oncology Comment on above: Carcinomatosis (HCC) (Primary Dx); Endometrial cancer (HCC); Secondary malignancy of iliac lymph nodes (HCC) Endometrial cancer ( HCC) (Primary Dx); Carcinomatosis (HCC) Endometrial cancer ( HCC); Carcinomatosis (HCC); Macrocytic anemia Start: 07-20-2024 End: 07-27-2024 Telephone encounter Nora Branham DO Work Phone: Hematology/Oncology Comment on above: Patient Update (hype rtension) Start: 07-18-2024 End: 07-18-2024 ambulatory [facility] Facility:[facility] Start: 07-12-2024 End: 07-12-2024 Telephone encounter Reena Peace RN Hematology/Oncology Comment on above: Rn Unit Manager - O ther (C1D1 Post Treatment (Avastin) ) Start: 07-11-2024 End: 07-11-2024 ambulatory Treatment Rm 9 [facility] Work Phone: Hematology/Oncology Comment on above: Endometrial cancer ( HCC) (Primary Dx); Carcinomatosis (HCC); Macrocytic anemia; Secondary malignancy of iliac lymph nodes (HCC) Start: 07-07-2024 End: 07-07-2024 Refill Supa Matute APRN.DIRECTOR MARKETING Work Phone: [facility] Comment on above: Refill Request Start: 07-04-2024 End: 07-04-2024 Telephone encounter Reena Peace RN Hematology/Oncology Comment on above: Rn Unit Manager - O ther (Chemotherapy Education Avastin ) Start: 07-03-2024 End: 07-03-2024 Office outpatient visit 25 minutes Nora Branham DO Work Phone: Hematology/Oncology Comment on above: Endometrial cancer ( HCC) (Primary Dx); Carcinomatosis (HCC); 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); Chemotherapy-induced neuropathy (HCC) Start: 07-03-2024 End: 07-03-2024 ambulatory [facility] Facility:[facility] Start: 07-03-2024 End: 07-03-2024 Telephone encounter Reena Peace RN Hematology/Oncology Comment on above: Rn Unit Manager - O ther (Change in treatment ) AVS Start: 06-20-2024 End: 06-20-2024 ambulatory Lab/Port [facility] Work Phone: Hematology/Oncology Comment on above: Endometrial cancer ( HCC); Carcinomatosis (HCC); Macrocytic anemia Start: 06-20-2024 End: 06-20-2024 Subsequent hospital visit by physician [facility] (I-Stat) Work Phone: Cat Scan Comment on above: Endometrial cancer ( HCC) [C54.1] Start: 06-07-2024 End: 06-08-2024 Refill Supa Matute APRN.DIRECTOR MARKETING Work Phone: [facility] Comment on above: Refill Request Start: 06-02-2024 End: 06-04-2024 Telephone encounter Nora Branham DO Work Phone: Hematology/Oncology Comment on above: Results Start: 06-02-2024 End: 06-02-[address] [facility] Facility:[facility] Start: 05-30-2024 End: 05-30-2024 Refill Billie Hwang APRN.DIRECTOR MARKETING Work Phone: [facility] Comment on above: Refill Request Start: 05-29-2024 End: 05-29-2024 Telephone encounter Vinh Van MD Work Phone: [facility] Comment on above: Faxed to [facility] Start: 05-26-2024 End: 05-29-2024 Telephone encounter Vinh Van MD Work Phone: [facility] Comment on above: Patient Update Start: 05-25-2024 End: 05-25-[address] [facility] Facility:[facility] Start: 05-25-2024 End: 05-25-2024 Patient encounter procedure Pamela Nelson MD Work Phone: Pulmonary Medicine Comment on above: Chronic obstructive pulmonary disease, unspecified COPD type (HCC) (Primary Dx); Chronic hypoxemic respiratory failure (HCC); Obesity hypoventilation syndrome (HCC); Endometrial cancer (HCC); Morbid obesity (HCC) Start: 05-25-2024 End: 05-25-2024 Office outpatient visit 25 minutes Billie Hwang APRN.DIRECTOR MARKETING Work Phone: [facility] Comment on above: Hospital discharge f ollow-up (Primary Dx); Type 2 diabetes mellitus without complication, with no history of insulin use (HCC); Nausea; RSV (respiratory syncytial virus pneumonia); History of UTI; Endometrial cancer (HCC) Start: 05-25-2024 End: 05-25-[address] [facility] Facility:[facility] Start: 05-24-2024 End: 05-25-2024 Telephone encounter Vinh Van MD Work Phone: [facility] [place] Comment on above: Physical Therapy [facility] Start: 05-23-2024 End: 05-23-2024 Telephone encounter Nora Branham DO Work Phone: Hematology/Oncology Comment on above: Patient Update home health requesti ng verbal order Start: 05-23-2024 End: 05-23-[address] [facility] Facility:[facility] Start: 05-23-2024 End: 05-23-2024 Office outpatient visit 25 minutes Nora Branham DO Work Phone: Hematology/Oncology Comment on above: Endometrial cancer ( HCC) (Primary Dx); Carcinomatosis (HCC); Lung nodules Start: 05-19-2024 End: 05-22-2024 Telephone encounter Vinh Van MD Work Phone: [facility] [place] Comment on above: Home Health Orders Start: 05-19-2024 ambulatory Najma Cancino cility:[facility] Start: 05-16-2024 End: 05-16-2024 ambulatory Najma Heart [facility] [facility] [place] Start: 05-10-2024 End: 05-10-2024 ambulatory Cydney Castellanos NP Facility:[facility] [place] Start: 05-03-2024 End: 05-03-2024 Telephone encounter Reena Peace RN Hematology/Oncology Comment on above: Appointment Start: 05-02-2024 End: 05-09-2024 Evaluation and management of inpatient LESTER PRASHANTH Facility:[facility] Start: 05-01-2024 Emergency department patient visit VINH VAN Facility:[facility] Start: 04-28-2024 ambulatory Bing Phelpso Facili ty:[facility] Start: 04-28-2024 End: 04-30-2024 Evaluation and management of inpatient Bing Villegas Facility:[facility] Start: 04-27-2024 ambulatory Bing Olearyi ty:[facility] Start: 04-27-2024 End: 04-28-2024 Telephone encounter Debi Chatman RN Work Phone: Hematology/Oncology Comment on above: Care Coordination (F ever, Nausea, Hypertension, Tachycardia) Start: 04-26-2024 End: 04-26-2024 Telephone encounter Reena Peace RN Hematology/Oncology Comment on above: Rn Unit Manager - O ther (C1D1 Post Treatment Call (Gemzar)) Start: 04-25-2024 End: 04-25-2024 ambulatory Treatment Rm 3 Singh [facility] Work Phone: Hematology/Oncology Comment on above: 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); Endometrial cancer (HCC); Carcinomatosis (HCC); Macrocytic anemia Start: 04-24-2024 End: 04-24-2024 Telephone encounter Nora Branham DO Work Phone: Hematology/Oncology Start: 04-21-2024 End: 04-21-2024 behavioral pediatrician [facility] Work Phone: Hematology/Oncology Comment on above: Encounter for educat ion (Primary Dx) Start: 04-19-2024 End: 04-19-2024 Office outpatient visit 25 minutes Tatyana Rahman APRN.CNP Work Phone: Pulmonary Medicine Comment on above: Moderate COPD (chron ic obstructive pulmonary disease) (HCC) (Primary Dx); 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); Chronic hypoxemic respiratory failure (HCC) Start: 04-19-2024 End: 04-19-2024 ambulatory [facility] Work Phone: [facility] Comment on above: Spirometry Start: 04-19-2024 End: 04-19-2024 Patient encounter procedure [facility] Work Phone: [facility] Start: 04-14-2024 End: 04-14-2024 Office outpatient visit 25 minutes Nora Branham DO Work Phone: Hematology/Oncology Comment on above: Endometrial cancer ( HCC) (Primary Dx); Carcinomatosis (HCC); RUQ pain; Drug-induced cardiomyopathy (HCC) Start: 04-14-2024 End: 04-14-2024 ambulatory Lab/Port [facility] Work Phone: Hematology/Oncology Comment on above: Endometrial cancer ( HCC); Carcinomatosis (HCC); Macrocytic anemia Start: 04-14-2024 End: 04-17-2024 Telephone encounter Debi Chatman RN Work Phone: Hematology/Oncology Comment on above: Care Coordination (Nenita carver in Treatment) Follow Up AVS 04/14 Start: 04-10-2024 End: 04-10-2024 Subsequent hospital visit by physician Simi [facility] (I-Stat) Work Phone: Cat Scan Comment on above: Endometrial cancer ( HCC) [C54.1] Start: 04-10-2024 End: 04-10-2024 ambulatory Lab/Port [facility] Work Phone: Hematology/Oncology Comment on above: 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) Start: 04-07-2024 End: 04-07-2024 ambulatory VINH MURILLOACME Facility:[facility] Start: 04-07-2024 End: 04-07-2024 Follow-up encounter Patel Escalera MD Work Phone: Radiation Oncology Comment on above: Radiotherapy follow- up (Primary Dx); Secondary malignant neoplasm of right lung (HCC) Start: 04-07-2024 End: 04-07-2024 Telemedicine consultation with patient Patel Escalera MD Work Phone: Radiation Oncology Start: 04-03-2024 End: 04-03-2024 Telephone encounter Nora Branham DO Work Phone: Hematology/Oncology Comment on above: Patient Question Start: 04-03-2024 ambulatory [facility] Facil ity:[facility] Start: 03-25-2024 End: 03-29-2024 Refill Farshad Marie MD Work Phone: Cardiology Comment on above: Refill Request Start: 03-23-2024 End: 03-23-2024 ambulatory Treatment Rm 4 [facility] Work Phone: Hematology/Oncology Comment on above: 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); Endometrial cancer (HCC); Carcinomatosis (HCC); Macrocytic anemia; Hypomagnesemia Start: 03-15-2024 End: 03-15-2024 Telephone encounter Nora Branham DO Work Phone: Hematology/Oncology Start: 03-15-2024 End: 03-15-2024 Office outpatient visit 25 minutes Nora Branham DO Work Phone: Hematology/Oncology Comment on above: Endometrial cancer ( HCC) (Primary Dx); Carcinomatosis (HCC) Start: 03-15-2024 End: 03-15-2024 ambulatory Lab/Port [facility] Work Phone: Hematology/Oncology Comment on above: Endometrial cancer ( HCC); Carcinomatosis (HCC); Macrocytic anemia Start: 03-13-2024 End: 03-13-2024 Refill Vinh Van MD Work Phone: [facility] Comment on above: Refill Request Start: 03-10-2024 End: 03-17-2024 Patient encounter procedure Patel Escalera MD Work Phone: Radiation Oncology Start: 03-10-2024 End: 03-17-2024 Radiation Oncology Note Patel Escalera MD Work Phone: Radiation Oncology Comment on above: Completion Note Start: 03-10-2024 End: 03-10-2024 ambulatory Patel Escalera MD Work Phone: Radiation Oncology Comment on above: Patient Education Start: 03-08-2024 End: 03-08-2024 Patient encounter procedure Patel Escalera MD Work Phone: Radiation Oncology Comment on above: 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) Start: 03-08-2024 End: 03-08-2024 ambulatory PATEL ESCALERA Facility:[facility] Start: 03-06-2024 End: 03-06-2024 [facility] Facility:[facility] Start: 03-02-2024 End: 03-02-2024 [facility] Facility:[facility] Start: 02-29-2024 End: 02-29-2024 [facility] Facility:[facility] Start: 02-21-2024 End: 02-21-2024 Telephone encounter Maisha Edmonds Work Phone: Hematology/Oncology Start: 02-15-2024 End: 02-19-2024 Patient encounter procedure Patel Escalera MD Work Phone: Radiation Oncology Start: 02-15-2024 End: 02-19-2024 Radiation Oncology Note Patel Escalera MD Work Phone: Radiation Oncology Comment on above: Simulation Note Treatment Planning Start: 02-15-2024 End: 02-15-2024 [facility] Facility:[facility] Start: 02-15-2024 End: 02-15-2024 [facility] of [facility] Work Phone: Radiation Oncology Comment on above: 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) Start: 02-11-2024 End: 02-14-2024 Orders Only Patel Escalera MD Work Phone: Radiation Oncology Comment on above: 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) Start: 02-09-2024 End: 02-09-2024 [facility] Facility:[facility] Start: 02-09-2024 End: 02-09-2024 Patient encounter procedure Patel Escalera MD Work Phone: Radiation Oncology Comment on above: 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) Start: 02-04-2024 End: 02-07-2024 Telephone encounter Nora Branham DO Work Phone: Hematology/Oncology Comment on above: Follow Up Start: 02-03-2024 End: 02-07-2024 Telephone encounter Tamara Mari APRN.DIRECTOR MARKETING Work Phone: Hematology/Oncology Comment on above: Patient Question Start: 02-03-2024 End: 02-03-2024 ambulatory Treatment Rm 3 [facility] Work Phone: Hematology/Oncology Comment on above: Hypomagnesemia (Prim brandi Dx); Endometrial cancer (HCC); Carcinomatosis (HCC); Thrombocytopenia (HCC) Start: 02-02-2024 End: 02-02-2024 Patient encounter procedure Tamara Mari APRN.DIRECTOR MARKETING Work Phone: Hematology/Oncology Start: 02-02-2024 End: 02-02-2024 ambulatory Lab/Port Singh [facility] Work Phone: Hematology/Oncology Comment on above: Endometrial cancer ( HCC); Carcinomatosis (HCC); Macrocytic anemia Endometrial cancer ( HCC) (Primary Dx); Carcinomatosis (HCC); Hypomagnesemia; Thrombocytopenia (HCC) Start: 01-18-2024 End: 01-18-2024 ambulatory Lab/Port [facility] Work Phone: Hematology/Oncology Comment on above: Encounter for care r elated to vascular access port (Primary Dx) Start: 01-18-2024 End: 01-18-2024 Subsequent hospital visit by physician Simi [facility] (I-Stat) Work Phone: Cat Scan Comment on above: Endometrial cancer ( HCC) [C54.1] Start: 01-13-2024 End: 01-13-2024 ambulatory Treatment Rm 8 [facility] Work Phone: Hematology/Oncology Comment on above: Endometrial cancer ( HCC) (Primary Dx); Carcinomatosis (HCC); Macrocytic anemia; Secondary malignancy of iliac lymph nodes (HCC) Start: 01-12-2024 End: 01-12-2024 Refill Nora Branham DO Work Phone: Hematology/Oncology Comment on above: Refill Request Appointment Start: 01-07-2024 End: 01-10-2024 Refill Nora Branham DO Work Phone: Hematology/Oncology Comment on above: Refill Request Start: 01-07-2024 End: 01-07-2024 ambulatory Nora Branham Facility:[facility] Start: 01-06-2024 End: 01-06-2024 Telephone encounter Nora Branham DO Work Phone: Hematology/Oncology Comment on above: Transfusion Social Work Services Start: 01-06-2024 End: 01-06-2024 ambulatory Lab/Port [facility] Work Phone: Hematology/Oncology Comment on above: Endometrial cancer ( HCC) (Primary Dx) Start: 01-05-2024 End: 01-06-2024 Telephone encounter Nora Branham DO Work Phone: Hematology/Oncology Comment on above: Results Start: 01-05-2024 End: 01-05-2024 Patient encounter procedure Tamara Mari APRN.DIRECTOR MARKETING Work Phone: Hematology/Oncology Start: 01-05-2024 End: 01-05-2024 ambulatory Lab/Port [facility] Work Phone: Hematology/Oncology Comment on above: Endometrial cancer ( HCC) (Primary Dx); Carcinomatosis (HCC); Macrocytic anemia Endometrial cancer ( HCC) (Primary Dx); Carcinomatosis (HCC); Lung nodules Start: 12-21-2023 End: 12-21-2023 Patient encounter procedure Pamela Nelson MD Work Phone: Pulmonary Medicine Comment on above: Malignant neoplasm m etastatic to both lungs (HCC) (Primary Dx); Moderate COPD (chronic obstructive pulmonary disease) (HCC); Chronic hypoxemic respiratory failure (HCC); Morbid obesity (HCC) Start: 12-16-2023 End: 12-16-2023 Telephone encounter Nora Branham DO Work Phone: Hematology/Oncology Comment on above: Transfusion Start: 12-16-2023 End: 12-16-2023 ambulatory Treatment Rm 7 Singh [facility] Work Phone: Hematology/Oncology Comment on above: Endometrial cancer ( HCC) (Primary Dx); Carcinomatosis (HCC); Macrocytic anemia; Secondary malignancy of iliac lymph nodes (HCC) Start: 12-13-2023 End: 12-14-2023 Telephone encounter Nora Branham DO Work Phone: Hematology/Oncology Comment on above: Appointment Start: 12-13-2023 End: 12-13-2023 Patient encounter procedure Maisha Edmonds Work Phone: Hematology/Oncology Start: 12-13-2023 End: 12-13-2023 ambulatory Lab/Port [facility] Work Phone: Hematology/Oncology Comment on above: Endometrial cancer ( HCC); Carcinomatosis (HCC); Macrocytic anemia Endometrial cancer ( HCC) (Primary Dx); Carcinomatosis (HCC) Start: 12-09-2023 End: 12-10-2023 Refill Vinh Van MD Work Phone: [facility] Comment on above: Refill Request Appointment (Upcomin g appts) Start: 12-02-2023 End: 12-02-2023 ambulatory Nohemi Garcia RN Work Phone: Extractor Machine Operator Management Start: 12-02-2023 End: 12-02-2023 Follow-up encounter Nohemi Garcia RN Work Phone: Extractor Machine Operator Management Comment on above: TRAVON HOOKER RN ( ER outreach follow up) Start: 11-25-2023 End: 11-25-2023 Telephone encounter Reena Peace floral assistant/Oncology Comment on above: Rn Unit Manager - O ther (C1D1 Post Treatment Call (Carboplatin) ) Start: 11-24-2023 End: 11-24-2023 ambulatory Treatment Rm 11 [facility] Work Phone: Hematology/Oncology Comment on above: 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); Endometrial cancer (HCC); Carcinomatosis (HCC); Macrocytic anemia Start: 11-23-2023 End: 11-23-2023 Telephone encounter Nora Branham DO Work Phone: Hematology/Oncology Comment on above: Medication Question Start: 11-19-2023 End: 11-19-2023 ambulatory Lab/Port [facility] Work Phone: Hematology/Oncology Comment on above: Carcinomatosis (HCC) ; Macrocytic anemia Endometrial cancer ( HCC) (Primary Dx); Carcinomatosis (HCC); Macrocytic anemia Start: 11-19-2023 End: 11-19-2023 Patient encounter procedure Nora Branham DO Work Phone: Hematology/Oncology Start: 11-19-2023 End: 11-19-2023 Telephone encounter Reena Peace RN Hematology/Oncology Comment on above: Rn Unit Manager - O ther (Change in treatment ) Start: 11-13-2023 End: 11-14-2023 Refill Nora Branham DO Work Phone: Hematology/Oncology Comment on above: Refill Request Start: 11-12-2023 End: 11-16-2023 Telephone encounter Nora Branham DO Work Phone: Hematology/Oncology Comment on above: Biopsy Request Start: 11-10-2023 End: 11-16-2023 Telephone encounter Tamara Mari APRN.DIRECTOR MARKETING Work Phone: Hematology/Oncology Comment on above: Results Start: 11-09-2023 End: 11-09-2023 Refill Nora Branham DO Work Phone: Hematology/Oncology Comment on above: Refill Request Start: 11-09-2023 ambulatory GO Carey ty:[facility] Start: 11-09-2023 End: 11-09-2023 Subsequent hospital visit by physician Injection [facility] [place] [facility] PET CT Comment on above: Lung nodules [R91.8] Start: 11-08-2023 End: 11-08-2023 Refill Vinh Van MD Work Phone: [facility] Comment on above: Refill Request Start: 11-03-2023 End: 11-03-2023 ambulatory Tamara Mari APRN.CNP Work Phone: Hematology/Oncology Comment on above: Endometrial cancer ( HCC) (Primary Dx); Lung nodules Start: 11-03-2023 End: 11-03-2023 Patient encounter procedure Tamara Mari APRN.CNP Work Phone: Hematology/Oncology Start: 10-27-2023 End: 10-27-2023 Subsequent hospital visit by physician Ct [facility] (I-Stat) Work Phone: Cat Scan Comment on above: Endometrial cancer ( HCC) [C54.1] Start: 10-21-2023 End: 10-21-2023 Telephone encounter oG Araujo MD Work Phone: Pulmonary Medicine Start: 10-14-2023 Social Work Carole Bolivar BRIDGES SUPERVISOR Hematolo gy/Oncology Comment on above: Population Health Na vigation Outreach ([facility] Start: 10-13-2023 End: 10-13-2023 Refill iVnh [facility] MD [facility] Comment on above: Refill Request Acute on chronic sys tolic congestive heart failure (HCC) (Primary Dx); Heart failure with mildly reduced ejection fraction (HCC); Type 2 diabetes mellitus with other specified complication, unspecified whether exterminator helper termite insulin use (HCC); Chemotherapy-induced neuropathy (HCC); Type 2 diabetes mellitus without complication, with no history of insulin use (HCC); Chemotherapy induced cardiomyopathy (HCC) Start: 09-28-2023 Telephone encounter Sang Bolanos [facility] Comment on above: Fabric Transition of Care Start: 09-20-2023 Telephone encounter Sang Bolanos [facility] Comment on above: Fabric Transition of Care Start: 09-15-2023 End: 09-15-2023 Patient encounter procedure Go Araujo MD Work Phone: Pulmonary Medicine Comment on above: Lung nodules (Primar y Dx); Chronic respiratory failure with hypoxia and hypercapnia (HCC); Morbid obesity (HCC); Endometrial cancer (HCC); ALEXX (obstructive sleep apnea); Obesity hypoventilation syndrome (HCC); Ex-smoker Start: 09-14-2023 Telephone encounter Sang Bolanos [facility] Comment on above: Fabric Transition of Care Start: 09-10-2023 End: 09-10-2023 Patient encounter procedure Billie Hwang APRN.CNP Work Phone: [facility] Comment on above: Hospital discharge f ollow-up (Primary Dx); Hypoventilation; Acute respiratory failure with hypoxia (HCC); Lung nodules; Endometrial cancer (HCC); Acute on chronic systolic CHF (congestive heart failure) (HCC); Psoriasis Start: 09-08-2023 ambulatory [facility] [place] Start: 09-08-2023 Patient encounter [facility] [place] Comment on above: Transition Of Care ( TCM) Start: 09-08-2023 Telephone encounter Sang Bolanos [facility] Comment on above: Fabric Transition of Care Start: 09-06-2023 Refill Vinh wood MD Work Phone: [facility] [place] Comment on above: Refill Request Start: 09-03-2023 Telephone encounter Sang Bolanos [facility] Comment on above: Fabric Transition of Care Start: 09-01-2023 Orders Only Pamela Nelson MD Work Phone: Pulmonary Medicine Comment on above: Obesity hypoventilat ion syndrome (HCC) (Primary Dx); SOB (shortness of breath) Start: 08-31-2023 ambulatory Eddie mckeon RN Work Phone: Extractor Machine Operator Management Start: 08-31-2023 Evaluation and manag ement of inpatient Eddie Hanley RN Work Phone: Extractor Machine Operator Management Comment on above: Transition Of Care ( TCM inpatient outreach) Start: 08-30-2023 End: 09-02-2023 Evaluation and management of inpatient ANTOLIN HERNANDEZ Facility:[facility] Start: 08-30-2023 Telephone encounter Oli lopez MD Work Phone: [place] Provider Adult Comment on above: Hospital To Hospital Rx Refills Start: 08-30-2023 End: 08-30-2023 Emergency department patient visit VINH VAN Facility:[facility] Start: 08-26-2023 Telephone encounter Nora styles DO Work Phone: Hematology/Oncology Comment on above: Orders Start: 08-24-2023 End: 08-24-2023 Patient encounter procedure Vinh Van MD Work Phone: [facility] [place] Comment on above: Type 2 diabetes my itus without complication, with no history of insulin use (HCC) (Primary Dx); 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); Chemotherapy-induced neuropathy (HCC); Essential hypertension, benign; Stage 3a chronic kidney disease (HCC); Hyperlipidemia, unspecified hyperlipidemia type; Left sided sciatica; Chronic right shoulder pain; Endometrial cancer (HCC) Start: 08-24-2023 Telephone encounter Nora styles DO Work Phone: Hematology/Oncology Comment on above: Biopsy Request Start: 08-24-2023 End: 08-24-2023 Subsequent hospital visit by physician Xr [facility] Work Phone: Radiology Comment on above: Endometrial cancer ( HCC) [C54.1] Start: 08-24-2023 End: 08-24-2023 Office outpatient visit 25 minutes Nora Branham DO Work Phone: Hematology/Oncology Comment on above: Endometrial cancer ( HCC) (Primary Dx); Secondary malignancy of iliac lymph nodes (HCC); Left hip pain; Lung nodule Start: 08-10-2023 End: 08-10-2023 ambulatory Lab/Port [facility] Work Phone: Hematology/Oncology Comment on above: Endometrial cancer ( HCC) (Primary Dx); Malaise and fatigue Start: 08-10-2023 End: 08-10-2023 Subsequent hospital visit by physician Ct Prep [facility] Cat Scan Comment on above: Endometrial cancer ( HCC) [C54.1] Start: 08-06-2023 Refill Supa WHITE RN.DIRECTOR MARKETING Work Phone: [facility] Comment on above: Refill Request Start: 08-03-2023 End: 08-03-2023 ambulatory Farshad Marie MD Work Phone: Cardiology Comment on above: Heart failure with m ildly reduced ejection fraction (HCC) (Primary Dx); Obesity, Class III, BMI 40-49.9 (morbid obesity) (HCC); Essential hypertension, benign; Type 2 diabetes mellitus without complication, with no history of insulin use (HCC); Mixed hyperlipidemia Start: 08-03-2023 End: 08-03-2023 Telemedicine consultation with patient Farshad Marie MD Work Phone: Cardiology Start: 08-02-2023 [facility]ulatory [facility] [place] Start: 08-02-2023 Patient encounter procedure Carey Lanier MA [facility] Comment on above: Population Health Na vigation Outreach ([facility] 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 - AWV, Care gaps, HCC gap closure - [place] [facility]) Start: 06-29-2023 Refill Farshad Marie MD Work Phone: Cardiology Comment on above: Rx Refills Start: 06-18-2023 End: 06-18-2023 Subsequent hospital visit by physician Janee Main J (I-Stat/1.5t) MRI J Comment on above: Obesity, Class III, BMI 40-49.9 (morbid obesity) (HCC) [E66.01] Start: 06-10-2023 Telephone encounter Vinh chavez MD Work Phone: [facility] Comment on above: patient requesting m edication not on list Start: 06-08-2023 End: 06-08-2023 Patient encounter procedure Nora Branham DO Work Phone: [facility] Start: 06-08-2023 End: 06-08-2023 ambulatory Lab/Port [facility] Work Phone: Hematology/Oncology Comment on above: Endometrial cancer ( HCC) (Primary Dx); Malaise and fatigue Endometrial cancer ( HCC) (Primary Dx) Start: 05-26-2023 End: 05-26-2023 ambulatory Farshad Marie MD Work Phone: Cardiology Comment on above: Heart failure with m ildly reduced ejection fraction (HCC) (Primary Dx); Essential hypertension, benign; Obesity, Class III, BMI 40-49.9 (morbid obesity) (HCC); Chemotherapy induced cardiomyopathy (HCC) Start: 05-26-2023 End: 05-26-2023 Telemedicine consultation with patient Farshad Marie MD Work Phone: [facility] Start: 05-20-2023 ambulatory Lupe Jackson [facility] [place] Comment on above: Population Health Na vigation Outreach (Roff AWV/HCC) Start: 05-20-2023 Refill Supa WHITE RN.DIRECTOR MARKETING Work Phone: [facility] [place] Comment on above: Refill Request Start: 05-07-2023 ambulatory Vianey Champion NETSUITE CONSULTANT.DIRECTOR MARKETING Work Phone: [place] Provider Adult Comment on above: Lab Work Start: 05-07-2023 E-mail encounter fro m caregiver Vianey Yuliana Hopson NETSUITE CONSULTANT.DIRECTOR MARKETING Work Phone: [facility] Start: 05-04-2023 Telephone encounter Soraya Lundberg RN [facility] Mechanical Maintenance Instructor Start: 05-03-2023 Orders Only Farshad Marie MD Work Phone: Cardiology Comment on above: Refill Request Start: 04-27-2023 Telephone encounter Nora styles DO Work Phone: Hematology/Oncology Comment on above: cancel appt Start: 04-20-2023 End: 04-20-2023 ambulatory Farshad Marie MD Work Phone: Cardiology Comment on above: Heart failure with m ildly reduced ejection fraction (HCC) (Primary Dx); Dyspnea on exertion; Neurogenic orthostatic hypotension (HCC); Chemotherapy induced cardiomyopathy (HCC) (HCC); 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); Obesity, Class III, BMI 40-49.9 (morbid obesity) (HCC) Start: 04-20-2023 End: 04-20-2023 Telemedicine consultation with patient Farshad Marie MD Work Phone: [facility] Start: 04-18-2023 Refill Billie Hwang APRN.DIRECTOR MARKETING Work Phone: [facility] [place] Comment on above: Refill Request; Refi ll Request Start: 04-13-2023 End: 04-13-2023 ambulatory Lab/Port [facility] Work Phone: Hematology/Oncology Comment on above: 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 Breanna Van Work Phone: [facility] Work Phone: Start: 04-10-2023 End: 04-12-2023 Evaluation and management of inpatient Dr. Vinh Van Work Phone: [facility] Work Phone: Start: 04-10-2023 End: 04-12-[address] Vinh Van Work Phone: [facility] Work Phone: Start: 04-07-2023 End: 04-07-2023 ambulatory Treatment Rm 13 Singh [facility] Work Phone: Hematology/Oncology Comment on above: Endometrial cancer ( HCC) (Primary Dx) Start: 04-06-2023 End: 04-06-2023 ambulatory Lab/Port Singh [facility] Work Phone: Hematology/Oncology Comment on above: Endometrial cancer ( HCC); Malaise and fatigue Start: 04-02-2023 End: 04-02-2023 Patient encounter procedure Farshad Marie MD Work Phone: Cardiology Comment on above: Heart failure with m ildly reduced ejection fraction (HCC) (Primary Dx); Obesity, Class III, BMI 40-49.9 (morbid obesity) (HCC); 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); Cardiomyopathy, unspecified type (HCC); Acute myocarditis, unspecified myocarditis type; Chemotherapy induced cardiomyopathy (HCC) (HCC) Start: 03-24-2023 End: 03-24-2023 Subsequent hospital visit by physician [facility] Work Phone: Radiology Comment on above: Chronic right should er pain [M25.511, G89.29] Start: 03-22-2023 Telephone encounter Vinh chavez MD Work Phone: [facility] [place] Comment on above: patient update on ar thritis pain Start: 03-16-2023 End: 03-16-2023 ambulatory Lab/[facility] Work Phone: Hematology/Oncology Comment on above: Pancytopenia (HCC) ( Primary Dx); Endometrial cancer (HCC); Malaise and fatigue Start: 03-15-2023 Non-patient / Non-visit Dr. Breanna Van Work Phone: [facility] Work Phone: Start: 03-12-2023 Non-patient / Non-visit Dr. Breanna Van Work Phone: [facility] Work Phone: Start: 03-11-2023 Non-patient / Non-visit Dr. Breanna Van Work Phone: [facility] Work Phone: Start: 03-10-2023 End: 03-12-2023 Evaluation and management of inpatient Dr. Vinh Van Work Phone: [facility] Work Phone: Start: 03-10-2023 Non-patient / Non-visit Dr. Breanna Van Work Phone: [facility] Work Phone: Start: 03-10-2023 End: 03-10-[address] Vinh Van Work Phone: [facility] Work Phone: Start: 02-18-2023 End: 02-18-2023 Office outpatient visit 25 minutes Nora Branham DO Work Phone: Hematology/Oncology Comment on above: Type 2 diabetes my itus without complication, with no history of insulin use (HCC) (Primary Dx) Start: 02-18-2023 End: 02-18-2023 ambulatory Lab/[facility] Work Phone: Hematology/Oncology Comment on above: Endometrial cancer ( HCC); Malaise and fatigue Endometrial cancer ( HCC) (Primary Dx); Type 2 diabetes mellitus without complication, with no history of insulin use (HCC) Start: 02-05-2023 Telephone encounter Kizzy machado RN Work Phone: Radiation Oncology Comment on above: Post Radiation Treat ment Follow Up Start: 02-02-2023 End: 02-02-2023 ambulatory Lab/[facility] Work Phone: Hematology/Oncology Comment on above: Endometrial cancer ( HCC); Malaise and fatigue Endometrial cancer ( HCC) (Primary Dx); Encounter for monitoring cardiotoxic drug therapy; Immunotherapy; Other cardiomyopathy (HCC); Pancytopenia (HCC); 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); Stage 3a chronic kidney disease (HCC); Platelets decreased (HCC) Cardiomyopathy, pedro schemic (HCC) (Primary Dx) Start: 02-02-2023 Telephone encounter Vianey [facility] Hematology/Oncology Comment on above: 2023 Keytruda Stephanie lipscomb Start: 02-02-2023 End: 02-02-2023 Patient encounter procedure Nora Branham DO Work Phone: [facility] Start: 02-01-2023 Patient encounter procedure Rosanne Díaz MD Work Phone: [facility] Start: 02-01-2023 Radiation Oncology Note Rosanne Díaz MD Work Phone: Radiation Oncology Comment on above: Completion Note Procedure Start: 01-28-2023 Patient encounter procedure Rosanne Díaz MD Work Phone: [facility] Start: 01-28-2023 Radiation Oncology Note Rosanne Díaz MD Work Phone: Radiation Oncology Comment on above: Procedure Start: 01-26-2023 Non-patient / Non-visit Dr. Breanna Van Work Phone: [facility] Work Phone: Start: 01-25-2023 Non-patient / Non-visit Dr. Breanna Van Work Phone: [facility] Work Phone: Start: 01-24-2023 End: 01-26-2023 Evaluation and management of inpatient [facility] Work Phone: Start: 01-19-2023 Patient encounter procedure Rosanne Díaz MD Work Phone: [facility] Start: 01-19-2023 Radiation Oncology Note Rosanne Díaz MD Work Phone: Radiation Oncology Comment on above: Treatment Planning Procedure Start: 01-18-2023 Orders Only Rosanne garner MD Work Phone: Radiation Oncology Comment on above: Endometrial cancer ( HCC) (Primary Dx) Start: 01-17-2023 Telephone encounter Bill Pena MD Work Phone: [place] Provider Adult Comment on above: Patient Question Start: 01-13-2023 Telephone encounter Nora styles DO Work Phone: Hematology/Oncology Comment on above: Patient Update Start: 01-13-2023 End: 01-13-2023 ambulatory Treatment Rm 2 [facility] Work Phone: Hematology/Oncology Comment on above: Endometrial cancer ( HCC) (Primary Dx) Start: 01-12-2023 End: 01-12-2023 Patient encounter procedure Nora Branham DO Work Phone: [facility] Start: 01-12-2023 End: 01-12-2023 ambulatory Lab/[facility] Work Phone: Hematology/Oncology Comment on above: Endometrial cancer ( HCC); Malaise and fatigue Endometrial cancer ( HCC) (Primary Dx); Chemotherapy-induced neuropathy (HCC) Start: 01-07-2023 End: 01-07-2023 Patient encounter procedure Rosanne Díaz MD Work Phone: Radiation Oncology Comment on above: Endometrial cancer ( HCC) (Primary Dx) Start: 12-31-2022 Telephone encounter Patel Pulido MD Work Phone: Radiation Oncology Comment on above: Orders Start: 12-30-2022 End: 12-30-2022 ambulatory Lab[facility] Work Phone: Hematology/Oncology Comment on above: Endometrial cancer ( HCC); Malaise and fatigue; Asthenia; Chemotherapy-induced cardiomyopathy (HCC) ; Muscle weakness Endometrial cancer ( HCC) (Primary Dx); Chemotherapy-induced neuropathy (HCC) Start: 12-30-2022 End: 12-30-2022 Patient encounter procedure Memo Leigh MD Work Phone: [facility] Start: 12-29-2022 End: 12-29-[address] Vinh Van Work Phone: [facility] Work Phone: Start: 12-28-2022 Telephone encounter Nora styles DO Work Phone: Hematology/Oncology Comment on above: Results Start: 12-28-2022 End: 12-28-2022 Subsequent hospital visit by physician [facility] Work Phone: Cardiology Lab Comment on above: Abnormal electrocard iogram [R94.31] Start: 12-28-2022 End: 12-28-2022 Subsequent hospital visit by physician [facility] Work Phone: Molecular Imaging Comment on above: Abnormal electrocard iogram [R94.31] Start: 12-25-2022 Telephone encounter Vicky treviño RN Cardiology Lab Comment on above: Reminder Call Start: 12-24-2022 End: 12-24-2022 ambulatory Lab[facility] Work Phone: Hematology/Oncology Comment on above: Endometrial cancer ( HCC) (Primary Dx) Start: 12-24-2022 End: 12-24-2022 Subsequent hospital visit by physician [facility] ([facility]) Work Phone: Cat Scan Comment on above: Endometrial cancer ( HCC) [C54.1] Start: 12-23-2022 Telephone encounter Nora styles DO Work Phone: Hematology/Oncology Comment on above: Follow Up Start: 12-23-2022 End: 12-23-2022 ambulatory Lab[facility] Work Phone: Hematology/Oncology Comment on above: Endometrial cancer ( HCC); Malaise and fatigue Start: 12-22-2022 End: 12-22-2022 Patient encounter procedure Nora Branham DO Work Phone: [facility] Start: 12-22-2022 End: 12-22-2022 ambulatory Lab[facility] Work Phone: Hematology/Oncology Comment on above: Endometrial cancer ( HCC) (Primary Dx); Malaise and fatigue Endometrial cancer ( HCC) (Primary Dx); Neurogenic orthostatic hypotension (HCC); Encounter for monitoring cardiotoxic drug therapy Neurogenic orthostat ic hypotension (HCC) (Primary Dx); Encounter for monitoring cardiotoxic drug therapy; Nonspecific abnormal electrocardiogram (ECG) (EKG) Start: 12-17-2022 End: 12-17-2022 ambulatory Lab[facility] Work Phone: Hematology/Oncology Comment on above: Endometrial cancer ( HCC); Malaise and fatigue Start: 12-15-2022 End: 12-15-2022 Patient encounter procedure Nora Branham DO Work Phone: [facility] [place] Start: 12-15-2022 End: 12-15-2022 ambulatory Lab[facility] Work Phone: Hematology/Oncology Comment on above: Endometrial cancer ( HCC) (Primary Dx) Endometrial cancer ( HCC) (Primary Dx); 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); Stage 3a chronic kidney disease (HCC) Start: 12-14-2022 Orders Only Nora Sarabia Work Phone: Hematology/Oncology Comment on above: Endometrial cancer ( HCC) (Primary Dx) Start: 12-04-2022 End: 12-04-2022 Patient encounter procedure Hood Thompson PA-C Work Phone: General Surgery Comment on above: Gastroesophageal ref lux disease with esophagitis without hemorrhage (Primary Dx); Chronic superficial gastritis without bleeding Start: 11-25-2022 End: 11-25-2022 Subsequent hospital visit by physician Almaz Horta MD Work Phone: Ambulatory Surgery Comment on above: Dysphagia, unspecifi ed type [R13.10] Start: 11-11-2022 Telephone encounter Nora styles DO Work Phone: Hematology/Oncology Comment on above: Results Start: 11-11-2022 End: 11-11-2022 ambulatory Treatment Rm 4 [facility] Work Phone: Hematology/Oncology Comment on above: Endometrial cancer ( HCC) (Primary Dx); Malaise and fatigue Start: 11-05-2022 End: 11-05-2022 Patient encounter procedure Hood Thompson PA-C Work Phone: General Surgery Comment on above: Dysphagia, unspecifi ed type (Primary Dx) Start: 11-03-2022 End: 11-03-2022 Patient encounter procedure Nora Branham DO Work Phone: [facility] Start: 11-03-2022 End: 11-03-2022 ambulatory Lab[facility] Work Phone: Hematology/Oncology Comment on above: Endometrial cancer ( HCC); Malaise and fatigue Endometrial cancer ( HCC) (Primary Dx); 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); Platelets decreased (HCC) Start: 10-28-2022 End: 10-28-2022 Subsequent hospital visit by physician [facility] Cat Scan Comment on above: Endometrial cancer ( HCC) [C54.1] Start: 10-23-2022 Telephone encounter Harry pisano Work Phone: Research Comment on above: Research F/U Start: 10-16-2022 Telephone encounter Debi dias RN Work Phone: Hematology/Oncology Comment on above: Care Coordination (C YCLE 1/DAY 1 POST TREATMENT CALL ) Start: 10-14-2022 End: 10-14-2022 ambulatory Treatment Rm 9 [facility] Work Phone: Hematology/Oncology Comment on above: Endometrial cancer ( HCC) (Primary Dx) Start: 10-13-2022 End: 10-13-2022 Patient encounter procedure Nora Branham DO Work Phone: [facility] [place] Start: 10-13-2022 End: 10-13-2022 ambulatory Lab[facility] Work Phone: Hematology/Oncology Comment on above: Endometrial cancer ( HCC) (Primary Dx) Endometrial cancer ( HCC) (Primary Dx); Malaise and fatigue; Essential hypertension, benign; 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) Start: 10-13-2022 Telephone encounter Nora styles DO Work Phone: Hematology/Oncology Comment on above: AVS 10/13 Start: 10-01-2022 Telephone encounter Vianey [facility] Hematology/Oncology Comment on above: Psychosocial Assessm ent Start: 09-24-2022 Telephone encounter Debi dias RN Work Phone: Hematology/Oncology Comment on above: Care Coordination (I mmunotherapy Teaching) Refill Request Keytruda Assistance Start: 09-24-2022 End: 09-24-2022 ambulatory Treatment Rm 6 [facility] Work Phone: Hematology/Oncology Comment on above: Endometrial cancer ( HCC) (Primary Dx) Start: 09-23-2022 Telephone encounter Nora styles DO Work Phone: Hematology/Oncology Comment on above: Results Start: 09-10-2022 Telephone encounter Debi dias RN Work Phone: Hematology/Oncology Comment on above: Care Coordination (T oxicity Check) Future Appointment Start: 09-04-2022 Telephone encounter Reena Peace RN He matology/Oncology Comment on above: Rn Unit Manager - O ther (C1D1 Post Treatment Call (Carboplatin/Taxol)) Start: 09-03-2022 End: 09-03-2022 ambulatory Treatment Rm 6 [facility] [place] Work Phone: Hematology/Oncology Comment on above: Endometrial cancer ( HCC) (Primary Dx); 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); Neuropathy Start: 08-28-2022 End: 08-28-2022 ambulatory Lindseyjames Mccauley [facility] Work Phone: [facility] Comment on above: Endometrial cancer ( HCC) (Primary Dx); Family history of colon cancer Start: 08-28-2022 End: 08-28-2022 Telemedicine consultation with patient Lindsey Mccauley [facility] Work Phone: [facility] Start: 08-25-2022 Telephone encounter Debi dias RN Work Phone: Hematology/Oncology Comment on above: Medication Request Start: 08-25-2022 End: 08-25-2022 behavioral pediatrician [facility] Work Phone: Hematology/Oncology Comment on above: Encounter for educat ion (Primary Dx); Endometrial cancer (HCC) Start: 08-19-2022 End: 08-19-2022 Patient encounter procedure Almaz Horta MD Work Phone: General Surgery Comment on above: Endometrial cancer ( HCC); Exhausted vascular access Start: 08-19-2022 Telephone encounter Nora styles DO Work Phone: Hematology/Oncology Comment on above: Follow Up Start: 08-14-2022 Telephone encounter Debi dias RN Work Phone: Hematology/Oncology Comment on above: Care Coordination (I ntroduction) AVS 08/14; CHEMO STAR T Start: 08-14-2022 End: 08-14-2022 ambulatory Nora Branham DO Work Phone: Hematology/Oncology Comment on above: Endometrial cancer ( HCC) (Primary Dx); Neuropathy; 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) Start: 08-14-2022 End: 08-14-2022 Patient encounter procedure Nora Branham DO Work Phone: [facility] Start: 08-13-2022 Telephone encounter Nora styles DO Work Phone: Hematology/Oncology Comment on above: New Patient Start: 08-12-2022 End: 08-12-2022 Follow-up encounter Memo Leigh MD Work Phone: Gynecology Oncology Comment on above: Surgery follow-up ex amination (Primary Dx); Endometrial cancer (HCC); Secondary malignancy of iliac lymph nodes (HCC); Other specified counseling Start: 08-12-2022 End: 08-12-2022 Patient encounter procedure Memo Leigh MD Work Phone: [facility] Start: 08-05-2022 Orders Only Zora Cason APRN.DIRECTOR MARKETING Work Phone: Gynecology Oncology Comment on above: Endometrial cancer ( HCC) (Primary Dx) Start: 08-04-2022 End: 08-04-2022 ambulatory Milka Bauer [facility] Work Phone: [facility] Comment on above: Type 2 diabetes my itus without complication, with no history of insulin use (HCC) (Primary Dx) Start: 08-04-2022 End: 08-04-2022 Telemedicine consultation with patient Milka Bauer elkin Work Phone: [facility] Start: 07-29-2022 Telephone encounter Milka Bauer [facility] Work Phone: [facility] Comment on above: Missed Appointment Start: 07-28-2022 End: 07-28-2022 Follow-up encounter Zora Cason APRN.DIRECTOR MARKETING Work Phone: Gynecology Oncology Comment on above: Surgery follow-up ex amination (Primary Dx); Endometrial cancer (HCC) Start: 07-28-2022 End: 07-28-2022 Telemedicine consultation with patient Zora Cason APRN.DIRECTOR MARKETING Work Phone: [facility] Start: 07-22-2022 End: 07-22-2022 Subsequent hospital visit by physician [facility] Work Phone: Radiology Comment on above: Endometrial cancer ( HCC) [C54.1] Start: 07-10-2022 Refill Vinh wood MD Work Phone: [facility] Comment on above: Refill Request Start: 06-30-2022 Telephone encounter Mukesh troncoso MD Work Phone: OB/Gynecology Comment on above: Appointment Start: 06-30-2022 End: 06-30-2022 Patient encounter procedure Mukesh Khan MD Work Phone: OB/Gynecology Comment on above: Elevated cancer anti gen 125 (CA-125) (Primary Dx); Adnexal mass; Elevated CA-125; Endometrial thickening on ultrasound; Abnormal CT of the abdomen Start: 06-24-2022 Telephone encounter Billie gaviria NETSUITE CONSULTANT.DIRECTOR MARKETING Work Phone: [facility] Comment on above: Results; Orders (US transvaginal and Lab ) Start: 06-23-2022 End: 06-23-2022 Subsequent hospital visit by physician [facility] Work Phone: Radiology Comment on above: Adnexal cyst [N94.9] Start: 06-17-2022 Telephone encounter Billie gaviria APRN.DIRECTOR MARKETING Work Phone: [facility] Comment on above: Results (Ct Abdomen/ Pelvis ABNORMAL FINDINGS ); Orders Start: 06-16-2022 End: 06-16-2022 Subsequent hospital visit by physician [facility] ([facility]) Work Phone: Cat Scan Comment on above: Abnormal ultrasound [R93.89] Start: 06-11-2022 Telephone encounter Billie gaviria NETSUITE CONSULTANT.DIRECTOR MARKETING Work Phone: [facility] Comment on above: Results; Orders (US Kidney/Bladder) Start: 06-11-2022 End: 06-11-2022 Subsequent hospital visit by physician [facility] Work Phone: Radiology Comment on above: Flank pain [R10.9] Start: 06-10-2022 Telephone encounter Radha Cruz [facility] Comment on above: Orders Start: 06-08-2022 Telephone encounter Billieadán Elam khadra NETSUITE CONSULTANT.DIRECTOR MARKETING Work Phone: [facility] [place] Comment on above: Results (Urine ) Start: 06-05-2022 End: 06-05-2022 Patient encounter procedure Billie Hwang NETSUITE CONSULTANT.DIRECTOR MARKETING Work Phone: [facility] [place] Comment on above: Acute cystitis with hematuria (Primary Dx); Abdominal cramping Start: 06-03-2022 Refill Billie Hwang NETSUITE CONSULTANT.DIRECTOR MARKETING Work Phone: [facility] [place] Comment on above: Refill Request Start: 06-03-2022 Refill Vinh wood MD Work Phone: [facility] Comment on above: Refill Request Start: 04-13-2022 Telephone encounter Billie gaviria NETSUITE CONSULTANT.DIRECTOR MARKETING Work Phone: [facility] [place] Comment on above: Results (Urine ) Start: 04-10-2022 End: 04-10-2022 ambulatory Mlika Bauer [facility] Work Phone: [facility] Comment on above: Type 2 diabetes my itus without complication, with no history of insulin use (HCC) (Primary Dx) Start: 04-10-2022 End: 04-10-2022 Telemedicine consultation with patient Milka Bauer [facility] Work Phone: [facility] Start: 04-09-2022 End: 04-09-2022 Patient encounter procedure Billie Hwang NETSUITE CONSULTANT.DIRECTOR MARKETING Work Phone: [facility] [place] Comment on above: Acute cystitis with hematuria (Primary Dx); Flank pain; Vaginal bleeding Start: 03-23-2022 Refill Vinh wood MD Work Phone: [facility] [place] Comment on above: Refill Request Start: 02-20-2022 End: 02-20-2022 ambulatory Milka Bauer [facility] Work Phone: [facility] Comment on above: Type 2 diabetes my itus without complication, with no history of insulin use (HCC) (Primary Dx) Start: 02-20-2022 End: 02-20-2022 Telemedicine consultation with patient Milka Bauer RP Work Phone: [facility] Start: 02-05-2022 Telephone encounter Vinh chavez MD Work Phone: [facility] Comment on above: Forms Start: 01-09-2022 Telephone encounter Milka Bauer [facility] Work Phone: [facility] Comment on above: Appointment Start: 01-09-2022 End: 01-09-2022 ambulatory Milka Bauer [facility] Work Phone: [facility] Comment on above: Type 2 diabetes my itus without complication, with no history of insulin use (HCC) (Primary Dx) Start: 01-09-2022 End: 01-09-2022 Telemedicine consultation with patient Milka Bauer [facility] Work Phone: [facility] Start: 01-02-2022 Telephone encounter Billie gaviria APRN.DIRECTOR MARKETING Work Phone: [facility] Comment on above: Results (labs) Start: 12-29-2021 End: 12-29-2021 Patient encounter procedure Billie Hwang APRN.DIRECTOR MARKETING Work Phone: [facility] [place] Comment on above: Type 2 diabetes my itus without complication, with no history of insulin use (HCC) (Primary Dx); 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); Mixed hyperlipidemia Start: 12-02-2021 End: 12-02-2021 Subsequent hospital visit by physician Wm Valverde MD Work Phone: Ambulatory Surgery Comment on above: Special screening fo r malignant neoplasms, colon [Z12.11] Start: 11-07-2021 End: 11-07-2021 ambulatory Milka Bauer [facility] Work Phone: [facility] Comment on above: Type 2 diabetes my itus without complication, with no history of insulin use (HCC) (Primary Dx) Start: 11-07-2021 End: 11-07-2021 Telemedicine consultation with patient Milka Bauer [facility] Work Phone: [facility] Start: 10-08-2021 Telephone encounter Milka Bauer [facility] Work Phone: [facility] Comment on above: Patient Assistance ( Evelina [employer]ares (Trulicity)) Start: 10-08-2021 End: 10-08-2021 Patient encounter procedure Milka Bauer [facility] Work Phone: [facility] Comment on above: Type 2 diabetes my itus without complication, with no history of insulin use (HCC) (Primary Dx); Essential hypertension, benign; Medication management Start: 10-06-2021 Telephone encounter Milka Bauer [facility] Work Phone: [facility] Comment on above: Primary Care Pharmac y Appointment Start: 09-30-2021 Telephone encounter Елена Vick on [facility] Comment on above: Primary Care Pharmac y Appt Start: 09-29-2021 Telephone encounter Billie gaviria APRN.DIRECTOR MARKETING Work Phone: [facility] [place] Comment on above: Results (Labs ); Ord ers Start: 09-26-2021 End: 09-26-2021 Patient encounter procedure Billie Hwang APRN.DIRECTOR MARKETING Work Phone: [facility] [place] Comment on above: Type 2 diabetes my itus without complication, with no history of insulin use (HCC) (Primary Dx); 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); Essential hypertension, benign; Mixed hyperlipidemia Start: 08-13-2021 Refill Supa WHITE RN.DIRECTOR MARKETING Work Phone: [facility] [place] Comment on above: Refill Request Start: 06-23-2021 Telephone encounter Wm Valverde MD Work Phone: General Surgery Comment on above: 08-26-2021 Colon ASC Start: 06-10-2021 Telephone encounter Vinh chavez MD Work Phone: [facility] [place] Comment on above: Insurance Authorizat ion (Betamethasone) Start: 06-06-2021 End: 06-06-2021 Patient encounter procedure Billie Hwang APRN.DIRECTOR MARKETING Work Phone: [facility] [place] Comment on above: Wellness examination (Primary Dx); Essential hypertension, benign; Type 2 diabetes mellitus without complication, with no history of insulin use (HCC); 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); Mixed hyperlipidemia; Insomnia, unspecified type; Psoriasis of scalp; Special screening for malignant neoplasms, colon; Encounter for immunization Start: 06-06-2021 End: 06-06-2021 Patient encounter status Billie Hwang MAGEN.DIRECTOR MARKETING Work Phone: [facility] [place] Start: 06-02-2021 ambulatory Supa WHITE RN.DIRECTOR MARKETING Work Phone: [facility] [place] Start: 05-27-2020 End: 05-27-2020 Subsequent hospital visit by physician [facility] Work Phone: Radiology Comment on above: Acute pain of right shoulder [M25.511] Procedures Date Procedure Procedure Detail Performing Clinician Start: 10-25-2024 Urnls dip stick/tablet rgnt auto w/o microscopy [facility] Start: 10-25-2024 Blood count complete auto&auto difrntl wbc Nora Branham DO Work Phone: Start: 09-13-2024 Urnls dip stick/tablet rgnt auto w/o microscopy [facility] Provider Start: 09-13-2024 Blood count complete auto&auto difrntl wbc Nora Branham DO Work Phone: Start: 08-23-2024 Urnls dip stick/tablet rgnt auto w/o microscopy [facility] Start: 08-23-2024 Blood count complete auto&auto difrntl wbc Nora Estradai DO Work Phone: Start: 08-23-2024 Immunoassay tumor antigen quantitative ca 125 Nora Estradai DO Work Phone: Start: 08-01-2024 Blood count complete auto&auto difrntl wbc Nora Branham DO Work Phone: Start: 07-11-2024 Urnls dip stick/tablet rgnt auto w/o microscopy [facility] Provider Start: 07-11-2024 Blood count complete auto&auto difrntl wbc Nora Estradai DO Work Phone: Start: 06-20-2024 Blood count complete auto&auto difrntl wbc Nora Holland Masci DO Work Phone: Start: 06-02-2024 Henrry ESCALERA Start: 04-25-2024 Blood count complete auto&auto difrntl wbc Nora Holland Masci DO Work Phone: Start: 04-19-2024 Brncdilat rspse spmtry pre&post-brncdilat admn Pamela Nelson MD Work Phone: Start: 04-14-2024 Gen seq analys jackie org/hemtolmphoid leatha 51/> gen Nora A Masci DO Work Phone: Start: 04-14-2024 Blood count complete auto&auto difrntl wbc Nora Holland Masci DO Work Phone: Start: 03-23-2024 Blood count complete auto&auto difrntl wbc Nora A Masci DO Work Phone: Start: 03-15-2024 Blood count complete auto&auto difrntl wbc Nora A Masci DO Work Phone: Start: 02-03-2024 Blood count complete auto&auto difrntl wbc Tamara Mari NETSUITE CONSULTANT.DIRECTOR MARKETING Work Phone: Start: 02-02-2024 Blood count complete auto&auto difrntl wbc Nora Holland Masci DO Work Phone: Start: 01-13-2024 Blood count complete auto&auto difrntl wbc Nora Holland Masci DO Work Phone: Start: 01-05-2024 Blood count complete auto&auto difrntl wbc Nora A Masci DO Work Phone: Start: 12-16-2023 Blood count complete auto&auto difrntl wbc Nora A Masci DO Work Phone: Start: 12-13-2023 Blood count complete auto&auto difrntl wbc Nora A Masci DO Work Phone: Start: 11-24-2023 Blood count complete auto&auto difrntl wbc Nora Branham DO Work Phone: Start: 11-24-2023 Comprehensive metabolic 2000 panel - Serum or Plasma Nora Branham DO Work Phone: Start: 11-19-2023 Comprehensive metabolic panel Nora styles DO Work Phone: Start: 11-09-[address] attenuation skull base mid-thigh Go Araujo MD Work Phone: Start: 11-09-2023 Gluc bld gluc mntr dev cleared fda spec home use [facility] Provider Start: 08-24-2023 Adult depression screening assessment [facility] Provider Start: 08-10-2023 Blood count complete auto&auto difrntl wbc Nora Branham DO Work Phone: Start: 08-10-2023 Immunoassay tumor antigen quantitative ca 125 Nora Branham DO Work Phone: Start: 06-18-2023 Cardiac mri w/wo contrast & further seq Farshad Marie MD Work Phone: Start: 06-08-2023 Blood count complete auto&auto difrntl wbc Nora Branham DO Work Phone: Start: 06-08-2023 Immunoassay tumor antigen quantitative ca 125 Nora Branham DO Work Phone: Start: 04-13-2023 Renal function panel Farshad Marie MD Work Phone: Start: 04-10-2023 Plain chest X-ray Dr. Vinh Van Work Phone: Start: 04-10-2023 CT of head without contrast Dr. Vinh chavez Work Phone: Start: 04-10-2023 SARS-CoV-2, Influenza & RSV (PCR) Dr. Breanna Van Work Phone: Start: 04-10-[address] Vinh Van Work Phone: Start: 04-06-2023 Blood count complete auto&auto difrntl wbc Nora Holland Masci DO Work Phone: Start: 03-24-2023 Radex shoulder complete minimum 2 views Billie Hwang APRN.CNP Work Phone: Start: 03-16-2023 Blood count complete auto&auto difrntl wbc Nora Holland Masci DO Work Phone: Start: 03-16-2023 Immunoassay tumor antigen quantitative ca 125 Nora A Masci DO Work Phone: Start: 03-10-2023 Plain chest X-ray Dr. Vinh Van Work Phone: Start: 03-10-2023 Bacteria identified in Blood by Culture Dr. Vinh Van Work Phone: Start: 03-10-[address] Vinh Van Work Phone: Start: 02-18-2023 Natriuretic peptide Nora Holland Masci DO Work Phone: Start: 02-18-2023 Blood count complete auto&auto difrntl wbc Nora Holland Masci DO Work Phone: Start: 02-18-2023 Immunoassay tumor antigen quantitative ca 125 Nora Holland Masci DO Work Phone: Start: 02-02-2023 Blood count complete auto&auto difrntl wbc Nora Holland Masci DO Work Phone: Start: 01-25-2023 Bacteria identified in Blood by Culture Dr. Vinh Van Work Phone: Start: 01-24-2023 Plain chest X-ray Dr. Vinh Van Work Phone: Start: 01-24-2023 CT of head without contrast Dr. Vinh chavez Work Phone: Start: 01-24-[address] Vinh Van Work Phone: Start: 01-12-2023 Blood count complete auto&auto difrntl wbc Nora Holland Masci DO Work Phone: Start: 12-30-2022 Blood count complete auto&auto difrntl wbc Nora Holland Masci DO Work Phone: Start: 12-28-2022 Myocardial spect multiple studies Nora Holland Masci DO Work Phone: Start: 12-24-2022 Ct abdomen & pelvis w/contrast material Zora Cason NETSUITE CONSULTANT.DIRECTOR MARKETING Work Phone: Start: 12-24-2022 Ct thorax w/contrast material Zora Cason NETSUITE CONSULTANT.DIRECTOR MARKETING Work Phone: Start: 12-23-2022 Comprehensive metabolic panel Nora Louis ci DO Work Phone: Start: 12-22-2022 Natriuretic peptide Nora Holland Masci DO Work Phone: Start: 12-22-2022 Blood count complete auto&auto difrntl wbc Nora Holland Masci DO Work Phone: Start: 12-17-2022 Blood count complete auto&auto difrntl wbc Nora Holland Masci DO Work Phone: Start: 12-15-2022 Basic metabolic panel calcium total Nora Holland Masci DO Work Phone: Start: 11-25-2022 Level iv surg pathology gross&microscopic exam Almaz Horta MD Work Phone: Start: 11-25-2022 Esophagogastroduodenoscopy transoral diagnostic Hood Thmopson PA-C Work Phone: Start: 11-11-2022 Blood count complete auto&auto difrntl wbc Nora Holland Masci DO Work Phone: Start: 11-03-2022 Blood count complete auto&auto difrntl wbc Nora Holland Masci DO Work Phone: Start: 11-03-2022 Immunoassay tumor antigen quantitative ca 125 Nora Holland Masci DO Work Phone: Start: 10-28-2022 Ct abdomen & pelvis w/contrast material Nora Holland Masci DO Work Phone: Start: 10-28-2022 Ct thorax w/contrast material Nora styles DO Work Phone: Start: 10-13-2022 Blood count complete auto&auto difrntl wbc Nora Branham DO Work Phone: Start: 10-13-2022 Immunoassay tumor antigen quantitative ca 125 Nora Branham DO Work Phone: Start: 09-03-2022 Blood count complete auto&auto difrntl wbc Tamara Mari NETSUITE CONSULTANT.DIRECTOR MARKETING Work Phone: Start: 09-03-2022 Immunoassay tumor antigen quantitative ca 125 Tamara Mari NETSUITE CONSULTANT.DIRECTOR MARKETING Work Phone: Start: 08-12-2022 Urnls dip stick/tablet rgnt auto w/o microscopy Memo Leigh MD Work Phone: Start: 07-22-2022 Radiologic exam chest 2 views Zora Cason NETSUITE CONSULTANT.DIRECTOR MARKETING Work Phone: Start: 06-23-2022 Us pelvic nonobstetric image dcmtn limited/f/u Billie Hwang NETSUITE CONSULTANT.DIRECTOR MARKETING Work Phone: Start: 06-16-2022 Ct abdomen & pelvis w/contrast material Billie Hwang NETSUITE CONSULTANT.DIRECTOR MARKETING Work Phone: Start: 06-11-2022 Us retroperitoneal real time w/image complete Billie Hwang NETSUITE CONSULTANT.DIRECTOR MARKETING Work Phone: Start: 06-05-2022 Urnls dip stick/tablet reagent auto microscopy Billie Hwang NETSUITE CONSULTANT.DIRECTOR MARKETING Work Phone: Start: 06-05-2022 Urnls dip stick/tablet rgnt auto w/o microscopy Billie Hwang NETSUITE CONSULTANT.DIRECTOR MARKETING Work Phone: Start: 04-09-2022 Urnls dip stick/tablet rgnt auto w/o microscopy Billie Hwang NETSUITE CONSULTANT.DIRECTOR MARKETING Work Phone: Start: 12-02-2021 Gluc bld gluc mntr dev cleared fda spec home use Wm Valverde MD Work Phone: Start: 12-02-2021 Colonoscopy flx dx w/collj spec when pfrmd Billieadán Hwang APRN.CNP Work Phone: Start: 07-11-2020 Adult depression screening assessment Supa Matute APRN.CNP Work Phone: Start: 05-27-2020 Radex forearm 2 views Supa Matute APRN.C [employer] CLERK Work Phone: Start: 11-05-2017 Colonoscopy Supa Matute APRN.CNP Work Phone: Plan of Treatment Date Care Activity Detail Author Start: 06-07-2031 Urine microalbumin profile [facility] Start: 10-25-2025 Complete blood count Hemoglobin/Hematocrit [facility] Start: 10-25-2025 Creatinine measurement Serum Creatinine [facility] Start: 10-05-2025 Complete blood count Hemoglobin/Hematocrit [facility] Start: 10-05-2025 Creatinine measurement Serum Creatinine [facility] Start: 09-13-2025 Complete blood count Hemoglobin/Hematocrit [facility] Start: 09-13-2025 Creatinine measurement Serum Creatinine [facility] Start: 08-23-2025 Complete blood count Hemoglobin/Hematocrit [facility] Start: 08-23-2025 Creatinine measurement Serum Creatinine [facility] Start: 08-01-2025 Creatinine measurement Serum Creatinine [facility] Start: 07-11-2025 Creatinine measurement Serum Creatinine [facility] Start: 06-20-2025 Complete blood count Hemoglobin/Hematocrit [facility] Start: 06-20-2025 Creatinine measurement Serum Creatinine [facility] Start: 05-25-2025 Annual PCP Team Chronic Disease Visit Annual PCP Team Chronic Disease Visit [facility] Start: 05-25-2025 BP Controlled (<130/80) BP Controlled (<130/80) [facility] Start: 05-23-2025 BP Controlled (<130/80) BP Controlled (<130/80) [facility] Start: 05-09-2025 Complete blood count Hemoglobin/Hematocrit [facility] Start: 05-09-2025 Creatinine measurement Serum Creatinine [facility] Start: 05-03-2025 Complete blood count Hemoglobin/Hematocrit [facility] Start: 05-03-2025 Creatinine measurement Serum Creatinine [facility] Start: 04-25-2025 Complete blood count Hemoglobin/Hematocrit [facility] Start: 04-25-2025 Creatinine measurement Serum Creatinine [facility] Start: 04-19-2025 BP Controlled (<130/80) BP Controlled (<130/80) [facility] in Start: 04-14-2025 BP Controlled (<130/80) BP Controlled (<130/80) [facility] Start: 04-14-2025 Creatinine measurement Serum Creatinine [facility] Start: 03-23-2025 Complete blood count Hemoglobin/Hematocrit [facility] Start: 03-23-2025 Creatinine measurement Serum Creatinine [facility] Start: 03-15-2025 BP Controlled (<130/80) BP Controlled (<130/80) [facility] Start: 03-15-2025 Creatinine measurement Serum Creatinine [facility] Start: 03-08-2025 BP Controlled (<130/80) BP Controlled (<130/80) [facility] Start: 02-22-2025 Hemoglobin A1c measurement HbA1C [facility] Start: 02-08-2025 BP Controlled (<130/80) BP Controlled (<130/80) [facility] Start: 02-02-2025 Complete blood count Hemoglobin/Hematocrit [facility] Start: 02-01-2025 BP Controlled (<130/80) BP Controlled (<130/80) [facility] Start: 02-01-2025 Complete blood count Hemoglobin/Hematocrit [facility] Start: 02-01-2025 Creatinine measurement Serum Creatinine [facility] Start: 01-18-2025 End: 01-18-2025 ambulatory Hematology/Oncolog y Comment on above: (SO)CBC/CMP(S)/UA(RAMO)MAG(PORT)/OV TODAY* OV(PORT)LAB EARLY/CH EMO TODAY* MASCI -SAME DAY Q3WK AVASTIN(PORT)LA B&OV EARLY* NO MON Start: 01-12-2025 Complete blood count Hemoglobin/Hematocrit [facility] Start: 01-12-2025 Creatinine measurement Serum Creatinine [facility] Start: 01-04-2025 BP Controlled (<130/80) BP Controlled (<130/80) [facility] Start: 01-04-2025 Complete blood count Hemoglobin/Hematocrit [facility] Start: 01-04-2025 Creatinine measurement Serum Creatinine [facility] Start: 01-02-2025 End: 01-02-2025 Patient encounter procedure Pulmonary Medicine Comment on above: 6 month follow up Start: 12-28-2024 End: 12-28-2024 ambulatory Hematology/Oncolog y Comment on above: (SO)CBC/CMP(S)/UA(RAMO)MAG(PORT)/OV TODAY* OV(PORT)LAB EARLY/CH EMO TODAY* MASCI -SAME DAY Q3WK AVASTIN(PORT)LA B&OV EARLY* NO MON Start: 12-20-2024 BP Controlled (<130/80) BP Controlled (<130/80) [facility] Start: 12-15-2024 Complete blood count Hemoglobin/Hematocrit [facility] Start: 12-12-2024 BP Controlled (<130/80) BP Controlled (<130/80) [facility] Start: 12-12-2024 Complete blood count Hemoglobin/Hematocrit [facility] Start: 12-12-2024 Creatinine measurement Serum Creatinine [facility] Start: 12-06-2024 End: 12-06-2024 ambulatory Hematology/Oncolog y Comment on above: (SO)CBC/CMP(S)/UA(RAMO)MAG(PORT)/OV TODAY* OV(PORT)LAB EARLY/CH EMO TODAY* MASCI -SAME DAY Q3WK AVASTIN(PORT)LA B&OV EARLY* NO MON Start: 11-23-2024 Complete blood count Hemoglobin/Hematocrit [facility] Start: 11-23-2024 Creatinine measurement Serum Creatinine [facility] Start: 11-18-2024 BP Controlled (<130/80) BP Controlled (<130/80) [facility] Start: 11-18-2024 Creatinine measurement Serum Creatinine [facility] Start: 11-16-2024 Complete blood count Hemoglobin/Hematocrit [facility] Start: 11-16-2024 End: 11-16-2024 ambulatory Hematology/Oncolog y Comment on above: (SO)CBC/CMP(S)/UA(RAMO)MAG(PORT)/OV TODAY* OV(PORT)LAB EARLY/CH EMO TODAY* MASCI -SAME DAY Q3WK AVASTIN(PORT)LA B&OV EARLY* NO MON Start: 11-02-2024 BP Controlled (<130/80) BP Controlled (<130/80) [facility] Start: 11-01-2024 End: 11-01-2024 ambulatory Hematology/Oncolog y Comment on above: (SO)CBC/CMP(S)/UA(RAMO)(PORT)/OV TODAY* OV(PORT)LAB EARLY/CH EMO TODAY* MASCI -SAME DAY Q3WK AVASTIN(PORT)LA B&OV EARLY* NO MON Start: 10-30-2024 Influenza vaccination [facility] Start: 10-25-2024 End: 10-25-2024 ambulatory Hematology/Oncolog y Comment on above: (SO)CBC/CMP(S)/UA(RAMO)(PORT)/OV TODAY* OV(PORT)LAB EARLY/CH EMO TODAY* MASCI -SAME DAY Q3WK AVASTIN(PORT)LA B&OV EARLY* NO MON (SO)CBC/CMP(S)/UA(RAMO )MAG(PORT)/OV TODAY* Start: 10-11-2024 End: 10-11-2024 ambulatory Hematology/Oncolog y Comment on above: (SO)CBC/CMP(S)/UA(RAMO)(PORT)/OV TODAY* OV(PORT)LAB EARLY/CH EMO TODAY* MASCI -SAME DAY Q3WK AVASTIN(PORT)LA B&OV EARLY* NO MON Start: 10-05-2024 End: 10-05-2024 ambulatory Hematology/Oncolog y Comment on above: (SO)CBC/CMP(S)/UA(RAMO)(PORT)/OV TODAY* OV(PORT)LAB EARLY/CH EMO TODAY* MASCI -SAME DAY Q3WK AVASTIN(PORT)LA B&OV EARLY* NO MON Start: 10-03-2024 End: 10-03-2024 ambulatory 10/03/2024 9:30 AM EDT Infusion Center Hematology/Oncology [address] [place] [address] Wstr, Lab/Port [facility] [address] [place] [address] port access* Hematology/Oncolog y Comment on above: port access* Start: 10-03-2024 End: 10-03-2024 Patient encounter procedure Cat Scan Comment on above: Endometrial cancer (HCC) [C54.1] Start: 09-14-2024 BP Controlled (<130/80) BP Controlled (<130/80) [facility] Start: 09-13-2024 End: 09-13-2024 ambulatory Hematology/Oncolog y Comment on above: (SO)CBC/CMP(S)/UA(RAMO)(PORT)/OV TODAY* OV(PORT)LAB EARLY/CH EMO TODAY* MASCI -SAME DAY Q3WK AVASTIN(PORT)LA B&OV EARLY* NO MON Start: 09-09-2024 Annual PCP Team Chronic Disease Visit Annual PCP Team Chronic Disease Visit [facility] Start: 09-09-2024 BP Controlled (<130/80) BP Controlled (<130/80) [facility] Start: 09-05-2024 End: 09-05-2024 Patient encounter procedure Pulmonary Medicine Comment on above: 3 month follow up 3 month follow up wi labs Start: 09-01-2024 Complete blood count Hemoglobin/Hematocrit [facility] Start: 09-01-2024 Creatinine measurement Serum Creatinine [facility] Start: 08-31-2024 Complete blood count Hemoglobin/Hematocrit [facility] Start: 08-31-2024 Creatinine measurement Serum Creatinine [facility] Start: 08-30-2024 Creatinine measurement Serum Creatinine [facility] Start: 08-29-2024 Creatinine measurement Serum Creatinine [facility] Start: 08-25-2024 End: 11-24-2024 Comprehensive metabolic 2000 panel - Serum or Plasma COMPREHENSIVE METABOLIC PANEL Lab Routine Type 2 diabetes mellitus without complication, with no history of insulin use (HCC) Expected: 08/25/2024, Expires: 11/24/2024 [facility] Work Phone: Comment on above: Expected: 08/25/2024, Expires: Start: 08-25-2024 End: 11-24-2024 Hemoglobin A1c in Blood HEMOGLOBIN A1C Lab Routine Type 2 diabetes mellitus without complication, with no history of insulin use (HCC) Expected: 08/25/2024, Expires: 11/24/2024 [facility] Comment on above: Expected: 08/25/2024, Expires: Start: 08-23-2024 Annual PCP Team Chronic Disease Visit Annual PCP Team Chronic Disease Visit [facility] Start: 08-23-2024 Anxiety Screening Anxiety Screening [facility] Start: 08-23-2024 Covid-19 Vaccine (#1) Covid-19 Vaccine (#1) [facility] Comment on above: Postponed from 1950 (Declined at t his time) Start: 08-23-2024 Depression Screening Depression Screening [facility] Start: 08-23-2024 RSV Vaccine (1 - 1-dose 60+ series) RSV Vaccine (1 - 1-dose 60+ series) [facility] Comment on above: Postponed from 2005 (Declined at t his time) Start: 08-23-2024 RSV Vaccine (1 - 1-dose 75+ series) RSV Vaccine (1 - 1-dose 75+ series) [facility] Comment on above: Postponed from 2020 (Declined at t his time) Start: 08-23-2024 Shingrix Vaccine (1 of 2) Shingrix Vaccine (1 of 2) [facility] Comment on above: Postponed from 1964 (Declined at t his time) Start: 08-23-2024 End: 08-23-2024 ambulatory Hematology/Oncolog y Comment on above: (SO)CBC/CMP(S)/UA(RAMO)(PORT)/OV TODAY* OV(PORT)LAB EARLY/CH EMO TODAY* MASCI -SAME DAY Q3WK AVASTIN(PORT)LA B&OV EARLY* NO MON Start: 08-09-2024 Creatinine measurement Serum Creatinine [facility] Start: 08-01-2024 End: 08-01-2024 ambulatory Hematology/Oncolog y Comment on above: CBC/CMP/UA(RAMO)(PORT)OV TODAY* OV(PORT)LAB EARLY/CH EMO TODAY* MASCI -SAME DAY Q3WK AVASTIN(PORT)LA B&OV EARLY* NO MON (SO)CBC/CMP(S)/UA(RAMO )(PORT)/OV TODAY* Start: 07-25-2024 End: 07-25-2024 ambulatory 07/25/2024 10:00 AM T [facility] Hematology/Oncology [address] [place] [address] CBC(PORT)D8 GEMZAR/AUTH EXP?* NO MON APPTS Hematology/Oncolog y Comment on above: CBC(PORT)D8 GEMZAR/AUTH EXP?* NO MON GABBIE TS Start: 07-18-2024 End: 07-18-2024 Patient encounter procedure Pulmonary Medicine Comment on above: 3 month follow up Start: 07-18-2024 End: 07-18-2024 ambulatory Hematology/Oncolog y Comment on above: CBC/CMP(PORT)OV TODAY* OV(PORT)LAB EARLY/CH EMO TODAY* MASCI SAME DAY-NO MON APPTS Q3WK GEMZAR(PORT) LA B&OV EARLY/AUTH EXP?* NO MON APPTS Start: 07-11-2024 End: 07-11-2024 ambulatory Hematology/Oncolog y Comment on above: STRAIGHTBACK START CBC/CMP/UA(RAMO)(PORT)Q 3WK AVASTIN* NO MON START CBC/CMP/UA(RAMO) (PORT)Q3WK AVASTIN* NO MON Start: 07-04-2024 End: 07-04-2024 ambulatory 07/04/2024 11:00 AM EDT Infusion Center Hematology/Oncology [address] [place] [id number] CBC(PORT)D8 GEMZAR/AUTH EXP?* NO MON APPTS Hematology/Oncolog y Comment on above: CBC(PORT)D8 GEMZAR/AUTH EXP?* NO MON GABBIE TS Start: 06-27-2024 End: 06-27-2024 ambulatory Hematology/Oncolog y Comment on above: CBC/CMP(PORT)OV TODAY* OV(PORT)LAB EARLY/CH EMO TODAY* MASCI SAME DAY-NO MON APPTS Q3WK GEMZAR(PORT) LA B&OV EARLY/AUTH EXP?* NO MON APPTS OV/ CT 06/20* OV/(PORT)CT 06/20* Start: 06-20-2024 End: 06-20-2024 Patient encounter procedure Cat Scan Comment on above: Endometrial cancer (HCC) [C54.1] Start: 06-20-2024 End: 06-20-2024 ambulatory Hematology/Oncolog y Comment on above: CBC/CMP* CBC/CMP(PORT)ACCESS FOR CT* Start: 06-14-2024 End: 06-14-2024 ambulatory 06/14/2024 9:50 AM EDT Visit (SP) Office Hematology/Oncology [address] [place] [address] Nora Branham DO [address] [place] [address] OV(PORT)LAB EARLY/CHEMO TODAY* MASCI SAME DAY-NO MON APPTS Hematology/Oncolog y Comment on above: OV(PORT)LAB EARLY/CHEMO TODAY* MASCI -NO MON APPTS Start: 06-13-2024 End: 06-13-2024 ambulatory 06/13/2024 11:00 AM EDT Infusion Center Hematology/Oncology [address] [place] [address] CBC(PORT)D8 GEMZAR/AUTH EXP?* NO MON APPTS Hematology/Oncolog y Comment on above: CBC(PORT)D8 GEMZAR/AUTH EXP?* NO MON GABBIE TS Start: 06-08-2024 End: 06-08-2024 ambulatory Hematology/Oncolog y Comment on above: Q3WK CARBO(PORT)/LAB & OV 06/07/AUTH EXP ? * Q3WK CARBO(PORT)/LAB & OV /9/AUTH EXP 12/05/24* Start: 06-07-2024 BP Controlled (<130/80) BP Controlled (<130/80) [facility] Start: 06-07-2024 Creatinine measurement Serum Creatinine [facility] Start: 06-07-2024 End: 06-07-2024 ambulatory Hematology/Oncolog y Comment on above: (SO)CBC/CMP(S)/MG(S)(PORT)/OV TODAY* OV(PORT)/LABS EARLY/ CHEMO 06/08* [facility] Start: 06-06-2024 End: 06-06-2024 ambulatory Hematology/Oncolog y Comment on above: CBC/CMP(PORT)OV TODAY* OV(PORT)LAB EARLY/CH EMO TODAY* MASCI SAME DAY-NO MON APPTS Q3WK GEMZAR(PORT) LA B&OV EARLY/AUTH EXP?* NO MON APPTS Start: 06-02-2024 End: 06-02-2024 Patient encounter procedure 06/02/2024 9:40 AM EDT Office Visit Cardiology [address] [place] [address] Endometrial cancer (HCC) [C54.1] Cardiology Comment on above: Endometrial cancer (HCC) [C54.1] Start: 06-01-2024 End: 06-01-2024 ambulatory Hematology/Oncolog y Comment on above: (SO)CBC/CMP(S)/MG(S)(PORT)/OV TODAY* OV(PORT)/LABS EARLY/ CHEMO TODAY* MASCI Q3WK CARBO(PORT)/LAB & OV EARLY/AUTH EXP 12/05/24* Start: 05-25-2024 End: 05-25-2024 Patient encounter procedure 05/25/2024 3:15 PM EDT Office Visit Pulmonary Medicine [address] [place], [place] [id number] Pamela Nelson MD [address] [place], [place] [id number] Recent hospitalization, acute respiratory failure, pneumonia, RSV, LFT abnormality Pulmonary Medicine Comment on above: Recent hospitalization, acute respirator y failure, pneumonia, RSV, LFT abnormality Start: 05-25-2024 End: 05-25-2024 Patient encounter procedure Family Medicine [facility] Comment on above: FOLLOW UP HOSP FOLLOW UP HOSP ([facility] Home Health asking for copy of notes to be faxed [phone] with current meds please) Start: 05-23-2024 End: 05-23-2024 ambulatory 05/23/2024 1:30 PM EDT Infusion Center Hematology/Oncology [address] [place], [place] [id number] CBC(PORT)D8 GEMZAR/AUTH EXP?* NO MON APPTS Hematology/Oncolog y Comment on above: CBC(PORT)D8 GEMZAR/AUTH EXP?* NO MON GABBIE TS Start: 05-18-2024 End: 05-18-2024 ambulatory Hematology/Oncolog y Comment on above: Q3WK CARBO(PORT)/LAB & OV 05/17/AUTH EXP ?* Q3WK CARBO(PORT)/LAB & OV /19/AUTH EXP 12/05/24* Start: 05-17-2024 End: 05-17-2024 ambulatory Hematology/Oncolog y Comment on above: (SO)CBC/CMP(S)/MG(S)(PORT)/OV TODAY* OV(PORT)/LABS EARLY/ CHEMO 05/18* [facility] Start: 05-16-2024 End: 05-16-2024 ambulatory Hematology/Oncolog y Comment on above: CBC/CMP(PORT)OV TODAY* Q3WK GEMZAR(PORT) LA B&OV EARLY/AUTH EXP?* NO MON APPTS CHAIRSIDE OV(PORT)LA B EARLY/CHEMO TODAY* MASCI SAME DAY-NO MON APPTS Start: 05-16-2024 End: 05-16-2024 Patient encounter procedure 05/16/2024 11:20 AM EDT Office Visit Cardiology [address] [place] [address] rescheduled from 04/27 Cardiology Comment on above: rescheduled from 04/27 Start: 05-11-2024 End: 05-11-2024 ambulatory 05/11/2024 2:30 PM EDT Infusion Center Hematology/Oncology [address] [place] [address] Q3WK CARBO(PORT)/LAB & OV 05/10/AUTH EXP 12/05/24* Hematology/Oncolog y Comment on above: Q3WK CARBO(PORT)/LAB & OV 05/10/AUTH EXP 12/05/24* Start: 05-10-2024 Complete blood count Hemoglobin/Hematocrit [facility] Start: 05-10-2024 Creatinine measurement Serum Creatinine [facility] Start: 05-10-2024 End: 05-10-2024 ambulatory Hematology/Oncolog y Comment on above: (SO)CBC/CMP(S)/MG(S)(PORT)/OV TODAY* OV(PORT)/LABS EARLY/ CHEMO 05/11* [facility] Start: 05-02-2024 End: 05-02-2024 ambulatory 05/02/2024 2:00 PM EST Infusion Center Hematology/Oncology [address] [place] [address] CBC(PORT)D8 GEMZAR/AUTH EXP?* NO MON APPTS Hematology/Oncolog y Comment on above: CBC(PORT)D8 GEMZAR/AUTH EXP?* NO MON GABBIE TS Start: 04-27-2024 End: 04-27-2024 Patient encounter procedure 04/27/2024 2:40 PM EST Office Visit Cardiology [address] [place] [address] Endometrial cancer (HCC) [C54.1] Cardiology Comment on above: Endometrial cancer (HCC) [C54.1] Start: 04-27-2024 End: 04-27-2024 ambulatory Hematology/Oncolog y Comment on above: Q3WK CARBO(PORT)/LAB & OV 04/26/AUTH EXP ?* Q3WK CARBO(PORT)/LAB & OV 04/26/AUTH EXP 12/05/24* Start: 04-26-2024 End: 04-26-2024 ambulatory Hematology/Oncolog y Comment on above: (SO)CBC/CMP(S)/MG(S)(PORT)/OV TODAY* OV(PORT)/LABS EARLY/ CHEMO 04/27* MASCI Start: 04-25-2024 End: 04-25-2024 ambulatory Hematology/Oncolog y Comment on above: START CBC/CMP(PORT)Q3WK GEMZAR/AUTH EXP? * NO MON APPTS START (SO)CBC/CMP(S) (PORT)Q3WK GEMZAR/AUTH EXP?* NO MON APPTS Start: 04-21-2024 End: 04-21-2024 ambulatory 04/21/2024 10:30 AM EST Infusion Center Hematology/Oncology [address] [place] [address] Wstr, Rn Unit Manager [facility] [address] [place] [address] CHEMO ED- Gemcitabine Hematology/Oncolog y Comment on above: CHEMO ED- Gemcitabine Start: 04-20-2024 End: 04-20-2024 ambulatory 04/20/2024 1:30 PM EST Infusion Center Hematology/Oncology [address] [place] [id number] Q3WK CARBO(PORT)/LAB & OV 04/19/AUTH EXP 12/05/24* Hematology/Oncolog y Comment on above: Q3WK CARBO(PORT)/LAB & OV EXP 12/05/24* Start: 04-19-2024 End: 04-19-2024 Patient encounter procedure 04/19/2024 10:30 AM EST Office Visit Pulmonary Medicine [address] [place] [address] Tatyana Rahman APRN.DIRECTOR MARKETING [address] [place] [address] 3 month follow up (no sooner availability with Dr. Nelson) Pulmonary Medicine Comment on above: 3 month follow up (no sooner availabilit y with Dr. Nelson) Start: 04-19-2024 End: 04-19-2024 ambulatory Hematology/Oncolog y Comment on above: (SO)CBC/CMP(S)/MG(S)(PORT)/OV TODAY* OV(PORT)/LABS EARLY/ CHEMO 04/20* MASCI 3mth Start: 04-14-2024 End: 04-14-2024 ambulatory 04/14/2024 3:10 PM EST Visit (SP) Office Hematology/Oncology [address] [place] [address] Nora Branham DO [address] [place] [address] OV(PORT)CT 2/10* OV PER 03/15 TE Hematology/Oncolog y Comment on above: OV(PORT)CT 210* OV PER 03/15 TE Start: 04-13-2024 Creatinine measurement Serum Creatinine [facility] Start: 04-10-2024 End: 04-10-2024 Patient encounter procedure Cat Scan Comment on above: Endometrial cancer (HCC) [C54.1] Start: 04-10-2024 End: 04-10-2024 ambulatory 04/10/2024 9:00 AM EST Infusion Center Hematology/Oncology [address] [place] [address] Wstr, Lab/Port Singh [facility] [address] [place] [address]* Hematology/Oncolog y Comment on above: ACCESS PORT FOR CT* Start: 04-07-2024 End: 04-07-2024 ambulatory 04/07/2024 10:30 AM EST [facility] Radiation Oncology [address] [place] [address] Patel Escalera MD [address] [place] [address] 4WK PHONE CALL Radiation Oncology Comment on above: 4WK PHONE CALL Start: 04-06-2024 End: 04-06-2024 ambulatory Hematology/Oncolog y Comment on above: Q3WK CARBO(PORT)/LAB & OV 04/05/AUTH EXP ? * Q3WK CARBO(PORT)/LAB & OV //AUTH EXP 12/05/24* Start: 04-06-2024 Complete blood count Hemoglobin/Hematocrit [facility] Start: 04-06-2024 Creatinine measurement Serum Creatinine [facility] Start: 04-05-2024 End: 04-05-2024 ambulatory Hematology/Oncolog y Comment on above: (SO)CBC/CMP(S)/MG(S)(PORT)/OV TODAY* OV(PORT)/LABS EARLY/ CHEMO 04/06* MASCI Start: 04-04-2024 End: 04-04-2024 Patient encounter procedure 04/04/2024 11:45 AM EST Office Visit Pulmonary Medicine [address] [place] [address] Pamela Nelson MD [address] [place] [address] 3 month follow up Pulmonary Medicine Comment on above: 3 month follow up Start: 04-04-2024 End: 04-04-2024 ambulatory 04/04/2024 11:00 AM EST Procedure PULM LAB [facility] WSTR [address] [place] [address] Wstr, Pulm Lab [facility] [address] [place] [address] 3mth PULM LAB [facility] WSTR Comment on above: 3mth Start: 04-02-2024 BP Controlled (<130/80) BP Controlled (<130/80) [facility] Start: 03-24-2024 Annual PCP Team Chronic Disease Visit Annual PCP Team Chronic Disease Visit [facility] Start: 03-20-2024 End: 03-20-2024 ambulatory 03/20/2024 8:30 AM EST Infusion Center Hematology/Oncology [address] [place] [address] Q3WK CARBO(PORT)/LAB & OV 03/15/AUTH EXP 12/05/24* Hematology/Oncolog y Comment on above: Q3WK CARBO(PORT)/LAB & OV 03/15/AUTH EXP 12/05/24* Start: 03-16-2024 End: 03-16-2024 ambulatory Hematology/Oncolog y Comment on above: Q3WK CARBO(PORT)/LAB & OV 03/15/AUTH EXP 03/27/24* Q3WK CARBO(PORT)/LAB & OV 03/15/AUTH EXP 12/05/24* Start: 03-16-2024 Complete blood count Hemoglobin/Hematocrit [facility] Start: 03-16-2024 Creatinine measurement Serum Creatinine [facility] Start: 03-15-2024 End: 03-15-2024 ambulatory Hematology/Oncolog y Comment on above: (SO)CBC/CMP(S)/MG(S)(PORT)/OV TODAY* OV(PORT)/LABS EARLY/ CHEMO 03/16* MASCI Start: 03-10-2024 End: 03-10-2024 Patient encounter procedure 03/10/2024 9:30 AM EST Appointment Radiation Oncology [address] [place] [address] Location: [facility] On[facility] Comment on above: Location: [facility] Start: 03-09-2024 End: 03-09-2024 ambulatory 03/09/2024 11:00 AM EST Infusion Center Hematology/Oncology [address] [place] [address] Q3WK CARBO(PORT)/LAB & OV 03/08/AUTH EXP 03/27/24* Hematology/Oncolog y Comment on above: Q3WK CARBO(PORT)/LAB & OV AUTH EXP * Start: 03-08-2024 End: 03-08-2024 ambulatory Hematology/Oncolog y Comment on above: (SO)CBC/CMP(S)/MG(S)(PORT)/OV TODAY* OV(PORT)/LABS EARLY/ CHEMO 03/09* MASCI Start: 03-08-2024 End: 03-08-2024 Patient encounter procedure Radiation Oncology Comment on above: Location: W-ON TREATMENT VISIT Location: [facility] Start: 03-06-2024 End: 03-06-2024 Patient encounter procedure 03/06/2024 9:30 AM EST Appointment Radiation Oncology [address] [place] [address] Location: [facility] Oncology Comment on above: Location: [facility] Start: 03-02-2024 End: 03-02-2024 Patient encounter procedure 03/02/2024 9:30 AM EST Appointment Radiation Oncology [address] [place] [address] Location: [facility] Radiation Oncology Comment on above: Location: [facility] Start: 03-01-2024 Advance Directive Discussion Advance Directive Discussion [facility] Start: 03-01-2024 Medicare Advantage Annual Wellness Visit Medicare Advantage Annual Wellness Visit [facility] Start: 02-29-2024 End: 02-29-2024 Patient encounter procedure Radiation Oncology Comment on above: Tentative Time Tentative Time - 9am or after Start: 02-24-2024 End: 02-24-2024 ambulatory 02/24/2024 2:30 PM EST Infusion Center Hematology/Oncology [address] [place] [address] Q3WK CARBO(PORT)/LAB & OV 02/20/AUTH EXP 03/27/24* Hematology/Oncolog y Comment on above: Q3WK CARBO(PORT)/LAB & OV 02/20/AUTH EXP 03/27/24* Start: 02-21-2024 End: 02-21-2024 ambulatory Hematology/Oncolog y Comment on above: (SO)CBC/CMP(S)/MG(S)(PORT)/OV TODAY* OV(PORT)/LABS EARLY/ CHEMO 02/23* MASCI Start: 02-19-2024 BP Controlled (<130/80) BP Controlled (<130/80) [facility] in Start: 02-19-2024 Complete blood count Hemoglobin/Hematocrit [facility] Start: 02-19-2024 Creatinine measurement Serum Creatinine [facility] Start: 02-17-2024 End: 02-17-2024 ambulatory 02/17/2024 2:30 PM EST Infusion Center Hematology/Oncology [address] [place] [address] Q3WK CARBO(PORT)/LAB & OV 02/15/AUTH EXP 03/27/24* Hematology/Oncolog y Comment on above: Q3WK CARBO(PORT)/LAB & OV 02/15/AUTH EXP 03/27/24* Start: 02-16-2024 End: 02-16-2024 ambulatory Hematology/Oncolog y Comment on above: CBC/CMP/MG(PORT)/OV TODAY* OV(PORT)/LABS EARLY/ CHEMO 02/16* MASCI (SO)CBC/CMP(S)/MG(S) (PORT)/OV TODAY* Start: 02-15-2024 End: 02-15-2024 Patient encounter procedure 02/15/2024 9:00 AM EST Office Visit Radiation Oncology [address] [place] [address] Patel Escalera MD [address] [place] [address] SBRT RT lower lung Radiation Oncology Comment on above: SBRT RT lower lung Start: 02-15-2024 End: 02-15-2024 Nursing evaluation of patient and report 02/15/2024 8:30 AM EST Nurse Visit Radiation Oncology [address] [place] [address] Wstr, Nurse Radt [facility] [address] [place] [phone] Location: W-NURSING Radiation Oncology Comment on above: Location: W-NURSING Start: 02-09-2024 End: 02-09-2024 Patient encounter procedure 02/09/2024 9:30 AM EST Office Visit Radiation Oncology [address] [place] [address] Patel Escalera MD [address] [place] [address] DEPUTY CITY CLERK/LUNG MASS/REF NORA BRANHAM* Radiation Oncology Comment on above: DEPUTY CITY CLERK/LUNG MASS/REF NORA BRANHAM* Start: 02-03-2024 BP Controlled (<130/80) BP Controlled (<130/80) [facility] Start: 02-03-2024 End: 05-04-2024 CBC W Auto Differential panel - Blood COMPLETE BLOOD COUNT AND DIFFERENTIAL Lab STAT Endometrial cancer (HCC) Carcinomatosis (HCC) Thrombocytopenia (HCC) Expected: 02/03/2024 (Approximate), Expires: 05/04/2024 [facility] Work Phone: Comment on above: Expected: 02/03/2024 (Approximate), Expi res: 05/04/2024 Start: 02-03-2024 Serum Creatinine Serum Creatinine [facility] Start: 02-03-2024 End: 02-03-2024 ambulatory Hematology/Oncolog y Comment on above: Q3WK CARBO(PORT)/LAB & OV 02/01/AUTH EXP 03/27/24* (SO)CBC/IN AT 11 DUE TO MAG/Q3WK CARBO/NEEDS MAG REPLACEMENT(PORT)/LAB & OV 02/01/AUTH EXP 03/27/24* Start: 02-02-2024 End: 02-02-2024 ambulatory Hematology/Oncolog y Comment on above: (SO)CBC/CMP(S)/MG(S)(PORT)/OV TODAY* OV(PORT)/LABS EARLY/ CHEMO 02/02* MASCI OV(PORT)/LABS EARLY/ CT 01/17/CHEMO 02/02* MASCI Start: 01-28-2024 End: 01-28-2024 ambulatory 01/28/2024 10:00 AM EST Infusion Center Hematology/Oncology [address] [place] [id number] Q3WK CARBO(PORT)/LAB & OV 01/25/AUTH EXP 03/27/24* Hematology/Oncolog y Comment on above: Q3WK CARBO(PORT)/LAB & OV 01/25/AUTH EXP 03/27/24* Start: 01-26-2024 End: 01-26-2024 ambulatory Hematology/Oncolog y Comment on above: CBC/CMP/MG(PORT)/OV TODAY* OV(PORT)/LABS EARLY/ CHEMO 01/27* MASCI (SO)CBC/CMP(S)/MG(S) (PORT)/OV TODAY* Start: 01-21-2024 End: 01-21-2024 ambulatory 01/21/2024 1:00 PM [facility] Cardiology [address] [place] [address] Farshad Marie MD [address] [place] [address] DX: Chronic systolic HF Cardiology Comment on above: DX: Chronic systolic HF Start: 01-18-2024 End: 01-18-2024 Patient encounter procedure Cat Scan Comment on above: Endometrial cancer (HCC) [C54.1]; Carcin omatosis (HCC) [C80.0]; Lung nodules [R91.8] Start: 01-13-2024 BP Controlled (<130/80) BP Controlled (<130/80) [facility] in Start: 01-13-2024 Hemoglobin/Hematocrit Hemoglobin/Hematocrit [facility] Start: 01-13-2024 Serum Creatinine Serum Creatinine [facility] Start: 01-13-2024 End: 01-13-2024 ambulatory Hematology/Oncolog y Comment on above: Q3WK CARBO(PORT)LAB EARLY?/AUTH EXP 03/27* Q3WK CARBO(PORT)/MG? LAB EARLY?/AUTH EXP 03/27/24* Start: 01-13-2024 End: 01-13-2024 ambulatory 01/13/2024 11:30 AM EST Infusion Center Hematology/Oncology [address] [place] [id number] Wstr, Lab/Port Singh [facility] [address] [place] [address] (SO)CBC/CMP(S)/MG(S)(PORT) /CHEMO TODAY - THIS DATE/TIME PER TE* Hematology/Oncolog y Comment on above: (SO)CBC/CMP(S)/MG(S)(PORT)/CHEMO TODAY - THIS DATE/TIME PER TE* Start: 01-08-2024 BP Controlled (<130/80) BP Controlled (<130/80) [facility] Start: 01-06-2024 End: 01-06-2024 ambulatory Hematology/Oncolog y Comment on above: Q3WK CARBO(PORT)/LAB & OV AUTH EXP ?* Q3WK CARBO(PORT)/LAB & OV 01/04/AUTH EXP 03/27/24* CBC(PER 12/12 TE)Q3W K CARBO(PORT)/LAB & OV 01/04/AUTH EXP 03/27/24* Start: 01-05-2024 End: 01-05-2024 ambulatory Hematology/Oncolog y Comment on above: CBC/CMP/MG(PORT)/OV TODAY* OV(PORT)/LABS EARLY/ CHEMO 01/05* MASCI Start: 01-02-2024 Glaucoma screening Dilated Retinal Exam [facility] Start: 12-31-2023 BP Controlled (<130/80) BP Controlled (<130/80) [facility] Start: 12-31-2023 Hemoglobin/Hematocrit Hemoglobin/Hematocrit [facility] Start: 12-31-2023 Serum Creatinine Serum Creatinine [facility] Start: 12-24-2023 Serum Creatinine Serum Creatinine [facility] Start: 12-23-2023 BP Controlled (<130/80) BP Controlled (<130/80) [facility] Start: 12-23-2023 Hemoglobin/Hematocrit Hemoglobin/Hematocrit [facility] Start: 12-23-2023 Serum Creatinine Serum Creatinine [facility] Start: 12-21-2023 End: 12-21-2023 Patient encounter procedure 12/21/2023 12:45 PM EDT Office Visit Pulmonary Medicine [address] [place], [place] [phone] Pamela Nelson MD [address] [place] [phone] Priority: Routine Pulmonary Medicine Comment on above: Priority: Routine Start: 12-18-2023 Hemoglobin/Hematocrit Hemoglobin/Hematocrit [facility] Start: 12-18-2023 Serum Creatinine Serum Creatinine [facility] Start: 12-16-2023 BP Controlled (<130/80) BP Controlled (<130/80) [facility] in Start: 12-16-2023 Serum Creatinine Serum Creatinine [facility] Start: 12-16-2023 End: 12-16-2023 ambulatory Hematology/Oncolog y Comment on above: Q3WK CARBO(PORT)/LAB & OV 12/13/AUTH EXP ?* Q3WK CARBO(PORT)/LAB & OV 12/13/AUTH EXP 03/27/24* Q3WK CARBO(PORT)/LAB & OV 12/12/AUTH EXP 03/27/24* REDRAW CBC/Q3WK CARB O(PORT)/LAB & OV 12/12/AUTH EXP 03/27/24* Start: 12-14-2023 End: 12-14-2023 ambulatory Hematology/Oncolog y Comment on above: CBC/CMP/MG(PORT)/OV TODAY* OV(PORT)/LABS EARLY/ CHEMO 12/14* MASCI Start: 12-13-2023 End: 12-13-2023 ambulatory Hematology/Oncolog y Comment on above: (SO)CBC/CMP(S)/MG(S)(PORT)/OV TODAY* pt requested date Start: 12-03-2023 End: 12-03-2023 Patient encounter procedure 12/03/2023 12:45 PM EDT Office Visit Pulmonary Medicine [address] [place] [id number] Pamela Nelson MD [address] [place] [address] Priority: Routine Pulmonary Medicine Comment on above: Priority: Routine Start: 12-02-2023 Hemoglobin/Hematocrit Hemoglobin/Hematocrit [facility] Start: 11-24-2023 End: 11-24-2023 ambulatory Hematology/Oncolog y Comment on above: START Q3WK CARBO(PORT)/LAB & OV 11/18/AUT H EXP ?* (SO)CBC/CMP(S) PORT START Q3WK CARBO(PORT)/LAB & OV EXP 03/27/24* Start: 11-24-2023 End: 11-24-2023 Patient encounter procedure [facility] [place] Comment on above: 3 mo f/u Annual Wellness - 3 mo f/u Annual medicare Well ness - 3 mo f/u Start: 11-19-2023 End: 11-19-2023 ambulatory 11/19/2023 2:30 PM EDT Visit (SP) Office Hematology/Oncology [address] [place], [place] [phone] Nora Branham DO [address] [facility] [address] [place] [phone] OV PER 11/09 TE* Hematology/Oncolog y Comment on above: OV PER 11/09 TE* Start: 11-19-2023 End: 02-18-2024 Chronic hepatitis differentiation between hepatitis B and C virus panel - Serum or Plasma [facility] Comment on above: Expected: 11/19/2023, Expires: 4 Start: 11-19-2023 End: 02-18-2024 Cobalamin (Vitamin B12) [Mass/volume] in Serum or Plasma [facility] Work Phone: Comment on above: Expected: 11/19/2023, Expires: 4 Start: 11-19-2023 End: 02-18-2024 Folate [Mass/volume] in Serum or Plasma [facility] Comment on above: Expected: 11/19/2023, Expires: 4 Start: 11-19-2023 End: 02-18-2024 Thyrotropin [Units/volume] in Serum or Plasma [facility] Comment on above: Expected: 11/19/2023, Expires: 4 Start: 11-18-2023 End: 11-18-2023 Admission to same day surgery center 11/18/2023 8:00 AM EDT - 11/18/2023 9:15 AM EDT Surgery Angio [address] [place] [address] Mendoza Lozano MD, MD [address] [place] [address] CORE NEEDLE BIOPSY LUNG OR MEDIASTINUM PERC INCLD IMAGING GUIDANCE WHEN PERFORMED Angio Comment on above: CORE NEEDLE BIOPSY LUNG OR MEDIASTINUM P ERC INCLD IMAGING GUIDANCE WHEN PERFORMED Start: 11-18-2023 End: 11-18-2023 CORE NEEDLE BIOPSY LUNG OR MEDIASTINUM PERC INCLD IMAGING GUIDANCE WHEN PERFORMED CORE NEEDLE BIOPSY LUNG OR MEDIASTINUM PERC INCLD IMAGING GUIDANCE WHEN PERFORMED Endometrial cancer (HCC) 11/18/2023 8:00 AM EDT ANGIO HB6 Start: 11-18-2023 Subsequent hospital visit by physician 11/18/2023 8:00 AM EDT Hospital Encounter Angio [address] [place] [address] Mendoza Lozano MD, [address] [place], [place] [phone] Endometrial cancer (HCC) [C54.1] Angio Comment on above: Endometrial cancer (HCC) [C54.1] Start: 11-12-2023 End: 02-11-2024 CBC panel - Blood by Automated count COMPLETE BLOOD COUNT Lab STAT Lung nodule seen on imaging study Expected: 11/12/2023, Expires: 02/11/2024 [facility] Work Phone: Comment on above: Expected: 11/12/2023, Expires: 4 Start: 11-12-2023 End: 02-11-2024 PT panel - Platelet poor plasma by Coagulation assay PROTHROMBIN TIME Lab STAT Lung nodule seen on imaging study Expected: 11/12/2023, Expires: 02/11/2024 [facility] Comment on above: Expected: 11/12/2023, Expires: 4 Start: 11-09-2023 End: 11-09-2023 Patient encounter procedure Mobile PET CT Comment on above: Lung nodules [R91.8]NM PET/CT SKULL-THIG H INITIAL Start: 11-05-2023 End: 11-05-2023 ambulatory 11/05/2023 8:30 AM EDT [facility] Cardiology [address] [place] [address] Farshad Marie MD [address] [place] [phone] Dx: Heart failure with mildly reduced ejection fraction Cardiology Comment on above: Dx: Heart failure with mildly reduced ej ection fraction Start: 11-03-2023 End: 11-03-2023 ambulatory 11/03/2023 9:50 AM EDT Visit (SP) Office Hematology/Oncology [address] [place], [place] [phone] Nora Branham DO [address] [place], [place] [phone] OV/CT 10/26* Hematology/Oncolog y Comment on above: OV/CT 10/26* Start: 10-31-2023 Influenza vaccination [facility] Start: 10-27-2023 End: 10-27-2023 Patient encounter procedure 10/27/2023 9:20 AM EDT Appointment Cat Scan [address] [place], [place] [phone] Endometrial cancer (HCC) [C54.1]; Lung nodule [R91.1]; 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] Cat Scan Comment on above: Endometrial cancer (HCC) [C54.1]; Lung n odule [R91.1]; 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] Start: 10-19-2023 End: 10-19-2023 Patient encounter procedure 10/19/2023 9:00 AM EDT Office Visit Pulmonary Medicine [address] [address] Ana María Velásquez APRN.DIRECTOR MARKETING [address] [phone] Testing follow up Pulmonary Medicine Comment on above: Testing follow up Start: 10-19-2023 End: 10-19-2023 ambulatory Pulmonary Medicine Comment on above: Lung nodules [R91.8] Start: 10-13-2023 End: 10-13-2023 Follow-up encounter 10/13/2023 3:30 PM EDT [facility] Cardiology [address] [place] [address] Farshad Marie MD [address] [place], [place] [phone] VIRTUAL FOLLOW UP Cardiology Comment on above: VIRTUAL FOLLOW UP Start: 10-13-2023 End: 01-12-2024 Hemoglobin A1c in Blood HEMOGLOBIN A1C Lab Routine Type 2 diabetes mellitus with other specified complication, unspecified whether fdc insulin use (HCC) Expected: 10/13/2023, Expires: 01/12/2024 [facility] Comment on above: Expected: 10/13/2023, Expires: Start: 10-13-2023 End: 01-12-2024 Natriuretic peptide.B prohormone N-Terminal [Mass/volume] in Serum or Plasma NT PRO BNP Lab Routine Heart failure with mildly reduced ejection fraction (HCC) Expected: 10/13/2023, Expires: 01/12/2024 [facility] Comment on above: Expected: 10/13/2023, Expires: Start: 10-13-2023 End: 01-12-2024 Renal function 2000 panel - Serum or Plasma RENAL FUNCTION PANEL Lab Routine Heart failure with mildly reduced ejection fraction (HCC) Expected: 10/13/2023, Expires: 01/12/2024 [facility] Work Phone: Comment on above: Expected: 10/13/2023, Expires: Start: 10-12-2023 End: 10-12-2023 Patient encounter procedure Mobile PET CT Comment on above: Lung nodules [R91.8] Start: 09-15-2023 End: 09-15-2023 Patient encounter procedure 09/15/2023 1:00 PM EDT Office Visit Pulmonary Medicine [address] [phone] Go Araujo MD [address] [place], [place] [phone] Lung nodule Pulmonary Medicine Comment on above: Lung nodule Start: 09-10-2023 End: 09-10-2023 Patient encounter procedure 09/10/2023 9:20 AM EDT Office Visit [facility] [place] [address] [place] [address] Billie Hwang APRN.DIRECTOR MARKETING [address] [place] [address] Hospital follow up (TCM thru 09/15) [facility] [place] Comment on above: Hospital follow up (TCM thru 09/15) Start: 08-24-2023 End: 08-24-2023 Patient encounter procedure 08/24/2023 2:20 PM EDT Office Visit Family Lissette [place] [address] [place] [address] Vinh Van MD [address] [place] [address] Annual Wellness [facility] [place] Comment on above: Annual Wellness Start: 08-24-2023 End: 11-23-2023 Hemoglobin A1c in Blood HEMOGLOBIN A1C Lab Routine Type 2 diabetes mellitus without complication, with no history of insulin use (HCC) Expected: 08/24/2023, Expires: 11/23/2023 [facility] Work Phone: Comment on above: Expected: 08/24/2023, Expires: Start: 08-24-2023 End: 11-23-2023 Lipid 1996 panel - Serum or Plasma LIPID PANEL BASIC Lab Routine Type 2 diabetes mellitus without complication, with no history of insulin use (HCC) Hyperlipidemia, unspecified hyperlipidemia type Expected: 08/24/2023, Expires: 11/23/2023 [facility] Comment on above: Expected: 08/24/2023, Expires: Start: 08-24-2023 End: 08-24-2023 ambulatory 08/24/2023 8:50 AM EDT Visit (SP) Office Hematology/Oncology [address] [place] [address] Nora Branham DO [address] [place] [address] 2MO OV* Hematology/Oncolog y Comment on above: 2MO OV* Start: 08-13-2023 BP CONTROLLED (<130/80) BP CONTROLLED (<130/80) [facility] Start: 08-10-2023 End: 08-10-2023 Patient encounter procedure Cat Scan Comment on above: Endometrial cancer (HCC) [C54.1] Start: 08-10-2023 End: 08-10-2023 ambulatory Hematology/Oncolog y Comment on above: CBC/CMP (PORT) (SO)CBC/CMP(S) (PORT ) Start: 08-03-2023 End: 08-03-2023 ambulatory 08/03/2023 8:30 AM EDT [facility] Cardiology [address] [place] [address] Farshad Marie MD [address] [place], [place] [phone] Dx: Heart failure with mildly reduced ejection fraction (HCC) Cardiology Comment on above: Dx: Heart failure with mildly reduced ej ection fraction (HCC) Start: 06-06-2023 ANNUAL PCP TEAM CHRONIC DISEASE VISIT ANNUAL PCP TEAM CHRONIC DISEASE VISIT [facility] Start: 06-06-2023 BP CONTROLLED (<130/80) BP CONTROLLED (<130/80) [facility] Start: 05-26-2023 End: 08-25-2023 Renal function 2000 panel - Serum or Plasma RENAL FUNCTION PANEL Lab Routine Essential hypertension, benign Expected: 05/26/2023, Expires: 08/25/2023 [facility] Work Phone: Comment on above: Expected: 05/26/2023, Expires: Start: 04-12-2023 Patient discharge [facility] Start: 04-12-2023 Oxygen therapy [facility] Start: 04-10-2023 Ambulation without limitation [facility] Start: 04-10-2023 Assessment of risk of venous thromboembolism [facility] Start: 04-10-2023 Cardiac monitoring [facility] Start: 04-10-2023 Care regimes management [facility] Start: 04-10-2023 Insertion of catheter into peripheral vein [facility] Start: 04-10-2023 Measuring intake and output [facility] Start: 04-10-2023 Notification of physician [facility] Start: 04-10-2023 Providing care according to standard [facility] Start: 04-10-2023 Referral to occupational therapist [facility] Start: 04-10-2023 Referral to service [facility] Start: 04-10-2023 [facility] Start: 04-10-2023 Verification routine [facility] Start: 04-10-2023 Hospital admission, emergency, from emergency room, medical nature [facility] Start: 04-10-2023 Admission procedure [facility] Start: 04-10-2023 Venous catheter care management [facility] Start: 04-10-2023 [facility] Start: 04-10-2023 End: 04-10-2023 Blood culture [facility] Start: 04-10-2023 [facility] Start: 04-10-2023 Bacteria identified in Blood by Culture Blood Culture [facility] Start: 04-10-2023 Bacteria identified in Urine by Culture [facility] Start: 04-09-2023 ANNUAL PCP TEAM CHRONIC DISEASE VISIT ANNUAL PCP TEAM CHRONIC DISEASE VISIT [facility] Start: 04-02-2023 End: 07-02-2023 HIGH SENSITIVITY TROPONIN T HIGH SENSITIVITY TROPONIN T Lab Routine Obesity, Class III, BMI 40-49.9 (morbid obesity) (HCC) 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) Heart failure with mildly reduced ejection fraction (HCC) Expected: 04/02/2023, Expires: 07/02/2023 [facility] Work Phone: Comment on above: Expected: 04/02/2023, Expires: Start: 04-02-2023 End: 07-02-2023 Natriuretic peptide.B prohormone N-Terminal [Mass/volume] in Serum or Plasma NT PRO BNP Lab Routine Obesity, Class III, BMI 40-49.9 (morbid obesity) (HCC) 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) Heart failure with mildly reduced ejection fraction (HCC) Expected: 04/02/2023, Expires: 07/02/2023 [facility] Work Phone: Comment on above: Expected: 04/02/2023, Expires: Start: 04-02-2023 End: 07-02-2023 Renal function 2000 panel - Serum or Plasma RENAL FUNCTION PANEL Lab Routine Obesity, Class III, BMI 40-49.9 (morbid obesity) (HCC) 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) Heart failure with mildly reduced ejection fraction (HCC) Expected: 04/02/2023, Expires: 07/02/2023 [facility] Work Phone: Comment on above: Expected: 04/02/2023, Expires: Start: 03-14-2023 Blood chemistry [facility] Start: 03-13-2023 Blood chemistry [facility] Start: 03-12-2023 Patient discharge [facility] Start: 03-11-2023 Venous catheter care management [facility] Start: 03-11-2023 [facility] Start: 03-10-2023 Following clinical pathway protocol [facility] Start: 03-10-2023 Transfusion of blood product [facility] Start: 03-10-2023 Assessment of risk of venous thromboembolism [facility] Start: 03-10-2023 Fall prevention [facility] Start: 03-10-2023 Incentive spirometry [facility] Start: 03-10-2023 Insertion of catheter into peripheral vein [facility] Start: 03-10-2023 Introduction of urinary catheter [facility] Start: 03-10-2023 Measuring intake and output [facility] Start: 03-10-2023 Oxygen therapy [facility] Start: 03-10-2023 Providing care according to standard [facility] Start: 03-10-2023 Provision of activity privileges [facility] Start: 03-10-2023 Referral to occupational therapist [facility] Start: 03-10-2023 Referral to service [facility] Start: 03-10-2023 [facility] Start: 03-10-2023 Verification routine [facility] Start: 03-10-2023 Admission procedure [facility] Start: 03-10-2023 Blood culture [facility] Start: 03-10-2023 End: 03-10-2023 [facility] Start: 03-10-2023 Blood culture [facility] Start: 03-10-2023 Bacteria identified in Blood by Culture Blood Culture [facility] Start: 03-10-2023 Bacteria identified in Urine by Culture Urine Culture [facility] Start: 03-10-2023 Patient referral to dietitian [facility] Start: 03-01-2023 Advance Directive Discussion Advance Directive Discussion [facility] Start: 03-01-2023 Behavioral Health Screening Behavioral Health Screening [facility] Start: 03-01-2023 Depression Assessment Depression Assessment [facility] Start: 02-01-2023 Blood chemistry [facility] Start: 01-31-2023 Blood chemistry [facility] Start: 01-30-2023 Blood chemistry [facility] Start: 01-29-2023 Blood chemistry [facility] Start: 01-26-2023 Patient discharge [facility] Start: 01-25-2023 Bacteria identified in Blood by Culture Blood Culture [facility] Start: 01-25-2023 End: 01-25-2023 Blood culture [facility] Start: 01-25-2023 [facility] Start: 01-25-2023 Venous catheter care management [facility] Start: 01-25-2023 Blood chemistry [facility] Start: 01-25-2023 Prothrombin time [facility] Start: 01-25-2023 Thyroid stimulating hormone measurement [facility] Start: 01-25-2023 [facility] Start: 01-24-2023 Care regimes management [facility] Start: 01-24-2023 Notification of physician [facility] Start: 01-24-2023 [facility] Start: 01-24-2023 Referral to occupational therapist [facility] Start: 01-24-2023 Referral to service [facility] Start: 01-24-2023 Following clinical pathway protocol [facility] Start: 01-24-2023 Assessment of risk of venous thromboembolism [facility] Start: 01-24-2023 Insertion of catheter into peripheral vein [facility] Start: 01-24-2023 Measuring intake and output [facility] Start: 01-24-2023 Providing care according to standard [facility] Start: 01-24-2023 Verification routine [facility] Start: 01-24-2023 [facility] Start: 01-24-2023 Hospital admission, emergency, from emergency room, medical nature [facility] Start: 01-24-2023 Admission procedure [facility] Start: 01-24-2023 End: 01-24-2023 [facility] Start: 01-24-2023 Bacteria identified in Urine by Culture Urine Culture [facility] Start: 12-29-2022 ANNUAL PCP TEAM CHRONIC DISEASE VISIT ANNUAL PCP TEAM CHRONIC DISEASE VISIT [facility] Start: 12-15-2022 End: 02-14-2023 Basic metabolic 2000 panel - Serum or Plasma BASIC METABOLIC PNL Lab STAT Endometrial cancer (HCC) Expected: 12/15/2022, Expires: 02/14/2023 [facility] Work Phone: Comment on above: Expected: 12/15/2022, Expires: 3 Start: 10-30-2022 Influenza vaccination [facility] Start: 10-22-2022 Hemoglobin A1c measurement HbA1C [facility] Start: 10-22-2022 Hemoglobin A1c/Hemoglobin.total in Blood HBA1C [facility] Start: 10-08-2022 BP CONTROLLED (<130/80) BP CONTROLLED (<130/80) [facility] Start: 09-26-2022 ANNUAL PCP TEAM CHRONIC DISEASE VISIT ANNUAL PCP TEAM CHRONIC DISEASE VISIT [facility] Start: 09-26-2022 Hepatitis B screening URINE ALBUMIN:CREATININE RATIO [facility] Start: 09-26-2022 Hepatitis B surface antibody level LDL CHOLESTEROL [facility] Start: 08-16-2022 End: 10-16-2022 Methylmalonate [Moles/volume] in Serum or Plasma METHYLMALONIC ACID Lab Routine Low serum vitamin B12 Expected: 08/16/2022, Expires: 10/16/2022 [facility] Work Phone: Comment on above: Expected: 08/16/2022, Expires: 3 Start: 08-12-2022 End: 10-12-2022 CREATININE BLD CREATININE BLD Lab Routine Endometrial cancer (HCC) Expected: 08/12/2022, Expires: 10/12/2022 [facility] Work Phone: Comment on above: Expected: 08/12/2022, Expires: 3 Start: 06-17-2022 End: 08-17-2022 Cancer Ag 125 [Units/volume] in Serum or Plasma CA 125 BLD Lab Routine Adnexal cyst Vaginal bleeding Abnormal CT of the abdomen Expected: 06/17/2022, Expires: 08/17/2022 [facility] Work Phone: Comment on above: Expected: 06/17/2022, Expires: 3 Start: 06-06-2022 3 comp foot exam completed DIABETIC FOOT EXAM [facility] Start: 06-06-2022 ANNUAL PCP TEAM CHRONIC DISEASE VISIT ANNUAL PCP TEAM CHRONIC DISEASE VISIT [facility] Start: 06-06-2022 COVID-19 VACCINE (#1) COVID-19 VACCINE (#1) [facility] Comment on above: Postponed from 1950 (Declined at t his time) Postponed from 05/20 (Declined at this time) Start: 06-06-2022 COVID-19 VACCINE (1) COVID-19 VACCINE (1) [facility] Comment on above: Postponed from 1950 (Declined at t his time) Start: 06-06-2022 Diabetic foot examination Diabetic Foot Exam [facility] Start: 06-06-2022 SHINGRIX VACCINE (1 of 2) SHINGRIX VACCINE (1 of 2) [facility] Comment on above: Postponed from 11/21/1995 (Declined at t his time) Start: 04-09-2022 End: 06-09-2022 CBC W Auto Differential panel - Blood CBC + DIFF Lab Routine Flank pain Expected: 04/09/2022, Expires: 06/09/2022 [facility] Work Phone: Comment on above: Expected: 04/09/2022, Expires: 3 Start: 04-09-2022 End: 06-09-2022 Comprehensive metabolic 2000 panel - Serum or Plasma COMP METABOLIC PANEL Lab Routine Flank pain Expected: 04/09/2022, Expires: 06/09/2022 [facility] Work Phone: Comment on above: Expected: 04/09/2022, Expires: 3 Start: 04-04-2022 End: 06-04-2022 Comprehensive metabolic 2000 panel - Serum or Plasma COMP METABOLIC PANEL Lab Routine Type 2 diabetes mellitus without complication, with no history of insulin use (HCC) Expected: 04/04/2022, Expires: 06/04/2022 [facility] Work Phone: Comment on above: Expected: 04/04/2022, Expires: 3 Start: 04-04-2022 End: 06-04-2022 Hemoglobin A1c in Blood HGB A1C Lab Routine Type 2 diabetes mellitus without complication, with no history of insulin use (HCC) Expected: 04/04/2022, Expires: 06/04/2022 [facility] Work Phone: Comment on above: Expected: 04/04/2022, Expires: 3 Start: 03-31-2022 Hemoglobin A1c/Hemoglobin.total in Blood HBA1C [facility] Start: 03-01-2022 ADVANCE DIRECTIVE DISCUSSION ADVANCE DIRECTIVE DISCUSSION [facility] Start: 03-01-2022 DEPRESSION ASSESSMENT DEPRESSION ASSESSMENT [facility] Start: 12-29-2021 End: 02-28-2022 Comprehensive metabolic 2000 panel - Serum or Plasma [facility] Work Phone: Comment on above: Expected: 12/29/2021, Expires: 2 Start: 12-29-2021 End: 02-28-2022 Hemoglobin A1c in Blood [facility] Work Phone: Comment on above: Expected: 12/29/2021, Expires: 2 Start: 12-27-2021 Hemoglobin A1c/Hemoglobin.total in Blood HBA1C [facility] Start: 12-02-2021 End: 02-01-2022 LIPID PANEL BASIC LIPID PANEL BASIC Lab Routine Hyperlipidemia, unspecified hyperlipidemia type Expected: 12/02/2021 (Approximate), Expires: 02/01/2022 [facility] Work Phone: Comment on above: Expected: 12/02/2021 (Approximate), Expi res: 02/01/2022 Start: 11-29-2021 Glaucoma screening Dilated Retinal Exam [facility] Start: 11-29-2021 Hepatitis C antibody, confirmatory test DILATED RETINAL EXAM [facility] Start: 10-30-2021 Influenza vaccination [facility] Start: 09-26-2021 End: 11-26-2021 ALBUMIN/CREAT RATIO RND UR [facility] Work Phone: Comment on above: Expected: 09/26/2021, Expires: 2 Start: 09-26-2021 End: 11-26-2021 CBC W Auto Differential panel - Blood [facility] Work Phone: Comment on above: Expected: 09/26/2021, Expires: 2 Start: 09-26-2021 End: 11-26-2021 Comprehensive metabolic 2000 panel - Serum or Plasma [facility] Work Phone: Comment on above: Expected: 09/26/2021, Expires: 2 Start: 09-26-2021 End: 11-26-2021 Hemoglobin A1c in Blood [facility] Work Phone: Comment on above: Expected: 09/26/2021, Expires: 2 Start: 09-26-2021 End: 11-26-2021 Lipid 1996 panel - Serum or Plasma [facility] Work Phone: Comment on above: Expected: 09/26/2021, Expires: 2 Start: 07-11-2021 Adult depression screening assessment DEPRESSION SCREENING [facility] Start: 07-11-2021 ANNUAL PCP TEAM CHRONIC DISEASE VISIT ANNUAL PCP TEAM CHRONIC DISEASE VISIT [facility] Start: 06-02-2021 End: 08-02-2021 ALBUMIN/CREAT RATIO RND UR ALBUMIN/CREAT RATIO RND UR Lab Routine Type 2 diabetes mellitus without complication, without long-term current use of insulin (HCC) Expected: 06/02/2021, Expires: 08/02/2021 [facility] Work Phone: Comment on above: Expected: 06/02/2021, Expires: 2 Start: 06-02-2021 End: 08-02-2021 Comprehensive metabolic 2000 panel - Serum or Plasma COMP METABOLIC PANEL Lab Routine Hyperlipidemia, unspecified hyperlipidemia type Essential hypertension, benign Expected: 06/02/2021, Expires: 08/02/2021 [facility] Work Phone: Comment on above: Expected: 06/02/2021, Expires: 2 Start: 06-02-2021 End: 08-02-2021 Hemoglobin A1c/Hemoglobin.total in Blood HGB A1C Lab Routine Type 2 diabetes mellitus without complication, without long-term current use of insulin (HCC) Expected: 06/02/2021, Expires: 08/02/2021 [facility] Work Phone: Comment on above: Expected: 06/02/2021, Expires: 2 Start: 05-27-2021 3 comp foot exam completed DIABETIC FOOT EXAM [facility] Start: 05-27-2021 BP CONTROLLED (<130/80) BP CONTROLLED (<130/80) [facility] Start: 03-28-2021 Hepatitis B screening URINE ALBUMIN:CREATININE RATIO [facility] Start: 03-28-2021 Hepatitis B surface antibody level LDL CHOLESTEROL [facility] Start: 03-01-2021 ADVANCE DIRECTIVE DISCUSSION ADVANCE DIRECTIVE DISCUSSION [facility] Start: 03-01-2021 DEPRESSION ASSESSMENT DEPRESSION ASSESSMENT [facility] Start: 01-07-2021 Hepatitis C antibody, confirmatory test DILATED RETINAL EXAM [facility] Start: 2020 RSV Vaccine (1 - 1-dose 75+ series) RSV Vaccine (1 - 1-dose 75+ series) [facility] Start: 11-05-2020 Colonoscopy COLONOSCOPY [facility] Start: 11-05-2020 COLORECTAL CANCER SCREENING COLORECTAL CANCER SCREENING [facility] Start: 10-11-2020 Hemoglobin A1c/Hemoglobin.total in Blood HBA1C [facility] Start: 01-07-2016 Urine microalbumin profile DTAP,TDAP,TD (1 - Tdap) [facility] Start: 2005 Hepatitis B Vaccine (1 of 3 - Risk 3-dose series) Hepatitis B Vaccine (1 of 3 - Risk 3-dose series) [facility] Start: 2005 RSV Vaccine (1 - 1-dose 60+ series) RSV Vaccine (1 - 1-dose 60+ series) [facility] Start: 11-21-1995 SHINGRIX VACCINE (1 of 2) SHINGRIX VACCINE (1 of 2) [facility] Start: 1990 COLOGUARD (FIT-DNA) COLOGUARD (FIT-DNA) [facility] Start: [address] COLONOGRAPHY [facility] Start: 1990 FECAL OCCULT BLOOD FECAL OCCULT BLOOD [facility] Start: 1990 SIGMOIDOSCOPY SIGMOIDOSCOPY [facility] Start: 1964 SHINGRIX VACCINE (1 of 2) SHINGRIX VACCINE (1 of 2) [facility] Start: 1956 Screening for malignant neoplasm of cervix Cervical Cancer Screening [facility] Start: 1950 COVID-19 VACCINE (#1) COVID-19 VACCINE (#1) [facility] Start: 1950 COVID-19 VACCINE (1) COVID-19 VACCINE (1) [facility] Start: 05-20-1946 COVID-19 VACCINE (#1) COVID-19 VACCINE (#1) [facility] ACETYLCHOLINE REC BI NDING AB ACETYLCHOLINE REC BINDING AB Lab Routine Asthenia Chemotherapy-induced cardiomyopathy (HCC) Muscle weakness 12/30/2022 3:07 PM EDT [facility] Work Phone: Alanine aminotransfe rase [Enzymatic activity/volume] in Serum or Plasma [facility] Alanine aminotransfe rase [Enzymatic activity/volume] in Serum or Plasma [facility] Albumin [Mass/volume ] in Serum or Plasma [facility] Albumin [Mass/volume ] in Serum or Plasma [facility] Alkaline phosphatase [Enzymatic activity/volume] in Serum or Plasma [facility] Alkaline phosphatase [Enzymatic activity/volume] in Serum or Plasma [facility] Anion gap measurement [facility] Anion gap measurement [facility] Aspartate aminotransferase [Enzymatic activity/volume] in Serum or Plasma [facility] Aspartate aminotransferase [Enzymatic activity/volume] in Serum or Plasma [facility] Bacteria identified in Urine by Culture URINE CULTURE Microbiology Routine Acute cystitis with hematuria 04/09/2022 2:40 PM EST [facility] Work Phone: Bacteria identified in Urine by Culture URINE CULTURE Microbiology Routine Abdominal cramping 06/05/2022 12:35 PM [facility] Work Phone: Bacteria identified in Urine by Culture URINE CULTURE Microbiology Routine Surgery follow-up examination 08/12/2022 3:48 PM [facility] Work Phone: Bilirubin, total measurement [facility] Bilirubin, total measurement [facility] Bilirubin.direct [Mass/volume] in Serum or Plasma [facility] BUN/Creatinine ratio [facility] BUN/Creatinine ratio [facility] Calcium [Mass/volume ] in Serum or Plasma [facility] Calcium [Mass/volume ] in Serum or Plasma [facility] Cancer Ag 125 [Units/volume] in Serum or Plasma CA 125 BLD Lab Routine Endometrial cancer (HCC) Malaise and fatigue 12/17/2022 10:23 AM [facility] Work Phone: Cancer Ag 125 [Units/volume] in Serum or Plasma CA 125 BLD Lab Routine Endometrial cancer (HCC) Malaise and fatigue 12/22/2022 8:35 AM [facility] Work Phone: Cancer Ag 125 [Units/volume] in Serum or Plasma CA 125 BLD Lab Routine Endometrial cancer (HCC) Malaise and fatigue 01/12/2023 8:33 AM [facility] Work Phone: Cancer Ag 125 [Units/volume] in Serum or Plasma CA 125 BLD Lab Routine Endometrial cancer (HCC) Malaise and fatigue 02/02/2023 9:14 AM [facility] Work Phone: Cancer Ag 125 [Units/volume] in Serum or Plasma CA 125 BLD Lab Routine Endometrial cancer (HCC) Malaise and fatigue 04/06/2023 11:05 AM [facility] Work Phone: Carbon dioxide, tota l [Moles/volume] in Serum or Plasma [facility] Carbon dioxide, tota l [Moles/volume] in Serum or Plasma [facility] Chloride [Moles/volu me] in Serum or Plasma [facility] Chloride [Moles/volu me] in Serum or Plasma [facility] Cortisol [Mass/volum e] in Serum or Plasma CORTISOL BLD Lab Routine Endometrial cancer (HCC) Malaise and fatigue 12/17/2022 10:23 AM T [facility] Work Phone: Cortisol [Mass/volum e] in Serum or Plasma CORTISOL BLD Lab Routine Endometrial cancer (HCC) Malaise and fatigue 12/22/2022 8:35 AM EDT [facility] Work Phone: Cortisol [Mass/volum e] in Serum or Plasma CORTISOL BLD Lab Routine Endometrial cancer (HCC) Malaise and fatigue 01/12/2023 8:33 AM [facility] Work Phone: Cortisol [Mass/volum e] in Serum or Plasma CORTISOL BLD Lab Routine Endometrial cancer (HCC) Malaise and fatigue 02/02/2023 9:14 AM [facility] Work Phone: Cortisol [Mass/volum e] in Serum or Plasma CORTISOL BLD Lab Routine Endometrial cancer (HCC) Malaise and fatigue 04/06/2023 11:05 AM [facility] Work Phone: Creatinine [Moles/vo lume] in Serum or Plasma [facility] Creatinine [Moles/vo lume] in Serum or Plasma [facility] End: 07-11-2023 Ct abdomen & pelvis w/contrast material CT ABD/PEL W IVCON Radiology STAT Abnormal ultrasound Adnexal cyst 1 Occurrences starting 06/11/2022 until 07/11/2023 [facility] Work Phone: Comment on above: 1 Occurrences starting 06/11/2022 until 07/11/2023 End: 09-12-2023 Ct abdomen & pelvis w/contrast material CT ABD/PEL W IVCON Radiology Routine Endometrial cancer (HCC) 1 Occurrences starting 08/12/2022 until 09/12/2023 [facility] Work Phone: Comment on above: 1 Occurrences starting 08/12/2022 until 09/12/2023 End: 11-14-2023 Ct abdomen & pelvis w/contrast material CT ABD/PEL W IVCON Radiology Routine Endometrial cancer (HCC) 1 Occurrences starting 10/13/2022 until 11/14/2023 [facility] Work Phone: Comment on above: 1 Occurrences starting 10/13/2022 until 11/14/2023 End: 07-07-2024 CT Abdomen and Pelvis W contrast IV CT ABD/PEL W IVCON Radiology Routine Endometrial cancer (HCC) 1 Occurrences starting 06/08/2023 until 07/07/2024 [facility] Work Phone: Comment on above: 1 Occurrences starting 06/08/2023 until 07/07/2024 CT Abdomen and Pelvi s W contrast IV CT ABD/PEL W IVCON Radiology Routine Endometrial cancer (HCC) 08/10/2023 10:07 AM EDT [facility] Work Phone: End: 02-03-2025 CT Abdomen and Pelvis W contrast IV CT ABD/PEL W IVCON Radiology Routine Endometrial cancer (HCC) Carcinomatosis (HCC) Lung nodules 1 Occurrences starting 01/05/2024 until 02/03/2025 [facility] Work Phone: Comment on above: 1 Occurrences starting 01/05/2024 until 02/03/2025 CT Abdomen and Pelvi s W contrast IV CT ABD/PEL W IVCON Radiology Routine Endometrial cancer (HCC) Carcinomatosis (HCC) Lung nodules 01/18/2024 12:06 PM EST [facility] Work Phone: End: 04-15-2025 CT Abdomen and Pelvis W contrast IV CT ABD/PEL W IVCON Radiology Routine Endometrial cancer (HCC) Carcinomatosis (HCC) 1 Occurrences starting 03/15/2024 until 04/15/2025 [facility] Comment on above: 1 Occurrences starting 03/15/2024 until 04/15/2025 CT Abdomen and Pelvi s W contrast IV CT ABD/PEL W IVCON Radiology Routine Endometrial cancer (HCC) Carcinomatosis (HCC) 04/10/2024 11:02 AM EST [facility] End: 06-23-2025 CT Abdomen and Pelvis W contrast IV CT ABD/PEL W IVCON Radiology Routine Endometrial cancer (HCC) Carcinomatosis (HCC) 1 Occurrences starting 05/23/2024 until 06/23/2025 [facility] Comment on above: 1 Occurrences starting 05/23/2024 until 06/23/2025 CT Abdomen and Pelvi s W contrast IV CT ABD/PEL W IVCON Radiology Routine Endometrial cancer (HCC) Carcinomatosis (HCC) 06/20/2024 11:09 AM [facility] End: 09-22-2025 CT Abdomen and Pelvis W contrast IV CT ABD/PEL W IVCON Radiology Routine Endometrial cancer (HCC) 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) 1 Occurrences starting 08/23/2024 until 09/22/2025 [facility] Work Phone: Comment on above: 1 Occurrences starting 08/23/2024 until 09/22/2025 End: 07-07-2024 CT Chest W contrast IV CT CHEST W IVCON Radiology Routine Endometrial cancer (HCC) 1 Occurrences starting 06/08/2023 until 07/07/2024 [facility] Work Phone: Comment on above: 1 Occurrences starting 06/08/2023 until 07/07/2024 CT Chest W contrast IV CT CHEST W IVCON Radiology Routine Endometrial cancer (HCC) 08/10/2023 10:07 AM [facility] End: 02-03-2025 CT Chest W contrast IV CT CHEST W IVCON Radiology Routine Endometrial cancer (HCC) Carcinomatosis (HCC) Lung nodules 1 Occurrences starting 01/05/2024 until 02/03/2025 [facility] Comment on above: 1 Occurrences starting 01/05/2024 until 02/03/2025 CT Chest W contrast IV CT CHEST W IVCON Radiology Routine Endometrial cancer (HCC) Carcinomatosis (HCC) Lung nodules 01/18/2024 12:06 PM [facility] End: 04-14-2025 CT Chest W contrast IV CT CHEST W IVCON Radiology Routine Endometrial cancer (HCC) Carcinomatosis (HCC) 1 Occurrences starting 03/15/2024 until 04/14/2025 [facility] Work Phone: Comment on above: 1 Occurrences starting 03/15/2024 until 04/14/2025 CT Chest W contrast IV CT CHEST W IVCON Radiology Routine Endometrial cancer (HCC) Carcinomatosis (HCC) 04/10/2024 11:02 AM [facility] Work Phone: End: 06-22-2025 CT Chest W contrast IV CT CHEST W IVCON Radiology Routine Endometrial cancer (HCC) Carcinomatosis (HCC) Lung nodules 1 Occurrences starting 05/23/2024 until 06/22/2025 [facility] Work Phone: Comment on above: 1 Occurrences starting 05/23/2024 until 06/22/2025 CT Chest W contrast IV CT CHEST W IVCON Radiology Routine Endometrial cancer (HCC) Carcinomatosis (HCC) Lung nodules 06/20/2024 11:09 AM EDT [facility] Work Phone: End: 09-22-2025 CT Chest W contrast IV CT CHEST W IVCON Radiology Routine Endometrial cancer (HCC) 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) 1 Occurrences starting 08/23/2024 until 09/22/2025 [facility] Comment on above: 1 Occurrences starting 08/23/2024 until 09/22/2025 End: 09-12-2023 CT CHEST W IVCON CT CHEST W IVCON Radiology Routine Endometrial cancer (HCC) 1 Occurrences starting 08/12/2022 until 09/12/2023 [facility] Work Phone: Comment on above: 1 Occurrences starting 08/12/2022 until 09/12/2023 End: 11-12-2023 CT CHEST W IVCON CT CHEST W IVCON Radiology Routine Endometrial cancer (HCC) 1 Occurrences starting 10/13/2022 until 11/12/2023 [facility] Work Phone: Comment on above: 1 Occurrences starting 10/13/2022 until 11/12/2023 End: 09-24-2024 CT Chest WO contrast CT CHEST WO IVCON Radiology Routine Endometrial cancer (HCC) Lung nodule Secondary malignancy of iliac lymph nodes (HCC) 1 Occurrences starting 08/26/2023 until 09/24/2024 [facility] Work Phone: Comment on above: 1 Occurrences starting 08/26/2023 until 09/24/2024 CT Chest WO contrast CT CHEST WO IVCON Radiology Routine Endometrial cancer (HCC) Lung nodule Secondary malignancy of iliac lymph nodes (HCC) 10/27/2023 9:52 AM T [facility] Work Phone: CT Guidance for radi ation treatment of Unspecified body region CT SIM PLANNING RADIATION ONCOLOGY Radiology Routine Secondary malignant neoplasm of right lung (HCC) Ordered: 02/14/2024 [facility] Work Phone: Comment on above: Ordered: 02/14/2024 CT SIM PLANNING RADI ATION ONCOLOGY CT SIM PLANNING RADIATION ONCOLOGY Radiology Routine Endometrial cancer (HCC) Ordered: 01/13/2023 [facility] Work Phone: Comment on above: Ordered: 01/13/2023 End: 12-24-2023 ECG COMPLETE ECG COMPLETE ECG Routine Endometrial cancer (HCC) 1 Occurrences starting 12/23/2022 until 12/24/2023 [facility] Work Phone: Comment on above: 1 Occurrences starting 12/23/2022 until 12/24/2023 End: 12-23-2023 ECG COMPLETE ECG COMPLETE ECG Routine Neurogenic orthostatic hypotension (HCC) 1 Occurrences starting 12/22/2022 until 12/23/2023 [facility] Work Phone: Comment on above: 1 Occurrences starting 12/22/2022 until 12/23/2023 End: 02-03-2024 ECG COMPLETE ECG COMPLETE ECG Routine Cardiomyopathy, nonischemic (HCC) 1 Occurrences starting 02/02/2023 until 02/03/2024 [facility] Work Phone: Comment on above: 1 Occurrences starting 02/02/2023 until 02/03/2024 End: 02-19-2024 ECG COMPLETE ECG COMPLETE ECG Routine Type 2 diabetes mellitus without complication, with no history of insulin use (HCC) 1 Occurrences starting 02/18/2023 until 02/19/2024 [facility] Work Phone: Comment on above: 1 Occurrences starting 02/18/2023 until 02/19/2024 End: 12-23-2023 Echocardiography ECHO Cardiology STAT Neurogenic orthostatic hypotension (HCC) Encounter for monitoring cardiotoxic drug therapy 1 Occurrences starting 12/22/2022 until 12/23/2023 [facility] Work Phone: Comment on above: 1 Occurrences starting 12/22/2022 until 12/23/2023 End: 02-03-2024 Echocardiography ECHO Cardiology Routine Cardiomyopathy, nonischemic (HCC) 1 Occurrences starting 02/02/2023 until 02/03/2024 [facility] Work Phone: Comment on above: 1 Occurrences starting 02/02/2023 until 02/03/2024 End: 04-14-2025 Echocardiography ECHO Cardiology Routine Endometrial cancer (HCC) Carcinomatosis (HCC) Drug-induced cardiomyopathy (HCC) 1 Occurrences starting 04/14/2024 until 04/14/2025 [facility] Work Phone: Comment on above: 1 Occurrences starting 04/14/2024 until 04/14/2025 Glucose [Mass/volume ] in Serum or Plasma [facility] Glucose [Mass/volume ] in Serum or Plasma [facility] Guidance for biopsy of Lung IMAGING GUIDED BIOPSY LUNG Radiology Routine Endometrial cancer (HCC) Secondary malignancy of iliac lymph nodes (HCC) Lung nodule Ordered: 08/24/2023 [facility] Comment on above: Ordered: 08/24/2023 Guidance for biopsy of Lung IMAGING GUIDED BIOPSY LUNG Radiology Routine Endometrial cancer (HCC) Secondary malignancy of iliac lymph nodes (HCC) Ordered: 11/10/2023 [facility] Work Phone: Comment on above: Ordered: 11/10/2023 Guidance for biopsy of Lung IMAGING GUIDED BIOPSY LUNG Radiology Routine Endometrial cancer (HCC) Secondary malignancy of iliac lymph nodes (HCC) Ordered: 11/12/2023 [facility] Comment on above: Ordered: 11/12/2023 Hematocrit [Volume Fraction] of Blood [facility] Hematocrit [Volume Fraction] of Blood [facility] Hemoglobin [Mass/vol ume] in Blood [facility] Hemoglobin [Mass/vol ume] in Blood [facility] Hemoglobin A1c in Blood HEMOGLOB IN A1C Lab Routine Type 2 diabetes mellitus without complication, with no history of insulin use (HCC) 08/23/2024 10:26 AM EDT [facility] Work Phone: Hepatitis B virus co re Ab [Presence] in Serum HEPATITIS B CORE ANTIBODY TOTAL Lab Routine Carcinomatosis (HCC) Macrocytic anemia 11/19/2023 3:13 PM EDT [facility] Hepatitis B virus collazo rface Ab [Presence] in Serum HEPATITIS B SURFACE ANTIBODY Lab Routine Carcinomatosis (HCC) Macrocytic anemia 11/19/2023 3:13 PM EDT [facility] Hepatitis B virus collazo rface Ag [Presence] in Serum HEPATITIS B SURFACE ANTIGEN Lab Routine Carcinomatosis (HCC) Macrocytic anemia 11/19/2023 3:13 PM EDT [facility] Hepatitis C virus Ab [Presence] in Serum HEPATITIS C ANTIBODY IA WITH CONFIRMATION Lab Routine Carcinomatosis (HCC) Macrocytic anemia 11/19/2023 3:13 PM EDT [facility] HIGH SENSITIVITY TRO PONIN T HIGH SENSITIVITY TROPONIN T Lab Routine Obesity, Class III, BMI 40-49.9 (morbid obesity) (HCC) 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) Heart failure with mildly reduced ejection fraction (HCC) 04/13/2023 8:43 AM EST [facility] Work Phone: INR in Blood by Coagulation assay [facility] Lactic acid measurement [facility] Leukocytes [#/volume ] in Blood [facility] Leukocytes [#/volume ] in Blood [facility] End: 10-14-2024 LUNG DIFFUSION CAPACITY (DLCO) LUNG DIFFUSION CAPACITY (DLCO) PFT Routine Lung nodules 1 Occurrences starting 09/15/2023 until 10/14/2024 [facility] Comment on above: 1 Occurrences starting 09/15/2023 until 10/14/2024 End: 10-14-2024 LUNG VOLUMES LUNG VOLUMES PFT Routine Lung nodules 1 Occurrences starting 09/15/2023 until 10/14/2024 [facility] Comment on above: 1 Occurrences starting 09/15/2023 until 10/14/2024 Magnesium [Mass/volu me] in Serum or Plasma [facility] Magnesium [Mass/volu me] in Serum or Plasma [facility] Mean corpuscular hemoglobin concentration determination [facility] Mean corpuscular hemoglobin concentration determination [facility] Mean corpuscular hemoglobin determination [facility] Mean corpuscular hemoglobin determination [facility] Measurement of renal function [facility] Measurement of renal function [facility] End: 05-01-2024 MRI CARDIAC MORPH FUNC WO/W IVCON MRI CARDIAC MORPH FUNC WO/W IVCON Radiology Routine Obesity, Class III, BMI 40-49.9 (morbid obesity) (HCC) 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) Heart failure with mildly reduced ejection fraction (HCC) Cardiomyopathy, unspecified type (HCC) Acute myocarditis, unspecified myocarditis type 1 Occurrences starting 04/02/2023 until 05/01/2024 [facility] Work Phone: Comment on above: 1 Occurrences starting 04/02/2023 until 05/01/2024 End: 05-01-2024 MRI CARDIAC VELOCITY FLOW MAP MRI CARDIAC VELOCITY FLOW MAP Radiology Routine Cardiomyopathy, unspecified type (HCC) Acute myocarditis, unspecified myocarditis type 1 Occurrences starting 04/02/2023 until 05/01/2024 [facility] Work Phone: Comment on above: 1 Occurrences starting 04/02/2023 until 05/01/2024 Natriuretic peptide. B prohormone N-Terminal [Mass/volume] in Serum or Plasma NT PRO BNP Lab Routine Obesity, Class III, BMI 40-49.9 (morbid obesity) (HCC) 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 ([facility]) Heart failure with mildly reduced ejection fraction ([facility]) 04/13/2023 8:43 AM EST [facility] Work Phone: Neutrophil count [facility] Neutrophil count [facility] Neutrophil percent differential count [facility] Neutrophil percent differential count [facility] End: 01-22-2024 NM CARDIAC PERF STRESS/PHARM NM CARDIAC PERF STRESS/PHARM Radiology STAT Abnormal electrocardiogram Type 2 diabetes mellitus without complication, with no history of insulin use (HCC) Endometrial cancer (HCC) Encounter for monitoring cardiotoxic drug therapy 1 Occurrences starting 12/23/2022 until 01/22/2024 [facility] Work Phone: Comment on above: 1 Occurrences starting 12/23/2022 until 01/22/2024 OXIMETRY - NOCTURNAL OXIMETRY - NOCTURNAL Procedures Routine Chronic hypoxemic respiratory failure (HCC) Ordered: 04/19/2024 [facility] Work Phone: Comment on above: Ordered: 04/19/2024 Patient Education ED Fall Prevention [facility] Work Phone: Patient referral [facility] Work Phone: End: 10-14-2024 PET+CT Guidance for localization of tumor of Skull base to mid-thigh-- W [id number] IV NM PET/CT SKULL-THIGH INITIAL Radiology Routine Lung nodules 1 Occurrences starting 09/15/2023 until 10/14/2024 [facility] Work Phone: Comment on above: 1 Occurrences starting 09/15/2023 until 10/14/2024 Platelets [#/volume] in Blood [facility] Platelets [#/volume] in Blood [facility] End: 08-31-2024 Polysomnogram POLYSOMNOGRAM (PSG) Procedures Routine Obesity hypoventilation syndrome (HCC) 1 Occurrences starting 09/01/2023 until 08/31/2024 [facility] Comment on above: 1 Occurrences starting 09/01/2023 until 08/31/2024 Potassium [Moles/vol ume] in Serum or Plasma [facility] Potassium [Moles/vol ume] in Serum or Plasma [facility] Red blood cell count [facility] Red blood cell count [facility] Red cell distributio n width determination [facility] Red cell distributio n width determination [facility] End: 06-06-2022 Screening colonoscopy COLONOSCOPY SCREENING Endoscopy Routine Special screening for malignant neoplasms, colon 1 Occurrences starting 06/06/2021 until 06/06/2022 [facility] Work Phone: Comment on above: 1 Occurrences starting 06/06/2021 until 06/06/2022 Sodium [Moles/volume ] in Serum or Plasma [facility] Sodium [Moles/volume ] in Serum or Plasma [facility] End: 09-30-2024 SPIROMETRY WITH DILATOR IF OBSTRUCTED SPIROMETRY WITH DILATOR IF OBSTRUCTED PFT Routine SOB (shortness of breath) 1 Occurrences starting 09/01/2023 until 09/30/2024 [facility] Work Phone: Comment on above: 1 Occurrences starting 09/01/2023 until 09/30/2024 End: 01-19-2025 SPIROMETRY WITH DILATOR IF OBSTRUCTED SPIROMETRY WITH DILATOR IF OBSTRUCTED PFT Routine 1 Occurrences starting 12/21/2023 until 01/19/2025 [facility] Work Phone: Comment on above: 1 Occurrences starting 12/21/2023 until 01/19/2025 SPIROMETRY WITH DILA TOR IF OBSTRUCTED SPIROMETRY WITH DILATOR IF OBSTRUCTED PFT Routine 04/19/2024 10:06 AM [facility] Work Phone: SURGICAL PATHOLOGY [facility] Work Phone: Comment on above: Release Upon Ordering for 1 Occurrences starting 12/02/2021, 1 completed Thyrotropin [Units/volume] in Serum or Plasma TSH BLD Lab Routine Endometrial cancer (HCC) Malaise and fatigue 12/17/2022 10:23 AM [facility] Work Phone: Thyrotropin [Units/volume] in Serum or Plasma TSH BLD Lab Routine Endometrial cancer (HCC) Malaise and fatigue 12/22/2022 8:35 AM [facility] Work Phone: Thyrotropin [Units/volume] in Serum or Plasma TSH BLD Lab Routine Endometrial cancer (HCC) Malaise and fatigue 01/12/2023 8:33 AM [facility] Work Phone: Thyrotropin [Units/volume] in Serum or Plasma TSH BLD Lab Routine Endometrial cancer (HCC) Malaise and fatigue 02/02/2023 9:14 AM [facility] Work Phone: Thyrotropin [Units/volume] in Serum or Plasma TSH BLD Lab Routine Endometrial cancer (HCC) Malaise and fatigue 04/06/2023 11:05 AM [facility] Work Phone: Thyroxine (T4) free [Mass/volume] in Serum or Plasma T4 FREE/FREE THYROX Lab Routine Endometrial cancer (HCC) Malaise and fatigue 12/17/2022 10:23 AM [facility] Work Phone: Thyroxine (T4) free [Mass/volume] in Serum or Plasma T4 FREE/FREE THYROX Lab Routine Endometrial cancer (HCC) Malaise and fatigue 12/22/2022 8:35 AM [facility] Work Phone: Thyroxine (T4) free [Mass/volume] in Serum or Plasma T4 FREE/FREE THYROX Lab Routine Endometrial cancer (HCC) Malaise and fatigue 01/12/2023 8:33 AM [facility] Work Phone: Thyroxine (T4) free [Mass/volume] in Serum or Plasma T4 FREE/FREE THYROX Lab Routine Endometrial cancer (HCC) Malaise and fatigue 02/02/2023 9:14 AM [facility] Work Phone: Thyroxine (T4) free [Mass/volume] in Serum or Plasma T4 FREE/FREE THYROX Lab Routine Endometrial cancer (HCC) Malaise and fatigue 04/06/2023 11:05 AM [facility] Work Phone: Total protein measurement [facility] Total protein measurement [facility] Urea nitrogen [Mass/volume] in Serum or Plasma [facility] Urea nitrogen [Mass/volume] in Serum or Plasma [facility] Urinalysis complete panel - Urine URINALYSIS, WITH MICROSCOPIC Lab Routine Acute cystitis with hematuria 04/09/2022 2:40 PM [facility] Work Phone: End: 05-09-2023 US KIDNEY/BLADDER US KIDNEY/BLADDER Radiology STAT Flank pain 1 Occurrences starting 04/09/2022 until 05/09/2023 [facility] Work Phone: Comment on above: 1 Occurrences starting 04/09/2022 until 05/09/2023 End: 05-09-2023 Us pelvic nonobstetric image dcmtn limited/f/u US FEMALE PELVIS TRANSABD LTD Radiology STAT Vaginal bleeding 1 Occurrences starting 04/09/2022 until 05/09/2023 [facility] Work Phone: Comment on above: 1 Occurrences starting 04/09/2022 until 05/09/2023 End: 07-17-2023 Us pelvic nonobstetric image dcmtn limited/f/u US FEMALE PELVIS TRANSABD LTD Radiology STAT Adnexal cyst Vaginal bleeding Abnormal CT of the abdomen 1 Occurrences starting 06/17/2022 until 07/17/2023 [facility] Work Phone: Comment on above: 1 Occurrences starting 06/17/2022 until 07/17/2023 End: 05-09-2023 Us transvaginal US FEMALE PELVIS TRANSVAG Radiology STAT Vaginal bleeding 1 Occurrences starting 04/09/2022 until 05/09/2023 [facility] Work Phone: Comment on above: 1 Occurrences starting 04/09/2022 until 05/09/2023 End: 07-17-2023 Us transvaginal US FEMALE PELVIS TRANSVAG Radiology STAT Adnexal cyst Vaginal bleeding Abnormal CT of the abdomen 1 Occurrences starting 06/17/2022 until 07/17/2023 [facility] Work Phone: Comment on above: 1 Occurrences starting 06/17/2022 until 07/17/2023 End: 09-22-2024 XR Pelvis and Hip - left AP and Lateral frog XR HIP GENERAL 3V PELV/AP/LAT LEFT Radiology Routine Endometrial cancer (HCC) Secondary malignancy of iliac lymph nodes (HCC) Left hip pain 1 Occurrences starting 08/24/2023 until 09/22/2024 [facility] Work Phone: Comment on above: 1 Occurrences starting 08/24/2023 until 09/22/2024 XR Pelvis and Hip - left AP and Lateral frog XR HIP GENERAL 3V PELV/AP/LAT LEFT Radiology Routine Endometrial cancer (HCC) Secondary malignancy of iliac lymph nodes (HCC) Left hip pain 08/24/2023 9:33 AM EDT [facility] CATH [facility] Immunizations Immunization Date Immunization Notes Care Provider Fa rodney 06-06-2021 tetanus toxoid, redu arlette diphtheria toxoid, and acellular pertussis vaccine, adsorbed Billie Hwang [employer].DIRECTOR MARKETING Work Phone: [facility] 11-19-[address] Vinh Van Work Phone: [facility] 03-10-2019 influenza virus vacc ine, unspecified formulation Treatment Wstr Work Phone: [facility] 01-06-2016 influenza, high dose seasonal, preservative-free Supa Matute [employer] CONSULTANT.DIRECTOR MARKETING Work Phone: [facility] 01-06-2016 pneumococcal polysaccharide vaccine, 23 valent Supa Matute [employer]SU[employer] CONSULTANT.DIRECTOR MARKETING Work Phone: [facility] 01-06-2016 tetanus and diphther ia toxoids, adsorbed, preservative free, for adult use (2 Lf of tetanus toxoid and 2 Lf of diphtheria toxoid) Dr. Vinh Van Work Phone: [facility] 01-06-2016 tetanus and diphther ia toxoids, adsorbed, preservative free, for adult use (5 Lf of tetanus toxoid and 2 Lf of diphtheria toxoid) Supa Matute [employer]SUITE CONSULTANT.DIRECTOR MARKETING Work Phone: [facility] 10-18-2014 pneumococcal conjuga te vaccine, 13 valent Supa Matute [employer]SUITE CONSULTANT.DIRECTOR MARKETING Work Phone: [facility] 12-24-2011 influenza virus vacc ine, unspecified formulation Supa Matute [employer]SUITE CONSULTANT.DIRECTOR MARKETING Work Phone: [facility] 02-17-2011 influenza virus vacc ine, unspecified formulation Supa Matute [employer]SUITE CONSULTANT.DIRECTOR MARKETING Work Phone: [facility] 01-14-2010 influenza virus vacc ine, unspecified formulation Supa Romanil NETSUITE CONSULTANT.DIRECTOR MARKETING Work Phone: [facility] 12-18-2008 influenza virus vacc ine, unspecified formulation Supa Romanil NETSUITE CONSULTANT.DIRECTOR MARKETING Work Phone: [facility] Work Phone: 12-30-2002 influenza virus vacc ine, unspecified formulation Supa Nitin NETSUITE CONSULTANT.DIRECTOR MARKETING Work Phone: [facility] Work Phone: 12-30-2002 pneumococcal polysaccharide vaccine, 23 valent Supa Matute [employer]SUITE CONSULTANT.DIRECTOR MARKETING Work Phone: [facility] Work Phone: Payers Date Payer Category Payer Self-pay [id number] 2017 Medicare (Managed Care) [place] O Member Subscriber Plan / Payer (Effective 2017-Present) Name: Pricila Hooker Relation to Subscriber: Self Name: Pricila Hooker Payer ID: [id number] (NAIC) Group ID: [id number] Type: HMO Address: [address] [place] [id number] 2017 Unknown ANTHRICHARD DEGROOT [facility] S AND BLUE SHIELD [place] [facility] [id number] 2017-Present [phone] [address] [place] [address] [facility] [id number] 2017 Unknown [id number] 2017 Medicare [id number] Unknown ANTHEM [id number] Unknown [id number]. 2.462 Unknown [id number] [id number]. 2.462 Unknown [id number] [id number]. 2.462 Unknown [id number] [id number]. 2.462 Unknown [id number] [id number]. 2.462 Unknown [id number] [id number]. 2.462 Unknown [id number] 2.16.840.1.381793.3.579. 2.462 Unknown [id number] [id number]. 2.462 Unknown [id number] 2.16.840.1.433991.3.579. 2.462 Unknown [id number] 2.16.840.1.876210.3.579. 2.462 Unknown [id number] [id number]. 2.462 Unknown [id number] [id number]. 2.462 Unknown [id number] [id number]. 2.462 Unknown [id number] 2.16.840.1.531974.3.579. 2.462 Unknown [id number] [id number]. 2.462 Unknown [id number] [id number]. 2.462 Unknown [id number] [id number]. 2.462 Unknown [id number]. 2.462 Social History Date Type Detail Facility Start: 11-05-2017 End: 12-21-2023 Tobacco smoking status NHIS Ex-smoker [facility] Work Phone: Start: 11-06-1947 End: 11-05-1977 History of tobacco use Current smoker [facility] Work Phone: Start: 11-06-1947 End: 11-05-1977 History of tobacco use Cigarette Smoker [facility] Work Phone: Start: 07-11-2020 End: 08-01-2024 Alcohol intake Current non-drinker of alcohol (finding) [facility] Start: 1945 Sex Assigned At Not on file [facility] Start: 04-27-2020 End: 12-29-2021 Exposure to SARS-CoV-2 (event) Not sure [facility] Start: 11-05-2017 End: 07-15-2022 Cigarettes smoked current (pack per day) - Reported 0.5 [facility] Start: 11-05-2017 End: 12-21-2023 Tobacco use and exposure Smokeless tobacco non-user [facility] Start: 07-15-2022 End: 08-19-2022 Tobacco use panel [facility] Start: 01-31-2012 National Score (1-10 0), lower number is lower risk 51 [facility] Start: 01-24-2023 End: 04-10-2023 Tobacco smoking status LAIS Unknown if ever smoked [facility] Start: 1945 Sex Assigned At Female W [facility] Has the [place], Button, or KDS threatened to shut off services in your home in past 12Mo No [facility] Are you now , , , , never or living with a partner? [facility] How often to you hav e a drink containing alcohol? Never [facility] How hard is it for y ou to pay for the very basics like food, housing, medical care, and heating Not very hard [facility] Do you feel stress - tense, restless, nervous, or anxious, or unable to sleep at night because your mind is troubled all the time - these days [OSQ] To some extent [facility] (I/We) worried wheth er (my/our) food would run out before (I/we) got money to buy more. Never true [facility] Start: 09-13-2024 End: 10-25-2024 Alcoholic beverage intake Ex-drinker (finding) [facility] Medical Equipment Procedure Code Equipment Code Equipment Origin al Text Equipment Identifier Dates Leno Bn Endur Sst 40gm Med Vsc - [id number] Start: 02-16-2011 Comment on above: Description: DePuy M V Bone Cement Leno Bn Endur Sst 40gm Med Vsc - [id number] Start: 05-11-2011 Comment on above: Description: SMART S ET MV BONE CEMENT Ext Stem 30mm 15 mm Leno Tib - [id number] Start: 02-16-2011 Comment on above: Description: tibial stem cemented Ext Stem 30mm 15 mm Leno Tib - [id number] Start: 05-11-2011 Comment on above: Description: Tibial Cemented Stem Comp Fem 4 Lt Ps Leno Sig - [id number] Start: 02-16-2011 Comment on above: Description: femoral posterior stabilized cemented Comp Tibtry 4 Kn Leno Mdlr Sig - [id number] Start: 02-16-2011 Comment on above: Description: tibial tray fixed bearing modular cocr 4 Ins Tib 5 10mm K n Cocr Uhmw - [id number] Start: 02-16-2011 Comment on above: Description: tibial insert fixed bearing stabilized Comp Fem 4 Rt Kn Post - [id number] Start: 05-11-2011 Comment on above: Description: Cemente d Posterior Stab Ins Tib 5 10mm K n Cocr Uhmw - [id number] Start: 05-11-2011 Comment on above: Description: Tibial Inserted Fixed Bearing Stabilized Comp Tibtry 4 Kn Leno Mdlr Sig - [id number] Start: 05-11-2011 Comment on above: Description: Tibial Tray Fixee Bearing Modular COCR Dome Pat 38mm Pf c Sig Std Kn - [id number] Start: 02-16-2011 Comment on above: Description: oval do me patella Dome Pat 38mm Pf c Sig Std Kn - [id number] Start: 05-11-2011 Comment on above: Description: oval do me patella-3 peg [id number] Start: 03-26-2020 End: 10-08-2021 Comment on above: Test blood sugar(s) 1 times daily. Dx: Other DM Code E11.65 Insulin: No Test one time daily, Insulin Dep? No E11.9 DM 2 Port Powerport M ri 8fr Plastic Polyurethane Implantable Infusion - [id number] Start: 09-02-2022 Goals Date Patient Goal Desired Activity /State Personal health goal Functional Status Date Assessment Result Facility 10-25-2024 Total score [AUDIT-C] 0 10/26/19 25 9:31 AM EDT Russell Xiong MA [facility] 05-09-2024 Are you deaf, or do you have serious difficulty hearing No [facility] 05-09-2024 Are you blind, or do you have serious difficulty seeing, even when wearing glasses No [facility] 05-09-2024 Do you have serious difficulty walking or climbing stairs Yes [facility] 05-09-2024 Do you have difficul ty dressing or bathing Yes [facility] 05-09-2024 Because of a physica l, mental, or emotional condition, do you have difficulty doing errands alone such as visiting a physician's office or shopping Yes [facility] 09-02-2023 Are you deaf, or do you have serious difficulty hearing No 09/02/2023 3:40 PM EDT Constanza Romero RN No [facility] 09-02-2023 Are you blind, or do you have serious difficulty seeing, even when wearing glasses No 09/02/2023 3:40 PM EDT Constanza Romero RN No [facility] 09-02-2023 Do you have serious difficulty walking or climbing stairs Yes 09/02/2023 3:40 PM EDT Constanza Romero RN Yes [facility] 09-02-2023 Do you have difficul ty dressing or bathing No 09/02/2023 3:40 PM EDT Constanza Romero RN No [facility] 09-02-2023 Because of a physica l, mental, or emotional condition, do you have difficulty doing errands alone such as visiting a physician's office or shopping Yes 09/02/2023 3:40 PM EDT Constanza Romero RN Yes [facility] 04-12-2023 Functional status Chair [facility] Work Phone: 03-12-2023 Functional status Activity Abili ty Standby Assist [facility] Work Phone: 03-11-2023 Functional status Ambulates [facility] Work Phone: 01-26-2023 Functional status Bathroom Privilege [facility] Work Phone: 01-26-2023 Functional status Tolerates Activity Fair [facility] Work Phone: [facility] Mental Status Date Assessment Result Facility 05-09-2024 Because of a physica l, mental, or emotional condition, do you have serious difficulty concentrating, remembering, or making decisions Yes [facility] 09-02-2023 Because of a physica l, mental, or emotional condition, do you have serious difficulty concentrating, remembering, or making decisions Yes 09/02/2023 3:40 PM EDT Constanza Romero RN Yes [facility] 04-12-2023 Cognitive function Voice/Name [facility] Work Phone: 04-10-2023 Cognitive function Level Of Cons ciousness Awake;Alert;Appropriate;Fol lows Commands [facility] Work Phone: 03-12-2023 Cognitive function Voice/Name [facility] Work Phone: 03-10-2023 Cognitive function Level Of Cons ciousness Awake;Alert;Appropriate [facility] Work Phone: 01-26-2023 Cognitive function Voice/Name [facility] Work Phone: 01-24-2023 Cognitive function Level Of Cons ciousness Awake;Alert;Appropriate [facility] Work Phone: Clinical Notes 12-28-2007 to 01-01-2025 Telephone Encounter - Uma Pinto LPN - 11/14/2024 1:55 PM EDTTelephone Encounter - Uma Pinto LPN - 11/14/2024 1:55 PM EDTTelephone Encounter - Vinh Van MD - 11/14/2024 11:45 AM EDT Note Date & Type Note Facility 01-01-2025 Note [facility] Medical Records Department [address] [place] [address] Discharge Summary 01/01/25 1131 MR#: [id number] Acct: [id number] Name: PRICILA HOOKER Rep #: [id number] : 1945 79 From: Eddie Vera MD PCP: Dr. Vinh Van MD Status:ADM DIONE Location: [place] [address] Providers Date of Admission: 12/27/24 Primary Care Physician: Dr. Vinh Van MD Consultations 12/28/24 00:19 Consult: Inpatient Palliative Care Routine Consulting Provider: Taniya Castaneda Reason for Consult: symptom mgmt for cancer related pain, code status discussion EMERGENT Consult: No MD Notified: Yes Date Notified: 12/28/24 Time Notified: 08:00 Method of Notification: Text Reason For Visit: HYPOGLYCEMIA, MILD HYPERKALEMIA Diagnosis Discharge Diagnosis (1) Recurrent severe hypoglycemia: Status: Acute Code(s): E16.2 - Hypoglycemia, unspecified Medications at Discharge Home Medications amitriptyline 50 mg tablet 50 mg PO QHS DEPRESSION 12/23/22 atorvastatin 40 mg tablet 40 mg PO QHS CHOLESTEROL 12/23/22 gabapentin 100 mg capsule 100 mg PO BID NERVE PAIN 12/23/22 magnesium chloride 71.5 mg (magnesium chloride) tablet,delayed release (Slow-Mag) 71.5 mg PO BID SUPPLEMENT 12/29/22 ondansetron HCl 8 mg tablet 8 mg PO Q12H PRN NAUSEA 12/29/22 aspirin 81 mg tablet,delayed release (Adult Low Dose Aspirin) 81 mg PO DAILY [facility] 01/24/23 acetaminophen 500 mg tablet (Acetaminophen Extra Strength) 500 mg PO Q6H PRN PAIN 03/10/23 silver sulfadiazine 1 % topical cream 1 applic topical DAILY PRN BURN 03/10/23 carvedilol 3.125 mg tablet 6.25 mg PO BID 12/17/23 fluticasone furoate 100 mcg-vilanterol 25 mcg/dose inhalation powder 1 inh inhalation Q24H 04/27/24 torsemide 20 mg tablet 20 mg PO DAILY 12/27/24 Held on 12/28/24. Instructions: Resume on 12/30/24. valsartan 80 mg tablet 160 mg PO QHS 12/27/24 metformin 500 mg tablet 500 mg PO BID DIABETES 30 days #60 tabs 12/28/24 Hospital Course Operations None Procedures None Summary of Care Provided Minutes Spent on Discharge: 32 Hospital Course: Per HPI: PRICILA HOOKER, is a 79 F who presented to [facility] ED on 12/27/2024 with altered mental status. Patient lives at home with her sister. Medical history significant for stage III endometrial cancer, type 2 diabetes mellitus with neuropathy, chronic HFrEF, and mild chronic debility. Patient follows with Dr. Branham; reviewed last office note in [facility] from 12/06. She was diagnosed with stage III endometrial cancer back in 2022. She initially completed chemotherapy with carboplatin, paclitaxel and pembrolizumab. She received 5 cycles of pembrolizumab but it was then held due to worsening neuropathy and general decline. Dr. Branham noted that patient was having further general decline as well as worsening abdominal pain suspected secondary to cancer. He recently referred the patient to palliative care and patient and daughter notes that they have established with palliative care in the past few weeks. Dr. Branham also noted that he would obtain a repeat CT chest as there was recently concern for lung metastases, and if the CT chest was worse he would recommend getting hospice care involved. Unclear if the CT scans been done. Chest x-ray in the ED today showed increased markings of the lung bases suggestive of bibasilar atelectasis as well as a questionable 1.8 centimeter nodule in the medial aspect of the right middle lobe. Patient sister notes that over the past several days patient has been more weak and debilitated than normal. Notably patient did start taking extended release p.o. morphine twice daily and sister thought it may be secondary to the morphine. Does not check her sugars regularly baseline. This morning patient was more altered and had a small fall so they called EMS. She was found to have hypoglycemia with initial blood glucose in the 30s. Was given an IV D10 bolus by EMS with improvement in blood sugar to the 180s. They noted that patient regained consciousness quickly after the D10 administration. However, on arrival to the ED here her sugar had again dropped to the 40s and she was given another IV D10 bolus with improvement in her blood sugar. Labs were notable for mild hyperkalemia with potassium 5.5. No EKG changes were noted. Given worsening debility with multiple hypoglycemia episodes and mild hyperkalemia, hospitalist was contacted for admission. I saw the patient at bedside in the ED, sister was present. Patient was laying back in bed and making appropriate eye contact, and she answered a few questions for me. However, she largely deferred to her sister with answering questions. 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 Notes that she has seen some decline in functional status of the patient (more content not included)... [facility] 01-01-2025 Note [facility] 12-21-2024 Note [facility] 12-06-2024 Note HNO ID: [id number] Author: KVNG RETANA RN Service: ? Author Type: Registered Nurse Type: Progress Notes Filed: 12/06/2024 13:44 Note Text: Lab and OV prior to tx. Kvng Retana RN [facility] 12-06-2024 Note [facility] 11-16-2024 Note HNO ID: [id number] Author: BRIDGETTE BRYAN RN Service: ? Author Type: Registered Nurse Type: Progress Notes Filed: 11/16/2024 12:06 Note Text: No magnesium replacement today per Maisha Edmonds NP [facility] 11-16-2024 Note [facility] 11-14-2024 Telephone encounter Note Rx req received from pharmacy. Next OV 11/16/24 Uma Pinto LPN [facility] 11-14-2024 Miscellaneous Notes Rx req received from pharmacy. Next OV 11/16/24 Uma Pinto LPN documented in this encounter [facility] 11-14-2024 Telephone encounter Note OK to refill as ordered Vinh Van MD [facility] 11-14-2024 Miscellaneous Notes OK to refill as ordered Vinh Van MD The patient has been identified by name and date of : Yes Caregiver verified no other encounters exist for this prescription request: Yes Caregiver confirmed with patient/requestor that no other refills are due, in the near future, with this provider at this time: No The last office visit in the department: 05/25/2024 Does the patient have a future office visit with this provider/department: No Visit date not found NOTIFIED VIA [facility] THAT SHE NEEDS AN APPOINTMENT. Requested Prescriptions Pending Prescriptions Disp Refills glimepiride (AMARYL) 4 mg tablet 180 tablet 3 Sig: Take 1 tablet by mouth two times a day with meals. Evangelina Doyle MA November 14, 2024 11:37 AM documented in this encounter [facility] 11-14-2024 Telephone encounter Note The patient has been identified by name and date of : Yes Caregiver verified no other encounters exist for this prescription request: Yes Caregiver confirmed with patient/requestor that no other refills are due, in the near future, with this provider at this time: No The last office visit in the department: 05/25/2024 Does the patient have a future office visit with this provider/department: No Visit date not found NOTIFIED VIA [facility] THAT SHE NEEDS AN APPOINTMENT. Requested Prescriptions Pending Prescriptions Disp Refills glimepiride (AMARYL) 4 mg tablet 180 tablet 3 Sig: Take 1 tablet by mouth two times a day with meals. Evangelina Doyle MA November 14, 2024 11:37 AM [facility] 10-25-2024 Note [facility] 10-25-2024 History of Present illness Narrative Diagnosis: 1) 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 HPI: The patient is a 78-year-old female with a past medical history significant for hypertension, hyperlipidemia, GERD, type 2 diabetes (diagnosed about age 60; neuropathy), total knee replacement, former smoker and recent diagnosis of endometrial cancer. SURGERY & DATE: 07/24/2022 - Exam under anesthesia, total laparoscopic hysterectomy, bilateral salpingo-oophorectomy, sentinel lymph node mapping with excision of bilateral pelvic sentinel lymph nodes, and extensive lysis of adhesions. PATHOLOGY: A. Odum lymph node, right, biopsy: - Isolated tumor cells involving 1 of 2 lymph nodes; see comment. B. 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 C. Uterus with cervix, right and left fallopian tubes, and ovaries, hysterectomy and bilateral salpingo-oophorectomy: - Cervix: No significant pathologic abnormality. - Endomyometrium: Endometrial endometrioid carcinoma with squamous differentiation, FIGO grade 2, invading outer myometrium (18 mm out of 19 mm, 95%) and showing extensive/multifocal lymphovascular invasion and the microcystic, elongated, and fragmented (MELF) pattern of invasion; see comment and synoptic report. - Serosa: No significant pathologic abnormality. - Bilateral ovaries: Adhesions. - Right fallopian tube: Hematosalpinx, no definitive carcinoma. - Left fallopian tube: Metastatic carcinoma. Mismatch repair (MMR) interpretation: Deficient mismatch repair (dMMR) Results Mismatch Repair Protein Immunohistochemistry Results: MLH1: Loss of Nuclear Expression (subclonal/focal loss) PMS2: Loss of Nuclear Expression (subclonal/focal loss) MSH2: Normal/Intact Nuclear Expression MSH6: Normal/Intact Nuclear Expression IMAGING: CT ABD/PELVIS: 06/16/2022 IMPRESSION: 1. Findings compatible with cystitis. 2. Approximately 8.5 cm tubular/serpiginous cystic lesion in the right adnexal region suspect for hydrosalpinx though right ovarian cystic lesion not excluded with certainty. Mild infiltration of the surrounding fat raises suspicion for the possibility of superinfection. A few small bowel loops in the pelvis appear tethered around this right adnexal cystic lesion and a short segment of sigmoid colon abuts the posterior aspect of this right adnexal lesion. 3. Small volume pelvic free fluid. 4. Heterogeneous appearance of the uterus potentially related to fibroids. Further evaluation with dedicated pelvic ultrasound would be of value. CXR: 07/22/2022 IMPRESSION: Left basilar mild atelectasis. TUMOR BOARD: Management Options: -Recommend adjuvant treatment with systemic therapy, carbo/taxol +/- pembrolizumab -Referral to genetics Per initial consultation here: No vaginal discharge or bleeding. Bowels moving regularly. Good appetite. Pain is gone. Subjectively voiding to completion. Fingertip and toes numb. Had it approximately 3 years. Orthostasis if stands quickly. Balance has been "off" for about 6 months. Used WC to come in from [facility]. Uses cane and walker in the home. Lives in basement of sister's house. Capable of all ADLs independently. Uses shower chair. She and sister share cooking. Drives. Low back pain can limit her walking--symptoms are consistent with spinal stenosis. Previous therapy: 1) Paclitaxel and carboplatin and pembrolizumab. First 2 cycles without pembrolizumab. Had EGD. Results noted. ?Gastroparesis. Was admitted to [facility] 01/24 ago for urosepsis. Admitted 2 days. Glimepiride was held. Completed antibiotic Wednesday. Had no urinary symptoms. Family found her at the table acting disoriented. Previously saw carrier associate at [facility] for reduced EF. Started on Jaurdiance. Presents for ongoing oncologic management. OV 11/2023: She was admitted in August of her hypoxemic/hypercapnic respiratory failure. Was in CHF. Continues living in a walkout basement and her sisters home. She has frequent orthostasis. Not able to do much in the kitchen so her sister has arranged for Meals on Wheels. However she can walk fairly well around the house with her walker. Neuropathy symptoms are no worse. Fingertips are involved. She does not cook for fear of burning herself. Numbness in the feet comes to just above the ankles. No chest pain. No palpitation or sensation of tachycardia. Has oxygen since the time of discharge from [facility]. Uses it at night all the time. Not so much during the day unless she is walking around the house. Appetite has been normal. No abdominal pain. Bowels have been working regularly with formed stools. She has occasional diarrhea. Not daily. Able to void her bladder well. Completed radiation (03/10/2024) treatment to pleural-based inferior right lung nodule that had increased in size on CT 01/18/2024. Other nodules had remained stable. Presents for ongoing oncologic management. OV 05/23/2024: 1 dose of gemcitabine 04/25. Admitted to [facility] with UTI. She was discharged home but very weak. Readmitted to [facility] for hypoxemic respiratory failure. She required BiPAP. She was in the ICU for concern of pneumonia. Positive for RSV. Managed with supportive care and gradually improved. Completed course of antibiotics and steroids while she was in the hospital. She was seen in consultation by gastroenterology for hepatocellular injury. Attributed to fatty liver. During the hospitalization at [place], CTA of the chest revealed that the left upper lobe pulmonary nodule was larger when compared to previous study in April. No dimensions rendered. Was noted to have "slight increase". Ultrasound liver showed nodular contour suggesting cirrhosis. She was found to have splenomegaly with spleen measuring 14.8 cm. Home from skilled care this past Wednesday. Sister helps with showering. Bedside commode for night use. Can get from chair to bathroom herself now during the day. Lingering cough. Some sputum--less than when sick. Bowels working well. Appetite improving. Denies pain. Current therapy: 1) Bevacizumab. Presents for ongoing oncologic management. Interim history: Doing better. Had significant abdominal pain when seen last. Rx Tramadol really helped. Used one tablet several days ago. Tylenol consistently at night. Pain was right sided and felt like a stabbing sensation. Remains very Naps often. Swelling has been under control with torsemide. PMH, medications and allergies personally reviewed by me today. Any changes documented in appropriate section. Constitutional: No further weight gain Cardiovascular: (+) bilateral ankle/foot swelling Respiratory: (-) shortness of breath PHYSICAL EXAM: Vitals: Blood pressure 138/84, pulse 72, temperature 36.8 C (98.3 F), temperature source Temporal, weight 134.7 kg (297 lb), SpO2 94%. Well-appearing and in no acute distress. EYES: Sclerae are anicteric bilaterally. LYMPHATIC: There is no palpable cervical or supraclavicular adenopathy. CARDIOVASCULAR: Rhythm is regular. ABDOMEN: The abdomen is nondistended. Tender without mass right upper quadrant. 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 ASSESSMENT/PLAN: (C54.1) Endometrial cancer (HCC) (primary encounter diagnosis) (C80.0) Carcinomatosis (HCC) Lung metastases. HTN. Volume overload. 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 -ECOG PS remains 3. -Significant comorbid conditions including type 2 diabetes with pre-existing sensory neuropathy. She had impaired gait and mobility from spinal stenosis as well. Nonetheless she stood to benefit significantly from adjuvant therapy with carboplatin, paclitaxel and pembrolizumab based on the reported results of the NRG-GY018 trial. -Pembrolizumab was added with cycle #3. Received 5 cycles. Therapy held following due to worsening neuropathy and general decline. -Diagnosed with immunotherapy induced cardiomyopathy. -She has been receiving and tolerating bevacizumab very well. We reviewed CT scan results from this month. Mild progression of 3 lung metastases with stable disease and responding disease elsewhere. She is getting good palliative benefit from drug particularly in regard to carcinomatosis. Discussed this rationale to continue treatment. Plan: -Refilled carvedilol. - Okay to continue Avastin today. - UA with each cycle. - CBC/CMP each cycle. - OV for next cycle. - CTs in about 3 months. - Radiation oncology referral for consideration of further radiation of pulmonary metastases if progressive disease at that time. 3. Primary hypertension (I10) Blood pressure is well-controlled on current antihypertensive regimen, including amlodipine and valsartan. - Continue amlodipine at bedtime to minimize edema. - Continue valsartan 160 mg at bedtime. Portions of this documentation were copied and pasted from my previous office visit note dated 08/23/2024 in order to provide a cohesive continuity of the history. The note has been reviewed and edited and updated as necessary. Nora Branham DO documented in this encounter [facility] 10-16-2024 Telephone encounter Note Has been told that she is overdue for 3 month visit. The following approved medication requests have been transmitted electronically. Requested Prescriptions Signed Prescriptions Disp Refills atorvastatin (LIPITOR) 40 mg tablet 90 tablet 1 Sig: TAKE 1 TABLET BY MOUTH ONCE DAILY AT BEDTIME FOR CHOLESTEROL Authorizing Provider: SUPA MATUTE APRN.CNP [facility] 10-16-2024 Miscellaneous Notes Has been told that she is overdue for 3 month visit. The following approved medication requests have been transmitted electronically. Requested Prescriptions Signed Prescriptions Disp Refills atorvastatin (LIPITOR) 40 mg tablet 90 tablet 1 Sig: TAKE 1 TABLET BY MOUTH ONCE DAILY AT BEDTIME FOR CHOLESTEROL Authorizing Provider: SUPA MATUTE APRN.CNP The patient has been identified by name and date of : Yes Caregiver verified no other encounters exist for this prescription request: Yes Caregiver confirmed with patient/requestor that no other refills are due, in the near future, with this provider at this time: No The last office visit in the department: 05/25/24 Does the patient have a future office visit with this provider/department: No Visit date not found Requested Prescriptions Pending Prescriptions Disp Refills atorvastatin (LIPITOR) 40 mg tablet 90 tablet 3 Sig: TAKE 1 TABLET BY MOUTH ONCE DAILY AT BEDTIME FOR CHOLESTEROL Evangelina Doyle MA October 16, 2024 8:59 AM documented in this encounter [facility] 10-16-2024 Telephone encounter Note The patient has been identified by name and date of : Yes Caregiver verified no other encounters exist for this prescription request: Yes Caregiver confirmed with patient/requestor that no other refills are due, in the near future, with this provider at this time: No The last office visit in the department: 05/25/24 Does the patient have a future office visit with this provider/department: No Visit date not found Requested Prescriptions Pending Prescriptions Disp Refills atorvastatin (LIPITOR) 40 mg tablet 90 tablet 3 Sig: TAKE 1 TABLET BY MOUTH ONCE DAILY AT BEDTIME FOR CHOLESTEROL Evangelina Doyle MA October 16, 2024 8:59 AM [facility] 10-16-2024 Telephone encounter Note Prescription Refill Information The patient has been identified by name and date of : Yes Caregiver verified no other encounters exist for this prescription request: Yes Caregiver confirmed with patient/requestor that no other refills are due, in the near future, with this provider at this time: Yes The last office visit in the department: 10/05/2024 Does the patient have a future office visit with this provider/department: Yes Requested Prescriptions Pending Prescriptions Disp Refills amLODIPine (NORVASC) 10 mg tablet 30 tablet 2 Sig: Take 1 tablet by mouth once daily. Mary Romero LPN October 16, 2024 7:26 AM [facility] 10-16-2024 Miscellaneous Notes Prescription Refill Information The patient has been identified by name and date of : Yes Caregiver verified no other encounters exist for this prescription request: Yes Caregiver confirmed with patient/requestor that no other refills are due, in the near future, with this provider at this time: Yes The last office visit in the department: 10/05/2024 Does the patient have a future office visit with this provider/department: Yes Requested Prescriptions Pending Prescriptions Disp Refills amLODIPine (NORVASC) 10 mg tablet 30 tablet 2 Sig: Take 1 tablet by mouth once daily. Mary Romero LPN October 16, 2024 7:26 AM documented in this encounter [facility] 10-05-2024 Note [facility] 10-03-2024 Note [facility] 09-13-2024 Note HNO ID: [id number] Author: KVNG RETANA RN Service: ? Author Type: Registered Nurse Type: Progress Notes Filed: 09/13/2024 13:20 Note Text: OV prior to tx. Kvng Retana RN [facility] 09-13-2024 History of Present illness Narrative OV prior to tx. Kvng Retana RN documented in this encounter [facility] 09-13-2024 Note [facility] 09-13-2024 History of Present illness Narrative Chief Complaint Patient presents with: Follow Up HPI: Pricila Hooker is a 78 year old female who presents here today for evaluation for treatment today. Per Dr. Branham's previous note: H/o hypertension, hyperlipidemia, GERD, type 2 diabetes (diagnosed about age 60; neuropathy), total knee replacement, former smoker and recent diagnosis of endometrial cancer. SURGERY & DATE: 07/24/2022 - Exam under anesthesia, total laparoscopic hysterectomy, bilateral salpingo-oophorectomy, sentinel lymph node mapping with excision of bilateral pelvic sentinel lymph nodes, and extensive lysis of adhesions. PATHOLOGY: A. Odum lymph node, right, biopsy: - Isolated tumor cells involving 1 of 2 lymph nodes; see comment. B. 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 C. Uterus with cervix, right and left fallopian tubes, and ovaries, hysterectomy and bilateral salpingo-oophorectomy: - Cervix: No significant pathologic abnormality. - Endomyometrium: Endometrial endometrioid carcinoma with squamous differentiation, FIGO grade 2, invading outer myometrium (18 mm out of 19 mm, 95%) and showing extensive/multifocal lymphovascular invasion and the microcystic, elongated, and fragmented (MELF) pattern of invasion; see comment and synoptic report. - Serosa: No significant pathologic abnormality. - Bilateral ovaries: Adhesions. - Right fallopian tube: Hematosalpinx, no definitive carcinoma. - Left fallopian tube: Metastatic carcinoma. Mismatch repair (MMR) interpretation: Deficient mismatch repair (dMMR) Results Mismatch Repair Protein Immunohistochemistry Results: MLH1: Loss of Nuclear Expression (subclonal/focal loss) PMS2: Loss of Nuclear Expression (subclonal/focal loss) MSH2: Normal/Intact Nuclear Expression MSH6: Normal/Intact Nuclear Expression IMAGING: CT ABD/PELVIS: 06/16/2022 IMPRESSION: 1. Findings compatible with cystitis. 2. Approximately 8.5 cm tubular/serpiginous cystic lesion in the right adnexal region suspect for hydrosalpinx though right ovarian cystic lesion not excluded with certainty. Mild infiltration of the surrounding fat raises suspicion for the possibility of superinfection. A few small bowel loops in the pelvis appear tethered around this right adnexal cystic lesion and a short segment of sigmoid colon abuts the posterior aspect of this right adnexal lesion. 3. Small volume pelvic free fluid. 4. Heterogeneous appearance of the uterus potentially related to fibroids. Further evaluation with dedicated pelvic ultrasound would be of value. CXR: 07/22/2022 IMPRESSION: Left basilar mild atelectasis. TUMOR BOARD: Management Options: -Recommend adjuvant treatment with systemic therapy, carbo/taxol +/- pembrolizumab -Referral to genetics Per initial consultation here: No vaginal discharge or bleeding. Bowels moving regularly. Good appetite. Pain is gone. Subjectively voiding to completion. Fingertip and toes numb. Had it approximately 3 years. Orthostasis if stands quickly. Balance has been "off" for about 6 months. Used WC to come in from lobby. Uses cane and walker in the home. Lives in basement of sister's house. Capable of all ADLs independently. Uses shower chair. She and sister share cooking. Drives. Low back pain can limit her walking--symptoms are consistent with spinal stenosis. Previous therapy: 1) Paclitaxel and carboplatin and pembrolizumab. First 2 cycles without pembrolizumab. Had EGD. Results noted. ?Gastroparesis. Was admitted to [facility] 01/24 ago for urosepsis. Admitted 2 days. Glimepiride was held. Completed antibiotic Wednesday. Had no urinary symptoms. Family found her at the table acting disoriented. Previously saw carrier associate at [facility] for reduced EF. Started on Jaurdiance. Presents for ongoing oncologic management. OV 11/2023: She was admitted in August of her hypoxemic/hypercapnic respiratory failure. Was in CHF. Continues living in a walkout basement and her sisters home. She has frequent orthostasis. Not able to do much in the kitchen so her sister has arranged for Meals on Wheels. However she can walk fairly well around the house with her walker. Neuropathy symptoms are no worse. Fingertips are involved. She does not cook for fear of burning herself. Numbness in the feet comes to just above the ankles. No chest pain. No palpitation or sensation of tachycardia. Has oxygen since the time of discharge from [facility]. Uses it at night all the time. Not so much during the day unless she is walking around the house. Appetite has been normal. No abdominal pain. Bowels have been working regularly with formed stools. She has occasional diarrhea. Not daily. Able to void her bladder well. Completed radiation (03/10/2024) treatment to pleural-based inferior right lung nodule that had increased in size on CT 01/18/2024. Other nodules had remained stable. Presents for ongoing oncologic management. OV 05/23/2024: 1 dose of gemcitabine 04/25. Admitted to [facility] with UTI. She was discharged home but very weak. Readmitted to [facility] for hypoxemic respiratory failure. She required BiPAP. She was in the ICU for concern of pneumonia. Positive for RSV. Managed with supportive care and gradually improved. Completed course of antibiotics and steroids while she was in the hospital. She was seen in consultation by gastroenterology for hepatocellular injury. Attributed to fatty liver. During the hospitalization at [place], CTA of the chest revealed that the left upper lobe pulmonary nodule was larger when compared to previous study in April. No dimensions rendered. Was noted to have "slight increase". Ultrasound liver showed nodular contour suggesting cirrhosis. She was found to have splenomegaly with spleen measuring 14.8 cm. Home from skilled care this past Wednesday. Sister helps with showering. Bedside commode for night use. Can get from chair to bathroom herself now during the day. Lingering cough. Some sputum--less than when sick. Bowels working well. Appetite improving. Denies pain. Recording using [employer] software for draft documentation of the visit was discussed with the patient/authorized technical service representative; all questions welcomed and answered. Patient/authorized technical service representative agreed to proceed No new concerns today. Pt. here today with family member. Appetite:"Good." Energy level:"About the same." Denies fevers. Mouth:denies sores Resp:denies cough or sob Cardiac:denies chest pain/palpitations GI:occ abd pain-takes tylenol with relief, denies n/v, moving bowels regulalry :denies dysuria/hematuria Extrem:denies new pain Neuro:+neuropathy to finger tips/soles of feet-stable Skin:denies rashes Heme:denies bleeding The ROS is otherwise negative. Past medical history, appointments, medications, allergies reviewed. No changes. EXAM: BP 126/74 Pulse 72 Resp 14 Wt 134.2 kg (295 lb 13.7 oz) SpO2 95% BMI 46.33 kg/m APPEARANCE Well appearing, alert, in no acute distress, well-hydrated, well nourished. HEART RRR with normal S1 and S2, no murmurs LUNG clear to auscultation, on O2/nc LYMPH NODES No cervical lymphadenopathy, No supraclavicular lymphadenopathy, and No axillary lymphadenopathy. ABDOMEN bowel sounds normoactive, soft, non-tender EXTREMITIES No edema NEURO Awake, alert and oriented x 3, using w/c today, and No involuntary motions. SKIN Skin color, texture, turgor normal, no suspicious rashes or lesions LABS: Latest Ref Rng 08/23/2024 09/13/2024 WBC 3.70 - 11.00 k/uL 5.90 5.88 RBC 3.90 - 5.20 m/uL 3.13 (L) 3.43 (L) Hemoglobin 11.5 - 15.5 g/dL 9.8 (L) 10.6 (L) Hematocrit 36.0 - 46.0 % 29.2 (L) 32.2 (L) MCV 80.0 - 100.0 fL 93.3 93.9 MCH 26.0 - 34.0 pg 31.3 30.9 MCHC 30.5 - 36.0 g/dL 33.6 32.9 RDW-CV 11.5 - 15.0 % 13.9 14.0 Platelet Count 150 - 400 k/uL 104 (L) 144 (L) MPV 9.0 - 12.7 fL 8.8 (L) 9.7 Neut% % 68.0 66.9 Abs Neut (ANC) 1.45 - 7.50 k/uL 4.01 3.94 Lymph% % 17.1 20.1 Abs Lymph 1.00 - 4.00 k/uL 1.01 1.18 Montgomery% % 10.8 8.7 Abs Montgomery <0.87 k/uL 0.64 0.51 Eosin% % 3.1 3.6 Abs Eosin <0.46 k/uL 0.18 0.21 Baso% % 0.7 0.5 Abs Baso <0.11 k/uL 0.04 0.03 Immature Gran % % 0.3 0.2 IMMATURE GRANS (ABS) <0.10 k/uL <0.03 <0.03 NRBC /100 WBC 0.0 0.0 Absolute nRBC <0.01 k/uL <0.01 <0.01 DTYPE Auto Auto Latest Ref Rng 08/23/2024 09/13/2024 Protein, Total 6.3 - 8.0 g/dL 6.6 7.1 Albumin 3.9 - 4.9 g/dL 3.7 (L) 3.9 Calcium 8.5 - 10.2 mg/dL 9.5 9.6 Bilirubin, Total 0.2 - 1.3 mg/dL 0.3 0.3 Alkaline Phosphatase 34 - 123 U/L 78 85 AST 13 - 35 U/L 13 13 ALT 7 - 38 U/L 11 11 Glucose 74 - 99 mg/dL 172 (H) 237 (H) BUN 7 - 21 mg/dL 20 26 (H) Creatinine 0.58 - 0.96 mg/dL 1.02 (H) 1.24 (H) Sodium 136 - 144 mmol/L 138 139 Potassium 3.7 - 5.1 mmol/L 4.5 4.4 Chloride 98 - 107 mmol/L 101 99 CO2 22 - 30 mmol/L 25 29 Anion Gap 8 - 15 mmol/L 12 11 eGFR >=60 mL/min/1.73m 56 (L) 45 (L) Latest Ref Rng 08/23/2024 09/13/2024 Magnesium 1.7 - 2.3 mg/dL 1.4 (L) 1.6 (L) ASSESSMENT/PLAN: 1. Endometrial cancer (HCC) - ICD9: 182.0, ICD10: C54.1 (primary diagnosis) 2. Carcinomatosis (HCC) - ICD9: 199.0, ICD10: C80.0 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 Lung mets. ECOG PS remains 3. - Overall tolerating avastin well. - Reviewed labs with pt. and family member. - CT's as scheduled. - Continue current medications. - UA/CBC/CMP with each cycle. - Proceed with avastin today. - Please change / OV to me with same labs. - Follow up as scheduled. - Pt. aware to call office with any questions/concerns. The patient indicates understanding of these issues and agrees with the plan. All documentation from previous visit of 08/23/24-Dr. Branham was copied and pasted, documentation has been reviewed and edited as necessary for today's visit. Tamara Mari APRN.DIRECTOR MARKETING documented in this encounter [facility] 09-13-2024 Note [facility] 09-13-2024 History of Present illness Narrative Patient is here for IVAD port flush/blood draw. IVAD is located in left upper chest. Site cleansed with Chloraprep IVAD accessed with a #20 gauge 3/4" non-coring Gripper needle Flush with 5cc's Normal Saline. Blood Return: Good. 10 cc's blood aspirated and discarded. Blood drawn for CBC and CMP. Flushed with: 20 ml Normal Saline. Needle left in for further therapy. UA obtained Milagro Payne RN documented in this encounter [facility] 06-25-2025 Telephone encounter Note Pt seen in office today. Uma Pinto LPN [facility] 08-23-2024 Miscellaneous Notes Pt seen in office today. Uma Pinto LPN Not on Demadex per sister. Aware to take to ER for Shortness of Breath or worsening symptoms. Uma Pinto LPN Swelling feet/ankle 3 days, says the skin "is tight and shiny" [place] a little warm to touch. She went to a on Wednesday and she was up more than usual. Denies cough Denies Shortness of Breath Seems to be better in the morning but gets worse through the day. She does not have any compression hose. She had been on Furosemide in the past from this office. Not sure why it was discontinued. Asking if she can resume. She has 5 tablets on hand. Current treatment-Avastin Please advise. Call sister [phone] with instructions. Uma Pinto LPN documented in this encounter [facility] 08-23-2024 Note [facility] 08-23-2024 History of Present illness Narrative Diagnosis: 1) 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 HPI: The patient is a 78-year-old female with a past medical history significant for hypertension, hyperlipidemia, GERD, type 2 diabetes (diagnosed about age 60; neuropathy), total knee replacement, former smoker and recent diagnosis of endometrial cancer. SURGERY & DATE: 07/24/2022 - Exam under anesthesia, total laparoscopic hysterectomy, bilateral salpingo-oophorectomy, sentinel lymph node mapping with excision of bilateral pelvic sentinel lymph nodes, and extensive lysis of adhesions. PATHOLOGY: A. Odum lymph node, right, biopsy: - Isolated tumor cells involving 1 of 2 lymph nodes; see comment. B. 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 C. Uterus with cervix, right and left fallopian tubes, and ovaries, hysterectomy and bilateral salpingo-oophorectomy: - Cervix: No significant pathologic abnormality. - Endomyometrium: Endometrial endometrioid carcinoma with squamous differentiation, FIGO grade 2, invading outer myometrium (18 mm out of 19 mm, 95%) and showing extensive/multifocal lymphovascular invasion and the microcystic, elongated, and fragmented (MELF) pattern of invasion; see comment and synoptic report. - Serosa: No significant pathologic abnormality. - Bilateral ovaries: Adhesions. - Right fallopian tube: Hematosalpinx, no definitive carcinoma. - Left fallopian tube: Metastatic carcinoma. Mismatch repair (MMR) interpretation: Deficient mismatch repair (dMMR) Results Mismatch Repair Protein Immunohistochemistry Results: MLH1: Loss of Nuclear Expression (subclonal/focal loss) PMS2: Loss of Nuclear Expression (subclonal/focal loss) MSH2: Normal/Intact Nuclear Expression MSH6: Normal/Intact Nuclear Expression IMAGING: CT ABD/PELVIS: 06/16/2022 IMPRESSION: 1. Findings compatible with cystitis. 2. Approximately 8.5 cm tubular/serpiginous cystic lesion in the right adnexal region suspect for hydrosalpinx though right ovarian cystic lesion not excluded with certainty. Mild infiltration of the surrounding fat raises suspicion for the possibility of superinfection. A few small bowel loops in the pelvis appear tethered around this right adnexal cystic lesion and a short segment of sigmoid colon abuts the posterior aspect of this right adnexal lesion. 3. Small volume pelvic free fluid. 4. Heterogeneous appearance of the uterus potentially related to fibroids. Further evaluation with dedicated pelvic ultrasound would be of value. CXR: 07/22/2022 IMPRESSION: Left basilar mild atelectasis. TUMOR BOARD: Management Options: -Recommend adjuvant treatment with systemic therapy, carbo/taxol +/- pembrolizumab -Referral to genetics Per initial consultation here: No vaginal discharge or bleeding. Bowels moving regularly. Good appetite. Pain is gone. Subjectively voiding to completion. Fingertip and toes numb. Had it approximately 3 years. Orthostasis if stands quickly. Balance has been "off" for about 6 months. Used WC to come in from [facility]. Uses cane and walker in the home. Lives in basement of sister's house. Capable of all ADLs independently. Uses shower chair. She and sister share cooking. Drives. Low back pain can limit her walking--symptoms are consistent with spinal stenosis. Previous therapy: 1) Paclitaxel and carboplatin and pembrolizumab. First 2 cycles without pembrolizumab. Had EGD. Results noted. ?Gastroparesis. Was admitted to [facility] 01/24 ago for urosepsis. Admitted 2 days. Glimepiride was held. Completed antibiotic Wednesday. Had no urinary symptoms. Family found her at the table acting disoriented. Previously saw carrier associate at [facility] for reduced EF. Started on Jaurdiance. Presents for ongoing oncologic management. OV 11/2023: She was admitted in August of her hypoxemic/hypercapnic respiratory failure. Was in CHF. Continues living in a walkout basement and her sisters home. She has frequent orthostasis. Not able to do much in the kitchen so her sister has arranged for Meals on Wheels. However she can walk fairly well around the house with her walker. Neuropathy symptoms are no worse. Fingertips are involved. She does not cook for fear of burning herself. Numbness in the feet comes to just above the ankles. No chest pain. No palpitation or sensation of tachycardia. Has oxygen since the time of discharge from [facility]. Uses it at night all the time. Not so much during the day unless she is walking around the house. Appetite has been normal. No abdominal pain. Bowels have been working regularly with formed stools. She has occasional diarrhea. Not daily. Able to void her bladder well. Completed radiation (03/10/2024) treatment to pleural-based inferior right lung nodule that had increased in size on CT 01/18/2024. Other nodules had remained stable. Presents for ongoing oncologic management. OV 05/23/2024: 1 dose of gemcitabine 04/25. Admitted to [facility] with UTI. She was discharged home but very weak. Readmitted to [facility] for hypoxemic respiratory failure. She required BiPAP. She was in the ICU for concern of pneumonia. Positive for RSV. Managed with supportive care and gradually improved. Completed course of antibiotics and steroids while she was in the hospital. She was seen in consultation by gastroenterology for hepatocellular injury. Attributed to fatty liver. During the hospitalization at [place], CTA of the chest revealed that the left upper lobe pulmonary nodule was larger when compared to previous study in April. No dimensions rendered. Was noted to have "slight increase". Ultrasound liver showed nodular contour suggesting cirrhosis. She was found to have splenomegaly with spleen measuring 14.8 cm. Home from skilled care this past Wednesday. Sister helps with showering. Bedside commode for night use. Can get from chair to bathroom herself now during the day. Lingering cough. Some sputum--less than when sick. Bowels working well. Appetite improving. Denies pain. Recording using [employer] software for draft documentation of the visit was discussed with the patient/authorized technical service representative; all questions welcomed and answered. Patient/authorized technical service representative agreed to proceed Presents for ongoing oncologic management. Interim history: Patient with a history of cancer presents with concerns about swelling and weight gain. She reports increased swelling in her feet and ankles, accompanied by redness and warmth. She notes a 10-pound weight gain, which she attributes to fluid retention. Her urine has been dark yellow, and she has been advised to increase her water intake. She is currently taking amlodipine at bedtime for blood pressure management. She was previously on furosemide, which was discontinued due to decreased kidney function. She has a limited supply of furosemide (5-6 pills) remaining and no refills available. She is also taking valsartan 160 mg at bedtime and has a supply of 80 mg tablets. She inquires about using her remaining 40 mg tablets to complete her dosage. Additionally, she reports a persistent "kink" in her neck, which she describes as a constant discomfort, particularly when turning her head to the right or quickly to the left. She wonders if this could be related to her cancer. She sleeps on her left side with a pillow for support. PMH, medications and allergies personally reviewed by me today. Any changes documented in appropriate section. Constitutional: (+) weight gain Cardiovascular: (+) bilateral ankle/foot swelling Respiratory: (-) shortness of breath Genitourinary: (+) dark yellow urine Neck: (+) right-sided neck pain Skin: (+) lower extremity redness, (+) lower extremity warmth PHYSICAL EXAM: Vitals: Blood pressure 128/80, pulse 75, temperature 36.2 C (97.2 F), temperature source Temporal, weight (!) 137.4 kg (303 lb), SpO2 97%. Well-appearing and in no acute distress. EYES: Sclerae are anicteric bilaterally. LYMPHATIC: There is no palpable cervical or supraclavicular adenopathy. CARDIOVASCULAR: Rhythm is regular. ABDOMEN: The abdomen is nondistended. Tender without mass right upper quadrant. 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 ASSESSMENT/PLAN: (C54.1) Endometrial cancer (HCC) (primary encounter diagnosis) (C80.0) Carcinomatosis (HCC) Lung metastases. HTN. Volume overload. 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 -ECOG PS remains 3. -Significant comorbid conditions including type 2 diabetes with pre-existing sensory neuropathy. She had impaired gait and mobility from spinal stenosis as well. Nonetheless she stood to benefit significantly from adjuvant therapy with carboplatin, paclitaxel and pembrolizumab based on the reported results of the [id number] trial. -Pembrolizumab was added with cycle #3. Received 5 cycles. Therapy held following due to worsening neuropathy and general decline. -Diagnosed with immunotherapy induced cardiomyopathy. Plan: -Avastin when able. -UA with each cycle. -CBC/CMP each cycle. -OV for next cycle. -Schedule CT scans for early to mid-September to monitor disease progression. 2. Hypervolemia, unspecified hypervolemia type (E87.70) Patient exhibits signs of fluid retention, including a 10-pound weight gain and lower extremity edema. Recent discontinuation of diuretic therapy (torsemide) likely contributed to fluid accumulation. - Restart torsemide 20 mg daily; prescription sent to [facility] pharmacy. - Monitor for increased urine output; if insufficient, consider increasing dose to 40 mg daily. - Follow-up in 3-4 days to assess effectiveness of diuretic therapy. 3. Primary hypertension (I10) Blood pressure is well-controlled on current antihypertensive regimen, including amlodipine and valsartan. Amlodipine may contribute to peripheral edema. - Continue amlodipine at bedtime to minimize edema. - Refill valsartan 160 mg at bedtime; prescription sent to pharmacy. - Obtain new blood pressure cuff for home monitoring; insurance coverage expected at the beginning of the month. Portions of this documentation were copied and pasted from my previous office visit note dated 07/03/2024 in order to provide a cohesive continuity of the history. The note has been reviewed and edited and updated as necessary. Nora Branham DO documented in this encounter [facility] 08-23-2024 Note [facility] 08-23-2024 History of Present illness Narrative Patient is here for IVAD port flush/blood draw per [facility] [place] protocol. IVAD is located in right upper chest. Site cleansed with Chloraprep IVAD accessed with a #20 gauge 3/4" non-coring Gripper needle Flush with 5cc's Normal Saline. Blood Return: Good. 10 cc's blood aspirated and discarded. Blood drawn for CBC and CMP. Flushed with: 20 ml Normal Saline. Non-coring needle left intact for further therapy. Opsite applied to puncture site. Site negative for redness, edema or tenderness. Patient tolerated procedure well. documented in this encounter [facility] 08-18-2024 Telephone encounter Note Not on Demadex per sister. Aware to take to ER for Shortness of Breath or worsening symptoms. Uma Pinto LPN [facility] 08-18-2024 Telephone encounter Note Swelling feet/ankle 3 days, says the skin "is tight and shiny" [place] a little warm to touch. She went to a on Wednesday and she was up more than usual. Denies cough Denies Shortness of Breath Seems to be better in the morning but gets worse through the day. She does not have any compression hose. She had been on Furosemide in the past from this office. Not sure why it was discontinued. Asking if she can resume. She has 5 tablets on hand. Current treatment-Avastin Please advise. Call sister [phone] with instructions. Uma Pinto LPN [facility] 08-02-2024 Telephone encounter Note completed [facility] Work Phone: 08-02-2024 Miscellaneous Notes completed AVS 6/3 Continue with C2 Avastin -UA with each cycle. -CBC/CMP each cycle. -OV for cycle #3. -CT after 3 cycles. Ronit Ramirez documented in this encounter [facility] 08-01-2024 Telephone encounter Note AVS 6/3 Continue with C2 Avastin -UA with each cycle. -CBC/CMP each cycle. -OV for cycle #3. -CT after 3 cycles. Ronit Ramirez [facility] 08-01-2024 Note [facility] 08-01-2024 History of Present illness Narrative Dr. Branham notified of UA results. Per Dr. Branham " Her BP is much better. Doesn't need 24 hour quantification of urine albuminuria based on the 30 mg/dL on dipstick. Okay to treat. I dose reduced bevacizumab from 15-10 due to the issues she had with very high blood pressures after her first dose." documented in this encounter [facility] 08-01-2024 Note [facility] 08-01-2024 History of Present illness Narrative Diagnosis: 1) 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 HPI: The patient is a 78-year-old female with a past medical history significant for hypertension, hyperlipidemia, GERD, type 2 diabetes (diagnosed about age 60; neuropathy), total knee replacement, former smoker and recent diagnosis of endometrial cancer. SURGERY & DATE: 07/24/2022 - Exam under anesthesia, total laparoscopic hysterectomy, bilateral salpingo-oophorectomy, sentinel lymph node mapping with excision of bilateral pelvic sentinel lymph nodes, and extensive lysis of adhesions. PATHOLOGY: A. Odum lymph node, right, biopsy: - Isolated tumor cells involving 1 of 2 lymph nodes; see comment. B. 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 C. Uterus with cervix, right and left fallopian tubes, and ovaries, hysterectomy and bilateral salpingo-oophorectomy: - Cervix: No significant pathologic abnormality. - Endomyometrium: Endometrial endometrioid carcinoma with squamous differentiation, FIGO grade 2, invading outer myometrium (18 mm out of 19 mm, 95%) and showing extensive/multifocal lymphovascular invasion and the microcystic, elongated, and fragmented (MELF) pattern of invasion; see comment and synoptic report. - Serosa: No significant pathologic abnormality. - Bilateral ovaries: Adhesions. - Right fallopian tube: Hematosalpinx, no definitive carcinoma. - Left fallopian tube: Metastatic carcinoma. Mismatch repair (MMR) interpretation: Deficient mismatch repair (dMMR) Results Mismatch Repair Protein Immunohistochemistry Results: MLH1: Loss of Nuclear Expression (subclonal/focal loss) PMS2: Loss of Nuclear Expression (subclonal/focal loss) MSH2: Normal/Intact Nuclear Expression MSH6: Normal/Intact Nuclear Expression IMAGING: CT ABD/PELVIS: 06/16/2022 IMPRESSION: 1. Findings compatible with cystitis. 2. Approximately 8.5 cm tubular/serpiginous cystic lesion in the right adnexal region suspect for hydrosalpinx though right ovarian cystic lesion not excluded with certainty. Mild infiltration of the surrounding fat raises suspicion for the possibility of superinfection. A few small bowel loops in the pelvis appear tethered around this right adnexal cystic lesion and a short segment of sigmoid colon abuts the posterior aspect of this right adnexal lesion. 3. Small volume pelvic free fluid. 4. Heterogeneous appearance of the uterus potentially related to fibroids. Further evaluation with dedicated pelvic ultrasound would be of value. CXR: 07/22/2022 IMPRESSION: Left basilar mild atelectasis. TUMOR BOARD: Management Options: -Recommend adjuvant treatment with systemic therapy, carbo/taxol +/- pembrolizumab -Referral to genetics Per initial consultation here: No vaginal discharge or bleeding. Bowels moving regularly. Good appetite. Pain is gone. Subjectively voiding to completion. Fingertip and toes numb. Had it approximately 3 years. Orthostasis if stands quickly. Balance has been "off" for about 6 months. Used WC to come in from [facility]. Uses cane and walker in the home. Lives in basement of sister's house. Capable of all ADLs independently. Uses shower chair. She and sister share cooking. Drives. Low back pain can limit her walking--symptoms are consistent with spinal stenosis. Previous therapy: 1) Paclitaxel and carboplatin and pembrolizumab. First 2 cycles without pembrolizumab. Had EGD. Results noted. ?Gastroparesis. Was admitted to [facility] 01/24 ago for urosepsis. Admitted 2 days. Glimepiride was held. Completed antibiotic Wednesday. Had no urinary symptoms. Family found her at the table acting disoriented. Previously saw carrier associate at [facility] for reduced EF. Started on Jaurdiance. Presents for ongoing oncologic management. OV 11/2023: She was admitted in August of her hypoxemic/hypercapnic respiratory failure. Was in CHF. Continues living in a walkout basement and her sisters home. She has frequent orthostasis. Not able to do much in the kitchen so her sister has arranged for Meals on Wheels. However she can walk fairly well around the house with her walker. Neuropathy symptoms are no worse. Fingertips are involved. She does not cook for fear of burning herself. Numbness in the feet comes to just above the ankles. No chest pain. No palpitation or sensation of tachycardia. Has oxygen since the time of discharge from [facility]. Uses it at night all the time. Not so much during the day unless she is walking around the house. Appetite has been normal. No abdominal pain. Bowels have been working regularly with formed stools. She has occasional diarrhea. Not daily. Able to void her bladder well. Completed radiation (03/10/2024) treatment to pleural-based inferior right lung nodule that had increased in size on CT 01/18/2024. Other nodules had remained stable. Presents for ongoing oncologic management. OV 05/23/2024: 1 dose of gemcitabine 04/25. Admitted to [facility] with UTI. She was discharged home but very weak. Readmitted to [facility] for hypoxemic respiratory failure. She required BiPAP. She was in the ICU for concern of pneumonia. Positive for RSV. Managed with supportive care and gradually improved. Completed course of antibiotics and steroids while she was in the hospital. She was seen in consultation by gastroenterology for hepatocellular injury. Attributed to fatty liver. During the hospitalization at [place], CTA of the chest revealed that the left upper lobe pulmonary nodule was larger when compared to previous study in April. No dimensions rendered. Was noted to have "slight increase". Ultrasound liver showed nodular contour suggesting cirrhosis. She was found to have splenomegaly with spleen measuring 14.8 cm. Home from skilled care this past Wednesday. Sister helps with showering. Bedside commode for night use. Can get from chair to bathroom herself now during the day. Lingering cough. Some sputum--less than when sick. Bowels working well. Appetite improving. Denies pain. Presents for ongoing oncologic management. Interim history: Continues to have dull pain that migrates around abdomen has been noticing more on R side recently. No nausea, reflux. Bowels moving regularly. Had some urgency yesterday. No bleeding. Neuropathy in fingers seems to be worse. No improvements with cymbalta or gabapentin. BP now under better control. Taking consistently at home. Was 130/80 this morning. No MCKENZIE, vision changes. PMH, medications and allergies personally reviewed by me today. Any changes documented in appropriate section. PHYSICAL EXAM: Vitals: Blood pressure 130/85, pulse 67, temperature 36.5 C (97.7 F), temperature source Temporal, weight 133.1 kg (293 lb 8 oz), SpO2 96%. Well-appearing and in no acute distress. EYES: Sclerae are anicteric bilaterally. CARDIOVASCULAR: Rhythm is regular. ABDOMEN: The abdomen is nondistended. Tender. I have performed the physical exam today (08/01/2024) and have edited the note to correlate with current findings. 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 ASSESSMENT/PLAN: (C54.1) Endometrial cancer (HCC) (primary encounter diagnosis) (C80.0) Carcinomatosis (HCC) Lung metastases. 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 -ECOG PS remains 3. -Significant comorbid conditions including type 2 diabetes with pre-existing sensory neuropathy. She had impaired gait and mobility from spinal stenosis as well. Nonetheless she stood to benefit significantly from adjuvant therapy with carboplatin, paclitaxel and pembrolizumab based on the reported results of the NRG-GY018 trial. -Pembrolizumab was added with cycle #3. Received 5 cycles. Therapy held following due to worsening neuropathy and general decline. -Diagnosed with immunotherapy induced cardiomyopathy. Reviewed echo--improved LVEF. -Neuropathy stable, pt states that this is potentially worsening today -Cts 06/20/24 with PD -Dr. Branham recommended bevacizumab based off of PS. - started 07/10/2024 Plan: -Continue with C2 Avastin -UA with each cycle. -CBC/CMP each cycle. -OV for cycle #3. -CT after 3 cycles. Maisha Edmonds APRN.DIRECTOR MARKETING I spent a total of 30 minutes on the date of the service which included preparing to see the patient, [id number] patient care, completing clinical documentation, obtaining and/or reviewing separately obtained history, performing a medically appropriate examination, and ordering medications, tests, or procedures. Portions of this note including HPI, ROS, impression/plan may have been copied forward as to provide important historical information essential in contributing to medical decision making. Documentation has been reviewed and edited as necessary to support clinical decision making for today's visit and to reflect my own independent evaluation of this patient. documented in this encounter [facility] 07-27-2024 Telephone encounter Note Great. Thank you. Nora Branham DO [facility] 07-27-2024 Miscellaneous Notes Great. Thank you. Nora Branham DO Spoke to sister. BP "has been going down". 07/27: 158/97 07/26: 158/86 07/25: 141/86 07/24: 140/80 Sister denies any other symptoms concerns at this time. Reena Peace RN Patient called back and received message. Patient wrote the message down and repeated instructions back with verbal teach-back. Called and spoke Milagro and informed her that patient called back and received the message. Discussed the new instructions with Milagro, Milagro stated understanding. Reena Peace RN Called patient, no answer, left a VM requesting a call back. Called sister, no answer, left a detailed VM with medication instructions and requested Milagro to give our office a call back to let us know she received the message. This nurse stated on the VM that Amlodipine was sent to [facility] in [place] and to try to crop picker tonight to start. Reena Peace RN Should work fairly quickly, but needs better control. Increase valsartan to 160 mg at HS (4 tablets). Add amlodipine 10 mg at HS. Rx sent. Nora Branham DO This morning upon waking up her BP was 196/105 p 78 then about 30 minutes later 173/92. Half an hour ago her BP was 188/104 then 184/99 shortly after. Eating as normal. Seems tired per sister She feels "a little lightheaded" Denies feeling dizzy or having a headache. Sister asks if she has any palpitations, which she denies. Started increased dose of Valsartan last night at bedtime. Sister asking if they should expect a decrease in her BP readings after just one dose. Call patient if any instructions or questions. Uma Pinto LPN documented in this encounter [facility] 07-27-2024 Telephone encounter Note Spoke to sister. BP "has been going down". 07/27: 158/97 07/26: 158/86 07/25: 141/86 07/24: 140/80 Sister denies any other symptoms concerns at this time. Reena Peace RN [facility] 07-20-2024 Telephone encounter Note Patient called back and received message. Patient wrote the message down and repeated instructions back with verbal teach-back. Called and spoke Milagro and informed her that patient called back and received the message. Discussed the new instructions with Milagro, Milagro stated understanding. Reena Peace RN [facility] 07-20-2024 Telephone encounter Note Called patient, no answer, left a VM requesting a call back. Called sister, no answer, left a detailed VM with medication instructions and requested Milagro to give our office a call back to let us know she received the message. This nurse stated on the VM that Amlodipine was sent to [facility] in [place] and to try to crop picker tonight to start. Reena Peace RN [facility] 07-20-2024 Telephone encounter Note Should work fairly quickly, but needs better control. Increase valsartan to 160 mg at HS (4 tablets). Add amlodipine 10 mg at HS. Rx sent. Nora Branham DO [facility] 07-20-2024 Telephone encounter Note This morning upon waking up her BP was 196/105 p 78 then about 30 minutes later 173/92. Half an hour ago her BP was 188/104 then 184/99 shortly after. Eating as normal. Seems tired per sister She feels "a little lightheaded" Denies feeling dizzy or having a headache. Sister asks if she has any palpitations, which she denies. Started increased dose of Valsartan last night at bedtime. Sister asking if they should expect a decrease in her BP readings after just one dose. Call patient if any instructions or questions. Uma Pinto LPN [facility] 07-18-2024 Note [facility] 07-12-2024 Telephone encounter Note CYCLE 1/DAY 1 POST TREATMENT CALL Today's date: July 12, 2024 Treatment Regimen: Avastin C1D1 Date: 07/11/24 Called patient to follow-up on symptom management. Spoke with patient SYMPTOM ASSESSMENT Neuro: Headache this morning, took tylenol which helped alleviate the pain. Checked BP this AM 140/?, patient wasn't sure of the reading. Patient will continue to monitor and check later today. Discussed when to report BP. CV/Resp: None GI/: None Denies N/V/D Appetite good Integument: None Activity: Patient reported no changes in energy level, energy level good Pain: "just a little pain in the stomach but that's always there". Feels like "period cramps", started a couple days ago. Intermittent. Bowels are moving well. "In the middle, below your belly button". 03/10. Reviewed s/s of when to call. Fever: No Chills: No Any new referrals needed? No Reinforced CURRENT treatment education based on current and anticipated symptoms. Discussed port/line care and patient verbalizes understanding: Yes Patient instructed to contact office or after hours Hematology/Oncology fellow for: temperature >= 100.4; questions or concerns. Patient verbalized understanding of when to seek medical attention and after hours number protocol. Reena Peace RN [facility] 07-12-2024 Miscellaneous Notes CYCLE 1/DAY 1 POST TREATMENT CALL Today's date: July 12, 2024 Treatment Regimen: Avastin C1D1 Date: 07/11/24 Called patient to follow-up on symptom management. Spoke with patient SYMPTOM ASSESSMENT Neuro: Headache this morning, took tylenol which helped alleviate the pain. Checked BP this AM 140/?, patient wasn't sure of the reading. Patient will continue to monitor and check later today. Discussed when to report BP. CV/Resp: None GI/: None Denies N/V/D Appetite good Integument: None Activity: Patient reported no changes in energy level, energy level good Pain: "just a little pain in the stomach but that's always there". Feels like "period cramps", started a couple days ago. Intermittent. Bowels are moving well. "In the middle, below your belly button". 03/10. Reviewed s/s of when to call. Fever: No Chills: No Any new referrals needed? No Reinforced CURRENT treatment education based on current and anticipated symptoms. Discussed port/line care and patient verbalizes understanding: Yes Patient instructed to contact office or after hours Hematology/Oncology fellow for: temperature >= 100.4; questions or concerns. Patient verbalized understanding of when to seek medical attention and after hours number protocol. Reena Peace RN documented in this encounter [facility] 07-07-2024 Telephone encounter Note Prescription Refill Information The patient has been identified by name and date of : Yes Caregiver verified no other encounters exist for this prescription request: Yes Caregiver confirmed with patient/requestor that no other refills are due, in the near future, with this provider at this time: Yes The last office visit in the department: 05/25/24 Does the patient have a future office visit with this provider/department: Yes, 09/05/24 Requested Prescriptions Pending Prescriptions Disp Refills gabapentin (NEURONTIN) 100 mg capsule 180 capsule 1 Sig: Take 1 capsule by mouth two times a day for 180 days. *Last rx written 03/13/24 #180 with 1 refill. Pt is not due for refill. MC message to pt advising of the same. Nain Koenig LPN July 07, 2024 9:35 AM [facility] 07-07-2024 Miscellaneous Notes Prescription Refill Information The patient has been identified by name and date of : Yes Caregiver verified no other encounters exist for this prescription request: Yes Caregiver confirmed with patient/requestor that no other refills are due, in the near future, with this provider at this time: Yes The last office visit in the department: 05/25/24 Does the patient have a future office visit with this provider/department: Yes, 09/05/24 Requested Prescriptions Pending Prescriptions Disp Refills gabapentin (NEURONTIN) 100 mg capsule 180 capsule 1 Sig: Take 1 capsule by mouth two times a day for 180 days. *Last rx written 03/13/24 #180 with 1 refill. Pt is not due for refill. MC message to pt advising of the same. Nain Koenig LPN July 07, 2024 9:35 AM documented in this encounter [facility] 07-04-2024 Telephone encounter Note Please advise if OK for Anupam Flynn LPN [facility] 07-04-2024 Miscellaneous Notes Please advise if OK for Anupam Flynn LPN Patient sister is calling stating that insurance is not covering Breo Ellipta. If doctor is wanting patient to continue with this inhaler it would need prior authorized. Other options per insurance: Wixela,propinate, or funesidmide Please review and advise further. Carolyn Bell LPN documented in this encounter [facility] 07-04-2024 Telephone encounter Note Patient sister is calling stating that insurance is not covering Breo Ellipta. If doctor is wanting patient to continue with this inhaler it would need prior authorized. Other options per insurance: Wixela,propinate, or funesidmide Please review and advise further. Carolyn Bell LPN [facility] 07-04-2024 Telephone encounter Note ONCOLOGY PATIENT EDUCATION NOTE TOPIC: Chemotherapy, Medications: Avastin patient called today for education for treatment of Endometrial Cancer Anticipated/Scheduled start date: 07/11/24 READINESS TO LEARN: COGNITIVE ABILITY: Alert and oriented MOTIVATION TO LEARN: Interested FAMILY SUPPORT: High - Very involved in pt care INSTRUCTION PROVIDED TO: Sister INSTRUCTION PROVIDED BY: Nurse Coordinator PATIENT LEARNS BEST BY: Multiple Methods FACTORS AFFECTING LEARNING: None PHYSICAL LIMITATIONS AFFECTING LEARNING: None LEARNING RESPONSE METHOD OF INSTRUCTION: Written instruction/Handouts PATIENT/FAMILY RESPONSE: Verbalizes understanding of: CHEMOTHERAPY-Regimen, toxicity and side effects FOLLOW UP PLAN: Patient instructed to call with any further issues Recommend - Recommend continued instruction and follow up as directed Follow up phone call. Contact information given. SUPPLEMENTAL MATERIAL: Written material was provided at this visit with the following information: - Chemotherapy education was provided by a pharmacist NO - Side effect management information was provided/discussed including but not limited to: diet, fatigue, hypertension, and impaired wound healing YES - Provided important phone numbers and contacts during and after hours. YES - Provided information on symptoms that require immediate assistance. YES - Provided Chemotherapy "when to call" handouts YES - Preventing infection. YES - Treatment schedule and confirmation of appointment times. YES - Available support groups. YES - The importance of contraception during the course of chemotherapy YES - Neutropenic fever protocol discussed with patient, which included the importance of reporting any fever of 100.4F (38.0C) or greater to the healthcare team as noted on the provided wallet card and/or magnet. YES Time Spent: 20 minutes REFERRAL (RECOMMENDATION): N/A Reena Peace RN [facility] 07-04-2024 Miscellaneous Notes ONCOLOGY PATIENT EDUCATION NOTE TOPIC: Chemotherapy, Medications: Avastin patient called today for education for treatment of Endometrial Cancer Anticipated/Scheduled start date: 07/11/24 READINESS TO LEARN: COGNITIVE ABILITY: Alert and oriented MOTIVATION TO LEARN: Interested FAMILY SUPPORT: High - Very involved in pt care INSTRUCTION PROVIDED TO: Sister INSTRUCTION PROVIDED BY: Nurse Coordinator PATIENT LEARNS BEST BY: Multiple Methods FACTORS AFFECTING LEARNING: None PHYSICAL LIMITATIONS AFFECTING LEARNING: None LEARNING RESPONSE METHOD OF INSTRUCTION: Written instruction/Handouts PATIENT/FAMILY RESPONSE: Verbalizes understanding of: CHEMOTHERAPY-Regimen, toxicity and side effects FOLLOW UP PLAN: Patient instructed to call with any further issues Recommend - Recommend continued instruction and follow up as directed Follow up phone call. Contact information given. SUPPLEMENTAL MATERIAL: Written material was provided at this visit with the following information: - Chemotherapy education was provided by a pharmacist NO - Side effect management information was provided/discussed including but not limited to: diet, fatigue, hypertension, and impaired wound healing YES - Provided important phone numbers and contacts during and after hours. YES - Provided information on symptoms that require immediate assistance. YES - Provided Chemotherapy "when to call" handouts YES - Preventing infection. YES - Treatment schedule and confirmation of appointment times. YES - Available support groups. YES - The importance of contraception during the course of chemotherapy YES - Neutropenic fever protocol discussed with patient, which included the importance of reporting any fever of 100.4F (38.0C) or greater to the healthcare team as noted on the provided wallet card and/or magnet. YES Time Spent: 20 minutes REFERRAL (RECOMMENDATION): N/A Reena Peace RN documented in this encounter [facility] 07-03-2024 Telephone encounter Note 2 cycles scheduled start email sent [facility] Work Phone: 07-03-2024 Miscellaneous Notes 2 cycles scheduled start email sent AVS 5/5 Begin Avastin when able. UA (RAMO) with each cycle. CBC/CMP each cycle. OV with DEPUTY CITY CLERK for cycle #2. CHEMO ED WILL BE IMPROMPTO PER REENA- Patient aware this nurse will call her 07/04 or 07/05. Reena Peace RN documented in this encounter [facility] 07-03-2024 Miscellaneous Notes Met with patient. Patient was given a folder with chemocare information, office contact information, and additional chemotherapy resource handouts. Patient aware this nurse will review on scheduled appointment date. Reena Peace RN documented in this encounter [facility] 07-03-2024 Telephone encounter Note Met with patient. Patient was given a folder with chemocare information, office contact information, and additional chemotherapy resource handouts. Patient aware this nurse will review on scheduled appointment date. Reena Peace RN [facility] 07-03-2024 Telephone encounter Note AVS 5/5 Begin Avastin when able. UA (RAMO) with each cycle. CBC/CMP each cycle. OV with DEPUTY CITY CLERK for cycle #2. CHEMO ED WILL BE IMPROMPTO PER REENA- Patient aware this nurse will call her 07/04 or 07/05. 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 HPI: The patient is a 78-year-old female with a past medical history significant for hypertension, hyperlipidemia, GERD, type 2 diabetes (diagnosed about age 60; neuropathy), total knee replacement, former smoker and recent diagnosis of endometrial cancer. SURGERY & DATE: 07/24/2022 - Exam under anesthesia, total laparoscopic hysterectomy, bilateral salpingo-oophorectomy, sentinel lymph node mapping with excision of bilateral pelvic sentinel lymph nodes, and extensive lysis of adhesions. PATHOLOGY: A. Odum lymph node, right, biopsy: - Isolated tumor cells involving 1 of 2 lymph nodes; see comment. B. 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 C. Uterus with cervix, right and left fallopian tubes, and ovaries, hysterectomy and bilateral salpingo-oophorectomy: - Cervix: No significant pathologic abnormality. - Endomyometrium: Endometrial endometrioid carcinoma with squamous differentiation, FIGO grade 2, invading outer myometrium (18 mm out of 19 mm, 95%) and showing extensive/multifocal lymphovascular invasion and the microcystic, elongated, and fragmented (MELF) pattern of invasion; see comment and synoptic report. - Serosa: No significant pathologic abnormality. - Bilateral ovaries: Adhesions. - Right fallopian tube: Hematosalpinx, no definitive carcinoma. - Left fallopian tube: Metastatic carcinoma. Mismatch repair (MMR) interpretation: Deficient mismatch repair (dMMR) Results Mismatch Repair Protein Immunohistochemistry Results: MLH1: Loss of Nuclear Expression (subclonal/focal loss) PMS2: Loss of Nuclear Expression (subclonal/focal loss) MSH2: Normal/Intact Nuclear Expression MSH6: Normal/Intact Nuclear Expression IMAGING: CT ABD/PELVIS: 06/16/2022 IMPRESSION: 1. Findings compatible with cystitis. 2. Approximately 8.5 cm tubular/serpiginous cystic lesion in the right adnexal region suspect for hydrosalpinx though right ovarian cystic lesion not excluded with certainty. Mild infiltration of the surrounding fat raises suspicion for the possibility of superinfection. A few small bowel loops in the pelvis appear tethered around this right adnexal cystic lesion and a short segment of sigmoid colon abuts the posterior aspect of this right adnexal lesion. 3. Small volume pelvic free fluid. 4. Heterogeneous appearance of the uterus potentially related to fibroids. Further evaluation with dedicated pelvic ultrasound would be of value. CXR: 07/22/2022 IMPRESSION: Left basilar mild atelectasis. TUMOR BOARD: Management Options: -Recommend adjuvant treatment with systemic therapy, carbo/taxol +/- pembrolizumab -Referral to genetics Per initial consultation here: No vaginal discharge or bleeding. Bowels moving regularly. Good appetite. Pain is gone. Subjectively voiding to completion. Fingertip and toes numb. Had it approximately 3 years. Orthostasis if stands quickly. Balance has been "off" for about 6 months. Used to come in from [facility]. Uses cane and walker in the home. Lives in basement of sister's house. Capable of all ADLs independently. Uses shower chair. She and sister share cooking. Drives. Low back pain can limit her walking--symptoms are consistent with spinal stenosis. Previous therapy: 1) Paclitaxel and carboplatin and pembrolizumab. First 2 cycles without pembrolizumab. Had EGD. Results noted. ?Gastroparesis. Was admitted to [facility] 01/24 ago for urosepsis. Admitted 2 days. Glimepiride was held. Completed antibiotic Wednesday. Had no urinary symptoms. Family found her at the table acting disoriented. Previously saw carrier associate at [facility] for reduced EF. Started on Jaurdiance. Presents for ongoing oncologic management. OV 11/2023: She was admitted in August of her hypoxemic/hypercapnic respiratory failure. Was in CHF. Continues living in a walkout basement and her sisters home. She has frequent orthostasis. Not able to do much in the kitchen so her sister has arranged for Meals on Wheels. However she can walk fairly well around the house with her walker. Neuropathy symptoms are no worse. Fingertips are involved. She does not cook for fear of burning herself. Numbness in the feet comes to just above the ankles. No chest pain. No palpitation or sensation of tachycardia. Has oxygen since the time of discharge from [facility]. Uses it at night all the time. Not so much during the day unless she is walking around the house. Appetite has been normal. No abdominal pain. Bowels have been working regularly with formed stools. She has occasional diarrhea. Not daily. Able to void her bladder well. Completed radiation (03/10/2024) treatment to pleural-based inferior right lung nodule that had increased in size on CT 01/18/2024. Other nodules had remained stable. Presents for ongoing oncologic management. OV 05/23/2024: 1 dose of gemcitabine 04/25. Admitted to [facility] with UTI. She was discharged home but very weak. Readmitted to [facility] for hypoxemic respiratory failure. She required BiPAP. She was in the ICU for concern of pneumonia. Positive for RSV. Managed with supportive care and gradually improved. Completed course of antibiotics and steroids while she was in the hospital. She was seen in consultation by gastroenterology for hepatocellular injury. Attributed to fatty liver. During the hospitalization at [place], CTA of the chest revealed that the left upper lobe pulmonary nodule was larger when compared to previous study in April. No dimensions rendered. Was noted to have "slight increase". Ultrasound liver showed nodular contour suggesting cirrhosis. She was found to have splenomegaly with spleen measuring 14.8 cm. Home from skilled care this past Wednesday. Sister helps with showering. Bedside commode for night use. Can get from chair to bathroom herself now during the day. Lingering cough. Some sputum--less than when sick. Bowels working well. Appetite improving. Denies pain. Presents for ongoing oncologic management. Interim history: Occasional dull pain that migrates around abdomen. No nausea, reflux. Bowels moving regularly. PMH, medications and allergies personally reviewed by me today. Any changes documented in appropriate section. PHYSICAL EXAM: Vitals: Blood pressure 129/80, pulse 85, temperature 36.3 C (97.3 F), temperature source Temporal, weight 130.6 kg (288 lb), SpO2 93%. Well-appearing and in no acute distress. EYES: Sclerae are anicteric bilaterally. LYMPHATIC: There is no palpable cervical or supraclavicular adenopathy. CARDIOVASCULAR: Rhythm is regular. ABDOMEN: The abdomen is nondistended. Tender without mass right upper quadrant. 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 ASSESSMENT/PLAN: (C54.1) Endometrial cancer (HCC) (primary encounter diagnosis) (C80.0) Carcinomatosis (HCC) Lung metastases. 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 -ECOG PS remains 3. -Significant comorbid conditions including type 2 diabetes with pre-existing sensory neuropathy. She had impaired gait and mobility from spinal stenosis as well. Nonetheless she stood to benefit significantly from adjuvant therapy with carboplatin, paclitaxel and pembrolizumab based on the reported results of the NRG-GY018 trial. -Pembrolizumab was added with cycle #3. Received 5 cycles. Therapy held following due to worsening neuropathy and general decline. -Diagnosed with immunotherapy induced cardiomyopathy. Reviewed echo--improved LVEF. -Neuropathy stable. -Reviewed CTs. PD. -Recommended bevacizumab. I think that's the best she could tolerate at this time. I discussed the rationale, logistics, potential risks (including but not limited to cardiovascular events, bleeding, proteinuria, hypertension and the small potential for as a consequence of severe toxicity/complications of therapy), benefits and alternatives, as well as the personnel involved in the administration of bevacizumab. I answered her and her sister's questions in detail and she verbalized understanding and agreed with the recommended therapy. Please see the electronic consent document for details of doses and schedule. Plan: -Begin Avastin when able. -UA with each cycle. -CBC/CMP each cycle. -OV for cycle #2. -CT after 3 cycles. Portions of this documentation were copied and pasted from my previous office visit note dated 05/23/2024 in order to provide a cohesive continuity of the history. The note has been reviewed and edited and updated as necessary. Nora Branham DO documented in this encounter [facility] 06-20-2024 History of Present illness Narrative Radiology Service Progress Note DATE OF SERVICE: June 20, 2024 TIME: 3:55 PM PATIENT IDENTITY VERIFICATION COMPLETED USING TWO (2) STANDARD IDENTIFIERS: Name and Date of confirmed by patient verbally. FALL SCREENING: Has the patient had 2 falls in the last year or 1 fall with injury or currently using an Ambulatory Assistive Device (Walker, Cane, Wheelchair, Crutches, etc.)? No PATIENT GENDER DATA: Assigned female at . status: : No status: NO. PATIENT RELEVANT IMPLANT DATA REVIEWED: Yes PATIENT PRESENTS WITH AN IMPLANTABLE OR ATTACHED KENNEL STAFF MEMBER: No ALLERGIES: Reviewed and unchanged CONTRAST ALLERGY: NO. EXAM: CT -CONTRAST INDUCED NEPHROPATHY RISK FACTORS: Patient age > 60 years CREATININE: Creatinine Date Value Ref Range Status 06/20/2024 1.03 (H) 0.58 - 0.96 mg/dL Final 05/09/2024 1.11 (H) 0.58 - 0.96 mg/dL Final 05/08/2024 1.07 (H) 0.58 - 0.96 mg/dL Final Estimated Glomerular Filtration Rate Date Value Ref Range Status 06/20/2024 56 (L) >=60 mL/min/1.73m Final Comment: Estimated Glomerular Filtration Rate (eGFR) is calculated using the 2020 CKD-EPI creatinine equation. This equation utilizes serum creatinine, sex, and age as parameters. The creatinine assay has traceable calibration to isotope dilution-mass spectrometry. Refer to KDIGO guidelines for clinical interpretation. In patients with unstable renal function, e.g. those with acute kidney injury, the eGFR may not accurately reflect actual GFR. eGFR- Date Value Ref Range Status 03/28/2020 >60 Final P.O.C.T. RESULTS: POC done: Yes, See Lab Tab June 20, 2024 TREATMENT: N/A PERIPHERAL IV DATA: Ambulatory: A peripheral IV was started in the Left antecubital site with a Angio cath: 22 gauge. RADIOLOGY DEPARTMENT: CT; Exam(s) Completed: Chest Abdomen Pelvis SIGNATURE: RT Adi(R) PATIENT NAME: Pricila Hooker DATE: June 20, 2024 TIME: 3:55 PM documented in this encounter [facility] 06-20-2024 Note [facility] 06-08-2024 Telephone encounter Note The following approved medication requests have been transmitted electronically. Requested Prescriptions Pending Prescriptions Disp Refills amitriptyline (ELAVIL) 50 mg tablet 30 tablet 5 Sig: Take 1 tablet by mouth daily at bedtime. Supa Matute APRN.CNP [facility] 06-08-2024 Miscellaneous Notes The following approved medication requests have been transmitted electronically. Requested Prescriptions Pending Prescriptions Disp Refills amitriptyline (ELAVIL) 50 mg tablet 30 tablet 5 Sig: Take 1 tablet by mouth daily at bedtime. Supa Matute APRN.CNP Prescription Refill Information The patient has been identified by name and date of : Yes Caregiver verified no other encounters exist for this prescription request: Yes Caregiver confirmed with patient/requestor that no other refills are due, in the near future, with this provider at this time: Yes The last office visit in the department: 05/25/24 Does the patient have a future office visit with this provider/department: Yes Requested Prescriptions Pending Prescriptions Disp Refills amitriptyline (ELAVIL) 50 mg tablet 30 tablet 5 Sig: Take 1 tablet by mouth daily at bedtime. Eli Elaine LPN June 07, 2024 1:06 PM documented in this encounter [facility] 06-07-2024 Telephone encounter Note Prescription Refill Information The patient has been identified by name and date of : Yes Caregiver verified no other encounters exist for this prescription request: Yes Caregiver confirmed with patient/requestor that no other refills are due, in the near future, with this provider at this time: Yes The last office visit in the department: 05/25/24 Does the patient have a future office visit with this provider/department: Yes Requested Prescriptions Pending Prescriptions Disp Refills amitriptyline (ELAVIL) 50 mg tablet 30 tablet 5 Sig: Take 1 tablet by mouth daily at bedtime. Eli Elaine LPN June 07, 2024 1:06 PM [facility] 06-04-2024 Telephone encounter Note I called and let Pricila know the below information and she stated understanding and confirmed her scheduled follow-up appt Mary Duarte Pss [facility] 06-04-2024 Miscellaneous Notes I called and let Pricila know the below information and she stated understanding and confirmed her scheduled follow-up appt Mary Duarte Pss Can let her know echocardiogram shows improved heart function which is great. Follow-up as scheduled. documented in this encounter [facility] 06-02-2024 Telephone encounter Note Can let her know echocardiogram shows improved heart function which is great. Follow-up as scheduled. [facility] 05-30-2024 Telephone encounter Note OK to refill as ordered Vinh Van MD [facility] 05-30-2024 Miscellaneous Notes OK to refill as ordered Vinh Van MD Prescription Refill Information The patient has been identified by name and date of : Yes Caregiver verified no other encounters exist for this prescription request: Yes Caregiver confirmed with patient/requestor that no other refills are due, in the near future, with this provider at this time: Yes The last office visit in the department: 05/25/2024 Does the patient have a future office visit with this provider/department: Yes Requested Prescriptions Pending Prescriptions Disp Refills metFORMIN (GLUCOPHAGE) 500 mg tablet 360 tablet 3 Sig: Take 2 tablets by mouth two times a day with meals. . Jillian Tomas LPN May 30, 2024 12:47 PM documented in this encounter [facility] 05-30-2024 Telephone encounter Note Prescription Refill Information The patient has been identified by name and date of : Yes Caregiver verified no other encounters exist for this prescription request: Yes Caregiver confirmed with patient/requestor that no other refills are due, in the near future, with this provider at this time: Yes The last office visit in the department: 05/25/2024 Does the patient have a future office visit with this provider/department: Yes Requested Prescriptions Pending Prescriptions Disp Refills metFORMIN (GLUCOPHAGE) 500 mg tablet 360 tablet 3 Sig: Take 2 tablets by mouth two times a day with meals. . Jillian Tomas LPN May 30, 2024 12:47 PM [facility] 05-29-2024 Telephone encounter Note Faxed recent ov notes to attn: [facility], per Roseann request. [facility] 05-29-2024 Miscellaneous Notes Faxed recent ov notes to attn: [facility], per Roseann request. documented in this encounter [facility] 05-29-2024 Telephone encounter Note Phoned Anika and given provider's message below with verbalized understanding. [facility] 05-29-2024 Miscellaneous Notes Phoned Anika and given provider's message below with verbalized understanding. Noted OK to continue with current prescriptions Vinh Van MD Anika with [facility] calls to let provider know of additional drug interactions noted when inputting medications in their system. Coreg interacts with Albuterol Coreg interacts with fluticasone-vilanterol Monika Teran RN documented in this encounter [facility] 05-29-2024 Telephone encounter Note Noted OK to continue with current prescriptions Vinh Van MD [facility] 05-26-2024 Telephone encounter Note Anika with [facility] calls to let provider know of additional drug interactions noted when inputting medications in their system. Coreg interacts with Albuterol Coreg interacts with fluticasone-vilanterol Monika Teran RN [facility] 05-25-2024 History of Present illness Narrative Images from the original note were not included. . [facility] [place] Note Patient name: Pricila Hooker PCP: Vinh Van MD CC: Hospital follow-up HPI: Pricila Hooker 78 year old female former remote smoker with PMH significant for obesity, hypoxemic and hypercapnic respiratory failure (likely ALEXX/OHS), current therapy with carboplatin for endometrial cancer, pulmonary nodules presumed to be metastases, DM, spinal stenosis, neuropathy and COPD. Active treatment plan for her metastatic endometrial cancer consisting of carboplatin alone as she developed significant neuropathy and cardiomyopathy from paclitaxel and pembrolizumab. She is only using supplemental oxygen, she has had 2 separate sleep studies but unable to sleep during her testing. At [facility] with DIRECTOR MARKETING, she had imaging showing enlargement of multiple pulmonary nodules, with recent evaluation per oncology. She is pending and is currently taking a therapy holiday as she comes rather ill following her infusions and usually ends up in the hospital. Recent history notable for admission to [facility] 05/02 - 05/09 for respiratory failure due to RSV infection and pneumonia. Required ICU stay with BiPAP. Intolerant of BiPAP. Last arterial blood gas shows compensated respiratory acidosis. Based on her recurrent hospital admissions, persistent hypercapnia, inability to perform sleep study and intolerance to BiPAP, patient would benefit from NIV. Current respiratory symptoms consist of shortness of breath, occasional cough but no significant sputum production, no audible wheezing. Patient is compliant with use of inhalers. DME: [employer] 2 L Labs: Component Ref Range & Units 2 wk ago (05/08/24) pH, Arterial 7.35 - 7.45 7.43 pH, Temp Corrected, Arterial pCO2, Arterial 36 - 46 mm Hg 65 High pCO2, Temp Corrected, Arterial pO2, Arterial 85 - 95 mm Hg 62 Low pO2, Temp Corrected, Arterial Bicarbonate, Arterial 22 - 26 mmol/L 43 High O2 Saturation, Arterial 95 - 98 % 91 Low Base Excess, Arterial 0 - 2 mmol/L 16 High Oxyhemoglobin, Arterial 95 - 98 % 90 Low Carboxyhemoglobin, Arterial 0.0 - 2.0 % 1.5 Comment: Carboxyhemoglobin Reference Range for Smokers: 2.0-8.0% Methemoglobin, Arterial 0.0 - 1.5 % <1.0 Potassium, Whole Blood 3.5 - 5.0 mmol/L 4.5 Lactate 0.5 - 2.2 mmol/L 1.0 Hemoglobin, Whole Blood 11.5 - 15.5 g/dL 11.7 Liters Liters/min 2 Imaging / Diagnostic Studies: DATE OF EXAM: May 01 2024 11:49PM [facility] 0564 - CTA CHEST (NON GATED) W IVCON PE / PROCEDURE REASON: Pulmonary embolism (PE) suspected, high prob Lung parenchyma and airways: Atelectasis versus consolidation in the RIGHT lower lobe. Slight increase in size of a 1 cm LEFT upper lobe pulmonary nodule. Nodular subpleural density in the anterior RIGHT upper lobe is similar to the previous study. Pleural space: Small bilateral pleural effusions. IMPRESSION: 1. Nondiagnostic evaluation for pulmonary emboli due to severe artifact. Severe artifact also limits evaluation of the upper abdomen and chest compared to previous studies. 2. Atelectasis consolidation in the RIGHT lower lobe. Small bilateral pleural effusions 3. Enlarged LEFT upper lobe pulmonary nodule compared to the previous exam. 4. Previously noted lesion at the posterior RIGHT costophrenic angle cannot be adequately evaluated on this exam due to artifact. Review of CT shows right lower lobe infiltrate and multiple pulmonary nodules Chest CT 04/2024: 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 CHF (congestive heart failure) (HCC) Immunotherapy induced COPD (chronic obstructive pulmonary disease) (HCC) Diabetes mellitus without mention of complication Endometrial cancer (HCC) GERD (gastroesophageal reflux disease) Hemorrhoids Hypercholesteremia Hypertension Neuropathy Obesity Obesity hypoventilation syndrome (HCC) Osteoarthritis of multiple joints ALLERGIES No Known Allergies ondansetron (ZOFRAN) 8 mg tablet Take 1 tablet by mouth every 8 hours as needed for nausea/vomiting. iv contrast (will be provided with radiology test) CT Chest W -Inject, intravenously, once for 1 dose.No IV access, insert saline lock prior to the beginning of sedation, infusion, injection of imaging exam. Discontinue saline lock post exam. If Pt. has a central line or IVAD, may access for administration according to line specific nursing protocol. Once exam is complete flush line and de-access according to line specific nursing protocol in the CT contrast administration guidelines link. iv contrast (will be provided with radiology test) CT ABD/PEL -Inject, intravenously, once for 1 dose.No IV access, insert saline lock prior to the beginning of sedation, infusion, injection of imaging exam. Discontinue saline lock post exam. If Pt. has a central line or IVAD, may access for administration according to line specific nursing protocol. Once exam is complete flush line and de-access according to line specific nursing protocol in the CT contrast administration guidelines link. enteric contrast (will be provided with radiology test) For CT ABD/PEL W IVCON Routine order Administer, As Directed One Time Only, via Oral, Rectal, both Oral and Rectal, Enteric Tube, Stoma or Indwelling Catheter, Enteric Contrast as designated per enteric contrast guidelines benzocaine-menthol (CEPACOL) 15-3.6 mg lozg Use 1 Lozenge as instructed every 2 hours as needed (Cough 1st line). (Patient not taking: Reported on 05/25/2024) benzonatate (TESSALON PERLE) 100 mg capsule Take 1 capsule by mouth three times a day as needed for cough (cough 2nd line). (Patient not taking: Reported on 05/25/2024) calcium carbonate (TUMS) 500 mg chew Take 2 tablets by mouth three times a day as needed (GERD 1st line). (Patient not taking: Reported on 05/25/2024) guaiFENesin-dextromethorphan (ROBITUSSIN DM) 100-10 mg/5 mL syrup Take 10 mL by mouth every 4 hours as needed for cough (3rd line). ipratropium-albuterol (DUONEB) 0.5 mg-3 mg(2.5 mg base)/3 mL nebu Inhale 3 mL as instructed every 4 hours as needed for wheezing/shortness of breath. (Patient not taking: Reported on 05/23/2024) melatonin 3 mg tablet Take 1 tablet by mouth at bedtime as needed (insomnia 1st line). (Patient not taking: Reported on 05/23/2024) polyethylene glycol 3350 17 gram packet Take 1 Packet by mouth once daily as needed. Dissolve dose in 4 - 8 ounces of liquid and take as directed. (Patient not taking: Reported on 05/25/2024) torsemide (DEMADEX) 20 mg tablet Take 1 tablet by mouth once daily. (Patient not taking: Reported on 05/23/2024) valsartan (DIOVAN) 40 mg tablet Take 1 tablet by mouth once daily. (Patient not taking: Reported on 05/23/2024) carvedilol (COREG) 3.125 mg tablet Take 2 tablets by mouth two times a day with meals. iv contrast (will be provided with radiology test) CT Chest W -Inject, intravenously, once for 1 dose.No IV access, insert saline lock prior to the beginning of sedation, infusion, injection of imaging exam. Discontinue saline lock post exam. If Pt. has a central line or IVAD, may access for administration according to line specific nursing protocol. Once exam is complete flush line and de-access according to line specific nursing protocol in the CT contrast administration guidelines link. iv contrast (will be provided with radiology test) CT ABD/PEL -Inject, intravenously, once for 1 dose.No IV access, insert saline lock prior to the beginning of sedation, infusion, injection of imaging exam. Discontinue saline lock post exam. If Pt. has a central line or IVAD, may access for administration according to line specific nursing protocol. Once exam is complete flush line and de-access according to line specific nursing protocol in the CT contrast administration guidelines link. enteric contrast (will be provided with radiology test) For CT ABD/PEL W IVCON Routine order Administer, As Directed One Time Only, via Oral, Rectal, both Oral and Rectal, Enteric Tube, Stoma or Indwelling Catheter, Enteric Contrast as designated per enteric contrast guidelines gabapentin (NEURONTIN) 100 mg capsule Take 1 capsule by mouth two times a day for 180 days. DULoxetine (CYMBALTA) 60 mg capsule Take 1 capsule by mouth once daily (Patient not taking: Reported on 05/25/2024) fluticasone-vilanterol (BREO ELLIPTA) 100-25 mcg/dose inhaler Inhale 1 Inhalation as instructed once daily. amitriptyline (ELAVIL) 50 mg tablet Take 1 tablet by mouth daily at bedtime. triamcinolone acetonide (KENALOG) 0.1 % ointment Apply to affected area two times a day. glimepiride (AMARYL) 4 mg tablet Take 1 tablet by mouth two times a day with meals. atorvastatin (LIPITOR) 40 mg tablet TAKE 1 TABLET BY MOUTH ONCE DAILY AT BEDTIME FOR CHOLESTEROL metFORMIN (GLUCOPHAGE) 500 mg tablet Take 2 tablets by mouth two times a day with meals. . Blood Pressure Monitor Take your blood pressure everyday and keep a log aspirin 81 mg cap Take 81 mg by mouth once daily. silver sulfADIAZINE (SILVADENE) 1 % cream Apply to affected area once daily. Magnesium Chloride (SLOW-MAG) 71.5 mg TbEC Take 1 tablet by mouth twice daily. lidocaine-prilocaine (EMLA) 2.5-2.5 % cream Apply to affected area as needed. acetaminophen (TYLENOL EXTRA STRENGTH) 500 mg tablet Take 2 tablets by mouth every 6 hours as needed for pain. Lancets lancets Test one time daily, Insulin Dep? No E11.9 DM 2 alcohol swabs (ALCOHOL PADS) Test one time daily, Insulin Dep? No E11.9 DM 2 blood sugar diagnostic (BLOOD GLUCOSE TEST) test strip Test one time daily, Insulin Dep? No E11.9 DM 2 dulaglutide (TRULICITY) 3 mg/0.5 mL pen injector Inject 3 mg subcutaneously one time a week. Patient Assistance Medication. Social History Tobacco Use Smoking status: Former Current packs/day: 0.00 Average packs/day: 0.5 packs/day for 20.0 years (10.0 ttl pk-yrs) Types: Cigarettes Start date: 11/05/1957 Quit date: 11/05/1977 Years since quittin.5 Smokeless tobacco: Never Vaping Use Vaping status: Never Used Substance Use Topics Alcohol use: No Drug use: No FAMILY HISTORY Problem Relation Age of Onset Heart Mother irregular heart rate Colon Cancer Mother Stroke Mother Heart Father from heart attack Colon Cancer Maternal Grandfather PAST SURGICAL HISTORY Procedure Laterality Date ABDOMINAL SURGERY HX ARTHRP KNE CONDYLE&PLATU MEDIAL&LAT COMPARTMENTS 05/11/2011 Knee replacement, total right ARTHRP KNE CONDYLE&PLATU MEDIAL&LAT COMPARTMENTS 01/2011 left CATARACT EXTRACTION HX Left COLONOSCOPY FLX DX W/COLLJ SPEC WHEN PFRMD 12/28/2007 Colonoscopy COLONOSCOPY FLX DX W/COLLJ SPEC WHEN PFRMD 06/17/2012 Colonoscopy COLONOSCOPY FLX DX W/COLLJ SPEC WHEN PFRMD 11/05/2017 Colonoscopy EGD W/O [facility] SPEC VARICIES INJ 11/25/2022 EYE SURGERY HX JOINT REPLACEMENT HX LAPS SURG CHOLECYSTECTOMY W/CHOLANGIOGRAPHY 01/04/2007 LAPS TOTAL HYSTERECT 250 GM/< W/RMVL TUBE/OVARY 07/24/2022 Exam under anesthesia, total laparoscopic hysterectomy, bilateral salpingo-oophorectomy, sentinel lymph node mapping with excision of bilateral pelvic sentinel lymph nodes, and extensive lysis of adhesions. PAST SURGICAL HISTORY OF N/A 05/11/2023 hx of heart cath PMH, Social history, family history and surgical history reviewed and updated in EMR REVIEW OF SYSTEMS: CONSTITUTIONAL: No fevers, chills, nightsweats, unintended weight loss HEENT: Denies nasal congestion/sinus symptoms. Dry mouth EYES: No visual changes CARDIOVASCULAR: No chest pain, palpitations. Edema PULM: See HPI GI: No dysphagia/odynophagia, problematic reflux. No abdominal pain : Recent UTI with delirium NEURO: Weakness. PSY: No concerns regarding depression INTEGUMENTARY: No new skin changes PHYSICAL EXAMINATION: BP 112/68 Pulse 80 Resp 16 SpO2 92% General Appearance: Obese elderly female in wheelchair. Skin: Skin color, texture, turgor normal, no suspicious rashes or lesions. Head: Normocephalic, no masses, lesions, tenderness or abnormalities. Eyes: Sclera, conjunctiva normal. Neck: No masses or adenopathy. Lungs: Not labored, normal to percussion, diminished breath sounds, no wheezes or crackles. Heart: Regular rate and rhythm, no murmur. Extremities: Edema, no clubbing. Assessment/Plan: 1. COPD -She will continue on Breo Ellipta with as needed albuterol 2. Chronic hypoxemic respiratory failure -Patient is compliant with and benefits from supplemental 3. Obesity hypoventilation syndrome -Chronic hypercapnic respiratory failure due to obesity and underlying COPD. Patient has had multiple admissions to the hospital requiring BiPAP but is intolerant of BiPAP and unable to perform sleep study -Patient would benefit from NIV to improve her symptoms, prevent hospitalization and decrease her mortality 4. Endometrial cancer with lung metastases -Treatment per oncology 5. Morbid obesity -BMI 43 -Weight loss advised Pamela Nelson MD [facility] [place] documented in this encounter [facility] 05-25-2024 Note [facility] 05-25-2024 Instructions Billie Hwang APRN.DIRECTOR MARKETING - 05/25/2024 2:16 PM EDT Get repeat labs in 3 months Continue to take all medication as prescribed Monitor fasting sugars at home I will reach out to clinical pharmacy to discuss Trulicity and Evelina coverage. Keep scheduled appointments with Dr. Nelson and [place] Follow up in 3 months or sooner as needed. documented in this encounter [facility] 05-25-2024 History of Present illness Narrative This is a 78 year old female who presents today with: Patient presents with: Follow Up: Hospital follow up HISTORY OF PRESENT ILLNESS: Pricila Hooker is a 78 year old female. Patient presents with: Follow Up: Hospital follow up HOSPITAL/ER FOLLOW UP: Reason for visit: Altered Mental Status Which facility: [facility] Date of visit: 04/27/2024 Diagnosis: Testing done: 2 days prior to hospital evaluation and started on a new chemotherapy, following with oncology, Dr. BREANNA VALENZUELA. Hemoglobin 8.7, decreased from 9.6. Platelets 125. INR 1.1, PT 14.3. Sodium, potassium, and creatinine was normal. Urinalysis showed leukocytes, negative nitrates, but positive bacteria noted. Will send for culture. Tested negative for COVID, flu, and RSV. Chest x-ray showed no acute cardiopulmonary processes. There may be a small left upper lobe pulmonary nodule. Recommending CT on a nonemergent basis. CT head and brain without contrast showed no acute intercranial abnormality. CT abdomen pelvis with IV contrast showed no obstruction or acute inflammatory process left-sided omental nodularity with mild thickening of the left pericolic gutter fascial plane and at least 1 small nodule with the pelvis concerning for metastatic disease. Enhancing lesion in the inferior pole of the left kidney noted. Trace bilateral pleural effusions subtle nodular contour of the liver correlate with liver enzymes. Anemic more than likely from chemotherapy. Did receive 2 units of packed red blood cells while in the hospital. Recommending possible outpatient transfusions due to continued anemia. Will discuss with oncology outpatient. Admitted for metabolic encephalopathy, UTI, and CT abdomen pelvis findings. Treatment given: IV Rocephin., Ceftriaxone, IV metronidazole. Instructed to hold her home medications and continue with insulin only. Instructed to continue with 3 L nasal cannula Discharged home on cefdinir 300 mg twice daily for 5 days. HOSPITAL/ER FOLLOW UP: Reason for visit: SOB Which facility: [facility] [place] Date of visit: 05/02/2024-05/09/2024 Diagnosis: Pneumonia, RSV Testing done: Creatinine 1.22, hyponatremia and hypokalemia noted. No lactic acidosis. proBNP 1638. Blood cultures obtained. Chest x-ray with infiltrates in the right lung thompson. Urinalysis positive for UTI. Treatment given: Placed on BiPAP. Started on vancomycin and cefepime. Palliative medicine was consulted. PT/OT recommend intermediate facility. Recommending outpatient sleep study for concerns of OSH. Patient not interested in PAP therapy. 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 Elevated LFTs had consult with GI, believed to be secondary to acute illness and a component of MAS LD. Recommending follow-up outpatient in 1 week. Has not needed torsemide 20 mg daily or valsartan 40 mg daily. BP at home has been stable. Was discharge from [facility] for transitional care for PT. Was at [facility]. Home now and doing well. Has at home nurse and PT once weekly at this time. Living with sister. Feel better since getting home. Breathing has been stable. Seeing Dr. Nelson, pulmonology today follow up. Eleavted LFT's would like to hold off from seeing gastroenterology. Refers that there is metastasis in that area. Will be seeing oncology after more advanced imaging is completed. Has Echo next week and then will be having repeat CT. Will follow up with Oncology. DM2: Fasting 120 in the morning. Getting Trulicity with [facility] program. Cannot afford medication without Evelina. Needs help restart a fine. PAST MEDICAL HISTORY: 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 CHF (congestive heart failure) (HCC) Immunotherapy induced Diabetes mellitus without mention of complication Endometrial cancer (HCC) GERD (gastroesophageal reflux disease) Hemorrhoids Hypercholesteremia Hypertension Neuropathy Obesity Osteoarthritis of multiple joints PAST SURGICAL HISTORY Procedure Laterality Date ABDOMINAL SURGERY HX ARTHRP KNE CONDYLE&PLATU MEDIAL&LAT COMPARTMENTS 05/11/2011 Knee replacement, total right ARTHRP KNE CONDYLE&PLATU MEDIAL&LAT COMPARTMENTS 01/2011 left CATARACT EXTRACTION HX Left COLONOSCOPY FLX DX W/COLLJ SPEC WHEN PFRMD 12/28/2007 Colonoscopy COLONOSCOPY FLX DX W/COLLJ SPEC WHEN PFRMD 06/17/2012 Colonoscopy COLONOSCOPY FLX DX W/COLLJ SPEC WHEN PFRMD 11/05/2017 Colonoscopy EGD W/O [facility] SPEC VARICIES INJ 11/25/2022 EYE SURGERY HX JOINT REPLACEMENT HX LAPS SURG CHOLECYSTECTOMY W/CHOLANGIOGRAPHY 01/04/2007 LAPS TOTAL HYSTERECT 250 GM/< W/RMVL TUBE/OVARY 07/24/2022 Exam under anesthesia, total laparoscopic hysterectomy, bilateral salpingo-oophorectomy, sentinel lymph node mapping with excision of bilateral pelvic sentinel lymph nodes, and extensive lysis of adhesions. PAST SURGICAL HISTORY OF N/A 05/11/2023 hx of heart cath ALLERGIES Patient has no known allergies. MEDICATIONS Current Outpatient Medications Medication Sig iv contrast (will be provided with radiology test) CT Chest W -Inject, intravenously, once for 1 dose.No IV access, insert saline lock prior to the beginning of sedation, infusion, injection of imaging exam. Discontinue saline lock post exam. If Pt. has a central line or IVAD, may access for administration according to line specific nursing protocol. Once exam is complete flush line and de-access according to line specific nursing protocol in the CT contrast administration guidelines link. iv contrast (will be provided with radiology test) CT ABD/PEL -Inject, intravenously, once for 1 dose.No IV access, insert saline lock prior to the beginning of sedation, infusion, injection of imaging exam. Discontinue saline lock post exam. If Pt. has a central line or IVAD, may access for administration according to line specific nursing protocol. Once exam is complete flush line and de-access according to line specific nursing protocol in the CT contrast administration guidelines link. enteric contrast (will be provided with radiology test) For CT ABD/PEL W IVCON Routine order Administer, As Directed One Time Only, via Oral, Rectal, both Oral and Rectal, Enteric Tube, Stoma or Indwelling Catheter, Enteric Contrast as designated per enteric contrast guidelines benzocaine-menthol (CEPACOL) 15-3.6 mg lozg Use 1 Lozenge as instructed every 2 hours as needed (Cough 1st line). benzonatate (TESSALON PERLE) 100 mg capsule Take 1 capsule by mouth three times a day as needed for cough (cough 2nd line). calcium carbonate (TUMS) 500 mg chew Take 2 tablets by mouth three times a day as needed (GERD 1st line). guaiFENesin-dextromethorphan (ROBITUSSIN DM) 100-10 mg/5 mL syrup Take 10 mL by mouth every 4 hours as needed for cough (3rd line). ipratropium-albuterol (DUONEB) 0.5 mg-3 mg(2.5 mg base)/3 mL nebu Inhale 3 mL as instructed every 4 hours as needed for wheezing/shortness of breath. (Patient not taking: Reported on 05/23/2024) melatonin 3 mg tablet Take 1 tablet by mouth at bedtime as needed (insomnia 1st line). (Patient not taking: Reported on 05/23/2024) polyethylene glycol 3350 17 gram packet Take 1 Packet by mouth once daily as needed. Dissolve dose in 4 - 8 ounces of liquid and take as directed. torsemide (DEMADEX) 20 mg tablet Take 1 tablet by mouth once daily. (Patient not taking: Reported on 05/23/2024) valsartan (DIOVAN) 40 mg tablet Take 1 tablet by mouth once daily. (Patient not taking: Reported on 05/23/2024) carvedilol (COREG) 3.125 mg tablet Take 2 tablets by mouth two times a day with meals. iv contrast (will be provided with radiology test) CT Chest W -Inject, intravenously, once for 1 dose.No IV access, insert saline lock prior to the beginning of sedation, infusion, injection of imaging exam. Discontinue saline lock post exam. If Pt. has a central line or IVAD, may access for administration according to line specific nursing protocol. Once exam is complete flush line and de-access according to line specific nursing protocol in the CT contrast administration guidelines link. iv contrast (will be provided with radiology test) CT ABD/PEL -Inject, intravenously, once for 1 dose.No IV access, insert saline lock prior to the beginning of sedation, infusion, injection of imaging exam. Discontinue saline lock post exam. If Pt. has a central line or IVAD, may access for administration according to line specific nursing protocol. Once exam is complete flush line and de-access according to line specific nursing protocol in the CT contrast administration guidelines link. enteric contrast (will be provided with radiology test) For CT ABD/PEL W IVCON Routine order Administer, As Directed One Time Only, via Oral, Rectal, both Oral and Rectal, Enteric Tube, Stoma or Indwelling Catheter, Enteric Contrast as designated per enteric contrast guidelines gabapentin (NEURONTIN) 100 mg capsule Take 1 capsule by mouth two times a day for 180 days. DULoxetine (CYMBALTA) 60 mg capsule Take 1 capsule by mouth once daily fluticasone-vilanterol (BREO ELLIPTA) 100-25 mcg/dose inhaler Inhale 1 Inhalation as instructed once daily. amitriptyline (ELAVIL) 50 mg tablet Take 1 tablet by mouth daily at bedtime. triamcinolone acetonide (KENALOG) 0.1 % ointment Apply to affected area two times a day. glimepiride (AMARYL) 4 mg tablet Take 1 tablet by mouth two times a day with meals. atorvastatin (LIPITOR) 40 mg tablet TAKE 1 TABLET BY MOUTH ONCE DAILY AT BEDTIME FOR CHOLESTEROL metFORMIN (GLUCOPHAGE) 500 mg tablet Take 2 tablets by mouth two times a day with meals. . Blood Pressure Monitor Take your blood pressure everyday and keep a log aspirin 81 mg cap Take 81 mg by mouth once daily. silver sulfADIAZINE (SILVADENE) 1 % cream Apply to affected area once daily. Magnesium Chloride (SLOW-MAG) 71.5 mg TbEC Take 1 tablet by mouth twice daily. lidocaine-prilocaine (EMLA) 2.5-2.5 % cream Apply to affected area as needed. acetaminophen (TYLENOL EXTRA STRENGTH) 500 mg tablet Take 2 tablets by mouth every 6 hours as needed for pain. Lancets lancets Test one time daily, Insulin Dep? No E11.9 DM 2 alcohol swabs (ALCOHOL PADS) Test one time daily, Insulin Dep? No E11.9 DM 2 blood sugar diagnostic (BLOOD GLUCOSE TEST) test strip Test one time daily, Insulin Dep? No E11.9 DM 2 (Patient not taking: Reported on 04/14/2024) dulaglutide (TRULICITY) 3 mg/0.5 mL pen injector Inject 3 mg subcutaneously one time a week. Patient Assistance Medication. No current facility-administered medications for this visit. FAMILY HISTORY Problem Relation Age of Onset Heart Mother irregular heart rate Colon Cancer Mother Stroke Mother Heart Father from heart attack Colon Cancer Maternal Grandfather Social History Tobacco Use Smoking status: Former Current packs/day: 0.00 Average packs/day: 0.5 packs/day for 20.0 years (10.0 ttl pk-yrs) Types: Cigarettes Start date: 11/05/1957 Quit date: 11/05/1977 Years since quittin.5 Smokeless tobacco: Never Vaping Use Vaping status: Never Used Substance Use Topics Alcohol use: No Drug use: No REVIEW OF SYSTEMS GENERAL: No weight loss, malaise or fevers/chills HEENT: Negative for frequent or significant headaches, No changes in hearing or vision. NECK: Negative for lumps, goiter, pain and significant neck swelling RESPIRATORY: Negative for cough, hemoptysis, wheezing, dyspnea or shortness of breath CARDIOVASCULAR: Negative for chest pain, leg swelling, orthopnea, or palpitations GI: No nausea, vomiting, or diarrhea/constipation. No hematochezia/melena. No heartburn or reflux symptoms. : No history of dysuria, frequency or incontinence MUSCULOSKELETAL: Negative for joint pain or swelling. SKIN: Negative for lesions, rash, and itching ENDOCRINE: Negative for cold or heat intolerance, polyuria, polydipsia and goiter NEURO: No history of headaches, syncope, paralysis, seizures or tremors MOOD: Negative for depression, anxiety, or suicidal ideation. EXAM: BP 112/68 Pulse 80 Resp 16 SpO2 92% PHYSICAL EXAM: General Appearance: Well appearing, alert, in no acute distress, well-hydrated, well nourished. Skin: Skin color, texture, turgor normal, no suspicious rashes or lesions. Head: Normocephalic, no masses, lesions, tenderness or abnormalities. Eyes: Anicteric sclera. Extraocular movements are intact. Lungs: scant wheezing noted. Heart: RRR without murmur, gallop, or rubs. No ectopy. Extremities: No deformities, edema, skin discoloration, clubbing or cyanosis. Good capillary refill. Peripheral Pulses: Normal, Capillary refill <2secs, strong peripheral pulses, Pulses palpable. Neurologic: Gait normal. Sensation grossly intact. ASSESSMENT/PLAN: 1. Hospital discharge follow-up - ICD9: V67.59, ICD10: Z09 (primary diagnosis) - Stable since hospital discharge. 2. Type 2 diabetes mellitus without complication, with no history of insulin use (HCC) - ICD9: 250.00, ICD10: E11.9 - Controlled - Continue current medications - Counseled on healthy diet and regular exercise - Discussed need for and benefit of weight loss. No weight on file for this encounter. - Get repeat labs in 3 months - COMPREHENSIVE METABOLIC PANEL - HEMOGLOBIN A1C 3. Nausea - ICD9: 787.02, ICD10: R11.0 - ONDANSETRON HCL 8 MG TABLET 4. RSV (respiratory syncytial virus pneumonia) - ICD9: 480.1, ICD10: J12.1 - Stable - Keep scheduled appointment with pulmonology today 5. History of UTI - ICD9: V13.02, ICD10: Z87.440 - Resolved. 6. Endometrial cancer (HCC) - ICD9: 182.0, ICD10: C54.1 - Keep scheduled appointments with Oncology - Discuss LFT's after additional imaging completed. Follow-up as scheduled or sooner as needed Discussed treatment plan and patient voices understanding. Patient's questions answered appropriately. Medications and potential side effects were discussed and patient voices understanding. Billie Hwang APRN.DIRECTOR MARKETING This note was partially generated using [employer] voice recognition system. Note was reviewed for accuracy. There may be minor misspellings or grammar miscues with [employer] voice recognition. documented in this encounter [facility] 05-25-2024 Note [facility] 05-25-2024 Telephone encounter Note Noted Vinh Van MD [facility] 05-25-2024 Miscellaneous Notes Noted Vinh Van MD Simon AMES from [facility] calling to report plan of care for patient and physical therapy will visit patient 2 times a week for 2 weeks. Physical therapy will work with patient on functional mobility training. No call back needed, Roseann Perez RN documented in this encounter [facility] 05-24-2024 Telephone encounter Note Simon PT from [facility] calling to report plan of care for patient and physical therapy will visit patient 2 times a week for 2 weeks. Physical therapy will work with patient on functional mobility training. No call back needed, Roseann Perez RN [facility] 05-23-2024 Telephone encounter Note Call to Roseann and notified her of message below from Provider. She verbalized understanding. Notes some medication discrepancies from [facility] to her meds at home. Roseann believes this may be from when she was sent from [facility]. Noting sliding scale of insulin etc. Asking to have an updated med list after her OV with office for clarification faxed to her directly to review with pt. F: [phone] ATTN; Roseann. Talia Alba MA [facility] 05-23-2024 Miscellaneous Notes Call to Roseann and notified her of message below from Provider. She verbalized understanding. Notes some medication discrepancies from [facility] to her meds at home. Roseann believes this may be from when she was sent from [facility]. Noting sliding scale of insulin etc. Asking to have an updated med list after her OV with office for clarification faxed to her directly to review with pt. F: [phone] ATTN; Roseann. Talia Alba MA OK for verbal order for intermediate 1 visit weekly for 2 week as requested Vinh Van MD Roseann from [facility] calling asking for verbal order for intermediate 1 visit weekly for 2 weeks. Aware patient has hospital follow up scheduled for 05/25 with [facility]. Please advise documented in this encounter [facility] 05-23-2024 Telephone encounter Note OK for verbal order for intermediate 1 visit weekly for 2 week as requested Vinh Van MD [facility] 05-23-2024 Telephone encounter Note Roseann from [facility] calling asking for verbal order for intermediate 1 visit weekly for 2 weeks. Aware patient has hospital follow up scheduled for 05/25 with [facility]. Please advise [facility] 05-23-2024 Telephone encounter Note Spoke w pt sister and this has been rescheduled as directed. Ronit Ramirez [facility] 05-23-2024 Miscellaneous Notes Spoke w pt sister and this has been rescheduled as directed. Ronit Ramirez Patient's chemo has been on hold since 04/25/2024. The purpose of the CT scans in 3-4 weeks is to allow additional time for patient to rehab and for restaging. At the office visit the CT scans will be reviewed as well as the patient's performance status and then a determination will be made regarding treatment going forward. I called and left a detailed message on patient's identified VM with this explanation. I asked that she contact the office to speak with this nurse. PSS- please contact the patient and reschedule the CT's for 3-4 weeks from now, per the AVS. Vicky Andino LPN When scheduling patients Echo and CT she advised that chemo treatments are stopping so there shouldn't be any scheduled. Please advise as patient is scheduled through end of June Renee Saravia documented in this encounter [facility] 05-23-2024 Telephone encounter Note Patient's chemo has been on hold since 04/25/2024. The purpose of the CT scans in 3-4 weeks is to allow additional time for patient to rehab and for restaging. At the office visit the CT scans will be reviewed as well as the patient's performance status and then a determination will be made regarding treatment going forward. I called and left a detailed message on patient's identified VM with this explanation. I asked that she contact the office to speak with this nurse. PSS- please contact the patient and reschedule the CT's for 3-4 weeks from now, per the AVS. Vicky Andino LPN [facility] 05-23-2024 Telephone encounter Note When scheduling patients Echo and CT she advised that chemo treatments are stopping so there shouldn't be any scheduled. 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 HPI: The patient is a 78-year-old female with a past medical history significant for hypertension, hyperlipidemia, GERD, type 2 diabetes (diagnosed about age 60; neuropathy), total knee replacement, former smoker and recent diagnosis of endometrial cancer. SURGERY & DATE: 07/24/2022 - Exam under anesthesia, total laparoscopic hysterectomy, bilateral salpingo-oophorectomy, sentinel lymph node mapping with excision of bilateral pelvic sentinel lymph nodes, and extensive lysis of adhesions. PATHOLOGY: A. Odum lymph node, right, biopsy: - Isolated tumor cells involving 1 of 2 lymph nodes; see comment. B. 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 C. Uterus with cervix, right and left fallopian tubes, and ovaries, hysterectomy and bilateral salpingo-oophorectomy: - Cervix: No significant pathologic abnormality. - Endomyometrium: Endometrial endometrioid carcinoma with squamous differentiation, FIGO grade 2, invading outer myometrium (18 mm out of 19 mm, 95%) and showing extensive/multifocal lymphovascular invasion and the microcystic, elongated, and fragmented (MELF) pattern of invasion; see comment and synoptic report. - Serosa: No significant pathologic abnormality. - Bilateral ovaries: Adhesions. - Right fallopian tube: Hematosalpinx, no definitive carcinoma. - Left fallopian tube: Metastatic carcinoma. Mismatch repair (MMR) interpretation: Deficient mismatch repair (dMMR) Results Mismatch Repair Protein Immunohistochemistry Results: MLH1: Loss of Nuclear Expression (subclonal/focal loss) PMS2: Loss of Nuclear Expression (subclonal/focal loss) MSH2: Normal/Intact Nuclear Expression MSH6: Normal/Intact Nuclear Expression IMAGING: CT ABD/PELVIS: 06/16/2022 IMPRESSION: 1. Findings compatible with cystitis. 2. Approximately 8.5 cm tubular/serpiginous cystic lesion in the right adnexal region suspect for hydrosalpinx though right ovarian cystic lesion not excluded with certainty. Mild infiltration of the surrounding fat raises suspicion for the possibility of superinfection. A few small bowel loops in the pelvis appear tethered around this right adnexal cystic lesion and a short segment of sigmoid colon abuts the posterior aspect of this right adnexal lesion. 3. Small volume pelvic free fluid. 4. Heterogeneous appearance of the uterus potentially related to fibroids. Further evaluation with dedicated pelvic ultrasound would be of value. CXR: 07/22/2022 IMPRESSION: Left basilar mild atelectasis. TUMOR BOARD: Management Options: -Recommend adjuvant treatment with systemic therapy, carbo/taxol +/- pembrolizumab -Referral to genetics Per initial consultation here: No vaginal discharge or bleeding. Bowels moving regularly. Good appetite. Pain is gone. Subjectively voiding to completion. Fingertip and toes numb. Had it approximately 3 years. Orthostasis if stands quickly. Balance has been "off" for about 6 months. Used WC to come in from [facility]. Uses cane and walker in the home. Lives in basement of sister's house. Capable of all ADLs independently. Uses shower chair. She and sister share cooking. Drives. Low back pain can limit her walking--symptoms are consistent with spinal stenosis. Current therapy: 1) Paclitaxel and carboplatin and pembrolizumab. First 2 cycles without pembrolizumab. Had EGD. Results noted. ?Gastroparesis. Was admitted to [facility] 01/24 ago for urosepsis. Admitted 2 days. Glimepiride was held. Completed antibiotic Wednesday. Had no urinary symptoms. Family found her at the table acting disoriented. Previously saw carrier associate at [facility] for reduced EF. Started on Jaurdiance. Presents for ongoing oncologic management. OV 11/2023: She was admitted in August of her hypoxemic/hypercapnic respiratory failure. Was in CHF. Continues living in a walkout basement and her sisters home. She has frequent orthostasis. Not able to do much in the kitchen so her sister has arranged for Meals on Wheels. However she can walk fairly well around the house with her walker. Neuropathy symptoms are no worse. Fingertips are involved. She does not cook for fear of burning herself. Numbness in the feet comes to just above the ankles. No chest pain. No palpitation or sensation of tachycardia. Has oxygen since the time of discharge from [facility]. Uses it at night all the time. Not so much during the day unless she is walking around the house. Appetite has been normal. No abdominal pain. Bowels have been working regularly with formed stools. She has occasional diarrhea. Not daily. Able to void her bladder well. Completed radiation (03/10/2024) treatment to pleural-based inferior right lung nodule that had increased in size on CT 01/18/2024. Other nodules had remained stable. Presents for ongoing oncologic management. Interim history: 1 dose of gemcitabine 04/25. Admitted to [facility] with UTI. She was discharged home but very weak. Readmitted to [facility] for hypoxemic respiratory failure. She required BiPAP. She was in the ICU for concern of pneumonia. Positive for RSV. Managed with supportive care and gradually improved. Completed course of antibiotics and steroids while she was in the hospital. She was seen in consultation by gastroenterology for hepatocellular injury. Attributed to fatty liver. During the hospitalization at [place], CTA of the chest revealed that the left upper lobe pulmonary nodule was larger when compared to previous study in April. No dimensions rendered. Was noted to have "slight increase". Ultrasound liver showed nodular contour suggesting cirrhosis. She was found to have splenomegaly with spleen measuring 14.8 cm. Home from skilled care this past Wednesday. Sister helps with showering. Bedside commode for night use. Can get from chair to bathroom herself now during the day. Lingering cough. Some sputum--less than when sick. Bowels working well. Appetite improving. Denies pain. PMH, medications and allergies personally reviewed by me today. Any changes documented in appropriate section. PHYSICAL EXAM: Vitals: Blood pressure 98/64, pulse 80, temperature 36.4 C (97.5 F), temperature source Temporal, weight 127 kg (280 lb), SpO2 91%. Well-appearing and in no acute distress. EYES: Sclerae are anicteric bilaterally. LYMPHATIC: There is no palpable cervical or supraclavicular adenopathy. RESPIRATORY: Inspiratory breath sounds are of diminished intensity in all thompson. CARDIOVASCULAR: Rhythm is regular. ABDOMEN: The abdomen is nondistended. Tender without mass right upper quadrant. 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 ASSESSMENT/PLAN: (C54.1) Endometrial cancer (HCC) (primary encounter diagnosis) (C80.0) Carcinomatosis (HCC) Lung metastases. 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 -ECOG PS remains 3. -Significant comorbid conditions including type 2 diabetes with pre-existing sensory neuropathy. She had impaired gait and mobility from spinal stenosis as well. Nonetheless she stood to benefit significantly from adjuvant therapy with carboplatin, paclitaxel and pembrolizumab based on the reported results of the [id number]-GY018 trial. -Pembrolizumab was added with cycle #3. Received 5 cycles. Therapy held following due to worsening neuropathy and general decline. -Diagnosed with immunotherapy induced cardiomyopathy. -Neuropathy stable. -Had a discussion today regarding goals of care with her and her sister. Again explained disease is incurable and the intent of therapy is palliation and potential prolongation of survival. Although there will be progression of disease the longer she is off chemotherapy, currently the risk benefit ratio does not favor chemotherapy. We discussed taking the approach of giving her more time for rehabilitation, restaging and then reconsidering treatment at that point. Plan: -Repeat echocardiogram when able. -CBC/CMP CT chest, abdomen pelvis followed by office visit in about 3 to 4 weeks. Portions of this documentation were copied and pasted from my previous office visit note dated 04/14/2023 in order to provide a cohesive continuity of the history. The note has been reviewed and edited and updated as necessary. Nora Branham DO documented in this encounter [facility] 05-22-2024 Telephone encounter Note Call to Billie and notified her of message below from Provider. She verbalized understanding. Talia Alba MA [facility] 05-22-2024 Miscellaneous Notes Call to Billie and notified her of message below from Provider. She verbalized understanding. Talia Alba MA Left message for Billie [facility] to return call I am willing to follow patient with orders for intermediate, physical therapy, and occupational therapy Vinh Van MD Billie from [facility] calls and states that patient is being discharged from [facility] on this weekend with the diagnosis of strength ing after ARF. Billie asking if provider willing to follow patient with orders for intermediate, physical therapy, and occupational therapy. If agreeable please give Billie a call back . Thank you, Roseann Perez RN documented in this encounter [facility] 05-19-2024 Telephone encounter Note Left message for Billie [facility] to return call [facility] 05-19-2024 Telephone encounter Note I am willing to follow patient with orders for intermediate, physical therapy, and occupational therapy Vinh Van MD [facility] 05-19-2024 Telephone encounter Note Billie from [facility] calls and states that patient is being discharged from [facility] on this weekend with the diagnosis of strength ing after ARF. Billie asking if provider willing to follow patient with orders for intermediate, physical therapy, and occupational therapy. If agreeable please give Billie a call back . Thank you, Roseann Perez RN [facility] 05-09-2024 Note HNO ID: [id number] Author: HEIDY CARD, LEONEL Service: Care Management Author Type: Registered Nurse Type: Care Mgt Progress Note Filed: 05/09/2024 16:22 Note Text: CARE MANAGEMENT DISCHARGE NOTE SERVICE DATE: May 09, 2024 SERVICE TIME: 4:18 PM Admission Date: 05/02/2024 LOS: 7 days Discharge Arrangement Discharge Arrangement: Long-Term Facility Was an expedited discharge program used?: No Provider Name: Dhiraj Patrick Caregiver Assessment Caregiver is ready, willing and able to meet the patient's needs as recommended by the inter-professional team: Yes Name of Caregiver: Dhiraj Patrick [facility] Transportation Arrangements Transportation Arrangements: Car Date of Trip: 05/09/24 Destination: [facility] Handoff Communication: Handoff to: Primary Care Physician Primary Care Physician Name/Phone: Vinh Van MD/[phone] Discharge order is written. [facility] has pre-cert and confirmed they can accept the patient today. The patient was updated at bedside. Her sister Milagro was updated via phone per the patient's request. Both are agreeable to discharge to [facility] today. Gina will be providing transport and was advised to bring the patient's portable Oxygen with her for transport. The discharge envelope was placed on the patient's chart and includes the phone number for nurse to nurse report. SIGNATURE: Heidy Card RN PATIENT NAME: Pricila Johnsonuire DATE: May 09, 2024 TIME: 4:18 PM [facility] 05-09-2024 Note HNO ID: [id number] Author: HEIDY CARD RN Service: Care Management Author Type: Registered Nurse Type: Care Mgt Progress Note Filed: 05/09/2024 15:44 Note Text: CARE MANAGEMENT PROGRESS NOTE SERVICE DATE: 05/09/2024 SERVICE TIME: 3:43 PM LOS: 7 days IMM Follow Up Copy Given: Yes Copy given to:: Patient Method: In Person SIGNATURE: Heidy Card RN PATIENT NAME: Pricila Hooker DATE: May 09, 2024 TIME: 3:43 PM [facility] 05-09-2024 Note HNO ID: [id number] Author: HEIDY CARD RN Service: Care Management Author Type: Registered Nurse Type: Care Mgt Progress Note Filed: 05/09/2024 12:58 Note Text: CARE MANAGEMENT PROGRESS NOTE SERVICE DATE: 05/09/2024 SERVICE TIME: 11:00 AM LOS: 7 days Needs Prior to Discharge: Discharge Transportation, Other: See Comment (Medical Clearance) EMR reviewed. Pre-cert has been received for [facility] and is valid thru 05/15. Dr. Hawkins was updated. Possible discharge later today. CM assigned will continue to follow. SIGNATURE: Heidy Card RN PATIENT NAME: Pricila Hooker DATE: May 09, 2024 TIME: 12:56 PM [facility] 05-09-2024 Note HNO ID: [id number] Author: AMARJIT VILLANUEVA MD Service: Pulmonary Disease Author Type: Physician Type: Progress Notes Filed: 05/09/2024 17:03 Note Text: PULMONARY CONSULT PROGRESS NOTE SERVICE DATE: 05/09/2024 SERVICE TIME: 10:33 AM SUMMARY: 78 y/o F with a PMH of Metastatic endometrial adenocarcinoma with progression of R lung nodule, COPD (FEV1: 57%), chronic hypoxic resp failure (3L NC), ALEXX, HTN, GERD, and DM II that is admitted to ICU for acute on chronic hypoxic and hypercapnic resp failure. INITIALLY - in ICU on BIPAP Transferred to floor Now with ABG In preparation for D/C to facility - ABG drawn IMPRESSION: Acute on chronic hypoxic and hypercapnic resp failure COPD with acute Exacerbation 2/2 RSV and superimposed bacterial PNA Hyponatremia (POA) JACY (POA) Chronic thrombocytopenia Metastatic cancer with progression PLAN: Continue current pulmonary regimen Oxygen as needed, evaluate for oxygen on discharge Per detailed discussion with patient, patient defers NIV at this time. She plans to follow-up as an outpatient with previously seen sheet metal former in [place]. She plans on considering whether or not she would be accepting of sleep evaluation and CPAP. Prior testing also reviewed, inadequate test to confirm or refute diagnosis of ALEXX. ABG consistent with OHS, 90% of patients will also have ALEXX. Subjective INTERVAL HPI: Patient feeling better overall MEDICATIONS: Current Facility-Administered Medications Medication Dose Route Frequency atorvastatin 40 mg tab(s) (LIPITOR) 40 mg ORAL AT BEDTIME ipratropium-albuterol 3 mL nebulizer solution (DUONEB) 3 mL INHALATION q 4 H PRN aspirin 81 mg chewable tab(s) 81 mg ORAL DAILY amitriptyline 50 mg tab(s) (ELAVIL) 50 mg ORAL AT BEDTIME dextrose 40 % 15 g 15 g ORAL PRN Or glucagon 1 mg injection 1 mg INTRAMUSCULAR PRN Or dextrose 10% iv bolus 12.5 g INTRAVENOUS PRN NaCl 0.9% iv flush bag 20 mL INTRAVENOUS PRN heparin 7,500 Units injection 7,500 Units SUBCUTANEOUS q 8 H miconazole 2 % 1 application topical powder 1 application TOPICAL BID gabapentin 100 mg cap(s) (NEURONTIN) 100 mg ORAL BID insulin lispro injection (rapid acting) (ADMElog) SUBCUTANEOUS w MEALS AND HS polyethylene glycol 3350 17 g packet 17 g ORAL DAILY PRN benzocaine-menthol 1 Lozenge (CEPACOL) 1 Lozenge MUCOUS MEMBRANE (TOPICAL MOUTH AND THROAT) q 2 H PRN benzonatate 100 mg cap(s) (TESSALON PERLE) 100 mg ORAL TID PRN guaiFENesin-dextromethorphan 100-10 mg/5 mL 10 mL oral liquid (ROBITUSSIN DM) 10 mL ORAL q 4 H PRN calcium carbonate 1,000 mg chewable tab(s) (TUMS) 1,000 mg ORAL TID PRN melatonin 3 mg tab(s) 3 mg ORAL AT BEDTIME PRN prochlorperazine 10 mg injection (COMPAZINE) 10 mg INTRAVENOUS q 6 H PRN acetaminophen 1,000 mg tab(s) (TYLENOL) 1,000 mg ORAL q 6 H PRN traMADol 50 mg tab(s) (ULTRAM) 50 mg ORAL q 6 H PRN ipratropium-albuterol 3 mL nebulizer solution (DUONEB) 3 mL INHALATION QID carvedilol 6.25 mg tab(s) (COREG) 6.25 mg ORAL BID w MEALS torsemide 20 mg tab(s) (DEMADEX) 20 mg ORAL DAILY valsartan 40 mg tab(s) (DIOVAN) 40 mg ORAL DAILY Objective PHYSICAL EXAM: BP 115/53 Pulse 78 Temp (Src) 97.5 (Oral) Resp 16 Ht 5' 7" (1.70m) Wt 295 lb 13.7 oz (134.2kg) SpO2 98% BMI 46.33 kg/(m2). O2 Therapy: Nasal Cannula, Liters (Numeric Only): 2.00 Intake/Output Summary (Last 24 hours) at 05/09/2024 1033 Last data filed at 05/09/2024 0516 Gross per 24 hour Intake 840 ml Output 1400 ml Net -560 ml GENERAL: Alert, no distress, cooperative SKIN: Skin color, texture, turgor normal. No rashes or lesions. HEAD/SINUSES: No significant findings EYES: PERRL, EOM'S INTACT, Conjunctivae AND Sclerae Normal EARS: External ears normal. NOSE: Nares normal. Septum midline. OROPHARYNX: Grossly normal Dentures NECK: No accessory muscle use, supple BACK: Back symmetric, Normal curvature, ROM normal, No CVAT. LUNGS: rhonchi Negative findings: normal respiratory rate and rhythm, chest symmetric with normal A/P diameter, no chest deformities noted, no chest wall tenderness, CARDIAC: Regular rate and rhythm, no significant murmurs, rubs or gallops ABDOMEN: Soft, Nontender, Nondistended EXTREMITIES: Normal, Warm, No cyanosis, no clubbing 2+ edema NEURO: muscle tone normal, muscle strength normal Moves bilaterally, nonfocal, sensation grossly intact The remainder of the physical exam is noncontributory. Diagnostic tests reviewed for today's visit: Most recent labs and imaging results. Personally reviewed imaging studies. ABG: Recent Labs 05/08/24 1837 O2HB 90* BE 16* LACT 1.0 Recent Labs 05/09/24 0611 05/08/24 0736 05/07/24 0741 WBC 4.05 4.42 4.04 HB 8.8* 9.2* 8.8* HCT 27.7* 29.5* 27.6* PLT 81* 83* 67* INR -- -- 1.2 Recent Labs 05/09/24 0611 05/08/24 0736 05/07/24 0741 GLUC 179* 174* 175* NA 135* 137 138 K 4.5 5.0 4.5 CHLOR 90* 90* 93* CO2 39* 38* 37* ANIO (more content not included)... [facility] 05-08-2024 Note HNO ID: [id number] Author: LOPEZ HAWKINS MD Service: Hospital Medicine Author Type: Physician Type: Progress Notes Filed: 05/08/2024 18:23 Note Text: DEPARTMENT OF HOSPITAL MEDICINE PROGRESS NOTE SERVICE DATE: 05/08/2024 SERVICE TIME: 6:22 PM Hospital Medicine/Primary Attending: Lopez Hawkins MD NIGHT AND WEEKEND COVERAGE: [place] COVERAGE: Days: [phone], please page attending physician. Nights: [phone], please page [place] Night coverage pager [phone]. Subjective INTERVAL HPI: No acute events overnight. Patient appears to be comfortable resting in bed. Still pending pre-CERT for facility. Patient may have some underlying ALEXX/OHS. May benefit from CPAP. May consider getting repeat ABG. Continue to monitor. Current Facility-Administered Medications Medication Dose Route Frequency atorvastatin 40 mg tab(s) (LIPITOR) 40 mg ORAL AT BEDTIME ipratropium-albuterol 3 mL nebulizer solution (DUONEB) 3 mL INHALATION q 4 H PRN aspirin 81 mg chewable tab(s) 81 mg ORAL DAILY amitriptyline 50 mg tab(s) (ELAVIL) 50 mg ORAL AT BEDTIME dextrose 40 % 15 g 15 g ORAL PRN Or glucagon 1 mg injection 1 mg INTRAMUSCULAR PRN Or dextrose 10% iv bolus 12.5 g INTRAVENOUS PRN NaCl 0.9% iv flush bag 20 mL INTRAVENOUS PRN heparin 7,500 Units injection 7,500 Units SUBCUTANEOUS q 8 H miconazole 2 % 1 application topical powder 1 application TOPICAL BID gabapentin 100 mg cap(s) (NEURONTIN) 100 mg ORAL BID insulin lispro injection (rapid acting) (ADMElog) SUBCUTANEOUS w MEALS AND HS polyethylene glycol 3350 17 g packet 17 g ORAL DAILY PRN benzocaine-menthol 1 Lozenge (CEPACOL) 1 Lozenge MUCOUS MEMBRANE (TOPICAL MOUTH AND THROAT) q 2 H PRN benzonatate 100 mg cap(s) (TESSALON PERLE) 100 mg ORAL TID PRN guaiFENesin-dextromethorphan 100-10 mg/5 mL 10 mL oral liquid (ROBITUSSIN DM) 10 mL ORAL q 4 H PRN calcium carbonate 1,000 mg chewable tab(s) (TUMS) 1,000 mg ORAL TID PRN melatonin 3 mg tab(s) 3 mg ORAL AT BEDTIME PRN prochlorperazine 10 mg injection (COMPAZINE) 10 mg INTRAVENOUS q 6 H PRN acetaminophen 1,000 mg tab(s) (TYLENOL) 1,000 mg ORAL q 6 H PRN traMADol 50 mg tab(s) (ULTRAM) 50 mg ORAL q 6 H PRN ipratropium-albuterol 3 mL nebulizer solution (DUONEB) 3 mL INHALATION QID carvedilol 6.25 mg tab(s) (COREG) 6.25 mg ORAL BID w MEALS torsemide 20 mg tab(s) (DEMADEX) 20 mg ORAL DAILY valsartan 40 mg tab(s) (DIOVAN) 40 mg ORAL DAILY Objective PHYSICAL EXAM: BP 122/56 Pulse 83 Temp (Src) 97.9 (Oral) Resp 16 Ht 5' 7" (1.70m) Wt 295 lb 13.7 oz (134.2kg) SpO2 93% BMI 46.33 kg/(m2). O2 Therapy: Nasal Cannula, Liters (Numeric Only): 2 Physical Exam Performed Constitutional: In no apparent distress. Vital signs stable. On supplemental oxygen Eye: Pupils are equal. Extraocular motions intact ENMT: No visible external trauma. Hearing grossly intact. Neck: No Jugular Vein Distention Cardiovascular: Regular rate and rhythm. S1 and S2 Respiratory: Reduced breath sounds bilaterally Gastrointestinal: Soft, without detectable tenderness. No sign of distention. No rebound or guarding, no masses palpated. Bowel sounds present Genitourinary: Bladder soft Musculoskeletal: Good range of motion of all major joints. Extremities without clubbing, without cyanosis, without edema Integumentary: No rash, no bruising, no lesions Neurologic: Oriented to person, place and time. No focal sensory or strength deficits. Speech normal. Follows commands Psychiatric: Calm, cooperative, appropriate Lines, Drains, and Airways Line Duration Peripheral 05/01/24 2040 Short Right Forearm 20 Gauge 6 days Peripheral 05/02/24 0640 [facility] Short Left Forearm 20 Gauge 6 days Drain Duration External Collection Device 05/02/24 0630 [facility] 6 days Reviewed lines and needs to be continued: REASONS: Intravenous fluids, Intravenous antibiotics, Telemetry, and Electrolyte replacement DATA: Diagnostic tests reviewed for today's visit: Most recent labs Most recent imaging Most recent EKG CBC, Coags, BMP, Mg, Phos Recent Labs 05/08/24 0736 05/07/24 0741 05/06/24 0706 WBC 4.42 4.04 -- HB 9.2* 8.8* -- HCT 29.5* 27.6* -- PLT 83* 67* -- INR -- 1.2 -- NA 137 138 139 K 5.0 4.5 4.5 CHLOR 90* 93* 95* CO2 38* 37* 33* BUN 26* 25* 23* CREAT 1.07* 0.98* 0.98* GLUC 174* 175* 108* CA 8.9 8.9 9.3 Assessment/Plan Problem List Acute on chronic respiratory failure with hypoxia and hypercapnia (HCC) (POA: Yes) Endometrial cancer (HCC) (POA: Yes) Thrombocytopenia (HCC) (POA: Yes) Chronic systolic CHF (congestive heart failure) (HCC) (POA: Yes) RSV (respiratory syncytial virus pneumonia) (POA: Yes) Community acquired bacterial pneumonia (POA: Yes) Metastatic cancer (HCC) (POA: Yes) HOSPITAL COURSE: Pricila Hooker 78 year old female with a PMHx significant for ALEXX, HTN, GERD, Chronic hypoxemic respiratory failure (3L NC), Met (more content not included)... [facility] 05-08-2024 Note HNO ID: [id number] Author: LOPEZ HAWKINS MD Service: Care Management Author Type: Registered Nurse Type: Care Mgt Progress Note Filed: 05/08/2024 13:56 Note Text: Attestation signed by Lopez Hawkins MD at 05/08/2024 1:56 PM Reviewed the Case Management Note. I agree with the documented findings and plan of care. Lopez Hawkins MD Department of Hospital Medicine DATE: May 08, 2024 TIME: 1:56 PM CARE MANAGEMENT PROGRESS NOTE SERVICE DATE: 05/08/2024 SERVICE TIME: 1:44 PM LOS: 6 days Needs Prior to Discharge: To Be Determined Physician Certification of Less Than 30 Days Post-Acute Nursing Facility Needed Earliest Possible Discharge Date: 05/08/24 To the best of my knowledge, all information provided about the individual is a true and an accurate reflection of Pricila Hooker's needs. I certify that following the inpatient level of care, a post-acute nursing facility stay is required for less than 30 days related to the condition(s) for which the patient was treated during the inpatient level of care: Principal Problem: Acute on chronic respiratory failure with hypoxia and hypercapnia (HCC) Active Problems: Endometrial cancer (HCC) Thrombocytopenia (HCC) Chronic systolic CHF (congestive heart failure) (HCC) RSV (respiratory syncytial virus pneumonia) Community acquired bacterial pneumonia Metastatic cancer (HCC) Resolved Problems: Other specified anemias Hyponatremia Hyperkalemia JACY (acute kidney injury) (HCC) Transaminitis Acute respiratory failure with hypoxia and hypercapnia (HCC) RSV (acute bronchiolitis due to respiratory syncytial virus) Weakness ACP (advance care planning) Encounter for palliative care Physician: Lopez Hawkins MD SIGNATURE: Esther Lorenzana RN PATIENT NAME: Pricila Hooker DATE: May 08, 2024 TIME: 1:44 PM [facility] 05-08-2024 Note HNO ID: [id number] Author: ESTHER LORENZANA RN Service: Care Management Author Type: Registered Nurse Type: Care Mgt Progress Note Filed: 05/08/2024 14:41 Note Text: CARE MANAGEMENT PROGRESS NOTE SERVICE DATE: 05/08/2024 SERVICE TIME: 10:40 AM LOS: 6 days Needs Prior to Discharge: To Be Determined, Accepting Facility, Precertification, Discharge Transportation CM following, chart reviewed. [facility] responded that they are reviewing referral. Notified that patient's sister at bedside and requesting to talk with CM. CM met at bedside with patient and her sister. Provided update on SNF referrals. They asked if they provide patient's home medications, if this will change response from [facility]. CM made request-they responded cannot accept patient/medications cannot be brought in from home. Also, per CM discussion with family, referral placed to [facility]. Awaiting response at time of note. 1:49 PM-updated by [facility] that they cannot accept patient (no beds). Updated by [facility] that they can accept patient and offered to start precert. CM sent updated clinicals; however awaiting updated PT eval and told SNF this. They will wait to submit precert until PT note received. CM tasked [facility] to follow precert. Also, asked Dr. Hawkins to co-sign HENS/7000 note. Updated patient's sister on above and she will update patient. 2:41 PM-updated PT note received; sent to SNF and they are starting precert. Also, tasked [facility] to complete HENS/7000. Assigned CM will continue to follow. SIGNATURE: Esther Lorenzana RN PATIENT NAME: Pricila Hooker DATE: May 08, 2024 TIME: 10:40 AM [facility] 05-07-2024 Note HNO ID: [id number] Author: ABDULAZIZ GARAY LSW Service: Care Management Author Type: Assistant Surveyor Type: Care Mgt Progress Note Filed: 05/07/2024 10:33 Note Text: CARE MANAGEMENT PROGRESS NOTE SERVICE DATE: 05/07/2024 SERVICE TIME: 10:33 AM LOS: 5 days CM reviewed SNF responses: [facility] declined. Sent [facility] a request for an update if can accept. CM will continue to follow with d/c planning needs. SIGNATURE: JUAN Cutler, ACIgnacia PATIENT NAME: Pricila Hooker DATE: May 07, 2024 TIME: 10:33 AM [facility] 05-07-2024 Note HNO ID: [id number] Author: LOPEZ HAWKINS MD Service: Hospital Medicine Author Type: Physician Type: Progress Notes Filed: 05/07/2024 10:22 Note Text: DEPARTMENT OF HOSPITAL MEDICINE PROGRESS NOTE SERVICE DATE: 05/07/2024 SERVICE TIME: 10:20 AM Hospital Medicine/Primary Attending: Lopez Hawkins MD NIGHT AND WEEKEND COVERAGE: [place] COVERAGE: Days: [phone], please page attending physician. Nights: [phone], please page [place] [facility] Night coverage pager [phone]. Subjective INTERVAL HPI: No acute events overnight. Patient appears to come to resting in bed. On supplemental oxygen. No complaints this a.m. Pending placement at SNF. Continue monitor. CM to plan dispo. Gi consulted -appreciate recommendations. Continue to monitor. Current Facility-Administered Medications Medication Dose Route Frequency atorvastatin 40 mg tab(s) (LIPITOR) 40 mg ORAL AT BEDTIME ipratropium-albuterol 3 mL nebulizer solution (DUONEB) 3 mL INHALATION q 4 H PRN aspirin 81 mg chewable tab(s) 81 mg ORAL DAILY amitriptyline 50 mg tab(s) (ELAVIL) 50 mg ORAL AT BEDTIME dextrose 40 % 15 g 15 g ORAL PRN Or glucagon 1 mg injection 1 mg INTRAMUSCULAR PRN Or dextrose 10% iv bolus 12.5 g INTRAVENOUS PRN cefTRIAXone iv piggyback 1 g in dextrose (iso-osmotic) 50 mL (ROCEPHIN) 1 g INTRAVENOUS q 24 H NaCl 0.9% iv flush bag 20 mL INTRAVENOUS PRN heparin 7,500 Units injection 7,500 Units SUBCUTANEOUS q 8 H miconazole 2 % 1 application topical powder 1 application TOPICAL BID gabapentin 100 mg cap(s) (NEURONTIN) 100 mg ORAL BID insulin lispro injection (rapid acting) (ADMElog) SUBCUTANEOUS w MEALS AND HS polyethylene glycol 3350 17 g packet 17 g ORAL DAILY PRN benzocaine-menthol 1 Lozenge (CEPACOL) 1 Lozenge MUCOUS MEMBRANE (TOPICAL MOUTH AND THROAT) q 2 H PRN benzonatate 100 mg cap(s) (TESSALON PERLE) 100 mg ORAL TID PRN guaiFENesin-dextromethorphan 100-10 mg/5 mL 10 mL oral liquid (ROBITUSSIN DM) 10 mL ORAL q 4 H PRN calcium carbonate 1,000 mg chewable tab(s) (TUMS) 1,000 mg ORAL TID PRN melatonin 3 mg tab(s) 3 mg ORAL AT BEDTIME PRN prochlorperazine 10 mg injection (COMPAZINE) 10 mg INTRAVENOUS q 6 H PRN acetaminophen 1,000 mg tab(s) (TYLENOL) 1,000 mg ORAL q 6 H PRN traMADol 50 mg tab(s) (ULTRAM) 50 mg ORAL q 6 H PRN ipratropium-albuterol 3 mL nebulizer solution (DUONEB) 3 mL INHALATION QID carvedilol 6.25 mg tab(s) (COREG) 6.25 mg ORAL BID w MEALS torsemide 20 mg tab(s) (DEMADEX) 20 mg ORAL DAILY valsartan 40 mg tab(s) (DIOVAN) 40 mg ORAL DAILY Objective PHYSICAL EXAM: BP 145/63 Pulse 80 Temp (Src) 97.5 (Axillary) Resp 16 Ht 5' 7" (1.70m) Wt 295 lb 13.7 oz (134.2kg) SpO2 100% BMI 46.33 kg/(m2). O2 Therapy: Nasal Cannula, Liters (Numeric Only): 2.00 Physical Exam Performed Constitutional: In no apparent distress. Vital signs stable. On supplemental oxygen Eye: Pupils are equal. Extraocular motions intact ENMT: No visible external trauma. Hearing grossly intact. Neck: No Jugular Vein Distention Cardiovascular: Regular rate and rhythm. S1 and S2 Respiratory: Reduced breath sounds bilaterally Gastrointestinal: Soft, without detectable tenderness. No sign of distention. No rebound or guarding, no masses palpated. Bowel sounds present Genitourinary: Bladder soft Musculoskeletal: Good range of motion of all major joints. Extremities without clubbing, without cyanosis, without edema Integumentary: No rash, no bruising, no lesions Neurologic: Oriented to person, place and time. No focal sensory or strength deficits. Speech normal. Follows commands Psychiatric: Calm, cooperative, appropriate Lines, Drains, and Airways Line Duration Peripheral 05/01/24 2040 Short Right Forearm 20 Gauge 5 days Peripheral 05/02/24 0640 [facility] Short Left Forearm 20 Gauge 5 days Drain Duration External Collection Device 05/02/24 0630 [facility] 5 days Reviewed lines and needs to be continued: REASONS: Intravenous fluids, Intravenous antibiotics, Telemetry, and Electrolyte replacement DATA: Diagnostic tests reviewed for today's visit: Most recent labs Most recent imaging Most recent EKG CBC, Coags, BMP, Mg, Phos Recent Labs 05/07/24 0741 05/06/24 0706 05/05/24 0605 WBC 4.04 -- 4.09 HB 8.8* -- 8.7* HCT 27.6* -- 27.4* PLT 67* -- 59* INR 1.2 -- -- NA 138 139 137 K 4.5 4.5 4.7 CHLOR 93* 95* 99 CO2 37* 33* 32* BUN 25* 23* 23* CREAT 0.98* 0.98* 0.96 GLUC 175* 108* 116* CA 8.9 9.3 9.8 Assessment/Plan Problem List Acute on chronic respiratory failure with hypoxia and hypercapnia (HCC) (POA: Yes) Endometrial cancer (HCC) (POA: Yes) Thrombocytopenia (HCC) (POA: Yes) Chronic systolic CHF (congestive heart failure) (HCC) (POA: Yes) RSV (respiratory syncytial virus pneumonia) (POA: Yes) Community acquired bacterial pneumonia (POA: Yes) Metastatic cancer (HCC) (POA: Yes) HOSPITAL COURSE: Pricila Díza (more content not included)... [facility] 05-06-2024 Note HNO ID: [id number] Author: LOPEZ HAWKINS MD Service: Hospital Medicine Author Type: Physician Type: Progress Notes Filed: 05/06/2024 10:49 Note Text: DEPARTMENT OF HOSPITAL MEDICINE PROGRESS NOTE SERVICE DATE: 05/06/2024 SERVICE TIME: 5:18 AM Hospital Medicine/Primary Attending: Lopez Hawkins MD NIGHT AND WEEKEND COVERAGE: [place] COVERAGE: Days: [phone], please page attending physician. Nights: [phone], please page [place] [facility] Night coverage pager [phone]. Subjective INTERVAL HPI: No acute events overnight. Patient appears to come to resting in bed. On supplemental oxygen. No complaints this a.m. Pending placement at SNF. Continue monitor. CM to plan dispo. Noted elevated LFTs this morning. Right upper quadrant ultrasound. Continue to monitor. Current Facility-Administered Medications Medication Dose Route Frequency atorvastatin 40 mg tab(s) (LIPITOR) 40 mg ORAL AT BEDTIME ipratropium-albuterol 3 mL nebulizer solution (DUONEB) 3 mL INHALATION q 4 H PRN aspirin 81 mg chewable tab(s) 81 mg ORAL DAILY amitriptyline 50 mg tab(s) (ELAVIL) 50 mg ORAL AT BEDTIME dextrose 40 % 15 g 15 g ORAL PRN Or glucagon 1 mg injection 1 mg INTRAMUSCULAR PRN Or dextrose 10% iv bolus 12.5 g INTRAVENOUS PRN cefTRIAXone iv piggyback 1 g in dextrose (iso-osmotic) 50 mL (ROCEPHIN) 1 g INTRAVENOUS q 24 H NaCl 0.9% iv flush bag 20 mL INTRAVENOUS PRN heparin 7,500 Units injection 7,500 Units SUBCUTANEOUS q 8 H miconazole 2 % 1 application topical powder 1 application TOPICAL BID gabapentin 100 mg cap(s) (NEURONTIN) 100 mg ORAL BID predniSONE 40 mg tab(s) (DELTASONE) 40 mg ORAL DAILY insulin lispro injection (rapid acting) (ADMElog) SUBCUTANEOUS w MEALS AND HS polyethylene glycol 3350 17 g packet 17 g ORAL DAILY PRN benzocaine-menthol 1 Lozenge (CEPACOL) 1 Lozenge MUCOUS MEMBRANE (TOPICAL MOUTH AND THROAT) q 2 H PRN benzonatate 100 mg cap(s) (TESSALON PERLE) 100 mg ORAL TID PRN guaiFENesin-dextromethorphan 100-10 mg/5 mL 10 mL oral liquid (ROBITUSSIN DM) 10 mL ORAL q 4 H PRN calcium carbonate 1,000 mg chewable tab(s) (TUMS) 1,000 mg ORAL TID PRN melatonin 3 mg tab(s) 3 mg ORAL AT BEDTIME PRN prochlorperazine 10 mg injection (COMPAZINE) 10 mg INTRAVENOUS q 6 H PRN acetaminophen 1,000 mg tab(s) (TYLENOL) 1,000 mg ORAL q 6 H PRN traMADol 50 mg tab(s) (ULTRAM) 50 mg ORAL q 6 H PRN ipratropium-albuterol 3 mL nebulizer solution (DUONEB) 3 mL INHALATION QID carvedilol 6.25 mg tab(s) (COREG) 6.25 mg ORAL BID w MEALS torsemide 20 mg tab(s) (DEMADEX) 20 mg ORAL DAILY valsartan 40 mg tab(s) (DIOVAN) 40 mg ORAL DAILY Objective PHYSICAL EXAM: BP 138/62 Pulse 84 Temp (Src) 98.4 (Axillary) Resp 18 Ht 5' 7" (1.70m) Wt 295 lb 13.7 oz (134.2kg) SpO2 96% BMI 46.33 kg/(m2). O2 Therapy: Nasal Cannula, Liters (Numeric Only): 2.00 Physical Exam Performed Constitutional: In no apparent distress. Vital signs stable. On supplemental oxygen Eye: Pupils are equal. Extraocular motions intact ENMT: No visible external trauma. Hearing grossly intact. Neck: No Jugular Vein Distention Cardiovascular: Regular rate and rhythm. S1 and S2 Respiratory: Reduced breath sounds bilaterally Gastrointestinal: Soft, without detectable tenderness. No sign of distention. No rebound or guarding, no masses palpated. Bowel sounds present Genitourinary: Bladder soft Musculoskeletal: Good range of motion of all major joints. Extremities without clubbing, without cyanosis, without edema Integumentary: No rash, no bruising, no lesions Neurologic: Oriented to person, place and time. No focal sensory or strength deficits. Speech normal. Follows commands Psychiatric: Calm, cooperative, appropriate Lines, Drains, and Airways Line Duration Peripheral 05/01/242039 Short Right Forearm 20 Gauge 4 days Peripheral 05/02/24 0640 [facility] Short Left Forearm 20 Gauge 3 days Drain Duration External Collection Device 05/02/24 06 [facility] 3 days Reviewed lines and needs to be continued: REASONS: Intravenous fluids, Intravenous antibiotics, Telemetry, and Electrolyte replacement DATA: Diagnostic tests reviewed for today's visit: Most recent labs Most recent imaging Most recent EKG CBC, Coags, BMP, Mg, Phos Recent Labs 05/05/24 0605/04/24 0653 WBC 4.09 4.11 HB 8.7* 8.5* HCT 27.4* 26.6* PLT 59* 56* NA 137 137 K 4.7 4.9 CHLOR 99 101 CO2 32* 29 BUN 23* 23* CREAT 0.96 1.00* GLUC 116* 107* CA 9.8 9.7 Assessment/Plan Problem List Acute on chronic respiratory failure with hypoxia and hypercapnia (HCC) (POA: Yes) Endometrial cancer (HCC) (POA: Yes) Thrombocytopenia (HCC) (POA: Yes) Chronic systolic CHF (congestive heart failure) (HCC) (POA: Yes) RSV (respiratory syncytial virus pneumonia) (POA: Yes) Community acquired bacterial pneumonia (POA: Yes) Metastatic cancer (HCC) (POA: Yes) HOSPITAL COURSE: Pricila Hooker (more content not included)... [facility] 05-05-2024 Note HNO ID: [id number] Author: ESTHER LORENZANA RN Service: Care Management Author Type: Registered Nurse Type: Care Mgt Progress Note Filed: 05/05/2024 10:30 Note Text: CARE MANAGEMENT PROGRESS NOTE SERVICE DATE: 05/05/2024 SERVICE TIME: 10:09 AM LOS: 3 days Needs Prior to Discharge: To Be Determined, Accepting Facility, Precertification, Discharge Transportation, Other: See Comment (HENS; medical clearance) CM following, chart reviewed. Updated on patient by Dr. Payne; adding BP medication. Met at bedside with patient to follow up on choices provided for SNF yesterday. Patient is agreeable to SNF and reports [facility] is [facility]. Also, discussed discharge transport; ambulance transport is needed due to her weakness. Potential cost explained; she remains agreeable. Patient then asked CM to speak with her sister. CM spoke with patient's sister, Milagro, via telephone. She reports FOC is [facility] and second choice is [facility]. Also discussed transport with her; she is considering if family can transport d/t concern about bill for transport. She also expressed concern about cost of SNF. CM advised her that transport bill will occur after the fact but to keep in mind patient's weakness and safety with transport. She is considering. Also, explained SNF needs approval by insurance and typically through day 20 is covered; however advised her to speak with accepting facility about any potential costs. Advised her to wait to call until accepting facility determined and that CM will call her with this update. Referrals placed in Transitions to 1-[facility] and 2-[facility]. Assigned CM will continue to follow. SIGNATURE: Esther Lorenzana RN PATIENT NAME: Pricila Hooker DATE: May 05, 2024 TIME: 10:09 AM [facility] 05-05-2024 Note HNO ID: [id number] Author: LEYDI PAYNE MD Service: Hospital Medicine Author Type: Physician Type: Progress Notes Filed: 05/05/2024 12:19 Note Text: HOSPITAL MEDICINE PROGRESS NOTE History: No new symptoms Exam: BP 153/77 Pulse 87 Temp 36.5 ?C (97.7 ?F) (Oral) Resp 18 Ht 170.2 cm (5' 7") Wt 134.2 kg (295 lb 13.7 oz) SpO2 93% BMI 46.34 kg/m? Physical Exam Cardiovascular: Rate and Rhythm: Normal rate. Pulmonary: Breath sounds: Wheezing present. Musculoskeletal: General: Swelling (1+) present. ASSESSMENT: Ms. Hooker, your 78 years have been affected by metastatic endometrial cancer, COPD on 3L, ALEXX not on CPAP, HTN GERD DM2 morbid obesity, chronic Systolic CHF (EF 44%). You presented to the hospital with SOB and acute hypoxic hypercarbic resp failure from copd exacerbation due to PNA and RSV. Also JACY on admit that has resolved. Continue steroids/nebs/abx. Improved resp status. Await placement. Of note, was on lasix at some time in past but not before admission. Has chronic leg edema. Will Rx oral diuretic. ARB was discontinued in past due to "low blood pressure" but currently, patient is not at goal BP. Will restart valsartan at low dose. Active Hospital Problems Diagnosis Date Noted Acute on chronic respiratory failure with hypoxia and hypercapnia (HCC) 05/02/2024 Community acquired bacterial pneumonia 05/03/2024 Metastatic cancer ([facility]) 05/03/2024 RSV (respiratory syncytial virus pneumonia) 05/02/2024 Chronic systolic CHF (congestive heart failure) ([facility]) 09/01/2023 Thrombocytopenia ([facility]) 11/03/2022 Endometrial cancer ([facility]) 07/24/2022 Leg blood clot prevention: heparin SIGNATURE: Leydi Payne MD DATE: 05/05/2024 TIME: 9:08 AM Morbid Obesity with alveolar hypoventilation , present on admission [facility] 05-05-2024 Note HNO ID: [id number] Author: LEYDI PAYNE MD Service: Hospital Medicine Author Type: Physician Type: Progress Notes Filed: 05/05/2024 09:01 Note Text: HOSPITAL MEDICINE PROGRESS NOTE History: No new symptoms Exam: BP 153/77 Pulse 87 Temp 36.5 ?C (97.7 ?F) (Oral) Resp 18 Ht 170.2 cm (5' 7") Wt 134.2 kg (295 lb 13.7 oz) SpO2 93% BMI 46.34 kg/m? Physical Exam Cardiovascular: Rate and Rhythm: Normal rate. Pulmonary: Breath sounds: Wheezing present. Musculoskeletal: General: Swelling (1+) present. ASSESSMENT: Ms. Hooker, your 78 years have been affected by metastatic endometrial cancer, COPD on 3L, ALEXX not on CPAP, HTN GERD DM2 morbid obesity, chronic Systolic CHF (EF 44%). You presented to the hospital with SOB and acute hypoxic hypercarbic resp failure from copd exacerbation due to PNA and RSA. Also JACY on admit that has resolved. Continue steroids/nebs/abx. Improved resp status. Await placement. Active Hospital Problems Diagnosis Date Noted Acute on chronic respiratory failure with hypoxia and hypercapnia (HCC) 05/02/2024 Community acquired bacterial pneumonia 05/03/2024 Metastatic cancer (HCC) 05/03/2024 RSV (respiratory syncytial virus pneumonia) 05/02/2024 Chronic systolic CHF (congestive heart failure) (HCC) 09/01/2023 Thrombocytopenia (HCC) 11/03/2022 Endometrial cancer ([facility]) 07/24/2022 Leg blood clot prevention: heparin SIGNATURE: Leydi Payne MD DATE: 05/05/2024 TIME: 7:56 AM Morbid Obesity with alveolar hypoventilation , present on admission [facility] 05-04-2024 Note HNO ID: [id number] Author: KEMI WHITMAN RN Service: Care Management Author Type: Registered Nurse Type: Care Mgt Progress Note Filed: 05/04/2024 13:56 Note Text: CARE MANAGEMENT PROGRESS NOTE SERVICE DATE: 05/04/2024 SERVICE TIME: 1:52 PM LOS: 2 days Needs Prior to Discharge: Facility or Agency Choices, Precertification, Discharge Transportation, Other: See Comment (Medical Clearance) [place] of Choice Given: Yes Level of Care Discussed: Long-Term Facility Financial Disclosure Provided: Yes Financial Disclosure Comments: per [facility] list Provider List: Long-Term Facility Provider list within the patient's requested geographic area shared with the patient/family: Yes within: 20 miles of zip code: ([address] and [id number]) Quality and resource use metrics shared with the patient that are relevant to the patient's goals of care and treatment preferences:: Yes Metrics: Incidence of Major Falls, Potentially Preventable 30-day Post Discharge Readmission Rates EMR reviewed. PT pending. OT recommending SNF. [facility] offered to [facility]. CM to follow up for choices. Patient will need precert and HENS. CM will follow. SIGNATURE: Kemi Whitman RN PATIENT NAME: Pricila Hooker DATE: May 04, 2024 TIME: 1:52 PM [facility] 05-04-2024 Note HNO ID: [id number] Author: LEYDI PAYNE MD Service: Care Management Author Type: Registered Nurse Type: Care Mgt Progress Note Filed: 05/04/2024 13:48 Note Text: Attestation signed by Leydi Payne MD at 05/04/2024 1:48 PM agreed CARE MANAGEMENT PROGRESS NOTE SERVICE DATE: 05/04/2024 SERVICE TIME: 1:47 PM LOS: 2 days Physician Certification of Less Than 30 Days Skilled Needs Earliest Possible Discharge Date: 05/04/24 To the best of my knowledge, all information provided about the individual is a true and an accurate reflection of Pricila Hooker's needs. I certify that following the inpatient level of care, a post-acute nursing facility stay is required for less than 30 days related to the condition(s) for which the patient was treated during the inpatient level of care: Principal Problem: Acute on chronic respiratory failure with hypoxia and hypercapnia (HCC) Active Problems: Endometrial cancer (HCC) Thrombocytopenia (HCC) RSV (respiratory syncytial virus pneumonia) Community acquired bacterial pneumonia Metastatic cancer (HCC) Resolved Problems: Other specified anemias Hyponatremia Hyperkalemia JACY (acute kidney injury) (HCC) Transaminitis Acute respiratory failure with hypoxia and hypercapnia (HCC) RSV (acute bronchiolitis due to respiratory syncytial virus) Weakness ACP (advance care planning) Encounter for palliative care Attending Physician: Leydi Payne MD SIGNATURE: Kemi Whitman RN PATIENT NAME: Pricila Hooker DATE: May 04, 2024 TIME: 1:47 PM [facility] 05-04-2024 Note HNO ID: [id number] Author: LEYDI PAYNE MD Service: Hospital Medicine Author Type: Physician Type: Progress Notes Filed: 05/04/2024 11:25 Note Text: HOSPITAL MEDICINE PROGRESS NOTE History: No new symptoms Exam: BP 147/64 Pulse 87 Temp 36.9 ?C (98.4 ?F) (Oral) Resp 17 Ht 170.2 cm (5' 7") Wt 134.2 kg (295 lb 13.7 oz) SpO2 93% BMI 46.34 kg/m? Physical Exam Cardiovascular: Rate and Rhythm: Normal rate. Pulmonary: Breath sounds: Wheezing present. Musculoskeletal: General: Swelling (1+) present. ASSESSMENT: Ms. Hooker, your 78 years have been affected by metastatic endometrial cancer, COPD on 3L, ALEXX not on CPAP, HTN GERD DM2 morbid obesity. You presented to the hospital with SOB and acute hypoxic hypercarbic resp failure from copd exacerbation due to PNA and RSA. Also JACY on admit that has resolved. Continue steroids/nebs/abx. Improved. Await placement. BP better on home coreg. Active Hospital Problems Diagnosis Date Noted Acute on chronic respiratory failure with hypoxia and hypercapnia (HCC) 05/02/2024 Community acquired bacterial pneumonia 05/03/2024 Metastatic cancer (HCC) 05/03/2024 RSV (respiratory syncytial virus pneumonia) 05/02/2024 Thrombocytopenia (HCC) 11/03/2022 Endometrial cancer (HCC) 07/24/2022 Leg blood clot prevention: heparin SIGNATURE: Leydi Payne MD DATE: 05/04/2024 TIME: 11:24 AM [facility] 05-03-2024 Note HNO ID: [id number] Author: LEYDI PAYNE MD Service: Hospital Medicine Author Type: Physician Type: Progress Notes Filed: 05/03/2024 13:56 Note Text: HOSPITAL MEDICINE PROGRESS NOTE History: SOB better. No new symptoms. Patient reports she doesn't use a cpap or bipap at home. Exam: BP 198/91 Pulse 84 Temp 36.6 ?C (97.8 ?F) (Oral) Resp 20 Ht 170.2 cm (5' 7") Wt 134.2 kg (295 lb 13.7 oz) SpO2 97% BMI 46.34 kg/m? Physical Exam Cardiovascular: Rate and Rhythm: Normal rate. Pulmonary: Breath sounds: Wheezing present. Musculoskeletal: General: Swelling (1+) present. ASSESSMENT: Ms. Hooker, your 78 years have been affected by metastatic endometrial cancer, COPD on 3L, ALEXX not on CPAP, HTN GERD DM2 morbid obesity. You presented to the hospital with SOB and acute hypoxic hypercarbic resp failure from copd exacerbation due to PNA and RSA. Also JACY on admit that has resolved. Continue steroids/nebs/abx. Now on 3L. [facility] to [facility]. Observe off night cpap/bipap tonight. If does well tomorrow, dc home with home care. HTN - add back home coreg. Active Hospital Problems Diagnosis Date Noted Acute on chronic respiratory failure with hypoxia and hypercapnia (HCC) 05/02/2024 Community acquired bacterial pneumonia 05/03/2024 Metastatic cancer (HCC) 05/03/2024 RSV (respiratory syncytial virus pneumonia) 05/02/2024 Thrombocytopenia (HCC) 11/03/2022 Endometrial cancer ([facility]) 07/24/2022 Leg blood clot prevention: heparin SIGNATURE: Leydi Payne MD DATE: 05/03/2024 TIME: 1:56 PM [facility] 05-03-2024 Note HNO ID: [id number] Author: NARCISO GEORGE RPh Service: Pharmacy Author Type: Pharmacist Type: Plan of Care Filed: 05/03/2024 13:23 Note Text: PHARMACY MEDICATION REVIEW Patient Name: Pricila Hooker : 1945 The following medications were updated within the SENIOR ACCOUNT CLERK medication list: Medications ADDED to SENIOR ACCOUNT CLERK medication list none Medications CHANGED on SENIOR ACCOUNT CLERK medication list none Medications REMOVED from SENIOR ACCOUNT CLERK medication list Furosemide Valsartan Additional comments: N/A The below information represents the best possible medication history: Yes Medication history completed by: Pharmacist: Narciso George RPh Source of history: Family: Reliability of source: Appears reliable, clearly identified: Medication name, Medication dose, Medication frequency, and Timing of last dose and Spoke with sister Medication nonadherence identified: No barriers noted Reconciliation completed: Yes Completed by: Narciso George RPh All SENIOR ACCOUNT CLERK medications addressed by LIP Patient interested in Bedside Delivery Services or using CC OP Pharmacy at discharge? No Preferred outpatient pharmacy: e- [facility] [address] [place] [address] [address] [facility] [phone] e- [facility] [place] [address] - [address] [facility] - [phone] [facility] [place] [facility] Allergies: No Known Allergies Prior to Admission Medications Prescriptions Last Dose Informant Patient Reported? Taking? Blood Pressure Monitor No No Sig: Take your blood pressure everyday and keep a log DULoxetine (CYMBALTA) 60 mg capsule Past Week No Yes Sig: Take 1 capsule by mouth once daily Lancets lancets No No Sig: Test one time daily, Insulin Dep? No E11.9 DM 2 Magnesium Chloride (SLOW-MAG) 71.5 mg TbEC Past Week No Yes Sig: Take 1 tablet by mouth twice daily. acetaminophen (TYLENOL EXTRA STRENGTH) 500 mg tablet Unknown No No Sig: Take 2 tablets by mouth every 6 hours as needed for pain. alcohol swabs (ALCOHOL PADS) Unknown No No Sig: Test one time daily, Insulin Dep? No E11.9 DM 2 amitriptyline (ELAVIL) 50 mg tablet Past Week No Yes Sig: Take 1 tablet by mouth daily at bedtime. aspirin 81 mg cap Past Week Yes Yes Sig: Take 81 mg by mouth once daily. atorvastatin (LIPITOR) 40 mg tablet Past Week No Yes Sig: TAKE 1 TABLET BY MOUTH ONCE DAILY AT BEDTIME FOR CHOLESTEROL blood sugar diagnostic (BLOOD GLUCOSE TEST) test strip No No Sig: Test one time daily, Insulin Dep? No E11.9 DM 2 Patient not taking: Reported on 04/14/2024 carvedilol (COREG) 3.125 mg tablet Past Week No Yes Sig: Take 2 tablets by mouth two times a day with meals. Patient taking differently: Take 6.25 mg by mouth two times a day with meals. Hold if SBP < 100 dulaglutide (TRULICITY) 3 mg/0.5 mL pen injector Past Week No Yes Sig: Inject 3 mg subcutaneously one time a week. Patient Assistance Medication. enteric contrast (will be provided with radiology test) No No Sig: For CT ABD/PEL W IVCON Routine order Administer, As Directed One Time Only, via Oral, Rectal, both Oral and Rectal, Enteric Tube, Stoma or Indwelling Catheter, Enteric Contrast as designated per enteric contrast guidelines fluticasone-vilanterol (BREO ELLIPTA) 100-25 mcg/dose inhaler Past Week No Yes Sig: Inhale 1 Inhalation as instructed once daily. gabapentin (NEURONTIN) 100 mg capsule Past Week No Yes Sig: Take 1 capsule by mouth two times a day for 180 days. glimepiride (AMARYL) 4 mg tablet Past Week No Yes Sig: Take 1 tablet by mouth two times a day with meals. iv contrast (will be provided with radiology test) No No Sig: CT Chest W -Inject, intravenously, once for 1 dose.No IV access, insert saline lock prior to the beginning of sedation, infusion, injection of imaging exam. Discontinue saline lock post exam. If Pt. has a central line or IVAD, may access for administration according to line specific nursing protocol. Once exam is complete flush line and de-access according to line specific nursing protocol in the CT contrast administration guidelines link. iv contrast (will be provided with radiology test) No No Sig: CT ABD/PEL -Inject, intravenously, once for 1 dose.No IV access, insert saline lock prior to the beginning of sedation, infusion, injection of imaging exam. Discontinue saline lock post exam. If Pt. has a central line or IVAD, may access for administration according to line specific nursing protocol. Once exam is complete flush line and de-access according to line specific nursing protocol in the CT contrast administration guidelines link. lidocaine-prilocaine (EMLA) 2.5-2.5 % cream Past Week No Yes Sig: Apply to affected area as needed. metFORMIN (GLUCOPHAGE) 500 mg tablet Past Week No Yes Sig: Take 2 tablets by mouth two times a day with meals. . silver sulfADIAZINE (SILVADENE) 1 % cream Unknown No No Sig: Apply to affected area once daily. tr (more content not included)... [facility] 05-03-2024 Telephone encounter Note OV canceled. [facility] Work Phone: 05-03-2024 Miscellaneous Notes OV canceled. Please cancel today's OV scheduled with Dr. Branham. Patient is currently admitted in the hospital. Thank you. Reena Peace RN documented in this encounter [facility] 05-03-2024 Telephone encounter Note Please cancel today's OV scheduled with Dr. Branham. Patient is currently admitted in the hospital. Thank you. Reena Peace RN [facility] 05-03-2024 Note HNO ID: [id number] Author: LUZ ELENA COWART MD Service: Critical Care Author Type: Physician Type: Progress Notes Filed: 05/03/2024 10:40 Note Text: ICU DAILY PROGRESS NOTE Assessment and Plan 78 y/o F with a PMH of Metastatic endometrial adenocarcinoma with progression of R lung nodule, COPD (FEV1: 57%), chronic hypoxic resp failure (3L NC), ALEXX, HTN, GERD, and DM II that is admitted to ICU for acute on chronic hypoxic and hypercapnic resp failure. Problems: Acute on chronic hypoxic and hypercapnic resp failure COPD with acute Exacerbation 2/2 RSV and superimposed bacterial PNA Hyponatremia (POA) JACY (POA) Chronic thrombocytopenia Metastatic cancer with progression Plan 1. Wean oxygen for sats 88-92% 2. Continue Q4hr duonebs, transition to PO prednisone, ceftriaxone/Azithro, follow CAP antigens, and cultures 3. Palliative care following Heparin Sub Q Transfer to Floor ICU Checklist Last Documented/Reviewed time: 05/02/2024 9:06 AM ICU Consent Complete?: Yes ICU Code Status "History assess/Full code by default: No, active code status present -------- A= Assess, Prevent, Manage Pain Pain adequately controlled?: Yes C= Choice of Sedation and Analgesia RASS at Goal?: Yes B= Both Spontaneous Awakening and Breathing Trials Ventilator: None D= Delirium: Assess, Prevent and Manage ICU Delirium Status: CAM Positive - existing, continue interventions Sleep adequate?: Yes Restraint Status: None E= Early Mobility/Excercise ICU Mobility: ICU Mobility Goal: Sit at edge of bed F= Family Engagement and Empowerment ICU plan of care visit at bedside in last 24 hours: Yes, Provider, RN, Patient/ designee ICU Disposition: ICU Disposition-POC Detail: Yes-Electric Train Driver notified Prevention: Line Status: Implanted vascular access device (Port-a-cath, Medi-port) Implant Vasc Access Dev Status: Still need today Elaine Status: None Pressure Injury Status: None GI/Stress Ulcer Prophylaxis: None - not required Nutrition is at Goal: NPO VTE Prophylaxis: Chemoprophylaxis: Heparin SQ This patient has a high probability of sudden, clinically significant deterioration, which requires the highest level of physician preparedness to intervene urgently. I managed/supervised life or organ supporting interventions that required frequent physician assessment. I devoted my full attention to the direct care of this patient for the amount of time indicated below. Time I spent with family or surrogate(s) is included only if the patient was incapable of providing the necessary information or participating in medical decision making. Time devoted to teaching is not included. Critical Care Documentation: The patient has the following organ/system impairment(s): Respiratory failure (Acute on Chronic, with Hypercapnea, with Hypoxemia) Patient/Family Updated: Patient, Pricila Hooker, contacted. They were updated on the patient's goals of care, medical plan for the day, clinical program consultant recommendations, medical disposition and current medical condition/prognosis as and if clinically indicated. All questions and concerns were answered and addressed at this juncture. Plan of care discussed with: Provider, RN, Patient. Time spent providing critical care services: 32 minutes excluding procedures. HPI: 78 y/o F with a PMH of Metastatic endometrial adenocarcinoma with progression of R lung nodule, COPD (FEV1: 57%), chronic hypoxic resp failure (3L NC), ALEXX, HTN, GERD, and DM II that is admitted to ICU for acute on chronic hypoxic and hypercapnic resp failure. 3/-admitted this morning, remains on BIPAP, following commands 05/03-NAEON, on 3L NC satting well Physical Exam Vital signs reviewed General : NAD, pleasant Lungs: Diminished B/L Abdomen: Soft and nontender Hemoglobin (g/dL) Date Value 05/03/2024 8.3 03/28/2020 14.7 Hematocrit (%) Date Value 05/03/2024 25.4 03/28/2020 42.9 WBC (k/uL) Date Value 05/03/2024 4.11 03/28/2020 7.94 Relevant Imaging: Portions of this note including HPI, ROS, impression/plan, and examination may have been copied forward as to provide important historical information essential in contributing to medical decision making. Documentation has been reviewed and edited as necessary to support clinical decision making for today's visit and to reflect my own independent evaluation of this patient on 05/03/2024 Luz Elena Cowart MD [facility] 05-02-2024 Note HNO ID: [id number] Author: LAYO GIRON RN Service: Care Management Author Type: Registered Nurse Type: Care Mgt Initial Assessment Filed: 05/02/2024 14:50 Note Text: CARE MANAGEMENT: ASSESSMENT AND DISCHARGE PLAN SERVICE DATE: May 02, 2024 SERVICE TIME: 2:46 PM PCP: Vinh Van MD--Confirmed Primary Contact: Extended Emergency Contact Information Primary Emergency Contact: Milagro Barboza Address: [address] [place] [id number] [facility] Mobile Relation: Sister Admission Status: Inpatient Insurance Provider: [employer] HMO Discharge Planning requested by: Per Department Practice Potential Transition Plans Home, Home Care, Home OT/PT, Long-Term Facility/Intermediate Care Facility, To Be Determined Advance Directives Current Advance Directive: Health Care Power of Residential Property Consultant, Living Will In Chart: Yes Up To Date and Valid: Yes Current Living Arrangements and Support Lives with: Family members Type of Residence: Private Residence (House) Does the patient have to climb stairs at home?: No Support: Family members How do you manage to accomplish the following: Needs Assistance: Ambulation, Bathe/Shower, Dress, Meals/Meal Prep, Going to the bathroom, Medication Management, Transportation to appointments/community Current Services/Equipment Current Post-Acute Service(s): DME, Oxygen Current O2 Usage (device, rate, continuous/pulse and hrs per day): nasal cannula, 3 LPM, 24 hours/day, pulse Current DME Type: Rolling walker, Bedside commode, Elevated toilet seat, Grab bars, Shower seat, Oxygen Current Post-Acute Service(s) Provider: [facility] Discharge Planning Patient Goal(s): Independent living, Be able to go home, General wellness Manley of Choice Explained: Manley of Choice Given: No Reason Not Given: Unable to complete with this assessment - revisit Are you interested in bedside delivery of your medications? No Uses [facility] in [place]. Discharge Planning Participant(s): Patient, Family Patient/Family Comments: Caregiver Assessment: Caregiver is ready, willing and able to meet the patient's needs as recommended by the inter-professional team: Other: See Comment (TBD) Transport at Discharge: Transportation Arrangements: To Be Determined Needs Prior to Discharge: Needs Prior to Discharge: To Be Determined, Other: See Comment, IV Antibiotics (Medical Clearance) Post-Acute Discharge Plan: Case Management met at bedside with patient and sister, introduced self and role. Pt is 78 y/o, with admitting Dx of AOC Resp Fail with hypoxia and hypercapnia. On IV ABX and IV Solumedrol. Pall Med on consult. Patient is on cont BiPAP, wears 3L NC thru [employer]. Pt is AANDO X 3, requires assistance with all ADL's SENIOR ACCOUNT CLERK. Patient is from home with sister. Sister very supportive. No active services. Uses a wheeled walker for ambulation. Transport TBD. CM instructed patient that CM team will remain available for any dc needs. SIGNATURE: Layo Giron RN PATIENT NAME: Pricila Hooker DATE: May 02, 2024 TIME: 2:46 PM [facility] 05-02-2024 Note HNO ID: [id number] Author: LUZ ELENA COWART MD Service: Critical Care Author Type: Physician Type: Progress Notes Filed: 05/02/2024 11:06 Note Text: ICU DAILY PROGRESS NOTE Assessment and Plan 78 y/o F with a PMH of Metastatic endometrial adenocarcinoma with progression of R lung nodule, COPD (FEV1: 57%), chronic hypoxic resp failure (3L NC), ALEXX, HTN, GERD, and DM II that is admitted to ICU for acute on chronic hypoxic and hypercapnic resp failure. Problems: Acute on chronic hypoxic and hypercapnic resp failure COPD with acute Exacerbation 2/2 RSV and superimposed bacterial PNA Hyponatremia (POA) JACY (POA) Chronic thrombocytopenia Metastatic cancer with progression Plan 1. Continue BIPAP and recheck blood gas 2. Continue Q4hr duonebs, IV solumedrol, Vanc/ceftriaxone/Azithro, follow CAP antigens, and cultures 3. Palliative care consulted overnight Heparin Sub Q ICU Checklist Last Documented/Reviewed time: 05/02/2024 3:56 AM ICU Consent Complete?: Yes ICU Code Status "History assess/Full code by default: No, active code status present -------- A= Assess, Prevent, Manage Pain Pain adequately controlled?: Yes C= Choice of Sedation and Analgesia RASS at Goal?: Yes B= Both Spontaneous Awakening and Breathing Trials Ventilator: None D= Delirium: Assess, Prevent and Manage ICU Delirium Status: CAM Positive - existing, continue interventions Sleep adequate?: Yes Restraint Status: None E= Early Mobility/Excercise ICU Mobility: ICU Mobility Goal: Sit at edge of bed F= Family Engagement and Empowerment ICU plan of care visit at bedside in last 24 hours: Yes, Provider, RN, Patient/ designee ICU Disposition: ICU Disposition-POC Detail: Yes-Electric Train Driver notified Prevention: Line Status: Implanted vascular access device (Port-a-cath, Medi-port) Implant Vasc Access Dev Status: Still need today Elaine Status: None Pressure Injury Status: None GI/Stress Ulcer Prophylaxis: None - not required Nutrition is at Goal: NPO VTE Prophylaxis: Chemoprophylaxis: Heparin SQ This patient has a high probability of sudden, clinically significant deterioration, which requires the highest level of physician preparedness to intervene urgently. I managed/supervised life or organ supporting interventions that required frequent physician assessment. I devoted my full attention to the direct care of this patient for the amount of time indicated below. Time I spent with family or surrogate(s) is included only if the patient was incapable of providing the necessary information or participating in medical decision making. Time devoted to teaching is not included. Critical Care Documentation: The patient has the following organ/system impairment(s): Respiratory failure (Acute on Chronic, with Hypercapnea, with Hypoxemia) Patient/Family Updated: Patient, Pricila Hooker, contacted. They were updated on the patient's goals of care, medical plan for the day, clinical program consultant recommendations, medical disposition and current medical condition/prognosis as and if clinically indicated. All questions and concerns were answered and addressed at this juncture. Plan of care discussed with: Provider, RN, Patient. Time spent providing critical care services: 35 minutes excluding procedures. HPI: 78 y/o F with a PMH of Metastatic endometrial adenocarcinoma with progression of R lung nodule, COPD (FEV1: 57%), chronic hypoxic resp failure (3L NC), ALEXX, HTN, GERD, and DM II that is admitted to ICU for acute on chronic hypoxic and hypercapnic resp failure. 3/4-admitted this morning, remains on BIPAP, following commands Physical Exam Vital signs reviewed General : NAD, on BIPAP, following commands Lungs: Diminished B/L Abdomen: Soft and nontender Hemoglobin (g/dL) Date Value 05/01/2024 9.1 03/28/2020 14.7 Hematocrit (%) Date Value 05/01/2024 28.6 03/28/2020 42.9 WBC (k/uL) Date Value 05/01/2024 3.70 03/28/2020 7.94 Relevant Imaging: Portions of this note including HPI, ROS, impression/plan, and examination may have been copied forward as to provide important historical information essential in contributing to medical decision making. Documentation has been reviewed and edited as necessary to support clinical decision making for today's visit and to reflect my own independent evaluation of this patient on 05/02/2024 Luz Elena Cowart MD [facility] 05-01-2024 Note SARS-COV-2 (AGENT OF COVID-19) RNA: Not detected INFLUENZA A RNA: Not detected INFLUENZA B RNA: Not detected RESPIRATORY SYNCYTIAL VIRUS (RSV) RNA: Detected [facility] Comment on above: Performed By: #### 9 [id number] #### [facility] CLIA [id number] [address] [place] [id number] [place] [address] STATES [facility] 04-30-2024 Note [facility] Medical Records Department [address] [place] [address] Discharge Summary 04/30/24 1406 MR#: [id number] Acct: [id number] Name: PRICILA HOOKER Rep #: [id number] : 1945 78 From: Eddie Vera MD PCP: Dr. Vinh Van MD Status:ADM IN Location: [place] [address] Providers Date of Admission: 04/28/24 Primary Care Physician: Dr. Vinh Van MD Reason For Visit: FEVER AND AMS WITH METASTATIC ENDOMETRIAL Diagnosis Discharge Diagnosis (1) Adverse drug reaction: Status: Acute Code(s): T50.905A - Adverse effect of unspecified drugs, medicaments and biological substances, initial encounter Qualifiers: Encounter type: initial encounter Qualified Code(s): T50.905A - Adverse effect of unspecified drugs, medicaments and biological substances, initial encounter (2) Fever: Status: Acute Code(s): R50.9 - Fever, unspecified Qualifiers: Fever type: unspecified Qualified Code(s): R50.9 - Fever, unspecified (3) Metabolic encephalopathy: Status: Acute Code(s): G93.41 - Metabolic encephalopathy Medications at Discharge Home Medications amitriptyline 50 mg tablet 50 mg PO QHS DEPRESSION 12/23/22 atorvastatin 40 mg tablet 40 mg PO QHS CHOLESTEROL 12/23/22 dulaglutide 3 mg/0.5 mL subcutaneous pen injector (Trulicity) 3 mg subcut TU DIABETES 12/23/22 gabapentin 100 mg capsule 100 mg PO TID NERVE PAIN 12/23/22 magnesium chloride 71.5 mg (magnesium chloride) tablet,delayed release (Slow-Mag) 71.5 mg PO BID SUPPLEMENT 12/29/22 ondansetron HCl 8 mg tablet 8 mg PO Q12H PRN NAUSEA 12/29/22 aspirin 81 mg tablet,delayed release (Adult Low Dose Aspirin) 81 mg PO DAILY HEART HEALTH 01/24/23 acetaminophen 500 mg tablet (Acetaminophen Extra Strength) 500 mg PO Q6H PRN PAIN 03/10/23 glimepiride 4 mg tablet 4 mg PO BID DIABETES 03/10/23 silver sulfadiazine 1 % topical cream 1 applic topical DAILY PRN BURN 03/10/23 carvedilol 3.125 mg tablet 6.25 mg PO BID 12/17/23 duloxetine 60 mg capsule,delayed release 60 mg PO DAILY 04/27/24 fluticasone furoate 100 mcg-vilanterol 25 mcg/dose inhalation powder 1 inh inhalation Q24H 04/27/24 metformin 500 mg tablet 1,000 mg PO BID DIABETES 04/27/24 cefdinir 300 mg capsule 300 mg PO BID #10 caps 04/30/24 Hospital Course Operations None Procedures None Summary of Care Provided Minutes Spent on Discharge: 33 Hospital Course: Per HPI: PRICILA HOOKER, is a 78 F with a past medical history of essential hypertension; on carvedilol, hyperlipidemia; on atorvastatin, morbid obesity; with BMI of 45.3 this admission, former tobacco abuse (quit 1967), DM-2; of unknown control on dulaglutide, glimepiride and metformin, history of diabetic neuropathy; on gabapentin 3 times daily, history of CAD; on baby aspirin daily, history of nonischemic cardiomyopathy, CKD; stage IIIa, history of asthma; on fluticasone furoate- vilanterol, chronic hypoxic respiratory failure on 3L NC (nocturnal), depression; on duloxetine and amitriptyline, history of cataract surgery, history of cholecystitis; s/p laparoscopic cholecystectomy, history of GERD; currently not on treatment, OA; with history of bilateral TKR's and history of metastatic endometrial cancer; s/p total hysterectomy on chemotherapy with history of pancytopenia followed by Dr. Branham of oncology who presents to [facility] ER complaining of fever and confusion. Ms. Hooker is not a fully-reliable historian at this time so information was gathered from chart, medical staff and computer. The patient's family informed the ER physician that she was noted to be confused at home earlier today with patient asking her sister to take her socks off - even though she did not have any socks on at that time. The family also reported that she had new chemotherapy 2 days ago with patient apparently having difficulty tolerating her new regimen after she has been taken off her old chemotherapy regimen because it was not working and was causing adverse side effects. The family then called Dr. Branham's office and they were instructed to bring her into the ER for further evaluation and treatment. Though the patient is a limited historian she admits to intermittent nausea with vomiting causing bilious emesis. She denies associated chills, headaches, visual changes, chest pain, shortness of breath, cough, dysuria, hematuria, abdominal pain, diarrhea, constipation or rash. In the ER she was noted to have a fever of 103.1 ???F along with Tachycardia of 111 bpm and Uncontrolled Hypertension of 183/85 mmHg present on admission likely due to Adverse Drug Reaction to Chemotherapy suspected to be causing Fever with Metabolic Encephalopathy with CT scan of the abdomen pelvis done in ER revealing no obstruction or acute inflammatory process with Left-sided omental nodularity with mild thickening of the Left pericolic gutter fasc (more content not included)... [facility] 04-27-2024 Telephone encounter Note Milagro called back stating patient is unable to walk to car and that Milagro would be the one driving her to [place], She states this is a problem. Patient will be going by squad to [facility]. [facility] Work Phone: 04-27-2024 Miscellaneous Notes Milagro called back stating patient is unable to walk to car and that Milagro would be the one driving her to [place], She states this is a problem. Patient will be going by squad to [facility]. Care Coordination Triage Note [facility] [place] Situation: Patient reports Fever, Nausea/Vomiting, and Other High blood pressure Background: Endometrial, on Gemzar, Cycle 1 04/25/24 Assessment: Sister calls and states that patient states feeling "whoozey", lightheaded after breakfast and wanted to go back to bed. She was also "confused and saying weird things" but now that is better. She was having chills but is in bed now and warm. Slight nausea and 1 episode of vomiting while on phone with sister. Blood sugar prior to call 227. BP this am 164/85 HR 103, this afternoon 175/98 HR 112 While on phone: O2 94% with 3L O2 Temperature 103.2F Sister advised to go at this time to [place] ED. They will leave immediately. Recommendations: Per RNCC, patient directed to: Emergency Room due to the issue being urgent. Sister will take patient to [place] ED. Dr. Carrol cortez. Debi Chatman RN April 27, 2024 2:56 PM documented in this encounter [facility] 04-27-2024 Telephone encounter Note Care Coordination Triage Note [facility] [place] Situation: Patient reports Fever, Nausea/Vomiting, and Other High blood pressure Background: Endometrial, on Gemzar, Cycle 1 04/25/24 Assessment: Sister calls and states that patient states feeling "whoozey", lightheaded after breakfast and wanted to go back to bed. She was also "confused and saying weird things" but now that is better. She was having chills but is in bed now and warm. Slight nausea and 1 episode of vomiting while on phone with sister. Blood sugar prior to call 227. BP this am 164/85 HR 103, this afternoon 175/98 HR 112 While on phone: O2 94% with 3L O2 Temperature 103.2F Sister advised to go at this time to [place] ED. They will leave immediately. Recommendations: Per RNCC, patient directed to: Emergency Room due to the issue being urgent. Sister will take patient to [place] ED. Dr. Carrol cortez. Debi Chatman RN April 27, 2024 2:56 PM [facility] Work Phone: 04-26-2024 Telephone encounter Note CYCLE 1/DAY 1 POST TREATMENT CALL Today's date: April 26, 2024 Treatment Regimen: Gemzar C1D1 Date: 04/25/24 Called patient to follow-up on symptom management. Spoke with patient SYMPTOM ASSESSMENT Neuro: None CV/Resp: None GI/: None Denies N/V/D Appetite was decreased yesterday. Patient had toast, yogurt, and OJ for breakfast this morning. Integument: None Activity: Patient reported no changes in energy level, energy level good Pain: patient stated she normally has pain on her right side but today it's only 2/10. Decreased from normal baseline. Fever: No Chills: No Any new referrals needed? No Reinforced CURRENT treatment education based on current and anticipated symptoms. Discussed port/line care and patient verbalizes understanding: Yes Patient instructed to contact office or after hours Hematology/Oncology fellow for: temperature >= 100.4; questions or concerns. Patient verbalized understanding of when to seek medical attention and after hours number protocol. Reena Peace RN [facility] 04-26-2024 Miscellaneous Notes CYCLE 1/DAY 1 POST TREATMENT CALL Today's date: April 26, 2024 Treatment Regimen: Gemzar C1D1 Date: 04/25/24 Called patient to follow-up on symptom management. Spoke with patient SYMPTOM ASSESSMENT Neuro: None CV/Resp: None GI/: None Denies N/V/D Appetite was decreased yesterday. Patient had toast, yogurt, and OJ for breakfast this morning. Integument: None Activity: Patient reported no changes in energy level, energy level good Pain: patient stated she normally has pain on her right side but today it's only 2/10. Decreased from normal baseline. Fever: No Chills: No Any new referrals needed? No Reinforced CURRENT treatment education based on current and anticipated symptoms. Discussed port/line care and patient verbalizes understanding: Yes Patient instructed to contact office or after hours Hematology/Oncology fellow for: temperature >= 100.4; questions or concerns. Patient verbalized understanding of when to seek medical attention and after hours number protocol. Reena Peace RN documented in this encounter [facility] 04-24-2024 Telephone encounter Note Pt sister notified. Uma Pinto LPN [facility] 04-24-2024 Miscellaneous Notes Pt sister notified. Uma Pinto LPN She is currently on gemcitabine. Yes she can still have cataract surgery. Nora Branham DO Pt is scheduled to have an eye apt tomorrow to discuss possible cataract surgery. However pt is currently getting carbolatin and is asking if she would be able to have cataract surgery if she is on current treatment. Please advise. Sister Milagro [phone] Uma Pinto LPN documented in this encounter [facility] 04-24-2024 Telephone encounter Note She is currently on gemcitabine. Yes she can still have cataract surgery. Nora Branham DO [facility] 04-24-2024 Telephone encounter Note Pt is scheduled to have an eye apt tomorrow to discuss possible cataract surgery. However pt is currently getting carbolatin and is asking if she would be able to have cataract surgery if she is on current treatment. Please advise. Sister Milagro [phone] Uma Pinto LPN [facility] 04-21-2024 Note [facility] 04-21-2024 History of Present illness Narrative This visit was completed over the phone. ONCOLOGY PATIENT EDUCATION NOTE TOPIC: Chemotherapy, Medications: Gemzar patient and sister called today for education for treatment of Endometrial Cancer Anticipated/Scheduled start date: 04/25/24 READINESS TO LEARN: COGNITIVE ABILITY: Alert and oriented MOTIVATION TO LEARN: Interested FAMILY SUPPORT: High - Very involved in pt care INSTRUCTION PROVIDED TO: Patient and Family member INSTRUCTION PROVIDED BY: Nurse Coordinator PATIENT LEARNS BEST BY: Multiple Methods FACTORS AFFECTING LEARNING: None PHYSICAL LIMITATIONS AFFECTING LEARNING: None LEARNING RESPONSE METHOD OF INSTRUCTION: Individual instruction Written instruction/Handouts Verbal instruction PATIENT/FAMILY RESPONSE: Verbalizes understanding of: CHEMOTHERAPY-Regimen, toxicity and side effects FOLLOW UP PLAN: Patient instructed to call with any further issues Recommend - Recommend continued instruction and follow up as directed Follow up phone call. Contact information given. SUPPLEMENTAL MATERIAL: Written material was provided at this visit with the following information: - Chemotherapy education was provided by a pharmacist NO - Side effect management information was provided/discussed including but not limited to: anemia, appetite changes, arthralgia, bowel habit changes, diet, electrolyte disturbances, fatigue, nausea/vomitting, neutropenia, rash, thrombocytopenia YES - Provided important phone numbers and contacts during and after hours. YES - Provided information on symptoms that require immediate assistance. YES - Provided Chemotherapy "when to call" handouts YES - Preventing infection. YES - Treatment schedule and confirmation of appointment times. YES - Available support groups. YES - The importance of contraception during the course of chemotherapy YES - Neutropenic fever protocol discussed with patient, which included the importance of reporting any fever of 100.4F (38.0C) or greater to the healthcare team as noted on the provided wallet card and/or magnet. YES Time Spent: 20-25 minutes REFERRAL (RECOMMENDATION): N/A Reena Peace RN documented in this encounter [facility] 04-19-2024 Instructions Tatyana Rahman APRN.CNP - 04/19/2024 11:15 AM EST Fluticasone-vilanterol (Breo) 100-25 MCG 1 puff once daily. Rinse mouth after every use. Complete overnight oxygen testing. This will come from [facility]. If you don't hear anything from my office by a week after you returned the monitor to [facility], please reach out. documented in this encounter [facility] 04-19-2024 History of Present illness Narrative Images from the original note were not included. Pulmonary Medicine Patients name: Pricila Hooker PCP: Vinh Van MD CC: follow-up HPI: Pricila Hooker is a 78 year old female former 10 pack year smoker, quitting in 1977 with PMH significant for morbid obesity, hypoxemic and hypercapnic respiratory failure (likely ALEXX/OHS), h/o endometrial cancer, lung nodules, DM, spinal stenosis, neuropathy, and COPD. She was previously diagnosed with endometrial cancer and follows with Dr. Branham. In October of 2023 she underwent biopsy of a nodule in the right lung that had positive update on PET. Biopsy positive for Adenocarcinoma and consistent with metastatic endometrial cancer. Started on Carboplatin alone. Had also previously had a hospitalization in August 2023 with acute respiratory failure in the setting of heart failure. Also had concern for ALEXX. Discharged home on supplemental O2. She later underwent 2 different sleep studies but was unable to sleep during both studies. She transferred pulmonary care to Dr. Nelson in November 2023 for convenience (previously following with Dr. Araujo in [place]). At that time, she reported exertional dyspnea and occasional wheezing. Started on Breo for known history of moderate obstruction. Since her last visit, she has been undergoing chemotherapy. Most recent chest CT on 04/10 shows enlargement of multiple pulmonary nodules. She is due to start a new chemo next week. From a respiratory perspective, she has been using Breo. Upon further discussion, she has been using the same inhaler every day since November (has poor vision and unable to read dose dial). Does not recall if her breathing symptoms improved at all after starting the inhaler. Continues to report exertional dyspnea and occasional wheezing with heavy exertion. Reports mobility is limited d/t multiple co-morbilities. Denies cough or dyspnea at rest. No recent fevers, chills, or night sweats. No unintended weight loss or lower extremity edema. No recent hospitalizations or ED visits or upper respiratory infections. Denies need for steroids/antibiotics since her last visit. Her sister accompanied her today and states they turned her O2 from 2 to 3L a few months ago after she had a bout of dizziness. Soon after, the dizziness resolved. They frequently check her SPO2 and is rarely below 90%. DME: [employer] 3 L 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 CHF (congestive heart failure) (HCC) Immunotherapy induced Diabetes mellitus without mention of complication Endometrial cancer (HCC) GERD (gastroesophageal reflux disease) Hemorrhoids Hypercholesteremia Hypertension Neuropathy Obesity Osteoarthritis of multiple joints Allergies: No Known Allergies Medication List Accurate as of April 14, 2024 11:45 AM. If you have any questions, ask your nurse or doctor. CONTINUE taking these medications acetaminophen 500 mg tablet Commonly known as: TYLENOL EXTRA STRENGTH Take 2 tablets by mouth every 6 hours as needed for pain. alcohol swabs Commonly known as: ALCOHOL PADS Test one time daily, Insulin Dep? No E11.9 DM 2 amitriptyline 50 mg tablet Commonly known as: ELAVIL Take 1 tablet by mouth daily at bedtime. aspirin 81 mg Cap atorvastatin 40 mg tablet Commonly known as: LIPITOR TAKE 1 TABLET BY MOUTH ONCE DAILY AT BEDTIME FOR CHOLESTEROL BLOOD GLUCOSE TEST test strip Generic drug: blood sugar diagnostic Test one time daily, Insulin Dep? No E11.9 DM 2 Blood Pressure Monitor Take your blood pressure everyday and keep a log carvedilol 3.125 mg tablet Commonly known as: COREG Take 2 tablets by mouth two times a day with meals. DULoxetine 60 mg capsule Commonly known as: CYMBALTA Take 1 capsule by mouth once daily enteric contrast (will be provided with radiology test) For CT ABD/PEL W IVCON Routine order Administer, As Directed One Time Only, via Oral, Rectal, both Oral and Rectal, Enteric Tube, Stoma or Indwelling Catheter, Enteric Contrast as designated per enteric contrast guidelines fluticasone-vilanterol 100-25 mcg/dose inhaler Commonly known as: BREO ELLIPTA Inhale 1 Inhalation as instructed once daily. furosemide 20 mg tablet Commonly known as: LASIX Take 1 tablet by mouth once daily. gabapentin 100 mg capsule Commonly known as: NEURONTIN Take 1 capsule by mouth two times a day for 180 days. glimepiride 4 mg tablet Commonly known as: AMARYL Take 1 tablet by mouth two times a day with meals. * iv contrast (will be provided with radiology test) CT Chest W -Inject, intravenously, once for 1 dose.No IV access, insert saline lock prior to the beginning of sedation, infusion, injection of imaging exam. Discontinue saline lock post exam. If Pt. has a central line or IVAD, may access for administration according to line specific nursing protocol. Once exam is complete flush line and de-access according to line specific nursing protocol in the CT contrast administration guidelines link. * iv contrast (will be provided with radiology test) CT ABD/PEL -Inject, intravenously, once for 1 dose.No IV access, insert saline lock prior to the beginning of sedation, infusion, injection of imaging exam. Discontinue saline lock post exam. If Pt. has a central line or IVAD, may access for administration according to line specific nursing protocol. Once exam is complete flush line and de-access according to line specific nursing protocol in the CT contrast administration guidelines link. Lancets Test one time daily, Insulin Dep? No E11.9 DM 2 lidocaine-prilocaine 2.5-2.5 % cream Commonly known as: EMLA Apply to affected area as needed. metFORMIN 500 mg tablet Commonly known as: GLUCOPHAGE Take 2 tablets by mouth two times a day with meals. . silver sulfADIAZINE 1 % cream Commonly known as: SILVADENE Apply to affected area once daily. SLOW-MAG 71.5 mg Tbec Generic drug: Magnesium Chloride Take 1 tablet by mouth twice daily. triamcinolone acetonide 0.1 % ointment Commonly known as: KeNALog Apply to affected area two times a day. TRULICITY 3 mg/0.5 mL pen injector Generic drug: dulaglutide Inject 3 mg subcutaneously one time a week. Patient Assistance Medication. valsartan 80 mg tablet Commonly known as: DIOVAN Take 1 tablet by mouth two times a day. * This list has 2 medication(s) that are the same as other medications prescribed for you. Read the directions carefully, and ask your doctor or other care provider to review them with you. DATA: I personally reviewed and analyzed all labs, radiographs and available pulmonary function testing PFT: 04/18/2024 CT Chest: 04/10/2024 IMPRESSION: Compared to 01/18/2024: 1. Interval enlargement of multiple metastatic pulmonary nodules. 2. Interval enlargement of a pleural-based metastatic lesion in the dependent RIGHT thorax. 3. Interval enlargement and increase in number of omental metastatic implants in the anterior LEFT abdomen. 4. Interval enlargement of a suspected local recurrence versus peritoneal implant of the LEFT vaginal cuff. 5. Unchanged subcapsular versus capsular metastatic lesion in the medial RIGHT hepatic lobe. 6. Cirrhosis. 7. Mild circumferential mural thickening of the mid to distal esophagus; correlate for symptoms of esophagitis. Printer Floor Covering Assistant: PSCChristopher Transcribe Date/Time: Apr 12 2024 2:00P Dictated by : CAMRON JIMENEZ MD This examination was interpreted and the report reviewed and electronically signed by: CAMRON JIMENEZ MD on Apr 12 2024 2:10PM EST Results-Findings * * *Final Report* * * DATE OF EXAM: Apr 10 2024 11:01AM [facility] [id number] - CT CHEST W IVCON / PROCEDURE REASON: multiple diagnoses * * * * Physician Interpretation * * * * EXAMINATION: CT CHEST WITH IV CONTRAST and CT ABDOMEN AND PELVIS WITH IV CONTRAST CLINICAL HISTORY: Endometrial carcinoma follow-up TECHNIQUE: CT of the chest from the thoracic inlet to the upper abdomen was performed following IV contrast. CT of the abdomen and pelvis was performed using standard technique, scanning from just above the dome of the diaphragm to the symphysis pubis. MQ: [id number] Contrast: Central IV: 100 ml of Omnipaque 350 Oral: 10 ml of Omni 240 10-25ml diluted with water CT Radiation dose: Integrated Dose-length product (DLP) for this visit = 1700 mGy*cm. CT Dose Reduction Employed: Automated exposure control(AEC) and iterative recon COMPARISON: 01/18/2024 RESULT: Lines, tubes, and devices: LEFT chest port catheter terminates in the RIGHT atrium. Lung parenchyma, pleura and airways: A pleural-based lesion in the dependent RIGHT thorax and series 9 image 319 measures 4.5 x 2.6 cm, remeasure the same plane on the comparison as 3.7 x 1.9 cm. There is adjacent extrapleural extension. Interval enlargement of multiple metastatic pulmonary nodules. For example a 12 x 8 mm nodule the middle lobe on series 10 image 100 is remeasured on the comparison as only 6 mm. Anterior RIGHT upper lobe nodule on series 10 image 44 measures 1.5 x 1.3 cm, remeasured on the comparison as 1.0 x 1.0 cm. Several additional smaller metastases have also increased in size in the interval. Mediastinum and imaged lower neck: Multiple nonenlarged calcified mediastinal lymph nodes suggestive of prior granulomatous infection. No enlarged lymph nodes in the chest. Coronary artery calcifications are present. Liver/Biliary: Nodular, cirrhotic liver. A subcapsular versus capsular lesion in the medial RIGHT hepatic lobe on series 8 image 38 measures 1.7 x 1.1 cm, unchanged remeasure the same plane on the comparison. Pancreas and Spleen: Normal. Kidneys and Adrenals: Small simple bilateral renal cysts. GI tract/Mesentery/Peritoneum: Mild circumferential mural thickening of the mid to distal esophagus. Omental metastatic implants in the anterior LEFT abdomen have slightly increased in size and number. For example a nodule on series 8 image 96 measures 1.6 x 1.0 cm, remeasured on the comparison as 1.3 x 0.6 cm. Retroperitoneum and Lymph Nodes: No lymphadenopathy. Vasculature: Moderate aortic and branch vessel atherosclerosis without aneurysm or dissection. Pelvis: A suspected local recurrence versus peritoneal implant of the LEFT vaginal cuff on series 8 image 131 measures 2.8 x 1.6 cm, remeasured on the comparison retrospectively as 1.9 x 1.1 cm. Bones/Soft Tissues: Unchanged alignment of compression fracture of the superior endplate of T11. No new or suspicious osseous lesions. Localizer images: No significant findings. Echo: 04/2023 CONCLUSIONS: - Technically difficult exam due to body habitus. - Exam indication: Baseline and serial evaluation in a patient undergoing therapy with cardiotoxic agents - The left ventricle is normal in size. There is mild concentric left ventricular hypertrophy. Left ventricular systolic function is mildly decreased. EF = 44 5% (2D biplane) Left ventricular diastolic function was not evaluated due to E/a fusion. -Global Strain -9.8% - The right ventricle is normal in size. Right ventricular systolic function is normal. - The visualized aorta is borderline dilated with a maximal dimension of 4.0 cm. - Exam was compared with the prior CC echocardiographic exam performed on 12/24/2022. No significant change. Labs: WBC (k/uL) Date Value 03/23/2024 4.79 03/28/2020 7.94 RBC (m/uL) Date Value 03/23/2024 2.84 03/28/2020 4.75 Hemoglobin (g/dL) Date Value 03/23/2024 9.3 03/28/2020 14.7 Hematocrit (%) Date Value 03/23/2024 28.8 03/28/2020 42.9 Platelet Count (k/uL) Date Value 03/23/2024 110 03/28/2020 215 MPV (fL) Date Value 03/23/2024 10.0 03/28/2020 10.0 Neut% (%) Date Value 03/28/2020 59.3 Neutrophils % (%) Date Value 03/23/2024 71.2 Eosin% (%) Date Value 03/28/2020 4.4 Eosinophils % (%) Date Value 03/23/2024 5.2 Baso% (%) Date Value 03/28/2020 0.8 Basophils % (%) Date Value 03/23/2024 0.6 Abs Neut (ANC) (k/uL) Date Value 03/28/2020 4.69 Abs Neut (k/uL) Date Value 03/23/2024 3.41 Abs [place] (k/uL) Date Value 03/23/2024 0.54 03/28/2020 0.58 Abs Eosin (k/uL) Date Value 03/23/2024 0.25 03/28/2020 0.35 Abs Baso (k/uL) Date Value 03/23/2024 0.03 03/28/2020 0.06 Review of Systems Constitutional: Negative for activity change, appetite change, fever and unexpected weight change. HENT: Negative for congestion, mouth sores, postnasal drip and sinus pressure. Respiratory: Positive for shortness of breath and wheezing. Negative for cough and chest tightness. Cardiovascular: Negative for chest pain, palpitations and leg swelling. Neurological: Negative for dizziness, light-headedness and headaches. BP (P) 112/60 Pulse 86 Resp 16 Ht 172 cm (5' 7.72") Wt 129.3 kg (285 lb) SpO2 100% BMI 43.69 kg/m Physical Exam Vitals reviewed. Constitutional: General: She is not in acute distress. Appearance: Normal appearance. She is obese. She is not ill-appearing. HENT: Head: Normocephalic. Nose: No rhinorrhea. Mouth/Throat: Mouth: Mucous membranes are moist. Pharynx: No oropharyngeal exudate. Cardiovascular: Rate and Rhythm: Normal rate and regular rhythm. Heart sounds: Normal heart sounds. Pulmonary: Effort: Pulmonary effort is normal. No respiratory distress. Breath sounds: No wheezing or rhonchi. Musculoskeletal: Right lower leg: No edema. Left lower leg: No edema. Lymphadenopathy: Cervical: No cervical adenopathy. Skin: General: Skin is warm and dry. Capillary Refill: Capillary refill takes less than 2 seconds. Neurological: General: No focal deficit present. Mental Status: She is alert. ASSESSMENT/PLAN: 1. Moderate COPD (chronic obstructive pulmonary disease) (HCC) - ICD9: 496, ICD10: J44.9 (primary diagnosis) - continues with exertional dyspnea and wheezing. - updated PFT today. - provided instruction with patient and sister on proper use of Breo. Instructed that each Breo inhaler is 30 day supply. - continue with Fluticasone-vilanterol (Breo) 100-25 MCG 1 puff once daily. Instructed to rinse mouth after every use. 2. 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) - ICD9: 197.0, ICD10: C78.01, C78.02 - most recent chest CT on 04/10 with enlargement of metastatic lung nodules - active treatment with hem/onc, due to start Gemcitabine next week 3. Chronic hypoxemic respiratory failure (HCC) - ICD9: 518.83, 799.02, ICD10: J96.11 - dx in August 2023 while hospitalized. - recently self increased to 3L continuously. - will obtain nocturnal oximetry - continue self monitoring intermittently - OXIMETRY - NOCTURNAL F/u 3 months Portions of this documentation were copied and pasted from previous office visit notes in order to provide a cohesive continuity of the history. The note has been reviewed and edited and updated as necessary. Tatyana Rahman APRN.SOLO I spent a total of 34 minutes on the date of the service which included preparing to see the patient, [id number] patient care, completing clinical documentation, performing a medically appropriate examination, counseling and educating the patient/family/caregiver, and ordering medications, tests, or procedures. documented in this encounter [facility] 04-19-2024 Note [facility] 04-19-2024 Note [facility] 04-19-2024 History of Present illness Narrative PULM FUNCTION: Provider: Pamela Nelson MD Assisting Tech: Maddy Hale RPFT Spirometry w/BD: 1 documented in this encounter [facility] 04-17-2024 Telephone encounter Note Spoke with pt and this has been scheduled as directed. Ronit Ramirez [facility] 04-17-2024 Miscellaneous Notes Spoke with pt and this has been scheduled as directed. Ronit Ramirez Is been about a year since her last echocardiogram. Please schedule for repeat echocardiogram for surveillance purposes. Nora Branham DO documented in this encounter [facility] 04-17-2024 Telephone encounter Note 2 cycles entered Start email sent [facility] Work Phone: 04-17-2024 Miscellaneous Notes 2 cycles entered Start email sent Begin Gemcitabine D1 and D8 every 3 weeks start when able. CBC/CMP straight back for cycle 1. D8 CBC. OV/CBC/CMP for cycle 2. Chemo education. -04/21 Per patient No Mondays documented in this encounter [facility] 04-14-2024 Telephone encounter Note Is been about a year since her last echocardiogram. Please schedule for repeat echocardiogram for surveillance purposes. Nora Branham DO [facility] 04-14-2024 Telephone encounter Note Patient was given a folder with with chemo information for Gemzar along with office contact information/after hours number, when to call sheet and helpful hints sheet. Patient aware a nurse will review on scheduled appointment date. Alexia Chatman RN [facility] Work Phone: 04-14-2024 Miscellaneous Notes Patient was given a folder with with chemo information for Gemzar along with office contact information/after hours number, when to call sheet and helpful hints sheet. Patient aware a nurse will review on scheduled appointment date. Alexia Chatman RN documented in this encounter [facility] 04-14-2024 Telephone encounter Note Begin Gemcitabine D1 and D8 every 3 weeks start when able. CBC/CMP straight back for cycle 1. D8 CBC. OV/CBC/CMP for cycle 2. Chemo education. 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 HPI: The patient is a 78-year-old female with a past medical history significant for hypertension, hyperlipidemia, GERD, type 2 diabetes (diagnosed about age 60; neuropathy), total knee replacement, former smoker and recent diagnosis of endometrial cancer. SURGERY & DATE: 07/24/2022 - Exam under anesthesia, total laparoscopic hysterectomy, bilateral salpingo-oophorectomy, sentinel lymph node mapping with excision of bilateral pelvic sentinel lymph nodes, and extensive lysis of adhesions. PATHOLOGY: A. Odum lymph node, right, biopsy: - Isolated tumor cells involving 1 of 2 lymph nodes; see comment. B. 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 C. Uterus with cervix, right and left fallopian tubes, and ovaries, hysterectomy and bilateral salpingo-oophorectomy: - Cervix: No significant pathologic abnormality. - Endomyometrium: Endometrial endometrioid carcinoma with squamous differentiation, FIGO grade 2, invading outer myometrium (18 mm out of 19 mm, 95%) and showing extensive/multifocal lymphovascular invasion and the microcystic, elongated, and fragmented (MELF) pattern of invasion; see comment and synoptic report. - Serosa: No significant pathologic abnormality. - Bilateral ovaries: Adhesions. - Right fallopian tube: Hematosalpinx, no definitive carcinoma. - Left fallopian tube: Metastatic carcinoma. Mismatch repair (MMR) interpretation: Deficient mismatch repair (dMMR) Results Mismatch Repair Protein Immunohistochemistry Results: MLH1: Loss of Nuclear Expression (subclonal/focal loss) PMS2: Loss of Nuclear Expression (subclonal/focal loss) MSH2: Normal/Intact Nuclear Expression MSH6: Normal/Intact Nuclear Expression IMAGING: CT ABD/PELVIS: 06/16/2022 IMPRESSION: 1. Findings compatible with cystitis. 2. Approximately 8.5 cm tubular/serpiginous cystic lesion in the right adnexal region suspect for hydrosalpinx though right ovarian cystic lesion not excluded with certainty. Mild infiltration of the surrounding fat raises suspicion for the possibility of superinfection. A few small bowel loops in the pelvis appear tethered around this right adnexal cystic lesion and a short segment of sigmoid colon abuts the posterior aspect of this right adnexal lesion. 3. Small volume pelvic free fluid. 4. Heterogeneous appearance of the uterus potentially related to fibroids. Further evaluation with dedicated pelvic ultrasound would be of value. CXR: 07/22/2022 IMPRESSION: Left basilar mild atelectasis. TUMOR BOARD: Management Options: -Recommend adjuvant treatment with systemic therapy, carbo/taxol +/- pembrolizumab -Referral to genetics Per initial consultation here: No vaginal discharge or bleeding. Bowels moving regularly. Good appetite. Pain is gone. Subjectively voiding to completion. Fingertip and toes numb. Had it approximately 3 years. Orthostasis if stands quickly. Balance has been "off" for about 6 months. Used to come in from [employer]. Uses cane and walker in the home. Lives in basement of sister's house. Capable of all ADLs independently. Uses shower chair. She and sister share cooking. Drives. Low back pain can limit her walking--symptoms are consistent with spinal stenosis. Current therapy: 1) Paclitaxel and carboplatin and pembrolizumab. First 2 cycles without pembrolizumab. Had EGD. Results noted. ?Gastroparesis. Was admitted to [facility] 01/24 ago for urosepsis. Admitted 2 days. Glimepiride was held. Completed antibiotic Wednesday. Had no urinary symptoms. Family found her at the table acting disoriented. Previously saw carrier associate at [facility] for reduced EF. Started on Jaurdiance. Presents for ongoing oncologic management. OV 11/2023: She was admitted in August of her hypoxemic/hypercapnic respiratory failure. Was in CHF. Continues living in a walkout basement and her sisters home. She has frequent orthostasis. Not able to do much in the kitchen so her sister has arranged for Meals on Wheels. However she can walk fairly well around the house with her walker. Neuropathy symptoms are no worse. Fingertips are involved. She does not cook for fear of burning herself. Numbness in the feet comes to just above the ankles. No chest pain. No palpitation or sensation of tachycardia. Has oxygen since the time of discharge from [facility]. Uses it at night all the time. Not so much during the day unless she is walking around the house. Appetite has been normal. No abdominal pain. Bowels have been working regularly with formed stools. She has occasional diarrhea. Not daily. Able to void her bladder well. Presents for ongoing oncologic management. OV 03/15/2024: Completed radiation (03/10/2024) treatment to pleural-based inferior right lung nodule that had increased in size on CT 01/18/2024. Other nodules had remained stable. Head URI symptoms recently with productive cough, but symptoms improving. Back is doing fine. Occasional pain if up and around. Hasn't been walking in the home much--uses walker. Orthostasis if stands quickly or on occasion after a shower. Cannot climb stairs at this point. Presents for ongoing oncologic management. Interim history: RUQ pain intermittently. Exacerbated with deep breath. Tylenol relieves it. No other subjective change. PMH, medications and allergies personally reviewed by me today. Any changes documented in appropriate section. PHYSICAL EXAM: Vitals: Blood pressure 119/68, pulse 84, temperature 36.3 C (97.3 F), weight 130.2 kg (287 lb 0.6 oz), SpO2 94%. Well-appearing and in no acute distress. EYES: Sclerae are anicteric bilaterally. LYMPHATIC: There is no palpable cervical or supraclavicular adenopathy. RESPIRATORY: Inspiratory breath sounds are of diminished intensity in all thompson. CARDIOVASCULAR: Rhythm is regular. ABDOMEN: The abdomen is nondistended. Tender without mass right upper quadrant. 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 -ECOG PS is 3. -Significant comorbid conditions including type 2 diabetes with pre-existing sensory neuropathy. She had impaired gait and mobility from spinal stenosis as well. Nonetheless she stood to benefit significantly from adjuvant therapy with carboplatin, paclitaxel and pembrolizumab based on the reported results of the NRG-GY018 trial. -Pembrolizumab was added with cycle #3. Received 5 cycles. Therapy held following due to worsening neuropathy and general decline. -Diagnosed with immunotherapy induced cardiomyopathy. -Neuropathy stable. -Reviewed CT scan findings. Progressive disease. -Recommended changing therapy to single agent gemcitabine. Also discussed HER2 testing. If indicated she may be a candidate for Enhertu despite mild cardiomyopathy. -I discussed the rationale, logistics, potential risks (including but not limited to fatigue, cytopenias, fever, rash, HUS, pneumonitis, nausea vomiting, diarrhea, infections and the small potential for as a consequence of severe toxicity/complications of therapy), benefits and alternatives, as well as the personnel involved in the administration of gemcitabine. I answered her and her sisters questions in detail and she verbalized understanding and agreed with the recommended therapy. Please see the electronic consent document for details of doses and schedule. Plan: -Begin gemcitabine next week on a day 1 and 8 schedule with cycles every 21 days. -Orders filed in [place]. -CBC/CMP/straight-backed A1. -CBC on day 8. -CT scan following 2 cycles. -IHC HER2 testing on most recent biopsy specimen of lung metastasis. -Has not followed up with cardiology. Needs updated echocardiogram. Portions of this documentation were copied and pasted from my previous office visit note dated 03/15/2024 in order to provide a cohesive continuity of the history. The note has been reviewed and edited and updated as necessary. Nora Branham DO Est. Pt, discuss recent CT results and labs. Mary Romero LPN documented in this encounter [facility] 04-14-2024 Note HNO ID: [id number] Author: MARY ROMERO LPN Service: ? Author Type: LICENSED NURSE Type: Progress Notes Filed: 04/14/2024 16:46 Note Text: Est. Pt, discuss recent CT results and labs. Mary Romero LPN [facility] 04-10-2024 History of Present illness Narrative Radiology Service Progress Note PATIENT NAME: Pricila Hooker DATE OF SERVICE: April 10, 2024 TIME: 2:48 PM PATIENT IDENTITY VERIFICATION COMPLETED USING TWO (2) IDENTIFIERS: Name and Date of confirmed by patient verbally. FALL SCREENING: Has the patient had 2 falls in the last year or 1 fall with injury or currently using an Ambulatory Assistive Device (Walker, Cane, Wheelchair, Crutches, etc.)? No PATIENT GENDER DATA: Assigned female at . status: : No status: NO. PATIENT RELEVANT IMPLANT DATA REVIEWED: Yes PATIENT PRESENTS WITH AN IMPLANTABLE OR ATTACHED KENNEL STAFF MEMBER: No RADIOLOGY DEPARTMENT: CT; Exam(s) Completed: Chest Abdomen Pelvis PERIPHERAL IV DATA: power port accessed by [employer] SIGNED BY: RT Adi(R) April 10, 2024 2:48 PM documented in this encounter [facility] 04-10-2024 Note [facility] 04-07-2024 Note [facility] 04-07-2024 History of Present illness Narrative AMBULATORY TELEPHONE VISIT Pricila oHoker has consented to this telephone encounter. Persons Present: patient Chief Complaint/Reason: Four week follow-up after SBRT. HPI: Metastatic endometrial adenocarcinoma with solitary progression of right lung nodule on Carboplatin s/p SBRT finished on 03/10/24. She is doing well without any specific new complaints. She denies any skin changes. She denies any chest pain. Data Reviewed: None. Assessment: Clinically stable without any significant acute radiation treatment complications. Plan: She is back on chemotherapy now. She is schedule to have restaging CT scans next week and then to see Dr. Branham. Total Time Spent: 10 minutes Patel Escalera MD documented in this encounter [facility] 04-03-2024 Telephone encounter Note Returned call to sister. per last OV with Pulm, started pt on Breo Ellipta, F/u in 3 mo and update a PFT. Sister aware, has concern of cost of copay with visit. Will have our PSR send the FC info to call pt sister. Uma Pinto LPN [facility] 04-03-2024 Miscellaneous Notes Returned call to sister. per last OV with Pulm, started pt on Breo Ellipta, F/u in 3 mo and update a PFT. Sister aware, has concern of cost of copay with visit. Will have our PSR send the FC info to call pt sister. Uma Pinto LPN Sister Milagro called asking if Dr. Branham thinks that 2/4 appointments with Pulmonary are needed. Please advise Milagro documented in this encounter [facility] 04-03-2024 Telephone encounter Note Sister Milagro called asking if Dr. Branham thinks that 2/4 appointments with Pulmonary are needed. Please advise Milagro [facility] Work Phone: 03-29-2024 Telephone encounter Note Physician: Farshad Marie Call from patient requesting refill. Please E-Scribe Last OV: 10/13/23 with Farshad Marie Future OV: Not Scheduled Requested Prescriptions Pending Prescriptions Disp Refills carvedilol (COREG) 3.125 mg tablet 180 tablet 3 Sig: Take 2 tablets by mouth two times a day with meals. Pharmacy Name: [facility] Phone #: [phone] Symone De Luna [facility] 03-29-2024 Miscellaneous Notes Physician: Farshad Marie Call from patient requesting refill. Please E-Scribe Last OV: 10/13/23 with Farshad Marie Future OV: Not Scheduled Requested Prescriptions Pending Prescriptions Disp Refills carvedilol (COREG) 3.125 mg tablet 180 tablet 3 Sig: Take 2 tablets by mouth two times a day with meals. [facility] Phone #: [phone] Symone De Luna documented in this encounter [facility] 03-15-2024 Telephone encounter Note completed [facility] Work Phone: 03-15-2024 Miscellaneous Notes completed Treatment tomorrow. CT C/A/P the week of 04/10/2024- then OV with Dr. Branham, then next treatment. OV/labs/treatment for 04/05 and 04/06 will need moved to after CT's and OV the week of 04/10/2024. Need to restart the documented in this encounter [facility] 03-15-2024 Telephone encounter Note Treatment tomorrow. CT C/A/P the week of 04/10/2024- then OV with Dr. Branham, then next treatment. OV/labs/treatment for 04/05 and 04/06 will need moved to after CT's and OV the week of 04/10/2024. 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 HPI: The patient is a 78-year-old female with a past medical history significant for hypertension, hyperlipidemia, GERD, type 2 diabetes (diagnosed about age 60; neuropathy), total knee replacement, former smoker and recent diagnosis of endometrial cancer. SURGERY & DATE: 07/24/2022 - Exam under anesthesia, total laparoscopic hysterectomy, bilateral salpingo-oophorectomy, sentinel lymph node mapping with excision of bilateral pelvic sentinel lymph nodes, and extensive lysis of adhesions. PATHOLOGY: A. Odum lymph node, right, biopsy: - Isolated tumor cells involving 1 of 2 lymph nodes; see comment. B. 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 C. Uterus with cervix, right and left fallopian tubes, and ovaries, hysterectomy and bilateral salpingo-oophorectomy: - Cervix: No significant pathologic abnormality. - Endomyometrium: Endometrial endometrioid carcinoma with squamous differentiation, FIGO grade 2, invading outer myometrium (18 mm out of 19 mm, 95%) and showing extensive/multifocal lymphovascular invasion and the microcystic, elongated, and fragmented (MELF) pattern of invasion; see comment and synoptic report. - Serosa: No significant pathologic abnormality. - Bilateral ovaries: Adhesions. - Right fallopian tube: Hematosalpinx, no definitive carcinoma. - Left fallopian tube: Metastatic carcinoma. Mismatch repair (MMR) interpretation: Deficient mismatch repair (dMMR) Results Mismatch Repair Protein Immunohistochemistry Results: MLH1: Loss of Nuclear Expression (subclonal/focal loss) PMS2: Loss of Nuclear Expression (subclonal/focal loss) MSH2: Normal/Intact Nuclear Expression MSH6: Normal/Intact Nuclear Expression IMAGING: CT ABD/PELVIS: 06/16/2022 IMPRESSION: 1. Findings compatible with cystitis. 2. Approximately 8.5 cm tubular/serpiginous cystic lesion in the right adnexal region suspect for hydrosalpinx though right ovarian cystic lesion not excluded with certainty. Mild infiltration of the surrounding fat raises suspicion for the possibility of superinfection. A few small bowel loops in the pelvis appear tethered around this right adnexal cystic lesion and a short segment of sigmoid colon abuts the posterior aspect of this right adnexal lesion. 3. Small volume pelvic free fluid. 4. Heterogeneous appearance of the uterus potentially related to fibroids. Further evaluation with dedicated pelvic ultrasound would be of value. CXR: 07/22/2022 IMPRESSION: Left basilar mild atelectasis. TUMOR BOARD: Management Options: -Recommend adjuvant treatment with systemic therapy, carbo/taxol +/- pembrolizumab -Referral to genetics Per initial consultation here: No vaginal discharge or bleeding. Bowels moving regularly. Good appetite. Pain is gone. Subjectively voiding to completion. Fingertip and toes numb. Had it approximately 3 years. Orthostasis if stands quickly. Balance has been "off" for about 6 months. Used WC to come in from [employer]. Uses cane and walker in the home. Lives in basement of sister's house. Capable of all ADLs independently. Uses shower chair. She and sister share cooking. Drives. Low back pain can limit her walking--symptoms are consistent with spinal stenosis. Current therapy: 1) Paclitaxel and carboplatin and pembrolizumab. First 2 cycles without pembrolizumab. Had EGD. Results noted. ?Gastroparesis. Was admitted to [facility] 01/24 ago for urosepsis. Admitted 2 days. Glimepiride was held. Completed antibiotic Wednesday. Had no urinary symptoms. Family found her at the table acting disoriented. Previously saw carrier associate at [facility] for reduced EF. Started on Jaurdiance. Presents for ongoing oncologic management. OV 11/2023: She was admitted in August of her hypoxemic/hypercapnic respiratory failure. Was in CHF. Continues living in a walkout basement and her sisters home. She has frequent orthostasis. Not able to do much in the kitchen so her sister has arranged for Meals on Wheels. However she can walk fairly well around the house with her walker. Neuropathy symptoms are no worse. Fingertips are involved. She does not cook for fear of burning herself. Numbness in the feet comes to just above the ankles. No chest pain. No palpitation or sensation of tachycardia. Has oxygen since the time of discharge from [facility]. Uses it at night all the time. Not so much during the day unless she is walking around the house. Appetite has been normal. No abdominal pain. Bowels have been working regularly with formed stools. She has occasional diarrhea. Not daily. Able to void her bladder well. Presents for ongoing oncologic management. Interim history: Completed radiation (03/10/2024) treatment to pleural-based inferior right lung nodule that had increased in size on CT 01/18/2024. Other nodules had remained stable. Head URI symptoms recently with productive cough, but symptoms improving. Back is doing fine. Occasional pain if up and around. Hasn't been walking in the home much--uses walker. Orthostasis if stands quickly or on occasion after a shower. Cannot climb stairs at this point. PMH, medications and allergies personally reviewed by me today. Any changes documented in appropriate section. PHYSICAL EXAM: Vitals: Blood pressure 111/71, pulse 87, temperature 36 C (96.8 F), temperature source Temporal, weight 129.3 kg (285 lb), SpO2 95%. Well-appearing and in no acute distress. EYES: Sclerae are anicteric bilaterally. LYMPHATIC: There is no palpable cervical or supraclavicular adenopathy. RESPIRATORY: Inspiratory breath sounds are of diminished intensity in all thompson. CARDIOVASCULAR: Rhythm is regular. ABDOMEN: The abdomen is nondistended. 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 -ECOG PS is 3. -Significant comorbid conditions including type 2 diabetes with pre-existing sensory neuropathy. She had impaired gait and mobility from spinal stenosis as well. Nonetheless she stood to benefit significantly from adjuvant therapy with carboplatin, paclitaxel and pembrolizumab based on the reported results of the NRG-GY018 trial. -Pembrolizumab was added with cycle #3. Received 5 cycles. Therapy held following due to worsening neuropathy and general decline. -Diagnosed with immunotherapy induced cardiomyopathy. Frequent orthostasis. -Neuropathy stable. -Reviewed CBC. Improving Hgb. -Discussed plan to resume carboplatin tomorrow. Will dose reduce based on severe thrombocytopenia that she previously had with an AUC of 5. She requires ongoing aspirin treatment with her cardiovascular history. Plan: -Resume carboplatin tomorrow with dose reduction. -CT of chest, abdomen pelvis in April. -Follow-up with cardiology. Portions of this documentation were copied and pasted from my previous office visit note dated in order to provide a cohesive continuity of the history. The note has been reviewed and edited and updated as necessary. Nora Branham DO documented in this encounter [facility] 03-13-2024 Telephone encounter Note The following approved medication requests have been transmitted electronically. Requested Prescriptions Pending Prescriptions Disp Refills gabapentin (NEURONTIN) 100 mg capsule 180 capsule 1 Sig: Take 1 capsule by mouth two times a day for 180 days. Supa Matute APRN.SOLO [facility] 03-13-2024 Miscellaneous Notes The following approved medication requests have been transmitted electronically. Requested Prescriptions Pending Prescriptions Disp Refills gabapentin (NEURONTIN) 100 mg capsule 180 capsule 1 Sig: Take 1 capsule by mouth two times a day for 180 days. Supa Matute APRN.DIRECTOR MARKETING documented in this encounter [facility] 03-10-2024 Note [facility] 03-10-2024 History of Present illness Narrative Written discharge instructions given and reviewed with patient and family. Patient verbalizes understanding. Encouraged to call with any questions or concerns. Instruction for 4 week phone call follow up appointment given by Dr. Escalera. documented in this encounter [facility] 03-10-2024 History of Present illness Narrative PRICILA HOOKER [id number] : 1945 03/10/2024 [facility] Department of Radiation Oncology RADIATION ONCOLOGY - COMPLETION NOTE DATE OF SIMULATION: 02/15/24 DATES OF TREATMENT: 02/29/24 - 03/10/24 UNIT: [id number] AREA TREATED: Right lower lung DISEASE: Metastatic endometrial adenocarcinoma with solitary progression of right lung nodule on Carboplatin. DELIVERED DOSE: 5000 cGy in 5 fractions treating to the 73.9% isodose line with 6 MV FFF and 2 thompson. ELAPSED TIME: 10 days. TOLERANCE/ RESPONSE: She is doing well without any specific new complaints. REMARKS: She tolerated radiation treatment well overall. Four week follow-up with me. Staff Physician PATEL ESCALERA M.D. / 59:26 AM Electronically Signed cc: Vinh Van [address] [place] [address] Nora Branham [address] [facility] [id number] documented in this encounter [facility] 03-10-2024 Note [facility] 03-08-2024 Note [facility] 03-08-2024 History of Present illness Narrative Radiation Therapy - Nursing Note (OTV) PATIENT NAME: Pricila Hooker PATIENT March 08, 2024 [facility] FACILITY/LOCATION: [facility] NOTE TYPE: CHEST Subjective Data some pain off and on on right side not new Additional Data Do you want to see a Office Support Clerk? No Status: Post-menopausal. Stress Scale: On a scale of 0 to 10, what number best describes how much distress you have experienced in the past week?(0 being no distress and 10 being extreme distress) 0 Social work notified: Pt denied need to see adoption social worker at this time. Nursing Assessment Fatigue: increased fatigue over baseline but not altering normal activities Appetite: varies from good to fair Nutritional Intake: Regular oral intake. Weight Gain/Loss: Not applicable Ambulatory weight history: Last 6 Encounter Wt Readings: Date: Wt: 02/09/2024 131.5 kg (290 lb) 02/02/2024 133.4 kg (294 lb) 02/02/2024 133.4 kg (294 lb) 01/13/2024 132 kg (291 lb) 01/05/2024 130.9 kg (288 lb 8 oz) 12/13/2023 131.1 kg (289 lb) Nausea:None Vomiting: None Bowel Function: normal bowel movements Erythema/Hyperpigmentation:none Desquamation:none Rash:none Skin Care: Aquaphor Skin Sensation: Within Normal Limits Focused Assessment CHEST: Dysphagia: Mild. Pain with swallowing: No. Shortness of breath: Mild. Cough: Moderate. feels she has a cold right now so cough has been worse but is getting better SIGNED by: Lexie Hadley RN Radiation Oncology - On Treatment Review (OTR) Note PATIENT NAME: Pricila Hooker PATIENT DIAGNOSIS: Metastatic endometrial adenocarcinoma with solitary progression of right lung nodule on Carboplatin. COURSE: SBRT (stereotactic body radiotherapy) AREA TREATED: Right lung CURRENT DOSE: 4000 cGy in 4 fx PLANNED DOSE: 5000 cGy in 5 fx Status: Post-menopausal SUBJECTIVE: She is doing well without any specific new complaints. EXAM: KPS: 100 General Appearance: Alert and oriented. No acute distress. IMAGING/LAB RESULTS: None Treatment chart checked: Yes Patient treatment site reviewed and verified:Yes CBCTs reviewed and current:Yes Medications started: None ASSESSMENT/PLAN: Clinically stable. No signs of toxicity. Continue radiation treatment as planned. Patel Escalera MD documented in this encounter [facility] 03-08-2024 Note [facility] 02-21-2024 Telephone encounter Note Patient's appointments (including treatment 02/23) were to be cancelled until she completes radiation. Schedule updated and is now correct. Patient's daughter is aware. Vicky Andino LPN [facility] 02-21-2024 Miscellaneous Notes Patient's appointments (including treatment 02/23) were to be cancelled until she completes radiation. Schedule updated and is now correct. Patient's daughter is aware. Vicky Andino LPN Per [employer] Message, patient is cancelling Lab & OV today. Please advise if patient can be straight back for treatment. Left message for patient to return stanley. When she calls, please ascertain if she is ok and need to reschedule. Roseann Ignacio documented in this encounter [facility] 02-21-2024 Telephone encounter Note Per MyChart Message, patient is cancelling Lab & OV today. Please advise if patient can be straight back for treatment. Left message for patient to return stanley. When she calls, please ascertain if she is ok and need to reschedule. Roseann Ignacio [facility] 02-15-2024 Note [facility] 02-15-2024 History of Present illness Narrative Radiation Therapy - Patient Education Note PATIENT NAME: Pricila Hooker PATIENT February 15, 2024 [facility] FACILITY[facility]LOCATION: [facility] READINESS TO LEARN Cognitive Ability: Alert and oriented Motivation to learn: Eager Family Support: High - Very involved in pt care Instruction provide to: Patient and Family member Patient learns best by: Individual Instruction Written Instruction - Hand-outs Verbal Instruction Factors effecting learning: None Physical limitations effecting learning: None LEARNING RESPONSE Diagnosis: Pt simulated today for radiation therapy to right lung. Education Topic/Teaching Points: Radiation therapy, Side effects, OTV, and Transportation: Method of instruction: Teach Back skin care Individual instruction Written instruction/Handouts Verbal instruction Patient /Family response: Patient and family verbalized understanding of radiation treatments, side effects, OTV, and transportation. Follow-up plan: Complete - No need for follow-up Reinforce - Repeat previous content Contact information given. Supplemental material: Informational handouts on Esophagitis/Mucositis, Fatigue, and Skin changes. Referral (recommendation): None, Pt denied need for social work, van service, and service center manager. Patient has an Onbody or Implanted device: No Signed by: Lexie Hadley RN documented in this encounter [facility] 02-15-2024 History of Present illness Narrative PRICILA HOOKER [id number] 02/15/2024 [facility] Department of Radiation Oncology [facility] RADIATION ONCOLOGY SIMULATION NOTE DATE OF SIMULATION: 02/15/2024 MACHINE: [employer] Movement Capture Definition CT Simulator Diagnosis: Metastatic endometrial adenocarcinoma with solitary progression of right lung nodule on Carboplatin. AREA:Rt lower lung PATIENT POSITION: Supine. CONTRAST: None PROTOCOL: None BLOCKING: Custom blocking to be determined at treatment planning. FIXATION DEVICE: In order to achieve accurate and reproducible treatments, the patient is to be immobilized with SBRT Civco board, compression belt and vac bag. PROCEDURE: A time-out was conducted and recorded by the therapist. Patient was simulated on the CT scanner for external beam radiation therapy. Treatment site was marked by the simulation therapist. ASSESSMENT/PLAN: Patient tolerated simulation procedure well. Treatments will be initiated after treatment planning. The patient is scheduled for a verification simulation on the treatment machine to ensure proper set-up and field arrangement is correct prior to the first treatment of primary and boost thompson if applicable. Electronically Signed Patel Escalera M.D./shannan 43:49 PM documented in this encounter [facility] 02-15-2024 History of Present illness Narrative PRICILA HOOKER [id number] 02/15/2024 [facility] Department of Radiation Oncology Treatment Planning Note For reasons stated in the consult note, Pricila Hooker is a candidate for radiation therapy. Based on review and interpretation of the relevant diagnostic studies together with the exam findings, Pricila Hooker was simulated on 02/15/2024 at which time the target volume and/or requisite thompson were delineated, as indicated in the simulation note, to be treated according to the prescription. An ITV was created from all the phases of respiratory motion captured by the 4DCT image sets. Motion management allowed for design of patient specific planning target volume and reduced the radiation exposure to normal tissues. The treatment target and organs at risk were contoured on the simulation scan. Special consideration to these and other structures was given in light of the potential for increased toxicities of stereotactic body radiation therapy (SBRT). After reviewing multiple treatment plans with dosimetry, the best plan was approved to deliver the prescribed course of radiation to the target area using inverse planning to allow for the best isodose distribution, treating to the 73.9% isodose line with 6 MV FFF and 2 thompson. Custom MLC and asym jaws for IMRT were the treatment devices used to shape/modify the beams. Limiting dose to normal tissue was confirmed upon review of the calculated dose volume histogram. IMRT planning was used because it best met the dose/volume constraints for the organs at risk for this patient, better than what could be achieved using conventional or 3D planning. The specific dose requirements for the PTV, organs at risk and dose-volume histograms are contained in this treatment plan and/or elsewhere in the medical record. A completed summary of this plan dated 02/18/2024 incorporated herein by reference includes dose, beam arrangements, energy, blocking, isodose distribution, and/or ports and DVH. Electronically Signed Patel Escalera M.D. 41:54 PM documented in this encounter [facility] 02-15-2024 Note [facility] 02-15-2024 Note [facility] 02-09-2024 Note [facility] 02-09-2024 History of Present illness Narrative Radiation Oncology - New Patient/Consult Note PATIENT NAME: Pricila Hooker PATIENT REQUESTING PROVIDER: Dr. Nora Branham DIAGNOSIS: Metastatic endometrial adenocarcinoma with solitary progression of right lung nodule on Carboplatin. HPI: 78 year old female who presents with above diagnosis, for an opinion regarding the role of radiation therapy in the management of the patient's disease. Final recommendations will be communicated back to the requesting physician by way of the shared medical record, or letter to requesting physician via US mail. 78 year old woman with history of FIGO stage IIIC1, grade 2, MMR-deficient endometrioid endometrial adenocarcinoma in 2022 treated with TLH-BSO with bilateral SLNB on 07/24/2022. She underwent systemic therapy with 4 cycles of carbo/taxol/pembrolizumab followed by vaginal cuff brachytherapy under the care of Dr. Rosanne Díaz. She had 21 Gy in 3 fractions with HDR from 01/19/2023 to 01/28/2023. Surveillance CT chest on 08/16/23 showed new bilateral pulmonary nodules likely due to metastatic disease. There was small left pleural effusion. PET/CT scan on 11/09/23 showed FDG avid anterior right upper lobe pulmonary nodule. Other, smaller bilateral pulmonary nodules are below PET resolution, presumed metastatic. There was FDG avid pleural-based metastatic nodule in the posterior right lower lobe. Small right pleural effusion with mild uptake, presumed malignant. Scattered FDG avid omental nodularity and FDG avid nodularity along the left pelvic peritoneal reflection, compatible with recurrent/metastatic disease. FDG avid subtle hypoattenuating lesion in the posterior right hepatic lobe, presumed metastasis. Focal uptake localizing to asymmetric prominence of the right psoas at the level of L1-L2, presumed intramuscular metastatic deposit. Biopsy of the right lung lesion on 11/18/23 showed adenocarcinoma and IHC is consistent with a metastasis from an endometrial primary. She was started on Carboplatin. CT C/A/P on 01/21/24 showed stable disease except for the pleural based inferior right lung nodule that increased in size now measuring 3.4 x 2.1 cm. Previously 2.3 x 1.3 cm. ALLERGIES No Known Allergies Current Outpatient Medications on File Prior to Visit Medication Sig DULoxetine (CYMBALTA) 60 mg capsule Take 1 capsule by mouth once daily amitriptyline (ELAVIL) 50 mg tablet Take 1 tablet by mouth daily at bedtime. triamcinolone acetonide (KENALOG) 0.1 % ointment Apply to affected area two times a day. gabapentin (NEURONTIN) 100 mg capsule Take 1 capsule by mouth two times a day for 180 days. carvedilol (COREG) 3.125 mg tablet Take 2 tablets by mouth two times a day with meals. (Patient taking differently: Take 6.25 mg by mouth two times a day with meals. Hold if SBP <100) glimepiride (AMARYL) 4 mg tablet Take 1 tablet by mouth two times a day with meals. atorvastatin (LIPITOR) 40 mg tablet TAKE 1 TABLET BY MOUTH ONCE DAILY AT BEDTIME FOR CHOLESTEROL valsartan (DIOVAN) 80 mg tablet Take 1 tablet by mouth two times a day. metFORMIN (GLUCOPHAGE) 500 mg tablet Take 2 tablets by mouth two times a day with meals. . aspirin 81 mg cap Take 81 mg by mouth once daily. silver sulfADIAZINE (SILVADENE) 1 % cream Apply to affected area once daily. Magnesium Chloride (SLOW-MAG) 71.5 mg TbEC Take 1 tablet by mouth twice daily. lidocaine-prilocaine (EMLA) 2.5-2.5 % cream Apply to affected area as needed. acetaminophen (TYLENOL EXTRA STRENGTH) 500 mg tablet Take 2 tablets by mouth every 6 hours as needed for pain. dulaglutide (TRULICITY) 3 mg/0.5 mL pen injector Inject 3 mg subcutaneously one time a week. Patient Assistance Medication. fluticasone-vilanterol (BREO ELLIPTA) 100-25 mcg/dose inhaler Inhale 1 Inhalation as instructed once daily. furosemide (LASIX) 20 mg tablet Take 1 tablet by mouth once daily. (Patient not taking: Reported on 12/21/2023) Blood Pressure Monitor Take your blood pressure everyday and keep a log Lancets lancets Test one time daily, Insulin Dep? No E11.9 DM 2 alcohol swabs (ALCOHOL PADS) Test one time daily, Insulin Dep? No E11.9 DM 2 blood sugar diagnostic (BLOOD GLUCOSE TEST) test strip Test one time daily, Insulin Dep? No E11.9 DM 2 No current facility-administered medications on file prior to visit. 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 Any implanted or external electric devices? No status: Post-menopausal. PAST SURGICAL HISTORY Procedure Laterality Date ABDOMINAL SURGERY HX ARTHRP KNE CONDYLE&PLATU MEDIAL&LAT COMPARTMENTS 05/11/2011 Knee replacement, total right ARTHRP KNE CONDYLE&PLATU MEDIAL&LAT COMPARTMENTS 01/2011 left CATARACT EXTRACTION HX Left COLONOSCOPY FLX DX W/COLLJ SPEC WHEN PFRMD 12/28/2007 Colonoscopy COLONOSCOPY FLX DX W/COLLJ SPEC WHEN PFRMD 06/17/2012 Colonoscopy COLONOSCOPY FLX DX W/COLLJ SPEC WHEN PFRMD 11/05/2017 Colonoscopy EGD W/O [facility] SPEC VARICIES INJ 11/25/2022 EYE SURGERY HX JOINT REPLACEMENT HX LAPS SURG CHOLECYSTECTOMY W/CHOLANGIOGRAPHY 01/04/2007 LAPS TOTAL HYSTERECT 250 GM/< W/RMVL TUBE/OVARY 07/24/2022 Exam under anesthesia, total laparoscopic hysterectomy, bilateral salpingo-oophorectomy, sentinel lymph node mapping with excision of bilateral pelvic sentinel lymph nodes, and extensive lysis of adhesions. PAST SURGICAL HISTORY OF N/A 05/11/2023 hx of heart cath FAMILY HISTORY Problem Relation Age of Onset Heart Mother irregular heart rate Colon Cancer Mother Stroke Mother Heart Father from heart attack Colon Cancer Maternal Grandfather Social History Tobacco Use Smoking status: Former Current packs/day: 0.00 Average packs/day: 0.5 packs/day for 20.0 years (10.0 ttl pk-yrs) Types: Cigarettes Start date: 11/05/1957 Quit date: 11/05/1977 Years since quittin.2 Smokeless tobacco: Never Vaping Use Vaping status: Never Used Substance Use Topics Alcohol use: No Drug use: No COMPLETE REVIEW OF SYSTEMS: GENERAL: feeling well without fatigue, no recent change in weight HEENT: denies MCKENZIE, change in hearing or vision, no other ENT complaints NECK: denies swelling or pain in neck RESPIRATORY: oxygen 2L/min. Occasional dry cough. CARDIOVASCULAR: no chest pain, no palpitations GI: Occasional diarrhea. : urination is normal MUSCULOSKELETAL: denies any painful or swollen joints, no muscle aches SKIN: scalp eczema HEMATOLOGY/LYMPHOLOGY: negative for prolonged bleeding, no swollen lymph nodes NEURO: chronic numbness/tingling of feet/hands PHYSICAL EXAM: VS: BP 91/54 Pulse 79 Temp 36.5 C (97.7 F) (Temporal) Wt 131.5 kg (290 lb) SpO2 93% BMI 44.49 kg/m KPS: 90 General Appearance: Alert and oriented. No acute distress. HEENT: NCAT. Sclera anicteric. EOMI. Neck: Normal ROM. Chest: No respiratory distress. Musculoskeletal: Normal ROM in extremities. Neuro: Speech fluent. Gait normal. No focal deficits. Hematologic: No signs of active bleeding. RADIOLOGY/LABORATORY DATA: see HPI ASSESSMENT AND PLAN: 78 year old woman with metastatic endometrial adenocarcinoma with solitary progression of right lung nodule on Carboplatin. I offer SBRT to the right lung nodule. I explained the rationale, benefits, alternative management options and potential complications of radiation treatment to the patient and she understands and agrees to proceed. It was explained and understood that other personnel such as radiation therapists, stacking machine operator, and physicists will participate in planning and delivery of radiation treatment. Permanent tattoo cassidy will be placed to aid with positioning for daily treatment and the patient consented. Patient will have a simulation procedure within a week. Thank you very much for allowing us to participate in her care. Signed by: Patel Escalera MD cc: Vinh Van [address] [place] [address] Nora Branham [address] [facility] [address] Radiation Therapy - Nursing Note (Consult) PATIENT NAME: Pricila Hooker PATIENT February 09, 2024 [facility] FACILITY[facility]LOCATION: [facility] Chief Complaint: Endometrial cancer with lung cancer Reason for visit: Consult. Referring physician: Internal provider Dr Branham Subjective Data: denies shortness of breath with o2 on and sometimes she goes without without shortness of breath, states if she eats too fast she will vomit- this is not new, and on occasion, Additional Data Do you want to see a Office Support Clerk? No Are you interested in information about fertility? No Status: History of hysterectomy Stress Scale: On a scale of 0 to 10, what number best describes how much distress you have experienced in the past week?(0 being no distress and 10 being extreme distress) 0 Social work notified: Pt denied need to see adoption social worker at this time. SIGNED by: Lexie Hadley RN documented in this encounter [facility] 02-09-2024 Note [facility] 02-07-2024 Telephone encounter Note See phone note from 02/04/2024. Vicky Andino LPN [facility] 02-07-2024 Miscellaneous Notes See phone note from 02/04/2024. Vicky Andino LPN Dr. Branham is going to speak to Dr. Escalera regarding possible radiation. Chemo is on hold for now. Vicky Andino LPN Patient's chemo was cancelled for today. Please advise if/when chemo should be rescheduled. Patient said she will see schedule changes on MyChart. Roseann Ignacio documented in this encounter [facility] 02-07-2024 Telephone encounter Note Pt returned call, given message and sent call to PSS to be scheduled (02/08). Uma Pinto LPN [facility] 02-07-2024 Miscellaneous Notes Pt returned call, given message and sent call to PSS to be scheduled (02/08). Uma Pinto LPN Left message for patient to contact office. Vicky Andino LPN Please let her or her sister know that I talked with Dr. Escalera about palliative radiation to the one tumor in the lung that grew. He can offer her SBRT. Please arrange consultation with Dr. Escalera. documented in this encounter [facility] 02-07-2024 Telephone encounter Note Left message for patient to contact office. Vicky Andino LPN [facility] 02-04-2024 Telephone encounter Note Please let her or her sister know that I talked with Dr. Escalera about palliative radiation to the one tumor in the lung that grew. He can offer her SBRT. Please arrange consultation with Dr. Escalera. [facility] 02-04-[address] Branham is going to speak to Dr. Escalera regarding possible radiation. Chemo is on hold for now. Vicky Andino LPN [facility] 02-03-2024 Telephone encounter Note Patient's chemo was cancelled for today. Please advise if/when chemo should be rescheduled. Patient said she will see schedule changes on MyChart. Roseann Ignacio [facility] 02-02-2024 Note [facility] 02-02-2024 History of Present illness Narrative Chief Complaint Patient presents with: Established Patient HPI: Pricila Hooker is a 78 year old female who presents here today for evaluation for treatment tomorrow. Per Dr. Branham's previous note: H/o hypertension, hyperlipidemia, GERD, type 2 diabetes (diagnosed about age 60; neuropathy), total knee replacement, former smoker and recent diagnosis of endometrial cancer. SURGERY & DATE: 07/24/2022 - Exam under anesthesia, total laparoscopic hysterectomy, bilateral salpingo-oophorectomy, sentinel lymph node mapping with excision of bilateral pelvic sentinel lymph nodes, and extensive lysis of adhesions. PATHOLOGY: A. Odum lymph node, right, biopsy: - Isolated tumor cells involving 1 of 2 lymph nodes; see comment. B. 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 C. Uterus with cervix, right and left fallopian tubes, and ovaries, hysterectomy and bilateral salpingo-oophorectomy: - Cervix: No significant pathologic abnormality. - Endomyometrium: Endometrial endometrioid carcinoma with squamous differentiation, FIGO grade 2, invading outer myometrium (18 mm out of 19 mm, 95%) and showing extensive/multifocal lymphovascular invasion and the microcystic, elongated, and fragmented (MELF) pattern of invasion; see comment and synoptic report. - Serosa: No significant pathologic abnormality. - Bilateral ovaries: Adhesions. - Right fallopian tube: Hematosalpinx, no definitive carcinoma. - Left fallopian tube: Metastatic carcinoma. Mismatch repair (MMR) interpretation: Deficient mismatch repair (dMMR) Results Mismatch Repair Protein Immunohistochemistry Results: MLH1: Loss of Nuclear Expression (subclonal/focal loss) PMS2: Loss of Nuclear Expression (subclonal/focal loss) MSH2: Normal/Intact Nuclear Expression MSH6: Normal/Intact Nuclear Expression IMAGING: CT ABD/PELVIS: 06/16/2022 IMPRESSION: 1. Findings compatible with cystitis. 2. Approximately 8.5 cm tubular/serpiginous cystic lesion in the right adnexal region suspect for hydrosalpinx though right ovarian cystic lesion not excluded with certainty. Mild infiltration of the surrounding fat raises suspicion for the possibility of superinfection. A few small bowel loops in the pelvis appear tethered around this right adnexal cystic lesion and a short segment of sigmoid colon abuts the posterior aspect of this right adnexal lesion. 3. Small volume pelvic free fluid. 4. Heterogeneous appearance of the uterus potentially related to fibroids. Further evaluation with dedicated pelvic ultrasound would be of value. CXR: 07/22/2022 IMPRESSION: Left basilar mild atelectasis. TUMOR BOARD: Management Options: -Recommend adjuvant treatment with systemic therapy, carbo/taxol +/- pembrolizumab -Referral to genetics Per initial consultation here: No vaginal discharge or bleeding. Bowels moving regularly. Good appetite. Pain is gone. Subjectively voiding to completion. Fingertip and toes numb. Had it approximately 3 years. Orthostasis if stands quickly. Balance has been "off" for about 6 months. Used [employer] to come in from [facility]. Uses cane and walker in the home. Lives in basement of sister's house. Capable of all ADLs independently. Uses shower chair. She and sister share cooking. Drives. Low back pain can limit her walking--symptoms are consistent with spinal stenosis. Current therapy: 1) Roseann Had EGD. Results noted. ?Gastroparesis. Was admitted to [facility] 01/24 ago for urosepsis. Admitted 2 days. Glimepiride was held. Completed antibiotic Wednesday. Had no urinary symptoms. Family found her at the table acting disoriented. Previously saw carrier associate at [facility] for reduced EF. Started on Jaurdiance. No new concerns today. Pt. here today with her sister. Appetite:"It's up and down." Wt up 6# Energy level:"Fair." Denies fevers. Mouth:denies sores Resp:occ. cough, denies sob, on O2@2L/NC Cardiac:denies chest pain/palpitations GI:occ. lower abd pain-improving, denies n/v, moving bowels regularly :denies dysuria/hematuria Extrem:denies pain Neuro:+neuropathy to feet/hands-stable Skin:denies rashes Heme:denies bleeding The ROS is otherwise negative. Past medical history, appointments, medications, allergies reviewed. No changes. EXAM: BP 110/70 Pulse 89 Temp 36.6 C (97.9 F) (Temporal) Wt 133.4 kg (294 lb) SpO2 93% BMI 45.10 kg/m APPEARANCE Well appearing, alert, in no acute distress, well-hydrated, well nourished. HEART RRR with normal S1 and S2, no murmurs LUNG clear to auscultation ABDOMEN bowel sounds normoactive, soft, non-tender, non-distended EXTREMITIES No edema NEURO Awake, alert and oriented x 3, using w/c, and No involuntary motions. SKIN Skin color, texture, turgor normal, no suspicious rashes or lesions LABS: Latest Ref Rn 01/05/2024 01/13/2024 02/02/2024 WBC 3.70 - 11.00 k/uL 5.18 3.63 (L) 4.68 RBC 3.90 - 5.20 m/uL 2.08 (L) 2.92 (L) 2.43 (L) Hemoglobin 11.5 - 15.5 g/dL 6.7 (L) 9.3 (L) 8.0 (L) Hematocrit 36.0 - 46.0 % 19.8 (L) 27.9 (L) 23.8 (L) MCV 80.0 - 100.0 fL 95.2 95.5 97.9 MCH 26.0 - 34.0 pg 32.2 31.8 32.9 MCHC 30.5 - 36.0 g/dL 33.8 33.3 33.6 RDW-CV 11.5 - 15.0 % 16.2 (H) 16.9 (H) 18.0 (H) Platelet Count 150 - 400 k/uL 42 (L) 262 60 (L) MPV 9.0 - 12.7 fL 10.7 9.4 9.9 Neut% % 77.9 61.9 68.2 Abs Neut (ANC) 1.45 - 7.50 k/uL 4.04 2.25 3.19 Lymph% % 14.3 22.9 18.8 Abs Lymph 1.00 - 4.00 k/uL 0.74 (L) 0.83 (L) 0.88 (L) Montgomery% % 6.4 12.4 10.9 Abs Montgomery <0.87 k/uL 0.33 0.45 0.51 Eosin% % 0.8 2.2 1.7 Abs Eosin <0.46 k/uL 0.04 0.08 0.08 Baso% % 0.2 0.0 0.2 Abs Baso <0.11 k/uL <0.03 <0.03 <0.03 Immature Gran % % 0.4 0.6 0.2 IMMATURE GRANS (ABS) <0.10 k/uL <0.03 <0.03 <0.03 NRBC /100 WBC 0.0 0.0 0.0 Absolute nRBC <0.01 k/uL <0.01 <0.01 <0.01 DTYPE Auto Auto Auto Latest Ref [facility] 01/13/2024 02/02/2024 Protein, Total 6.3 - 8.0 g/dL 6.9 6.3 Albumin 3.9 - 4.9 g/dL 4.0 3.8 (L) Calcium 8.5 - 10.2 mg/dL 9.5 9.3 Bilirubin, Total 0.2 - 1.3 mg/dL 0.4 0.3 Alkaline Phosphatase 34 - 123 U/L 100 79 AST 13 - 35 U/L 10 (L) 12 (L) ALT 7 - 38 U/L 10 13 Glucose 74 - 99 mg/dL 183 (H) 168 (H) BUN 7 - 21 mg/dL 19 23 (H) Creatinine 0.58 - 0.96 mg/dL 1.00 (H) 1.02 (H) Sodium 136 - 144 mmol/L 137 137 Potassium 3.7 - 5.1 mmol/L 4.6 4.3 Chloride 98 - 107 mmol/L 98 101 CO2 22 - 30 mmol/L 29 26 Anion Gap 8 - 15 mmol/L 10 10 eGFR >=60 mL/min/1.73m 58 (L) 56 (L) Latest Ref Rn 01/13/2024 02/02/2024 Magnesium 1.7 - 2.3 mg/dL 1.4 (L) 1.2 (L) ASSESSMENT/PLAN: 1. Endometrial cancer (HCC) - ICD9: 182.0, ICD10: C54.1 (primary diagnosis) 2. 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 - Reviewed labs/CT's with pt. and Dr. Branham. - Continue current medications. - Advised pt. to journal BP's for cards. Follow up with cards as scheduled. - Repeat CT chest after two more cycles-prior to OV with Dr. Branham. - Repeat CBC tomorrow to recheck platelet count. - Pt. will need magnesium tomorrow. - Proceed as scheduled tomorrow for #4 carbo pending repeat lab. - Follow up as scheduled. - Pt. aware to call office with any questions/concerns. The patient indicates understanding of these issues and agrees with the plan. Discussed case with Dr. Branham who agrees with treatment plan. All documentation from previous visit of 01/05/24-Dr. Branham/myself was copied and pasted, documentation has been reviewed and edited as necessary for today's visit. Tamara Mari APRN.SOLO documented in this encounter [facility] 01-18-2024 Note [facility] 01-18-2024 History of Present illness Narrative Patient is here for IVAD port flush/blood draw. IVAD is located in right upper chest. Site cleansed with Chloraprep IVAD accessed with a #20 gauge 3/4" non-coring Gripper needle Flush with 5cc's Normal Saline. Blood Return: Good. 10 cc's blood aspirated and discarded. Blood drawn for NO Labs. Flushed with: 20 ml Normal Saline. Non-coring needle left intact for further therapY After MRI daugherty needle removed and guaze applied to puncture site. Site negative for redness, edema or tenderness. Patient tolerated procedure well. Milagro Payne RN documented in this encounter [facility] 01-18-2024 History of Present illness Narrative Radiology Service Progress Note PATIENT NAME: Pricila Hooker DATE OF SERVICE: January 18, 2024 TIME: 12:35 PM PATIENT IDENTITY VERIFICATION COMPLETED USING TWO (2) IDENTIFIERS: Name and Date of confirmed by patient verbally. FALL SCREENING: Has the patient had 2 falls in the last year or 1 fall with injury or currently using an Ambulatory Assistive Device (Walker, Cane, Wheelchair, Crutches, etc.)? No PATIENT GENDER DATA: Female. status: : No status: NO. PATIENT RELEVANT IMPLANT DATA REVIEWED: Yes PATIENT PRESENTS WITH AN IMPLANTABLE OR ATTACHED KENNEL STAFF MEMBER: No RADIOLOGY DEPARTMENT: CT; Exam(s) Completed: Chest Abdomen Pelvis PERIPHERAL IV DATA: power port accessed by [employer] SIGNED BY: RT Adi(R) January 18, 2024 12:35 PM documented in this encounter [facility] 01-18-2024 Note [facility] 01-12-2024 Telephone encounter Note Scheduled as directed. Roseann Ignacio [facility] 01-12-2024 Miscellaneous Notes Scheduled as directed. Roseann Ignacio Please place pt on port schedule for 11:30 tomorrow 01/12. Pt is aware. Thank you. documented in this encounter [facility] 01-12-2024 Telephone encounter Note Please place pt on port schedule for 11:30 tomorrow 01/12. Pt is aware. Thank you. [facility] 01-12-2024 Telephone encounter Note Script sent two days ago. Uma Pinto LPN [facility] 01-12-2024 Miscellaneous Notes Script sent two days ago. Uma Pinto LPN documented in this encounter [facility] 01-07-2024 Telephone encounter Note Prescription Refill Information The patient has been identified by name and date of : Yes Caregiver verified no other encounters exist for this prescription request: Yes Caregiver confirmed with patient/requestor that no other refills are due, in the near future, with this provider at this time: Yes The last office visit in the department: 01/05/2024 Does the patient have a future office visit with this provider/department: Yes Requested Prescriptions Pending Prescriptions Disp Refills DULoxetine (CYMBALTA) 60 mg capsule [Pharmacy Med Name: DULoxetine HCl 60 MG Oral Capsule Delayed Release Particles] 30 capsule 0 Sig: Take 1 capsule by mouth once daily Mary Romero LPN January 07, 2024 7:30 AM [facility] 01-07-2024 Miscellaneous Notes Prescription Refill Information The patient has been identified by name and date of : Yes Caregiver verified no other encounters exist for this prescription request: Yes Caregiver confirmed with patient/requestor that no other refills are due, in the near future, with this provider at this time: Yes The last office visit in the department: 01/05/2024 Does the patient have a future office visit with this provider/department: Yes Requested Prescriptions Pending Prescriptions Disp Refills DULoxetine (CYMBALTA) 60 mg capsule [Pharmacy Med Name: DULoxetine HCl 60 MG Oral Capsule Delayed Release Particles] 30 capsule 0 Sig: Take 1 capsule by mouth once daily Mary Romero LPN January 07, 2024 7:30 AM documented in this encounter [facility] 01-06-2024 Telephone encounter Note SOCIAL WORK FOLLOW UP NOTE: [facility] Date of service: January 05, 2024 Pricila Hooker is being seen for a follow up social work visit. Today's visit includes: patient and sister, Milagro Barboza TOPICS ADDRESSED: SW spoke with pt and her sister this date. Pt's sister, Milagro, is asking for advice on pt's Medicare supplement plan. She reports pt was denied lab work at the [facility] recently and is inquiring if a change in insurance during open enrollment may be a good idea. Milagro reports she has spoken with financial accountant Ledy Carranza previously and would like a referral to her. CLAIR placed referral via email this date. No other needs identified. PLAN: Continue follow up as needed and referral to financial accountant F/U APPOINTMENT: PRN Assigned CLAIR listed in Care Team tab: Yes REGINALDO Babcock [facility] 01-06-2024 Miscellaneous Notes SOCIAL WORK FOLLOW UP NOTE: [facility] Date of service: January 05, 2024 Pricila Hooker is being seen for a follow up social work visit. Today's visit includes: patient and sister, Milagro Barboza TOPICS ADDRESSED: CLAIR spoke with pt and her sister this date. Pt's sister, Milagro, is asking for advice on pt's Medicare supplement plan. She reports pt was denied lab work at the [facility] recently and is inquiring if a change in insurance during open enrollment may be a good idea. Milagro reports she has spoken with financial accountant Ledy Carranza previously and would like a referral to her. CLAIR placed referral via email this date. No other needs identified. PLAN: Continue follow up as needed and referral to financial accountant F/U APPOINTMENT: PRN Assigned CLAIR listed in Care Team tab: Yes REGINALDO Babcock documented in this encounter [facility] 01-06-2024 Telephone encounter Note Lab/Port scheduled. Patient schedule updated. Per nurse - a schedule will be printed and given to patient at appt today. [facility] Work Phone: 01-06-2024 Miscellaneous Notes Lab/Port scheduled. Patient schedule updated. Per nurse - a schedule will be printed and given to patient at appt today. Spoke with pts. Sister, informed pt. Needs to return today for type and screen PSS please put on port schedule for type and screen today at 11:30 , I will let triage know of the add on Mary Romero LPN Left message on identified voicemail chemo for today is cancelled due to low platelets. HGB is 6.7 asked her to contact office have some questions nursing needs to discuss with her. Mary Romero LPN Have to delay chemo a week. Platelets too low. Nora Branham DO documented in this encounter [facility] 01-06-2024 Telephone encounter Note Pt. Scheduled for transfusion 2 units packed cells @ [facility] 01/07/2024 . Pt. And lab notified, orders faxed. Mary Romero LPN [facility] 01-06-2024 Miscellaneous Notes Pt. Scheduled for transfusion 2 units packed cells @ [facility] 01/07/2024 . Pt. And lab notified, orders faxed. Mary Romero LPN documented in this encounter [facility] 01-06-2024 Telephone encounter Note Spoke with pts. Sister, informed pt. Needs to return today for type and screen PSS please put on port schedule for type and screen today at 11:30 , I will let triage know of the add on Mary Romero LPN [facility] 01-06-2024 Telephone encounter Note Left message on identified voicemail chemo for today is cancelled due to low platelets. HGB is 6.7 asked her to contact office have some questions nursing needs to discuss with her. Mary Romero LPN [facility] 01-05-2024 Telephone encounter Note Have to delay chemo a week. Platelets too low. Nora Branham DO [facility] 01-05-2024 History of Present illness Narrative Chief Complaint Patient presents with: Established Patient HPI: Pricila Hooker is a 78 year old female who presents here today for evaluation for treatment tomorrow. Per Dr. Branham's previous note: H/o hypertension, hyperlipidemia, GERD, type 2 diabetes (diagnosed about age 60; neuropathy), total knee replacement, former smoker and recent diagnosis of endometrial cancer. SURGERY & DATE: 07/24/2022 - Exam under anesthesia, total laparoscopic hysterectomy, bilateral salpingo-oophorectomy, sentinel lymph node mapping with excision of bilateral pelvic sentinel lymph nodes, and extensive lysis of adhesions. PATHOLOGY: A. Odum lymph node, right, biopsy: - Isolated tumor cells involving 1 of 2 lymph nodes; see comment. B. 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 C. Uterus with cervix, right and left fallopian tubes, and ovaries, hysterectomy and bilateral salpingo-oophorectomy: - Cervix: No significant pathologic abnormality. - Endomyometrium: Endometrial endometrioid carcinoma with squamous differentiation, FIGO grade 2, invading outer myometrium (18 mm out of 19 mm, 95%) and showing extensive/multifocal lymphovascular invasion and the microcystic, elongated, and fragmented (MELF) pattern of invasion; see comment and synoptic report. - Serosa: No significant pathologic abnormality. - Bilateral ovaries: Adhesions. - Right fallopian tube: Hematosalpinx, no definitive carcinoma. - Left fallopian tube: Metastatic carcinoma. Mismatch repair (MMR) interpretation: Deficient mismatch repair (dMMR) Results Mismatch Repair Protein Immunohistochemistry Results: MLH1: Loss of Nuclear Expression (subclonal/focal loss) PMS2: Loss of Nuclear Expression (subclonal/focal loss) MSH2: Normal/Intact Nuclear Expression MSH6: Normal/Intact Nuclear Expression IMAGING: CT ABD/PELVIS: 06/16/2022 IMPRESSION: 1. Findings compatible with cystitis. 2. Approximately 8.5 cm tubular/serpiginous cystic lesion in the right adnexal region suspect for hydrosalpinx though right ovarian cystic lesion not excluded with certainty. Mild infiltration of the surrounding fat raises suspicion for the possibility of superinfection. A few small bowel loops in the pelvis appear tethered around this right adnexal cystic lesion and a short segment of sigmoid colon abuts the posterior aspect of this right adnexal lesion. 3. Small volume pelvic free fluid. 4. Heterogeneous appearance of the uterus potentially related to fibroids. Further evaluation with dedicated pelvic ultrasound would be of value. CXR: 07/22/2022 IMPRESSION: Left basilar mild atelectasis. TUMOR BOARD: Management Options: -Recommend adjuvant treatment with systemic therapy, carbo/taxol +/- pembrolizumab -Referral to genetics Per initial consultation here: No vaginal discharge or bleeding. Bowels moving regularly. Good appetite. Pain is gone. Subjectively voiding to completion. Fingertip and toes numb. Had it approximately 3 years. Orthostasis if stands quickly. Balance has been "off" for about 6 months. Used WC to come in from [facility]. Uses cane and walker in the home. Lives in basement of sister's house. Capable of all ADLs independently. Uses shower chair. She and sister share cooking. Drives. Low back pain can limit her walking--symptoms are consistent with spinal stenosis. Current therapy: 1) Roseann Had EGD. Results noted. ?Gastroparesis. Was admitted to [facility] 01/24 ago for urosepsis. Admitted 2 days. Glimepiride was held. Completed antibiotic Wednesday. Had no urinary symptoms. Family found her at the table acting disoriented. Previously saw carrier associate at [facility] for reduced EF. Started on Jaurdiance. No new concerns today. Pt. here today with her sister. Appetite:"It's ok." Energy level:"Fair." Denies fevers. Mouth:denies sores Resp:denies cough or sob, on O2@2L/NC Cardiac:denies chest pain/palpitations GI:occ. lower abd pain, denies nausea, occ. vomiting-pt. feels r/t food smells, moving bowels regularly :denies dysuria/hematuria Extrem:denies pain Neuro:+neuropathy to feet/hands Skin:denies rashes Heme:denies bleeding The ROS is otherwise negative. Past medical history, appointments, medications, allergies reviewed. No changes. EXAM: BP 98/65 Pulse 94 Temp 36.7 C (98 F) (Temporal) Wt 130.9 kg (288 lb 8 oz) SpO2 92% BMI 44.26 kg/m APPEARANCE Well appearing, alert, in no acute distress, well-hydrated, well nourished. MOUTH no thrush/mucositis HEART RRR with normal S1 and S2, no murmurs LUNG clear to auscultation LYMPH NODES No cervical lymphadenopathy, No supraclavicular lymphadenopathy, and No axillary lymphadenopathy. ABDOMEN bowel sounds normoactive, soft, non-tender, non-distended, without organomegaly or palpable masses EXTREMITIES No edema NEURO Awake, alert and oriented x 3, using w/c, and No involuntary motions. SKIN Skin color, texture, turgor normal, no suspicious rashes or lesions LABS: Pending ASSESSMENT/PLAN: 1. Endometrial cancer (HCC) - ICD9: 182.0, ICD10: C54.1 (primary diagnosis) 2. 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 Lung nodules - ICD9: 793.19, ICD10: R91.8 - Tolerating carboplatin fairly well except for fatigue. - Labs pending today. - Continue current medications. - Advised pt. to journal BP's for cards. Follow up with cards as scheduled. - CT's after this cycle. - Proceed as scheduled tomorrow for #3 carbo pending all labs. - Follow up with Dr. Branham as scheduled. - Pt. aware to call office with any questions/concerns. The patient indicates understanding of these issues and agrees with the plan. All documentation from previous visit of 11/19/23-Dr. Branham was copied and pasted, documentation has been reviewed and edited as necessary for today's visit. Tamara Mari APRN.DIRECTOR MARKETING documented in this encounter [facility] 01-05-2024 History of Present illness Narrative Patient is here for IVAD port flush/blood draw per [facility] protocol. IVAD is located in left upper chest. Site cleansed with Chloraprep IVAD accessed with a #20 gauge 3/4" non-coring Gripper needle Flush with 5cc's Normal Saline. Blood Return: Good. 10 cc's blood aspirated and discarded. Blood drawn for CBC and CMP. Flushed with: 20 ml Normal Saline. Non-coring needle removed. Paper tape applied to puncture site. Site negative for redness, edema or tenderness. Patient tolerated procedure well. documented in this encounter [facility] 12-21-2023 History of Present illness Narrative Images from the original note were not included. . [facility] Note Patient name: Pricila Hooker PCP: Vinh Van MD CC: Lung issues HPI: Pricila Hooker 78 year old female former 10 pack year smoker, quitting in 1977 with PMH significant for morbid obesity, hypoxemic and hypercapnic respiratory failure (likely ALEXX/OHS), h/o endometrial cancer, lung nodules, DM, spinal stenosis, neuropathy, COPD former patient of Dr. Araujo, changing care locally for convenience. Recent history notable for chest CT showing bilateral pulmonary nodules presumed to be metastases. CT of the chest in September showed new right pleural based nodule with positive uptake on PET scan. Subsequent CT biopsy positive for adenocarcinoma and consistent with metastatic endometrial cancer. Current therapy with Carboplatin alone. She had significant neuropathy and cardiomyopathy from paclitaxel and pembrolizumab with her previous treatment. She was hospitalized in August with hypoxemic and hypercapnic respiratory failure due to diastolic heart failure. She had evidence of chronic hypercapnic respiratory failure based on her bicarbonate level of 37. She was supposed to have evaluation for sleep apnea in the past never followed through. When she was discharged from the hospital, she qualified for supplemental oxygen and plan was for outpatient sleep study for CPAP/BiPAP initiation. She had split night PSG that was non-diagnostic since patient did not sleep. Dr. Araujo ordered a full night PSG to be done at [facility]. Unfortunately she did not sleep again for her full sleep night study. She is currently only using oxygen and has no desire to further pursue evaluation for PAP. From a pulmonary standpoint, she has dyspnea with exertion and intermittent wheezing. No significant cough or sputum production. No chest pain or current lower extremity edema. She was supposed to have pulmonary function test after her hospital stay since she had evidence of moderate obstruction on remote pulmonary function testing but did not have updated evaluation. Not currently using inhaled therapy. She had used albuterol in the past. [facility]; [facility] DATA: Labs: FINAL DIAGNOSIS A. Lung, right, biopsy: - Adenocarcinoma (See commen Imaging / Diagnostic Studies: DATE OF EXAM: Oct 27 2023 9:52AM [facility] 0541 - CT CHEST WO IVCON / IMPRESSION: 1. There is a new 2.2 x 1.3 cm right posterior pleural-based nodules. Other pulmonary nodules appear unchanged. 2. Trace right pleural effusion 3. No new thoracic lymphadenopathy DATE OF EXAM: Nov 09 2023 9:18AM [facility] 0060 - NM PET/CT SKULL-THIGH INIT / IMPRESSION: HEAD/NECK: * No metabolically active disease. CHEST: * FDG avid anterior right upper lobe pulmonary nodule. Other, smaller bilateral pulmonary nodules are below PET resolution, presumed metastatic. * FDG avid pleural-based metastatic nodule in the posterior right lower lobe. * Small right pleural effusion with mild uptake, presumed malignant. ABDOMEN/PELVIS: * Scattered FDG avid omental nodularity and FDG avid nodularity along the left pelvic peritoneal reflection, compatible with recurrent/metastatic disease. * FDG avid subtle hypoattenuating lesion in the posterior right hepatic lobe, presumed metastasis. MUSCULOSKELETAL: * Focal uptake localizing to asymmetric prominence of the right psoas at the level of L1-L2, presumed intramuscular metastatic deposit. * FDG avid skin thickening along the inner proximal left thigh, likely inflammatory. This can be correlated with physical exam. * No FDG avid osseous lesion. I personally reviewed the images which is consistent with metastatic cancer PAST MEDICAL HISTORY Diagnosis Date Acute cholecystitis 01/04/2007 Arthritis Benign neoplasm of colon Carcinomatosis (HCC) 11/19/2023 CHF (congestive heart failure) (HCC) Diabetes mellitus without mention of complication Endometrial cancer (HCC) GERD (gastroesophageal reflux disease) Hemorrhoids Hypercholesteremia Hypertension Neuropathy Obesity Osteoarthritis of multiple joints ALLERGIES No Known Allergies fluticasone-vilanterol (BREO ELLIPTA) 100-25 mcg/dose inhaler Inhale 1 Inhalation as instructed once daily. furosemide (LASIX) 20 mg tablet Take 1 tablet by mouth once daily. (Patient not taking: Reported on 12/21/2023) DULoxetine (CYMBALTA) 60 mg capsule Take 1 capsule by mouth once daily. amitriptyline (ELAVIL) 50 mg tablet Take 1 tablet by mouth daily at bedtime. triamcinolone acetonide (KENALOG) 0.1 % ointment Apply to affected area two times a day. gabapentin (NEURONTIN) 100 mg capsule Take 1 capsule by mouth two times a day for 180 days. carvedilol (COREG) 3.125 mg tablet Take 2 tablets by mouth two times a day with meals. (Patient taking differently: Take 6.25 mg by mouth two times a day with meals. Hold if SBP <100) glimepiride (AMARYL) 4 mg tablet Take 1 tablet by mouth two times a day with meals. atorvastatin (LIPITOR) 40 mg tablet TAKE 1 TABLET BY MOUTH ONCE DAILY AT BEDTIME FOR CHOLESTEROL valsartan (DIOVAN) 80 mg tablet Take 1 tablet by mouth two times a day. metFORMIN (GLUCOPHAGE) 500 mg tablet Take 2 tablets by mouth two times a day with meals. . Blood Pressure Monitor Take your blood pressure everyday and keep a log aspirin 81 mg cap Take 81 mg by mouth once daily. silver sulfADIAZINE (SILVADENE) 1 % cream Apply to affected area once daily. Magnesium Chloride (SLOW-MAG) 71.5 mg TbEC Take 1 tablet by mouth twice daily. lidocaine-prilocaine (EMLA) 2.5-2.5 % cream Apply to affected area as needed. acetaminophen (TYLENOL EXTRA STRENGTH) 500 mg tablet Take 2 tablets by mouth every 6 hours as needed for pain. Lancets lancets Test one time daily, Insulin Dep? No E11.9 DM 2 alcohol swabs (ALCOHOL PADS) Test one time daily, Insulin Dep? No E11.9 DM 2 blood sugar diagnostic (BLOOD GLUCOSE TEST) test strip Test one time daily, Insulin Dep? No E11.9 DM 2 dulaglutide (TRULICITY) 3 mg/0.5 mL pen injector Inject 3 mg subcutaneously one time a week. Patient Assistance Medication. Social History Tobacco Use Smoking status: Former Current packs/day: 0.00 Average packs/day: 0.5 packs/day for 20.0 years (10.0 ttl pk-yrs) Types: Cigarettes Start date: 11/05/1957 Quit date: 11/05/1977 Years since quittin.1 Smokeless tobacco: Never Vaping Use Vaping status: Never Used Substance Use Topics Alcohol use: No Drug use: No Pets: Dog FAMILY HISTORY Problem Relation Age of Onset Heart Mother irregular heart rate Colon Cancer Mother Stroke Mother Heart Father from heart attack Colon Cancer Maternal Grandfather PAST SURGICAL HISTORY Procedure Laterality Date ABDOMINAL SURGERY HX ARTHRP KNE CONDYLE&PLATU MEDIAL&LAT COMPARTMENTS 05/11/2011 Knee replacement, total right ARTHRP KNE CONDYLE&PLATU MEDIAL&LAT COMPARTMENTS 01/2011 left CATARACT EXTRACTION HX Left COLONOSCOPY FLX DX W/COLLJ SPEC WHEN PFRMD 12/28/2007 Colonoscopy COLONOSCOPY FLX DX W/COLLJ SPEC WHEN PFRMD 06/17/2012 Colonoscopy COLONOSCOPY FLX DX W/COLLJ SPEC WHEN PFRMD 11/05/2017 Colonoscopy EGD W/O BRSH SPEC VARICIES INJ 11/25/2022 EYE SURGERY HX JOINT REPLACEMENT HX LAPS SURG CHOLECYSTECTOMY W/CHOLANGIOGRAPHY 01/04/2007 LAPS TOTAL HYSTERECT 250 GM/< W/RMVL TUBE/OVARY 07/24/2022 Exam under anesthesia, total laparoscopic hysterectomy, bilateral salpingo-oophorectomy, sentinel lymph node mapping with excision of bilateral pelvic sentinel lymph nodes, and extensive lysis of adhesions. PAST SURGICAL HISTORY OF N/A 05/11/2023 hx of heart cath PMH, Social history, family history and surgical history reviewed and updated in EMR REVIEW OF SYSTEMS: CONSTITUTIONAL: No fevers, chills, nightsweats, unintended weight loss HEENT: Denies nasal congestion/sinus symptoms, allergy problems. Dry mouth EYES: No visual changes CARDIOVASCULAR: No chest pain, palpitations, orthopnea, current edema. PULM: See HPI GI: No dysphagia/odynophagia, problematic reflux NEURO: Balance issues, neuropathy. MUSC-SKEL: Spinal stenosis with back pain PSY: No concerns regarding depression, anxiety INTEGUMENTARY: Bruising PHYSICAL EXAMINATION: BP 118/76 Pulse 83 SpO2 90% on oxygen, RR General Appearance: Obese elderly in wheelchair. Skin: Skin color, texture, turgor normal, no suspicious rashes or lesions. Few ecchymoses Head: Normocephalic, no masses, lesions, tenderness or abnormalities. Eyes: Sclera, conjunctiva normal. Oropharynx: Mallampati 4, no oral lesions. Neck: No masses or adenopathy. Lungs: Not labored, normal to percussion, no wheezes or crackles. Heart: Regular rate and rhythm, no murmurs. Extremities: No edema or clubbing. Assessment/Plan: 1. Endometrial cancer metastatic to both lungs -Active treatment plan per oncology -Will review surveillance CT chest when available 2. Moderate COPD -Past PFT showed moderate obstruction. Started Breo Ellipta -Update pulmonary function test at next visit 3. Chronic hypoxemic respiratory failure -Patient is compliant with and benefits from supplemental oxygen 4. Morbid obesity -Suspect LAEXX and or OHS. See HPI -BMI 44 -Weight loss advised I spent a total of 54 minutes on the date of the service which included preparing to see the patient, [id number] patient care, completing clinical documentation, obtaining and/or reviewing separately obtained history, performing a medically appropriate examination, ordering medications, tests, or procedures, and independently interpreting results (not separately reported). Pamela Nelson MD [facility] [place] documented in this encounter [facility] 12-16-2023 Telephone encounter Note Pt. Scheduled for transfusion 1 units packed cells @ [facility] 12/16 @ 9:30 AM Pt. And lab notified, orders faxed. Mary Romero LPN [facility] 12-16-2023 Miscellaneous Notes Pt. Scheduled for transfusion 1 units packed cells @ [facility] 12/16 @ 9:30 AM Pt. And lab notified, orders faxed. 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 HPI: The patient is a 77-year-old female with a past medical history significant for hypertension, hyperlipidemia, GERD, type 2 diabetes (diagnosed about age 60; neuropathy), total knee replacement, former smoker and recent diagnosis of endometrial cancer. SURGERY & DATE: 07/24/2022 - Exam under anesthesia, total laparoscopic hysterectomy, bilateral salpingo-oophorectomy, sentinel lymph node mapping with excision of bilateral pelvic sentinel lymph nodes, and extensive lysis of adhesions. PATHOLOGY: A. Odum lymph node, right, biopsy: - Isolated tumor cells involving 1 of 2 lymph nodes; see comment. B. 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 C. Uterus with cervix, right and left fallopian tubes, and ovaries, hysterectomy and bilateral salpingo-oophorectomy: - Cervix: No significant pathologic abnormality. - Endomyometrium: Endometrial endometrioid carcinoma with squamous differentiation, FIGO grade 2, invading outer myometrium (18 mm out of 19 mm, 95%) and showing extensive/multifocal lymphovascular invasion and the microcystic, elongated, and fragmented (MELF) pattern of invasion; see comment and synoptic report. - Serosa: No significant pathologic abnormality. - Bilateral ovaries: Adhesions. - Right fallopian tube: Hematosalpinx, no definitive carcinoma. - Left fallopian tube: Metastatic carcinoma. Mismatch repair (MMR) interpretation: Deficient mismatch repair (dMMR) Results Mismatch Repair Protein Immunohistochemistry Results: MLH1: Loss of Nuclear Expression (subclonal/focal loss) PMS2: Loss of Nuclear Expression (subclonal/focal loss) MSH2: Normal/Intact Nuclear Expression MSH6: Normal/Intact Nuclear Expression IMAGING: CT ABD/PELVIS: 06/16/2022 IMPRESSION: 1. Findings compatible with cystitis. 2. Approximately 8.5 cm tubular/serpiginous cystic lesion in the right adnexal region suspect for hydrosalpinx though right ovarian cystic lesion not excluded with certainty. Mild infiltration of the surrounding fat raises suspicion for the possibility of superinfection. A few small bowel loops in the pelvis appear tethered around this right adnexal cystic lesion and a short segment of sigmoid colon abuts the posterior aspect of this right adnexal lesion. 3. Small volume pelvic free fluid. 4. Heterogeneous appearance of the uterus potentially related to fibroids. Further evaluation with dedicated pelvic ultrasound would be of value. CXR: 07/22/2022 IMPRESSION: Left basilar mild atelectasis. TUMOR BOARD: Management Options: -Recommend adjuvant treatment with systemic therapy, carbo/taxol +/- pembrolizumab -Referral to genetics Per initial consultation here: No vaginal discharge or bleeding. Bowels moving regularly. Good appetite. Pain is gone. Subjectively voiding to completion. Fingertip and toes numb. Had it approximately 3 years. Orthostasis if stands quickly. Balance has been "off" for about 6 months. Used WC to come in from [employer]. Uses cane and walker in the home. Lives in basement of sister's house. Capable of all ADLs independently. Uses shower chair. She and sister share cooking. Drives. Low back pain can limit her walking--symptoms are consistent with spinal stenosis. Current therapy: 1) Paclitaxel and carboplatin and pembrolizumab. First 2 cycles without pembrolizumab. Had EGD. Results noted. ?Gastroparesis. Was admitted to [facility] 01/24 ago for urosepsis. Admitted 2 days. Glimepiride was held. Completed antibiotic Wednesday. Had no urinary symptoms. Family found her at the table acting disoriented. Previously saw carrier associate at [facility] for reduced EF. Started on Jaurdiance. She was admitted in August of her hypoxemic/hypercapnic respiratory failure. Was in CHF. Presents for ongoing oncologic management. Interim history: Ms. Hooker presents today with her sister for follow up prior to treatment. Continues living in a walkout basement and her sisters home. She has frequent orthostasis, BP low today. She is on BP medications. Took today. Neuropathy symptoms are no worse. Fingertips are involved. She does not cook for fear of burning herself, has had several instances of burning fingers without realizing. Numbness in the feet comes to just above the ankles. Better with shoes on. No chest pain. No palpitation or sensation of tachycardia. Has oxygen since the time of discharge from [facility]. Wearing today. Makes her mouth dry. Uses it at night all the time. Not so much during the day unless she is walking around the house. Appetite has been normal. No abdominal pain. Bowels have been working regularly with formed stools. She has occasional diarrhea. Not daily. Able to void her bladder well. Denies bleeding. PMH, medications and allergies personally reviewed by me today. Any changes documented in appropriate section. PHYSICAL EXAM: Vitals: Blood pressure 92/59, pulse 75, temperature 36.2 C (97.1 F), temperature source Temporal, weight 131.1 kg (289 lb), SpO2 93%. Well-appearing and in no acute distress. EYES: Sclerae are anicteric bilaterally. LYMPHATIC: There is no palpable cervical or supraclavicular, adenopathy. RESPIRATORY: Inspiratory breath sounds are of diminished intensity in all thompson. No rales, wheezes or rhonchi. CARDIOVASCULAR: Rhythm is regular. ABDOMEN: The abdomen is nondistended. ASSESSMENT/PLAN: Per Dr. 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 -KPS is 60%. -Significant comorbid conditions including type 2 diabetes with pre-existing sensory neuropathy. She had impaired gait and mobility from spinal stenosis as well. Nonetheless she stood to benefit significantly from adjuvant therapy with carboplatin, paclitaxel and pembrolizumab based on the reported results of the [id number]-[id number] trial. -Pembrolizumab was added with cycle #3. Received 5 cycles. Therapy held following due to worsening neuropathy and general decline. -Diagnosed with immunotherapy induced cardiomyopathy. Frequent orthostasis. -Neuropathy stable. -I reviewed the PET scan images and results with her and her sister. Biopsy was performed yesterday. Results are pending but in the interest of starting therapy in a timely fashion I recommended single agent treatment with carboplatin. She tolerated that drug well initially. I believe the Taxol contributed to her neuropathy more than the carboplatin. Explained the goals of care are potential prolongation of survival. Explained the disease is not curable. Strategy will be single agent sequential chemotherapy pending her tolerance and response. -I discussed the logistics, potential risks (including but not limited to cytopenias, exacerbation of neuropathy, nausea vomiting, diarrhea, hypomagnesemia, infections and the small potential for as a consequence of severe toxicity/complications of therapy), benefits and alternatives, as well as the personnel involved in the administration of carboplatin. I answered her questions in detail and she verbalized understanding and agreed with the recommended therapy. Please see the electronic consent document for details of doses and schedule. -Anemia with borderline macrocytic indices. Plan: -CBC/CMP/Mg/TSH/B12/serum folate/hep remote panel today. -Begin carboplatin once biopsy finalized. -CBC/CMP/magnesium for cycle #2. -CT scan following cycle #3. A/P -Tolerated C1 well, -CBC today reviewed, would repeat prior to treatment on 12/15 -CBC/CMP/magnesium for cycle #3. -CT scan following cycle #3. - follow up with cardiology - continue to monitor BP at home. - she was advised by cardiology to hold coreg for systolic under 100 - ? Decrease dose Maisha Edmonds APRN.DIRECTOR MARKETING I spent a total of 30 minutes on the date of the service which included preparing to see the patient, [id number] patient care, completing clinical documentation, obtaining and/or reviewing separately obtained history, and counseling and educating the patient/family/caregiver. Portions of this note including HPI, ROS, impression/plan may have been copied forward as to provide important historical information essential in contributing to medical decision making. Documentation has been reviewed and edited as necessary to support clinical decision making for today's visit and to reflect my own independent evaluation of this patient. documented in this encounter [facility] 12-10-2023 Telephone encounter Note Patient already spoke with nurse and assisted patient. Roseann Ignacio [facility] 12-10-2023 Miscellaneous Notes Patient already spoke with nurse and assisted patient. Roseann Ignacio Think this was sent to the wrong pool Patient has 2 upcoming back to back appointments and is asking if these can be rescheduled together later in the day. She is asking for the department to please call to review availability. TY [phone] documented in this encounter [facility] 12-10-2023 Telephone encounter Note Think this was sent to the wrong pool [facility] Work Phone: 12-09-2023 Telephone encounter Note OK to refill as ordered Vinh Van MD [facility] 12-09-2023 Miscellaneous Notes OK to refill as ordered Vinh Van MD Prescription Refill Information The patient has been identified by name and date of : Yes Caregiver verified no other encounters exist for this prescription request: Yes Caregiver confirmed with patient/requestor that no other refills are due, in the near future, with this provider at this time: Yes The last office visit in the department: 09/10/23 Does the patient have a future office visit with this provider/department: No - cancelled appt on 11/24/23. Requested Prescriptions Pending Prescriptions Disp Refills furosemide (LASIX) 20 mg tablet 90 tablet 0 Sig: Take 1 tablet by mouth once daily. Talia Alba MA December 09, 2023 11:09 AM Patient has been identified by name and date of : Yes Patient phones for refill(s): Requested Prescriptions Pending Prescriptions Disp Refills furosemide (LASIX) 20 mg tablet 90 tablet 0 Sig: Take 1 tablet by mouth once daily. Date of last office visit in primary care: 09/10/2023 Date of next office visit in primary care: Visit date not found Please advise. Thank you. Zoila Charles. documented in this encounter [facility] 12-09-2023 Telephone encounter Note Prescription Refill Information The patient has been identified by name and date of : Yes Caregiver verified no other encounters exist for this prescription request: Yes Caregiver confirmed with patient/requestor that no other refills are due, in the near future, with this provider at this time: Yes The last office visit in the department: 09/10/23 Does the patient have a future office visit with this provider/department: No - cancelled appt on 11/24/23. Requested Prescriptions Pending Prescriptions Disp Refills furosemide (LASIX) 20 mg tablet 90 tablet 0 Sig: Take 1 tablet by mouth once daily. Talia Alba MA December 09, 2023 11:09 AM [facility] 12-09-2023 Telephone encounter Note Patient has 2 upcoming back to back appointments and is asking if these can be rescheduled together later in the day. She is asking for the department to please call to review availability. TY [phone] [facility] 12-09-2023 Telephone encounter Note Patient has been identified by name and date of : Yes Patient phones for refill(s): Requested Prescriptions Pending Prescriptions Disp Refills furosemide (LASIX) 20 mg tablet 90 tablet 0 Sig: Take 1 tablet by mouth once daily. Date of last office visit in primary care: 09/10/2023 Date of next office visit in primary care: Visit date not found Please advise. Thank you. Zoila Charles. [facility] 12-02-2023 History of Present illness Narrative ED Follow-Up Note Provider Action / FYI: Outreach was completed via telephone regarding the patient s recent [facility] ED visit. Member denies any concerning symptoms or current medical or social needs. The patient was encouraged to contact their primary care provider (PCP) to schedule a follow up appointment and ask any questions related to their ongoing care within 7 days of the ED visit. Patient stated understanding. Call completed by: RN Patient seen in ED: Out of Network ED Contact made with Patient: Yes The patient was identified by Name and Date of . Discussed Care with: patient Patient was seen in the Emergency Department (ED) Location: [facility] Date: 11/26/23 Reason for ED Visit: Syncopal episode @ home with witnessed loc ED Intervention: CT of head--neg Neuro eval New Medications: none Medication Changes: none Does patient understand medication changes: N/A Can patient afford medication changes: N/A Patient educated on worsening symptoms and when and where to seek additional care: Yes Patient Education Provided including treatment plan and new orders. Patient provided with appropriate counseling: Yes Based on head turbine operator, the following disposition is advised: No symptoms or symptoms present, not severe. Routed to: No Action Needed NOA Education Provided this Outreach: No Doing well since return home Pt lives with her sister who assists pt with ADL's Uses a walker Staying hydrated by drinking lots of fluids Denies dizziness or lightheadedness Declines pcp f/u @ this time Currently undergoing chemo q 3weeks for endo ca Nohemi Garcia RN December 02, 2023 11:34 AM documented in this encounter [facility] 11-25-2023 Telephone encounter Note CYCLE 1/DAY 1 POST TREATMENT CALL Today's date: November 25, 2023 Treatment Regimen: Carboplatin C1D1 Date: 11/23/23 Called patient to follow-up on symptom management. Spoke with patient SYMPTOM ASSESSMENT Neuro: None CV/Resp: None I have a normal cough but nothing extra" GI/: None Denies n/v/d Integument: None Activity: Patient reported no changes in energy level, energy level good Pain: No=0 (pain 0 on a scale of 0-10). Fever: No Chills: "I'm always cold, that's a normal thing", denies shaking chills. BP- discussed checking BP daily and keeping a BP log at home. Follow up with PCP on BP management and medication questions. Patient stated understanding. Any new referrals needed? No Reinforced CURRENT treatment education based on current and anticipated symptoms. Discussed port/line care and patient verbalizes understanding: Yes Patient instructed to contact office or after hours Hematology/Oncology fellow for: temperature >= 100.4; questions or concerns. Patient verbalized understanding of when to seek medical attention and after hours number protocol. Reena Peace RN [facility] 11-25-2023 Miscellaneous Notes CYCLE 1/DAY 1 POST TREATMENT CALL Today's date: November 25, 2023 Treatment Regimen: Carboplatin C1D1 Date: 11/23/23 Called patient to follow-up on symptom management. Spoke with patient SYMPTOM ASSESSMENT Neuro: None CV/Resp: None I have a normal cough but nothing extra" GI/: None Denies n/v/d Integument: None Activity: Patient reported no changes in energy level, energy level good Pain: No=0 (pain 0 on a scale of 0-10). Fever: No Chills: "I'm always cold, that's a normal thing", denies shaking chills. BP- discussed checking BP daily and keeping a BP log at home. Follow up with PCP on BP management and medication questions. Patient stated understanding. Any new referrals needed? No Reinforced CURRENT treatment education based on current and anticipated symptoms. Discussed port/line care and patient verbalizes understanding: Yes Patient instructed to contact office or after hours Hematology/Oncology fellow for: temperature >= 100.4; questions or concerns. Patient verbalized understanding of when to seek medical attention and after hours number protocol. Reena Peace RN documented in this encounter [facility] 11-24-2023 History of Present illness Narrative notified about patient's low BP's. Per Dr. Branham he wants patient to hold Valsartan but can continue Coreg, OK to treat. documented in this encounter [facility] 11-23-2023 Telephone encounter Note Spoke to Milagro. Informed her that patient was on dexamethasone prior to treatment because she was on paclitaxel. No need to take dexamethasone prior to carboplatin treatment. Reena Peace RN [facility] 11-23-2023 Miscellaneous Notes Spoke to Milagro. Informed her that patient was on dexamethasone prior to treatment because she was on paclitaxel. No need to take dexamethasone prior to carboplatin treatment. Reena Peace RN Milagro Barbosa called asking about patient taking dexamethasone prior to treatment scheduled for tomorrow. Please call Milagro and advise. documented in this encounter [facility] 11-23-2023 Telephone encounter Note Milagro Barbosa called asking about patient taking dexamethasone prior to treatment scheduled for tomorrow. Please call Milagro and advise. [facility] Work Phone: 11-19-2023 Telephone encounter Note ONCOLOGY PATIENT EDUCATION NOTE TOPIC: Chemotherapy, Medications: carboplatin patient here today for education for treatment of Endometrial Cancer Anticipated/Scheduled start date: 11/24/23 Patient declined chemo edu, patient has had carbo in the past. A folder was given to patient today at check out with new updated when to call magnet and after hour number. Reena Peace RN [facility] 11-19-2023 Miscellaneous Notes ONCOLOGY PATIENT EDUCATION NOTE TOPIC: Chemotherapy, Medications: carboplatin patient here today for education for treatment of Endometrial Cancer Anticipated/Scheduled start date: 11/24/23 Patient declined chemo edu, patient has had carbo in the past. A folder was given to patient today at check out with new updated when to call magnet and after hour number. 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 HPI: The patient is a 77-year-old female with a past medical history significant for hypertension, hyperlipidemia, GERD, type 2 diabetes (diagnosed about age 60; neuropathy), total knee replacement, former smoker and recent diagnosis of endometrial cancer. SURGERY & DATE: 07/24/2022 - Exam under anesthesia, total laparoscopic hysterectomy, bilateral salpingo-oophorectomy, sentinel lymph node mapping with excision of bilateral pelvic sentinel lymph nodes, and extensive lysis of adhesions. PATHOLOGY: A. Odum lymph node, right, biopsy: - Isolated tumor cells involving 1 of 2 lymph nodes; see comment. B. 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 C. Uterus with cervix, right and left fallopian tubes, and ovaries, hysterectomy and bilateral salpingo-oophorectomy: - Cervix: No significant pathologic abnormality. - Endomyometrium: Endometrial endometrioid carcinoma with squamous differentiation, FIGO grade 2, invading outer myometrium (18 mm out of 19 mm, 95%) and showing extensive/multifocal lymphovascular invasion and the microcystic, elongated, and fragmented (MELF) pattern of invasion; see comment and synoptic report. - Serosa: No significant pathologic abnormality. - Bilateral ovaries: Adhesions. - Right fallopian tube: Hematosalpinx, no definitive carcinoma. - Left fallopian tube: Metastatic carcinoma. Mismatch repair (MMR) interpretation: Deficient mismatch repair (dMMR) Results Mismatch Repair Protein Immunohistochemistry Results: MLH1: Loss of Nuclear Expression (subclonal/focal loss) PMS2: Loss of Nuclear Expression (subclonal/focal loss) MSH2: Normal/Intact Nuclear Expression MSH6: Normal/Intact Nuclear Expression IMAGING: CT ABD/PELVIS: 06/16/2022 IMPRESSION: 1. Findings compatible with cystitis. 2. Approximately 8.5 cm tubular/serpiginous cystic lesion in the right adnexal region suspect for hydrosalpinx though right ovarian cystic lesion not excluded with certainty. Mild infiltration of the surrounding fat raises suspicion for the possibility of superinfection. A few small bowel loops in the pelvis appear tethered around this right adnexal cystic lesion and a short segment of sigmoid colon abuts the posterior aspect of this right adnexal lesion. 3. Small volume pelvic free fluid. 4. Heterogeneous appearance of the uterus potentially related to fibroids. Further evaluation with dedicated pelvic ultrasound would be of value. CXR: 07/22/2022 IMPRESSION: Left basilar mild atelectasis. TUMOR BOARD: Management Options: -Recommend adjuvant treatment with systemic therapy, carbo/taxol +/- pembrolizumab -Referral to genetics Per initial consultation here: No vaginal discharge or bleeding. Bowels moving regularly. Good appetite. Pain is gone. Subjectively voiding to completion. Fingertip and toes numb. Had it approximately 3 years. Orthostasis if stands quickly. Balance has been "off" for about 6 months. Used [employer] to come in from [employer]. Uses cane and walker in the home. Lives in basement of sister's house. Capable of all ADLs independently. Uses shower chair. She and sister share cooking. Drives. Low back pain can limit her walking--symptoms are consistent with spinal stenosis. Current therapy: 1) Paclitaxel and carboplatin and pembrolizumab. First 2 cycles without pembrolizumab. Had EGD. Results noted. ?Gastroparesis. Was admitted to [facility] 01/24 ago for urosepsis. Admitted 2 days. Glimepiride was held. Completed antibiotic Wednesday. Had no urinary symptoms. Family found her at the table acting disoriented. Previously saw carrier associate at [facility] for reduced EF. Started on Jaurdiance. Presents for ongoing oncologic management. Interim history: She was admitted in August of her hypoxemic/hypercapnic respiratory failure. Was in CHF. Continues living in a walkout basement and her sisters home. She has frequent orthostasis. Not able to do much in the kitchen so her sister has arranged for Meals on Wheels. However she can walk fairly well around the house with her walker. Neuropathy symptoms are no worse. Fingertips are involved. She does not cook for fear of burning herself. Numbness in the feet comes to just above the ankles. No chest pain. No palpitation or sensation of tachycardia. Has oxygen since the time of discharge from [facility]. Uses it at night all the time. Not so much during the day unless she is walking around the house. Appetite has been normal. No abdominal pain. Bowels have been working regularly with formed stools. She has occasional diarrhea. Not daily. Able to void her bladder well. PMH, medications and allergies personally reviewed by me today. Any changes documented in appropriate section. PHYSICAL EXAM: Vitals: Blood pressure 123/64, pulse 79, temperature 36.9 C (98.5 F), temperature source Temporal, weight 130.6 kg (288 lb), SpO2 93%. Well-appearing and in no acute distress. EYES: Sclerae are anicteric bilaterally. LYMPHATIC: There is no palpable cervical or supraclavicular, adenopathy. RESPIRATORY: Inspiratory breath sounds are of diminished intensity in all thompson. No rales, wheezes or rhonchi. CARDIOVASCULAR: Rhythm is regular. ABDOMEN: The abdomen is nondistended. 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 -KPS is 60%. -Significant comorbid conditions including type 2 diabetes with pre-existing sensory neuropathy. She had impaired gait and mobility from spinal stenosis as well. Nonetheless she stood to benefit significantly from adjuvant therapy with carboplatin, paclitaxel and pembrolizumab based on the reported results of the NRG-GY018 trial. -Pembrolizumab was added with cycle #3. Received 5 cycles. Therapy held following due to worsening neuropathy and general decline. -Diagnosed with immunotherapy induced cardiomyopathy. Frequent orthostasis. -Neuropathy stable. -I reviewed the PET scan images and results with her and her sister. Biopsy was performed yesterday. Results are pending but in the interest of starting therapy in a timely fashion I recommended single agent treatment with carboplatin. She tolerated that drug well initially. I believe the Taxol contributed to her neuropathy more than the carboplatin. Explained the goals of care are potential prolongation of survival. Explained the disease is not curable. Strategy will be single agent sequential chemotherapy pending her tolerance and response. -I discussed the logistics, potential risks (including but not limited to cytopenias, exacerbation of neuropathy, nausea vomiting, diarrhea, hypomagnesemia, infections and the small potential for as a consequence of severe toxicity/complications of therapy), benefits and alternatives, as well as the personnel involved in the administration of carboplatin. I answered her questions in detail and she verbalized understanding and agreed with the recommended therapy. Please see the electronic consent document for details of doses and schedule. -Anemia with borderline macrocytic indices. Plan: -CBC/CMP/Mg/TSH/B12/serum folate/hep remote panel today. -Begin carboplatin once biopsy finalized. -CBC/CMP/magnesium for cycle #2. -CT scan following cycle #3. Portions of this documentation were copied and pasted from previous office visit notes in order to provide a cohesive continuity of the history. The note has been reviewed and edited and updated as necessary. I spent a total of 35 minutes on the date of the service which included preparing to see the patient, [id number] patient care, completing clinical documentation, obtaining and/or reviewing separately obtained history, performing a medically appropriate examination, counseling and educating the patient/family/caregiver, ordering medications, tests, or procedures, communicating with other HCPs (not separately reported), and communicating results to the patient/family/caregiver. Nora Branham DO documented in this encounter [facility] 11-16-2023 Telephone encounter Note Spoke to pt and scheduled biopsy for 11/18/23. [facility] 11-16-2023 Miscellaneous Notes Spoke to pt and scheduled biopsy for 11/18/23. RADIOLOGIST REQUEST / APPROVAL FORM STAFF RADIOLOGIST: Abby PROCEDURE TO BE DONE UNDER: CT PROCEDURE REQUESTED: CORE biopsy requested of a right lower lobe subpleural FDG avid nodule which may be pleural-based. PROCEDURE: Approved TIME SLOT NEEDED: 1 Hour NOTES: Please check CBC and INR prior to the procedure (which I have ordered). SPECIAL LABS/ PROCESSING: None. Pre-procedure labs: CBC: ordered INR: ordered COVID: not needed SIR Bleeding risk category for this procedure: Percutaneous lung/pleural nodule biopsy intermediate-high risk. Reference from [facility] Hot Shot: https://ccf.[email or web address]/dotNet/ documents/?medzv=50733 STAFF SIGNATURE: John Guaman MD DATE: November 12, 2023 TIME: 2:09 PM BX. COORDINATOR INFORMATION LAB RESULTS: PT INR (no units) Date Value 05/14/2011 1.7 No results found for: "APTT" Platelet Count (k/uL) Date Value 09/02/2023 138 03/28/2020 215 Current Outpatient Medications Medication Sig DULoxetine (CYMBALTA) 60 mg capsule Take 1 capsule by mouth once daily amitriptyline (ELAVIL) 50 mg tablet Take 1 tablet by mouth daily at bedtime. triamcinolone acetonide (KENALOG) 0.1 % ointment Apply to affected area two times a day. gabapentin (NEURONTIN) 100 mg capsule Take 1 capsule by mouth two times a day for 180 days. furosemide (LASIX) 20 mg tablet Take 1 tablet by mouth once daily. carvedilol (COREG) 3.125 mg tablet Take 2 tablets by mouth two times a day with meals. glimepiride (AMARYL) 4 mg tablet Take 1 tablet by mouth two times a day with meals. atorvastatin (LIPITOR) 40 mg tablet TAKE 1 TABLET BY MOUTH ONCE DAILY AT BEDTIME FOR CHOLESTEROL valsartan (DIOVAN) 80 mg tablet Take 1 tablet by mouth two times a day. metFORMIN (GLUCOPHAGE) 500 mg tablet Take 2 tablets by mouth two times a day with meals. . Blood Pressure Monitor Take your blood pressure everyday and keep a log aspirin 81 mg cap Take 81 mg by mouth once daily. silver sulfADIAZINE (SILVADENE) 1 % cream Apply to affected area once daily. Magnesium Chloride (SLOW-MAG) 71.5 mg TbEC Take 1 tablet by mouth twice daily. lidocaine-prilocaine (EMLA) 2.5-2.5 % cream Apply to affected area as needed. acetaminophen (TYLENOL EXTRA STRENGTH) 500 mg tablet Take 2 tablets by mouth every 6 hours as needed for pain. Lancets lancets Test one time daily, Insulin Dep? No E11.9 DM 2 alcohol swabs (ALCOHOL PADS) Test one time daily, Insulin Dep? No E11.9 DM 2 blood sugar diagnostic (BLOOD GLUCOSE TEST) test strip Test one time daily, Insulin Dep? No E11.9 DM 2 dulaglutide (TRULICITY) 3 mg/0.5 mL pen injector Inject 3 mg subcutaneously one time a week. Patient Assistance Medication. No current facility-administered medications for this visit. ALLERGIES No Known Allergies FILMS SENT TO WORKSTATION: GUIDELINES FOR HOLDING ANTI-PLATELET AND ANTI- COAGULATION THERAPY: None on file NURSE SIGNATURE: Kathia Mckinney RN DATE: November 12, 2023 TIME: 8:48 AM RADIOLOGY CALL CENTER INTAKE CENTER REP: BRITTANIE EXT: NA DATE: 11/12/2023 TIME: 0835 TRACKING #. NA REQUESTING PERSON: Vicky Andino LPN PHONE/PAGER: [phone] REQUESTING STAFF: Nora Branham DO PHONE/PAGER: [phone] SPECIFICS OF THE REQUEST: (Please be as detailed as possible. If request is lymph node biopsy, specify LOCATION of the node if possible): biopsy right lower posterior pleural based lesion. (For example: biopsy liver mass or biopsy pelvic lymph node ) SPECIAL REQUESTS: TISSUE SAMPLE, LABWORK: Routine Evaluation -Fine needle aspiration (FNA), core biopsy, no preference, unsure, specific processing request for pathology (For example: send for ER, [place], HER2/[place] or possible lymphoma send in RPMI solution ) IS THIS REQUEST PART OF A RESEARCH PROTOCOL: No IF YES: List specifics of request and name/contact number of research coordinator and primary physician. MEDICAL DIAGNOSIS: history of endometrial cancer, secondary malignancy of iliac lymph nodes. (For example: history of breast cancer with liver mass or history of lymphoma ) TYPE AND DATE OF THE EXAM THAT IS THE BASIS OF THE REQUEST: PET scan 11/09/2023. (Note: Requests for "random" organ biopsies, specifically liver and kidney random biopsies do not need imaging. ALL OTHER CASES NEED IMAGING TO EVALUATE APPROPRIATENESS/FEASIBILITY OF THE REQUEST) IMAGING: [facility] (If the imaging was obtained outside the [facility] system, then it needs to be submitted for review prior to approval.) Note to all persons requesting biopsies: All biopsy requests will be scheduled as quickly as possible, based on the clinical urgency, availability of appointment times, the need to hold anti-thrombolytic therapy (aspirin, blood thinners) and the patient s schedule, including the need for an available crew truck driver. If a percutaneous biopsy or drainage is not felt to be safe or an alternative method for establishing a diagnosis is possible, this will be discussed directly with the requesting physician. documented in this encounter [facility] 11-16-2023 Telephone encounter Note Spoke with patient and scheduled. Patient is asking Dr. Branham to explain the PET results during that visit. Roseann Ignacio [facility] 11-16-2023 Miscellaneous Notes Spoke with patient and scheduled. Patient is asking Dr. Branham to explain the PET results during that visit. Roseann Ignacio Patient and sister are aware of all information. Biopsy request triaged to [facility]. PSS- please contact patient to schedule OV with Dr. Branham as directed below. Vicky Andino LPN Message left for patient to contact office for all information. Biopsy request triaged to [facility]. Vicky Andino LPN Can let her know results of PET scan and schedule for biopsy at [facility] as soon as able. OV with me in the next week or two--can be before biopsy if scheduling works out that way. Nora Branham DO Dr. Branham please review PET scan done yesterday ordered by Pulm. Thank you. Tamara Mari APRN.DIRECTOR MARKETING documented in this encounter [facility] 11-12-2023 Telephone encounter Note RADIOLOGIST REQUEST / APPROVAL FORM STAFF RADIOLOGIST: Abby PROCEDURE TO BE DONE UNDER: CT PROCEDURE REQUESTED: CORE biopsy requested of a right lower lobe subpleural FDG avid nodule which may be pleural-based. PROCEDURE: Approved TIME SLOT NEEDED: 1 Hour NOTES: Please check CBC and INR prior to the procedure (which I have ordered). SPECIAL LABS/ PROCESSING: None. Pre-procedure labs: CBC: ordered INR: ordered COVID: not needed SIR Bleeding risk category for this procedure: Percutaneous lung/pleural nodule biopsy intermediate-high risk. Reference from [facility] Hot Shot: [email or web address]/ documents/?[email or web address] STAFF SIGNATURE: John Guaman MD DATE: November 12, 2023 TIME: 2:09 PM [facility] 11-12-2023 Telephone encounter Note Patient and sister are aware of all information. Biopsy request triaged to [facility]. PSS- please contact patient to schedule OV with Dr. Branham as directed below. Vicky Andino LPN [facility] 11-12-2023 Telephone encounter Note BX. COORDINATOR INFORMATION LAB RESULTS: PT INR (no units) Date Value 05/14/2011 1.7 No results found for: "APTT" Platelet Count (k/uL) Date Value 09/02/2023 138 03/28/2020 215 Current Outpatient Medications Medication Sig DULoxetine (CYMBALTA) 60 mg capsule Take 1 capsule by mouth once daily amitriptyline (ELAVIL) 50 mg tablet Take 1 tablet by mouth daily at bedtime. triamcinolone acetonide (KENALOG) 0.1 % ointment Apply to affected area two times a day. gabapentin (NEURONTIN) 100 mg capsule Take 1 capsule by mouth two times a day for 180 days. furosemide (LASIX) 20 mg tablet Take 1 tablet by mouth once daily. carvedilol (COREG) 3.125 mg tablet Take 2 tablets by mouth two times a day with meals. glimepiride (AMARYL) 4 mg tablet Take 1 tablet by mouth two times a day with meals. atorvastatin (LIPITOR) 40 mg tablet TAKE 1 TABLET BY MOUTH ONCE DAILY AT BEDTIME FOR CHOLESTEROL valsartan (DIOVAN) 80 mg tablet Take 1 tablet by mouth two times a day. metFORMIN (GLUCOPHAGE) 500 mg tablet Take 2 tablets by mouth two times a day with meals. . Blood Pressure Monitor Take your blood pressure everyday and keep a log aspirin 81 mg cap Take 81 mg by mouth once daily. silver sulfADIAZINE (SILVADENE) 1 % cream Apply to affected area once daily. Magnesium Chloride (SLOW-MAG) 71.5 mg TbEC Take 1 tablet by mouth twice daily. lidocaine-prilocaine (EMLA) 2.5-2.5 % cream Apply to affected area as needed. acetaminophen (TYLENOL EXTRA STRENGTH) 500 mg tablet Take 2 tablets by mouth every 6 hours as needed for pain. Lancets lancets Test one time daily, Insulin Dep? No E11.9 DM 2 alcohol swabs (ALCOHOL PADS) Test one time daily, Insulin Dep? No E11.9 DM 2 blood sugar diagnostic (BLOOD GLUCOSE TEST) test strip Test one time daily, Insulin Dep? No E11.9 DM 2 dulaglutide (TRULICITY) 3 mg/0.5 mL pen injector Inject 3 mg subcutaneously one time a week. Patient Assistance Medication. No current facility-administered medications for this visit. ALLERGIES No Known Allergies FILMS SENT TO WORKSTATION: GUIDELINES FOR HOLDING ANTI-PLATELET AND ANTI- COAGULATION THERAPY: None on file NURSE SIGNATURE: Kathia Mckinney RN DATE: November 12, 2023 TIME: 8:48 AM [facility] 11-12-2023 Telephone encounter Note Message left for patient to contact office for all information. Biopsy request triaged to [facility]. Vicky Andino LPN [facility] 11-12-2023 Telephone encounter Note RADIOLOGY CALL CENTER INTAKE CENTER REP: BRITTANIE EXT: NA DATE: 11/12/2023 TIME: 834 TRACKING #. NA REQUESTING PERSON: Vicky Andino LPN PHONE/PAGER: [phone] REQUESTING STAFF: Nora Branham DO PHONE/PAGER: [phone] SPECIFICS OF THE REQUEST: (Please be as detailed as possible. If request is lymph node biopsy, specify LOCATION of the node if possible): biopsy right lower posterior pleural based lesion. (For example: biopsy liver mass or biopsy pelvic lymph node ) SPECIAL REQUESTS: TISSUE SAMPLE, LABWORK: Routine Evaluation -Fine needle aspiration (FNA), core biopsy, no preference, unsure, specific processing request for pathology (For example: send for ER, [place], HER2/[place] or possible lymphoma send in RPMI solution ) IS THIS REQUEST PART OF A RESEARCH PROTOCOL: No IF YES: List specifics of request and name/contact number of research coordinator and primary physician. MEDICAL DIAGNOSIS: history of endometrial cancer, secondary malignancy of iliac lymph nodes. (For example: history of breast cancer with liver mass or history of lymphoma ) TYPE AND DATE OF THE EXAM THAT IS THE BASIS OF THE REQUEST: PET scan 11/09/2023. (Note: Requests for "random" organ biopsies, specifically liver and kidney random biopsies do not need imaging. ALL OTHER CASES NEED IMAGING TO EVALUATE APPROPRIATENESS/FEASIBILITY OF THE REQUEST) IMAGING: [facility] (If the imaging was obtained outside the [facility] system, then it needs to be submitted for review prior to approval.) Note to all persons requesting biopsies: All biopsy requests will be scheduled as quickly as possible, based on the clinical urgency, availability of appointment times, the need to hold anti-thrombolytic therapy (aspirin, blood thinners) and the patient s schedule, including the need for an available crew truck driver. If a percutaneous biopsy or drainage is not felt to be safe or an alternative method for establishing a diagnosis is possible, this will be discussed directly with the requesting physician. [facility] 11-12-2023 Telephone encounter Note Can let her know results of PET scan and schedule for biopsy at [facility] as soon as able. OV with me in the next week or two--can be before biopsy if scheduling works out that way. Nora Branham DO [facility] 11-10-[address] Branham please review PET scan done yesterday ordered by Pulm. Thank you. Tamara Mari APRN.SOLO [facility] Work Phone: 11-09-2023 History of Present illness Narrative RADIOLOGY SERVICE PROGRESS NOTE SERVICE DATE: 11/09/2023 SERVICE TIME: 8:06 AM PATIENT IDENTITY VERIFICATION COMPLETED USING TWO (2) STANDARD IDENTIFIERS: Name and Date of confirmed by patient verbally FALL SCREENING: Has the patient had 2 falls in the last year or 1 fall with injury or currently using an Ambulatory Assistive Device (Walker, Cane, Wheelchair, Crutches, etc.)? Yes, Patient High Risk for Falls What interventions were put in place to prevent falls during this visit? Offered Assistance with Transfers/Clothing and Increased Observations by Caregivers PATIENT GENDER DATA: .female ALLERGIES: NA MEDICATIONS REVIEWED: Not applicable PATIENT RELEVANT IMPLANT DATA REVIEWED: Not Applicable PATIENT PRESENTS WITH AN IMPLANTABLE OR ATTACHED KENNEL STAFF MEMBER: No CREATININE: Creatinine Date Value Ref Range Status 09/02/2023 1.03 (H) 0.58 - 0.96 mg/dL Final 09/01/2023 1.00 (H) 0.58 - 0.96 mg/dL Final 08/31/2023 0.97 (H) 0.58 - 0.96 mg/dL Final Estimated Glomerular Filtration Rate Date Value Ref Range Status 09/02/2023 56 (L) >=60 mL/min/1.73m Final Comment: Estimated Glomerular Filtration Rate (eGFR) is calculated using the 2020 CKD-EPI creatinine equation. This equation utilizes serum creatinine, sex, and age as parameters. The creatinine assay has traceable calibration to isotope dilution-mass spectrometry. Refer to KDIGO guidelines for clinical interpretation. In patients with unstable renal function, e.g. those with acute kidney injury, the eGFR may not accurately reflect actual GFR. eGFR- Date Value Ref Range Status 03/28/2020 >60 Final P.O.C.T. RESULTS: N/A November 09, [address] PERFORMED: No IV SITE: Ambulatory: NM only - direct IV injection in the Left hand POST EXAM PIV STATUS: Discontinued PROCEDURE TYPE: NM INJECT: PET/CT BODY SCAN. 19.8 mCi F18 FDG. No other medications given.. ADMINISTRATION TIME: 0758 PATIENT DISCHARGED TO: Ambulatory patient, left [place] department area. A Diagnostic radioactive procedure has taken place, with no further precautions necessary other than routine body substance precautions. More information regarding radiation safety can be found using this link: [email or web address] %[email or web address] SIGNATURE: JACOBY Scott) PATIENT NAME: Pricila Hooker DATE: November 09, 2023 TIME: 8:06 AM PAGER/CONTACT #: documented in this encounter [facility] 11-09-2023 Note HNO ID: [id number] Author: OTTO MEDRANO RT (R) Service: Nuclear Medicine Author Type: Technologist Type: Progress Notes Filed: 11/09/2023 08:06 Note Text: RADIOLOGY SERVICE PROGRESS NOTE SERVICE DATE: 11/09/2023 SERVICE TIME: 8:06 AM PATIENT IDENTITY VERIFICATION COMPLETED USING TWO (2) STANDARD IDENTIFIERS: Name and Date of confirmed by patient verbally FALL SCREENING: Has the patient had 2 falls in the last year or 1 fall with injury or currently using an Ambulatory Assistive Device (Walker, Cane, Wheelchair, Crutches, etc.)? Yes, Patient High Risk for Falls What interventions were put in place to prevent falls during this visit? Offered Assistance with Transfers/Clothing and Increased Observations by Caregivers PATIENT GENDER DATA: .female ALLERGIES: NA MEDICATIONS REVIEWED: Not applicable PATIENT RELEVANT IMPLANT DATA REVIEWED: Not Applicable PATIENT PRESENTS WITH AN IMPLANTABLE OR ATTACHED KENNEL STAFF MEMBER: No CREATININE: Creatinine Date Value Ref Range Status 09/02/2023 1.03 (H) 0.58 - 0.96 mg/dL Final 09/01/2023 1.00 (H) 0.58 - 0.96 mg/dL Final 08/31/2023 0.97 (H) 0.58 - 0.96 mg/dL Final Estimated Glomerular Filtration Rate Date Value Ref Range Status 09/02/2023 56 (L) >=60 mL/min/1.73m? Final Comment: Estimated Glomerular Filtration Rate (eGFR) is calculated using the 2020 CKD-EPI creatinine equation. This equation utilizes serum creatinine, sex, and age as parameters. The creatinine assay has traceable calibration to isotope dilution-mass spectrometry. Refer to KDIGO guidelines for clinical interpretation. In patients with unstable renal function, e.g. those with acute kidney injury, the eGFR may not accurately reflect actual GFR. eGFR- Date Value Ref Range Status 03/28/2020 >60 Final P.O.C.T. RESULTS: N/A November 09, [address] PERFORMED: No IV SITE: Ambulatory: NM only - direct IV injection in the Left hand POST EXAM PIV STATUS: Discontinued PROCEDURE TYPE: NM INJECT: PET/CT BODY SCAN. 19.8 mCi F18 FDG. No other medications given.. ADMINISTRATION TIME: 0758 PATIENT DISCHARGED TO: Ambulatory patient, left [place] department area. A Diagnostic radioactive procedure has taken place, with no further precautions necessary other than routine body substance precautions. More information regarding radiation safety can be found using this link: [email or web address] 20Diagnostic%20Nuclear%20Medicine% 20Procedures.pdf SIGNATURE: RT Sonia(R) PATIENT NAME: Pricila Hooker DATE: November 09, 2023 TIME: 8:06 AM PAGER/CONTACT #: [facility] 11-09-2023 Telephone encounter Note Prescription Refill Information The patient has been identified by name and date of : Yes Caregiver verified no other encounters exist for this prescription request: Yes Caregiver confirmed with patient/requestor that no other refills are due, in the near future, with this provider at this time: Yes The last office visit in the department: 11/03/2023 Does the patient have a future office visit with this provider/department: Yes Requested Prescriptions Pending Prescriptions Disp Refills DULoxetine (CYMBALTA) 60 mg capsule [Pharmacy Med Name: DULoxetine HCl 60 MG Oral Capsule Delayed Release Particles] 30 capsule 0 Sig: Take 1 capsule by mouth once daily Mary Romero LPN November 09, 2023 7:30 AM [facility] 11-09-2023 Miscellaneous Notes Prescription Refill Information The patient has been identified by name and date of : Yes Caregiver verified no other encounters exist for this prescription request: Yes Caregiver confirmed with patient/requestor that no other refills are due, in the near future, with this provider at this time: Yes The last office visit in the department: 11/03/2023 Does the patient have a future office visit with this provider/department: Yes Requested Prescriptions Pending Prescriptions Disp Refills DULoxetine (CYMBALTA) 60 mg capsule [Pharmacy Med Name: DULoxetine HCl 60 MG Oral Capsule Delayed Release Particles] 30 capsule 0 Sig: Take 1 capsule by mouth once daily Mary Romero LPN November 09, 2023 7:30 AM documented in this encounter [facility] 11-08-2023 Telephone encounter Note The following approved medication requests have been transmitted electronically. Requested Prescriptions Pending Prescriptions Disp Refills amitriptyline (ELAVIL) 50 mg tablet 30 tablet 5 Sig: Take 1 tablet by mouth daily at bedtime. Supa Matute APRN.CNP [facility] 11-08-2023 Miscellaneous Notes The following approved medication requests have been transmitted electronically. Requested Prescriptions Pending Prescriptions Disp Refills amitriptyline (ELAVIL) 50 mg tablet 30 tablet 5 Sig: Take 1 tablet by mouth daily at bedtime. Supa Matute APRN.CNP Prescription Refill Information The patient has been identified by name and date of : Yes Caregiver verified no other encounters exist for this prescription request: Yes Caregiver confirmed with patient/requestor that no other refills are due, in the near future, with this provider at this time: Yes The last office visit in the department: 09-10-23 Does the patient have a future office visit with this provider/department: Yes Requested Prescriptions Pending Prescriptions Disp Refills amitriptyline (ELAVIL) 50 mg tablet 30 tablet 5 Sig: Take 1 tablet by mouth daily at bedtime. Kizzy Enamorado November 08, 2023 9:58 AM documented in this encounter [facility] 11-08-2023 Telephone encounter Note Prescription Refill Information The patient has been identified by name and date of : Yes Caregiver verified no other encounters exist for this prescription request: Yes Caregiver confirmed with patient/requestor that no other refills are due, in the near future, with this provider at this time: Yes The last office visit in the department: 09-10-23 Does the patient have a future office visit with this provider/department: Yes Requested Prescriptions Pending Prescriptions Disp Refills amitriptyline (ELAVIL) 50 mg tablet 30 tablet 5 Sig: Take 1 tablet by mouth daily at bedtime. Kizzy Enamorado November 08, 2023 9:58 AM [facility] 11-03-2023 History of Present illness Narrative Chief Complaint Patient presents with: Established Patient HPI: Pricila Hooker is a 77 year old female who presents here today for follow up endometrial cancer. Per Dr. Branham's previous note: hypertension, hyperlipidemia, GERD, type 2 diabetes (diagnosed about age 60; neuropathy), total knee replacement, former smoker and recent diagnosis of endometrial cancer. SURGERY & DATE: 07/24/2022 - Exam under anesthesia, total laparoscopic hysterectomy, bilateral salpingo-oophorectomy, sentinel lymph node mapping with excision of bilateral pelvic sentinel lymph nodes, and extensive lysis of adhesions. PATHOLOGY: A. Odum lymph node, right, biopsy: - Isolated tumor cells involving 1 of 2 lymph nodes; see comment. B. 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 C. Uterus with cervix, right and left fallopian tubes, and ovaries, hysterectomy and bilateral salpingo-oophorectomy: - Cervix: No significant pathologic abnormality. - Endomyometrium: Endometrial endometrioid carcinoma with squamous differentiation, FIGO grade 2, invading outer myometrium (18 mm out of 19 mm, 95%) and showing extensive/multifocal lymphovascular invasion and the microcystic, elongated, and fragmented (MELF) pattern of invasion; see comment and synoptic report. - Serosa: No significant pathologic abnormality. - Bilateral ovaries: Adhesions. - Right fallopian tube: Hematosalpinx, no definitive carcinoma. - Left fallopian tube: Metastatic carcinoma. Mismatch repair (MMR) interpretation: Deficient mismatch repair (dMMR) Results Mismatch Repair Protein Immunohistochemistry Results: MLH1: Loss of Nuclear Expression (subclonal/focal loss) PMS2: Loss of Nuclear Expression (subclonal/focal loss) MSH2: Normal/Intact Nuclear Expression MSH6: Normal/Intact Nuclear Expression IMAGING: CT ABD/PELVIS: 06/16/2022 IMPRESSION: 1. Findings compatible with cystitis. 2. Approximately 8.5 cm tubular/serpiginous cystic lesion in the right adnexal region suspect for hydrosalpinx though right ovarian cystic lesion not excluded with certainty. Mild infiltration of the surrounding fat raises suspicion for the possibility of superinfection. A few small bowel loops in the pelvis appear tethered around this right adnexal cystic lesion and a short segment of sigmoid colon abuts the posterior aspect of this right adnexal lesion. 3. Small volume pelvic free fluid. 4. Heterogeneous appearance of the uterus potentially related to fibroids. Further evaluation with dedicated pelvic ultrasound would be of value. CXR: 07/22/2022 IMPRESSION: Left basilar mild atelectasis. TUMOR BOARD: Management Options: -Recommend adjuvant treatment with systemic therapy, carbo/taxol +/- pembrolizumab -Referral to genetics Per initial consultation here: No vaginal discharge or bleeding. Bowels moving regularly. Good appetite. Pain is gone. Subjectively voiding to completion. Fingertip and toes numb. Had it approximately 3 years. Orthostasis if stands quickly. Balance has been "off" for about 6 months. Used WC to come in from [facility]. Uses cane and walker in the home. Lives in basement of sister's house. Capable of all ADLs independently. Uses shower chair. She and sister share cooking. Drives. Low back pain can limit her walking--symptoms are consistent with spinal stenosis. Previous therapy: 1) Paclitaxel and carboplatin and pembrolizumab. First 2 cycles without pembrolizumab. Pt. here today with family member. Appetite:"Good." Energy level:"Ok." Denies fevers. Resp:denies cough or sob Cardiac:denies chest pain/palpitations GI:denies abd pain, n/v, moving bowels regularly :denies dysuria/hematuria Extrem:chronic knee pain b/l-both replaced Neuro:+neuropathy to hands/feet Skin:denies rashes Heme:denies bleeding The ROS is otherwise negative. Past medical history, appointments, medications, allergies reviewed. No changes. EXAM: BP 96/59 Pulse 72 Temp 36.2 C (97.1 F) (Temporal) Wt 128 kg (282 lb 3 oz) SpO2 90% BMI 43.29 kg/m APPEARANCE Well appearing, alert, in no acute distress, well-hydrated, well nourished. HEART RRR with normal S1 and S2, no murmurs LUNG clear to auscultation LYMPH NODES No cervical lymphadenopathy, No supraclavicular lymphadenopathy, and No axillary lymphadenopathy. ABDOMEN obese, bowel sounds normoactive, exam done in w/c NEURO Awake, alert and oriented x 3, using w/c, and No involuntary motions. SKIN Skin color, texture, turgor normal, no suspicious rashes or lesions RADIOLOGY: CT chest 10/27/23: IMPRESSION: 1. There is a new 2.2 x 1.3 cm right posterior pleural-based nodules. Other pulmonary nodules appear unchanged. 2. Trace right pleural effusion 3. No new thoracic lymphadenopathy ASSESSMENT/PLAN: 1. Endometrial cancer (HCC) - ICD9: 182.0, ICD10: C54.1 (primary diagnosis) 2. 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 Per Dr. Branham's previous note: -KPS is 70-80%. -Significant comorbid conditions including type 2 diabetes with pre-existing sensory neuropathy. She had impaired gait and mobility from spinal stenosis as well. Nonetheless she stood to benefit significantly from adjuvant therapy with carboplatin, paclitaxel and pembrolizumab based on the reported results of the [id number] trial. -Pembrolizumab was added with cycle #3. Received 5 cycles. Therapy held following due to worsening neuropathy and general decline. -Completed sixth cycle of carboplatin and Taxol without pembrolizumab. Neuropathy no worse. 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 -I personally reviewed CT images and again with patient and independently verified and agreed with the radiologist's findings. Discussed process for determining if the largest, 10 mm nodule in the right upper lobe can be biopsied. -New left hip pain. -Worsening neuropathy was positive symptoms. Plan: -Request for imaging guided biopsy lung nodule submitted. -Plain film x-ray left hip today. -Rx Cymbalta 60 mg daily. -Follow-up plan to be determined once above completed. -Follow-up with cardiology [facility]. - No concerning findings on exam. - Reviewed CT chest with pt. and family member. New lung nodule. - PET scan scheduled for next Wednesday. - Follow up with Dr. Branham pending above. - Pt. aware to call office any questions/concerns. Discussed case with Dr. Branham who agrees with treatment plan. The patient indicates understanding of these issues and agrees with the plan. All documentation from previous visit of 08/24/23-Dr. Branham was copied and pasted, documentation has been reviewed and edited as necessary for today's visit. Tamara Mari APRN.DIRECTOR MARKETING documented in this encounter [facility] 10-27-2023 History of Present illness Narrative Radiology Service Progress Note PATIENT NAME: Pricila Hooker DATE OF SERVICE: October 27, 2023 TIME: 12:53 PM PATIENT IDENTITY VERIFICATION COMPLETED USING TWO (2) IDENTIFIERS: Name and Date of confirmed by patient verbally. FALL SCREENING: Has the patient had 2 falls in the last year or 1 fall with injury or currently using an Ambulatory Assistive Device (Walker, Cane, Wheelchair, Crutches, etc.)? No PATIENT GENDER DATA: Female. status: : No status: NO. PATIENT RELEVANT IMPLANT DATA REVIEWED: Yes PATIENT PRESENTS WITH AN IMPLANTABLE OR ATTACHED KENNEL STAFF MEMBER: No RADIOLOGY DEPARTMENT: CT; Exam(s) Completed: Chest PERIPHERAL IV DATA: Not applicable SIGNED BY: RT Adi(R) October 27, 2023 12:53 PM documented in this encounter [facility] 10-14-2023 History of Present illness Narrative Deferred Pt noted on [employer] report with a PHQ-9 score of 10. Pt completed questionnaire prior to a Cardiology appointment.. The PHQ-9 score is noted in the Cardiology note on 10/13/23. REGINALDO Mccabe Goals of Care Advance Directives are on file. SIGNATURE: JUAN Mccabe PATIENT NAME: Pricila Hooker DATE: October 14, 2023 TIME: 9:41 AM PAGER/CONTACT #: documented in this encounter [facility] 10-14-2023 History of Present illness Narrative POPULATION HEALTH NAVIGATION OUTREACH Action/ Patient is on [facility] CURRENT ROSTER Workbench list for below and needs appointment to address: Cervical Cancer Screening Diabetic Foot Exam Urine Albumin:Creatinine Ratio LDL Cholesterol HbA1C Advance Directive Discussion Hemoglobin A1C (%) Date Value 07/22/2022 8.0 07/11/2020 9.7 Patient due for: Medicare Annual Wellness Visit HBA1C Pharmacy consult Attempted to reach patient, phone picked up then disconnected - no voicemail, unable to leave message. Sent [employer] message. No HCC Upcoming OV converted per Roff protocol to AWV. Updated notes to address due care gap and HCC gap closure Reason for Outreach Care Gap/HCC or Scheduling Wellness Visits Care Gaps due: Medicare Annual Wellness Visit HBA1C Patient Contacted: Unable or unnecessary to reach patient: Unable to leave message MyChart message sent Updated appointment notes Navigation Signature: Carey Lanier MA October 14, 2023 7:31 AM documented in this encounter [facility] 10-13-2023 History of Present illness Narrative [facility] [place] Department of Cardiovascular Medicine VIRTUAL VIDEO VISIT ESTABLISHED OUTPATIENT VISIT SERVICE DATE: 10/13/2023 Patient: Pricila Hooker SERVICE TIME: 3:25 PM : 1945 This is a virtual video visit. It required patient-provider interaction for the medical decision making as documented below. Pricila Hooker has consented to this video encounter. I have communicated my name and active licensure. The patient's identity and physical location were verified at the time of this visit. Either the patient or their legal technical service representative has been informed of the risks and benefits of -- and alternatives to -- treatment through a remote evaluation and consents to proceed with the evaluation remotely. Pricila Hooker is a 77 year old female seen for follow-up. 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 She was diagnosed with endometrial cancer, had adjuvant treatment with carboplatin, paclitaxel and pembrolizumab. While at another hospital, noted to have LVEF 45% while on pembrolizumab. At that time, she was not treated with steroids due to reported hyperglycemia. No evidence of ischemia on MPI. Ziopatch showed rare ectopic beats all < 1.0%. Attempted to start her on GDMT but limited by hypotension so lisinopril was discontinued. She had 2 UTI's while on jardiance, one of which required hospital admission for urosepsis and lactic acidosis. Weight has been stable. No chest pain, palpitations, LE swelling. Prior smoking history. No alcohol or drug use Reported local radiation therapy for her endometrial cancer but no reported chest radiation. Had LHC done on 05/11/23 showing mild-mod non obstructive CAD. RHC showed low filling pressure and reduced CI. CMRI showed no evidence of LGE. LVEF 49% BP better controlled with current regimen Recent hospital admission for hypoxia. Was sent home on oxygen Has upcoming follow-up with pulmonary PAST MEDICAL HISTORY 01/04/2007: Acute cholecystitis No date: Arthritis No date: Benign neoplasm of colon No date: CHF (congestive heart failure) (HCC) No date: Diabetes mellitus without mention of complication No date: Endometrial cancer (HCC) No date: GERD (gastroesophageal reflux disease) No date: Hemorrhoids No date: Hypercholesteremia No date: Hypertension No date: Neuropathy No date: Obesity No date: Osteoarthritis of multiple joints PAST SURGICAL HISTORY No date: ABDOMINAL SURGERY HX 05/11/2011: ARTHRP KNE CONDYLE&PLATU MEDIAL&LAT COMPARTMENTS Comment: Knee replacement, total right 01/2011: ARTHRP KNE CONDYLE&PLATU MEDIAL&LAT COMPARTMENTS Comment: left No date: CATARACT EXTRACTION HX; Left 12/28/2007: COLONOSCOPY FLX DX W/COLLJ SPEC WHEN PFRMD Comment: Colonoscopy 06/17/2012: COLONOSCOPY FLX DX W/COLLJ SPEC WHEN PFRMD Comment: Colonoscopy 11/05/2017: COLONOSCOPY FLX DX W/COLLJ SPEC WHEN PFRMD Comment: Colonoscopy 11/25/2022: EGD W/O [facility] SPEC VARICIES INJ No date: EYE SURGERY HX No date: JOINT REPLACEMENT HX 01/04/2007: LAPS SURG CHOLECYSTECTOMY W/CHOLANGIOGRAPHY 07/24/2022: LAPS TOTAL HYSTERECT 250 GM/< W/RMVL TUBE/OVARY Comment: Exam under anesthesia, total laparoscopic hysterectomy, bilateral salpingo-oophorectomy, sentinel lymph node mapping with excision of bilateral pelvic sentinel lymph nodes, and extensive lysis of adhesions. 05/11/2023: PAST SURGICAL HISTORY OF; N/A Comment: hx of heart cath FAMILY HISTORY Problem Relation Age of Onset Heart Mother irregular heart rate Colon Cancer Mother Stroke Mother Heart Father from heart attack Colon Cancer Maternal Grandfather Social History Tobacco Use Smoking status: Former Packs/day: 0.50 Years: 20.00 Additional pack years: 0.00 Total pack years: 10.00 Types: Cigarettes Quit date: 11/05/1977 Years since quittin.9 Smokeless tobacco: Never Vaping Use Vaping Use: Never used Substance Use Topics Alcohol use: No Drug use: No ALLERGIES No Known Allergies CURRENT MEDICATIONS triamcinolone acetonide (KENALOG) 0.1 % ointment Apply to affected area two times a day. gabapentin (NEURONTIN) 100 mg capsule Take 1 capsule by mouth two times a day for 180 days. furosemide (LASIX) 20 mg tablet Take 1 tablet by mouth once daily. carvedilol (COREG) 3.125 mg tablet Take 2 tablets by mouth two times a day with meals. DULoxetine (CYMBALTA) 60 mg capsule Take 1 capsule by mouth once daily. glimepiride (AMARYL) 4 mg tablet Take 1 tablet by mouth two times a day with meals. naproxen (NAPROSYN) 500 mg tablet Take 1 tablet by mouth two times a day as needed (pain/inflammation, take with food.). atorvastatin (LIPITOR) 40 mg tablet TAKE 1 TABLET BY MOUTH ONCE DAILY AT BEDTIME FOR CHOLESTEROL valsartan (DIOVAN) 80 mg tablet Take 1 tablet by mouth two times a day. metFORMIN (GLUCOPHAGE) 500 mg tablet Take 2 tablets by mouth two times a day with meals. . Blood Pressure Monitor Take your blood pressure everyday and keep a log aspirin 81 mg cap Take 81 mg by mouth once daily. amitriptyline (ELAVIL) 50 mg tablet take 1 tablet by mouth once daily at bedtime silver sulfADIAZINE (SILVADENE) 1 % cream Apply to affected area once daily. (Patient not taking: Reported on 08/30/2023) Magnesium Chloride (SLOW-MAG) 71.5 mg TbEC Take 1 tablet by mouth twice daily. lidocaine-prilocaine (EMLA) 2.5-2.5 % cream Apply to affected area as needed. acetaminophen (TYLENOL EXTRA STRENGTH) 500 mg tablet Take 2 tablets by mouth every 6 hours as needed for pain. Lancets lancets Test one time daily, Insulin Dep? No E11.9 DM 2 alcohol swabs (ALCOHOL PADS) Test one time daily, Insulin Dep? No E11.9 DM 2 blood sugar diagnostic (BLOOD GLUCOSE TEST) test strip Test one time daily, Insulin Dep? No E11.9 DM 2 dulaglutide (TRULICITY) 3 mg/0.5 mL pen injector Inject 3 mg subcutaneously one time a week. Patient Assistance Medication. REVIEW OF SYSTEMS: GENERAL: Negative for: Weight loss or gain, Fever or Chills, Weakness and Sleep difficulties. HEENT: Negative for: Headache, Impaired Vision, Glasses, Hearing Impairment, Ringing in Ears, Nosebleeds, Poor dental care, Bleeding Gums, Dentures NECK: Negative for: Swelling, Pain, Stiffness RESPIRATORY: Negative for: Cough, Blood in Sputum, Shortness of breath, Wheezing, Apnea GASTROINTESTINAL: Negative for: Trouble swallowing, Heartburn, Change in bowel habits, Blood in stool, Dark black stools MUSCULOSKELETAL: Negative for: Muscle or joint pain, Stiffness , Joint swelling NEUROLOGIC/PSYCHIATRIC: Negative for: Weakness, Paralysis, Numbness, Tingling, Tremor, Nervousness, Depressed mood, Memory loss SKIN: Negative for: Rashes, Itching HEMATOLOGICAL/LYMPHATIC: Negative for: Easy bruising , Easy bleeding ENDOCRINE: Negative for: Heat or cold intolerance, Excessive sweating, Frequent urination, Frequent thirst PHYSICAL EXAMINATION: VIDEO EXAM: (if completed, performed via video enabled technology) No exam performed PATIENT ENTERED QUESTIONNAIRE SCORES ALERT: PHQ-9 Score: 10 indicates Moderate to Severe Depression 10/13/2023 05/25/2023 04/20/2023 PHQ-9 Score 10 13 12 08/24/2023 KEYANA - 2/7 SCORES KEYANA-2 Score 0 08/23/2023 04/20/2023 PROMIS Global Health - (T-Scores - the mean of general population = 50. 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 She has diagnosed endometrial cancer, had adjuvant treatment with carboplatin, paclitaxel and pembrolizumab. While at another hospital, noted to have LVEF 45% while on pembrolizumab. At that time, she was not treated with steroids due to reported hyperglycemia. No evidence of ischemia on MPI. Ziopatch showed rare ectopic beats all < 1.0%. She had 2 UTI's while on jardiance, one of which required hospital admission for urosepsis and lactic acidosis. 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 No evidence of LGE. LHC showed mild-mod non obstructive CAD. RHC showed low filling pressure and reduced CI. DM type 2 complicated by neuropathy, needs repeat HBA1C CAD - aspirin, statin HTN - uncontrolled Heart Failure specific medications (list current, note updates or changes, note prior intolerance): BB: Coreg 6.25mg BID ACEI/ARB/ARNI: Valsartan 80mg BID MRA: - SGLT2: Stop jardiance given recurrent UTI x2 in the past 2 months with septic shock Diuretic: - Digoxin: - Vasodilators: - Anti-arrhythmics: - Ivabradine: - Other anti-HTN: - Others: Aspirin, statin PLAN AND RECOMMENDATIONS: - Meds as above - Daily weight and BP check - Repeat labs next month Follow-up in 3 months vv I personally spent 35 minutes in total time involved in the management and care of this patient. Farshad Marie MD October 13, 2023 3:25 PM Answers submitted by the patient for this visit: Review of Systems Heart Failure (Submitted on 10/13/2023) Fever : No Night sweats: No Recent unintentional weight change: No Vision Disturbance: Yes Hearing Loss: No A cough: No Difficulty Breathing?: No Chest pain: No Leg Swelling: No Skipping or irregular heartbeats?: No Feel like passing out?: Yes Black tarry stools: No Nausea: No Diarrhea: No Swelling in your abdomen?: No Fill up quickly when you eat?: No Joint pain or stiffness: No A rash: No Dizziness: Yes Headaches: No documented in this encounter [facility] 09-28-2023 Telephone encounter Note Record ID: [id number] Patient name: Pricila Hooker Date: September 28, 2023 - 09:05 Administered by: SANG Protocol: -> Please open the most recently sent URL instead of this one. Thank you for choosing [facility]! Great! Now we are in a secure chat environment. Protecting your health information is important to us. Ok, let's get started. Please verify your name and date of . Please click on the button with your first name. -> Pricila Got it. On to the next question... Select the button with your last name. -> So Got it, thank you. Please enter your date of in MM/DD/YYYY format:(e.g., "03/19/1969" for Mar 19, 1969) -> 1945 Thank you for verifying your information. I'd like to ask you a few questions about how your recovery is going. One final check: have you experienced any new or worsening symptoms since your last response? -> No I'm glad to hear that. Thank you for your time and for allowing us to care for you. Please be sure to reach out to your provider for any further symptoms or needs. Please rate your satisfaction with the care and support you have received from us since you have been home: (scale 1-5; 1 worst and 5 best) -> 5 Please tell me what you liked best about your experience: -> Everyone was very good Please tell me what you liked least about your experience: -> Great! Now we are in a secure chat environment. Protecting your health information is important to us. Ok, let's get started. Please verify your name and date of . Please click on the button with your first name. -> Pricila Got it. On to the next question... Select the button with your last name. -> So Got it, thank you. Please enter your date of in MM/DD/YYYY format:(e.g., "03/19/1969" for Mar 19, 1969) -> 1945 Thank you for verifying your information. I'd like to ask you a few questions about how your recovery is going. One final check: have you experienced any new or worsening symptoms since your last response? -> No I'm glad to hear that. Thank you for your time and for allowing us to care for you. Please be sure to reach out to your provider for any further symptoms or needs. Please rate your satisfaction with the care and support you have received from us since you have been home: (scale 1-5; 1 worst and 5 best) -> 4 Please tell me what you liked best about your experience: -> The staff was very good . Please tell me what you liked least about your experience: -> fine [facility] 09-28-2023 Miscellaneous Notes Record ID: [id number] Patient name: Pricila Hooker Date: September 28, 2023 - 09:05 Administered by: SANG Protocol: -> Please open the most recently sent URL instead of this one. Thank you for choosing [facility]! Great! Now we are in a secure chat environment. Protecting your health information is important to us. Ok, let's get started. Please verify your name and date of . Please click on the button with your first name. -> Pricila Got it. On to the next question... Select the button with your last name. -> So Got it, thank you. Please enter your date of in MM/DD/YYYY format:(e.g., "03/19/1969" for Mar 19, 1969) -> 1945 Thank you for verifying your information. I'd like to ask you a few questions about how your recovery is going. One final check: have you experienced any new or worsening symptoms since your last response? -> No I'm glad to hear that. Thank you for your time and for allowing us to care for you. Please be sure to reach out to your provider for any further symptoms or needs. Please rate your satisfaction with the care and support you have received from us since you have been home: (scale 1-5; 1 worst and 5 best) -> 5 Please tell me what you liked best about your experience: -> Everyone was very good Please tell me what you liked least about your experience: -> Great! Now we are in a secure chat environment. Protecting your health information is important to us. Ok, let's get started. Please verify your name and date of . Please click on the button with your first name. -> Pricila Got it. On to the next question... Select the button with your last name. -> So Got it, thank you. Please enter your date of in MM/DD/YYYY format:(e.g., "03/19/1969" for Mar 19, 1969) -> 1945 Thank you for verifying your information. I'd like to ask you a few questions about how your recovery is going. One final check: have you experienced any new or worsening symptoms since your last response? -> No I'm glad to hear that. Thank you for your time and for allowing us to care for you. Please be sure to reach out to your provider for any further symptoms or needs. Please rate your satisfaction with the care and support you have received from us since you have been home: (scale 1-5; 1 worst and 5 best) -> 4 Please tell me what you liked best about your experience: -> The staff was very good . Please tell me what you liked least about your experience: -> fine documented in this encounter [facility] 09-20-2023 Telephone encounter Note Record ID: [id number] Patient name: Pricila Hooker Date: September 20, 2023 - 10:24 Administered by: SANG Protocol: -> Great! Now we are in a secure chat environment. Protecting your health information is important to us. Ok, let's get started. Please verify your name and date of . Please click on the button with your first name. -> Pricila Got it. On to the next question... Select the button with your last name. -> Hooker Got it, thank you. Please enter your date of in MM/DD/YYYY format:(e.g., "03/19/1969" for Mar 19, 1969) -> 1945 Thank you for verifying your information. I'd like to ask you a few questions about how your recovery is going. Have you noticed any new or worsening symptoms since your last check-in? -> No I'm glad to hear that. It can be normal to feel anxious or down during a time like this. Would you like to talk to a mental health professional about how you have been feeling? -> No [facility] 09-20-2023 Miscellaneous Notes Record ID: [id number] Patient name: Pricila Hooker Date: September 20, 2023 - 10:24 Administered by: SANG Protocol: -> Great! Now we are in a secure chat environment. Protecting your health information is important to us. Ok, let's get started. Please verify your name and date of . Please click on the button with your first name. -> Pricila Got it. On to the next question... Select the button with your last name. -> Hooker Got it, thank you. Please enter your date of in MM/DD/YYYY format:(e.g., "03/19/1969" for Mar 19, 1969) -> 1945 Thank you for verifying your information. I'd like to ask you a few questions about how your recovery is going. Have you noticed any new or worsening symptoms since your last check-in? -> No I'm glad to hear that. It can be normal to feel anxious or down during a time like this. Would you like to talk to a mental health professional about how you have been feeling? -> No documented in this encounter [facility] 09-15-2023 History of Present illness Narrative Images from the original note were not included. [facility] ESTABLISHED PATIENT OFFICE VISIT 09/15/2023 Patient Name: Pricila Hooker PRIMARY CARE PHYSICIAN: Vinh Van MD CHIEF COMPLAINT: CRF hypoxemic and hypercapnic, ALEXX /OHS (pending PSG), lung nodules, ex smoker (quit 1974), Morbid obesity, history of endometrial cancer status post hysterectomy 2022 HISTORY OF PRESENT ILLNESS: Ms. Hooker has been seen in the hospital as an inpatient for acute on chronic hypoxemic and hypercapnic respiratory failure secondary to CHF exacerbation. Today she feels better She continues to feel short of breath on exertion She does use 2 L of oxygen continuously no cough no sputum production Not using any inhalers PSG pending at [facility] chest 07/2023 NEW nodules -10 mm nodule right upper lobe (2:71). -9 mm nodule right middle lobe (2:177) increased in size from prior CT where measured 7 mm. -4 mm nodule right upper lobe (2:47). -4 mm nodule superior segment left lower lobe (2:81). -4 mm nodule left upper lobe (2:88). Transthoracic needle biopsy requested by Dr Branham could not be done. Social History Tobacco Use Smoking status: Former Packs/day: 0.50 Years: 20.00 Additional pack years: 0.00 Total pack years: 10.00 Types: Cigarettes Quit date: 11/05/1977 Years since quittin.8 Smokeless tobacco: Never Vaping Use Vaping Use: Never used Substance Use Topics Alcohol use: No Drug use: No ALLERGIES ALLERGIES No Known Allergies CURRENT OUTPATIENT MEDICATIONS triamcinolone acetonide (KENALOG) 0.1 % ointment Apply to affected area two times a day. gabapentin (NEURONTIN) 100 mg capsule Take 1 capsule by mouth two times a day for 180 days. furosemide (LASIX) 20 mg tablet Take 1 tablet by mouth once daily. carvedilol (COREG) 3.125 mg tablet Take 2 tablets by mouth two times a day with meals. DULoxetine (CYMBALTA) 60 mg capsule Take 1 capsule by mouth once daily. glimepiride (AMARYL) 4 mg tablet Take 1 tablet by mouth two times a day with meals. naproxen (NAPROSYN) 500 mg tablet Take 1 tablet by mouth two times a day as needed (pain/inflammation, take with food.). atorvastatin (LIPITOR) 40 mg tablet TAKE 1 TABLET BY MOUTH ONCE DAILY AT BEDTIME FOR CHOLESTEROL valsartan (DIOVAN) 80 mg tablet Take 1 tablet by mouth two times a day. metFORMIN (GLUCOPHAGE) 500 mg tablet Take 2 tablets by mouth two times a day with meals. . Blood Pressure Monitor Take your blood pressure everyday and keep a log aspirin 81 mg cap Take 81 mg by mouth once daily. amitriptyline (ELAVIL) 50 mg tablet take 1 tablet by mouth once daily at bedtime silver sulfADIAZINE (SILVADENE) 1 % cream Apply to affected area once daily. (Patient not taking: Reported on 08/30/2023) Magnesium Chloride (SLOW-MAG) 71.5 mg TbEC Take 1 tablet by mouth twice daily. lidocaine-prilocaine (EMLA) 2.5-2.5 % cream Apply to affected area as needed. acetaminophen (TYLENOL EXTRA STRENGTH) 500 mg tablet Take 2 tablets by mouth every 6 hours as needed for pain. Lancets lancets Test one time daily, Insulin Dep? No E11.9 DM 2 alcohol swabs (ALCOHOL PADS) Test one time daily, Insulin Dep? No E11.9 DM 2 blood sugar diagnostic (BLOOD GLUCOSE TEST) test strip Test one time daily, Insulin Dep? No E11.9 DM 2 dulaglutide (TRULICITY) 3 mg/0.5 mL pen injector Inject 3 mg subcutaneously one time a week. Patient Assistance Medication. REVIEW OF SYSTEMS Review of Systems Constitutional: Negative for chills, fever and weight loss. Respiratory: Negative for cough, hemoptysis, sputum production, shortness of breath and wheezing. Cardiovascular: Positive for leg swelling. The remainder of review of systems was negative. PHYSICAL EXAMINATION: BP 85/48 Pulse 62 Wt 279 lb 5.2 oz (126.7kg) SpO2 92% General appearance: Well appearing, alert, in no acute distress, well-hydrated, well nourished. Psychiatry: Alert, oriented x3 DATA: Diagnostic tests reviewed and analysed for today's visit, including films and specimens, were personally reviewed by me Most recent labs and imaging results. No results found. CT CHEST W IVCON Result Date: 08/16/2023 IMPRESSION: 1. New bilateral pulmonary nodules likely due to metastatic disease 2. Small left pleural effusion 3. Healing fracture of the lateral right 11th rib Printer Floor Covering Assistant: KRISTOFER Transcribe Date/Time: Aug 16 2023 9:04A Dictated by : VANESSA POWER MD This examination was interpreted and the report reviewed and electronically signed by: VANESSA POWER MD on Aug 16 2023 9:20AM EST Immunizations: Unknown IMPRESSION: ASSESSMENT/PLAN: 1. Lung nodules - ICD9: 793.19, ICD10: R91.8 (primary diagnosis) Ct chest 07/2023 NEW nodules -10 mm nodule right upper lobe (2:71). -9 mm nodule right middle lobe (2:177) increased in size from prior CT where measured 7 mm. -4 mm nodule right upper lobe (2:47). -4 mm nodule superior segment left lower lobe (2:81). -4 mm nodule left upper lobe (2:88). Proceed with PET scan PFTs - NM PET/CT SKULL-THIGH INITIAL - LUNG DIFFUSION CAPACITY (DLCO) - LUNG VOLUMES 2. Chronic respiratory failure with hypoxia and hypercapnia (HCC) - ICD9: 518.83, 799.02, 786.09, ICD10: J96.11, J96.12 Continue oxygen supplementation at 2 L/min Patient advised to continue using her oxygen and keep saturation above 90 3. Morbid obesity (HCC) - ICD9: 278.01, ICD10: E66.01 BMI 42 4. Endometrial cancer (HCC) - ICD9: 182.0, ICD10: C54.1 Status post hysterectomy in 2022 5. ALXEX (obstructive sleep apnea) - ICD9: 327.23, ICD10: G47.33 Will be scheduling sleep study at [facility] to 6. Obesity hypoventilation syndrome (HCC) - ICD9: 278.03, ICD10: E66.2 7. Ex-smoker - ICD9: V15.82, ICD10: Z87.891 In remission quit smoking 1974 MD Go Contreras MD, [facility] Staff, Respiratory [place] documented in this encounter [facility] 09-14-2023 Miscellaneous Notes Record ID: [id number] Patient name: Pricila Hooker Date: September 14, 2023 - 12:51 Administered by: SANG Protocol: -> Great! Now we are in a secure chat environment. Protecting your health information is important to us. Ok, let's get started. Please verify your name and date of . Please click on the button with your first name. -> Pricila Got it. On to the next question... Select the button with your last name. -> So Got it, thank you. Please enter your date of in MM/DD/YYYY format:(e.g., "[birth year]/19/1969" for Mar 19, 1969) -> 1945 Thank you for verifying your information. I'd like to ask you a few questions about how your recovery is going. Have there been any new or worsening symptoms since your last response? -> No I'm glad to hear that. Have you had a hospital follow-up appointment yet since your discharge? -> Yes We would like to make sure you have what you need so that your basic needs are met including your personal safety, food, and housing. Would you like to speak to a social work support team member to help give you the support for any of these needs? -> No Ok. If you change your mind or have future needs, please let your provider know. Thank you for your time and allowing us to care for you. We will check in on you over the next four weeks to ensure you continue to recover and support your needs. In the meantime, please reach out to your PCP for any questions or concerns.Thank you for choosing [facility]! -> Great! Now we are in a secure chat environment. Protecting your health information is important to us. Ok, let's get started. Please verify your name and date of . Please click on the button with your first name. -> [place] Got it. On to the next question... Select the button with your last name. -> So Got it, thank you. Please enter your date of in MM/DD/YYYY format:(e.g., "[birth year]/19/1969" for Mar 19, 1969) -> 1945 Thank you for verifying your information. I'd like to ask you a few questions about how your recovery is going. Have there been any new or worsening symptoms since your last response? -> No I'm glad to hear that. Have you had a hospital follow-up appointment yet since your discharge? -> Yes We would like to make sure you have what you need so that your basic needs are met including your personal safety, food, and housing. Would you like to speak to a social work support team member to help give you the support for any of these needs? -> No documented in this encounter [facility] 09-14-2023 Telephone encounter Note Record ID: [id number] Patient name: Pricila Hooker Date: September 14, 2023 - 12:51 Administered by: SANG Protocol: -> Great! Now we are in a secure chat environment. Protecting your health information is important to us. Ok, let's get started. Please verify your name and date of . Please click on the button with your first name. -> Pricila Got it. On to the next question... Select the button with your last name. -> So Got it, thank you. Please enter your date of in MM/DD/YYYY format:(e.g., "[birth year]/19/1969" for Mar 19, 1969) -> 1945 Thank you for verifying your information. I'd like to ask you a few questions about how your recovery is going. Have there been any new or worsening symptoms since your last response? -> No I'm glad to hear that. Have you had a hospital follow-up appointment yet since your discharge? -> Yes We would like to make sure you have what you need so that your basic needs are met including your personal safety, food, and housing. Would you like to speak to a social work support team member to help give you the support for any of these needs? -> No Ok. If you change your mind or have future needs, please let your provider know. Thank you for your time and allowing us to care for you. We will check in on you over the next four weeks to ensure you continue to recover and support your needs. In the meantime, please reach out to your PCP for any questions or concerns.Thank you for choosing [facility]! -> Great! Now we are in a secure chat environment. Protecting your health information is important to us. Ok, let's get started. Please verify your name and date of . Please click on the button with your first name. -> Pricila Got it. On to the next question... Select the button with your last name. -> Hooker Got it, thank you. Please enter your date of in MM/DD/YYYY format:(e.g., "[birth year]/19/1969" for Mar 19, 1969) -> 1945 Thank you for verifying your information. I'd like to ask you a few questions about how your recovery is going. Have there been any new or worsening symptoms since your last response? -> No I'm glad to hear that. Have you had a hospital follow-up appointment yet since your discharge? -> Yes We would like to make sure you have what you need so that your basic needs are met including your personal safety, food, and housing. Would you like to speak to a social work support team member to help give you the support for any of these needs? -> No [facility] 09-14-2023 Telephone encounter Note Record ID: [id number] Patient name: Pricila Hooker Date: September 14, 2023 - 08:10 Administered by: SANG Protocol: -> Great! Now we are in a secure chat environment. Protecting your health information is important to us. Ok, let's get started. Please verify your name and date of . Please click on the button with your first name. -> Pricila Got it. On to the next question... Select the button with your last name. -> So Got it, thank you. Please enter your date of in MM/DD/YYYY format:(e.g., "[birth year]/19/1969" for Mar 19, 1969) -> 1945 Thank you for verifying your information. I'd like to ask you a few questions about how your recovery is going. Have there been any new or worsening symptoms since your last response? -> No I'm glad to hear that. Have you had a hospital follow-up appointment yet since your discharge? -> Yes We would like to make sure you have what you need so that your basic needs are met including your personal safety, food, and housing. Would you like to speak to a social work support team member to help give you the support for any of these needs? -> No [facility] 09-14-2023 Miscellaneous Notes Record ID: [id number] Patient name: Pricila Hooker Date: September 14, 2023 - 08:10 Administered by: SANG Protocol: -> Great! Now we are in a secure chat environment. Protecting your health information is important to us. Ok, let's get started. Please verify your name and date of . Please click on the button with your first name. -> Pricila Got it. On to the next question... Select the button with your last name. -> So Got it, thank you. Please enter your date of in MM/DD/YYYY format:(e.g., "[birth year]/19/1969" for Mar 19, 1969) -> 1945 Thank you for verifying your information. I'd like to ask you a few questions about how your recovery is going. Have there been any new or worsening symptoms since your last response? -> No I'm glad to hear that. Have you had a hospital follow-up appointment yet since your discharge? -> Yes We would like to make sure you have what you need so that your basic needs are met including your personal safety, food, and housing. Would you like to speak to a social work support team member to help give you the support for any of these needs? -> No documented in this encounter [facility] 09-10-2023 Instructions Billie Hwang APRN.DIRECTOR MARKETING - 09/10/2023 9:25 AM EDT Keep upcoming appointment with cardiology. Continue to use supplemental oxygen Schedule appointment with pulmonology, Dr. Omar Collins Complete in lab sleep study and spirometry testing. Order for sleep study will be faxed to [facility]. Continue to take all medication as prescribed. Complete Chest CT Apply steroid ointment to rash/Dry skin Follow-up as scheduled. documented in this encounter [facility] 09-10-2023 History of Present illness Narrative This is a 77 year old female who presents today with: Patient presents with: Follow Up: Hosp follow up TCM HISTORY OF PRESENT ILLNESS: Pricila Hooker is a 77 year old female. Patient presents with: Follow Up: Hosp follow up TCM Transitional Care Management Progress Note The patients TCM visit was performed within the 7 days of discharge. Patient's Date of discharge: 09/02/2023 Date of initial coordinator contact after discharge: Discharge diagnosis: Acute respiratory failure with hypoxia, hypercarbia Medication review completed Yes Sister is here accompanying patient at appointment. HOSPITAL/ER FOLLOW UP: Reason for visit: SOB Which facility: [facility] Date of visit: 08/30/2023-09/02/2023 Diagnosis: Acute respiratory failure with hypoxia, hypercarbia, ALEXX, acute systolic congestive heart failure Testing done: Overnight desaturation study was performed with significant desaturations consistent with hypoventilation, patient qualified for both nocturnal and exertional oxygen. Needs close follow-up with pulmonology and cardiology outpatient. Sleep study will be arranged outpatient as well. Treatment given: Supplemental oxygen, Lasix 20 mg, Coreg decreased to 6.25 mg twice daily. Has appointment with cardiology on October 12, follows with oncology November 02. Current symptoms: On going SOB but oxygen has been helpful. On continuous oxygen 2.[address] completed in August noted to have multiple bilateral pulmonary nodules suspicion for metastasis. Will be having a repeat CT scan soon. Need consult with Dr. Nelson, pulmonology, order is already in for sleep study. Would like to stay in [place] for sleep study at [facility]. Would like order faxed. Dry itchy scalp on the left side. Has not applied anything to the area. Chest CT: IMPRESSION: No CT evidence of pulmonary embolism. Multiple bilateral pulmonary nodules suspicious for metastasis. The majority are stable in size compared with August 10, [address] but new when compared with older prior CTs. Small bilateral pleural effusions increased in size compared with prior chest CT. Areas of atelectasis and/or consolidation in both lower lobes adjacent to the effusions. Circumferential thickening of the esophagus similar to prior studies. This finding can be seen with gastroesophageal reflux/esophagitis. PAST MEDICAL HISTORY: PAST MEDICAL HISTORY Diagnosis Date Acute cholecystitis 01/04/2007 Arthritis Benign neoplasm of colon CHF (congestive heart failure) (HCC) Diabetes mellitus without mention of complication Endometrial cancer (HCC) GERD (gastroesophageal reflux disease) Hemorrhoids Hypercholesteremia Hypertension Neuropathy Obesity Osteoarthritis of multiple joints PAST SURGICAL HISTORY Procedure Laterality Date ABDOMINAL SURGERY HX ARTHRP KNE CONDYLE&PLATU MEDIAL&LAT COMPARTMENTS 05/11/2011 Knee replacement, total right ARTHRP KNE CONDYLE&PLATU MEDIAL&LAT COMPARTMENTS 01/2011 left CATARACT EXTRACTION HX Left COLONOSCOPY FLX DX W/COLLJ SPEC WHEN PFRMD 12/28/2007 Colonoscopy COLONOSCOPY FLX DX W/COLLJ SPEC WHEN PFRMD 06/17/2012 Colonoscopy COLONOSCOPY FLX DX W/COLLJ SPEC WHEN PFRMD 11/05/2017 Colonoscopy EGD W/O BRSH SPEC VARICIES INJ 11/25/2022 EYE SURGERY HX JOINT REPLACEMENT HX LAPS SURG CHOLECYSTECTOMY W/CHOLANGIOGRAPHY 01/04/2007 LAPS TOTAL HYSTERECT 250 GM/< W/RMVL TUBE/OVARY 07/24/2022 Exam under anesthesia, total laparoscopic hysterectomy, bilateral salpingo-oophorectomy, sentinel lymph node mapping with excision of bilateral pelvic sentinel lymph nodes, and extensive lysis of adhesions. PAST SURGICAL HISTORY OF N/A 05/11/2023 hx of heart cath ALLERGIES Patient has no known allergies. MEDICATIONS Current Outpatient Medications Medication Sig gabapentin (NEURONTIN) 100 mg capsule Take 1 capsule by mouth two times a day for 180 days. furosemide (LASIX) 20 mg tablet Take 1 tablet by mouth once daily. carvedilol (COREG) 3.125 mg tablet Take 2 tablets by mouth two times a day with meals. DULoxetine (CYMBALTA) 60 mg capsule Take 1 capsule by mouth once daily. glimepiride (AMARYL) 4 mg tablet Take 1 tablet by mouth two times a day with meals. naproxen (NAPROSYN) 500 mg tablet Take 1 tablet by mouth two times a day as needed (pain/inflammation, take with food.). atorvastatin (LIPITOR) 40 mg tablet TAKE 1 TABLET BY MOUTH ONCE DAILY AT BEDTIME FOR CHOLESTEROL valsartan (DIOVAN) 80 mg tablet Take 1 tablet by mouth two times a day. metFORMIN (GLUCOPHAGE) 500 mg tablet Take 2 tablets by mouth two times a day with meals. . Blood Pressure Monitor Take your blood pressure everyday and keep a log aspirin 81 mg cap Take 81 mg by mouth once daily. amitriptyline (ELAVIL) 50 mg tablet take 1 tablet by mouth once daily at bedtime silver sulfADIAZINE (SILVADENE) 1 % cream Apply to affected area once daily. (Patient not taking: Reported on 08/30/2023) Magnesium Chloride (SLOW-MAG) 71.5 mg TbEC Take 1 tablet by mouth twice daily. lidocaine-prilocaine (EMLA) 2.5-2.5 % cream Apply to affected area as needed. acetaminophen (TYLENOL EXTRA STRENGTH) 500 mg tablet Take 2 tablets by mouth every 6 hours as needed for pain. Lancets lancets Test one time daily, Insulin Dep? No E11.9 DM 2 alcohol swabs (ALCOHOL PADS) Test one time daily, Insulin Dep? No E11.9 DM 2 blood sugar diagnostic (BLOOD GLUCOSE TEST) test strip Test one time daily, Insulin Dep? No E11.9 DM 2 dulaglutide (TRULICITY) 3 mg/0.5 mL pen injector Inject 3 mg subcutaneously one time a week. Patient Assistance Medication. No current facility-administered medications for this visit. FAMILY HISTORY Problem Relation Age of Onset Heart Mother irregular heart rate Colon Cancer Mother Stroke Mother Heart Father from heart attack Colon Cancer Maternal Grandfather Social History Tobacco Use Smoking status: Former Packs/day: 0.50 Years: 20.00 Additional pack years: 0.00 Total pack years: 10.00 Types: Cigarettes Quit date: 11/05/1977 Years since quittin.8 Smokeless tobacco: Never Vaping Use Vaping Use: Never used Substance Use Topics Alcohol use: No Drug use: No REVIEW OF SYSTEMS GENERAL: No weight loss, malaise or fevers/chills HEENT: Negative for frequent or significant headaches, No changes in hearing or vision. NECK: Negative for lumps, goiter, pain and significant neck swelling RESPIRATORY: SOB CARDIOVASCULAR: Negative for chest pain, leg swelling, orthopnea, or palpitations GI: No nausea, vomiting, or diarrhea/constipation. No hematochezia/melena. No heartburn or reflux symptoms. : No history of dysuria, frequency or incontinence MUSCULOSKELETAL: Negative for joint pain or swelling. SKIN: + Dry itchy scalp ENDOCRINE: Negative for cold or heat intolerance, polyuria, polydipsia and goiter NEURO: No history of headaches, syncope, paralysis, seizures or tremors MOOD: Negative for depression, anxiety, or suicidal ideation. EXAM: BP 102/60 Pulse 83 Resp 16 Wt 83 kg (183 lb) SpO2 95% BMI 28.07 kg/m PHYSICAL EXAM: General Appearance: Well appearing, alert, in no acute distress, well-hydrated, well nourished. Skin: + Dry scaly patch at the left base of the neck, no erythema Head: Normocephalic, no masses, lesions, tenderness or abnormalities. Eyes: Anicteric sclera. Extraocular movements are intact. Lungs: Lung sounds right, diminished, wheezing in left lower lobe. Heart: RRR without murmur, gallop, or rubs. No ectopy. Extremities: No deformities, edema, skin discoloration, clubbing or cyanosis. Good capillary refill. Peripheral Pulses: Normal, Capillary refill <2secs, strong peripheral pulses, Pulses palpable. Neurologic: Using wheel chair. Sensation grossly intact. ASSESSMENT/PLAN: 1. Hospital discharge follow-up - ICD9: V67.59, ICD10: Z09 (primary diagnosis) - Stable since discharge 2. Hypoventilation - ICD9: 786.09, ICD10: R06.89 - Order for sleep study will be faxed to [facility] - Instructed to continue with oxygen as prescribed - Schedule consult with pulmonology - CONSULT TO PULMONARY MEDICINE 3. Acute respiratory failure with hypoxia (HCC) - ICD9: 518.81, ICD10: J96.01 - Same plan as #2 4. Lung nodules - ICD9: 793.19, ICD10: R91.8 - Same plan as #2 5. Endometrial cancer (HCC) - ICD9: 182.0, ICD10: C54.1 - Keep scheduled appointments with oncology 6. Acute on chronic systolic CHF (congestive heart failure) (HCC) - ICD9: 428.23, 428.0, ICD10: I50.23 - Stable, continue to take current medication - Keep schedule appointment with cardiology 7. Psoriasis - ICD9: 696.1, ICD10: L40.9 - TRIAMCINOLONE ACETONIDE 0.1 % TOPICAL OINTMENT Follow up as scheduled Discussed treatment plan and patient voices understanding. Patient's questions answered appropriately. Medications and potential side effects were discussed and patient voices understanding. Billie Hwang APRN.SOLO This note was partially generated using [employer] voice recognition system. Note was reviewed for accuracy. There may be minor misspellings or grammar miscues with [employer] voice recognition. documented in this encounter [facility] 09-08-2023 Telephone encounter Note Record ID: [id number] Patient name: Pricila Hooker Date: September 08, 2023 - 02:05 Administered by: SANG Protocol: -> Great! Now we are in a secure chat environment. Protecting your health information is important to us. Ok, let's get started. Please verify your name and date of . Please click on the button with your first name. -> Pricila Got it. On to the next question... Select the button with your last name. -> So Got it, thank you. Please enter your date of in MM/DD/YYYY format:(e.g., "03/19/1969" for Mar 19, 1969) -> 1945 Thank you for verifying your information. I'd like to ask you a few questions about how your recovery is going. Have you experienced any new or worsening symptoms since returning home? -> No I'm glad to hear that. Have you had a hospital follow-up appointment yet since your discharge? -> No Why do you think you will not be able to attend? -> Need to reschedule No problem. A machine assembler will reach out to you within the next business day. Please be on the lookout for their call. Many patients have concerns about their medication once they are home. Do you have any questions about taking your medications or which medications you should be on? -> No Good! When you were discharged from the hospital were you discharged home with home health care services? -> No Ok thanks for confirming. When you were discharged from the hospital were you given orders to obtain medical equipment? -> Yes Have you received the medical equipment or talked with the medical equipment company? -> Yes [facility] 09-08-2023 Miscellaneous Notes Record ID: [id number] Patient name: Pricila Hooker Date: September 08, 2023 - 02:05 Administered by: SANG Protocol: -> Great! Now we are in a secure chat environment. Protecting your health information is important to us. Ok, let's get started. Please verify your name and date of . Please click on the button with your first name. -> Pricila Got it. On to the next question... Select the button with your last name. -> So Got it, thank you. Please enter your date of in MM/DD/YYYY format:(e.g., "[birth year]/19/1969" for Mar 19, 1969) -> 1945 Thank you for verifying your information. I'd like to ask you a few questions about how your recovery is going. Have you experienced any new or worsening symptoms since returning home? -> No I'm glad to hear that. Have you had a hospital follow-up appointment yet since your discharge? -> No Why do you think you will not be able to attend? -> Need to reschedule No problem. A machine assembler will reach out to you within the next business day. Please be on the lookout for their call. Many patients have concerns about their medication once they are home. Do you have any questions about taking your medications or which medications you should be on? -> No Good! When you were discharged from the hospital were you discharged home with home health care services? -> No Ok thanks for confirming. When you were discharged from the hospital were you given orders to obtain medical equipment? -> Yes Have you received the medical equipment or talked with the medical equipment company? -> Yes documented in this encounter [facility] 09-08-2023 History of Present illness Narrative POPULATION HEALTH NAVIGATION OUTREACH Action/FYI TCM (SANG) Hospital follow up (TCM thru 09/15) Spoke with patient and scheduled appt on 09/09. Reason for Outreach Community Monitoring/Network Navigator Pools & Phone Line: [facility] Patient Contacted: Spoke to patient/parent/or legal guardian Patient identified by name and : Yes Community Monitoring/Network Navigator P[employer] Phone Line actions taken: Patient scheduled: Hospital Follow-up 09/10/2023 in [facility] with BILLIE HWANG - Hospital follow up (TCM thru 09/15) 10/13/2023 in [facility] with FARSHAD MARIE - VIRTUAL FOLLOW UP, Heart failure with mildly reduced ejection fraction (HCC), Obesity, Class III, BMI 40-49.9 (morbid obesity) (HCC), Essential hypertension, benign, Type 2 diabetes mellitus without complication, with no history of insulin use (HCC), Mixed hyperlipidemia, ADD TO SCHEDULE PER DR MARIE / DESK F14, PATIENT AWARE WILL VIEW ON MYCHART 10/27/[address] (I-STAT) - Endometrial cancer (HCC) [C54.1]; Lung nodule [R91.1]; 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] 11/03/2023 in [facility] with NORA BRANHAM - OV/CT 10/26* 11/05/2023 in [facility] with FARSHAD MARIE - Dx: Heart failure with mildly reduced ejection fraction, Established heart failure patient, 3 month vv follow up, Per [facility]VI order 11/[facility] BILLIE HWANG - 3 mo f/u Navigation Signature: Sofia Voss MA September 08, 2023 3:20 PM documented in this encounter [facility] 09-06-2023 Telephone encounter Note OK to refill as ordered Vinh Van MD [facility] 09-06-2023 Miscellaneous Notes OK to refill as ordered Vinh Van MD Prescription Refill Information The patient has been identified by name and date of : Yes Caregiver verified no other encounters exist for this prescription request: Yes Caregiver confirmed with patient/requestor that no other refills are due, in the near future, with this provider at this time: Yes The last office visit in the department: 08/24/23 Does the patient have a future office visit with this provider/department: Yes, 11/24/23 Requested Prescriptions Pending Prescriptions Disp Refills gabapentin (NEURONTIN) 100 mg capsule 180 capsule 0 Sig: Take 1 capsule by mouth two times a day for 90 days. Nain Koenig LPN September 06, 2023 4:08 PM documented in this encounter [facility] 09-06-2023 Telephone encounter Note Prescription Refill Information The patient has been identified by name and date of : Yes Caregiver verified no other encounters exist for this prescription request: Yes Caregiver confirmed with patient/requestor that no other refills are due, in the near future, with this provider at this time: Yes The last office visit in the department: 08/24/23 Does the patient have a future office visit with this provider/department: Yes, 11/24/23 Requested Prescriptions Pending Prescriptions Disp Refills gabapentin (NEURONTIN) 100 mg capsule 180 capsule 0 Sig: Take 1 capsule by mouth two times a day for 90 days. Nain Koenig LPN September 06, 2023 4:08 PM [facility] 09-03-2023 Telephone encounter Note Record ID: [id number] Patient name: Pricila Hooker Date: September 03, 2023 - 06:27 Administered by: SANG Protocol: -> Great! Now we are in a secure chat environment. Protecting your health information is important to us. Ok, let's get started. Please verify your name and date of . Please click on the button with your first name. -> Pricila Got it. On to the next question... Select the button with your last name. -> So Got it, thank you. Please enter your date of in MM/DD/YYYY format:(e.g., "03/19/1969" for Mar 19, 1969) -> 1945 Thank you for verifying your information. I'd like to ask you a few questions about how your recovery is going. Since leaving the hospital, do you have any new or worsening symptoms? -> No I'm glad to hear that. We encourage a follow-up appointment with a physician within two weeks of being discharged from the hospital to oversee your recovery. It seems you have a follow up appointment scheduled, are you able to attend? -> No Why do you think you will not be able to attend? -> Appointment scheduled for a future date Excellent. Many patients have concerns about their medication once they are home. Do you have any questions about taking your medications or which medications you should be on? -> No [facility] 09-03-2023 Miscellaneous Notes Record ID: [id number] Patient name: Pricila Hooker Date: September 03, 2023 - 06:27 Administered by: SANG Protocol: -> Great! Now we are in a secure chat environment. Protecting your health information is important to us. Ok, let's get started. Please verify your name and date of . Please click on the button with your first name. -> Pricila Got it. On to the next question... Select the button with your last name. -> So Got it, thank you. Please enter your date of in MM/DD/YYYY format:(e.g., "03/19/1969" for Mar 19, 1969) -> 1945 Thank you for verifying your information. I'd like to ask you a few questions about how your recovery is going. Since leaving the hospital, do you have any new or worsening symptoms? -> No I'm glad to hear that. We encourage a follow-up appointment with a physician within two weeks of being discharged from the hospital to oversee your recovery. It seems you have a follow up appointment scheduled, are you able to attend? -> No Why do you think you will not be able to attend? -> Appointment scheduled for a future date Excellent. Many patients have concerns about their medication once they are home. Do you have any questions about taking your medications or which medications you should be on? -> No documented in this encounter [facility] 09-02-2023 Note HNO ID: [id number] Author: MARJORIE UGALDE MD Service: Hospital Medicine Author Type: Physician Type: Progress Notes Filed: 09/02/2023 09:56 Note Text: DEPARTMENT OF HOSPITAL MEDICINE PROGRESS NOTE SERVICE DATE: 09/02/2023 SERVICE TIME: 9:54 AM Hospital Medicine/Primary Attending: Marjorie Ugalde MD NIGHT AND WEEKEND COVERAGE: [employer] COVER[employer]: Days: [phone], please page attending physician. Nights: [phone], please page [facility] Night coverage pager [phone]. Subjective INTERVAL HPI: - Overnight desat study completed last night - Ambulatory desaturation study ordered - Anticipate d/c tomorrow with O2 set up Current Facility-Administered Medications Medication Dose Route Frequency acetaminophen 1,000 mg tab(s) (TYLENOL) 1,000 mg ORAL q 6 H PRN gabapentin 100 mg cap(s) (NEURONTIN) 100 mg ORAL BID atorvastatin 40 mg tab(s) (LIPITOR) 40 mg ORAL AT BEDTIME valsartan 80 mg tab(s) (DIOVAN) 80 mg ORAL BID magnesium oxide 400 mg tab(s) (MAG-OX) 400 mg ORAL BID aspirin, enteric coated 81 mg tab(s) 81 mg ORAL DAILY DULoxetine 60 mg cap(s) (CYMBALTA) 60 mg ORAL DAILY amitriptyline 50 mg tab(s) (ELAVIL) 50 mg ORAL AT BEDTIME heparin 5,000 Units injection 5,000 Units SUBCUTANEOUS q 12 H NaCl 0.9% iv flush bag 20 mL INTRAVENOUS PRN carvedilol 6.25 mg tab(s) (COREG) 6.25 mg ORAL BID w MEALS ipratropium 0.02 % 0.5 mg (ATROVENT) 0.5 mg INHALATION q 4 H while awake dextrose 40 % 15 g 15 g ORAL PRN Or glucagon 1 mg injection 1 mg INTRAMUSCULAR PRN Or dextrose 10% iv bolus 12.5 g INTRAVENOUS PRN insulin lispro injection (rapid acting) (ADMElog) SUBCUTANEOUS w MEALS insulin lispro injection (rapid acting) (ADMElog) SUBCUTANEOUS AT BEDTIME furosemide 20 mg tab(s) (LASIX) 20 mg ORAL DAILY Objective PHYSICAL EXAM: BP 95/50 Pulse 70 Temp (Src) 97.7 (Oral) Resp 16 Ht 5' 7.7" (1.72m) Wt 281 lb 15.5 oz (127.9kg) SpO2 94% BMI 43.23 kg/(m2). O2 Therapy: Nasal Cannula, Liters: 3 Physical Exam Performed GENERAL: Alert, no distress, cooperative SKIN: Skin color, texture, turgor normal. No rashes or lesions. HEAD/SINUSES: No significant findings EYES: EOMI NECK: No jugulovenous distention, Supple BACK: Back symmetric, Normal curvature, ROM normal LUNGS: Lungs clear to auscultation, Good diaphragmatic excursion CARDIAC: Normal S1 and S2; no rubs, murmurs, or gallops ABDOMEN: Abdomen soft, non-tender, BS normal, No masses or organomegaly EXTREMITIES: Normal exam of the extremities NEURO: Grossly normal cognition, motor function, and cranial nerves III-XII Lines, Drains, and Airways Line Duration Implanted Vascular Access Device Single Port Right Chest -- days Reviewed lines and needs to be continued: REASONS: Telemetry DATA: Diagnostic tests reviewed for today's visit: Most recent labs Most recent imaging Most recent EKG Assessment/Plan Problem List Acute respiratory failure with hypoxia (HCC) (POA: Yes) Essential hypertension, benign (POA: Yes) Obesity, Class III, BMI 40-49.9 (morbid obesity) (HCC) (POA: Yes) Type 2 diabetes mellitus without complication, with no history of insulin use (HCC) (POA: Yes) Endometrial cancer (HCC) (POA: Yes) Acute on chronic systolic CHF (congestive heart failure) (HCC) (POA: Yes) Chronic respiratory failure with hypercapnia (HCC) (POA: Status not on file) Lung nodules (POA: Status not on file) Morbid obesity (HCC) (POA: Status not on file) Acute on chronic systolic congestive heart failure (HCC) (POA: Status not on file) HOSPITAL COURSE: Pricila Hooker is a 77 year old female with PMH HTN, Endometrial cancer, systolic HF, presented to the [place] ED for evaluation of SOB that started 4 days ago. She reports about a week ago, her PCP increased her Coreg due to elevated BP readings. She subsequently developed worsening orthopnea, shortness of breath and was saturating 80% in the Emergency Room. She continues to have supplemental O2 needs, with ABG consistent with combined respiratory failure. Acute combined respiratory failure with hypoxia, hypercapnea - ABG reviewed, 7. - Sleep study as outpateint - Overnight desat last night - Ambulatory desaturation study ordered - Discharge tomorrow - needs sleep eval outpatient Acute on chronic systolic CHF (congestive heart failure) (HCC) - No longer appears volume overloaded - Continue oral diuretic - Cardiology following - Decrease coreg to 6.25mg po BID Essential hypertension, benign - Continue Valsartan Obesity, Class III, BMI 40-49.9 (morbid obesity) (HCC) - BMI 45.22 - counseled on lifestyle modifications Type 2 diabetes mellitus without complication, with no history of insulin use (HCC) - Last A1C 1 year ago-- 8.0% - holding Metformin, Trulicity, Glimepiride - SSI - AC/HS - hypoglycemia protocol Endometrial cancer (HCC) - s/p chemo/radiation Apr 2023 - continue gabapentin for chemo induced neuropathy Medicati (more content not included)... [facility] 09-01-2023 Note HNO ID: [id number] Author: MARJORIE UGALDE MD Service: Hospital Medicine Author Type: Physician Type: Progress Notes Filed: 09/01/2023 12:07 Note Text: DEPARTMENT OF HOSPITAL MEDICINE PROGRESS NOTE SERVICE DATE: 09/01/2023 SERVICE TIME: 12:04 PM Hospital Medicine/Primary Attending: Marjorie Ugalde MD NIGHT AND WEEKEND COVERAGE: [employer] COVERAGE: Days: [phone], please page attending physician. Nights: [phone], please page [facility] Night coverage pager [phone]. Subjective INTERVAL HPI: - ABG with combined respiratory failure, hypoxia and hypercarbia - Will involve Pulm for assistance - Hold further diuresis as not overloaded clinically Current Facility-Administered Medications Medication Dose Route Frequency acetaminophen 1,000 mg tab(s) (TYLENOL) 1,000 mg ORAL q 6 H PRN gabapentin 100 mg cap(s) (NEURONTIN) 100 mg ORAL BID atorvastatin 40 mg tab(s) (LIPITOR) 40 mg ORAL AT BEDTIME valsartan 80 mg tab(s) (DIOVAN) 80 mg ORAL BID magnesium oxide 400 mg tab(s) (MAG-OX) 400 mg ORAL BID aspirin, enteric coated 81 mg tab(s) 81 mg ORAL DAILY DULoxetine 60 mg cap(s) (CYMBALTA) 60 mg ORAL DAILY amitriptyline 50 mg tab(s) (ELAVIL) 50 mg ORAL AT BEDTIME heparin 5,000 Units injection 5,000 Units SUBCUTANEOUS q 12 H NaCl 0.9% iv flush bag 20 mL INTRAVENOUS PRN carvedilol 6.25 mg tab(s) (COREG) 6.25 mg ORAL BID w MEALS ipratropium 0.02 % 0.5 mg (ATROVENT) 0.5 mg INHALATION q 4 H while awake dextrose 40 % 15 g 15 g ORAL PRN Or glucagon 1 mg injection 1 mg INTRAMUSCULAR PRN Or dextrose 10% iv bolus 12.5 g INTRAVENOUS PRN insulin lispro injection (rapid acting) (ADMElog) SUBCUTANEOUS w MEALS insulin lispro injection (rapid acting) (ADMElog) SUBCUTANEOUS AT BEDTIME Objective PHYSICAL EXAM: BP 112/67 Pulse 76 Temp (Src) 97.9 (Temporal Artery) Resp 14 Ht 5' 7.7" (1.72m) Wt 281 lb 15.5 oz (127.9kg) SpO2 92% BMI 43.23 kg/(m2). O2 Therapy: Nasal Cannula, Liters: 2.00, %FIO2: (2L NC) Physical Exam Performed GENERAL: Alert, no distress, cooperative SKIN: Skin color, texture, turgor normal. No rashes or lesions. HEAD/SINUSES: No significant findings EYES: EOMI NECK: No jugulovenous distention, Supple BACK: Back symmetric, Normal curvature, ROM normal LUNGS: Lungs clear to auscultation, Good diaphragmatic excursion CARDIAC: Normal S1 and S2; no rubs, murmurs, or gallops ABDOMEN: Abdomen soft, non-tender, BS normal, No masses or organomegaly EXTREMITIES: Normal exam of the extremities NEURO: Grossly normal cognition, motor function, and cranial nerves III-XII Lines, Drains, and Airways Line Duration Implanted Vascular Access Device Single Port Right Chest -- days Reviewed lines and needs to be continued: REASONS: Telemetry DATA: Diagnostic tests reviewed for today's visit: Most recent labs Most recent imaging Most recent EKG Assessment/Plan Problem List Acute respiratory failure with hypoxia (HCC) (POA: Yes) Essential hypertension, benign (POA: Yes) Obesity, Class III, BMI 40-49.9 (morbid obesity) (HCC) (POA: Yes) Type 2 diabetes mellitus without complication, with no history of insulin use (HCC) (POA: Yes) Endometrial cancer (HCC) (POA: Yes) Acute on chronic systolic CHF (congestive heart failure) (HCC) (POA: Yes) HOSPITAL COURSE: Pricila Hooker is a 77 year old female with PMH HTN, Endometrial cancer, systolic HF, presented to the [place] ED for evaluation of SOB that started 4 days ago. She reports about a week ago, her PCP increased her Coreg due to elevated BP readings. She subsequently developed worsening orthopnea, shortness of breath and was saturating 80% in the Emergency Room. She continues to have supplemental O2 needs, with ABG consistent with combined respiratory failure. Will require sleep study and likely homegoing oxygen. Acute combined respiratory failure with hypoxia, hypercapnea - ABG reviewed, - Sleep study as outpateint - Overnight desat ordered - Pulm to follow Acute on chronic systolic CHF (congestive heart failure) (HCC) - No longer appears volume overloaded - Continue oral diuretic - Cardiology following - Decrease coreg to 6.25mg po BID Essential hypertension, benign - Continue Valsartan Obesity, Class III, BMI 40-49.9 (morbid obesity) ([facility]) - BMI 45.22 - counseled on lifestyle modifications Type 2 diabetes mellitus without complication, with no history of insulin use ([facility]) - Last A1C 1 year ago-- 8.0% - holding Metformin, Trulicity, Glimepiride - SSI - AC/HS - hypoglycemia protocol Endometrial cancer ([facility]) - s/p chemo/radiation Apr 2023 - continue gabapentin for chemo induced neuropathy Medication and Non-Pharmacologic VTE Prophylaxis/Anticoagulants Anticoagulant AND Antiplatelet Medications (From admission, onward) Start Dose Route Frequency Last Action Ordered Stop 08/31/23 0900 aspirin, enteric coated 81 mg tab(s) 81 mg ORAL DAILY Given, 08/31 0838 (more content not included)... [facility] 08-31-2023 History of Present illness Narrative Transitional Care Management (TCM) Inpatient Outreach Summary: Patient admitted to: [facility] Patient admitted on: 08/30/23 Admitted for: Acute respiratory failure with hypoxia Contact made with patient: Yes Kristofer, my name is Eddie Hanley RN and I am calling from the [facility] on behalf of Vinh Van MD. I understand that you are currently admitted at [facility] and I am calling to cover the follow up and support services that we provide when you are discharged home from the hospital. Spoke to: patient Patient identified by name and date of . What to Expect After Hospital Discharge Within 2 business days after you are discharged back to your home you will receive one of the following: A call from a registered nurse OR a text from the [facility] containing a secure link that will ask you questions about how you are doing since you are back at home. Please know that the telephone number on your caller ID may not identify as [facility]. During our outreach with you, we will ask you about any new or worsening symptoms and ensure you have a follow up appointment with your provider. Best Contact after Hospital Discharge I would like to confirm your contact information. Do you have a mobile phone, landline, or both? Mobile only: [phone] Is this the best number to reach you? Yes Do you give us permission to speak with anyone else if you are unavailable to speak with us? Yes. Name Milagro, relationship Sister, and contact number [phone]. Primary Care Provider (PCP) Hospital Discharge Appointment Does patient already have a PCP follow up appointment within 7-14 days after hospital discharge? No I would like to help you schedule a hospital follow-up appointment with your PCP. This is a great way for you to connect with your provider to ensure you have safely transitioned home. If you are agreeable, I will send your request to a machine assembler who will contact and assist you with that appointment. This will give you an opportunity to ask any questions or address any concerns you may have with your PCP. If you have any questions or concerns prior to that appointment after you are discharged, please call me or your PCP's office right away. [employer] Patient airpim[employer]ado[employer] status is: Active I see that you are active with [employer]. I will be sending you a letter through [employer] that will contain a brief summary of what we discussed today. This letter will also contain my contact information. Thank you for taking the time to speak with me today. I look forward to working with you once you are discharged home from the hospital. Eddie Hanley RN August 31, 2023 1:45 PM documented in this encounter [facility] 08-31-2023 Note HNO ID: [id number] Author: MARJORIE UGALDE MD Service: Hospital Medicine Author Type: Physician Type: Progress Notes Filed: 08/31/2023 10:37 Note Text: DEPARTMENT OF HOSPITAL MEDICINE PROGRESS NOTE SERVICE DATE: 08/31/2023 SERVICE TIME: 10:09 AM Hospital Medicine/Primary Attending: Marjorie Ugalde MD NIGHT AND WEEKEND COVERAGE: [employer] COVERAGE: Days: [phone], please page attending physician. Nights: [phone], please page [facility] Night coverage pager [phone]. Subjective INTERVAL HPI: - Continued low saturations on room air, placed back on 2L NC - Reports breathing now at baseline - Awaiting Cardiology evaluation Current Facility-Administered Medications Medication Dose Route Frequency acetaminophen 1,000 mg tab(s) (TYLENOL) 1,000 mg ORAL q 6 H PRN gabapentin 100 mg cap(s) (NEURONTIN) 100 mg ORAL BID atorvastatin 40 mg tab(s) (LIPITOR) 40 mg ORAL AT BEDTIME valsartan 80 mg tab(s) (DIOVAN) 80 mg ORAL BID magnesium oxide 400 mg tab(s) (MAG-OX) 400 mg ORAL BID aspirin, enteric coated 81 mg tab(s) 81 mg ORAL DAILY DULoxetine 60 mg cap(s) (CYMBALTA) 60 mg ORAL DAILY amitriptyline 50 mg tab(s) (ELAVIL) 50 mg ORAL AT BEDTIME heparin 5,000 Units injection 5,000 Units SUBCUTANEOUS q 12 H NaCl 0.9% iv flush bag 20 mL INTRAVENOUS PRN furosemide 20 mg injection (LASIX) 20 mg INTRAVENOUS BID 9a/5p carvedilol 6.25 mg tab(s) (COREG) 6.25 mg ORAL BID w MEALS ipratropium 0.02 % 0.5 mg (ATROVENT) 0.5 mg INHALATION q 4 H while awake dextrose 40 % 15 g 15 g ORAL PRN Or glucagon 1 mg injection 1 mg INTRAMUSCULAR PRN Or dextrose 10% iv bolus 12.5 g INTRAVENOUS PRN insulin lispro injection (rapid acting) (ADMElog) SUBCUTANEOUS w MEALS insulin lispro injection (rapid acting) (ADMElog) SUBCUTANEOUS AT BEDTIME Objective PHYSICAL EXAM: BP 134/65 Pulse 77 Temp (Src) 98.4 (Oral) Resp 18 Ht 5' 7.7" (1.72m) Wt 294 lb 12.1 oz (133.7kg) SpO2 91% BMI 45.19 kg/(m2). O2 Therapy: Nasal Cannula, Liters: 2 Physical Exam Performed GENERAL: Alert, no distress, cooperative SKIN: Skin color, texture, turgor normal. No rashes or lesions. HEAD/SINUSES: No significant findings EYES: EOMI NECK: No jugulovenous distention, Supple BACK: Back symmetric, Normal curvature, ROM normal LUNGS: Lungs clear to auscultation, Good diaphragmatic excursion CARDIAC: Normal S1 and S2; no rubs, murmurs, or gallops ABDOMEN: Abdomen soft, non-tender, BS normal, No masses or organomegaly EXTREMITIES: Normal exam of the extremities NEURO: Grossly normal cognition, motor function, and cranial nerves III-XII Lines, Drains, and Airways Line Duration Implanted Vascular Access Device Single Port Right Chest -- days Reviewed lines and needs to be continued: REASONS: Telemetry DATA: Diagnostic tests reviewed for today's visit: Most recent labs Most recent imaging Most recent EKG Assessment/Plan Problem List Acute respiratory failure with hypoxia (HCC) (POA: Yes) Essential hypertension, benign (POA: Yes) Obesity, Class III, BMI 40-49.9 (morbid obesity) (HCC) (POA: Yes) Type 2 diabetes mellitus without complication, with no history of insulin use (HCC) (POA: Yes) Endometrial cancer (HCC) (POA: Yes) Acute on chronic systolic CHF (congestive heart failure) (HCC) (POA: Yes) HOSPITAL COURSE: Pricila Hooker is a 77 year old female with PMH HTN, Endometrial cancer, systolic HF, presented to the [place] ED for evaluation of SOB that started 4 days ago. She reports about a week ago, her PCP increased her Coreg due to elevated BP readings. She subsequently developed worsening orthopnea, shortness of breath and was saturating 80% in the Emergency Room. She had rapid improvement with diuresis and now appears to be back at prior baseline, ambulating to bathroom without difficulty but continues to require supplemental O2. We decreased her coreg back to her prior level. Acute respiratory failure with hypoxia (HCC) - required 6L oxygen in the ED-- weaned down to 32L - CT PE negative - mildly elevated BNP at 770 - check procal Acute on chronic systolic CHF (congestive heart failure) ([facility]) Last ECHO 04/2023-- EF = 44 ? 5% (2D biplane) Left ventricular diastolic function was not evaluated due to E/a fusion. -Global Strain -9.8% - elevated BNP with pleural effusions noted on CT chest - Continue 20mg IV lasix BID - consult cardiology - monitor on tele - strict IANDO - daily weight - decrease Coreg back down to 6.25mg BID - AM labs Essential hypertension, benign - Continue Valsartan Obesity, Class III, BMI 40-49.9 (morbid obesity) ([facility]) - BMI 45.22 - counseled on lifestyle modifications Type 2 diabetes mellitus without complication, with no history of insulin use ([facility]) - Last A1C 1 year ago-- 8.0% - holding Metformin, Trulicity, Glimepiride - SSI - AC/HS - hypoglycemia protocol Endometrial cancer ([facility]) - s/p chemo/radiation Apr 2023 - continue gabapenti (more content not included)... [facility] 08-30-2023 Telephone encounter Note Call from patient requesting refill. Requested Prescriptions Pending Prescriptions Disp Refills carvedilol (COREG) 3.125 mg tablet 180 tablet 3 Sig: Take 2 tablets by mouth two times a day with meals. Patient last seen 06/05/23 Yun Franco [facility] 08-30-2023 Miscellaneous Notes Call from patient requesting refill. Requested Prescriptions Pending Prescriptions Disp Refills carvedilol (COREG) 3.125 mg tablet 180 tablet 3 Sig: Take 2 tablets by mouth two times a day with meals. Patient last seen 06/05/23 Yun Franco documented in this encounter [facility] 08-30-2023 Telephone encounter Note Hospital Medicine Transfer Received page for transfer request from to [place] ER to 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 Sats improved after being placed on [address] PE showed lung metastasis. Will probably need home oxygen Reason for transfer: Acute hypoxic respiratory failure Accepted to hospital medicine service at [facility] Oli Ayala MD 2:29 PM [facility] Work Phone: 08-30-2023 Miscellaneous Notes Hospital Medicine Transfer Received page for transfer request from to [place] ER to 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 Sats improved after being placed on [address] PE showed lung metastasis. Will probably need home oxygen Reason for transfer: Acute hypoxic respiratory failure Accepted to hospital medicine service at [facility] Oli Ayala MD 2:29 PM documented in this encounter [facility] 08-27-2023 Telephone encounter Note Unable to find name/number for daughter. Called patient and she stated she schedules her appts. Scheduled CT and Office visit with patient. [facility] Work Phone: 08-27-2023 Miscellaneous Notes Unable to find name/number for daughter. Called patient and she stated she schedules her appts. Scheduled CT and Office visit with patient. Biopsy denied. Patient is aware. Dr. Branham- please file order. PSS- please contact patient /daughter to schedule CT chest in 2 months then OV with Dr. Branham. Vicky Andino LPN documented in this encounter [facility] 08-26-2023 Telephone encounter Note Biopsy denied. Patient is aware. Dr. Branham- please file order. PSS- please contact patient /daughter to schedule CT chest in 2 months then OV with Dr. Branham. Vicky Andino LPN [facility] 08-24-2023 Instructions Talia Alba MA - 08/24/2023 2:37 PM EDT Will give you prescription for Naprosyn to use for sciatic pain and shoulder pain. Stop using Meloxicam (Mobic). We do not want to use both of these medications. Complete fasting labs in the next couple weeks. documented in this encounter [facility] 08-24-2023 History of Present illness Narrative Chief Complaint Patient presents with: Follow Up HPI Pricila Hooker is a 77 year old female who presents here today for a Wellness visit. Pt here today for an overdue visit. Pt last seen for acute visit and Hospital follow ups. Does not come in routinely. GI/Uro - Denies any stomach or bowel issues. Hx of UTI that caused a hospital admission back in March 2023. Cardio/CAD/Lipids/HTN - Follows with Cardiology, Dr. Ac and Dr. Marie. Had heart cath completed at [facility] on 05/11/23 for further evaluation of mild cardiomyopathy and exertion sob. Cath showed mild-mod non obstructive CAD. RHC showed low filling pressure and reduced CI. Pt on current regimen of Lipitor 40 mg once daily, ASA 81 mg once daily, Coreg 3.125 mg 2 tab po bid and Valsartan 80 mg once daily. Checks BP at home daily ranging from high to low to normal. States exertional sob is improved. Denies chest pain has occasional dizziness when standing too quickly. Feels she's doing much better than she was earlier this year. Hem/Onc - Follows with Dr. Branham for endometrial cancer. Following with [facility] at [facility]. Has received chemo treatment through Rad Onc. Pt given Cymbalta 60 mg once daily by Dr. Branham. Pt has port placed. They are going to do a biopsy on the top of her left lung, something seen on imaging. May have to go to [place] to get this done. DM - Checks sugars once daily, FBS 117-120. Denies any low blood sugars. Does have neuropathy symptoms, states this has gotten worse since having chemo. Gabapentin 100 mg 1 caps po bid for pain as well as Amitriptyline 50 mg once daily. Was given an Rx for Cymbalta 60 mg once daily for neuropathy by Dr. Branham. Pt on current regimen of Metformin 500 mg 2 tabs po bid, Amaryl 4 mg 1 tab po bid and Trulicity 3 mg once weekly. Receives Trulicity through Pt Assistance. Pain - Was seen by Billie Hwang CNP in March for chronic right shoulder pain, had x-rays completed. X-ray shows arthritis in the AC joint. Recommended to continue with Tylenol and Percocet prn. Also recommended PT or referral to Ortho if worsening. Has Mobic she can use prn which helps this. Sciatic - Having sciatic pain in her left hip that radiates down the outside of her leg down to her mid calf area. Started about 3 days ago. Having a really hard time getting comfortable due to her discomfort. Asking about Naproxen for pain use. HM - Adv Dir/Living Will scanned into chart. Declines Covid vaccines at this time. Declines Shingles and RSV vaccine. Behavioral Health Screening completed, overall negative. DM Eye exam up to date. Follows with Dr. Julien in Podiatry. Behavioral Health Screening PHQ-2 Score: 2 (Lower risk for depression) KEYANA-2 Score: 0 (Lower risk for anxiety) Recommendation: continuing current treatment plan Past medical history, appointments, medications, allergies reviewed. Previous Medical History PAST MEDICAL HISTORY Diagnosis Date Acute cholecystitis 01/04/2007 Arthritis Benign neoplasm of colon Diabetes mellitus without mention of complication Endometrial cancer (HCC) GERD (gastroesophageal reflux disease) Hemorrhoids Hypercholesteremia Hypertension Neuropathy Osteoarthritis of multiple joints Previous Surgical History PAST SURGICAL HISTORY Procedure Laterality Date ABDOMINAL SURGERY HX ARTHRP KNE CONDYLE&PLATU MEDIAL&LAT COMPARTMENTS 05/11/2011 Knee replacement, total right ARTHRP KNE CONDYLE&PLATU MEDIAL&LAT COMPARTMENTS 01/2011 left CATARACT EXTRACTION HX Left COLONOSCOPY FLX DX W/COLLJ SPEC WHEN PFRMD 12/28/2007 Colonoscopy COLONOSCOPY FLX DX W/COLLJ SPEC WHEN PFRMD 06/17/2012 Colonoscopy COLONOSCOPY FLX DX W/COLLJ SPEC WHEN PFRMD 11/05/2017 Colonoscopy EGD W/O BRSH SPEC VARICIES INJ 11/25/2022 EYE SURGERY HX JOINT REPLACEMENT HX LAPS SURG CHOLECYSTECTOMY W/CHOLANGIOGRAPHY 01/04/2007 LAPS TOTAL HYSTERECT 250 GM/< W/RMVL TUBE/OVARY 07/24/2022 Exam under anesthesia, total laparoscopic hysterectomy, bilateral salpingo-oophorectomy, sentinel lymph node mapping with excision of bilateral pelvic sentinel lymph nodes, and extensive lysis of adhesions. Family History FAMILY HISTORY Problem Relation Age of Onset Heart Mother irregular heart rate Colon Cancer Mother Stroke Mother Heart Father from heart attack Colon Cancer Maternal Grandfather Patient Allergies ALLERGIES No Known Allergies Current Medications Current Outpatient Medications on File Prior to Visit Medication Sig atorvastatin (LIPITOR) 40 mg tablet TAKE 1 TABLET BY MOUTH ONCE DAILY AT BEDTIME FOR CHOLESTEROL carvedilol (COREG) 3.125 mg tablet Take 2 tablets by mouth two times a day with meals. valsartan (DIOVAN) 80 mg tablet Take 1 tablet by mouth two times a day. gabapentin (NEURONTIN) 100 mg capsule Take 1 capsule by mouth two times a day for 90 days. metFORMIN (GLUCOPHAGE) 500 mg tablet Take 2 tablets by mouth two times a day with meals. . Blood Pressure Monitor Take your blood pressure everyday and keep a log cefdinir (OMNICEF) 300 mg capsule Take 300 mg by mouth two times a day. (Patient not taking: Reported on 03/24/2023) aspirin 81 mg cap Take 81 mg by mouth once daily. amitriptyline (ELAVIL) 50 mg tablet take 1 tablet by mouth once daily at bedtime silver sulfADIAZINE (SILVADENE) 1 % cream Apply to affected area once daily. Magnesium Chloride (SLOW-MAG) 71.5 mg TbEC Take 1 tablet by mouth twice daily. glimepiride (AMARYL) 4 mg tablet Take 1 tablet by mouth twice daily with meals. lidocaine-prilocaine (EMLA) 2.5-2.5 % cream Apply to affected area as needed. ondansetron (ZOFRAN) 8 mg tablet Take 1 tablet by mouth every 8 hours as needed for nausea/vomiting. (Patient not taking: Reported on 04/02/2023) acetaminophen (TYLENOL EXTRA STRENGTH) 500 mg tablet Take 2 tablets by mouth every 6 hours as needed for pain. Lancets lancets Test one time daily, Insulin Dep? No E11.9 DM 2 alcohol swabs (ALCOHOL PADS) Test one time daily, Insulin Dep? No E11.9 DM 2 blood sugar diagnostic (BLOOD GLUCOSE TEST) test strip Test one time daily, Insulin Dep? No E11.9 DM 2 dulaglutide (TRULICITY) 3 mg/0.5 mL pen injector Inject 3 mg subcutaneously one time a week. Patient Assistance Medication. No current facility-administered medications on file prior to visit. Social History Social History Tobacco Use Smoking status: Former Packs/day: 0.50 Years: 20.00 Additional pack years: 0.00 Total pack years: 10.00 Types: Cigarettes Quit date: 11/05/1977 Years since quittin.8 Smokeless tobacco: Never Vaping Use Vaping Use: Never used Substance Use Topics Alcohol use: No Drug use: No EXAM: BP 142/82 Pulse 80 Resp 18 Wt 132.4 kg (291 lb 12.8 oz) BMI 45.70 kg/m General Appearance: Well appearing, alert, in no acute distress, well-hydrated, well nourished. and Obese. Lungs: Lungs clear to auscultation. No wheezing, rhonchi, rales.. Heart: RRR without murmur, gallop, or rubs. No ectopy. Sciatic pain radiating down left hip and leg. Health Maintenance List Covid-19 Vaccine(1) Never done Cervical Cancer Screening Never done Shingrix Vaccine(1 of 2) Never done RSV Vaccine(1 - 1-dose 60+ series) Never done BP Controlled (<130/80) due on 05/27/2021 Dilated Retinal Exam due on 11/29/2021 Diabetic Foot Exam due on 06/06/2022 Urine Albumin:Creatinine Ratio due on 09/26/2022 LDL Cholesterol due on 09/26/2022 HbA1C due on 10/22/2022 Advance Directive Discussion due on 03/01/2023 Behavioral Health Screening Never done Influenza Vaccine(Season Ended) due on 10/31/2023 Annual PCP Team Chronic Disease Visit due on 03/24/2024 DTaP,Tdap,Td Vaccine(2 - Td or Tdap) due on 06/07/2031 Bone Density Screening Completed Hepatitis C Screening Completed Pneumococcal Vaccine: 65+ Completed HPV Vaccine Aged Out Mammogram Screening Discontinued Colorectal Cancer Screening Discontinued Data reviewed Epic ASSESSMENT/PLAN: 1. Type 2 diabetes mellitus without complication, with no history of insulin use (HCC) - ICD9: 250.00, ICD10: E11.9 (primary diagnosis) - Check A1c - Continue current medications - Counseled on healthy diet and regular exercise - GLIMEPIRIDE 4 MG TABLET - HEMOGLOBIN A1C 2. 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) - ICD9: 249.60, 357.2, ICD10: E13.40 - Continue current medication regimen. 3. Chemotherapy-induced neuropathy (HCC) - ICD9: 357.6, E933.1, ICD10: G62.0, T45.1X5A - Continue current medication regimen. 4. Essential hypertension, benign - ICD9: 401.1, ICD10: I10 - BP stable earlier today, continue current regimen - Continue current medications - Recommend home blood pressure monitoring, to bring results to next visit - Encouraged sodium restriction, DASH or Mediterranean diet - Recommend regular aerobic exercise 5. Stage 3a chronic kidney disease (HCC) - ICD9: 585.3, ICD10: N18.31 - Cont monitoring through routine labs. 6. Hyperlipidemia, unspecified hyperlipidemia type - ICD9: 272.4, ICD10: E78.5 - Lipid panel ordered, check fasting - Continue current medications - Counseled on healthy diet and regular exercise 7. Left sided sciatica - ICD9: 724.3, ICD10: M54.32 Sciatica - Rx given to use for 2-4 weeks, stop Mobic during use - NAPROXEN 500 MG TABLET 8. Chronic right shoulder pain - ICD9: 719.41, 338.29, ICD10: M25.511, G89.29 - Rx for Naprosyn, discussed to d/c Mobic - NAPROXEN 500 MG TABLET 9. Endometrial cancer (HCC) - ICD9: 182.0, ICD10: C54.1 - Cont f/u with Hem/Onc Fasting labs as ordered. Follow up in 3 months. I agree with the Chief Complaint, ROS, and Past Histories independently gathered by the clinical arch support technician and the remaining scribed note accurately describes my personal service to the patient. Medical Decision Making: Problems: Moderate: 2+ stable chronic illnesses Data: Unique test(s) ordered: 2 Risk: Moderate: Drug management Medical Decision Making Level: 4 - Moderate Vinh Van MD The documentation for this note was completed by Talia Alba MA acting as scribe for Vinh Van MD. August 24, 2023 2:40 PM. Talia Alba MA documented in this encounter [facility] 08-24-2023 Telephone encounter Note .. RADIOLOGIST REQUEST / DENIAL FORM STAFF RADIOLOGIST: Juan Pablo/Horacio PROCEDURE: Not Approved (reason) DO NOT SCHEDULE -- See Notes NOTES: Multiple indeterminate lung nodules, largest 10 mm in RUL closely subjacent to a right rib. Nodules are either too small or inaccessible for percutaneous biopsy STAFF SIGNATURE: Kely Almeida MD DATE: August 24, 2023 TIME: 2:18 PM [facility] Work Phone: 08-24-2023 Miscellaneous Notes .. RADIOLOGIST REQUEST / DENIAL FORM STAFF RADIOLOGIST: Juan Pablo/Horacio PROCEDURE: Not Approved (reason) DO NOT SCHEDULE -- See Notes NOTES: Multiple indeterminate lung nodules, largest 10 mm in RUL closely subjacent to a right rib. Nodules are either too small or inaccessible for percutaneous biopsy STAFF SIGNATURE: Kely Almeida MD DATE: August 24, 2023 TIME: 2:18 PM BX. COORDINATOR INFORMATION LAB RESULTS: PT INR (no units) Date Value 05/14/2011 1.7 No results found for: "APTT" Platelet Count (k/uL) Date Value 08/10/2023 136 03/28/2020 215 Current Outpatient Medications Medication Sig DULoxetine (CYMBALTA) 60 mg capsule Take 1 capsule by mouth once daily. atorvastatin (LIPITOR) 40 mg tablet TAKE 1 TABLET BY MOUTH ONCE DAILY AT BEDTIME FOR CHOLESTEROL carvedilol (COREG) 3.125 mg tablet Take 2 tablets by mouth two times a day with meals. valsartan (DIOVAN) 80 mg tablet Take 1 tablet by mouth two times a day. gabapentin (NEURONTIN) 100 mg capsule Take 1 capsule by mouth two times a day for 90 days. metFORMIN (GLUCOPHAGE) 500 mg tablet Take 2 tablets by mouth two times a day with meals. . Blood Pressure Monitor Take your blood pressure everyday and keep a log cefdinir (OMNICEF) 300 mg capsule Take 300 mg by mouth two times a day. (Patient not taking: Reported on 03/24/2023) aspirin 81 mg cap Take 81 mg by mouth once daily. amitriptyline (ELAVIL) 50 mg tablet take 1 tablet by mouth once daily at bedtime silver sulfADIAZINE (SILVADENE) 1 % cream Apply to affected area once daily. Magnesium Chloride (SLOW-MAG) 71.5 mg TbEC Take 1 tablet by mouth twice daily. glimepiride (AMARYL) 4 mg tablet Take 1 tablet by mouth twice daily with meals. lidocaine-prilocaine (EMLA) 2.5-2.5 % cream Apply to affected area as needed. ondansetron (ZOFRAN) 8 mg tablet Take 1 tablet by mouth every 8 hours as needed for nausea/vomiting. (Patient not taking: Reported on 04/02/2023) acetaminophen (TYLENOL EXTRA STRENGTH) 500 mg tablet Take 2 tablets by mouth every 6 hours as needed for pain. Lancets lancets Test one time daily, Insulin Dep? No E11.9 DM 2 alcohol swabs (ALCOHOL PADS) Test one time daily, Insulin Dep? No E11.9 DM 2 blood sugar diagnostic (BLOOD GLUCOSE TEST) test strip Test one time daily, Insulin Dep? No E11.9 DM 2 dulaglutide (TRULICITY) 3 mg/0.5 mL pen injector Inject 3 mg subcutaneously one time a week. Patient Assistance Medication. No current facility-administered medications for this visit. ALLERGIES No Known Allergies FILM GUIDELINES FOR HOLDING ANTI-PLATELET AND ANTI- COAGULATION THERAPY: None on file. NURSE SIGNATURE: Caitlyn Mondragon RN DATE: August 24, 2023 TIME: 1:17 PM RADIOLOGY CALL CENTER INTAKE CENTER REP: N/A EXT: N/A DATE: 08/24/23 TIME: 0922 TRACKING #. N/A REQUESTING PERSON: ROSEANN IGNACIO PHONE/PAGER: [phone] REQUESTING STAFF: NORA BRANHAM DO PHONE/PAGER: [phone] SPECIFICS OF THE REQUEST: (Please be as detailed as possible. If request is lymph node biopsy, specify LOCATION of the node if possible): Right Lung, New lung nodules. H/O endometrial cancer. RUL nodule is largest but may be behind rib? (For example: biopsy liver mass or biopsy pelvic lymph node ) SPECIAL REQUESTS: TISSUE SAMPLE, LABWORK: Routine Evaluation -Fine needle aspiration (FNA), core biopsy, no preference, unsure, specific processing request for pathology (For example: send for ER, [place], HER2/[place] or possible lymphoma send in RPMI solution ) IS THIS REQUEST PART OF A RESEARCH PROTOCOL: No IF YES: List specifics of request and name/contact number of research coordinator and primary physician. 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 ALL OTHER CASES NEED IMAGING TO EVALUATE APPROPRIATENESS/FEASIBILITY OF THE REQUEST) IMAGING: [facility] (If the imaging was obtained outside the [facility] system, then it needs to be submitted for review prior to approval.) Note to all persons requesting biopsies: All biopsy requests will be scheduled as quickly as possible, based on the clinical urgency, availability of appointment times, the need to hold anti-thrombolytic therapy (aspirin, blood thinners) and the patient s schedule, including the need for an available crew truck driver. If a percutaneous biopsy or drainage is not felt to be safe or an alternative method for establishing a diagnosis is possible, this will be discussed directly with the requesting physician. documented in this encounter [facility] 08-24-2023 Telephone encounter Note BX. COORDINATOR INFORMATION LAB RESULTS: PT INR (no units) Date Value 05/14/2011 1.7 No results found for: "APTT" Platelet Count (k/uL) Date Value 08/10/2023 136 03/28/2020 215 Current Outpatient Medications Medication Sig DULoxetine (CYMBALTA) 60 mg capsule Take 1 capsule by mouth once daily. atorvastatin (LIPITOR) 40 mg tablet TAKE 1 TABLET BY MOUTH ONCE DAILY AT BEDTIME FOR CHOLESTEROL carvedilol (COREG) 3.125 mg tablet Take 2 tablets by mouth two times a day with meals. valsartan (DIOVAN) 80 mg tablet Take 1 tablet by mouth two times a day. gabapentin (NEURONTIN) 100 mg capsule Take 1 capsule by mouth two times a day for 90 days. metFORMIN (GLUCOPHAGE) 500 mg tablet Take 2 tablets by mouth two times a day with meals. . Blood Pressure Monitor Take your blood pressure everyday and keep a log cefdinir (OMNICEF) 300 mg capsule Take 300 mg by mouth two times a day. (Patient not taking: Reported on 03/24/2023) aspirin 81 mg cap Take 81 mg by mouth once daily. amitriptyline (ELAVIL) 50 mg tablet take 1 tablet by mouth once daily at bedtime silver sulfADIAZINE (SILVADENE) 1 % cream Apply to affected area once daily. Magnesium Chloride (SLOW-MAG) 71.5 mg TbEC Take 1 tablet by mouth twice daily. glimepiride (AMARYL) 4 mg tablet Take 1 tablet by mouth twice daily with meals. lidocaine-prilocaine (EMLA) 2.5-2.5 % cream Apply to affected area as needed. ondansetron (ZOFRAN) 8 mg tablet Take 1 tablet by mouth every 8 hours as needed for nausea/vomiting. (Patient not taking: Reported on 04/02/2023) acetaminophen (TYLENOL EXTRA STRENGTH) 500 mg tablet Take 2 tablets by mouth every 6 hours as needed for pain. Lancets lancets Test one time daily, Insulin Dep? No E11.9 DM 2 alcohol swabs (ALCOHOL PADS) Test one time daily, Insulin Dep? No E11.9 DM 2 blood sugar diagnostic (BLOOD GLUCOSE TEST) test strip Test one time daily, Insulin Dep? No E11.9 DM 2 dulaglutide (TRULICITY) 3 mg/0.5 mL pen injector Inject 3 mg subcutaneously one time a week. Patient Assistance Medication. No current facility-administered medications for this visit. ALLERGIES No Known Allergies FILM GUIDELINES FOR HOLDING ANTI-PLATELET AND ANTI- COAGULATION THERAPY: None on file. NURSE SIGNATURE: Caitlyn Mondragon RN DATE: August 24, 2023 TIME: 1:17 PM [facility] 08-24-2023 History of Present illness Narrative Radiology Service Progress Note PATIENT NAME: Pricila Hooker DATE OF SERVICE: August 24, 2023 TIME: 12:26 PM PATIENT IDENTITY VERIFICATION COMPLETED USING TWO (2) IDENTIFIERS: Name and Date of confirmed by patient verbally. FALL SCREENING: Has the patient had 2 falls in the last year or 1 fall with injury or currently using an Ambulatory Assistive Device (Walker, Cane, Wheelchair, Crutches, etc.)? Yes, Patient High Risk for Falls What interventions were put in place to prevent falls during this visit? Increased Observations by Caregivers PATIENT GENDER DATA: Female. status: : No status: NO. PATIENT RELEVANT IMPLANT DATA REVIEWED: Not Applicable PATIENT PRESENTS WITH AN IMPLANTABLE OR ATTACHED KENNEL STAFF MEMBER: No RADIOLOGY DEPARTMENT: left hip ap/pelvis/lat PERIPHERAL IV DATA: Not applicable SIGNED BY: RT Patricia(R) August 24, 2023 12:26 PM documented in this encounter [facility] 08-24-2023 Telephone encounter Note RADIOLOGY CALL CENTER INTAKE CENTER REP: N/A EXT: N/A DATE: 08/24/23 TIME: 921 TRACKING #. N/A REQUESTING PERSON: ROSEANN IGNACIO PHONE/PAGER: [phone] REQUESTING STAFF: NORA BRANHAM DO PHONE/PAGER: [phone] SPECIFICS OF THE REQUEST: (Please be as detailed as possible. If request is lymph node biopsy, specify LOCATION of the node if possible): Right Lung, New lung nodules. H/O endometrial cancer. RUL nodule is largest but may be behind rib? (For example: biopsy liver mass or biopsy pelvic lymph node ) SPECIAL REQUESTS: TISSUE SAMPLE, LABWORK: Routine Evaluation -Fine needle aspiration (FNA), core biopsy, no preference, unsure, specific processing request for pathology (For example: send for [place], [place], HER2/[place] or possible lymphoma send in RPMI solution ) IS THIS REQUEST PART OF A RESEARCH PROTOCOL: No IF YES: List specifics of request and name/contact number of research coordinator and primary physician. 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 ALL OTHER CASES NEED IMAGING TO EVALUATE APPROPRIATENESS/FEASIBILITY OF THE REQUEST) IMAGING: [facility] (If the imaging was obtained outside the [facility] system, then it needs to be submitted for review prior to approval.) Note to all persons requesting biopsies: All biopsy requests will be scheduled as quickly as possible, based on the clinical urgency, availability of appointment times, the need to hold anti-thrombolytic therapy (aspirin, blood thinners) and the patient s schedule, including the need for an available crew truck driver. If a percutaneous biopsy or drainage is not felt to be safe or an alternative method for establishing a diagnosis is possible, this will be discussed directly with the requesting physician. 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 HPI: The patient is a 77-year-old female with a past medical history significant for hypertension, hyperlipidemia, GERD, type 2 diabetes (diagnosed about age 60; neuropathy), total knee replacement, former smoker and recent diagnosis of endometrial cancer. SURGERY & DATE: 07/24/2022 - Exam under anesthesia, total laparoscopic hysterectomy, bilateral salpingo-oophorectomy, sentinel lymph node mapping with excision of bilateral pelvic sentinel lymph nodes, and extensive lysis of adhesions. PATHOLOGY: A. Odum lymph node, right, biopsy: - Isolated tumor cells involving 1 of 2 lymph nodes; see comment. B. 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 C. Uterus with cervix, right and left fallopian tubes, and ovaries, hysterectomy and bilateral salpingo-oophorectomy: - Cervix: No significant pathologic abnormality. - Endomyometrium: Endometrial endometrioid carcinoma with squamous differentiation, FIGO grade 2, invading outer myometrium (18 mm out of 19 mm, 95%) and showing extensive/multifocal lymphovascular invasion and the microcystic, elongated, and fragmented (MELF) pattern of invasion; see comment and synoptic report. - Serosa: No significant pathologic abnormality. - Bilateral ovaries: Adhesions. - Right fallopian tube: Hematosalpinx, no definitive carcinoma. - Left fallopian tube: Metastatic carcinoma. Mismatch repair (MMR) interpretation: Deficient mismatch repair (dMMR) Results Mismatch Repair Protein Immunohistochemistry Results: MLH1: Loss of Nuclear Expression (subclonal/focal loss) PMS2: Loss of Nuclear Expression (subclonal/focal loss) MSH2: Normal/Intact Nuclear Expression MSH6: Normal/Intact Nuclear Expression IMAGING: CT ABD/PELVIS: 06/16/2022 IMPRESSION: 1. Findings compatible with cystitis. 2. Approximately 8.5 cm tubular/serpiginous cystic lesion in the right adnexal region suspect for hydrosalpinx though right ovarian cystic lesion not excluded with certainty. Mild infiltration of the surrounding fat raises suspicion for the possibility of superinfection. A few small bowel loops in the pelvis appear tethered around this right adnexal cystic lesion and a short segment of sigmoid colon abuts the posterior aspect of this right adnexal lesion. 3. Small volume pelvic free fluid. 4. Heterogeneous appearance of the uterus potentially related to fibroids. Further evaluation with dedicated pelvic ultrasound would be of value. CXR: 07/22/2022 IMPRESSION: Left basilar mild atelectasis. TUMOR BOARD: Management Options: -Recommend adjuvant treatment with systemic therapy, carbo/taxol +/- pembrolizumab -Referral to genetics Per initial consultation here: No vaginal discharge or bleeding. Bowels moving regularly. Good appetite. Pain is gone. Subjectively voiding to completion. Fingertip and toes numb. Had it approximately 3 years. Orthostasis if stands quickly. Balance has been "off" for about 6 months. Used to come in from [facility]. Uses cane and walker in the home. Lives in basement of sister's house. Capable of all ADLs independently. Uses shower chair. She and sister share cooking. Drives. Low back pain can limit her walking--symptoms are consistent with spinal stenosis. Current therapy: 1) Paclitaxel and carboplatin and pembrolizumab. First 2 cycles without pembrolizumab. Had EGD. Results noted. ?Gastroparesis. Was admitted to [facility] 01/24 ago for urosepsis. Admitted 2 days. Glimepiride was held. Completed antibiotic Wednesday. Had no urinary symptoms. Family found her at the table acting disoriented. Previously saw carrier associate at [facility] for reduced EF. Started on Jaurdiance. Presents for ongoing oncologic management. Interim history: Neuropathy has gotten worse. She is having a hard time discerning hot and cold dishes when cooking. Has not burned her finger several times when touching hot dishes. Also neuropathy becoming more painful and extending into the calves bilaterally. No respiratory symptoms. No recent symptoms of cough, wheeze or URI symptoms. Plan left hip pain. Pain centers around posterior portion of greater trochanter on left. Radiates to the knee. PMH, medications and allergies personally reviewed by me today. Any changes documented in appropriate section. PHYSICAL EXAM: Vitals: Blood pressure 136/72, pulse 82, temperature 36.6 C (97.9 F), temperature source Temporal, weight 131.8 kg (290 lb 8 oz), SpO2 91%. Well-appearing and in no acute distress. EYES: Sclerae are anicteric bilaterally. LYMPHATIC: There is no palpable cervical or supraclavicular, adenopathy. RESPIRATORY: Inspiratory breath sounds are of diminished intensity in all thompson. No rales, wheezes or rhonchi. CARDIOVASCULAR: Rhythm is regular. ABDOMEN: The abdomen is nondistended. 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 -KPS is 70-80%. -Significant comorbid conditions including type 2 diabetes with pre-existing sensory neuropathy. She had impaired gait and mobility from spinal stenosis as well. Nonetheless she stood to benefit significantly from adjuvant therapy with carboplatin, paclitaxel and pembrolizumab based on the reported results of the NRG-GY018 trial. -Pembrolizumab was added with cycle #3. Received 5 cycles. Therapy held following due to worsening neuropathy and general decline. -Completed sixth cycle of carboplatin and Taxol without pembrolizumab. Neuropathy no worse. 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 -I personally reviewed CT images and again with patient and independently verified and agreed with the radiologist's findings. Discussed process for determining if the largest, 10 mm nodule in the right upper lobe can be biopsied. -New left hip pain. -Worsening neuropathy was positive symptoms. Plan: -Request for imaging guided biopsy lung nodule submitted. -Plain film x-ray left hip today. -Rx Cymbalta 60 mg daily. -Follow-up plan to be determined once above completed. -Follow-up with cardiology [facility]. Portions of this documentation were copied and pasted from previous office visit notes in order to provide a cohesive continuity of the history. The note has been reviewed and edited and updated as necessary. Nora Branham DO documented in this encounter [facility] 08-10-2023 History of Present illness Narrative Radiology Service Progress Note DATE OF SERVICE: August 10, 2023 TIME: 4:12 PM PATIENT IDENTITY VERIFICATION COMPLETED USING TWO (2) STANDARD IDENTIFIERS: Name and Date of confirmed by patient verbally. FALL SCREENING: Has the patient had 2 falls in the last year or 1 fall with injury or currently using an Ambulatory Assistive Device (Walker, Cane, Wheelchair, Crutches, etc.)? No PATIENT GENDER DATA: Female. status: : No status: NO. PATIENT RELEVANT IMPLANT DATA REVIEWED: Yes PATIENT PRESENTS WITH AN IMPLANTABLE OR ATTACHED KENNEL STAFF MEMBER: No ALLERGIES: Reviewed and unchanged CONTRAST ALLERGY: NO. EXAM: CT -CONTRAST INDUCED NEPHROPATHY RISK FACTORS: Patient age > 60 years CREATININE: Creatinine Date Value Ref Range Status 08/10/2023 0.87 0.58 - 0.96 mg/dL Final 06/08/2023 0.87 0.58 - 0.96 mg/dL Final 06/02/2023 0.80 0.58 - 0.96 mg/dL Final Estimated Glomerular Filtration Rate Date Value Ref Range Status 08/10/2023 69 >=60 mL/min/1.73m Final Comment: Estimated Glomerular Filtration Rate (eGFR) is calculated using the 2020 CKD-EPI creatinine equation. This equation utilizes serum creatinine, sex, and age as parameters. The creatinine assay has traceable calibration to isotope dilution-mass spectrometry. Refer to KDIGO guidelines for clinical interpretation. In patients with unstable renal function, e.g. those with acute kidney injury, the eGFR may not accurately reflect actual GFR. eGFR- Date Value Ref Range Status 03/28/2020 >60 Final P.O.C.T. RESULTS: POC done: Yes, See Lab Tab August 10, 2023 TREATMENT: N/A PERIPHERAL IV DATA: Ambulatory: A peripheral IV was started in the Left antecubital site with a Angio cath: 22 gauge. RADIOLOGY DEPARTMENT: CT; Exam(s) Completed: Chest Abdomen Pelvis SIGNATURE: RT Adi(R) PATIENT NAME: Pricila Hooker DATE: August 10, 2023 TIME: 4:12 PM documented in this encounter [facility] 08-06-2023 Miscellaneous Notes OK to refill as ordered Vinh Van MD [facility]-03/24/23 Labs-06/08/23 NOV-My chart message sent to schedule yearly exam. Cydney Reagan LPN documented in this encounter [facility] 08-06-2023 Telephone encounter Note OK to refill as ordered Vinh Van MD [facility] 08-06-2023 Telephone encounter Note [facility]-03/24/23 Labs-06/08/23 NOV-My chart message sent to schedule yearly exam. Cydney Reagan LPN [facility] 08-03-2023 History of Present illness Narrative Heart[facility] Vascular [facility] Thor[facility] [place] Department of Cardiovascular Medicine TELEPHONE VISIT (audio only) PROGRESS NOTE This is a telephone encounter initiated for an established patient. The patient, parent or guardian is not originating from a related Evaluation & Management service provided within the previous 7 days nor leading to an Evaluation & Management service or procedure within the next 24 hours or soonest available appointment. I have communicated my name and active licensure. The patient's identity and physical location were verified at the time of this visit. Either the patient or their legal technical service representative has been informed of the risks and benefits of -- and alternatives to -- treatment through a remote evaluation and consents to proceed with the evaluation remotely. Pricila Hooker has consented to this telephone encounter. 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 She was diagnosed with endometrial cancer, had adjuvant treatment with carboplatin, paclitaxel and pembrolizumab. While at another hospital, noted to have LVEF 45% while on pembrolizumab. At that time, she was not treated with steroids due to reported hyperglycemia. No evidence of ischemia on MPI. Ziopatch showed rare ectopic beats all < 1.0%. Attempted to start her on GDMT but limited by hypotension so lisinopril was discontinued. She had 2 UTI's while on jardiance, one of which required hospital admission for urosepsis and lactic acidosis. Weight has been stable. No chest pain, palpitations, GUY, LE swelling. Prior smoking history. No alcohol or drug use Reported local radiation therapy for her endometrial cancer but no reported chest radiation. Had LHC done on 05/11/23 showing mild-mod non obstructive CAD. RHC showed low filling pressure and reduced CI. CMRI showed no evidence of LGE. LVEF 49% BP has been on the higher side BP 140-160mmHg HR 80-90s Data Reviewed: Most recent labs and imaging results. 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 She has diagnosed endometrial cancer, had adjuvant treatment with carboplatin, paclitaxel and pembrolizumab. While at another hospital, noted to have LVEF 45% while on pembrolizumab. At that time, she was not treated with steroids due to reported hyperglycemia. No evidence of ischemia on MPI. Ziopatch showed rare ectopic beats all < 1.0%. Attempted to start her on GDMT but limited by hypotension so lisinopril was discontinued. She is on low dose coreg. She had 2 UTI's while on jardiance, one of which required hospital admission for urosepsis and lactic acidosis. 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 No evidence of LGE. LHC showed mild-mod non obstructive CAD. RHC showed low filling pressure and reduced CI. Will continue to optimize meds DM type 2 complicated by neuropathy CAD - aspirin, statin HTN - uncontrolled Heart Failure specific medications (list current, note updates or changes, note prior intolerance): BB: Increase Coreg 6.25mg BID ACEI/ARB/ARNI: Valsartan 80mg BID MRA: - SGLT2: Stop jardiance given recurrent UTI x2 in the past 2 months with septic shock Diuretic: - Digoxin: - Vasodilators: - Anti-arrhythmics: - Ivabradine: - Other anti-HTN: - Others: Aspirin, statin PLAN AND RECOMMENDATIONS: - Meds as above - If BP remains elevated, will increase valsartan - Daily weight and BP check Follow-up in 3 months Total Time Spent: 21-30 minutes Farshad Marie MD documented in this encounter [facility] 08-02-2023 History of Present illness Narrative POPULATION HEALTH NAVIGATION OUTREACH Action/FYI Patient is on [facility] CURRENT ROSTER Workbench list for below and needs appointment to address: Covid-19 Vaccine(1) Shingrix Vaccine(1 of 2) RSV Vaccine(1 - 1-dose 60+ series) Dilated Retinal Exam Diabetic Foot Exam Urine Albumin:Creatinine Ratio LDL Cholesterol HbA1C Advance Directive Discussion Behavioral Health Screening Hemoglobin A1C (%) Date Value 07/22/2022 8.0 07/11/2020 9.7 Patient due for: Medicare Annual Wellness Visit HBA1C Advance Directives Left message for patient to call back. Sent Cell[employer] message. AD already on file Reason for Outreach Care Gap/HCC or Scheduling Wellness Visits Care Gaps due: Medicare Annual Wellness Visit HBA1C Patient Contacted: Unable or unnecessary to reach patient: Left message MyChart message sent [facility] related Navigation Signature: Carey Lanier MA August 02, 2023 10:01 AM documented in this encounter [facility] 06-29-2023 Telephone encounter Note Call from patient requesting refill. Requested Prescriptions Pending Prescriptions Disp Refills valsartan (DIOVAN) 40 mg tablet 90 tablet 3 Sig: Take 1 tablet by mouth once daily. Patient last seen 05/26/23 Yun Franco [facility] 06-29-2023 Miscellaneous Notes Call from patient requesting refill. Requested Prescriptions Pending Prescriptions Disp Refills valsartan (DIOVAN) 40 mg tablet 90 tablet 3 Sig: Take 1 tablet by mouth once daily. Patient last seen 05/26/23 Yun Franco documented in this encounter [facility] 06-18-2023 History of Present illness Narrative Radiology Service Progress Note DATE OF SERVICE: June 18, 2023 TIME: 11:44 AM PATIENT WEIGHT: 261LBS PATIENT IDENTITY VERIFICATION COMPLETED USING TWO (2) STANDARD IDENTIFIERS: Name and Date of confirmed by patient verbally and Name and Date of confirmed by identification band. FALL SCREENING: Has the patient had 2 falls in the last year or 1 fall with injury or currently using an Ambulatory Assistive Device (Walker, Cane, Wheelchair, Crutches, etc.)? No PATIENT GENDER DATA: Female. status: : No status: NO. ALLERGIES: Reviewed and unchanged CONTRAST ALLERGY: No EXAM: MRI - CONTRAST TYPE: GROUP II IV SITE: Ambulatory: A peripheral IV was started in the Right forearm with a Angio cath: 22 gauge. and A Saline lock was inserted per protocol IV SITE APPEARANCE: Clean,Dry and Intact SIGNATURE: Eddie Reed RN PATIENT NAME: Pricila Hooker DATE: June 18, 2023 TIME: 11:44 AM Radiology Service Progress Note PATIENT NAME: Pricila Hooker DATE OF SERVICE: June 18, 2023 TIME: 12:41 PM PATIENT IDENTITY VERIFICATION COMPLETED USING TWO (2) IDENTIFIERS: Name and Date of confirmed by patient verbally and Name and Date of confirmed by identification band. FALL SCREENING: Has the patient had 2 falls in the last year or 1 fall with injury or currently using an Ambulatory Assistive Device (Walker, Cane, Wheelchair, Crutches, etc.)? Yes, Patient High Risk for Falls What interventions were put in place to prevent falls during this visit? Non-Skid Socks Used, Yellow "Falls Risk Wristband" Applied, Instructed Patient to Call for Help if Needed, Offered Assistance with Transfers/Clothing, Instructed Patient to Remain Seated (Not on Exam Table) Until Exam, Increased Observations by Caregivers, and Patient Refused Interventions/Assistance PATIENT GENDER DATA: Female. status: : No status: NO. PATIENT RELEVANT IMPLANT DATA REVIEWED: Yes PATIENT PRESENTS WITH AN IMPLANTABLE OR ATTACHED KENNEL STAFF MEMBER: No RADIOLOGY DEPARTMENT: MR; Exam(s) Completed: Cardiac: Cardiac PERIPHERAL IV DATA: Site assessment: Clean,Dry and Intact, Site disposition Discontinued SIGNED BY: RT Roman(R), Kassy MIGUEL June 18, 2023 12:41 PM documented in this encounter [facility] 06-10-2023 Miscellaneous Notes OK to refill as ordered Vinh Van MD Patient has been identified by name and date of : Yes Requested Prescriptions Pending Prescriptions Disp Refills gabapentin (NEURONTIN) 100 mg capsule 180 capsule Sig: Take 1 capsule by mouth two times a day for 90 days. RX INSTRUCTIONS: Patient aware RX will be sent to pharmacy. No need to notify patient. [facility] 03/24/23 No upcoming visit scheduled. Eli Elaine LPN Pricila is calling Vinh Van MD today to request patient requesting medication not on list Patient requesting gabapentin (NEURONTIN) 100 mg capsule and is asking for medication to be called into [email or web address]. Patient has been identified by name and birthdate. Duration of symptoms: N/A Person calling: self Call patient at: on cell [phone] (home) [phone] (cell) Was an appointment scheduled: No Closing statement: Results or non-symptom based questions: Thank you for calling [facility], your call will be returned within the next business day. 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 HPI: The patient is a 77-year-old female with a past medical history significant for hypertension, hyperlipidemia, GERD, type 2 diabetes (diagnosed about age 60; neuropathy), total knee replacement, former smoker and recent diagnosis of endometrial cancer. SURGERY & DATE: 07/24/2022 - Exam under anesthesia, total laparoscopic hysterectomy, bilateral salpingo-oophorectomy, sentinel lymph node mapping with excision of bilateral pelvic sentinel lymph nodes, and extensive lysis of adhesions. PATHOLOGY: A. Odum lymph node, right, biopsy: - Isolated tumor cells involving 1 of 2 lymph nodes; see comment. B. 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 C. Uterus with cervix, right and left fallopian tubes, and ovaries, hysterectomy and bilateral salpingo-oophorectomy: - Cervix: No significant pathologic abnormality. - Endomyometrium: Endometrial endometrioid carcinoma with squamous differentiation, FIGO grade 2, invading outer myometrium (18 mm out of 19 mm, 95%) and showing extensive/multifocal lymphovascular invasion and the microcystic, elongated, and fragmented (MELF) pattern of invasion; see comment and synoptic report. - Serosa: No significant pathologic abnormality. - Bilateral ovaries: Adhesions. - Right fallopian tube: Hematosalpinx, no definitive carcinoma. - Left fallopian tube: Metastatic carcinoma. Mismatch repair (MMR) interpretation: Deficient mismatch repair (dMMR) Results Mismatch Repair Protein Immunohistochemistry Results: MLH1: Loss of Nuclear Expression (subclonal/focal loss) PMS2: Loss of Nuclear Expression (subclonal/focal loss) MSH2: Normal/Intact Nuclear Expression MSH6: Normal/Intact Nuclear Expression IMAGING: CT ABD/PELVIS: 06/16/2022 IMPRESSION: 1. Findings compatible with cystitis. 2. Approximately 8.5 cm tubular/serpiginous cystic lesion in the right adnexal region suspect for hydrosalpinx though right ovarian cystic lesion not excluded with certainty. Mild infiltration of the surrounding fat raises suspicion for the possibility of superinfection. A few small bowel loops in the pelvis appear tethered around this right adnexal cystic lesion and a short segment of sigmoid colon abuts the posterior aspect of this right adnexal lesion. 3. Small volume pelvic free fluid. 4. Heterogeneous appearance of the uterus potentially related to fibroids. Further evaluation with dedicated pelvic ultrasound would be of value. CXR: 07/22/2022 IMPRESSION: Left basilar mild atelectasis. TUMOR BOARD: Management Options: -Recommend adjuvant treatment with systemic therapy, carbo/taxol +/- pembrolizumab -Referral to genetics Per initial consultation here: No vaginal discharge or bleeding. Bowels moving regularly. Good appetite. Pain is gone. Subjectively voiding to completion. Fingertip and toes numb. Had it approximately 3 years. Orthostasis if stands quickly. Balance has been "off" for about 6 months. Used to come in from [facility] [place]. Uses cane and walker in the home. Lives in basement of sister's house. Capable of all ADLs independently. Uses shower chair. She and sister share cooking. Drives. Low back pain can limit her walking--symptoms are consistent with spinal stenosis. Current therapy: 1) Paclitaxel and carboplatin and pembrolizumab. First 2 cycles without pembrolizumab. Had EGD. Results noted. ?Gastroparesis. Was admitted to [facility] 01/24 ago for urosepsis. Admitted 2 days. Glimepiride was held. Completed antibiotic Wednesday. Had no urinary symptoms. Family found her at the table acting disoriented. Previously saw carrier associate at [facility] for reduced EF. Started on Jaurdiance. Presents for ongoing oncologic management. Interim history: Occasional mild orthostasis. Nothing like it was. Vision improved. Continues with retina specialist. Fingertip numbness stable. Feet neuropathy stable numbness as well. Able to feel small things with soles of feet when walking. PMH, medications and allergies personally reviewed by me today. Any changes documented in appropriate section. PHYSICAL EXAM: Vitals: Blood pressure 118/77, pulse 92, temperature 36.7 C (98.1 F), temperature source Temporal, weight 127.7 kg (281 lb 8 oz), SpO2 91%. Well-appearing and in no acute distress. EYES: Sclerae are anicteric bilaterally. LYMPHATIC: There is no palpable cervical or supraclavicular, adenopathy. RESPIRATORY: Inspiratory breath sounds are of diminished intensity in all thompson. No rales, wheezes or rhonchi. CARDIOVASCULAR: Rhythm is regular. ABDOMEN: The abdomen is nondistended. 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 -KPS is 70-80%. -Significant comorbid conditions including type 2 diabetes with pre-existing sensory neuropathy. She had impaired gait and mobility from spinal stenosis as well. Nonetheless she stood to benefit significantly from adjuvant therapy. -Adjuvant therapy with carboplatin, paclitaxel and pembrolizumab based on the reported results of the [id number] trial. -Pembrolizumab was added with cycle #3. Received 5 cycles. Therapy held following due to worsening neuropathy and general decline. -Completed sixth cycle of carboplatin and Taxol without pembrolizumab. Neuropathy no worse. 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 -Chronic mild hypomagnesemia. Plan: -Off cancer directed therapy altogether for the time being. -Scheduled for cardiac MRI. -Lab work along with CT chest, abdomen pelvis prior to next office visit in about 2 months. -Follow-up with PCP for management of diabetes. -Genetics. Portions of this documentation were copied and pasted from previous office visit notes in order to provide a cohesive continuity of the history. The note has been reviewed and edited and updated as necessary. I spent a total of 20 minutes on the date of the service which included preparing to see the patient, [id number] patient care, completing clinical documentation, obtaining and/or reviewing separately obtained history, performing a medically appropriate examination, counseling and educating the patient/family/caregiver, ordering medications, tests, or procedures, communicating with other HCPs (not separately reported), and communicating results to the patient/family/caregiver. Nora Branham DO documented in this encounter [facility] 05-26-2023 History of Present illness Narrative Heart, Vascular & Thoracic [place] Department of Cardiovascular Medicine VIRTUAL VIDEO VISIT ESTABLISHED OUTPATIENT VISIT SERVICE DATE: 05/26/2023 Patient: Pricila Hooker SERVICE TIME: 8:44 AM : 1945 This is a virtual video visit. It required patient-provider interaction for the medical decision making as documented below. Pricila Hooker has consented to this video encounter. I have communicated my name and active licensure. The patient's identity and physical location were verified at the time of this visit. Either the patient or their legal technical service representative has been informed of the risks and benefits of -- and alternatives to -- treatment through a remote evaluation and consents to proceed with the evaluation remotely. Pricila Hooker is a 77 year old female seen for follow-up . 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 She was diagnosed with endometrial cancer, had adjuvant treatment with carboplatin, paclitaxel and pembrolizumab. While at another hospital, noted to have LVEF 45% while on pembrolizumab. At that time, she was not treated with steroids due to reported hyperglycemia. No evidence of ischemia on MPI. Ziopatch showed rare ectopic beats all < 1.0%. Attempted to start her on GDMT but limited by hypotension so lisinopril was discontinued. She is on low dose coreg. She had 2 UTI's while on jardiance, one of which required hospital admission for urosepsis and lactic acidosis. Weight has been stable. No chest pain, palpitations, GUY, LE swelling. Prior smoking history No alcohol or drug use Reported local radiation therapy for her endometrial cancer but no reported chest radiation. Had LHC done on 05/11/23 showing mild-mod non obstructive CAD. RHC showed low filling pressure and reduced CI. Otherwise she has been doing well. BP has been on the higher side PAST MEDICAL HISTORY Diagnosis Date Acute cholecystitis 01/04/2007 Arthritis Benign neoplasm of colon Diabetes mellitus without mention of complication Endometrial cancer (HCC) GERD (gastroesophageal reflux disease) Hemorrhoids Hypercholesteremia Hypertension Neuropathy Osteoarthritis of multiple joints PAST SURGICAL HISTORY Procedure Laterality Date ABDOMINAL SURGERY HX ARTHRP KNE CONDYLE&PLATU MEDIAL&LAT COMPARTMENTS 05/11/2011 Knee replacement, total right ARTHRP KNE CONDYLE&PLATU MEDIAL&LAT COMPARTMENTS 01/2011 left CATARACT EXTRACTION HX Left COLONOSCOPY FLX DX W/COLLJ SPEC WHEN PFRMD 12/28/2007 Colonoscopy COLONOSCOPY FLX DX W/COLLJ SPEC WHEN PFRMD 06/17/2012 Colonoscopy COLONOSCOPY FLX DX W/COLLJ SPEC WHEN PFRMD 11/05/2017 Colonoscopy EGD W/O BRSH SPEC VARICIES INJ 11/25/2022 EYE SURGERY HX JOINT REPLACEMENT HX LAPS SURG CHOLECYSTECTOMY W/CHOLANGIOGRAPHY 01/04/2007 LAPS TOTAL HYSTERECT 250 GM/< W/RMVL TUBE/OVARY 07/24/2022 Exam under anesthesia, total laparoscopic hysterectomy, bilateral salpingo-oophorectomy, sentinel lymph node mapping with excision of bilateral pelvic sentinel lymph nodes, and extensive lysis of adhesions. FAMILY HISTORY Problem Relation Age of Onset Heart Mother irregular heart rate Colon Cancer Mother Stroke Mother Heart Father from heart attack Colon Cancer Maternal Grandfather Social History Tobacco Use Smoking status: Former Packs/day: 0.50 Years: 20.00 Additional pack years: 0.00 Total pack years: 10.00 Types: Cigarettes Quit date: 11/05/1977 Years since quittin.5 Smokeless tobacco: Never Vaping Use Vaping Use: Never used Substance Use Topics Alcohol use: No Drug use: No ALLERGIES No Known Allergies CURRENT MEDICATIONS valsartan (DIOVAN) 40 mg tablet Take 1 tablet by mouth once daily. aspirin 81 mg cap Take 81 mg by mouth once daily. carvedilol (COREG) 3.125 mg tablet Take 3.125 mg by mouth two times a day with meals. atorvastatin (LIPITOR) 40 mg tablet TAKE 1 TABLET BY MOUTH ONCE DAILY AT BEDTIME FOR CHOLESTEROL metFORMIN (GLUCOPHAGE) 500 mg tablet Take 2 tablets by mouth two times a day with meals. . Blood Pressure Monitor Take your blood pressure everyday and keep a log cefdinir (OMNICEF) 300 mg capsule Take 300 mg by mouth two times a day. (Patient not taking: Reported on 03/24/2023) gabapentin (NEURONTIN) 100 mg capsule Take 1 capsule by mouth three times a day for 90 days. (Patient taking differently: Take 100 mg by mouth two times a day.) amitriptyline (ELAVIL) 50 mg tablet take 1 tablet by mouth once daily at bedtime silver sulfADIAZINE (SILVADENE) 1 % cream Apply to affected area once daily. Magnesium Chloride (SLOW-MAG) 71.5 mg TbEC Take 1 tablet by mouth twice daily. pembrolizumab (KEYTRUDA) 25 mg/mL injection Inject 200 mg intravenously every 3 weeks for 16 doses. glimepiride (AMARYL) 4 mg tablet Take 1 tablet by mouth twice daily with meals. lidocaine-prilocaine (EMLA) 2.5-2.5 % cream Apply to affected area as needed. ondansetron (ZOFRAN) 8 mg tablet Take 1 tablet by mouth every 8 hours as needed for nausea/vomiting. (Patient not taking: Reported on 04/02/2023) acetaminophen (TYLENOL EXTRA STRENGTH) 500 mg tablet Take 2 tablets by mouth every 6 hours as needed for pain. Lancets lancets Test one time daily, Insulin Dep? No E11.9 DM 2 alcohol swabs (ALCOHOL PADS) Test one time daily, Insulin Dep? No E11.9 DM 2 blood sugar diagnostic (BLOOD GLUCOSE TEST) test strip Test one time daily, Insulin Dep? No E11.9 DM 2 dulaglutide (TRULICITY) 3 mg/0.5 mL pen injector Inject 3 mg subcutaneously one time a week. Patient Assistance Medication. REVIEW OF SYSTEMS: GENERAL: Negative for: Weight loss or gain, Fever or Chills, Weakness and Sleep difficulties. HEENT: Negative for: Headache, Impaired Vision, Glasses, Hearing Impairment, Ringing in Ears, Nosebleeds, Poor dental care, Bleeding Gums, Dentures NECK: Negative for: Swelling, Pain, Stiffness RESPIRATORY: Negative for: Cough, Blood in Sputum, Shortness of breath, Wheezing, Apnea GASTROINTESTINAL: Negative for: Trouble swallowing, Heartburn, Change in bowel habits, Blood in stool, Dark black stools MUSCULOSKELETAL: Negative for: Muscle or joint pain, Stiffness , Joint swelling NEUROLOGIC/PSYCHIATRIC: Negative for: Weakness, Paralysis, Numbness, Tingling, Tremor, Nervousness, Depressed mood, Memory loss SKIN: Negative for: Rashes, Itching HEMATOLOGICAL/LYMPHATIC: Negative for: Easy bruising , Easy bleeding ENDOCRINE: Negative for: Heat or cold intolerance, Excessive sweating, Frequent urination, Frequent thirst PHYSICAL EXAMINATION: VIDEO EXAM: (if completed, performed via video enabled technology) No exam performed PATIENT ENTERED QUESTIONNAIRE SCORES ALERT: PHQ-9 Score: 13 indicates Moderate to Severe Depression 05/25/2023 04/20/2023 PHQ-9 Score 13 12 04/20/2023 PROMIS Global Health - (T-Scores - the mean of general population = 50. Five points is a clinically meaningful difference.) Physical T-Score 34.9 34.9 Mental T-Score 43.5 43.5 ADDITIONAL PROCEDURES: CORONARY ANGIOGRAPHY: LEFT MAIN TRUNK: No Stenosis LEFT ANTERIOR DESCENDIN to 50% mid stenosis and what appeared to be an intramyocardial segment. DIAGONAL #1: Minimal atherosclerotic disease LEFT CIRCUMFLEX: Minimal atherosclerotic disease MARGINAL #1: Minimal atherosclerotic disease DOMINANT: NO RIGHT CORONARY: Minimal atherosclerotic disease DOMINANT: YES POSTERIOR DESCENDING: Minimal atherosclerotic disease POSTERIOR LATERAL: Minimal atherosclerotic disease LV GRAM: LVEF: Mildly Abnormal (45%) WALL MOTION: Abnormal Global MITRAL VALVE REGURGITATION: Mild HEMODYNAMICS: LVEDP: 23 mmHg LV - AORTA: No Gradient RIGHT HEART CATHETERIZATION & FINDINGS: Under local anesthesic with 2% Lidocaine, the vessel was cannulated directly using a Cook needle and a 7F sheath was inserted percutaneously over the wire using a [place] Ernesto catheter. The catheter was advanced under fluoroscopy through the right atrium, right ventricle, pulmonary artery and wedge position. Pressure measurements were obtained. Cardiac output was completed using thermodilution technique. RIGHT HEMODYNAMICS: Right Atrium: 5 Right Ventricle: 42/2 Pulmonary Artery: 42 /7/23 PCWP: 8 Cardiac Output: 4.30 Cardiac Index: 1.89 SVR: 1637 PVR: 428 ASSESSMENT: NYHA Functional Class: III Stage: C heart failure Target weight: 265lbs BMI 41.5kg/m2 77F with history of Stage IIIC endometrial endometrioid carcinoma with squamous differentiation s/p TASNEEM BSO 07/24/22, Type 2 DM who presents to clinic to establish care. She has diagnosed endometrial cancer, had adjuvant treatment with carboplatin, paclitaxel and pembrolizumab. While at another hospital, noted to have LVEF 45% while on pembrolizumab. At that time, she was not treated with steroids due to reported hyperglycemia. No evidence of ischemia on MPI. Ziopatch showed rare ectopic beats all < 1.0%. Attempted to start her on GDMT but limited by hypotension so lisinopril was discontinued. She is on low dose coreg. She had 2 UTI's while on jardiance, one of which required hospital admission for urosepsis and lactic acidosis. 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 She has not had CMRI to assess for myocarditis and was never on steroids. Will order CMRI for further evaluation. LHC showed mild-mod non obstructive CAD. RHC showed low filling pressure and reduced CI. Will continue to optimize meds DM type 2 complicated by neuropathy CAD - aspirin, statin Heart Failure specific medications (list current, note updates or changes, note prior intolerance): BB: Coreg 3.125mg BID ACEI/ARB/ARNI: Increase valsartan to 40mg BID MRA: - SGLT2: Stop jardiance given recurrent UTI x2 in the past 2 months with septic shock Diuretic: - Digoxin: - Vasodilators: - Anti-arrhythmics: - Ivabradine: - Other anti-HTN: - Others: Aspirin, statin PLAN AND RECOMMENDATIONS: - Repeat labs one week after increasing valsartan - Counseled on low potassium diet - Daily weight and BP check - CMRI I personally spent 35 minutes in total time involved in the management and care of this patient. Farshad Marie MD May 26, 2023 8:07 AM Answers submitted by the patient for this visit: Review of Systems Heart Failure (Submitted on 05/25/2023) Fever : No Night sweats: No Recent unintentional weight change: No Vision Disturbance: No Hearing Loss: No A cough: Yes Difficulty Breathing?: No Chest pain: No Leg Swelling: No Skipping or irregular heartbeats?: Yes Feel like passing out?: No Black tarry stools: No Nausea: No Diarrhea: No Swelling in your abdomen?: No Fill up quickly when you eat?: Yes Difficulty Urinating?: No Joint pain or stiffness: Yes Muscle aches: Yes A rash: No Dizziness: No Headaches: Yes documented in this encounter [facility] 05-20-2023 History of Present illness Narrative POPULATION HEALTH NAVIGATION OUTREACH Action/FYI Contacted patient to schedule [facility] Annual Wellness Visit and HCCs due. 1st attempt: Left message with my direct number 2nd attempt: My Chart message sent Reason for Outreach Care Gap/HCC or Scheduling Wellness Visits Care Gaps due: Annual Wellness Exam Diabetic Eye Exam HGB A1C Flu Vaccine Patient Contacted: Unable or unnecessary to reach patient: Left message MyChart message sent HCC related Navigation Signature: Lupe Jackson MA May 20, 2023 8:17 AM documented in this encounter [facility] 05-04-2023 Miscellaneous Notes Spoke with Pricila Humphrey's sister to schedule [facility]. Dr Smart ordered C. Explained Martha has a diagnostic metallurgy laboratory technician and any intervention required would be done at another facility. She wished to continue and schedule at [place]. Both Milagro and I will message Dr Smart to assure this is acceptable. [facility] scheduled for 05/10. They will receive a call Wednesday with a time. OK to take Trulicity today, but do not take next Wednesday. Hold metformin morning of C. NPO after MN, meds with sips of water. Entrance A to 1st floor surgical area. Will kelsey a crew truck driver to and from hospital. documented in this encounter [facility] 05-04-2023 Miscellaneous Notes Unable to reach sister Milagro. Left detailed message on identified VM. Karely Norman MA Please let the patient know that I have sent. The following approved medication requests have been transmitted electronically. Requested Prescriptions Pending Prescriptions Disp Refills metFORMIN (GLUCOPHAGE) 500 mg tablet 360 tablet 3 Sig: Take 2 tablets by mouth two times a day with meals. . Supa Matute APRN.SOLO Patient's sister calling stating to check the status of her refill. Patient is out of the medication. Please return call to sister Milagro Barboza [phone] Last Rx: 03/23/22 #360 w/3. Last OV: 03/24/23 Next OV: None Talia Alba Ma Patient stated she spoke to the office for a refill last week and she is out of the medication. Please expedite today and she asked for a call when this is sent to the pharmacy. Patient has been identified by name and date of : Yes Patient phones for refill(s): Requested Prescriptions Pending Prescriptions Disp Refills metFORMIN (GLUCOPHAGE) 500 mg tablet 360 tablet 3 Sig: Take 2 tablets by mouth two times a day with meals. . Date of last office visit in primary care: 03/24/2023 Date of next office visit in primary care: Visit date not found Please advise. Thank you. Zoila Charles. documented in this encounter [facility] 04-27-2023 Miscellaneous Notes Cancel as directed [place] Stacy Per Dr. Branham, pt. Waiting to undergo a cardiac cath no need for appt. Today can will be canceling all upcoming treatments until after the catheterization. Pt. Voiced understanding. PSS please cancel all appts. here Until 06/07 , pt. Instructed to keep lab appt. And OV for that day. documented in this encounter [facility] 04-20-2023 History of Present illness Narrative Heart, Vascular & Thoracic [place] Department of Cardiovascular Medicine VIRTUAL VIDEO VISIT ESTABLISHED OUTPATIENT VISIT SERVICE DATE: 04/20/2023 Patient: Pricila Hooker SERVICE TIME: 8:58 AM : 1945 This is a virtual video visit. It required patient-provider interaction for the medical decision making as documented below. Pricila Hooker has consented to this video encounter. I have communicated my name and active licensure. The patient's identity and physical location were verified at the time of this visit. Either the patient or their legal technical service representative has been informed of the risks and benefits of -- and alternatives to -- treatment through a remote evaluation and consents to proceed with the evaluation remotely. Pricila Hooker is a 77 year old female seen for follow-up. CHIEF COMPLAINT Follow-up HISTORY OF PRESENT ILLNESS 77F with history of Stage IIIC endometrial endometrioid carcinoma with squamous differentiation s/p TASNEEM BSO 07/24/22, Type 2 DM who presents to clinic to establish care. She was diagnosed with endometrial cancer, had adjuvant treatment with carboplatin, paclitaxel and pembrolizumab. While at another hospital, noted to have LVEF 45% while on pembrolizumab. At that time, she was not treated with steroids due to reported hyperglycemia. No evidence of ischemia on MPI. Ziopatch showed rare ectopic beats all < 1.0%. Attempted to start her on GDMT but limited by hypotension so lisinopril was discontinued. She is on low dose coreg. She had 2 UTI's while on jardiance, one of which required hospital admission for urosepsis and lactic acidosis. She continues to endorse episodes of GUY with walking short distances. Weight has been stable. No chest pain, palpitations. Was admitted 04/10-2/12 for dizziness and hypotension. Noted improvement with hydration. Prior smoking history No alcohol or drug use Reported local radiation therapy for her endometrial cancer but no reported chest radiation. PAST MEDICAL HISTORY Diagnosis Date Acute cholecystitis 01/04/2007 Arthritis Benign neoplasm of colon Diabetes mellitus without mention of complication Endometrial cancer (HCC) GERD (gastroesophageal reflux disease) Hemorrhoids Hypercholesteremia Hypertension Neuropathy Osteoarthritis of multiple joints PAST SURGICAL HISTORY Procedure Laterality Date ABDOMINAL SURGERY HX ARTHRP KNE CONDYLE&PLATU MEDIAL&LAT COMPARTMENTS 05/11/2011 Knee replacement, total right ARTHRP KNE CONDYLE&PLATU MEDIAL&LAT COMPARTMENTS 01/2011 left CATARACT EXTRACTION HX Left COLONOSCOPY FLX DX W/COLLJ SPEC WHEN PFRMD 12/28/2007 Colonoscopy COLONOSCOPY FLX DX W/COLLJ SPEC WHEN PFRMD 06/17/2012 Colonoscopy COLONOSCOPY FLX DX W/COLLJ SPEC WHEN PFRMD 11/05/2017 Colonoscopy EGD W/O BRSH SPEC VARICIES INJ 11/25/2022 EYE SURGERY HX JOINT REPLACEMENT HX LAPS SURG CHOLECYSTECTOMY W/CHOLANGIOGRAPHY 01/04/2007 LAPS TOTAL HYSTERECT 250 GM/< W/RMVL TUBE/OVARY 07/24/2022 Exam under anesthesia, total laparoscopic hysterectomy, bilateral salpingo-oophorectomy, sentinel lymph node mapping with excision of bilateral pelvic sentinel lymph nodes, and extensive lysis of adhesions. FAMILY HISTORY Problem Relation Age of Onset Heart Mother irregular heart rate Colon Cancer Mother Stroke Mother Heart Father from heart attack Colon Cancer Maternal Grandfather Social History Tobacco Use Smoking status: Former Packs/day: 0.50 Years: 20.00 Additional pack years: 0.00 Total pack years: 10.00 Types: Cigarettes Quit date: 11/05/1977 Years since quittin.4 Smokeless tobacco: Never Vaping Use Vaping Use: Never used Substance Use Topics Alcohol use: No Drug use: No ALLERGIES No Known Allergies CURRENT MEDICATIONS Blood Pressure Monitor Take your blood pressure everyday and keep a log cefdinir (OMNICEF) 300 mg capsule Take 300 mg by mouth two times a day. (Patient not taking: Reported on 03/24/2023) aspirin 81 mg cap Take 81 mg by mouth once daily. carvedilol (COREG) 3.125 mg tablet Take 3.125 mg by mouth two times a day with meals. gabapentin (NEURONTIN) 100 mg capsule Take 1 capsule by mouth three times a day for 90 days. (Patient taking differently: Take 100 mg by mouth two times a day.) amitriptyline (ELAVIL) 50 mg tablet take 1 tablet by mouth once daily at bedtime silver sulfADIAZINE (SILVADENE) 1 % cream Apply to affected area once daily. Magnesium Chloride (SLOW-MAG) 71.5 mg TbEC Take 1 tablet by mouth twice daily. pembrolizumab (KEYTRUDA) 25 mg/mL injection Inject 200 mg intravenously every 3 weeks for 16 doses. glimepiride (AMARYL) 4 mg tablet Take 1 tablet by mouth twice daily with meals. lidocaine-prilocaine (EMLA) 2.5-2.5 % cream Apply to affected area as needed. ondansetron (ZOFRAN) 8 mg tablet Take 1 tablet by mouth every 8 hours as needed for nausea/vomiting. (Patient not taking: Reported on 04/02/2023) acetaminophen (TYLENOL EXTRA STRENGTH) 500 mg tablet Take 2 tablets by mouth every 6 hours as needed for pain. atorvastatin (LIPITOR) 40 mg tablet TAKE 1 TABLET BY MOUTH ONCE DAILY AT BEDTIME FOR CHOLESTEROL metFORMIN (GLUCOPHAGE) 500 mg tablet Take 2 tablets by mouth twice daily with meals. . Lancets lancets Test one time daily, Insulin Dep? No E11.9 DM 2 alcohol swabs (ALCOHOL PADS) Test one time daily, Insulin Dep? No E11.9 DM 2 blood sugar diagnostic (BLOOD GLUCOSE TEST) test strip Test one time daily, Insulin Dep? No E11.9 DM 2 dulaglutide (TRULICITY) 3 mg/0.5 mL pen injector Inject 3 mg subcutaneously one time a week. Patient Assistance Medication. REVIEW OF SYSTEMS: GENERAL: Negative for: Weight loss or gain, Fever or Chills, Weakness and Sleep difficulties. HEENT: Negative for: Headache, Impaired Vision, Glasses, Hearing Impairment, Ringing in Ears, Nosebleeds, Poor dental care, Bleeding Gums, Dentures NECK: Negative for: Swelling, Pain, Stiffness RESPIRATORY: Negative for: Cough, Blood in Sputum, Shortness of breath, Wheezing, Apnea GASTROINTESTINAL: Negative for: Trouble swallowing, Heartburn, Change in bowel habits, Blood in stool, Dark black stools MUSCULOSKELETAL: Negative for: Muscle or joint pain, Stiffness , Joint swelling NEUROLOGIC/PSYCHIATRIC: Negative for: Weakness, Paralysis, Numbness, Tingling, Tremor, Nervousness, Depressed mood, Memory loss SKIN: Negative for: Rashes, Itching HEMATOLOGICAL/LYMPHATIC: Negative for: Easy bruising , Easy bleeding ENDOCRINE: Negative for: Heat or cold intolerance, Excessive sweating, Frequent urination, Frequent thirst PHYSICAL EXAMINATION: VIDEO EXAM: (if completed, performed via video enabled technology) No exam performed PATIENT ENTERED QUESTIONNAIRE SCORES ALERT: PHQ-9 Score: 12 indicates Moderate to Severe Depression PHQ-9 04/20/2023 Score 12 PROMIS Global Health - (T-Scores - the mean of general population = 50. Five points is a clinically meaningful difference.) 04/20/2023 04/20/2023 Physical T-Score 34.9 34.9 Mental T-Score 43.5 43.5 ASSESSMENT: NYHA Functional Class: III Stage: C heart failure Target weight: 265lbs BMI 41.5kg/m2 77F with history of Stage IIIC endometrial endometrioid carcinoma with squamous differentiation s/p TASNEEM BSO 07/24/22, Type 2 DM who presents to clinic to establish care. She has diagnosed endometrial cancer, had adjuvant treatment with carboplatin, paclitaxel and pembrolizumab. While at another hospital, noted to have LVEF 45% while on pembrolizumab. It was discontinued due to multiple reasons, neuropathy, reduced LVEF, intolerance. At that time, she was not treated with steroids due to reported hyperglycemia. No evidence of ischemia on MPI. Ziopatch showed rare ectopic beats all < 1.0%. Attempted to start her on GDMT but limited by hypotension so lisinopril was discontinued. She is on low dose coreg. She had 2 UTI's while on jardiance, one of which required hospital admission for urosepsis and lactic acidosis. HFmrEF possible ICM and NICM - Continues to have reduced LVEF 44%, Titration of GDMT limited by dizziness (which could be multifactorial in the setting of neuropathy, medication, deconditioning). Reviewed her case with and , unlikely for pembrolizumab to be the only etiology of her reduced EF and may have ischemic component.. CT chest showed significant coronary calcification. In the setting of her risk factors, uncontrolled DM, elevated BMI, will recommend [facility] for further evaluation. DM type 2 complicated by neuropathy Heart Failure specific medications (list current, note updates or changes, note prior intolerance): BB: Coreg 3.125mg BID ACEI/ARB/ARNI: - MRA: - SGLT2: Stopped jardiance given recurrent UTI x2 in the past 2 months Diuretic: - Digoxin: - Vasodilators: - Anti-arrhythmics: - Ivabradine: - Other anti-HTN: - Others: Aspirin PLAN AND RECOMMENDATIONS: - [facility] ordered. Pt would prefer to have it done in [place] - Send BP readings to determine when ACEi/ARB can be restarted - Continue remainder of medications. Virtual visit in 1 month I personally interviewed, confirmed and edited the above information as obtained by others We discussed natural history of disease, current treatment options, and future potential treatment options. We discussed diet, exercise, other non-medical management as above. Farshad Marie MD [facility] Section Of Heart Failure and Cardiac Transplant Medicine Heart and Vascular [place] [facility] Desk [id number] [place] [address] I personally spent 35 minutes in total time involved in the management and care of this patient. Farshad Marie MD April 20, 2023 8:58 AM Answers submitted by the patient for this visit: Review of Systems Heart Failure (Submitted on 04/20/2023) Fever : No Night sweats: No Recent unintentional weight change: Yes Vision Disturbance: Yes Hearing Loss: No A cough: Yes Difficulty Breathing?: No Chest pain: No Leg Swelling: No Skipping or irregular heartbeats?: No Feel like passing out?: Yes Black tarry stools: No Nausea: Yes Diarrhea: Yes Swelling in your abdomen?: No Fill up quickly when you eat?: No Difficulty Urinating?: No Joint pain or stiffness: Yes Muscle aches: Yes A rash: No Dizziness: Yes Headaches: Yes documented in this encounter [facility] 04-19-2023 Miscellaneous Notes Pharmacy verified in [facility] Patient has been identified by name and date of : Yes Patient aware RX will be sent to pharmacy. No need to notify patient. Patient phones for refill(s): Requested Prescriptions Refused Prescriptions Disp Refills metFORMIN (GLUCOPHAGE) 500 mg tablet [Pharmacy Med Name: metFORMIN HCl 500 MG Oral Tablet] 360 tablet 0 Sig: take 2 tablets by mouth twice daily with meals Refused By: CYDNEY REAGAN Reason for Refusal: Patient should contact Prescriber first Date of last office visit : 03/24/2023 Date of next office visit : 04/23/2023 Last 2 Encounter Wt Readings: Date: Wt: 04/02/2023 120.2 kg (265 lb) 03/24/2023 120.7 kg (266 lb) Not applicable Please advise. Sheridan Chan Pss documented in this encounter [facility] 04-13-2023 History of Present illness Narrative Noted Vinh Van MD TRANSITION CARE MANAGEMENT (TCM) INITIAL CONTACT Suppression Crew Leader Outreach Provider Action/FYI: 14 Day TCM Pt feeling well. She has not had any further issues with syncope, light headedness, or dizziness. Initial contact with patient post discharge, spoke to patient on 04/13/23. Patient identified by name and . TRANSITION CARE MANAGEMENT INITIAL OUTREACH DOCUMENTATION: Date of Outreach: 04/13/2023 Outreach Attempt 1: Contact Made Date of Discharge 04/12/2023 Some recent data might be hidden SUMMARY: -Pt discharged from [facility] on 04/12/23. -Admitted for: 1) Hypotension (arterial) chronic 2) Acute Kidney Injury 3) nonischemic cardiomyopathy Do you have a hospital follow up appointment with your PCP? Appointment on 04/23/[address] Van. Yes. Remind patient of appointment date, time, and location. If not within 14 calendar days of discharge - please reschedule accordingly. MEDICATIONS: Many patients have questions or concerns about their medications once they are home. Were you prescribed any new medications? No Were you told to hold any medications? No Were any of your medications discontinued? No Do you have any questions about getting or taking your medications? No Your discharge instructions/After visit Summary (AVS) are important in guiding you through the recovery process. Is there anything I might help you understand? No Do you have all the necessary equipment and supplies at home? Yes Medical records from recent hospitalization: Placed for provider to review documented in this encounter [facility] 04-11-2023 Progress note Note Date/Time April 11, 2023 3:46pm [facility] Medical Records Department [address] [place] [address] Progress Note - Hospitalist 04/11/23 1546 MR#: [id number] Acct: [id number] Name: PRICILA HOOKER Rep #:[id number] : 1945 77 From: Ramy jin DO PCP: Dr. Vinh Van MD Status:AD M DIONE Location: [place] [address] Reason for Visit Reason for Visit: Diagnoses Hypotension, unspecified (04/10/23) Acute kidney failure, unspecified (04/10/23) Subjective Subjective Patient admitted yesterday evening for hypotension and presyncopal symptoms at home. Patient seen at bedside this morning. Patient was sitting up comfortablyin bed, conversing normally, no acute distress. Patient states this morning that she feels significantly improved at rest from yesterday after receiving IV fluids. She had not gotten out of bed yet this morning. She denied any pain ordiscomfort this morning. Denied any fevers or chills. No other acute concerns at this time. Objective Data Objective Data Vital Signs: Vital Signs Temp Pulse Resp BP Pulse Ox O2 Del Method O2 Flow Rate 98.1 F 96 16 135/62 H 95 Nasal Cannula 2 04/11/23 10:10 04/11/23 10:10 04/11/23 10:10 04/11/23 10:10 04/11/23 10:10 04/11/23 10:10 04/11/23 10:10 Oxygen Flow Rate (L/min) 2 Oxygen Delivery Method Nasal Cannula Weight: 121.4 kg Body Mass Index (BMI) 41.9 Intake & Output: Intake and Output for Last 24 Hours 04/09/23 04/10/23 04/11/23 23:59 23:59 23:59 Intake Total 1999 1375 / 1375 Balance 1999 1375 / 1375 Lab / Micro Data 04/11/23 06:37 04/11/23 06:37 Labs: Laboratory Results - last 24 hr 04/10/23 16:40: WBC 5.5, RBC 3.35 L, Hgb 10.0 L, Hct 31.8 L, MCV 94.9, MCH 29.9,MCHC 31.4 L, RDW Std Deviation 51.3 H, RDW Coeff of Casper 14.8 H, Plt Count 158, MPV 10.2, Immature Gran % (Auto) 0.200, Neut % (Auto) 72.1 H, Lymph % (Auto) 13.2 L, [place] % (Auto) 14.1 H, Eos % (Auto) 0.2, Baso % (Auto) 0.2, Absolute Neuts (auto) 3.9, Absolute Lymphs (auto) 0.72 L, Nucleated RBC % 0, PT 14.7, INR1.1, APTT 33.5, Sodium 135 L, Potassium 4.0, Chloride 100, Carbon Dioxide 28.0, Anion Gap 7, BUN 22 H, Creatinine 1.48 H, Est GFR (MDRD) Af Amer 44 L, Est GFR (MDRD) Non-Af 36 L, BUN/Creatinine Ratio 14.9, Glucose 173 H, Lactic Acid 3.3 H*, Calcium 9.1, Phosphorus 3.7, Magnesium 1.7, Total Bilirubin 0.40, AST 63 H, ALT 40, Alkaline Phosphatase 65, Troponin I High Sens 20, Total Protein 6.9, Albumin 3.2, Globulin 3.7, Albumin/Globulin Ratio 0.9 04/10/23 17:54: Urine Color Yellow, Urine Clarity Cloudy, Urine pH 5.0, Ur Specific [place] 1.020, Urine Protein 100 H, Urine Glucose (UA) Normal, Urine Ketones 5 H, Urine Occult Blood 50 H, Urine Nitrite Negative, Urine Bilirubin 1 H, Urine Urobilinogen Normal, Ur Leukocyte Esterase 500 H, Urine RBC 0-5 SEEN, Urine WBC 25-50 SEEN, Ur Squamous Epith Cells 5-10 SEEN, Ur Renal Epithelial Cell 5-10 SEEN, Urine Bacteria 1+, Hyaline Casts 0-5 SEEN, Urine Mucus 0 SEEN 04/10/23 21:20: Lactic Acid 1.8 04/11/23 00:46: POC Glucose 62 L 04/11/23 06:37: WBC 3.7 L, RBC 3.06 L, Hgb 9.2 L, Hct 29.0 L, MCV 94.8, MCH 30.1, MCHC 31.7 L, RDW Std Deviation 51.7 H, RDW Coeff of [place] 14.9 H, Plt Count 146 L, MPV 9.9, Immature Gran % (Auto) 0.300, Neut % (Auto) 55.0, Lymph % (Auto)25.5, [place] % (Auto) 18.2 H, Eos % (Auto) 0.5, Baso % (Auto) 0.5, Absolute Neuts (auto) 2.1, Absolute Lymphs (auto) 0.95, Nucleated RBC % 0, Sodium 139, Potassium 3.8, Chloride 107, Carbon Dioxide 27.0, Anion Gap 5, BUN 22 H, Creatinine 1.06 H, Estim Creat Clear Calc 60.01, Est GFR (MDRD) Af Amer 65, Est GFR (MDRD) Non-Af 53 L, BUN/Creatinine Ratio 20.8 H, Glucose 66 L, Calcium 8.2 L, TSH 0.45 04/11/23 08:11: POC Glucose 56 L 04/11/23 10:21: POC Glucose 104 Micro: Microbiology 04/10/23 17:54 Urine, Clean Catch Urine Culture - Preliminary GNR lactose feed handler 04/10/23 16:44 Mucosa - Nose SARS-CoV-2, Influenza & RSV (PCR) - Final Radiography Diagnostic Testing: Radiology Impression Brain CT 04/10/23 16:00 IMPRESSION: Chronic involutional changes of the brain. No acute abnormality. Electronically Signed: Emil Winston MD at 17:13 EST , Chest X-Ray 04/10/23 17:01 IMPRESSION: No definite acute or significant abnormality seen. Electronically Signed: Emil Winston MD at 17:17 EST , Physical Exam Const alert, oriented x3 and no apparent distress Constitutional Narrative: Pleasant elderly female, morbidly obese, sitting up comfortably in bed, conversing normally, no acute distress. General Appearance: cooperative and comfortable HEENT normocephalic, head/scalp atraumatic, hearing grossly normal bilaterally, nasal mucous membranes and turbinates normal and moist oral mucous membranes Eyes PERRL, EOMs intact bilaterally and conjunctivae normal Neck full ROM, no lymphadenopathy and supple Lymph Lymphatic: no lymphadenopathy noted Chest inspection of chest normal Resp normal respiratory effort, normal air movement, no use of accessory muscles and clear to auscultation bilaterally Cardio regular rate, regular rhythm, no murmurs and peripheral pulses 2+ throughout GI normal to inspection, nondistended, normoactive bowel sounds, soft to palpation,non-tender and non-distended Back/Spine normal ROM Extremity normal to inspection, full ROM and no pedal edema Skin no rashes or lesions noted Neuro no focal motor deficits and no sensory deficits noted Speech: speech normal Psych mental status grossly normal Assessment & Plan Assessment/Plan (1) Hypotension (arterial): (2) Acute kidney injury: (3) Nonischemic cardiomyopathy: PLAN: Plan Patient is a 77-year-old female who presented to [facility] ED on 04/10/2023 with hypotension and presyncopal symptoms. 1. Hypotension with presyncopal symptoms, improving Unclear etiology. Likely had some degree of volume depletion given improvement after IV fluid resuscitation. Mild HFrEF may have been contributing. BP 98/56,heart rate 117 on admit with JACY as noted below. Chest x-ray nonacute. UA noninfectious. S/p 2 L IV fluids on admit with improvement. 2. JACY on CKD stage III, resolved ? Creatinine 1.48 on admit, baseline creatinine 1.0-1.1. Creatinine improved to1.06 on hospital day 2 after IV fluids. Adequate urine output. Resolved. 3. 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 Recent TTE at [facility] on 04/02/2023 showed EF 45%, mildly decreased LV systolic function, mild concentric LV hypertrophy, no significant valve abnormalities. Had been started on losartan and Jardiance recently but these were discontinued due to hypotension. 4. Endometrial cancer stage IIIc with recent treatment ? Follows with Dr. Branham. S/p hysterectomy, completed chemotherapy in January 2023 with carboplatin, paclitaxel and pembrolizumab. Completed radiation therapy in March 2023. Continue outpatient follow-up as previously scheduled. 5. Mild debility ? PT/OT/case management following. Likely either home with home health care or home with outpatient physical therapy on discharge. Chronic medical conditions: ? Type 2 diabetes mellitus with neuropathy: Home regimen of metformin 1000 g twice daily, glimepiride 4 mg twice daily, Trulicity. BG 173 on admit. Okay for sliding-scale insulin while inpatient, adjust as needed. A1c pending. Continue home gabapentin. ? Morbid obesity: BMI 41.9 on admit. Complicates hospital course, care and prognosis. ? CAD, hyperlipidemia, hypertension: Continue home aspirin, statin. Home losartan and Jardiance recently discontinued as noted above. ? Mood disorder: Continue home amitriptyline. ? Chronic normocytic anemia: Hemoglobin 10.0 on admit, decreased to 9.2 after IVfluid resuscitation. Baseline hemoglobin 9-10, stable. DVT prophylaxis: Lovenox twice daily CODE STATUS: Full code, verified Expected disposition: Home, 1 to 2 days Total clinical time spent by myself addressing the patient's medical issues, reviewing all the data, and collaborating with patient's care team: 35 minutes. Charges/Coding Visit Charges Inpatient E&M: 74603 Subs Hosp L2 04/11/23 1713 <Electronically signed by Ramy Anglin DO> Cosigner Signature (if applicable): CC: ~ Signed [facility] Work Phone: [phone] 792-119302-11-2024 History and physical note Author Syed Muñiz [facility] April 10, 2023 11:47pm Note Date/Time April 10, 2023 9:54pm [facility] Medical Records Department [address] [place] [address] H&P Exam - Hospitalist 04/10/23 2152 MR#: [id number] Acct: [id number] Name: PRICILA HOOKER Rep #:[id number] : 1945 77 From: Syed Bolanos PCP: Dr. Vinh Van MD Status:STEVO Beth DIONE Location: [place] [address] HPI - General General Date of Admission: 04/10/23 Date of Service: 04/10/23 Chief Complaint: Dizziness and lightheadedness and fell [place] [employer] on 04/10/2023. Hypotension 79/50 at home. HPI Narrative PRICILA HOOKER, is a 77 F with multiple comorbidities came to ED with dizziness and hypotension. Apparently patient tried to go to bed around 2:30 AM today sheprobably felt dizzy and lightheaded and fell down. She does not remember how she fell down and also unsure whether she had syncope but eventually she had it might have been very transient SGL to get help from the family members who are on the second floor of the house. She denies being vertigo. No nausea or vomiting. Recently, her oncologist Dr. Nora Branham sent her to [facility] to evaluate for arrhythmia but and saw carrier associate there who did EKG and was told that she does not have A-fib. Cardiology stopped her lisinopril and Jardiance. She has c/o very and has Mediport on the left subclavicular region. She had last radiation in March this year and chemotherapy probably DecemberJanuary 2023. She is not sure whether she hit her head but she does not have any major injury or pain. Denies headache or neck pain visual complaints slurred speech. Currently she is back on baseline. Denies chest pain or pressure or tightness. In ED, initial vitals shows blood pressure 98/56, heart rate 117 but later vitals improved and BP normal 130/74 and heart rate 90/min. Chest x-ray and CT head was done does not show acute significant abnormality. Patient is further admitted. [facility] Medical History Benign neoplasm of colon Chest pain Cholecystitis CKD (chronic kidney disease) stage 3, GFR 30-59 ml/min Coronary artery disease Diabetes Dyslipidemia Endometrial cancer Endometrial cancer, FIGO stage IIIC Former smoker GERD (gastroesophageal reflux disease) History of cancer of uterus Hypercholesteremia Hypertension Hypomagnesemia Neuropathy Nonischemic cardiomyopathy Obesity Pancytopenia Home Medications metformin 500 mg tablet 2 tab PO BID DIABETES #120 tabs 05/06/20 [Rx Last Taken 03/10/23] amitriptyline 50 mg tablet 50 mg PO QHS DEPRESSION 12/23/22 [History Last Taken 03/09/23] atorvastatin 40 mg tablet 40 mg PO QHS CHOLESTEROL 12/23/22 [History Last Taken 03/09/23] dulaglutide 3 mg/0.5 mL subcutaneous pen injector (Trulicity) 3 mg subcut TU DIABETES 12/23/22 [History Last Taken 03/09/23] gabapentin 100 mg capsule 100 mg PO TID NERVE PAIN 12/23/22 [History Last Taken 03/10/23] empagliflozin 10 mg tablet (Jardiance) 10 mg PO DAILY DIABETES #30 tabs 12/29/22 [Rx Last Taken 03/10/23] magnesium chloride 71.5 mg (magnesium chloride) tablet,delayed release (Slow- Mag) 71.5 mg PO BID SUPPLEMENT 12/29/22 [History Last Taken 03/10/23] ondansetron HCl 8 mg tablet 8 mg PO Q12H PRN NAUSEA 12/29/22 [History Last Taken Unknown] aspirin 81 mg tablet,delayed release (Adult Low Dose Aspirin) 81 mg PO DAILY HEART HEALTH 01/24/23 [History Last Taken 03/10/23] acetaminophen 500 mg tablet (Acetaminophen Extra Strength) 500 mg PO Q6H PRN PAIN 03/10/23 [History Last Taken Unknown] glimepiride 4 mg tablet 4 mg PO BID DIABETES 03/10/23 [History Last Taken 03/10/23] silver sulfadiazine 1 % topical cream 1 applic topical DAILY PRN BURN 03/10/23 [History Last Taken 03/10/23] cefdinir 300 mg capsule 300 mg PO BID #14 caps 03/12/23 [Rx Last Taken Unknown] Allergy/AdvReac Type Severity Reaction Status Date / Time No Known Allergies Allergy Verified 04/10/23 14:40 Family History Father Myocardial infarction Mother Heart disease irregular heart rate Colon cancer Surgical History History of cholecystectomy History of total left knee replacement (TKR) (~01/2011) History of total right knee replacement (TKR) (~05/11/11) Hx laparoscopic cholecystectomy Hx of cataract surgery Hx of hysterectomy, total Social History household members: none Smoking Status: Former smoker how long ago did patient quit smokin alcohol intake: never substance use type: does not use ROS ROS Narrative Constitutional: Reports fatigue and weakness. Fall. No fever. HEENT: Denies recent URI symptoms. Reports systems reviewed and no addt'l complaints, except as documented Respiratory/Chest: No acute shortness of breath or respiratory distress or wheezing. CVS: No chest pain pressure or tightness. Denies missed or extra heartbeat. Gastrointestinal: Denies coffee ground emesis, hematemesis or vomiting. No abdominal pain Genitourinary: Denies burning urination or new urinary tract symptoms Musculoskeletal: Denies acute joint pain or limited range of motion. No acute injury Neurologic: Denies seizure-like symptoms. skin: No ulcer. No rash Endocrinology: Reports systems reviewed and no addt'l complaints, except as documented Hematologic/Lymphatic: Reports systems reviewed and no addt'l complaints, exceptas documented Rest 14 ROS are negative except as mentioned in HPI Vital Signs Vital Signs Vital Signs: 04/10/23 14:41 04/10/23 15:34 04/10/23 14:43 Temperature 99 F Temperature Source Temporal Pulse Rate 117 H Respiratory Rate 16 Respiratory Pattern Normal Blood Pressure 108/56 L Blood Pressure Mean 73 Pulse Ox 92 Oxygen Delivery Method Room Air Room Air Oxygen Flow Rate (L/min) 04/10/23 16:48 04/10/23 16:50 04/10/23 17:08 Temperature Temperature Source Pulse Rate 99 103 H 100 Respiratory Rate 21 H 13 22 H Respiratory Pattern Blood Pressure Blood Pressure Mean Pulse Ox 88 91 93 Oxygen Delivery Method Oxygen Flow Rate (L/min) 04/10/23 17:10 04/10/23 17:15 04/10/23 17:20 Temperature Temperature Source Pulse Rate 99 99 97 Respiratory Rate 28 H 25 H 15 Respiratory Pattern Blood Pressure 123/73 H Blood Pressure Mean 87 Pulse Ox 93 87 90 Oxygen Delivery Method Oxygen Flow Rate (L/min) 04/10/23 17:30 04/10/23 17:48 04/10/23 17:50 Temperature Temperature Source Pulse Rate 98 109 H 102 H Respiratory Rate 22 H 19 H 16 Respiratory Pattern Blood Pressure 142/81 H Blood Pressure Mean 99 Pulse Ox 97 84 Oxygen Delivery Method Oxygen Flow Rate (L/min) 04/10/23 18:00 04/10/23 18:10 04/10/23 18:15 Temperature Temperature Source Pulse Rate 95 94 94 Respiratory Rate 25 H 25 H 26 H Respiratory Pattern Blood Pressure 120/66 126/63 H Blood Pressure Mean 81 82 Pulse Ox 97 98 98 Oxygen Delivery Method Oxygen Flow Rate (L/min) 04/10/23 19:31 04/10/23 21:08 04/10/23 21:23 Temperature Temperature Source Pulse Rate 93 94 Respiratory Rate 24 H 21 H Respiratory Pattern Blood Pressure 121/58 H 141/73 H Blood Pressure Mean 79 95 Pulse Ox 97 95 91 Oxygen Delivery Method Nasal Cannula Room Air Room Air Oxygen Flow Rate (L/min) 2 Weight Weight: 264 lb 12.403 oz Body Mass Index (BMI) 41.5 Physical Exam Narrative General: Alert, Oriented x3, Cooperative HEENT: Atraumatic, PERRLA, EOMI, Normocephalic Oral: Oral mucosa dry. No Gingival or Mucosal Lesions/ Ulcerations Neck: Supple, No JVD, Negative Carotid Bruits Chest wall/Lungs: Mediport over left upper chest. Air entry diminished in bilateral lung bases. No crepitation/rhonchi Cardiovascular: Regular rate, Regular Rhythm, Normal S1, Normal S2, No M/G/R Abdomen: Bowel Sounds Present, Soft, Non Tender, Non-Distended. No palpable ascites. : No dysuria. No renal angle tenderness. No suprapubic tenderness. Extremities: No edema, Capillary Refill Less than 3 Seconds Skin: No rashes, No breakdown Musculoskeletal: No Tenderness to Palpation of Joints or Extremities. ROM full. Degenerative arthritis of knees. Neurological: Cranial nerves II-XII grossly intact, DTR 2+/4. No acute focal neurological deficit. Psych/Mental Status: Normal Affect, Appropriate. Results Lab / Micro Data 04/10/23 16:40 04/10/23 16:40 Labs: Laboratory Results - last 24 hr 04/10/23 16:40: WBC 5.5, RBC 3.35 L, Hgb 10.0 L, Hct 31.8 L, MCV 94.9, MCH 29.9,MCHC 31.4 L, RDW Std Deviation 51.3 H, RDW Coeff of [place] 14.8 H, Plt Count 158, MPV 10.2, Immature Gran % (Auto) 0.200, Neut % (Auto) 72.1 H, Lymph % (Auto) 13.2 L, [place] % (Auto) 14.1 H, Eos % (Auto) 0.2, Baso % (Auto) 0.2, Absolute Neuts (auto) 3.9, Absolute Lymphs (auto) 0.72 L, Nucleated RBC % 0, PT 14.7, INR1.1, APTT 33.5, Sodium 135 L, Potassium 4.0, Chloride 100, Carbon Dioxide 28.0, Anion Gap 7, BUN 22 H, Creatinine 1.48 H, Est GFR (MDRD) Af Amer 44 L, Est GFR (MDRD) Non-Af 36 L, BUN/Creatinine Ratio 14.9, Glucose 173 H, Lactic Acid 3.3 H*, Calcium 9.1, Total Bilirubin 0.40, AST 63 H, ALT 40, Alkaline Phosphatase 65, Troponin I High Sens 20, Total Protein 6.9, Albumin 3.2, Globulin 3.7, Albumin/Globulin Ratio 0.9 04/10/23 17:54: Urine Color Yellow, Urine Clarity Cloudy, Urine pH 5.0, Ur Specific [place] 1.020, Urine Protein 100 H, Urine Glucose (UA) Normal, Urine Ketones 5 H, Urine Occult Blood 50 H, Urine Nitrite Negative, Urine Bilirubin 1 H, Urine Urobilinogen Normal, Ur Leukocyte Esterase 500 H, Urine RBC 0-5 SEEN, Urine WBC 25-50 SEEN, Ur Squamous Epith Cells 5-10 SEEN, Ur Renal Epithelial Cell 5-10 SEEN, Urine Bacteria 1+, Hyaline Casts 0-5 SEEN, Urine Mucus 0 SEEN Micro: Microbiology 04/10/23 16:44 Mucosa - Nose SARS-CoV-2, Influenza & RSV (PCR) - Final Imaging Radiology Impression Brain CT 04/10/23 16:00 IMPRESSION: Chronic involutional changes of the brain. No acute abnormality. Electronically Signed: Emil Winston MD at 17:13 EST , Chest X-Ray 04/10/23 17:01 IMPRESSION: No definite acute or significant abnormality seen. Electronically Signed: Emil Winston MD at 17:17 EST , Assessment & Plan Assessment/Plan (1) Hypotension (arterial): (2) Acute kidney injury: PLAN: Plan This 77-year-old female admitted for further evaluation of hypotension, fall andpossible syncope 1. Hypotension at home, fall and possible syncope with chronic mild HFrEF/nonischemic cardiomyopathy probably following chemotherapy: Patient is being admitted to PCU. There was no witnessed fall therefore syncope is unclear what she had syncope about a year ago. Patient blood pressure is in normal range although was low when she came to the ED. Continue IV fluid. She recently had echo on April 2023 as mentioned below which shows mild decreased EF 45 as compared to previous echo of April 2020. Orthostatic blood pressure tomorrow AM. She was told to discontinue losartan and Jardiance and recent [facility] carrier associate visit in April 2023. 2. JACY, etiology unclear possible prerenal or due to medications with baseline CKD stage IIIa: She denies acute loss of fluid including vomiting or diarrhea but clinically she looks dehydrated. IV fluid normal saline ordered. Monitor kidney function and electrolytes. Lactic acid elevated 3.3 but repeat one normal. I do not suspect any infection based on the clinical history and exam. UA shows LE 500, WBC 25-50 cells, epithelial 5-10 cells. I do not think antibiotic is indicated but blood cultures x 2 and urine culture is ordered fromED. She was recently admitted in March 2023 for sepsis due to acute cystitis. 3. Diabetes mellitus type 2: Accu-Cheks before meals and at bedtime coverage with Humalog sliding scale. Hold oral hypoglycemic agents. Glucose in BMP is 173. 4. Morbid obesity: BMI 41.5 kg/m?. Weight loss counseling done. Computer Hardware Designer consult. 5. Hypertension: She was hypotensive at home BP 79/59. Currently normotensive. Hold antihypertensive medications. 6. Dyslipidemia: On statin therapy continued. 7. Endometrial cancer stage IIIc: She had a hysterectomy and chemotherapy whichshe completed December/January 2023, carboplatin paclitaxel and pembrolizumab. Patient completed radiation in March 2023. She follows Dr. Nora Branham. 8. Anemia, normocytic normochromic of chronic disease: H&H 10.0/31.8%. Platelet count normal 158,000. Normal WBC count. 9. VTE prophylaxis: Enoxaparin 40 mgl subcu daily. Discontinue if platelet count drops less than 50,000 or hemoglobin less than 8 g% Living will/advanced directive/end of life care: Patient does not have living will or advanced directive. Her sister is next of kin. After discussion of benefits/risks procedures involved with full code, DNR CC arrest and DNR CC, the patient opted for full code. Patient does want artificial life support including intubation, tube feed, ventilator and/chest compression, central venous catheter, vasopressor and DC shock if needed Total time spent in [id number] encounter in discussion of advanced directive 17 minutes. Microbiology Past 72 Hours 04/10/23 16:44 Mucosa - Nose SARS-CoV-2, Influenza & RSV (PCR) - Final Laboratory Results 04/10/23 16:40: WBC 5.5, RBC 3.35 L, Hgb 10.0 L, Hct 31.8 L, MCV 94.9, MCH 29.9,MCHC 31.4 L, RDW Std Deviation 51.3 H, RDW Coeff of [place] 14.8 H, Plt Count 158, MPV 10.2, Immature Gran % (Auto) 0.200, Neut % (Auto) 72.1 H, Lymph % (Auto) 13.2 L, [place] % (Auto) 14.1 H, Eos % (Auto) 0.2, Baso % (Auto) 0.2, Absolute Neuts (auto) 3.9, Absolute Lymphs (auto) 0.72 L, Nucleated RBC % 0, PT 14.7, INR1.1, APTT 33.5, Sodium 135 L, Potassium 4.0, Chloride 100, Carbon Dioxide 28.0, Anion Gap 7, BUN 22 H, Creatinine 1.48 H, Est GFR (MDRD) Af Amer 44 L, Est GFR (MDRD) Non-Af 36 L, BUN/Creatinine Ratio 14.9, Glucose 173 H, Lactic Acid 3.3 H*, Calcium 9.1,Phosphorus 3.7, Magnesium 1.7, Total Bilirubin 0.40, AST 63 H, ALT 40, Alkaline Phosphatase 65, Troponin I High Sens 20, Total Protein 6.9, Albumin 3.2, Globulin 3.7, Albumin/Globulin Ratio 0.9 04/10/23 17:54: Urine Color Yellow, Urine Clarity Cloudy, Urine pH 5.0, Ur Specific [place] 1.020, Urine Protein 100 H, Urine Glucose (UA) Normal, Urine Ketones 5 H, Urine Occult Blood 50 H, Urine Nitrite Negative, Urine Bilirubin 1 H, Urine Urobilinogen Normal, Ur Leukocyte Esterase 500 H, Urine RBC 0-5 SEEN, Urine WBC 25-50 SEEN, Ur Squamous Epith Cells 5-10 SEEN, Ur Renal Epithelial Cell 5-10 SEEN, Urine Bacteria 1+, Hyaline Casts 0-5 SEEN, Urine Mucus 0 SEEN 04/10/23 21:20: Lactic Acid 1.8 Patient had echo in 04-02-23 in [facility]. Reported EF 45%, LV systolic function mildly decreased. Mild concentric LVH. RV size and systolic function normal. No significant valvular dysfunction except trace MR. No evidence of intracardiac shunting or pleural effusion. Patient previous echo in April 2020 showed EF 60% with stage I diastolic dysfunction. Charges/Coding Visit Charges Inpatient E&M: 88259 Init Hosp Procedures Hospitalists Procedures: 29624 Advncd Care Plan 30 Min 04/10/23 1167 <Electronically signed by Syed Muñiz MD> Cosigner Signature (if applicable): CC: Dr. Vinh Van MD; Dr. Syed Muñiz MD~ Signed [facility] Work Phone: [phone] 601-819502-11-2024 Discharge summary Author Tadeo Hutchinson [facility] April 10, 2023 10:07pm Note Date/Time April 10, 2023 4:00pm [facility] Medical Records Department [address] [place] [id number] Emergency Department Summary 04/10/23 MR#: [id number] Acct: [id number] Name: PRICILA HOOKER Rep #:[id number] : 1945 77 From: Tadeo Hutchinson DO PCP: Dr. Vinh Van MD Status:RE G ER Location: ED HPI History of Present Illness Chief Complaint: Dizziness Narrative Narrative: 77-year-old female with history of endometrial cancer status post radiation therapy, status post chemotherapy. Patient sees Dr. Branham. Patient has longstanding history of hypotension/lightheadedness. It suspected this is due to postradiation therapy also her medications have been adjusted. She stopped her lisinopril. Her Jardiance has been held. Patient sees specialist now at [facility] who has stopped these medications. Patient states that last night she was walking from the bathroom with her walker which is baseline and when she got to the bed she felt lightheaded and went down. Patient states thiswas about 2 AM. Patient states that she was able to call out and her daughter came in at about 3 AM. Patient is unsure if she hit her head or loss conscious but does not have any headache, slurred speech, visual complaints, head or neck pain. Patient states that she was helped into bed and this morning she was checking her blood pressures with a new blood pressure monitor and her sister states that her blood pressures were in the 70s systolic. Her blood pressure was checked 3 times. Patient currently does not have any lightheadedness. She denies any fever, chills, cough. Denies chest pain or shortness of breath. Sister states she is just getting over a cold and the patient is self states sheis not feeling like she has a cold. Patient has not had nausea or vomiting. She states she does not have urinary frequency but when she does urinate she hasa long void. She states she drinks about 3 to 4 quarts of water a day. Denies dysuria or hematuria. Patient states he was recently admitted for similar symptoms and it was considered to be UTI which caused the hypotension. [facility] Medical History Benign neoplasm of colon Chest pain Cholecystitis CKD (chronic kidney disease) stage 3, GFR 30-59 ml/min Coronary artery disease Diabetes Dyslipidemia Endometrial cancer Endometrial cancer, FIGO stage IIIC Former smoker GERD (gastroesophageal reflux disease) History of cancer of uterus Hypercholesteremia Hypertension Hypomagnesemia Neuropathy Nonischemic cardiomyopathy Obesity Pancytopenia Home Medications metformin 500 mg tablet 2 tab PO BID DIABETES #120 tabs 05/06/20 [Rx Last Taken 03/10/23] amitriptyline 50 mg tablet 50 mg PO QHS DEPRESSION 12/23/22 [History Last Taken 03/09/23] atorvastatin 40 mg tablet 40 mg PO QHS CHOLESTEROL 12/23/22 [History Last Taken 03/09/23] dulaglutide 3 mg/0.5 mL subcutaneous pen injector (Trulicity) 3 mg subcut TU DIABETES 12/23/22 [History Last Taken 03/09/23] gabapentin 100 mg capsule 100 mg PO TID NERVE PAIN 12/23/22 [History Last Taken 03/10/23] empagliflozin 10 mg tablet (Jardiance) 10 mg PO DAILY DIABETES #30 tabs 12/29/22 [Rx Last Taken 03/10/23] magnesium chloride 71.5 mg (magnesium chloride) tablet,delayed release (Slow- Mag) 71.5 mg PO BID SUPPLEMENT 12/29/22 [History Last Taken 03/10/23] ondansetron HCl 8 mg tablet 8 mg PO Q12H PRN NAUSEA 12/29/22 [History Last Taken Unknown] aspirin 81 mg tablet,delayed release (Adult Low Dose Aspirin) 81 mg PO DAILY HEART HEALTH 01/24/23 [History Last Taken 03/10/23] acetaminophen 500 mg tablet (Acetaminophen Extra Strength) 500 mg PO Q6H PRN PAIN 03/10/23 [History Last Taken Unknown] glimepiride 4 mg tablet 4 mg PO BID DIABETES 03/10/23 [History Last Taken 03/10/23] silver sulfadiazine 1 % topical cream 1 applic topical DAILY PRN BURN 03/10/23 [History Last Taken 03/10/23] cefdinir 300 mg capsule 300 mg PO BID #14 caps 03/12/23 [Rx Last Taken Unknown] Allergy/AdvReac Type Severity Reaction Status Date / Time No Known Allergies Allergy Verified 04/10/23 14:40 Family History Father Myocardial infarction Mother Heart disease irregular heart rate Colon cancer Surgical History History of cholecystectomy History of total left knee replacement (TKR) (~01/2011) History of total right knee replacement (TKR) (~05/11/11) Hx laparoscopic cholecystectomy Hx of cataract surgery Hx of hysterectomy, total Social History household members: none Smoking Status: Former smoker how long ago did patient quit smokin alcohol intake: never substance use type: does not use ROS ROS ED Constitutional Constitutional ED: Denies chills, fever(s) or sweats Eyes Eyes: Denies blurry vision or change in vision ENT ENT ED: Denies ear pain or sore throat Cardiovascular Cardiovascular: Reports other Details: Lightheadedness ; Denies chest pain, palpitations or racing heartbeat Respiratory/Chest Respiratory/Chest: Denies cough, dyspnea or sputum Gastrointestinal Gastrointestinal: Denies abdominal pain, constipation, diarrhea, nausea or vomiting Genitourinary Genitourinary ED: Denies dysuria, hematuria or urinary frequency Musculoskeletal Musculoskeletal: Denies arthralgias, myalgias or neck pain Integumentary Denies abscess, Abrasions or rash Neurologic Neurologic: Denies headache(s), paresthesias or weakness Psychiatric Psychiatric: Denies anxiety, depression, suicidal ideation or suicidal thoughts Endocrine Endocrinology: Denies polydipsia or polyuria EXAM Physical Exam Const Vital Signs: 04/10/23 14:41 04/10/23 15:34 04/10/23 14:43 Temperature 99 F Temperature Source Temporal Pulse Rate 117 H Respiratory Rate 16 Respiratory Pattern Normal Blood Pressure 108/56 L Blood Pressure Mean 73 Pulse Ox 92 Oxygen Delivery Method Room Air Room Air Oxygen Flow Rate (L/min) 04/10/23 16:48 04/10/23 16:50 04/10/23 17:08 Temperature Temperature Source Pulse Rate 99 103 H 100 Respiratory Rate 21 H 13 22 H Respiratory Pattern Blood Pressure Blood Pressure Mean Pulse Ox 88 91 93 Oxygen Delivery Method Oxygen Flow Rate (L/min) 04/10/23 17:10 04/10/23 17:15 04/10/23 17:20 Temperature Temperature Source Pulse Rate 99 99 97 Respiratory Rate 28 H 25 H 15 Respiratory Pattern Blood Pressure 123/73 H Blood Pressure Mean 87 Pulse Ox 93 87 90 Oxygen Delivery Method Oxygen Flow Rate (L/min) 04/10/23 17:30 04/10/23 17:48 04/10/23 17:50 Temperature Temperature Source Pulse Rate 98 109 H 102 H Respiratory Rate 22 H 19 H 16 Respiratory Pattern Blood Pressure 142/81 H Blood Pressure Mean 99 Pulse Ox 97 84 Oxygen Delivery Method Oxygen Flow Rate (L/min) 04/10/23 18:00 04/10/23 18:10 04/10/23 18:15 Temperature Temperature Source Pulse Rate 95 94 94 Respiratory Rate 25 H 25 H 26 H Respiratory Pattern Blood Pressure 120/66 126/63 H Blood Pressure Mean 81 82 Pulse Ox 97 98 98 Oxygen Delivery Method Oxygen Flow Rate (L/min) 04/10/23 19:31 04/10/23 21:08 04/10/23 21:23 Temperature Temperature Source Pulse Rate 93 94 Respiratory Rate 24 H 21 H Respiratory Pattern Blood Pressure 121/58 H 141/73 H Blood Pressure Mean 79 95 Pulse Ox 97 95 91 Oxygen Delivery Method Nasal Cannula Room Air Room Air Oxygen Flow Rate (L/min) 2 04/10/23 22:02 04/10/23 22:03 04/10/23 22:03 Temperature 97.2 F L Temperature Source Temporal Pulse Rate 90 90 Respiratory Rate 22 H 22 H Respiratory Pattern Blood Pressure 134/74 H 134/74 H Blood Pressure Mean 94 94 Pulse Ox 97 97 97 Oxygen Delivery Method Nasal Cannula Nasal Cannula Oxygen Flow Rate (L/min) 2 2 Positive well nourished General Appearance ED: NAD; Negative for pallor HEENT Reports moist mucous membranes Eyes PERRL and EOMs intact bilaterally Chest Wall inspection of chest normal Resp normal respiratory effort and clear to auscultation bilaterally Auscultation: Negative for rales, rhonchi or wheezes Cardio regular rate and regular rhythm GI normal to inspection, nondistended, normoactive bowel sounds Extremity normal to inspection Neuro oriented x3 and CN's II-XII intact bilaterally Sensorium / Orientation: alert Motor Exam: strength 5/5 throughout Psych mental status grossly normal Skin no rashes or lesions noted General Skin Exam: Negative for jaundice or pallor MDM MDM MDM Narrative Medical decision making narrative: 77-year-old female presenting with lightheadedness. She is tachycardic and reportedly hypotensive at home. Septic workup was pursued. Patient given IV fluids. She declines analgesia or antiemetic. Will obtain COVID, flu, RSV swabsince her sister has been recently ill. Will obtain EKG to assess for ischemia/dysrhythmia. High- sensitivity troponin we obtained and well. Patient will be pancultured. CBC to assess white blood cell count, hemoglobin, platelets. CMP to assess liver function, renal function, electrolytes, glucose. Urinalysis to assess for UTI. Lactic acid will be obtained. Given that the patient fell and lost about an hour of time after she fell I will obtain a CT ofthe brain rule intracranial injury. CBC shows normal white blood cell count of 5.5. Hemoglobin 10.0. Is noted the patient is lymphopenic. Creatinine slightly elevated today at 1.48 from a baseline of 1.06 previously. LFTs are nonelevated. Lactic acid was 3.3. Patient pancultured with a history of sepsis. Urinalysis is obtained and shows 500 leukocyte esterase, 25-50 white blood cells, 5-10 squamous epithelial cells, 1+ bacteria. I believe this is contaminated. Patient is not having dysuria. Reviewed last lab workup and her urine culture was negative. Patient was given 3 L of normal saline. She is noted to be feeling very well. It is also noted that the patient had to be placed on oxygen although this is unclear what time she had to be placed on oxygen and the patient does not wear oxygen. She is 89% and the bed without oxygen on. CT brain was negative. Chest x-ray was negative. COVID, influenza,RSV are all negative. Will repeat the lactic acid and ambulate the patient without oxygen to see what her needs are. Will also recheck her blood pressure. Blood pressure 134/74. Patient still hypoxic. Repeat lactic acid is in normallimits. Given that she is hypoxic I will have her admitted to the hospitalist for evaluation. Impression: 1. Syncope 2. Hypoxia 3. Lactic acidosis 4. Closed head injury 5. Dehydration Lab Data Attestation: I reviewed the patient's lab results. Labs: Laboratory Results - last 24 hr 04/10/23 04/10/23 04/10/23 16:40 17:54 21:20 WBC 5.5 RBC 3.35 L Hgb 10.0 L Hct 31.8 L MCV 94.9 MCH 29.9 MCHC 31.4 L RDW Std Deviation 51.3 H RDW Coeff of [place] 14.8 H Plt Count 158 MPV 10.2 Immature Gran % (Auto) 0.200 Neut % (Auto) 72.1 H Lymph % (Auto) 13.2 L [place] % (Auto) 14.1 H Eos % (Auto) 0.2 Baso % (Auto) 0.2 Absolute Neuts (auto) 3.9 Absolute Lymphs (auto) 0.72 L Nucleated RBC % 0 PT 14.7 INR 1.1 APTT 33.5 Sodium 135 L Potassium 4.0 Chloride 100 Carbon Dioxide 28.0 Anion Gap 7 BUN 22 H Creatinine 1.48 H Est GFR (MDRD) Af Amer 44 L Est GFR (MDRD) Non-Af 36 L BUN/Creatinine Ratio 14.9 Glucose 173 H Lactic Acid 3.3 H* 1.8 Calcium 9.1 Total Bilirubin 0.40 AST 63 H ALT 40 Alkaline Phosphatase 65 Troponin I High Sens 20 Total Protein 6.9 Albumin 3.2 Globulin 3.7 Albumin/Globulin Ratio 0.9 Urine Color Yellow Urine Clarity Cloudy Urine pH 5.0 Ur Specific [place] 1.020 Urine Protein 100 H Urine Glucose (UA) Normal Urine Ketones 5 H Urine Occult Blood 50 H Urine Nitrite Negative Urine Bilirubin 1 H Urine Urobilinogen Normal Ur Leukocyte Esterase 500 H Urine RBC 0-5 SEEN Urine WBC 25-50 SEEN Ur Squamous Epith Cells 5-10 SEEN Ur Renal Epithelial Cell 5-10 SEEN Urine Bacteria 1+ Hyaline Casts 0-5 SEEN Urine Mucus 0 SEEN Radiography Diagnostic Testing: Clinical Impression(s) from Imaging Studies Brain CT 04/10/23 16:00 IMPRESSION: Chronic involutional changes of the brain. No acute abnormality. Electronically Signed: Emil Winston MD at 17:13 EST , Chest X-Ray 04/10/23 17:01 IMPRESSION: No definite acute or significant abnormality seen. Electronically Signed: Emil Winston MD at 17:17 EST , Discharge Plan Triage Chief Complaint: Dizziness ED Provider: Tadeo Hutchinson Dx/Rx/DC Orders Prescriptions: No Action amitriptyline 50 mg tablet 50 mg PO QHS gabapentin 100 mg capsule 100 mg PO TID Patient Comments: PT STATES ONLY TAKES ONE CAPSULE TWICE A DAY ( OF 03/10/23) Trulicity 3 mg/0.5 mL pen injector 3 mg subcut TU atorvastatin 40 mg tablet 40 mg PO QHS Slow-Mag 71.5 mg tablet,delayed release (DR/EC) 71.5 mg PO BID ondansetron HCl 8 mg tablet 8 mg PO Q12H PRN (Reason: NAUSEA ) metformin 500 MG tablet 2 tab PO BID Qty: 120 0RF Hold Instructions: Resume on 03/21/23. silver sulfadiazine 1 % cream 1 applic topical DAILY PRN (Reason: BURN) Rx Instructions: APPLY ONE APPLICATION ONCE DAILY NEEDED TO HAND glimepiride 4 mg tablet 4 mg PO BID acetaminophen [Acetaminophen Extra Strength] 500 mg tablet 500 mg PO Q6H PRN (Reason: PAIN ) cefdinir 300 mg capsule 300 mg PO BID Qty: 14 0RF aspirin [Adult Low Dose Aspirin] 81 mg tablet,delayed release (DR/EC) 81 mg PO DAILY Jardiance 10 mg tablet 10 mg PO DAILY Qty: 30 11RF Primary Care Provider: Vinh Van Referrals: Vinh Van MD [Primary Care Provider] - What to do if you have Problems For any increased pain, shortness of breath, bleeding, nausea or vomiting, chestpain, or any unexpected problems, contact your Primary Care Provider. Call [facility] ([phone]) or report to the closest Emergency Room. Call 911 if necessary. 04/10/232206 <Electronically signed by Tadeo Hutchinson DO> Cosigner Signature (if applicable): CC: Dr. Vinh Van MD ~ Signed [facility] Work Phone: [phone] 790-168602-06-2024 Miscellaneous Notes* Telephone Encounter - Laure Fleming LPN - 04/06/2023 10:21 AM EST Pt seen in the office. Laure Fleming LPN * Telephone Encounter - Laure Fleming LPN - 03/22/2023 9:50 AM EST sister Humphrey calling for pt. Pt was last seen on 03-16-23 hospital follow up. Pt has been instructed not to take the Mobic for arthritis pain . Arthritis pain in the right shoulder/arm. is severe and has all the time for pt. Pt not able to sleep. Pt is using a heating pad. Pt was instructed at last apt to use Extra Strength Tylenol and this is not helping. Sister is asking what pt can take. They have Ibuprofen 600 mg tablets, Psenazopyride and left over Oxycodone (4) from a previous surgery. Please advise what sister what to use. Laure Fleming LPN [facility] Instructions* Patient Instructions* Farshad Marie MD - 04/02/2023 4:40 PM EST Thank you for your visit. Here are some instructions. STOP the jardiance Take your blood pressure everyday, keep a log I will let you know once the results of your lab tests are back I may start you on other medications depending on your lab tests Schedule your virtual visit with me for Apr 20 Schedule the cardiac MRI Other instructions: Make sure to visit your PCP and get your routine immunization and cancer screening tests Engage in 30 minutes of continuous exercise at least 5 days per week if you can tolerate Please take your blood pressures, heart rate, and weight daily. Please notify us via [employer] if your Systolic BP (top number) < 90 or > 150 consistently. Please record these values and bring them during your next clinic visit so we can adjust your medications appropriately. If you notice a 3 lbs weight gain within 3 days, please call our office for further instructions. Limit the amount of salt intake to less than 2 grams (or 2000 mg) and fluid intake to less than 2 liters (~60 ounces) a day. If you had lab tests or other testing done in another hospital, please send us a Celltrix message orgive our office a call. We do not receive notifications when you get these tests done. If you send us a Celltrix message and have not had a reply in 2-3 days, please call our office directly. xiao qu wu you messages are automated and are sometimes not directed to me. Advised no smoking, alcohol, drug use Advised no NSAID (aleve, motrin, advil) Advised importance of exercise, weight loss, and healthy diet Please send a Celltrix message or call with any questions or concerns: Outpatient Nurse: [phone] Flat Sorter Processor: Yun [phone] If you need to schedule any appointments, please call [phone] If no one has reached out to you to schedule your appointments, please call the number above. documented in this encounterBarn[facility]02-[facility] History of Present illness Narrative* Farshad Marie MD - 04/02/2023 3:45 PM EST Images from the original note were not included. Heart and Vascular [facility] SECTION OF HEART FAILURE and CARDIAC TRANSPLANT MEDICINE OUTPATIENT VISIT DATE April 02, 2023 OUTPATIENT VISIT TYPE New Patient PRIMARY CARE PHYSICIAN: Vinh Van [address] [place] [address] CHIEF COMPLAINT: Heart failure NURSING INTAKE (Patient s concerns and/or recent hospitalizations/ER visits): Pricila Hooker is a 77 y/o female from [place], [place] referred by Dr. Nora Branham for chemo and radiation induced cardiomyopathy. Pt has history of NICM, CAD, Stage IIIC endometrial endometrioid carcinoma with squamous differentiation, HLD, HTN, GERD, and DM2. Lisinopril was discontinued due hypotension HF Nursing Assessment: Interim Hospitalizations and/or ER visits: 03/10/23: UTI Chest Pain: no Skipping or irregular heartbeats: no Shortness of breath at rest: no Shortness of breath with activity: yes Cough: some Waking up in the middle of the night gasping for air: no Lightheadedness or dizziness: yes Feeling like you are going to pass out: yes Actually passing out: yes, a couple of times Poor energy level: yes Unintentional weight gain: no Unintentional weight loss: no Swelling in your legs,feet, abdomen: no Filling up quickly when you eat: yes, decreased appetite HISTORY OF PRESENT ILLNESS: 77F with history of Stage IIIC endometrial endometrioid carcinoma with squamous differentiation s/pTAH BSO 07/24/22, Type 2 DM who presents to clinic to establish care. She was diagnosed with endometrial cancer, had adjuvant treatment with carboplatin, paclitaxel and pembrolizumab. While at another hospital, noted to have LVEF 45% while on pembrolizumab. At that time, she was not treated with steroids due to reported hyperglycemia. No evidence of ischemia on MPI. Ziopatch showed rare ectopic beats all < 1.0%. Attempted to start her on GDMT but limited by hypotension so lisinopril was discontinued. She is on low dose coreg. She had 2 UTI's while on jardiance, one of which required hospital admission for urosepsis and lactic acidosis. She continues to endorse episodes of dizziness. Had episodes of passing out which had a pre-syncopal prodrome. Weight has been stable. No chest pain, palpitations, GUY, LE swelling. Prior smoking history No alcohol or drug use Reported local radiation therapy for her endometrial cancer but no reported chest radiation. PAST MEDICAL HISTORY Diagnosis Date Acute cholecystitis 01/04/2007 Arthritis Benign neoplasm of colon Diabetes mellitus without mention of complication Endometrial cancer (HCC) GERD (gastroesophageal reflux disease) Hemorrhoids Hypercholesteremia Hypertension Neuropathy Osteoarthritis of multiple joints PAST SURGICAL HISTORY Procedure Laterality Date ABDOMINAL SURGERY HX ARTHRP KNE CONDYLE&PLATU MEDIAL&LAT COMPARTMENTS 05/11/2011 Knee replacement, total right ARTHRP KNE CONDYLE&PLATU MEDIAL&LAT COMPARTMENTS 01/2011 left CATARACT EXTRACTION HX Left COLONOSCOPY FLX DX W/COLLJ SPEC WHEN PFRMD 12/28/2007 Colonoscopy COLONOSCOPY FLX DX W/COLLJ SPEC WHEN PFRMD 06/17/2012 Colonoscopy COLONOSCOPY FLX DX W/COLLJ SPEC WHEN PFRMD 11/05/2017 Colonoscopy EGD W/O BRSH SPEC VARICIES INJ 11/25/2022 EYE SURGERY HX JOINT REPLACEMENT HX LAPS SURG CHOLECYSTECTOMY W/CHOLANGIOGRAPHY 01/04/2007 LAPS TOTAL HYSTERECT 250 GM/< W/RMVL TUBE/OVARY 07/24/2022 Exam under anesthesia, total laparoscopic hysterectomy, bilateral salpingo- oophorectomy, sentinel lymph node mapping with excision of bilateral pelvic sentinel lymph nodes, and extensive lysis of adhesions. SOCIAL HISTORY Social History Tobacco Use Smoking status: Former Packs/day: 0.50 Years: 20.00 Additional pack years: 0.00 Total pack years: 10.00 Types: Cigarettes Quit date: 11/05/1977 Years since quittin.4 Smokeless tobacco: Never Vaping Use Vaping Use: Never used Substance Use Topics Alcohol use: No Drug use: No FAMILY HISTORY Problem Relation Age of Onset Heart Mother irregular heart rate Colon Cancer Mother Stroke Mother Heart Father from heart attack Colon Cancer Maternal Grandfather ALLERGIES: ALLERGIES No Known Allergies CURRENT MEDICATIONS: aspirin 81 mg cap Take 81 mg by mouth once daily. carvedilol (COREG) 3.125 mg tablet Take 3.125 mg by mouth two times a day with meals. gabapentin (NEURONTIN) 100 mg capsule Take 1 capsule by mouth three times a day for 90 days. (Patient taking differently: Take 100 mg by mouth two times a day.) amitriptyline (ELAVIL) 50 mg tablet take 1 tablet by mouth once daily at bedtime Magnesium Chloride (SLOW-MAG) 71.5 mg TbEC Take 1 tablet by mouth twice daily. glimepiride (AMARYL) 4 mg tablet Take 1 tablet by mouth twice daily with meals. acetaminophen (TYLENOL EXTRA STRENGTH) 500 mg tablet Take 2 tablets by mouth every 6 hours as needed for pain. atorvastatin (LIPITOR) 40 mg tablet TAKE 1 TABLET BY MOUTH ONCE DAILY AT BEDTIME FOR CHOLESTEROL metFORMIN (GLUCOPHAGE) 500 mg tablet Take 2 tablets by mouth twice daily with meals. . dulaglutide (TRULICITY) 3 mg/0.5 mL pen injector Inject 3 mg subcutaneously one time a week. Patient Assistance Medication. iv contrast (will be provided with radiology test) MRI Cardiac w/Qflow Inject, intravenously, once for 1 dose. No IV access, insert saline lock prior to the beginning of sedation, infusion, injectionof imaging exam. Discontinue saline lock post exam. If Pt has a central line or IVAD, may access for administration according to line specific nursing protocol. Once exam is complete flush line and de-access according to line specific nursing protocol in the MR contrast administration guidelines link Blood Pressure Monitor Take your blood pressure everyday and keep a log cefdinir (OMNICEF) 300 mg capsule Take 300 mg by mouth two times a day. (Patient not taking: Reported on 03/24/2023) silver sulfADIAZINE (SILVADENE) 1 % cream Apply to affected area once daily. pembrolizumab (KEYTRUDA) 25 mg/mL injection Inject 200 mg intravenously every 3 weeks for 16 doses. lidocaine-prilocaine (EMLA) 2.5-2.5 % cream Apply to affected area as needed. ondansetron (ZOFRAN) 8 mg tablet Take 1 tablet by mouth every 8 hours as needed for nausea/vomiting. (Patient not taking: Reported on 04/02/2023) Lancets lancets Test one time daily, Insulin Dep? No E11.9 DM 2 alcohol swabs (ALCOHOL PADS) Test one time daily, Insulin Dep? No E11.9 DM 2 blood sugar diagnostic (BLOOD GLUCOSE TEST) test strip Test one time daily, Insulin Dep? No E11.9 DM 2 REVIEW OF SYSTEMS: CONSTITUTION: Negative for: Weight loss or gain, Fever. Chills, Night sweats HEENT: Negative for: Hearing loss, Nosebleeds, Mouth sores, Trouble swallowing, Dry mouth RESPIRATORY: Negative for: Cough, Difficulty breathing GASTROINTESTINAL: Negative for: Melena, Diarrhea, Nausea, Abdominal distension, Early satiety MUSCULOSKELETAL: Negative for: Arthralgias, Myalgias NEUROLOGICAL: Positive for: Dizziness SKIN: Negative for: Rash EYES: Negative for: Vision disturbance CARDIOVASCULAR: Positive for: Pre-syncope GENITOURINARY: Negative for: Difficulty urinatiing PATIENT ENTERED DATA: No flowsheet data found. No flowsheet data found. No flowsheet data found. PHYSICAL EXAMINATION: BP 112/72 (BP Site: Left Arm, BP Position: Sitting, BP Cuff Size: Large Adult) Pulse 90 Ht 170.2 cm (5' 7") Wt 120.2 kg (265 lb) SpO2 93% BMI 41.50 kg/m General: Well appearing, in no acute distress. Skin: No clubbing, no cyanosis. Eyes: Extra ocular movements intact Oropharynx: Teeth in good repair. Neck: No jugular venous distention, no carotid bruits, carotids have a normal upstroke, no palpablethyromegaly. Lungs: Clear to auscultation bilaterally, no wheezing or rhonchi. Heart: Regular rhythm, PMI not displaced, S1, S2 normal, no S3, no S4, no heaves, no rub and no murmur. Abdomen: Soft, nontender, bowel sounds normal, no palpable organomegaly, no bruits. Extremities: No peripheral edema . Grade 2/4 distal pulses bilaterally. Neuro: Oriented to person, place and time, alert, cooperative, gait coordinated. CARDIOVASCULAR MEDICINE TESTING: I have personally reviewed the Electrocardiogram, Chest X-ray, Laboratory Testing, and Echocardiogram. Last ECHO Result Conclusion ECHO Collected: 04/02/2023 3:06 PM (Final result) Impression: CONCLUSIONS: - Technically difficult exam due to body habitus. - Exam indication: Baseline and serial evaluation in a patient undergoing therapy with cardiotoxic agents - The left ventricle is normal in size. There is mild concentric left ventricular hypertrophy. Left ventricular systolic function is mildly decreased. EF = 44 5% (2D biplane) Left ventricular diastolic function was not evaluated due to E/a fusion. -Global Strain -9.8% - The right ventricle is normal in size. Right ventricular systolic function is normal. - The visualized aorta is borderline dilated with a maximal dimension of 4.0 cm. - Exam was compared with the prior echocardiographic exam performed on 12/24/2022. No significant change. * * * Final * * * Last EKG Result Conclusion ECG COMPLETE Collected: 04/02/2023 1:45 PM (Preliminary result) Impression: UNUSUAL P AXIS, POSSIBLE ECTOPIC ATRIAL RHYTHM WITH UNDETERMINED RHYTHM IRREGULARITY ABNORMAL ECG Last CT Result Conclusion CT CHEST W IVCON Exam End: 12/24/2022 3:00 PM (Final result) Impression: IMPRESSION: No CT evidence of metastatic disease in the thorax. 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 She has diagnosed endometrial cancer, had adjuvant treatment with carboplatin, paclitaxel and pembrolizumab. While at another hospital, noted to have LVEF 45% while on pembrolizumab. At that time, she was not treated with steroids due to reported hyperglycemia. No evidence of ischemia on MPI. Ziopatch showed rare ectopic beats all < 1.0%. Attempted to start her on GDMT but limited by hypotension so lisinopril was discontinued. She is on low dose coreg. She had 2 UTI's while on jardiance, oneof which required hospital admission for urosepsis and lactic acidosis. 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 She has not had CMRI to assess for myocarditis and was never on steroids. Will order CMRI for further evaluation. 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 Will prefer to continue holding off on pembrolizumab at thistime Virtual visit in 2 weeks for medication titration I personally interviewed, confirmed and edited the above information as obtained by others We discussed natural history of disease, current treatment options, and future potential treatment options. We discussed diet, exercise, other non-medical management as above. Farshad Marie MD [facility] Section Of Heart Failure and Cardiac Transplant Medicine Heart and Vascular [place] [facility] Desk [address] [id number] documented in this encounterBarnesville Hospital01-24-2024 History of Present illness Narrative* Elvi Palencia, RT(R) - 03/24/2023 12:20 PM EST Radiology Service Progress Note PATIENT NAME: Pricila Hooker DATE OF SERVICE: March 24, 2023 TIME: 12:53 PM PATIENT IDENTITY VERIFICATION COMPLETED USING TWO (2) IDENTIFIERS: Name and Date of confirmedby patient verbally. FALL SCREENING: Has the patient had 2 falls in the last year or 1 fall with injury or currently using an Ambulatory Assistive Device (Walker, Cane, Wheelchair, Crutches, etc.)? Yes, Patient High Riskfor Falls What interventions were put in place to prevent falls during this visit? Offered Assistance with Transfers/Clothing, Instructed Patient to Remain Seated (Not on Exam Table) Until Exam, and Increased Observations by Caregivers PATIENT GENDER DATA: Female. status: : No status: NO. PATIENT RELEVANT IMPLANT DATA REVIEWED: Yes RADIOLOGY DEPARTMENT: General X-ray: Exam(s) Completed: Upper Extremity X- Ray(s): Shoulder, AP / TRUE AP / AXILLARY right PERIPHERAL IV DATA: Not applicable SIGNED BY: RT Ashlyn(R) March 24, 2023 12:53 PM documented in this encounterBarnesville Hospital01-16-2024 History of Present illness Narrative* Bridgette Bryan RN - 03/16/2023 7:28 AM EST Patient is here for IVAD port flush/blood draw per Nursing [place] protocol. IVAD is located in left upper chest. Site cleansed with Chloraprep IVAD accessed with a #20 gauge 3/4" non-coring Gripper needle Flush with 5cc's Normal Saline. Blood Return: Good. 10 cc's blood aspirated and discarded. Blood drawn for CBC, CMP, MAG, and Ca-125. Flushed with: 20 ml Normal Saline and 5 ml Heparin Lock Flush. Non-coring needle removed. Paper tape applied to puncture site. Site negative for redness, edema or tenderness. Patient tolerated procedure well. documented in this encounterBarnesville Hospital01-12-2024 Discharge summary Author Bing Doran [facility] March 12, 2023 1:30pm Note Date/Time March 12, 2023 1 :30pm [facility] Medical Records Department [address] [place] [address] Discharge Summary 03/12/23 1327 MR#: [id number] Acct: [id number] Name: PRICILA HOOKER Rep #:[id number] : 1945 77 From: Bing Doran MD PCP: Dr. Vinh Van MD Status:AD M IN Location: [place] [address] Providers Date of Admission: 03/10/23 Date of Discharge: 03/12/23 Primary Care Physician: Dr. Vinh Van MD Reason For Visit: UTI, HYPOTENSION, LACTIC ACIDOSIS Diagnosis Discharge Diagnosis (1) Urinary tract infection: Status: Acute Code(s): N39.0 - Urinary tract infection, site not specified (2) Hypotension (arterial): Status: Chronic Code(s): I95.9 - Hypotension, unspecified Plan Patient is a 77-year-old lady who was [facility] the [facility] with complaints of progressive generalized weakness as well as lightheadedness. Patient was found to have acute cystitis admitted to a monitored bed for further management 1. Sepsis ? (Present on admission) evidenced by evidence of an infection, SIRS criteria aswell as evidence of endorgan dysfunction including hypotension and lactic acidosis. Patient responded to treatment -03/12/2023 patient responded to treatment 2. Acute cystitis ? Patient presented with sepsis. Managed with IV fluid resuscitation as well asbroad-spectrum antibiotic therapy ? 03/12/2023 urine and blood cultures pending ? Final urine cultures Mixed Gram Positive Organisms. Patient discharged with10 empiric treatment with cefdinir 3. Chronic kidney disease stage IIIa ? Patient kidney function close to baseline 4.Nonischemic cardiomyopathy ? Following patient chemotherapy. Patient is followed by cardiology as outpatient 5. Essential hypertension ? Patient antihypertensives on hold given her presentation 6. Class III obesity with BMI of 42.5 ? Complicating care weight loss advised 7. Diabetes mellitus type II -patient's oral hypoglycemics held. Placed on long acting insulin, Accu-Cheks a.c. and at bedtime and covered with sliding scale insulin 8. Dyslipidemia -Patient is on statin therapy, continued at home dose 9. Stage IIIc Endometrial CA- Patient status post previous hysterectomy on adjuvant therapy with carboplatin,paclitaxel and pembrolizumab.. Patient completed therapy with radiation and is scheduled to begin immunotherapy 10. Anemia - Secondary to chronic disorder monitoring H&H and transfuse if patient becomes symptomatic or hemoglobin falls below 7 11. DVT prophylaxis -Heparin. 12. Physical deconditioning - Requested for PT OT eval and social sciences chair to assist with discharge planning Time spent in the patient's overall evaluation,decision-making process, review of diagnostic data, adjustment of management, discussion with other providers, nursing nursing and ancillary staff involved in patient's care documentation, 35minutes Medications at Discharge Home Medications metformin 500 mg tablet 2 tab PO BID DIABETES #120 tabs 03/08/21 amitriptyline 50 mg tablet 50 mg PO QHS DEPRESSION 12/23/22 atorvastatin 40 mg tablet 40 mg PO QHS CHOLESTEROL 12/23/22 dulaglutide 3 mg/0.5 mL subcutaneous pen injector (Trulicity) 3 mg subcut TU DIABETES 12/23/22 gabapentin 100 mg capsule 100 mg PO TID NERVE PAIN 12/23/22 empagliflozin 10 mg tablet (Jardiance) 10 mg PO DAILY DIABETES #30 tabs 12/29/22 magnesium chloride 71.5 mg (magnesium chloride) tablet,delayed release (Slow- Mag) 71.5 mg PO BID SUPPLEMENT 12/29/22 ondansetron HCl 8 mg tablet 8 mg PO Q12H PRN NAUSEA 12/29/22 aspirin 81 mg tablet,delayed release (Adult Low Dose Aspirin) 81 mg PO DAILY HEART HEALTH 01/24/23 acetaminophen 500 mg tablet (Acetaminophen Extra Strength) 500 mg PO Q6H PRN PAIN 03/10/23 glimepiride 4 mg tablet 4 mg PO BID DIABETES 03/10/23 silver sulfadiazine 1 % topical cream 1 applic topical DAILY PRN BURN 03/10/23 cefdinir 300 mg capsule 300 mg PO BID #14 caps 03/12/23 Hospital Course Summary of Care Provided Minutes Spent on Discharge: 35 Physical Exam Narrative GENERAL: cooperative HEENT: Atraumatic; normocephalic EYES; Anicteric, Normal Conjunctiva NECK; supple, normal thyroid, RESPIRATORY: Diminished to auscultation CARDIOVASCULAR: Regular S1 S2, GI: soft, normoactive bowel sounds, : No Renal angle tenderness; EXTREMITIES: edema, no clubbing, MUSCULOSKELETAL: no muscle wasting NEURO: Awake; no lateralizing signs. SKIN: No Rash PSYCH; Flat affect Weight / BMI Weight Weight: 123.4 kg Body Mass Index (BMI) 42.6 ABG / Lab / Microbiology Data 03/12/23 05:45 03/12/23 05:45 Laboratory: Laboratory Results - last 24 hr 03/12/23 05:45: WBC 7.2, RBC 3.14 L, Hgb 9.7 L, Hct 30.4 L, MCV 96.8, MCH 30.9, MCHC 31.9 L, RDW Std Deviation 50.6 H, RDW Coeff of Casper 14.4, Plt Count 145 L, MPV 10.3, Immature Gran % (Auto) 0.300, Neut % (Auto) 69.9, Lymph % (Auto) 15.1 L, Montgomery % (Auto) 9.7, Eos % (Auto) 4.6, Baso % (Auto) 0.4, Absolute Neuts (auto)5.0, Absolute Lymphs (auto) 1.09, Nucleated RBC % 0, Sodium 141, Potassium 4.2, Chloride 109 H, Carbon Dioxide 26.0, Anion Gap 6, BUN 27 H, Creatinine 1.06 H, Estim Creat Clear Calc 60.57, Est GFR (MDRD) Af Amer 65, Est GFR (MDRD) Non-Af 53 L, BUN/Creatinine Ratio 25.5 H, Glucose 152 H, Calcium 9.3, Phosphorus 3.6, Magnesium 1.8 Microbiology: Microbiology 03/10/23 15:55 Urine, Clean Catch Urine Culture - Final Mixed Gram Positive Organisms D/C Instructions Discharge Diet: 1800 Calorie Control Diet Discharge Activity: Return to Normal Activity Call your doctor if you observe: Fever of 101 or Higher, Shortness of breath, Fainting spells and Chest pain Meaningful Use Info Meaningful Use Diagnoses (Choose all that apply): None applicable Discharge Plan Admission Admit Date/Time: 03/10/23 18:20 Attending Provider: Bing Doran Primary Care Provider: Vinh Van Consulting Providers: Renata Culver Discharge Orders/Prescriptions Prescriptions: New cefdinir 300 mg capsule 300 mg PO BID Qty: 14 0RF Continued amitriptyline 50 mg tablet 50 mg PO QHS gabapentin 100 mg capsule 100 mg PO TID Patient Comments: PT STATES ONLY TAKES ONE CAPSULE TWICE A DAY ( OF 03/10/23) Trulicity 3 mg/0.5 mL pen injector 3 mg subcut TU atorvastatin 40 mg tablet 40 mg PO QHS Slow-Mag 71.5 mg tablet,delayed release (DR/EC) 71.5 mg PO BID ondansetron HCl 8 mg tablet 8 mg PO Q12H PRN (Reason: NAUSEA ) silver sulfadiazine 1 % cream 1 applic topical DAILY PRN (Reason: BURN) Rx Instructions: APPLY ONE APPLICATION ONCE DAILY NEEDED TO HAND glimepiride 4 mg tablet 4 mg PO BID acetaminophen [Acetaminophen Extra Strength] 500 mg tablet 500 mg PO Q6H PRN (Reason: PAIN ) aspirin [Adult Low Dose Aspirin] 81 mg tablet,delayed release (DR/EC) 81 mg PO DAILY Jardiance 10 mg tablet 10 mg PO DAILY Qty: 30 11RF Held metformin 500 MG tablet 2 tab PO BID Qty: 120 0RF Hold Instructions: Resume on 03/21/23. Referrals / Follow Up: Vinh Van MD [Primary Care Provider] - Within 1 Week Disposition Disposition (needs filled in before D/C Order can be placed): Home, Self Care Charges/Coding Visit Charges Inpatient E&M: 44425 Disch Hosp >30min 03/12/23 1330 <Electronically signed by Bing Doran MD> Cosigner Signature (if applicable): CC: Dr. Bing Doran MD; Dr. Vinh Van MD~ Signed [facility] Work Phone: 1(651) 175-805801-12-2024 Progress note Author Bing Moralesrj [facility] March 12, 2023 10:32am Note Date/Time March 12, 2023 1 0:09am [facility] Medical Records Department [address] [place] [address] Progress Note - Hospitalist 03/12/23 1009 MR#: [id number] Acct: [id number] Name: PRICILA HOOKER Rep #:[id number] : 1945 77 From: Bing Doran MD PCP: Dr. Vinh Van MD Status:AD M IN Location: [place] [address] Reason for Visit Reason for Visit: Diagnoses Hypotension, unspecified (03/10/23) Urinary tract infection, site not specified (03/10/23) Subjective Subjective Patient seen appears to be improving clinically. Urine and blood culture still pending Objective Data Objective Data Vital Signs: Vital Signs Temp Pulse Resp BP Pulse Ox O2 Del Method 97.6 F L 80 20 H 107/66 92 Nasal Cannula 03/12/23 04:18 03/12/23 04:18 03/12/23 04:18 03/12/23 04:18 03/12/23 04:18 03/12/23 08:20 Oxygen Delivery Method Nasal Cannula Weight: 123.4 kg Body Mass Index (BMI) 42.6 Intake & Output: Intake and Output for Last 24 Hours 03/10/23 03/11/23 03/12/23 23:59 23:59 23:59 Intake Total 1549 1476.25 / 1776.25 420 / 420 Balance 1549 1476.25 / 1776.25 420 / 420 Lab / Micro Data 03/12/23 05:45 03/12/23 05:45 Labs: Laboratory Results - last 24 hr 03/12/23 05:45: WBC 7.2, RBC 3.14 L, Hgb 9.7 L, Hct 30.4 L, MCV 96.8, MCH 30.9, MCHC 31.9 L, RDW Std Deviation 50.6 H, RDW Coeff of Casper 14.4, Plt Count 145 L, MPV 10.3, Immature Gran % (Auto) 0.300, Neut % (Auto) 69.9, Lymph % (Auto) 15.1 L, Montgomery % (Auto) 9.7, Eos % (Auto) 4.6, Baso % (Auto) 0.4, Absolute Neuts (auto)5.0, Absolute Lymphs (auto) 1.09, Nucleated RBC % 0, Sodium 141, Potassium 4.2, Chloride 109 H, Carbon Dioxide 26.0, Anion Gap 6, BUN 27 H, Creatinine 1.06 H, Estim Creat Clear Calc 60.57, Est GFR (MDRD) Af Amer 65, Est GFR (MDRD) Non-Af 53 L, BUN/Creatinine Ratio 25.5 H, Glucose 152 H, Calcium 9.3, Phosphorus 3.6, Magnesium 1.8 Physical Exam Narrative GENERAL: cooperative HEENT: Atraumatic; normocephalic EYES; Anicteric, Normal Conjunctiva NECK; supple, normal thyroid, RESPIRATORY: Diminished to auscultation CARDIOVASCULAR: Regular S1 S2, GI: soft, normoactive bowel sounds, : No Renal angle tenderness; EXTREMITIES: edema, no clubbing, MUSCULOSKELETAL: no muscle wasting NEURO: Awake; no lateralizing signs. SKIN: No Rash PSYCH; Flat affect Assessment & Plan Assessment/Plan (1) Urinary tract infection: (2) Hypotension (arterial): PLAN: Plan Patient is a 77-year-old lady who was sent from the heart group with complaints of progressive generalized weakness as well as lightheadedness. Patient was found to have acute cystitis admitted to a monitored bed for further management 1. Sepsis ? (Present on admission) evidenced by evidence of an infection, SIRS criteria aswell as evidence of endorgan dysfunction including hypotension and lactic acidosis. Patient responded to treatment -03/12/2023 patient responded to treatment 2. Acute cystitis ? Patient presented with sepsis. Managed with IV fluid resuscitation as well asbroad-spectrum antibiotic therapy ? 03/12/2023 urine and blood cultures pending 3. Chronic kidney disease stage IIIa ? Patient kidney function close to baseline 4.Nonischemic cardiomyopathy ? Following patient chemotherapy. Patient is followed by cardiology as outpatient 5. Essential hypertension ? Patient antihypertensives on hold given her presentation 6. Class III obesity with BMI of 42.5 ? Complicating care weight loss advised 7. Diabetes mellitus type II -patient's oral hypoglycemics held. Placed on long acting insulin, Accu-Cheks a.c. and at bedtime and covered with sliding scale insulin 8. Dyslipidemia -Patient is on statin therapy, continued at home dose 9. Stage IIIc Endometrial CA- Patient status post previous hysterectomy on adjuvant therapy with carboplatin,paclitaxel and pembrolizumab.. Patient completed therapy with radiation and is scheduled to begin immunotherapy 10. Anemia - Secondary to chronic disorder monitoring H&H and transfuse if patient becomes symptomatic or hemoglobin falls below 7 11. DVT prophylaxis -Heparin. 12. Physical deconditioning - Requested for PT OT eval and social sciences chair to assist with discharge planning Time spent in the patient's overall evaluation,decision-making process, review of diagnostic data, adjustment of management, discussion with other providers, nursing nursing and ancillary staff involved in patient's care documentation, 35minutes Charges/Coding Visit Charges Inpatient E&M: 73864 Subs Hosp L2 03/12/23 1032 <Electronically signed by Bing Doran MD> Cosigner Signature (if applicable): CC: ~ Signed [facility] Work Phone: 1(532) 846-317201-11-2024 Progress note Author Bing Doran [facility] March 11, 2023 10:30am Note Date/Time March 11, 2023 1 0:20am [facility] Medical Records Department [address] [place] [address] Progress Note - Hospitalist 03/11/23 1013 MR#: [id number] Acct: [id number] Name: PRICILA HOOKER Rep #:[id number] : 1945 77 From: Bing Doran MD PCP: Dr. Vinh Van MD Status:AD M IN Location: [place] [id number] Reason for Visit Reason for Visit: Diagnoses Hypotension, unspecified (03/10/23) Urinary tract infection, site not specified (03/10/23) Subjective Subjective Patient is a 77-year-old lady who was sent from the heart group with complaints of progressive generalized weakness as well as lightheadedness. Patient was found to have acute cystitis admitted to a monitored bed for further management Objective Data Objective Data Vital Signs: Vital Signs Temp Pulse Resp BP Pulse Ox O2 Del Method 97.7 F L 84 16 100/72 94 Room Air 03/11/23 09:31 03/11/23 09:31 03/11/23 09:31 03/11/23 09:31 03/11/23 09:31 03/11/23 09:31 Oxygen Delivery Method Room Air Weight: 123.2 kg Body Mass Index (BMI) 42.5 Intake & Output: Intake and Output for Last 24 Hours 03/09/23 03/10/23 03/11/23 23:59 23:59 23:59 Intake Total 1550 / 1989 440 / 440 Balance 1551989 440 / 440 Lab / Micro Data 03/11/23 07:25 03/11/23 07:25 Labs: Laboratory Results - last 24 hr 03/10/23 15:03: WBC 8.6, RBC 3.64 L, Hgb 11.2 L, Hct 35.3 L, MCV 97.0, MCH 30.8,MCHC 31.7 L, RDW Std Deviation 51.4 H, RDW Coeff of [place]per 14.4, Plt Count 194, MPV10.6, Immature Gran % (Auto) 0.300, Neut % (Auto) 69.8, Lymph % (Auto) 15.4 L, [place] % (Auto) 7.3, Eos % (Auto) 6.5 H, Baso % (Auto) 0.7, Absolute Neuts (auto) 6.0, Absolute Lymphs (auto) 1.33, Nucleated RBC % 0, Sodium 136, Potassium 4.0, Chloride 103, Carbon Dioxide 25.0, Anion Gap 8, BUN 32 H, Creatinine 1.59 H, Estim Creat Clear Calc 40.29, Est GFR (MDRD) Af Amer 41 L, Est GFR (MDRD) Non-Af33 L, BUN/Creatinine Ratio 20.1 H, Glucose 253 H, Calcium 9.5, Phosphorus 4.0, Magnesium 1.6, Troponin I High Sens 10 03/10/23 15:45: Lactic Acid 3.5 H* 03/10/23 15:55: Urine Color Yellow, Urine Clarity Cloudy, Urine pH 6.0, Ur Specific [place] 1.015, Urine Protein 100 H, Urine Glucose (UA) 1000 H, Urine Ketones Negative, Urine Occult Blood 50 H, Urine Nitrite Negative, Urine Bilirubin 1 H, Urine Urobilinogen Normal, Ur Leukocyte Esterase 500 H, Urine RBC0 SEEN, Urine WBC >100 SEEN, Ur Squamous Epith Cells 0 SEEN, Urine Bacteria 0 SEEN, Urine Mucus 0 SEEN 03/10/23 20:44: Lactic Acid 3.1 H* 03/11/23 07:25: WBC 5.6, RBC 3.02 L, Hgb 9.5 L, Hct 29.6 L, MCV 98.0, MCH 31.5, MCHC 32.1, RDW Std Deviation 52.3 H, RDW Coeff of [place] 14.6, Plt Count 139 L, MPV10.3, Immature Gran % (Auto) 0.200, Neut % (Auto) 64.1, Lymph % (Auto) 18.7 L, [place] % (Auto) 9.4, Eos % (Auto) 7.1 H, Baso % (Auto) 0.5, Absolute Neuts (auto) 3.6, Absolute Lymphs (auto) 1.05, Nucleated RBC % 0, Sodium 138, Potassium 4.1, Chloride 107, Carbon Dioxide 25.0, Anion Gap 6, BUN 33 H, Creatinine 1.32 H, Estim Creat Clear Calc 48.59, Est GFR (MDRD) Af Amer 50 L, Est GFR (MDRD) Non-Af41 L, BUN/Creatinine Ratio 25.0 H, Glucose 227 H, Calcium 8.8, Total Bilirubin 0.20, AST 11 L, ALT 16, Alkaline Phosphatase 61, Total Protein 6.2 L, Albumin 2.9 L, Globulin 3.3, Albumin/Globulin Ratio 0.9 Radiography Diagnostic Testing: Radiology Impression Chest X-Ray 03/10/23 15:54 IMPRESSION: No acute cardiopulmonary abnormality. Electronically Signed: Keith Pandey MD at 16:19 EST , Physical Exam Narrative GENERAL: cooperative HEENT: Atraumatic; normocephalic EYES; Anicteric, Normal Conjunctiva NECK; supple, normal thyroid, RESPIRATORY: Diminished to auscultation CARDIOVASCULAR: Regular S1 S2, GI: soft, normoactive bowel sounds, : No Renal angle tenderness; EXTREMITIES: edema, no clubbing, MUSCULOSKELETAL: no muscle wasting NEURO: Awake; no lateralizing signs. SKIN: No Rash PSYCH; Flat affect Assessment & Plan Assessment/Plan (1) Urinary tract infection: (2) Hypotension (arterial): PLAN: Plan Patient is a 77-year-old lady who was [facility] the [facility] with complaints of progressive generalized weakness as well as lightheadedness. Patient was found to have acute cystitis admitted to a monitored bed for further management 1. Sepsis ? (Present on admission) evidenced by evidence of an infection, SIRS criteria aswell as evidence of endorgan dysfunction including hypotension and lactic acidosis. Patient responded to treatment 2. Acute cystitis ? Patient presented with sepsis. Managed with IV fluid resuscitation as well asbroad-spectrum antibiotic therapy 3. Chronic kidney disease stage IIIa ? Patient kidney function close to baseline 4.Nonischemic cardiomyopathy ? Following patient chemotherapy. Patient is followed by cardiology as outpatient 5. Essential hypertension ? Patient antihypertensives on hold given her presentation 6. Class III obesity with BMI of 42.5 ? Complicating care weight loss advised 7. Diabetes mellitus type II -patient's oral hypoglycemics held. Placed on long acting insulin, Accu-Cheks a.c. and at bedtime and covered with sliding scale insulin 8. Dyslipidemia -Patient is on statin therapy, continued at home dose 9. Stage IIIc Endometrial CA- Patient status post previous hysterectomy on adjuvant therapy with carboplatin,paclitaxel and pembrolizumab.. Patient completed therapy with radiation and is scheduled to begin immunotherapy 10. Anemia - Secondary to chronic disorder monitoring H&H and transfuse if patient becomes symptomatic or hemoglobin falls below 7 11. DVT prophylaxis -Heparin. Time spent in the patient's overall evaluation,decision-making process, review of diagnostic data, adjustment of management, discussion with other providers, nursing nursing and ancillary staff involved in patient's care documentation, 50 Minutes Sepsis Attestation Sepsis Attestation: Agree w/Sepsis Possible Source of Sepsis: GI tract/intra-abdominal Sepsis Organ Dysfunction Criteria Present: SBP < 90 mmHg or MAP < 65 mmHg and Lactic Acid > 2 mmol/L Charges/Coding Visit Charges Inpatient E&M: 82002 Subs Hosp L3 03/11/23 1030 <Electronically signed by Bing Doran MD> Cosigner Signature (if applicable): CC: ~ Signed [facility] Work Phone: 1(740) 385-430101-11-2024 Discharge summary Author Myron Marcus [facility] March 11, 2023 12:15am Note Date/Time March 10, 2023 3 :14pm [facility] Medical Records Department [address] [place] [address] Emergency Department Summary 03/10/23 MR#: [id number] Acct: [id number] Name: PRICILA HOOKER Rep #:[id number] : 1945 77 From: Myron Sarabia PCP: Dr. Vinh Van MD Status:AD M IN Location: [address] History of Present Illness Chief Complaint: Hypotension Informant: patient and family (Sister) Onset/Context/Timing Onset: Today Context: Gradual Onset Timing: Waxes and wanes Quality: Lightheaded Location: Generalized Worsened by: Standing, sitting Relieved by: Nothing Narrative Narrative: Patient presents with low blood pressure that was noticed today. Patient has appointment with her carrier associate today where they noted her blood pressure was 76/58. Patient states she has been feeling lightheaded for the past several days. Patient states it is worse with standing and sitting. Patient states it is gradually gotten worse. Patient does not take her blood pressure at home so she does not know if her blood pressure is low when she feels lightheaded. Patient was recently diagnosed with cardiomyopathy associated with chemotherapy and radiation therapy. Patient admits to some subjective chills but denies any fevers. [facility] Medical History (Updated 03/10/23 @ 17:[address] Myron Marcus, DO) Benign neoplasm of colon Chest pain Cholecystitis CKD (chronic kidney disease) stage 3, GFR 30-59 ml/min Coronary artery disease Diabetes Dyslipidemia Endometrial cancer Endometrial cancer, FIGO stage IIIC GERD (gastroesophageal reflux disease) History of cancer of uterus Hypercholesteremia Hypertension Hypomagnesemia Neuropathy Nonischemic cardiomyopathy Obesity Pancytopenia Home Medications metformin 500 mg tablet 2 tab PO BID DIABETES #120 tabs 05/06/20 [Rx Last Taken 03/10/23] amitriptyline 50 mg tablet 50 mg PO QHS DEPRESSION 12/23/22 [History Last Taken 03/09/23] atorvastatin 40 mg tablet 40 mg PO QHS CHOLESTEROL 12/23/22 [History Last Taken 03/09/23] dulaglutide 3 mg/0.5 mL subcutaneous pen injector (Trulicity) 3 mg subcut TU DIABETES 12/23/22 [History Last Taken 03/09/23] gabapentin 100 mg capsule 100 mg PO TID NERVE PAIN 12/23/22 [History Last Taken 03/10/23] empagliflozin 10 mg tablet (Jardiance) 10 mg PO DAILY DIABETES #30 tabs 12/29/22 [Rx Last Taken 03/10/23] magnesium chloride 71.5 mg (magnesium chloride) tablet,delayed release (Slow- Mag) 71.5 mg PO BID SUPPLEMENT 12/29/22 [History Last Taken 03/10/23] ondansetron HCl 8 mg tablet 8 mg PO Q12H PRN NAUSEA 12/29/22 [History Last Taken Unknown] aspirin 81 mg tablet,delayed release (Adult Low Dose Aspirin) 81 mg PO DAILY HEART HEALTH 01/24/23 [History Last Taken 03/10/23] acetaminophen 500 mg tablet (Acetaminophen Extra Strength) 500 mg PO Q6H PRN PAIN 03/10/23 [History Last Taken Unknown] glimepiride 4 mg tablet 4 mg PO BID DIABETES 03/10/23 [History Last Taken 03/10/23] silver sulfadiazine 1 % topical cream 1 applic topical DAILY PRN BURN 03/10/23 [History Last Taken 03/10/23] Allergy/AdvReac Type Severity Reaction Status Date / Time No Known Allergies Allergy Verified 03/10/23 14:35 Family History Father Myocardial infarction Mother Heart disease irregular heart rate Colon cancer Surgical History History of total left knee replacement (TKR) (~01/2011) History of total right knee replacement (TKR) (~05/11/11) Hx laparoscopic cholecystectomy Hx of cataract surgery Hx of hysterectomy, total Social History household members: none Smoking Status: Former smoker how long ago did patient quit smokin alcohol intake: never substance use type: does not use ROS ROS ED Constitutional Constitutional ED: Reports chills and subjective; Denies fever(s) Eyes Eyes: Denies blurry vision or change in vision ENT ENT ED: Denies rhinorrhea or sore throat Cardiovascular Cardiovascular: Denies chest pain or palpitations Respiratory/Chest Respiratory/Chest: Denies cough or dyspnea Gastrointestinal Gastrointestinal: Denies nausea or vomiting Genitourinary Genitourinary ED: Denies dysuria or hematuria Musculoskeletal Musculoskeletal: Reports back pain and neck pain Integumentary Denies abscess or rash Neurologic Neurologic: Reports weakness; Denies headache(s) Allergic/Immunologic Allergic/Immunologic ED: Denies mouth swelling or urticaria EXAM Physical Exam Const Vital Signs: 03/10/23 14:36 03/10/23 16:02 Temperature 96 F L Temperature Source Temporal Pulse Rate 80 Respiratory Rate 14 Respiratory Effort Normal Non-Labored Respiratory Pattern Normal Blood Pressure 79/60 L Blood Pressure Mean 66 Pulse Ox 96 Oxygen Delivery Method Room Air Positive well nourished and well developed General Appearance ED: well developed and NAD HEENT Reports moist mucous membranes Neck supple and no JVD Resp normal respiratory effort and clear to auscultation bilaterally Cardio regular rate and regular rhythm GI non-tender and non-distended Palpation: soft Neuro oriented x3, CN's II-XII intact bilaterally and no sensory deficits noted Sensorium / Orientation: alert Motor Exam: strength 5/5 throughout Psych mental status grossly normal MDM MDM MDM Narrative Medical decision making narrative: Differential diagnosis foods dehydration, electrolyte abnormality, hypoglycemia,sepsis, urinary tract infection, cardiac dysrhythmia, cardiac ischemia, pneumonia, and orthostasis. EKG will be obtained to assess for cardiac dysrhythmia and cardiac ischemia. Chest x-ray will be obtained to assess for pneumonia, pneumothorax, and congestive heart failure. CBC will be obtained to assess for leukocytosis and anemia. High-sensitivity troponin will be obtained to assess for cardiac ischemia. Analysis will be obtained to assess for urinarytract infection and hematuria. Serum magnesium will be obtained to assess for hypomagnesemia. Lab Data Attestation: I reviewed the patient's lab results. Lab results narrative: CBC was reviewed. There is mild anemia with a hemoglobin of 11.2 and [id number]. This is improved from previous results. Basic metabolic profile was reviewed. BUN was 32 and creatinine was 1.59. These are consistent with prior results. Glucose was mildly elevated at 253. Anion gap was normal. Serum lactate was reviewed and was elevated at 3.5. High-sensitivity troponin was reviewed and was normal at 10. Urinalysis was reviewed. Leukocyte esterase [id number] with greater than 100 white blood cells. Labs: Laboratory Results - last 24 hr 03/10/23 03/10/23 03/10/23 15:03 15:45 15:55 WBC 8.6 RBC 3.64 L Hgb 11.2 L Hct 35.3 L MCV 97.0 MCH 30.8 MCHC 31.7 L RDW Std Deviation 51.4 H RDW Coeff of [place] 14.4 Plt Count 194 MPV 10.6 Immature Gran % (Auto) 0.300 Neut % (Auto) 69.8 Lymph % (Auto) 15.4 L [place] % (Auto) 7.3 Eos % (Auto) 6.5 H Baso % (Auto) 0.7 Absolute Neuts (auto) 6.0 Absolute Lymphs (auto) 1.33 Nucleated RBC % 0 Sodium 136 Potassium 4.0 Chloride 103 Carbon Dioxide 25.0 Anion Gap 8 BUN 32 H Creatinine 1.59 H Estim Creat Clear Calc 40.29 Est GFR (MDRD) Af Amer 41 L Est GFR (MDRD) Non-Af 33 L BUN/Creatinine Ratio 20.1 H Glucose 253 H Lactic Acid 3.5 H* Calcium 9.5 Troponin I High Sens 10 Urine Color Yellow Urine Clarity Cloudy Urine pH 6.0 Ur Specific [place] 1.015 Urine Protein 100 H Urine Glucose (UA) 1000 H Urine Ketones Negative Urine Occult Blood 50 H Urine Nitrite Negative Urine Bilirubin 1 H Urine Urobilinogen Normal Ur Leukocyte Esterase 500 H Urine RBC 0 SEEN Urine WBC >100 SEEN Ur Squamous Epith Cells 0 SEEN Urine Bacteria 0 SEEN Urine Mucus 0 SEEN Radiography Chest X-Ray - ED: 1 View, Read by ED Physician, Read by Radiologist and No AcuteDisease Diagnostic Testing: Clinical Impression(s) from Imaging Studies Chest X-Ray 03/10/23 15:54 IMPRESSION: No acute cardiopulmonary abnormality. Electronically Signed: Keith Pandey MD at 16:19 EST , Portable 1 view chest x-ray was obtained. On my independent interpretation, lung thompson are clear. There is normal cardiac silhouette. Bony thorax is normal. There is no acute process noted. Radiologist also interpreted the x-ray and agrees. EKG Initial EKG: Attestation: I personally reviewed and interpreted this EKG as follows: Comments: EKG was obtained. On my independent interpretation, it showed asinus rhythm with a rate of 84. [place] interval, QRS interval, and QTc intervals were all normal. [place] was borderline at -20. There are specific ST-T wave changes. Prior EKG tracings: available for review Prior: Unchanged (01/24/2023) Treatment and Re-Evaluation :: Because of her cardiomyopathy, patient was only started on small fluid bolus. Patient's blood pressure did drop again to 75 systolic. Patient was given a 1 Lbolus of normal saline. Blood cultures were obtained. Urine culture was obtained. Patient was started on Rocephin. Case will be discussed with the hospitalist for admission. She will admit the patient to PCU. Patient and family understood and were agreeable with plan. All questions were answered. Discharge Plan Dx/Rx/DC Orders Clinical Impression: Urinary tract infection, Hypotension (arterial), CKD (chronic kidney disease) stage 3, GFR 30-59 ml/min Disposition Disposition: Acute Care Hospital [facility] What to do if you have Problems For any increased pain, shortness of breath, bleeding, nausea or vomiting, chestpain, or any unexpected problems, contact your Primary Care Provider. Call [facility] ([phone]) or report to the closest Emergency Room. Call 911 if necessary. 03/11/23 0015 <Electronically signed by Myron Schwiger DO> Cosigner Signature (if applicable): CC: Dr. Vinh Van MD ~ Signed [facility] Work Phone: 1(775) 618-781601-10-2024 History and physical note Author Renata Culver [facility] March 10, 2023 6:20pm Note Date/Time March 10, 2023 5 :06pm [facility] Medical Records Department [address] [place] [address] H&P Exam - Hospitalist 03/10/23 1706 MR#: [id number] Acct: [id number] Name: PRICILA HOOKER Rep #:[id number] : 1945 77 From: Renata Culver MD PCP: Dr. Vinh Van MD Status:AD M IN Location: [place] [id number] HPI - General General Date of Admission: 03/10/23 Date of Service: 03/10/23 Chief Complaint: Hypotension, fatigue, malaise, lightheadedness, dizziness. HPI Narrative The patient is a 77 y/o F w/ PMHx: CKD stage III unclear subtype, Chronic anemia, CAD, HTN, HLD, GERD, Stage IIIc Endometrial CA, Nonischemic Cardiomyopathy, Chronic neuropathy, GERD, Morbid obesity, Former tobacco use whopresents to the [facility] ED on 03/10/23 with history of low blood pressure noticed on day of presentation with recent appointment with a carrier associate with a also noted lower blood pressure of 76/58 with lightheadedness for the last several days worse with positional changes especially sitting and trying to set up although she does state it is worsened with recent diagnosis of cardiomyopathy associate with chemotherapy and radiation with recent chills but no fevers and given onset of the symptoms prompted ED evaluation. She denies any marked urinary symptoms despite her current presentation. She does report poor oral intake. Since ED interventions she notes feeling improved. Workup in the ED included T96, heart rate 72, BP initially 76/58 with most recent repeat 79/60-->following IVFs most recent repeat 133/72, respiratory rate 14, 96% on room air, CBC with WC 8.6, hemoglobin 11.2, MCV 97, platelet 194 without marked shift, BMP with BUN/creatinine 32/1.59, glucose 253, lactic acid 3.5, troponin 10, urinalysis with cloudy appearing urine, specific remedy 1.015, protein 100, glucose 1000, occult blood 50, negative nitrite, leukocyte Estrace 500 with greater than 100 urine RBCs with no bacteria, urine culture pending per ED, blood culture x 2 pending per ED, chest x-ray with no acute cardiopulmonary findings. In the ED patient ministered 1,500 cc (avoided 30 cc/kg secondary to cardiomyopathy history) as well as IV Rocephin. Most recent urine culture noted upon microbiology review 01/24/23 with Klebsiella with resistance to ampicillin and cefazolin otherwise sensitive. [facility] Medical History Benign neoplasm of colon Chest pain Cholecystitis CKD (chronic kidney disease) stage 3, GFR 30-59 ml/min Coronary artery disease Diabetes Dyslipidemia Endometrial cancer Endometrial cancer, FIGO stage IIIC GERD (gastroesophageal reflux disease) History of cancer of uterus Hypercholesteremia Hypertension Hypomagnesemia Neuropathy Nonischemic cardiomyopathy Obesity Pancytopenia Home Medications metformin 500 mg tablet 2 tab PO BID DIABETES #120 tabs 05/06/20 [Rx Last Taken 03/10/23] amitriptyline 50 mg tablet 50 mg PO QHS DEPRESSION 12/23/22 [History Last Taken 03/09/23] atorvastatin 40 mg tablet 40 mg PO QHS CHOLESTEROL 12/23/22 [History Last Taken 03/09/23] dulaglutide 3 mg/0.5 mL subcutaneous pen injector (Trulicity) 3 mg subcut TU DIABETES 12/23/22 [History Last Taken 03/09/23] gabapentin 100 mg capsule 100 mg PO TID NERVE PAIN 12/23/22 [History Last Taken 03/10/23] empagliflozin 10 mg tablet (Jardiance) 10 mg PO DAILY DIABETES #30 tabs 12/29/22 [Rx Last Taken 03/10/23] magnesium chloride 71.5 mg (magnesium chloride) tablet,delayed release (Slow- Mag) 71.5 mg PO BID SUPPLEMENT 12/29/22 [History Last Taken 03/10/23] ondansetron HCl 8 mg tablet 8 mg PO Q12H PRN NAUSEA 12/29/22 [History Last Taken Unknown] aspirin 81 mg tablet,delayed release (Adult Low Dose Aspirin) 81 mg PO DAILY HEART HEALTH 01/24/23 [History Last Taken 03/10/23] acetaminophen 500 mg tablet (Acetaminophen Extra Strength) 500 mg PO Q6H PRN PAIN 03/10/23 [History Last Taken Unknown] glimepiride 4 mg tablet 4 mg PO BID DIABETES 03/10/23 [History Last Taken 03/10/23] silver sulfadiazine 1 % topical cream 1 applic topical DAILY PRN BURN 03/10/23 [History Last Taken 03/10/23] Allergy/AdvReac Type Severity Reaction Status Date / Time No Known Allergies Allergy Verified 03/10/23 14:35 Family History Father Myocardial infarction Mother Heart disease irregular heart rate Colon cancer Surgical History History of total left knee replacement (TKR) (~01/2011) History of total right knee replacement (TKR) (~05/11/11) Hx laparoscopic cholecystectomy Hx of cataract surgery Hx of hysterectomy, total Social History household members: none Smoking Status: Former smoker how long ago did patient quit smokin alcohol intake: never substance use type: does not use ROS ROS Narrative Admission Review of Systems: CONSTITUTIONAL: No weight loss, fever, chills, + weakness or fatigue. HEENT: + Lightheadedness, dizziness. Eyes: No visual loss, blurred vision, double vision or yellow sclerae. Ears, Nose, Throat: No hearing loss, sneezing, congestion, runny nose or sore throat. SKIN: No rash or itching, lesions, wounds. CARDIOVASCULAR: + Lightheadedness, dizziness. No chest pain, chest pressure or chest discomfort, palpitations, edema, orthopnea, syncopal events. RESPIRATORY: No shortness of breath, cough or sputum, wheezing, hemoptysis. GASTROINTESTINAL: + anorexia. No nausea, vomiting or diarrhea, abdominal pain, melena, BRBPR. GENITOURINARY: No dysuria, frequency, urgency or retention. NEUROLOGICAL:+ Lightheadedness, dizziness. No headache, syncope, paralysis, ataxia, numbness or tingling in the extremities, focal weakness, change in bowelor bladder control, seizure. MUSCULOSKELETAL: + muscle, back pain, joint pain or stiffness. HEMATOLOGIC: + anemia. No bleeding or bruising. LYMPHATICS: No enlarged nodes. No history of splenectomy. PSYCHIATRIC: No history of depression or anxiety. ENDOCRINOLOGIC: No reports of sweating, cold or heat intolerance. No polyuria orpolydipsia. ALLERGIES: No history of asthma, hives, eczema or rhinitis. Vital Signs Vital Signs Vital Signs: 03/10/23 14:36 03/10/23 16:02 Temperature 96 F L Temperature Source Temporal Pulse Rate 80 Respiratory Rate 14 Respiratory Effort Normal Non-Labored Respiratory Pattern Normal Blood Pressure 79/60 L Blood Pressure Mean 66 Pulse Ox 96 Oxygen Delivery Method Room Air Weight Weight: 271 lb Body Mass Index (BMI) 42.4 Physical Exam Narrative Physical Examination: General: Awake, alert, oriented x 3 and cooperative, seated upright in the ED bed, fatigued but notes feeling significantly improved since initial ED arrival. Skin: Normal color, normal turgor, no icterus, no cyanosis except occasional staged ecchymoses. HEENT: AT/NC, EOMI, PERRLA, dry MM, no carotid bruits or JVD noted. Lungs: Diminished, greater bases, proper effort, no rales, ronchi or wheezing. Heart: Regular rate and rhythm; no gallop, rub audible. Abdomen: Soft, morbidly obese, NTTP, ND, mildly hyperactive BS, no appreciated HSM however habitus makes evaluation difficult. Extremities: No cyanosis, no clubbing, mild peripheral ankle not markedly pitting edema. Neurological: Patient awake, alert, oriented as noted, cognitive function intact; pupils equally reactive to light and accommodation, cranial nerves grossly normal, moving all 4 extremities, no focal deficits, strength moderatelyto severely globally decreased secondary to acute presentation and underlying comorbidities. Psychiatric: Affect appears flat, fatigued but notes feeling somewhat improved, no acute evidence of depressive or anxiety feelings. Results Lab / Micro Data 03/10/23 15:03 03/10/23 15:03 Labs: Laboratory Results - last 24 hr 03/10/23 15:03: WBC 8.6, RBC 3.64 L, Hgb 11.2 L, Hct 35.3 L, MCV 97.0, MCH 30.8,MCHC 31.7 L, RDW Std Deviation 51.4 H, RDW Coeff of [place] 14.4, Plt Count 194, MPV10.6, Immature Gran % (Auto) 0.300, Neut % (Auto) 69.8, Lymph % (Auto) 15.4 L, [place] % (Auto) 7.3, Eos % (Auto) 6.5 H, Baso % (Auto) 0.7, Absolute Neuts (auto) 6.0, Absolute Lymphs (auto) 1.33, Nucleated RBC % 0, Sodium 136, Potassium 4.0, Chloride 103, Carbon Dioxide 25.0, Anion Gap 8, BUN 32 H, Creatinine 1.59 H, Estim Creat Clear Calc 40.29, Est GFR (MDRD) Af Amer 41 L, Est GFR (MDRD) Non-Af 33 L, BUN/Creatinine Ratio 20.1 H, Glucose 253 H, Calcium 9.5, Troponin I High Sens 10 03/10/23 15:45: Lactic Acid 3.5 H* 03/10/23 15:55: Urine Color Yellow, Urine Clarity Cloudy, Urine pH 6.0, Ur Specific [place] 1.015, Urine Protein 100 H, Urine Glucose (UA) 1000 H, Urine Ketones Negative, Urine Occult Blood 50 H, Urine Nitrite Negative, Urine Bilirubin 1 H, Urine Urobilinogen Normal, Ur Leukocyte Esterase 500 H, Urine RBC0 SEEN, Urine WBC >100 SEEN, Ur Squamous Epith Cells 0 SEEN, Urine Bacteria 0 SEEN, Urine Mucus 0 SEEN Imagaing Radiology Impression Chest X-Ray 03/10/23 15:54 IMPRESSION: No acute cardiopulmonary abnormality. Electronically Signed: Keith Pandey MD at 16:19 EST Reading Location ID and State: [address] [place] [address] Tel , Service support , Assessment & Plan Assessment/Plan (1) Urinary tract infection: (2) Hypotension (arterial): PLAN: Plan The patient is a 77 y/o F w/ PMHx: CKD stage III unclear subtype, Chronic anemia, CAD, HTN, HLD, GERD, Stage IIIc Endometrial CA, Nonischemic Cardiomyopathy, Chronic neuropathy, GERD, Morbid obesity, Former tobacco use whopresents to the [facility] ED on 03/10/23 with history of low blood pressure noticed on day of presentation with recent appointment with a carrier associate with a also noted lower blood pressure of 76/58 with lightheadedness for the last several days worse with positional changes especially sitting and trying to set up although she does state it is worsened with recent diagnosis of cardiomyopathy associate with chemotherapy and radiation with recent chills but no fevers and given onset of the symptoms prompted ED evaluation. She denies any marked urinary symptoms despite her current presentation. #1. Acute Complicate Urinary Tract Infection with transient Hypotension, Lacticacidosis: Will admit to PCU, UA upon ED evaluation remarkable, pending UCx, continue judicious IVFs, monitor I/Os, continue IV Rocephin w/ transition as able pending sensitivities and speciation. Bld cx x 2 obtained in the ED. PT/OT/CM consultation for discharge planning. Fall precautions. #2. Stage IIIc Endometrial CA: Patient status post previous hysterectomy on adjuvant therapy with carboplatin, paclitaxel and pembrolizumab. As noted patient unfortunately with cardiomyopathy associated with her cancer agents. Encouraged continued outpatient follow-up and assessment with her oncology team [facility]. Mag and Phos requested. #3. Chronic Kidney Disease Stage III, unclear subtype with possible acute renalinsufficiency component but unclear as need further trending: Admission BUN/Cr 31/1.59, baseline renal function appears primarily 1.1-1.6 but again this was possibly during an acute phase with most recent 01/26/2023 creatinine 1.18 this could be a component of acute renal insufficiency, repeat BMP in AM. #4. Nonischemic cardiomyopathy: Will continue aspirin, statin, holding patient home Coreg given hypotension, add back once appropriate. Judiciously hydrating given her hypotension. Most recent echocardiogram noted 12/24/2022 with mildly dilated LV, LV systolic function 45?5%, LV diastolic function not visualized, RVnormal size, RV systolic function normal, no significant valvular abnormality, visualized aorta dilated with maximal dimension 4.1 cm obtained from [facility]. Patient did have stress testing 12/28/2022 which was negative for inducible ischemia with only noted abnormal EF. #5. Nonobstructive CAD: We will continue patient home aspirin, statin, holding patient Coreg given presentation as noted, add back once appropriate. #6. Diabetes mellitus type II with chronic neuropathy: Hold oral home regimen, ADA diet, accu checks w/ ISS. #7. Hypertension: Given presentation holding all hypertensive regimen given lowblood pressure, add back once clinically appropriate. #8. Hyperlipidemia: We will continue patient on statin therapy. #9. Morbid Obesity: Weight loss and lifestyle changes encouraged. #10. Chronic anemia, normocytic: Admission hemoglobin 11.2, MCV 97, baseline hemoglobin previously 01/25/2023 8.4, likely related with underlying cancer and cancer treatments, unclear if transfusions in the interim, will trend CBC. #11. Former tobacco use: Encourage continued tobacco cessation. #12. DVT prophylaxis: Heparin. #13. CODE status: Patient DEONTE is her Sister Milagro and living will is currently in place. Discussed CODE status at length including difference betweenFULL code, DNR-CCA and DNR-CC status. Following discussions about the differences in these status, requested Full Code status. Advanced Care Planning Face to Face Time: 16 minutes. Charges/Coding Visit Charges Inpatient E&M: 76466 Init Hosp L3 Procedures Hospitalists Procedures: 30718 Advncd Care Plan 30 Min 03/10/23 1820 <Electronically signed by Renata Culver MD> Cosigner Signature (if applicable): CC: Dr. Renata Culver MD; Dr. 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 HPI: The patient is a 77-year-old female with a past medical history significant for hypertension, hyperlipidemia, GERD, type 2 diabetes (diagnosed about age 60; neuropathy), total knee replacement, former smoker and recent diagnosis of endometrial cancer. SURGERY & DATE: 07/24/2022 - Exam under anesthesia, total laparoscopic hysterectomy, bilateral salpingo-oophorectomy, sentinel lymph node mapping with excision of bilateral pelvic sentinel lymph nodes, and extensive lysis of adhesions. PATHOLOGY: A. Odum lymph node, right, biopsy: - Isolated tumor cells involving 1 of 2 lymph nodes; see comment. B. 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 C. Uterus with cervix, right and left fallopian tubes, and ovaries, hysterectomy and bilateral salpingo-oophorectomy: - Cervix: No significant pathologic abnormality. - Endomyometrium: Endometrial endometrioid carcinoma with squamous differentiation, FIGO grade 2, invading outer myometrium (18 mm out of 19 mm, 95%) and showing extensive/multifocal lymphovascular invasion and the microcystic, elongated, and fragmented (MELF) pattern of invasion; see comment and synoptic report. - Serosa: No significant pathologic abnormality. - Bilateral ovaries: Adhesions. - Right fallopian tube: Hematosalpinx, no definitive carcinoma. - Left fallopian tube: Metastatic carcinoma. Mismatch repair (MMR) interpretation: Deficient mismatch repair (dMMR) Results Mismatch Repair Protein Immunohistochemistry Results: MLH1: Loss of Nuclear Expression (subclonal/focal loss) PMS2: Loss of Nuclear Expression (subclonal/focal loss) MSH2: Normal/Intact Nuclear Expression MSH6: Normal/Intact Nuclear Expression IMAGING: CT ABD/PELVIS: 06/16/2022 IMPRESSION: 1. Findings compatible with cystitis. 2. Approximately 8.5 cm tubular/serpiginous cystic lesion in the right adnexal region suspect for hydrosalpinx though right ovarian cystic lesion not excluded with certainty. Mild infiltration of thesurrounding fat raises suspicion for the possibility of superinfection. A few small bowel loops in the pelvis appear tethered around this right adnexal cystic lesion and a short segment of sigmoid colon abuts the posterior aspect of this right adnexal lesion. 3. Small volume pelvic free fluid. 4. Heterogeneous appearance of the uterus potentially related to fibroids. Further evaluation with dedicated pelvic ultrasound would be of value. CXR: 07/22/2022 IMPRESSION: Left basilar mild atelectasis. TUMOR BOARD: Management Options: -Recommend adjuvant treatment with systemic therapy, carbo/taxol +/- pembrolizumab -Referral to genetics Per initial consultation here: No vaginal discharge or bleeding. Bowels moving regularly. Good appetite. Pain is gone. Subjectively voiding to completion. Fingertip and toes numb. Had it approximately 3 years. Orthostasis if stands quickly. Balance has been "off" for about 6 months. Used to come in from [facility]. Uses cane and walker in the home. Lives in basement of sister's house. Capable of all ADLs independently. Uses shower chair. She and sister share cooking. Drives. Low back pain can limit her walking--symptoms are consistent with spinal stenosis. Current therapy: 1) Paclitaxel and carboplatin and pembrolizumab. First 2 cycles without pembrolizumab. Had EGD. Results noted. ?Gastroparesis. Was admitted to [facility] 01/24 ago for urosepsis. Admitted 2 days. Glimepiride was held. Completed antibiotic Wednesday. Had no urinary symptoms. Family found her at the table acting disoriented. Previously saw carrier associate at [facility] for reduced EF. Started on Jaurdiance. Presents for ongoing oncologic management. Interim history: On Wednesday she was standing at the sink and she had a syncopal episode. Does not recall having any palpitations prior to that. She was on the floor for about an hour. Has hematoma left parietal area. No other injury. Occasional orthostasis if stands too quickly, but has not had any episodes since Wednesday. She has been eating and drinking well. No diarrhea. Taking Slow-Mg BID. Blood sugars are staying in the 140-180 range. Tingling in fingers stable. Feet neuropathy stable. PMH, medications and allergies personally reviewed by me today. Any changes documented in appropriate section. PHYSICAL EXAM: Vitals: Blood pressure 105/64, pulse 88, temperature 36.4 C (97.5 F), weight 125.4 kg (276 lb 8 oz), SpO2 93%. Well-appearing and in no acute distress. Raised tender hematoma left parietal scalp. No bleeding. EYES: Sclerae are anicteric bilaterally. LYMPHATIC: There is no palpable cervical or supraclavicular, adenopathy. RESPIRATORY: Inspiratory breath sounds are of diminished intensity in all thompson. No rales, wheezesor rhonchi. CARDIOVASCULAR: Rhythm is regular. ABDOMEN: The abdomen is nondistended. No tenderness. LABS: Component Latest Ref Rng & Units 02/18/2023 WBC 3.70 - 11.00 k/uL 4.98 RBC 3.90 - 5.20 m/uL 3.17 (L) Hemoglobin 11.5 - 15.5 g/dL 10.2 (L) Hematocrit 36.0 - 46.0 % 30.9 (L) MCV 80.0 - 100.0 fL 97.5 MCH 26.0 - 34.0 pg 32.2 MCHC 30.5 - 36.0 g/dL 33.0 RDW-CV 11.5 - 15.0 % 14.5 Platelet Count 150 - 400 k/uL 159 MPV 9.0 - 12.7 fL 9.6 Neut% % 55.3 Abs Neut (ANC) 1.45 - 7.50 k/uL 2.75 Lymph% % 29.1 Abs Lymph 1.00 - 4.00 k/uL 1.45 Montgomery% % 11.6 Abs Montgomery <0.87 k/uL 0.58 Eosin% % 3.2 Abs Eosin <0.46 k/uL 0.16 Baso% % 0.4 Abs Baso <0.11 k/uL <0.03 Immature Gran % % 0.4 IMMATURE GRANS (ABS) <0.10 k/uL <0.03 NRBC /100 WBC 0.0 Absolute nRBC <0.01 k/uL <0.01 DTYPE Auto Protein, Total 6.3 - 8.0 g/dL 6.4 Albumin 3.9 - 4.9 g/dL 3.8 (L) Calcium 8.5 - 10.2 mg/dL 9.5 Bilirubin, Total 0.2 - 1.3 mg/dL 0.3 Alkaline Phosphatase 34 - 123 U/L 70 AST 13 - 35 U/L 12 (L) ALT 7 - 38 U/L 14 Glucose 74 - 99 mg/dL 200 (H) BUN 7 - 21 mg/dL 35 (H) Creatinine 0.58 - 0.96 mg/dL 1.16 (H) Sodium 136 - 144 mmol/L 139 Potassium 3.7 - 5.1 mmol/L 4.4 Chloride 97 - 105 mmol/L 102 CO2 22 - 30 mmol/L 28 Anion Gap 9 - 18 mmol/L 9 eGFR >=60 mL/min/1.73m 49 (L) Magnesium 1.7 - 2.3 mg/dL 1.3 (L) ASSESSMENT/PLAN: (C54.1) Endometrial cancer (HCC) (primary encounter diagnosis) (G62.9) Neuropathy -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 -KPS is 60%. -Significant comorbid conditions including type 2 diabetes with pre-existing sensory neuropathy. She has impaired gait and mobility from spinal stenosis as well. Nonetheless she stood to benefit significantly from adjuvant therapy. -Adjuvant therapy with carboplatin, paclitaxel and pembrolizumab based on the reported results of the NRG-GY018 trial. -Pembrolizumab was added with cycle #3. -Received 5 cycles. Therapy held following due to worsening neuropathy and general decline. -Completed sixth cycle of carboplatin and Taxol without pembrolizumab. Neuropathy no worse. -Was diagnosed with macular edema. Symptoms improving. She is to start bevacizumab. -Has reduced EF without evidence of ischemia on stress test. -Syncope. Possible paroxysmal A-fib in the setting of chronic hypomagnesemia. Plan: -Repeat EKG today. -Check troponin and BNP. -IV magnesium infusion today. -Hold lisinopril. Continue carvedilol. -Will contact [facility] to see if can workup for possible immunotherapy induced myocarditis and order ambulatory heart monitor. -Follow-up with PCP for management of diabetes. -Genetics. Portions of this documentation were copied and pasted from previous office visit notes in order to provide a cohesive continuity of the history. The note has been reviewed and edited and updated as necessary. Nora Branham DO documented in this encounterBarnesville Hospital12-08-2023 Miscellaneous Notes* Telephone Encounter - Kizzy Bruner RN - 02/05/2023 1:44 PM EST RADIATION POST TREATMENT CALL BACK Today's date: February 05, 2023 Patient's final treatment on 01/28/2023. Treatment site Vaginal cuff Called patient to follow-up on symptom management and follow-up appointments. Spoke with Pricila. Focused Toxicity Assessment: Pelvis--Female Pain: None. 0 on a scale of 0 to 10. Fatigue: increased fatigue over baseline but not altering normal activities Appetite: increased appetite Nausea: None Vomiting: None Erythema/Hyperpigmentation:none Desquamation:none Rash:none Skin Care: None Skin Sensation: Within Normal Limits Bowel Function: normal bowel movements Bladder Function: no problems Vaginal Drainage/Bleeding: No Sexually Active: No Dilator Teaching: no Psychosocial Risk Factors: None Does the patient need interventions, referrals or same day appointment:No Reinforced CURRENT treatment education based on current and anticipated symptoms. Patient instructed to contact Dr. Díaz's office with questions or concerns or Radiation Oncology Fellow Business Quality Assurance Analyst after 5pm and on weekends for urgent issues. Patient verbalized understanding of when to seek medical attention and after hours number protocol. Follow up appointment: Reminded patient of virtual visit on 03/12/2023 for toxicity check with Kizzy JOHNSON RN Kizzy JOHNSON, RN documented in this encounterBarnesville Hospital12-05-2023 History of Past illness Narrative* Problem Noted Date Diagnosed Date Resolved Date Pancytopenia 02/02/2023 06/08/2023 Stage 3a chronic kidney disease 12/15/2022 06/08/2023 Platelets decreased 11/03/2022 06/08/19 24 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 Internal hemorrhoids without mention of complication 12/28/2007 08/15/2010 External hemorrhoids without mention of complication 12/28/2007 08/15/2010 Diabetes mellitus type 2, co ntrolled, without complications 07/13/2006 07/09/2015 documented as of this encounter (statuses as of 06/08/2023) [facility] History of Past illness Narrative* Problem Noted Date Diagnosed Date Resolved Date Pancytopenia 02/02/2023 06/08/2023 Stage 3a chronic kidney disease 12/15/2022 06/08/2023 Platelets decreased 11/03/2022 06/08/19 24 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 Internal hemorrhoids without mention of complication 12/28/2007 08/15/2010 External hemorrhoids without mention of complication 12/28/2007 08/15/2010 Diabetes mellitus type 2, co ntrolled, without complications 07/13/2006 07/09/2015 documented as of this encounter (statuses as of 06/09/2023) [facility] History of Past illness Narrative* Problem Noted Date Diagnosed Date Resolved Date Pancytopenia 02/02/2023 06/08/2023 Stage 3a chronic kidney disease 12/15/2022 06/08/2023 Platelets decreased 11/03/2022 06/08/19 24 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 Internal hemorrhoids without mention of complication 12/28/2007 08/15/2010 External hemorrhoids without mention of complication 12/28/2007 08/15/2010 Diabetes mellitus type 2, co ntrolled, without complications 07/13/2006 07/09/2015 documented as of this encounter (statuses as of 06/10/2023) [facility] History of Past illness Narrative* Problem Noted Date Diagnosed Date Resolved Date Pancytopenia 02/02/2023 06/08/2023 Stage 3a chronic kidney disease 12/15/2022 06/08/2023 Platelets decreased 11/03/2022 06/08/19 24 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 Internal hemorrhoids without mention of complication 12/28/2007 08/15/2010 External hemorrhoids without mention of complication 12/28/2007 08/15/2010 Diabetes mellitus type 2, co ntrolled, without complications 07/13/2006 07/09/2015 documented as of this encounter (statuses as of 06/19/2023) [facility]-05-[facility] Miscellaneous Notes* Telephone Encounter - Vianey Owusu LISW - 02/02/2023 10:53 AM EST SOCIAL WORK FOLLOW UP NOTE: [facility] Date of service: February 02, 2023 Pricila Hooker is being seen for a follow up social work visit. Today's visit includes: patient and granddaughter TOPICS ADDRESSED: SW met with pt this date to discuss the renewal application for continued [employer] assistance. Pt signed application and SW obtained physician's signature as well. SW successfully faxed this date and sent to internal scanning. SW to update this note with determination is received. 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 HPI: The patient is a 77-year-old female with a past medical history significant for hypertension, hyperlipidemia, GERD, type 2 diabetes (diagnosed about age 60; neuropathy), total knee replacement, former smoker and recent diagnosis of endometrial cancer. SURGERY & DATE: 07/24/2022 - Exam under anesthesia, total laparoscopic hysterectomy, bilateral salpingo-oophorectomy, sentinel lymph node mapping with excision of bilateral pelvic sentinel lymph nodes, and extensive lysis of adhesions. PATHOLOGY: A. Odum lymph node, right, biopsy: - Isolated tumor cells involving 1 of 2 lymph nodes; see comment. B. 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 C. Uterus with cervix, right and left fallopian tubes, and ovaries, hysterectomy and bilateral salpingo-oophorectomy: - Cervix: No significant pathologic abnormality. - Endomyometrium: Endometrial endometrioid carcinoma with squamous differentiation, FIGO grade 2, invading outer myometrium (18 mm out of 19 mm, 95%) and showing extensive/multifocal lymphovascular invasion and the microcystic, elongated, and fragmented (MELF) pattern of invasion; see comment and synoptic report. - Serosa: No significant pathologic abnormality. - Bilateral ovaries: Adhesions. - Right fallopian tube: Hematosalpinx, no definitive carcinoma. - Left fallopian tube: Metastatic carcinoma. Mismatch repair (MMR) interpretation: Deficient mismatch repair (dMMR) Results Mismatch Repair Protein Immunohistochemistry Results: MLH1: Loss of Nuclear Expression (subclonal/focal loss) PMS2: Loss of Nuclear Expression (subclonal/focal loss) MSH2: Normal/Intact Nuclear Expression MSH6: Normal/Intact Nuclear Expression IMAGING: CT ABD/PELVIS: 06/16/2022 IMPRESSION: 1. Findings compatible with cystitis. 2. Approximately 8.5 cm tubular/serpiginous cystic lesion in the right adnexal region suspect for hydrosalpinx though right ovarian cystic lesion not excluded with certainty. Mild infiltration of thesurrounding fat raises suspicion for the possibility of superinfection. A few small bowel loops in the pelvis appear tethered around this right adnexal cystic lesion and a short segment of sigmoid colon abuts the posterior aspect of this right adnexal lesion. 3. Small volume pelvic free fluid. 4. Heterogeneous appearance of the uterus potentially related to fibroids. Further evaluation with dedicated pelvic ultrasound would be of value. CXR: 07/22/2022 IMPRESSION: Left basilar mild atelectasis. TUMOR BOARD: Management Options: -Recommend adjuvant treatment with systemic therapy, carbo/taxol +/- pembrolizumab -Referral to genetics Per initial consultation here: No vaginal discharge or bleeding. Bowels moving regularly. Good appetite. Pain is gone. Subjectively voiding to completion. Fingertip and toes numb. Had it approximately 3 years. Orthostasis if stands quickly. Balance has been "off" for about 6 months. Used WC to come in from [facility]. Uses cane and walker in the home. Lives in basement of sister's house. Capable of all ADLs independently. Uses shower chair. She and sister share cooking. Drives. Low back pain can limit her walking--symptoms are consistent with spinal stenosis. Current therapy: 1) Paclitaxel and carboplatin and pembrolizumab. First 2 cycles without pembrolizumab. Had EGD. Results noted. ?Gastroparesis. Presents for ongoing oncologic management. Interim history: Was admitted to [facility] last week for urosepsis. Admitted 2 days. Glimepiride was held. Completed antibiotic Wednesday. Had no urinary symptoms. Family found her at the table acting disoriented. Blood sugars now in 140-180 ranges. Previously saw carrier associate at [facility] for reduced EF. Started on Jaurdiance. Occasional orthostasis if stands too quickly. Appetite is better and hasn't had post-prandial vomiting. Stopped omeprazole and Mobic. No diarrhea. Vision improving. Hasn't started bevacizumab. Tingling in fingers stable. Feet neuropathy stable. PMH, medications and allergies personally reviewed by me today. Any changes documented in appropriate section. PHYSICAL EXAM: Vitals: Blood pressure 99/64, pulse 73, temperature 36.4 C (97.5 F), temperature source Temporal, weight 125.4 kg (276 lb 8 oz), SpO2 93%. Better-appearing and in no acute distress. EYES: Sclerae are anicteric bilaterally. No conjunctival injection. LYMPHATIC: There is no palpable cervical or supraclavicular, adenopathy. RESPIRATORY: Inspiratory breath sounds are of diminished intensity in all thompson. No rales, wheezesor rhonchi. CARDIOVASCULAR: Rhythm is regular and tachycardic. ABDOMEN: The abdomen is nondistended. No tenderness. LABS: Component Latest Ref Rng & Units 02/02/2023 WBC 3.70 - 11.00 k/uL 4.52 RBC 3.90 - 5.20 m/uL 2.88 (L) Hemoglobin 11.5 - 15.5 g/dL 9.4 (L) Hematocrit 36.0 - 46.0 % 27.9 (L) MCV 80.0 - 100.0 fL 96.9 MCH 26.0 - 34.0 pg 32.6 MCHC 30.5 - 36.0 g/dL 33.7 RDW-CV 11.5 - 15.0 % 14.0 Platelet Count 150 - 400 k/uL 115 (L) MPV 9.0 - 12.7 fL 9.3 Neut% % 66.7 Abs Neut (ANC) 1.45 - 7.50 k/uL 3.01 Lymph% % 20.1 Abs Lymph 1.00 - 4.00 k/uL 0.91 (L) Montgomery% % 10.6 Abs Montgomery <0.87 k/uL 0.48 Eosin% % 1.8 Abs Eosin <0.46 k/uL 0.08 Baso% % 0.4 Abs Baso <0.11 k/uL <0.03 Immature Gran % % 0.4 IMMATURE GRANS (ABS) <0.10 k/uL <0.03 NRBC /100 WBC 0.0 Absolute nRBC <0.01 k/uL <0.01 DTYPE Auto ASSESSMENT/PLAN: (C54.1) Endometrial cancer (HCC) (primary encounter diagnosis) (G62.9) Neuropathy -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 -Her KPS is 60%. -Significant comorbid conditions including type 2 diabetes with pre-existing sensory neuropathy. She had impaired gait and mobility from spinal stenosis as well. Nonetheless she stood to benefit significantly from adjuvant therapy. -Adjuvant therapy with carboplatin, paclitaxel and pembrolizumab based on the recently reported results of the NRG-GY018 trial. -Pembrolizumab was added with cycle #3. -Received 5 cycles. Therapy held following due to worsening neuropathy and general decline. -Completed sixth cycle of carboplatin and Taxol without pembrolizumab. Neuropathy no worse. -Was diagnosed with macular edema. Symptoms improving. She is to start bevacizumab. -Has reduced EF without evidence of ischemia on stress test. -Discussed with her today that would like to continue pembrolizumab but need to obtain cardiology opinion from [facility] regarding the possibility of and/or monitoring for immunotherapy induced cardiomyopathy going forward. Plan: -Referral to cardiology [facility]. -Potentially resume pembrolizumab in 3 weeks. -Follow-up with PCP for management of diabetes. -Genetics. Portions of this documentation were copied and pasted from previous office visit notes in order to provide a cohesive continuity of the history. The note has been reviewed and edited and updated as necessary. I spent a total of 25 minutes on the date of the service which included preparing to see the patient, [id number] patient care, completing clinical documentation, obtaining and/or reviewing separately obtained history, performing a medically appropriate examination, counseling and educating the pat ient/family/caregiver, ordering medications, tests, or procedures, communicating with other HCPs (not separately reported), and communicating results to the patient/family/caregiver. Nora Branham DO documented in this encounterBarnesville Hospital12-05-2023 History of Present illness Narrative* Milagro Payne RN - 02/02/2023 9:24 AM EST Patient is here for IVAD port flush/blood draw. IVAD is located in left upper chest. Site cleansed with Chloraprep IVAD accessed with a #20 gauge 3/4" non-coring Gripper needle Flush with 5cc's Normal Saline. Blood Return: Good. 10 cc's blood aspirated and discarded. Blood drawn for CBC, CMP, MAG, and others. Flushed with: 20 ml Normal Saline and 5 ml Heparin Lock Flush. Non-coring needle removed. Paper tape applied to puncture site. Site negative for redness, edema or tenderness. Patient tolerated procedure well. Milagro Payne RN documented in this encounterBarn[facility]12-04-2023 History of Present illness Narrative* Rosanne Díaz MD - 02/01/2023 12:00 AM EST PRICILA HOOKER [id number] 02/01/2023 [facility] Department of Radiation Oncology [facility] RADIATION ONCOLOGY: COMPLETION NOTE DATE OF SIMULATION: 01/19/2023 DATES OF TREATMENT: 01/19/2023 to 01/28/2023 TREATMENT MACHINE: BRACHYTHERAPY HDR TREATMENT AREA: Vaginal cuff DIAGNOSIS: 77-year-old female with Malignant neoplasm of endometrium, clinical stage IIIC CONCURRENT THERAPY: None DELIVERED DOSE: The Vaginal cuff PTV received a total dose of 2100 cGy in 3 fractions at 700 cGy/fraction prescribed to Depth at 0.5 cm using Ir-192 with HDR Intracavitary technique. ELAPSED DAYS: 13 TOLERANCE: At last on-treatment visit, her toxicity was summarized as: The patient tolerated the procedure well and was returned to the patient waiting room in satisfactory condition. RESPONSE: To be assessed in outpatient clinic. REMARKS: Resident Physician Melanie Seaman M.D. Staff Physician Rosanne Díaz M.D Electronically Signed cc: Vinh Van [address] [place] [address] Memo Leigh [id number] [facility] [id number] documented in this encounterBarnesville Hospital12-04-2023 History of Present illness Narrative* Rosanne Díaz MD - 02/01/2023 12:00 AM EST [facility] Department of Radiation Oncology [facility] HDR BRACHYTHERAPY PROCEDURE NOTE Name: PRICILA HOOKER Date of Service: 02/01/2023 Treatment start: See corresponding BTR Treatment finish: See corresponding BTR Referring Physician: Dr. Memo Leigh Surgeons: Dr. Rosanne Díaz and Dr. Jose Manuel Qureshi DIAGNOSIS: 77 year old female with FIGO stage IIIC1, grade 2, MMR-deficient endometrioid endometrial adenocarcinoma s/p TLH-BSO with bilateral SLNB (07/24/2022) with final pathology showing 95%NV, extensive LVSI and MELF, left fallopian tube involvement, and 1/4 + LN (left) and ITCs in 1/2 LN (right) s/p carbo/taxol/pembrolizumab x 4c (09/03/22-current) with planned radiation delayed due to toxicities from systemic therapy. TREATMENT MACHINE: ecoInsightn-HDR V2 Ir-192 PROCEDURE: Transvaginal Delclos Cylinder Application for HDRB TREATMENT SITE: Vaginal vault ANESTHESIA: None required DOSE PRESCRIBED: 2100cGy, 700cGy/fx, 3fx, AL=5cm, depth=0.5cm CUMULATIVE DOSE DELIVERED: 2100cGy FRACTION NUMBER: 3 DESCRIPTION: The patient was brought to the brachytherapy treatment room and placed on the treatment table in the lithotomy position. A Delclos vaginal cylinder, diameter = 3.0 cm, was inserted to the appropriate depth. The cylinder tandem was then fixed in position with a baseplate device. The cylinder was then connected by catheter to the faceplate of the HDR device. Following dose fraction #3,delivering 700cGy, at depth 0.5cm, perpendicular to the cylinder surface, the connecting catheter was removed followed by removal of the baseplate system and cylinder without incident. The patient tolerated the procedure well and was returned to the patient waiting room in satisfactory condition. COMPLICATIONS: None BLOOD LOSS: <2 mls RADIATION SURVEY FOLLOWING BRACHYTHERAPY: Satisfactory. REMARKS: None Electronically Signed Rosanne Díaz MD Radiation Oncology 31:56 PM documented in this encounterBarnesville Hospital11-30-2023 History of Present illness Narrative* Rosanne Díaz MD - 01/28/2023 12:00 AM EST [facility] Department of Radiation Oncology [facility] HDR BRACHYTHERAPY PROCEDURE NOTE Name: HOOKERNADIA ORNELASREZA Myles Date of Service: 01/28/2023 Treatment start: See corresponding BTR Treatment finish: See corresponding BTR Referring Physician: Dr. Memo Leigh Surgeons: Dr. Rosanne Díaz and Dr. Jose Manuel Qureshi DIAGNOSIS: 77 year old female with FIGO stage IIIC1, grade 2, MMR-deficient endometrioid endometrial adenocarcinoma s/p TLH-BSO with bilateral SLNB (07/24/2022) with final pathology showing 95%NV, extensive LVSI and MELF, left fallopian tube involvement, and 1/4 + LN (left) and ITCs in 1/2 LN (right) s/p carbo/taxol/pembrolizumab x 4c (09/03/22-current) with planned radiation delayed due to toxicities from systemic therapy. TREATMENT MACHINE: ecoInsightn-HDR V2 Ir-192 PROCEDURE: Transvaginal Delclos Cylinder Application for HDRB TREATMENT SITE: Vaginal vault ANESTHESIA: None required DOSE PRESCRIBED: 2100cGy, 700cGy/fx, 3fx, AL=5cm, depth=0.5cm CUMULATIVE DOSE DELIVERED: 1400cGy FRACTION NUMBER: 2 DESCRIPTION: The patient was brought to the brachytherapy treatment room and placed on the treatment table in the lithotomy position. A Delclos vaginal cylinder, diameter = 3.0 cm, was inserted to the appropriate depth. The cylinder tandem was then fixed in position with a baseplate device. The cylinder was then connected by catheter to the faceplate of the HDR device. Following dose fraction #2,delivering 700cGy, at depth 0.5cm, perpendicular to the cylinder surface, the connecting catheter was removed followed by removal of the baseplate system and cylinder without incident. The patient tolerated the procedure well and was returned to the patient waiting room in satisfactory condition. COMPLICATIONS: None BLOOD LOSS: <2 mls RADIATION SURVEY FOLLOWING BRACHYTHERAPY: Satisfactory. REMARKS: None Electronically Signed Rosanne Díaz MD Radiation Oncology 0:52 AM documented in this encounterBarnesville Hospital11-27-2023 Progress note Author [facility] January 25, 2023 12:20pm Note Date/Time January 25, 2023 9:14am [facility] Medical Records Department [address] [place] [address] Progress Note - Hospitalist 01/25/23904 MR#: [id number] Acct: [id number] Name: PRICILA HOOKER Rep #:[id number] : 1945 77 From: Georgia Romero MD PCP: Dr. Vinh Van MD Status:AD M IN Location: [facility] [id number] Reason for Visit Reason for Visit: Diagnoses Urinary tract infection, site not specified (01/24/23) Subjective Subjective Patient feeling much better today compared to yesterday, mental status improving Objective Data Objective Data Vital Signs: Vital Signs Temp Pulse Resp BP Pulse Ox O2 Del Method O2 Flow Rate 98.4 F 103 H 16 119/61 92 Room Air 2 01/25/23 09:00 01/25/23 09:00 01/25/23 09:00 01/25/23 09:00 01/25/23 09:00 01/25/23 09:00 01/25/23 02:37 Oxygen Flow Rate (L/min) 2 Oxygen Delivery Method Room Air Weight: 124.919 kg Body Mass Index (BMI) 41.8 Intake & Output: Intake and Output for Last 24 Hours 01/23/23 01/24/23 01/25/23 23:59 23:59 23:59 Intake Total 1050 / 1050 50 / 50 Balance 1050 / 1050 50 / 50 Lab / Micro Data 01/25/23 06:20 01/25/23 06:20 Labs: Laboratory Results - last 24 hr 01/24/23 14:42: WBC 4.0 L, RBC 2.99 L, Hgb 9.3 L, Hct 30.0 L, MCV 100.3 H, MCH 31.1, MCHC 31.0 L, RDW Std Deviation 48.8 H, RDW Coeff of Casper 13.2, Plt Count 102 L, MPV 9.8, Immature Gran % (Auto) 0.200, Neut % (Auto) 79.7 H, Lymph % (Auto) 11.7 L, Montgomery % (Auto) 7.2, Eos % (Auto) 1.0, Baso % (Auto) 0.2, Absolute Neuts (auto) 3.2, Absolute Lymphs (auto) 0.47 L, Nucleated RBC % 0, DifferentialComment SCANNED, Diff Path Review June, Sodium 136, Potassium 5.1, Chloride 103, Carbon Dioxide 28.0, Anion Gap 5, BUN 28 H, Creatinine 1.69 H, Estim Creat Clear Calc 30.15, Est GFR (MDRD) Af Amer 38 L, Est GFR (MDRD) Non-Af 31 L, BUN/Creatinine Ratio 16.6, Glucose 295 H, Lactic Acid 3.0 H*, Calcium 8.3 L, Magnesium 1.4 L, Troponin I High Sens 9 01/24/23 15:58: Urine Color Yellow, Urine Clarity Sl. Cloudy, Urine pH 6.0, Ur Specific [place] 1.015, Urine Protein 30 H, Urine Glucose (UA) 1000 H, Urine Ketones Negative, Urine Occult Blood 10 H, Urine Nitrite Negative, Urine Bilirubin Negative, Urine Urobilinogen Normal, Ur Leukocyte Esterase 100 H, Urine RBC 0-5 SEEN, Urine WBC 25-50 SEEN, Ur Squamous Epith Cells 0-5 SEEN, Urine Bacteria 2+, Urine Mucus 0 SEEN 01/24/23 19:32: Lactic Acid 1.7 01/24/23 22:57: POC Glucose 143 H 01/25/23 06:15: POC Glucose 160 H 01/25/23 06:20: WBC 4.6, RBC 2.65 L, Hgb 8.4 L, Hct 26.5 L, MCV 100.0 H, MCH 31.7, MCHC 31.7 L, RDW Std Deviation 49.6 H, RDW Coeff of Casper 13.4, Plt Count 95L, MPV 10.5, Immature Gran % (Auto) 0.200, Neut % (Auto) 68.3, Lymph % (Auto) 16.0 L, Montgomery % (Auto) 13.6 H, Eos % (Auto) 1.5, Baso % (Auto) 0.4, Absolute Neuts (auto) 3.1, Absolute Lymphs (auto) 0.73 L, Nucleated RBC % 0, PT 14.8, INR1.2, Sodium 136, Potassium 4.2, Chloride 105, Carbon Dioxide 26.0, Anion Gap 5, BUN 27 H, Creatinine 1.46 H, Estim Creat Clear Calc 32.55, Est GFR (MDRD) Af Amer 45 L, Est GFR (MDRD) Non-Af 37 L, BUN/Creatinine Ratio 18.5, Glucose 166 H,Calcium 8.0 L, Phosphorus 2.4 L, Magnesium 1.5 L, Total Bilirubin 0.30, Direct Bilirubin 0.10, AST 18, ALT 32, Alkaline Phosphatase 53, Total Protein 5.8 L, Albumin 2.8 L, Globulin 3.0, Albumin/Globulin Ratio 0.9, TSH 0.29 L Radiography Diagnostic Testing: Radiology Impression Brain CT 01/24/23 14:01 IMPRESSION: Chronic involutional changes of the brain. No acute hemorrhage Electronically Signed: Franky Pope MD at 15:06 EST , Chest X-Ray 01/24/23 14:50 IMPRESSION: Small left pleural effusion without a superimposed infiltrate Electronically Signed: Franky Pope MD at 15:06 EST , Physical Exam Narrative General: Alert, oriented, no apparent distress HEENT: Atraumatic, normocephalic Eyes: Anicteric, normal conjunctiva, extraocular movements grossly intact Neck: Supple Respiratory: Clear to auscultation bilaterally, normal respiratory effort Cardiovascular: Regular rate GI: Soft, nontender, nondistended Extremities: No significant pitting edema Musculoskeletal: Moving all extremities Neuro: No overt focal neurological deficits Skin: No rashes appreciated Psych: Cooperative Assessment & Plan Assessment/Plan (1) Sepsis: (2) Acute UTI: PLAN: Plan #Sepsis secondary to acute UTI -UA suggestive of UTI -Cultures pending, blood cultures obtained after antibiotics given this will likely be lower yield however urine culture still pending -Continue Zosyn -Patient meets sepsis criteria given initial blood pressure 90/55 with a MAP of 66, platelets of 102 (and subsequently 95), and creatinine of 1.6 in addition toher altered mental status -Patient did not receive the full 30 cc/kg of fluids on presentation, suspect this may be due to her history of nonischemic cardiomyopathy, did improve with antibiotics and with a liter of IV fluids as well as maintenance fluids so we will continue present management while awaiting cultures #Encephalopathy, suspect metabolic secondary to UTI -altered x1 day and UA suggestive of UTI -Treat underlying etiology #JACY on suspected CKD stage III unclear subtype -Creatinine 1.69 on presentation, downtrending, 1.46 today -Avoid nephrotoxic agents -Patient has been continued on gentle hydration with stop date #Type 2 diabetes mellitus -Glucose checks and sliding scale insulin #GERD -Continue PPI #Hypertension -Continue Coreg now that blood pressure is improved with antibiotics #History of nonischemic cardiomyopathy -Ejection fraction 45%, follows up with cardiology here at [facility]. Continue Coreg for now. #Morbid obesity -BMI 41.9 kg/m? -Complicates treatment, prognosis, outcomes -Recommend weight loss and lifestyle changes #Stage IIIc endometrial carcinoma -on adjuvant therapy with carboplatin, paclitaxel and pembrolizumab #DVT ppx: Heparin subcu Georgia Romero MD Time spent in the patient's overall evaluation,decision-making process, review of diagnostic data, adjustment of management, discussion with other providers, nursing nursing and ancillary staff involved in patient's care documentation, 36Minutes Charges/Coding Visit Charges Inpatient E&M: 22148 Subs Hosp L2 01/25/23 1220 <Electronically signed by Georgia Romero MD> Cosigner Signature (if applicable): CC: ~ Signed [facility] Work Phone: [phone]) 366-731911-26-2023 Discharge summary Author Robert Blue [facility] January 24, 2023 7:20pm Note Date/Time January 24, 2023 2:04pm [facility] Medical Records Department [address] [place] [address] Emergency Department Summary 01/24/23 MR#: [id number] Acct: [id number] Name: PRICILA HOOKER Yuliana Rep #:[id number] : 1945 77 From: Robert Blue MD PCP: Dr. Vinh Van MD Status:AD M IN Location: [facility] [id number] HPI <JONAH Oliveira - Last Filed: 01/24/23 17:53> History of Present Illness Chief Complaint: Neuro S/Sx Narrative Narrative: 77-year-old female with PMH of HTN, HLD, DM2, uterine cancer s/p hysterectomy onchemo and radiation presents after an episode of altered mental status this morning. She remembers sitting down at the kitchen table to have breakfast. Her sister came home around noon and noted she was sitting at the table staring and not responding well to questions. She initially could tell her her name butthen stopped answering. She did not fall or have syncopal event. She seemed out of it for 30 minutes. A similar episode occurred a week ago and they were not evaluated. Patient states she remembers being in the ambulance and them putting the EKG leads on her chest. She now feels back to normal. She denies recent fever, chills, N/V/D, chest pain or shortness of breath, or bladder or bowel changes. In the past she has had issues with dehydration and low magnesium which they thought were from Keytruda so they discontinued that. She only has 1 more chemotherapy and radiation treatment scheduled. Her oncologist is Dr. Branham. [facility] <JONAH Oliveira - Last Filed: 01/24/23 17:53> [facility] Medical History (Updated 01/24/23 @ 17:53 by JONAH Oliveira) Benign neoplasm of colon Chest pain Cholecystitis CKD (chronic kidney disease) stage 3, GFR 30-59 ml/min Diabetes Endometrial cancer GERD (gastroesophageal reflux disease) Hypercholesteremia Hypertension Neuropathy Home Medications glimepiride 4 mg tablet 1 tab PO BIDCM diabetes 05/05/20 [History Last Taken 05/05/20] metformin 500 mg tablet 2 tab PO BID #120 tabs 05/06/20 [Rx Last Taken Unknown] amitriptyline 50 mg tablet 50 mg PO QHS 12/23/22 [History Last Taken Unknown] atorvastatin 40 mg tablet 40 mg PO QHS 12/23/22 [History Last Taken Unknown] dulaglutide 3 mg/0.5 mL subcutaneous pen injector (Trulicity) 3 mg subcut QWEEK 12/23/22 [History Last Taken Unknown] gabapentin 100 mg capsule 100 mg PO BID 12/23/22 [History Last Taken Unknown] carvedilol 3.125 mg tablet 3.125 mg PO BID #60 tabs 12/29/22 [Rx Last Taken Unknown] empagliflozin 10 mg tablet (Jardiance) 10 mg PO DAILY #30 tabs 12/29/22 [Rx Last Taken Unknown] lisinopril 2.5 mg tablet 2.5 mg PO DAILY #30 tabs 12/29/22 [Rx Last Taken Unknown] magnesium chloride 71.5 mg (magnesium chloride) tablet,delayed release (Slow- Mag) 71.5 mg PO BID 12/29/22 [History Last Taken Unknown] ondansetron HCl 8 mg tablet 8 mg PO Q12H PRN nausea 12/29/22 [History Last Taken Unknown] aspirin 81 mg tablet,delayed release (Adult Low Dose Aspirin) 81 mg PO DAILY 01/24/23 [History Last Taken Unknown] Allergy/AdvReac Type Severity Reaction Status Date / Time No Known Allergies Allergy Verified 01/24/23 14:23 Family History (Updated 12/23/22 @ 14:30 by Esther Yousif) Father Myocardial infarction Mother Heart disease irregular heart rate Colon cancer Surgical History (Updated 12/23/22 @ 14:41 by Esther Yousif) History of total left knee replacement (TKR) (~01/2011) History of total right knee replacement (TKR) (~05/11/11) Hx laparoscopic cholecystectomy Hx of cataract surgery Hx of hysterectomy, total Social History (Updated 12/23/22 @ 14:31 by Esther Yousif) Smoking Status: Former smoker how long ago did patient quit smokin alcohol intake: never substance use type: does not use ROS <JONAH Oliveira - Last Filed: 01/24/23 17:53> ROS ED ROS Narrative Constitutional: Negative for fever, chills, malaise. Eyes: Negative for visual change. CVS: Negative for palpitations, chest pain, syncope. Respiratory: Negative for shortness of breath, cough. GI: Negative for abdominal pain, nausea, vomiting, diarrhea melena, hematochezia. : Negative for dysuria, hematuria or frequency. Neuro: Negative for headache, motor/sensory dysfunction. EXAM <JONAH Oliveira - Last Filed: 01/24/23 17:53> Physical Exam Narrative Exam Narrative: CONST: Patient sitting in no acute distress. EYES: Normal inspection. ENT: Normal inspection, slightly dry mucous membranes. NECK: Normal inspection. RESP: No respiratory distress, CTAB. CVS: Regular rate and rhythm, no murmur, no gallop. SKIN: Color normal, no rash, warm, dry, intact. EXTREMITIES: Normal appearance, no pedal edema. NEURO: Oriented x4. Face symmetric, moving all extremities. PSYCH: Normal affect. Const Vital Signs: 01/24/23 13:30 01/24/23 15:22 01/24/23 16:58 Temperature 97.3 F L 98.1 F Temperature Source Oral Pulse Rate 88 88 90 Respiratory Rate 16 12 20 H Blood Pressure 90/55 L 108/70 100/75 Blood Pressure Mean 66 82 83 Pulse Ox 97 98 89 Oxygen Delivery Method Room Air Nasal Cannula Oxygen Flow Rate (L/min) 2 01/24/23 17:00 Temperature 98.1 F Temperature Source Oral Pulse Rate 89 Respiratory Rate 18 Blood Pressure 126/61 H Blood Pressure Mean 82 Pulse Ox 92 Oxygen Delivery Method Room Air Oxygen Flow Rate (L/min) <Robert Blue MD - Last Filed: 01/24/23 19:20> Physical Exam Const Vital Signs: 01/24/23 13:30 01/24/23 15:22 01/24/23 16:58 Temperature 97.3 F L 98.1 F Temperature Source Oral Pulse Rate 88 88 90 Respiratory Rate 16 12 20 H Blood Pressure 90/55 L 108/70 100/75 Blood Pressure Mean 66 82 83 Pulse Ox 97 98 89 Oxygen Delivery Method Room Air Nasal Cannula Oxygen Flow Rate (L/min) 2 01/24/23 17:00 Temperature 98.1 F Temperature Source Oral Pulse Rate 89 Respiratory Rate 18 Blood Pressure 126/61 H Blood Pressure Mean 82 Pulse Ox 92 Oxygen Delivery Method Room Air Oxygen Flow Rate (L/min) MDM <JONAH Oliveira - Last Filed: 01/24/23 17:53> [facility] Narrative Medical decision making narrative: History gathered from: Patient and family member Patient had a 30-minute episode of altered mental status where she was awake butnot responding appropriately. She is now back to baseline. She appears well and nontoxic. BP is 90/55 with otherwise normal vital signs. She has dry mucous membranes with an otherwise benign exam. She is fully alert and orientedand neurologically intact. Her pulse ox dropped transiently she was placed on 2L nasal cannula but repeat pulse ox is normal and she was weaned to room air. She does not feel short of breath and denies chest pain. Labs show pancytopeniawith WBC of 4.0, hemoglobin 9.3, platelets 102. Lactate is 3.0. She has normal electrolytes with BUN of 28, creatinine 1.69. Magnesium slightly low at 1.4. She no recent labs in our system. She showed me her MyChart and labs from 01/12/2023 are listed below. She does have new neutropenia and acute kidney injury today which I suspect is from dehydration. UA is consistent with UTI. It was cultured and she was treated with IV fluids and Rocephin. Blood pressurehas improved after fluids. Case was discussed with the hospitalist for admission. Differential: Electrolyte abnormality, UTI, TIA among others 01/12/2023 labs WBC 7.45 Hgb 10.3 PLT 163 BUN 24 CR 1.07 NA 138 K4.4 Mg 1.4 Lab Data Attestation: I reviewed the patient's lab results. Labs: Laboratory Results - last 24 hr 01/24/23 01/24/23 14:42 15:58 WBC 4.0 L RBC 2.99 L Hgb 9.3 L Hct 30.0 L MCV 100.3 H MCH 31.1 MCHC 31.0 L RDW Std Deviation 48.8 H RDW Coeff of Casper 13.2 Plt Count 102 L MPV 9.8 Immature Gran % (Auto) 0.200 Neut % (Auto) 79.7 H Lymph % (Auto) 11.7 L [place] % (Auto) 7.2 Eos % (Auto) 1.0 Baso % (Auto) 0.2 Absolute Neuts (auto) 3.2 Absolute Lymphs (auto) 0.47 L Nucleated RBC % 0 Differential Comment SCANNED Diff Path Review May foll Sodium 136 Potassium 5.1 Chloride 103 Carbon Dioxide 28.0 Anion Gap 5 BUN 28 H Creatinine 1.69 H Estim Creat Clear Calc 30.15 Est GFR (MDRD) Af Amer 38 L Est GFR (MDRD) Non-Af 31 L BUN/Creatinine Ratio 16.6 Glucose 295 H Lactic Acid 3.0 H* Calcium 8.3 L Magnesium 1.4 L Troponin I High Sens 9 Urine Color Yellow Urine Clarity Sl. Cloudy Urine pH 6.0 Ur Specific [place] 1.015 Urine Protein 30 H Urine Glucose (UA) 1000 H Urine Ketones Negative Urine Occult Blood 10 H Urine Nitrite Negative Urine Bilirubin Negative Urine Urobilinogen Normal Ur Leukocyte Esterase 100 H Urine RBC 0-5 SEEN Urine WBC 25-50 SEEN Ur Squamous Epith Cells 0-5 SEEN Urine Bacteria 2+ Urine Mucus 0 SEEN Radiography Diagnostic Testing: Clinical Impression(s) from Imaging Studies Brain CT 01/24/23 14:01 IMPRESSION: Chronic involutional changes of the brain. No acute hemorrhage Electronically Signed: Franky Pope MD at 15:06 EST , Chest X-Ray 01/24/23 14:50 IMPRESSION: Small left pleural effusion without a superimposed infiltrate Electronically Signed: Franky Pope MD at 15:06 EST , EKG Initial EKG: Attestation: I personally reviewed and interpreted this EKG as follows: Interpretation: Sinus Rhythm and No Acute Injury Pattern Comments: Normal sinus rhythm at 92 bpm Low-voltage QRS, no STEMI <Robert Blue MD - Last Filed: 01/24/23 19:20> MDM MDM Narrative Medical decision making narrative: History gathered from: Patient and family member Patient had a 30-minute episode of altered mental status where she was awake butnot responding appropriately. She is now back to baseline. She appears well and nontoxic. BP is 90/55 with otherwise normal vital signs. She has dry mucous membranes with an otherwise benign exam. She is fully alert and orientedand neurologically intact. Her pulse ox dropped transiently she was placed on 2L nasal cannula but repeat pulse ox is normal and she was weaned to room air. She does not feel short of breath and denies chest pain. Labs show pancytopeniawith WBC of 4.0, hemoglobin 9.3, platelets 102. Lactate is 3.0. She has normal electrolytes with BUN of 28, creatinine 1.69. Magnesium slightly low at 1.4. She no recent labs in our system. She showed me her MyChart and labs from 01/12/2023 are listed below. She does have new neutropenia and acute kidney injury today which I suspect is from dehydration. UA is consistent with UTI. It was cultured and she was treated with IV fluids and Rocephin. Blood pressurehas improved after fluids. Case was discussed with the hospitalist for admission. Differential: Electrolyte abnormality, UTI, TIA among others 01/12/2023 labs WBC 7.45 Hgb 10.3 PLT 163 BUN 24 CR 1.07 NA [address] Blue: I have personally performed a face to face assessment of the patient and have reviewed the GABBIE Note. I performed a substantive portion of the visit including all aspects of the following. My tristan findings include: History is confusion, staring off into space, history of carcinoma with radiation therapy and chemotherapy. Exam is afebrile. Vital signs noted. Regular rate and rhythm. Lungs clear to auscultation bilaterally. Abdomen soft and nontender with normal active bowel sounds. Neurological examination nonfocal and nonlateralizing. Medical Decision Making: Check labs. Check UA. Antibiotics. Observation. Other additions or changes: [None] History & Record Review Discussion w/independent historian: Patient Additional record(s) reviewed:: Prior ED visit Lab Data Labs: Laboratory Results - last 24 hr 01/24/23 01/24/23 14:42 15:58 WBC 4.0 L RBC 2.99 L Hgb 9.3 L Hct 30.0 L MCV 100.3 H MCH 31.1 MCHC 31.0 L RDW Std Deviation 48.8 H RDW Coeff of [place]per 13.2 Plt Count 102 L MPV 9.8 Immature Gran % (Auto) 0.200 Neut % (Auto) 79.7 H Lymph % (Auto) 11.7 L [place] % (Auto) 7.2 Eos % (Auto) 1.0 Baso % (Auto) 0.2 Absolute Neuts (auto) 3.2 Absolute Lymphs (auto) 0.47 L Nucleated RBC % 0 Differential Comment SCANNED Diff Path Review May foll Sodium 136 Potassium 5.1 Chloride 103 Carbon Dioxide 28.0 Anion Gap 5 BUN 28 H Creatinine 1.69 H Estim Creat Clear Calc 30.15 Est GFR (MDRD) Af Amer 38 L Est GFR (MDRD) Non-Af 31 L BUN/Creatinine Ratio 16.6 Glucose 295 H Lactic Acid 3.0 H* Calcium 8.3 L Magnesium 1.4 L Troponin I High Sens 9 Urine Color Yellow Urine Clarity Sl. Cloudy Urine pH 6.0 Ur Specific [place] 1.015 Urine Protein 30 H Urine Glucose (UA) 1000 H Urine Ketones Negative Urine Occult Blood 10 H Urine Nitrite Negative Urine Bilirubin Negative Urine Urobilinogen Normal Ur Leukocyte Esterase 100 H Urine RBC 0-5 SEEN Urine WBC 25-50 SEEN Ur Squamous Epith Cells 0-5 SEEN Urine Bacteria 2+ Urine Mucus 0 SEEN Radiography Diagnostic Testing: Clinical Impression(s) from Imaging Studies Brain CT 01/24/23 14:01 IMPRESSION: Chronic involutional changes of the brain. No acute hemorrhage Electronically Signed: Franky Pope MD at 15:06 EST , Chest X-Ray 01/24/23 14:50 IMPRESSION: Small left pleural effusion without a superimposed infiltrate Electronically Signed: Franky oPpe MD at 15:06 EST , Discharge Plan Dx/Rx/DC Orders Clinical Impression: Acute kidney injury, Acute hypotension, Acute dehydration, History of cancer of uterus, Acute UTI, Hypomagnesemia, Pancytopenia Disposition Disposition: Acute Care Hospital [facility] Discharge Date/Time: 01/24/23 19:02 What to do if you have Problems For any increased pain, shortness of breath, bleeding, nausea or vomiting, chest pain, or any unexpected problems, contact your Primary Care Provider. Call [facility] ([phone]) or report to the closest Emergency Room. Call 911 if necessary. 01/24/231919 <Electronically signed by Robert Blue MD> Cosigner Signature (if applicable): 01/24/231752 <Electronically signed by Rodo MCKENZIE> CC: Dr. Vinh Van MD ~ Signed [facility] Work Phone: 1(259) 333-780011-26-2023 History and physical note Author Arbaham Edgar [facility] January 24, 2023 7:03pm Note Date/Time January 24, 2023 5:21[facility] Medical Records Department [address] [place] [address] H&P Exam - Hospitalist 01/24/23 1720 MR#: [id number] Acct: [id number] Name: PRICILA HOOKER Rep #:[id number] : 1945 77 From: Abraham Edgar MD PCP: Dr. Vinh Van MD Status:AD M IN Location: [facility] [id number] HPI - General General Date of Admission: 01/24/23 Date of Service: 01/24/23 HPI Narrative PRICILA HOOKER, is a 77 F with past medical history of stage IIIc endometrial carcinoma with squamous differentiation, hypertension, hyperlipidemia, GERD, type 2 diabetes, nonischemic cardiomyopathy ejection fraction 45%. For her chemotherapy she is on adjuvant therapy with carboplatin, paclitaxel and pembrolizumab She was brought to the ED with symptoms of altered mental status this morning. This was noted by her sister who found her less responsive and there was some staring spells. This lasted for about 30 minutes, and she has had similar episodes in the past. In the ED she was found to have a WBC of 4, hemoglobin 9.3, platelet of 102. Lactate was 3.0. With a BUN of 28 and creatinine 1.69. Her UA shows 25-50 WBCs, leuk esterase positive, nitrate negative, with 2+ bacteria. [facility] Medical History (Updated 01/24/23 @ 17:53 by JONAH Oliveira) Benign neoplasm of colon Chest pain Cholecystitis CKD (chronic kidney disease) stage 3, GFR 30-59 ml/min Diabetes Endometrial cancer GERD (gastroesophageal reflux disease) Hypercholesteremia Hypertension Neuropathy Home Medications glimepiride 4 mg tablet 1 tab PO BIDCM diabetes 05/05/20 [History Last Taken 05/05/20] metformin 500 mg tablet 2 tab PO BID #120 tabs 05/06/20 [Rx Last Taken Unknown] amitriptyline 50 mg tablet 50 mg PO QHS 12/23/22 [History Last Taken Unknown] atorvastatin 40 mg tablet 40 mg PO QHS 12/23/22 [History Last Taken Unknown] dulaglutide 3 mg/0.5 mL subcutaneous pen injector (Trulicity) 3 mg subcut QWEEK 12/23/22 [History Last Taken Unknown] gabapentin 100 mg capsule 100 mg PO BID 12/23/22 [History Last Taken Unknown] carvedilol 3.125 mg tablet 3.125 mg PO BID #60 tabs 12/29/22 [Rx Last Taken Unknown] empagliflozin 10 mg tablet (Jardiance) 10 mg PO DAILY #30 tabs 12/29/22 [Rx Last Taken Unknown] lisinopril 2.5 mg tablet 2.5 mg PO DAILY #30 tabs 12/29/22 [Rx Last Taken Unknown] magnesium chloride 71.5 mg (magnesium chloride) tablet,delayed release (Slow- Mag) 71.5 mg PO BID 12/29/22 [History Last Taken Unknown] ondansetron HCl 8 mg tablet 8 mg PO Q12H PRN nausea 12/29/22 [History Last Taken Unknown] aspirin 81 mg tablet,delayed release (Adult Low Dose Aspirin) 81 mg PO DAILY 01/24/23 [History Last Taken Unknown] Allergy/AdvReac Type Severity Reaction Status Date / Time No Known Allergies Allergy Verified 01/24/23 14:23 Family History (Updated 12/23/22 @ 14:30 by Esther Yousif) Father Myocardial infarction Mother Heart disease irregular heart rate Colon cancer Surgical History (Updated 12/23/22 @ 14:41 by Esther Yousif) History of total left knee replacement (TKR) (~01/2011) History of total right knee replacement (TKR) (~05/11/11) Hx laparoscopic cholecystectomy Hx of cataract surgery Hx of hysterectomy, total Social History (Updated 12/23/22 @ 14:31 by Esther Yousif) Smoking Status: Former smoker how long ago did patient quit smokin alcohol intake: never substance use type: does not use ROS Review of Systems ROS Unobtainable: Denies due to encephalopathy, due to endotracheal tube, due tomental condition, due to mental status or other Constitutional Constitutional: Denies anorexia, change in weight, chills, fatigue, fever(s), malaise, night sweats, weakness or other Eyes Eyes: Denies blurry vision, change in eye color, change in vision, discharge from eye(s), double vision, erythema, eye pain, loss of vision or other ENT HEENT: Denies abnormal hearing, dysphagia, ear pain, epistaxis, headache(s), hearing loss, nasal congestion, nasal discharge, post nasal drip, sinus pressure, sore throat or other Respiratory/Chest Respiratory/Chest: Denies cough, dyspnea, excessive phlegm production, hemoptysis, productive cough, shortness of breath at rest, shortness of breath with exertion, wheezing or other Gastrointestinal Gastrointestinal: Denies abdominal pain, coffee ground emesis, constipation, diarrhea, dyspepsia, hematemesis, hematochezia, loose stools, melena, nausea, vomiting or other Genitourinary Genitourinary: Reports burning urination Musculoskeletal Musculoskeletal: Denies arthralgias, back pain, joint pain, joint stiffness, joint swelling, myalgias, neck pain or other Neurologic Neurologic: Denies abnormal gait, abnormal speech, confusion, disequilibrium, dizziness, focal weakness, headache(s), numbness, paresthesias, seizure-like activity, seizures, syncope, tingling, tremor(s) or other Psychiatric Psychiatric: Denies anxiety, depression, homicidal ideation, suicidal ideation or other Endocrine Endocrinology: Denies change in body appearance, cold intolerance, excessive sweating, heat intolerance, polydipsia, polyuria or other Hematologic/Lymphatic Hematologic/Lymphatic: Denies anemia, easy bleeding, easy bruising, lymphadenopathy or other Allergic/Immunologic Allergic/Immunologic: Denies rhinitis, hives, eczemia, asthma or other Vital Signs Vital Signs Vital Signs: 01/24/23 13:30 01/24/23 15:22 01/24/23 16:58 Temperature 97.3 F L 98.1 F Temperature Source Oral Pulse Rate 88 88 90 Respiratory Rate 16 12 20 H Blood Pressure 90/55 L 108/70 100/75 Blood Pressure Mean 66 82 83 Pulse Ox 97 98 89 Oxygen Delivery Method Room Air Nasal Cannula Oxygen Flow Rate (L/min) 2 01/24/23 17:00 Temperature 98.1 F Temperature Source Oral Pulse Rate 89 Respiratory Rate 18 Blood Pressure 126/61 H Blood Pressure Mean 82 Pulse Ox 92 Oxygen Delivery Method Room Air Oxygen Flow Rate (L/min) Weight Weight: 277 lb 12.519 oz Body Mass Index (BMI) 39.8 Physical Exam Const alert and oriented x3 HEENT normocephalic Eyes PERRL Neck no lymphadenopathy Resp normal respiratory effort Cardio regular rate and regular rhythm GI normal to inspection, nondistended, normoactive bowel sounds Extremity normal to inspection Neuro oriented x3 Results Medical Records Data Attestation: I reviewed the patient's medical records Lab / Micro Data Attestation: I reviewed the patient's lab results. Lab results narrative: Pancytopenia 01/24/23 14:42 01/24/23 14:42 Labs: Laboratory Results - last 24 hr 01/24/23 14:42: WBC 4.0 L, RBC 2.99 L, Hgb 9.3 L, Hct 30.0 L, MCV 100.3 H, MCH 31.1, MCHC 31.0 L, RDW Std Deviation 48.8 H, RDW Coeff of [place] 13.2, Plt Count 102 L, MPV 9.8, Immature Gran % (Auto) 0.200, Neut % (Auto) 79.7 H, Lymph % (Auto) 11.7 L, Montgomery % (Auto) 7.2, Eos % (Auto) 1.0, Baso % (Auto) 0.2, Absolute Neuts (auto) 3.2, Absolute Lymphs (auto) 0.47 L, Nucleated RBC % 0, DifferentialComment SCANNED, Diff Path Review June, Sodium 136, Potassium 5.1, Chloride 103, Carbon Dioxide 28.0, Anion Gap 5, BUN 28 H, Creatinine 1.69 H, Estim Creat Clear Calc 30.15, Est GFR (MDRD) Af Amer 38 L, Est GFR (MDRD) Non-Af 31 L, BUN/Creatinine Ratio 16.6, Glucose 295 H, Lactic Acid 3.0 H*, Calcium 8.3 L, Magnesium 1.4 L, Troponin I High Sens 9 01/24/23 15:58: Urine Color Yellow, Urine Clarity Sl. Cloudy, Urine pH 6.0, Ur Specific [place] 1.015, Urine Protein 30 H, Urine Glucose (UA) 1000 H, Urine Ketones Negative, Urine Occult Blood 10 H, Urine Nitrite Negative, Urine BilirubinNegative, Urine Urobilinogen Normal, Ur Leukocyte Esterase 100 H, Urine RBC 0-5 SEEN, Urine WBC 25-50 SEEN, Ur Squamous Epith Cells 0-5 SEEN, Urine Bacteria 2+,Urine Mucus 0 SEEN Imagaing Radiology Impression Brain CT 01/24/23 14:01 IMPRESSION: Chronic involutional changes of the brain. No acute hemorrhage Electronically Signed: Franky Pope MD at 15:06 EST Reading Location ID and State: [facility] / [place] , Service support , Chest X-Ray 01/24/23 14:50 IMPRESSION: Small left pleural effusion without a superimposed infiltrate Electronically Signed: Franky Pope MD at 15:06 EST Reading Location ID and State: [facility] / [place] , Service support , Assessment & Plan Assessment/Plan (1) Acute UTI: PLAN: Plan Summary: 77-year-old female with history of endometrial carcinoma on chemotherapy complicated by pancytopenia, presents with altered mental status since last few days and was found to have UTI at the time of presentation. 1. AMS: This is likely related to her urosepsis. Will start her on IV Zosyn given her immunocompromise status. Fluid therapy, and continue to monitor her vitals. 2. Urosepsis: Blood cultures and urine cultures are pending, she has UTI based on her urinalysis. Continue IV Zosyn monitor closely. 3. Endometrial carcinoma: Presently on chemoradiation therapy at [facility], continue as an outpatient 4. Type 2 diabetes: HbA1c levels tomorrow, sliding scale insulin while in the hospital. 5. Nonischemic cardiomyopathy: Ejection fraction 45%, follows up with cardiology here at [facility]. Continue Coreg for now. Her presentation is less likely suggestive of arrhythmias. EKG was normal 6. JACY on CKD: Likely related to her acute infection. Continue to monitor after fluid therapy. 01/24/231902 <Electronically signed by Abraham Edgar MD> Cosigner Signature (if applicable): CC: Dr. Abraham Edgar MD; Dr. Vinh Van MD~ Signed [facility] Work Phone: 1(484) 152-511211-21-2023 History of Present illness Narrative* Rosanne Díaz MD - 01/19/2023 12:00 AM EST Name: PRICILA HOOKER Date: 01/19/2023 [facility] Department of Radiation Oncology [facility] RADIATION ONCOLOGY TREATMENT PLANNING NOTE For reasons stated in the consult note, the above named patient is a candidate for Transvaginal HDR-Brachytherapy. Based on review and interpretation of the relevant diagnostic studies together with the exam findings, the patient was simulated on 01/19/2023, at which time the target volume and organs at risk were delineated, as indicated in the simulation note, to be treated according to the prescription. Treatment Planning for Brachytherapy Following CT Scan guided simulation procedures and transfer of multiple CT images of the pelvis/implant to the NimbusBase computerized dosimetry system, treatment planning was completed with the Attending Physician and designated Medical Physics Staff. The Planning Treatment Volume and adjacent organs at risk were contoured; the appropriate isodose line/point dose was selected with due consideration for the adjacent organs and their dose tolerances. The prescription (Transvaginal HDRB: 21Gy, 7Gy/fx, 3fx's, depth=0.5cm, AL=5cm) and computerized treatment plan containing these dose parameters are documented in the Prescription and Treatment Planning Mosaic modules. A completed summary of this plan dated 01/19/2023, incorporated herein by reference includes dose, dwell points, dwell times, reference points, source, blocking, isodose distribution and DVH. Electronically Signed Rosanne Díaz MD Radiation Oncology/T28 33:45 PM documented in this encounterBarnesville Hospital11-21-2023 History of Present illness Narrative* Rosanne Díaz MD - 01/19/2023 12:00 AM EST [facility] Department of Radiation Oncology [facility] HDR BRACHYTHERAPY PROCEDURE NOTE Name: PRICILA HOOKER Date of Service: 01/19/2023 Treatment start: See corresponding BTR Treatment finish: See corresponding BTR Referring Physician: Dr. Memo Leigh Surgeons: Dr. Rosanne Díaz and Dr. Jose Manuel Qureshi DIAGNOSIS: 77 year old female with FIGO stage IIIC1, grade 2, MMR-deficient endometrioid endometrial adenocarcinoma s/p TLH-BSO with bilateral SLNB (07/24/2022) with final pathology showing 95%NV, extensive LVSI and MELF, left fallopian tube involvement, and 1/4 + LN (left) and ITCs in 1/2 LN (right) s/p carbo/taxol/pembrolizumab x 4c (09/03/22-current) with planned radiation delayed due to toxicities from systemic therapy. TREATMENT MACHINE: Pufettoitron-HDR V2 Ir-192 PROCEDURE: Transvaginal Delclos Cylinder Application for HDRB TREATMENT SITE: Vaginal vault ANESTHESIA: None required DOSE PRESCRIBED: 2100cGy, 700cGy/fx, 3fx, AL=5cm, depth=0.5cm CUMULATIVE DOSE DELIVERED: 700cGy FRACTION NUMBER: 1 DESCRIPTION: The patient was brought to the brachytherapy treatment room and placed on the treatment table in the lithotomy position. A Delclos vaginal cylinder, diameter = 3.0 cm, was inserted to the appropriate depth. The cylinder tandem was then fixed in position with a baseplate device. The cylinder was then connected by catheter to the faceplate of the HDR device. Following dose fraction #1,delivering 700cGy, at depth 0.5cm, perpendicular to the cylinder surface, the connecting catheter was removed followed by removal of the baseplate system and cylinder without incident. The patient tolerated the procedure well and was returned to the patient waiting room in satisfactory condition. COMPLICATIONS: None BLOOD LOSS: <2 mls RADIATION SURVEY FOLLOWING BRACHYTHERAPY: Satisfactory. REMARKS: None Electronically Signed Rosanne Díaz MD Radiation Oncology :46 PM documented in this encounterBarnesville Hospital11-19-2023 Miscellaneous Notes* Telephone Encounter - Bill Pena MD - 01/17/2023 3:28 PM EST After hours call Pricila Hooker and patient's family called regarding an brief stint of AMS. Patient had carbo/taxol on 01/13 and has been feeling weak in general. She had otherwise been acting herself when her daughter noticed that she was seeming a bit "off". When asked to described further, she said that she was acting more drowsy for a brief period of time. She remained responsive, was without focal weakness, dysarthria, or other unusual symptoms beyond seeming "off". The patient then returned to her baseline and has been fine since. I advised her to monitor closely with a low threshold to go to the ED especially if the symptoms return or she developed new or concerning symptoms. They voiced their unde rstanding. Bill Pena MD documented in this encounterBarnesville Hospital11-15-2023 Miscellaneous Notes* Telephone Encounter - Nora Branham DO - 01/13/2023 9:47 AM EST Thank you! Really appreciate that. Nora Branham DO * Telephone Encounter - Roseann Huff RN - 01/13/2023 9:28 AM EST Pt brought all of her meds in today per Dr. Branham's request. Med list updated. documented in this encounterBarnesville Hospital11-14-2023 History of Present illness Narrative* Nora Branham DO - 01/12/2023 9:05 AM EST Diagnosis: 1) 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 HPI: The patient is a 77-year-old female with a past medical history significant for hypertension, hyperlipidemia, GERD, type 2 diabetes (diagnosed about age 60; neuropathy), total knee replacement, former smoker and recent diagnosis of endometrial cancer. SURGERY & DATE: 07/24/2022 - Exam under anesthesia, total laparoscopic hysterectomy, bilateral salpingo-oophorectomy, sentinel lymph node mapping with excision of bilateral pelvic sentinel lymph nodes, and extensive lysis of adhesions. PATHOLOGY: A. Odum lymph node, right, biopsy: - Isolated tumor cells involving 1 of 2 lymph nodes; see comment. B. 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 C. Uterus with cervix, right and left fallopian tubes, and ovaries, hysterectomy and bilateral salpingo-oophorectomy: - Cervix: No significant pathologic abnormality. - Endomyometrium: Endometrial endometrioid carcinoma with squamous differentiation, FIGO grade 2, invading outer myometrium (18 mm out of 19 mm, 95%) and showing extensive/multifocal lymphovascular invasion and the microcystic, elongated, and fragmented (MELF) pattern of invasion; see comment and synoptic report. - Serosa: No significant pathologic abnormality. - Bilateral ovaries: Adhesions. - Right fallopian tube: Hematosalpinx, no definitive carcinoma. - Left fallopian tube: Metastatic carcinoma. Mismatch repair (MMR) interpretation: Deficient mismatch repair (dMMR) Results Mismatch Repair Protein Immunohistochemistry Results: MLH1: Loss of Nuclear Expression (subclonal/focal loss) PMS2: Loss of Nuclear Expression (subclonal/focal loss) MSH2: Normal/Intact Nuclear Expression MSH6: Normal/Intact Nuclear Expression IMAGING: CT ABD/PELVIS: 06/16/2022 IMPRESSION: 1. Findings compatible with cystitis. 2. Approximately 8.5 cm tubular/serpiginous cystic lesion in the right adnexal region suspect for hydrosalpinx though right ovarian cystic lesion not excluded with certainty. Mild infiltration of thesurrounding fat raises suspicion for the possibility of superinfection. A few small bowel loops in the pelvis appear tethered around this right adnexal cystic lesion and a short segment of sigmoid colon abuts the posterior aspect of this right adnexal lesion. 3. Small volume pelvic free fluid. 4. Heterogeneous appearance of the uterus potentially related to fibroids. Further evaluation with dedicated pelvic ultrasound would be of value. CXR: 07/22/2022 IMPRESSION: Left basilar mild atelectasis. TUMOR BOARD: Management Options: -Recommend adjuvant treatment with systemic therapy, carbo/taxol +/- pembrolizumab -Referral to genetics Per initial consultation here: No vaginal discharge or bleeding. Bowels moving regularly. Good appetite. Pain is gone. Subjectively voiding to completion. Fingertip and toes numb. Had it approximately 3 years. Orthostasis if stands quickly. Balance has been "off" for about 6 months. Used WC to come in from [facility]. Uses cane and walker in the home. Lives in basement of sister's house. Capable of all ADLs independently. Uses shower chair. She and sister share cooking. Drives. Low back pain can limit her walking--symptoms are consistent with spinal stenosis. Current therapy: 1) Paclitaxel and carboplatin and pembrolizumab. First 2 cycles without pembrolizumab. Presents for ongoing oncologic management. Interim history: Had EGD. Results noted. ?Gastroparesis. Blood glucose doing better 90-100s. Saw cardiology for reduced EF. Started on Jaurdiance. Occasional orthostasis if stands too quickly. No swelling legs or feet. No exertional chest pain or tightness. Appetite is better and hasn't had post-prandial vomiting. Stopped omeprazole and Mobic. No diarrhea. Vision improved--saw retina specialist in [place] yesterday. Tingling in fingers stable. Feet neuropathy stable. PMH, medications and allergies personally reviewed by me today. Any changes documented in appropriate section. PHYSICAL EXAM: Vitals: Blood pressure 110/69, pulse 81, temperature 36.1 C (97 F), temperature source Temporal, weight 125.6 kg (277 lb), SpO2 99 %. Better-appearing and in no acute distress. EYES: Sclerae are anicteric bilaterally. No conjunctival injection. LYMPHATIC: There is no palpable cervical or supraclavicular, adenopathy. RESPIRATORY: Inspiratory breath sounds are of diminished intensity in all thompson. No rales, wheezesor rhonchi. CARDIOVASCULAR: Rhythm is regular and tachycardic. ABDOMEN: The abdomen is nondistended. No tenderness. LABS: Component Latest Ref Rng & Units 12/22/2022 WBC 3.70 - 11.00 k/uL 9.25 RBC 3.90 - 5.20 m/uL 3.22 (L) Hemoglobin 11.5 - 15.5 g/dL 10.4 (L) Hematocrit 36.0 - 46.0 % 31.8 (L) MCV 80.0 - 100.0 fL 98.8 MCH 26.0 - 34.0 pg 32.3 MCHC 30.5 - 36.0 g/dL 32.7 RDW-CV 11.5 - 15.0 % 17.8 (H) Platelet Count 150 - 400 k/uL 139 (L) MPV 9.0 - 12.7 fL 10.2 Neut% % 64.4 Abs Neut (ANC) 1.45 - 7.50 k/uL 5.95 Lymph% % 17.1 Abs Lymph 1.00 - 4.00 k/uL 1.58 Montgomery% % 8.0 Abs Montgomery <0.87 k/uL 0.74 Eosin% % 9.6 Abs Eosin <0.46 k/uL 0.89 (H) Baso% % 0.4 Abs Baso <0.11 k/uL 0.04 Immature Gran % % 0.5 IMMATURE GRANS (ABS) <0.10 k/uL 0.05 NRBC /100 WBC 0.0 Absolute nRBC <0.01 k/uL <0.01 DTYPE Auto ASSESSMENT/PLAN: (C54.1) Endometrial cancer (HCC) (primary encounter diagnosis) (G62.9) Neuropathy -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 -Her KPS is 60%. -Significant comorbid conditions including type 2 diabetes with pre-existing sensory neuropathy. She had impaired gait and mobility from spinal stenosis as well. Nonetheless she stood to benefit significantly from adjuvant therapy. -Adjuvant therapy with carboplatin, paclitaxel and pembrolizumab based on the recently reported results of the NRG-GY018 trial. -Pembrolizumab was added with cycle #3. -Received 5 cycles. Therapy held following due to worsening neuropathy and general decline. -Better now. -Diagnosed with macular edema. Going to receive bevacizumab. Plan: -Okay to resume chemotherapy but hold immunotherapy. -To receive brachytherapy. -Follow up with cardiology. Portions of this documentation were copied and pasted from previous office visit notes in order to provide a cohesive continuity of the history. The note has been reviewed and edited and updated as necessary. I spent a total of 20 minutes on the date of the service which included preparing to see the patient, [id number] patient care, completing clinical documentation, obtaining and/or reviewing separately obtained history, performing a medically appropriate examination, counseling and educating the pat ient/family/caregiver, ordering medications, tests, or procedures, and communicating results to thepatient/family/caregiver. Nora Branham DO documented in this encounterBarnesville Hospital11-09-2023 History of Present illness Narrative* Rosanne Díaz MD - 01/07/2023 1:30 PM EST Radiation Oncology - New Patient/Consult Note PATIENT NAME: Pricila Hooker PATIENT REQUESTING PROVIDER: Dr. Memo Leigh. DIAGNOSIS: 77 year old female with FIGO stage IIIC1, grade 2, MMR-deficient endometrioid endometrial adenocarcinoma s/p TLH-BSO with bilateral SLNB (07/24/2022) with final pathology showing 95%NV, extensive LVSI and MELF, left fallopian tube involvement, and 1/4 + LN (left) and ITCs in 1/2 LN (right) s/p carbo/taxol/pembrolizumab x 4c (09/03/22-current) with planned radiation delayed due to toxicities from systemic therapy. Referred for discussion of VBT. Cancer Staging No matching staging information was found for the patient. HPI: 77 year old female with above diagnosis, who presents for an opinion regarding the role of radiation therapy in the management of the patient's disease. Final recommendations will be communicated back to the requesting physician by way of the shared medical record, or letter to requesting physician via US mail. Ms. Hooker's oncologic history dates back to April 2022 when she presented to her PCP with post-menopausal bleeding, flank pain, and UTI symptoms. She was treated with antibiotics and referred for pelvic ultrasound. She underwent ultrasound of the kidney/bladder on 06/11/2022 and was incidentally noted to have a complex adnexal cyst. Follow-up CT abdomen/pelvis (06/16/2022) showed an 8.5 cm tubular structure in the R adnexa and heterogeneous appearance of the uterus. Follow-up pelvic ultrasound showed a R adnexal cyst, L complex cyst, and thickened endometrial stripe. CA-125 was 172. She was subsequently referred to Dr. Leigh and underwent TLH/BSO and bilateral sentinel lymph node biopsies on 07/24/2022 with pathology revealing 95%NV, extensive LVSI and MELF, left fallopian tube involvement, and 1/4 + LN (left) and ITCs in 1/2 LN (right). Her case was presented at tumor board on 08/11/2022 and recommendation was made for adjuvant treatment with carbo/taxol +/- pembrolizumab. She was referred to Dr. Branham in [place] and started carbo/taxol on 09/03/2022 x 2c. Pembrolizumab was added to the carbo/taxol with cycle 3 on 10/14/2022 and continued to receive a total of 4 cycles (chemo held 12/01/2022). After starting pembrolizumab, she developed blurred vision in both eyes and dizziness, as well as hypomagnesemia, moderate thrombocytopenia, orthostasis and dehydration, and justoverall poor tolerance. She met with Dr. Leigh again on 12/30/2022 and made the decision to complete her last 2 cycles of carbo/taxol alone without pembrolizumab and vaginal cuff brachytherapy to decrease the risk of vaginal recurrence. She presents today for discussion of vaginal cuff brachytherapy. At this visit, she notes that she feels fairly well. She is scheduled for chemotherapy next Wednesday with Dr. Branham. Surgical pathology (07/24/2022): FINAL DIAGNOSIS A. Odum lymph node, right, biopsy: - Isolated tumor cells involving 1 of 2 lymph nodes; see comment. B. 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 C. Uterus with cervix, right and left fallopian tubes, and ovaries, hysterectomy and bilateral salpingo-oophorectomy: - Cervix: No significant pathologic abnormality. - Endomyometrium: Endometrial endometrioid carcinoma with squamous differentiation, FIGO grade 2, invading outer myometrium (18 mm out of 19 mm, 95%) and showing extensive/multifocal lymphovascular invasion and the microcystic, elongated, and fragmented (MELF) pattern of invasion; see comment and synoptic report. - Serosa: No significant pathologic abnormality. - Bilateral ovaries: Adhesions. - Right fallopian tube: Hematosalpinx, no definitive carcinoma. - Left fallopian tube: Metastatic carcinoma. CT Chest (12/24/2022): IMPRESSION: No CT evidence of metastatic disease in the thorax. CT Abdomen/Pelvis (12/24/2022): IMPRESSION: No metastatic disease in the abdomen/pelvis. ALLERGIES Allergen Reactions Adhesive Tape (Bailey* Rash PAST MEDICAL HISTORY Diagnosis Date Acute cholecystitis 01/04/2007 Arthritis Benign neoplasm of colon Diabetes mellitus without mention of complication Endometrial cancer (HCC) GERD (gastroesophageal reflux disease) Hemorrhoids Hypercholesteremia Hypertension Neuropathy Osteoarthritis of multiple joints Prior radiation therapy, collagen vascular disease, or inflammatory bowel disease: No Any implanted or external electric devices? No status: Naturally post-menopausal. PAST SURGICAL HISTORY Procedure Laterality Date ABDOMINAL SURGERY HX ARTHRP KNE CONDYLE&PLATU MEDIAL&LAT COMPARTMENTS 05/11/2011 Knee replacement, total right ARTHRP KNE CONDYLE&PLATU MEDIAL&LAT COMPARTMENTS 01/2011 left CATARACT EXTRACTION HX Left COLONOSCOPY FLX DX W/COLLJ SPEC WHEN PFRMD 12/28/2007 Colonoscopy COLONOSCOPY FLX DX W/COLLJ SPEC WHEN PFRMD 06/17/2012 Colonoscopy COLONOSCOPY FLX DX W/COLLJ SPEC WHEN PFRMD 11/05/2017 Colonoscopy EGD W/O BRSH SPEC VARICIES INJ 11/25/2022 EYE SURGERY HX JOINT REPLACEMENT HX LAPS SURG CHOLECYSTECTOMY W/CHOLANGIOGRAPHY 01/04/2007 LAPS TOTAL HYSTERECT 250 GM/< W/RMVL TUBE/OVARY 07/24/2022 Exam under anesthesia, total laparoscopic hysterectomy, bilateral salpingo- oophorectomy, sentinel lymph node mapping with excision of bilateral pelvic sentinel lymph nodes, and extensive lysis of adhesions. FAMILY HISTORY Problem Relation Age of Onset Heart Mother irregular heart rate Colon Cancer Mother Stroke Mother Heart Father from heart attack Colon Cancer Maternal Grandfather Social History Tobacco Use Smoking status: Former Packs/day: 0.50 Years: 20.00 Additional pack years: 0.00 Total pack years: 10.00 Types: Cigarettes Quit date: 11/05/1977 Years since quittin.2 Smokeless tobacco: Never Vaping Use Vaping Use: Never used Substance Use Topics Alcohol use: No Drug use: No PIPING BLOCKER HISTORY: The patient is postmenopausal. COMPLETE REVIEW OF SYSTEMS: As noted in HPI PHYSICAL EXAM: VS: There were no vitals taken for this visit. KPS: 60 General Appearance: Alert and oriented. No acute distress. HEENT: NCAT. Sclera anicteric. PERRL. EOMI. Rest of the exam deferred at this time. RADIOLOGY/LABORATORY DATA: see HPI ASSESSMENT AND PLAN: In summary, Ms. Hooker is a 77 year old female with FIGO stage IIIC1, grade 2, MMR-deficient endometrioid endometrial adenocarcinoma s/p TLH-BSO with bilateral SLNB (07/24/2022) with final pathology showing 95%NV, extensive LVSI and MELF, left fallopian tube involvement, and 1/4 + LN (left) and ITCs in 1/2 LN (right) s/p carbo/taxol/pembrolizumab x 4c (09/03/22-current) with planned radiation delayed due to toxicities from systemic therapy. Referred for discussion of VBT. I had a long discussion with Ms. Hooker and her sister reviewing her history, pathology, and imaging findings. I then explained the role of HDR vaginal cuff brachytherapy to help decrease the risk of vaginal cuff recurrence We would plan for 3 fractions interdigitated between chemotherapy cycles. I explained the risks, benefits, alternative treatment options, logistics, equipment, personnel, andpotential acute and late side effects of treatment. Ms. Hooker and her sister had the opportunity to ask questions, which I answered to hersatisfaction. She would like to proceed with treatment hereat [facility] starting 01/18/2023. At the end of our visit, she was given my contact information and encouraged to call with any questions or concerns that may arise. Signed by: Rosanne Díaz MD cc: Vinh Van [address] [place] [address] Memo Leigh [id number] [facility] [id number] documented in this encounterBarnesville Hospital11-03-2023 Miscellaneous Notes* Telephone Encounter - Renata Vasquez - 01/01/2023 9:26 AM EDT Sent e-mail to cancer answer to reach out to pt and assist in scheduling. Spoke with pt and informed her that they should be contacting her to schedule. Also gave her the number as well * Telephone Encounter - Lexie Hadley RN - 01/01/2023 8:[address] Leigh's note, he suggest vaginal brachytherapy. We do not do this type of radiation here.She will need to see [facility] for this type of radiation. Please let her know and give her a number to call, perhaps the cancer answer line. I do not have a list of which doctors do brachytherapy so that is probably the best. Thanks * Telephone Encounter - Karthik Tobin - 12/31/2022 3:54 PM EDT Patient called stating Dr. Leigh is referring her for radiation treatment. Order/referral in [facility]. She was informed to check with the office prior to scheduling to make sure that we can do the type of treatment needed. Please advise patient. documented in this encounterBarnesville Hospital11-01-2023 History of Present illness Narrative* Memo Leigh MD - 12/30/2022 1:00 PM EDT DATE OF SERVICE: 12/30/2022 PROBLEM: Pricila Hooker presents for follow up of endometrial cancer. DIAGNOSIS: Stage IIIC1 endometrioid type endometrial adenocarcinoma, FIGO grade 2, + LVSI, tumor size 6.5cm MMR deficient tolerating combined chemo and immunotherapy poorly now feeling better off of all therapy, +MLH1 hypermethylation TREATMENT HISTORY: 07/24/2022 - Exam under anesthesia, total laparoscopic hysterectomy,bilateral salpingo-oophorectomy,sentinel lymph node mapping with excision of bilateral pelvic sentinel lymph nodes, and extensive lysis of adhesions. 09/03/2022 - current: Carboplatin AUC 5, Taxol 135mg/m2 + Pembolizumab 200mg Q21 days x5 cycles. Pembrolizumab added in starting cycle 3 (with Dr. Branham in [place]). Therapy on hold due to worsening neuropathy, loss of appetite, weight loss and orthostasis. Radiation delayed due to side effects of systemic treatment. IMAGING: CT CHEST: 12/24/2022 IMPRESSION: No CT evidence of metastatic disease in the thorax. CT ABD/PELVIS: 12/24/2022 IMPRESSION: No metastatic disease in the abdomen/pelvis. LABS: CA 125 (U/mL) Date Value 12/22/2022 14 12/17/2022 14 12/01/2022 13 11/03/2022 15 10/13/2022 14 TUMOR BOARD: Management Options: -Recommend adjuvant treatment with systemic therapy, carbo/taxol +/- pembrolizumab -Referral to genetics HEALTH MAINTENANCE: Last mammogram: 2017 Last colonoscopy: 2021 SURVIVORSHIP VISIT: Needs to schedule GENETIC COUNSELIN08/18/2022 Genetic testing not recommended ADVANCED CARE PLANNING: Does the patient have an advanced directive: Yes [facility] have a copy of the patient's advanced directive: Yes LAST VISIT: 08/12/2022 SUBJECTIVE/ROS: Pricila Hooker reports that she feels okay. She states that she had more significant problems after starting the keytruda she develoepd more weakness joint pain in her shoulder and difficulty with her electrolytes. She does have some neuropathy in her fingers and her toes which has increased. . No vaginal bleeding or discharge. No cough, or chest pain. Positive for shortness of breath on exertion.No abdominal pain, nausea, vomiting, diarrhea, or constipation. No dysuria, grosshematuria, urinary frequency, urinary urgency, or incontinence. No hot flashes or night sweats Patient is not sexually active. No swelling of lower extremities.. Her ECOG performance status is zero (fully active, able to carry on all pre-disease performance without restriction). OBJECTIVE: VITALS: BP 98/67 Pulse 92 Temp 36.5 C (97.7 F) Wt 125.8 kg (277 lb 6.4 oz) SpO2 94% BMI 43.45 kg/m GENERAL: Well-appearing elderly female with no acute distress ABDOMEN: Abdomen soft, non-tender, no hepatosplenomegaly. HEENT: Mucuous membranes are moist. HEAT: RRR Lungs: CTAB Neck: supple, no lymphadenopathy ASSESSMENT: Stage IIIC1 endometrioid type endometrial adenocarcinoma, FIGO grade 2, + LVSI, tumor size 6.5cm, MMR deficient 2. Family h/o colon cancer. 3. Blurry vision PLAN: 1. Discussed her current state. She is feeling better now But seems that her symptoms became much more pronounced with cycle 3 (after adding pembrolizumab). Given this, we discused options: a. Resume same triplet x2 more cycles b. Drop pembro and resume Carboplatin/ Taxol x2 cycles c. Stop all systemic therapy now. If she does not resume pembro could hold for potential second line therapy soul she recur. She may tolerate single agent better. The data on adding pembro is still immature for long-term follow-up. She is interested in completing her 2 cycles of carboplatin/ taxol alone. Can consider reducing Taxolto 135mg/m2 due to neuropathy. -I would also consider vaginal brachytherapy to decrease local vaginal recurrence. [facility] consult placed. 3. Blurry vision-improving we discussed her chemotherapy course it seems that her symptoms became significantly worse after keytruda was added on cycle three given this it might be that the keytruda is the cause of most symptoms however it could also relate to cumulative doses of chemotherapy. The patient's hyperglycemia has improved now, but she has an eye appointment in a couple of days. I encouraged her to keep this in mind given her history of diabetes. 4. Still needs Medical genetics consult for family h/o colon cancer, even though MMRd with +Methylation Memo Leigh MD The previous note from Memo Leigh MD on 08/12/2022 was copied forward and the necessary changes were made above. A copy of this office note and a letter were sent to: - Mukesh Khan MD - Vinh Van MD (PCP) - Nora Branham DO Medical Decision Making: Problems: Moderate: 2+ stable chronic illnesses Data: Unique test result(s) reviewed: 3+ Risk: High: High risk from testing/treatment Medical Decision Making Level: 4 - Moderate By signing my name below, I, Eddie Wilburn, attest that this documentation has been prepared underthe direction and in the presence of Dr. Memo Leigh MD. Electronically Signed: roger Mtz, December 30, 2022 1:42 PM I agree with the Chief Complaint, ROS, and Past Histories independently gathered by the clinical arch support technician and the remaining scribed note accurately describes my personal service to the patient. Memo Leigh MD ' documented in this encounterBarnesville Hospital10-31-2023 Miscellaneous Notes* Telephone Encounter - Karthik Tobin - 12/29/2022 9:54 AM EDT Patient returned call and message relayed. Patient has a 10:00 appt today with [facility]. She did not know name of provider. * Telephone Encounter - Vicky Andino LPN - 12/29/2022 8:56 AM EDT Left message for patient to contact office. Vicky Andino LPN * Telephone Encounter - Nora Branham DO - 12/28/2022 6:57 PM EDT Can let her know the stress test was good, but the echocardiogram showed a decrease in the pumping strength of her heart. Referral to cardiology BHARGAVI please. Nora Branham DO documented in this encounterBarnesville Hospital10-30-2023 History of Present illness Narrative* Julia Mojica CNMT - 12/28/2022 9:30 AM EDT RADIOLOGY SERVICE PROGRESS NOTE SERVICE DATE: 12/28/2022 SERVICE TIME: 10:13 AM PATIENT IDENTITY VERIFICATION COMPLETED USING TWO (2) STANDARD IDENTIFIERS: Name and Date of confirmed by patient verbally and Name and Date of confirmed by identification band FALL SCREENING: Has the patient had 2 falls in the last year or 1 fall with injury or currently using an Ambulatory Assistive Device (Walker, Cane, Wheelchair, Crutches, etc.)? Yes, Patient High Riskfor Falls What interventions were put in place to prevent falls during this visit? Yellow "Falls Risk Wristband" Applied, Offered Assistance with Transfers/Clothing, and Increased Observations by Caregivers PATIENT GENDER DATA: .female : No ALLERGIES: Reviewed and unchanged MEDICATIONS REVIEWED: Not applicable PATIENT RELEVANT IMPLANT DATA REVIEWED: Not Applicable CREATININE: Creatinine Date Value Ref Range Status 12/23/2022 1.11 (H) 0.58 - 0.96 mg/dL Final 12/22/2022 1.13 (H) 0.58 - 0.96 mg/dL Final 12/17/2022 1.11 (H) 0.58 - 0.96 mg/dL Final Estimated Glomerular Filtration Rate Date Value Ref Range Status 12/23/2022 51 (L) >=60 mL/min/1.73m Final Comment: Estimated Glomerular Filtration Rate (eGFR) is calculated using the 2020 CKD-EPI creatinine equation. This equation utilizes serum creatinine, sex, and age as parameters. The creatinine assay has traceable calibration to isotope dilution- mass spectrometry. Refer to KDIGO guidelines for clinical interpretation. In patients with unstable renal function, e.g. those with acute kidney injury, the eGFRmay not accurately reflect actual GFR. eGFR- Date Value Ref Range Status 03/28/2020 >60 Final P.O.C.T. RESULTS: N/A December 28, [address] PERFORMED: No IV SITE: Ambulatory: A peripheral IV was started in the Left hand with a Angio cath: 24 gauge. POST EXAM PIV STATUS: Discontinued PROCEDURE TYPE: NM Stress: 15.8 mCi [id number] was administered IV for Rest Imaging at 9:38 by mm. 47.4 mCi [id number] was administered IV for Stress Imaging at 10:36 by mm. PATIENT DISCHARGED TO: Ambulatory patient, left NM department area. A Diagnostic radioactive procedure has taken place, with no further precautions necessary other than routine body substance precautions. More information regarding radiation safety can be found usingthis link: [email or web address] SIGNATURE: ELLEN Rose PATIENT NAME: Pricila Hooker DATE: December 28, 2022 TIME: 10:13 AM PAGER/CONTACT #: documented in this encounterBarnesville Hospital10-27-2023 Miscellaneous Notes* Telephone Encounter - Vicky Capellan RN - 12/25/2022 2:18 PM EDT Left message regarding reminder for stress test on Wednesday and given instructions documented in this encounterBarnesville Hospital10-26-2023 History of Present illness Narrative* Soifa Corrales RT(R) - 12/24/2022 2:20 PM EDT Radiology Service Progress Note DATE OF SERVICE: December 24, 2022 TIME: 3:59 PM PATIENT IDENTITY VERIFICATION COMPLETED USING TWO (2) STANDARD IDENTIFIERS: Name and Date of confirmed by patient verbally. FALL SCREENING: Has the patient had 2 falls in the last year or 1 fall with injury or currently using an Ambulatory Assistive Device (Walker, Cane, Wheelchair, Crutches, etc.)? No PATIENT GENDER DATA: Female. status: : No status: NO. PATIENT RELEVANT IMPLANT DATA REVIEWED: Yes ALLERGIES: Reviewed and unchanged CONTRAST ALLERGY: NO. EXAM: CT -CONTRAST INDUCED NEPHROPATHY RISK FACTORS: Patient age > 60 years CREATININE: Creatinine Date Value Ref Range Status 12/23/2022 1.11 (H) 0.58 - 0.96 mg/dL Final 12/22/2022 1.13 (H) 0.58 - 0.96 mg/dL Final 12/17/2022 1.11 (H) 0.58 - 0.96 mg/dL Final Estimated Glomerular Filtration Rate Date Value Ref Range Status 12/23/2022 51 (L) >=60 mL/min/1.73m Final Comment: Estimated Glomerular Filtration Rate (eGFR) is calculated using the 2020 CKD-EPI creatinine equation. This equation utilizes serum creatinine, sex, and age as parameters. The creatinine assay has traceable calibration to isotope dilution- mass spectrometry. Refer to KDIGO guidelines for clinical interpretation. In patients with unstable renal function, e.g. those with acute kidney injury, the eGFRmay not accurately reflect actual GFR. eGFR- Date Value Ref Range Status 03/28/2020 >60 Final P.O.C.T. RESULTS: POC done: Yes, See Lab Tab December 24, 2022 TREATMENT: N/A PERIPHERAL IV DATA: Ambulatory: A peripheral IV was started in the power [port accessed by hemoc with a power port accessed by hemAvante [employer]. RADIOLOGY DEPARTMENT: CT; Exam(s) Completed: Chest Abdomen Pelvis SIGNATURE: RT Adi(R) PATIENT NAME: Pricila Hooker DATE: December 24, 2022 TIME: 3:59 PM documented in this encounterBarnesville Hospital10-25-2023 Miscellaneous Notes* Telephone Encounter - Roseann Ignacio - 12/23/2022 11:06 AM EDT Spoke with patient, advising below. Transferred patient to [facility] in [place] and patient is scheduled for 12/28/22. Roseann Ignacio * Telephone Encounter - Nora Branham DO - 12/23/2022 10:22 AM EDT Her EKG today showed improvement. Because of the recent hypotension and her history of diabetes I like to get her set up for a stat stress test. Can take any [facility] location but she is willing to go to but best to have it done as soon as able. Nora Branham DO documented in this encounterBarnesville Hospital10-24-2023 History of Present illness Narrative* Kvng Retana RN - 12/22/2022 1:06 PM EDT Order from Dr. Branham to stop omeprazole. Pt aware and verbalized understanding. Labs drawn STAT. Ptto come in tomorrow for more labs and poss tx. Kvng Retana RN documented in this encounterBarnesville Hospital10-24-2023 History of Present illness Narrative* Nora Branham DO - 12/22/2022 9:02 AM EDT Diagnosis: 1) 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 HPI: The patient is a 77-year-old female with a past medical history significant for hypertension, hyperlipidemia, GERD, type 2 diabetes (diagnosed about age 60; neuropathy), total knee replacement, former smoker and recent diagnosis of endometrial cancer. SURGERY & DATE: 07/24/2022 - Exam under anesthesia, total laparoscopic hysterectomy, bilateral salpingo-oophorectomy, sentinel lymph node mapping with excision of bilateral pelvic sentinel lymph nodes, and extensive lysis of adhesions. PATHOLOGY: A. Odum lymph node, right, biopsy: - Isolated tumor cells involving 1 of 2 lymph nodes; see comment. B. 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 C. Uterus with cervix, right and left fallopian tubes, and ovaries, hysterectomy and bilateral salpingo-oophorectomy: - Cervix: No significant pathologic abnormality. - Endomyometrium: Endometrial endometrioid carcinoma with squamous differentiation, FIGO grade 2, invading outer myometrium (18 mm out of 19 mm, 95%) and showing extensive/multifocal lymphovascular invasion and the microcystic, elongated, and fragmented (MELF) pattern of invasion; see comment and synoptic report. - Serosa: No significant pathologic abnormality. - Bilateral ovaries: Adhesions. - Right fallopian tube: Hematosalpinx, no definitive carcinoma. - Left fallopian tube: Metastatic carcinoma. Mismatch repair (MMR) interpretation: Deficient mismatch repair (dMMR) Results Mismatch Repair Protein Immunohistochemistry Results: MLH1: Loss of Nuclear Expression (subclonal/focal loss) PMS2: Loss of Nuclear Expression (subclonal/focal loss) MSH2: Normal/Intact Nuclear Expression MSH6: Normal/Intact Nuclear Expression IMAGING: CT ABD/PELVIS: 06/16/2022 IMPRESSION: 1. Findings compatible with cystitis. 2. Approximately 8.5 cm tubular/serpiginous cystic lesion in the right adnexal region suspect for hydrosalpinx though right ovarian cystic lesion not excluded with certainty. Mild infiltration of thesurrounding fat raises suspicion for the possibility of superinfection. A few small bowel loops in the pelvis appear tethered around this right adnexal cystic lesion and a short segment of sigmoid colon abuts the posterior aspect of this right adnexal lesion. 3. Small volume pelvic free fluid. 4. Heterogeneous appearance of the uterus potentially related to fibroids. Further evaluation with dedicated pelvic ultrasound would be of value. CXR: 07/22/2022 IMPRESSION: Left basilar mild atelectasis. TUMOR BOARD: Management Options: -Recommend adjuvant treatment with systemic therapy, carbo/taxol +/- pembrolizumab -Referral to genetics Per initial consultation here: No vaginal discharge or bleeding. Bowels moving regularly. Good appetite. Pain is gone. Subjectively voiding to completion. Fingertip and toes numb. Had it approximately 3 years. Orthostasis if stands quickly. Balance has been "off" for about 6 months. Used WC to come in from [facility]. Uses cane and walker in the home. Lives in basement of sister's house. Capable of all ADLs independently. Uses shower chair. She and sister share cooking. Drives. Low back pain can limit her walking--symptoms are consistent with spinal stenosis. Current therapy: 1) Paclitaxel and carboplatin and pembrolizumab. First 2 cycles without pembrolizumab. Presents for ongoing oncologic management. Interim history: Had EGD. Results noted. ?Gastroparesis. Stopped BP meds. Still getting orthostasis. Appetite is still decreased but she is able to eat better since adding omeprazole. No further reflux. She is drinking plenty of water. Weight down. Occasional diarrhea, but not every day. 3-4 watery BMs on days with diarrhea, but only 1-2 times per week. Vision still blurred. Tingling in fingers stable. Feet neuropathy stable. PMH, medications and allergies personally reviewed by me today. Any changes documented in appropriate section. PHYSICAL EXAM: Vitals: Blood pressure 83/56, pulse 100, temperature 36 C (96.8 F), temperature source Temporal, weight 123.8 kg (273 lb), SpO2 93 %. Fatigued-appearing and in no acute distress. EYES: Sclerae are anicteric bilaterally. No conjunctival injection. LYMPHATIC: There is no palpable cervical, supraclavicular, adenopathy. RESPIRATORY: Inspiratory breath sounds are of diminished intensity in all thompson. No rales, wheezesor rhonchi. CARDIOVASCULAR: Rhythm is regular and tachycardic. ABDOMEN: The abdomen is nondistended. No tenderness. LABS: Component Latest Ref Rng & Units 12/22/2022 WBC 3.70 - 11.00 k/uL 9.25 RBC 3.90 - 5.20 m/uL 3.22 (L) Hemoglobin 11.5 - 15.5 g/dL 10.4 (L) Hematocrit 36.0 - 46.0 % 31.8 (L) MCV 80.0 - 100.0 fL 98.8 MCH 26.0 - 34.0 pg 32.3 MCHC 30.5 - 36.0 g/dL 32.7 RDW-CV 11.5 - 15.0 % 17.8 (H) Platelet Count 150 - 400 k/uL 139 (L) MPV 9.0 - 12.7 fL 10.2 Neut% % 64.4 Abs Neut (ANC) 1.45 - 7.50 k/uL 5.95 Lymph% % 17.1 Abs Lymph 1.00 - 4.00 k/uL 1.58 Montgomery% % 8.0 Abs Montgomery <0.87 k/uL 0.74 Eosin% % 9.6 Abs Eosin <0.46 k/uL 0.89 (H) Baso% % 0.4 Abs Baso <0.11 k/uL 0.04 Immature Gran % % 0.5 IMMATURE GRANS (ABS) <0.10 k/uL 0.05 NRBC /100 WBC 0.0 Absolute nRBC <0.01 k/uL <0.01 DTYPE Auto ASSESSMENT/PLAN: (C54.1) Endometrial cancer (HCC) (primary encounter diagnosis) (G62.9) Neuropathy -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 -Her KPS is 60%. -Significant comorbid conditions including type 2 diabetes with pre-existing sensory neuropathy. She had impaired gait and mobility from spinal stenosis as well. Nonetheless she stood to benefit significantly from adjuvant therapy. -Adjuvant therapy with carboplatin, paclitaxel and pembrolizumab based on the recently reported results of the NRG-GY018 trial. -Pembrolizumab was added with cycle #3. -Received 5 cycles. Therapy on hold due to worsening neuropathy, loss of appetite, weight loss and orthostasis. -Hypomagnesemic despite oral replacement. -Hypotensive and tachycardic despite stopping ACEI. -Diagnosed with macular edema. Has appointment with retina specialist. Plan: -EKG today. -IV hydration in the office today. -Cancel immunotherapy for now. -Continue slow Mag BID. -Will refer for vaginal brachytherapy once over acute side effects. ADDENDUM: EKG demonstrated inverted P waves in most leads. There was nonspecific T wave abnormalityand the QTc was 456 ms. Magnesium was 1.2. Patient received IV magnesium. We will have her stop proton pump inhibitor as it may be impeding absorption of magnesium. Check BNP and troponin SAT. Obtainechocardiogram and referral to cardiology. Portions of this documentation were copied and pasted from previous office visit notes in order to provide a cohesive continuity of the history. The note has been reviewed and edited and updated as necessary. I spent a total of 30 minutes on the date of the service which included preparing to see the patient, [id number] patient care, completing clinical documentation, obtaining and/or reviewing separately obtained history, performing a medically appropriate examination, counseling and educating the pat ient/family/caregiver, ordering medications, tests, or procedures, communicating with other HCPs (not separately reported), and communicating results to the patient/family/caregiver. Nora Branham DO documented in this encounterBarnesville Hospital10-24-[facility]23 History of Present illness Narrative* Bridgette Bryan RN - 12/22/2022 7:08 AM EDT Patient is here for IVAD port flush/blood draw per [facility] protocol. IVAD is located in left upper chest. Site cleansed with Chloraprep IVAD accessed with a #20 gauge 3/4" non-coring Gripper needle Flush with 5cc's Normal Saline. Blood Return: Good. 10 cc's blood aspirated and discarded. Blood drawn for CBC and CMP. Flushed with: 20 ml Normal Saline and 5 ml Heparin Lock Flush. Non-coring needle removed. Paper tape applied to puncture site. Site negative for redness, edema or tenderness. Patient tolerated procedure well. documented in this encounterBarnesville Hospital10-17-2023 Instructions* Patient Instructions* Nora Branham DO - 12/15/2022 10:38 AM EDT Stop lisinopril. Stop meloxicam (Mobic) pain medication for shoulder. 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 HPI: The patient is a 77-year-old female with a past medical history significant for hypertension, hyperlipidemia, GERD, type 2 diabetes (diagnosed about age 60; neuropathy), total knee replacement, former smoker and recent diagnosis of endometrial cancer. SURGERY & DATE: 07/24/2022 - Exam under anesthesia, total laparoscopic hysterectomy, bilateral salpingo-oophorectomy, sentinel lymph node mapping with excision of bilateral pelvic sentinel lymph nodes, and extensive lysis of adhesions. PATHOLOGY: A. Odum lymph node, right, biopsy: - Isolated tumor cells involving 1 of 2 lymph nodes; see comment. B. 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 C. Uterus with cervix, right and left fallopian tubes, and ovaries, hysterectomy and bilateral salpingo-oophorectomy: - Cervix: No significant pathologic abnormality. - Endomyometrium: Endometrial endometrioid carcinoma with squamous differentiation, FIGO grade 2, invading outer myometrium (18 mm out of 19 mm, 95%) and showing extensive/multifocal lymphovascular invasion and the microcystic, elongated, and fragmented (MELF) pattern of invasion; see comment and synoptic report. - Serosa: No significant pathologic abnormality. - Bilateral ovaries: Adhesions. - Right fallopian tube: Hematosalpinx, no definitive carcinoma. - Left fallopian tube: Metastatic carcinoma. Mismatch repair (MMR) interpretation: Deficient mismatch repair (dMMR) Results Mismatch Repair Protein Immunohistochemistry Results: MLH1: Loss of Nuclear Expression (subclonal/focal loss) PMS2: Loss of Nuclear Expression (subclonal/focal loss) MSH2: Normal/Intact Nuclear Expression MSH6: Normal/Intact Nuclear Expression IMAGING: CT ABD/PELVIS: 06/16/2022 IMPRESSION: 1. Findings compatible with cystitis. 2. Approximately 8.5 cm tubular/serpiginous cystic lesion in the right adnexal region suspect for hydrosalpinx though right ovarian cystic lesion not excluded with certainty. Mild infiltration of thesurrounding fat raises suspicion for the possibility of superinfection. A few small bowel loops in the pelvis appear tethered around this right adnexal cystic lesion and a short segment of sigmoid colon abuts the posterior aspect of this right adnexal lesion. 3. Small volume pelvic free fluid. 4. Heterogeneous appearance of the uterus potentially related to fibroids. Further evaluation with dedicated pelvic ultrasound would be of value. CXR: 07/22/2022 IMPRESSION: Left basilar mild atelectasis. TUMOR BOARD: Management Options: -Recommend adjuvant treatment with systemic therapy, carbo/taxol +/- pembrolizumab -Referral to genetics Per initial consultation here: No vaginal discharge or bleeding. Bowels moving regularly. Good appetite. Pain is gone. Subjectively voiding to completion. Fingertip and toes numb. Had it approximately 3 years. Orthostasis if stands quickly. Balance has been "off" for about 6 months. Used WC to come in from [facility]. Uses cane and walker in the home. Lives in basement of sister's house. Capable of all ADLs independently. Uses shower chair. She and sister share cooking. Drives. Low back pain can limit her walking--symptoms are consistent with spinal stenosis. Current therapy: 1) Paclitaxel and carboplatin and pembrolizumab. First 2 cycles without pembrolizumab. Presents for ongoing oncologic management. Interim history: Had EGD. Results noted. ?Gastroparesis. Appetite is still decreased but she is able to eat better since adding omeprazole. She is drinking plenty of water. Weight back up a few pounds. Lisinopril was increased last office visit due to hypertension. Still getting symptoms of orthostasis but not as frequent. Vision still blurred. Tingling in fingers. Feet neuropathy stable now. PMH, medications and allergies personally reviewed by me today. Any changes documented in appropriate section. PHYSICAL EXAM: Vitals: Blood pressure 82/59, pulse 99, temperature 36.1 C (97 F), temperature source Temporal, weight 127 kg (280 lb), SpO2 95 %. Pale and fatigued-appearing and in no acute distress. EYES: Sclerae are anicteric bilaterally. No conjunctival injection. LYMPHATIC: There is no palpable cervical, supraclavicular, adenopathy. RESPIRATORY: Inspiratory breath sounds are of diminished intensity in all thompson. No rales, wheezesor rhonchi. CARDIOVASCULAR: Rhythm is regular and tachycardic. ABDOMEN: The abdomen is nondistended. No tenderness. LABS: Component Latest Ref Rng & Units 11/03/2022 11/11/2022 12/01/2022 12/15/2022 Protein, Total 6.3 - 8.0 g/dL 6.2 (L) 7.0 5.9 (L) Albumin 3.9 - 4.9 g/dL 3.8 (L) 4.0 3.6 (L) Calcium 8.5 - 10.2 mg/dL 9.1 9.2 8.8 9.2 Bilirubin, Total 0.2 - 1.3 mg/dL 0.3 0.6 0.5 Alkaline Phosphatase 34 - 123 U/L 78 83 65 AST 13 - 35 U/L 14 16 17 ALT 7 - 38 U/L 13 18 20 Glucose 74 - 99 mg/dL 281 (H) 313 (H) 227 (H) 184 (H) BUN 7 - 21 mg/dL 18 21 14 25 (H) Creatinine 0.58 - 0.96 mg/dL 0.95 0.92 1.00 (H) 1.40 (H) Sodium 136 - 144 mmol/L 136 134 (L) 138 136 Potassium 3.7 - 5.1 mmol/L 4.7 4.7 4.7 4.4 Chloride 97 - 105 mmol/L 100 98 103 97 CO2 22 - 30 mmol/L 24 22 23 24 Anion Gap 9 - 18 mmol/L 12 14 12 15 eGFR >=60 mL/min/1.73m 62 65 58 (L) 39 (L) ASSESSMENT/PLAN: (C54.1) Endometrial cancer (HCC) (primary encounter diagnosis) (G62.9) Neuropathy -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 -Her KPS is 60%. -Significant comorbid conditions including type 2 diabetes with pre-existing sensory neuropathy. She has impaired gait and mobility from spinal stenosis as well. Nonetheless she stood to benefit significantly from adjuvant therapy. -Adjuvant therapy with carboplatin, paclitaxel and pembrolizumab based on the recently reported results of the NRG-GY018 trial. -Pembrolizumab was added with cycle #3. -Received 5 cycles. Therapy on hold due to worsening neuropathy, loss of appetite, weight loss and orthostasis. -Hypomagnesemic despite oral replacement. -Hypotensive today. -JACY likely secondary to hypotension, continued ADA inhibitor and Mobic. Plan: -IV hydration in the office today. -Stop lisinopril and Mobic. -Continue slow Mag BID. -Has scheduled ophthalmology evaluation on Wednesday. -Will refer for vaginal brachytherapy once over acute side effects. -Potentially resume pembrolizumab next week if above improved. Portions of this documentation were copied and pasted from previous office visit notes in order to provide a cohesive continuity of the history. The note has been reviewed and edited and updated as necessary. I spent a total of 20 minutes on the date of the service which included preparing to see the patient, [id number] patient care, completing clinical documentation, obtaining and/or reviewing separately obtained history, performing a medically appropriate examination, counseling and educating the pat ient/family/caregiver, ordering medications, tests, or procedures, communicating with other HCPs (not separately reported), and communicating results to the patient/family/caregiver. Nora Branham DO documented in this encounterBarnesville Hospital10-17-2023 History of Present illness Narrative* Bridgette Bryan RN - 12/15/2022 7:31 AM EDT Patient is here for IVAD port flush/blood draw per [facility] protocol. IVAD is located in left upper chest. Site cleansed with Chloraprep IVAD accessed with a #20 gauge 3/4" non-coring Gripper needle Flush with 5cc's Normal Saline. Blood Return: Good. 10 cc's blood aspirated and discarded. Blood drawn for BMP. Flushed with: 20 ml Normal Saline and 5 ml Heparin Lock Flush. Non-coring needle left intact for possible further therapy. Opsite applied to puncture site. Site negative for redness, edema or tenderness. Patient tolerated procedure well. documented in this encounterBarnesville Hospital10-06-2023 Instructions* Patient Instructions* Hood Thompson PA-C - 12/04/2022 9:51 AM EDT -Begin omeprazole, in addition to dietary and lifestyle medications as discussed -Recommend daily yogurt or probiotic The following instructions are important for you related to your office visit today with the [facility]. INSTRUCTIONS FOR PEPTIC ULCER DISEASE - ESOPHAGITIS I discussed with you the findings of your upper endoscopy. Your upper endoscopy demonstrated esophagitis Esophagitis may be a form of peptic irritation, with acid moving from the stomach to the esophagus (gastroesophageal reflux) Factors that increase acid production include smoking and stress. If you smoke, stopping smoking will often cure these issues without needing other medications. Over the counter medications including antiacids and acid reducing medications including H2 blockers (Zantac and the like) and proton pump inhibitors (prilosec, prevacid and the like) neutralize or prevent acid production. Prescription strength proton pump inhibitors (PPIs) may be necessary if your symptoms persist. Carafate may be added to PPI treatment in refractory cases. Avoiding smoking, alcohol and antiinflammatory medications are important in the successful treatment of reflux esophagitis and peptic diseases. Other factors that contribute to GERD and esophagitis are being overweight, eating large meals before laying down and certain foods. Weight loss will help improve many GERD complaints. Remaining upright after eating large meals and having a small supper will also help symptoms. Avoiding food that contribute to reflux - chocolate, caffeine, cheddar cheese may also help. Follow up upper endoscopy may be recommended to assure healing of the esophagus. New or worsening symptoms such are epigastric pain, burning, difficulty swallowing or food stickingshould be relayed to your physician. Feeling full early after eating, or black, tarry, foul smelling stools are also worrisome. If you have any difficulties or concerns, you should contact our office immediately. If you note any additional difficulties, questions, or concerns, you should contact our office immediately @ [phone] and ask to be transferred to the General Surgery department. documented in this encounterBarnesville Hospital10-06-2023 History of Present illness Narrative* Hood Thompson PA-C - 12/04/2022 9:23 AM EDT FOLLOW UP VISIT - ENDOSCOPY NAME: Pricila Birdges [facility] NO.: [id number] DATE OF SERVICE: 12/04/2022 : 1945 REFERRING PHYSICIAN: Vinh Van MD Pricila is a patient I am following for dysphagia. Dr. Horta performed upper endoscopy on 11/25/22. The patient was found to have irregular Z-line and a large amount of food residue in the stomach. Pathology demonstrated: FINAL DIAGNOSIS A. Stomach, antrum, biopsy: - Chronic active gastritis with reactive epithelial changes. - Helicobacter pylori stain pending, the result will be reported as an addendum. B. Esophagogastric junction, biopsy: - Active esophagitis. -GMS stain pending, the result will be reported as an addendum. C. Esophagus, mid, biopsy: - Hyperplastic squamous epithelium with focal parakeratosis. Gross Description A. ANTRUM (STOMACH) BIOPSY Received in formalin is one piece of elam, soft tissue measuring 0.2 x 0.2 x 0.2 cm. Totally submitted in one cassette. B. ESOPHAGOGASTRIC JUNCTION BIOPSY Received in formalin are two pieces of elam-white, soft tissue aggregating to 0.6 x 0.2 x 0.2 cm. Totally submitted in one cassette. C. ESOPHAGUS MID BIOPSY Received in formalin are multiple pieces of elam-white, soft tissue aggregating to 0.7 x 0.2 x 0.1 cm. Totally submitted in one cassette. Gross examination performed at [facility], [address] [place] [address] November 26, 2022 12:49 AM Performing Lab Diagnostic interpretation performed at [facility], [address] [place] [address] CLIA# [id number] [employer] Coach: Kranthi Ruby M.D. Addendum GMS stain performed on block B is negative for fungal organisms. All controls were appropriate. H pylori stain pending as of visit time-this has returned in interim and was negative The patient notes no new complaints since the procedure. Confirmed with patient that she was fasting 6+ hours prior to EGD. VITALS: Blood pressure 142/88, pulse 102, temperature 36.6 C (97.8 F), SpO2 98 %. General: patient is alert, cooperative, pleasant and in no acute distress On examination, the abdomen is benign. Assessment IMPRESSION: GERD and gastritis. Food residue in stomach-suspect delayed gastric emptying secondary to DM and/or medications PLAN: The operative findings and pathology report were reviewed with the patient, and the patient has hadthe opportunity to ask questions and have questions answered. If the patient notes any problems or changes in bowel function, the patient should contact me immediately. Otherwise I recommend follow up endoscopy as symptoms dictate Recommend short-term treatment with PPI, in addition to dietary and lifestyle modifications as discussed. Discussed workup for gastric emptying issues based on large amount of food residue in stomach. Patient declines to pursue any further workup at this time. Patient verbalized understanding of all above and agreed with the plan Diagnoses: (K21.00) Gastroesophageal reflux disease with esophagitis without hemorrhage (primary encounter diagnosis) (K29.30) Chronic superficial gastritis without bleeding I spent a total of 23 minutes on the date of the service which included preparing to see the patient, [id number] patient care, completing clinical documentation, obtaining and/or reviewing separately obtained history, counseling and educating the patient/family/caregiver, ordering medications, tobi ts, or procedures, independently interpreting results (not separately reported), and communicating results to the patient/family/caregiver. Hood Thompson PA-C documented in this encounterBarnesville Hospital09-27-2023 Nurse Note* Leanne Ash RN - 11/25/2022 8:33 AM EDT Arrived in phase II via cart. Left lateral position. Sedated, but responds to verbal stimuli. Colornormal; skin warm and dry. Respirations wnl and unlabored. Abdomen soft and with + bowel sounds in quads X 4. Patient resting comfortably. Family at bedside. Leanne Ash RN documented in this encounterBarnesville Hospital09-27-2023 History and physical note * Almaz Horta MD - 11/25/2022 8:00 AM EDT UPDATED PROCEDURAL SEDATION HISTORY AND PHYSICAL EXAMINATION SERVICE DATE: 11/25/2022 SERVICE TIME: 7:56 PHYSICAL EXAM MUST BE COMPLETED ON ADMISSION PROCEDURE: EGD, possible biopsies Procedure Indications: dysphagia The History and Physical (completed in the past 30 days) has been reviewed and the patient has beenexamined. The contents accurately reflect the patient's condition with the following additions or revisions since the H&P was completed. ASA Class: ASA Class:: Patient with severe systemic disease Examination indicates no changes. AIRWAY: Airway Visualization of Uvula: Yes Mouth opening greater than 2 fingerbreadths: Yes Neck Full Range of Motion: Yes LUNGS: Lungs clear to auscultation CARDIAC: Regular rhythm,Regular rate Provisional Diagnosis/Treatment Plan: EGD possible biopsies SEDATION GOAL: Moderate This H&P can be found in the Electronic Medical Record . SIGNATURE: Almaz Horta MD PATIENT NAME: Pricila Johnsonuire DATE: November 25, 2022 TIME: 7:56 AM Source Note - Almaz Horta MD - 11/25/2022 8:00 AM EDT HISTORY AND PHYSICAL Pricila Bridges So 1945 REFERRING PHYSICIAN: Nora Branham DO CHIEF COMPLAINT: Consult (EGD/ Dysphagia) HPI: The patient is a 76 year old female referred for endoscopy. Pricila notes recent complaints of dysphagia and food sticking, worse with dry foods. Patient denies any change in bowel habits, weightchanges, blood in stools, black tarry stools or abdominal pain. Denies family history of colon issues. Pricila has undergone prior endoscopy. Had most recent colonoscopy 12/02/21 with removal of benign polyp. No prior EGD noted. Patient denies chest pain, shortness of breath or recent hospitalizations. Denies problems with sedation in the past. PAST MEDICAL HISTORY PAST MEDICAL HISTORY Diagnosis Date Acute cholecystitis 01/04/2007 Benign neoplasm of colon Diabetes mellitus without mention of complication Endometrial cancer (HCC) GERD (gastroesophageal reflux disease) Hemorrhoids Hypercholesteremia Hypertension Neuropathy Osteoarthritis of multiple joints PAST SURGICAL HISTORY PAST SURGICAL HISTORY Procedure Laterality Date ABDOMINAL SURGERY HX ARTHRP KNE CONDYLE&PLATU MEDIAL&LAT COMPARTMENTS 05/11/2011 Knee replacement, total right ARTHRP KNE CONDYLE&PLATU MEDIAL&LAT COMPARTMENTS 01/2011 left CATARACT EXTRACTION HX Left COLONOSCOPY FLX DX W/COLLJ SPEC WHEN PFRMD 12/28/2007 Colonoscopy COLONOSCOPY FLX DX W/COLLJ SPEC WHEN PFRMD 06/17/2012 Colonoscopy COLONOSCOPY FLX DX W/COLLJ SPEC WHEN PFRMD 11/05/2017 Colonoscopy EYE SURGERY HX JOINT REPLACEMENT HX LAPS SURG CHOLECYSTECTOMY W/CHOLANGIOGRAPHY 01/04/2007 LAPS TOTAL HYSTERECT 250 GM/< W/RMVL TUBE/OVARY 07/24/2022 Exam under anesthesia, total laparoscopic hysterectomy, bilateral salpingo- oophorectomy, sentinel lymph node mapping with excision of bilateral pelvic sentinel lymph nodes, and extensive lysis of adhesions. CURRENT MEDICATIONS Current Outpatient Medications Medication Sig silver sulfADIAZINE (SILVADENE) 1 % cream Apply to affected area once daily. Magnesium Chloride (SLOW-MAG) 71.5 mg TbEC Take 1 tablet by mouth twice daily. iv contrast (will be provided with radiology test) CT Chest W -Inject, intravenously, once for 1 dose.No IV access, insert saline lock prior to the beginning of sedation, infusion, injection of imaging exam. Discontinue saline lock post exam. If Pt. has a central line or IVAD, may access for administration according to line specific nursing protocol. Once exam is complete flush line and de-accessaccording to line specific nursing protocol in the CT contrast administration guidelines link. iv contrast (will be provided with radiology test) CT ABD/PEL -Inject, intravenously, once for 1 dose.No IV access, insert saline lock prior to the beginning of sedation, infusion, injection of imaging exam. Discontinue saline lock post exam. If Pt. has a central line or IVAD, may access for administration according to line specific nursing protocol. Once exam is complete flush line and de-accessaccording to line specific nursing protocol in the CT contrast administration guidelines link. enteric contrast (will be provided with radiology test) For CT ABD/PEL W IVCON Routine order Administer, As Directed One Time Only, via Oral, Rectal, both Oral and Rectal, Enteric Tube, Stoma or Indwelling Catheter, Enteric Contrast as designated per enteric contrast guidelines lisinopril (ZESTRIL) 5 mg tablet Take 2 tablets by mouth once daily. pembrolizumab (KEYTRUDA) 25 mg/mL injection Inject 200 mg intravenously every 3 weeks for 16 doses. glimepiride (AMARYL) 4 mg tablet Take 1 tablet by mouth twice daily with meals. lidocaine-prilocaine (EMLA) 2.5-2.5 % cream Apply to affected area as needed. dexAMETHasone (DECADRON) 4 mg tablet Take 5 tablets 12 and 6 hours prior to chemotherapy treatment. ondansetron (ZOFRAN) 8 mg tablet Take 1 tablet by mouth every 8 hours as needed for nausea/vomiting. iv contrast (will be provided with radiology test) CT Chest ABD/PEL-Inject, intravenously, once for1 dose.No IV access, insert saline lock prior to the beginning of sedation, infusion, injection of imaging exam. Discontinue saline lock post exam. If Pt. has a central line or IVAD, may access for administration according to line specific nursing protocol. Once exam is complete flush line and de-access according to line specific nursing protocol in the CT contrast administration guidelines link. enteric contrast (will be provided with radiology test) For CT CHESTABD/PEL W IVCON Routine order Administer, As Directed One Time Only, via Oral, Rectal, both Oral and Rectal, Enteric Tube, Stoma orIndwelling Catheter, Enteric Contrast as designated per enteric contrast guidelines acetaminophen (TYLENOL EXTRA STRENGTH) 500 mg tablet Take 2 tablets by mouth every 6 hours as needed for pain. senna (SENOKOT) 8.6 mg tab Take 1 tablet by mouth twice daily. (Patient taking differently: Take 8.6 mg by mouth twice daily as needed.) atorvastatin (LIPITOR) 40 mg tablet TAKE 1 TABLET BY MOUTH ONCE DAILY AT BEDTIME FOR CHOLESTEROL meloxicam (MOBIC) 15 mg tablet Take 1 tablet by mouth once daily. With food. metFORMIN (GLUCOPHAGE) 500 mg tablet Take 2 tablets by mouth twice daily with meals. . Lancets lancets Test one time daily, Insulin Dep? No E11.9 DM 2 alcohol swabs (ALCOHOL PADS) Test one time daily, Insulin Dep? No E11.9 DM 2 blood sugar diagnostic (BLOOD GLUCOSE TEST) test strip Test one time daily, Insulin Dep? No E11.9 DM 2 dulaglutide (TRULICITY) 3 mg/0.5 mL pen injector Inject 3 mg subcutaneously one time a week. Patient Assistance Medication. gabapentin (NEURONTIN) 100 mg capsule Take 1 capsule by mouth three times daily for 90 days. amitriptyline (ELAVIL) 50 mg tablet Take 1 tablet by mouth daily at bedtime. No current facility-administered medications for this visit. ALLERGIES: Adhesive Tape (Rosins) PERSONAL HISTORY: SOCIAL HISTORY Social History Tobacco Use Smoking status: Former Packs/day: 0.50 Years: 20.00 Additional pack years: 0.00 Total pack years: 10.00 Types: Cigarettes Quit date: 11/05/1977 Years since quittin.0 Smokeless tobacco: Never Vaping Use Vaping Use: Never used Substance Use Topics Alcohol use: No Drug use: No FAMILY HISTORY: FAMILY HISTORY FAMILY HISTORY Problem Relation Age of Onset Heart Mother irregular heart rate Colon Cancer Mother Stroke Mother Heart Father from heart attack Colon Cancer Maternal Grandfather REVIEW OF SYMPTOMS: The review of systems data was entered by the nurse and reviewed by va Nursing Notes: Tia Nelson LPN 11/05/2022 2:51 PM Signed REVIEW OF SYSTEMS: General: The patient NOTES fatigue, denies weight loss, denies weight gain, NOTES feeling hot, and NOTES feelings of cold. Eyes: The patient denies glaucoma, NOTES eye injury/surgery, wears glasses or contacts. Ear/Nose/Throat: The patient NOTES allergies, denies hayfever, denies ear infections, and denies bloody noses. Cardiovascular: The patient denies chest pain, denies heart disease, denies high blood pressure,denies cardiac stent, denies prior heart attack, denies irregular heart beat, denies high cholesterol, denies poor circulation, denies heart failure, other cardiac issues, denies claudication, NOTES coldfeet, denies peripheral arterial stent. Respiratory: The patient denies tuberculosis, denies pneumonia, denies frequent cough, denies pulmonary embolism, NOTES shortness of breath, and denies coughing up blood. Gastrointestinal: The patient NOTES difficulty swallowing, denies acid reflux, denies ulcers, denies vomiting, denies jaundice/hepatitis, NOTES gallbladder problems, denies black or tarry stools, NOTES hemorrhoids, denies bleeding from rectum, denies diverticulitis, denies constipation, denies diarrhea, denies loss of stool control, and denies hernias. Kidney/Bladder: The patient denies kidney stones, NOTES urine infections, and denies bloody urine. Skin: The patient denies a history of skin cancer, denies bleeding/changing moles, and denies a history of skin rash. Neurologic: The patient denies a history of epilepsy/convulsions, denies headaches, denies head/spinal injuries, and denies stroke/TIA. Psychiatric: The patient denies psychiatric medications, denies depression, and denies voices, denies substance abuse. Endocrine: The patient denies thyroid disorders, NOTES diabetes, and denies hormonal problems. Hematologic: The patient NOTES a history of bruising, denies bleeding, and denies anemia, denies blood clots. Infections: The patient NOTES a history of measles and mumps, NOTES rheumatic fever, and denies sexually transmitted diseases. Musculoskeletal: The patient NOTES back pain/injury, NOTES back problems, denies sciatica, noteS knee/foot trouble, NOTES arthritis, or denies gout. When was patient's last Mammogram screening? 2020 Last Colonoscopy: 2021 Tia Nelson LPN I have confirmed and edited as necessary, the PFSH and ROS obtained by others. Hood Thompson PA-C PHYSICAL EXAMINATION: General: The patient is 76 year old female, well nourished, well hydrated in no acute distress. Thepatient is oriented to time, place, and person. VITALS: Blood pressure 130/76, pulse 106, temperature 36.4 C (97.5 F), height 170.2 cm (5' 7"), weight 131.9 kg (290 lb 12.8 oz), SpO2 94 %. Body mass index is 45.55 kg/m . HEENT: Normal cephalic, ataumatic, pupils are equally round, sclera are anicteric, mucous membranesare moist, oropharynx is clear. Neck has no masses, asymmetry or lymphadenopathy. Respiratory: Clear to auscultation and percussion. Normal respiratory excursion and pattern. Cardiac: Examination is regular rate and rhythm. Normal S1/S2 Abdominal exam: Soft, nontender, with no palpable masses. No hepatosplenomegaly. No palpable hernias. Extremities: no clubbing, cyanosis or edema. No adenopathy. LABORATORY VALUES: As Noted RADIOLOGIC STUDIES: As Noted Assessment IMPRESSION: dysphagia, food sticking PLAN: I have reviewed my findings with the surgeon. Will plan for upper endoscopy. We discussed therisks and benefits of the planned endoscopy. I have informed the patient that complications can occur including failure to complete the endoscopy and perforation. The patient had the opportunity to ask questions concerning the planned endoscopy. My staff has also explained the procedure to the patient in understandable terms and has given the patient printed material concerning the procedure. Thepatient freely consents to surgery. Diagnoses: (R13.10) Dysphagia, unspecified type (primary encounter diagnosis) Consultation requested by Dr. Branham for an opinion regarding dysphagia. My final recommendations will be communicated back to the requesting physician by way of shared Medical record or letter to requesting physician via [place] mail. Hood Thompson PA-C * Almaz Horta MD - 11/25/2022 8:00 AM EDT HISTORY AND PHYSICAL Pricila Johnsonuire 1945 REFERRING PHYSICIAN: Nora Branham DO CHIEF COMPLAINT: Consult (EGD/ Dysphagia) HPI: The patient is a 76 year old female referred for endoscopy. Nadiareza notes recent complaints of dysphagia and food sticking, worse with dry foods. Patient denies any change in bowel habits, weightchanges, blood in stools, black tarry stools or abdominal pain. Denies family history of colon issues. Pricila has undergone prior endoscopy. Had most recent colonoscopy 12/02/21 with removal of benign polyp. No prior EGD noted. Patient denies chest pain, shortness of breath or recent hospitalizations. Denies problems with sedation in the past. PAST MEDICAL HISTORY PAST MEDICAL HISTORY Diagnosis Date Acute cholecystitis 01/04/2007 Benign neoplasm of colon Diabetes mellitus without mention of complication Endometrial cancer (HCC) GERD (gastroesophageal reflux disease) Hemorrhoids Hypercholesteremia Hypertension Neuropathy Osteoarthritis of multiple joints PAST SURGICAL HISTORY PAST SURGICAL HISTORY Procedure Laterality Date ABDOMINAL SURGERY HX ARTHRP KNE CONDYLE&PLATU MEDIAL&LAT COMPARTMENTS 05/11/2011 Knee replacement, total right ARTHRP KNE CONDYLE&PLATU MEDIAL&LAT COMPARTMENTS 01/2011 left CATARACT EXTRACTION HX Left COLONOSCOPY FLX DX W/COLLJ SPEC WHEN PFRMD 12/28/2007 Colonoscopy COLONOSCOPY FLX DX W/COLLJ SPEC WHEN PFRMD 06/17/2012 Colonoscopy COLONOSCOPY FLX DX W/COLLJ SPEC WHEN PFRMD 11/05/2017 Colonoscopy EYE SURGERY HX JOINT REPLACEMENT HX LAPS SURG CHOLECYSTECTOMY W/CHOLANGIOGRAPHY 01/04/2007 LAPS TOTAL HYSTERECT 250 GM/< W/RMVL TUBE/OVARY 07/24/2022 Exam under anesthesia, total laparoscopic hysterectomy, bilateral salpingo- oophorectomy, sentinel lymph node mapping with excision of bilateral pelvic sentinel lymph nodes, and extensive lysis of adhesions. CURRENT MEDICATIONS Current Outpatient Medications Medication Sig silver sulfADIAZINE (SILVADENE) 1 % cream Apply to affected area once daily. Magnesium Chloride (SLOW-MAG) 71.5 mg TbEC Take 1 tablet by mouth twice daily. iv contrast (will be provided with radiology test) CT Chest W -Inject, intravenously, once for 1 dose.No IV access, insert saline lock prior to the beginning of sedation, infusion, injection of imaging exam. Discontinue saline lock post exam. If Pt. has a central line or IVAD, may access for administration according to line specific nursing protocol. Once exam is complete flush line and de-accessaccording to line specific nursing protocol in the CT contrast administration guidelines link. iv contrast (will be provided with radiology test) CT ABD/PEL -Inject, intravenously, once for 1 dose.No IV access, insert saline lock prior to the beginning of sedation, infusion, injection of imaging exam. Discontinue saline lock post exam. If Pt. has a central line or IVAD, may access for administration according to line specific nursing protocol. Once exam is complete flush line and de-accessaccording to line specific nursing protocol in the CT contrast administration guidelines link. enteric contrast (will be provided with radiology test) For CT ABD/PEL W IVCON Routine order Administer, As Directed One Time Only, via Oral, Rectal, both Oral and Rectal, Enteric Tube, Stoma or Indwelling Catheter, Enteric Contrast as designated per enteric contrast guidelines lisinopril (ZESTRIL) 5 mg tablet Take 2 tablets by mouth once daily. pembrolizumab (KEYTRUDA) 25 mg/mL injection Inject 200 mg intravenously every 3 weeks for 16 doses. glimepiride (AMARYL) 4 mg tablet Take 1 tablet by mouth twice daily with meals. lidocaine-prilocaine (EMLA) 2.5-2.5 % cream Apply to affected area as needed. dexAMETHasone (DECADRON) 4 mg tablet Take 5 tablets 12 and 6 hours prior to chemotherapy treatment. ondansetron (ZOFRAN) 8 mg tablet Take 1 tablet by mouth every 8 hours as needed for nausea/vomiting. iv contrast (will be provided with radiology test) CT Chest ABD/PEL-Inject, intravenously, once for1 dose.No IV access, insert saline lock prior to the beginning of sedation, infusion, injection of imaging exam. Discontinue saline lock post exam. If Pt. has a central line or IVAD, may access for administration according to line specific nursing protocol. Once exam is complete flush line and de-access according to line specific nursing protocol in the CT contrast administration guidelines link. enteric contrast (will be provided with radiology test) For CT CHESTABD/PEL W IVCON Routine order Administer, As Directed One Time Only, via Oral, Rectal, both Oral and Rectal, Enteric Tube, Stoma orIndwelling Catheter, Enteric Contrast as designated per enteric contrast guidelines acetaminophen (TYLENOL EXTRA STRENGTH) 500 mg tablet Take 2 tablets by mouth every 6 hours as needed for pain. senna (SENOKOT) 8.6 mg tab Take 1 tablet by mouth twice daily. (Patient taking differently: Take 8.6 mg by mouth twice daily as needed.) atorvastatin (LIPITOR) 40 mg tablet TAKE 1 TABLET BY MOUTH ONCE DAILY AT BEDTIME FOR CHOLESTEROL meloxicam (MOBIC) 15 mg tablet Take 1 tablet by mouth once daily. With food. metFORMIN (GLUCOPHAGE) 500 mg tablet Take 2 tablets by mouth twice daily with meals. . Lancets lancets Test one time daily, Insulin Dep? No E11.9 DM 2 alcohol swabs (ALCOHOL PADS) Test one time daily, Insulin Dep? No E11.9 DM 2 blood sugar diagnostic (BLOOD GLUCOSE TEST) test strip Test one time daily, Insulin Dep? No E11.9 DM 2 dulaglutide (TRULICITY) 3 mg/0.5 mL pen injector Inject 3 mg subcutaneously one time a week. Patient Assistance Medication. gabapentin (NEURONTIN) 100 mg capsule Take 1 capsule by mouth three times daily for 90 days. amitriptyline (ELAVIL) 50 mg tablet Take 1 tablet by mouth daily at bedtime. No current facility-administered medications for this visit. ALLERGIES: Adhesive Tape (Rosins) PERSONAL HISTORY: SOCIAL HISTORY Social History Tobacco Use Smoking status: Former Packs/day: 0.50 Years: 20.00 Additional pack years: 0.00 Total pack years: 10.00 Types: Cigarettes Quit date: 11/05/1977 Years since quittin.0 Smokeless tobacco: Never Vaping Use Vaping Use: Never used Substance Use Topics Alcohol use: No Drug use: No FAMILY HISTORY: FAMILY HISTORY FAMILY HISTORY Problem Relation Age of Onset Heart Mother irregular heart rate Colon Cancer Mother Stroke Mother Heart Father from heart attack Colon Cancer Maternal Grandfather REVIEW OF SYMPTOMS: The review of systems data was entered by the nurse and reviewed by me Nursing Notes: Tia Nelson LPN 11/05/2022 2:51 PM Signed REVIEW OF SYSTEMS: General: The patient NOTES fatigue, denies weight loss, denies weight gain, NOTES feeling hot, and NOTES feelings of cold. Eyes: The patient denies glaucoma, NOTES eye injury/surgery, wears glasses or contacts. Ear/Nose/Throat: The patient NOTES allergies, denies hayfever, denies ear infections, and denies bloody noses. Cardiovascular: The patient denies chest pain, denies heart disease, denies high blood pressure,denies cardiac stent, denies prior heart attack, denies irregular heart beat, denies high cholesterol, denies poor circulation, denies heart failure, other cardiac issues, denies claudication, NOTES coldfeet, denies peripheral arterial stent. Respiratory: The patient denies tuberculosis, denies pneumonia, denies frequent cough, denies pulmonary embolism, NOTES shortness of breath, and denies coughing up blood. Gastrointestinal: The patient NOTES difficulty swallowing, denies acid reflux, denies ulcers, denies vomiting, denies jaundice/hepatitis, NOTES gallbladder problems, denies black or tarry stools, NOTES hemorrhoids, denies bleeding from rectum, denies diverticulitis, denies constipation, denies diarrhea, denies loss of stool control, and denies hernias. Kidney/Bladder: The patient denies kidney stones, NOTES urine infections, and denies bloody urine. Skin: The patient denies a history of skin cancer, denies bleeding/changing moles, and denies a history of skin rash. Neurologic: The patient denies a history of epilepsy/convulsions, denies headaches, denies head/spinal injuries, and denies stroke/TIA. Psychiatric: The patient denies psychiatric medications, denies depression, and denies voices, denies substance abuse. Endocrine: The patient denies thyroid disorders, NOTES diabetes, and denies hormonal problems. Hematologic: The patient NOTES a history of bruising, denies bleeding, and denies anemia, denies blood clots. Infections: The patient NOTES a history of measles and mumps, NOTES rheumatic fever, and denies sexually transmitted diseases. Musculoskeletal: The patient NOTES back pain/injury, NOTES back problems, denies sciatica, noteS knee/foot trouble, NOTES arthritis, or denies gout. When was patient's last Mammogram screening? 2020 Last Colonoscopy: 2021 Tia Nelson LPN I have confirmed and edited as necessary, the PFSH and ROS obtained by others. Hood Thompson PA-C PHYSICAL EXAMINATION: General: The patient is 76 year old female, well nourished, well hydrated in no acute distress. Thepatient is oriented to time, place, and person. VITALS: Blood pressure 130/76, pulse 106, temperature 36.4 C (97.5 F), height 170.2 cm (5' 7"), weight 131.9 kg (290 lb 12.8 oz), SpO2 94 %. Body mass index is 45.55 kg/m . HEENT: Normal cephalic, ataumatic, pupils are equally round, sclera are anicteric, mucous membranesare moist, oropharynx is clear. Neck has no masses, asymmetry or lymphadenopathy. Respiratory: Clear to auscultation and percussion. Normal respiratory excursion and pattern. Cardiac: Examination is regular rate and rhythm. Normal S1/S2 Abdominal exam: Soft, nontender, with no palpable masses. No hepatosplenomegaly. No palpable hernias. Extremities: no clubbing, cyanosis or edema. No adenopathy. LABORATORY VALUES: As Noted RADIOLOGIC STUDIES: As Noted Assessment IMPRESSION: dysphagia, food sticking PLAN: I have reviewed my findings with the surgeon. Will plan for upper endoscopy. We discussed therisks and benefits of the planned endoscopy. I have informed the patient that complications can occur including failure to complete the endoscopy and perforation. The patient had the opportunity to ask questions concerning the planned endoscopy. My staff has also explained the procedure to the patient in understandable terms and has given the patient printed material concerning the procedure. Thepatient freely consents to surgery. Diagnoses: (R13.10) Dysphagia, unspecified type (primary encounter diagnosis) Consultation requested by Dr. Branham for an opinion regarding dysphagia. My final recommendations will be communicated back to the requesting physician by way of shared Medical record or letter to requesting physician via [place] mail. Hood Thompson PA-C documented in this encounterBarn[facility]09-15-[facility]23 Miscellaneous Notes* Telephone Encounter - Billie Hwang APRN.SOLO - 11/13/2022 1:02 PM EDT The following approved medication requests have been transmitted electronically. Requested Prescriptions Signed Prescriptions Disp Refills insulin aspart U-100 (NOVOLOG FLEXPEN U-100 INSULIN) 100 unit/mL (3 mL) 1 Each 11 Sig: BG is: <150 Give 0 u 151-200 Give 1 unit 201-250 Give 2 units 251-300 Give 3 units 301-350 Give 4 units 351-400 Give 5 units >400 Call MD. Authorizing Provider: BILLIE HWANG APRN.SOLO * Telephone Encounter - Cydney Reagan LPN - 11/13/2022 12:40 PM EDT Patient notified of RX, verbalizes understanding of instructions.Send medication to [facility]. Cydney Reagan LPN * Telephone Encounter - Billie Hwang APRN.CNP - 11/13/2022 12:35 PM EDT Can you please call the patient and let her know we got a message from oncology about a possible sliding scale insulin to use during her chemo. We can order a short acting insulin such as NovoLog and give her a sliding scale that she can use during treatment time. If she is agreeable please verify pharmacy. Thank you. Billie Hwang APRN.DIRECTOR MARKETING * Telephone Encounter - Mary Romero LPN - 11/12/2022 11:20 AM EDT Spoke with pt. Informed PCP office should be reaching out to her regarding possible sliding scale insulin around the time of chemotherapy administration. Pt. Voiced understanding. Mary Romero LPN * Telephone Encounter - Nora Branham DO - 11/12/2022 11:05 AM EDT Thank you. Then she will need to continue dexamethasone oral premed prep the day prior to Taxol. Need to contact PCP regarding possible sliding scale insulin around the time of chemotherapy administration. Nora Branham DO * Telephone Encounter - Bridgette Bryan RN - 11/12/2022 10:[address] Carrol Sosa did have a reaction to Taxol (first infusion). * Telephone Encounter - Nora Branham DO - 11/11/2022 4:59 PM EDT Her blood sugars are running pretty high. I don't recall if she had an infusion reaction to Taxol with her first dose. Can we look into the infusion notes to find out? If she has not then she does not have to take dexamethasone the day before chemotherapy. Nora Branham DO documented in this encounterBarnesville [facility]09-07-2023 History of Present illness Narrative* Hood Thompson PA-C - 11/05/2022 2:52 PM EDT HISTORY AND PHYSICAL Rhoada J Hooker 1945 REFERRING PHYSICIAN: Nora Branham DO CHIEF COMPLAINT: Consult (EGD/ Dysphagia) HPI: The patient is a 76 year old female referred for endoscopy. Pricila notes recent complaints of dysphagia and food sticking, worse with dry foods. Patient denies any change in bowel habits, weightchanges, blood in stools, black tarry stools or abdominal pain. Denies family history of colon issues. Pricila has undergone prior endoscopy. Had most recent colonoscopy 12/02/21 with removal of benign polyp. No prior EGD noted. Patient denies chest pain, shortness of breath or recent hospitalizations. Denies problems with sedation in the past. PAST MEDICAL HISTORY Diagnosis Date Acute cholecystitis 01/04/2007 Benign neoplasm of colon Diabetes mellitus without mention of complication Endometrial cancer (HCC) GERD (gastroesophageal reflux disease) Hemorrhoids Hypercholesteremia Hypertension Neuropathy Osteoarthritis of multiple joints PAST SURGICAL HISTORY Procedure Laterality Date ABDOMINAL SURGERY HX ARTHRP KNE CONDYLE&PLATU MEDIAL&LAT COMPARTMENTS 05/11/2011 Knee replacement, total right ARTHRP KNE CONDYLE&PLATU MEDIAL&LAT COMPARTMENTS 01/2011 left CATARACT EXTRACTION HX Left COLONOSCOPY FLX DX W/COLLJ SPEC WHEN PFRMD 12/28/2007 Colonoscopy COLONOSCOPY FLX DX W/COLLJ SPEC WHEN PFRMD 06/17/2012 Colonoscopy COLONOSCOPY FLX DX W/COLLJ SPEC WHEN PFRMD 11/05/2017 Colonoscopy EYE SURGERY HX JOINT REPLACEMENT HX LAPS SURG CHOLECYSTECTOMY W/CHOLANGIOGRAPHY 01/04/2007 LAPS TOTAL HYSTERECT 250 GM/< W/RMVL TUBE/OVARY 07/24/2022 Exam under anesthesia, total laparoscopic hysterectomy, bilateral salpingo- oophorectomy, sentinel lymph node mapping with excision of bilateral pelvic sentinel lymph nodes, and extensive lysis of adhesions. Current Outpatient Medications Medication Sig silver sulfADIAZINE (SILVADENE) 1 % cream Apply to affected area once daily. Magnesium Chloride (SLOW-MAG) 71.5 mg TbEC Take 1 tablet by mouth twice daily. iv contrast (will be provided with radiology test) CT Chest W -Inject, intravenously, once for 1 dose.No IV access, insert saline lock prior to the beginning of sedation, infusion, injection of imaging exam. Discontinue saline lock post exam. If Pt. has a central line or IVAD, may access for administration according to line specific nursing protocol. Once exam is complete flush line and de-accessaccording to line specific nursing protocol in the CT contrast administration guidelines link. iv contrast (will be provided with radiology test) CT ABD/PEL -Inject, intravenously, once for 1 dose.No IV access, insert saline lock prior to the beginning of sedation, infusion, injection of imaging exam. Discontinue saline lock post exam. If Pt. has a central line or IVAD, may access for administration according to line specific nursing protocol. Once exam is complete flush line and de-accessaccording to line specific nursing protocol in the CT contrast administration guidelines link. enteric contrast (will be provided with radiology test) For CT ABD/PEL W IVCON Routine order Administer, As Directed One Time Only, via Oral, Rectal, both Oral and Rectal, Enteric Tube, Stoma or Indwelling Catheter, Enteric Contrast as designated per enteric contrast guidelines lisinopril (ZESTRIL) 5 mg tablet Take 2 tablets by mouth once daily. pembrolizumab (KEYTRUDA) 25 mg/mL injection Inject 200 mg intravenously every 3 weeks for 16 doses. glimepiride (AMARYL) 4 mg tablet Take 1 tablet by mouth twice daily with meals. lidocaine-prilocaine (EMLA) 2.5-2.5 % cream Apply to affected area as needed. dexAMETHasone (DECADRON) 4 mg tablet Take 5 tablets 12 and 6 hours prior to chemotherapy treatment. ondansetron (ZOFRAN) 8 mg tablet Take 1 tablet by mouth every 8 hours as needed for nausea/vomiting. iv contrast (will be provided with radiology test) CT Chest ABD/PEL-Inject, intravenously, once for1 dose.No IV access, insert saline lock prior to the beginning of sedation, infusion, injection of imaging exam. Discontinue saline lock post exam. If Pt. has a central line or IVAD, may access for administration according to line specific nursing protocol. Once exam is complete flush line and de-access according to line specific nursing protocol in the CT contrast administration guidelines link. enteric contrast (will be provided with radiology test) For CT CHESTABD/PEL W IVCON Routine order Administer, As Directed One Time Only, via Oral, Rectal, both Oral and Rectal, Enteric Tube, Stoma orIndwelling Catheter, Enteric Contrast as designated per enteric contrast guidelines acetaminophen (TYLENOL EXTRA STRENGTH) 500 mg tablet Take 2 tablets by mouth every 6 hours as needed for pain. senna (SENOKOT) 8.6 mg tab Take 1 tablet by mouth twice daily. (Patient taking differently: Take 8.6 mg by mouth twice daily as needed.) atorvastatin (LIPITOR) 40 mg tablet TAKE 1 TABLET BY MOUTH ONCE DAILY AT BEDTIME FOR CHOLESTEROL meloxicam (MOBIC) 15 mg tablet Take 1 tablet by mouth once daily. With food. metFORMIN (GLUCOPHAGE) 500 mg tablet Take 2 tablets by mouth twice daily with meals. . Lancets lancets Test one time daily, Insulin Dep? No E11.9 DM 2 alcohol swabs (ALCOHOL PADS) Test one time daily, Insulin Dep? No E11.9 DM 2 blood sugar diagnostic (BLOOD GLUCOSE TEST) test strip Test one time daily, Insulin Dep? No E11.9 DM 2 dulaglutide (TRULICITY) 3 mg/0.5 mL pen injector Inject 3 mg subcutaneously one time a week. Patient Assistance Medication. gabapentin (NEURONTIN) 100 mg capsule Take 1 capsule by mouth three times daily for 90 days. amitriptyline (ELAVIL) 50 mg tablet Take 1 tablet by mouth daily at bedtime. No current facility-administered medications for this visit. ALLERGIES: Adhesive Tape (Rosins) PERSONAL HISTORY: Social History Tobacco Use Smoking status: Former Packs/day: 0.50 Years: 20.00 Additional pack years: 0.00 Total pack years: 10.00 Types: Cigarettes Quit date: 11/05/1977 Years since quittin.0 Smokeless tobacco: Never Vaping Use Vaping Use: Never used Substance Use Topics Alcohol use: No Drug use: No FAMILY HISTORY: FAMILY HISTORY Problem Relation Age of Onset Heart Mother irregular heart rate Colon Cancer Mother Stroke Mother Heart Father from heart attack Colon Cancer Maternal Grandfather REVIEW OF SYMPTOMS: The review of systems data was entered by the nurse and reviewed by va Nursing Notes: Tia Nelson LPN 11/05/2022 2:51 PM Signed REVIEW OF SYSTEMS: General: The patient NOTES fatigue, denies weight loss, denies weight gain, NOTES feeling hot, and NOTES feelings of cold. Eyes: The patient denies glaucoma, NOTES eye injury/surgery, wears glasses or contacts. Ear/Nose/Throat: The patient NOTES allergies, denies hayfever, denies ear infections, and denies bloody noses. Cardiovascular: The patient denies chest pain, denies heart disease, denies high blood pressure,denies cardiac stent, denies prior heart attack, denies irregular heart beat, denies high cholesterol, denies poor circulation, denies heart failure, other cardiac issues, denies claudication, NOTES coldfeet, denies peripheral arterial stent. Respiratory: The patient denies tuberculosis, denies pneumonia, denies frequent cough, denies pulmonary embolism, NOTES shortness of breath, and denies coughing up blood. Gastrointestinal: The patient NOTES difficulty swallowing, denies acid reflux, denies ulcers, denies vomiting, denies jaundice/hepatitis, NOTES gallbladder problems, denies black or tarry stools, NOTES hemorrhoids, denies bleeding from rectum, denies diverticulitis, denies constipation, denies diarrhea, denies loss of stool control, and denies hernias. Kidney/Bladder: The patient denies kidney stones, NOTES urine infections, and denies bloody urine. Skin: The patient denies a history of skin cancer, denies bleeding/changing moles, and denies a history of skin rash. Neurologic: The patient denies a history of epilepsy/convulsions, denies headaches, denies head/spinal injuries, and denies stroke/TIA. Psychiatric: The patient denies psychiatric medications, denies depression, and denies voices, denies substance abuse. Endocrine: The patient denies thyroid disorders, NOTES diabetes, and denies hormonal problems. Hematologic: The patient NOTES a history of bruising, denies bleeding, and denies anemia, denies blood clots. Infections: The patient NOTES a history of measles and mumps, NOTES rheumatic fever, and denies sexually transmitted diseases. Musculoskeletal: The patient NOTES back pain/injury, NOTES back problems, denies sciatica, noteS knee/foot trouble, NOTES arthritis, or denies gout. When was patient's last Mammogram screening? 2020 Last Colonoscopy: 2021 Tia Nelson LPN I have confirmed and edited as necessary, the PFSH and ROS obtained by others. Hood Thompson PA-C PHYSICAL EXAMINATION: General: The patient is 76 year old female, well nourished, well hydrated in no acute distress. Thepatient is oriented to time, place, and person. VITALS: Blood pressure 130/76, pulse 106, temperature 36.4 C (97.5 F), height 170.2 cm (5' 7"), weight 131.9 kg (290 lb 12.8 oz), SpO2 94 %. Body mass index is 45.55 kg/m . HEENT: Normal cephalic, ataumatic, pupils are equally round, sclera are anicteric, mucous membranesare moist, oropharynx is clear. Neck has no masses, asymmetry or lymphadenopathy. Respiratory: Clear to auscultation and percussion. Normal respiratory excursion and pattern. Cardiac: Examination is regular rate and rhythm. Normal S1/S2 Abdominal exam: Soft, nontender, with no palpable masses. No hepatosplenomegaly. No palpable hernias. Extremities: no clubbing, cyanosis or edema. No adenopathy. LABORATORY VALUES: As Noted RADIOLOGIC STUDIES: As Noted Assessment IMPRESSION: dysphagia, food sticking PLAN: I have reviewed my findings with the surgeon. Will plan for upper endoscopy. We discussed therisks and benefits of the planned endoscopy. I have informed the patient that complications can occur including failure to complete the endoscopy and perforation. The patient had the opportunity to ask questions concerning the planned endoscopy. My staff has also explained the procedure to the patient in understandable terms and has given the patient printed material concerning the procedure. Thepatient freely consents to surgery. Diagnoses: (R13.10) Dysphagia, unspecified type (primary encounter diagnosis) Consultation requested by Dr. Branham for an opinion regarding dysphagia. My final recommendations will be communicated back to the requesting physician by way of shared Medical record or letter to requesting physician via US mail. Hood Thompson PA-C [facility] Note* Tia Nelson LPN - 11/05/2022 2:45 PM EDT REVIEW OF SYSTEMS: General: The patient NOTES fatigue, denies weight loss, denies weight gain, NOTES feeling hot, and NOTES feelings of cold. Eyes: The patient denies glaucoma, NOTES eye injury/surgery, wears glasses or contacts. Ear/Nose/Throat: The patient NOTES allergies, denies hayfever, denies ear infections, and denies bloody noses. Cardiovascular: The patient denies chest pain, denies heart disease, denies high blood pressure,denies cardiac stent, denies prior heart attack, denies irregular heart beat, denies high cholesterol, denies poor circulation, denies heart failure, other cardiac issues, denies claudication, NOTES coldfeet, denies peripheral arterial stent. Respiratory: The patient denies tuberculosis, denies pneumonia, denies frequent cough, denies pulmonary embolism, NOTES shortness of breath, and denies coughing up blood. Gastrointestinal: The patient NOTES difficulty swallowing, denies acid reflux, denies ulcers, denies vomiting, denies jaundice/hepatitis, NOTES gallbladder problems, denies black or tarry stools, NOTES hemorrhoids, denies bleeding from rectum, denies diverticulitis, denies constipation, denies diarrhea, denies loss of stool control, and denies hernias. Kidney/Bladder: The patient denies kidney stones, NOTES urine infections, and denies bloody urine. Skin: The patient denies a history of skin cancer, denies bleeding/changing moles, and denies a history of skin rash. Neurologic: The patient denies a history of epilepsy/convulsions, denies headaches, denies head/spinal injuries, and denies stroke/TIA. Psychiatric: The patient denies psychiatric medications, denies depression, and denies voices, denies substance abuse. Endocrine: The patient denies thyroid disorders, NOTES diabetes, and denies hormonal problems. Hematologic: The patient NOTES a history of bruising, denies bleeding, and denies anemia, denies blood clots. Infections: The patient NOTES a history of measles and mumps, NOTES rheumatic fever, and denies sexually transmitted diseases. Musculoskeletal: The patient NOTES back pain/injury, NOTES back problems, denies sciatica, noteS knee/foot trouble, NOTES arthritis, or denies gout. When was patient's last Mammogram screening? 2020 Last Colonoscopy: 2021 Tia Nelson LPN [facility] History of Past illness Narrative* Problem Noted Date Diagnosed Date Resolved Date Platelets decreased 11/03/2022 12/23/19 23 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 Internal hemorrhoids without mention of complication 12/28/2007 08/15/2010 External hemorrhoids without mention of complication 12/28/2007 08/15/2010 Diabetes mellitus type 2, co ntrolled, without complications 07/13/2006 07/09/2015 documented as of this encounter (statuses as of 12/22/2022) [facility] of Past illness Narrative* Problem Noted Date Diagnosed Date Resolved Date Platelets decreased 11/03/2022 12/23/19 23 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 Internal hemorrhoids without mention of complication 12/28/2007 08/15/2010 External hemorrhoids without mention of complication 12/28/2007 08/15/2010 Diabetes mellitus type 2, co ntrolled, without complications 07/13/2006 07/09/2015 documented as of this encounter (statuses as of 12/22/2022) [facility] illness Narrative* Problem Noted Date Diagnosed Date Resolved Date Platelets decreased 11/03/2022 12/23/19 23 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 Internal hemorrhoids without mention of complication 12/28/2007 08/15/2010 External hemorrhoids without mention of complication 12/28/2007 08/15/2010 Diabetes mellitus type 2, co ntrolled, without complications 07/13/2006 07/09/2015 documented as of this encounter (statuses as of 12/23/2022) [facility] Past illness Narrative* Problem Noted Date Diagnosed Date Resolved Date Platelets decreased 11/03/2022 12/23/19 23 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 Internal hemorrhoids without mention of complication 12/28/2007 08/15/2010 External hemorrhoids without mention of complication 12/28/2007 08/15/2010 Diabetes mellitus type 2, co ntrolled, without complications 07/13/2006 07/09/2015 documented as of this encounter (statuses as of 12/23/2022) [facility] illness Narrative* Problem Noted Date Diagnosed Date Resolved Date Platelets decreased 11/03/2022 12/23/19 23 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 Internal hemorrhoids without mention of complication 12/28/2007 08/15/2010 External hemorrhoids without mention of complication 12/28/2007 08/15/2010 Diabetes mellitus type 2, co ntrolled, without complications 07/13/2006 07/09/2015 documented as of this encounter (statuses as of 12/24/2022) [facility] illness Narrative* Problem Noted Date Diagnosed Date Resolved Date Platelets decreased 11/03/2022 12/23/19 23 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 Internal hemorrhoids without mention of complication 12/28/2007 08/15/2010 External hemorrhoids without mention of complication 12/28/2007 08/15/2010 Diabetes mellitus type 2, co ntrolled, without complications 07/13/2006 07/09/2015 documented as of this encounter (statuses as of 12/25/2022) [facility] illness Narrative* Problem Noted Date Diagnosed Date Resolved Date Platelets decreased 11/03/2022 12/23/19 23 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 Internal hemorrhoids without mention of complication 12/28/2007 08/15/2010 External hemorrhoids without mention of complication 12/28/2007 08/15/2010 Diabetes mellitus type 2, co ntrolled, without complications 07/13/2006 07/09/2015 documented as of this encounter (statuses as of 12/25/2022) [facility] Narrative* Problem Noted Date Diagnosed Date Resolved Date Platelets decreased 11/03/2022 12/23/19 23 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 Internal hemorrhoids without mention of complication 12/28/2007 08/15/2010 External hemorrhoids without mention of complication 12/28/2007 08/15/2010 Diabetes mellitus type 2, co ntrolled, without complications 07/13/2006 07/09/2015 documented as of this encounter (statuses as of 12/29/2022) [facility] Narrative* Problem Noted Date Diagnosed Date Resolved Date Platelets decreased 11/03/2022 12/23/19 23 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 Internal hemorrhoids without mention of complication 12/28/2007 08/15/2010 External hemorrhoids without mention of complication 12/28/2007 08/15/2010 Diabetes mellitus type 2, co ntrolled, without complications 07/13/2006 07/09/2015 documented as of this encounter (statuses as of 12/29/2022) [facility] Narrative* Problem Noted Date Diagnosed Date Resolved Date Platelets decreased 11/03/2022 12/23/19 23 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 Internal hemorrhoids without mention of complication 12/28/2007 08/15/2010 External hemorrhoids without mention of complication 12/28/2007 08/15/2010 Diabetes mellitus type 2, co ntrolled, without complications 07/13/2006 07/09/2015 documented as of this encounter (statuses as of 12/31/2022) [facility] Narrative* Problem Noted Date Diagnosed Date Resolved Date Platelets decreased 11/03/2022 12/23/19 23 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 Internal hemorrhoids without mention of complication 12/28/2007 08/15/2010 External hemorrhoids without mention of complication 12/28/2007 08/15/2010 Diabetes mellitus type 2, co ntrolled, without complications 07/13/2006 07/09/2015 documented as of this encounter (statuses as of 12/31/2022) [facility] Narrative* Problem Noted Date Diagnosed Date Resolved Date Platelets decreased 11/03/2022 12/23/19 23 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 Internal hemorrhoids without mention of complication 12/28/2007 08/15/2010 External hemorrhoids without mention of complication 12/28/2007 08/15/2010 Diabetes mellitus type 2, co ntrolled, without complications 07/13/2006 07/09/2015 documented as of this encounter (statuses as of 01/01/2023) [facility] Narrative* Problem Noted Date Diagnosed Date Resolved Date Platelets decreased 11/03/2022 12/23/19 23 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 Internal hemorrhoids without mention of complication 12/28/2007 08/15/2010 External hemorrhoids without mention of complication 12/28/2007 08/15/2010 Diabetes mellitus type 2, co ntrolled, without complications 07/13/2006 07/09/2015 documented as of this encounter (statuses as of 01/03/2023) [facility] Narrative* Problem Noted Date Diagnosed Date Resolved Date Platelets decreased 11/03/2022 12/23/19 23 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 Internal hemorrhoids without mention of complication 12/28/2007 08/15/2010 External hemorrhoids without mention of complication 12/28/2007 08/15/2010 Diabetes mellitus type 2, co ntrolled, without complications 07/13/2006 07/09/2015 documented as of this encounter (statuses as of 01/03/2023) [facility] Narrative* Problem Noted Date Diagnosed Date Resolved Date Platelets decreased 11/03/2022 12/23/19 23 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 Internal hemorrhoids without mention of complication 12/28/2007 08/15/2010 External hemorrhoids without mention of complication 12/28/2007 08/15/2010 Diabetes mellitus type 2, co ntrolled, without complications 07/13/2006 07/09/2015 documented as of this encounter (statuses as of 01/03/2023) [facility] Narrative* Problem Noted Date Diagnosed Date Resolved Date Platelets decreased 11/03/2022 12/23/19 23 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 Internal hemorrhoids without mention of complication 12/28/2007 08/15/2010 External hemorrhoids without mention of complication 12/28/2007 08/15/2010 Diabetes mellitus type 2, co ntrolled, without complications 07/13/2006 07/09/2015 documented as of this encounter (statuses as of 01/08/2023) [facility] Narrative* Problem Noted Date Diagnosed Date Resolved Date Platelets decreased 11/03/2022 12/23/19 23 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 Internal hemorrhoids without mention of complication 12/28/2007 08/15/2010 External hemorrhoids without mention of complication 12/28/2007 08/15/2010 Diabetes mellitus type 2, co ntrolled, without complications 07/13/2006 07/09/2015 documented as of this encounter (statuses as of 01/12/2023) [facility] Narrative* Problem Noted Date Diagnosed Date Resolved Date Platelets decreased 11/03/2022 12/23/19 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 Internal hemorrhoids without mention of complication 12/28/2007 08/15/2010 External hemorrhoids without mention of complication 12/28/2007 08/15/2010 Diabetes mellitus type 2, co ntrolled, without complications 07/13/2006 07/09/2015 documented as of this encounter (statuses as of 01/13/2023) [facility]ative* Problem Noted Date Diagnosed Date Resolved Date Platelets decreased 11/03/2022 12/23/19 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 Internal hemorrhoids without mention of complication 12/28/2007 08/15/2010 External hemorrhoids without mention of complication 12/28/2007 08/15/2010 Diabetes mellitus type 2, co ntrolled, without complications 07/13/2006 07/09/2015 documented as of this encounter (statuses as of 01/13/2023) [facility]* Problem Noted Date Diagnosed Date Resolved Date Platelets decreased 11/03/2022 12/23/19 23 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 Internal hemorrhoids without mention of complication 12/28/2007 08/15/2010 External hemorrhoids without mention of complication 12/28/2007 08/15/2010 Diabetes mellitus type 2, co ntrolled, without complications 07/13/2006 07/09/2015 documented as of this encounter (statuses as of 01/13/2023) [facility]arrative* Problem Noted Date Diagnosed Date Resolved Date Platelets decreased 11/03/2022 12/23/19 23 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 Internal hemorrhoids without mention of complication 12/28/2007 08/15/2010 External hemorrhoids without mention of complication 12/28/2007 08/15/2010 Diabetes mellitus type 2, co ntrolled, without complications 07/13/2006 07/09/2015 documented as of this encounter (statuses as of 01/17/2023) [facility]* Problem Noted Date Diagnosed Date Resolved Date Platelets decreased 11/03/2022 12/23/19 23 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 Internal hemorrhoids without mention of complication 12/28/2007 08/15/2010 External hemorrhoids without mention of complication 12/28/2007 08/15/2010 Diabetes mellitus type 2, co ntrolled, without complications 07/13/2006 07/09/2015 documented as of this encounter (statuses as of 01/17/2023) [facility]ative* Problem Noted Date Diagnosed Date Resolved Date Platelets decreased 11/03/2022 12/23/19 23 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 Internal hemorrhoids without mention of complication 12/28/2007 08/15/2010 External hemorrhoids without mention of complication 12/28/2007 08/15/2010 Diabetes mellitus type 2, co ntrolled, without complications 07/13/2006 07/09/2015 documented as of this encounter (statuses as of 01/20/2023) [facility]arrative* Problem Noted Date Diagnosed Date Resolved Date Platelets decreased 11/03/2022 12/23/19 23 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 Internal hemorrhoids without mention of complication 12/28/2007 08/15/2010 External hemorrhoids without mention of complication 12/28/2007 08/15/2010 Diabetes mellitus type 2, co ntrolled, without complications 07/13/2006 07/09/2015 documented as of this encounter (statuses as of 01/29/2023) [facility]arrative* Problem Noted Date Diagnosed Date Resolved Date Platelets decreased 11/03/2022 12/23/19 23 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 Internal hemorrhoids without mention of complication 12/28/2007 08/15/2010 External hemorrhoids without mention of complication 12/28/2007 08/15/2010 Diabetes mellitus type 2, co ntrolled, without complications 07/13/2006 07/09/2015 documented as of this encounter (statuses as of 02/02/2023) [facility]ative* Problem Noted Date Diagnosed Date Resolved Date Platelets decreased 11/03/2022 12/23/19 23 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 Internal hemorrhoids without mention of complication 12/28/2007 08/15/2010 External hemorrhoids without mention of complication 12/28/2007 08/15/2010 Diabetes mellitus type 2, co ntrolled, without complications 07/13/2006 07/09/2015 documented as of this encounter (statuses as of 02/02/2023) [facility]arrative* Problem Noted Date Diagnosed Date Resolved Date Platelets decreased 11/03/2022 12/23/19 23 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 Internal hemorrhoids without mention of complication 12/28/2007 08/15/2010 External hemorrhoids without mention of complication 12/28/2007 08/15/2010 Diabetes mellitus type 2, co ntrolled, without complications 07/13/2006 07/09/2015 documented as of this encounter (statuses as of 02/02/2023) [facility]ative* Problem Noted Date Diagnosed Date Resolved Date Platelets decreased 11/03/2022 12/23/19 23 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 Internal hemorrhoids without mention of complication 12/28/2007 08/15/2010 External hemorrhoids without mention of complication 12/28/2007 08/15/2010 Diabetes mellitus type 2, co ntrolled, without complications 07/13/2006 07/09/2015 documented as of this encounter (statuses as of 02/02/2023) [facility]ative* Problem Noted Date Diagnosed Date Resolved Date Platelets decreased 11/03/2022 12/23/19 23 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 Internal hemorrhoids without mention of complication 12/28/2007 08/15/2010 External hemorrhoids without mention of complication 12/28/2007 08/15/2010 Diabetes mellitus type 2, co ntrolled, without complications 07/13/2006 07/09/2015 documented as of this encounter (statuses as of 02/02/2023) [facility]arrative* Problem Noted Date Diagnosed Date Resolved Date Platelets decreased 11/03/2022 12/23/19 23 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 Internal hemorrhoids without mention of complication 12/28/2007 08/15/2010 External hemorrhoids without mention of complication 12/28/2007 08/15/2010 Diabetes mellitus type 2, co ntrolled, without complications 07/13/2006 07/09/2015 documented as of this encounter (statuses as of 02/05/2023) [facility]arrative* Problem Noted Date Diagnosed Date Resolved Date Platelets decreased 11/03/2022 12/23/19 23 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 Internal hemorrhoids without mention of complication 12/28/2007 08/15/2010 External hemorrhoids without mention of complication 12/28/2007 08/15/2010 Diabetes mellitus type 2, co ntrolled, without complications 07/13/2006 07/09/2015 documented as of this encounter (statuses as of 02/19/2023) [facility]arrative* Problem Noted Date Diagnosed Date Resolved Date Platelets decreased 11/03/2022 12/23/19 23 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 Internal hemorrhoids without mention of complication 12/28/2007 08/15/2010 External hemorrhoids without mention of complication 12/28/2007 08/15/2010 Diabetes mellitus type 2, co ntrolled, without complications 07/13/2006 07/09/2015 documented as of this encounter (statuses as of 02/19/2023) [facility]arrative* Problem Noted Date Diagnosed Date Resolved Date Platelets decreased 11/03/2022 12/23/19 23 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 Internal hemorrhoids without mention of complication 12/28/2007 08/15/2010 External hemorrhoids without mention of complication 12/28/2007 08/15/2010 Diabetes mellitus type 2, co ntrolled, without complications 07/13/2006 07/09/2015 documented as of this encounter (statuses as of 02/19/2023) [facility] of Present illness Narrative* Nora Branham DO - 11/03/2022 11:14 AM EDT Diagnosis: 1) 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 HPI: The patient is a 76-year-old female with a past medical history significant for hypertension, hyperlipidemia, GERD, type 2 diabetes (diagnosed about age 60; neuropathy), total knee replacement, former smoker and recent diagnosis of endometrial cancer. SURGERY & DATE: 07/24/2022 - Exam under anesthesia, total laparoscopic hysterectomy, bilateral salpingo-oophorectomy, sentinel lymph node mapping with excision of bilateral pelvic sentinel lymph nodes, and extensive lysis of adhesions. PATHOLOGY: A. Odum lymph node, right, biopsy: - Isolated tumor cells involving 1 of 2 lymph nodes; see comment. B. 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 C. Uterus with cervix, right and left fallopian tubes, and ovaries, hysterectomy and bilateral salpingo-oophorectomy: - Cervix: No significant pathologic abnormality. - Endomyometrium: Endometrial endometrioid carcinoma with squamous differentiation, FIGO grade 2, invading outer myometrium (18 mm out of 19 mm, 95%) and showing extensive/multifocal lymphovascular invasion and the microcystic, elongated, and fragmented (MELF) pattern of invasion; see comment and synoptic report. - Serosa: No significant pathologic abnormality. - Bilateral ovaries: Adhesions. - Right fallopian tube: Hematosalpinx, no definitive carcinoma. - Left fallopian tube: Metastatic carcinoma. Mismatch repair (MMR) interpretation: Deficient mismatch repair (dMMR) Results Mismatch Repair Protein Immunohistochemistry Results: MLH1: Loss of Nuclear Expression (subclonal/focal loss) PMS2: Loss of Nuclear Expression (subclonal/focal loss) MSH2: Normal/Intact Nuclear Expression MSH6: Normal/Intact Nuclear Expression IMAGING: CT ABD/PELVIS: 06/16/2022 IMPRESSION: 1. Findings compatible with cystitis. 2. Approximately 8.5 cm tubular/serpiginous cystic lesion in the right adnexal region suspect for hydrosalpinx though right ovarian cystic lesion not excluded with certainty. Mild infiltration of thesurrounding fat raises suspicion for the possibility of superinfection. A few small bowel loops in the pelvis appear tethered around this right adnexal cystic lesion and a short segment of sigmoid colon abuts the posterior aspect of this right adnexal lesion. 3. Small volume pelvic free fluid. 4. Heterogeneous appearance of the uterus potentially related to fibroids. Further evaluation with dedicated pelvic ultrasound would be of value. CXR: 07/22/2022 IMPRESSION: Left basilar mild atelectasis. TUMOR BOARD: Management Options: -Recommend adjuvant treatment with systemic therapy, carbo/taxol +/- pembrolizumab -Referral to genetics Per initial consultation here: No vaginal discharge or bleeding. Bowels moving regularly. Good appetite. Pain is gone. Subjectively voiding to completion. Fingertip and toes numb. Had it approximately 3 years. Orthostasis if stands quickly. Balance has been "off" for about 6 months. Used WC to come in from [facility]. Uses cane and walker in the home. Lives in basement of sister's house. Capable of all ADLs independently. Uses shower chair. She and sister share cooking. Drives. Low back pain can limit her walking--symptoms are consistent with spinal stenosis. Current therapy: 1) paclitaxel and carboplatin and pembrolizumab. First 2 cycles without pembrolizumab. Presents for ongoing oncologic management. Evaluation for cycle #4. Interim history: Blurred vision both eyes last few weeks. No other occular symptoms. Burned her left pinking finger on the oven. Didn't feel it. Still with tingling in fingers. Feet neuropathy subjectively stable. Getting dizzy when up and walking. Some elements of vertigo and orthostasis. Balance worse. Occasional nausea. Sometimes regurgitates food while eating. Get stuck. No reflux. Appetite still fair--eating smaller amounts. No diarrhea. Formed stools typically every morning. No abdominal pain. PAST MEDICAL HISTORY Diagnosis Date Acute cholecystitis 01/04/2007 Benign neoplasm of colon Diabetes mellitus without mention of complication Endometrial cancer (HCC) GERD (gastroesophageal reflux disease) Hemorrhoids Hypercholesteremia Hypertension Neuropathy Osteoarthritis of multiple joints PAST SURGICAL HISTORY Procedure Laterality Date ABDOMINAL SURGERY HX ARTHRP KNE CONDYLE&PLATU MEDIAL&LAT COMPARTMENTS 05/11/2011 Knee replacement, total right ARTHRP KNE CONDYLE&PLATU MEDIAL&LAT COMPARTMENTS 01/2011 left CATARACT EXTRACTION HX Left COLONOSCOPY FLX DX W/COLLJ SPEC WHEN PFRMD 12/28/2007 Colonoscopy COLONOSCOPY FLX DX W/COLLJ SPEC WHEN PFRMD 06/17/2012 Colonoscopy COLONOSCOPY FLX DX W/COLLJ SPEC WHEN PFRMD 11/05/2017 Colonoscopy EYE SURGERY HX JOINT REPLACEMENT HX LAPS SURG CHOLECYSTECTOMY W/CHOLANGIOGRAPHY 01/04/2007 LAPS TOTAL HYSTERECT 250 GM/< W/RMVL TUBE/OVARY 07/24/2022 Exam under anesthesia, total laparoscopic hysterectomy, bilateral salpingo- oophorectomy, sentinel lymph node mapping with excision of bilateral pelvic sentinel lymph nodes, and extensive lysis of adhesions. ALLERGIES Allergen Reactions Adhesive Tape (Bailey* Rash Social History Tobacco Use Smoking status: Former Packs/day: 0.50 Years: 20.00 Additional pack years: 0.00 Total pack years: 10.00 Types: Cigarettes Quit date: 11/05/1977 Years since quittin.0 Smokeless tobacco: Never Vaping Use Vaping Use: Never used Substance Use Topics Alcohol use: No Drug use: No Family History Problem Relation Age of Onset Heart Mother irregular heart rate Colon Cancer Mother Stroke Mother Heart Father from heart attack Colon Cancer Maternal Grandfather ROS: Constitutional: No fever. No drenching night sweats. Neuro: No recent MCKENZIE. HEENT: No recent change in voice, vision or hearing. Resp: No cough, wheeze of hemoptysis. No shortness of breath at rest. No GUY. CVS: No exertional chest pain, PND or orthopnea. No extremity swelling/edema. No symptoms of claudication. No painful or tender varicose veins. GI: No black or bloody stools. : No dysuria or gross hematuria. Endo: No hot flashes. No polyuria or polydipsia. No heat or cold intolerance. Musculoskeletal: No bone or muscular pain. Occasional right shoulder pain. Chronic LBP. Derm: No current rash. No history of jaundice. No diffuse pruritis. Heme: No unusual bleeding and unexplained bruising. Psych: Normal mood. PHYSICAL EXAM: Vitals: Blood pressure 123/83, pulse 98, temperature 36.3 C (97.3 F), weight 132 kg (291 lb), SpO2 93 %. Well-appearing and in no acute distress. EYES: Sclerae are anicteric bilaterally. ENT: Oral mucosa is unremarkable. There is no sign of thrush or mucositis. Full plates upper and lower. LYMPHATIC: There is no palpable cervical, supraclavicular, adenopathy. RESPIRATORY: Inspiratory breath sounds are of diminished intensity in all thompson. No rales, wheezesor rhonchi. CARDIOVASCULAR: Rhythm is regular ABDOMEN: The abdomen is nondistended. No tenderness. Extremities: No swelling or edema. SKIN: There is a noninfected appearing second-degree burn approximately 1 to 1/2 cm in diameter on the lateral side of her left pinky finger. More distally along the nail laterally there is a blister, nonhemorrhagic. 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 No focal motor weakness per se. Her gait is slightly ataxic. LABS: ASSESSMENT/PLAN: (C54.1) Endometrial cancer (HCC) (primary encounter diagnosis) (G62.9) Neuropathy -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 -Her KPS is 70%. -She has significant comorbid conditions including type 2 diabetes with pre- existing sensory neuropathy which has been fortunately stable for some time. She has impaired gait and mobility from spinalstenosis as well. Nonetheless she stood to benefit significantly from adjuvant therapy. -I therefore discussed and recommended adjuvant therapy with carboplatin, paclitaxel and pembrolizumab based on the recently reported results of the NRG- GY018 trial. -Pembrolizumab was added with cycle #3. She is tolerating that well with no noticeable side effect.However her neuropathy has appreciably worsened. Balance is worse and she is having episodes suggestive of autonomic dysfunction. She burned her left pinky finger on the oven without realizing it. Platelet count 97,000 today. Plan: -Delay chemotherapy a week. -Dose reduce paclitaxel to 100 mg per metered squared when resumes. -Silvadene to second-degree burn on pinky finger. -Advised her to use walker at all times rather than cane. -Slow Mag BID. -Lisinopril to 10 mg daily. -CTs after cycle 6. -OV/CBC/CMP/Mg/CA125/TSH/T4/Cortisol for cycle #4. -Dr. Valverde for EGD to evaluate dysphagia. Evidently this has been chronic symptom. Portions of this documentation were copied and pasted from previous office visit notes in order to provide a cohesive continuity of the history. The note has been reviewed and edited and updated as necessary. I spent a total of 25 minutes on the date of the service which included preparing to see the patient, [id number] patient care, completing clinical documentation, obtaining and/or reviewing separately obtained history, performing a medically appropriate examination, counseling and educating the pat ient/family/caregiver, ordering medications, tests, or procedures, communicating with other HCPs (not separately reported), and communicating results to the patient/family/caregiver. Nora Branham DO documented in this encounterBarn[facility]08-30-2023 History of Present illness Narrative* Sofia Corrales RT(R) - 10/28/2022 10:00 AM EDT Radiology Service Progress Note PATIENT NAME: Pricila Hooker DATE OF SERVICE: October 28, 2022 TIME: 3:03 PM PATIENT IDENTITY VERIFICATION COMPLETED USING TWO (2) IDENTIFIERS: Name and Date of confirmedby patient verbally. FALL SCREENING: Has the patient had 2 falls in the last year or 1 fall with injury or currently using an Ambulatory Assistive Device (Walker, Cane, Wheelchair, Crutches, etc.)? No PATIENT GENDER DATA: Female. status: : No status: NO. PATIENT RELEVANT IMPLANT DATA REVIEWED: Yes RADIOLOGY DEPARTMENT: CT; Exam(s) Completed: Chest Abdomen Pelvis PERIPHERAL IV DATA: power port accessed by [employer] SIGNED BY: RT Adi(R) October 28, 2022 3:03 PM documented in this encounterBarnesville Hospital08-25-2023 Miscellaneous Notes* Telephone Encounter - Leydi Grijalva - 10/23/2022 11:43 AM EDT IRB# [id number]: Vascular events in patients undergoing same-day nonCardiac surgery - [facility]ANCE PI: Harry Howell MD Outcomes Research Department. [facility] [place]. [facility]. This is a research study note. Patient assessments recorded here should not guide either clinical care or clinical decision-making. I spoke with Pricila Hooker on October 23, 2022 regarding the 90 day follow-up for the VALIANCE study. The 90-day follow-up, 90-day Functional capacity, 90-day Quality of life, and 90-day Frailty forms were asked and completed over the phone. All other relevant forms were also completed if applicable to the patient. The study period is now complete. Leydi Grijalva Research Subassembly Supervisor Outcomes Research Anesthesiology [place] documented in this encounterBarnesville Hospital08-18-2023 Miscellaneous Notes* Telephone Encounter - Debi Chatman RN - 10/16/2022 2:51 PM EDT CYCLE 1/DAY 1 POST TREATMENT CALL Today's date: October 16, 2022 Treatment Regimen: Added Keytruda [id number] Date: 10/14/22 Call to patient, message left to call me back and phone/contact number provided. Debi Chatman RN documented in this encounterBarnesville Hospital08-16-2023 Miscellaneous Notes* Telephone Encounter - Roseann Ignacio - 10/14/2022 8:31 AM EDT Spoke with patient/family and scheduled. Roseann Ignacio * Telephone Encounter - Renata Vanegas - 10/13/2022 4:48 PM EDT Check out comments: Electrolyte infusion tomorrow. CTs few days prior to next OV. Orders pended. As scheduled. CT orders not signed yet. Will schedule with pt when she is here for treatment tomorrow documented in this encounterBarnesville Hospital08-15-2023 History of Present illness Narrative* Nora Branham DO - 10/13/2022 4:19 PM EDT Diagnosis: 1) 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 HPI: The patient is a 76-year-old female with a past medical history significant for hypertension, hyperlipidemia, GERD, type 2 diabetes (diagnosed about age 60; neuropathy), total knee replacement, former smoker and recent diagnosis of endometrial cancer. SURGERY & DATE: 07/24/2022 - Exam under anesthesia, total laparoscopic hysterectomy, bilateral salpingo-oophorectomy, sentinel lymph node mapping with excision of bilateral pelvic sentinel lymph nodes, and extensive lysis of adhesions. PATHOLOGY: A. Odum lymph node, right, biopsy: - Isolated tumor cells involving 1 of 2 lymph nodes; see comment. B. 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 C. Uterus with cervix, right and left fallopian tubes, and ovaries, hysterectomy and bilateral salpingo-oophorectomy: - Cervix: No significant pathologic abnormality. - Endomyometrium: Endometrial endometrioid carcinoma with squamous differentiation, FIGO grade 2, invading outer myometrium (18 mm out of 19 mm, 95%) and showing extensive/multifocal lymphovascular invasion and the microcystic, elongated, and fragmented (MELF) pattern of invasion; see comment and synoptic report. - Serosa: No significant pathologic abnormality. - Bilateral ovaries: Adhesions. - Right fallopian tube: Hematosalpinx, no definitive carcinoma. - Left fallopian tube: Metastatic carcinoma. Mismatch repair (MMR) interpretation: Deficient mismatch repair (dMMR) Results Mismatch Repair Protein Immunohistochemistry Results: MLH1: Loss of Nuclear Expression (subclonal/focal loss) PMS2: Loss of Nuclear Expression (subclonal/focal loss) MSH2: Normal/Intact Nuclear Expression MSH6: Normal/Intact Nuclear Expression IMAGING: CT ABD/PELVIS: 06/16/2022 IMPRESSION: 1. Findings compatible with cystitis. 2. Approximately 8.5 cm tubular/serpiginous cystic lesion in the right adnexal region suspect for hydrosalpinx though right ovarian cystic lesion not excluded with certainty. Mild infiltration of thesurrounding fat raises suspicion for the possibility of superinfection. A few small bowel loops in the pelvis appear tethered around this right adnexal cystic lesion and a short segment of sigmoid colon abuts the posterior aspect of this right adnexal lesion. 3. Small volume pelvic free fluid. 4. Heterogeneous appearance of the uterus potentially related to fibroids. Further evaluation with dedicated pelvic ultrasound would be of value. CXR: 07/22/2022 IMPRESSION: Left basilar mild atelectasis. TUMOR BOARD: Management Options: -Recommend adjuvant treatment with systemic therapy, carbo/taxol +/- pembrolizumab -Referral to genetics Per initial consultation here: No vaginal discharge or bleeding. Bowels moving regularly. Good appetite. Pain is gone. Subjectively voiding to completion. Fingertip and toes numb. Had it approximately 3 years. Orthostasis if stands quickly. Balance has been "off" for about 6 months. Used WC to come in from [employer]. Uses cane and walker in the home. Lives in basement of sister's house. Capable of all ADLs independently. Uses shower chair. She and sister share cooking. Drives. Low back pain can limit her walking--symptoms are consistent with spinal stenosis. Current therapy: 1) paclitaxel and carboplatin and pembrolizumab. First 2 cycles without pembrolizumab. Presents for ongoing oncologic management. Evaluation for cycle #3. Interim history: No exacerbation of neuropathy. One episode nausea. Appetite fair. No diarrhea. Formed stools typically every morning. No abdominal pain. PAST MEDICAL HISTORY Diagnosis Date Acute cholecystitis 01/04/2007 Benign neoplasm of colon Diabetes mellitus without mention of complication Endometrial cancer (HCC) GERD (gastroesophageal reflux disease) Hemorrhoids Hypercholesteremia Hypertension Neuropathy Osteoarthritis of multiple joints PAST SURGICAL HISTORY Procedure Laterality Date ABDOMINAL SURGERY HX ARTHRP KNE CONDYLE&PLATU MEDIAL&LAT COMPARTMENTS 05/11/2011 Knee replacement, total right ARTHRP KNE CONDYLE&PLATU MEDIAL&LAT COMPARTMENTS 01/2011 left CATARACT EXTRACTION HX Left COLONOSCOPY FLX DX W/COLLJ SPEC WHEN PFRMD 12/28/2007 Colonoscopy COLONOSCOPY FLX DX W/COLLJ SPEC WHEN PFRMD 06/17/2012 Colonoscopy COLONOSCOPY FLX DX W/COLLJ SPEC WHEN PFRMD 11/05/2017 Colonoscopy EYE SURGERY HX JOINT REPLACEMENT HX LAPS SURG CHOLECYSTECTOMY W/CHOLANGIOGRAPHY 01/04/2007 LAPS TOTAL HYSTERECT 250 GM/< W/RMVL TUBE/OVARY 07/24/2022 Exam under anesthesia, total laparoscopic hysterectomy, bilateral salpingo- oophorectomy, sentinel lymph node mapping with excision of bilateral pelvic sentinel lymph nodes, and extensive lysis of adhesions. ALLERGIES Allergen Reactions Adhesive Tape (Bailey* Rash Social History Tobacco Use Smoking status: Former Packs/day: 0.50 Years: 20.00 Additional pack years: 0.00 Total pack years: 10.00 Types: Cigarettes Quit date: 11/05/1977 Years since quittin.9 Smokeless tobacco: Never Vaping Use Vaping Use: Never used Substance Use Topics Alcohol use: No Drug use: No Family History Problem Relation Age of Onset Heart Mother irregular heart rate Colon Cancer Mother Stroke Mother Heart Father from heart attack Colon Cancer Maternal Grandfather ROS: Constitutional: No fever. No drenching night sweats. Neuro: No recent MCKENZIE. HEENT: No recent change in voice, vision or hearing. Resp: No cough, wheeze of hemoptysis. No shortness of breath at rest. No GUY. CVS: No exertional chest pain, PND or orthopnea. No extremity swelling/edema. No symptoms of claudication. No painful or tender varicose veins. GI: No black or bloody stools. : No dysuria or gross hematuria. Endo: No hot flashes. No polyuria or polydipsia. No heat or cold intolerance. Musculoskeletal: No bone or muscular pain. Occasional right shoulder pain. Chronic LBP. Derm: No current rash. No history of jaundice. No diffuse pruritis. Heme: No unusual bleeding and unexplained bruising. Psych: Normal mood. PHYSICAL EXAM: Vitals: Blood pressure 137/92, pulse 99, temperature 36.3 C (97.4 F), weight 131.3 kg (289 lb 8 oz), SpO2 96 %. Well-appearing and in no acute distress. EYES: Sclerae are anicteric bilaterally. ENT: Oral mucosa is unremarkable. There is no sign of thrush or mucositis. Full plates upper and lower. LYMPHATIC: There is no palpable cervical, supraclavicular, adenopathy. RESPIRATORY: Inspiratory breath sounds are of diminished intensity in all thompson. No rales, wheezesor rhonchi. CARDIOVASCULAR: Rhythm is regular ABDOMEN: The abdomen is nondistended. No tenderness. Extremities: No swelling or edema. SKIN: No jaundice. 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 No focal motor weakness per se. Her gait is slightly ataxic. LABS: Component Latest Ref Rng & Units 10/13/2022 WBC 3.70 - 11.00 k/uL 5.79 RBC 3.90 - 5.20 m/uL 3.67 (L) Hemoglobin 11.5 - 15.5 g/dL 10.9 (L) Hematocrit 36.0 - 46.0 % 32.5 (L) MCV 80.0 - 100.0 fL 88.6 MCH 26.0 - 34.0 pg 29.7 MCHC 30.5 - 36.0 g/dL 33.5 RDW-CV 11.5 - 15.0 % 15.9 (H) Platelet Count 150 - 400 k/uL 140 (L) MPV 9.0 - 12.7 fL 9.0 Neut% % 63.9 Abs Neut (ANC) 1.45 - 7.50 k/uL 3.70 Lymph% % 23.0 Abs Lymph 1.00 - 4.00 k/uL 1.33 Montgomery% % 8.6 Abs Montgomery <0.87 k/uL 0.50 Eosin% % 3.5 Abs Eosin <0.46 k/uL 0.20 Baso% % 0.5 Abs Baso <0.11 k/uL 0.03 Immature Gran % % 0.5 IMMATURE GRANS (ABS) <0.10 k/uL 0.03 NRBC /100 WBC 0.0 Absolute nRBC <0.01 k/uL <0.01 DTYPE Auto Protein, Total 6.3 - 8.0 g/dL 6.9 Albumin 3.9 - 4.9 g/dL 4.0 Calcium 8.5 - 10.2 mg/dL 9.5 Bilirubin, Total 0.2 - 1.3 mg/dL 0.4 Alkaline Phosphatase 34 - 123 U/L 78 AST 13 - 35 U/L 16 ALT 7 - 38 U/L 15 Glucose 74 - 99 mg/dL 215 (H) BUN 7 - 21 mg/dL 14 Creatinine 0.58 - 0.96 mg/dL 0.95 Sodium 136 - 144 mmol/L 138 Potassium 3.7 - 5.1 mmol/L 4.7 Chloride 97 - 105 mmol/L 102 CO2 22 - 30 mmol/L 24 Anion Gap 9 - 18 mmol/L 12 eGFR >=60 mL/min/1.73m 62 Magnesium 1.7 - 2.3 mg/dL 1.2 (L) Component Latest Ref Rng & Units 06/23/2022 08/14/2022 09/03/2022 09/23/2022 CA 125 <39 U/mL 172 (H) 21 15 13 ASSESSMENT/PLAN: (C54.1) Endometrial cancer (HCC) (primary encounter diagnosis) (G62.9) Neuropathy -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 -Her KPS is 70%. -She has significant comorbid conditions including type 2 diabetes with pre- existing sensory neuropathy which has been fortunately stable for some time. She has impaired gait and mobility from spinalstenosis as well. Nonetheless she stood to benefit significantly from adjuvant therapy. -I therefore discussed and recommended adjuvant therapy with carboplatin, paclitaxel and pembrolizumab based on the recently reported results of the NRG- GY018 trial. -She is tolerating treatment very well. No exacerbation of neuropathy. No severe or unexpected toxicity. Plan: -Add pembrolizumab tomorrow. -Start Slow Mag BID. -IV Mg tomorrow. -Increase lisinopril to 10 mg daily. She has a 90-day supply of 5 mg tablets on hand and will use 2of those daily till she runs low. -CTs prior to cycle #4. -OV/CBC/CMP/Mg/CA125/TSH/T4/Cortisol for cycle #4 Portions of this documentation were copied and pasted from previous office visit notes in order to provide a cohesive continuity of the history. The note has been reviewed and edited and updated as necessary. I spent a total of 30 minutes on the date of the service which included preparing to see the patient, [id number] patient care, completing clinical documentation, obtaining and/or reviewing separately obtained history, performing a medically appropriate examination, counseling and educating the pat ient/family/caregiver, ordering medications, tests, or procedures, communicating with other HCPs (not separately reported), and communicating results to the patient/family/caregiver. Nora Branham DO documented in this encounterBarnesville [facility]08-03-2023 Miscellaneous Notes* Telephone Encounter - Vianey Owusu LISW - 10/01/2022 9:18 AM EDT PSYCHOSOCIAL ASSESSMENT Date of Service: October 01, 2022 Pricila Hooker is a 76 year old female being seen for initial social work assessment. Diagnosis: Endometrial Cancer New Primary Oncologist: James Cartagena MD Radiation Oncologist: BRITTANIE Goals of Care: Curative intent Today's visit includes: self/patient Family History of Cancer: Mother and Maternal grandfather - both colon cancer SUPPORT NETWORK: Marital status: Single Parent(s): Child/Children: No vp care management arrangements needed: Na Siblings: 1 sister Grandchild(aaliyah): none Home Health Provider: Brittanie Community Services: No Dolores Identified: Yes Evangelical/Spirituality: Faith Are these practices or beliefs that may affect or influence treatment? No EMPLOYMENT/FINANCIAL/HEALTH INSURANCE: Employment: Retired Income source: Social Security and Supported financially by family Insurance: Medicare HMO Prescription coverage: Yes Is the patient appropriate for referral to [facility] COBRA Assistance program? No Financial Distress: No Gary: No FOOD INSECURITY Within the past year, have you worried about how you would buy or obtain food? No LIVING ARRANGEMENTS: Type: House- dependent (friend/family) spilt Resides with: sister and [id number] FUNCTIONAL STATUS: Cognitive limitations: none Physical limitations: none Language barrier: No Hearing Impaired: No Speech Impaired: No Visual Impairments: No Special considerations/accommodations needed: No HEALTH LITERACY: Do you have difficulty understanding medical instructions or other written materials you receive from you doctor or pharmacy? No Do have difficulty filling out medical forms by yourself? No The following interventions were put into place: NA MEDICATION ADHERENCE: Within the past 2 weeks, have you had difficulty remembering to take your medicine? No Within the past 2 weeks, did you ever miss taking your medications for reasons other than forgetting? No The following interventions were put into place: NA MENTAL HEALTH HISTORY: No History of combat/trauma: No Substance Use and Treatment History: denied History of Abuse: Unknown Issues with: Sleep:No Eating:No Exercising: No Stress Management: No ADVANCE DIRECTIVES/LEGAL DOCUMENTS: Living Will: Yes Scanned into EPIC: Yes Health Care Durable Power of Residential Property Consultant: Yes Scanned into EPIC: Yes Guardianship: No Scanned into EPIC:NA Reasons Advanced Directives were not Addressed: NA COPING STATUS: Coping Strengths: supportive relationships with immediate family, with friends, with extended family, and with neighbors spirituality successful managing past crises hopefulness self advocate strong problem-solving skills ability to plan able to follow direction consistently over time able to communicate effectively future oriented and able to identify goals Current affect/mood: appropriate History of Loss: Yes, parents Adjustment to diagnosis: reflecting understanding, responding appropriately, and accepting help BARRIERS/CARE CHALLENGES: None Are barriers/care challenges identified likely to have an impact on the patient's quality of life during treatment? No INTERVENTIONS/REFERRALS TO BE PROVIDED: Monitor patient response to treatment Communicate pertinent medical/psychosocial information to Cancer Center team Provide emotional support to patient/family Psychotherapy/Counseling Continue follow up as needed Resources and Referrals: Internal: [facility] External: [facility] CLINICAL IMPRESSION: SW met with pt in treatment room. Pt presents with appropriate adjustment to diagnosis and need fortreatment. She reports she has been feeling well although noticed she has started to lose her hair.She reports she "hasn't thought about it much" and is just taking one step at a time. She reports she receives a lot of support form her sister, [id number], nieces and nephews. She states her sister has been a big help for her and assists her in understanding the medical information at times. She reports she is still able to partake in some of her favorite things including randall, being withfamily and being with her pets. SW was also referred to pt by financial navigator to assist pt in reviewing and signing a patient assistance application for her azaleatruda. Pt in agreement and completed this application with SW. SW oriented pt to SW role and discussed available resources/community referrals if needed. Pt declined any needs at this time and agreed to reach out to SW if needs arise. Psychosocial Risk Criteria If positive for one or more of the following risk criteria, follow up every 30 days Age: >70 Mental Health: NA Practical Needs: N/A PLAN: SW to follow pt at upcoming appointments and remain in contact with pt throughout treatment to address any psychosocial concerns if needed. Follow up appointment with SW in: SERGIO Gama-Manpreet documented in this encounterBarnesville Hospital07-27-2023 Miscellaneous Notes* Telephone Encounter - Mary Burnett LPN - 09/24/2022 3:15 PM EDT Please sign and print, RX goes to [facility] for pt. Asst. Mary Burnett LPN documented in this encounterBarnesville Hospital07-27-2023 Miscellaneous Notes* Telephone Encounter - Nora Branham DO - 09/24/2022 2:45 PM EDT [employer]. Can you print this for me? Nora Branham DO * Telephone Encounter - Vianey Owusu LISW - 09/24/2022 2:[address] Branham - can you please print a script for Nadiareza's keytruda to be sent along with her patient assistance application? Thank you, SERGIO Babcock-Manpreet documented in this encounterBarnesville Hospital07-27-2023 Miscellaneous Notes* Telephone Encounter - Debi Chatman RN - 09/24/2022 11:25 AM EDT ONCOLOGY PATIENT EDUCATION NOTE TOPIC: Immunotherapy, Medications: Keytruda READINESS TO LEARN: COGNITIVE ABILITY: Alert and oriented MOTIVATION TO LEARN: Interested FAMILY SUPPORT: Unable to assess - Family not present INSTRUCTION PROVIDED TO: Patient INSTRUCTION PROVIDED BY: Nurse Coordinator PATIENT LEARNS BEST BY: Multiple Methods FACTORS AFFECTING LEARNING: None PHYSICAL LIMITATIONS AFFECTING LEARNING: None LEARNING RESPONSE DIAGNOSIS: Endometrial METHOD OF INSTRUCTION: Individual instruction Written instruction - handouts Verbal instruction PATIENT/FAMILY RESPONSE: Verbalizes understanding of: CHEMOTHERAPY-Regimen, toxicity and side effects FOLLOW UP PLAN: Recommend - Recommend continued instruction and follow up as directed Contact information given. SUPPLEMENTAL MATERIAL: Written material was provided at this visit with the following information: - Immunotherapy education was provided by a pharmacist NO - Side effect management information was provided/discussed including but not limited to: abdominaldiscomfort, arthralgia, bowel habit changes, cardiac toxicity, chest pain, cold sensitivity, electrolyte disturbances, fatigue, hair loss, headache, hypersensitivity reaction, infection, kidney toxicity, mouth hygiene, mucositis, myalgia, nausea/vomitting, peripheral edema, peripheral neuropathy, rash, risk for DVT, shortness of breath, skin changes, vision disorder/distrubance YES - Provided important phone numbers and contacts during and after hours. YES - Provided information on symptoms that require immediate assistance. YES - Provided Immunotherapy "when to call" handouts YES - Preventing infection. YES - Treatment schedule and confirmation of appointment times. YES - Available support groups. NA - The importance of contraception during the course of chemotherapy NA - na Time Spent: 20 minutes REFERRAL (RECOMMENDATION): N/A Debi Chatman RN documented in this encounterBarnesville Hospital07-27-2023 Miscellaneous Notes* Telephone Encounter - Bridgette Bryan RN - 09/24/2022 7:38 AM EDT Infusion nurse will notify patient when in for treatment today. * Telephone Encounter - Nora Branham DO - 09/23/2022 5:18 PM EDT Advise her to discontinue current magnesium supplement and start Slow-Mag 1 tablet twice daily. Nora Branham DO documented in this encounterBarnesville Hospital07-13-2023 Miscellaneous Notes* Telephone Encounter - Karthik Tobin - 09/10/2022 12:37 PM EDT Appointment rescheduled and patient informed. * Telephone Encounter - Debi Chatman RN - 09/10/2022 12:24 PM EDT Spoke with patient, she states that she is unable to come in to clinic on Mondays. She is scheduledlab/OV on 8/14/23 and is asking for any other day. She is aware that someone will look at schedule and call her back with new date/time if able. Alexia Chatman RN documented in this encounterBarnesville Hospital07-13-2023 Miscellaneous Notes* Telephone Encounter - Debi Chatman RN - 09/10/2022 11:31 AM EDT TOXICITY CHECK SYMPTOM ASSESSMENT The patient is on Carboplatin/Taxol Spoke with patient, "I'm great, I feel really good", "I have not had any issues at all" Headache: No Visual Changes: No Dizziness: No Do you have any periods of confusion? No Mood changes: No Mouth or throat pain: No Appetite: no changes in appetite, appetite good Taste changes: No Nausea: No Vomiting: No Heartburn: No. Weight gain/loss: No Episodes of palpitations/chest discomfort/pressure/pain No Shortness of breath: No Cough: No Diarrhea: no Constipation: no Bladder/Urinary Changes: None Pain: No=0 (pain 0 on a scale of 0-10). Fever: No Chills: No Cold sensitivity: No Numbness/weakness: No Edema: No Skin changes: No Itching: No Yellowing of skin or eyes: No Musculoskeletal/joint changes/issues No Bleeding issues: No Activity Level (0-100%): same as baseline Do you need to take naps? Yes; Do you wake up feeling rested? Yes Does the patient need interventions or same day appointment:No Reinforced CURRENT treatment education based on current and anticipated symptoms. Discussed port/line care and patient verbalizes understanding: Not Applicable Patient instructed to contact office or after hours Hematology/Oncology fellow for: temperature ? 100.4; questions or concerns. Patient verbalized understanding of when to seek medical attention and after hours number protocol. Debi Chatman RN documented in this encounterBarnesville Hospital07-07-2023 Miscellaneous Notes* Telephone Encounter - Reena Peace RN - 09/04/2022 9:40 AM EDT CYCLE 1/DAY 1 POST TREATMENT CALL Today's date: September 04, 2022 Treatment Regimen: Carboplatin/Taxol C1D1 Date: 09/03/22 Called patient to follow-up on symptom management. Spoke with patient SYMPTOM ASSESSMENT Neuro: None CV/Resp: None GI/: None Integument: None Activity: Patient reported no changes in energy level, energy level good Pain: No=0 (pain 0 on a scale of 0-10). Fever: No Chills: No Reviewed the importance of hydration and eating small frequent meals. Patient stated she is feelingfine today with no symptom concerns. Patient was restless last night but stated that is not unusualfor her. Patient has not taken Zofran yet. Reviewed when to take antiemetic, after hour number, andencouraged patient to call with any questions/concerns. Any new referrals needed? No Reinforced CURRENT treatment education based on current and anticipated symptoms. Discussed port/line care and patient verbalizes understanding: Yes Patient instructed to contact office or after hours Hematology/Oncology fellow for: temperature ? 100.4; questions or concerns. Patient verbalized understanding of when to seek medical attention and after hours number protocol. Reena Peace RN documented in this encounterBarnesville Hospital06-30-2023 History of Present illness Narrative* WANG Francis - 08/28/2022 12:58 PM EDT [facility] Consultation Note Genetic Counselor: Lindsey Mccauley MS, [facility] Patient: Pricila Hooker Patient Name and confirmed at initiation of visit. This session was conducted via telephone call. HIGH LEVEL SUMMARY: The patient's personal and family history is not suggestive of a hereditary cancer syndrome. The patient was still offered Custom Cancer Panel through [employer] for $250 self- pay but patient is not interested at this time. She will reach out to me if she changes her mind. IDENTIFICATION AND CHIEF COMPLAINT: Dr. Memo Leigh requested a consultation for genetic counseling and risk assessment for Pricila Hooker, a 76 year old female, for discussion of her personal and family history of cancer. She presents to clinic today to discuss the possibility of a genetic predisposition to cancer, and to further clarify her risks, as well as her family members' risks for cancer. HISTORY OF PRESENT ILLNESS: At the age of 76, Pricila Hooker was diagnosed with uterine cancer. This is being treated with a total hysterectomy and chemotherapy. PAST MEDICAL HISTORY Diagnosis Date Acute cholecystitis 01/04/2007 Benign neoplasm of colon Diabetes mellitus without mention of complication Endometrial cancer (HCC) GERD (gastroesophageal reflux disease) Hemorrhoids Hypercholesteremia Hypertension Neuropathy Osteoarthritis of multiple joints PAST SURGICAL HISTORY Procedure Laterality Date ABDOMINAL SURGERY HX ARTHRP KNE CONDYLE&PLATU MEDIAL&LAT COMPARTMENTS 05/11/2011 Knee replacement, total right ARTHRP KNE CONDYLE&PLATU MEDIAL&LAT COMPARTMENTS 01/2011 left CATARACT EXTRACTION HX Left COLONOSCOPY FLX DX W/COLLJ SPEC WHEN PFRMD 12/28/2007 Colonoscopy COLONOSCOPY FLX DX W/COLLJ SPEC WHEN PFRMD 06/17/2012 Colonoscopy COLONOSCOPY FLX DX W/COLLJ SPEC WHEN PFRMD 11/05/2017 Colonoscopy EYE SURGERY HX JOINT REPLACEMENT HX LAPS SURG CHOLECYSTECTOMY W/CHOLANGIOGRAPHY 01/04/2007 LAPS TOTAL HYSTERECT 250 GM/< W/RMVL TUBE/OVARY 07/24/2022 Exam under anesthesia, total laparoscopic hysterectomy, bilateral salpingo- oophorectomy, sentinel lymph node mapping with excision of bilateral pelvic sentinel lymph nodes, and extensive lysis of adhesions. CANCER SURVEILLANCE HISTORY: Mammograms: last 09/2017 Breast MRI's: N/A Breast Biopsies: had one but cannot remember when Colonoscopy: last 11/2021 EGD: N/A GI Polyps: no polyps per pt report Pelvic Exam: No Pap Smear: No CA-125: N/A Transvaginal Ultrasound: last 04/2022 Dermatology: No REPRODUCTIVE HISTORY AND PERSONAL RISK ASSESSMENT FACTORS: Weight: Last 1 Encounter Wt Readings: Date: Wt: 08/19/2022 130.8 kg (288 lb 6.4 oz) Height: Last 1 Encounter Ht Readings: Date: Ht: 08/19/2022 172.7 cm (5' 8") Menarche was at age 11 Postmenopausal Uterus Intact: No Ovaries Intact: No A1 She has not previously undergone treatment for infertility. She has not used oral contraception pills. She has not used HRT in the past. SOCIAL HISTORY: Social History Tobacco Use Smoking status: Former Packs/day: 0.50 Years: 20.00 Pack years: 10.00 Types: Cigarettes Quit date: 11/05/1977 Years since quittin.8 Smokeless tobacco: Never Vaping Use Vaping Use: Never used Substance Use Topics Alcohol use: No Drug use: No FAMILY HISTORY: We obtained a detailed, 4-generation family history. Significant diagnoses are listed below: FAMILY HISTORY Problem Relation Age of Onset Heart Mother irregular heart rate Colon Cancer Mother Stroke Mother Heart Father from heart attack Colon Cancer Maternal Grandfather The patient's maternal ancestors are of Faroese/Nigerian/[place] descent and paternal ancestorsare of Faroese/Nigerian/[place] descent. There is no Ashkenazi Voodoo ancestry. There is no known consanguinity. A copy of the patient's pedigree will be available under the scanned documents tab following today's visit. GENETIC COUNSELING RISK ASSESSMENT, DISCUSSION, AND SUGGESTED FOLLOW UP: We reviewed the natural history and genetic etiology of sporadic, familial and hereditary cancer syndromes. The patient's personal and family history is not suggestive of: a hereditary cancer syndrome. We discussed that identification of a hereditary cancer syndrome may help her care providers tailorher medical management. If a mutation is detected, the National Comprehensive Cancer Network and/orexpert opinion recommendations could include increased cancer surveillance and prophylactic surgeryoptions. If a mutation is detected, the patient will be referred back to the referring provider andto any additional appropriate care providers to discuss the relevant options. Inheritance of hereditary cancer syndromes was discussed with the patient. If a mutation is not found in the patient, this will decrease the likelihood of a hereditary cancersyndrome as the explanation for the patient's personal and family history of cancer. However, it cannot completely rule out this possibility. Cancer surveillance options would be discussed for the patient according to the appropriate standard National Comprehensive Cancer Network and [place] Cancer [employer] guidelines, with consideration of their personal and family history risk factors. In this case, the patient will be referred back to their care providers for discussions of management. Based on this assessment of the patient's family and personal history, genetic testing is not recommended. The patient was still offered Custom Cancer Panel through [employer], but patient is not interested in pursuing testing at this time. The patient was seen for a total of 30 minutes, greater than 50% of which was spent [id number] counseling. This plan is being carried out under the oversight of Dr. Padmini Cabrera. This note will also be sent to the referring provider via the electronic medical record. Lindsey Mccauley MS, [facility] CC: Dr. Memo Cabrera documented in this encounterBarnesville Hospital06-27-2023 Miscellaneous Notes* Telephone Encounter - Debi Chatman RN - 08/25/2022 4:26 PM EDT Patient aware of Rx Alexia Chatman RN * Telephone Encounter - Nora Branham DO - 08/25/2022 3:55 PM EDT The following approved medication requests have been transmitted electronically. Requested Prescriptions Signed Prescriptions Disp Refills lidocaine-prilocaine (EMLA) 2.5-2.5 % cream 30 g 2 Sig: Apply to affected area as needed. Authorizing Provider: NORA BRANHAM DO * Telephone Encounter - Debi Chatman RN - 08/25/2022 3:24 PM EDT Chemotherapy Teaching completed today. Patient needs Rx for Emla cream. Please sign. (port to be placed on 09/02/22) Alexia Chatman RN] documented in this encounterBarnesville Hospital06-27-2023 History of Present illness Narrative* Debi Chatman RN - 08/25/2022 3:23 PM EDT Patient teaching was completed over the phone. Debi Chatman RN * Debi Chatman RN - 08/25/2022 3:22 PM EDT Rn Unit Manager Pre Chemo Patient identified by name and date of . YES Confirmed date and time for chemotherapy ? YES Other appointments (labs, imaging) discussed? YES Discussed where to park (human resources vice president), charge for parking YES Discussed where to report (building/floor) YES Any pre-medications ordered? YES Described the infusion room and what to expect. (What to wear, what to bring [iPad, books] amount of time treatment can take, meals and CC options for food) YES Note: Discussed Rx for Decadron to take prior to treatment Discussed whether the patient can eat prior to labs and treatment. YES Who is driving you to and from treatment? sister Discussed why it is important to bring someone with you. Yes, Resources discussed (music therapy, Art therapy, pet therapy, etc.) YES Education on chemotherapy (drug, side effects) discussed and that the patient will be receiving a C1D1 call within 7 days of treatment. YES Other topics discussed, interventions needed: na Debi Chatman RN * Debi Chatman RN - 08/25/2022 1:31 PM EDT ONCOLOGY PATIENT EDUCATION NOTE TOPIC: Chemotherapy, Medications: Carbo/Taxol READINESS TO LEARN: COGNITIVE ABILITY: Alert and oriented MOTIVATION TO LEARN: Interested FAMILY SUPPORT: High - Very involved in pt care INSTRUCTION PROVIDED TO: Patient and Sister INSTRUCTION PROVIDED BY: Nurse Coordinator PATIENT LEARNS BEST BY: Multiple Methods FACTORS AFFECTING LEARNING: None PHYSICAL LIMITATIONS AFFECTING LEARNING: None LEARNING RESPONSE DIAGNOSIS: Endometrial METHOD OF INSTRUCTION: Individual instruction Written instruction - handouts Verbal instruction PATIENT/FAMILY RESPONSE: Verbalizes understanding of: CHEMOTHERAPY-Regimen, toxicity and side effects FOLLOW UP PLAN: Recommend - Recommend continued instruction and follow up as directed Contact information given. SUPPLEMENTAL MATERIAL: Written material was provided at this visit with the following information: - Chemotherapy education was provided by a pharmacist NO - Side effect management information was provided/discussed including but not limited to: abdominaldiscomfort, anemia, appetite changes, arthralgia, bowel habit changes, cardiac toxicity, electrolyte disturbances, fatigue, fluid retention, hair loss, headache, hearing impairment, hypersensitivity reaction, infection, kidney toxicity, mouth hygiene, mucositis, myalgia, nausea/vomitting, neutropenia, peripheral edema, peripheral neuropathy, rash, risk for DVT, shortness of breath, skin changes, taste changes, thrombocytopenia YES - Provided important phone numbers and contacts during and after hours. YES - Provided information on symptoms that require immediate assistance. YES - Provided Chemotherapy "when to call" handouts YES - Preventing infection. YES - Treatment schedule and confirmation of appointment times. YES - Available support groups. YES - The importance of contraception during the course of chemotherapy NA - Neutropenic fever protocol discussed with patient, which included the importance of reporting anyfever of 100.4F (38.0C) or greater to the healthcare team as noted on the provided wallet card and/or magnet. YES Time Spent: 60 minutes REFERRAL (RECOMMENDATION): Social Work, to reach out to patient to at a later time Debi Chatman RN documented in this encounterBarnesville Hospital06-22-2023 Miscellaneous Notes* Telephone Encounter - Roseann Ignacio - 08/20/2022 12:31 PM EDT Scheduled as directed. Roseann Ignacio * Telephone Encounter - Debi Chatman RN - 08/20/2022 11:49 AM EDT Spoke with patient, aware of Dr. Branham note. We will also changed date of chemo edu visit since it now conflicts with port placement. Questions answered and denies any further needs at this time. Alexia Chatman RN PSS: please move chemo edu to 08/25/22 at 130pm. Patient aware. thank you. * Telephone Encounter - Debi Chatman RN - 08/19/2022 5:03 PM EDT I plan on calling her tomorrow and will let her know. Alexia Chatman RN * Telephone Encounter - Nora Branham DO - 08/19/2022 4:56 PM EDT Can let her know I was in touch with Dr. Leigh. He recommended starting Keytruda with cycle 3 tosee how well she tolerated chemotherapy for the first cycle or 2 initially. [place] orders adjusted accordingly. Nora Branham DO documented in this encounterBarnesville Hospital06-21-2023 History of Present illness Narrative* Almaz Horta MD - 08/19/2022 2:39 PM EDT HISTORY AND PHYSICAL Pricila Hooker 1945 REFERRING PHYSICIAN: Nora Branham DO CHIEF COMPLAINT: Consult (Port placement.) HPI: The patient is a 76 year old female presents with metastatic uterine cancer and need for IV access for IV chemotherapy. She is morbidly obese and has exhausted IV access. She is referred for consideration of placement of portacath. She denies previous central line placements. She denies previous clavicular and/or rib fractures. She denies previous extremity DVTs or PEs. She denies increased bleeding tendencies, however, she is on a daily aspirin. PAST MEDICAL HISTORY Diagnosis Date Acute cholecystitis 01/04/2007 Benign neoplasm of colon Diabetes mellitus without mention of complication Endometrial cancer (HCC) GERD (gastroesophageal reflux disease) Hemorrhoids Hypercholesteremia Hypertension Neuropathy Osteoarthritis of multiple joints PAST SURGICAL HISTORY Procedure Laterality Date ABDOMINAL SURGERY HX ARTHRP KNE CONDYLE&PLATU MEDIAL&LAT COMPARTMENTS 05/11/2011 Knee replacement, total right ARTHRP KNE CONDYLE&PLATU MEDIAL&LAT COMPARTMENTS 01/2011 left CATARACT EXTRACTION HX Left COLONOSCOPY FLX DX W/COLLJ SPEC WHEN PFRMD 12/28/2007 Colonoscopy COLONOSCOPY FLX DX W/COLLJ SPEC WHEN PFRMD 06/17/2012 Colonoscopy COLONOSCOPY FLX DX W/COLLJ SPEC WHEN PFRMD 11/05/2017 Colonoscopy EYE SURGERY HX JOINT REPLACEMENT HX LAPS SURG CHOLECYSTECTOMY W/CHOLANGIOGRAPHY 01/04/2007 LAPS TOTAL HYSTERECT 250 GM/< W/RMVL TUBE/OVARY 07/24/2022 Exam under anesthesia, total laparoscopic hysterectomy, bilateral salpingo- oophorectomy, sentinel lymph node mapping with excision of bilateral pelvic sentinel lymph nodes, and extensive lysis of adhesions. Current Outpatient Medications Medication Sig dexAMETHasone (DECADRON) 4 mg tablet Take 5 tablets 12 and 6 hours prior to chemotherapy treatment. ondansetron (ZOFRAN) 8 mg tablet Take 1 tablet by mouth every 8 hours as needed for nausea/vomiting. iv contrast (will be provided with radiology test) CT Chest ABD/PEL-Inject, intravenously, once for1 dose.No IV access, insert saline lock prior to the beginning of sedation, infusion, injection of imaging exam. Discontinue saline lock post exam. If Pt. has a central line or IVAD, may access for administration according to line specific nursing protocol. Once exam is complete flush line and de-access according to line specific nursing protocol in the CT contrast administration guidelines link. enteric contrast (will be provided with radiology test) For CT CHESTABD/PEL W IVCON Routine order Administer, As Directed One Time Only, via Oral, Rectal, both Oral and Rectal, Enteric Tube, Stoma orIndwelling Catheter, Enteric Contrast as designated per enteric contrast guidelines ibuprofen (MOTRIN) 600 mg tablet Take 1 tablet by mouth every 6 hours as needed for pain. Take withfood. acetaminophen (TYLENOL EXTRA STRENGTH) 500 mg tablet Take 2 tablets by mouth every 6 hours as needed for pain. senna (SENOKOT) 8.6 mg tab Take 1 tablet by mouth twice daily. (Patient taking differently: Take 8.6 mg by mouth twice daily as needed.) lisinopril (ZESTRIL) 5 mg tablet Take 1 tablet by mouth once daily. CINNAMON gabapentin (NEURONTIN) 100 mg capsule Take 1 capsule by mouth three times daily for 90 days. atorvastatin (LIPITOR) 40 mg tablet TAKE 1 TABLET BY MOUTH ONCE DAILY AT BEDTIME FOR CHOLESTEROL meloxicam (MOBIC) 15 mg tablet Take 1 tablet by mouth once daily. With food. metFORMIN (GLUCOPHAGE) 500 mg tablet Take 2 tablets by mouth twice daily with meals. . Cholecalciferol, Vitamin D3, 125 mcg (5,000 unit) cap Take 5,000 Units by mouth once daily. Lancets lancets Test one time daily, Insulin Dep? No E11.9 DM 2 alcohol swabs (ALCOHOL PADS) Test one time daily, Insulin Dep? No E11.9 DM 2 blood sugar diagnostic (BLOOD GLUCOSE TEST) test strip Test one time daily, Insulin Dep? No E11.9 DM 2 dulaglutide (TRULICITY) 3 mg/0.5 mL pen injector Inject 3 mg subcutaneously one time a week. Patient Assistance Medication. glimepiride (AMARYL) 4 mg tablet TAKE 1 TABLET BY MOUTH TWICE DAILY WITH MEALS nutritional supplement/fiber (KETO FORMULA ORAL) Take 800 mg by mouth. Aspirin 81 mg ORAL Tab Take one(1) tablet daily. amitriptyline (ELAVIL) 50 mg tablet Take 1 tablet by mouth daily at bedtime. No current facility-administered medications for this visit. ALLERGIES: Adhesive Tape (Rosins) PERSONAL HISTORY: Social History Tobacco Use Smoking status: Former Packs/day: 0.50 Years: 20.00 Pack years: 10.00 Types: Cigarettes Quit date: 11/05/1977 Years since quittin.8 Smokeless tobacco: Never Vaping Use Vaping Use: Never used Substance Use Topics Alcohol use: No Drug use: No FAMILY HISTORY Problem Relation Age of Onset Heart Mother irregular heart rate Colon Cancer Mother Stroke Mother Heart Father from heart attack Colon Cancer Maternal Grandfather The review of systems data was entered by the nurse and reviewed by va Nursing Notes: Shivani Beyer RN 08/19/2022 2:31 PM Signed REVIEW OF SYSTEMS: General: The patient denies fatigue, denies weight loss, denies weight gain, denies feeling hot, and denies feelings of cold. Eyes: The patient denies glaucoma, denies eye injury/surgery, wears glasses or contacts. Ear/Nose/Throat: The patient NOTES allergies, denies hayfever, denies ear infections, and denies bloody noses. Cardiovascular: The patient denies chest pain, denies heart disease, NOTES high blood pressure,denies cardiac stent, denies prior heart attack, denies irregular heart beat, NOTES high cholesterol, denies poor circulation, denies heart failure, other cardiac issues, denies claudication, denies cold feet, denies peripheral arterial stent. Respiratory: The patient denies tuberculosis, denies pneumonia, denies frequent cough, denies pulmonary embolism, NOTES shortness of breath, and denies coughing up blood. Gastrointestinal: The patient denies difficulty swallowing, NOTES acid reflux, denies ulcers, denies vomiting, denies jaundice/hepatitis, NOTES gallbladder problems, denies black or tarry stools, NOTES hemorrhoids, denies bleeding from rectum, denies diverticulitis, denies constipation, NOTES diarrhea, denies loss of stool control, and denies hernias. Kidney/Bladder: The patient denies kidney stones, NOTES urine infections, and denies bloody urine. Skin: The patient denies a history of skin cancer, denies bleeding/changing moles, and denies a history of skin rash. Neurologic: The patient denies a history of epilepsy/convulsions, denies headaches, denies head/spinal injuries, and denies stroke/TIA. Psychiatric: The patient denies psychiatric medications, denies depression, and denies voices, denies substance abuse. Endocrine: The patient denies thyroid disorders, NOTES diabetes, and denies hormonal problems. Hematologic: The patient NOTES a history of bruising, denies bleeding, and denies anemia, denies blood clots. Infections: The patient denies a history of measles and mumps, denies rheumatic fever, and denies sexually transmitted diseases. Musculoskeletal: The patient NOTES back pain/injury, denies back problems, denies sciatica, NOTES knee/foot trouble, NOTES arthritis, or denies gout. When was patient's last Mammogram screening? 10/18/2017 Last Colonoscopy: 12/02/2021 Shivani Beyer RN PHYSICAL EXAMINATION: General: The patient is 76 year old female, well nourished, well hydrated in no acute distress. Thepatient is oriented to time, place, and person. VITALS: Blood pressure 138/70, pulse 107, temperature 36.6 C (97.8 F), height 172.7 cm (5' 8"), weight 130.8 kg (288 lb 6.4 oz), SpO2 94 %. Body mass index is 43.85 kg/m . Head - Normocephalic. EOM intact with sclera clear and no icterus noted. Wearing glasses Neck - supple with no jugular venous distention noted. Trachea is midline. Lungs - clear to auscultation. Normal breath sounds. No rales/rhonchi/wheezing noted. No labored breathing noted, such as retractions. No cough heard. Heart - normal S1 and S2 auscultated. No rubs/clicks/murmurs noted. Regular rate. Abdomen - soft and benign. Difficult to determine if any masses or organomegaly due to body habitus. Extremities - no calf tenderness noted. No pitting edema noted. Skin - normal skin integrity. Neurological - gait normal, no focal deficits noted. Psych - calm and appropriate Assessment IMPRESSION: exhausted vascular access, uterine cancer PLAN: I have discussed the above with the patient and her sister who is present with her. I have offered placement of portacath to patient. I have explained the procedure to the patient. I have explained the risks of the surgery, including but not limited to: infection, bleeding, injury to any blood vessels/nerves, thromboses of blood vessels, line sepsis, injury to lungs (such as pneumothorax or hemothorax and need for chest tube), migration of the catheter, not having any access ( inability to place a vascular catheter due to anatomy/etc.), mechanical nonfunctioning of port, infection of port, scar tissue, wound infection, etc. - the patient understands She is told to be off aspirin at least three days prior to procedure The patient wishes to proceed. Will make attempt to schedule for procedure before patient's next chemotherapy encounter. I have answered all questions to the patient s satisfaction and the patient has no further questions. I have confirmed and edited as necessary, the PFSH and ROS obtained by others. Consultation requested by Dr. Nora Branham for an opinion regarding patient's need for IV access. My final recommendations will be communicated back to the requesting physician by way of shared Medicalrecord or letter to requesting physician via US mail. . Diagnoses: (C54.1) Endometrial cancer (HCC) (Z45.2) Exhausted vascular access Return to Clinic: The patient will be scheduled at [facility] at soonest availability. I spent a total of 31 minutes on the date of the service which included preparing to see the patient with review of any pertinent laboratory studies/radiological imaging/medical records, [id number] care, obtaining oral medical history from the patient in this encounter, counseling and educating the patient/family/caregiver, and ordering and/or scheduling of medications/tests/procedures,and completing appropriate medical documentation. Almaz Horta MD documented in this encounterBarnesville Hospital06-21-2023 Nurse Note* Shivani Beyer RN - 08/19/2022 2:29 PM EDT REVIEW OF SYSTEMS: General: The patient denies fatigue, denies weight loss, denies weight gain, denies feeling hot, and denies feelings of cold. Eyes: The patient denies glaucoma, denies eye injury/surgery, wears glasses or contacts. Ear/Nose/Throat: The patient NOTES allergies, denies hayfever, denies ear infections, and denies bloody noses. Cardiovascular: The patient denies chest pain, denies heart disease, NOTES high blood pressure,denies cardiac stent, denies prior heart attack, denies irregular heart beat, NOTES high cholesterol, denies poor circulation, denies heart failure, other cardiac issues, denies claudication, denies cold feet, denies peripheral arterial stent. Respiratory: The patient denies tuberculosis, denies pneumonia, denies frequent cough, denies pulmonary embolism, NOTES shortness of breath, and denies coughing up blood. Gastrointestinal: The patient denies difficulty swallowing, NOTES acid reflux, denies ulcers, denies vomiting, denies jaundice/hepatitis, NOTES gallbladder problems, denies black or tarry stools, NOTES hemorrhoids, denies bleeding from rectum, denies diverticulitis, denies constipation, NOTES diarrhea, denies loss of stool control, and denies hernias. Kidney/Bladder: The patient denies kidney stones, NOTES urine infections, and denies bloody urine. Skin: The patient denies a history of skin cancer, denies bleeding/changing moles, and denies a history of skin rash. Neurologic: The patient denies a history of epilepsy/convulsions, denies headaches, denies head/spinal injuries, and denies stroke/TIA. Psychiatric: The patient denies psychiatric medications, denies depression, and denies voices, denies substance abuse. Endocrine: The patient denies thyroid disorders, NOTES diabetes, and denies hormonal problems. Hematologic: The patient NOTES a history of bruising, denies bleeding, and denies anemia, denies blood clots. Infections: The patient denies a history of measles and mumps, denies rheumatic fever, and denies sexually transmitted diseases. Musculoskeletal: The patient NOTES back pain/injury, denies back problems, denies sciatica, NOTES knee/foot trouble, NOTES arthritis, or denies gout. When was patient's last Mammogram screening? 10/18/2017 Last Colonoscopy: 12/02/2021 Shivani Beyer RN documented in this encounterBarnesville Hospital06-20-2023 Miscellaneous Notes* Telephone Encounter - Renata Vanegas - 08/18/2022 10:39 AM EDT Pt scheduled Start e-mail sent * Telephone Encounter - Roseann Ignacio - 08/17/2022 9:28 AM EDT Spoke with patient and lab will be drawn this week when here for Port Consult. Chemo still needs scheduled. Roseann Ignacio * Telephone Encounter - Nora Branham DO - 08/16/2022 12:41 PM EDT Add MMA when here 09/02. Nora Branham DO * Telephone Encounter - Zena Huntley - 08/14/2022 2:51 PM EDT Check out comments: Labs today. DONE Referral to general surgery for port. SCHEDULED 08/19 Chemotherapy teaching. SCHEDULED 09/02 Begin treatment last week July or first week August. CBC/CMP/Mg/CA125/Straight back for cycle #1. OV/CBC/CMP/Mg/CA125/TSH/T4/Cortisol for cycle #2. documented in this encounterBarnesville Hospital06-16-2023 Miscellaneous Notes* Telephone Encounter - Debi Chatman RN - 08/14/2022 2:45 PM EDT Met with patient and introduced myself. Patient was given a My Journey binder with chemocare information, office contact information, thermometer, and additional chemotherapy resource booklets. Patient aware this nurse will review on scheduled appointment date. 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 HPI: The patient is a 76-year-old female with a past medical history significant for hypertension, hyperlipidemia, GERD, type 2 diabetes (diagnosed about age 60; neuropathy), total knee replacement, former smoker and recent diagnosis of endometrial cancer. SURGERY & DATE: 07/24/2022 - Exam under anesthesia, total laparoscopic hysterectomy, bilateral salpingo-oophorectomy, sentinel lymph node mapping with excision of bilateral pelvic sentinel lymph nodes, and extensive lysis of adhesions. PATHOLOGY: A. Odum lymph node, right, biopsy: - Isolated tumor cells involving 1 of 2 lymph nodes; see comment. B. 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 C. Uterus with cervix, right and left fallopian tubes, and ovaries, hysterectomy and bilateral salpingo-oophorectomy: - Cervix: No significant pathologic abnormality. - Endomyometrium: Endometrial endometrioid carcinoma with squamous differentiation, FIGO grade 2, invading outer myometrium (18 mm out of 19 mm, 95%) and showing extensive/multifocal lymphovascular invasion and the microcystic, elongated, and fragmented (MELF) pattern of invasion; see comment and synoptic report. - Serosa: No significant pathologic abnormality. - Bilateral ovaries: Adhesions. - Right fallopian tube: Hematosalpinx, no definitive carcinoma. - Left fallopian tube: Metastatic carcinoma. Mismatch repair (MMR) interpretation: Deficient mismatch repair (dMMR) Results Mismatch Repair Protein Immunohistochemistry Results: MLH1: Loss of Nuclear Expression (subclonal/focal loss) PMS2: Loss of Nuclear Expression (subclonal/focal loss) MSH2: Normal/Intact Nuclear Expression MSH6: Normal/Intact Nuclear Expression IMAGING: CT ABD/PELVIS: 06/16/2022 IMPRESSION: 1. Findings compatible with cystitis. 2. Approximately 8.5 cm tubular/serpiginous cystic lesion in the right adnexal region suspect for hydrosalpinx though right ovarian cystic lesion not excluded with certainty. Mild infiltration of the surrounding fat raises suspicion for the possibility of superinfection. A few small bowel loops in the pelvis appear tethered around this right adnexal cystic lesion and a short segment of sigmoid colon abuts the posterior aspect of this right adnexal lesion. 3. Small volume pelvic free fluid. 4. Heterogeneous appearance of the uterus potentially related to fibroids. Further evaluation with dedicated pelvic ultrasound would be of value. CXR: 07/22/2022 IMPRESSION: Left basilar mild atelectasis. TUMOR BOARD: Management Options: -Recommend adjuvant treatment with systemic therapy, carbo/taxol +/- pembrolizumab -Referral to genetics No vaginal discharge or bleeding. Bowels moving regularly. Good appetite. Pain is gone. Subjectively voiding to completion. Fingertip and toes numb. Had it approximately 3 years. Orthostasis if stands quickly. Balance has been "off" for about 6 months. Used WC to come in from [facility]. Uses cane and walker in the home. Lives in basement of sister's house. Capable of all ADLs independently. Uses shower chair. She and sister share cooking. Drives. Low back pain can limit her walking--symptoms are consistent with spinal stenosis. PAST MEDICAL HISTORY Diagnosis Date Acute cholecystitis 01/04/2007 Benign neoplasm of colon Diabetes mellitus without mention of complication Endometrial cancer (HCC) Hypercholesteremia Hypertension Neuropathy PAST SURGICAL HISTORY Procedure Laterality Date ABDOMINAL SURGERY HX ARTHRP KNE CONDYLE&PLATU MEDIAL&LAT COMPARTMENTS 05/11/2011 Knee replacement, total right ARTHRP KNE CONDYLE&PLATU MEDIAL&LAT COMPARTMENTS 01/2011 left CATARACT EXTRACTION HX Left COLONOSCOPY FLX DX W/COLLJ SPEC WHEN PFRMD 12/28/2007 Colonoscopy COLONOSCOPY FLX DX W/COLLJ SPEC WHEN PFRMD 06/17/2012 Colonoscopy COLONOSCOPY FLX DX W/COLLJ SPEC WHEN PFRMD 11/05/2017 Colonoscopy EYE SURGERY HX JOINT REPLACEMENT HX LAPS SURG CHOLECYSTECTOMY W/CHOLANGIOGRAPHY 01/04/2007 LAPS TOTAL HYSTERECT 250 GM/< W/RMVL TUBE/OVARY 07/24/2022 Exam under anesthesia, total laparoscopic hysterectomy, bilateral salpingo- oophorectomy, sentinel lymph node mapping with excision of bilateral pelvic sentinel lymph nodes, and extensive lysis of adhesions. ALLERGIES Allergen Reactions Adhesive Tape (Bailey* Rash Current Outpatient Medications Medication Sig ibuprofen (MOTRIN) 600 mg tablet Take 1 tablet by mouth every 6 hours as needed for pain. Take withfood. acetaminophen (TYLENOL EXTRA STRENGTH) 500 mg tablet Take 2 tablets by mouth every 6 hours as needed for pain. senna (SENOKOT) 8.6 mg tab Take 1 tablet by mouth twice daily. (Patient taking differently: Take 8.6 mg by mouth twice daily as needed.) lisinopril (ZESTRIL) 5 mg tablet Take 1 tablet by mouth once daily. CINNAMON gabapentin (NEURONTIN) 100 mg capsule Take 1 capsule by mouth three times daily for 90 days. atorvastatin (LIPITOR) 40 mg tablet TAKE 1 TABLET BY MOUTH ONCE DAILY AT BEDTIME FOR CHOLESTEROL meloxicam (MOBIC) 15 mg tablet Take 1 tablet by mouth once daily. With food. amitriptyline (ELAVIL) 50 mg tablet Take 1 tablet by mouth daily at bedtime. metFORMIN (GLUCOPHAGE) 500 mg tablet Take 2 tablets by mouth twice daily with meals. . Cholecalciferol, Vitamin D3, 125 mcg (5,000 unit) cap Take 5,000 Units by mouth once daily. dulaglutide (TRULICITY) 3 mg/0.5 mL pen injector Inject 3 mg subcutaneously one time a week. Patient Assistance Medication. glimepiride (AMARYL) 4 mg tablet TAKE 1 TABLET BY MOUTH TWICE DAILY WITH MEALS Aspirin 81 mg ORAL Tab Take one(1) tablet daily. iv contrast (will be provided with radiology test) CT Chest ABD/PEL-Inject, intravenously, once for1 dose.No IV access, insert saline lock prior to the beginning of sedation, infusion, injection of imaging exam. Discontinue saline lock post exam. If Pt. has a central line or IVAD, may access for administration according to line specific nursing protocol. Once exam is complete flush line and de-access according to line specific nursing protocol in the CT contrast administration guidelines link. enteric contrast (will be provided with radiology test) For CT CHESTABD/PEL W IVCON Routine order Administer, As Directed One Time Only, via Oral, Rectal, both Oral and Rectal, Enteric Tube, Stoma orIndwelling Catheter, Enteric Contrast as designated per enteric contrast guidelines Lancets lancets Test one time daily, Insulin Dep? No E11.9 DM 2 alcohol swabs (ALCOHOL PADS) Test one time daily, Insulin Dep? No E11.9 DM 2 blood sugar diagnostic (BLOOD GLUCOSE TEST) test strip Test one time daily, Insulin Dep? No E11.9 DM 2 nutritional supplement/fiber (KETO FORMULA ORAL) Take 800 mg by mouth. (Patient not taking: Reported on 08/14/2022) No current facility-administered medications for this visit. Social History Tobacco Use Smoking status: Former Packs/day: 0.50 Years: 20.00 Pack years: 10.00 Types: Cigarettes Quit date: 11/05/1977 Years since quittin.8 Smokeless tobacco: Never Vaping Use Vaping Use: Never used Substance Use Topics Alcohol use: No Drug use: No Family History Problem Relation Age of Onset Heart Mother irregular heart rate Colon Cancer Mother Stroke Mother Heart Father from heart attack Colon Cancer Maternal Grandfather ROS: Constitutional: No fever. No drenching night sweats. Neuro: No recent MCKENZIE. HEENT: No recent change in voice, vision or hearing. Resp: No cough, wheeze of hemoptysis. No shortness of breath at rest. No GUY. CVS: No exertional chest pain, PND or orthopnea. No extremity swelling/edema. No symptoms of claudication. No painful or tender varicose veins. GI: No black or bloody stools. : No dysuria or gross hematuria. Endo: No hot flashes. No polyuria or polydipsia. No heat or cold intolerance. Musculoskeletal: No bone or muscular pain. Occasional right shoulder pain. Chronic LBP. Derm: No current rash. No history of jaundice. No diffuse pruritis. Heme: No unusual bleeding and unexplained bruising. Psych: Normal mood. PHYSICAL EXAM: Vitals: Blood pressure 130/72, pulse 91, temperature 36.3 C (97.3 F), temperature source Tympanic, height 172.7 cm (5' 8"), weight 130.9 kg (288 lb 8 oz), SpO2 97 %. Well-appearing and in no acute distress. EYES: Sclerae are anicteric bilaterally. ENT: Oral mucosa is unremarkable. There is no sign of thrush or mucositis. Full plates upper and lower. LYMPHATIC: There is no palpable cervical, supraclavicular, adenopathy. RESPIRATORY: Inspiratory breath sounds are of diminished intensity in all thompson. No rales, wheezesor rhonchi. CARDIOVASCULAR: Rhythm is regular ABDOMEN: The abdomen is nondistended. Mild tenderness. Extremities: No swelling or edema. SKIN: No jaundice. 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 No focal motor weakness per se. Her gait is slightly ataxic. Needs help stepping up onto the exam table. 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 -Her KPS is 70%. -She has significant comorbid conditions including type 2 diabetes with pre- existing sensory neuropathy which has been fortunately stable for some time. She has impaired gait and mobility from spinalstenosis as well. Nonetheless she stands to benefit significantly from adjuvant therapy. -I therefore discussed and recommended adjuvant therapy with carboplatin, paclitaxel and pembrolizumab based on the recently reported results of the NRG- GY018 trial. -I discussed the rationale, logistics, potential risks (including but not limited to alopecia, cytopenias, infusion reactions, exacerbation of neuropathy, fatigue, nausea and vomiting, diarrhea, infectious complications and autoimmune complications and the small potential for as a consequenceof severe toxicity/complications of therapy), benefits and alternatives, as well as the personnel involved in the administration of carboplatin, paclitaxel and pembrolizumab. I answered her and her sisters questions in detail and she verbalized understanding and agreed with the recommended therapy.Please see the electronic consent document for details of doses and schedule. Plan: -Labs today. -Referral to general surgery for port. -Chemotherapy teaching. -Begin treatment last week July or first week August. -CBC/CMP/Mg/CA125/Straight back for cycle #1. -OV/CBC/CMP/Mg/CA125/TSH/T4/Cortisol for cycle #2. -Monitor symptoms of neuropathy carefully. I spent a total of 60 minutes on the date of the service which included preparing to see the patient, [id number] patient care, completing clinical documentation, obtaining and/or reviewing separately obtained history, performing a medically appropriate examination, counseling and educating the pat ient/family/caregiver, ordering medications, tests, or procedures, communicating results to the patient/family/caregiver, and care coordination (not separately reported). Nora Branham DO documented in this encounterBarnesville Hospital06-15-2023 Miscellaneous Notes* Telephone Encounter - Karthik Israel Pss - 08/13/2022 3:38 PM EDT Scheduled appt * Telephone Encounter - Vicky Andino LPN - 08/13/2022 3:14 PM EDT PSS- please schedule patient with Dr. Branham tomorrow, 08/14/2022, @ 1:30. Patient is aware and willbe here at 1:00. Vicky Andino LPN * Telephone Encounter - Renata Vanegas - 08/13/2022 11:07 AM EDT [facility] calling to get pt scheduled with . Referral in [facility]. DX: Endometrial cancer (HCC) [C54.1] Please review and advise on scheduling. Next New Patient slot for is September 08 [address] Cartagena is full on 08/31/2022. documented in this encounterBarnesville Hospital06-14-2023 History of Present illness Narrative* Memo Leigh MD - 08/12/2022 2:00 PM EDT DATE OF SERVICE: 08/12/2022 PROBLEM: Pricila Hooker presents for postop visit. SURGERY & DATE: 07/24/2022 - Exam under anesthesia, total laparoscopic hysterectomy, bilateral salpingo-oophorectomy, sentinel lymph node mapping with excision of bilateral pelvic sentinel lymph nodes, and extensive lysis of adhesions. PATHOLOGY: A. Odum lymph node, right, biopsy: - Isolated tumor cells involving 1 of 2 lymph nodes; see comment. B. 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 C. Uterus with cervix, right and left fallopian tubes, and ovaries, hysterectomy and bilateral salpingo-oophorectomy: - Cervix: No significant pathologic abnormality. - Endomyometrium: Endometrial endometrioid carcinoma with squamous differentiation, FIGO grade 2, invading outer myometrium (18 mm out of 19 mm, 95%) and showing extensive/multifocal lymphovascular invasion and the microcystic, elongated, and fragmented (MELF) pattern of invasion; see comment and synoptic report. - Serosa: No significant pathologic abnormality. - Bilateral ovaries: Adhesions. - Right fallopian tube: Hematosalpinx, no definitive carcinoma. - Left fallopian tube: Metastatic carcinoma. IMAGING: CT ABD/PELVIS: 06/16/2022 IMPRESSION: 1. Findings compatible with cystitis. 2. Approximately 8.5 cm tubular/serpiginous cystic lesion in the right adnexal region suspect for hydrosalpinx though right ovarian cystic lesion not excluded with certainty. Mild infiltration of the surrounding fat raises suspicion for the possibility of superinfection. A few small bowel loops in the pelvis appear tethered around this right adnexal cystic lesion and a short segment of sigmoid colon abuts the posterior aspect of this right adnexal lesion. 3. Small volume pelvic free fluid. 4. Heterogeneous appearance of the uterus potentially related to fibroids. Further evaluation with dedicated pelvic ultrasound would be of value. CXR: 07/22/2022 IMPRESSION: Left basilar mild atelectasis. LABS: CA 125 (U/mL) Date Value 06/23/2022 172 TUMOR BOARD: Management Options: -Recommend adjuvant treatment with systemic therapy, carbo/taxol +/- pembrolizumab -Referral to genetics FAMILY HISTORY Problem Relation Age of Onset Heart Mother irregular heart rate Colon Cancer Mother Stroke Mother Heart Father from heart attack Colon Cancer Maternal Grandfather SUBJECTIVE/INTERVAL HISTORY: Pricila Hinsonre reports that she feels well. No fever or chills. No shortness of breath, cough, or chest pain. No incisional redness, swelling, or drainage. Patient reports that her appetite is good. No abdominal pain, nausea, vomiting, diarrhea, or constipation. No dysuria, gross hematuria, urinary frequency, urinary urgency, or incontinence. Her ECOG performance status is zero (fully active, able to carry on all pre-disease performance without restriction). Carey Graham LPN I have confirmed and edited as necessary, the PFSH and ROS obtained by others. OBJECTIVE: VITALS: BP 126/61 Pulse 98 Temp 37.2 C (98.9 F) (Temporal) Wt 129.7 kg (286 lb) SpO2 93% BMI 44.79 kg/m ABDOMEN: Abdomen soft, non-tender, no hepatosplenomegaly. Incisions healing well.Some scabbing on LLQ incision. ASSESSMENT: Stage IIIC1 endometrioid type endometrial adenocarcinoma, FIGO grade 2, + LVSI, tumor size 6.5cm, MMR deficient 2. Family h/o colon cancer PLAN: 1. Discussed results of pathology and implications with patient. Discussed the findings from pathology. This is stage IIIc. We reviewed recommendations from tumor board. They suggest chemotherapy with carboplatin/ taxol +/- pembrolizumab (MMRd). We also discussed the option for pelvic RT/ chemoRT with/ without adjuvant chemo. We reviewed data for each. In the end she is most interested in tumor board reccs for chemotherapy. Side effects and benefits of chemotherapy were discussed with the patient and family including nausea, vomiting, alopecia, fatigue, myelosuppression, peripheral neuropathy, kidney failure, mucositis, diarrhea, constipation, infection, bleeding. The patient and family were allowed enough time to ask questions. All questions were answered to their satisfaction. Patient and family verbalized understanding of treatment plan and agreed to proceed with therapy. They would like to proceed with chemotherapy, but receive this in [place]. Will try to coordinate. Plan Carboplatin AUC5/ Taxol 175mg/m2 d1 q21d x 6 cycles. -Can consider adding pembrolizumab after 3-4 cycles if she is tolerating well. We discussed different toxicities seen with immunotherapy vs chemotherapy. -I would also consider vaginal brachytherapy to decrease local vaginal recurrence. Can see rad onc during chemo if she would like to consider. 2. Postop restrictions reviewed. 3. Medical genetics consult for family h/o colon cancer, even though MMRd with +Methylation Total face to face time 30 minutes with 5 minutes for postop care and 25 minutes solely for counseling and discussion of adjuvant chemotherapy and coordinating chemotherapy care. Memo Leigh MD A copy of this office note and a letter were sent to: - Mukesh Khan MD - Vinh Van MD (PCP) documented in this encounterBarnesville Hospital06-06-2023 History of Present illness Narrative* Milka Bauer, [facility] - 08/04/2022 3:00 PM EDT Primary Care Pharmacy Visit CC (Reason for Consult): DM Goal: A1c<8% Last Collaborating Physician Visit: 06/05/22 Pricila Hooker is a 76 year old female presenting for follow up visit by telephone. Patient consents to pharmacy collaborative practice agreement. . At last visit with pharmacy on 04/10/22 the following changes were made: none HPI: Had laparoscopic hysterectomy on 07/24/22 Awaiting pathology results Appetite unchanged Feels BG readings have been stable No low BG GLYCEMIC CONTROL: Glucometer present at visit: No Hypoglycemia: denies SMBG's: BG readings typically 120s-160s Highest BG readings was 180s Lowest 120s ROS: As above. Patient denies CP, SOB, MCKENZIE, blurred vision, dizziness or lightheadedness Patient denies nausea, vomiting, diarrhea, abdominal pain Patient denies symptoms of hypoglycemia (sweating, anxiety, palpitations, hunger, and tremor) Patient denies symptoms of hyperglycemia (polyuria, polydipsia, polyphagia) Patient denies potential medication adverse effects Past medical, family and social history reviewed and updated. MEDICATIONS: Adherence: denies missed doses ALLERGIES Allergen Reactions Adhesive Tape (Bailey* Rash Current Outpatient Medications Medication Sig Dispense Refill ibuprofen (MOTRIN) 600 mg tablet Take 1 tablet by mouth every 6 hours as needed for pain. Take withfood. 60 tablet 0 acetaminophen (TYLENOL EXTRA STRENGTH) 500 mg tablet Take 2 tablets by mouth every 6 hours as needed for pain. 60 tablet 0 senna (SENOKOT) 8.6 mg tab Take 1 tablet by mouth twice daily. 60 tablet 0 lisinopril (ZESTRIL) 5 mg tablet Take 1 tablet by mouth once daily. 90 tablet 3 CINNAMON gabapentin (NEURONTIN) 100 mg capsule Take 1 capsule by mouth three times daily for 90 days. 90 capsule 3 atorvastatin (LIPITOR) 40 mg tablet TAKE 1 TABLET BY MOUTH ONCE DAILY AT BEDTIME FOR CHOLESTEROL 90tablet 3 meloxicam (MOBIC) 15 mg tablet Take 1 tablet by mouth once daily. With food. 90 tablet 3 amitriptyline (ELAVIL) 50 mg tablet Take 1 tablet by mouth daily at bedtime. 30 tablet 5 metFORMIN (GLUCOPHAGE) 500 mg tablet Take 2 tablets by mouth twice daily with meals. . 360 tablet 3 Cholecalciferol, Vitamin D3, 125 mcg (5,000 unit) cap Take 5,000 Units by mouth once daily. Lancets lancets Test one time daily, Insulin Dep? No E11.9 DM 2 200 Each 4 alcohol swabs (ALCOHOL PADS) Test one time daily, Insulin Dep? No E11.9 DM 2 200 Each 4 blood sugar diagnostic (BLOOD GLUCOSE TEST) test strip Test one time daily, Insulin Dep? No E11.9 DM 2 200 Strip 4 dulaglutide (TRULICITY) 3 mg/0.5 mL pen injector Inject 3 mg subcutaneously one time a week. Patient Assistance Medication. 2 mL 1 glimepiride (AMARYL) 4 mg tablet TAKE 1 TABLET BY MOUTH TWICE DAILY WITH MEALS 180 tablet 3 nutritional supplement/fiber (KETO FORMULA ORAL) Take 800 mg by mouth. (Patient not taking: Reported on 12/29/2021) Aspirin 81 mg ORAL Tab Take one(1) tablet daily. 0 No current facility-administered medications for this visit. EXAM: Last 3 Encounter BP Readings: Date: BP: 07/24/2022 171/70 07/22/2022 142/74 07/21/2022 168/88 Wt: 133.4 kg (294 lb) BMI: 46.05 kg/(m^2) LABS: reviewed Lab Results Component Value Date HBA1C 8.0 07/22/2022 HBA1C 8.6 12/29/2021 HBA1C 12.3 09/26/2021 HBA1C 9.7 07/11/2020 HBA1C 11.5 03/28/2020 HBA1C 12.1 03/09/2019 Glucose 264 06/11/2022 BUN 17 06/11/2022 Creatinine 0.93 06/11/2022 Sodium 134 06/11/2022 Potassium 4.5 06/11/2022 Chloride 94 06/11/2022 CO2 26 06/11/2022 Protein, Total 7.0 06/11/2022 Albumin 3.6 06/11/2022 Calcium 9.2 06/11/2022 Alkaline Phosphatase 76 06/11/2022 Bilirubin, Total 0.5 06/11/2022 AST 18 06/11/2022 ALT 25 06/11/2022 Lab Results Component Value Date CHOL 133 09/26/2021 CHOL 141 03/28/2020 LDL 43 09/26/2021 LDL 63 03/28/2020 HDL 34 09/26/2021 HDL 37 03/28/2020 TG 279 09/26/2021 TG 204 03/28/2020 Albumin/Creat Ratio (mg/g) Date Value 09/26/2021 50 (H) eGFR- (no units) Date Value 03/28/2020 >60 ASSESSMENT/PLAN: 1. Type 2 diabetes mellitus without complication, with no history of insulin use (HCC) - ICD9: 250.00, ICD10: E11.9 - Uncontrolled. A1c goal <8%. A1c almost at goal at last check. SMBGs within goal range. - Continue current medications - Counseled on healthy diet and regular exercise Follow up: Pharmacy follow up: as needed per patient preference Milka Bauer PharmD, BCACP Primary Care Clinical Pharmacist The majority of the pharmacy visit (> 50%) was spent counseling and/or coordinating care for thepatient. interaction: telephonic time was 20 minutes. documented in this encounterBarnesville Hospital06-01-2023 Miscellaneous Notes* Telephone Encounter - ALEXANDRO Guerrero - 07/30/2022 12:43 PM EDT Telephoned the patient to schedule a new Primary Care pharmacy appt. Left a message. Made two attempts to contact the patient. Patient was sent [employer] message. If the patient returns a call, an appt will be scheduled. Encounter routed to the clinical pharmacist. * Telephone Encounter - Aggie ENAMORADO - 07/29/2022 3:13 PM EDT 1st attempt to schedule. Called and lmom * Telephone Encounter - Milka Bauer RPh - 07/29/2022 2:52 PM EDT Primary Care Pharmacy Rescheduling Outreach Call center, please contact patient and reschedule telephone visit for Diabetes management within ~2 week(s). (Visit length: 30 minutes) Thank you, Milka Bauer RPh 07/29/2022 2:52 PM documented in this encounterBarnesville Hospital05-30-2023 History of Present illness Narrative* Zora Cason, NETSUITE CONSULTANT.DIRECTOR MARKETING - 07/28/2022 9:03 AM EDT TELEVISIT PROGRESS NOTE I have communicated my name and active licensure. The patient's identity and physical location wereverified at the time of this visit. Either the patient or their legal technical service representative has been informed of the risks and benefits of -- and alternatives to -- treatment through a remote evaluation andconsents to proceed with the evaluation remotely. This is a telephone encounter initiated for an established patient, parent or guardian not originating from a related Evaluation & Management service provided within the previous 7 days nor leading to an Evaluation & Management service or procedure within the next 24 hours or soonest available appointment. Patient name and birthday verified: Yes Location of patient: Home/[place] DATE OF SERVICE: 07/28/2022 REASON FOR TELEVISIT: Postop SURGERY & DATE: 07/24/2022 - Exam under anesthesia, total laparoscopic hysterectomy, bilateral salpingo-oophorectomy, sentinel lymph node mapping with excision of bilateral pelvic sentinel lymph nodes, and extensive lysis of adhesions. PATHOLOGY: Pending SUBJECTIVE/INTERVAL HISTORY: Pricila Bridges So reports that she feels well. No fever or chills. No vaginal bleeding or discharge. No incisional redness, swelling, or drainage. Patient reports that herappetite is good. No abdominal pain, nausea, vomiting, diarrhea, or constipation. No dysuria, grosshematuria, urinary frequency, urinary urgency, or incontinence. OBJECTIVE: Deferred for televisit ASSESSMENT: 76 yo S/P TLH/BSO/sentinel nodes, doing well postop PLAN: 1. Final pathology is still pending. Will notify patient of results once available. 2. Postop restrictions and wound care reviewed. 3. Follow up with Dr. Leigh as scheduled on 08/12/2022. Zora Cason APRN.CNP CC: Memo Leigh MD documented in this encounterBarnesville Hospital05-24-2023 History of Present illness Narrative* Britni Hopson RT(R) - 07/22/2022 4:00 PM EDT Radiology Service Progress Note PATIENT NAME: Pricila Hooker DATE OF SERVICE: July 22, 2022 TIME: 3:57 PM PATIENT IDENTITY VERIFICATION COMPLETED USING TWO (2) IDENTIFIERS: Name and Date of confirmedby patient verbally. FALL SCREENING: Has the patient had 2 falls in the last year or 1 fall with injury or currently using an Ambulatory Assistive Device (Walker, Cane, Wheelchair, Crutches, etc.)? Yes, Patient High Riskfor Falls What interventions were put in place to prevent falls during this visit? Instructed Patient to Callfor Help if Needed, Offered Assistance with Transfers/Clothing, and Increased Observations by Caregivers PATIENT GENDER DATA: Female. status: : No status: NO. PATIENT RELEVANT IMPLANT DATA REVIEWED: Yes RADIOLOGY DEPARTMENT: General X-ray: Exam(s) Completed: Chest X-Ray PERIPHERAL IV DATA: Not applicable SIGNED BY: RT Immanuel(R) July 22, 2022 3:57 PM documented in this encounterBarnesville Hospital05-12-2023 Miscellaneous Notes* Telephone Encounter - Supa Matute APRN.CNP - 07/10/2022 9:01 AM EDT The following approved medication requests have been transmitted electronically. Requested Prescriptions Pending Prescriptions Disp Refills gabapentin (NEURONTIN) 100 mg capsule 90 capsule 3 Sig: Take 1 capsule by mouth three times daily for 30 days. Supa Matute APRN.CNP * Telephone Encounter - Chikis Khan MA - 07/10/2022 8:51 AM EDT Patient has been identified by name and date of : Yes Requested Prescriptions Pending Prescriptions Disp Refills gabapentin (NEURONTIN) 100 mg capsule 90 capsule 3 Sig: Take 1 capsule by mouth three times daily for 30 days. RX INSTRUCTIONS: Patient aware RX will be sent to pharmacy. No need to notify patient. Chikis Khan MA Lyla 11/2021 routine No appointment scheduled Last refill; 11/2021 * Telephone Encounter - Constanza Art - 07/10/2022 8:18 AM EDT Patient has been identified by name and date of : Yes, Provider Dr. Van Date 07/10/22 Time 820 Patient phones for refill(s): Requested Prescriptions Pending Prescriptions Disp Refills gabapentin (NEURONTIN) 100 mg capsule 90 capsule 3 Sig: Take 1 capsule by mouth three times daily for 30 days. Date of last office visit in primary care: 06/05/22 Last 2 Encounter Wt Readings: Date: Wt: 06/30/2022 133.8 kg (295 lb) 06/05/2022 131.1 kg (289 lb) Previous labs/tests for medication: Not applicable Please advise. Thank you. Constanza Art documented in this encounterBarnesville Hospital05-02-2023 Instructions* Patient Instructions* Mukesh Khan MD - 06/30/2022 11:29 AM EDT Main [place] directions [address] [facility] documented in this encounterBarnesville Hospital05-02-2023 History of Present illness Narrative* Mukesh Khan MD - 06/30/2022 10:46 AM EDT Pricila Hooker is a 76 year old female who presents for problem visit. HPI: Patient presents with her sister to discuss test results & plan of care. She reports seeing her DIRECTOR MARKETING for pelvic pain & bladder concerns. After taking cipro & pyridium she is feeling alittle better. OB History No obstetric history on file. Service Provider History LMP: Postmenopausal Age at Menarche: Age at First : Age at Menopause: Service Provider History Comments: Sexual Activity: Not Asked; No partner data on record; not asked Contraception: No contraception data on record PAST MEDICAL HISTORY Diagnosis Date Acute cholecystitis 01/04/07 Benign neoplasm of colon Diabetes mellitus without mention of complication Hypercholesteremia Hypertension Neuropathy PAST SURGICAL HISTORY Procedure Laterality Date ABDOMINAL SURGERY HX ARTHRP KNE CONDYLE&PLATU MEDIAL&LAT COMPARTMENTS 05/11/2011 Knee replacement, total right ARTHRP KNE CONDYLE&PLATU MEDIAL&LAT COMPARTMENTS 01/2011 left CATARACT EXTRACTION HX Left COLONOSCOPY FLX DX W/COLLJ SPEC WHEN PFRMD 12/28/2007 Colonoscopy COLONOSCOPY FLX DX W/COLLJ SPEC WHEN PFRMD 06/17/2012 Colonoscopy COLONOSCOPY FLX DX W/COLLJ SPEC WHEN PFRMD 11/05/2017 Colonoscopy EYE SURGERY HX JOINT REPLACEMENT HX LAPS SURG CHOLECYSTECTOMY W/CHOLANGIOGRAPHY 01/04/2007 FAMILY HISTORY Problem Relation Age of Onset Heart Mother irregular heart rate Colon Cancer Mother Stroke Mother Heart Father from heart attack Colon Cancer Maternal Grandfather Social History Tobacco Use Smoking status: Former Packs/day: 0.50 Years: 20.00 Pack years: 10.00 Types: Cigarettes Quit date: 11/06/1967 Years since quittin.6 Smokeless tobacco: Never Vaping Use Vaping Use: Never used Substance Use Topics Alcohol use: No Drug use: No Current Outpatient Medications Medication Sig atorvastatin (LIPITOR) 40 mg tablet TAKE 1 TABLET BY MOUTH ONCE DAILY AT BEDTIME FOR CHOLESTEROL meloxicam (MOBIC) 15 mg tablet Take 1 tablet by mouth once daily. With food. amitriptyline (ELAVIL) 50 mg tablet Take 1 tablet by mouth daily at bedtime. metFORMIN (GLUCOPHAGE) 500 mg tablet Take 2 tablets by mouth twice daily with meals. . gabapentin (NEURONTIN) 100 mg capsule Take 1 capsule by mouth three times daily for 30 days. Cholecalciferol, Vitamin D3, 125 mcg (5,000 unit) cap Take 5,000 Units by mouth once daily. Lancets lancets Test one time daily, Insulin Dep? No E11.9 DM 2 alcohol swabs (ALCOHOL PADS) Test one time daily, Insulin Dep? No E11.9 DM 2 blood sugar diagnostic (BLOOD GLUCOSE TEST) test strip Test one time daily, Insulin Dep? No E11.9 DM 2 dulaglutide (TRULICITY) 3 mg/0.5 mL pen injector Inject 3 mg subcutaneously one time a week. Patient Assistance Medication. glimepiride (AMARYL) 4 mg tablet TAKE 1 TABLET BY MOUTH TWICE DAILY WITH MEALS nutritional supplement/fiber (KETO FORMULA ORAL) Take 800 mg by mouth. (Patient not taking: Reported on 12/29/2021) lisinopril (ZESTRIL, PRINIVIL) 5 mg tablet Take 1 tablet by mouth once daily. acetaminophen (TYLENOL) 325 mg tablet Take 650 mg by mouth every 6 hours as needed. Aspirin 81 mg ORAL Tab Take one(1) tablet daily. No current facility-administered medications for this visit. Allergies As of Date: 06/30/2022 Allergen Noted Reaction ADHESIVE TAPE (ROSINS) 02/04/2011 Rash Fully Assessed 06/30/2022 Allergies and current medication updated:Yes EXAM: BP 130/70 Wt 295 lb (133.8kg) GENERAL: pleasant, female in no apparent distress ASSESSMENT AND PLAN: Encounter Diagnosis ICD-10-CM 1. Elevated cancer antigen 125 (CA-125) R97.1 CONSULT TO GYNECOLOGIC/ONCOLOGY 2. Adnexal mass N94.89 CONSULT TO GYNECOLOGIC/ONCOLOGY 3. Elevated CA-125 R97.1 4. Endometrial thickening on ultrasound R93.[address] of the abdomen R93.5 76yo female with adnexal mass & elevated CA-125 Reviewed all test results including pelvic US, CT & CA-125 with patient. Discussed implications& answered all questions. She agreed to proceed with a referral to tumbler drier operator oncology for further evaluation & surgical management. Medical Decision Making: Problems: Moderate: New problem with uncertain prognosis Data: Unique test result(s) reviewed: 3+ Risk: Moderate: Moderate risk from testing/treatment Medical Decision Making Level: 4 - Moderate Mukesh Khan MD documented in this encounterBarnesville Hospital05-02-2023 Miscellaneous Notes* Telephone Encounter - Rocío Kwon RN - 06/30/2022 9:26 AM EDT I called patient at the request of Dr Khan and left her a message to return call. She has an appointment today with Dr Khan in person. Dr Khan is offering to see patient in person or virtual or patient ca cancel and wait to see Service Provider/Oc . referral has been placed. Please offer patient these options when she returns call. documented in this encounterBarnesville Hospital04-27-2023 Miscellaneous Notes* Telephone Encounter - Hood Viera RN - 06/25/2022 9:12 AM EDT Pt returned call to clarify instructions given yesterday. Transferred to scheduling to set up FENCE MACHINE OPERATOR appt. Hood Viera RN * Telephone Encounter - Cydney Reagan LPN - 06/24/2022 6:41 PM EDT Patient notified of results, verbalizes understanding of instructions. Cydney Reagan LPN. * Telephone Encounter - Billie Hwang APRN.CNP - 06/24/2022 6:31 PM EDT Can you please call the patient and let her know that I reviewed her recent ultrasound and lab results. Transvaginal ultrasound does show some thickening of the endometrium as well as an elongated cysticstructure on the right side. Recommendation is for a possible biopsy of the endometrium if needed. The lab marker CA125 was elevated, this can be an indication of possible malignancy. I have placed a consult for gynecology, I would like her to be seen as soon as possible. As well asschedule appointment with invasive gynecologic surgery as discussed last week. Please let me know if she has any questions. Billie Hwang APRN.CNP documented in this encounterBarnesville Hospital04-25-2023 History of Present illness Narrative* Anai Dupree RDMS - 06/23/2022 11:30 AM EDT Radiology Service Progress Note PATIENT NAME: Pricila Hooker DATE OF SERVICE: June 23, 2022 TIME: 12:15 PM PATIENT IDENTITY VERIFICATION COMPLETED USING TWO (2) IDENTIFIERS: Name and Date of confirmedby patient verbally. FALL SCREENING: Has the patient had 2 falls in the last year or 1 fall with injury or currently using an Ambulatory Assistive Device (Walker, Cane, Wheelchair, Crutches, etc.)? No PATIENT GENDER DATA: Female. status: : No status: NO. PATIENT RELEVANT IMPLANT DATA REVIEWED: Not Applicable RADIOLOGY DEPARTMENT: Ultrasound PERIPHERAL IV DATA: Not applicable SIGNED BY: Anai Dupree RDMS June 23, 2022 12:15 PM documented in this encounterBarnesville Hospital04-19-2023 Miscellaneous Notes* Telephone Encounter - Billie Hwang APRN.CNP - 06/17/2022 12:54 PM EDT Called and spoke to patient. Recent CT scan came back with abnormal findings. Discussed this case with general surgery and gynecology. Gynecology recommending further testing and consult to minimally invasive gynecological surgery department. A stat transvaginal ultrasound and CA 125 has been placed. Patient refers she is feeling better but still having ongoing mild abdominal discomfort. Instructed to contact the office if symptoms increase in intensity. She verbalized understanding ofcurrent plan, all questions answered. CT scan of abdomen and pelvis: 1. Findings compatible with cystitis. 2. Approximately 8.5 cm tubular/serpiginous cystic lesion in the right adnexal region suspect for hydrosalpinx though right ovarian cystic lesion not excluded with certainty. Mild infiltration of the surrounding fat raises suspicion for the possibility of superinfection. A few small bowel loops in the pelvis appear tethered around this right adnexal cystic lesion and a short segment of sigmoid colon abuts the posterior aspect of this right adnexal lesion. 3. Small volume pelvic free fluid. 4. Heterogeneous appearance of the uterus potentially related to fibroids. Further evaluation with dedicated pelvic ultrasound would be of value. Billie Hwang APRN.CNP documented in this encounterBarnesville Hospital04-18-2023 History of Present illness Narrative* Sofia Corrales RT(R) - 06/16/2022 3:20 PM EDT Radiology Service Progress Note DATE OF SERVICE: June 16, 2022 TIME: 3:12 PM PATIENT IDENTITY VERIFICATION COMPLETED USING TWO (2) STANDARD IDENTIFIERS: Name and Date of confirmed by patient verbally. FALL SCREENING: Has the patient had 2 falls in the last year or 1 fall with injury or currently using an Ambulatory Assistive Device (Walker, Cane, Wheelchair, Crutches, etc.)? No PATIENT GENDER DATA: Female. status: : No status: NO. PATIENT RELEVANT IMPLANT DATA REVIEWED: Yes ALLERGIES: Reviewed and unchanged CONTRAST ALLERGY: NO. EXAM: CT -CONTRAST INDUCED NEPHROPATHY RISK FACTORS: Patient age > 60 years CREATININE: Creatinine Date Value Ref Range Status 06/11/2022 0.93 0.58 - 0.96 mg/dL Final 12/29/2021 0.77 0.58 - 0.96 mg/dL Final 09/26/2021 0.85 0.58 - 0.96 mg/dL Final Estimated Glomerular Filtration Rate Date Value Ref Range Status 06/11/2022 64 >=60 mL/min/1.73m Final Comment: Estimated Glomerular Filtration Rate (eGFR) is calculated using the 2020 CKD-EPI creatinine equation. This equation utilizes serum creatinine, sex, and age as parameters. The creatinine assay has traceable calibration to isotope dilution- mass spectrometry. Refer to KDIGO guidelines for clinical interpretation. In patients with unstable renal function, e.g. those with acute kidney injury, the eGFRmay not accurately reflect actual GFR. eGFR- Date Value Ref Range Status 03/28/2020 >60 Final P.O.C.T. RESULTS: POC done: Yes, See Lab Tab June 16, 2022 TREATMENT: N/A PERIPHERAL IV DATA: Ambulatory: A peripheral IV was started in the Left hand with a Angio cath: 22 gauge. RADIOLOGY DEPARTMENT: CT; Exam(s) Completed: Abdomen/Pelvis SIGNATURE: RT Adi(R) PATIENT NAME: Pricila Hooker DATE: June 16, 2022 TIME: 3:12 PM documented in this encounterBarnesville Hospital04-13-2023 Miscellaneous Notes* Telephone Encounter - Billie Hwang APRN.CNP - 06/11/2022 12:52 PM EDT Noted Billie Hwang APRN.CNP * Telephone Encounter - Cydney Reagan LPN - 06/11/2022 12:38 PM EDT Patient sister notified of results, verbalizes understanding of instructions. Pt was sitting next to her. Cydney Reagan LPN * Telephone Encounter - Billie Hwang APRN.CNP - 06/11/2022 12:30 PM EDT Can you please call the patient and let her know that I received her ultrasound results. Ultrasound showed a left renal cyst and a possible ovarian cyst/mass. Radiology recommends further imaging to evaluate this. I have placed a order for CT abdomen/pelvis with IV contrast. She can schedule this at any time. Can you please ask how she has been feeling? Have her symptoms improved at all? Billie Hwang APRN.CNP documented in this encounterBarnesville Hospital04-13-2023 History of Present illness Narrative* Ana María Huber RDMS - 06/11/2022 10:45 AM EDT Radiology Service Progress Note PATIENT NAME: Pricila Hooker DATE OF SERVICE: June 11, 2022 TIME: 12:03 PM PATIENT IDENTITY VERIFICATION COMPLETED USING TWO (2) IDENTIFIERS: Name and Date of confirmedby patient verbally. FALL SCREENING: Has the patient had 2 falls in the last year or 1 fall with injury or currently using an Ambulatory Assistive Device (Walker, Cane, Wheelchair, Crutches, etc.)? Yes, Patient High Riskfor Falls What interventions were put in place to prevent falls during this visit? Instructed Patient to Callfor Help if Needed, Offered Assistance with Transfers/Clothing, Instructed Patient to Remain Seated(Not on Exam Table) Until Exam, and Increased Observations by Caregivers PATIENT GENDER DATA: Female. status: : No status: N/A PATIENT RELEVANT IMPLANT DATA REVIEWED: Not Applicable RADIOLOGY DEPARTMENT: Ultrasound PERIPHERAL IV DATA: Not applicable SIGNED BY: Ana María Huber RDMS RVT June 11, 2022 12:03 PM documented in this encounterBarnesville Hospital04-12-2023 Miscellaneous Notes* Telephone Encounter - Cydney Reagan LPN - 06/10/2022 4:01 PM EDT Patient notified of results, verbalizes understanding of instructions. Cydney Reagan LPN * Telephone Encounter - Billie Hwang APRN.CNP - 06/10/2022 1:13 PM EDT Can you please call the patient and let her know that I had to reorder the labs, they . Orders are in and she can complete these at any time. Thank you. Billie Hwang APRN.CNP * Telephone Encounter - YUE Gan - 06/10/2022 11:41 AM EDT Patient called asking about lab work. She thought that the office had told her to get labs done when she comes in for her ultrasound for tomorrow. Currently there is no active lab requests in her chart. Please review and advise. RadhaYUE Aldridge June 10, 2022 11:42 AM documented in this encounterBarnesville Hospital04-10-2023 Miscellaneous Notes* Telephone Encounter - Talia Alba Ma - 06/08/2022 9:12 AM EDT Call to pt and notified her of results below. She states that she is feeling better but still having some pain/burning with urination. Urine is orange from medication. She will continue to keep appt's as scheduled. Denies any further questions. Talia Alba Ma * Telephone Encounter - Billie Hwang APRN.CNP - 06/08/2022 7:07 AM EDT Can you please call the patient and let her know that I reviewed her urine results. Urine culture came back for mixed microbiota, which is usually due to contamination when collection sample. Microanalysis did note blood. Can you please ask how she has been feeling since starting antibiotics? I would still recommend that she continue to take medication if symptoms are improving. I would like her to still get labs and ultrasound completed. Please let me know if she has any questions. Thank you. Billie Hwang APRN.CNP documented in this encounterBarnesville Hospital04-07-2023 Instructions* Patient Instructions* Billie Hwang APRN.CNP - 06/05/2022 10:35 AM EDT Urine culture will be sent off Start Cipro, take with food. May use pyridium for pain, will turn urine orange. May use Motrin and tylenol as needed for pain. Stay well hydrated Get labs completed get ultrasound completed Worsening symptoms go to ER. Follow-up pending test results or sooner as needed. documented in this encounterBarnesville Hospital04-07-2023 History of Present illness Narrative* Billie Hwang APRN.DIRECTOR MARKETING - 06/05/2022 10:20 AM EDT This is a 76 year old female who presents today with: Patient presents with: Acute Visit: lower abdominal pain HISTORY OF PRESENT ILLNESS: Pricila Hooker is a 76 year old female. Patient presents with: Acute Visit: lower abdominal pain Here in the office for abdominal cramping that started 2 days ago. Cramping pain with movement or activity. Nothing seems to make the symptoms better or worse. Had BM today which was normal. Denies any nausea, vomiting, diarrhea, or urinary symptoms. No fever or chills. Had vaginal bleeding in April assoicated with UTI. Labs and ultrasound was ordered to evaluate, needs completed. PAST MEDICAL HISTORY: PAST MEDICAL HISTORY Diagnosis Date Acute cholecystitis 01/04/07 Benign neoplasm of colon Diabetes mellitus without mention of complication Hypercholesteremia Hypertension Neuropathy PAST SURGICAL HISTORY Procedure Laterality Date ABDOMINAL SURGERY HX ARTHRP KNE CONDYLE&PLATU MEDIAL&LAT COMPARTMENTS 05/11/2011 Knee replacement, total right ARTHRP KNE CONDYLE&PLATU MEDIAL&LAT COMPARTMENTS 01/2011 left CATARACT EXTRACTION HX Left COLONOSCOPY FLX DX W/COLLJ SPEC WHEN PFRMD 12/28/2007 Colonoscopy COLONOSCOPY FLX DX W/COLLJ SPEC WHEN PFRMD 06/17/2012 Colonoscopy COLONOSCOPY FLX DX W/COLLJ SPEC WHEN PFRMD 11/05/2017 Colonoscopy EYE SURGERY HX JOINT REPLACEMENT HX LAPS SURG CHOLECYSTECTOMY W/CHOLANGIOGRAPHY 01/04/2007 ALLERGIES Adhesive Tape (Rosins) MEDICATIONS Current Outpatient Medications Medication Sig meloxicam (MOBIC) 15 mg tablet Take 1 tablet by mouth once daily. With food. amitriptyline (ELAVIL) 50 mg tablet Take 1 tablet by mouth daily at bedtime. metFORMIN (GLUCOPHAGE) 500 mg tablet Take 2 tablets by mouth twice daily with meals. . gabapentin (NEURONTIN) 100 mg capsule Take 1 capsule by mouth three times daily for 30 days. Cholecalciferol, Vitamin D3, 125 mcg (5,000 unit) cap Take 5,000 Units by mouth once daily. Lancets lancets Test one time daily, Insulin Dep? No E11.9 DM 2 alcohol swabs (ALCOHOL PADS) Test one time daily, Insulin Dep? No E11.9 DM 2 blood sugar diagnostic (BLOOD GLUCOSE TEST) test strip Test one time daily, Insulin Dep? No E11.9 DM 2 dulaglutide (TRULICITY) 3 mg/0.5 mL pen injector Inject 3 mg subcutaneously one time a week. Patient Assistance Medication. glimepiride (AMARYL) 4 mg tablet TAKE 1 TABLET BY MOUTH TWICE DAILY WITH MEALS nutritional supplement/fiber (KETO FORMULA ORAL) Take 800 mg by mouth. (Patient not taking: Reported on 12/29/2021) lisinopril (ZESTRIL, PRINIVIL) 5 mg tablet Take 1 tablet by mouth once daily. atorvastatin (LIPITOR) 40 mg tablet TAKE 1 TABLET BY MOUTH ONCE DAILY AT BEDTIME FOR CHOLESTEROL acetaminophen (TYLENOL) 325 mg tablet Take 650 mg by mouth every 6 hours as needed. Aspirin 81 mg ORAL Tab Take one(1) tablet daily. No current facility-administered medications for this visit. FAMILY HISTORY Problem Relation Age of Onset Heart Father from heart attack Heart Mother irregular heart rate Colon Cancer Mother Social History Tobacco Use Smoking status: Former Packs/day: 0.50 Years: 20.00 Pack years: 10.00 Types: Cigarettes Quit date: 11/06/1967 Years since quittin.6 Smokeless tobacco: Never Substance Use Topics Alcohol use: No Drug use: No REVIEW OF SYSTEMS GENERAL: No weight loss, malaise or fevers/chills HEENT: Negative for frequent or significant headaches, No changes in hearing or vision. NECK: Negative for lumps, goiter, pain and significant neck swelling RESPIRATORY: Negative for cough, hemoptysis, wheezing, dyspnea or shortness of breath CARDIOVASCULAR: Negative for chest pain, leg swelling, orthopnea, or palpitations GI: + Abdominal cramping : No history of dysuria, frequency or incontinence MUSCULOSKELETAL: Negative for joint pain or swelling. SKIN: Negative for lesions, rash, and itching ENDOCRINE: Negative for cold or heat intolerance, polyuria, polydipsia and goiter NEURO: No history of headaches, syncope, paralysis, seizures or tremors MOOD: Negative for depression, anxiety, or suicidal ideation. EXAM: BP 122/70 Pulse 115 Resp 20 Wt 131.1 kg (289 lb) SpO2 95% BMI 43.94 kg/m PHYSICAL EXAM: General Appearance: Well appearing, alert, in no acute distress, well-hydrated, well nourished. Skin: Skin color, texture, turgor normal, no suspicious rashes or lesions. Head: Normocephalic, no masses, lesions, tenderness or abnormalities. Eyes: Anicteric sclera. Extraocular movements are intact. Lungs: Lungs clear to auscultation. No wheezing, rhonchi, rales. Heart: RRR without murmur, gallop, or rubs. No ectopy. Abdomen: Abdomen soft. Bowel sounds normal. No masses, organomegaly, Negative CVA tenderness. + Tenderness noted in lower abdomen/suprapubic. Extremities: No deformities, edema, skin discoloration, clubbing or cyanosis. Good capillary refill. Peripheral Pulses: Normal, Capillary refill <2secs, strong peripheral pulses, Pulses palpable. Neurologic: Gait normal. Sensation grossly intact. UA: + blood, trace, protein, Leuks ASSESSMENT/PLAN: 1. Acute cystitis with hematuria - ICD9: 595.0, ICD10: N30.01 (primary diagnosis) - Will treat for UTI - Start Cipro, take as directed. - May use pyridium as needed for pain. - Stay well hydrated. - CIPROFLOXACIN 500 MG TABLET - PHENAZOPYRIDINE 100 MG TABLET 2. Abdominal cramping - ICD9: 789.00, ICD10: R10.9 - Symptoms may be related to UTI - Recommend that she complete labs and transvaginal ultrasound that was ordered back in April due to vaginal bleeding - Any worsening symptoms instructed to go to ER. - URINE CULTURE - URINALYSIS, WITH MICROSCOPIC Follow-up pending test results or sooner as needed. Discussed treatment plan and patient voices understanding. Patient's questions answered appropriately. Medications and potential side effects were discussed and patient voices understanding. Billie Hwang APRN.CNP This note was partially generated using [employer] voice recognition system. Note was reviewed for accuracy. There may be minor misspellings or grammar miscues with [employer] voice recognition. documented in this encounterBarnesville Hospital04-05-2023 Miscellaneous Notes* Telephone Encounter - Supa Matute APRN.CNP - 06/03/2022 11:22 AM EDT The following approved medication requests have been transmitted electronically. Requested Prescriptions Pending Prescriptions Disp Refills meloxicam (MOBIC) 15 mg tablet 90 tablet 3 Sig: Take 1 tablet by mouth once daily. With food. amitriptyline (ELAVIL) 50 mg tablet 30 tablet 5 Sig: Take 1 tablet by mouth daily at bedtime. Supa Matute APRN.SOLO * Telephone Encounter - Anika Freitas MA - 06/03/2022 10:12 AM EDT Patient has been identified by name and date of : Yes Requested Prescriptions Pending Prescriptions Disp Refills meloxicam (MOBIC) 15 mg tablet 90 tablet 3 Sig: Take 1 tablet by mouth once daily. With food. amitriptyline (ELAVIL) 50 mg tablet 30 tablet 5 Sig: Take 1 tablet by mouth daily at bedtime. RX INSTRUCTIONS: Patient aware RX will be sent to pharmacy. No need to notify patient. Patient last office visit: 04/09/22 Patient next office visit: none scheduled Anika Freitas MA * Telephone Encounter - Kizzy Enamorado - 06/03/2022 10:09 AM EDT Patient has been identified by name and date of : Yes Requested Prescriptions Pending Prescriptions Disp Refills meloxicam (MOBIC) 15 mg tablet 90 tablet 3 Sig: Take 1 tablet by mouth once daily. With food. RX INSTRUCTIONS: Patient aware RX will be sent to pharmacy. No need to notify patient. Kizzy Fleming Pss documented in this encounterBarnesville Hospital02-13-2023 Miscellaneous Notes* Telephone Encounter - Cydney Reagan LPN - 04/13/2022 9:19 AM EST Patient notified of results, verbalizes understanding of instructions. Pt stated just having slight spoting now. Feeling much better. Cydney Reagan LPN * Telephone Encounter - Billie Hwagn APRN.CNP - 04/13/2022 7:58 AM EST Can you please call the patient and let her know that I reviewed her urine test results. Urine culture did come back positive for a UTI. Antibiotic that was prescribed should treat this. Can you please asked the patient how she has been feeling? I would like to get repeat urine in 2 weeks to ensure that blood has cleared. Is she having any ongoing bleeding? Billie Hwang APRN.SOLO documented in this encounterBarnesville Hospital02-10-2023 History of Present illness Narrative* Sushilaodalis Bauer, [facility] - 04/10/2022 10:30 AM EST Primary Care Pharmacy Visit CC (Reason for Consult): DM Goal: A1c<8% Last Collaborating Physician/NETSUITE CONSULTANT Visit: 04/09/21 Pricila Hooker is a 76 year old female presenting for follow up visit by telephone. Patient consents to pharmacy collaborative practice agreement. At last visit with DIRECTOR MARKETING on 04/09/22 the following changes were made: ciprofloxacin started for acute cystitis. INTERIM HISTORY: Reports fasting BG in the 130s A few BG readings have been elevated the past few days Denies s/sx of hypoglycemia Having s/sx of UTI seen in office yesterday ans started on Cipro Has received [employer] supply in the new year and approved to [employer] program Current DM Medications: Metformin 500 mg - 2 tabs BID Glimepiride 4 mg BID Trulicity 3 mg once weekly ROS: Patient denies CP, SOB, MCKENZIE, blurred vision, dizziness or lightheadedness Patient denies nausea, vomiting, diarrhea, abdominal pain Patient denies symptoms of hypoglycemia (sweating, anxiety, palpitations, hunger, and tremor) Patient denies symptoms of hyperglycemia (polyuria, polydipsia, polyphagia) Patient denies potential medication adverse effects MEDICATIONS: Adherence: denies missed doses. 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 metFORMIN (GLUCOPHAGE) 500 mg tablet Take 2 tablets by mouth twice daily with meals. . gabapentin (NEURONTIN) 100 mg capsule Take 1 capsule by mouth three times daily for 30 days. Cholecalciferol, Vitamin D3, 125 mcg (5,000 unit) cap Take 5,000 Units by mouth once daily. Lancets lancets Test one time daily, Insulin Dep? No E11.9 DM 2 alcohol swabs (ALCOHOL PADS) Test one time daily, Insulin Dep? No E11.9 DM 2 blood sugar diagnostic (BLOOD GLUCOSE TEST) test strip Test one time daily, Insulin Dep? No E11.9 DM 2 dulaglutide (TRULICITY) 3 mg/0.5 mL pen injector Inject 3 mg subcutaneously one time a week. Patient Assistance Medication. amitriptyline (ELAVIL) 50 mg tablet Take 1 tablet by mouth daily at bedtime. glimepiride (AMARYL) 4 mg tablet TAKE 1 TABLET BY MOUTH TWICE DAILY WITH MEALS nutritional supplement/fiber (KETO FORMULA ORAL) Take 800 mg by mouth. (Patient not taking: Reported on 12/29/2021) lisinopril (ZESTRIL, PRINIVIL) 5 mg tablet Take 1 tablet by mouth once daily. atorvastatin (LIPITOR) 40 mg tablet TAKE 1 TABLET BY MOUTH ONCE DAILY AT BEDTIME FOR CHOLESTEROL meloxicam (MOBIC) 15 mg tablet Take 1 tablet by mouth once daily. With food. acetaminophen (TYLENOL) 325 mg tablet Take 650 mg by mouth every 6 hours as needed. Aspirin 81 mg ORAL Tab Take one(1) tablet daily. No current facility-administered medications for this visit. EXAM: Last 3 Encounter BP Readings: Date: BP: 04/09/2022 130/80 12/29/2021 130/98 12/02/2021 170/87 Wt: 134.3 kg (296 lb) BMI: 45.01 kg/(m^2) LABS: Lab Results Component Value Date HBA1C 8.6 12/29/2021 HBA1C 12.3 09/26/2021 HBA1C 9.7 07/11/2020 HBA1C 11.5 03/28/2020 HBA1C 12.1 03/09/2019 CMP: Glucose 199 12/29/2021 BUN 16 12/29/2021 Creatinine 0.77 12/29/2021 Sodium 139 12/29/2021 Potassium 4.2 12/29/2021 Chloride 101 12/29/2021 CO2 24 12/29/2021 Protein, Total 6.9 12/29/2021 Albumin 4.1 12/29/2021 Calcium 9.3 12/29/2021 Alkaline Phosphatase 69 12/29/2021 Bilirubin, Total 0.5 12/29/2021 AST 23 12/29/2021 ALT 23 12/29/2021 Creatinine clearance cannot be calculated (Unknown ideal weight.) No results found for: GFR eGFR- (no units) Date Value 03/28/2020 >60 EGFR: >60 mL/min/1.73m2 Lab Results Component Value Date CHOL 133 09/26/2021 CHOL 141 03/28/2020 LDL 43 09/26/2021 LDL 63 03/28/2020 HDL 34 09/26/2021 HDL 37 03/28/2020 TG 279 09/26/2021 TG 204 03/28/2020 The 10-year ASCVD risk score (Last WATSON, et al., 2019) is: 39.5% Values used to calculate the score: Age: 76 years Sex: Female Is Non- : No Diabetic: Yes Tobacco smoker: No Systolic Blood Pressure: 130 mmHg Is BP treated: Yes HDL Cholesterol: 34 mg/dL Total Cholesterol: 133 mg/dL Albumin/Creat Ratio (mg/g) Date Value 09/26/2021 50 (H) PHARMACOTHERAPY ASSESSMENT/PLAN: 1. Type 2 diabetes mellitus without complication, with no history of insulin use (HCC) - ICD9: 250.00, ICD10: E11.9 A1c goal < 8%; not at goal but largely improved (last A1c 8.6%); reports SMBG at goal on currentregimen; denies s/sx hypoglycemia; denies s/sx hyperglycemia; Patient is tolerating current regimenwith readings close to goal, will continue current regimen and recheck A1c. Renal function appropriate for continued use CONTINUE Metformin 500 mg - 2 tabs BID, Glimepiride 4 mg BID, Trulicity 3 mg once weekly Advised to complete ordered lab work in early April Follow up: Patient is not scheduled to see PCP team. Patient to follow up with pharmD in one month. Patient verbalized understanding of instructions. Milka Bauer PharmD, [facility] Primary Care Clinical Pharmacist The majority of the pharmacy visit (> 50%) was spent counseling and/or coordinating care for thepatient. [Telephonic] time was 20 minutes. documented in this encounterBarnesville Hospital02-09-2023 Instructions* Patient Instructions* Billie Hwang APRN.CNP - 04/09/2022 1:58 PM EST Urine will be sent off for testing. Start Cipro, take with food. Increase water intake. Schedule appointment for kidney ultrasound, if vaginal bleeding does not improve get vaginal ultrasound. Get labs completed. Follow up pending test results or sooner as needed. Red flag symptoms go to ER. documented in this encounterBarnesville Hospital02-09-2023 History of Present illness Narrative* Billie Hwang APRN.CNP - 04/09/2022 1:20 PM EST This is a 76 year old female who presents today with: Patient presents with: Acute Visit: Urinary burning, frequency HISTORY OF PRESENT ILLNESS: Pricila Hooker is a 76 year old female. Patient presents with: Acute Visit: Urinary burning, frequency Here in the office for dysuria and increased urinary frequency that started yesterday. Urine seems to smell off. Woke up early this morning and noticed blood on her sheets.Left flank pain, pain noticeable with activity. No history of kidney stones. No abdominal pain, fever, or chills. Having to wear pad. Bleeding is small amount. PAST MEDICAL HISTORY: PAST MEDICAL HISTORY Diagnosis Date Acute cholecystitis 01/04/07 Benign neoplasm of colon Diabetes mellitus without mention of complication Hypercholesteremia Hypertension Neuropathy PAST SURGICAL HISTORY Procedure Laterality Date ABDOMINAL SURGERY HX ARTHRP KNE CONDYLE&PLATU MEDIAL&LAT COMPARTMENTS 05/11/2011 Knee replacement, total right ARTHRP KNE CONDYLE&PLATU MEDIAL&LAT COMPARTMENTS 01/2011 left CATARACT EXTRACTION HX Left COLONOSCOPY FLX DX W/COLLJ SPEC WHEN PFRMD 12/28/2007 Colonoscopy COLONOSCOPY FLX DX W/COLLJ SPEC WHEN PFRMD 06/17/2012 Colonoscopy COLONOSCOPY FLX DX W/COLLJ SPEC WHEN PFRMD 11/05/2017 Colonoscopy EYE SURGERY HX JOINT REPLACEMENT HX LAPS SURG CHOLECYSTECTOMY W/CHOLANGIOGRAPHY 01/04/2007 ALLERGIES Adhesive Tape (Rosins) MEDICATIONS Current Outpatient Medications Medication Sig metFORMIN (GLUCOPHAGE) 500 mg tablet Take 2 tablets by mouth twice daily with meals. . gabapentin (NEURONTIN) 100 mg capsule Take 1 capsule by mouth three times daily for 30 days. Cholecalciferol, Vitamin D3, 125 mcg (5,000 unit) cap Take 5,000 Units by mouth once daily. Lancets lancets Test one time daily, Insulin Dep? No E11.9 DM 2 alcohol swabs (ALCOHOL PADS) Test one time daily, Insulin Dep? No E11.9 DM 2 blood sugar diagnostic (BLOOD GLUCOSE TEST) test strip Test one time daily, Insulin Dep? No E11.9 DM 2 dulaglutide (TRULICITY) 3 mg/0.5 mL pen injector Inject 3 mg subcutaneously one time a week. Patient Assistance Medication. amitriptyline (ELAVIL) 50 mg tablet Take 1 tablet by mouth daily at bedtime. glimepiride (AMARYL) 4 mg tablet TAKE 1 TABLET BY MOUTH TWICE DAILY WITH MEALS nutritional supplement/fiber (KETO FORMULA ORAL) Take 800 mg by mouth. (Patient not taking: Reported on 12/29/2021) lisinopril (ZESTRIL, PRINIVIL) 5 mg tablet Take 1 tablet by mouth once daily. atorvastatin (LIPITOR) 40 mg tablet TAKE 1 TABLET BY MOUTH ONCE DAILY AT BEDTIME FOR CHOLESTEROL meloxicam (MOBIC) 15 mg tablet Take 1 tablet by mouth once daily. With food. acetaminophen (TYLENOL) 325 mg tablet Take 650 mg by mouth every 6 hours as needed. Aspirin 81 mg ORAL Tab Take one(1) tablet daily. No current facility-administered medications for this visit. FAMILY HISTORY Problem Relation Age of Onset Heart Father from heart attack Heart Mother irregular heart rate Colon Cancer Mother Social History Tobacco Use Smoking status: Former Packs/day: 0.50 Years: 20.00 Pack years: 10.00 Types: Cigarettes Quit date: 11/06/1967 Years since quittin.4 Smokeless tobacco: Never Substance Use Topics Alcohol use: No Drug use: No REVIEW OF SYSTEMS GENERAL: No weight loss, malaise or fevers/chills HEENT: Negative for frequent or significant headaches, No changes in hearing or vision. NECK: Negative for lumps, goiter, pain and significant neck swelling RESPIRATORY: Negative for cough, hemoptysis, wheezing, dyspnea or shortness of breath CARDIOVASCULAR: Negative for chest pain, leg swelling, orthopnea, or palpitations GI: No nausea, vomiting, or diarrhea/constipation. No hematochezia/melena. No heartburn or reflux symptoms. : + Dysuria/increased urinary frequency/Bleeding/ Left Flank Pain MUSCULOSKELETAL: Negative for joint pain or swelling. SKIN: Negative for lesions, rash, and itching ENDOCRINE: Negative for cold or heat intolerance, polyuria, polydipsia and goiter NEURO: No history of headaches, syncope, paralysis, seizures or tremors MOOD: Negative for depression, anxiety, or suicidal ideation. EXAM: BP 130/80 Pulse 76 Resp 20 Wt 134.3 kg (296 lb) SpO2 95% BMI 45.01 kg/m PHYSICAL EXAM: General Appearance: Well appearing, alert, in no acute distress, well-hydrated, well nourished. Skin: Skin color, texture, turgor normal, no suspicious rashes or lesions. Head: Normocephalic, no masses, lesions, tenderness or abnormalities. Eyes: Anicteric sclera. Extraocular movements are intact. Lungs: Lungs clear to auscultation. No wheezing, rhonchi, rales. Heart: RRR without murmur, gallop, or rubs. No ectopy. Abdomen: Abdomen soft, non-tender. Bowel sounds normal. No masses, organomegaly, Left CVA tenderness. Extremities: No deformities, edema, skin discoloration, clubbing or cyanosis. Good capillary refill. Peripheral Pulses: Normal, Capillary refill <2secs, strong peripheral pulses, Pulses palpable. Neurologic: Gait normal. Reflexes normal and symmetric. Sensation grossly intact. Pelvic: Deferred pelvic exam at this time. UA: +Blood- large, Protein, Nitrate +, Leuks-small. ASSESSMENT/PLAN: 1. Acute cystitis with hematuria - ICD9: 595.0, ICD10: N30.01 (primary diagnosis) - Start Cipro - Increase water intake - URINE CULTURE - URINALYSIS, WITH MICROSCOPIC - CIPROFLOXACIN 500 MG TABLET 2. Flank pain - ICD9: 789.09, ICD10: R10.9 - US KIDNEY/BLADDER - Red flag symptoms go to ER. - COMP METABOLIC PANEL - CBC + DIFF 3. Vaginal bleeding - ICD9: 623.8, ICD10: N93.9 - Deferred pelvic today. - Stressed importance of further investigating bleeding if coming from vagina. - US FEMALE PELVIS TRANSABD LTD - US FEMALE PELVIS TRANSVAG Follow-up pending test results or sooner as needed Discussed treatment plan and patient voices understanding. Patient's questions answered appropriately. Medications and potential side effects were discussed and patient voices understanding. Billie Hwang APRN.CNP This note was partially generated using DigiZmart voice recognition system. Note was reviewed for accuracy. There may be minor misspellings or grammar miscues with DigiZmart voice recognition. documented in this encounterBarnesville Hospital01-23-2023 Miscellaneous Notes* Telephone Encounter - Billie Hwang APRN.CNP - 03/23/2022 3:25 PM EST The following approved medication requests have been transmitted electronically. Requested Prescriptions Pending Prescriptions Disp Refills metFORMIN (GLUCOPHAGE) 500 mg tablet 360 tablet 3 Sig: Take 2 tablets by mouth twice daily with meals. . Billie Hwang APRN.CNP * Telephone Encounter - Laure Fleming LPN - 03/23/2022 2:53 PM EST Patient has been identified by name and date of : Yes, Provider Dr. Van Date 03/23/22 Time 2:54 pm Patient phones for refill(s): Requested Prescriptions Pending Prescriptions Disp Refills metFORMIN (GLUCOPHAGE) 500 mg tablet 360 tablet 3 Sig: Take 2 tablets by mouth twice daily with meals. . Date of last office visit in primary care: 12/29/22 next apt 03/25/22 Last 2 Encounter Wt Readings: Date: Wt: 12/29/2021 131.5 kg (290 lb) 12/02/2021 139.3 kg (307 lb 1.6 oz) Previous labs/tests for medication: Diabetes: Hemoglobin A1C (%) Date Value 12/29/2021 8.6 09/26/2021 12.3 07/11/2020 9.7 03/28/2020 11.5 Thank you. Laure Fleming LPN documented in this encounterBarnesville Hospital12-23-2022 History of Present illness Narrative* Milka Bauer, [facility] - 02/20/2022 11:00 AM EST Primary Care Pharmacy Visit CC (Reason for Consult): DM Goal: A1c<8% Last Collaborating Physician/NETSUITE CONSULTANT Visit: 12/29/21 Pricila Hooker is a 76 year old female presenting for follow up visit by telephone. Patient consents to pharmacy collaborative practice agreement. At last visit with pharmacy on 01/09/22 the following changes were made: no medication changes made. INTERIM HISTORY: Notes BG readings are stable in the 120s -130s Denies any low BG readings Feeling well overall No other concerns today Has completed renewal forms and office has faxed them Current DM Medications: Metformin 500 mg - 2 tabs BID Glimepiride 4 mg BID Trulicity 3 mg once weekly GLYCEMIC CONTROL: Glucometer present at visit: No SMBG s: No SMBG log Hypoglycemia: denies ROS: Patient denies CP, SOB, MCKENZIE, blurred vision, dizziness or lightheadedness Patient denies nausea, vomiting, diarrhea, abdominal pain Patient denies symptoms of hypoglycemia (sweating, anxiety, palpitations, hunger, and tremor) Patient denies symptoms of hyperglycemia (polyuria, polydipsia, polyphagia) Patient denies potential medication adverse effects MEDICATIONS: Adherence: denies missed doses. 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 Cholecalciferol, Vitamin D3, 125 mcg (5,000 unit) cap Take 5,000 Units by mouth once daily. Lancets lancets Test one time daily, Insulin Dep? No E11.9 DM 2 alcohol swabs (ALCOHOL PADS) Test one time daily, Insulin Dep? No E11.9 DM 2 blood sugar diagnostic (BLOOD GLUCOSE TEST) test strip Test one time daily, Insulin Dep? No E11.9 DM 2 dulaglutide (TRULICITY) 3 mg/0.5 mL pen injector Inject 3 mg subcutaneously one time a week. Patient Assistance Medication. amitriptyline (ELAVIL) 50 mg tablet Take 1 tablet by mouth daily at bedtime. glimepiride (AMARYL) 4 mg tablet TAKE 1 TABLET BY MOUTH TWICE DAILY WITH MEALS nutritional supplement/fiber (KETO FORMULA ORAL) Take 800 mg by mouth. (Patient not taking: Reported on 12/29/2021) lisinopril (ZESTRIL, PRINIVIL) 5 mg tablet Take 1 tablet by mouth once daily. atorvastatin (LIPITOR) 40 mg tablet TAKE 1 TABLET BY MOUTH ONCE DAILY AT BEDTIME FOR CHOLESTEROL metFORMIN (GLUCOPHAGE) 500 mg tablet Take 2 tablets by mouth twice daily with meals. . meloxicam (MOBIC) 15 mg tablet Take 1 tablet by mouth once daily. With food. acetaminophen (TYLENOL) 325 mg tablet Take 650 mg by mouth every 6 hours as needed. Aspirin 81 mg ORAL Tab Take one(1) tablet daily. No current facility-administered medications for this visit. EXAM: Last 3 Encounter BP Readings: Date: BP: 12/29/2021 130/98 12/02/2021 170/87 10/08/2021 124/75 Wt: 290 lb (131.5 kg) BMI: 44.09 kg/(m^2) LABS: Lab Results Component Value Date HBA1C 8.6 12/29/2021 HBA1C 12.3 09/26/2021 HBA1C 9.7 07/11/2020 HBA1C 11.5 03/28/2020 HBA1C 12.1 03/09/2019 CMP: Glucose 199 12/29/2021 BUN 16 12/29/2021 Creatinine 0.77 12/29/2021 Sodium 139 12/29/2021 Potassium 4.2 12/29/2021 Chloride 101 12/29/2021 CO2 24 12/29/2021 Protein, Total 6.9 12/29/2021 Albumin 4.1 12/29/2021 Calcium 9.3 12/29/2021 Alkaline Phosphatase 69 12/29/2021 Bilirubin, Total 0.5 12/29/2021 AST 23 12/29/2021 ALT 23 12/29/2021 Creatinine clearance cannot be calculated (Unknown ideal weight.) No results found for: GFR eGFR- (no units) Date Value 03/28/2020 >60 Lab Results Component Value Date CHOL 133 09/26/2021 CHOL 141 03/28/2020 LDL 43 09/26/2021 LDL 63 03/28/2020 HDL 34 09/26/2021 HDL 37 03/28/2020 TG 279 09/26/2021 TG 204 03/28/2020 The 10-year ASCVD risk score (Last WATSON, et al., 2019) is: 39.5% Values used to calculate the score: Age: 76 years Sex: Female Is Non- : No Diabetic: Yes Tobacco smoker: No Systolic Blood Pressure: 130 mmHg Is BP treated: Yes HDL Cholesterol: 34 mg/dL Total Cholesterol: 133 mg/dL Albumin/Creat Ratio (mg/g) Date Value 09/26/2021 50 (H) PHARMACOTHERAPY ASSESSMENT/PLAN: 1. Type 2 diabetes mellitus without complication, with no history of insulin use (HCC) - ICD9: 250.00, ICD10: E11.9 A1c goal < 8%; not at goal but largely improved(last A1c 8.6%); reports SMBG at goal on current regimen; denies s/sx hypoglycemia; denies s/sx hyperglycemia; Patient is tolerating current regimen with readings close to goal, will continue current regimen. Renal function appropriate for continueduse CONTINUE Metformin 500 mg - 2 tabs BID, Glimepiride 4 mg BID, Trulicity 3 mg once weekly Follow up: Patient is not scheduled to see PCP team. Patient to follow up with pharmD on 04/10/22. Patient verbalized understanding of instructions. Milka Bauer PharmD, BCACP Primary Care Clinical Pharmacist The majority of the pharmacy visit (> 50%) was spent counseling and/or coordinating care for thepatient. [Telephonic] time was 15 minutes. documented in this encounterBarnesville Hospital12-13-2022 Miscellaneous Notes* Telephone Encounter - Evangelina Doyle Ma - 02/10/2022 8:51 AM EST Faxed. Evangelina Doyle Ma * Telephone Encounter - Vinh Van MD - 02/09/2022 5:36 PM EST Form done Vinh Van MD * Telephone Encounter - Talia Alba Ma - 02/05/2022 1:21 PM EST Type of form: Patient Assistance - [employer] [place]. Form received via mail When form is completed, Fax form to [facility] Assistance Program at [phone] Form has been forwarded to Physician Desk: Dr. Carlota Alba Ma documented in this encounterBarnesville Hospital11-11-2022 History of Present illness Narrative* Milka Bauer RPh - 01/09/2022 11:00 AM EST Primary Care Pharmacy Visit CC (Reason for Consult): DM Goal: A1c<8% Last Collaborating Physician/NETSUITE CONSULTANT Visit: 12/29/21 Pricila Hooker is a 76 year old female presenting for follow up visit by telephone. Patient consents to pharmacy collaborative practice agreement. At last visit with pharmacy on 11/07/21 the following changes were made: no medication changes made. INTERIM HISTORY: Patient is pleased with A1c results Tolerating current regimen well, feels it helps curb appetite Weight is decreasing Reports readings in 100s, with most in mid 100s Denies s/sx of hypoglycemia Current DM Medications: Metformin 500 mg - 2 tabs BID Glimepiride 4 mg BID Trulicity 3 mg once weekly GLYCEMIC CONTROL: Glucometer present at visit: No SMBG s: No SMBG log Hypoglycemia: denies ROS: Patient denies CP, SOB, MCKENZIE, blurred vision, dizziness or lightheadedness Patient denies nausea, vomiting, diarrhea, abdominal pain Patient denies symptoms of hypoglycemia (sweating, anxiety, palpitations, hunger, and tremor) Patient denies symptoms of hyperglycemia (polyuria, polydipsia, polyphagia) Patient denies potential medication adverse effects MEDICATIONS: Adherence: denies missed doses. 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 Cholecalciferol, Vitamin D3, 125 mcg (5,000 unit) cap Take 5,000 Units by mouth once daily. Lancets lancets Test one time daily, Insulin Dep? No E11.9 DM 2 alcohol swabs (ALCOHOL PADS) Test one time daily, Insulin Dep? No E11.9 DM 2 blood sugar diagnostic (BLOOD GLUCOSE TEST) test strip Test one time daily, Insulin Dep? No E11.9 DM 2 dulaglutide (TRULICITY) 3 mg/0.5 mL pen injector Inject 3 mg subcutaneously one time a week. Patient Assistance Medication. amitriptyline (ELAVIL) 50 mg tablet Take 1 tablet by mouth daily at bedtime. glimepiride (AMARYL) 4 mg tablet TAKE 1 TABLET BY MOUTH TWICE DAILY WITH MEALS nutritional supplement/fiber (KETO FORMULA ORAL) Take 800 mg by mouth. (Patient not taking: Reported on 12/29/2021) lisinopril (ZESTRIL, PRINIVIL) 5 mg tablet Take 1 tablet by mouth once daily. atorvastatin (LIPITOR) 40 mg tablet TAKE 1 TABLET BY MOUTH ONCE DAILY AT BEDTIME FOR CHOLESTEROL metFORMIN (GLUCOPHAGE) 500 mg tablet Take 2 tablets by mouth twice daily with meals. . meloxicam (MOBIC) 15 mg tablet Take 1 tablet by mouth once daily. With food. acetaminophen (TYLENOL) 325 mg tablet Take 650 mg by mouth every 6 hours as needed. Aspirin 81 mg ORAL Tab Take one(1) tablet daily. No current facility-administered medications for this visit. EXAM: Last 3 Encounter BP Readings: Date: BP: 12/29/2021 130/98 12/02/2021 170/87 10/08/2021 124/75 Wt: 131.5 kg (290 lb) BMI: 44.09 kg/(m^2) LABS: Lab Results Component Value Date HBA1C 8.6 12/29/2021 HBA1C 12.3 09/26/2021 HBA1C 9.7 07/11/2020 HBA1C 11.5 03/28/2020 HBA1C 12.1 03/09/2019 CMP: Glucose 199 12/29/2021 BUN 16 12/29/2021 Creatinine 0.77 12/29/2021 Sodium 139 12/29/2021 Potassium 4.2 12/29/2021 Chloride 101 12/29/2021 CO2 24 12/29/2021 Protein, Total 6.9 12/29/2021 Albumin 4.1 12/29/2021 Calcium 9.3 12/29/2021 Alkaline Phosphatase 69 12/29/2021 Bilirubin, Total 0.5 12/29/2021 AST 23 12/29/2021 ALT 23 12/29/2021 Creatinine clearance cannot be calculated (Unknown ideal weight.) No results found for: GFR eGFR- (no units) Date Value 03/28/2020 >60 Lab Results Component Value Date CHOL 133 09/26/2021 CHOL 141 03/28/2020 LDL 43 09/26/2021 LDL 63 03/28/2020 HDL 34 09/26/2021 HDL 37 03/28/2020 TG 279 09/26/2021 TG 204 03/28/2020 The 10-year ASCVD risk score (Last WATSON, et al., 2019) is: 39.5% Values used to calculate the score: Age: 76 years Sex: Female Is Non- : No Diabetic: Yes Tobacco smoker: No Systolic Blood Pressure: 130 mmHg Is BP treated: Yes HDL Cholesterol: 34 mg/dL Total Cholesterol: 133 mg/dL Albumin/Creat Ratio (mg/g) Date Value 09/26/2021 50 (H) PHARMACOTHERAPY ASSESSMENT/PLAN: 1. Type 2 diabetes mellitus without complication, with no history of insulin use (HCC) - ICD9: 250.00, ICD10: E11.9 A1c goal < 8%; not at goal but largely improved(last A1c 8.6%); reports SMBG at goal on current regimen; denies s/sx hypoglycemia; denies s/sx hyperglycemia; Patient is tolerating current regimen with readings close to goal, will continue current regimen. Renal function appropriate for continueduse CONTINUE Metformin 500 mg - 2 tabs BID, Glimepiride 4 mg BID, Trulicity 3 mg once weekly Will coordinate to mail patient assistance formal renewal to patient Follow up: Patient is not scheduled to see PCP team. Patient to follow up with Jason on 02/20/22. Patient verbalized understanding of instructions. Milka Bauer PharmD, BCACP Primary Care Clinical Pharmacist The majority of the pharmacy visit (> 50%) was spent counseling and/or coordinating care for thepatient. [Telephonic] time was 20 minutes. documented in this encounterBarnesville Hospital11-11-2022 Miscellaneous Notes* Telephone Encounter - Milka Bauer RPh - 01/09/2022 10:38 AM EST Attempted to call patient for today's scheduled pharmacy phone follow up. Not able to reach after several attempts. Attempted to reach patient x 3 times - all calls were picked up and immediately hung up. Unable to speak to patient or leave voicemail. Milka Bauer PharmD Primary Care Clinical Pharmacist documented in this encounterBarnesville Hospital11-04-2022 Miscellaneous Notes* Telephone Encounter - Billie Hwang APRN.CNP - 01/02/2022 2:45 PM EDT Noted. Thank you. Billie Hwang APRN.CNP * Telephone Encounter - Cydney Reagan LPN - 01/02/2022 2:28 PM EDT Patient notified of results, verbalizes understanding of instructions. Pt stated she is taking Gapapentin 100mg BID now and it is working Cydney Reagan LPN * Telephone Encounter - Billie Hwang APRN.CNP - 01/02/2022 1:25 PM EDT Can you please call the patient and let her know that I reviewed her lab results. A1c has come down from 12.3 to 8.6! I know she has an upcoming appointment with Milka. We can hold off from making any medication adjustments at this time and see where her A1c is in the next 3 months with current medication regimen. Lab orders are in to be completed 3 months from now. Please let me know if she has any questions. Thank you. Billie Hwang APRN.CNP documented in this encounterBarnesville Hospital10-31-2022 Instructions* Patient Instructions* Billie Hwang APRN.CNP - 12/29/2021 9:47 AM EDT Get labs completed. Continue to take all medication as prescribed. Start Gabpentin 100 mg three times daily. May make you tired initially. May increase up to 2 tablets 3 times daily if needed. Keep appointments with Milka. Follow up in 3 months or sooner as needed. documented in this encounterBarnesville Hospital10-31-2022 History of Present illness Narrative* Billie Hwang APRN.SOLO - 12/29/2021 9:20 AM EDT This is a 76 year old female who presents today with: Patient presents with: Follow Up: 3 month follow up HISTORY OF PRESENT ILLNESS: Pricila Hooker is a 76 year old female. Patient presents with: Follow Up: 3 month follow up Here in the office for 3 month check. DM: Reports overall feeling well. Medication side effects: No. Home sugar checks: 120's. Hypoglycemic spells: No. Watching diet: Yes. Unexpected weight loss: No. Polyuria, polydipsia: No. Vision Changes: No. Foot lesions or numbness or pain: No. Taking metformin 1000 mg twice daily, glimepiride 4 mg twice daily, Trulicity 3 mg weekly. Following with clinical pharmacyMilka. Last A1C in August was 12.3. Neuropathy: Taking Elavil 50 mg at bedtime. Medication has been helpful for symptoms. Refers that for the past week after taking the Elavil she cannot sleep. Tossing and turning. Refers that the numbness in feet bilaterally has gotten worse. Was taking gabapentin in the past, cannot remember why she stopped taking it. Lipids: Taking atorvastatin 40 mg daily. Watching diet? Denies any leg pain. Vaccines: Would like flu vaccine at next visit. Due for labs PAST MEDICAL HISTORY: PAST MEDICAL HISTORY Diagnosis Date Acute cholecystitis 01/04/07 Benign neoplasm of colon Diabetes mellitus without mention of complication Hypercholesteremia Hypertension Neuropathy PAST SURGICAL HISTORY Procedure Laterality Date ABDOMINAL SURGERY HX ARTHRP KNE CONDYLE&PLATU MEDIAL&LAT COMPARTMENTS 05/11/2011 Knee replacement, total right ARTHRP KNE CONDYLE&PLATU MEDIAL&LAT COMPARTMENTS 01/2011 left CATARACT EXTRACTION HX Left COLONOSCOPY FLX DX W/COLLJ SPEC WHEN PFRMD 12/28/2007 Colonoscopy COLONOSCOPY FLX DX W/COLLJ SPEC WHEN PFRMD 06/17/2012 Colonoscopy COLONOSCOPY FLX DX W/COLLJ SPEC WHEN PFRMD 11/05/2017 Colonoscopy EYE SURGERY HX JOINT REPLACEMENT HX LAPS SURG CHOLECYSTECTOMY W/CHOLANGIOGRAPHY 01/04/2007 ALLERGIES Adhesive Tape (Rosins) MEDICATIONS Current Outpatient Medications Medication Sig Cholecalciferol, Vitamin D3, 125 mcg (5,000 unit) cap Take 5,000 Units by mouth once daily. Lancets lancets Test one time daily, Insulin Dep? No E11.9 DM 2 alcohol swabs (ALCOHOL PADS) Test one time daily, Insulin Dep? No E11.9 DM 2 blood sugar diagnostic (BLOOD GLUCOSE TEST) test strip Test one time daily, Insulin Dep? No E11.9 DM 2 dulaglutide (TRULICITY) 3 mg/0.5 mL pen injector Inject 3 mg subcutaneously one time a week. Patient Assistance Medication. amitriptyline (ELAVIL) 50 mg tablet Take 1 tablet by mouth daily at bedtime. glimepiride (AMARYL) 4 mg tablet TAKE 1 TABLET BY MOUTH TWICE DAILY WITH MEALS nutritional supplement/fiber (KETO FORMULA ORAL) Take 800 mg by mouth. lisinopril (ZESTRIL, PRINIVIL) 5 mg tablet Take 1 tablet by mouth once daily. atorvastatin (LIPITOR) 40 mg tablet TAKE 1 TABLET BY MOUTH ONCE DAILY AT BEDTIME FOR CHOLESTEROL metFORMIN (GLUCOPHAGE) 500 mg tablet Take 2 tablets by mouth twice daily with meals. . meloxicam (MOBIC) 15 mg tablet Take 1 tablet by mouth once daily. With food. acetaminophen (TYLENOL) 325 mg tablet Take 650 mg by mouth every 6 hours as needed. Aspirin 81 mg ORAL Tab Take one(1) tablet daily. No current facility-administered medications for this visit. FAMILY HISTORY Problem Relation Age of Onset Heart Father from heart attack Heart Mother irregular heart rate Colon Cancer Mother Social History Tobacco Use Smoking status: Former Packs/day: 0.50 Years: 20.00 Pack years: 10.00 Types: Cigarettes Quit date: 11/06/1967 Years since quittin.1 Smokeless tobacco: Never Substance Use Topics Alcohol use: No Drug use: No REVIEW OF SYSTEMS GENERAL: No weight loss, malaise or fevers/chills HEENT: Negative for frequent or significant headaches, No changes in hearing or vision. NECK: Negative for lumps, goiter, pain and significant neck swelling RESPIRATORY: Negative for cough, hemoptysis, wheezing, dyspnea or shortness of breath CARDIOVASCULAR: Negative for chest pain, leg swelling, orthopnea, or palpitations GI: No nausea, vomiting, or diarrhea/constipation. No hematochezia/melena. No heartburn or reflux symptoms. : No history of dysuria, frequency or incontinence MUSCULOSKELETAL: Negative for joint pain or swelling. SKIN: Negative for lesions, rash, and itching ENDOCRINE: Negative for cold or heat intolerance, polyuria, polydipsia and goiter NEURO: No history of headaches, syncope, paralysis, seizures or tremors MOOD: Negative for depression, anxiety, or suicidal ideation. EXAM: BP 130/98 Pulse 88 Resp 16 Wt 131.5 kg (290 lb) SpO2 96% BMI 44.09 kg/m PHYSICAL EXAM: General Appearance: Well appearing, alert, in no acute distress, well-hydrated, well nourished. Skin: Skin color, texture, turgor normal, no suspicious rashes or lesions. Head: Normocephalic, no masses, lesions, tenderness or abnormalities. Eyes: Anicteric sclera. Extraocular movements are intact. Lungs: Lungs clear to auscultation. No wheezing, rhonchi, rales. Heart: RRR without murmur, gallop, or rubs. No ectopy. Extremities: No deformities, edema, skin discoloration, clubbing or cyanosis. Good capillary refill. Peripheral Pulses: Normal, Capillary refill <2secs, strong peripheral pulses, Pulses palpable. Neurologic: Gait normal. ASSESSMENT/PLAN: 1. Type 2 diabetes mellitus without complication, with no history of insulin use (HCC) - ICD9: 250.00, ICD10: E11.9 (primary diagnosis) poorly controlled - Continue current medications - Encouraged regular aerobic exercise and weight loss - Keep scheduled appointments with clinical pharmacy. - Get labs completed. - COMP METABOLIC PANEL - HGB A1C 2. 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 May increase to 200 mg in 2-3 days if needed. - Medication education and instructions provided. - GABAPENTIN 100 MG CAPSULE 3. Mixed hyperlipidemia - ICD9: 272.2, ICD10: E78.2 - suboptimal control - Continue current medication. - Encouraged following a low fat, low cholesterol diet. Follow up in 3 months or sooner as needed. Discussed treatment plan and patient voices understanding. Patient's questions answered appropriately. Medications and potential side effects were discussed and patient voices understanding. Billie Hwang APRN.DIRECTOR MARKETING This note was partially generated using [employer] voice recognition system. Note was reviewed for accuracy. There may be minor misspellings or grammar miscues with Dragon voice recognition. documented in this encounterBarnesville Hospital10-04-2022 Nurse Note* Cydney Cooper RN - 12/02/2021 8:39 AM EDT Pt received in PACU. Pt awake. Denies pain or nausea. Abd soft and non distended. Cydney Cooper RN documented in this encounterBarnesville Hospital10-04-2022 History and physical note * Wm Valverde MD - 12/02/2021 7:30 AM EDT PROCEDURAL SEDATION HISTORY AND PHYSICAL EXAM SERVICE DATE: 12/02/2021 SERVICE TIME: 7:44 AM Subjective HPI: This is a 76 year old female who presents for high risk screening colonoscopy due to family history PAST ANESTHESIA HISTORY: No history of adverse event PAST MEDICAL HISTORY Diagnosis Date Acute cholecystitis 01/04/07 Benign neoplasm of colon Diabetes mellitus without mention of complication Hypercholesteremia Hypertension Neuropathy PAST SURGICAL HISTORY Procedure Laterality Date ABDOMINAL SURGERY HX ARTHRP KNE CONDYLE&PLATU MEDIAL&LAT COMPARTMENTS 05/11/2011 Knee replacement, total right ARTHRP KNE CONDYLE&PLATU MEDIAL&LAT COMPARTMENTS 01/2011 left CATARACT EXTRACTION HX Left COLONOSCOPY FLX DX W/COLLJ SPEC WHEN PFRMD 12/28/2007 Colonoscopy COLONOSCOPY FLX DX W/COLLJ SPEC WHEN PFRMD 06/17/2012 Colonoscopy COLONOSCOPY FLX DX W/COLLJ SPEC WHEN PFRMD 11/05/2017 Colonoscopy EYE SURGERY HX JOINT REPLACEMENT HX LAPS SURG CHOLECYSTECTOMY W/CHOLANGIOGRAPHY 01/04/2007 Prior to Admission medications as of 12/02/21 0704 Medication Sig Last Dose Taking Cholecalciferol, Vitamin D3, 125 mcg (5,000 unit) cap Take 5,000 Units by mouth once daily. 12/01/2021 Yes dulaglutide (TRULICITY) 3 mg/0.5 mL pen injector Inject 3 mg subcutaneously one time a week. Patient Assistance Medication. 12/01/2021 Yes glimepiride (AMARYL) 4 mg tablet TAKE 1 TABLET BY MOUTH TWICE DAILY WITH MEALS 12/01/2021 Yes lisinopril (ZESTRIL, PRINIVIL) 5 mg tablet Take 1 tablet by mouth once daily. 12/01/2021 Yes atorvastatin (LIPITOR) 40 mg tablet TAKE 1 TABLET BY MOUTH ONCE DAILY AT BEDTIME FOR CHOLESTEROL 12/01/2021 Yes metFORMIN (GLUCOPHAGE) 500 mg tablet Take 2 tablets by mouth twice daily with meals. . 12/01/2021 Yes meloxicam (MOBIC) 15 mg tablet Take 1 tablet by mouth once daily. With food. 12/01/2021 Yes acetaminophen (TYLENOL) 325 mg tablet Take 650 mg by mouth every 6 hours as needed. 12/01/2021 Yes Aspirin 81 mg ORAL Tab Take one(1) tablet daily. 12/01/2021 Yes Lancets lancets Test one time daily, Insulin Dep? No E11.9 DM 2 alcohol swabs (ALCOHOL PADS) Test one time daily, Insulin Dep? No E11.9 DM 2 blood sugar diagnostic (BLOOD GLUCOSE TEST) test strip Test one time daily, Insulin Dep? No E11.9 DM 2 amitriptyline (ELAVIL) 50 mg tablet Take 1 tablet by mouth daily at bedtime. nutritional supplement/fiber (KETO FORMULA ORAL) Take 800 mg by mouth. Unknown ALLERGIES Allergen Reactions Adhesive Tape (Bailey* Rash Objective PHYSICAL EXAM: The remainder of the physical exam is noncontributory. AIRWAY: Airway Visualization of Uvula: Yes Mouth opening greater than 2 fingerbreadths: Yes Neck Full Range of Motion: Yes LUNGS: Lungs clear to auscultation CARDIAC: Regular rhythm,Regular rate Assessment/Plan ASA Class: ASA Class:: Patient with severe systemic disease Active Problems: * No active hospital problems. * Resolved Problems: * No resolved hospital problems. * Medication and Non-Pharmacologic VTE Prophylaxis/Anticoagulants VTE Prophylaxis: VTE prophylaxis appropriate Provisional Diagnosis/Treatment Plan: high risk screening colonoscopy. We discussed the risks and benefits of the planned endoscopy. I have informed the patient that complications can occur includingfailure to complete the endoscopy and perforation. The patient had the opportunity to ask questionsconcerning the planned endoscopy. My staff has also explained the procedure to the patient in understandable terms and has given the patient printed material concerning the procedure. The patient freely consents to surgery. SEDATION GOAL: Moderate SIGNATURE: Wm Valverde MD PATIENT NAME: Pricila Hooker DATE: December 02, 2021 TIME: 7:43 AM documented in this encounterBarnesville Hospital09-09-2022 History of Present illness Narrative* Milka Bauer, [facility] - 11/07/2021 10:00 AM EDT Primary Care Pharmacy Visit CC (Reason for Consult): DM Goal: A1c<8% Last Collaborating Physician Visit: 09/26/21 Pricila Hooker is a 75 year old female presenting for follow up visit by telephone. Patient consents to pharmacy collaborative practice agreement. At last visit with pharmacy on 10/08/21 the following changes were made: Trulicity dose was increased. INTERIM HISTORY: She has been able to start monitoring BG readings again Most fasting BG in the 150s-160s Denies any low BG Has received patient assistance medications With higher dose Trulicity, she does notice that appetite has decreased Current DM Medications: Metformin 500 mg - 2 tabs BID Glimepiride 4 mg BID Trulicity 3 mg once weekly GLYCEMIC CONTROL: Glucometer present at visit: No SMBG s: No SMBG log, Most fasting BG in the 150s-160s Hypoglycemia: None ROS: Patient denies CP, SOB, MCKENZIE, blurred vision, dizziness or lightheadedness Patient denies nausea, vomiting, diarrhea, abdominal pain Patient denies symptoms of hypoglycemia (sweating, anxiety, palpitations, hunger, and tremor) Patient denies symptoms of hyperglycemia (polyuria, polydipsia, polyphagia) Patient denies potential medication adverse effects MEDICATIONS: Adherence: denies missed doses. 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 Lancets lancets Test one time daily, Insulin Dep? No E11.9 DM 2 alcohol swabs (ALCOHOL PADS) Test one time daily, Insulin Dep? No E11.9 DM 2 blood sugar diagnostic (BLOOD GLUCOSE TEST) test strip Test one time daily, Insulin Dep? No E11.9 DM 2 dulaglutide (TRULICITY) 3 mg/0.5 mL pen injector Inject 3 mg subcutaneously one time a week. Patient Assistance Medication. amitriptyline (ELAVIL) 50 mg tablet Take 1 tablet by mouth daily at bedtime. glimepiride (AMARYL) 4 mg tablet TAKE 1 TABLET BY MOUTH TWICE DAILY WITH MEALS nutritional supplement/fiber (KETO FORMULA ORAL) Take 800 mg by mouth. lisinopril (ZESTRIL, PRINIVIL) 5 mg tablet Take 1 tablet by mouth once daily. atorvastatin (LIPITOR) 40 mg tablet TAKE 1 TABLET BY MOUTH ONCE DAILY AT BEDTIME FOR CHOLESTEROL metFORMIN (GLUCOPHAGE) 500 mg tablet Take 2 tablets by mouth twice daily with meals. . meloxicam (MOBIC) 15 mg tablet Take 1 tablet by mouth once daily. With food. acetaminophen (TYLENOL) 325 mg tablet Take 650 mg by mouth every 6 hours as needed. Aspirin 81 mg ORAL Tab Take one(1) tablet daily. No current facility-administered medications for this visit. EXAM: Last 3 Encounter BP Readings: Date: BP: 10/08/2021 124/75 09/26/2021 140/90 06/06/2021 140/90 Wt: 135.6 kg (299 lb) BMI: 45.46 kg/(m^2) LABS: Lab Results Component Value Date HBA1C 12.3 09/26/2021 HBA1C 9.7 07/11/2020 HBA1C 11.5 03/28/2020 HBA1C 12.1 03/09/2019 CMP: Glucose 268 09/26/2021 BUN 17 09/26/2021 Creatinine 0.85 09/26/2021 Sodium 136 09/26/2021 Potassium 4.9 09/26/2021 Chloride 97 09/26/2021 CO2 25 09/26/2021 Protein, Total 6.5 09/26/2021 Albumin 4.0 09/26/2021 Calcium 9.6 09/26/2021 Alkaline Phosphatase 77 09/26/2021 Bilirubin, Total 0.6 09/26/2021 AST 27 09/26/2021 ALT 31 09/26/2021 Creatinine clearance cannot be calculated (Unknown ideal weight.) eGFR- (no units) Date Value 03/28/2020 >60 EGFR: >60 mL/min/1.73m2 Vitamin B12 Date Value Ref Range Status 06/04/2011 522 221 - 700 pg/mL Final Lab Results Component Value Date CHOL 133 09/26/2021 CHOL 141 03/28/2020 LDL 43 09/26/2021 LDL 63 03/28/2020 HDL 34 09/26/2021 HDL 37 03/28/2020 TG 279 09/26/2021 TG 204 03/28/2020 The 10-year ASCVD risk score (Last WATSON, et al., 2019) is: 33.6% Values used to calculate the score: Age: 75 years Sex: Female Is Non- : No Diabetic: Yes Tobacco smoker: No Systolic Blood Pressure: 124 mmHg Is BP treated: Yes HDL Cholesterol: 34 mg/dL Total Cholesterol: 133 mg/dL Albumin/Creat Ratio (mg/g) Date Value 09/26/2021 50 (H) PHARMACOTHERAPY ASSESSMENT/PLAN: 1. Type 2 diabetes mellitus without complication, with no history of insulin use (HCC) - ICD9: 250.00, ICD10: E11.9 A1c goal < 8%; not at goal (last A1c 12.3%); SMBG improving on current regimen; denies s/sx hypoglycemia; denies s/sx hyperglycemia; Patient is tolerating current regimen with readings close to goal, will continue current regimen and reassess A1c in 1 month. Renal function appropriate for continued use CONTINUE Metformin 500 mg - 2 tabs BID, Glimepiride 4 mg BID, Trulicity 3 mg once weekly HbA1c: due 12/27/21 Follow up: Patient is scheduled to see PCP team on 12/29/21. Patient to follow up with pharmD on 01/09/22. Patient verbalized understanding of instructions. Milka Bauer PharmD, BCACP Primary Care Clinical Pharmacist The majority of the pharmacy visit (> 50%) was spent counseling and/or coordinating care for thepatient. [Telephonic] time was 20 minutes. documented in this encounterBarnesville Hospital08-10-2022 Miscellaneous Notes* Telephone Encounter - Billie Hwang APRN.CNP - 10/08/2021 5:30 PM EDT Paperwork has been signed and faxed. Thank you. Billie Hwang APRN.CNP * Telephone Encounter - Milka Bauer RPh - 10/08/2021 5:00 PM EDT Pt wishes to renew enrollement in [employer] PAP for Trulicity He has completed patient section of renewal application. Prescriber section completed. Will provide to PCP to review and sign. After PCP has reviewed, ok to fax application with attached cover sheet to [employer] PAP . Thanks, Milka Bauer PharmD, BCACP Primary Care Clinical Pharmacist [facility] documented in this encounterBarnesville Hospital08-10-2022 History of Present illness Narrative* Milka Bauer RPh - 10/08/2021 10:30 AM EDT Primary Care Pharmacy Visit REASON FOR CONSULT: DM GOALS: A1c < 8% CONSULTING PROVIDER: Billie Hwang APRN.CNP Date of Consult: 09/29/21 Pricila Hooker is a 75 year old female presenting for initial visit: This initial consult was conducted in person with the patient where the consult agreement was explained. The patient may declineor cancel the agreement at any time. After consideration, the patient consented to the pharmacy consult agreement and agreed to allow medications be collaboratively managed by a pharmacist. Last seenby Billie Hwang APRN.CNP on 09/26/21. At last [employer] appt, patient was instructed to complete lab work. When results showed elevated A1c, patient was referred to pharmacy and an order for increase Trulicity dose was faxed to [employer]. INTERIM HISTORY: Patient reports that this past week meter stopped working. She tried new battery but reports it is not working Needs new testing supplies Prior to meter malfunctioning, she was checking BG once daily in the morning Readings have been in the 170s - 180s Has been taking Trulicity 1.5 mg weekly supply, had extra doses from PAP so she was completing supply but is not currently enrolled in the program Needs to re-enroll to continue receiving supply Current DM Medications: Metformin 500 mg - 2 tabs BID Glimepiride 4 mg BID Trulicity 1.5 mg once weekly Preventative Medications: On ADA/ARB: Yes On Statin: Yes GLYCEMIC CONTROL: Glucometer present at visit: No SMBG s: No SMBG readings to review, reports readings have ranged 170s - 180s Hypoglycemia: denies ROS: Patient denies CP, SOB, MCKENZIE, blurred vision, dizziness or lightheadedness Patient denies nausea, vomiting, diarrhea, abdominal pain Patient denies symptoms of hypoglycemia (sweating, anxiety, palpitations, hunger, and tremor) Patient denies symptoms of hyperglycemia (polyuria, polydipsia, polyphagia) Patient denies potential medication adverse effects MEDICATIONS: Adherence: denies missed doses. 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 glimepiride (AMARYL) 4 mg tablet TAKE 1 TABLET BY MOUTH TWICE DAILY WITH MEALS CINNAMON nutritional supplement/fiber (KETO FORMULA ORAL) Take 800 mg by mouth. lisinopril (ZESTRIL, PRINIVIL) 5 mg tablet Take 1 tablet by mouth once daily. atorvastatin (LIPITOR) 40 mg tablet TAKE 1 TABLET BY MOUTH ONCE DAILY AT BEDTIME FOR CHOLESTEROL metFORMIN (GLUCOPHAGE) 500 mg tablet Take 2 tablets by mouth twice daily with meals. . meloxicam (MOBIC) 15 mg tablet Take 1 tablet by mouth once daily. With food. dulaglutide (TRULICITY) 1.5 mg/0.5 mL pen injector Inject 1.5 mg subcutaneously one time a week. Patient Assistance Medication. blood sugar diagnostic (BLOOD GLUCOSE TEST) test strip Test blood sugar(s) 1 times daily. Dx: OtherDM Code E11.65 Insulin: No meclizine (ANTIVERT) 25 mg tab Take 1 tablet by mouth every 6 hours as needed (dizziness). (Patientnot taking: Reported on 09/26/2021 ) albuterol HFA (VENTOLIN HFA) 90 mcg/actuation inhaler Inhale 2 Puffs as instructed every 4 hours asneeded for Wheezing/Shortness of Breath. (Patient not taking: Reported on 09/26/2021 ) acetaminophen (TYLENOL) 325 mg ORAL tablet Take 650 mg by mouth every 6 hours as needed. Aspirin 81 mg ORAL Tab Take one(1) tablet daily. No current facility-administered medications for this visit. Rx meds not listed in EPIC: none OTCs: cholecalciferol 5000 international unit(s) once daily Herbals: denies EXAM: BP 124/75 (BP Site: Right Arm, BP Position: Sitting, BP Cuff Size: Large Adult) Pulse 105 Last 3 Encounter BP Readings: Date: BP: 09/26/2021 140/90 06/06/2021 140/90 07/11/2020 138/84 Wt: 135.6 kg (299 lb) BMI: 45.46 kg/(m^2) LABS: Lab Results Component Value Date HBA1C 12.3 09/26/2021 HBA1C 9.7 07/11/2020 HBA1C 11.5 03/28/2020 HBA1C 12.1 03/09/2019 CMP: Glucose 268 09/26/2021 BUN 17 09/26/2021 Creatinine 0.85 09/26/2021 Sodium 136 09/26/2021 Potassium 4.9 09/26/2021 Chloride 97 09/26/2021 CO2 25 09/26/2021 Protein, Total 6.5 09/26/2021 Albumin 4.0 09/26/2021 Calcium 9.6 09/26/2021 Alkaline Phosphatase 77 09/26/2021 Bilirubin, Total 0.6 09/26/2021 AST 27 09/26/2021 ALT 31 09/26/2021 Creatinine clearance cannot be calculated (Unknown ideal weight.) eGFR- (no units) Date Value 03/28/2020 >60 EGFR: >60 mL/min/1.73m2 Vitamin B12 Date Value Ref Range Status 06/04/2011 522 221 - 700 pg/mL Final Lab Results Component Value Date CHOL 133 09/26/2021 CHOL 141 03/28/2020 LDL 43 09/26/2021 LDL 63 03/28/2020 HDL 34 09/26/2021 HDL 37 03/28/2020 TG 279 09/26/2021 TG 204 03/28/2020 The 10-year ASCVD risk score (Neto KLEIN Jr., et al., 2013) is: 40.7% Values used to calculate the score: Age: 75 years Sex: Female Is Non- : No Diabetic: Yes Tobacco smoker: No Systolic Blood Pressure: 140 mmHg Is BP treated: Yes HDL Cholesterol: 34 mg/dL Total Cholesterol: 133 mg/dL Albumin/Creat Ratio (mg/g) Date Value 09/26/2021 50 (H) PHARMACOTHERAPY ASSESSMENT/PLAN: 1. Type 2 diabetes mellitus without complication, with no history of insulin use ([facility]) - ICD9: 250.00, ICD10: E11.9 (primary diagnosis) A1c goal < 8%; not at goal (last A1c 12.3%); SMBG elevated on current regimen; denies s/sx hypoglycemia; denies s/sx hyperglycemia; Today, ordered new testing supplies and instructed patient to resume BG monitoring. [employer] patient assistance renewal application was completed in office to pursue higher dose Trulicity. CONTINUE Metformin 500 mg - 2 tabs BID, Glimepiride 4 mg BID INCREASE Trulicity 3 mg once weekly Complete [employer] PAP renewal application in office today HbA1c: due 12/27/21 - LANCETS - ALCOHOL SWABS - BLOOD-GLUCOSE METER - BLOOD GLUCOSE TEST STRIPS - TRULICITY 3 MG/0.5 ML SUBCUTANEOUS PEN INJECTOR 2. Essential hypertension, benign - ICD9: 401.1, ICD10: I10 BP goal <130/80, pt is at goal on current therapy. Patient adherent to current regimen with no reported potential ADEs or symptoms of hypotension. Pulse WNL, renal fxn and K+ appropriate for continued use. CONTINUE lisinopril 5 mg once daily 2. Medication management - ICD9: V58.69, ICD10: Z79.899 Reviewed name, strength, route, frequency and time of administration of medications. Medication list updated as described in above medication chart. Follow up: Patient is scheduled to see PCP team on 12/29/21. Patient to follow up with PharmD on 11/05/21. Patient verbalized understanding of instructions. Milka Bauer PharmD, [place] Primary Care Clinical Pharmacist [facility] The majority of the pharmacy visit (> 50%) was spent counseling and/or coordinating care for thepatient. [Face to Face] time was 45 minutes. documented in this encounterBarnesville Hospital08-10-2022 Instructions* Patient Instructions* Milka Bauer RPh - 10/08/2021 10:30 AM EDT INCREASE Trulicity 3 mg once weekly CONTINUE metformin and glimepiride at same dose Resume blood sugar monitoring: once daily (new testing supplies were sent to the pharmacy) If you do not hear back from the [facility] program within 14 days about approval, please [facility] to check on your approval status Start monitoring blood pressure at home and keep a log to review at next follow up documented in this encounterBarnesville Hospital08-08-2022 Miscellaneous Notes* Telephone Encounter - Milka Bauer RPh - 10/06/2021 2:05 PM EDT Called and scheduled patient for pharmacy appointment for DM management. Scheduled for 10/08. Reminded her to bring in medications, and glucometer. Milka Bauer PharmD, [place] Primary Care Clinical Pharmacist [facility] documented in this encounterBarnesville Hospital08-05-2022 Miscellaneous Notes* Telephone Encounter - Cydney Reagan LPN - 10/03/2021 2:36 PM EDT TC to pt. Left a detailed message on a secure line with updates. Cydney Reagan LPN * Telephone Encounter - Billie Hwang APRN.CNP - 10/03/2021 1:28 PM EDT Prescription for increased Trulicity, 3 mg weekly has been faxed to [facility]. Billie Hwang APRN.SOLO * Telephone Encounter - Monika Teran RN - 10/02/2021 10:44 AM EDT Patient calls and notified of results and providers instructions. Patient verbalizes understanding and is willing to have increase of Trulicity. Patient receives Trulicity through the [facility] Program. Schedulers: Patient agreeable to pharmacy clinical evaluation. Attempted to transfer to scheduling and placed on hold. Patient requested a phone call back to schedule consult to pharmacy at [phone]. Monika Teran RN * Telephone Encounter - Talia Alba Ma - 10/01/2021 2:35 PM EDT Called and left message on patients voicemail to return call to the office and ask to speak with a triage nurse. Talia Alba Ma * Telephone Encounter - Cydney Reagan LPN - 09/29/2021 12:35 PM EDT TC to pt. LM to call office, ask for triage nurse to get results. Cydney Reagan LPN * Telephone Encounter - Billie Hwang APRN.CNP - 09/29/2021 7:37 AM EDT Can you please call the patient and let her know that I reviewed her lab results. Creatinine/albumin urine was relatively unchanged. I would still encourage her to stay well-hydrated. Triglycerides are elevated which is more than likely due to sugar levels. HDL slightly low. LDL waswithin normal limits. I would encourage her to work on eating a low-carb diet with lean cuts of meat, increase vegetables, and get some form exercise. A1c has gone up from 9.7 to 12.3. We need to make some changes to her medication regimen to help improve this. If she is agreeable I would recommend increasing her Trulicity and having an evaluation with clinical pharmacy. Order has been placed. She is agreeable to increase her medication please verify pharmacy. Thank you. Billie Hwang APRN.SOLO documented in this encounterBarnesville Hospital08-02-2022 Miscellaneous Notes* Telephone Encounter - ALEXANDRO Stroud - 09/30/2021 9:31 AM EDT Telephoned the patient to schedule a new Primary Care pharmacy appt. Left a message. documented in this encounterBarnesville Hospital07-29-2022 Instructions* Patient Instructions* Billie Hwang APRN.CNP - 09/26/2021 10:40 AM EDT 1.) Get fasting labs completed today. 2.) Continue to take all medication as prescribed. 3.) Work on eating a low carb diet, try increase protein, veggies, and get some form of exercise. 4.) Recommend checking blood pressure at home. 5.) Make appointment for podiatry. 6.) Keep scheduled appointment for colonoscopy in November. 7.) Follow up in 3 months or sooner as needed. documented in this encounterBarnesville Hospital07-29-2022 History of Present illness Narrative* Billie Hwang APRN.CNP - 09/26/2021 10:20 AM EDT This is a 75 year old female who presents today with: Patient presents with: Follow Up: 3 month for BP HISTORY OF PRESENT ILLNESS: Pricila Hooker is a 75 year old female. Patient presents with: Follow Up: 3 month for BP Here in the office for 3 month check. DM: Reports overall feeling well. Medication side effects: No. Home sugar checks: 140-180's Hypoglycemic spells: No. Watching diet: Yes. Unexpected weight loss: No. Polyuria, polydipsia: No. Vision Changes: No. Foot lesions or numbness or pain: No. Taking metformin 1000 mg twice daily, glimepiride 4 mg twice daily, Trulicity 1.5 mg weekly. Will be making appointment for podiatry to have toenails trimmed. Neuropathy: Taking Elavil 50 mg at bedtime for neuropathy. Increased mg at last visit. Refers increased dose has been beneficial. HTN: Taking lisinopril 5 mg daily. Not checking blood pressure at home. Denies chest pain, palpitations, dizziness, or edema. BP elevated today, has not taken medication. Lipids: Taking atorvastatin 40 mg daily. Watching diet for cholesterol. Due for labs. PAST MEDICAL HISTORY: PAST MEDICAL HISTORY Diagnosis Date Acute cholecystitis 01/04/07 Benign neoplasm of colon Diabetes mellitus without mention of complication Hypercholesteremia Hypertension Neuropathy PAST SURGICAL HISTORY Procedure Laterality Date ARTHRP KNE CONDYLE&PLATU MEDIAL&LAT COMPARTMENTS 05/11/2011 Knee replacement, total right ARTHRP KNE CONDYLE&PLATU MEDIAL&LAT COMPARTMENTS 01/2011 left CATARACT EXTRACTION HX Left COLONOSCOPY FLX DX W/COLLJ SPEC WHEN PFRMD 12/28/2007 Colonoscopy COLONOSCOPY FLX DX W/COLLJ SPEC WHEN PFRMD 06/17/2012 Colonoscopy COLONOSCOPY FLX DX W/COLLJ SPEC WHEN PFRMD 11/05/2017 Colonoscopy LAPS SURG CHOLECYSTECTOMY W/CHOLANGIOGRAPHY 11/6/07 ALLERGIES Adhesive Tape (Rosins) MEDICATIONS Current Outpatient Medications Medication Sig glimepiride (AMARYL) 4 mg tablet TAKE 1 TABLET BY MOUTH TWICE DAILY WITH MEALS CINNAMON nutritional supplement/fiber (KETO FORMULA ORAL) Take 800 mg by mouth. lisinopril (ZESTRIL, PRINIVIL) 5 mg tablet Take 1 tablet by mouth once daily. amitriptyline (ELAVIL) 50 mg tablet Take 1 tablet by mouth daily at bedtime. atorvastatin (LIPITOR) 40 mg tablet TAKE 1 TABLET BY MOUTH ONCE DAILY AT BEDTIME FOR CHOLESTEROL metFORMIN (GLUCOPHAGE) 500 mg tablet Take 2 tablets by mouth twice daily with meals. . meloxicam (MOBIC) 15 mg tablet Take 1 tablet by mouth once daily. With food. amitriptyline (ELAVIL) 25 mg tablet Take 1 tablet by mouth daily at bedtime. dulaglutide (TRULICITY) 1.5 mg/0.5 mL pen injector Inject 1.5 mg subcutaneously one time a week. Patient Assistance Medication. blood sugar diagnostic (BLOOD GLUCOSE TEST) test strip Test blood sugar(s) 1 times daily. Dx: OtherDM Code E11.65 Insulin: No meclizine (ANTIVERT) 25 mg tab Take 1 tablet by mouth every 6 hours as needed (dizziness). albuterol HFA (VENTOLIN HFA) 90 mcg/actuation inhaler Inhale 2 Puffs as instructed every 4 hours asneeded for Wheezing/Shortness of Breath. acetaminophen (TYLENOL) 325 mg ORAL tablet Take 650 mg by mouth every 6 hours as needed. Aspirin 81 mg ORAL Tab Take one(1) tablet daily. No current facility-administered medications for this visit. FAMILY HISTORY Problem Relation Age of Onset Heart Father from heart attack Heart Mother irregular heart rate Colon Cancer Mother Social History Tobacco Use Smoking status: Former Smoker Packs/day: 0.50 Years: 20.00 Pack years: 10.00 Types: Cigarettes Quit date: 11/06/1967 Years since quittin.9 Smokeless tobacco: Never Used Substance Use Topics Alcohol use: No Drug use: No REVIEW OF SYSTEMS GENERAL: No weight loss, malaise or fevers/chills HEENT: Negative for frequent or significant headaches, No changes in hearing or vision. NECK: Negative for lumps, goiter, pain and significant neck swelling RESPIRATORY: Negative for cough, hemoptysis, wheezing, dyspnea or shortness of breath CARDIOVASCULAR: Negative for chest pain, leg swelling, orthopnea, or palpitations GI: No nausea, vomiting, or diarrhea/constipation. No hematochezia/melena. No heartburn or reflux symptoms. : No history of dysuria, frequency or incontinence MUSCULOSKELETAL: Negative for joint pain or swelling. SKIN: Negative for lesions, rash, and itching ENDOCRINE: Negative for cold or heat intolerance, polyuria, polydipsia and goiter NEURO: No history of headaches, syncope, paralysis, seizures or tremors MOOD: Negative for depression, anxiety, or suicidal ideation. EXAM: BP 140/90 Pulse 99 Resp 20 Wt 135.6 kg (299 lb) SpO2 96% BMI 45.46 kg/m PHYSICAL EXAM: General Appearance: Well appearing, alert, in no acute distress, well-hydrated, well nourished. Skin: Skin color, texture, turgor normal, no suspicious rashes or lesions. Head: Normocephalic, no masses, lesions, tenderness or abnormalities. Eyes: Anicteric sclera. Extraocular movements are intact. Neck: Supple, no adenopathy; thyroid symmetric, normal size, no bruits. Lungs: Lungs clear to auscultation. No wheezing, rhonchi, rales. Heart: RRR without murmur, gallop, or rubs. No ectopy. Extremities: No deformities, edema, skin discoloration, clubbing or cyanosis. Good capillary refill. Peripheral Pulses: Normal, Capillary refill <2secs, strong peripheral pulses, Pulses palpable. Neurologic: Gait normal. Sensation grossly intact.. ASSESSMENT/PLAN: 1. Type 2 diabetes mellitus without complication, with no history of insulin use (HCC) - ICD9: 250.00, ICD10: E11.9 (primary diagnosis) Controlled. - Continue current medications - Check HgA1C, fasting lipid panel and CMP - Encouraged regular aerobic exercise and weight loss - HGB A1C - ALBUMIN/CREAT RATIO RND UR 2. 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) - ICD9: 249.60, 357.2, ICD10: E13.40 Controlled. - Continue current medications - AMITRIPTYLINE 50 MG TABLET 3. Essential hypertension, benign - ICD9: 401.1, ICD10: I10 - suboptimal control - Continue current medication(s) - Encouraged dietary sodium restriction/DASH diet - Recommended regular aerobic exercise. - Recommend home blood pressure monitoring, to bring results in on next visit - Goal of BP <130/80 - CBC + DIFF - COMP METABOLIC PANEL 4. Mixed hyperlipidemia - ICD9: 272.2, ICD10: E78.2 - LIPID PANEL BASIC Follow up in 3 months or sooner as needed. Discussed treatment plan and patient voices understanding. Patient's questions answered appropriately. Medications and potential side effects were discussed and patient voices understanding. Billie Hwang APRN.CNP This note was partially generated using [employer] voice recognition system. Note was reviewed for accuracy. There may be minor misspellings or grammar miscues with [employer] voice recognition. documented in this encounterBarnesville Hospital06-16-2022 Miscellaneous Notes* Telephone Encounter - Karely Norman MA - 08/14/2021 9:04 AM EDT The following approved medication requests have been transmitted electronically. Signed Prescriptions Disp Refills glimepiride (AMARYL) 4 mg tablet 180 tablet 3 Sig: TAKE 1 TABLET BY MOUTH TWICE DAILY WITH MEALS TIRSO: No Authorizing Provider: VINH VAN MA * Telephone Encounter - Vinh Van MD - 08/14/2021 8:51 AM EDT OK to refill as ordered Vinh Van MD * Telephone Encounter - Laure Fleming LPN - 08/14/2021 8:48 AM EDT Patient has been identified by name and date of : Yes Pharmacy phones for refill(s): Pending Prescriptions Disp Refills GLIMEPIRIDE 4 MG TABLET 180 tablet 0 Sig: TAKE 1 TABLET BY MOUTH TWICE DAILY WITH MEALS TIRSO: Yes Date of last office visit in primary care: 06/06/21 next apt 09/11/21 Last 2 Encounter Wt Readings: Date: Wt: 06/06/2021 139.3 kg (307 lb) 07/11/2020 137.6 kg (303 lb 6.4 oz) Previous labs/tests for medication: Diabetes: Hemoglobin A1C (%) Date Value 07/11/2020 9.7 03/28/2020 11.5 Please advise. Thank you. Laure Fleming LPN documented in this encounterBarnesville Hospital04-25-2022 Miscellaneous Notes* Telephone Encounter - Nain Evans - 06/23/2021 9:12 AM EDT 08-26-2021 [facility] documented in this encounterBarnesville Hospital04-14-2022 Miscellaneous Notes* Telephone Encounter - Pamela Melara Ma - 06/12/2021 8:09 AM EDT PA approved from 03/11/21-06/10/22 Faxed approval to Emiliana Melara Ma * Telephone Encounter - Patti Colbert LPN - 06/10/2021 12:01 PM EDT Prior Authorization has been completed online at [employer] for Betamethasone, will await response. [id number] Please keep encounter open until final decision has been received and documented from insurance company. Evie Colbert LPN documented in this encounterBarnesville Hospital04-08-2022 Instructions* Patient Instructions* Billie Hwang APRN.DIRECTOR MARKETING - 06/06/2021 10:24 AM EDT 1.) Get fasting labs completed, no food 10 hours prior. May have black coffee and water. 2.) Increased Elavil to 50 mg at bedtime. This should help with neuropathy. 3.) May use steroid foam to scalp to treat psorias twice daily. If it gets worse recommend seeing dermatology if needed. 4.) Schedule appointment for colonoscopy. 5.) You were given Tdap booster. 6.) Continue to work on eating a low carb whole food diet. Increase protein and veggies. 7.) Follow up in 3 months or sooner as needed. Health Promotion: - Eat healthy go to [employer] to get started - Have a yearly physical - Mammogram yearly after age 40 - Get at least 30 minutes of physical activity daily - Get at least 7 to 8 hours of sleep each night - Reach and maintain a healthy weight - Get help to quit or don't start smoking - Limit alcohol use to one drink or less - Do not use illegal drugs or misuse prescription drugs - Wear a helmet when riding a bike and wear protective gear for sports - Wear a seatbelt in cars and not text and drive - Wear sunscreen Health Information For Patients and the Community How to Prepare for Your Colonoscopy Using Golytely, Nulytely, Trilyte or Colyte Preparations IMPORTANT - Please Read These Instructions at Least 2 Weeks Before Your Colonoscopy Tristan Instructions: ?Your bowel must be empty so that your doctor can clearly view your colon. Follow all of the instructions in this handout EXACTLY as they are written. If you do NOT follow the directions for when to start drinking the bowel preparation (see next page), your colonoscopy WILL be cancelled. ?Do NOT eat any solid food the ENTIRE day before your colonoscopy. ?Buy your bowel preparation at least 5 days before your colonoscopy. ?Do NOT mix the solution until the day before your colonoscopy. Designated Pond Supervisor on the Day of Your Exam A responsible family member or friend MUST come with you to your colonoscopy and REMAIN in the endoscopy area until you are discharged! You are NOT ALLOWED to drive, take a taxi or bus, or leave the Endoscopy Center ALONE. If you do not have a responsible crew truck driver (family member or friend) with you to take you home, your exam cannot be done with sedation and will be cancelled. Medications Some of the medicines you take may need to be stopped or adjusted before your colonoscopy. You MUST call the doctor who ordered any of the following medicines at least 2 weeks before your colonoscopy. ?Blood thinners -- such as Coumadin (warfarin), Plavix (clopidogrel), Ticlid (ticlopidine hydrochloride), Agrylin (anagrelide), Xarelto (Rivaroxaban), Pradaxa (Dabigatran), Eliquis (Apixaban), and Effient (Prasugrel). ?Insulin or diabetes pills. Please call the doctor that monitors your glucose levels. Your insulin dosage may need to be adjusted due to the diet restrictions required with this bowel preparation. (Please bring your diabetes medicines with you on the day of your procedure.) If you take aspirin, take it and ALL other medications prescribed by your doctor. On the day of your colonoscopy, take your medications with a sip of water. Revised 04/2016 1 Five (5) Days Before Your Colonoscopy ?Do NOT take medicines that stop diarrhea -- such as Imodium , Kaopectate , or Pepto Bismol . ?Do NOT take fiber supplements -- such as Metamucil , Citrucel , or Perdiem . ?Do NOT take products that contain iron -- such as multi-vitamins -- (the label lists what is in the products). ?Do NOT take vitamin E. Buy the prescription bowel preparation solution at your local pharmacy or drugstore pharmacy. Three (3) Days Before Your Colonoscopy Do NOT eat high-fiber foods -- such as popcorn, beans, seeds (flax, sunflower, quinoa), multigrain bread, nuts, salad/vegetables, or fresh and dried fruit. One (1) Day Before Your Colonoscopy Only drink clear liquids the ENTIRE DAY before your colonoscopy. Do NOT eat any solid foods. Drink at least 8 ounces of clear liquids every hour after waking up. The clear liquids you can drink include: ?water, apple, or white grape juice; broth; coffee or tea (without milk or creamer); clear carbonated beverages such as suzanne trae or lemon-white earth soda; Gatorade or other sports drinks (not red); Durga-Aid or other flavored drinks (not red). You may eat plain jello or other gelatins (not red) or popsicles (not red). Do NOT drink alcohol on the day before or the day of the procedure. 2 Revised 04/2016 When to Mix and Drink Your Bowel Prep Follow the instructions on the label. After mixing, place the solution in the refrigerator for a couple of hours before drinking. You may add the flavor packet that came with the bowel preparation. DO NOT add ice, sugar or any flavorings to the solution. Evening Before Your Colonoscopy ?Start drinking the bowel preparation at 6 PM the evening before your colonoscopy. Drink an 8-oz glass of bowel preparation every 10 minutes. You must finish drinking the solution by 9 PM the night before your scheduled procedure. ?You may continue to drink clear liquids only until midnight. Do NOT eat or drink ANYTHING after midnight the night before your procedure or your procedure may be cancelled. This is for your safety and will reduce the risk of having any food or liquid in your stomach move into your lungs (aspiration) during a procedure. If you take aspirin, take it and ALL other prescribed medicines with a sip of water on the day of your colonoscopy. Contact Information: If you are unable to keep your appointment or have any questions about the instructions, please call the facility where the procedure is being performed. Call between the hours of 8:00 AM and 5:00 PM. If you are calling after 5:00 PM, please call Nurse environmental communications specialist at [phone]. [facility] [address] [place] [id number] Index # [id number] Revised 04/2016 3 Colonoscopy Procedure Overview Please Read Prior to the Procedure What is a Colonoscopy A colonoscopy is an outpatient procedure in which the inside of the large intestine (colon and rectum) is examined. A colonoscopy is commonly used to evaluate gastrointestinal symptoms, such as rectal and intestinal bleeding, abdominal pain, or changes in bowel habits. Colonoscopies are also performed in individuals without symptoms to check for colorectal polyps or cancer. A screening colonoscopy is recommended for anyone 50 years of age and older, and for anyone with parents, siblings or children with a history of colorectal cancer or polyps. What Happens Before a Colonoscopy To have a successful colonoscopy, your bowel must be empty so that your physician can clearly view the colon. To do this, it is very important to read and follow all of the instructions given to you at least 2 weeks BEFORE your exam. If your bowel is not empty, your colonoscopy will not be successful and may have to be repeated. If you feel nauseated or vomit while taking the bowel preparation, wait 30 minutes before drinking more fluid and start with small sips of solution. Some activity (such as walking) or a few soda crackers may help decrease the nausea you are feeling. If the nausea persists, please contact nurse retail loss prevention officer at [phone]. You may experience skin irritation around the anus due to the passage of liquid stools. To prevent and treat skin irritation, you should: ?Apply Vaseline or Desitin ointment to the skin around the anus before drinking the bowel preparation medications. These products can be purchased at any drugstore. ?Wipe the skin after each bowel movement with disposable wet wipes instead of toilet paper. These are found in the toilet paper area of the store. ?Sit in a bathtub filled with warm water for 10 to 15 minutes after you finish passing a stool; after soaking, blot the skin dry with a soft cloth, apply Vaseline or Desitin ointment to the anal area, and place a cotton ball just outside your anus to absorb leaking fluid. What Happens During a Colonoscopy During a colonoscopy, an experienced physician uses a colonoscope (a long, flexible instrument about 1/2 inch in diameter) to view the lining of the colon. The colonoscope is inserted into the rectumand advanced through the large intestine. If necessary during a colonoscopy, small amounts of tissue can be removed for analysis (a biopsy) and polyps can be identified and entirely removed. In many cases, a colonoscopy allows accurate diagnosis and treatment of colorectal problems without the needfor a major operation. Revised 04/2016 5 ?You are asked to wear a hospital gown and an IV will be started. ?You are given a pain reliever and a sedative intravenously (in your vein). You will feel relaxed and somewhat drowsy. ?You will lie on your left side, with your knees drawn up towards your chest. ?A small amount of air is used to expand the colon so the physician can see the colon acevedo. ?You may feel mild cramping during the procedure. Cramping can be reduced by taking slow, deep breaths. ?The colonoscope is slowly withdrawn while the lining of your bowel is carefully examined. ?The procedure lasts from 30 minutes to 1 hour. What Happens After a Colonoscopy ?You will stay in a recovery room for observation until you are ready for discharge. ?You may feel some cramping or a sensation of having gas, but this quickly passes. ?If sedation has been given, a responsible family member or friend must drive you home. ?Avoid alcohol, driving, and operating machinery for 24 hours following the procedure. ?Unless otherwise instructed, you may immediately return to your normal diet. We recommend you waituntil the day after your procedure to resume normal activities. ?If polyps were removed or a biopsy was taken, the physician performing your colonoscopy will tell you when it is safe to resume taking your blood thinners. ?If a biopsy was taken or a polyp was removed, you may notice a little amount of rectal bleeding for 1 to 2 days after the procedure. If you have a large amount of rectal bleeding, high or persistentfevers, or severe abdominal pain within the next 2 weeks, please go to your local emergency room and call the physician who performed your exam. 6 Revised 04/2016 Copyright [id number] [facility]. All rights reserved. Revised 04/2016 documented in this encounterBarnesville Hospital04-08-2022 History of Present illness Narrative* Billie Hwang APRN.SOLO - 06/06/2021 10:20 AM EDT This is a 75 year old female who presents today with: Patient presents with: Physical HISTORY OF PRESENT ILLNESS: Pricila Hooker is a 75 year old female. Patient presents with: Physical Here in the office for yearly physical. Diet: Not watching diet, but getting ready to work on eating a low carb diet.Exercise: Walking a couple times per week. Vision: Had exam, new glasses. Dental: Has dentures, no difficulties. Sleep: 6 hours per night. Mood: Denies any increased sadness, hopelessness, anxiety, or SI/HI. DM: Reports overall feeling well. Medication side effects: No. Home sugar checks: 160-200's. Hypoglycemic spells: No. Watching diet: No. Unexpected weight loss: No. Polyuria, polydipsia: No. Vision Changes: No. Foot lesions or numbness or pain: No. Has DM neuropathy, taking Elavil 25 mg which helps for sleep but has not noticed much of differencewith her neuropathy. Taking Metformin 1000 mg twice daily, glimepiride 4 mg twice daily, Trulicity 1.5 once weekly. HTN: Taking lisinopril 5 mg. Tolerating medication well. Denies chest pain, palpitations, dizziness, or edema. Lipids: Taking out of a statin 40 mg daily. Not watching diet. Denies any leg pain. Sleep: Taking Elavil 25 mg at [facility], working well. Mammogram: Last mammogram 2017, normal. Would like to exit [facility], normal in the past. Colonoscopy: Last colonoscopy was 2017, several polyps were noted and removed. Was due for repeat colonoscopy in 2020. Vaccines: PAST MEDICAL HISTORY: PAST MEDICAL HISTORY Diagnosis Date Acute cholecystitis 01/04/07 Benign neoplasm of colon Diabetes mellitus without mention of complication Hypercholesteremia Hypertension Neuropathy PAST SURGICAL HISTORY Procedure Laterality Date CATARACT EXTRACTION HX Left COLONOSCOP W/ OR W/O [facility] SPEC 12/28/2007 Colonoscopy COLONOSCOP W/ OR W/O [facility] SPE[facility] 06/17/2012 Colonoscopy COLONOSCOP W/ OR W/O [facility] SPE[facility] 11/05/2017 Colonoscopy LAP CHOLECYSTECT/CHOLANGIOGRAPHY 01/04/07 TOTAL KNEE REPLACEMENT 05/11/2011 Knee replacement, total right TOTAL KNEE REPLACEMENT 01/2011 left ALLERGIES Adhesive Tape (Rosins) MEDICATIONS Current Outpatient Medications Medication Sig atorvastatin (LIPITOR) 40 mg tablet TAKE 1 TABLET BY MOUTH ONCE DAILY AT BEDTIME FOR CHOLESTEROL metFORMIN (GLUCOPHAGE) 500 mg tablet Take 2 tablets by mouth twice daily with meals. . lisinopril (ZESTRIL, PRINIVIL) 5 mg tablet Take 1 tablet by mouth once daily. meloxicam (MOBIC) 15 mg tablet Take 1 tablet by mouth once daily. With food. amitriptyline (ELAVIL) 25 mg tablet Take 1 tablet by mouth daily at bedtime. glimepiride (AMARYL) 4 mg tablet Take 1 tablet by mouth twice daily with meals. dulaglutide (TRULICITY) 1.5 mg/0.5 mL pen injector Inject 1.5 mg subcutaneously one time a week. Patient Assistance Medication. blood sugar diagnostic (BLOOD GLUCOSE TEST) test strip Test blood sugar(s) 1 times daily. Dx: OtherDM Code E11.65 Insulin: No meclizine (ANTIVERT) 25 mg tab Take 1 tablet by mouth every 6 hours as needed (dizziness). albuterol HFA (VENTOLIN HFA) 90 mcg/actuation inhaler Inhale 2 Puffs as instructed every 4 hours asneeded for Wheezing/Shortness of Breath. acetaminophen (TYLENOL) 325 mg ORAL tablet Take 650 mg by mouth every 6 hours as needed. Aspirin 81 mg ORAL Tab Take one(1) tablet daily. No current facility-administered medications for this visit. FAMILY HISTORY Problem Relation Age of Onset Heart Father from heart attack Heart Mother irregular heart rate Colon Cancer Mother Social History Tobacco Use Smoking status: Former Smoker Packs/day: 0.50 Years: 20.00 Pack years: 10.00 Types: Cigarettes Quit date: 11/06/1967 Years since quittin.6 Smokeless tobacco: Never Used Substance Use Topics Alcohol use: No Drug use: No REVIEW OF SYSTEMS GENERAL: No weight loss, malaise or fevers/chills HEENT: Negative for frequent or significant headaches, No changes in hearing or vision. NECK: Negative for lumps, goiter, pain and significant neck swelling RESPIRATORY: Negative for cough, hemoptysis, wheezing, dyspnea or shortness of breath CARDIOVASCULAR: Negative for chest pain, leg swelling, orthopnea, or palpitations GI: No nausea, vomiting, or diarrhea/constipation. No hematochezia/melena. No heartburn or reflux symptoms. : No history of dysuria, frequency or incontinence MUSCULOSKELETAL: Negative for joint pain or swelling. SKIN: Negative for lesions, rash, and itching ENDOCRINE: Negative for cold or heat intolerance, polyuria, polydipsia and goiter NEURO: No history of headaches, syncope, paralysis, seizures or tremors MOOD: Negative for depression, anxiety, or suicidal ideation. EXAM: BP 140/90 Pulse 99 Resp 20 Wt (!) 139.3 kg (307 lb) SpO2 90% BMI 46.68 kg/m PHYSICAL EXAM: General Appearance: Well appearing, alert, in no acute distress, well-hydrated, well nourished. Skin: Skin color, texture, turgor normal, no suspicious rashes or lesions. Head: Normocephalic, no masses, lesions, tenderness or abnormalities. Eyes: Anicteric sclera. Pupils are equally round and reactive to light. Extraocular movements are intact. Ears: External ears normal, canals clear. TM's pearly marshall. Neck: Supple, no adenopathy; thyroid symmetric, normal size, no bruits. Lungs: Lungs clear to auscultation. No wheezing, rhonchi, rales. Heart: RRR without murmur, gallop, or rubs. No ectopy. Abdomen: Normal abdominal exam, Abdomen soft, non-tender. Bowel sounds normal. No masses, organomegaly, Negative CVA tenderness. Extremities: No deformities, edema, skin discoloration, clubbing or cyanosis. Good capillary refill. Musculoskeletal: No joint swelling, deformity, or tenderness. Peripheral Pulses: Normal, Capillary refill <2secs, strong peripheral pulses, Pulses palpable. Neurologic: Gait normal. Reflexes normal and symmetric. Sensation grossly intact. Mood: Pleasant, good eye contact, engaged. ASSESSMENT/PLAN: 1. Wellness examination - ICD9: V70.0, ICD10: Z00.00 (primary diagnosis) - Counseled on healthy diet and regular exercise - Calcium intake with supplements or by diet of 1000 mg/day for under 50, 1200- 1500 mg/day for 50+ - Discussed need and benefit for weight loss. BMI 46.68 kg/(m^2) - Depression screening tool completed and reviewed with patient. Based on score and interview, patient is not at risk for depression and recommended no further intervention at this time. - Patient was counseled [id number] by myself (the billing provider) for the following immunizations and vaccine components, including side effects: DTaP. Patient consents for immunization and understands risks and benefits. A VIS sheet on each immunization was given to the patient. - Denied wanting mammogram completed at this time. - Follow up for annual exam in one year 2. Essential hypertension, benign - ICD9: 401.1, ICD10: I10 - suboptimal control - Continue current medication(s) - Encouraged dietary sodium restriction/DASH diet - Recommended regular aerobic exercise. - Discussed need and benefit for weight loss. - Goal of BP <130/80 - LISINOPRIL 5 MG TABLET 3. Type 2 diabetes mellitus without complication, with no history of insulin use (HCC) - ICD9: 250.00, ICD10: E11.9 The patient is new to me. - Continue current medications. - Work on eating a low carb diet and get some form of activity. - Get labs completed. 4. 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 - Increase amitriptyline to 50 mg at Bed. - AMITRIPTYLINE 50 MG TABLET 5. Mixed hyperlipidemia - ICD9: 272.2, ICD10: E78.2 - to be determined upon return of lab results - Continue current medication. 6. Insomnia, unspecified type - ICD9: 780.52, ICD10: G47.00 - Same plan as #4. 7. Psoriasis of scalp - ICD9: 696.1, ICD10: L40.9 - BETAMETHASONE VALERATE 0.12 % TOPICAL FOAM 8. Special screening for malignant neoplasms, colon - ICD9: V76.51, ICD10: Z12.11 - COLONOSCOPY SCREENING - PEG 3350 240 GRAM-ELECTROLYTES 22.72 GRAM-6.72 G-5.84 G POWDR FOR SOLN 9. Encounter for immunization - ICD9: V03.89, ICD10: Z23 - TDAP VACCINE AGE 7+ IM Up in 3 months or sooner as needed. Discussed treatment plan and patient voices understanding. Patient's questions answered appropriately. Medications and potential side effects were discussed and patient voices understanding. Billie Hwang APRN.DIRECTOR MARKETING The patient indicates understanding of these issues and agrees with the plan. TR OPEN ACCESS QUESTIONNAIRE 1. Are you currently having any new or unusual stomach/gastrointestinal issues at this time such asconstipation, diarrhea, abdominal pain, rectal bleeding etc?No 2. Do you have any difficulty swallowing? No 3. Do you have any implanted devices such as a defibrillator, pacemaker, cardiac stents or deep brain stimulator? No 4. Do you take any Blood thinners such as Coumadin, Plavix, Xarelto, Eliquis, Brilinta or any otherblood thinner? No 5. Do you have any new or past cardiac (heart) or pulmonary (lung) issues? No 6. Do you currently use any oxygen? No 7. Have you been hospitalized in the past 6 weeks? No 8. Have you had difficulty with anesthesia previously re: Difficult intubation? No Other difficulty or allergic reaction to anesthesia other than post op N/V? No 9. Are you on dialysis? No 10. Do you have any bleeding disorders such as hemophilia or Factor 5? No 11. Are you an Insulin Dependent Diabetic? No IF ANY OF THE TOP ELEVEN QUESTIONS ARE ANSWERED YES PLEASE SCHEDULE THE PATIENT FOR A CONSULT. N/A 12. Is the patient's BMI 40 or greater? Yes / :Body mass index is 46.68 kg/m .. 13. Do you take any narcotics or anti-Anxiety medications? No 14. Do you use any illegal or recreational drugs including marijuana? No 15. Any alcohol use: No. 16. Have you been diagnosed with chronic liver disease such as hepatitis or cirrhosis? No 17. Do you have a seizure disorder? No 18. Do you have ulcerative colitis or Crohn's disease? No 19. Are you or could you be ? No 20. Any other important health information we should be made aware of prior to your colonoscopy? No To be completed by LIP: Did patient have MAC anesthesia with a previous endoscopy procedure? No Patient appropriate for Open Access Colonoscopy: Yes: appropriate for Open Access Procedure Checklist: Prior to closing the encounter: Complete questionnaire: Yes Confirm Prep order has been Ordered/Pended: Yes. ? Patient's procedure could be delayed if not given the script for the prep. Please ensure the prepis escripted to pharmacy or printed. Instructions for the prep will print upon filing or pending this smartset. Please send all open access questionnaires to [facility] Sched Pool [facility][id number] documented in [facility] History of Present illness Narrative* Cydney Reagan LPN - 06/02/2021 1:10 PM EDT Pt has appt on 06/04/21 at 10:40 am with Archana. Cydney Reagan LPN * Supa Matute APRN.CNP - 06/02/2021 11:04 AM EDT STAMP Please reach out to patient for overdue appointment for chronic disease management with myself, , or Billie Hwang. Labs are ordered. If he/she is no longer following with Dr. Van, please remove name from PCP field. Supa Matute APRN.CNP documented in this encounterBarn[facility]03[facility]29-[facility] History of Present illness Narrative* Faustina PhamAlum.niMayra Lopez - 05/27/2020 11:10 AM EDT Radiology Service Progress Note PATIENT NAME: Pricila Hooker DATE OF SERVICE: May 27, 2020 TIME: 11:02 AM PATIENT IDENTITY VERIFICATION COMPLETED USING TWO (2) IDENTIFIERS: Name and Date of confirmedby patient verbally. FALL SCREENING: Has the patient had 2 falls in the last year or 1 fall with injury or currently using an Ambulatory Assistive Device (Walker, Cane, Wheelchair, Crutches, etc.)? No PATIENT GENDER DATA: Female. status: : No status: NO. PATIENT RELEVANT IMPLANT DATA REVIEWED: Not Applicable RADIOLOGY DEPARTMENT: General X-ray: Exam(s) Completed: Upper Extremity X- Ray(s): Shoulder, AP / TRUE AP / AXILLARY right and Forearm, right : PERIPHERAL IV DATA: Not applicable SIGNED BY: Mayra Medeiros May 27, 2020 11:02 AM documented in this encounterBarnesville [facility]10-29-[facility] History of Past illness Narrative* Problem Noted Date Resolved Date 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 Internal hemorrhoids without mention of complica tion 12/28/2007 08/15/2010 External hemorrhoids without mention of complica tion 12/28/2007 08/15/2010 Diabetes mellitus type 2, controlled, without co mplications 07/13/2006 07/09/2015 documented as of this encounter (statuses as of 06/02/2021) [facility] Narrative* Problem Noted Date Resolved Date 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 Internal hemorrhoids without mention of complica tion 12/28/2007 08/15/2010 External hemorrhoids without mention of complica tion 12/28/2007 08/15/2010 Diabetes mellitus type 2, controlled, without co mplications 07/13/2006 07/09/2015 documented as of this encounter (statuses as of 06/06/2021) [facility] Narrative* Problem Noted Date Resolved Date 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 Internal hemorrhoids without mention of complica tion 12/28/2007 08/15/2010 External hemorrhoids without mention of complica tion 12/28/2007 08/15/2010 Diabetes mellitus type 2, controlled, without co mplications 07/13/2006 07/09/2015 documented as of this encounter (statuses as of 06/12/2021) [facility] Narrative* Problem Noted Date Resolved Date 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 Internal hemorrhoids without mention of complica tion 12/28/2007 08/15/2010 External hemorrhoids without mention of complica tion 12/28/2007 08/15/2010 Diabetes mellitus type 2, controlled, without co mplications 07/13/2006 07/09/2015 documented as of this encounter (statuses as of 07/14/2021) [facility] Narrative* Problem Noted Date Resolved Date 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 Internal hemorrhoids without mention of complica tion 12/28/2007 08/15/2010 External hemorrhoids without mention of complica tion 12/28/2007 08/15/2010 Diabetes mellitus type 2, controlled, without co mplications 07/13/2006 07/09/2015 documented as of this encounter (statuses as of 08/14/2021) [facility] Narrative* Problem Noted Date Resolved Date 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 Internal hemorrhoids without mention of complica tion 12/28/2007 08/15/2010 External hemorrhoids without mention of complica tion 12/28/2007 08/15/2010 Diabetes mellitus type 2, controlled, without co mplications 07/13/2006 07/09/2015 documented as of this encounter (statuses as of 09/26/2021) [facility] Narrative* Problem Noted Date Resolved Date 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 Internal hemorrhoids without mention of complica tion 12/28/2007 08/15/2010 External hemorrhoids without mention of complica tion 12/28/2007 08/15/2010 Diabetes mellitus type 2, controlled, without co mplications 07/13/2006 07/09/2015 documented as of this encounter (statuses as of 09/30/2021) [facility] Narrative* Problem Noted Date Resolved Date 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 Internal hemorrhoids without mention of complica tion 12/28/2007 08/15/2010 External hemorrhoids without mention of complica tion 12/28/2007 08/15/2010 Diabetes mellitus type 2, controlled, without co mplications 07/13/2006 07/09/2015 documented as of this encounter (statuses as of 10/06/2021) [facility] Narrative* Problem Noted Date Resolved Date 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 Internal hemorrhoids without mention of complica tion 12/28/2007 08/15/2010 External hemorrhoids without mention of complica tion 12/28/2007 08/15/2010 Diabetes mellitus type 2, controlled, without co mplications 07/13/2006 07/09/2015 documented as of this encounter (statuses as of 10/06/2021) [facility]arrative* Problem Noted Date Resolved Date 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 Internal hemorrhoids without mention of complica tion 12/28/2007 08/15/2010 External hemorrhoids without mention of complica tion 12/28/2007 08/15/2010 Diabetes mellitus type 2, controlled, without co mplications 07/13/2006 07/09/2015 documented as of this encounter (statuses as of 10/08/2021) [facility]arrative* Problem Noted Date Resolved Date 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 Internal hemorrhoids without mention of complica tion 12/28/2007 08/15/2010 External hemorrhoids without mention of complica tion 12/28/2007 08/15/2010 Diabetes mellitus type 2, controlled, without co mplications 07/13/2006 07/09/2015 documented as of this encounter (statuses as of 10/08/2021) [facility] Narrative* Problem Noted Date Resolved Date 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 Internal hemorrhoids without mention of complica tion 12/28/2007 08/15/2010 External hemorrhoids without mention of complica tion 12/28/2007 08/15/2010 Diabetes mellitus type 2, controlled, without co mplications 07/13/2006 07/09/2015 documented as of this encounter (statuses as of 11/07/2021) [facility]arrative* Problem Noted Date Resolved Date 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 Internal hemorrhoids without mention of complica tion 12/28/2007 08/15/2010 External hemorrhoids without mention of complica tion 12/28/2007 08/15/2010 Diabetes mellitus type 2, controlled, without co mplications 07/13/2006 07/09/2015 documented as of this encounter (statuses as of 12/03/2021) [facility] Narrative* Problem Noted Date Resolved Date 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 Internal hemorrhoids without mention of complica tion 12/28/2007 08/15/2010 External hemorrhoids without mention of complica tion 12/28/2007 08/15/2010 Diabetes mellitus type 2, controlled, without co mplications 07/13/2006 07/09/2015 documented as of this encounter (statuses as of 12/29/2021) [facility]arrative* Problem Noted Date Resolved Date 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 Internal hemorrhoids without mention of complica tion 12/28/2007 08/15/2010 External hemorrhoids without mention of complica tion 12/28/2007 08/15/2010 Diabetes mellitus type 2, controlled, without co mplications 07/13/2006 07/09/2015 documented as of this encounter (statuses as of 01/02/2022) [facility]arrative* Problem Noted Date Resolved Date 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 Internal hemorrhoids without mention of complica tion 12/28/2007 08/15/2010 External hemorrhoids without mention of complica tion 12/28/2007 08/15/2010 Diabetes mellitus type 2, controlled, without co mplications 07/13/2006 07/09/2015 documented as of this encounter (statuses as of 01/09/2022) [facility] Narrative* Problem Noted Date Resolved Date 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 Internal hemorrhoids without mention of complica tion 12/28/2007 08/15/2010 External hemorrhoids without mention of complica tion 12/28/2007 08/15/2010 Diabetes mellitus type 2, controlled, without co mplications 07/13/2006 07/09/2015 documented as of this encounter (statuses as of 01/09/2022) [facility] Narrative* Problem Noted Date Resolved Date 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 Internal hemorrhoids without mention of complica tion 12/28/2007 08/15/2010 External hemorrhoids without mention of complica tion 12/28/2007 08/15/2010 Diabetes mellitus type 2, controlled, without co mplications 07/13/2006 07/09/2015 documented as of this encounter (statuses as of 02/10/2022) [facility]arrative* Problem Noted Date Resolved Date 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 Internal hemorrhoids without mention of complica tion 12/28/2007 08/15/2010 External hemorrhoids without mention of complica tion 12/28/2007 08/15/2010 Diabetes mellitus type 2, controlled, without co mplications 07/13/2006 07/09/2015 documented as of this encounter (statuses as of 02/22/2022) [facility]arrative* Problem Noted Date Resolved Date 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 Internal hemorrhoids without mention of complica tion 12/28/2007 08/15/2010 External hemorrhoids without mention of complica tion 12/28/2007 08/15/2010 Diabetes mellitus type 2, controlled, without co mplications 07/13/2006 07/09/2015 documented as of this encounter (statuses as of 03/24/2022) [facility]arrative* Problem Noted Date Resolved Date 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 Internal hemorrhoids without mention of complica tion 12/28/2007 08/15/2010 External hemorrhoids without mention of complica tion 12/28/2007 08/15/2010 Diabetes mellitus type 2, controlled, without co mplications 07/13/2006 07/09/2015 documented as of this encounter (statuses as of 04/09/2022) [facility]ative* Problem Noted Date Resolved Date 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 Internal hemorrhoids without mention of complica tion 12/28/2007 08/15/2010 External hemorrhoids without mention of complica tion 12/28/2007 08/15/2010 Diabetes mellitus type 2, controlled, without co mplications 07/13/2006 07/09/2015 documented as of this encounter (statuses as of 04/26/2022) [facility]ative* Problem Noted Date Resolved Date 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 Internal hemorrhoids without mention of complica tion 12/28/2007 08/15/2010 External hemorrhoids without mention of complica tion 12/28/2007 08/15/2010 Diabetes mellitus type 2, controlled, without co mplications 07/13/2006 07/09/2015 documented as of this encounter (statuses as of 05/04/2022) [facility]ative* Problem Noted Date Resolved Date 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 Internal hemorrhoids without mention of complica tion 12/28/2007 08/15/2010 External hemorrhoids without mention of complica tion 12/28/2007 08/15/2010 Diabetes mellitus type 2, controlled, without co mplications 07/13/2006 07/09/2015 documented as of this encounter (statuses as of 06/03/2022) [facility]* Problem Noted Date Resolved Date 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 Internal hemorrhoids without mention of complica tion 12/28/2007 08/15/2010 External hemorrhoids without mention of complica tion 12/28/2007 08/15/2010 Diabetes mellitus type 2, controlled, without co mplications 07/13/2006 07/09/2015 documented as of this encounter (statuses as of 06/03/2022) [facility]* Problem Noted Date Resolved Date 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 Internal hemorrhoids without mention of complica tion 12/28/2007 08/15/2010 External hemorrhoids without mention of complica tion 12/28/2007 08/15/2010 Diabetes mellitus type 2, controlled, without co mplications 07/13/2006 07/09/2015 documented as of this encounter (statuses as of 06/05/2022) [facility]arrative* Problem Noted Date Resolved Date 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 Internal hemorrhoids without mention of complica tion 12/28/2007 08/15/2010 External hemorrhoids without mention of complica tion 12/28/2007 08/15/2010 Diabetes mellitus type 2, controlled, without co mplications 07/13/2006 07/09/2015 documented as of this encounter (statuses as of 06/08/2022) [facility]arrative* Problem Noted Date Resolved Date 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 Internal hemorrhoids without mention of complica tion 12/28/2007 08/15/2010 External hemorrhoids without mention of complica tion 12/28/2007 08/15/2010 Diabetes mellitus type 2, controlled, without co mplications 07/13/2006 07/09/2015 documented as of this encounter (statuses as of 06/12/2022) [facility]* Problem Noted Date Resolved Date 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 Internal hemorrhoids without mention of complica tion 12/28/2007 08/15/2010 External hemorrhoids without mention of complica tion 12/28/2007 08/15/2010 Diabetes mellitus type 2, controlled, without co mplications 07/13/2006 07/09/2015 documented as of this encounter (statuses as of 06/13/2022) [place] [id number] History of Past illness Narrative* Problem Noted Date Resolved Date 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 Internal hemorrhoids without mention of complica tion 12/28/2007 08/15/2010 External hemorrhoids without mention of complica tion 12/28/2007 08/15/2010 Diabetes mellitus type 2, controlled, without co mplications 07/13/2006 07/09/2015 documented as of this encounter (statuses as of 06/18/2022) [facility]* Problem Noted Date Resolved Date 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 Internal hemorrhoids without mention of complica tion 12/28/2007 08/15/2010 External hemorrhoids without mention of complica tion 12/28/2007 08/15/2010 Diabetes mellitus type 2, controlled, without co mplications 07/13/2006 07/09/2015 documented as of this encounter (statuses as of 06/25/2022) [facility]* Problem Noted Date Resolved Date 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 Internal hemorrhoids without mention of complica tion 12/28/2007 08/15/2010 External hemorrhoids without mention of complica tion 12/28/2007 08/15/2010 Diabetes mellitus type 2, controlled, without co mplications 07/13/2006 07/09/2015 documented as of this encounter (statuses as of 06/30/2022) [facility]arrative* Problem Noted Date Resolved Date 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 Internal hemorrhoids without mention of complica tion 12/28/2007 08/15/2010 External hemorrhoids without mention of complica tion 12/28/2007 08/15/2010 Diabetes mellitus type 2, controlled, without co mplications 07/13/2006 07/09/2015 documented as of this encounter (statuses as of 07/01/2022) [facility]* Problem Noted Date Resolved Date 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 Internal hemorrhoids without mention of complica tion 12/28/2007 08/15/2010 External hemorrhoids without mention of complica tion 12/28/2007 08/15/2010 Diabetes mellitus type 2, controlled, without co mplications 07/13/2006 07/09/2015 documented as of this encounter (statuses as of 07/10/2022) [facility]ative* Problem Noted Date Resolved Date 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 Internal hemorrhoids without mention of complica tion 12/28/2007 08/15/2010 External hemorrhoids without mention of complica tion 12/28/2007 08/15/2010 Diabetes mellitus type 2, controlled, without co mplications 07/13/2006 07/09/2015 documented as of this encounter (statuses as of 07/28/2022) [facility]ative* Problem Noted Date Resolved Date 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 Internal hemorrhoids without mention of complica tion 12/28/2007 08/15/2010 External hemorrhoids without mention of complica tion 12/28/2007 08/15/2010 Diabetes mellitus type 2, controlled, without co mplications 07/13/2006 07/09/2015 documented as of this encounter (statuses as of 07/31/2022) [facility]arrative* Problem Noted Date Resolved Date 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 Internal hemorrhoids without mention of complica tion 12/28/2007 08/15/2010 External hemorrhoids without mention of complica tion 12/28/2007 08/15/2010 Diabetes mellitus type 2, controlled, without co mplications 07/13/2006 07/09/2015 documented as of this encounter (statuses as of 08/05/2022) [facility] Narrative* Problem Noted Date Resolved Date 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 Internal hemorrhoids without mention of complica tion 12/28/2007 08/15/2010 External hemorrhoids without mention of complica tion 12/28/2007 08/15/2010 Diabetes mellitus type 2, controlled, without co mplications 07/13/2006 07/09/2015 documented as of this encounter (statuses as of 08/13/2022) [facility]* Problem Noted Date Resolved Date 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 Internal hemorrhoids without mention of complica tion 12/28/2007 08/15/2010 External hemorrhoids without mention of complica tion 12/28/2007 08/15/2010 Diabetes mellitus type 2, controlled, without co mplications 07/13/2006 07/09/2015 documented as of this encounter (statuses as of 08/14/2022) [facility] Narrative* Problem Noted Date Resolved Date 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 Internal hemorrhoids without mention of complica tion 12/28/2007 08/15/2010 External hemorrhoids without mention of complica tion 12/28/2007 08/15/2010 Diabetes mellitus type 2, controlled, without co mplications 07/13/2006 07/09/2015 documented as of this encounter (statuses as of 08/14/2022) [facility] Narrative* Problem Noted Date Resolved Date 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 Internal hemorrhoids without mention of complica tion 12/28/2007 08/15/2010 External hemorrhoids without mention of complica tion 12/28/2007 08/15/2010 Diabetes mellitus type 2, controlled, without co mplications 07/13/2006 07/09/2015 documented as of this encounter (statuses as of 08/16/2022) [facility]* Problem Noted Date Resolved Date 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 Internal hemorrhoids without mention of complica tion 12/28/2007 08/15/2010 External hemorrhoids without mention of complica tion 12/28/2007 08/15/2010 Diabetes mellitus type 2, controlled, without co mplications 07/13/2006 07/09/2015 documented as of this encounter (statuses as of 08/18/2022) [facility]* Problem Noted Date Resolved Date 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 Internal hemorrhoids without mention of complica tion 12/28/2007 08/15/2010 External hemorrhoids without mention of complica tion 12/28/2007 08/15/2010 Diabetes mellitus type 2, controlled, without co mplications 07/13/2006 07/09/2015 documented as of this encounter (statuses as of 08/20/2022) [facility]* Problem Noted Date Resolved Date 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 Internal hemorrhoids without mention of complica tion 12/28/2007 08/15/2010 External hemorrhoids without mention of complica tion 12/28/2007 08/15/2010 Diabetes mellitus type 2, controlled, without co mplications 07/13/2006 07/09/2015 documented as of this encounter (statuses as of 08/20/2022) [facility]* Problem Noted Date Resolved Date 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 Internal hemorrhoids without mention of complica tion 12/28/2007 08/15/2010 External hemorrhoids without mention of complica tion 12/28/2007 08/15/2010 Diabetes mellitus type 2, controlled, without co mplications 07/13/2006 07/09/2015 documented as of this encounter (statuses as of 08/22/2022) [facility]ative* Problem Noted Date Resolved Date 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 Internal hemorrhoids without mention of complica tion 12/28/2007 08/15/2010 External hemorrhoids without mention of complica tion 12/28/2007 08/15/2010 Diabetes mellitus type 2, controlled, without co mplications 07/13/2006 07/09/2015 documented as of this encounter (statuses as of 08/26/2022) [facility]* Problem Noted Date Resolved Date 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 Internal hemorrhoids without mention of complica tion 12/28/2007 08/15/2010 External hemorrhoids without mention of complica tion 12/28/2007 08/15/2010 Diabetes mellitus type 2, controlled, without co mplications 07/13/2006 07/09/2015 documented as of this encounter (statuses as of 08/26/2022) [facility]* Problem Noted Date Resolved Date 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 Internal hemorrhoids without mention of complica tion 12/28/2007 08/15/2010 External hemorrhoids without mention of complica tion 12/28/2007 08/15/2010 Diabetes mellitus type 2, controlled, without co mplications 07/13/2006 07/09/2015 documented as of this encounter (statuses as of 08/28/2022) [facility]* Problem Noted Date Resolved Date 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 Internal hemorrhoids without mention of complica tion 12/28/2007 08/15/2010 External hemorrhoids without mention of complica tion 12/28/2007 08/15/2010 Diabetes mellitus type 2, controlled, without co mplications 07/13/2006 07/09/2015 documented as of this encounter (statuses as of 09/04/2022) [facility]* Problem Noted Date Resolved Date 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 Internal hemorrhoids without mention of complica tion 12/28/2007 08/15/2010 External hemorrhoids without mention of complica tion 12/28/2007 08/15/2010 Diabetes mellitus type 2, controlled, without co mplications 07/13/2006 07/09/2015 documented as of this encounter (statuses as of 09/04/2022) [facility]* Problem Noted Date Diagnosed Date Resolved Date 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 Internal hemorrhoids without mention of complication 12/28/2007 08/15/2010 External hemorrhoids without mention of complication 12/28/2007 08/15/2010 Diabetes mellitus type 2, co ntrolled, without complications 07/13/2006 07/09/2015 documented as of this encounter (statuses as of 09/10/2022) [facility] History of Past illness Narrative* Problem Noted Date Diagnosed Date Resolved Date 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 Internal hemorrhoids without mention of complication 12/28/2007 08/15/2010 External hemorrhoids without mention of complication 12/28/2007 08/15/2010 Diabetes mellitus type 2, co ntrolled, without complications 07/13/2006 07/09/2015 documented as of this encounter (statuses as of 09/24/2022) [facility] History of Past illness Narrative* Problem Noted Date Diagnosed Date Resolved Date 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 Internal hemorrhoids without mention of complication 12/28/2007 08/15/2010 External hemorrhoids without mention of complication 12/28/2007 08/15/2010 Diabetes mellitus type 2, co ntrolled, without complications 07/13/2006 07/09/2015 documented as of this encounter (statuses as of 09/24/2022) [facility] History of Past illness Narrative* Problem Noted Date Diagnosed Date Resolved Date 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 Internal hemorrhoids without mention of complication 12/28/2007 08/15/2010 External hemorrhoids without mention of complication 12/28/2007 08/15/2010 Diabetes mellitus type 2, co ntrolled, without complications 07/13/2006 07/09/2015 documented as of this encounter (statuses as of 09/24/2022) [facility] History of Past illness Narrative* Problem Noted Date Diagnosed Date Resolved Date 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 Internal hemorrhoids without mention of complication 12/28/2007 08/15/2010 External hemorrhoids without mention of complication 12/28/2007 08/15/2010 Diabetes mellitus type 2, co ntrolled, without complications 07/13/2006 07/09/2015 documented as of this encounter (statuses as of 10/01/2022) [facility] History of Past illness Narrative* Problem Noted Date Diagnosed Date Resolved Date 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 Internal hemorrhoids without mention of complication 12/28/2007 08/15/2010 External hemorrhoids without mention of complication 12/28/2007 08/15/2010 Diabetes mellitus type 2, co ntrolled, without complications 07/13/2006 07/09/2015 documented as of this encounter (statuses as of 10/10/2022) [facility] History of Past illness Narrative* Problem Noted Date Diagnosed Date Resolved Date 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 Internal hemorrhoids without mention of complication 12/28/2007 08/15/2010 External hemorrhoids without mention of complication 12/28/2007 08/15/2010 Diabetes mellitus type 2, co ntrolled, without complications 07/13/2006 07/09/2015 documented as of this encounter (statuses as of 10/14/2022) [facility] History of Past illness Narrative* Problem Noted Date Diagnosed Date Resolved Date 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 Internal hemorrhoids without mention of complication 12/28/2007 08/15/2010 External hemorrhoids without mention of complication 12/28/2007 08/15/2010 Diabetes mellitus type 2, co ntrolled, without complications 07/13/2006 07/09/2015 documented as of this encounter (statuses as of 10/14/2022) [facility] History of Past illness Narrative* Problem Noted Date Diagnosed Date Resolved Date 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 Internal hemorrhoids without mention of complication 12/28/2007 08/15/2010 External hemorrhoids without mention of complication 12/28/2007 08/15/2010 Diabetes mellitus type 2, co ntrolled, without complications 07/13/2006 07/09/2015 documented as of this encounter (statuses as of 10/14/2022) [facility] History of Past illness Narrative* Problem Noted Date Diagnosed Date Resolved Date 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 Internal hemorrhoids without mention of complication 12/28/2007 08/15/2010 External hemorrhoids without mention of complication 12/28/2007 08/15/2010 Diabetes mellitus type 2, co ntrolled, without complications 07/13/2006 07/09/2015 documented as of this encounter (statuses as of 10/15/2022) [facility] History of Past illness Narrative* Problem Noted Date Diagnosed Date Resolved Date 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 Internal hemorrhoids without mention of complication 12/28/2007 08/15/2010 External hemorrhoids without mention of complication 12/28/2007 08/15/2010 Diabetes mellitus type 2, co ntrolled, without complications 07/13/2006 07/09/2015 documented as of this encounter (statuses as of 10/23/2022) [facility] History of Past illness Narrative* Problem Noted Date Diagnosed Date Resolved Date 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 Internal hemorrhoids without mention of complication 12/28/2007 08/15/2010 External hemorrhoids without mention of complication 12/28/2007 08/15/2010 Diabetes mellitus type 2, co ntrolled, without complications 07/13/2006 07/09/2015 documented as of this encounter (statuses as of 11/03/2022) [facility] History of Past illness Narrative* Problem Noted Date Diagnosed Date Resolved Date 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 Internal hemorrhoids without mention of complication 12/28/2007 08/15/2010 External hemorrhoids without mention of complication 12/28/2007 08/15/2010 Diabetes mellitus type 2, co ntrolled, without complications 07/13/2006 07/09/2015 documented as of this encounter (statuses as of 11/03/2022) [facility] History of Past illness Narrative* Problem Noted Date Diagnosed Date Resolved Date 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 Internal hemorrhoids without mention of complication 12/28/2007 08/15/2010 External hemorrhoids without mention of complication 12/28/2007 08/15/2010 Diabetes mellitus type 2, co ntrolled, without complications 07/13/2006 07/09/2015 documented as of this encounter (statuses as of 11/04/2022) [facility] History of Past illness Narrative* Problem Noted Date Diagnosed Date Resolved Date 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 Internal hemorrhoids without mention of complication 12/28/2007 08/15/2010 External hemorrhoids without mention of complication 12/28/2007 08/15/2010 Diabetes mellitus type 2, co ntrolled, without complications 07/13/2006 07/09/2015 documented as of this encounter (statuses as of 11/11/2022) [facility] History of Past illness Narrative* Problem Noted Date Diagnosed Date Resolved Date 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 Internal hemorrhoids without mention of complication 12/28/2007 08/15/2010 External hemorrhoids without mention of complication 12/28/2007 08/15/2010 Diabetes mellitus type 2, co ntrolled, without complications 07/13/2006 07/09/2015 documented as of this encounter (statuses as of 11/13/2022) [facility] History of Past illness Narrative* Problem Noted Date Diagnosed Date Resolved Date 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 Internal hemorrhoids without mention of complication 12/28/2007 08/15/2010 External hemorrhoids without mention of complication 12/28/2007 08/15/2010 Diabetes mellitus type 2, co ntrolled, without complications 07/13/2006 07/09/2015 documented as of this encounter (statuses as of 11/15/2022) [facility] History of Past illness Narrative* Problem Noted Date Diagnosed Date Resolved Date 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 Internal hemorrhoids without mention of complication 12/28/2007 08/15/2010 External hemorrhoids without mention of complication 12/28/2007 08/15/2010 Diabetes mellitus type 2, co ntrolled, without complications 07/13/2006 07/09/2015 documented as of this encounter (statuses as of 12/11/2022) [facility] History of Past illness Narrative* Problem Noted Date Diagnosed Date Resolved Date 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 Internal hemorrhoids without mention of complication 12/28/2007 08/15/2010 External hemorrhoids without mention of complication 12/28/2007 08/15/2010 Diabetes mellitus type 2, co ntrolled, without complications 07/13/2006 07/09/2015 documented as of this encounter (statuses as of 12/15/2022) [facility] History of Past illness Narrative* Problem Noted Date Diagnosed Date Resolved Date 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 Internal hemorrhoids without mention of complication 12/28/2007 08/15/2010 External hemorrhoids without mention of complication 12/28/2007 08/15/2010 Diabetes mellitus type 2, co ntrolled, without complications 07/13/2006 07/09/2015 documented as of this encounter (statuses as of 12/15/2022) [facility] History of Past illness Narrative* Problem Noted Date Diagnosed Date Resolved Date 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 Internal hemorrhoids without mention of complication 12/28/2007 08/15/2010 External hemorrhoids without mention of complication 12/28/2007 08/15/2010 Diabetes mellitus type 2, co ntrolled, without complications 07/13/2006 07/09/2015 documented as of this encounter (statuses as of 12/15/2022) [facility] History of Past illness Narrative* Problem Noted Date Diagnosed Date Resolved Date 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 Internal hemorrhoids without mention of complication 12/28/2007 08/15/2010 External hemorrhoids without mention of complication 12/28/2007 08/15/2010 Diabetes mellitus type 2, co ntrolled, without complications 07/13/2006 07/09/2015 documented as of this encounter (statuses as of 12/15/2022) [facility] History of Past illness Narrative* Problem Noted Date Diagnosed Date Resolved Date 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 Internal hemorrhoids without mention of complication 12/28/2007 08/15/2010 External hemorrhoids without mention of complication 12/28/2007 08/15/2010 Diabetes mellitus type 2, co ntrolled, without complications 07/13/2006 07/09/2015 documented as of this encounter (statuses as of 12/17/2022) [facility] History of Past illness Narrative* Problem Noted Date Diagnosed Date Resolved Date 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 Internal hemorrhoids without mention of complication 12/28/2007 08/15/2010 External hemorrhoids without mention of complication 12/28/2007 08/15/2010 Diabetes mellitus type 2, co ntrolled, without complications 07/13/2006 07/09/2015 documented as of this encounter (statuses as of 01/03/2023) [facility] History of Past illness Narrative* Problem Noted Date Diagnosed Date Resolved Date 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 Internal hemorrhoids without mention of complication 12/28/2007 08/15/2010 External hemorrhoids without mention of complication 12/28/2007 08/15/2010 Diabetes mellitus type 2, co ntrolled, without complications 07/13/2006 07/09/2015 documented as of this encounter (statuses as of 01/03/2023) [facility] History of Past illness Narrative* Problem Noted Date Diagnosed Date Resolved Date 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 Internal hemorrhoids without mention of complication 12/28/2007 08/15/2010 External hemorrhoids without mention of complication 12/28/2007 08/15/2010 Diabetes mellitus type 2, co ntrolled, without complications 07/13/2006 07/09/2015 documented as of this encounter (statuses as of 01/03/2023) [facility] History of Past illness Narrative* Problem Noted Date Diagnosed Date Resolved Date 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 Internal hemorrhoids without mention of complication 12/28/2007 08/15/2010 External hemorrhoids without mention of complication 12/28/2007 08/15/2010 Diabetes mellitus type 2, co ntrolled, without complications 07/13/2006 07/09/2015 documented as of this encounter (statuses as of 01/03/2023) [facility] History of Past illness Narrative* Problem Noted Date Diagnosed Date Resolved Date 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 Internal hemorrhoids without mention of complication 12/28/2007 08/15/2010 External hemorrhoids without mention of complication 12/28/2007 08/15/2010 Diabetes mellitus type 2, co ntrolled, without complications 07/13/2006 07/09/2015 documented as of this encounter (statuses as of 01/03/2023) [facility] History of Past illness Narrative* Problem Noted Date Diagnosed Date Resolved Date 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 Internal hemorrhoids without mention of complication 12/28/2007 08/15/2010 External hemorrhoids without mention of complication 12/28/2007 08/15/2010 Diabetes mellitus type 2, co ntrolled, without complications 07/13/2006 07/09/2015 documented as of this encounter (statuses as of 01/03/2023) [facility] History of Past illness Narrative* Problem Noted Date Diagnosed Date Resolved Date 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 Internal hemorrhoids without mention of complication 12/28/2007 08/15/2010 External hemorrhoids without mention of complication 12/28/2007 08/15/2010 Diabetes mellitus type 2, co ntrolled, without complications 07/13/2006 07/09/2015 documented as of this encounter (statuses as of 04/03/2023) [facility] History of Past illness Narrative* Problem Noted Date Diagnosed Date Resolved Date 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 Internal hemorrhoids without mention of complication 12/28/2007 08/15/2010 External hemorrhoids without mention of complication 12/28/2007 08/15/2010 Diabetes mellitus type 2, co ntrolled, without complications 07/13/2006 07/09/2015 documented as of this encounter (statuses as of 04/06/2023) [facility] History of Past illness Narrative* Problem Noted Date Diagnosed Date Resolved Date 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 Internal hemorrhoids without mention of complication 12/28/2007 08/15/2010 External hemorrhoids without mention of complication 12/28/2007 08/15/2010 Diabetes mellitus type 2, co ntrolled, without complications 07/13/2006 07/09/2015 documented as of this encounter (statuses as of 04/06/2023) [facility] History of Past illness Narrative* Problem Noted Date Diagnosed Date Resolved Date 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 Internal hemorrhoids without mention of complication 12/28/2007 08/15/2010 External hemorrhoids without mention of complication 12/28/2007 08/15/2010 Diabetes mellitus type 2, co ntrolled, without complications 07/13/2006 07/09/2015 documented as of this encounter (statuses as of 04/07/2023) [facility] History of Past illness Narrative* Problem Noted Date Diagnosed Date Resolved Date 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 Internal hemorrhoids without mention of complication 12/28/2007 08/15/2010 External hemorrhoids without mention of complication 12/28/2007 08/15/2010 Diabetes mellitus type 2, co ntrolled, without complications 07/13/2006 07/09/2015 documented as of this encounter (statuses as of 04/13/2023) [facility] History of Past illness Narrative* Problem Noted Date Diagnosed Date Resolved Date 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 Internal hemorrhoids without mention of complication 12/28/2007 08/15/2010 External hemorrhoids without mention of complication 12/28/2007 08/15/2010 Diabetes mellitus type 2, co ntrolled, without complications 07/13/2006 07/09/2015 documented as of this encounter (statuses as of 04/13/2023) [facility] History of Past illness Narrative* Problem Noted Date Diagnosed Date Resolved Date 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 Internal hemorrhoids without mention of complication 12/28/2007 08/15/2010 External hemorrhoids without mention of complication 12/28/2007 08/15/2010 Diabetes mellitus type 2, co ntrolled, without complications 07/13/2006 07/09/2015 documented as of this encounter (statuses as of 04/19/2023) [facility] History of Past illness Narrative* Problem Noted Date Diagnosed Date Resolved Date 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 Internal hemorrhoids without mention of complication 12/28/2007 08/15/2010 External hemorrhoids without mention of complication 12/28/2007 08/15/2010 Diabetes mellitus type 2, co ntrolled, without complications 07/13/2006 07/09/2015 documented as of this encounter (statuses as of 04/20/2023) [facility] History of Past illness Narrative* Problem Noted Date Diagnosed Date Resolved Date 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 Internal hemorrhoids without mention of complication 12/28/2007 08/15/2010 External hemorrhoids without mention of complication 12/28/2007 08/15/2010 Diabetes mellitus type 2, co ntrolled, without complications 07/13/2006 07/09/2015 documented as of this encounter (statuses as of 05/03/2023) [facility] History of Past illness Narrative* Problem Noted Date Diagnosed Date Resolved Date 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 Internal hemorrhoids without mention of complication 12/28/2007 08/15/2010 External hemorrhoids without mention of complication 12/28/2007 08/15/2010 Diabetes mellitus type 2, co ntrolled, without complications 07/13/2006 07/09/2015 documented as of this encounter (statuses as of 05/04/2023) [facility] History of Past illness Narrative* Problem Noted Date Diagnosed Date Resolved Date 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 Internal hemorrhoids without mention of complication 12/28/2007 08/15/2010 External hemorrhoids without mention of complication 12/28/2007 08/15/2010 Diabetes mellitus type 2, co ntrolled, without complications 07/13/2006 07/09/2015 documented as of this encounter (statuses as of 05/04/2023) [facility] History of Past illness Narrative* Problem Noted Date Diagnosed Date Resolved Date 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 Internal hemorrhoids without mention of complication 12/28/2007 08/15/2010 External hemorrhoids without mention of complication 12/28/2007 08/15/2010 Diabetes mellitus type 2, co ntrolled, without complications 07/13/2006 07/09/2015 documented as of this encounter (statuses as of 05/07/2023) [facility] History of Past illness Narrative* Problem Noted Date Diagnosed Date Resolved Date 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 Internal hemorrhoids without mention of complication 12/28/2007 08/15/2010 External hemorrhoids without mention of complication 12/28/2007 08/15/2010 Diabetes mellitus type 2, co ntrolled, without complications 07/13/2006 07/09/2015 documented as of this encounter (statuses as of 05/10/2023) [facility] History of Past illness Narrative* Problem Noted Date Diagnosed Date Resolved Date 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 Internal hemorrhoids without mention of complication 12/28/2007 08/15/2010 External hemorrhoids without mention of complication 12/28/2007 08/15/2010 Diabetes mellitus type 2, co ntrolled, without complications 07/13/2006 07/09/2015 documented as of this encounter (statuses as of 05/20/2023) [facility] History of Past illness Narrative* Problem Noted Date Diagnosed Date Resolved Date 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 Internal hemorrhoids without mention of complication 12/28/2007 08/15/2010 External hemorrhoids without mention of complication 12/28/2007 08/15/2010 Diabetes mellitus type 2, co ntrolled, without complications 07/13/2006 07/09/2015 documented as of this encounter (statuses as of 05/20/2023) [facility] History of Past illness Narrative* Problem Noted Date Diagnosed Date Resolved Date 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 Internal hemorrhoids without mention of complication 12/28/2007 08/15/2010 External hemorrhoids without mention of complication 12/28/2007 08/15/2010 Diabetes mellitus type 2, co ntrolled, without complications 07/13/2006 07/09/2015 documented as of this encounter (statuses as of 05/26/2023) [facility] Hawk Santiago [facility] January 26, 2023 3:17pm Note Date/Time January 26, 2023 3:18pm [facility] Medical Records Department [address] [place] [address] Counseling Note - Pharmacy 01/26/23 1517 MR#: [id number] Acct: [id number] Name: PRICILA HOOKER Rep #:[id number] : 1945 77 From: Hawk Santiago PCP: Dr. Vinh Van MD Status:AD M IN Location: [facility] [id number] Pharmacy [facility] has performed discharge medication reconciliation and counseling for this patient. The patient's discharge medication list was reviewed for discrepancies and discrepancies were resolved. The patient was counseled on the following discharge medications and changes in medications for homegoing were reviewed. The Reason for Use, instructions for use, and potential side effects were reviewed for all new medications. The patient's questions regarding all of their medications were answered. 1. Levofloxacin 750 mg PO daily x 5 days The patient was able to verbally demonstrate an understanding of their dischargemedications. The patient was counselled on new medication by pharmacy coordinator Bhavin. Medications at Discharge Home Medications metformin 500 mg tablet 2 tab PO BID #120 tabs 05/06/20 amitriptyline 50 mg tablet 50 mg PO QHS 12/23/22 atorvastatin 40 mg tablet 40 mg PO QHS 12/23/22 dulaglutide 3 mg/0.5 mL subcutaneous pen injector (Trulicity) 3 mg subcut QWEEK 12/23/22 gabapentin 100 mg capsule 100 mg PO BID 12/23/22 carvedilol 3.125 mg tablet 3.125 mg PO BID #60 tabs 12/29/22 empagliflozin 10 mg tablet (Jardiance) 10 mg PO DAILY #30 tabs 12/29/22 lisinopril 2.5 mg tablet 2.5 mg PO DAILY #30 tabs 12/29/22 magnesium chloride 71.5 mg (magnesium chloride) tablet,delayed release (Slow- Mag) 71.5 mg PO BID 12/29/22 ondansetron HCl 8 mg tablet 8 mg PO Q12H PRN nausea 12/29/22 aspirin 81 mg tablet,delayed release (Adult Low Dose Aspirin) 81 mg PO DAILY 01/24/23 levofloxacin 750 mg tablet 750 mg PO DAILY 5 days #5 tabs 01/26/23 01/26/23 1517 <Electronically signed by Hawk hess> Date _ Hawk Elizabeth Signature (if applicable): Date CC: ~ Signed [facility] Work Phone: Consult note Author Hawk Santiago [facility] March 12, 2023 2:34pm Note Date/Time March 12, 2023 2 :35pm [facility] Medical Records Department [address] [place] [address] Counseling Note - Pharmacy 03/12/23 1434 MR#: [id number] Acct: [id number] Name: PRICILA HOOKER Rep #:[id number] : 1945 77 From: Hawk Santiago PCP: Dr. Vinh Van MD Status:AD M IN [facility] has performed discharge medication reconciliation and counseling for this patient. The patient's discharge medication list was reviewed for discrepancies and discrepancies were resolved. The patient was counseled on the following discharge medications and changes in medications for homegoing were reviewed. The Reason for Use, instructions for use, and potential side effects were reviewed for all new medications. The patient's questions regarding all of their medications were answered. 1. Cefdinir 300 mg PO BID x 7 days The patient was able to verbally demonstrate an understanding of their dischargemedications. Medications at Discharge Home Medications metformin 500 mg tablet 2 tab PO BID DIABETES #120 tabs 05/06/20 amitriptyline 50 mg tablet 50 mg PO QHS DEPRESSION 12/23/22 atorvastatin 40 mg tablet 40 mg PO QHS CHOLESTEROL 12/23/22 dulaglutide 3 mg/0.5 mL subcutaneous pen injector (Trulicity) 3 mg subcut TU DIABETES 12/23/22 gabapentin 100 mg capsule 100 mg PO TID NERVE PAIN 12/23/22 empagliflozin 10 mg tablet (Jardiance) 10 mg PO DAILY DIABETES #30 tabs 12/29/22 magnesium chloride 71.5 mg (magnesium chloride) tablet,delayed release (Slow- Mag) 71.5 mg PO BID SUPPLEMENT 12/29/22 ondansetron HCl 8 mg tablet 8 mg PO Q12H PRN NAUSEA 12/29/22 aspirin 81 mg tablet,delayed release (Adult Low Dose Aspirin) 81 mg PO DAILY HEART HEALTH 01/24/23 acetaminophen 500 mg tablet (Acetaminophen Extra Strength) 500 mg PO Q6H PRN PAIN 03/10/23 glimepiride 4 mg tablet 4 mg PO BID DIABETES 03/10/23 silver sulfadiazine 1 % topical cream 1 applic topical DAILY PRN BURN 03/10/23 cefdinir 300 mg capsule 300 mg PO BID #14 caps 03/12/23 03/12/23 [id number] <Electronically signed by Hawk Rocha r> Date _ Hawk Elizabeth Signature (if applicable): Date CC: ~ Signed [facility] [facility] Work Phone: Discharge summary Author Georgia Romero [facility] January 26, 2023 2:35pm Note Date/Time January 26, 2023 1:53pm [facility] Medical Records Department [address] [place] [address] Instructions for Home/Discharge Instructions 01/26/23 1351 MR#: [id number] Acct: [id number] Name: PRICILA HOOKER Rep #:[id number] : 1945 77 From: Georgia Romero MD PCP: Dr. Vinh Van MD Status:AD M IN Discharge Instructions Diet Discharge Diet: - (-DASH diet, 3000 mg sodium restriction, 2 L fluid restriction) Activity Discharge Activity: Use Walker Follow Up Care Test Results: Test results from this visit will be discussed in further detail at your follow- up appointment, if applicable. Discharge Plan Admission Admit Date/Time: 01/24/23 17:21 Primary Reason for Your Visit: Altered mental status Attending Provider: Georgia Romero Primary Care Provider: Vinh Van Consulting Providers: Abraham Edgar Instructions Patient Instructions: ED Fall Prevention Additional Instructions / Restrictions: DISCHARGE INSTRUCTIONS PLEASE READ *Please take this with you to your next doctors appointment* -Given your glucose was fairly well controlled while in the hospital your glimepiride will be held on discharge, this will likely need to be resumed as you resume your regular activities but would defer to your primary physician on optimal timing to resume -You will also be discharged on 5 more days of an antibiotic, Levaquin, that youwill take daily for your urinary tract infection -Please call your primary care provider's office upon discharge to schedule a hospital follow up within 1 week. -For any concerning signs or symptoms please call 911 or proceed to the nearest emergency department Discharge Orders/Prescriptions Prescriptions: New levofloxacin 750 mg tablet 750 mg PO DAILY 5 Days Qty: 5 0RF Continued amitriptyline 50 mg tablet 50 mg PO QHS gabapentin 100 mg capsule 100 mg PO BID Trulicity 3 mg/0.5 mL pen injector 3 mg subcut QWEEK atorvastatin 40 mg tablet 40 mg PO QHS Patient Comments: TAKE 1 TABLET BY MOUTH ONCE DAILY AT BEDTIME FOR CHOLESTEROL Slow-Mag 71.5 mg tablet,delayed release (DR/EC) 71.5 mg PO BID ondansetron HCl 8 mg tablet 8 mg PO Q12H PRN (Reason: nausea) metformin 500 MG tablet 2 tab PO BID Qty: 120 0RF aspirin [Adult Low Dose Aspirin] 81 mg tablet,delayed release (DR/EC) 81 mg PO DAILY carvedilol 3.125 mg tablet 3.125 mg PO BID Qty: 60 11RF Rx Instructions: must administer with a meal/food lisinopril 2.5 mg tablet 2.5 mg PO DAILY Qty: 30 11RF Jardiance 10 mg tablet 10 mg PO DAILY Qty: 30 11RF Discontinued glimepiride 4 MG tablet 1 tab PO BIDCM Referrals / Follow Up: Vinh Van MD [Primary Care Provider] - Within 1 Week Disposition Disposition (needs filled in before D/C Order can be placed): Home, Self Care 01/26/23 1435<Electronically signed by Georgia Romero MD>Georgia Romero MD CC: Dr. Abraham Edgar MD; Dr. Vinh Van MD ~ Signed [facility] Work Phone: Discharge summary Author Ramy Anglin [facility] April 12, 2023 12:41pm Note Date/Time April 12, 2023 12:39pm [facility] Medical Records Department [facility] [place] [address] Instructions for Home/Discharge Instructions 04/12/23 1238 MR#: [id number] Acct: [id number] Name: PRICILA HOOKER Rep #:[id number] : 1945 77 From: Ramy jin DO PCP: Dr. Vinh Van MD Status:AD M DIONE Discharge Instructions Diet Discharge Diet: No restrictions Activity Discharge Activity: No Restrictions Weight Bearing Status: Full weight bearing Follow Up Care Test Results: Test results from this visit will be discussed in further detail at your follow- up appointment, if applicable. Discharge Plan Admission Admit Date/Time: 04/10/23 21:54 Primary Reason for Your Visit: hypotension and presyncopal symptoms Attending Provider: Ramy Anglin Primary Care Provider: Vinh Van Consulting Providers: Syed Muñiz Instructions Additional Instructions / Restrictions: Continue all home medications as normal. Follow-up with your primary care doctor as needed and with Dr. Branham as previously scheduled. Discharge Orders/Prescriptions Prescriptions: Continued amitriptyline 50 mg tablet 50 mg PO QHS gabapentin 100 mg capsule 100 mg PO TID Patient Comments: PT STATES ONLY TAKES ONE CAPSULE TWICE A DAY ( OF 03/10/23) Trulicity 3 mg/0.5 mL pen injector 3 mg subcut TU atorvastatin 40 mg tablet 40 mg PO QHS Slow-Mag 71.5 mg tablet,delayed release (DR/EC) 71.5 mg PO BID ondansetron HCl 8 mg tablet 8 mg PO Q12H PRN (Reason: NAUSEA ) metformin 500 MG tablet 2 tab PO BID Qty: 120 0RF Hold Instructions: Resume on 03/21/23. silver sulfadiazine 1 % cream 1 applic topical DAILY PRN (Reason: BURN) Rx Instructions: APPLY ONE APPLICATION ONCE DAILY NEEDED TO HAND glimepiride 4 mg tablet 4 mg PO BID acetaminophen [Acetaminophen Extra Strength] 500 mg tablet 500 mg PO Q6H PRN (Reason: PAIN ) aspirin [Adult Low Dose Aspirin] 81 mg tablet,delayed release (DR/EC) 81 mg PO DAILY Discontinued cefdinir 300 mg capsule 300 mg PO BID Qty: 14 0RF Referrals / Follow Up: Vinh aVn MD [Primary Care Provider] - Disposition Disposition (needs filled in before D/C Order can be placed): Home, Self Care 04/12/23 1241<Electronically signed by Ramy Anglin DO>Ramy Anglin DO CC: Dr. Vinh Van MD; Dr. 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, not stated as uncontrolled, or unspecified Mixed hyperlipidemia Insomnia, unspecified type Psoriasis of scalp Other psoriasis Special screening for malignant neoplasms, colon Encounter for immunization Need for other specified prophylactic vaccination against single bacterial disease [facility] Diagnosis Type 2 diabetes mellitus without complication, with no history of insulin use (HCC)- Primary 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, not stated as uncontrolled, or unspecified Essential hypertension, benign Mixed hyperlipidemia [facility]* Diagnosis Type 2 diabetes mellitus without complication, with no history of insulin use (HCC)- Primary [facility]* Diagnosis Type 2 diabetes mellitus without complication, with no history of insulin use (HCC)- Primary Essential hypertension, benign Medication management Encounter for long-term (current) use of other medications [facility]* Diagnosis Type 2 diabetes mellitus without complication, with no history of insulin use (HCC)- Primary [facility]* Diagnosis Obesity, Class III, BMI 40-49.9 (morbid obesity) (HCC)- Primary Morbid obesity Special screening for malignant neoplasms, colon [facility]* Diagnosis Type 2 diabetes mellitus without complication, with no history of insulin use (HCC)- Primary 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, not stated as uncontrolled, or unspecified Mixed hyperlipidemia [facility]* Diagnosis Type 2 diabetes mellitus without complication, with no history of insulin use (HCC)- Primary [facility]* Diagnosis Type 2 diabetes mellitus without complication, with no history of insulin use (HCC)- Primary [facility]* Diagnosis Type 2 diabetes mellitus without complication, with no history of insulin use (HCC)- Primary [facility] Diagnosis Acute cystitis with hematuria- Primary Acute cystitis Flank pain Abdominal pain, unspecified site Vaginal bleeding Other specified noninflammatory disorder of vagina [facility]* Diagnosis 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, not stated as uncontrolled, or unspecified [facility] Acute pain of right shoulder 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, not stated as uncontrolled, or unspecified [facility] Diagnosis Acute cystitis with hematuria- Primary Acute cystitis Abdominal cramping Abdominal pain, unspecified site [facility] Diagnosis Abnormal ultrasound- Primary Other nonspecific (abnormal) findings on radiological and other examinations of body structure Adnexal cyst Other specified symptom associated with female genital organs [facility]* Diagnosis Vaginal bleeding- Primary Other specified noninflammatory disorder of vagina [facility]* Diagnosis Adnexal cyst- Primary Other specified symptom associated with female genital organs Vaginal bleeding Other specified noninflammatory disorder of vagina Abnormal CT of the abdomen Nonspecific (abnormal) findings on radiological and other examination of abdominal area, including retroperitoneum [facility] Diagnosis Elevated CA-125- Primary Elevated cancer antigen 125 [CA 125] Endometrial thickening on ultrasound Abnormal CT of the abdomen Nonspecific (abnormal) findings on radiological and other examination of abdominal area, including retroperitoneum [facility] Diagnosis Elevated cancer antigen 125 (CA-125)- Primary Elevated cancer antigen 125 [CA 125] Adnexal mass Other specified symptom associated with female genital organs Elevated CA-125 Elevated cancer antigen 125 [CA 125] Endometrial thickening on ultrasound Abnormal CT of the abdomen Nonspecific (abnormal) findings on radiological and other examination of abdominal area, including retroperitoneum [facility] Diagnosis 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, not stated as uncontrolled, or unspecified [facility] Diagnosis Surgery follow-up examination- Primary Follow-up examination, following unspecified surgery Endometrial cancer (HCC) Malignant neoplasm of corpus uteri, except isthmus [facility] Diagnosis Endometrial cancer (HCC)- Primary Malignant neoplasm of corpus uteri, except isthmus [facility] Diagnosis Surgery follow-up examination- Primary Follow-up examination, following unspecified surgery Endometrial cancer (HCC) Malignant neoplasm of corpus uteri, except isthmus Secondary malignancy of iliac lymph nodes (HCC) Other specified counseling [facility] Diagnosis Endometrial cancer (HCC)- Primary Malignant neoplasm of corpus uteri, except isthmus Neuropathy Mononeuritis of unspecified site 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, not stated as uncontrolled, or unspecified [facility] Diagnosis Low serum vitamin B12- Primary [facility] Diagnosis Type 2 diabetes mellitus without complication, with no history of insulin use (HCC)- Primary Endometrial cancer (HCC) Malignant neoplasm of corpus uteri, except isthmus [facility] Diagnosis Endometrial cancer (HCC) Malignant neoplasm of corpus uteri, except isthmus Exhausted vascular access Other specified circulatory system disorders Endometrial cancer (HCC) Malignant neoplasm of corpus uteri, except isthmus [facility] Diagnosis Encounter for education- Primary Counseling NOS Endometrial cancer (HCC) Malignant neoplasm of corpus uteri, except isthmus Endometrial cancer (HCC) Malignant neoplasm of corpus uteri, except isthmus [facility] Endometrial cancer (HCC)- Primary Malignant neoplasm of corpus uteri, except isthmus Family history of colon cancer Family history of malignant neoplasm of gastrointestinal tract Endometrial cancer (HCC) Malignant neoplasm of corpus uteri, except isthmus [facility] Diagnosis Endometrial cancer (HCC)- Primary Malignant neoplasm of corpus uteri, except isthmus 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, not stated as uncontrolled, or unspecified Neuropathy Mononeuritis of unspecified site [facility]* Diagnosis Endometrial cancer (HCC)- Primary Malignant neoplasm of corpus uteri, except isthmus [facility] Diagnosis Endometrial cancer (HCC)- Primary Malignant neoplasm of corpus uteri, except isthmus [facility]* Diagnosis Endometrial cancer (HCC)- Primary Malignant neoplasm of corpus uteri, except isthmus Malaise and fatigue Other malaise and fatigue Essential hypertension, benign 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, not stated as uncontrolled, or unspecified [facility] Diagnosis Endometrial cancer (HCC)- Primary Malignant neoplasm of corpus uteri, except isthmus [facility] Diagnosis Endometrial cancer (HCC) Malignant neoplasm of corpus uteri, except isthmus Malaise and fatigue Other malaise and fatigue [facility]* Diagnosis Endometrial cancer (HCC)- Primary Malignant neoplasm of corpus uteri, except isthmus 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, not stated as uncontrolled, or unspecified Platelets decreased (HCC) Thrombocytopenia, unspecified [facility] Diagnosis Endometrial cancer (HCC)- Primary Malignant neoplasm of corpus uteri, except isthmus Malaise and fatigue Other malaise and fatigue [facility]* Diagnosis Type 2 diabetes mellitus without complication, with no history of insulin use (HCC)- Primary Elevated glucose Other abnormal glucose [facility]* Diagnosis Dysphagia, unspecified type- Primary [facility]* Diagnosis Gastroesophageal reflux disease with esophagitis without hemorrhage- Primary Chronic superficial gastritis without bleeding Atrophic gastritis without mention of hemorrhage [facility]* Diagnosis Endometrial cancer (HCC)- Primary Malignant neoplasm of corpus uteri, except isthmus [facility]* Diagnosis Endometrial cancer (HCC)- Primary Malignant neoplasm of corpus uteri, except isthmus [facility]* Diagnosis Endometrial cancer (HCC)- Primary Malignant neoplasm of corpus uteri, except isthmus 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, not stated as uncontrolled, or unspecified Stage 3a chronic kidney disease (HCC) [facility]* Diagnosis Endometrial cancer (HCC)- Primary Malignant neoplasm of corpus uteri, except isthmus [facility]* Diagnosis Endometrial cancer (HCC) Malignant neoplasm of corpus uteri, except isthmus Malaise and fatigue Other malaise and fatigue [facility]* Diagnosis Endometrial cancer (HCC)- Primary Malignant neoplasm of corpus uteri, except isthmus Malaise and fatigue Other malaise and fatigue [facility]* Diagnosis Endometrial cancer (HCC)- Primary Malignant neoplasm of corpus uteri, except isthmus Neurogenic orthostatic hypotension (HCC) Encounter for monitoring cardiotoxic drug therapy Encounter for therapeutic drug monitoring [facility] Diagnosis Endometrial cancer (HCC) Malignant neoplasm of corpus uteri, except isthmus Malaise and fatigue Other malaise and fatigue [facility]* Diagnosis Abnormal electrocardiogram- Primary Nonspecific abnormal electrocardiogram (ECG) (EKG) Type 2 diabetes mellitus without complication, with no history of insulin use (HCC) Endometrial cancer (HCC) Malignant neoplasm of corpus uteri, except isthmus Encounter for monitoring cardiotoxic drug therapy Encounter for therapeutic drug monitoring [facility] Diagnosis Neurogenic orthostatic hypotension (HCC)- Primary Encounter for monitoring cardiotoxic drug therapy Encounter for therapeutic drug monitoring Nonspecific abnormal electrocardiogram (ECG) (EKG) [facility]* Diagnosis Endometrial cancer (HCC)- Primary Malignant neoplasm of corpus uteri, except isthmus [facility] Diagnosis Abnormal electrocardiogram Nonspecific abnormal electrocardiogram (ECG) (EKG) Type 2 diabetes mellitus without complication, with no history of insulin use (HCC) Endometrial cancer (HCC) Malignant neoplasm of corpus uteri, except isthmus Encounter for monitoring cardiotoxic drug therapy Encounter for therapeutic drug monitoring Endometrial cancer (HCC)- Primary Malignant neoplasm of corpus uteri, except isthmus [facility] Diagnosis Acute systolic congestive heart failure (HCC)- Primary Acute systolic heart failure Endometrial cancer (HCC) Malignant neoplasm of corpus uteri, except isthmus Type 2 diabetes mellitus without complication, with no history of insulin use (HCC) Endometrial cancer (HCC)- Primary Malignant neoplasm of corpus uteri, except isthmus [facility]* Diagnosis Endometrial cancer (HCC) Malignant neoplasm of corpus uteri, except isthmus Malaise and fatigue Other malaise and fatigue Asthenia Other malaise and fatigue 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, unspecified Muscle weakness Muscle weakness (generalized) [facility]* Diagnosis Endometrial cancer (HCC)- Primary Malignant neoplasm of corpus uteri, except isthmus Chemotherapy-induced neuropathy (HCC) Polyneuropathy due to drugs [facility]* Diagnosis Endometrial cancer (HCC) Malignant neoplasm of corpus uteri, except isthmus [facility] Diagnosis Adnexal cyst Other specified symptom associated with female genital organs Vaginal bleeding Other specified noninflammatory disorder of vagina Abnormal CT of the abdomen Nonspecific (abnormal) findings on radiological and other examination of abdominal area, including retroperitoneum [facility]* Diagnosis Endometrial cancer (HCC) Malignant neoplasm of corpus uteri, except isthmus [facility] Diagnosis Endometrial cancer (HCC) Malignant neoplasm of corpus uteri, except isthmus [facility] Diagnosis Abnormal ultrasound Other nonspecific (abnormal) findings on radiological and other examinations of body structure Adnexal cyst Other specified symptom associated with female genital organs [facility] Diagnosis Flank pain Abdominal pain, unspecified site [facility]* Diagnosis Gastroesophageal reflux disease, unspecified whether esophagitis present- Primary Dysphagia, unspecified type [facility]* Diagnosis Endometrial cancer (HCC)- Primary Malignant neoplasm of corpus uteri, except isthmus [facility]* Diagnosis Endometrial cancer (HCC) Malignant neoplasm of corpus uteri, except isthmus Malaise and fatigue Other malaise and fatigue [facility] Diagnosis Endometrial cancer (HCC)- Primary Malignant neoplasm of corpus uteri, except isthmus [facility]* Diagnosis Endometrial cancer (HCC)- Primary Malignant neoplasm of corpus uteri, except isthmus Endometrial cancer (HCC)- Primary Malignant neoplasm of corpus uteri, except isthmus [facility]* Diagnosis Endometrial cancer (HCC)- Primary Malignant neoplasm of corpus uteri, except isthmus Chemotherapy-induced neuropathy (HCC) Polyneuropathy due to drugs Endometrial cancer (HCC)- Primary Malignant neoplasm of corpus uteri, except isthmus [facility] Diagnosis Onset Date Resolution Status Coronary artery disease data librarian aniket Diabetes chronic Dyslipidemia chronic Endometrial cancer chronic Hypertension chronic Nonischemic cardiomyopathy c hronic Obesity chronic Acute dehydration acute Acute hypotension acute Acute kidney injury acute Acute UTI acute History of cancer of uterus acute Hypomagnesemia acute Pancytopenia acute [facility] Work Phone: Evaluation note* Diagnosis Onset Date Resolution Status Coronary artery disease data librarian aniket Diabetes chronic Dyslipidemia chronic Endometrial cancer chronic Hypertension chronic Nonischemic cardiomyopathy c hronic Obesity chronic Acute dehydration acute Acute hypotension acute Acute kidney injury acute Acute UTI acute History of cancer of uterus acute Hypomagnesemia acute Pancytopenia acute Sepsis acute [facility] Work Phone: Evaluation note* Diagnosis Endometrial cancer (HCC) Malignant neoplasm of corpus uteri, except isthmus Malaise and fatigue Other malaise and fatigue [facility] Endometrial cancer (HCC)- Primary Malignant neoplasm of corpus uteri, except isthmus Encounter for monitoring cardiotoxic drug therapy Encounter for therapeutic drug monitoring Immunotherapy Other cardiomyopathy (HCC) Pancytopenia (HCC) Other pancytopenia 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, not stated as uncontrolled, or unspecified Stage 3a chronic kidney disease (HCC) Platelets decreased (HCC) Thrombocytopenia, unspecified [facility] Cardiomyopathy, nonischemic (HCC)- Primary Other primary cardiomyopathies [facility] Endometrial cancer (HCC) Malignant neoplasm of corpus uteri, except isthmus Malaise and fatigue Other malaise and fatigue [facility] Diagnosis Type 2 diabetes mellitus without complication, with no history of insulin use (HCC)- Primary [facility] Diagnosis Endometrial cancer (HCC)- Primary Malignant neoplasm of corpus uteri, except isthmus Type 2 diabetes mellitus without complication, with no history of insulin use (HCC) [facility] Diagnosis Onset Date Resolution Status Coronary artery disease data librarian aniket Diabetes chronic Dyslipidemia chronic Endometrial cancer chronic Hypertension chronic Nonischemic cardiomyopathy c hronic Obesity chronic Acute dehydration resolved Acute hypotension resolved Acute kidney injury resolved Sepsis resolved Coronary artery disease data librarian aniket Diabetes chronic Dyslipidemia chronic Endometrial cancer chronic Hypotension (arterial) chron ic Nonischemic cardiomyopathy c hronic Obesity chronic Urinary tract infection acut e CKD (chronic kidney disease) stage 3, GFR 30-59 ml/min chronic Hypotension (arterial) chron ic [facility] Work Phone: Evaluation note* Diagnosis Heart failure with mildly reduced ejection fraction (HCC)- Primary Obesity, Class III, BMI 40-49.9 (morbid obesity) (HCC) Morbid obesity 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, not stated as uncontrolled, or unspecified Cardiomyopathy, unspecified type (HCC) Acute myocarditis, unspecified myocarditis type Chemotherapy induced cardiomyopathy (HCC) (HCC) Secondary cardiomyopathy, unspecified [facility] Onset Date Resolution Status Coronary artery disease data librarian aniket Diabetes chronic Dyslipidemia chronic Endometrial cancer chronic Hypertension chronic Nonischemic cardiomyopathy c hronic Obesity chronic Acute dehydration resolved Acute hypotension resolved Acute kidney injury resolved Sepsis resolved Coronary artery disease data librarian aniket Diabetes chronic Dyslipidemia chronic Endometrial cancer chronic Hypotension (arterial) chron ic Nonischemic cardiomyopathy c hronic Obesity chronic CKD (chronic kidney disease) stage 3, GFR 30-59 ml/min chronic Hypotension (arterial) chron ic Urinary tract infection reso lved [facility] Work Phone: Evaluation note* Diagnosis Onset Date Resolution Status Coronary artery disease data librarian aniket Diabetes chronic Dyslipidemia chronic Endometrial cancer chronic Hypertension chronic Nonischemic cardiomyopathy c hronic Obesity chronic Acute kidney injury acute Acute dehydration resolved Acute hypotension resolved Sepsis resolved Coronary artery disease data librarian aniket Diabetes chronic Dyslipidemia chronic Endometrial cancer chronic Hypotension (arterial) chron ic Nonischemic cardiomyopathy c hronic Obesity chronic CKD (chronic kidney disease) stage 3, GFR 30-59 ml/min chronic Hypotension (arterial) chron ic Urinary tract infection reso lved Acute kidney injury acute Hypotension (arterial) chron ic Nonischemic cardiomyopathy c [facility] Work Phone: Evaluation note* Diagnosis 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 Obesity, Class III, BMI 40-49.9 (morbid obesity) (HCC) Morbid obesity 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, not stated as uncontrolled, or unspecified Heart failure with mildly reduced ejection fraction (HCC) [facility] Heart failure with mildly reduced ejection fraction (HCC)- Primary Dyspnea on exertion Other dyspnea and respiratory abnormality Neurogenic orthostatic hypotension (HCC) Chemotherapy induced cardiomyopathy (HCC) (HCC) Secondary cardiomyopathy, unspecified 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, not stated as uncontrolled, or unspecified Obesity, Class III, BMI 40-49.9 (morbid obesity) (HCC) Morbid obesity [facility] Diagnosis 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, not stated as uncontrolled, or unspecified [facility] Diagnosis Heart failure with mildly reduced ejection fraction (HCC)- Primary Essential hypertension, benign Obesity, Class III, BMI 40-49.9 (morbid obesity) (HCC) Morbid obesity Chemotherapy induced cardiomyopathy (HCC) Secondary cardiomyopathy, unspecified [facility] Diagnosis Endometrial cancer (HCC)- Primary Malignant neoplasm of corpus uteri, except isthmus Malaise and fatigue Other malaise and fatigue [facility] Diagnosis Endometrial cancer (HCC)- Primary Malignant neoplasm of corpus uteri, except isthmus [facility] Diagnosis 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, not stated as uncontrolled, or unspecified [facility] Diagnosis Obesity, Class III, BMI 40-49.9 (morbid obesity) (HCC) Morbid obesity 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, not stated as uncontrolled, or unspecified Heart failure with mildly reduced ejection fraction (HCC) Cardiomyopathy, unspecified type (HCC) Acute myocarditis, unspecified myocarditis type [facility] Diagnosis Heart failure with mildly reduced ejection fraction (HCC)- Primary Obesity, Class III, BMI 40-49.9 (morbid obesity) (HCC) Morbid obesity Essential hypertension, benign Type 2 diabetes mellitus without complication, with no history of insulin use (HCC) Mixed hyperlipidemia [facility] Diagnosis Hyperlipidemia, unspecified hyperlipidemia type [facility] Diagnosis Endometrial cancer (HCC)- Primary Malignant neoplasm of corpus uteri, except isthmus Malaise and fatigue Other malaise and fatigue [facility]* Diagnosis Endometrial cancer (HCC) Malignant neoplasm of corpus uteri, except isthmus [facility] Diagnosis Endometrial cancer (HCC)- Primary Malignant neoplasm of corpus uteri, except isthmus Secondary malignancy of iliac lymph nodes (HCC) Left hip pain Pain in joint, pelvic region and thigh Lung nodule Solitary pulmonary nodule [facility]* Diagnosis Type 2 diabetes mellitus without complication, with no history of insulin use (HCC)- Primary 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, not stated as uncontrolled, or unspecified Chemotherapy-induced neuropathy (HCC) Polyneuropathy due to drugs Essential hypertension, benign Stage 3a chronic kidney disease (HCC) Hyperlipidemia, unspecified hyperlipidemia type Left sided sciatica Sciatica Chronic right shoulder pain Pain in joint, shoulder region Endometrial cancer (HCC) Malignant neoplasm of corpus uteri, except isthmus [facility] Diagnosis Endometrial cancer (HCC) Malignant neoplasm of corpus uteri, except isthmus Secondary malignancy of iliac lymph nodes (HCC) Left hip pain Pain in joint, pelvic region and thigh [facility] Diagnosis Endometrial cancer (HCC)- Primary Malignant neoplasm of corpus uteri, except isthmus Lung nodule Solitary pulmonary nodule Secondary malignancy of iliac lymph nodes (HCC) [facility]* Diagnosis Obesity hypoventilation syndrome (HCC)- Primary Obesity hypoventilation syndrome SOB (shortness of breath) Shortness of breath [facility]* Diagnosis 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, not stated as uncontrolled, or unspecified [facility] Diagnosis Hospital discharge follow-up- Primary Other follow-up examination Hypoventilation Other dyspnea and respiratory abnormality Acute respiratory failure with hypoxia (HCC) Acute respiratory failure Lung nodules Other nonspecific abnormal finding of lung field Endometrial cancer (HCC) Malignant neoplasm of corpus uteri, except isthmus Acute on chronic systolic CHF (congestive heart failure) (HCC) Acute on chronic systolic heart failure Psoriasis Other psoriasis [facility] Diagnosis Lung nodules- Primary Other nonspecific abnormal finding of lung field Chronic respiratory failure with hypoxia and hypercapnia (HCC) Morbid obesity (HCC) Morbid obesity Endometrial cancer (HCC) Malignant neoplasm of corpus uteri, except isthmus ALEXX (obstructive sleep apnea) Obstructive sleep apnea (adult) (pediatric) Obesity hypoventilation syndrome (HCC) Obesity hypoventilation syndrome Ex-smoker Personal history of tobacco use, presenting hazards to health [facility] Diagnosis Type 2 diabetes mellitus without complication, with no history of insulin use (HCC) [facility] Diagnosis Acute on chronic systolic congestive heart failure (HCC)- Primary Acute on chronic systolic heart failure Heart failure with mildly reduced ejection fraction (HCC) Type 2 diabetes mellitus with other specified complication, unspecified whether exterminator helper termite insulin use (HCC) Chemotherapy-induced neuropathy (HCC) Polyneuropathy due to drugs Type 2 diabetes mellitus without complication, with no history of insulin use (HCC) Chemotherapy induced cardiomyopathy (HCC) Secondary cardiomyopathy, unspecified [facility] Diagnosis Pre-operative examination- Primary Preoperative examination, unspecified 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, not stated as uncontrolled, or unspecified Essential hypertension, benign Mixed hyperlipidemia Status post total bilateral knee replacement Type 2 diabetes mellitus without complication, with no history of insulin use (HCC) Obesity, Class III, BMI 40-49.9 (morbid obesity) (HCC) Morbid obesity Former smoker Personal history of tobacco use, presenting hazards to health Gastroesophageal reflux disease, unspecified whether esophagitis present Endometrial cancer (HCC) Malignant neoplasm of corpus uteri, except isthmus Lung nodule Solitary pulmonary nodule Secondary malignancy of iliac lymph nodes (HCC) documented in this encounter [facility] note* Diagnosis Pre-operative examination- Primary Preoperative examination, unspecified 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, not stated as uncontrolled, or unspecified Essential hypertension, benign Mixed hyperlipidemia Status post total bilateral knee replacement Type 2 diabetes mellitus without complication, with no history of insulin use (HCC) Obesity, Class III, BMI 40-49.9 (morbid obesity) (HCC) Morbid obesity Former smoker Personal history of tobacco use, presenting hazards to health Gastroesophageal reflux disease, unspecified whether esophagitis present Endometrial cancer (HCC)- Primary Malignant neoplasm of corpus uteri, except isthmus Lung nodules Other nonspecific abnormal finding of lung field documented in this encounter [facility] note* Diagnosis Pre-operative examination- Primary Preoperative examination, unspecified 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, not stated as uncontrolled, or unspecified Essential hypertension, benign Mixed hyperlipidemia Status post total bilateral knee replacement Type 2 diabetes mellitus without complication, with no history of insulin use (HCC) Obesity, Class III, BMI 40-49.9 (morbid obesity) (HCC) Morbid obesity Former smoker Personal history of tobacco use, presenting hazards to health Gastroesophageal reflux disease, unspecified whether esophagitis present 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, not stated as uncontrolled, or unspecified [facility]* Diagnosis Pre-operative examination- Primary Preoperative examination, unspecified 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, not stated as uncontrolled, or unspecified Essential hypertension, benign Mixed hyperlipidemia Status post total bilateral knee replacement Type 2 diabetes mellitus without complication, with no history of insulin use (HCC) Obesity, Class III, BMI 40-49.9 (morbid obesity) (HCC) Morbid obesity Former smoker Personal history of tobacco use, presenting hazards to health Gastroesophageal reflux disease, unspecified whether esophagitis present Lung nodules Other nonspecific abnormal finding of lung field [facility] Diagnosis Pre-operative examination- Primary Preoperative examination, unspecified 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, not stated as uncontrolled, or unspecified Essential hypertension, benign Mixed hyperlipidemia Status post total bilateral knee replacement Type 2 diabetes mellitus without complication, with no history of insulin use (HCC) Obesity, Class III, BMI 40-49.9 (morbid obesity) (HCC) Morbid obesity Former smoker Personal history of tobacco use, presenting hazards to health Gastroesophageal reflux disease, unspecified whether esophagitis present Chronic right shoulder pain Pain in joint, shoulder region [facility] Diagnosis Pre-operative examination- Primary Preoperative examination, unspecified 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, not stated as uncontrolled, or unspecified Essential hypertension, benign Mixed hyperlipidemia Status post total bilateral knee replacement Type 2 diabetes mellitus without complication, with no history of insulin use (HCC) Obesity, Class III, BMI 40-49.9 (morbid obesity) (HCC) Morbid obesity Former smoker Personal history of tobacco use, presenting hazards to health Gastroesophageal reflux disease, unspecified whether esophagitis present Endometrial cancer (HCC)- Primary Malignant neoplasm of corpus uteri, except isthmus Secondary malignancy of iliac lymph nodes (HCC) Endometrial cancer (HCC) Malignant neoplasm of corpus uteri, except isthmus [facility] Diagnosis Pre-operative examination- Primary Preoperative examination, unspecified 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, not stated as uncontrolled, or unspecified Essential hypertension, benign Mixed hyperlipidemia Status post total bilateral knee replacement Type 2 diabetes mellitus without complication, with no history of insulin use (HCC) Obesity, Class III, BMI 40-49.9 (morbid obesity) (HCC) Morbid obesity Former smoker Personal history of tobacco use, presenting hazards to health Gastroesophageal reflux disease, unspecified whether esophagitis present Lung nodule seen on imaging study- Primary Solitary pulmonary nodule Endometrial cancer (HCC) Malignant neoplasm of corpus uteri, except isthmus [facility] Diagnosis Pre-operative examination- Primary Preoperative examination, unspecified 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, not stated as uncontrolled, or unspecified Essential hypertension, benign Mixed hyperlipidemia Status post total bilateral knee replacement Type 2 diabetes mellitus without complication, with no history of insulin use (HCC) Obesity, Class III, BMI 40-49.9 (morbid obesity) (HCC) Morbid obesity Former smoker Personal history of tobacco use, presenting hazards to health Gastroesophageal reflux disease, unspecified whether esophagitis present Carcinomatosis (HCC) Disseminated malignant neoplasm Macrocytic anemia Unspecified deficiency anemia [facility] Diagnosis Pre-operative examination- Primary Preoperative examination, unspecified 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, not stated as uncontrolled, or unspecified Essential hypertension, benign Mixed hyperlipidemia Status post total bilateral knee replacement Type 2 diabetes mellitus without complication, with no history of insulin use (HCC) Obesity, Class III, BMI 40-49.9 (morbid obesity) (HCC) Morbid obesity Former smoker Personal history of tobacco use, presenting hazards to health Gastroesophageal reflux disease, unspecified whether esophagitis present Endometrial cancer (HCC)- Primary Malignant neoplasm of corpus uteri, except isthmus Carcinomatosis (HCC) Disseminated malignant neoplasm Macrocytic anemia Unspecified deficiency anemia [facility] Diagnosis Pre-operative examination- Primary Preoperative examination, unspecified 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, not stated as uncontrolled, or unspecified Essential hypertension, benign Mixed hyperlipidemia Status post total bilateral knee replacement Type 2 diabetes mellitus without complication, with no history of insulin use (HCC) Obesity, Class III, BMI 40-49.9 (morbid obesity) (HCC) Morbid obesity Former smoker Personal history of tobacco use, presenting hazards to health Gastroesophageal reflux disease, unspecified whether esophagitis present 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 Endometrial cancer (HCC) Malignant neoplasm of corpus uteri, except isthmus Carcinomatosis (HCC) Disseminated malignant neoplasm Macrocytic anemia Unspecified deficiency anemia [facility]* Diagnosis Acute pain of right shoulder Bone anomaly Acquired musculoskeletal deformity of unspecified site Pre-operative examination- Primary Preoperative examination, unspecified 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, not stated as uncontrolled, or unspecified Essential hypertension, benign Mixed hyperlipidemia Status post total bilateral knee replacement Type 2 diabetes mellitus without complication, with no history of insulin use (HCC) Obesity, Class III, BMI 40-49.9 (morbid obesity) (HCC) Morbid obesity Former smoker Personal history of tobacco use, presenting hazards to health Gastroesophageal reflux disease, unspecified whether esophagitis present [facility]* Diagnosis Pre-operative examination- Primary Preoperative examination, unspecified 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, not stated as uncontrolled, or unspecified Essential hypertension, benign Mixed hyperlipidemia Status post total bilateral knee replacement Type 2 diabetes mellitus without complication, with no history of insulin use (HCC) Obesity, Class III, BMI 40-49.9 (morbid obesity) (HCC) Morbid obesity Former smoker Personal history of tobacco use, presenting hazards to health Gastroesophageal reflux disease, unspecified whether esophagitis present Endometrial cancer (HCC) Malignant neoplasm of corpus uteri, except isthmus Carcinomatosis (HCC) Disseminated malignant neoplasm Macrocytic anemia Unspecified deficiency anemia [facility] Diagnosis Pre-operative examination- Primary Preoperative examination, unspecified 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, not stated as uncontrolled, or unspecified Essential hypertension, benign Mixed hyperlipidemia Status post total bilateral knee replacement Type 2 diabetes mellitus without complication, with no history of insulin use (HCC) Obesity, Class III, BMI 40-49.9 (morbid obesity) (HCC) Morbid obesity Former smoker Personal history of tobacco use, presenting hazards to health Gastroesophageal reflux disease, unspecified whether esophagitis present Endometrial cancer (HCC)- Primary Malignant neoplasm of corpus uteri, except isthmus Carcinomatosis (HCC) Disseminated malignant neoplasm [facility]* Diagnosis Pre-operative examination- Primary Preoperative examination, unspecified 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, not stated as uncontrolled, or unspecified Essential hypertension, benign Mixed hyperlipidemia Status post total bilateral knee replacement Type 2 diabetes mellitus without complication, with no history of insulin use (HCC) Obesity, Class III, BMI 40-49.9 (morbid obesity) (HCC) Morbid obesity Former smoker Personal history of tobacco use, presenting hazards to health Gastroesophageal reflux disease, unspecified whether esophagitis present Endometrial cancer (HCC)- Primary Malignant neoplasm of corpus uteri, except isthmus Carcinomatosis (HCC) Disseminated malignant neoplasm Macrocytic anemia Unspecified deficiency anemia Secondary malignancy of iliac lymph nodes (HCC) documented in this encounter [facility] note* Diagnosis Pre-operative examination- Primary Preoperative examination, unspecified 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, not stated as uncontrolled, or unspecified Essential hypertension, benign Mixed hyperlipidemia Status post total bilateral knee replacement Type 2 diabetes mellitus without complication, with no history of insulin use (HCC) Obesity, Class III, BMI 40-49.9 (morbid obesity) (HCC) Morbid obesity Former smoker Personal history of tobacco use, presenting hazards to health Gastroesophageal reflux disease, unspecified whether esophagitis present 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 Moderate COPD (chronic obstructive pulmonary disease) (HCC) Chronic airway obstruction, not elsewhere classified Chronic hypoxemic respiratory failure (HCC) Chronic respiratory failure Morbid obesity (HCC) Morbid obesity documented in this encounter [facility] note* Diagnosis Pre-operative examination- Primary Preoperative examination, unspecified 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, not stated as uncontrolled, or unspecified Essential hypertension, benign Mixed hyperlipidemia Status post total bilateral knee replacement Type 2 diabetes mellitus without complication, with no history of insulin use (HCC) Obesity, Class III, BMI 40-49.9 (morbid obesity) (HCC) Morbid obesity Former smoker Personal history of tobacco use, presenting hazards to health Gastroesophageal reflux disease, unspecified whether esophagitis present Endometrial cancer (HCC)- Primary Malignant neoplasm of corpus uteri, except isthmus Carcinomatosis (HCC) Disseminated malignant neoplasm Macrocytic anemia Unspecified deficiency anemia [facility] Diagnosis Pre-operative examination- Primary Preoperative examination, unspecified 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, not stated as uncontrolled, or unspecified Essential hypertension, benign Mixed hyperlipidemia Status post total bilateral knee replacement Type 2 diabetes mellitus without complication, with no history of insulin use (HCC) Obesity, Class III, BMI 40-49.9 (morbid obesity) (HCC) Morbid obesity Former smoker Personal history of tobacco use, presenting hazards to health Gastroesophageal reflux disease, unspecified whether esophagitis present Endometrial cancer (HCC)- Primary Malignant neoplasm of corpus uteri, except isthmus Carcinomatosis (HCC) Disseminated malignant neoplasm Lung nodules Other nonspecific abnormal finding of lung field [facility]* Diagnosis Pre-operative examination- Primary Preoperative examination, unspecified 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, not stated as uncontrolled, or unspecified Essential hypertension, benign Mixed hyperlipidemia Status post total bilateral knee replacement Type 2 diabetes mellitus without complication, with no history of insulin use (HCC) Obesity, Class III, BMI 40-49.9 (morbid obesity) (HCC) Morbid obesity Former smoker Personal history of tobacco use, presenting hazards to health Gastroesophageal reflux disease, unspecified whether esophagitis present Endometrial cancer (HCC)- Primary Malignant neoplasm of corpus uteri, except isthmus [facility]* Diagnosis Pre-operative examination- Primary Preoperative examination, unspecified 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, not stated as uncontrolled, or unspecified Essential hypertension, benign Mixed hyperlipidemia Status post total bilateral knee replacement Type 2 diabetes mellitus without complication, with no history of insulin use (HCC) Obesity, Class III, BMI 40-49.9 (morbid obesity) (HCC) Morbid obesity Former smoker Personal history of tobacco use, presenting hazards to health Gastroesophageal reflux disease, unspecified whether esophagitis present Endometrial cancer (HCC)- Primary Malignant neoplasm of corpus uteri, except isthmus Carcinomatosis (HCC) Disseminated malignant neoplasm Macrocytic anemia Unspecified deficiency anemia Secondary malignancy of iliac lymph nodes (HCC) [facility]* Diagnosis Pre-operative examination- Primary Preoperative examination, unspecified 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, not stated as uncontrolled, or unspecified Essential hypertension, benign Mixed hyperlipidemia Status post total bilateral knee replacement Type 2 diabetes mellitus without complication, with no history of insulin use (HCC) Obesity, Class III, BMI 40-49.9 (morbid obesity) (HCC) Morbid obesity Former smoker Personal history of tobacco use, presenting hazards to health Gastroesophageal reflux disease, unspecified whether esophagitis present Encounter for care related to vascular access port- Primary Fitting and adjustment of vascular catheter [facility]* Diagnosis Pre-operative examination- Primary Preoperative examination, unspecified 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, not stated as uncontrolled, or unspecified Essential hypertension, benign Mixed hyperlipidemia Status post total bilateral knee replacement Type 2 diabetes mellitus without complication, with no history of insulin use (HCC) Obesity, Class III, BMI 40-49.9 (morbid obesity) (HCC) Morbid obesity Former smoker Personal history of tobacco use, presenting hazards to health Gastroesophageal reflux disease, unspecified whether esophagitis present Endometrial cancer (HCC) Malignant neoplasm of corpus uteri, except isthmus Carcinomatosis (HCC) Disseminated malignant neoplasm Lung nodules Other nonspecific abnormal finding of lung field [facility]* Diagnosis Pre-operative examination- Primary Preoperative examination, unspecified 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, not stated as uncontrolled, or unspecified Essential hypertension, benign Mixed hyperlipidemia Status post total bilateral knee replacement Type 2 diabetes mellitus without complication, with no history of insulin use (HCC) Obesity, Class III, BMI 40-49.9 (morbid obesity) (HCC) Morbid obesity Former smoker Personal history of tobacco use, presenting hazards to health Gastroesophageal reflux disease, unspecified whether esophagitis present Endometrial cancer (HCC) Malignant neoplasm of corpus uteri, except isthmus Carcinomatosis (HCC) Disseminated malignant neoplasm Macrocytic anemia Unspecified deficiency anemia [facility]* Diagnosis Pre-operative examination- Primary Preoperative examination, unspecified 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, not stated as uncontrolled, or unspecified Essential hypertension, benign Mixed hyperlipidemia Status post total bilateral knee replacement Type 2 diabetes mellitus without complication, with no history of insulin use (HCC) Obesity, Class III, BMI 40-49.9 (morbid obesity) (HCC) Morbid obesity Former smoker Personal history of tobacco use, presenting hazards to health Gastroesophageal reflux disease, unspecified whether esophagitis present Endometrial cancer (HCC)- Primary Malignant neoplasm of corpus uteri, except isthmus Carcinomatosis (HCC) Disseminated malignant neoplasm Hypomagnesemia Disorders of magnesium metabolism Thrombocytopenia (HCC) Thrombocytopenia, unspecified [facility]* Diagnosis Pre-operative examination- Primary Preoperative examination, unspecified 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, not stated as uncontrolled, or unspecified Essential hypertension, benign Mixed hyperlipidemia Status post total bilateral knee replacement Type 2 diabetes mellitus without complication, with no history of insulin use (HCC) Obesity, Class III, BMI 40-49.9 (morbid obesity) (HCC) Morbid obesity Former smoker Personal history of tobacco use, presenting hazards to health Gastroesophageal reflux disease, unspecified whether esophagitis present Hypomagnesemia- Primary Disorders of magnesium metabolism Endometrial cancer (HCC) Malignant neoplasm of corpus uteri, except isthmus Carcinomatosis (HCC) Disseminated malignant neoplasm Thrombocytopenia (HCC) Thrombocytopenia, unspecified [facility]* Diagnosis Pre-operative examination- Primary Preoperative examination, unspecified 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, not stated as uncontrolled, or unspecified Essential hypertension, benign Mixed hyperlipidemia Status post total bilateral knee replacement Type 2 diabetes mellitus without complication, with no history of insulin use (HCC) Obesity, Class III, BMI 40-49.9 (morbid obesity) (HCC) Morbid obesity Former smoker Personal history of tobacco use, presenting hazards to health Gastroesophageal reflux disease, unspecified whether esophagitis present 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 Secondary malignant neoplasm of lung [facility]* Diagnosis Pre-operative examination- Primary Preoperative examination, unspecified 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, not stated as uncontrolled, or unspecified Essential hypertension, benign Mixed hyperlipidemia Status post total bilateral knee replacement Type 2 diabetes mellitus without complication, with no history of insulin use (HCC) Obesity, Class III, BMI 40-49.9 (morbid obesity) (HCC) Morbid obesity Former smoker Personal history of tobacco use, presenting hazards to health Gastroesophageal reflux disease, unspecified whether esophagitis present 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 Secondary malignant neoplasm of lung [facility]* Diagnosis Pre-operative examination- Primary Preoperative examination, unspecified 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, not stated as uncontrolled, or unspecified Essential hypertension, benign Mixed hyperlipidemia Status post total bilateral knee replacement Type 2 diabetes mellitus without complication, with no history of insulin use (HCC) Obesity, Class III, BMI 40-49.9 (morbid obesity) (HCC) Morbid obesity Former smoker Personal history of tobacco use, presenting hazards to health Gastroesophageal reflux disease, unspecified whether esophagitis present 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 Secondary malignant neoplasm of lung [facility]* Diagnosis Pre-operative examination- Primary Preoperative examination, unspecified 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, not stated as uncontrolled, or unspecified Essential hypertension, benign Mixed hyperlipidemia Status post total bilateral knee replacement Type 2 diabetes mellitus without complication, with no history of insulin use (HCC) Obesity, Class III, BMI 40-49.9 (morbid obesity) (HCC) Morbid obesity Former smoker Personal history of tobacco use, presenting hazards to health Gastroesophageal reflux disease, unspecified whether esophagitis present Pancytopenia (HCC)- Primary Other pancytopenia Endometrial cancer (HCC) Malignant neoplasm of corpus uteri, except isthmus Malaise and fatigue Other malaise and fatigue documented in this encounter [facility] note* Diagnosis Pre-operative examination- Primary Preoperative examination, unspecified 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, not stated as uncontrolled, or unspecified Essential hypertension, benign Mixed hyperlipidemia Status post total bilateral knee replacement Type 2 diabetes mellitus without complication, with no history of insulin use (HCC) Obesity, Class III, BMI 40-49.9 (morbid obesity) (HCC) Morbid obesity Former smoker Personal history of tobacco use, presenting hazards to health Gastroesophageal reflux disease, unspecified whether esophagitis present 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 Secondary malignant neoplasm of lung documented in this encounter [facility] note* Diagnosis Pre-operative examination- Primary Preoperative examination, unspecified 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, not stated as uncontrolled, or unspecified Essential hypertension, benign Mixed hyperlipidemia Status post total bilateral knee replacement Type 2 diabetes mellitus without complication, with no history of insulin use (HCC) Obesity, Class III, BMI 40-49.9 (morbid obesity) (HCC) Morbid obesity Former smoker Personal history of tobacco use, presenting hazards to health Gastroesophageal reflux disease, unspecified whether esophagitis present 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, not stated as uncontrolled, or unspecified [facility]* Diagnosis Pre-operative examination- Primary Preoperative examination, unspecified 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, not stated as uncontrolled, or unspecified Essential hypertension, benign Mixed hyperlipidemia Status post total bilateral knee replacement Type 2 diabetes mellitus without complication, with no history of insulin use (HCC) Obesity, Class III, BMI 40-49.9 (morbid obesity) (HCC) Morbid obesity Former smoker Personal history of tobacco use, presenting hazards to health Gastroesophageal reflux disease, unspecified whether esophagitis present Endometrial cancer (HCC) Malignant neoplasm of corpus uteri, except isthmus Carcinomatosis (HCC) Disseminated malignant neoplasm Macrocytic anemia Unspecified deficiency anemia documented in this encounter [facility] note* Diagnosis Pre-operative examination- Primary Preoperative examination, unspecified 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, not stated as uncontrolled, or unspecified Essential hypertension, benign Mixed hyperlipidemia Status post total bilateral knee replacement Type 2 diabetes mellitus without complication, with no history of insulin use (HCC) Obesity, Class III, BMI 40-49.9 (morbid obesity) (HCC) Morbid obesity Former smoker Personal history of tobacco use, presenting hazards to health Gastroesophageal reflux disease, unspecified whether esophagitis present Endometrial cancer (HCC)- Primary Malignant neoplasm of corpus uteri, except isthmus Carcinomatosis (HCC) Disseminated malignant neoplasm documented in this encounter [facility] note* Diagnosis Pre-operative examination- Primary Preoperative examination, unspecified 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, not stated as uncontrolled, or unspecified Essential hypertension, benign Mixed hyperlipidemia Status post total bilateral knee replacement Type 2 diabetes mellitus without complication, with no history of insulin use (HCC) Obesity, Class III, BMI 40-49.9 (morbid obesity) (HCC) Morbid obesity Former smoker Personal history of tobacco use, presenting hazards to health Gastroesophageal reflux disease, unspecified whether esophagitis present 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 Endometrial cancer (HCC) Malignant neoplasm of corpus uteri, except isthmus Carcinomatosis (HCC) Disseminated malignant neoplasm Macrocytic anemia Unspecified deficiency anemia Hypomagnesemia Disorders of magnesium metabolism documented in this encounter [facility] note* Diagnosis Pre-operative examination- Primary Preoperative examination, unspecified 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, not stated as uncontrolled, or unspecified Essential hypertension, benign Mixed hyperlipidemia Status post total bilateral knee replacement Type 2 diabetes mellitus without complication, with no history of insulin use (HCC) Obesity, Class III, BMI 40-49.9 (morbid obesity) (HCC) Morbid obesity Former smoker Personal history of tobacco use, presenting hazards to health Gastroesophageal reflux disease, unspecified whether esophagitis present Radiotherapy follow-up- Primary Radiotherapy follow-up examination Secondary malignant neoplasm of right lung (HCC) Secondary malignant neoplasm of lung documented in this encounter [facility] note* Diagnosis Pre-operative examination- Primary Preoperative examination, unspecified 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, not stated as uncontrolled, or unspecified Essential hypertension, benign Mixed hyperlipidemia Status post total bilateral knee replacement Type 2 diabetes mellitus without complication, with no history of insulin use (HCC) Obesity, Class III, BMI 40-49.9 (morbid obesity) (HCC) Morbid obesity Former smoker Personal history of tobacco use, presenting hazards to health Gastroesophageal reflux disease, unspecified whether esophagitis present 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 documented in this encounter [facility] note* Diagnosis Pre-operative examination- Primary Preoperative examination, unspecified 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, not stated as uncontrolled, or unspecified Essential hypertension, benign Mixed hyperlipidemia Status post total bilateral knee replacement Type 2 diabetes mellitus without complication, with no history of insulin use (HCC) Obesity, Class III, BMI 40-49.9 (morbid obesity) (HCC) Morbid obesity Former smoker Personal history of tobacco use, presenting hazards to health Gastroesophageal reflux disease, unspecified whether esophagitis present Endometrial cancer (HCC) Malignant neoplasm of corpus uteri, except isthmus Carcinomatosis (HCC) Disseminated malignant neoplasm documented in this encounter [facility] note* Diagnosis Pre-operative examination- Primary Preoperative examination, unspecified 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, not stated as uncontrolled, or unspecified Essential hypertension, benign Mixed hyperlipidemia Status post total bilateral knee replacement Type 2 diabetes mellitus without complication, with no history of insulin use (HCC) Obesity, Class III, BMI 40-49.9 (morbid obesity) (HCC) Morbid obesity Former smoker Personal history of tobacco use, presenting hazards to health Gastroesophageal reflux disease, unspecified whether esophagitis present Endometrial cancer (HCC) Malignant neoplasm of corpus uteri, except isthmus Carcinomatosis (HCC) Disseminated malignant neoplasm Macrocytic anemia Unspecified deficiency anemia [facility]* Diagnosis Pre-operative examination- Primary Preoperative examination, unspecified 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, not stated as uncontrolled, or unspecified Essential hypertension, benign Mixed hyperlipidemia Status post total bilateral knee replacement Type 2 diabetes mellitus without complication, with no history of insulin use (HCC) Obesity, Class III, BMI 40-49.9 (morbid obesity) (HCC) Morbid obesity Former smoker Personal history of tobacco use, presenting hazards to health Gastroesophageal reflux disease, unspecified whether esophagitis present Endometrial cancer (HCC)- Primary Malignant neoplasm of corpus uteri, except isthmus Carcinomatosis (HCC) Disseminated malignant neoplasm RUQ pain Abdominal pain, right upper quadrant Drug-induced cardiomyopathy (HCC) Secondary cardiomyopathy, unspecified documented in this encounter [facility] note* Diagnosis Pre-operative examination- Primary Preoperative examination, unspecified 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, not stated as uncontrolled, or unspecified Essential hypertension, benign Mixed hyperlipidemia Status post total bilateral knee replacement Type 2 diabetes mellitus without complication, with no history of insulin use (HCC) Obesity, Class III, BMI 40-49.9 (morbid obesity) (HCC) Morbid obesity Former smoker Personal history of tobacco use, presenting hazards to health Gastroesophageal reflux disease, unspecified whether esophagitis present Chronic obstructive pulmonary disease, unspecified COPD type (HCC)- Primary documented in this encounter [facility] note* Diagnosis Pre-operative examination- Primary Preoperative examination, unspecified 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, not stated as uncontrolled, or unspecified Essential hypertension, benign Mixed hyperlipidemia Status post total bilateral knee replacement Type 2 diabetes mellitus without complication, with no history of insulin use (HCC) Obesity, Class III, BMI 40-49.9 (morbid obesity) (HCC) Morbid obesity Former smoker Personal history of tobacco use, presenting hazards to health Gastroesophageal reflux disease, unspecified whether esophagitis present Moderate COPD (chronic obstructive pulmonary disease) (HCC)- Primary Chronic airway obstruction, not elsewhere classified 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) Chronic hypoxemic respiratory failure (HCC) Chronic respiratory failure [facility]* Diagnosis Pre-operative examination- Primary Preoperative examination, unspecified 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, not stated as uncontrolled, or unspecified Essential hypertension, benign Mixed hyperlipidemia Status post total bilateral knee replacement Type 2 diabetes mellitus without complication, with no history of insulin use (HCC) Obesity, Class III, BMI 40-49.9 (morbid obesity) (HCC) Morbid obesity Former smoker Personal history of tobacco use, presenting hazards to health Gastroesophageal reflux disease, unspecified whether esophagitis present Encounter for education- Primary Counseling NOS [facility]* Diagnosis Pre-operative examination- Primary Preoperative examination, unspecified 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, not stated as uncontrolled, or unspecified Essential hypertension, benign Mixed hyperlipidemia Status post total bilateral knee replacement Type 2 diabetes mellitus without complication, with no history of insulin use (HCC) Obesity, Class III, BMI 40-49.9 (morbid obesity) (HCC) Morbid obesity Former smoker Personal history of tobacco use, presenting hazards to health Gastroesophageal reflux disease, unspecified whether esophagitis present 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 Endometrial cancer (HCC) Malignant neoplasm of corpus uteri, except isthmus Carcinomatosis (HCC) Disseminated malignant neoplasm Macrocytic anemia Unspecified deficiency anemia documented in this encounter [facility] note* Diagnosis Pre-operative examination- Primary Preoperative examination, unspecified 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, not stated as uncontrolled, or unspecified Essential hypertension, benign Mixed hyperlipidemia Status post total bilateral knee replacement Type 2 diabetes mellitus without complication, with no history of insulin use (HCC) Obesity, Class III, BMI 40-49.9 (morbid obesity) (HCC) Morbid obesity Former smoker Personal history of tobacco use, presenting hazards to health Gastroesophageal reflux disease, unspecified whether esophagitis present Endometrial cancer (HCC)- Primary Malignant neoplasm of corpus uteri, except isthmus Carcinomatosis (HCC) Disseminated malignant neoplasm Lung nodules Other nonspecific abnormal finding of lung field documented in this encounter [facility] note* Diagnosis Pre-operative examination- Primary Preoperative examination, unspecified 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, not stated as uncontrolled, or unspecified Essential hypertension, benign Mixed hyperlipidemia Status post total bilateral knee replacement Type 2 diabetes mellitus without complication, with no history of insulin use (HCC) Obesity, Class III, BMI 40-49.9 (morbid obesity) (HCC) Morbid obesity Former smoker Personal history of tobacco use, presenting hazards to health Gastroesophageal reflux disease, unspecified whether esophagitis present Chronic obstructive pulmonary disease, unspecified COPD type (HCC)- Primary Chronic hypoxemic respiratory failure (HCC) Chronic respiratory failure Obesity hypoventilation syndrome (HCC) Obesity hypoventilation syndrome Endometrial cancer (HCC) Malignant neoplasm of corpus uteri, except isthmus Morbid obesity (HCC) Morbid obesity [facility]* Diagnosis Pre-operative examination- Primary Preoperative examination, unspecified 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, not stated as uncontrolled, or unspecified Essential hypertension, benign Mixed hyperlipidemia Status post total bilateral knee replacement Type 2 diabetes mellitus without complication, with no history of insulin use (HCC) Obesity, Class III, BMI 40-49.9 (morbid obesity) (HCC) Morbid obesity Former smoker Personal history of tobacco use, presenting hazards to health Gastroesophageal reflux disease, unspecified whether esophagitis present Hospital discharge follow-up- Primary Other follow-up examination Type 2 diabetes mellitus without complication, with no history of insulin use (HCC) Nausea Nausea alone RSV (respiratory syncytial virus pneumonia) Pneumonia due to respiratory syncytial virus History of UTI Personal history of urinary (tract) infection Endometrial cancer (HCC) Malignant neoplasm of corpus uteri, except isthmus documented in this encounter [facility] note* Diagnosis Pre-operative examination- Primary Preoperative examination, unspecified 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, not stated as uncontrolled, or unspecified Essential hypertension, benign Mixed hyperlipidemia Status post total bilateral knee replacement Type 2 diabetes mellitus without complication, with no history of insulin use (HCC) Obesity, Class III, BMI 40-49.9 (morbid obesity) (HCC) Morbid obesity Former smoker Personal history of tobacco use, presenting hazards to health Gastroesophageal reflux disease, unspecified whether esophagitis present Nausea Nausea alone documented in this encounter [facility] note* Diagnosis Pre-operative examination- Primary Preoperative examination, unspecified 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, not stated as uncontrolled, or unspecified Essential hypertension, benign Mixed hyperlipidemia Status post total bilateral knee replacement Type 2 diabetes mellitus without complication, with no history of insulin use (HCC) Obesity, Class III, BMI 40-49.9 (morbid obesity) (HCC) Morbid obesity Former smoker Personal history of tobacco use, presenting hazards to health Gastroesophageal reflux disease, unspecified whether esophagitis present 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, not stated as uncontrolled, or unspecified [facility]* Diagnosis Pre-operative examination- Primary Preoperative examination, unspecified 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, not stated as uncontrolled, or unspecified Essential hypertension, benign Mixed hyperlipidemia Status post total bilateral knee replacement Type 2 diabetes mellitus without complication, with no history of insulin use (HCC) Obesity, Class III, BMI 40-49.9 (morbid obesity) Morbid obesity Former smoker Personal history of tobacco use, presenting hazards to health Gastroesophageal reflux disease, unspecified whether esophagitis present Endometrial cancer (HCC) Malignant neoplasm of corpus uteri, except isthmus Carcinomatosis (HCC) Disseminated malignant neoplasm Macrocytic anemia Unspecified deficiency anemia documented in this encounter [facility] note* Diagnosis Pre-operative examination- Primary Preoperative examination, unspecified 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, not stated as uncontrolled, or unspecified Essential hypertension, benign Mixed hyperlipidemia Status post total bilateral knee replacement Type 2 diabetes mellitus without complication, with no history of insulin use (HCC) Obesity, Class III, BMI 40-49.9 (morbid obesity) Morbid obesity Former smoker Personal history of tobacco use, presenting hazards to health Gastroesophageal reflux disease, unspecified whether esophagitis present Endometrial cancer (HCC) Malignant neoplasm of corpus uteri, except isthmus Carcinomatosis (HCC) Disseminated malignant neoplasm Lung nodules Other nonspecific abnormal finding of lung field documented in this encounter [facility] note* Diagnosis Pre-operative examination- Primary Preoperative examination, unspecified 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, not stated as uncontrolled, or unspecified Essential hypertension, benign Mixed hyperlipidemia Status post total bilateral knee replacement Type 2 diabetes mellitus without complication, with no history of insulin use (HCC) Obesity, Class III, BMI 40-49.9 (morbid obesity) Morbid obesity Former smoker Personal history of tobacco use, presenting hazards to health Gastroesophageal reflux disease, unspecified whether esophagitis present Endometrial cancer (HCC)- Primary Malignant neoplasm of corpus uteri, except isthmus Carcinomatosis (HCC) Disseminated malignant neoplasm 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 [facility]* Diagnosis Pre-operative examination- Primary Preoperative examination, unspecified 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, not stated as uncontrolled, or unspecified Essential hypertension, benign Mixed hyperlipidemia Status post total bilateral knee replacement Type 2 diabetes mellitus without complication, with no history of insulin use (HCC) Obesity, Class III, BMI 40-49.9 (morbid obesity) Morbid obesity Former smoker Personal history of tobacco use, presenting hazards to health Gastroesophageal reflux disease, unspecified whether esophagitis present 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, not stated as uncontrolled, or unspecified documented in this encounter [facility] note* Diagnosis Pre-operative examination- Primary Preoperative examination, unspecified 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, not stated as uncontrolled, or unspecified Essential hypertension, benign Mixed hyperlipidemia Status post total bilateral knee replacement Type 2 diabetes mellitus without complication, with no history of insulin use (HCC) Obesity, Class III, BMI 40-49.9 (morbid obesity) Morbid obesity Former smoker Personal history of tobacco use, presenting hazards to health Gastroesophageal reflux disease, unspecified whether esophagitis present Endometrial cancer (HCC)- Primary Malignant neoplasm of corpus uteri, except isthmus Carcinomatosis (HCC) Disseminated malignant neoplasm Macrocytic anemia Unspecified deficiency anemia Secondary malignancy of iliac lymph nodes (HCC) documented [facility]* Diagnosis Pre-operative examination- Primary Preoperative examination, unspecified 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, not stated as uncontrolled, or unspecified Essential hypertension, benign Mixed hyperlipidemia Status post total bilateral knee replacement Type 2 diabetes mellitus without complication, with no history of insulin use (HCC) Obesity, Class III, BMI 40-49.9 (morbid obesity) Morbid obesity Former smoker Personal history of tobacco use, presenting hazards to health Gastroesophageal reflux disease, unspecified whether esophagitis present Carcinomatosis (HCC)- Primary Disseminated malignant neoplasm Endometrial cancer (HCC) Malignant neoplasm of corpus uteri, except isthmus Secondary malignancy of iliac lymph nodes (HCC) documented in this encounter [facility] note* Diagnosis Pre-operative examination- Primary Preoperative examination, unspecified 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, not stated as uncontrolled, or unspecified Essential hypertension, benign Mixed hyperlipidemia Status post total bilateral knee replacement Type 2 diabetes mellitus without complication, with no history of insulin use (HCC) Obesity, Class III, BMI 40-49.9 (morbid obesity) Morbid obesity Former smoker Personal history of tobacco use, presenting hazards to health Gastroesophageal reflux disease, unspecified whether esophagitis present Endometrial cancer (HCC)- Primary Malignant neoplasm of corpus uteri, except isthmus Carcinomatosis (HCC) Disseminated malignant neoplasm [facility]* Diagnosis Pre-operative examination- Primary Preoperative examination, unspecified 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, not stated as uncontrolled, or unspecified Essential hypertension, benign Mixed hyperlipidemia Status post total bilateral knee replacement Type 2 diabetes mellitus without complication, with no history of insulin use (HCC) Obesity, Class III, BMI 40-49.9 (morbid obesity) Morbid obesity Former smoker Personal history of tobacco use, presenting hazards to health Gastroesophageal reflux disease, unspecified whether esophagitis present Endometrial cancer (HCC) Malignant neoplasm of corpus uteri, except isthmus Carcinomatosis (HCC) Disseminated malignant neoplasm Macrocytic anemia Unspecified deficiency anemia documented in this encounter [facility] note* Diagnosis Pre-operative examination- Primary Preoperative examination, unspecified 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, not stated as uncontrolled, or unspecified Essential hypertension, benign Mixed hyperlipidemia Status post total bilateral knee replacement Type 2 diabetes mellitus without complication, with no history of insulin use (HCC) Obesity, Class III, BMI 40-49.9 (morbid obesity) (HCC) Morbid obesity Former smoker Personal history of tobacco use, presenting hazards to health Gastroesophageal reflux disease, unspecified whether esophagitis present Endometrial cancer (HCC)- Primary Malignant neoplasm of corpus uteri, except isthmus Carcinomatosis (HCC) Disseminated malignant neoplasm Macrocytic anemia Unspecified deficiency anemia Type 2 diabetes mellitus without complication, with no history of insulin use (HCC) documented in this encounter [facility] note* Diagnosis Pre-operative examination- Primary Preoperative examination, unspecified 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, not stated as uncontrolled, or unspecified Essential hypertension, benign Mixed hyperlipidemia Status post total bilateral knee replacement Type 2 diabetes mellitus without complication, with no history of insulin use (HCC) Obesity, Class III, BMI 40-49.9 (morbid obesity) (HCC) Morbid obesity Former smoker Personal history of tobacco use, presenting hazards to health Gastroesophageal reflux disease, unspecified whether esophagitis present Endometrial cancer (HCC)- Primary Malignant neoplasm of corpus uteri, except isthmus Carcinomatosis (HCC) Disseminated malignant neoplasm 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) Hypervolemia, unspecified hypervolemia type Primary hypertension Unspecified essential hypertension [facility]* Diagnosis Pre-operative examination- Primary Preoperative examination, unspecified 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, not stated as uncontrolled, or unspecified Essential hypertension, benign Mixed hyperlipidemia Status post total bilateral knee replacement Type 2 diabetes mellitus without complication, with no history of insulin use (HCC) Obesity, Class III, BMI 40-49.9 (morbid obesity) (HCC) Morbid obesity Former smoker Personal history of tobacco use, presenting hazards to health Gastroesophageal reflux disease, unspecified whether esophagitis present Endometrial cancer (HCC)- Primary Malignant neoplasm of corpus uteri, except isthmus Carcinomatosis (HCC) Disseminated malignant neoplasm Secondary malignancy of iliac lymph nodes (HCC) [facility]* Diagnosis Pre-operative examination- Primary Preoperative examination, unspecified 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, not stated as uncontrolled, or unspecified Essential hypertension, benign Mixed hyperlipidemia Status post total bilateral knee replacement Type 2 diabetes mellitus without complication, with no history of insulin use (HCC) Obesity, Class III, BMI 40-49.9 (morbid obesity) (HCC) Morbid obesity Former smoker Personal history of tobacco use, presenting hazards to health Gastroesophageal reflux disease, unspecified whether esophagitis present Endometrial cancer (HCC) Malignant neoplasm of corpus uteri, except isthmus Carcinomatosis (HCC) Disseminated malignant neoplasm Macrocytic anemia Unspecified deficiency anemia [facility]* Diagnosis Pre-operative examination- Primary Preoperative examination, unspecified 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, not stated as uncontrolled, or unspecified Essential hypertension, benign Mixed hyperlipidemia Status post total bilateral knee replacement Type 2 diabetes mellitus without complication, with no history of insulin use (HCC) Obesity, Class III, BMI 40-49.9 (morbid obesity) (HCC) Morbid obesity Former smoker Personal history of tobacco use, presenting hazards to health Gastroesophageal reflux disease, unspecified whether esophagitis present Carcinomatosis (HCC)- Primary Disseminated malignant neoplasm Endometrial cancer (HCC) Malignant neoplasm of corpus uteri, except isthmus Secondary malignancy of iliac lymph nodes (HCC) [facility]* Diagnosis Pre-operative examination- Primary Preoperative examination, unspecified 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, not stated as uncontrolled, or unspecified Essential hypertension, benign Mixed hyperlipidemia Status post total bilateral knee replacement Type 2 diabetes mellitus without complication, with no history of insulin use (HCC) Obesity, Class III, BMI 40-49.9 (morbid obesity) (HCC) Morbid obesity Former smoker Personal history of tobacco use, presenting hazards to health Gastroesophageal reflux disease, unspecified whether esophagitis present Endometrial cancer (HCC)- Primary Malignant neoplasm of corpus uteri, except isthmus Carcinomatosis (HCC) Disseminated malignant neoplasm documented in this encounter [facility] note* Diagnosis Pre-operative examination- Primary Preoperative examination, unspecified 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, not stated as uncontrolled, or unspecified Essential hypertension, benign Mixed hyperlipidemia Status post total bilateral knee replacement Type 2 diabetes mellitus without complication, with no history of insulin use (HCC) Obesity, Class III, BMI 40-49.9 (morbid obesity) (HCC) Morbid obesity Former smoker Personal history of tobacco use, presenting hazards to health Gastroesophageal reflux disease, unspecified whether esophagitis present Hyperlipidemia, unspecified hyperlipidemia type documented in this encounter [facility] note* Diagnosis Pre-operative examination- Primary Preoperative examination, unspecified 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, not stated as uncontrolled, or unspecified Essential hypertension, benign Mixed hyperlipidemia Status post total bilateral knee replacement Type 2 diabetes mellitus without complication, with no history of insulin use (HCC) Obesity, Class III, BMI 40-49.9 (morbid obesity) (HCC) Morbid obesity Former smoker Personal history of tobacco use, presenting hazards to health Gastroesophageal reflux disease, unspecified whether esophagitis present Endometrial cancer (HCC) Malignant neoplasm of corpus uteri, except isthmus Carcinomatosis (HCC) Disseminated malignant neoplasm Macrocytic anemia Unspecified deficiency anemia documented in this encounter [facility] note* Diagnosis Pre-operative examination- Primary Preoperative examination, unspecified 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, not stated as uncontrolled, or unspecified Essential hypertension, benign Mixed hyperlipidemia Status post total bilateral knee replacement Type 2 diabetes mellitus without complication, with no history of insulin use (HCC) Obesity, Class III, BMI 40-49.9 (morbid obesity) (HCC) Morbid obesity Former smoker Personal history of tobacco use, presenting hazards to health Gastroesophageal reflux disease, unspecified whether esophagitis present Endometrial cancer (HCC)- Primary Malignant neoplasm of corpus uteri, except isthmus Carcinomatosis (HCC) Disseminated malignant neoplasm 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) Primary hypertension Unspecified essential hypertension [facility]* Diagnosis Pre-operative examination- Primary Preoperative examination, unspecified 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, not stated as uncontrolled, or unspecified Essential hypertension, benign Mixed hyperlipidemia Status post total bilateral knee replacement Type 2 diabetes mellitus without complication, with no history of insulin use (HCC) Obesity, Class III, BMI 40-49.9 (morbid obesity) (HCC) Morbid obesity Former smoker Personal history of tobacco use, presenting hazards to health Gastroesophageal reflux disease, unspecified whether esophagitis present Carcinomatosis (HCC)- Primary Disseminated malignant neoplasm Endometrial cancer (HCC) Malignant neoplasm of corpus uteri, except isthmus Secondary malignancy of iliac lymph nodes (HCC) [facility]* Diagnosis Pre-operative examination- Primary Preoperative examination, unspecified 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, not stated as uncontrolled, or unspecified Essential hypertension, benign Mixed hyperlipidemia Status post total bilateral knee replacement Type 2 diabetes mellitus without complication, with no history of insulin use (HCC) Obesity, Class III, BMI 40-49.9 (morbid obesity) (HCC) Morbid obesity Former smoker Personal history of tobacco use, presenting hazards to health Gastroesophageal reflux disease, unspecified whether esophagitis present Type 2 diabetes mellitus without complication, with no history of insulin use (HCC) [facility] March 10, 2023 6:20pm Note Date/Time March 10, 2023 5 :06pm [facility] Medical Records Department [address] [place] [address] H&P Exam - Hospitalist 03/10/23 1706 MR#: [id number] Acct: [id number] Name: PRICILA HOOKER Rep #:[id number] : 1945 77 From: Renata Culver MD PCP: Dr. Vinh Van MD Status:AD M IN Location: [facility] [id number] HPI - General General Date of Admission: 03/10/23 Date of Service: 03/10/23 Chief Complaint: Hypotension, fatigue, malaise, lightheadedness, dizziness. HPI Narrative The patient is a 77 y/o F w/ PMHx: CKD stage III unclear subtype, Chronic anemia, CAD, HTN, HLD, GERD, Stage IIIc Endometrial CA, Nonischemic Cardiomyopathy, Chronic neuropathy, GERD, Morbid obesity, Former tobacco use [facility]resents [facility] the [facility] 03/10/23 with history of low blood pressure noticed on day of presentation with recent appointment with a carrier associate with a also noted lower blood pressure of 76/58 with lightheadedness for the last several days worse with positional changes especially sitting and trying to set up although she does state it is worsened with recent diagnosis of cardiomyopathy associate with chemotherapy and radiation with recent chills but no fevers and given onset of the symptoms prompted ED evaluation. She denies any marked urinary symptoms despite her current presentation. She does report poor oral intake. Since ED interventions she notes feeling improved. Workup in the ED included T96, heart rate 72, BP initially 76/58 with most recent repeat 79/60-->following IVFs most recent repeat 133/72, respiratory rate 14, 96% on room air, CBC with WC 8.6, hemoglobin 11.2, MCV 97, platelet 194 without marked shift, BMP with BUN/creatinine 32/1.59, glucose 253, lactic acid 3.5, troponin 10, urinalysis with cloudy appearing urine, specific remedy 1.015, protein 100, glucose 1000, occult blood 50, negative nitrite, leukocyte Estrace 500 with greater than 100 urine RBCs with no bacteria, urine culture pending per ED, blood culture x 2 pending per ED, chest x-ray with no acute cardiopulmonary findings. In the ED patient ministered 1,500 cc (avoided 30 cc/kg secondary to cardiomyopathy history) as well as IV Rocephin. Most recent urine culture noted upon microbiology review 01/24/23 with Klebsiella with resistance to ampicillin and cefazolin otherwise sensitive. [facility] Medical History Benign neoplasm of colon Chest pain Cholecystitis CKD (chronic kidney disease) stage 3, GFR 30-59 ml/min Coronary artery disease Diabetes Dyslipidemia Endometrial cancer Endometrial cancer, FIGO stage IIIC GERD (gastroesophageal reflux disease) History of cancer of uterus Hypercholesteremia Hypertension Hypomagnesemia Neuropathy Nonischemic cardiomyopathy Obesity Pancytopenia Home Medications metformin 500 mg tablet 2 tab PO BID DIABETES #120 tabs 05/06/20 [Rx Last Taken 03/10/23] amitriptyline 50 mg tablet 50 mg PO QHS DEPRESSION 12/23/22 [History Last Taken 03/09/23] atorvastatin 40 mg tablet 40 mg PO QHS CHOLESTEROL 12/23/22 [History Last Taken 03/09/23] dulaglutide 3 mg/0.5 mL subcutaneous pen injector (Trulicity) 3 mg subcut TU DIABETES 12/23/22 [History Last Taken 03/09/23] gabapentin 100 mg capsule 100 mg PO TID NERVE PAIN 12/23/22 [History Last Taken 03/10/23] empagliflozin 10 mg tablet (Jardiance) 10 mg PO DAILY DIABETES #30 tabs 12/29/22 [Rx Last Taken 03/10/23] magnesium chloride 71.5 mg (magnesium chloride) tablet,delayed release (Slow- Mag) 71.5 mg PO BID SUPPLEMENT 12/29/22 [History Last Taken 03/10/23] ondansetron HCl 8 mg tablet 8 mg PO Q12H PRN NAUSEA 12/29/22 [History Last Taken Unknown] aspirin 81 mg tablet,delayed release (Adult Low Dose Aspirin) 81 mg PO DAILY HEART HEALTH 01/24/23 [History Last Taken 03/10/23] acetaminophen 500 mg tablet (Acetaminophen Extra Strength) 500 mg PO Q6H PRN PAIN 03/10/23 [History Last Taken Unknown] glimepiride 4 mg tablet 4 mg PO BID DIABETES 03/10/23 [History Last Taken 03/10/23] silver sulfadiazine 1 % topical cream 1 applic topical DAILY PRN BURN 03/10/23 [History Last Taken 03/10/23] Allergy/AdvReac Type Severity Reaction Status Date / Time No Known Allergies Allergy Verified 03/10/23 14:35 Family History Father Myocardial infarction Mother Heart disease irregular heart rate Colon cancer Surgical History History of total left knee replacement (TKR) (~01/2011) History of total right knee replacement (TKR) (~05/11/11) Hx laparoscopic cholecystectomy Hx of cataract surgery Hx of hysterectomy, total Social History household members: none Smoking Status: Former smoker how long ago did patient quit smokin alcohol intake: never substance use type: does not use ROS ROS Narrative Admission Review of Systems: CONSTITUTIONAL: No weight loss, fever, chills, + weakness or fatigue. HEENT: + Lightheadedness, dizziness. Eyes: No visual loss, blurred vision, double vision or yellow sclerae. Ears, Nose, Throat: No hearing loss, sneezing, congestion, runny nose or sore throat. SKIN: No rash or itching, lesions, wounds. CARDIOVASCULAR: + Lightheadedness, dizziness. No chest pain, chest pressure or chest discomfort, palpitations, edema, orthopnea, syncopal events. RESPIRATORY: No shortness of breath, cough or sputum, wheezing, hemoptysis. GASTROINTESTINAL: + anorexia. No nausea, vomiting or diarrhea, abdominal pain, melena, BRBPR. GENITOURINARY: No dysuria, frequency, urgency or retention. NEUROLOGICAL:+ Lightheadedness, dizziness. No headache, syncope, paralysis, ataxia, numbness or tingling in the extremities, focal weakness, change in bowelor bladder control, seizure. MUSCULOSKELETAL: + muscle, back pain, joint pain or stiffness. HEMATOLOGIC: + anemia. No bleeding or bruising. LYMPHATICS: No enlarged nodes. No history of splenectomy. PSYCHIATRIC: No history of depression or anxiety. ENDOCRINOLOGIC: No reports of sweating, cold or heat intolerance. No polyuria orpolydipsia. ALLERGIES: No history of asthma, hives, eczema or rhinitis. Vital Signs Vital Signs Vital Signs: 03/10/23 14:36 03/10/23 16:02 Temperature 96 F L Temperature Source Temporal Pulse Rate 80 Respiratory Rate 14 Respiratory Effort Normal Non-Labored Respiratory Pattern Normal Blood Pressure 79/60 L Blood Pressure Mean 66 Pulse Ox 96 Oxygen Delivery Method Room Air Weight Weight: 271 lb Body Mass Index (BMI) 42.4 Physical Exam Narrative Physical Examination: General: Awake, alert, oriented x 3 and cooperative, seated upright in the ED bed, fatigued but notes feeling significantly improved since initial ED arrival. Skin: Normal color, normal turgor, no icterus, no cyanosis except occasional staged ecchymoses. HEENT: AT/NC, EOMI, PERRLA, dry MM, no carotid bruits or JVD noted. Lungs: Diminished, greater bases, proper effort, no rales, ronchi or wheezing. Heart: Regular rate and rhythm; no gallop, rub audible. Abdomen: Soft, morbidly obese, NTTP, ND, mildly hyperactive BS, no appreciated HSM however habitus makes evaluation difficult. Extremities: No cyanosis, no clubbing, mild peripheral ankle not markedly pitting edema. Neurological: Patient awake, alert, oriented as noted, cognitive function intact; pupils equally reactive to light and accommodation, cranial nerves grossly normal, moving all 4 extremities, no focal deficits, strength moderatelyto severely globally decreased secondary to acute presentation and underlying comorbidities. Psychiatric: Affect appears flat, fatigued but notes feeling somewhat improved, no acute evidence of depressive or anxiety feelings. Results Lab / Micro Data 03/10/23 15:03 03/10/23 15:03 Labs: Laboratory Results - last 24 hr 03/10/23 15:03: WBC 8.6, RBC 3.64 L, Hgb 11.2 L, Hct 35.3 L, MCV 97.0, MCH 30.8,MCHC 31.7 L, RDW Std Deviation 51.4 H, RDW Coeff of [place] 14.4, Plt Count 194, MPV10.6, Immature Gran % (Auto) 0.300, Neut % (Auto) 69.8, Lymph % (Auto) 15.4 L, [place] % (Auto) 7.3, Eos % (Auto) 6.5 H, Baso % (Auto) 0.7, Absolute Neuts (auto) 6.0, Absolute Lymphs (auto) 1.33, Nucleated RBC % 0, Sodium 136, Potassium 4.0, Chloride 103, Carbon Dioxide 25.0, Anion Gap 8, BUN 32 H, Creatinine 1.59 H, Estim Creat Clear Calc 40.29, Est GFR (MDRD) Af Amer 41 L, Est GFR (MDRD) Non-Af 33 L, BUN/Creatinine Ratio 20.1 H, Glucose 253 H, Calcium 9.5, Troponin I High Sens 10 03/10/23 15:45: Lactic Acid 3.5 H* 03/10/23 15:55: Urine Color Yellow, Urine Clarity Cloudy, Urine pH 6.0, Ur Specific [place] 1.015, Urine Protein 100 H, Urine Glucose (UA) 1000 H, Urine Ketones Negative, Urine Occult Blood 50 H, Urine Nitrite Negative, Urine Bilirubin 1 H, Urine Urobilinogen Normal, Ur Leukocyte Esterase 500 H, Urine RBC0 SEEN, Urine WBC >100 SEEN, Ur Squamous Epith Cells 0 SEEN, Urine Bacteria 0 SEEN, Urine Mucus 0 SEEN Imagaing Radiology Impression Chest X-Ray 03/10/23 15:54 IMPRESSION: No acute cardiopulmonary abnormality. Electronically Signed: Keith Pandey MD at 16:19 EST Reading Location ID and State: [address] [place] [address] Tel , Service support , Assessment & Plan Assessment/Plan (1) Urinary tract infection: (2) Hypotension (arterial): PLAN: Plan The patient is a 77 y/o F w/ PMHx: CKD stage III unclear subtype, Chronic anemia, CAD, HTN, HLD, GERD, Stage IIIc Endometrial CA, Nonischemic Cardiomyopathy, Chronic neuropathy, GERD, Morbid obesity, Former tobacco use whopresents to the [facility] ED on 03/10/23 with history of low blood pressure noticed on day of presentation with recent appointment with a carrier associate with a also noted lower blood pressure of 76/58 with lightheadedness for the last several days worse with positional changes especially sitting and trying to set up although she does state it is worsened with recent diagnosis of cardiomyopathy associate with chemotherapy and radiation with recent chills but no fevers and given onset of the symptoms prompted ED evaluation. She denies any marked urinary symptoms despite her current presentation. #1. Acute Complicate Urinary Tract Infection with transient Hypotension, Lacticacidosis: Will admit to PCU, UA upon ED evaluation remarkable, pending UCx, continue judicious IVFs, monitor I/Os, continue IV Rocephin w/ transition as able pending sensitivities and speciation. Bld cx x 2 obtained in the ED. PT/OT/CM consultation for discharge planning. Fall precautions. #2. Stage IIIc Endometrial CA: Patient status post previous hysterectomy on adjuvant therapy with carboplatin, paclitaxel and pembrolizumab. As noted patient unfortunately with cardiomyopathy associated with her cancer agents. Encouraged continued outpatient follow-up and assessment with her oncology team [facility]. Mag and Phos requested. #3. Chronic Kidney Disease Stage III, unclear subtype with possible acute renalinsufficiency component but unclear as need further trending: Admission BUN/Cr 31/1.59, baseline renal function appears primarily 1.1-1.6 but again this was possibly during an acute phase with most recent 01/26/2023 creatinine 1.18 this could be a component of acute renal insufficiency, repeat BMP in AM. #4. Nonischemic cardiomyopathy: Will continue aspirin, statin, holding patient home Coreg given hypotension, add back once appropriate. Judiciously hydrating given her hypotension. Most recent echocardiogram noted 12/24/2022 with mildly dilated LV, LV systolic function 45?5%, LV diastolic function not visualized, RVnormal size, RV systolic function normal, no significant valvular abnormality, visualized aorta dilated with maximal dimension 4.1 cm obtained from [facility]. Patient did have stress testing 12/28/2022 which was negative for inducible ischemia with only noted abnormal EF. #5. Nonobstructive CAD: We will continue patient home aspirin, statin, holding patient Coreg given presentation as noted, add back once appropriate. #6. Diabetes mellitus type II with chronic neuropathy: Hold oral home regimen, ADA diet, accu checks w/ ISS. #7. Hypertension: Given presentation holding all hypertensive regimen given lowblood pressure, add back once clinically appropriate. #8. Hyperlipidemia: We will continue patient on statin therapy. #9. Morbid Obesity: Weight loss and lifestyle changes encouraged. #10. Chronic anemia, normocytic: Admission hemoglobin 11.2, MCV 97, baseline hemoglobin previously 01/25/2023 8.4, likely related with underlying cancer and cancer treatments, unclear if transfusions in the interim, will trend CBC. #11. Former tobacco use: Encourage continued tobacco cessation. #12. DVT prophylaxis: Heparin. #13. CODE status: Patient DEONTE is her Sister Milagro and living will is currently in place. Discussed CODE status at length including difference betweenFULL code, DNR-CCA and DNR-CC status. Following discussions about the differences in these status, requested Full Code status. Advanced Care Planning Face to Face Time: 16 minutes. Charges/Coding Visit Charges Inpatient E&M: 75750 Init Hosp L3 Procedures Hospitalists Procedures: 06305 Advncd Care Plan 30 Min 03/10/23 1820 <Electronically signed by Reanta Culver MD> Cosigner Signature (if applicable): CC: Dr. Renata Culver MD; Dr. Vinh Van MD~ Signed [facility] Work Phone: Reason for referral (narrative)* Outpatient Procedure (Routine) - Pending Review Specialty Diagnoses / Procedures Referred By Contpili t Referred To Contact [facility] Diagnoses Special screening for malignant neoplasms, colon Procedures COLONOSCOPY SCREENING COLONOSCOPY FLX DX W/COLLJ SPEC WHEN Billie Alamo APRN.DIRECTOR MARKETING [address] [place] [address] [facility] [place] [address] [place], [place] [id number] Referral ID Status Reason Start Date Expiration Date Visits Requested Visits Authorized [id number] Pending Review Auto-Generat ed Referral 06/06/2021 06/06/2022 1 1 [facility] for referral (narrative)* Outpatient Procedure (Routine) - Closed Specialty Diagnoses / Procedures Referred By Bryan valencia Referred To Contact [facility] Diagnoses Special screening for malignant neoplasms, colon Procedures COLONOSCOPY SCREENING COLONOSCOPY FLX DX W/COLLJ SPEC WHEN PFBillie Billy APRN.CNP [address] [place] [address] [facility] [address] [address] Referral ID Status Reason Start Date Expiration Date V isits Requested Visits Authorized [id number] Closed Auto-Generate d Referral 06/06/2021 06/06/2022 1 1 [facility] for referral (narrative)* Diagnostic Procedure Only (Urgent) - Pending Review Specialty Diagnoses / Procedures Referred By Contac t Referred To Contact [facility] Diagnoses Vaginal bleeding Procedures US FEMALE PELVIS TRANSVAG US TRANSVAGINAL Billie Hwang APRN.DIRECTOR MARKETING [address] [place] [address] [facility] Referral ID Status Reason Start Date Expiration Date Visits Requested Visits Authorized [id number] Pending Review Auto-Generat ed Referral 04/09/2022 05/09/2023 1 1 * Diagnostic Procedure Only (Urgent) - Pending Review Specialty Diagnoses / Procedures Referred By Contac t Referred To Contact [facility] Diagnoses Vaginal bleeding Procedures US FEMALE PELVIS TRANSABD LTD US PELVIC NONOBSTETRIC IMAGE DCMTN LIMITED/F/U Billie Hwang APRN.DIRECTOR MARKETING [address] [place] [address] [facility] Referral ID Status Reason Start Date Expiration Date Visits Requested Visits Authorized [id number] Pending Review Auto-Generat ed Referral 04/09/2022 05/09/2023 1 1 * Diagnostic Procedure Only (Urgent) - Pending Review Specialty Diagnoses / Procedures Referred By Contac t Referred To Contact [facility] Diagnoses Flank pain Procedures US KIDNEY/BLADDER US RETROPERITONEAL REAL TIME W/IMAGE COMPLETE Billie Hwnag APRN.DIRECTOR MARKETING [address] [place] [address] [facility] Referral ID Status Reason Start Date Expiration Date Visits Requested Visits Authorized [id number] Pending Review Auto-Generat ed Referral 04/09/2022 05/09/2023 1 1 [facility] for referral (narrative)* Diagnostic Procedure Only (Urgent) - Pending Review Specialty Diagnoses / Procedures Referred By Contac t Referred To Contact [facility] Diagnoses Adnexal cyst Vaginal bleeding Abnormal CT of the abdomen Procedures US FEMALE PELVIS TRANSVAG US TRANSVAGINAL Billie Hwang APRN.DIRECTOR MARKETING [address] [place] [address] [facility] Referral ID Status Reason Start Date Expiration Date Visits Requested Visits Authorized [id number] Pending Review Auto-Generat ed Referral 06/17/2022 07/17/2023 1 1 * Diagnostic Procedure Only (Urgent) - Authorized Specialty Diagnoses / Procedures Referred By Contac t Referred To Contact [facility] Diagnoses Adnexal cyst Vaginal bleeding Abnormal CT of the abdomen Procedures US FEMALE PELVIS TRANSABD LTD US PELVIC NONOBSTETRIC IMAGE DCMTN LIMITED/F/U Billie Hwang APRN.DIRECTOR MARKETING [address] [place] [address] [facility] Referral ID Status Reason Start Date Expiration Date Visits Requested Visits Authorized [id number] Authorized Auto-Generat ed Referral 06/17/2022 07/17/2023 1 1 * Consult, Test, Treat (Routine) - Pending Review Specialty Diagnoses / Procedures Referred By Contac t Referred To Contact Diagnoses Adnexal cyst Vaginal bleeding Abnormal CT of the abdomen Procedures CONSULT TO MINIMALLY INVASIVE GYNECOLOGIC SURGERY OFFICE/OUTPATIENT NEW HIGH MDM 60-74 MINUTES Billie Hwang APRN.DIRECTOR MARKETING [address] [place] [address] Referral ID Status Reason Start Date Expiration Date Visits Requested Visits Authorized [id number] Pending Review PCP Requested Referral Auto-Generate d Referral 06/17/2022 06/17/2023 1 1 [facility] for referral (narrative)* Outpatient Procedure (Routine) - Pending Review Specialty Diagnoses / Procedures Referred By Contac t Referred To Contact [facility] Diagnoses Endometrial cancer (HCC) Procedures ECG COMPLETE ECG ROUTINE ECG W/LEAST 12 LDS W/I&R Nora Branham DO [address] [place] [address] [facility] [place] [address] [place] [address] Referral ID Status Reason Start Date Expiration Date Visits Requested Visits Authorized [id number] Pending Review Auto-Generat ed Referral 3 12/23/2023 1 1 T [facility] for referral (narrative)* Diagnostic Procedure Only (Urgent) - Authorized Specialty Diagnoses / Procedures Referred By Contac t Referred To Contact [facility] Diagnoses Abnormal electrocardiogram Type 2 diabetes mellitus without complication, with no history of insulin use (HCC) Endometrial cancer (HCC) Encounter for monitoring cardiotoxic drug therapy Procedures NM CARDIAC PERF STRESS/PHARM MYOCARDIAL SPECT MULTIPLE STUDIES Nora Branham DO [address] [facility] [address] [facility] [address] [phone] Referral ID Status Reason Start Date Expiration Date Visits Requested Visits Authorized [id number] Authorized Auto-Generat ed Referral 3 01/22/2024 1 1 T [facility] for referral (narrative)* Diagnostic Procedure Only (Urgent) - Closed Specialty Diagnoses / Procedures Referred By Contac t Referred To Contact [facility] Diagnoses Abnormal electrocardiogram Type 2 diabetes mellitus without complication, with no history of insulin use (HCC) Endometrial cancer (HCC) Encounter for monitoring cardiotoxic drug therapy Procedures NM CARDIAC PERF STRESS/PHARM MYOCARDIAL SPECT MULTIPLE STUDIES Nora Branham DO [address] [place] [address] [facility] [address] [phone] Referral ID Status Reason Start Date Expiration Date V isits Requested Visits Authorized [id number] Closed Auto-Generate d Referral 12/23/2022 01/22/2024 1 1 [facility] for referral (narrative)* Diagnostic Procedure Only (Urgent) - Closed Specialty Diagnoses / Procedures Referred By Contac t Referred To Contact [facility] Diagnoses Adnexal cyst Vaginal bleeding Abnormal CT of the abdomen Procedures US FEMALE PELVIS TRANSVAG US TRANSVAGINAL Billie Hwang APRN.DIRECTOR MARKETING [address] [place] [address] [place] [address] Referral ID Status Reason Start Date Expiration Date V isits Requested Visits Authorized [id number] Closed Auto-Generate d Referral 06/17/2022 07/17/2023 1 1 * Diagnostic Procedure Only (Urgent) - Closed Specialty Diagnoses / Procedures Referred By Contac t Referred To Contact [facility] Diagnoses Adnexal cyst Vaginal bleeding Abnormal CT of the abdomen Procedures US FEMALE PELVIS TRANSABD LTD US PELVIC NONOBSTETRIC IMAGE DCMTN LIMITED/F/U Billie Hwang APRN.DIRECTOR MARKETING [address] [place] [address] [place] [address] Referral ID Status Reason Start Date Expiration Date V isits Requested Visits Authorized [id number] Closed Auto-Generate d Referral 06/17/2022 07/17/2023 1 1 [facility] for referral (narrative)* Diagnostic Procedure Only (Urgent) - Closed Specialty Diagnoses / Procedures Referred By Contac t Referred To Contact [facility] Diagnoses Flank pain Procedures US KIDNEY/BLADDER US RETROPERITONEAL REAL TIME W/IMAGE COMPLETE Billie Hwang APRN.DIRECTOR MARKETING [address] [place] [address] [place] [address] Referral ID Status Reason Start Date Expiration Date V isits Requested Visits Authorized [id number] Closed Auto-Generate d Referral 04/09/2022 05/09/2023 1 1 [facility] for referral (narrative)* Outpatient Procedure (Routine) - Closed Specialty Diagnoses / Procedures Referred By Contac t Referred To Contact [facility] Diagnoses Dysphagia, unspecified type Procedures EGD DIAGNOSTIC ESOPHAGOGASTRODUODENOSC OPY TRANSORAL DIAGNOSTIC Hood Thompson PA-C [address] [place] [address] [facility] [place] [address] [place] [address] Referral ID Status Reason Start Date Expiration Date V isits Requested Visits Authorized [id number] Closed Auto-Generate d Referral 11/05/2022 11/06/2023 1 1 [facility] for referral (narrative)* Outpatient Procedure (Routine) - Authorized Specialty Diagnoses / Procedures Referred By Contac t Referred To Contact [facility] [place] Diagnoses Cardiomyopathy, nonischemic (HCC) Procedures ECHO ECHO TTHRC R-T 2D W/WOM-MODE COMPL SPEC&COLR D Farshad Marie MD [address] [place] [address] [address] Referral ID Status Reason Start Date Expiration Date Visits Requested Visits Authorized [id number] Authorized Auto-Generat ed Referral 02/02/2023 02/02/2024 1 1 * Outpatient Procedure (Routine) - Authorized Specialty Diagnoses / Procedures Referred By Contac t Referred To Contact [facility] Diagnoses Cardiomyopathy, nonischemic (HCC) Procedures ECG COMPLETE ECG ROUTINE ECG W/LEAST 12 LDS W/I&R Farshad Marie MD [address] [place] [address] [address] Referral ID Status Reason Start Date Expiration Date Visits Requested Visits Authorized [id number] Authorized Auto-Generat ed Referral 02/02/2023 02/02/2024 1 1 [facility] for referral (narrative)* Outpatient Procedure (Routine) - Pending Review Specialty Diagnoses / Procedures Referred By Contac t Referred To Contact [facility] Diagnoses Type 2 diabetes mellitus without complication, with no history of insulin use (HCC) Procedures ECG COMPLETE ECG ROUTINE ECG W/LEAST 12 LDS W/I&R Nora Branham DO [address] [place] [address] [facility] [place] [address] [place] [address] Referral ID Status Reason Start Date Expiration Date Visits Requested Visits Authorized [id number] Pending Review Auto-Generat ed Referral 3 02/18/2024 1 1 [facility] for referral (narrative)* Diagnostic Procedure Only (Routine) - Closed Specialty Diagnoses / Procedures Referred By Contac t Referred To Contact [facility] Diagnoses Endometrial cancer (HCC) Secondary malignancy of iliac lymph nodes (HCC) Left hip pain Procedures XR HIP GENERAL 3V PELV/AP/LAT LEFT RADEX HIP UNILATERAL WITH PELVIS 2-3 VIEWS Nora Branham DO [address] [place] [address] [place] [address] Referral ID Status Reason Start Date Expiration Date V isits Requested Visits Authorized [id number] Closed Auto-Generate d Referral 08/24/2023 09/22/2024 1 1 [facility] for referral (narrative)* Outpatient Procedure (Routine) - Pending Review Specialty Diagnoses / Procedures Referred By Contac t Referred To Contact [facility] Diagnoses SOB (shortness of breath) Procedures SPIROMETRY WITH DILATOR IF OBSTRUCTED BRNCDILAT RSPSE SPMTRY PRE&POST-BRNCDILAT Pamela Mcdonald MD [address] [place] [address] [address] Referral ID Status Reason Start Date Expiration Date Visits Requested Visits Authorized [id number] Pending Review Auto-Generat ed Referral 09/01/2023 09/30/2024 1 1 [facility] for referral (narrative)* Outpatient Procedure (Routine) - Pending Review Specialty Diagnoses / Procedures Referred By Contac t Referred To Contact [facility] Diagnoses Lung nodules Procedures LUNG VOLUMES Go Araujo MD [address] [place] [address] [address] Referral ID Status Reason Start Date Expiration Date Visits Requested Visits Authorized [id number] Pending Review Auto-Generat ed Referral 09/15/2023 10/14/2024 1 1 * Outpatient Procedure (Routine) - Authorized Specialty Diagnoses / Procedures Referred By Contac t Referred To Contact [facility] [place] Diagnoses Lung nodules Procedures LUNG DIFFUSION CAPACITY (DLCO) DIFFUSING CAPACITY Go Araujo MD [address] [place] [address] [place] [address] Referral ID Status Reason Start Date Expiration Date Visits Requested Visits Authorized [id number] Authorized Auto-Generat ed Referral 09/15/2023 10/14/2024 1 1 * Diagnostic Procedure Only (Routine) - Pending Review Specialty Diagnoses / Procedures Referred By Contac t Referred To Contact MOLECULAR & FUNCTIONAL IMAGING Diagnoses Lung nodules Procedures NM PET/CT SKULL-THIGH INITIAL PET IMAGING CT ATTENUATION SKULL BASE MID-THIGH Go Araujo MD [address] [place] [address] Molecular & Functional Imaging [address] [place] [address] Referral ID Status Reason Start Date Expiration Date Visits Requested Visits Authorized [id number] Pending Review Auto-Generat ed Referral 09/15/2023 10/14/2024 1 1 [facility] for referral (narrative)* Diagnostic Procedure Only (Routine) - Authorized Specialty Diagnoses / Procedures Referred By Contac t Referred To Contact MOLECULAR & FUNCTIONAL IMAGING Diagnoses Lung nodules Procedures NM PET/CT SKULL-THIGH INITIAL PET IMAGING CT ATTENUATION SKULL BASE MID-THIGH Go Araujo MD [address] [place] [address] Molecular & Functional Imaging [address] [place] [address] Referral ID Status Reason Start Date Expiration Date Visits Requested Visits Authorized [id number] Authorized Auto-Generat ed Referral 09/27/2023 12/25/2023 1 2 [facility] for referral (narrative)* Diagnostic Procedure Only (Routine) - Closed Specialty Diagnoses / Procedures Referred By Contac t Referred To Contact XR IMAGING Diagnoses Chronic right shoulder pain Procedures XR SHOULDER GENERAL 3V OR MORE AP/TRUE AP/OTHER RIGHT RADEX SHOULDER COMPLETE MINIMUM 2 VIEWS Billie Hwang, DUNG [address] [place] [address] X[facility] [place] [address] Referral ID Status Reason Start Date Expiration Date V isits Requested Visits Authorized [id number] Closed Auto-Generate d Referral 03/24/2023 04/22/2024 1 1 [facility] for referral (narrative)* Outpatient Procedure (Routine) - Authorized Specialty Diagnoses / Procedures Referred By Mandyac t Referred To Contact [facility] Diagnoses Chronic obstructive pulmonary disease, unspecified COPD type (HCC) Procedures SPIROMETRY WITH DILATOR IF OBSTRUCTED BRNCDILAT RSPSE SPMTRY PRE&POST-BRNCDILAT Pamela Mcdonald MD [address] [place] [address] Res[facility] [place] [address] [place] [address] Referral ID Status Reason Start Date Expiration Date Visits Requested Visits Authorized [id number] Authorized Auto-Generat ed Referral 01/19/2025 1 1 [facility] for visit Narrative* Outpatient Procedure (Routine) - Closed Specialty Diagnoses / Procedures Referred By Bryan t Referred To Contact [facility] Diagnoses Special screening for malignant neoplasms, colon Procedures COLONOSCOPY SCREENING COLONOSCOPY FLX DX W/COLLJ SPEC WHEN PFRMD Billie Hwang APRN.DIRECTOR MARKETING [address] [place] [address] [facility] [place] [id number] [place] [phone] Referral ID Status Reason Start Date Expiration Date V isits Requested Visits Authorized [id number] Closed Auto-Generate d Referral 06/06/2021 06/06/2022 1 1 [facility] for visit Narrative* Diagnostic Procedure Only (Urgent) - Closed Specialty Diagnoses / Procedures Referred By Bryan valencia Referred To Contact MOLECULAR & FUNCTIONAL IMAGING Diagnoses Abnormal electrocardiogram Type 2 diabetes mellitus without complication, with no history of insulin use (HCC) Endometrial cancer (HCC) Encounter for monitoring cardiotoxic drug therapy Procedures NM CARDIAC PERF STRESS/PHARM MYOCARDIAL SPECT MULTIPLE STUDIES Nora Branham DO [address] [facility] [place] [address] Molecular & Functional Imaging [address] [place] [phone] Referral ID Status Reason Start Date Expiration Date V isits Requested Visits Authorized [id number] Closed Auto-Generate d Referral 12/23/2022 01/22/2024 1 1 [facility] for visit Narrative* Outpatient Procedure (Routine) - Closed Specialty Diagnoses / Procedures Referred By Bryan t Referred To Contact [facility] Diagnoses Dysphagia, unspecified type Procedures EGD DIAGNOSTIC ESOPHAGOGASTRODUODENOSC OPY TRANSORAL DIAGNOSTIC Hood Thompson PA-C [address] [place] [address] [facility] [place] [address] [place] [address] Referral ID Status Reason Start Date Expiration Date V isits Requested Visits Authorized [id number] Closed Auto-Generate d Referral 11/05/2022 11/06/2023 1 1 [facility] for visit Narrative* Diagnostic Procedure Only (Routine) - Closed Specialty Diagnoses / Procedures Referred By Contac t Referred To Contact XR IMAGING Diagnoses Endometrial cancer (HCC) Secondary malignancy of iliac lymph nodes (HCC) Left hip pain Procedures XR HIP GENERAL 3V PELV/AP/LAT LEFT RADEX HIP UNILATERAL WITH PELVIS 2-3 VIEWS Nora Branham, DO [address] [place] [address] [place] [address] Referral ID Status Reason Start Date Expiration Date V isits Requested Visits Authorized [id number] Closed Auto-Generate d Referral 08/24/2023 09/22/2024 1 1 [facility] for visit Narrative* Diagnostic Procedure Only (Routine) - Authorized Specialty Diagnoses / Procedures Referred By Mandyac t Referred To Contact MOLECULAR & FUNCTIONAL IMAGING Diagnoses Lung nodules Procedures NM PET/CT SKULL-THIGH INITIAL PET IMAGING CT ATTENUATION SKULL BASE MID-THIGH Go Araujo MD [address] [place] [address] Molecular & Functional Imaging [address] [place] [phone] Referral ID Status Reason Start Date Expiration Date Visits Requested Visits Authorized [id number] Authorized Auto-Generat ed Referral 09/27/2023 12/25/2023 1 2 [facility] for visit Narrative* Diagnostic Procedure Only (Routine) - Closed Specialty Diagnoses / Procedures Referred By Contac t Referred To Contact XR IMAGING Diagnoses Chronic right shoulder pain Procedures XR SHOULDER GENERAL 3V OR MORE AP/TRUE AP/OTHER RIGHT RADEX SHOULDER COMPLETE MINIMUM 2 VIEWS Billie Hwang APRN.DIRECTOR MARKETING [address] [place] [address] [place] [address] Referral ID Status Reason Start Date Expiration Date V isits Requested Visits Authorized [id number] Closed Auto-Generate d Referral 03/24/2023 04/22/2024 1 1 [facility] for visit Narrative* MRI/CT (Routine) - Closed Specialty Diagnoses / Procedures Referred By Contac t Referred To Contact CT IMAGING Diagnoses Endometrial cancer (HCC) Carcinomatosis (HCC) Procedures CT ABD/PEL W IVCON CT ABD & PELVIS W/CONTRAST Nora Branham, DO [address] [place] [address] Phone: tel: fax: [place] [address] Referral ID Status Reason Start Date Expiration Date V isits Requested Visits Authorized [id number] Closed Auto-Generate d Referral 03/15/2024 04/14/2025 1 1 [facility] for visit Narrative* MRI/CT (Routine) - Closed Specialty Diagnoses / Procedures Referred By Contac t Referred To Contact CT IMAGING Diagnoses Endometrial cancer (HCC) Carcinomatosis (HCC) Procedures CT ABD/PEL W IVCON CT ABD & PELVIS W/CONTRAST Nora Branham, DO [address] [place] [address] Phone: tel: fax: [place] [address] Referral ID Status Reason Start Date Expiration Date V isits Requested Visits Authorized [id number] Closed Auto-Generate d Referral 05/23/2024 06/22/2025 1 1 [facility] Advance Directives No Advanced Directives Records FoundDocuments on File Type Date Recorded 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 Advance Directive(s) 07/24/2022 7:12 AM Date Activated Date Inactivated Comments 08/30/2023 9:18 PM Question Answer Comments Full Code Order Discussed With: Patient Documents on File Type Date Recorded 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 Advance Directive(s) 11/05/2017 7:51 AM Advance Directive(s) 02/14/2016 3:19 PM Documents on File Type Date Recorded 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 Advance Directive(s) 11/05/2017 7:51 AM Advance Directive(s) 02/14/2016 3:19 PM Documents on File Type Date Recorded 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 Advance Directive(s) 07/24/2022 7:12 AM Advance Directive Response Recorded Date/ Time Name of Medical Power of Residential Property Consultant sisiter January 24, 2023 1:36pm Living Will Yes January 24, 023 1:36pm Power of Residential Property Consultant Yes January 24, 2023 1:36pm Advance Directive Response Recorded Date/ Time Name of Medical Power of Residential Property Consultant Milagro Barboza January 24, 2023 6:58pm Living Will Yes January 24, 023 6:58pm Power of Residential Property Consultant Yes January 24, 2023 6:58pm Advance Directive Response Recorded Date/ Time Name of Medical Power of Residential Property Consultant Milagro Barboza March 10, 2023 6:31pm Living Will Yes March 10 6:31pm Power of Residential Property Consultant Yes March 10, 2023 6:31pm Name of Medical Power of Residential Property Consultant Milagro Barboza January 24, 2023 6:58pm Advance Directive Response Recorded Date/ Time Name of Medical Power of Residential Property Consultant Milagro Barboza March 10, 2023 6:31pm Name of Medical Power of Residential Property Consultant . April 10, 2023 2:43pm Living Will Yes April 10 024 2:43pm Power of Residential Property Consultant Yes April 10, 2023 2:43pm Name of Medical Power of Residential Property Consultant Milagro Barboza January 24, 2023 6:58pm Advance Directive Response Recorded Date/ Time Name of Medical Power of Residential Property Consultant Milagro Barboza March 10, 2023 6:31pm Name of Medical Power of Residential Property Consultant . 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 Advance Directive(s) 05/01/2024 11:25 PM Advance Directive(s) 05/01/2024 11:24 PM Date Activated Date Inactivated Comments 05/02/2024 6:47 AM Question Answer Comments DNR Order Discussed With: Surrogate Decision Jani erPatient Date Activated Date Inactivated Comments 05/01/2024 11:13 PM 05/02/2024 5:55 AM Question Answer Comments DNR Order Discussed With: Surrogate Harii chivo [employer]-Approved DNR Identification Date Activated Date Inactivated Comments 08/30/2023 9:18 PM 09/02/2023 7:54 PM Question Answer Comments Full Code Order Discussed With: Patient Date Activated Date Inactivated Comments 05/02/2024 6:47 AM 05/09/2024 8:26 PM Documents on File Type Date Recorded 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 Advance Directive(s) 05/01/2024 11:25 PM Advance Directive(s) 05/01/2024 11:24 PM Date Activated Date Inactivated Comments 05/02/2024 6:47 AM 05/09/2024 8:26 PM Question Answer Comments DNR Order Discussed With: Surrogate Decision Jani erPatient Date Activated Date Inactivated Comments 05/01/2024 11:13 PM 05/02/2024 5:55 AM Question Answer Comments DNR Order Discussed With: Surrogate Harii chivo [employer]-Approved DNR Identification Date Activated Date Inactivated Comments 08/30/2023 9:18 PM 09/02/2023 7:54 PM Question Answer Comments Full Code Order Discussed With: Patient Medications Administered Section Inactive Administered Medications - up to 3 most recent administrations Medication Order MAR Action Action Date Dose Rate Site fentaNYL 50 mcg/mL 25-100 mcg injection (SUBLIMAZE) 25-100 mcg, INTRAVENOUS, DIRECTED, Starting on Wed12/02/21 at 0800, Until Wed12/02/21 at 1159, DOSING DIRECTED BY PHYSICIAN FOR PROCEDURAL SEDATION ONLY, Intraprocedure Given by LIP 12/02/2021 8:02 AM EDT 50 mcg lactated ringers iv infusion 30 mL/hr, INTRAVENOUS, CONTINUOUS, Starting on Wed12/02/21 at 0730, Until Wed12/02/21 at 0838, Preprocedure New Bag/Syringe/Bottle 12/02/2021 8:17 AM EDT 30 mL/hr 30 mL/hr New Bag/Syringe/Bottle 12/02/2021 7:15 AM EDT 30 mL/hr 3 0 mL/hr Hand, Right midazolam (PF) 1-5 mg injection (VERSED) 1-5 mg, INTRAVENOUS, DIRECTED, Starting on Wed12/02/21 at 0800, Until Wed12/02/21 at 1159, DOSING DIRECTED BY PHYSICIAN FOR PROCEDURAL SEDATION ONLY, Intraprocedure Given 12/02/2021 8:13 AM EDT 1 mg Given 12/02/2021 8:04 AM EDT 2 mg Given 12/02/2021 8:02 AM EDT 2 mg Inactive Administered Medications - up to 3 most recent administrations Medication Order MAR Action Action Date Dose Rate Site CARBOplatin 650 mg in NaCl 0.9% 340 mL (PARAPLATIN) 650 mg (rounded from 656.5 mg, Target AUC = 5), INTRAVENOUS, Administer over 30 Minutes, ONCE, 1 dose, On Myrna 09/03/22 at 1030, Approx Total Volume - Expires: 09/04/22 @ 1030 Hazardous Chemotherapy Drug: Use appropriate PPE. Antineoplastic Irritant. New Bag/Syringe/Bottle 09/03/2022 1:56 PM EDT 650 mg dexAMETHasone 20 mg in 0.9% NaCl 50 mL (DECADRON) 20 mg, INTRAVENOUS, Administer over 15 Minutes, ONCE, 1 dose, On Myrna 09/03/22 at 0930, Give prior to chemotherapy. Refrigerate. New Bag/Syringe/Bottle 09/03/2022 9:23 AM EDT 20 mg diphenhydrAMINE 50 mg injection (BENADRYL) 50 mg, INTRAVENOUS, ONCE, 1 dose, On Myrna 09/03/22 at 0930, Give prior to chemotherapy. Given 09/03/2022 9:30 AM EDT 50 mg famotidine 20 mg injection (PEPCID) 20 mg, INTRAVENOUS, ONCE, 1 dose, On Myrna 09/03/22 at 0930, Give prior to chemotherapy. REFRIGERATE Given 09/03/2022 9:22 AM EDT 20 mg hydrocortisone sodium succinate (PF) 100 mg injection (Solu-CORTEF) 100 mg, INTRAVENOUS, NEEDED, 1 dose, Starting on Myrna 09/03/22 at 0914, Until Myrna 09/03/22 at 1124, Administer per hypersensitivity/anaphylax is grading in nursing communication Given 09/03/2022 11:24 AM EDT 100 mg magnesium sulfate 6 g in NaCl 0.9% 100 mL 6 g, INTRAVENOUS, ONCE, 1 dose, On Myrna 09/03/22 at 1300, Magnesium 1.3 or less infuse 6gm Magnesium Sulfate IV over 3 hours. Magnesium Sulfate IV bolus will be infused at a rate of 1 gram/hr. The following care areas may administer a magnesium sulfate bolus at a rate of 2 grams/hr if necessary: 1) ICUs/PACU/ED 2) Adult Hematology/Oncology 3) Labor and Delivery 4) Cardiac Step Down 5) Headache Clinic The following care areas may administer a magnesium sulfate bolus at a rate of GREATER than 2 grams/hr if necessary: 1) Adult and Pediatric Asthma Exacerbations 2) Torsade de Pointes 3) Pediatric BMT and Hematology/Oncology 4) Eclampsia or Preeclampsia New Bag/Syringe/Bottle 09/03/2022 1:00 PM EDT 6 g magnesium sulfate in sterile water 4 g in 100 mL iv piggyback 4 g, INTRAVENOUS, at 25-50 mL/hr, Administer over 2-4 Hours, ONCE, 1 dose, On Myrna 09/03/22 at 1300, Magnesium 1.4 to 1.6 infuse 4gm Magnesium Sulfate IV over 2 hours. Magnesium Sulfate IV bolus will be infused at a rate of 1 gram/hr. The following care areas may administer a magnesium sulfate bolus at a rate of 2 grams/hr if necessary: 1) ICUs/PACU/ED 2) Adult Hematology/Oncology 3) Labor and Delivery 4) Cardiac Step Down 5) Headache Clinic The following care areas may administer a magnesium sulfate bolus at a rate of GREATER than 2 grams/hr if necessary: 1) Adult and Pediatric Asthma Exacerbations 2) Torsade de Pointes 3) Pediatric BMT and Hematology/Oncology 4) Eclampsia or Preeclampsia New Bag/Syringe/Bottle 09/03/2022 12:58 PM EDT 4 g 50 mL/hr magnesium sulfate iv piggyback in sterile water 2 g 50 mL 2 g, INTRAVENOUS, at 25-50 mL/hr, Administer over 1-2 Hours, ONCE, 1 dose, On Myrna 09/03/22 at 1300, Magnesium Sulfate IV bolus will be infused at a rate of 1 gram/hr. The following care areas may administer a magnesium sulfate bolus at a rate of 2 grams/hr if necessary: 1) ICUs/PACU/ED 2) Adult Hematology/Oncology 3) Labor and Delivery 4) Cardiac Step Down 5) Headache Clinic The following care areas may administer a magnesium sulfate bolus at a rate of GREATER than 2 grams/hr if necessary: 1) Adult and Pediatric Asthma Exacerbations 2) T[place]ade de Pointes 3) Pediatric BMT and Hematology/Oncology 4) Eclampsia or Preeclampsia New Bag/Syringe/Bottle 09/03/2022 2:44 PM EDT 2 g 50 mL/hr ondansetron (PF) 8 mg injection (ZOFRAN) 8 mg, INTRAVENOUS, ONCE, 1 dose, On [place] 09/03/22 at 0930, Administer 30 minutes prior to infusion. Given 09/03/2022 9:22 AM EDT 8 mg PACLitaxel 338.88 mg in NaCl 0.9% 596.48 mL (TAXOL) 338.88 mg (rounded from 338.85 mg = 135 mg/m2 2.51 m2 Treatment Plan BSA from Recorded weight), INTRAVENOUS, Administer over 3 Hours, ONCE, 1 dose, On Myrna 09/03/22 at 0930, Approx Total Volume - Expires: 09/04/22 @ 1525 Hazardous Chemotherapy Drug: Use appropriate PPE. Antineoplastic Irritant with Vesicant Potential. Administer with non-DEHP 0.2 micron filter and tubing. Restarted 09/03/2022 11:45 AM EDT New Bag/Syringe/Bottle 09/03/2022 10:00 AM EDT 338.88 mg Inactive Administered Medications - up to 3 most recent administrations Medication Order MAR Action Action Date Dose Rate Site CARBOplatin 650 mg in NaCl 0.9% 340 mL (PARAPLATIN) 650 mg (rounded from 656.5 mg, Target AUC = 5), INTRAVENOUS, Administer over 30 Minutes, ONCE, 1 dose, On Myrna 09/24/22 at 0830, exp 0900 09/25/22 (room temp) Hazardous Chemotherapy Drug: Use appropriate PPE. Antineoplastic Irritant. New Bag/Syringe/Bottle 09/24/2022 11:33 AM EDT 650 mg dexAMETHasone 20 mg in 0.9% NaCl 50 mL (DECADRON) 20 mg, INTRAVENOUS, Administer over 15 Minutes, ONCE, 1 dose, On Myrna 09/24/22 at 0830, Give prior to chemotherapy. Refrigerate. New Bag/Syringe/Bottle 09/24/2022 8:18 AM EDT 20 mg diphenhydrAMINE 50 mg injection (BENADRYL) 50 mg, INTRAVENOUS, ONCE, 1 dose, On Wed09/24/22 at 0830, Give prior to chemotherapy. Given 09/24/2022 8:16 AM EDT 50 mg famotidine 20 mg injection (PEPCID) 20 mg, INTRAVENOUS, ONCE, 1 dose, On Wed09/24/22 at 0830, Give prior to chemotherapy. REFRIGERATE Given 09/24/2022 8:14 AM EDT 20 mg ondansetron (PF) 8 mg injection (ZOFRAN) 8 mg, INTRAVENOUS, ONCE, 1 dose, On Wed09/24/22 at 0830, Administer 30 minutes prior to infusion. Given 09/24/2022 8:12 AM EDT 8 mg PACLitaxel 338.88 mg in NaCl 0.9% 596.48 mL (TAXOL) 338.88 mg (rounded from 338.85 mg = 135 mg/m2 2.51 m2 Treatment Plan BSA from Recorded weight), INTRAVENOUS, Administer over 3 Hours, ONCE, 1 dose, On Wed09/24/22 at 0830, exp 10/01/22 (refrigerated) Hazardous Chemotherapy Drug: Use appropriate PPE. Antineoplastic Irritant with Vesicant Potential. Administer with non-DEHP 0.2 micron filter and tubing. New Bag/Syringe/Bottle 09/24/2022 8:35 AM EDT 338.88 mg Inactive Administered Medications - up to 3 most recent administrations Medication Order MAR Action Action Date Dose Rate Site CARBOplatin 650 mg in NaCl 0.9% 340 mL (PARAPLATIN) 650 mg (rounded from 656.5 mg, Target AUC = 5), INTRAVENOUS, Administer over 30 Minutes, ONCE, 1 dose, On Wed10/14/22 at 0830, Approx Total Volume EXP: 10/15/22 1000 (Room temp) Hazardous Chemotherapy Drug: Use appropriate PPE. Antineoplastic Irritant. New Bag/Syringe/Bottle 10/14/2022 1:02 PM EDT 650 mg dexAMETHasone 20 mg in NaCl 0.9% 50 mL (DECADRON) 20 mg, INTRAVENOUS, Administer over 15 Minutes, ONCE, 1 dose, On Wed10/14/22 at 0830, Give prior to chemotherapy. Refrigerate. New Bag/Syringe/Bottle 10/14/2022 8:44 AM EDT 20 mg diphenhydrAMINE 50 mg injection (BENADRYL) 50 mg, INTRAVENOUS, ONCE, 1 dose, On Wed10/14/22 at 0830, Give prior to chemotherapy. Given 10/14/2022 8:43 AM EDT 50 mg famotidine 20 mg injection (PEPCID) 20 mg, INTRAVENOUS, ONCE, 1 dose, On Wed10/14/22 at 0830, Give prior to chemotherapy. REFRIGERATE Given 10/14/2022 8:43 AM EDT 20 mg magnesium sulfate in sterile water 4 g in 100 mL iv piggyback 4 g, INTRAVENOUS, at 50 mL/hr, Administer over 2 Hours, ONCE, 1 dose, On Wed10/14/22 at 0830, Magnesium 1.4 to 1.6 infuse 4gm Magnesium Sulfate IV over 2 hours. Magnesium Sulfate IV bolus will be infused at a rate of 1 gram/hr. The following care areas may administer a magnesium sulfate bolus at a rate of 2 grams/hr if necessary: 1) ICUs/PACU/ED 2) Adult Hematology/Oncology 3) Labor and Delivery 4) Cardiac Step Down 5) Headache Clinic The following care areas may administer a magnesium sulfate bolus at a rate of GREATER than 2 grams/hr if necessary: 1) Adult and Pediatric Asthma Exacerbations 2) Torsade de Pointes 3) Pediatric BMT and Hematology/Oncology 4) Eclampsia or Preeclampsia New Bag/Syringe/Bottle 10/14/2022 9:55 AM EDT 4 g 50 mL/hr magnesium sulfate iv piggyback in sterile water 2 g 50 mL 2 g, INTRAVENOUS, at 50 mL/hr, Administer over 1 Hours, ONCE, 1 dose, On Wed10/14/22 at 0830, Magnesium Sulfate IV bolus will be infused at a rate of 1 gram/hr. The following care areas may administer a magnesium sulfate bolus at a rate of 2 grams/hr if necessary: 1) ICUs/PACU/ED 2) Adult Hematology/Oncology 3) Labor and Delivery 4) Cardiac Step Down 5) Headache Clinic The following care areas may administer a magnesium sulfate bolus at a rate of GREATER than 2 grams/hr if necessary: 1) Adult and Pediatric Asthma Exacerbations 2) Torsade de Pointes 3) Pediatric BMT and Hematology/Oncology 4) Eclampsia or Preeclampsia New Bag/Syringe/Bottle 10/14/2022 11:48 AM EDT 2 g 50 mL/hr ondansetron (PF) 8 mg injection (ZOFRAN) 8 mg, INTRAVENOUS, ONCE, 1 dose, On Wed10/14/22 at 0830, Administer 30 minutes prior to infusion. Given 10/14/2022 8:43 AM EDT 8 mg PACLitaxel 330 mg in NaCl 0.9% 595 mL (TAXOL) 330 mg (rounded from 338.85 mg = 135 mg/m2 2.51 m2 Treatment Plan BSA from Recorded weight), INTRAVENOUS, Administer over 3 Hours, ONCE, 1 dose, On Wed10/14/22 at 0830, Approx Total Volume Exp: 10/15/22 1500 Hazardous Chemotherapy Drug: Use appropriate PPE. Antineoplastic Irritant with Vesicant Potential. Administer with non-DEHP 0.2 micron filter and tubing. New Bag/Syringe/Bottle 10/14/2022 9:54 AM EDT 330 mg pembrolizumab 200 mg in NaCl 0.9% 66 mL (KEYTRUDA) 200 mg, INTRAVENOUS, Administer over 30 Minutes, ONCE, 1 dose, On Wed10/14/22 at 0830, Approx Total Volume: 66 mL Expiration: 10/14/22 1500 (Room temp) Administer with 0.2 micron filter. New Bag/Syringe/Bottle 10/14/2022 9:15 AM EDT 200 mg Inactive Administered Medications - up to 3 most recent administrations Medication Order MAR Action Action Date Dose Rate Site CARBOplatin 650 mg in NaCl 0.9% 340 mL (PARAPLATIN) 650 mg (rounded from 656.5 mg, Target AUC = 5), INTRAVENOUS, Administer over 30 Minutes, ONCE, 1 dose, On Wed11/11/22 at 0930, exp 1000 11/12/22 (room temp) Hazardous Chemotherapy Drug: Use appropriate PPE. Antineoplastic Irritant. New Bag/Syringe/Bottle 11/11/2022 1:38 PM EDT 650 mg dexAMETHasone 20 mg in NaCl 0.9% 50 mL (DECADRON) 20 mg, INTRAVENOUS, Administer over 15 Minutes, ONCE, 1 dose, On Wed11/11/22 at 0930, Give prior to chemotherapy. Refrigerate. New Bag/Syringe/Bottle 11/11/2022 9:40 AM EDT 20 mg diphenhydrAMINE 50 mg injection (BENADRYL) 50 mg, INTRAVENOUS, ONCE, 1 dose, On Wed11/11/22 at 0930, Give prior to chemotherapy. Given 11/11/2022 9:33 AM EDT 50 mg famotidine 20 mg injection (PEPCID) 20 mg, INTRAVENOUS, ONCE, 1 dose, On Wed11/11/22 at 0930, Give prior to chemotherapy. REFRIGERATE Given 11/11/2022 9:36 AM EDT 20 mg magnesium sulfate in sterile water 4 g in 100 mL iv piggyback 4 g, INTRAVENOUS, at 50 mL/hr, Administer over 2 Hours, ONCE, 1 dose, On Wed11/11/22 at 1030, 6 gm total today Magnesium Sulfate IV bolus will be infused at a rate of 1 gram/hr. The following care areas may administer a magnesium sulfate bolus at a rate of 2 grams/hr if necessary: 1) ICUs/PACU/ED 2) Adult Hematology/Oncology 3) Labor and Delivery 4) Cardiac Step Down 5) Headache Clinic The following care areas may administer a magnesium sulfate bolus at a rate of GREATER than 2 grams/hr if necessary: 1) Adult and Pediatric Asthma Exacerbations 2) Torsade de Pointes 3) Pediatric BMT and Hematology/Oncology 4) Eclampsia or Preeclampsia New Bag/Syringe/Bottle 11/11/2022 10:37 AM EDT 4 g 50 mL/hr magnesium sulfate iv piggyback in sterile water 2 g 50 mL 2 g, INTRAVENOUS, at 50 mL/hr, Administer over 1 Hours, ONCE, 1 dose, On Wed11/11/22 at 1030, Magnesium Sulfate IV bolus will be infused at a rate of 1 gram/hr. The following care areas may administer a magnesium sulfate bolus at a rate of 2 grams/hr if necessary: 1) ICUs/PACU/ED 2) Adult Hematology/Oncology 3) Labor and Delivery 4) Cardiac Step Down 5) Headache Clinic The following care areas may administer a magnesium sulfate bolus at a rate of GREATER than 2 grams/hr if necessary: 1) Adult and Pediatric Asthma Exacerbations 2) [place] 3) Pediatric BMT and Hematology/Oncology 4) Eclampsia or Preeclampsia New Bag/Syringe/Bottle 11/11/2022 12:15 PM EDT 2 g 50 mL/hr ondansetron (PF) 8 mg injection (ZOFRAN) 8 mg, INTRAVENOUS, ONCE, 1 dose, On Wed11/11/22 at 0930, Administer 30 minutes prior to infusion. Given 11/11/2022 9:38 AM EDT 8 mg PACLitaxel 240 mg in NaCl 0.9% 580 mL (TAXOL) 240 mg (rounded from 251 mg = 100 mg/m2 2.51 m2 Treatment Plan BSA from Recorded weight), INTRAVENOUS, Administer over 3 Hours, ONCE, 1 dose, On Wed11/11/22 at 0930, exp 159911/12/22 (room temp) Hazardous Chemotherapy Drug: Use appropriate PPE. Antineoplastic Irritant with Vesicant Potential. Administer with non-DEHP 0.2 micron filter and tubing. New Bag/Syringe/Bottle 11/11/2022 10:32 AM EDT 240 mg pembrolizumab 200 mg in NaCl 0.9% 66 mL (KEYTRUDA) 200 mg, INTRAVENOUS, Administer over 30 Minutes, ONCE, 1 dose, On Wed11/11/22 at 0930, exp 159911/11/22 (room temp) - free meds Administer with 0.2 micron filter. New Bag/Syringe/Bottle 11/11/2022 10:00 AM EDT 200 mg Inactive Administered Medications - up to 3 most recent administrations Medication Order MAR Action Action Date Dose Rate Site magnesium sulfate in sterile water 4 g in 100 mL iv piggyback 4 g, INTRAVENOUS, at 50 mL/hr, Administer over 2 Hours, ONCE, 1 dose, On Wed12/15/22 at 1200, 6 gm total today Magnesium Sulfate IV bolus will be infused at a rate of 1 gram/hr. The following care areas may administer a magnesium sulfate bolus at a rate of 2 grams/hr if necessary: 1) ICUs/PACU/ED 2) Adult Hematology/Oncology 3) Labor and Delivery 4) Cardiac Step Down 5) Headache Clinic The following care areas may administer a magnesium sulfate bolus at a rate of GREATER than 2 grams/hr if necessary: 1) Adult and Pediatric Asthma Exacerbations 2) [place] 3) Pediatric BMT and Hematology/Oncology 4) Eclampsia or Preeclampsia New Bag/Syringe/Bottl e 12/15/2022 11:40 AM EDT 4 g 50 mL/hr magnesium sulfate iv piggyback in sterile water 2 g 50 mL 2 g, INTRAVENOUS, at 50 mL/hr, Administer over 1 Hours, ONCE, 1 dose, On Wed12/15/22 at 1200, Magnesium Sulfate IV bolus will be infused at a rate of 1 gram/hr. The following care areas may administer a magnesium sulfate bolus at a rate of 2 grams/hr if necessary: 1) ICUs/PACU/ED 2) Adult Hematology/Oncology 3) Labor and Delivery 4) Cardiac Step Down 5) Headache Clinic The following care areas may administer a magnesium sulfate bolus at a rate of GREATER than 2 grams/hr if necessary: 1) Adult and Pediatric Asthma Exacerbations 2) [place] 3) Pediatric BMT and Hematology/Oncology 4) Eclampsia or Preeclampsia New Bag/Syringe/Bottl e 12/15/2022 1:21 PM EDT 2 g 50 mL/hr NaCl 0.9% iv infusion 1,000 mL/hr (rounded to 999 mL/hr), INTRAVENOUS, Administer over 1 Hours, ONCE, 1 dose, On Wed12/15/22 at 1100, Run over 2 hours. New Bag/Syringe/Bottl e 12/15/2022 10:50 AM EDT 1,000 mL/hr 999 mL/hr Inactive Administered Medications - up to 3 most recent administrations Medication Order MAR Action Action Date Dose Rate Site magnesium sulfate in sterile water 4 g in 100 mL iv piggyback 4 g, INTRAVENOUS, at 50 mL/hr, Administer over 2 Hours, ONCE, 1 dose, On Wed12/22/22 at 1000, 6 gm total today Magnesium Sulfate IV bolus will be infused at a rate of 1 gram/hr. The following care areas may administer a magnesium sulfate bolus at a rate of 2 grams/hr if necessary: 1) ICUs/PACU/ED 2) Adult Hematology/Oncology 3) Labor and Delivery 4) Cardiac Step Down 5) Headache Clinic The following care areas may administer a magnesium sulfate bolus at a rate of GREATER than 2 grams/hr if necessary: 1) Adult and Pediatric Asthma Exacerbations 2) [place] Pointes 3) Pediatric BMT and Hematology/Oncology 4) Eclampsia or Preeclampsia New Bag/Syringe/Bottl e 12/22/2022 10:09 AM EDT 4 g 50 mL/hr magnesium sulfate iv piggyback in sterile water 2 g 50 mL 2 g, INTRAVENOUS, at 50 mL/hr, Administer over 1 Hours, ONCE, 1 dose, On Wed12/22/22 at 1000, Magnesium Sulfate IV bolus will be infused at a rate of 1 gram/hr. The following care areas may administer a magnesium sulfate bolus at a rate of 2 grams/hr if necessary: 1) ICUs/PACU/ED 2) Adult Hematology/Oncology 3) Labor and Delivery 4) Cardiac Step Down 5) Headache Clinic The following care areas may administer a magnesium sulfate bolus at a rate of GREATER than 2 grams/hr if necessary: 1) Adult and Pediatric Asthma Exacerbations 2) [place] 3) Pediatric BMT and Hematology/Oncology 4) Eclampsia or Preeclampsia New Bag/Syringe/Bottl e 12/22/2022 11:55 AM EDT 2 g 50 mL/hr NaCl 0.9% iv infusion 1,000 mL/hr (rounded to 999 mL/hr), INTRAVENOUS, Administer over 1 Hours, ONCE, 1 dose, On Wed12/22/22 at 1000, Run over 2 hours. New Bag/Syringe/Bottl e 12/22/2022 10:06 AM EDT 1,000 mL/hr 999 mL/hr Inactive Administered Medications - up to 3 most recent administrations Medication Order MAR Action Action Date Dose Rate Site regadenoson 0.4 mg injection (LEXISCAN) 0.4 mg, INTRAVENOUS, ONCE, 1 dose, On Wed12/28/22 at 1100, Give 0.4 mg (5 mL) over ~10 seconds, followed immediately by a 5 mL saline flush. Wait 10-20 seconds, then administer the radionuclide myocardial perfusion imaging agent. Given 12/28/2022 10:30 AM EDT 0.4 mg Inactive Administered Medications - up to 3 most recent administrations Medication Order MAR Action Action Date Dose Rate Site benzocaine 20% 1 Strabane (TOPEX) 1 Str[place]ane, TOPICAL, DIRECTED, Starting on Wed11/25/22 at 0830, Until Wed11/25/22 at 1229, DOSING DIRECTED BY PHYSICIAN FOR PROCEDURAL SEDATION ONLY - Pharmaceutical Waste: Aerosol -, Intraprocedure Given 11/25/2022 8:14 AM EDT 1 Strabane diphenhydrAMINE 12.5-50 mg injection (BENADRYL) 12.5-50 mg, INTRAVENOUS, DIRECTED, Starting on Wed11/25/22 at 0830, Until Wed11/25/22 at 1229, DOSING DIRECTED BY PHYSICIAN FOR PROCEDURAL SEDATION ONLY, Intraprocedure Given 11/25/2022 8:17 AM EDT 50 mg fentaNYL 50 mcg/mL 25-100 mcg injection (SUBLIMAZE) 25-100 mcg, INTRAVENOUS, DIRECTED, Starting on Wed11/25/22 at 0830, Until Wed11/25/22 at 1229, DOSING DIRECTED BY PHYSICIAN FOR PROCEDURAL SEDATION ONLY, Intraprocedure Given 11/25/2022 8:15 AM EDT 50 mcg lactated ringers iv infusion 75 mL/hr, INTRAVENOUS, CONTINUOUS, Starting on Wed11/25/22 at 0730, Until Wed11/25/22 at 0846, Preprocedure New Bag/Syringe/Bottle 11/25/2022 7:50 AM EDT 75 mL/hr 75 mL/hr midazolam 1-5 mg injection (VERSED) 1-5 mg, INTRAVENOUS, DIRECTED, Starting on Wed11/25/22 at 0830, Until Wed11/25/22 at 1229, DOSING DIRECTED BY PHYSICIAN FOR PROCEDURAL SEDATION ONLY, Intraprocedure Given 11/25/2022 8:19 AM EDT 2 mg Given 11/25/2022 8:15 AM EDT 2 mg Inactive Administered Medications - up to 3 most recent administrations Medication Order MAR Action Action Date Dose Rate Site CARBOplatin 550 mg in NaCl 0.9% 330 mL (PARAPLATIN) 550 mg (rounded from 593 mg, Target AUC = 5), INTRAVENOUS, Administer over 30 Minutes, ONCE, 1 dose, On Wed01/13/23 at 0800, Approx Total Volume - Expires: 01/14/23 @ 0800 Hazardous Chemotherapy Drug: Use appropriate PPE. Antineoplastic Irritant. New Bag/Syringe/Bottle 01/13/2023 11:35 AM EST 550 mg dexAMETHasone 20 mg in NaCl 0.9% 50 mL (DECADRON) 20 mg, INTRAVENOUS, Administer over 15 Minutes, ONCE, 1 dose, On Wed01/13/23 at 0800, Give prior to chemotherapy. Refrigerate. New Bag/Syringe/Bottle 01/13/2023 8:00 AM EST 20 mg diphenhydrAMINE 50 mg injection (BENADRYL) 50 mg, INTRAVENOUS, ONCE, 1 dose, On Wed01/13/23 at 0800, Give prior to chemotherapy. Given 01/13/2023 7:57 AM EST 50 mg famotidine 20 mg injection (PEPCID) 20 mg, INTRAVENOUS, ONCE, 1 dose, On Wed01/13/23 at 0800, Give prior to chemotherapy. REFRIGERATE Given 01/13/2023 7:57 AM EST 20 mg magnesium sulfate in sterile water 4 g in 100 mL iv piggyback 4 g, INTRAVENOUS, at 50 mL/hr, Administer over 2 Hours, ONCE, 1 dose, On Wed01/13/23 at 0800, Magnesium Sulfate IV bolus will be infused at a rate of 1 gram/hr. The following care areas may administer a magnesium sulfate bolus at a rate of 2 grams/hr if necessary: 1) ICUs/PACU/ED 2) Adult Hematology/Oncology 3) Labor and Delivery 4) Cardiac Step Down 5) Headache Clinic The following care areas may administer a magnesium sulfate bolus at a rate of GREATER than 2 grams/hr if necessary: 1) Adult and Pediatric Asthma Exacerbations 2) [place]ade [place] Pointes 3) Pediatric BMT and Hematology/Oncology 4) Eclampsia or Preeclampsia New Bag/Syringe/Bottle 01/13/2023 8:27 AM EST 4 g 50 mL/hr ondansetron (PF) 8 mg injection (ZOFRAN) 8 mg, INTRAVENOUS, ONCE, 1 dose, On Wed01/13/23 at 0800, Administer 30 minutes prior to infusion. Given 01/13/2023 7:57 AM EST 8 mg PACLitaxel 240 mg in NaCl 0.9% 580 mL (TAXOL) 240 mg (rounded from 251 mg = 100 mg/m2 2.51 m2 Treatment Plan BSA from Recorded weight), INTRAVENOUS, Administer over 3 Hours, ONCE, 1 dose, On Wed01/13/23 at 0800, Approx Total Volume - Expires: 01/14/23 @ 1415 Hazardous Chemotherapy Drug: Use appropriate PPE. Antineoplastic Irritant with Vesicant Potential. Administer with non-DEHP 0.2 micron filter and tubing. New Bag/Syringe/Bottle 01/13/2023 8:37 AM EST 240 mg Inactive Administered Medications - up to 3 most recent administrations Medication Order MAR Action Action Date Dose Rate Site magnesium sulfate in sterile water 4 g in 100 mL iv piggyback 4 g, INTRAVENOUS, at 50 mL/hr, Administer over 2 Hours, ONCE, 1 dose, On Myrna 02/18/23 at 0900, Magnesium Sulfate IV bolus will be infused at a rate of 1 gram/hr. The following care areas may administer a magnesium sulfate bolus at a rate of 2 grams/hr if necessary: 1) ICUs/PACU/ED 2) Adult Hematology/Oncology 3) Labor and Delivery 4) Cardiac Step Down 5) Headache Clinic The following care areas may administer a magnesium sulfate bolus at a rate of GREATER than 2 grams/hr if necessary: 1) Adult and Pediatric Asthma Exacerbations 2) [place]ade de Pointes 3) Pediatric BMT and Hematology/Oncology 4) Eclampsia or Preeclampsia New Bag/Syringe/Bottle 02/18/2023 9:01 AM EST 4 g 50 mL/hr magnesium sulfate iv piggyback in sterile water 2 g 50 mL 2 g, INTRAVENOUS, at 50 mL/hr, Administer over 1 Hours, ONCE, 1 dose, On Myrna 02/18/23 at 0900, Magnesium Sulfate IV bolus will be infused at a rate of 1 gram/hr. The following care areas may administer a magnesium sulfate bolus at a rate of 2 grams/hr if necessary: 1) ICUs/PACU/ED 2) Adult Hematology/Oncology 3) Labor and Delivery 4) Cardiac Step Down 5) Headache Clinic The following care areas may administer a magnesium sulfate bolus at a rate of GREATER than 2 grams/hr if necessary: 1) Adult and Pediatric Asthma Exacerbations 2) [place]ade de Pointes 3) Pediatric BMT and Hematology/Oncology 4) Eclampsia or Preeclampsia New Bag/Syringe/Bottle 02/18/2023 10:59 AM EST 2 g 50 mL/hr Reason for Referral Specialty Diagnoses / Procedures Referred By Bryan valencia Referred To Contact CT IMAGING Diagnoses Abnormal ultrasound Adnexal cyst Procedures CT ABD/PEL W IVCON CT ABD & PELVIS W/CONTRAST Billie Hwang APRN.DIRECTOR MARKETING [address] [place] [address] Ct Imaging Referral ID Status Reason Start Date Expiration Date Visits Requested Visits Authorized [id number] Authorized Auto-Generat ed Referral 06/11/2022 07/11/2023 1 1 Specialty Diagnoses / Procedures Referred By Bryan valencia Referred To Contact Gynecology Diagnoses Elevated CA-125 Endometrial thickening on ultrasound Abnormal CT of the abdomen Procedures CONSULT TO GYNECOLOGY OFFICE/OUTPATIENT NEW HIGH MDM 60-74 MINUTES Billie Hwang, NETSUITE CONSULTANT.DIRECTOR MARKETING [address] [place] [address] Referral ID Status Reason Start Date Expiration Date Visits Requested Visits Authorized [id number] Pending Review PCP Requested Referral Auto-Generate d Referral 06/24/2022 06/24/2023 1 1 Specialty Diagnoses / Procedures Referred By Contac t Referred To Contact Diagnoses Elevated cancer antigen 125 (CA-125) Adnexal mass Procedures CONSULT TO GYNECOLOGIC/ONCOLOGY OFFICE/OUTPATIENT [facility] 60-74 MINUTES Mukesh Khan MD [address] [place] [address] Referral ID Status Reason Start Date Expiration Date Visits Requested Visits Authorized [id number] Pending Review PCP Requested Referral Auto-Generate d Referral 06/30/2022 06/30/2023 1 1 Specialty Diagnoses / Procedures Referred By Contac t Referred To Contact Oncology Diagnoses Endometrial cancer (HCC) Procedures CONSULT TO ONCOLOGY OFFICE/OUTPATIENT [facility] 60-74 MINUTES Zora Casno NETSUITE CONSULTANT.DIRECTOR MARKETING [address] [place] [address] Referral ID Status Reason Start Date Expiration Date Visits Requested Visits Authorized [id number] Pending Review PCP Requested Referral 08/12/2022 08/12/2023 1 1 Specialty Diagnoses / Procedures Referred By Contac t Referred To Contact CT IMAGING Diagnoses Endometrial cancer (HCC) Procedures CT CHEST W IVCON DIAGNOSTIC COMPUTED TOMOGRAPHY THORAX W/CONTRAST Zora Cason APRN.DIRECTOR MARKETING [address] [place] [id number] Imaging Referral ID Status Reason Start Date Expiration Date Visits Requested Visits Authorized [id number] Authorized Auto-Generat ed Referral 08/12/2022 09/11/2023 1 1 Specialty Diagnoses / Procedures Referred By Contac t Referred To Contact CT IMAGING Diagnoses Endometrial cancer (HCC) Procedures CT ABD/PEL W IVCON CT ABD & PELVIS W/CONTRAST Zora Cason APRN.DIRECTOR MARKETING [address] [place] [id number] Imaging Referral ID Status Reason Start Date Expiration Date Visits Requested Visits Authorized [id number] Authorized Auto-Generat ed Referral 08/12/2022 09/11/2023 1 1 Specialty Diagnoses / Procedures Referred By Contac t Referred To Contact Diagnoses Endometrial cancer (HCC) Procedures CONSULT TO MEDICAL GENETICS - CANCER MEDICAL GENETICS COUNSELING EACH 30 [place] [address] [place] [address] [facility] [address] [place] [address] Referral ID Status Reason Start Date Expiration Date Visits Requested Visits Authorized [id number] Pending Review PCP Requested Referral Auto-Generate d Referral 08/12/2022 08/12/2023 1 1 Specialty Diagnoses / Procedures Referred By Contac t Referred To Contact General Surgery Diagnoses Endometrial cancer (HCC) Procedures CONSULT TO GENERAL SURGERY OFFICE/OUTPATIENT [facility] 60-74 MINUTES Nora Branham, DO [address] [place] [address] Referral ID Status Reason Start Date Expiration Date Visits Requested Visits Authorized [id number] Pending Review PCP Requested Referral 08/14/2022 08/14/2023 1 1 Specialty Diagnoses / Procedures Referred By Contac t Referred To Contact CT IMAGING Diagnoses Endometrial cancer (HCC) Procedures CT ABD/PEL W IVCON CT ABD & PELVIS W/CONTRAST Nora Branham, DO [address] [place] [address] Ct Imaging [id number] Referral ID Status Reason Start Date Expiration Date Visits Requested Visits Authorized [id number] Authorized Auto-Generat ed Referral 10/13/2022 11/12/2023 1 1 Specialty Diagnoses / Procedures Referred By Contac t Referred To Contact CT IMAGING Diagnoses Endometrial cancer (HCC) Procedures CT CHEST W IVCON DIAGNOSTIC COMPUTED TOMOGRAPHY THORAX W/CONTRAST Nora Branham, DO [address] [place] [address] [place] [address] Referral ID Status Reason Start Date Expiration Date Visits Requested Visits Authorized [id number] Authorized Auto-Generat ed Referral 10/13/2022 11/12/2023 1 1 Specialty Diagnoses / Procedures Referred By Contac t Referred To Contact Cardiology Diagnoses Neurogenic orthostatic hypotension (HCC) Nonspecific abnormal electrocardiogram (ECG) (EKG) Procedures CONSULT TO CARDIOLOGY OFFICE/OUTPATIENT NEW HIGH MDM 60-74 MINUTES Nora Branham, [address] [facility] [place] [address] Referral ID Status Reason Start Date Expiration Date Visits Requested Visits Authorized [id number] Pending Review PCP Requested Referral 3 12/22/2023 1 1 Specialty Diagnoses / Procedures Referred By Mandyac t Referred To Contact [facility] [place] Diagnoses Neurogenic orthostatic hypotension (HCC) Encounter for monitoring cardiotoxic drug therapy Procedures ECHO ECHO TTHRC R-T 2D W/WOM-MODE COMPL SPEC&COLR D Nora Branham, [address] [facility] [place] [address] [facility] [address] [address] Referral ID Status Reason Start Date Expiration Date Visits Requested Visits Authorized [id number] Authorized Auto-Generat ed Referral 3 12/22/2023 1 1 Specialty Diagnoses / Procedures Referred By Mandyac t Referred To Contact [facility] Diagnoses Neurogenic orthostatic hypotension (HCC) Procedures ECG COMPLETE ECG ROUTINE ECG W/LEAST 12 LDS W/I&R Nora Branham DO [address] [place] [address] [address] Referral ID Status Reason Start Date Expiration Date Visits Requested Visits Authorized [id number] Pending Review Auto-Generat ed Referral 3 12/22/2023 1 1 Specialty Diagnoses / Procedures Referred By Mandyac t Referred To Contact Cardiology Diagnoses Acute systolic congestive heart failure (HCC) Endometrial cancer (HCC) Type 2 diabetes mellitus without complication, with no history of insulin use (HCC) Procedures CONSULT TO CARDIOLOGY OFFICE/OUTPATIENT NEW HIGH MDM 60-74 MINUTES Nora Branham, DO [address] [facility] [place] [address] Referral ID Status Reason Start Date Expiration Date Visits Requested Visits Authorized [id number] Pending Review PCP Requested Referral 12/28/2023 1 1 Specialty Diagnoses / Procedures Referred By Contac t Referred To Contact Radiation Oncology Diagnoses Endometrial cancer (HCC) Procedures RAD/ONC CONSULT OFFICE/OUTPATIENT NEW HIGH MDM 60-[place] [address] [place] [id number] Referral ID Status Reason Start Date Expiration Date Visits Requested Visits Authorized [id number] Pending Review PCP Requested Referral 01/06/2023 12/30/2023 1 1 Specialty Diagnoses / Procedures Referred By Contac t Referred To Contact CT IMAGING Diagnoses Endometrial cancer (HCC) Procedures CT CHEST W IVCON DIAGNOSTIC COMPUTED TOMOGRAPHY THORAX W/CONTRAST Zora Cason, NETSUITE CONSULTANT.DIRECTOR MARKETING [address] [place] [address] [place] [address] Referral ID Status Reason Start Date Expiration Date V isits Requested Visits Authorized [id number] Closed Auto-Generate d Referral 08/12/2022 09/11/2023 1 1 Specialty Diagnoses / Procedures Referred By Contac t Referred To Contact CT IMAGING Diagnoses Endometrial cancer (HCC) Procedures CT ABD/PEL W IVCON CT ABD & PELVIS W/CONTRAST Zora Cason, NETSUITE CONSULTANT.DIRECTOR MARKETING [address] [place] [address] [place] [address] Referral ID Status Reason Start Date Expiration Date V isits Requested Visits Authorized [id number] Closed Auto-Generate d Referral 08/12/2022 09/11/2023 1 1 Referral ID Status Reason Start Date Expiration Date V isits Requested Visits Authorized [id number] Closed Auto-Generate d Referral 10/13/2022 11/12/2023 1 1 Referral ID Status Reason Start Date Expiration Date V isits Requested Visits Authorized [id number] Closed Auto-Generate d Referral 10/13/2022 11/12/2023 1 1 Specialty Diagnoses / Procedures Referred By Contac t Referred To Contact CT IMAGING Diagnoses Abnormal ultrasound Adnexal cyst Procedures CT ABD/PEL W IVCON CT ABD & PELVIS W/CONTRAST Billie Hwang APRN.DIRECTOR MARKETING [address] [place] [address] Ct Imaging [place] [address] Referral ID Status Reason Start Date Expiration Date Visits Requested Visits Authorized [id number] Authorized Auto-Generat ed Referral 06/11/2022 07/11/2023 2 2 Specialty Diagnoses / Procedures Referred By Contac t Referred To Contact Diagnoses Endometrial cancer (HCC) Procedures CT SIM PLANNING RADIATION ONCOLOGY THER RAD SIMULAJ-AIDED FIELD [place] Rosanne Dí[place] [address] [place] [address] Referral ID Status Reason Start Date Expiration Date Visits Requested Visits Authorized [id number] Pending Review PCP Requested Referral 04/12/2023 1 1 Specialty Diagnoses / Procedures Referred By Contac t Referred To Contact Cardiology Diagnoses Endometrial cancer (HCC) Encounter for monitoring cardiotoxic drug therapy Immunotherapy Other cardiomyopathy (HCC) Procedures CONSULT TO CARDIOLOGY OFFICE/OUTPATIENT [facility] 60-74 MINUTES Nora Branham, [address] [place] [address] Referral ID Status Reason Start Date Expiration Date Visits Requested Visits Authorized [id number] Pending Review PCP Requested Referral 02/02/2023 02/02/2024 1 1 Specialty Diagnoses / Procedures Referred By Contac t Referred To Contact Procedures CARDIOVASCULAR MEDICINE OP FOLLOW UP APPT ORDER Farshad Marie MD [facility] [place] [address] Referral ID Status Reason Start Date Expiration Date Visits Requested Visits Authorized [id number] Ref Not Required PCP Requested Referral 04/02/2023 04/01/2024 1 1 Specialty Diagnoses / Procedures Referred By Contac t Referred To Contact MR IMAGING Diagnoses Cardiomyopathy, unspecified type (HCC) Acute myocarditis, unspecified myocarditis type Procedures MRI CARDIAC VELOCITY FLOW MAP CARDIAC MRI FOR VELOCITY FLOW MAPPING Farshad Marie MD [address] [place] [address] Mr Imaging [place] [address] Referral ID Status Reason Start Date Expiration Date Visits Requested Visits Authorized [id number] Authorized Auto-Generat ed Referral 04/02/2023 05/01/2024 1 1 Specialty Diagnoses / Procedures Referred By Contac t Referred To Contact MR IMAGING Diagnoses Obesity, Class III, BMI 40-49.9 (morbid obesity) (HCC) 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) Heart failure with mildly reduced ejection fraction (HCC) Cardiomyopathy, unspecified type (HCC) Acute myocarditis, unspecified myocarditis type Procedures MRI CARDIAC MORPH FUNC WO/W IVCON CARDIAC MRI W/WO CONTRAST & FURTHER SEQ Farshad Marie MD [address] [place] [address] Mr Imaging [place] [address] Referral ID Status Reason Start Date Expiration Date Visits Requested Visits Authorized [id number] Authorized Auto-Generat ed Referral 04/02/2023 05/01/2024 1 1 Specialty Diagnoses / Procedures Referred By Contac t Referred To Contact Procedures CARDIOVASCULAR MEDICINE OP FOLLOW UP APPT ORDER Farshad Marie MD [address] [place] [address] Referral ID Status Reason Start Date Expiration Date Visits Requested Visits Authorized [id number] Ref Not Required PCP Requested Referral 05/19/2023 04/19/2024 1 1 Specialty Diagnoses / Procedures Referred By Contac t [facility] Procedures CARDIOVASCULAR MEDICINE OP FOLLOW UP APPT ORDER Farshad Marie MD [address] [place] [address] [facility] [address] [place] [address] Referral ID Status Reason Start Date Expiration Date Visits Requested Visits Authorized [id number] Ref Not Required PCP Requested Referral 06/26/2023 05/25/2024 1 1 Referral ID Status Reason Start Date Expiration Date Visits Requested Visits Authorized [id number] Authorized Auto-Generat ed Referral 06/08/2023 07/07/2024 1 1 Referral ID Status Reason Start Date Expiration Date Visits Requested Visits Authorized [id number] Authorized Auto-Generat ed Referral 06/08/2023 07/07/2024 1 1 Specialty Diagnoses / Procedures Referred By Contac t Referred To Contact MR IMAGING Diagnoses Cardiomyopathy, unspecified type (HCC) Acute myocarditis, unspecified myocarditis type Procedures MRI CARDIAC VELOCITY FLOW MAP CARDIAC MRI FOR VELOCITY FLOW MAPPING Farshad Marie MD [address] [place] [address] Mr Imaging [place] [address] Referral ID Status Reason Start Date Expiration Date V isits Requested Visits Authorized [id number] Closed Auto-Generate d Referral 04/02/2023 05/01/2024 1 1 Specialty Diagnoses / Procedures Referred By Contac t Referred To Contact MR IMAGING Diagnoses Obesity, Class III, BMI 40-49.9 (morbid obesity) (HCC) 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) Heart failure with mildly reduced ejection fraction (HCC) Cardiomyopathy, unspecified type (HCC) Acute myocarditis, unspecified myocarditis type Procedures MRI CARDIAC MORPH FUNC WO/W IVCON CARDIAC MRI W/WO CONTRAST & FURTHER SEQ Farshad Marie MD [address] [place] [id number] [facility] [place] [address] Referral ID Status Reason Start Date Expiration Date V isits Requested Visits Authorized [id number] Closed Auto-Generate d Referral 04/02/2023 05/01/2024 1 1 Referral ID Status Reason Start Date Expiration Date Visits Requested Visits Authorized [id number] Ref Not Required PCP Requested Referral 11/03/2023 08/02/2024 1 1 Specialty Diagnoses / Procedures Referred By Contac t Referred To Contact CT IMAGING Diagnoses Endometrial cancer (HCC) Lung nodule Secondary malignancy of iliac lymph nodes (HCC) Procedures CT CHEST WO IVCON DIAGNOSTIC COMPUTED TOMOGRAPHY THORAX W/O CNTRST Nora Branham, DO [address] [place] [address] [facility] [place] [id number] Referral ID Status Reason Start Date Expiration Date Visits Requested Visits Authorized [id number] Authorized Auto-Generat ed Referral 08/26/2023 09/24/2024 1 1 Specialty Diagnoses / Procedures Referred By Contac t [facility] Diagnoses Acute on chronic systolic congestive heart failure (HCC) Procedures CARDIOVASCULAR MEDICINE OP FOLLOW UP APPT ORDER Farshad Marie MD [address] [place] [address] [facility] [address] [address] Referral ID Status Reason Start Date Expiration Date Visits Requested Visits Authorized [id number] Ref Not Required PCP Requested Referral 10/12/2024 1 1 Specialty Diagnoses / Procedures Referred By Contac t Referred To Contact CT IMAGING Diagnoses Endometrial cancer (HCC) Carcinomatosis (HCC) Lung nodules Procedures CT CHEST W IVCON DIAGNOSTIC COMPUTED TOMOGRAPHY THORAX W/CONTRAST Tamara Mari, NETSUITE CONSULTANT.[facility] [address] [place] [address] Ct Imaging [id number] Referral ID Status Reason Start Date Expiration Date Visits Requested Visits Authorized [id number] Authorized Auto-Generat ed Referral 01/05/2024 02/03/2025 1 1 Specialty Diagnoses / Procedures Referred By Contac t Referred To Contact CT IMAGING Diagnoses Endometrial cancer (HCC) Carcinomatosis (HCC) Lung nodules Procedures CT ABD/PEL W IVCON CT ABD & PELVIS W/CONTRAST Tamara Mari, NETSUITE CONSULTANT.[employer] [address] [place] [address] Ct Imaging [id number] Referral ID Status Reason Start Date Expiration Date Visits Requested Visits Authorized [id number] Authorized Auto-Generat ed Referral 01/05/2024 02/03/2025 1 1 Specialty Diagnoses / Procedures Referred By Contac t Referred To Contact Diagnoses Secondary malignant neoplasm of right lung (HCC) Procedures CT SIM PLANNING RADIATION ONCOLOGY THER RAD SIMULAJ-AIDED FIELD SETTING COMPLEX Patel Escalera MD [address] [facility] [place] [address] Referral ID Status Reason Start Date Expiration Date Visits Requested Visits Authorized [id number] New Request PCP Requested Referral 4 05/11/2024 1 1 Specialty Diagnoses / Procedures Referred By Contac t Referred To Contact CT IMAGING Diagnoses Endometrial cancer (HCC) Carcinomatosis (HCC) Procedures CT ABD/PEL W IVCON CT ABD & PELVIS W/CONTRAST Nora Branham, DO [address] [place] [address] [place] [id number] Referral ID Status Reason Start Date Expiration Date Visits Requested Visits Authorized [id number] Authorized Auto-Generat ed Referral 03/15/2024 04/14/2025 1 1 Specialty Diagnoses / Procedures Referred By Contac t Referred To Contact CT IMAGING Diagnoses Endometrial cancer (HCC) Carcinomatosis (HCC) Procedures CT CHEST W IVCON DIAGNOSTIC COMPUTED TOMOGRAPHY THORAX W/CONTRAST Nora Branham, DO [address] [place] [address] [place] [address] Referral ID Status Reason Start Date Expiration Date Visits Requested Visits Authorized [id number] Authorized Auto-Generat ed Referral 03/15/2024 04/14/2025 1 1 Chief Complaint and Reason for Visit Chief Complaint ABN EKG (MASCI) UROSEPSIS Reason for Visit Coronary artery dise ase Diabetes Dyslipidemia Endometrial cancer Hypertension Nonischemic cardiomyopathy Obesity Acute dehydration Acute hypotension Acute kidney injury Acute UTI History of cancer of uterus Hypomagnesemia Pancytopenia Chief Complaint ABN EKG ([facility]ASCI) UROSEPSIS UROSEPSIS Reason for Visit Coronary artery dise ase Diabetes Dyslipidemia Endometrial cancer Hypertension Nonischemic cardiomyopathy Obesity Acute dehydration Acute hypotension Acute kidney injury Acute UTI History of cancer of uterus Hypomagnesemia Pancytopenia Sepsis Chief Complaint ABN EKG (MASCI) UROSEPSIS UROSEPSIS UROSEPSIS 6 W FU UTI, HYPOTENSION, CHRONIC KIDNEY DISEASE UTI, HYPOTENSION, LACTIC ACIDOSIS Reason for Visit Coronary artery dise ase Diabetes Dyslipidemia Endometrial cancer Hypertension Nonischemic cardiomyopathy Obesity Acute dehydration Acute hypotension Acute kidney injury Sepsis Coronary artery disease Diabetes Dyslipidemia Endometrial cancer Hypotension (arterial) Nonischemic cardiomyopathy Obesity Urinary tract infection CKD (chronic kidney disease) stage 3, GFR 30-59 ml/min Hypotension (arterial) Chief Complaint ABN EKG (MASCI) UROSEPSIS UROSEPSIS UROSEPSIS 6 W FU UTI, HYPOTENSION, CHRONIC KIDNEY DISEASE UTI, HYPOTENSION, LACTIC ACIDOSIS UTI, HYPOTENSION, LACTIC ACIDOSIS UTI, HYPOTENSION, LACTIC ACIDOSIS Reason for Visit Coronary artery dise ase Diabetes Dyslipidemia Endometrial cancer Hypertension Nonischemic cardiomyopathy Obesity Acute dehydration Acute hypotension Acute kidney injury Sepsis Coronary artery disease Diabetes Dyslipidemia Endometrial cancer Hypotension (arterial) Nonischemic cardiomyopathy Obesity Urinary tract infection CKD (chronic kidney disease) stage 3, GFR 30-59 ml/min Hypotension (arterial) Chief Complaint ABN EKG (MASCI) UROSEPSIS UROSEPSIS UROSEPSIS 6 W FU UTI, HYPOTENSION, CHRONIC KIDNEY DISEASE UTI, HYPOTENSION, LACTIC ACIDOSIS UTI, HYPOTENSION, LACTIC ACIDOSIS UTI, HYPOTENSION, LACTIC ACIDOSIS Amb Documentation HYPOTENSION, DIZZINESS, SYNCOPE? Reason for Visit Coronary artery dise ase Diabetes Dyslipidemia Endometrial cancer Hypertension Nonischemic cardiomyopathy Obesity Acute dehydration Acute hypotension Acute kidney injury Sepsis Coronary artery disease Diabetes Dyslipidemia Endometrial cancer Hypotension (arterial) Nonischemic cardiomyopathy Obesity CKD (chronic kidney disease) stage 3, GFR 30-59 ml/min Hypotension (arterial) Urinary tract infection Chief Complaint ABN EKG (MASCI) UROSEPSIS UROSEPSIS UROSEPSIS 6 W FU UTI, HYPOTENSION, CHRONIC KIDNEY DISEASE UTI, HYPOTENSION, LACTIC ACIDOSIS UTI, HYPOTENSION, LACTIC ACIDOSIS UTI, HYPOTENSION, LACTIC ACIDOSIS Amb Documentation HYPOTENSION, DIZZINESS, SYNCOPE? HYPOTENSION, DIZZINESS, SYNCOPE? Reason for Visit Coronary artery dise ase Diabetes Dyslipidemia Endometrial cancer Hypertension Nonischemic cardiomyopathy Obesity Acute kidney injury Acute dehydration Acute hypotension Sepsis Coronary artery disease Diabetes Dyslipidemia Endometrial cancer Hypotension (arterial) Nonischemic cardiomyopathy Obesity CKD (chronic kidney disease) stage 3, GFR 30-59 ml/min Hypotension (arterial) Urinary tract infection Acute kidney injury Hypotension (arterial) Nonischemic cardiomyopathy Family History No Family History Records Found Relationship Condition Age at Onset Recorded Date/T perfecto father Myocardial infarction Unknown mother Cardiac disease Unknown Malignant neoplasm of colon Unknown Health Concerns Infection Onset Date Last Indicated Resolved Time COVID-19 Confirmed 03/24/2023 03/24/2023 Infection Onset Date Last Indicated Resolved Time COVID-19 Confirmed 03/24/2023 03/24/2023 8:51 PM EST Summary Purpose Additional Source Comments Source Comments (unrecognize d section and content) In the event this informatio n is protected by the Federal Confidentiality of Alcohol and Drug Abuse Patient Records regulations: The Federal rules restrict any use of the information to criminally investigate or prosecute any alcohol or drug abuse patient.[facility] the event this information is protected by the Federal Confidentiality of Alcohol and Drug Abuse Patient Records regulations: The Federal rules restrict any use of the information to criminally investigate or prosecute any alcohol or drug abuse patient.[facility]In the event this information is protected by the Federal Confidentiality of Alcohol and Drug Abuse Patient Records regulations: The Federal rules restrict any use of the information to criminally investigate or prosecute any alcohol or drug abuse patient.[facility]In the event this information is protected by the Federal Confidentiality of Alcohol and Drug Abuse Patient Records regulations: The Federal rules restrict any use of the information to criminally investigate or prosecute any alcohol or drug abuse patient.[facility]In the event this information is protected by the Federal Confidentiality of Alcohol and Drug Abuse Patient Records regulations: The Federal rules restrict any use of the information to criminally investigate or prosecute any alcohol or drug abuse patient.[facility]In the event this information is protected by the Federal Confidentiality of Alcohol and Drug Abuse Patient Records regulations: The Federal rules restrict any use of the information to criminally investigate or prosecute any alcohol or drug abuse patient.[facility]In the event this information is protected by the Federal Confidentiality of Alcohol and Drug Abuse Patient Records regulations: The Federal rules restrict any use of the information to criminally investigate or prosecute any alcohol or drug abuse patient.[facility] HospitalIn the event this information is protected by the Federal Confidentiality of Alcohol and Drug Abuse Patient Records regulations: The Federal rules restrict any use of the information to criminally investigate or prosecute any alcohol or drug abuse patient.[facility] HospitalIn the event this information is protected by the Federal Confidentiality of Alcohol and Drug Abuse Patient Records regulations: The Federal rules restrict any use of the information to criminally investigate or prosecute any alcohol or drug abuse patient.[facility] HospitalIn the event this information is protected by the Federal Confidentiality of Alcohol and Drug Abuse Patient Records regulations: The Federal rules restrict any use of the information to criminally investigate or prosecute any alcohol or drug abuse patient.[facility] HospitalIn the event this information is protected by the Federal Confidentiality of Alcohol and Drug Abuse Patient Records regulations: The Federal rules restrict any use of the information to criminally investigate or prosecute any alcohol or drug abuse patient.[facility] HospitalIn the event this information is protected by the Federal Confidentiality of Alcohol and Drug Abuse Patient Records regulations: The Federal rules restrict any use of the information to criminally investigate or prosecute any alcohol or drug abuse patient.[facility] HospitalIn the event this information is protected by the Federal Confidentiality of Alcohol and Drug Abuse Patient Records regulations: The Federal rules restrict any use of the information to criminally investigate or prosecute any alcohol or drug abuse patient.[facility] HospitalIn the event this information is protected by the Federal Confidentiality of Alcohol and Drug Abuse Patient Records regulations: The Federal rules restrict any use of the information to criminally investigate or prosecute any alcohol or drug abuse patient.[facility] HospitalIn the event this information is protected by the Federal Confidentiality of Alcohol and Drug Abuse Patient Records regulations: The Federal rules restrict any use of the information to criminally investigate or prosecute any alcohol or drug abuse patient.[facility] HospitalIn the event this information is protected by the Federal Confidentiality of Alcohol and Drug Abuse Patient Records regulations: The Federal rules restrict any use of the information to criminally investigate or prosecute any alcohol or drug abuse patient.[facility] HospitalIn the event this information is protected by the Federal Confidentiality of Alcohol and Drug Abuse Patient Records regulations: The Federal rules restrict any use of the information to criminally investigate or prosecute any alcohol or drug abuse patient.[facility] HospitalIn the event this information is protected by the Federal Confidentiality of Alcohol and Drug Abuse Patient Records regulations: The Federal rules restrict any use of the information to criminally investigate or prosecute any alcohol or drug abuse patient.[facility] HospitalIn the event this information is protected by the Federal Confidentiality of Alcohol and Drug Abuse Patient Records regulations: The Federal rules restrict any use of the information to criminally investigate or prosecute any alcohol or drug abuse patient.[facility] HospitalIn the event this information is protected by the Federal Confidentiality of Alcohol and Drug Abuse Patient Records regulations: The Federal rules restrict any use of the information to criminally investigate or prosecute any alcohol or drug abuse patient.[facility] HospitalIn the event this information is protected by the Federal Confidentiality of Alcohol and Drug Abuse Patient Records regulations: The Federal rules restrict any use of the information to criminally investigate or prosecute any alcohol or drug abuse patient.[facility] HospitalIn the event this information is protected by the Federal Confidentiality of Alcohol and Drug Abuse Patient Records regulations: The Federal rules restrict any use of the information to criminally investigate or prosecute any alcohol or drug abuse patient.[facility] HospitalIn the event this information is protected by the Federal Confidentiality of Alcohol and Drug Abuse Patient Records regulations: The Federal rules restrict any use of the information to criminally investigate or prosecute any alcohol or drug abuse patient.[facility] HospitalIn the event this information is protected by the Federal Confidentiality of Alcohol and Drug Abuse Patient Records regulations: The Federal rules restrict any use of the information to criminally investigate or prosecute any alcohol or drug abuse patient.[facility] HospitalIn the event this information is protected by the Federal Confidentiality of Alcohol and Drug Abuse Patient Records regulations: The Federal rules restrict any use of the information to criminally investigate or prosecute any alcohol or drug abuse patient.[facility] HospitalIn the event this information is protected by the Federal Confidentiality of Alcohol and Drug Abuse Patient Records regulations: The Federal rules restrict any use of the information to criminally investigate or prosecute any alcohol or drug abuse patient.[facility] HospitalIn the event this information is protected by the Federal Confidentiality of Alcohol and Drug Abuse Patient Records regulations: The Federal rules restrict any use of the information to criminally investigate or prosecute any alcohol or drug abuse patient.[facility] HospitalIn the event this information is protected by the Federal Confidentiality of Alcohol and Drug Abuse Patient Records regulations: The Federal rules restrict any use of the information to criminally investigate or prosecute any alcohol or drug abuse patient.[facility] HospitalIn the event this information is protected by the Federal Confidentiality of Alcohol and Drug Abuse Patient Records regulations: The Federal rules restrict any use of the information to criminally investigate or prosecute any alcohol or drug abuse patient.[facility] HospitalIn the event this information is protected by the Federal Confidentiality of Alcohol and Drug Abuse Patient Records regulations: The Federal rules restrict any use of the information to criminally investigate or prosecute any alcohol or drug abuse patient.[facility] HospitalIn the event this information is protected by the Federal Confidentiality of Alcohol and Drug Abuse Patient Records regulations: The Federal rules restrict any use of the information to criminally investigate or prosecute any alcohol or drug abuse patient.[facility] HospitalIn the event this information is protected by the Federal Confidentiality of Alcohol and Drug Abuse Patient Records regulations: The Federal rules restrict any use of the information to criminally investigate or prosecute any alcohol or drug abuse patient.[facility] HospitalIn the event this information is protected by the Federal Confidentiality of Alcohol and Drug Abuse Patient Records regulations: The Federal rules restrict any use of the information to criminally investigate or prosecute any alcohol or drug abuse patient.[facility] HospitalIn the event this information is protected by the Federal Confidentiality of Alcohol and Drug Abuse Patient Records regulations: The Federal rules restrict any use of the information to criminally investigate or prosecute any alcohol or drug abuse patient.[facility] HospitalIn the event this information is protected by the Federal Confidentiality of Alcohol and Drug Abuse Patient Records regulations: The Federal rules restrict any use of the information to criminally investigate or prosecute any alcohol or drug abuse patient.[facility] HospitalIn the event this information is protected by the Federal Confidentiality of Alcohol and Drug Abuse Patient Records regulations: The Federal rules restrict any use of the information to criminally investigate or prosecute any alcohol or drug abuse patient.[facility] HospitalIn the event this information is protected by the Federal Confidentiality of Alcohol and Drug Abuse Patient Records regulations: The Federal rules restrict any use of the information to criminally investigate or prosecute any alcohol or drug abuse patient.[facility] HospitalIn the event this information is protected by the Federal Confidentiality of Alcohol and Drug Abuse Patient Records regulations: The Federal rules restrict any use of the information to criminally investigate or prosecute any alcohol or drug abuse patient.[facility] HospitalIn the event this information is protected by the Federal Confidentiality of Alcohol and Drug Abuse Patient Records regulations: The Federal rules restrict any use of the information to criminally investigate or prosecute any alcohol or drug abuse patient.[facility] HospitalIn the event this information is protected by the Federal Confidentiality of Alcohol and Drug Abuse Patient Records regulations: The Federal rules restrict any use of the information to criminally investigate or prosecute any alcohol or drug abuse patient.[facility] HospitalIn the event this information is protected by the Federal Confidentiality of Alcohol and Drug Abuse Patient Records regulations: The Federal rules restrict any use of the information to criminally investigate or prosecute any alcohol or drug abuse patient.[facility] HospitalIn the event this information is protected by the Federal Confidentiality of Alcohol and Drug Abuse Patient Records regulations: The Federal rules restrict any use of the information to criminally investigate or prosecute any alcohol or drug abuse patient.[facility] HospitalIn the event this information is protected by the Federal Confidentiality of Alcohol and Drug Abuse Patient Records regulations: The Federal rules restrict any use of the information to criminally investigate or prosecute any alcohol or drug abuse patient.[facility] HospitalIn the event this information is protected by the Federal Confidentiality of Alcohol and Drug Abuse Patient Records regulations: The Federal rules restrict any use of the information to criminally investigate or prosecute any alcohol or drug abuse patient.[facility] HospitalIn the event this information is protected by the Federal Confidentiality of Alcohol and Drug Abuse Patient Records regulations: The Federal rules restrict any use of the information to criminally investigate or prosecute any alcohol or drug abuse patient.[facility] HospitalIn the event this information is protected by the Federal Confidentiality of Alcohol and Drug Abuse Patient Records regulations: The Federal rules restrict any use of the information to criminally investigate or prosecute any alcohol or drug abuse patient.[facility] HospitalIn the event this information is protected by the Federal Confidentiality of Alcohol and Drug Abuse Patient Records regulations: The Federal rules restrict any use of the information to criminally investigate or prosecute any alcohol or drug abuse patient.[facility] HospitalIn the event this information is protected by the Federal Confidentiality of Alcohol and Drug Abuse Patient Records regulations: The Federal rules restrict any use of the information to criminally investigate or prosecute any alcohol or drug abuse patient.[facility] HospitalIn the event this information is protected by the Federal Confidentiality of Alcohol and Drug Abuse Patient Records regulations: The Federal rules restrict any use of the information to criminally investigate or prosecute any alcohol or drug abuse patient.[facility] HospitalIn the event this information is protected by the Federal Confidentiality of Alcohol and Drug Abuse Patient Records regulations: The Federal rules restrict any use of the information to criminally investigate or prosecute any alcohol or drug abuse patient.[facility] HospitalIn the event this information is protected by the Federal Confidentiality of Alcohol and Drug Abuse Patient Records regulations: The Federal rules restrict any use of the information to criminally investigate or prosecute any alcohol or drug abuse patient.[facility] HospitalIn the event this information is protected by the Federal Confidentiality of Alcohol and Drug Abuse Patient Records regulations: The Federal rules restrict any use of the information to criminally investigate or prosecute any alcohol or drug abuse patient.[facility] HospitalIn the event this information is protected by the Federal Confidentiality of Alcohol and Drug Abuse Patient Records regulations: The Federal rules restrict any use of the information to criminally investigate or prosecute any alcohol or drug abuse patient.[facility] HospitalIn the event this information is protected by the Federal Confidentiality of Alcohol and Drug Abuse Patient Records regulations: The Federal rules restrict any use of the information to criminally investigate or prosecute any alcohol or drug abuse patient.[facility] HospitalIn the event this information is protected by the Federal Confidentiality of Alcohol and Drug Abuse Patient Records regulations: The Federal rules restrict any use of the information to criminally investigate or prosecute any alcohol or drug abuse patient.[facility] HospitalIn the event this information is protected by the Federal Confidentiality of Alcohol and Drug Abuse Patient Records regulations: The Federal rules restrict any use of the information to criminally investigate or prosecute any alcohol or drug abuse patient.[facility] HospitalIn the event this information is protected by the Federal Confidentiality of Alcohol and Drug Abuse Patient Records regulations: The Federal rules restrict any use of the information to criminally investigate or prosecute any alcohol or drug abuse patient.[facility] HospitalIn the event this information is protected by the Federal Confidentiality of Alcohol and Drug Abuse Patient Records regulations: The Federal rules restrict any use of the information to criminally investigate or prosecute any alcohol or drug abuse patient.[facility] HospitalIn the event this information is protected by the Federal Confidentiality of Alcohol and Drug Abuse Patient Records regulations: The Federal rules restrict any use of the information to criminally investigate or prosecute any alcohol or drug abuse patient.[facility] HospitalIn the event this information is protected by the Federal Confidentiality of Alcohol and Drug Abuse Patient Records regulations: The Federal rules restrict any use of the information to criminally investigate or prosecute any alcohol or drug abuse patient.[facility] HospitalIn the event this information is protected by the Federal Confidentiality of Alcohol and Drug Abuse Patient Records regulations: The Federal rules restrict any use of the information to criminally investigate or prosecute any alcohol or drug abuse patient.[facility] HospitalIn the event this information is protected by the Federal Confidentiality of Alcohol and Drug Abuse Patient Records regulations: The Federal rules restrict any use of the information to criminally investigate or prosecute any alcohol or drug abuse patient.[facility] HospitalIn the event this information is protected by the Federal Confidentiality of Alcohol and Drug Abuse Patient Records regulations: The Federal rules restrict any use of the information to criminally investigate or prosecute any alcohol or drug abuse patient.[facility] HospitalIn the event this information is protected by the Federal Confidentiality of Alcohol and Drug Abuse Patient Records regulations: The Federal rules restrict any use of the information to criminally investigate or prosecute any alcohol or drug abuse patient.[facility] HospitalIn the event this information is protected by the Federal Confidentiality of Alcohol and Drug Abuse Patient Records regulations: The Federal rules restrict any use of the information to criminally investigate or prosecute any alcohol or drug abuse patient.[facility] HospitalIn the event this information is protected by the Federal Confidentiality of Alcohol and Drug Abuse Patient Records regulations: The Federal rules restrict any use of the information to criminally investigate or prosecute any alcohol or drug abuse patient.[facility] HospitalIn the event this information is protected by the Federal Confidentiality of Alcohol and Drug Abuse Patient Records regulations: The Federal rules restrict any use of the information to criminally investigate or prosecute any alcohol or drug abuse patient.[facility] HospitalIn the event this information is protected by the Federal Confidentiality of Alcohol and Drug Abuse Patient Records regulations: The Federal rules restrict any use of the information to criminally investigate or prosecute any alcohol or drug abuse patient.[facility] HospitalIn the event this information is protected by the Federal Confidentiality of Alcohol and Drug Abuse Patient Records regulations: The Federal rules restrict any use of the information to criminally investigate or prosecute any alcohol or drug abuse patient.[facility] HospitalIn the event this information is protected by the Federal Confidentiality of Alcohol and Drug Abuse Patient Records regulations: The Federal rules restrict any use of the information to criminally investigate or prosecute any alcohol or drug abuse patient.[facility] HospitalIn the event this information is protected by the Federal Confidentiality of Alcohol and Drug Abuse Patient Records regulations: The Federal rules restrict any use of the information to criminally investigate or prosecute any alcohol or drug abuse patient.[facility] HospitalIn the event this information is protected by the Federal Confidentiality of Alcohol and Drug Abuse Patient Records regulations: The Federal rules restrict any use of the information to criminally investigate or prosecute any alcohol or drug abuse patient.[facility] HospitalIn the event this information is protected by the Federal Confidentiality of Alcohol and Drug Abuse Patient Records regulations: The Federal rules restrict any use of the information to criminally investigate or prosecute any alcohol or drug abuse patient.[facility] HospitalIn the event this information is protected by the Federal Confidentiality of Alcohol and Drug Abuse Patient Records regulations: The Federal rules restrict any use of the information to criminally investigate or prosecute any alcohol or drug abuse patient.[facility] HospitalIn the event this information is protected by the Federal Confidentiality of Alcohol and Drug Abuse Patient Records regulations: The Federal rules restrict any use of the information to criminally investigate or prosecute any alcohol or drug abuse patient.[facility] HospitalIn the event this information is protected by the Federal Confidentiality of Alcohol and Drug Abuse Patient Records regulations: The Federal rules restrict any use of the information to criminally investigate or prosecute any alcohol or drug abuse patient.[facility] HospitalIn the event this information is protected by the Federal Confidentiality of Alcohol and Drug Abuse Patient Records regulations: The Federal rules restrict any use of the information to criminally investigate or prosecute any alcohol or drug abuse patient.[facility] HospitalIn the event this information is protected by the Federal Confidentiality of Alcohol and Drug Abuse Patient Records regulations: The Federal rules restrict any use of the information to criminally investigate or prosecute any alcohol or drug abuse patient.[facility] HospitalIn the event this information is protected by the Federal Confidentiality of Alcohol and Drug Abuse Patient Records regulations: The Federal rules restrict any use of the information to criminally investigate or prosecute any alcohol or drug abuse patient.[facility] HospitalIn the event this information is protected by the Federal Confidentiality of Alcohol and Drug Abuse Patient Records regulations: The Federal rules restrict any use of the information to criminally investigate or prosecute any alcohol or drug abuse patient.[facility] HospitalIn the event this information is protected by the Federal Confidentiality of Alcohol and Drug Abuse Patient Records regulations: The Federal rules restrict any use of the information to criminally investigate or prosecute any alcohol or drug abuse patient.[facility] HospitalIn the event this information is protected by the Federal Confidentiality of Alcohol and Drug Abuse Patient Records regulations: The Federal rules restrict any use of the information to criminally investigate or prosecute any alcohol or drug abuse patient.[facility] HospitalIn the event this information is protected by the Federal Confidentiality of Alcohol and Drug Abuse Patient Records regulations: The Federal rules restrict any use of the information to criminally investigate or prosecute any alcohol or drug abuse patient.[facility] HospitalIn the event this information is protected by the Federal Confidentiality of Alcohol and Drug Abuse Patient Records regulations: The Federal rules restrict any use of the information to criminally investigate or prosecute any alcohol or drug abuse patient.[facility] HospitalIn the event this information is protected by the Federal Confidentiality of Alcohol and Drug Abuse Patient Records regulations: The Federal rules restrict any use of the information to criminally investigate or prosecute any alcohol or drug abuse patient.[facility] HospitalIn the event this information is protected by the Federal Confidentiality of Alcohol and Drug Abuse Patient Records regulations: The Federal rules restrict any use of the information to criminally investigate or prosecute any alcohol or drug abuse patient.[facility] HospitalIn the event this information is protected by the Federal Confidentiality of Alcohol and Drug Abuse Patient Records regulations: The Federal rules restrict any use of the information to criminally investigate or prosecute any alcohol or drug abuse patient.[facility] HospitalIn the event this information is protected by the Federal Confidentiality of Alcohol and Drug Abuse Patient Records regulations: The Federal rules restrict any use of the information to criminally investigate or prosecute any alcohol or drug abuse patient.[facility] HospitalIn the event this information is protected by the Federal Confidentiality of Alcohol and Drug Abuse Patient Records regulations: The Federal rules restrict any use of the information to criminally investigate or prosecute any alcohol or drug abuse patient.[facility] HospitalIn the event this information is protected by the Federal Confidentiality of Alcohol and Drug Abuse Patient Records regulations: The Federal rules restrict any use of the information to criminally investigate or prosecute any alcohol or drug abuse patient.[facility] HospitalIn the event this information is protected by the Federal Confidentiality of Alcohol and Drug Abuse Patient Records regulations: The Federal rules restrict any use of the information to criminally investigate or prosecute any alcohol or drug abuse patient.[facility] HospitalIn the event this information is protected by the Federal Confidentiality of Alcohol and Drug Abuse Patient Records regulations: The Federal rules restrict any use of the information to criminally investigate or prosecute any alcohol or drug abuse patient.[facility] HospitalIn the event this information is protected by the Federal Confidentiality of Alcohol and Drug Abuse Patient Records regulations: The Federal rules restrict any use of the information to criminally investigate or prosecute any alcohol or drug abuse patient.[facility] HospitalIn the event this information is protected by the Federal Confidentiality of Alcohol and Drug Abuse Patient Records regulations: The Federal rules restrict any use of the information to criminally investigate or prosecute any alcohol or drug abuse patient.[facility] HospitalIn the event this information is protected by the Federal Confidentiality of Alcohol and Drug Abuse Patient Records regulations: The Federal rules restrict any use of the information to criminally investigate or prosecute any alcohol or drug abuse patient.[facility] HospitalIn the event this information is protected by the Federal Confidentiality of Alcohol and Drug Abuse Patient Records regulations: The Federal rules restrict any use of the information to criminally investigate or prosecute any alcohol or drug abuse patient.[facility] HospitalIn the event this information is protected by the Federal Confidentiality of Alcohol and Drug Abuse Patient Records regulations: The Federal rules restrict any use of the information to criminally investigate or prosecute any alcohol or drug abuse patient.[facility] HospitalIn the event this information is protected by the Federal Confidentiality of Alcohol and Drug Abuse Patient Records regulations: The Federal rules restrict any use of the information to criminally investigate or prosecute any alcohol or drug abuse patient.[facility] HospitalIn the event this information is protected by the Federal Confidentiality of Alcohol and Drug Abuse Patient Records regulations: The Federal rules restrict any use of the information to criminally investigate or prosecute any alcohol or drug abuse patient.[facility] HospitalIn the event this information is protected by the Federal Confidentiality of Alcohol and Drug Abuse Patient Records regulations: The Federal rules restrict any use of the information to criminally investigate or prosecute any alcohol or drug abuse patient.[facility] HospitalIn the event this information is protected by the Federal Confidentiality of Alcohol and Drug Abuse Patient Records regulations: The Federal rules restrict any use of the information to criminally investigate or prosecute any alcohol or drug abuse patient.[facility] HospitalIn the event this information is protected by the Federal Confidentiality of Alcohol and Drug Abuse Patient Records regulations: The Federal rules restrict any use of the information to criminally investigate or prosecute any alcohol or drug abuse patient.[facility] HospitalIn the event this information is protected by the Federal Confidentiality of Alcohol and Drug Abuse Patient Records regulations: The Federal rules restrict any use of the information to criminally investigate or prosecute any alcohol or drug abuse patient.[facility] HospitalIn the event this information is protected by the Federal Confidentiality of Alcohol and Drug Abuse Patient Records regulations: The Federal rules restrict any use of the information to criminally investigate or prosecute any alcohol or drug abuse patient.[facility] HospitalIn the event this information is protected by the Federal Confidentiality of Alcohol and Drug Abuse Patient Records regulations: The Federal rules restrict any use of the information to criminally investigate or prosecute any alcohol or drug abuse patient.[facility] HospitalIn the event this information is protected by the Federal Confidentiality of Alcohol and Drug Abuse Patient Records regulations: The Federal rules restrict any use of the information to criminally investigate or prosecute any alcohol or drug abuse patient.[facility] HospitalIn the event this information is protected by the Federal Confidentiality of Alcohol and Drug Abuse Patient Records regulations: The Federal rules restrict any use of the information to criminally investigate or prosecute any alcohol or drug abuse patient.[facility] HospitalIn the event this information is protected by the Federal Confidentiality of Alcohol and Drug Abuse Patient Records regulations: The Federal rules restrict any use of the information to criminally investigate or prosecute any alcohol or drug abuse patient.[facility] HospitalIn the event this information is protected by the Federal Confidentiality of Alcohol and Drug Abuse Patient Records regulations: The Federal rules restrict any use of the information to criminally investigate or prosecute any alcohol or drug abuse patient.[facility] HospitalIn the event this information is protected by the Federal Confidentiality of Alcohol and Drug Abuse Patient Records regulations: The Federal rules restrict any use of the information to criminally investigate or prosecute any alcohol or drug abuse patient.[facility] HospitalIn the event this information is protected by the Federal Confidentiality of Alcohol and Drug Abuse Patient Records regulations: The Federal rules restrict any use of the information to criminally investigate or prosecute any alcohol or drug abuse patient.[facility] HospitalIn the event this information is protected by the Federal Confidentiality of Alcohol and Drug Abuse Patient Records regulations: The Federal rules restrict any use of the information to criminally investigate or prosecute any alcohol or drug abuse patient.[facility] HospitalIn the event this information is protected by the Federal Confidentiality of Alcohol and Drug Abuse Patient Records regulations: The Federal rules restrict any use of the information to criminally investigate or prosecute any alcohol or drug abuse patient.[facility] HospitalIn the event this information is protected by the Federal Confidentiality of Alcohol and Drug Abuse Patient Records regulations: The Federal rules restrict any use of the information to criminally investigate or prosecute any alcohol or drug abuse patient.[facility] HospitalIn the event this information is protected by the Federal Confidentiality of Alcohol and Drug Abuse Patient Records regulations: The Federal rules restrict any use of the information to criminally investigate or prosecute any alcohol or drug abuse patient.[facility] HospitalIn the event this information is protected by the Federal Confidentiality of Alcohol and Drug Abuse Patient Records regulations: The Federal rules restrict any use of the information to criminally investigate or prosecute any alcohol or drug abuse patient.[facility] HospitalIn the event this information is protected by the Federal Confidentiality of Alcohol and Drug Abuse Patient Records regulations: The Federal rules restrict any use of the information to criminally investigate or prosecute any alcohol or drug abuse patient.[facility] HospitalIn the event this information is protected by the Federal Confidentiality of Alcohol and Drug Abuse Patient Records regulations: The Federal rules restrict any use of the information to criminally investigate or prosecute any alcohol or drug abuse patient.[facility] HospitalIn the event this information is protected by the Federal Confidentiality of Alcohol and Drug Abuse Patient Records regulations: The Federal rules restrict any use of the information to criminally investigate or prosecute any alcohol or drug abuse patient.[facility] HospitalIn the event this information is protected by the Federal Confidentiality of Alcohol and Drug Abuse Patient Records regulations: The Federal rules restrict any use of the information to criminally investigate or prosecute any alcohol or drug abuse patient.[facility] HospitalIn the event this information is protected by the Federal Confidentiality of Alcohol and Drug Abuse Patient Records regulations: The Federal rules restrict any use of the information to criminally investigate or prosecute any alcohol or drug abuse patient.[facility] HospitalIn the event this information is protected by the Federal Confidentiality of Alcohol and Drug Abuse Patient Records regulations: The Federal rules restrict any use of the information to criminally investigate or prosecute any alcohol or drug abuse patient.[facility] HospitalIn the event this information is protected by the Federal Confidentiality of Alcohol and Drug Abuse Patient Records regulations: The Federal rules restrict any use of the information to criminally investigate or prosecute any alcohol or drug abuse patient.[facility] HospitalIn the event this information is protected by the Federal Confidentiality of Alcohol and Drug Abuse Patient Records regulations: The Federal rules restrict any use of the information to criminally investigate or prosecute any alcohol or drug abuse patient.[facility] HospitalIn the event this information is protected by the Federal Confidentiality of Alcohol and Drug Abuse Patient Records regulations: The Federal rules restrict any use of the information to criminally investigate or prosecute any alcohol or drug abuse patient.[facility] HospitalIn the event this information is protected by the Federal Confidentiality of Alcohol and Drug Abuse Patient Records regulations: The Federal rules restrict any use of the information to criminally investigate or prosecute any alcohol or drug abuse patient.[facility] HospitalIn the event this information is protected by the Federal Confidentiality of Alcohol and Drug Abuse Patient Records regulations: The Federal rules restrict any use of the information to criminally investigate or prosecute any alcohol or drug abuse patient.[facility] HospitalIn the event this information is protected by the Federal Confidentiality of Alcohol and Drug Abuse Patient Records regulations: The Federal rules restrict any use of the information to criminally investigate or prosecute any alcohol or drug abuse patient.[facility] HospitalIn the event this information is protected by the Federal Confidentiality of Alcohol and Drug Abuse Patient Records regulations: The Federal rules restrict any use of the information to criminally investigate or prosecute any alcohol or drug abuse patient.[facility] HospitalIn the event this information is protected by the Federal Confidentiality of Alcohol and Drug Abuse Patient Records regulations: The Federal rules restrict any use of the information to criminally investigate or prosecute any alcohol or drug abuse patient.[facility] HospitalIn the event this information is protected by the Federal Confidentiality of Alcohol and Drug Abuse Patient Records regulations: The Federal rules restrict any use of the information to criminally investigate or prosecute any alcohol or drug abuse patient.[facility] HospitalIn the event this information is protected by the Federal Confidentiality of Alcohol and Drug Abuse Patient Records regulations: The Federal rules restrict any use of the information to criminally investigate or prosecute any alcohol or drug abuse patient.[facility] HospitalIn the event this information is protected by the Federal Confidentiality of Alcohol and Drug Abuse Patient Records regulations: The Federal rules restrict any use of the information to criminally investigate or prosecute any alcohol or drug abuse patient.[facility] HospitalIn the event this information is protected by the Federal Confidentiality of Alcohol and Drug Abuse Patient Records regulations: The Federal rules restrict any use of the information to criminally investigate or prosecute any alcohol or drug abuse patient.[facility] HospitalIn the event this information is protected by the Federal Confidentiality of Alcohol and Drug Abuse Patient Records regulations: The Federal rules restrict any use of the information to criminally investigate or prosecute any alcohol or drug abuse patient.[facility] HospitalIn the event this information is protected by the Federal Confidentiality of Alcohol and Drug Abuse Patient Records regulations: The Federal rules restrict any use of the information to criminally investigate or prosecute any alcohol or drug abuse patient.[facility] HospitalIn the event this information is protected by the Federal Confidentiality of Alcohol and Drug Abuse Patient Records regulations: The Federal rules restrict any use of the information to criminally investigate or prosecute any alcohol or drug abuse patient.[facility] HospitalIn the event this information is protected by the Federal Confidentiality of Alcohol and Drug Abuse Patient Records regulations: The Federal rules restrict any use of the information to criminally investigate or prosecute any alcohol or drug abuse patient.[facility] HospitalIn the event this information is protected by the Federal Confidentiality of Alcohol and Drug Abuse Patient Records regulations: The Federal rules restrict any use of the information to criminally investigate or prosecute any alcohol or drug abuse patient.[facility] HospitalIn the event this information is protected by the Federal Confidentiality of Alcohol and Drug Abuse Patient Records regulations: The Federal rules restrict any use of the information to criminally investigate or prosecute any alcohol or drug abuse patient.[facility] HospitalIn the event this information is protected by the Federal Confidentiality of Alcohol and Drug Abuse Patient Records regulations: The Federal rules restrict any use of the information to criminally investigate or prosecute any alcohol or drug abuse patient.[facility] HospitalIn the event this information is protected by the Federal Confidentiality of Alcohol and Drug Abuse Patient Records regulations: The Federal rules restrict any use of the information to criminally investigate or prosecute any alcohol or drug abuse patient.[facility] HospitalIn the event this information is protected by the Federal Confidentiality of Alcohol and Drug Abuse Patient Records regulations: The Federal rules restrict any use of the information to criminally investigate or prosecute any alcohol or drug abuse patient.[facility] HospitalIn the event this information is protected by the Federal Confidentiality of Alcohol and Drug Abuse Patient Records regulations: The Federal rules restrict any use of the information to criminally investigate or prosecute any alcohol or drug abuse patient.[facility] HospitalIn the event this information is protected by the Federal Confidentiality of Alcohol and Drug Abuse Patient Records regulations: The Federal rules restrict any use of the information to criminally investigate or prosecute any alcohol or drug abuse patient.[facility] HospitalIn the event this information is protected by the Federal Confidentiality of Alcohol and Drug Abuse Patient Records regulations: The Federal rules restrict any use of the information to criminally investigate or prosecute any alcohol or drug abuse patient.[facility] HospitalIn the event this information is protected by the Federal Confidentiality of Alcohol and Drug Abuse Patient Records regulations: The Federal rules restrict any use of the information to criminally investigate or prosecute any alcohol or drug abuse patient.[facility] HospitalIn the event this information is protected by the Federal Confidentiality of Alcohol and Drug Abuse Patient Records regulations: The Federal rules restrict any use of the information to criminally investigate or prosecute any alcohol or drug abuse patient.[facility] HospitalIn the event this information is protected by the Federal Confidentiality of Alcohol and Drug Abuse Patient Records regulations: The Federal rules restrict any use of the information to criminally investigate or prosecute any alcohol or drug abuse patient.[facility] HospitalIn the event this information is protected by the Federal Confidentiality of Alcohol and Drug Abuse Patient Records regulations: The Federal rules restrict any use of the information to criminally investigate or prosecute any alcohol or drug abuse patient.[facility] HospitalIn the event this information is protected by the Federal Confidentiality of Alcohol and Drug Abuse Patient Records regulations: The Federal rules restrict any use of the information to criminally investigate or prosecute any alcohol or drug abuse patient.[facility] HospitalIn the event this information is protected by the Federal Confidentiality of Alcohol and Drug Abuse Patient Records regulations: The Federal rules restrict any use of the information to criminally investigate or prosecute any alcohol or drug abuse patient.[facility] HospitalIn the event this information is protected by the Federal Confidentiality of Alcohol and Drug Abuse Patient Records regulations: The Federal rules restrict any use of the information to criminally investigate or prosecute any alcohol or drug abuse patient.[facility] HospitalIn the event this information is protected by the Federal Confidentiality of Alcohol and Drug Abuse Patient Records regulations: The Federal rules restrict any use of the information to criminally investigate or prosecute any alcohol or drug abuse patient.[facility] HospitalIn the event this information is protected by the Federal Confidentiality of Alcohol and Drug Abuse Patient Records regulations: The Federal rules restrict any use of the information to criminally investigate or prosecute any alcohol or drug abuse patient.[facility] HospitalIn the event this information is protected by the Federal Confidentiality of Alcohol and Drug Abuse Patient Records regulations: The Federal rules restrict any use of the information to criminally investigate or prosecute any alcohol or drug abuse patient.[facility] HospitalIn the event this information is protected by the Federal Confidentiality of Alcohol and Drug Abuse Patient Records regulations: The Federal rules restrict any use of the information to criminally investigate or prosecute any alcohol or drug abuse patient.[facility] HospitalIn the event this information is protected by the Federal Confidentiality of Alcohol and Drug Abuse Patient Records regulations: The Federal rules restrict any use of the information to criminally investigate or prosecute any alcohol or drug abuse patient.[facility] HospitalIn the event this information is protected by the Federal Confidentiality of Alcohol and Drug Abuse Patient Records regulations: The Federal rules restrict any use of the information to criminally investigate or prosecute any alcohol or drug abuse patient.[facility] HospitalIn the event this information is protected by the Federal Confidentiality of Alcohol and Drug Abuse Patient Records regulations: The Federal rules restrict any use of the information to criminally investigate or prosecute any alcohol or drug abuse patient.[facility] HospitalIn the event this information is protected by the Federal Confidentiality of Alcohol and Drug Abuse Patient Records regulations: The Federal rules restrict any use of the information to criminally investigate or prosecute any alcohol or drug abuse patient.[facility] HospitalIn the event this information is protected by the Federal Confidentiality of Alcohol and Drug Abuse Patient Records regulations: The Federal rules restrict any use of the information to criminally investigate or prosecute any alcohol or drug abuse patient.[facility] HospitalIn the event this information is protected by the Federal Confidentiality of Alcohol and Drug Abuse Patient Records regulations: The Federal rules restrict any use of the information to criminally investigate or prosecute any alcohol or drug abuse patient.[facility] HospitalIn the event this information is protected by the Federal Confidentiality of Alcohol and Drug Abuse Patient Records regulations: The Federal rules restrict any use of the information to criminally investigate or prosecute any alcohol or drug abuse patient.[facility] HospitalIn the event this information is protected by the Federal Confidentiality of Alcohol and Drug Abuse Patient Records regulations: The Federal rules restrict any use of the information to criminally investigate or prosecute any alcohol or drug abuse patient.[facility] HospitalIn the event this information is protected by the Federal Confidentiality of Alcohol and Drug Abuse Patient Records regulations: The Federal rules restrict any use of the information to criminally investigate or prosecute any alcohol or drug abuse patient.[facility] HospitalIn the event this information is protected by the Federal Confidentiality of Alcohol and Drug Abuse Patient Records regulations: The Federal rules restrict any use of the information to criminally investigate or prosecute any alcohol or drug abuse patient.[facility] HospitalIn the event this information is protected by the Federal Confidentiality of Alcohol and Drug Abuse Patient Records regulations: The Federal rules restrict any use of the information to criminally investigate or prosecute any alcohol or drug abuse patient.[facility] HospitalIn the event this information is protected by the Federal Confidentiality of Alcohol and Drug Abuse Patient Records regulations: The Federal rules restrict any use of the information to criminally investigate or prosecute any alcohol or drug abuse patient.[facility] HospitalIn the event this information is protected by the Federal Confidentiality of Alcohol and Drug Abuse Patient Records regulations: The Federal rules restrict any use of the information to criminally investigate or prosecute any alcohol or drug abuse patient.[facility] HospitalIn the event this information is protected by the Federal Confidentiality of Alcohol and Drug Abuse Patient Records regulations: The Federal rules restrict any use of the information to criminally investigate or prosecute any alcohol or drug abuse patient.[facility] HospitalIn the event this information is protected by the Federal Confidentiality of Alcohol and Drug Abuse Patient Records regulations: The Federal rules restrict any use of the information to criminally investigate or prosecute any alcohol or drug abuse patient.[facility] HospitalIn the event this information is protected by the Federal Confidentiality of Alcohol and Drug Abuse Patient Records regulations: The Federal rules restrict any use of the information to criminally investigate or prosecute any alcohol or drug abuse patient.[facility] HospitalIn the event this information is protected by the Federal Confidentiality of Alcohol and Drug Abuse Patient Records regulations: The Federal rules restrict any use of the information to criminally investigate or prosecute any alcohol or drug abuse patient.[facility] HospitalIn the event this information is protected by the Federal Confidentiality of Alcohol and Drug Abuse Patient Records regulations: The Federal rules restrict any use of the information to criminally investigate or prosecute any alcohol or drug abuse patient.[facility] HospitalIn the event this information is protected by the Federal Confidentiality of Alcohol and Drug Abuse Patient Records regulations: The Federal rules restrict any use of the information to criminally investigate or prosecute any alcohol or drug abuse patient.[facility] HospitalIn the event this information is protected by the Federal Confidentiality of Alcohol and Drug Abuse Patient Records regulations: The Federal rules restrict any use of the information to criminally investigate or prosecute any alcohol or drug abuse patient.[facility] HospitalIn the event this information is protected by the Federal Confidentiality of Alcohol and Drug Abuse Patient Records regulations: The Federal rules restrict any use of the information to criminally investigate or prosecute any alcohol or drug abuse patient.[facility] HospitalIn the event this information is protected by the Federal Confidentiality of Alcohol and Drug Abuse Patient Records regulations: The Federal rules restrict any use of the information to criminally investigate or prosecute any alcohol or drug abuse patient.[facility] HospitalIn the event this information is protected by the Federal Confidentiality of Alcohol and Drug Abuse Patient Records regulations: The Federal rules restrict any use of the information to criminally investigate or prosecute any alcohol or drug abuse patient.[facility] HospitalIn the event this information is protected by the Federal Confidentiality of Alcohol and Drug Abuse Patient Records regulations: The Federal rules restrict any use of the information to criminally investigate or prosecute any alcohol or drug abuse patient.[facility] HospitalIn the event this information is protected by the Federal Confidentiality of Alcohol and Drug Abuse Patient Records regulations: The Federal rules restrict any use of the information to criminally investigate or prosecute any alcohol or drug abuse patient.[facility] HospitalIn the event this information is protected by the Federal Confidentiality of Alcohol and Drug Abuse Patient Records regulations: The Federal rules restrict any use of the information to criminally investigate or prosecute any alcohol or drug abuse patient.[facility] HospitalIn the event this information is protected by the Federal Confidentiality of Alcohol and Drug Abuse Patient Records regulations: The Federal rules restrict any use of the information to criminally investigate or prosecute any alcohol or drug abuse patient.[facility] HospitalIn the event this information is protected by the Federal Confidentiality of Alcohol and Drug Abuse Patient Records regulations: The Federal rules restrict any use of the information to criminally investigate or prosecute any alcohol or drug abuse patient.[facility] HospitalIn the event this information is protected by the Federal Confidentiality of Alcohol and Drug Abuse Patient Records regulations: The Federal rules restrict any use of the information to criminally investigate or prosecute any alcohol or drug abuse patient.[facility] HospitalIn the event this information is protected by the Federal Confidentiality of Alcohol and Drug Abuse Patient Records regulations: The Federal rules restrict any use of the information to criminally investigate or prosecute any alcohol or drug abuse patient.[facility] HospitalIn the event this information is protected by the Federal Confidentiality of Alcohol and Drug Abuse Patient Records regulations: The Federal rules restrict any use of the information to criminally investigate or prosecute any alcohol or drug abuse patient.[facility] HospitalIn the event this information is protected by the Federal Confidentiality of Alcohol and Drug Abuse Patient Records regulations: The Federal rules restrict any use of the information to criminally investigate or prosecute any alcohol or drug abuse patient.[facility] HospitalIn the event this information is protected by the Federal Confidentiality of Alcohol and Drug Abuse Patient Records regulations: The Federal rules restrict any use of the information to criminally investigate or prosecute any alcohol or drug abuse patient.[facility] HospitalIn the event this information is protected by the Federal Confidentiality of Alcohol and Drug Abuse Patient Records regulations: The Federal rules restrict any use of the information to criminally investigate or prosecute any alcohol or drug abuse patient.[facility] HospitalIn the event this information is protected by the Federal Confidentiality of Alcohol and Drug Abuse Patient Records regulations: The Federal rules restrict any use of the information to criminally investigate or prosecute any alcohol or drug abuse patient.[facility] HospitalIn the event this information is protected by the Federal Confidentiality of Alcohol and Drug Abuse Patient Records regulations: The Federal rules restrict any use of the information to criminally investigate or prosecute any alcohol or drug abuse patient.[facility] HospitalIn the event this information is protected by the Federal Confidentiality of Alcohol and Drug Abuse Patient Records regulations: The Federal rules restrict any use of the information to criminally investigate or prosecute any alcohol or drug abuse patient.[facility] HospitalIn the event this information is protected by the Federal Confidentiality of Alcohol and Drug Abuse Patient Records regulations: The Federal rules restrict any use of the information to criminally investigate or prosecute any alcohol or drug abuse patient.[facility] HospitalIn the event this information is protected by the Federal Confidentiality of Alcohol and Drug Abuse Patient Records regulations: The Federal rules restrict any use of the information to criminally investigate or prosecute any alcohol or drug abuse patient.[facility] HospitalIn the event this information is protected by the Federal Confidentiality of Alcohol and Drug Abuse Patient Records regulations: The Federal rules restrict any use of the information to criminally investigate or prosecute any alcohol or drug abuse patient.[facility] HospitalIn the event this information is protected by the Federal Confidentiality of Alcohol and Drug Abuse Patient Records regulations: The Federal rules restrict any use of the information to criminally investigate or prosecute any alcohol or drug abuse patient.[facility] HospitalIn the event this information is protected by the Federal Confidentiality of Alcohol and Drug Abuse Patient Records regulations: The Federal rules restrict any use of the information to criminally investigate or prosecute any alcohol or drug abuse patient.[facility] HospitalIn the event this information is protected by the Federal Confidentiality of Alcohol and Drug Abuse Patient Records regulations: The Federal rules restrict any use of the information to criminally investigate or prosecute any alcohol or drug abuse patient.[facility] HospitalIn the event this information is protected by the Federal Confidentiality of Alcohol and Drug Abuse Patient Records regulations: The Federal rules restrict any use of the information to criminally investigate or prosecute any alcohol or drug abuse patient.[facility] HospitalIn the event this information is protected by the Federal Confidentiality of Alcohol and Drug Abuse Patient Records regulations: The Federal rules restrict any use of the information to criminally investigate or prosecute any alcohol or drug abuse patient.[facility] HospitalIn the event this information is protected by the Federal Confidentiality of Alcohol and Drug Abuse Patient Records regulations: The Federal rules restrict any use of the information to criminally investigate or prosecute any alcohol or drug abuse patient.[facility] HospitalIn the event this information is protected by the Federal Confidentiality of Alcohol and Drug Abuse Patient Records regulations: The Federal rules restrict any use of the information to criminally investigate or prosecute any alcohol or drug abuse patient.[facility] HospitalIn the event this information is protected by the Federal Confidentiality of Alcohol and Drug Abuse Patient Records regulations: The Federal rules restrict any use of the information to criminally investigate or prosecute any alcohol or drug abuse patient.[facility] HospitalIn the event this information is protected by the Federal Confidentiality of Alcohol and Drug Abuse Patient Records regulations: The Federal rules restrict any use of the information to criminally investigate or prosecute any alcohol or drug abuse patient.[facility] HospitalIn the event this information is protected by the Federal Confidentiality of Alcohol and Drug Abuse Patient Records regulations: The Federal rules restrict any use of the information to criminally investigate or prosecute any alcohol or drug abuse patient.[facility] HospitalIn the event this information is protected by the Federal Confidentiality of Alcohol and Drug Abuse Patient Records regulations: The Federal rules restrict any use of the information to criminally investigate or prosecute any alcohol or drug abuse patient.[facility] HospitalIn the event this information is protected by the Federal Confidentiality of Alcohol and Drug Abuse Patient Records regulations: The Federal rules restrict any use of the information to criminally investigate or prosecute any alcohol or drug abuse patient.[facility] HospitalIn the event this information is protected by the Federal Confidentiality of Alcohol and Drug Abuse Patient Records regulations: The Federal rules restrict any use of the information to criminally investigate or prosecute any alcohol or drug abuse patient.[facility] HospitalIn the event this information is protected by the Federal Confidentiality of Alcohol and Drug Abuse Patient Records regulations: The Federal rules restrict any use of the information to criminally investigate or prosecute any alcohol or drug abuse patient.[facility] HospitalIn the event this information is protected by the Federal Confidentiality of Alcohol and Drug Abuse Patient Records regulations: The Federal rules restrict any use of the information to criminally investigate or prosecute any alcohol or drug abuse patient.[facility] HospitalIn the event this information is protected by the Federal Confidentiality of Alcohol and Drug Abuse Patient Records regulations: The Federal rules restrict any use of the information to criminally investigate or prosecute any alcohol or drug abuse patient.[facility] HospitalIn the event this information is protected by the Federal Confidentiality of Alcohol and Drug Abuse Patient Records regulations: The Federal rules restrict any use of the information to criminally investigate or prosecute any alcohol or drug abuse patient.[facility] HospitalIn the event this information is protected by the Federal Confidentiality of Alcohol and Drug Abuse Patient Records regulations: The Federal rules restrict any use of the information to criminally investigate or prosecute any alcohol or drug abuse patient.[facility] HospitalIn the event this information is protected by the Federal Confidentiality of Alcohol and Drug Abuse Patient Records regulations: The Federal rules restrict any use of the information to criminally investigate or prosecute any alcohol or drug abuse patient.[facility] HospitalIn the event this information is protected by the Federal Confidentiality of Alcohol and Drug Abuse Patient Records regulations: The Federal rules restrict any use of the information to criminally investigate or prosecute any alcohol or drug abuse patient.[facility] HospitalIn the event this information is protected by the Federal Confidentiality of Alcohol and Drug Abuse Patient Records regulations: The Federal rules restrict any use of the information to criminally investigate or prosecute any alcohol or drug abuse patient.[facility] HospitalIn the event this information is protected by the Federal Confidentiality of Alcohol and Drug Abuse Patient Records regulations: The Federal rules restrict any use of the information to criminally investigate or prosecute any alcohol or drug abuse patient.[facility] HospitalIn the event this information is protected by the Federal Confidentiality of Alcohol and Drug Abuse Patient Records regulations: The Federal rules restrict any use of the information to criminally investigate or prosecute any alcohol or drug abuse patient.[facility] HospitalIn the event this information is protected by the Federal Confidentiality of Alcohol and Drug Abuse Patient Records regulations: The Federal rules restrict any use of the information to criminally investigate or prosecute any alcohol or drug abuse patient.[facility] HospitalIn the event this information is protected by the Federal Confidentiality of Alcohol and Drug Abuse Patient Records regulations: The Federal rules restrict any use of the information to criminally investigate or prosecute any alcohol or drug abuse patient.[facility] HospitalIn the event this information is protected by the Federal Confidentiality of Alcohol and Drug Abuse Patient Records regulations: The Federal rules restrict any use of the information to criminally investigate or prosecute any alcohol or drug abuse patient.[facility] HospitalIn the event this information is protected by the Federal Confidentiality of Alcohol and Drug Abuse Patient Records regulations: The Federal rules restrict any use of the information to criminally investigate or prosecute any alcohol or drug abuse patient.[facility] HospitalIn the event this information is protected by the Federal Confidentiality of Alcohol and Drug Abuse Patient Records regulations: The Federal rules restrict any use of the information to criminally investigate or prosecute any alcohol or drug abuse patient.[facility] HospitalIn the event this information is protected by the Federal Confidentiality of Alcohol and Drug Abuse Patient Records regulations: The Federal rules restrict any use of the information to criminally investigate or prosecute any alcohol or drug abuse patient.[facility] HospitalIn the event this information is protected by the Federal Confidentiality of Alcohol and Drug Abuse Patient Records regulations: The Federal rules restrict any use of the information to criminally investigate or prosecute any alcohol or drug abuse patient.[facility] HospitalIn the event this information is protected by the Federal Confidentiality of Alcohol and Drug Abuse Patient Records regulations: The Federal rules restrict any use of the information to criminally investigate or prosecute any alcohol or drug abuse patient.[facility] HospitalIn the event this information is protected by the Federal Confidentiality of Alcohol and Drug Abuse Patient Records regulations: The Federal rules restrict any use of the information to criminally investigate or prosecute any alcohol or drug abuse patient.[facility] HospitalIn the event this information is protected by the Federal Confidentiality of Alcohol and Drug Abuse Patient Records regulations: The Federal rules restrict any use of the information to criminally investigate or prosecute any alcohol or drug abuse patient.[facility] HospitalIn the event this information is protected by the Federal Confidentiality of Alcohol and Drug Abuse Patient Records regulations: The Federal rules restrict any use of the information to criminally investigate or prosecute any alcohol or drug abuse patient.[facility] HospitalIn the event this information is protected by the Federal Confidentiality of Alcohol and Drug Abuse Patient Records regulations: The Federal rules restrict any use of the information to criminally investigate or prosecute any alcohol or drug abuse patient.[facility] HospitalIn the event this information is protected by the Federal Confidentiality of Alcohol and Drug Abuse Patient Records regulations: The Federal rules restrict any use of the information to criminally investigate or prosecute any alcohol or drug abuse patient.[facility] HospitalIn the event this information is protected by the Federal Confidentiality of Alcohol and Drug Abuse Patient Records regulations: The Federal rules restrict any use of the information to criminally investigate or prosecute any alcohol or drug abuse patient.[facility] HospitalIn the event this information is protected by the Federal Confidentiality of Alcohol and Drug Abuse Patient Records regulations: The Federal rules restrict any use of the information to criminally investigate or prosecute any alcohol or drug abuse patient.[facility] HospitalIn the event this information is protected by the Federal Confidentiality of Alcohol and Drug Abuse Patient Records regulations: The Federal rules restrict any use of the information to criminally investigate or prosecute any alcohol or drug abuse patient.[facility] HospitalIn the event this information is protected by the Federal Confidentiality of Alcohol and Drug Abuse Patient Records regulations: The Federal rules restrict any use of the information to criminally investigate or prosecute any alcohol or drug abuse patient.[facility] HospitalIn the event this information is protected by the Federal Confidentiality of Alcohol and Drug Abuse Patient Records regulations: The Federal rules restrict any use of the information to criminally investigate or prosecute any alcohol or drug abuse patient.[facility] HospitalIn the event this information is protected by the Federal Confidentiality of Alcohol and Drug Abuse Patient Records regulations: The Federal rules restrict any use of the information to criminally investigate or prosecute any alcohol or drug abuse patient.[facility] HospitalIn the event this information is protected by the Federal Confidentiality of Alcohol and Drug Abuse Patient Records regulations: The Federal rules restrict any use of the information to criminally investigate or prosecute any alcohol or drug abuse patient.[facility] HospitalIn the event this information is protected by the Federal Confidentiality of Alcohol and Drug Abuse Patient Records regulations: The Federal rules restrict any use of the information to criminally investigate or prosecute any alcohol or drug abuse patient.[facility] HospitalIn the event this information is protected by the Federal Confidentiality of Alcohol and Drug Abuse Patient Records regulations: The Federal rules restrict any use of the information to criminally investigate or prosecute any alcohol or drug abuse patient.[facility] HospitalIn the event this information is protected by the Federal Confidentiality of Alcohol and Drug Abuse Patient Records regulations: The Federal rules restrict any use of the information to criminally investigate or prosecute any alcohol or drug abuse patient.[facility] HospitalIn the event this information is protected by the Federal Confidentiality of Alcohol and Drug Abuse Patient Records regulations: The Federal rules restrict any use of the information to criminally investigate or prosecute any alcohol or drug abuse patient.[facility] HospitalIn the event this information is protected by the Federal Confidentiality of Alcohol and Drug Abuse Patient Records regulations: The Federal rules restrict any use of the information to criminally investigate or prosecute any alcohol or drug abuse patient.[facility] HospitalIn the event this information is protected by the Federal Confidentiality of Alcohol and Drug Abuse Patient Records regulations: The Federal rules restrict any use of the information to criminally investigate or prosecute any alcohol or drug abuse patient.[facility] HospitalIn the event this information is protected by the Federal Confidentiality of Alcohol and Drug Abuse Patient Records regulations: The Federal rules restrict any use of the information to criminally investigate or prosecute any alcohol or drug abuse patient.[facility] HospitalIn the event this information is protected by the Federal Confidentiality of Alcohol and Drug Abuse Patient Records regulations: The Federal rules restrict any use of the information to criminally investigate or prosecute any alcohol or drug abuse patient.[facility] HospitalIn the event this information is protected by the Federal Confidentiality of Alcohol and Drug Abuse Patient Records regulations: The Federal rules restrict any use of the information to criminally investigate or prosecute any alcohol or drug abuse patient.[facility] HospitalIn the event this information is protected by the Federal Confidentiality of Alcohol and Drug Abuse Patient Records regulations: The Federal rules restrict any use of the information to criminally investigate or prosecute any alcohol or drug abuse patient.[facility] HospitalIn the event this information is protected by the Federal Confidentiality of Alcohol and Drug Abuse Patient Records regulations: The Federal rules restrict any use of the information to criminally investigate or prosecute any alcohol or drug abuse patient.[facility] HospitalIn the event this information is protected by the Federal Confidentiality of Alcohol and Drug Abuse Patient Records regulations: The Federal rules restrict any use of the information to criminally investigate or prosecute any alcohol or drug abuse patient.[facility] HospitalIn the event this information is protected by the Federal Confidentiality of Alcohol and Drug Abuse Patient Records regulations: The Federal rules restrict any use of the information to criminally investigate or prosecute any alcohol or drug abuse patient.[facility] HospitalIn the event this information is protected by the Federal Confidentiality of Alcohol and Drug Abuse Patient Records regulations: The Federal rules restrict any use of the information to criminally investigate or prosecute any alcohol or drug abuse patient.[facility] HospitalIn the event this information is protected by the Federal Confidentiality of Alcohol and Drug Abuse Patient Records regulations: The Federal rules restrict any use of the information to criminally investigate or prosecute any alcohol or drug abuse patient.[facility] HospitalIn the event this information is protected by the Federal Confidentiality of Alcohol and Drug Abuse Patient Records regulations: The Federal rules restrict any use of the information to criminally investigate or prosecute any alcohol or drug abuse patient.[facility] HospitalIn the event this information is protected by the Federal Confidentiality of Alcohol and Drug Abuse Patient Records regulations: The Federal rules restrict any use of the information to criminally investigate or prosecute any alcohol or drug abuse patient.[facility] HospitalIn the event this information is protected by the Federal Confidentiality of Alcohol and Drug Abuse Patient Records regulations: The Federal rules restrict any use of the information to criminally investigate or prosecute any alcohol or drug abuse patient.[facility] HospitalIn the event this information is protected by the Federal Confidentiality of Alcohol and Drug Abuse Patient Records regulations: The Federal rules restrict any use of the information to criminally investigate or prosecute any alcohol or drug abuse patient.[facility] HospitalIn the event this information is protected by the Federal Confidentiality of Alcohol and Drug Abuse Patient Records regulations: The Federal rules restrict any use of the information to criminally investigate or prosecute any alcohol or drug abuse patient.[facility] HospitalIn the event this information is protected by the Federal Confidentiality of Alcohol and Drug Abuse Patient Records regulations: The Federal rules restrict any use of the information to criminally investigate or prosecute any alcohol or drug abuse patient.[facility] HospitalIn the event this information is protected by the Federal Confidentiality of Alcohol and Drug Abuse Patient Records regulations: The Federal rules restrict any use of the information to criminally investigate or prosecute any alcohol or drug abuse patient.[facility] HospitalIn the event this information is protected by the Federal Confidentiality of Alcohol and Drug Abuse Patient Records regulations: The Federal rules restrict any use of the information to criminally investigate or prosecute any alcohol or drug abuse patient.[facility] HospitalIn the event this information is protected by the Federal Confidentiality of Alcohol and Drug Abuse Patient Records regulations: The Federal rules restrict any use of the information to criminally investigate or prosecute any alcohol or drug abuse patient.[facility] HospitalIn the event this information is protected by the Federal Confidentiality of Alcohol and Drug Abuse Patient Records regulations: The Federal rules restrict any use of the information to criminally investigate or prosecute any alcohol or drug abuse patient.[facility] HospitalIn the event this information is protected by the Federal Confidentiality of Alcohol and Drug Abuse Patient Records regulations: The Federal rules restrict any use of the information to criminally investigate or prosecute any alcohol or drug abuse patient.[facility] HospitalIn the event this information is protected by the Federal Confidentiality of Alcohol and Drug Abuse Patient Records regulations: The Federal rules restrict any use of the information to criminally investigate or prosecute any alcohol or drug abuse patient.[facility] HospitalIn the event this information is protected by the Federal Confidentiality of Alcohol and Drug Abuse Patient Records regulations: The Federal rules restrict any use of the information to criminally investigate or prosecute any alcohol or drug abuse patient.[facility] HospitalIn the event this information is protected by the Federal Confidentiality of Alcohol and Drug Abuse Patient Records regulations: The Federal rules restrict any use of the information to criminally investigate or prosecute any alcohol or drug abuse patient.[facility] HospitalIn the event this information is protected by the Federal Confidentiality of Alcohol and Drug Abuse Patient Records regulations: The Federal rules restrict any use of the information to criminally investigate or prosecute any alcohol or drug abuse patient.[facility] HospitalIn the event this information is protected by the Federal Confidentiality of Alcohol and Drug Abuse Patient Records regulations: The Federal rules restrict any use of the information to criminally investigate or prosecute any alcohol or drug abuse patient.[facility] HospitalIn the event this information is protected by the Federal Confidentiality of Alcohol and Drug Abuse Patient Records regulations: The Federal rules restrict any use of the information to criminally investigate or prosecute any alcohol or drug abuse patient.[facility] HospitalIn the event this information is protected by the Federal Confidentiality of Alcohol and Drug Abuse Patient Records regulations: The Federal rules restrict any use of the information to criminally investigate or prosecute any alcohol or drug abuse patient.[facility] HospitalIn the event this information is protected by the Federal Confidentiality of Alcohol and Drug Abuse Patient Records regulations: The Federal rules restrict any use of the information to criminally investigate or prosecute any alcohol or drug abuse patient.[facility] HospitalIn the event this information is protected by the Federal Confidentiality of Alcohol and Drug Abuse Patient Records regulations: The Federal rules restrict any use of the information to criminally investigate or prosecute any alcohol or drug abuse patient.[facility] HospitalIn the event this information is protected by the Federal Confidentiality of Alcohol and Drug Abuse Patient Records regulations: The Federal rules restrict any use of the information to criminally investigate or prosecute any alcohol or drug abuse patient.[facility] HospitalIn the event this information is protected by the Federal Confidentiality of Alcohol and Drug Abuse Patient Records regulations: The Federal rules restrict any use of the information to criminally investigate or prosecute any alcohol or drug abuse patient.[facility] HospitalIn the event this information is protected by the Federal Confidentiality of Alcohol and Drug Abuse Patient Records regulations: The Federal rules restrict any use of the information to criminally investigate or prosecute any alcohol or drug abuse patient.[facility] HospitalIn the event this information is protected by the Federal Confidentiality of Alcohol and Drug Abuse Patient Records regulations: The Federal rules restrict any use of the information to criminally investigate or prosecute any alcohol or drug abuse patient.[facility] HospitalIn the event this information is protected by the Federal Confidentiality of Alcohol and Drug Abuse Patient Records regulations: The Federal rules restrict any use of the information to criminally investigate or prosecute any alcohol or drug abuse patient.[facility] HospitalIn the event this information is protected by the Federal Confidentiality of Alcohol and Drug Abuse Patient Records regulations: The Federal rules restrict any use of the information to criminally investigate or prosecute any alcohol or drug abuse patient.[facility] HospitalIn the event this information is protected by the Federal Confidentiality of Alcohol and Drug Abuse Patient Records regulations: The Federal rules restrict any use of the information to criminally investigate or prosecute any alcohol or drug abuse patient.[facility] HospitalIn the event this information is protected by the Federal Confidentiality of Alcohol and Drug Abuse Patient Records regulations: The Federal rules restrict any use of the information to criminally investigate or prosecute any alcohol or drug abuse patient.[facility] HospitalIn the event this information is protected by the Federal Confidentiality of Alcohol and Drug Abuse Patient Records regulations: The Federal rules restrict any use of the information to criminally investigate or prosecute any alcohol or drug abuse patient.[facility] HospitalIn the event this information is protected by the Federal Confidentiality of Alcohol and Drug Abuse Patient Records regulations: The Federal rules restrict any use of the information to criminally investigate or prosecute any alcohol or drug abuse patient.[facility] HospitalIn the event this information is protected by the Federal Confidentiality of Alcohol and Drug Abuse Patient Records regulations: The Federal rules restrict any use of the information to criminally investigate or prosecute any alcohol or drug abuse patient.[facility] HospitalIn the event this information is protected by the Federal Confidentiality of Alcohol and Drug Abuse Patient Records regulations: The Federal rules restrict any use of the information to criminally investigate or prosecute any alcohol or drug abuse patient.[facility] HospitalIn the event this information is protected by the Federal Confidentiality of Alcohol and Drug Abuse Patient Records regulations: The Federal rules restrict any use of the information to criminally investigate or prosecute any alcohol or drug abuse patient.[facility] HospitalIn the event this information is protected by the Federal Confidentiality of Alcohol and Drug Abuse Patient Records regulations: The Federal rules restrict any use of the information to criminally investigate or prosecute any alcohol or drug abuse patient.[facility] HospitalIn the event this information is protected by the Federal Confidentiality of Alcohol and Drug Abuse Patient Records regulations: The Federal rules restrict any use of the information to criminally investigate or prosecute any alcohol or drug abuse patient.[facility] HospitalIn the event this information is protected by the Federal Confidentiality of Alcohol and Drug Abuse Patient Records regulations: The Federal rules restrict any use of the information to criminally investigate or prosecute any alcohol or drug abuse patient.[facility] HospitalIn the event this information is protected by the Federal Confidentiality of Alcohol and Drug Abuse Patient Records regulations: The Federal rules restrict any use of the information to criminally investigate or prosecute any alcohol or drug abuse patient.[facility] HospitalIn the event this information is protected by the Federal Confidentiality of Alcohol and Drug Abuse Patient Records regulations: The Federal rules restrict any use of the information to criminally investigate or prosecute any alcohol or drug abuse patient.[facility] Care Teams (unrecognized sec tion and content) Harness Tier Relationship Specialty Start Date End Date Vinh Van MD [address] [place] [address] PCP - General 05/23/08 [facility] [address] [place] [address] Pharmacist Pharmacy 04/25/20 Harness Tier Relationship Specialty Start Date End Date Vinh Van MD [address] [place] [address] PCP - General 05/23/08 [facility] [address] [place] [address] Pharmacist Pharmacy 04/25/20 Harness Tier Relationship Specialty Start Date End Date Vinh Van MD [address] [place] [address] PCP - General 05/23/08 [facility] [address] [place] [address] Pharmacist Pharmacy 04/25/20 Harness Tier Relationship Specialty Start Date End Date Vinh Van MD [address] [place] [address] PCP - General 05/23/08 [facility] [address] [place] [address] Pharmacist Pharmacy 04/25/20 Harness Tier Relationship Specialty Start Date End Date Vinh Van MD [address] [place] [address] PCP - General 05/23/08 HermesMilka, [facility] [address] [facility] [place] [address] Pharmacist Pharmacy 04/25/20 Harness Tier Relationship Specialty Start Date End Date Vinh Van MD [address] [place] [address] PCP - General 05/23/08 Sushila Baueri, [facility] [address] [facility] [place] [address] Pharmacist Pharmacy 04/25/20 Harness Tier Relationship Specialty Start Date End Date Vinh Van MD [address] [place] [address] PCP - General 05/23/08 Milka Bauer, [facility] [address] [place] [address] Pharmacist Pharmacy 04/25/20 Harness Tier Relationship Specialty Start Date End Date Vinh Van MD [address] [place] [address] PCP - General 05/23/08 HermesMilka, [facility] [address] [place] [address] Pharmacist Pharmacy 04/25/20 Harness Tier Relationship Specialty Start Date End Date Vinh Van MD [address] [place] [address] PCP - General 05/23/08 [facility] [address] [facility] [place] [address] Pharmacist Pharmacy 04/25/20 Harness Tier Relationship Specialty Start Date End Date Vinh Van MD [address] [place] [address] PCP - General 05/23/08 [facility], [facility] [address] [facility] [place] [address] Pharmacist Pharmacy 04/25/20 Harness Tier Relationship Specialty Start Date End Date Vinh Van MD [address] [place] [address] PCP - General 05/23/08 [facility], [facility] [address] [place] [address] Pharmacist Pharmacy 04/25/20 Harness Tier Relationship Specialty Start Date End Date Vinh Van MD [address] [place] [address] PCP - General 05/23/08 [facility] [address] [place] [address] Pharmacist Pharmacy 04/25/20 Harness Tier Relationship Specialty Start Date End Date Vinh Van MD [address] [place] [address] PCP - General 05/23/08 [facility], [facility] [address] [place] [address] Pharmacist Pharmacy 04/25/20 Harness Tier Relationship Specialty Start Date End Date Vinh Van MD [address] [place] [address] PCP - General 05/23/08 [facility] Home[facility], [facility] [address] [facility] [place] [address] Pharmacist Pharmacy 04/25/20 Harness Tier Relationship Specialty Start Date End Date Vinh Van MD [address] [place] [address] PCP - General 05/23/08 Milka Bauer, [facility] [address] [place] [address] Pharmacist Pharmacy 04/25/20 Harness Tier Relationship Specialty Start Date End Date Vinh Van MD [address] [place] [address] PCP - General 05/23/08 HermesMilka, [facility] [address] [place] [address] Pharmacist Pharmacy 04/25/20 Harness Tier Relationship Specialty Start Date End Date Vinh Van MD [address] [place] [address] PCP - General 05/23/08 [facility] [address] [place] [address] Pharmacist Pharmacy 04/25/20 Harness Tier Relationship Specialty Start Date End Date Vinh Van MD [address] [place] [address] PCP - General 05/23/08 [facility] [address] [place] [address] Pharmacist Pharmacy 04/25/20 Harness Tier Relationship Specialty Start Date End Date Vinh Van MD [address] [place] [address] PCP - General 05/23/08 [facility] Home[facility], [facility] [address] [place] [address] Pharmacist Pharmacy 04/25/20 Harness Tier Relationship Specialty Start Date End Date Vinh Van MD [address] [place] [address] PCP - General 05/23/08 Milka Bauer, [facility] [address] [place] [address] Pharmacist Pharmacy 04/25/20 Harness Tier Relationship Specialty Start Date End Date Vinh Van MD [address] [place] [address] PCP - General 05/23/08 Milka Bauer, [facility] [address] [place] [address] Pharmacist Pharmacy 04/25/20 Harness Tier Relationship Specialty Start Date End Date Vinh Van MD [address] [place] [address] PCP - General 05/23/08 Milka Bauer, [facility] [address] [place] [address] Pharmacist Pharmacy 04/25/20 Harness Tier Relationship Specialty Start Date End Date Vinh Van MD [address] [place] [address] PCP - General 05/23/08 Milka Bauer, [facility] [address] [place] [address] Pharmacist Pharmacy 04/25/20 Harness Tier Relationship Specialty Start Date End Date Vinh Van MD [address] [place] [address] PCP - General 05/23/08 Harness Tier Relationship Specialty Start Date End Date Vinh Van MD [address] [place] [address] PCP - General 05/23/08 Harness Tier Relationship Specialty Start Date End Date Vinh Van MD [address] [place] [address] PCP - General 05/23/08 Harness Tier Relationship Specialty Start Date End Date Vinh Van MD [address] [place] [address] PCP - General 05/23/08 Harness Tier Relationship Specialty Start Date End Date Vinh Van MD [address] [place] [address] PCP - General 05/23/08 Harness Tier Relationship Specialty Start Date End Date Vinh Van MD [address] [place] [address] PCP - General 05/23/08 Milka Bauer, [facility] [address] [place] [address] Pharmacist Pharmacy 04/25/20 08/05/22 Harness Tier Relationship Specialty Start Date End Date Vinh Van MD [address] [place] [address] PCP - General 05/23/08 Harness Tier Relationship Specialty Start Date End Date Vinh Van MD [address] [place] [address] PCP - General 05/23/08 Harness Tier Relationship Specialty Start Date End Date Vinh Van MD [address] [place] [address] PCP - General 05/23/08 Debi Chatman, RN [address] [place] [address] Specialty Rn Unit Manager Hematology/Oncology 08/25/22 Harness Tier Relationship Specialty Start Date End Date Vinh Van MD [address] [place] [address] PCP - General 05/23/08 Debi Chatman RN [address] [place] [address] Specialty Rn Unit Manager Hematology/Oncology 08/25/22 Harness Tier Relationship Specialty Start Date End Date Vinh Van MD [address] [facility] [place] [address] PCP - General 05/23/08 Debi Chatman RN [address] [place] [address] Specialty Rn Unit Manager Hematology/Oncology 08/25/22 Harness Tier Relationship Specialty Start Date End Date Vinh Van MD [address] [place] [address] PCP - General 05/23/08 Debi Chatman RN [address] [place] [address] Specialty Rn Unit Manager Hematology/Oncology 08/25/22 Harness Tier Relationship Specialty Start Date End Date Vinh Van MD [address] [facility] [place] [address] PCP - General 05/23/08 Debi Chatman RN [address] [place] [address] Specialty Rn Unit Manager Hematology/Oncology 08/25/22 Nora Branham DO [address] [place] [address] Hematology/Oncology 09/08/22 Reena Peace RN Specialty Rn Unit Manager 09/10/22 Harness Tier Relationship Specialty Start Date End Date Vinh Van MD [address] [facility] [place] [address] PCP - General 05/23/08 Debi Chatman, RN [address] [place] [address] Specialty Rn Unit Manager Hematology/Oncology 08/25/22 Nora Branham DO [address] [place] [address] Hematology/Oncology 09/08/22 Reena Peace RN Specialty Rn Unit Manager 09/10/22 Harness Tier Relationship Specialty Start Date End Date Vinh Van MD [address] [facility] [place] [address] PCP - General 05/23/08 Debi Chatman, LEONEL [address] [place] [address] Specialty Rn Unit Manager Hematology/Oncology 08/25/22 Nora Branham DO [address] [place] [address] Hematology/Oncology 09/08/22 Reena Peace RN Specialty Rn Unit Manager 09/10/22 Harness Tier Relationship Specialty Start Date End Date Vinh Van MD [address] [facility] [place] [address] PCP - General 05/23/08 Debi Chatman, RN [address] [address] Specialty Rn Unit Manager Hematology/Oncology 08/25/22 Nora Branham DO [address] [facility] [place] [address] Hematology/Oncology 09/08/22 Reena Peace RN Specialty Rn Unit Manager 09/10/22 Harness Tier Relationship Specialty Start Date End Date Vinh Van MD [address] [place] [address] PCP - General 05/23/08 Debi Chatman, RN [address] [place] [address] Specialty Rn Unit Manager Hematology/Oncology 08/25/22 10/06/22 Nora Branham DO [address] [place] [address] Hematology/Oncology 09/08/22 Reena Peace RN Specialty Rn Unit Manager 09/10/22 Harness Tier Relationship Specialty Start Date End Date Vinh Van MD [address] [facility] [place] [address] PCP - General 05/23/08 Nora Branham DO [address] [place] [address] Hematology/Oncology 09/08/22 Reena Peace RN Specialty Rn Unit Manager 09/10/22 Harness Tier Relationship Specialty Start Date End Date Vinh Van MD [address] [facility] [place] [address] PCP - General 05/23/08 Nora Branham DO [address] [place] [address] Hematology/Oncology 09/08/22 Reena Peace RN Specialty Rn Unit Manager 09/10/22 Harness Tier Relationship Specialty Start Date End Date Vinh Van MD [address] [place] [address] PCP - General 05/23/08 Nora Branham DO [address] [place] [address] Hematology/Oncology 09/08/22 Reena Peace RN Specialty Rn Unit Manager 09/10/22 Harness Tier Relationship Specialty Start Date End Date Vinh Van MD [address] [place] [address] PCP - General 05/23/08 Nora Branham DO [address] [place] [address] Hematology/Oncology 09/08/22 Reena Peace RN Specialty Rn Unit Manager 09/10/22 Harness Tier Relationship Specialty Start Date End Date Vinh Van MD [address] [place] [address] PCP - General 05/23/08 Nora Branham DO [address] [place] [address] Hematology/Oncology 09/08/22 Reena Peace RN Specialty Rn Unit Manager 09/10/22 Harness Tier Relationship Specialty Start Date End Date Vinh Van MD [address] [place] [address] PCP - General 05/23/08 Nora Branham DO [address] [place] [address] Hematology/Oncology 09/08/22 Reena Peace RN Specialty Rn Unit Manager 09/10/22 Harness Tier Relationship Specialty Start Date End Date Vinh Van MD [address] [place] [address] PCP - General 05/23/08 Nora Branham DO [address] [place] [address] Hematology/Oncology 09/08/22 Reena Peace RN Specialty Rn Unit Manager 09/10/22 Harness Tier Relationship Specialty Start Date End Date Vinh Van MD [address] [place] [address] PCP - General 05/23/08 Nora Branham DO [address] [place] [address] Hematology/Oncology 09/08/22 Reena Peace RN Specialty Rn Unit Manager 09/10/22 Harness Tier Relationship Specialty Start Date End Date Vinh Van MD [address] [place] [address] PCP - General 05/23/08 Nora Branham DO [address] [place] [address] Hematology/Oncology 09/08/22 Reena Peace RN Specialty Rn Unit Manager 09/10/22 Harness Tier Relationship Specialty Start Date End Date Vinh Van MD [address] [place] [address] PCP - General 05/23/08 Nora Branham DO [address] [place] [address] Hematology/Oncology 09/08/22 Reena Peace RN Specialty Rn Unit Manager 09/10/22 Harness Tier Relationship Specialty Start Date End Date Vinh Van MD [address] [place] [address] PCP - General 05/23/08 Nora Branham DO [address] [place] [address] Hematology/Oncology 09/08/22 Reena Peace RN Specialty Rn Unit Manager 09/10/22 Harness Tier Relationship Specialty Start Date End Date Vinh Van MD [address] [place] [address] PCP - General 05/23/08 Nora Branham DO [address] [place] [address] Hematology/Oncology 09/08/22 Reena Peace RN Specialty Rn Unit Manager 09/10/22 Harness Tier Relationship Specialty Start Date End Date Vinh Van MD [address] [place] [address] PCP - General 05/23/08 Nora Branham DO [address] [place] [address] Hematology/Oncology 09/08/22 Reena Peace RN Specialty Rn Unit Manager 09/10/22 Harness Tier Relationship Specialty Start Date End Date Vinh Van MD [address] [facility] [place] [address] PCP - General 05/23/08 Nora Branham DO [address] [place] [address] Hematology/Oncology 09/08/22 Reena Peace RN Specialty Rn Unit Manager 09/10/22 Harness Tier Relationship Specialty Start Date End Date Vinh Van MD [address] [facility] [place] [address] PCP - General 05/23/08 Nora Branham DO [address] [place] [address] Hematology/Oncology 09/08/22 Reena Peace RN Specialty Rn Unit Manager 09/10/22 Harness Tier Relationship Specialty Start Date End Date Vinh Van MD [address] [facility] [place] [address] PCP - General 05/23/08 Nora Branham DO [address] [facility] [place] [address] Hematology/Oncology 09/08/22 Reena Peace RN Specialty Rn Unit Manager 09/10/22 Harness Tier Relationship Specialty Start Date End Date Vinh Van MD [address] [facility] [place] [address] PCP - General 05/23/08 Nora Branham DO [address] [facility] [place] [address] Hematology/Oncology 09/08/22 Reena Peace RN Specialty Rn Unit Manager 09/10/22 Harness Tier Relationship Specialty Start Date End Date Vinh Van MD [address] [place] [address] PCP - General 05/23/08 Nora Branham DO [address] [place] [address] Hematology/Oncology 09/08/22 Reena Peace RN Specialty Rn Unit Manager 09/10/22 Harness Tier Relationship Specialty Start Date End Date Vinh Van MD [address] [place] [address] PCP - General 05/23/08 Nora Branham DO [address] [place] [address] Hematology/Oncology 09/08/22 Reena Peace RN Specialty Rn Unit Manager 09/10/22 Harness Tier Relationship Specialty Start Date End Date Vinh Van MD [address] [place] [address] PCP - General 05/23/08 Nora Branham DO [address] [place] [address] Hematology/Oncology 09/08/22 Reena Peace RN Specialty Rn Unit Manager 09/10/22 Harness Tier Relationship Specialty Start Date End Date Vinh Van MD [address] [place] [address] PCP - General 05/23/08 Nora Branham DO [address] [place] [address] Hematology/Oncology 09/08/22 Reena Peace RN Specialty Rn Unit Manager 09/10/22 Harness Tier Relationship Specialty Start Date End Date Vinh Van MD [address] [facility] [place] [address] PCP - General 05/23/08 Nora Branham DO [address] [place] [address] Hematology/Oncology 09/08/22 Reena Peace RN Specialty Rn Unit Manager 09/10/22 Harness Tier Relationship Specialty Start Date End Date Vinh Van MD [address] [facility] [place] [address] PCP - General 05/23/08 Nora Branham DO [address] [place] [address] Hematology/Oncology 09/08/22 Reena Peace RN Specialty Rn Unit Manager 09/10/22 Harness Tier Relationship Specialty Start Date End Date Vinh Van MD [address] [facility] [place] [address] PCP - General 05/23/08 Nora Branham DO [address] [facility] [place] [address] Hematology/Oncology 09/08/22 Reena Peace RN Specialty Rn Unit Manager 09/10/22 Harness Tier Relationship Specialty Start Date End Date Vinh Van MD [address] [facility] [place] [address] PCP - General 05/23/08 Nora Branham DO [address] [place] [address] Hematology/Oncology 09/08/22 Reena Peace RN Specialty Rn Unit Manager 09/10/22 Harness Tier Relationship Specialty Start Date End Date Vinh Van MD [address] [place] [address] PCP - General 05/23/08 Nora Branham DO [address] [place] [address] Hematology/Oncology 09/08/22 Reena Peace RN Specialty Rn Unit Manager 09/10/22 Harness Tier Relationship Specialty Start Date End Date Vinh Van MD [address] [place] [address] PCP - General 05/23/08 Milka Bauer [facility] [address] [place] [address] Pharmacist Pharmacy 04/25/20 08/05/22 Harness Tier Relationship Specialty Start Date End Date Vinh Van MD [address] [place] [address] PCP - General 05/23/08 Milka Bauer [facility] [address] [place] [address] Pharmacist Pharmacy 04/25/20 08/05/22 Harness Tier Relationship Specialty Start Date End Date Vinh Van MD [address] [place] [address] PCP - General 05/23/08 Nora Branham DO [address] [facility] [place] [address] Hematology/Oncology 09/08/22 Reena Peace RN Specialty Rn Unit Manager 09/10/22 Harness Tier Relationship Specialty Start Date End Date Vinh Van MD [address] [place] [address] PCP - General 05/23/08 Nora rBanham DO [address] [place] [address] Hematology/Oncology 09/08/22 Reena Peace RN Specialty Rn Unit Manager 09/10/22 Harness Tier Relationship Specialty Start Date End Date Vinh Van MD [address] [place] [address] PCP - General 05/23/08 Nora Branham DO [address] [place] [address] Hematology/Oncology 09/08/22 Reena Peace RN Specialty Rn Unit Manager 09/10/22 Harness Tier Relationship Specialty Start Date End Date Vinh Van MD [address] [place] [address] PCP - General 05/23/08 Nora Branham DO [address] [place] [address] Hematology/Oncology 09/08/22 Reena Peace RN Specialty Rn Unit Manager 09/10/22 Harness Tier Relationship Specialty Start Date End Date Vinh Van MD [address] [place] [address] PCP - General 05/23/08 Milka Bauer, [facility] [address] [place] [address] Pharmacist Pharmacy 04/25/20 08/05/22 Harness Tier Relationship Specialty Start Date End Date Vinh Van MD [address] [place] [address] PCP - General 05/23/08 Nora Branham DO [address] [place] [address] Hematology/Oncology 09/08/22 Reena Peace RN Specialty Rn Unit Manager 09/10/22 Harness Tier Relationship Specialty Start Date End Date Vinh Van MD [address] [place] [address] PCP - General 05/23/08 Nora Branham DO [address] [place] [address] Hematology/Oncology 09/08/22 Reena Peace RN Specialty Rn Unit Manager 09/10/22 Harness Tier Relationship Specialty Start Date End Date Vinh Van MD [address] [place] [address] PCP - General 05/23/08 Nora Branham DO [address] [place] [address] Hematology/Oncology 09/08/22 Reena Peace RN Specialty Rn Unit Manager 09/10/22 Harness Tier Relationship Specialty Start Date End Date Vinh Van MD [address] [place], [place] [address] PCP - General 05/23/08 Nora Branham DO [address] [place], [place] [address] Hematology/Oncology 09/08/22 Reena Peace RN Specialty Rn Unit Manager 09/10/22 Team Status: Active Member Role Status Dates Arslan Burk Family Provider Active Dr. Vinh Van MD Primary Care Provider Active Team Status: Inactive Member Role Status Dates Dr. Vinh Van MD Primary Care Provider, Referr ing Provider Active Dr. Keshawn Tipton MD Attending Provider Active Team Status: Active Member Role Status Dates Dr. Vinh Van MD Primary Care Provider Active Robert Blue MD Emergency Provider Active Dr. Abraham Edgar MD Admit Provider, Attending Prov ider Active Team Status: Active Member Role Status Dates Dr. Vinh Van MD Primary Care Provider Active Robert Bleu MD Emergency Provider Active Dr. Abraham Edgar MD Admit Provider, Other Provider Active Dr. Georgia Romero MD Attending Provider, Other Provid er Active Team Status: Inactive Member Role Status Dates Dr. Vinh Van MD Primary Care Provider Active Robert Blue MD Emergency Provider Active Dr. Abraham Edgar MD Admit Provider, Other Provider Active Dr. Georgia Romero MD Attending Provider Active Harness Tier Relationship Specialty Start Date End Date Vinh Van MD [address] [place] [address] PCP - General 05/23/08 Nora rBanham DO [address] [place] [address] Hematology/Oncology 09/08/22 Reena Peace RN Specialty Rn Unit Manager 09/10/22 Harness Tier Relationship Specialty Start Date End Date Vinh Van MD [address] [facility] [place] [address]281 PCP - General 05/23/08 Nora Branham DO [address] [facility] [place] [place] [address] Hematology/Oncology 09/08/22 Reena Peace RN Specialty Rn Unit Manager 09/10/22 Harness Tier Relationship Specialty Start Date End Date Vinh Van MD [address] [facility], [place] [address] PCP - General 05/23/08 Nora Branham DO [address] [place], [place] [address] Hematology/Oncology 09/08/22 Reena Peace RN Specialty Rn Unit Manager 09/10/22 Team Status: Active Member Role Status Dates Dr. Vinh Van MD Primary Care Provider Active Dr. Myron Marcus DO Emergency Provider Active Dr. Renata Culver MD Admit Provider, Attending Provider, Other Provider Active Team Status: Active Member Role Status Dates Dr. Vinh Van MD Primary Care Provider Active Dr. Myron Marcus DO Emergency Provider Active Dr. Renata Culver MD Admit Provider, Attending Prov ider Active Team Status: Active Member Role Status Dates Dr. Vinh Van MD Primary Care Provider Active Dr. Myron Marcus DO Emergency Provider Active Dr. Renata Culver MD Admit Provider, Other Provider Active Dr. Bing Doran MD Attending Provider, Other Provid er Active Team Status: Inactive Member Role Status Dates Dr. Vinh Van MD Primary Care Provider Active Dr. Myron Marcus DO Emergency Provider Active Dr. Renata Culver MD Admit Provider, Other Provider Active Dr. Bing Doran MD Attending Provider Active Team Status: Active Member Role Status Dates Dr. Vinh Van MD Primary Care Provider Active Esther Yousif Attending Provider Active Team Status: Active Member Role Status Dates Dr. Vinh Van MD Primary Care Provider Active Dr. Tadeo Hutchinson , DO Emergency Provider Active Dr. Syed Muñiz MD Admit Provider, Attending Provi teri Active Team Status: Active Member Role Status Dates Dr. Vinh Van MD Primary Care Provider Active Dr. Tadeo Hutchinson , DO Emergency Provider Active Dr. Syed Muñiz MD Admit Provider, Other Provider Active Dr. Ramy Anglin , DO Attending Provider, Other Provider Active Team Status: Inactive Member Role Status Dates Dr. Vinh Van MD Primary Care Provider Active Dr. Tadeo Hutchinson , DO Emergency Provider Active Dr. Syed Muñiz MD Admit Provider, Other Provider Active Dr. Ramy Anglin , DO Attending Provider Active Harness Tier Relationship Specialty Start Date End Date Vinh Van MD [address] [place] [address] PCP - General 05/23/08 Nora Branham DO [address] [place] [address] Hematology/Oncology 09/08/22 Reena Peace RN Specialty Rn Unit Manager 09/10/22 Harness Tier Relationship Specialty Start Date End Date Vinh Van MD [address] [place] [address] PCP - General 05/23/08 Nora Branham DO [address] [place] [address] Hematology/Oncology 09/08/22 Reena Peace RN Specialty Rn Unit Manager 09/10/22 Harness Tier Relationship Specialty Start Date End Date Vinh Van MD [address] [place] [address] PCP - General 05/23/08 Nora Branham DO [address] [facility] [place] [address] Hematology/Oncology 09/08/22 Reena Peace RN Specialty Rn Unit Manager 09/10/22 Harness Tier Relationship Specialty Start Date End Date Vinh Van MD [address] [place] [address] PCP - General 05/23/08 Nora Branham DO [address] [place] [address] Hematology/Oncology 09/08/22 Reena Peace RN Specialty Rn Unit Manager 09/10/22 Harness Tier Relationship Specialty Start Date End Date Vinh Van MD [address] [place] [address] PCP - General 05/23/08 Nora Branham DO [address] [facility] [place] [address] Hematology/Oncology 09/08/22 Reena Peace RN Specialty Rn Unit Manager 09/10/22 Harness Tier Relationship Specialty Start Date End Date Vinh Van MD [address] [place] [address] PCP - General 05/23/08 Nora Branham DO [address] [facility] [place] [address] Hematology/Oncology 09/08/22 Reena Peace RN Specialty Rn Unit Manager 09/10/22 Harness Tier Relationship Specialty Start Date End Date Vinh Van MD [address] [place] [address] PCP - General 05/23/08 Nora Branham DO [address] [place] [address] Hematology/Oncology 09/08/22 Reena Peace RN Specialty Rn Unit Manager 09/10/22 Harness Tier Relationship Specialty Start Date End Date Vinh Van MD [address] [facility] [place] [address] PCP - General 05/23/08 Nora Branham DO [address] [place] [address] Hematology/Oncology 09/08/22 Reena Peace RN Specialty Rn Unit Manager 09/10/22 Harness Tier Relationship Specialty Start Date End Date Vinh Van MD [address] [facility] [place] [address] PCP - General 05/23/08 Nora Branham DO [address] [place] [address] Hematology/Oncology 09/08/22 Reena Peace RN Specialty Rn Unit Manager 09/10/22 Harness Tier Relationship Specialty Start Date End Date Vinh Van MD [address] [facility] [place] [address] PCP - General 05/23/08 Nora Branham DO [address] [place] [address] Hematology/Oncology 09/08/22 Reena Peace RN Specialty Rn Unit Manager 09/10/22 Harness Tier Relationship Specialty Start Date End Date Vinh Van MD [address] [place] [address] PCP - General 05/23/08 Nora Branham DO [address] [place] [address] Hematology/Oncology 09/08/22 Reena Peace RN Specialty Rn Unit Manager 09/10/22 Harness Tier Relationship Specialty Start Date End Date Vinh Van MD [address] [place] [address] PCP - General 05/23/08 Nora Branham DO [address] [place] [address] Hematology/Oncology 09/08/22 Reena Peace RN Specialty Rn Unit Manager 09/10/22 Harness Tier Relationship Specialty Start Date End Date Vinh Van MD [address] [place] [address] PCP - General 05/23/08 Nora Branham DO [address] [place] [address] Hematology/Oncology 09/08/22 Reena Peace RN Specialty Rn Unit Manager 09/10/22 Harness Tier Relationship Specialty Start Date End Date Vinh Van MD [address] [place] [address] PCP - General 05/23/08 Nora Branham DO [address] [place] [address] Hematology/Oncology 09/08/22 Reena Peace RN Specialty Rn Unit Manager 09/10/22 Harness Tier Relationship Specialty Start Date End Date Vinh Van MD [address] [place] [address] PCP - General 05/23/08 Nora Branham DO [address] [place] [address] Hematology/Oncology 09/08/22 Reena Peace RN Specialty Rn Unit Manager 09/10/22 Harness Tier Relationship Specialty Start Date End Date Vinh Van MD [address] [place] [address] PCP - General 05/23/08 Nora Branham DO [address] [place] [address] Hematology/Oncology 09/08/22 Reena Peace RN Specialty Rn Unit Manager 09/10/22 Harness Tier Relationship Specialty Start Date End Date Vinh Van MD [address] [place] [address] PCP - General 05/23/08 Nora Branham DO [address] [place] [address] Hematology/Oncology 09/08/22 Reena Peace RN Specialty Rn Unit Manager 09/10/22 Harness Tier Relationship Specialty Start Date End Date Vinh Van MD [address] [place] [address] PCP - General 05/23/08 Nora Branham DO [address] [place] [address] Hematology/Oncology 09/08/22 Reena Peace RN Specialty Rn Unit Manager 09/10/22 Harness Tier Relationship Specialty Start Date End Date Vinh Van MD [address] [facility] [place] [address] PCP - General 05/23/08 Nora Branham DO [address] [place] [address] Hematology/Oncology 09/08/22 Reena Peace RN Specialty Rn Unit Manager 09/10/22 Harness Tier Relationship Specialty Start Date End Date Vinh Van MD [address] [place] [address] PCP - General 05/23/08 Nora Branham DO [address] [place] [address] Hematology/Oncology 09/08/22 Reena Peace RN Specialty Rn Unit Manager 09/10/22 Harness Tier Relationship Specialty Start Date End Date Vinh Van MD [address] [place] [address] PCP - General 05/23/08 Nora Branham DO [address] [facility] [place] [address] Hematology/Oncology 09/08/22 Reena Peace RN Specialty Rn Unit Manager 09/10/22 Harness Tier Relationship Specialty Start Date End Date Vinh Van MD [address] [place] [address] PCP - General 05/23/08 Nora Branham DO [address] [place] [address] Hematology/Oncology 09/08/22 Reena Peace RN Specialty Rn Unit Manager 09/10/22 Farshad Marie MD [address] [place], [place] [id number] Cardiology 11/19/23 [place] [address] [place] [address] Gynecology 11/19/23 Harness Tier Relationship Specialty Start Date End Date Vinh Van MD [facility] [place] [address] PCP - General 05/23/08 Nora Branham DO [address] [place] [address] Hematology/Oncology 09/08/22 Reena Peace RN Specialty Rn Unit Manager 09/10/22 Farshad Marie MD [address] [place] [address] Cardiology 11/19/23 [place] [address] [place] [address] Gynecology 11/19/23 Harness Tier Relationship Specialty Start Date End Date Vinh Van MD [facility] [place] [address] PCP - General 05/23/08 Nora Branham DO [address] [place] [address] Hematology/Oncology 09/08/22 Reena Peace RN Specialty Rn Unit Manager 09/10/22 Farshad Marie MD [address] [place] [address] Cardiology 11/19/23 [place] [address] [place] [address] Gynecology 11/19/23 Harness Tier Relationship Specialty Start Date End Date Vinh Van MD [facility] [place], [place] [address]141 PCP - General 05/23/08 Nora Branham DO [address] [place], [place] [address] Hematology/Oncology 09/08/22 Reena Peace RN Specialty Rn Unit Manager 09/10/22 Farshad Marie MD [address] [place] [address] Cardiology 11/19/23 [place] [address] [place] [address] Gynecology 11/19/23 Harness Tier Relationship Specialty Start Date End Date Vinh Van MD [facility] [place], [place] [id number] PCP - General 05/23/08 Nora Branham DO [address] [place] [address] Hematology/Oncology 09/08/22 Reena Peace RN Specialty Rn Unit Manager 09/10/22 Farshad Marie MD [address] [place] [address] Cardiology 11/19/23 [place] [address] [place] [address] Gynecology 11/19/23 Harness Tier Relationship Specialty Start Date End Date Vinh Van MD [address] [place] [address] PCP - General 05/23/08 Milka Bauer [facility] [address] [place], [place] [address] Pharmacist Pharmacy 04/25/20 08/05/22 Harness Tier Relationship Specialty Start Date End Date Vinh Van MD [address] [place] [address] PCP - General 05/23/08 Nora Branham DO [address] [place] [address] Hematology/Oncology 09/08/22 Reena Peace RN Specialty Rn Unit Manager 09/10/22 Farshad Marie MD [address] [place] [address] Cardiology 11/19/23 [place] [address] [place], [place] [address] Gynecology 11/19/23 Harness Tier Relationship Specialty Start Date End Date Vinh Van MD [address] [place], [place] 026581 PCP - General 05/23/08 Nora Branham DO [address] [place], [place] [id number] Hematology/Oncology 09/08/22 Reena Peace RN Specialty Rn Unit Manager 09/10/22 Farshad Marie MD [address] [place] [address] Cardiology 11/19/23 [place] [address] [place] [address] Gynecology 11/19/23 Harness Tier Relationship Specialty Start Date End Date Vinh Van MD [address] [place], [place] [id number] PCP - General 05/23/08 Nora Branham DO [address] [place], [place] [id number] Hematology/Oncology 09/08/22 Reena Peace RN Specialty Rn Unit Manager 09/10/22 Farshad Marie MD [address] [place] [address] Cardiology 11/19/23 [place] [address] [place] [address] Gynecology 11/19/23 Harness Tier Relationship Specialty Start Date End Date Vinh Van MD [address] [place], [place] [id number] PCP - General 05/23/08 Nora Branham DO [address] [place], [place] [id number] Hematology/Oncology 09/08/22 Reena Peace RN Specialty Rn Unit Manager 09/10/22 Farshad Marie MD [address] [place] [address] Cardiology 11/19/23 [place] [address] [place] [address] Gynecology 11/19/23 Harness Tier Relationship Specialty Start Date End Date Vinh Van MD [address] [place], [place] [id number] PCP - General 05/23/08 Nora Branham DO [address] [place], [place] [id number] Hematology/Oncology 09/08/22 Reena Peace RN Specialty Rn Unit Manager 09/10/22 Farshad Marie MD [address] [place] [address] Cardiology 11/19/23 [place] [address] [place] [address] Gynecology 11/19/23 Harness Tier Relationship Specialty Start Date End Date Vinh Van MD [address] [place], [place] 618991 PCP - General 05/23/08 Nora Brahnam DO [address] [place], [place] 165131 Hematology/Oncology 09/08/22 Reena Peace RN Specialty Rn Unit Manager 09/10/22 Farshad Marie MD [address] [place] [address] Cardiology 11/19/23 [place] [address] [place] [address] Gynecology 11/19/23 Harness Tier Relationship Specialty Start Date End Date Vinh Van MD [address] [place], [place] [id number] PCP - General 05/23/08 Nora Branham DO [address] [place], [place] 930911 Hematology/Oncology 09/08/22 Reena Peace RN Specialty Rn Unit Manager 09/10/22 Farshad Marie MD [address] [place] [address] Cardiology 11/19/23 [place] [address] [place] [address] Gynecology 11/19/23 Harness Tier Relationship Specialty Start Date End Date Vinh Van MD [address] [place] [address] PCP - General 05/23/08 Nora Branham DO [address] [place] [address] Hematology/Oncology 09/08/22 Reena Peace RN Specialty Rn Unit Manager 09/10/22 Farshad Marie MD [address] [place] [address] Cardiology 11/19/23 [place] [address] [place] [address] Gynecology 11/19/23 Harness Tier Relationship Specialty Start Date End Date Vinh Van MD [address] [place], [place] [id number] PCP - General 05/23/08 Nora Branham DO [address] [place] [address] Hematology/Oncology 09/08/22 Reena Peace RN Specialty Rn Unit Manager 09/10/22 Farshad Marie MD [address] [place] [address] Cardiology 11/19/23 [place] [address] [place] [id number] Gynecology 11/19/23 Harness Tier Relationship Specialty Start Date End Date Vinh Van MD [address] [place], [place] 329601 PCP - General 05/23/08 Nora Branham DO [address] [place] [address] Hematology/Oncology 09/08/22 Reena Peace RN Specialty Rn Unit Manager 09/10/22 Farshad Marie MD [address] [place] [address] Cardiology 11/19/23 [place] [address] [place] [id number] Gynecology 11/19/23 Harness Tier Relationship Specialty Start Date End Date Vinh Van MD [address] [place], [place] [id number] PCP - General 05/23/08 Nora Branham DO [address] [place] [address] Hematology/Oncology 09/08/22 Reena Peace RN Specialty Rn Unit Manager 09/10/22 Farshad Marie MD [address] [place] [address] Cardiology 11/19/23 [place] [address] [place] [address] Gynecology 11/19/23 Harness Tier Relationship Specialty Start Date End Date Vinh Van MD [address] [place] [address] PCP - General 05/23/08 Nora Branham DO [address] [place] [address] Hematology/Oncology 09/08/22 Reena Peace RN Specialty Rn Unit Manager 09/10/22 Farshad Marie MD [address] [place] [address] Cardiology 11/19/23 [place] [address] [place] [address] Gynecology 11/19/23 Harness Tier Relationship Specialty Start Date End Date Vinh Van MD [address] [place], [place] 400391 PCP - General 05/23/08 Nora Branham DO [address] [place] [address] Hematology/Oncology 09/08/22 Reena Peace RN Specialty Rn Unit Manager 09/10/22 Farshad Marie MD [address] [place] [address] Cardiology 11/19/23 [place] [address] [place] [address] Gynecology 11/19/23 Harness Tier Relationship Specialty Start Date End Date Vinh Van MD [address] [place], [place] 096091 PCP - General 05/23/08 Nora Branham DO [address] [place] [address] Hematology/Oncology 09/08/22 Reena Peace RN Specialty Rn Unit Manager 09/10/22 Farshad Marie MD [address] [place] [address] Cardiology 11/19/23 [place] [address] [place] [address] Gynecology 11/19/23 Harness Tier Relationship Specialty Start Date End Date Vinh Van MD [address] [place], [place] 047421 PCP - General 05/23/08 Nora Branham DO [address] [place] [address] Hematology/Oncology 09/08/22 Reena Peace RN Specialty Rn Unit Manager 09/10/22 Farshad Marie MD [address] [place] [address] Cardiology 11/19/23 [place] [address] [place] [address] Gynecology 11/19/23 Harness Tier Relationship Specialty Start Date End Date Vinh Van MD [address] [place], [place] 028251 PCP - General 05/23/08 Nora Branham DO [address] [place] [address] Hematology/Oncology 09/08/22 Reena Peace RN Specialty Rn Unit Manager 09/10/22 Farshad Marie MD [address] [place] [address] Cardiology 11/19/23 [place] [address] [place] [address] Gynecology 11/19/23 Harness Tier Relationship Specialty Start Date End Date Vinh Van MD [address] [place], [place] 085591 PCP - General 05/23/08 oNra Branham DO [address] [place], [place] 720151 Hematology/Oncology 09/08/22 Reena Peace RN Specialty Rn Unit Manager 09/10/22 Farshad Marie MD [address] [place] [address] Cardiology 11/19/23 [place] [address] [place], [place] [id number] Gynecology 11/19/23 Billie Hwang, NETSUITE CONSULTANT.DIRECTOR MARKETING [address] [place] [address] [employer] [facility] 02/06/24 Harness Tier Relationship Specialty Start Date End Date Vinh Van MD [address] [place] [address] PCP - General 05/23/08 Nora Branham DO [address] [place], [place] 720333 [phone] Hematology/Oncology 09/08/22 Reena Peace RN Specialty Rn Unit Manager 09/10/22 Farshad Marie MD [address] [place], [place] 8828195 Cardiology 11/19/23 [place] [address] [place] [address] Gynecology 11/19/23 Billie Hwang, MAGEN.DIRECTOR MARKETING [address] [place] [address] [employer] [facility] 02/06/24 Harness Tier Relationship Specialty Start Date End Date Vinh Van MD [address] [place] [address] PCP - General 05/23/08 Nora Branham DO [address] [place] [address] Hematology/Oncology 09/08/22 Reena Peace RN Specialty Rn Unit Manager 09/10/22 Farshad Marie MD [address] [place], [place] [id number] Cardiology 11/19/23 [place] [address] [place] [address] Gynecology 11/19/23 Billie Hwang APRN.DIRECTOR MARKETING [address] [place], [place] 178701 [employer] Family Medicine 02/06/24 Patel Escalera MD [address] [place], [place] 844961 Radiation Oncology 02/08/24 Harness Tier Relationship Specialty Start Date End Date Vinh Van MD [address] [place], [place] 590764 [phone] PCP - General 05/23/08 Nora Branham DO [address] [place] [address] Hematology/Oncology 09/08/22 Reena Peace RN Specialty Rn Unit Manager 09/10/22 Farshad Marie MD [address] [place] [address] Cardiology 11/19/23 [place] [address] [place] [address] Gynecology 11/19/23 Billie Hwang APRN.DIRECTOR MARKETING [address] [place] [address] [employer] Family Medicine 02/06/24 Patel Escalera MD [address] [place] [address] Radiation Oncology 02/08/24 Harness Tier Relationship Specialty Start Date End Date Vinh Van MD [address] [place] [address] PCP - General 05/23/08 Nora Branham DO [address] [place] [address] Hematology/Oncology 09/08/22 Reena Peace RN Specialty Rn Unit Manager 09/10/22 Farshad Marie MD [address] [place] [address] Cardiology 11/19/23 [place] [address] [place] [address] Gynecology 11/19/23 Billie Hwang APRN.[facility] [address] [place] [address] [employer] Family Medicine 02/06/24 Patel Escalera MD [address] [place] [address] Radiation Oncology 02/08/24 Harness Tier Relationship Specialty Start Date End Date Vinh Van MD [address] [place], [place] 453664 [phone] PCP - General 05/23/08 Nora Branham DO [address] [place] 511045 [phone] Hematology/Oncology 09/08/22 Reena Peace RN Specialty Rn Unit Manager 09/10/22 Farshad Marie MD [address] [place], [place] 8468395 Cardiology 11/19/23 [place] [address] [place], [place] 8438606 Gynecology 11/19/23 Billie Hwang APRN.DIRECTOR MARKETING [address] [place] [address] [employer] Family Medicine 02/06/24 Patel Escalera MD [address] [place] [place], [place] 396872 [phone] Radiation Oncology 02/08/24 Supa Matute APRN.DIRECTOR MARKETING [address] [place] [address] [facility] 02/15/24 Harness Tier Relationship Specialty Start Date End Date Vinh Van MD [address] [place] [address] PCP - General 05/23/08 Nora Branham DO [address] [place] [address] Hematology/Oncology 09/08/22 Reena Peace RN Specialty Rn Unit Manager 09/10/22 Farshad Marie MD [address] [place], [place] 3873395 Cardiology 11/19/23 [place] [address] [place] [address] Gynecology 11/19/23 Billie Hwang APRN.DIRECTOR MARKETING [address] [place] [address] [employer] Family [facility] 02/06/24 Patel Escalera MD [address] [place] [address] Radiation Oncology 02/08/24 Supa Matute APRN.DIRECTOR MARKETING [address] [place] [address] [employer] [facility] 02/15/24 Harness Tier Relationship Specialty Start Date End Date Vinh Van MD [address] [place] [address] PCP - General 05/23/08 Nora Branham DO [address] [place] [address] Hematology/Oncology 09/08/22 Reena Peace, LEONEL Specialty Rn Unit Manager 09/10/22 Farshad Marie MD [address] [place] [address] Cardiology 11/19/23 [place] [address] [place], [place] 6982706 Gynecology 11/19/23 Billie Hwang APRN.DIRECTOR MARKETING [address] [place] [address] [employer] Family [facility] 02/06/24 Patel Escalera MD [address] [place], [place] 821903 [phone] Radiation Oncology 02/08/24 Supa Matute APRN.DIRECTOR MARKETING [address] [place] [address] [employer] [facility] 02/15/24 Harness Tier Relationship Specialty Start Date End Date Vinh Van MD [address] [place] [address] PCP - General 05/23/08 Nora Branham DO [address] [place] [address] Hematology/Oncology 09/08/22 Reena Peace RN Specialty Rn Unit Manager 09/10/22 Harness Tier Relationship Specialty Start Date End Date Vinh Van MD [address] [place] [address] PCP - General 05/23/08 Nora Branham DO [address] [facility] [place] [address] Hematology/Oncology 09/08/22 Reena Peace RN Specialty Rn Unit Manager 09/10/22 Farshad Marie MD [address] [place] [address] Cardiology 11/19/23 [place] [address] [place] [address] Gynecology 11/19/23 Billie Hwang APRN.DIRECTOR MARKETING [address] [place], [place] 73725691 [employer] [facility] 02/06/24 Patel Escalera MD [address] [place], [place] 54363691 Radiation Oncology 02/08/24 Supa Matute APRN.DIRECTOR MARKETING [address] [place] [address] On License Of [facility] 02/15/24 Harness Tier Relationship Specialty Start Date End Date Vinh Van MD [address] [place], [place] [id number] PCP - General 05/23/08 Nora Branham DO [address] [place], [place] 41019691 Hematology/Oncology 09/08/22 Reena Peace RN Specialty Rn Unit Manager 09/10/22 Farshad Marie MD [address] [place] [phone] Cardiology 11/19/23 [place] [address] [place] [address] Gynecology 11/19/23 Billie Hwang APRN.DIRECTOR MARKETING [address] [place] [address] [employer] Family [facility] 02/06/24 Patel Escalera MD [address] [place], [place] 813111 Radiation Oncology 02/08/24 Supa Matute APRN.DIRECTOR MARKETING [address] [place] [address] On License Of [facility] 02/15/24 Harness Tier Relationship Specialty Start Date End Date Vinh Van MD [address] [place] [address] PCP - General 05/23/08 Nora Branham DO [address] [place], [place] 987507 [phone] Hematology/Oncology 09/08/22 Reena Peace RN Specialty Rn Unit Manager 09/10/22 Farshad Marie MD [address] [place] [address] Cardiology 11/19/23 [place] [address] [place] [address] Gynecology 11/19/23 Billie Hwang, MAGEN.DIRECTOR MARKETING [address] [facility] [place] [address] [employer] Family Medicine 02/06/24 Patel Escalera MD [address] [address] Radiation Oncology 02/08/24 Supa Matute APRN.DIRECTOR MARKETING [address] [place] [address] [employer] Family [facility] 02/15/24 Harness Tier Relationship Specialty Start Date End Date Vinh Van MD [address] [place], [place] 001892 [phone] PCP - General 05/23/08 Nora Branham DO [address] [place] [address] Hematology/Oncology 09/08/22 Reena Peace RN Specialty Rn Unit Manager 09/10/22 Farshad Marie MD [address] [place], [place] [phone] Cardiology 11/19/23 [place] [address] [place] [address] Gynecology 11/19/23 Billie Hwang APRN.DIRECTOR MARKETING [address] [place] [address] [employer] [facility] 02/06/24 Patel Escalera MD [address] [place] 305[address] [phone] Radiation Oncology 02/08/24 Supa Matute APRN.DIRECTOR MARKETING [address] [place], [place] 06590748 [phone] [employer] Family [facility] 02/15/24 Harness Tier Relationship Specialty Start Date End Date Vinh Van MD [address] [place], [place] 402094 [phone] PCP - General 05/23/08 Nora Branham DO [address] [place] [address] Hematology/Oncology 09/08/22 Reena Peace, RN Specialty Rn Unit Manager 09/10/22 Farshad Marie MD [address] [place], [place] 0085695 Cardiology 11/19/23 [place] [address] [place], [place] 1555306 Gynecology 11/19/23 Billie Hwang APRN.DIRECTOR MARKETING [address] [place] [address] [employer] [facility] Medicine 02/06/24 Patel Escalera MD [address] [place] [address] Radiation Oncology 02/08/24 Supa Matute NETSUITE CONSULTANT.DIRECTOR MARKETING [address] [place] [address] [employer] [facility] 02/15/24 Harness Tier Relationship Specialty Start Date End Date Vinh Van MD [address] [place] [address] PCP - General 05/23/08 Nora Branham DO [address] [place] [address] Hematology/Oncology 09/08/22 Reena Peace RN Specialty Rn Unit Manager 09/10/22 Farshad Marie MD [address] [place], [place] [phone] Cardiology 11/19/23 [place] [address] [place], [place] 6583006 Gynecology 11/19/23 Billie Hwang APRN.DIRECTOR MARKETING [address] [place] [address] [employer] Family Medicine 02/06/24 Patel Escalera MD [address] [place] [address] Radiation Oncology 02/08/24 Supa Matute APRN.DIRECTOR MARKETING [address] [place] [address] [employer] Family [facility] 02/15/24 Harness Tier Relationship Specialty Start Date End Date Vinh Van MD [address] [place] [address] PCP - General 05/23/08 Nora Branham DO [address] [place] [address] Hematology/Oncology 09/08/22 Reena Peace RN Specialty Rn Unit Manager 09/10/22 Farshad Marie MD [address] [place] [id number] Cardiology 11/19/23 [place] [address] [place] [address] Gynecology 11/19/23 Billie Hwang APRN.DIRECTOR MARKETING [address] [place] [address] [employer] Family Medicine 02/06/24 Patel Escalera MD [address] [place] [address] Radiation Oncology 02/08/24 Supa Matute APRN.DIRECTOR MARKETING [address] [place] [address] [facility] 02/15/24 Harness Tier Relationship Specialty Start Date End Date Vinh Van MD [address] [place] [address] PCP - General 05/23/08 Nora Branham DO [address] [place] [address] Hematology/Oncology 09/08/22 Reena Peace, LEONEL Specialty Rn Unit Manager 09/10/22 Farshad Marie MD [address] [place] [address] Cardiology 11/19/23 [place] [address] [place] [address] Gynecology 11/19/23 Billie Hwang, MAGEN.DIRECTOR MARKETING [address] [place], [place] 774901 On License Of [facility] 02/06/24 Patel Escalera MD [address] [place] [place], [place] 7059[address] Radiation Oncology 02/08/24 Supa Matute APRN.DIRECTOR MARKETING [address] [place] [address] On License Of [facility] 02/15/24 Harness Tier Relationship Specialty Start Date End Date Vinh Van MD [address] [place], [place] 576884 [phone] PCP - General 05/23/08 Nora Branham DO [address] [place] [place], [place] 224521 Hematology/Oncology 09/08/22 Reena Peace RN Specialty Rn Unit Manager 09/10/22 Farshad Marie MD [address] [place] [address] Cardiology 11/19/23 [place] [address] [place] [address] Gynecology 11/19/23 Billie Hwang, MAGEN.DIRECTOR MARKETING [address] [place], [place] 588481 On License Of [facility] 02/06/24 Patel Escalera MD [address] [place] [place], [place] 187401 Radiation Oncology 02/08/24 Supa Matute APRN.DIRECTOR MARKETING [address] [place] [address] [employer] Family Medicine 02/15/24 Harness Tier Relationship Specialty Start Date End Date Vinh Van MD [address] [place], [place] 7325[address] [phone] PCP - General 05/23/08 Nora Branham DO [address] [place] [address] Hematology/Oncology 09/08/22 Reena Peace RN Specialty Rn Unit Manager 09/10/22 Farshad Marie MD [address] [place] [address] Cardiology 11/19/23 [place] [address] [place] [address] Gynecology 11/19/23 Billie Hwang APRN.DIRECTOR MARKETING [address] [place] [address] [employer] [facility] 02/06/24 Patel Escalera MD [address] [place] [address] Radiation Oncology 02/08/24 Supa Matute APRN.DIRECTOR MARKETING [address] [place] [address] [employer] Family Medicine 02/15/24 Harness Tier Relationship Specialty Start Date End Date Vinh Van MD [address] [place] [address] PCP - General 05/23/08 Nora Branham DO [address] [place] [address] Hematology/Oncology 09/08/22 Reena Peace, LEONEL Specialty Rn Unit Manager 09/10/22 Farshad Marie MD [address] [place] [address] Cardiology 11/19/23 [place] [address] [place] [address] Gynecology 11/19/23 Billie Hwang APRN.DIRECTOR MARKETING [address] [place] [address] [employer] [facility] 02/06/24 Patel Escalera MD [address] [place] [address] Radiation Oncology 02/08/24 Supa Matute APRN.DIRECTOR MARKETING [address] [place] [address] [employer] [facility] 02/15/24 Harness Tier Relationship Specialty Start Date End Date Vinh Van MD [address] [place] [address] PCP - General 05/23/08 Nora Branham DO [address] [place], [place] 421701 [phone] Hematology/Oncology 09/08/22 Reena Peace RN Specialty Rn Unit Manager 09/10/22 Farshad Marie MD [address] [place], [place] 9244895 Cardiology 11/19/23 [place] [address] [place], [place] 1024906 Gynecology 11/19/23 Billie Hwang APRN.DIRECTOR MARKETING [address] [place] [address] [employer] Family Medicine 02/06/24 Patel Escalera MD [address] [place] [place], [place] 00[address] [phone] Radiation Oncology 02/08/24 Supa Matute APRN.DIRECTOR MARKETING [address] [place] [address] [facility] 02/15/24 Harness Tier Relationship Specialty Start Date End Date Vinh Van MD [address] [place] [address] PCP - General 05/23/08 Nora Branham DO [address] [place] [address] Hematology/Oncology 09/08/22 Reena Peace RN Specialty Rn Unit Manager 09/10/22 Farshad Marie MD [address] [place], [place] 9879295 Cardiology 11/19/23 [place] [address] [place] [address] Gynecology 11/19/23 Billie Hwang APRN.DIRECTOR MARKETING [address] [place] [address] [employer] Family Medicine 02/06/24 Patel Escalera MD [address] [place] [address] Radiation Oncology 02/08/24 Supa Matute APRN.DIRECTOR MARKETING [address] [place] [address] [employer] [facility] 02/15/24 Harness Tier Relationship Specialty Start Date End Date Vinh Van MD [address] [place] [address] PCP - General 05/23/08 Nora Branham DO [address] [place] [address] Hematology/Oncology 09/08/22 Reena Peace, LEONEL Specialty Rn Unit Manager 09/10/22 Farshad Marie MD [address] [place] [address] Cardiology 11/19/23 [place] [address] [place] [address] Gynecology 11/19/23 Billie Hwang APRN.DIRECTOR MARKETING [address] [place], [place] 412211 [facility] 02/06/24 Patel Escalera MD [address] [place], [place] 82710[address] Radiation Oncology 02/08/24 Supa Matute APRN.DIRECTOR MARKETING [address] [place], [place] [id number] On License Of [facility] 02/15/24 Harness Tier Relationship Specialty Start Date End Date Vinh Van MD [address] [place], [place] [id number] PCP - General 05/23/08 Nora Branham DO [address] [place], [place] 55967[address] Hematology/Oncology 09/08/22 Reena Peace RN Specialty Rn Unit Manager 09/10/22 Farshad Marie MD [address] [place] [address] Cardiology 11/19/23 [place] [address] [place] [address] Gynecology 11/19/23 Billie Hwang APRN.DIRECTOR MARKETING [address] [place], [place] [id number] On License Of [facility] 02/06/24 Patel Escalera MD [address] [place] [address] Radiation Oncology 02/08/24 Supa Matute APRN.DIRECTOR MARKETING [address] [place] [address] On License Of [facility] 02/15/24 Harness Tier Relationship Specialty Start Date End Date Vinh Van MD [address] [facility] [place] [address] PCP - General 05/23/08 Nora Branham DO [address] [place], [place] 161031 Hematology/Oncology 09/08/22 Reena Peace RN Specialty Rn Unit Manager 09/10/22 Farshad Marie MD [address] [place] [address] Cardiology 11/19/23 [place] [address] [place] [address] Gynecology 11/19/23 Billie Hwang APRN.DIRECTOR MARKETING [address] [place] [address] On License Of [facility] 02/06/24 Patel Escalera MD [address] [place] [address] Radiation Oncology 02/08/24 Supa Matute APRN.DIRECTOR MARKETING [address] [place] [address] [employer] Family Medicine 02/15/24 Harness Tier Relationship Specialty Start Date End Date Vinh Van MD [address] [place] [address] PCP - General 05/23/08 Nora Branham DO [address] [place] [address] Hematology/Oncology 09/08/22 Reena Peace, LEONEL Specialty Rn Unit Manager 09/10/22 Farshad Marie MD [address] [place] [address] Cardiology 11/19/23 [place] [address] [place] [address] Gynecology 11/19/23 Billie Hwnag, MAGEN.DIRECTOR MARKETING [address] [place] [address] [employer] Family Medicine 02/06/24 Patel Escalera MD [address] [place] [address] Radiation Oncology 02/08/24 Supa Matute NETSUITE CONSULTANT.DIRECTOR MARKETING [address] [place] [address] [employer] [facility] 02/15/24 Harness Tier Relationship Specialty Start Date End Date Vinh Van MD [address] [place] [address] PCP - General 05/23/08 Nora Branham DO [address] [place] [address] Hematology/Oncology 09/08/22 Reena Peace, RN Specialty Rn Unit Manager 09/10/22 Farshad Marie MD [address] [place] [address] Cardiology 11/19/23 [place] [address] [place] [address] Gynecology 11/19/23 Billie Hwang APRN.DIRECTOR MARKETING [address] [place] [address] [employer] Family Medicine 02/06/24 Patel Escalera MD [address] [place] [address] Radiation Oncology 02/08/24 Supa Matute APRN.DIRECTOR MARKETING [address] [place] [address] [employer] [facility] 02/15/24 Harness Tier Relationship Specialty Start Date End Date Vinh Van MD [address] [place] [address] PCP - General 05/23/08 Nora Branham DO [address] [place] [address] Hematology/Oncology 09/08/22 Reena Peace RN Specialty Rn Unit Manager 09/10/22 Farshad Marie MD [address] [place], [place] [id number] Cardiology 11/19/23 [place] [address] [place], [place] 0989706 Gynecology 11/19/23 Billie Hwang, NETSUITE CONSULTANT.DIRECTOR MARKETING [address] [place] [address] [employer] Family Medicine 02/06/24 Patel Escalera MD [address] [place] [address] Radiation Oncology 02/08/24 Supa Matute, NETSUITE CONSULTANT.DIRECTOR MARKETING [address] [place] [address] [employer] [facility] 02/15/24 Harness Tier Relationship Specialty Start Date End Date Vinh Van MD [address] [place] [address] PCP - General 05/23/08 Nora Branham DO [address] [place] [address] Hematology/Oncology 09/08/22 Reena Peace, LEONEL Specialty Rn Unit Manager 09/10/22 Farshad Marie MD [address] [place] [address] Cardiology 11/19/23 [place] [address] [place] [address] Gynecology 11/19/23 Billie Hwang APRN.DIRECTOR MARKETING [address] [place] [address] [employer] Family Medicine 02/06/24 Patel Escalera MD [address] [place], [place] 101309 [phone] Radiation Oncology 02/08/24 Supa Matute APRN.DIRECTOR MARKETING [address] [place] [address] [employer] Family [facility] 02/15/24 Harness Tier Relationship Specialty Start Date End Date Vinh Van MD [address] [place], [place] 304537 [phone] PCP - General 05/23/08 Nora Branham DO [address] [place] [address] Hematology/Oncology 09/08/22 Reena Peace RN Specialty Rn Unit Manager 09/10/22 [place] [address] [place] [address] Cardiology 11/19/23 [place] [address] [place] [address] Gynecology 11/19/23 Billie Hwang APRN.DIRECTOR MARKETING [address] [place], [place] [id number] [employer] [facility] 02/06/24 Patel Escalera MD [address] [place] [address] Radiation Oncology 02/08/24 Supa Matute APRN.DIRECTOR MARKETING [address] [place] [address] On License Of [facility] 02/15/24 Harness Tier Relationship Specialty Start Date End Date Vinh Van MD [address] [place] [address] PCP - General 05/23/08 Nora Branham DO [address] [place] [id number] [phone] Hematology/Oncology 09/08/22 Reena Peace, LEONEL Specialty Rn Unit Manager 09/10/22 Farshad Marie MD [address] [place] [address] Cardiology 11/19/23 [place] [address] [place] [address] Gynecology 11/19/23 Billie Hwang APRN.DIRECTOR MARKETING [address] [place] [address] On License Of [facility] 02/06/24 Patel Escalera MD [address] [place], [place] [address] [phone] Radiation Oncology 02/08/24 Supa Matute APRN.DIRECTOR MARKETING [address] [place] [address] [employer] Family Medicine 02/15/24 Harness Tier Relationship Specialty Start Date End Date Vinh Van MD [address] [place] [address] PCP - General 05/23/08 Nora Branham DO [address] [place] [address] Hematology/Oncology 09/08/22 Reena Peace RN Specialty Rn Unit Manager 09/10/22 Farshad Marei MD [address] [place] [address] Cardiology 11/19/23 [place] [address] [place] [address] Gynecology 11/19/23 Billie Hwang APRN.DIRECTOR MARKETING [address] [place] [address] [employer] Family Medicine 02/06/24 Patel Escalera MD [address] [place] [address] Radiation Oncology 02/08/24 Supa Matute APRN.DIRECTOR MARKETING [address] [place] [address] [employer] [facility] 02/15/24 Harness Tier Relationship Specialty Start Date End Date Vinh Van MD [address] [place] [address] PCP - General 05/23/08 Nora Branham DO [address] [place] [address] Hematology/Oncology 09/08/22 Reena Peace RN Specialty Rn Unit Manager 09/10/22 Farshad Marie MD [address] [place], [place] 4474895 Cardiology 11/19/23 [place] [address] [place] [address] Gynecology 11/19/23 Billie Hwang APRN.DIRECTOR MARKETING [address] [place] [address] [employer] Family Medicine 02/06/24 Patel Escalera MD [address] [place] [address] Radiation Oncology 02/08/24 Supa Matute APRN.DIRECTOR MARKETING [address] [place] [address] [employer] Family Medicine 02/15/24 Harness Tier Relationship Specialty Start Date End Date Vinh Van MD [address] [place] [address] PCP - General 05/23/08 Nora Branham DO [address] [place] [address] Hematology/Oncology 09/08/22 Reena Peace RN Specialty Rn Unit Manager 09/10/22 Farshad Marie MD [address] [place] [address] Cardiology 11/19/23 [place] [address] [place] [id number] Gynecology 11/19/23 Billie Hwang, NETSUITE CONSULTANT.DIRECTOR MARKETING [address] [place] [id number] [employer] Family Medicine 02/06/24 Patel Escalera MD [address] [place], [place] 4618[address] [phone] Radiation Oncology 02/08/24 Supa Matute, NETSUITE CONSULTANT.DIRECTOR MARKETING [address] [place] [address] [employer] [facility] 02/15/24 Harness Tier Relationship Specialty Start Date End Date Vinh Van MD [address] [place] [address] PCP - General 05/23/08 Nora Branham DO [address] [place] [address] Hematology/Oncology 09/08/22 Reena Peace, LEONEL Specialty Rn Unit Manager 09/10/22 Farshad Marie MD [address] [place] [address] Cardiology 11/19/23 [place] [address] [place] [phone] Gynecology 11/19/23 Billie Hwang APRN.DIRECTOR MARKETING [address] [place] [address] [employer] Family Medicine 02/06/24 Patel Escalera MD [address] [place], [place] [id number] Radiation Oncology 02/08/24 Supa Matute APRN.DIRECTOR MARKETING [address] [place], [place] [id number] [facility] 02/15/24 Harness Tier Relationship Specialty Start Date End Date Vinh Van MD [address] [place], [place] [id number] PCP - General 05/23/08 Nora Branham DO [address] [facility] [place] [place] [id number] Hematology/Oncology 09/08/22 Reena Peace RN Specialty Rn Unit Manager 09/10/22 Farshad Marie MD [address] [place] [address] Cardiology 11/19/23 [place] [address] [place] [address] Gynecology 11/19/23 Billie Hwang APRN.DIRECTOR MARKETING [address] [place] [address] [employer] Family Medicine 02/06/24 Patel Escalera MD [address] [place] [address] Radiation Oncology 02/08/24 Supa Matute APRN.DIRECTOR MARKETING [address] [place] [address] [employer] [facility] 02/15/24 Harness Tier Relationship Specialty Start Date End Date Vinh Van MD [address] [place], [place] 709122 [phone] PCP - General 05/23/08 Nora Branham DO [address] [place] [address] Hematology/Oncology 09/08/22 Reena Peace RN Specialty Rn Unit Manager 09/10/22 Farshad Marie MD [address] [place] [address] Cardiology 11/19/23 [place] [address] [place] [address] Gynecology 11/19/23 Billie Hwang APRN.DIRECTOR MARKETING [address] [place] [address] [employer] [facility] 02/06/24 Patel Escalera MD [address] [place], [place] [id number] [phone] Radiation Oncology 02/08/24 Supa Matute APRN.DIRECTOR MARKETING [address] [place] [address] [employer] Family [facility] 02/15/24 Harness Tier Relationship Specialty Start Date End Date Vinh Van MD [address] [place], [place] 378356 [phone] PCP - General 05/23/08 Nora Branham DO [address] [place], [place] 2[address]10 [phone] Hematology/Oncology 09/08/22 Reena Peace RN Specialty Rn Unit Manager 09/10/22 [place] [address] [place] [address] Cardiology 11/19/23 [place] [address] [place] [address] Gynecology 11/19/23 Billie Hwang APRN.DIRECTOR MARKETING [address] [place] [address] [facility] 02/06/24 Patel Escalera MD [address] [place] [address] Radiation Oncology 02/08/24 Supa Matute, NETSUITE CONSULTANT.DIRECTOR MARKETING [address] [place] [address] On License Of [facility] 02/15/24 Harness Tier Relationship Specialty Start Date End Date Vinh Van MD [address] [place] [address] PCP - General 05/23/08 Nora Branham DO [address] [facility] [place] [address] Hematology/Oncology 09/08/22 Reena Peace RN Specialty Rn Unit Manager 09/10/22 Farshad Marei MD [address] [place] [address] Cardiology 11/19/23 [place] [address] [place] [address] Gynecology 11/19/23 Billie Hwang APRN.DIRECTOR MARKETING [address] [place] [address] [employer] Family Medicine 02/06/24 Patel Escalera MD [address] [place] [address] Radiation Oncology 02/08/24 Supa Matute NETSUITE CONSULTANT.DIRECTOR MARKETING [address] [place] [address] [employer] [facility] 02/15/24 Harness Tier Relationship Specialty Start Date End Date Vinh Van MD [address] [place] [address] PCP - General 05/23/08 Nora Branham DO [address] [place] [address] Hematology/Oncology 09/08/22 Reena Peace RN Specialty Rn Unit Manager 09/10/22 Farshad Marie MD [address] [place], [place] 9047795 Cardiology 11/19/23 [place] [address] [place] [address] Gynecology 11/19/23 Billie Hwang APRN.DIRECTOR MARKETING [address] [place] [address] [employer] [facility] 02/06/24 Patel Escalera MD [address] [place], [place] [phone] Radiation Oncology 02/08/24 Supa Matute APRN.DIRECTOR MARKETING [address] [place], [place] 360971 On License Of [facility] 02/15/24 Harness Tier Relationship Specialty Start Date End Date Vinh Van MD [address] [place], [place] 458661 PCP - General 05/23/08 Nora Branham DO [address] [place] [address] Hematology/Oncology 09/08/22 Reena Peace, LEONLE Specialty Rn Unit Manager 09/10/22 Farshad Marie MD [address] [place] [address] Cardiology 11/19/23 [place] [address] [place] [address] Gynecology 11/19/23 Billie Hwang APRN.DIRECTOR MARKETING [address] [place] [id number] [employer] [facility] 02/06/24 Patel Escalera MD [address] [place], [place] [phone] Radiation Oncology 02/08/24 Supa Matute APRN.DIRECTOR MARKETING [address] [place], [place] [id number] On License Of [facility] 02/15/24 Harness Tier Relationship Specialty Start Date End Date Vinh Van MD [address] [place], [place] [id number] PCP - General 05/23/08 Nora Branham DO [address] [place], [place] [id number] Hematology/Oncology 09/08/22 Reena Peace, LEONEL Specialty Rn Unit Manager 09/10/22 Farshad Marie MD [address] [place] [address] Cardiology 11/19/23 [place] [address] [place] [address] Gynecology 11/19/23 Billie Hwang APRN.DIRECTOR MARKETING [address] [place] [address] On License Of [facility] 02/06/24 Patel Escalera MD [address] [place], [place] [id number] Radiation Oncology 02/08/24 Supa Matute APRN.DIRECTOR MARKETING [address] [place] [address] [employer] Family Medicine 02/15/24 Harness Tier Relationship Specialty Start Date End Date Vinh Van MD [address] [place] [address] PCP - General 05/23/08 Nora Branham DO [address] [place] [address] Hematology/Oncology 09/08/22 Reena Peace, RN Specialty Rn Unit Manager 09/10/22 Farshad Marie MD [address] [place] [address] Cardiology 11/19/23 [place] [address] [place] [address] Gynecology 11/19/23 Patel Escalera MD [address] [place], [place] 136375 [phone] Radiation Oncology 02/08/24 Supa Matute APRN.DIRECTOR MARKETING [address] [place] [address] [employer] [facility] 02/15/24 Harness Tier Relationship Specialty Start Date End Date Vinh Van MD [address] [place] [address] PCP - General 05/23/08 Nora Branham DO [address] [place] [address] Hematology/Oncology 09/08/22 Reena Peace RN Specialty Rn Unit Manager 09/10/22 Farshad Marie MD [address] [place] [address] Cardiology 11/19/23 [place] [address] [place] [address] Gynecology 11/19/23 Patel Escalera MD [address] [place], [place] 8[address]112 [phone] Radiation Oncology 02/08/24 Supa Matute APRN.[facility] [address] [place] [address] [employer] Family Medicine 02/15/24 Harness Tier Relationship Specialty Start Date End Date Vinh Van MD [address] [place], [place] [id number] PCP - General 05/23/08 Nora Branham DO [address] [place] [address] Hematology/Oncology 09/08/22 Reena Peace RN Specialty Rn Unit Manager 09/10/22 Farshad Marie MD [address] [place] [address] Cardiology 11/19/23 [place] [address] [place] [address] Gynecology 11/19/23 Patel Escalera MD [address] [place] [address] Radiation Oncology 02/08/24 Supa Matute APRN.DIRECTOR MARKETING [address] [place] [address] [employer] [facility] 02/15/24 Harness Tier Relationship Specialty Start Date End Date Vinh Van MD [address] [place] [address] PCP - General 05/23/08 Nora Branham DO [address] [place] [address] Hematology/Oncology 09/08/22 Reena Peace RN Specialty Rn Unit Manager 09/10/22 Farshad Marie MD [address] [place] [address] Cardiology 11/19/23 [place] [address] [place] [id number] Gynecology 11/19/23 Patel Escalera MD [address] [place] [address] [phone] Radiation Oncology 02/08/24 Supa Matute APRN.DIRECTOR MARKETING [address] [place] [address] [employer] [facility] 02/15/24 Harness Tier Relationship Specialty Start Date End Date Vinh Van MD [address] [place] [address] PCP - General 05/23/08 Nora Branham DO [address] [place] [address] Hematology/Oncology 09/08/22 Reena Peace RN Specialty Rn Unit Manager 09/10/22 Farshad Marie MD [address] [place] [address] Cardiology 11/19/23 [place] [address] [place], [place] 5527006 Gynecology 11/19/23 Patel Escalera MD [address] [place] [address] Radiation Oncology 02/08/24 Supa Matute APRN.DIRECTOR MARKETING [address] [place] [address] [employer] Family Medicine 02/15/24 Harness Tier Relationship Specialty Start Date End Date Vinh Van MD [address] [place] [address] PCP - General 05/23/08 Nora Branham DO [address] [place] [address] Hematology/Oncology 09/08/22 Reena Peace RN Specialty Rn Unit Manager 09/10/22 Farshad Marie MD [address] [place] [phone] Cardiology 11/19/23 [place] [address] [place] [address] Gynecology 11/19/23 Patel Escalera MD [address] [place], [place] [address] [phone] Radiation Oncology 02/08/24 Supa Matute APRN.[facility] [address] [place], [place] 185841 [employer] Family [facility] 02/15/24 Harness Tier Relationship Specialty Start Date End Date Vinh Van MD [address] [place], [place] [id number] PCP - General 05/23/08 Nora Branham DO [address] [place], [place] 48[address] Hematology/Oncology 09/08/22 Reena Peace RN Specialty Rn Unit Manager 09/10/22 Farshad Marie MD [address] [place] [phone] Cardiology 11/19/23 [place] [address] [place] [address] Gynecology 11/19/23 Patel Escalera MD [address] [place], [place] [phone] Radiation Oncology 02/08/24 Supa Matute APRN.DIRECTOR MARKETING [address] [place], [place] 870286 [phone] [employer] [facility] 02/15/24 Harness Tier Relationship Specialty Start Date End Date Vinh Van MD [address] [place], [place] 296274 [phone] PCP - General 05/23/08 Nora Branham DO [address] [place], [place] 843209 [phone] Hematology/Oncology 09/08/22 Reena Peace RN Specialty Rn Unit Manager 09/10/22 Farshad Marie MD [address] [place], [place] 6337195 Cardiology 11/19/23 [place] [address] [place] [address] Gynecology 11/19/23 Patel Escalera MD [address] [place], [place] [address] [phone] Radiation Oncology 02/08/24 Supa Matute APRN.DIRECTOR MARKETING [address] [place], [place] 602563 [phone] [employer] [facility] 02/15/24 Harness Tier Relationship Specialty Start Date End Date Vinh Van MD [address] [place], [place] 590334 [phone] PCP - General 05/23/08 Nora Branham DO [address] [place] [address] Hematology/Oncology 09/08/22 Reena Peace RN Specialty Rn Unit Manager 09/10/22 Farshad Marie MD [address] [place], [place] 5044395 Cardiology 11/19/23 [place] [address] [place] [address] Gynecology 11/19/23 Patel Escalera MD [address] [place] [address] Radiation Oncology 02/08/24 Supa Matute APRN.DIRECTOR MARKETING [address] [place] [address] [employer] Family [facility] 02/15/24 Harness Tier Relationship Specialty Start Date End Date Vinh Van MD [address] [place] [address] PCP - General 05/23/08 Nora Branham DO [address] [place] [address] Hematology/Oncology 09/08/22 Reena Peace, LEONEL Specialty Rn Unit Manager 09/10/22 Farshad Marie MD [address] [place], [place] 1378395 Cardiology 11/19/23 [place] [address] [place] [address] Gynecology 11/19/23 Patel Escalera MD [address] [place], [place] 667[address] Radiation Oncology 02/08/24 Supa Matute APRN.DIRECTOR MARKETING [address] [place], [place] 761591 [phone] [employer] Family Medicine 02/15/24 Harness Tier Relationship Specialty Start Date End Date Vinh Van MD [address] [place], [place] [id number] PCP - General 05/23/08 Nora Branham DO [address] [place], [place] 1911[address] Hematology/Oncology 09/08/22 Reena Peace, RN Specialty Rn Unit Manager 09/10/22 [place] [address] [place] [address] Cardiology 11/19/23 [place] [address] [place] [address] Gynecology 11/19/23 Patel Escalera MD [address] [place], [place] [phone] Radiation Oncology 02/08/24 Supa Matute APRN.DIRECTOR MARKETING [address] [place], [place] [id number] [phone] [employer] [facility] 02/15/24 Harness Tier Relationship Specialty Start Date End Date Vinh Van MD [address] [place], [place] [id number] PCP - General 05/23/08 Nora Branham DO [address] [place], [place] [id number] Hematology/Oncology 09/08/22 Reena Peace, RN Specialty Rn Unit Manager 09/10/22 Farshad Marie MD [address] [place] [address] Cardiology 11/19/23 [place] [address] [place] [address] Gynecology 11/19/23 Patel Escalera MD [address] [place], [place] [phone] Radiation Oncology 02/08/24 Supa Matute APRN.DIRECTOR MARKETING [address] [place], [place] [id number] [facility] 02/15/24 Reason for Visit (unrecogniz ed section and content) Reason Comments Chemotherapy Treatment Specialty Diagnoses / Procedures Referred By Contac t Referred To Contact Diagnoses Carcinomatosis (HCC) Endometrial cancer (HCC) Secondary malignancy of iliac lymph nodes (HCC) Procedures CARBOPLATIN INJECTION PALONOSETRON HCL Nora Branham DO [address] [facility] [place] [address] [facility] [address] [place] [address] Referral ID Status Reason Start Date Expiration Date V isits Requested Visits Authorized [id number] Authorized 11/22/2023 03/27/2024 6 6 Reason Comments Follow Up Specialty Diagnoses / Procedures Referred By Contac t Referred To Contact Procedures CARDIOVASCULAR MEDICINE OP FOLLOW UP APPT ORDER Farshad Marie MD [address] [place] [phone] Referral ID Status Reason Start Date Expiration Date Visits Requested Visits Authorized [id number] Ref Not Required PCP Requested Referral 04/02/2023 04/01/2024 1 1 Reason Comments Non-Chemotherapy Treatment Specialty Diagnoses / Procedures Referred By Contac t Referred To Contact Diagnoses Endometrial cancer (HCC) Procedures PACLITAXEL INJECTION CARBOPLATIN INJECTION PALONOSETRON HCL INJ PEMBROLIZUMAB Nora Branham, DO [address] [place] [address] [facility] [address] [place] [address] Referral ID Status Reason Start Date Expiration Date V isits Requested Visits Authorized [id number] Authorized 08/14/2022 04/26/2023 10 10 Reason Comments Physical Follow Up Reason Comments Insurance Authorization Betamethasone Reason Comments 08-26-2021 Colon ASC Reason Comments Refill Request Reason Comments Follow Up 3 month for BP Reason Comments Primary Care Pharmacy Appt Reason Comments Results Labs Orders Reason Comments Primary Care Pharmacy Appointment Reason Comments Allied Health Visit DM Reason Comments Patient Assistance Evelina Infante (Maria Inesi ty) Reason Comments Follow Up 3 month follow up Reason Comments Results labs Reason Comments Appointment Reason Comments Diabetes Reason Comments Forms Reason Onset Date Comments Refill Request 03/23/2022 Reason Comments Acute Visit Urinary burning, vickie quency Reason Comments Results Urine Reason Comments Acute Visit lower abdominal pain Reason Comments Results Orders US Kidney/Bladder Reason Comments Orders Reason Comments Results Ct Abdomen/Pelvis AB NORMAL FINDINGS Orders Reason Comments Results Orders US transvaginal and Lab Specialty Diagnoses / Procedures Referred By Contac t Referred To Contact Gynecology Diagnoses Elevated CA-125 Endometrial thickening on ultrasound Abnormal CT of the abdomen Procedures CONSULT TO GYNECOLOGY OFFICE/OUTPATIENT NEW HIGH MDM 60-74 MINUTES Billie Hwang, NETSUITE CONSULTANT.DIRECTOR MARKETING [address] [place] [address] Referral ID Status Reason Start Date Expiration Date Visits Requested Visits Authorized [id number] Pending Review PCP Requested Referral Auto-Generate d Referral 06/24/2022 06/24/2023 1 1 Reason Onset Date Comments Refill Request 07/10/2022 Reason Comments Post-Op Visit Reason Comments Missed Appointment Reason Comments Post-Op Visit Reason Comments New Patient Reason Comments Care Coordination Introduction Reason Comments Consult Specialty Diagnoses / Procedures Referred By Contac t Referred To Contact Oncology Diagnoses Endometrial cancer (HCC) Procedures CONSULT TO ONCOLOGY OFFICE/OUTPATIENT [facility] MDM 60-74 MINUTES Zora Cason, NETSUITE CONSULTANT.DIRECTOR MARKETING [address] [place] [address] Referral ID Status Reason Start Date Expiration Date Visits Requested Visits Authorized [id number] Pending Review PCP Requested Referral 08/12/2022 08/12/2023 1 1 Reason Comments AVS 08/14 CHEMO START Reason Comments Follow Up Reason Comments Consult Port placement. Specialty Diagnoses / Procedures Referred By Contac t Referred To Contact General Surgery Diagnoses Endometrial cancer (HCC) Procedures CONSULT TO GENERAL SURGERY OFFICE/OUTPATIENT [facility] MDM 60-74 MINUTES Nora Branham, [address] [place] [address] Referral ID Status Reason Start Date Expiration Date Visits Requested Visits Authorized [id number] Pending Review PCP Requested Referral 08/14/2022 08/14/2023 1 1 Reason Comments Medication Request Reason Comments endometrial cancer Specialty Diagnoses / Procedures Referred By Contac t Referred To Contact Diagnoses Endometrial cancer (HCC) Procedures CONSULT TO MEDICAL GENETICS - CANCER MEDICAL GENETICS COUNSELING EACH 30 [place] [address] [place] [address] [address] Referral ID Status Reason Start Date Expiration Date Visits Requested Visits Authorized [id number] Pending Review PCP Requested Referral Auto-Generate d Referral 08/12/2022 08/12/2023 1 1 Reason Comments Rn Unit Manager - Other C1D1 Post Treat ment Call (Carboplatin/Taxol) Reason Comments Care Coordination Toxicity Check Reason Comments Future Appointment Reason Comments Results Reason Comments Care Coordination Immunotherapy Teachi ng Reason Onset Date Comments Refill Request 09/24/2022 Reason Comments Reason Comments Keytruda Assistance Reason Comments Blood Draw (CVAD) Reason Comments Blood Draw (CVAD) Established Patient Reason Comments AVS 10/13 Reason Comments Research F/U Reason Comments Established Patient Reason Comments Care Coordination CYCLE 1/DAY 1 POST T REATMENT CALL Reason Comments Consult EGD/ Dysphagia Reason Comments Follow Up EGD Reason Comments Blood Draw (CVAD) EKG Reason Comments Established Patient Reason Comments CVAD Access Reason Comments Reminder Call Reason Comments Results Reason Comments Radiology US Specialty Diagnoses / Procedures Referred By Contac t Referred To Contact US IMAGING Diagnoses Adnexal cyst Vaginal bleeding Abnormal CT of the abdomen Procedures US FEMALE PELVIS TRANSABD LTD US PELVIC NONOBSTETRIC IMAGE DCMTN LIMITED/F/U Billie Hwang, NETSUITE CONSULTANT.DIRECTOR MARKETING [address] [place] [phone] [facility] [place] [address] Referral ID Status Reason Start Date Expiration Date V isits Requested Visits Authorized [id number] Closed Auto-Generate d Referral 06/17/2022 07/17/2023 [address] Specialty Diagnoses / Procedures Referred By Contac t Referred To Contact CT IMAGING Diagnoses Endometrial cancer (HCC) Procedures CT CHEST W IVCON DIAGNOSTIC COMPUTED TOMOGRAPHY THORAX W/CONTRAST Zora Cason, NETSUITE CONSULTANT.DIRECTOR MARKETING [address] [place] [address] [facility] [place] [address] Referral ID Status Reason Start Date Expiration Date V isits Requested Visits Authorized [id number] Closed Auto-Generate d Referral 08/12/2022 09/11/2023 1 1 Specialty Diagnoses / Procedures Referred By Contac t Referred To Contact CT IMAGING Diagnoses Endometrial cancer (HCC) Procedures CT ABD/PEL W IVCON CT ABD & PELVIS W/CONTRAST Nora Branham, DO [address] [place] [address] Ct Imaging [id number] Referral ID Status Reason Start Date Expiration Date V isits Requested Visits Authorized [id number] Closed Auto-Generate d Referral 10/13/2022 11/12/2023 [address] Specialty Diagnoses / Procedures Referred By Contac t Referred To Contact CT IMAGING Diagnoses Abnormal ultrasound Adnexal cyst Procedures CT ABD/PEL W IVCON CT ABD & PELVIS W/CONTRAST Billie Hwang, MAGEN.[facility] [address] [place] [address] [place] [address] Referral ID Status Reason Start Date Expiration Date Visits Requested Visits Authorized [id number] Authorized Auto-Generat ed Referral 06/11/2022 07/11/2023 2 2 Reason Comments Radiology US Specialty Diagnoses / Procedures Referred By Contac t Referred To Contact US IMAGING Diagnoses Flank pain Procedures US KIDNEY/BLADDER US RETROPERITONEAL REAL TIME W/IMAGE COMPLETE Billie Hwang APRN.[employer] [address] [place] [address] [place] [address] Referral ID Status Reason Start Date Expiration Date V isits Requested Visits Authorized [id number] Closed Auto-Generate d Referral 04/09/2022 05/09/2023 1 1 Reason Comments Consult Specialty Diagnoses / Procedures Referred By Contac t Referred To Contact Radiation Oncology Diagnoses Endometrial cancer (HCC) Procedures RAD/ONC CONSULT OFFICE/OUTPATIENT [facility] 60-[place] [address] [place] [address] Referral ID Status Reason Start Date Expiration Date Visits Requested Visits Authorized [id number] Pending Review PCP Requested Referral 01/06/2023 12/30/2023 1 1 Reason Comments Patient Update Reason Onset Date Comments Simulation Request Form 01/12/2023 Reason Comments Patient Question Reason Comments Established Patient Reason Comments 2023 Keytruda Assistance Reason Comments Post Radiation Treatment Follow Up Reason Comments Consult Specialty Diagnoses / Procedures Referred By Contact Referred To Contact Cardiology / CARDIOVASCULAR MEDICINE Diagnoses Endometrial cancer (HCC) Encounter for monitoring cardiotoxic drug therapy Immunotherapy Other cardiomyopathy (HCC) Procedures CONSULT TO CARDIOLOGY OFFICE/OUTPATIENT [facility] 60-74 MINUTES Nora Branham, [address] [place] [address] [address] [place] [address] Referral ID Status Reason Start Date Expiration Date V isits Requested Visits Authorized [id number] Closed PCP Requested Referral 04/02/2023 02/29/2024 1 1 Reason Comments patient update on arthritis pain Reason Onset Date Comments Transition Of Care 04/13/2023 Reason Onset Date Comments Refill Request Refill Request 04/19/2023 Reason Onset Date Comments Refill Request 05/03/2023 Reason Comments cancel appt Reason Onset Date Comments Population Health Navigation Outreach 05/20/2023 Roff AWV/HCC Reason Comments Established Patient Reason Onset Date Comments patient requesting medication not on list 2023 Reason Comments Radiology MRI Specialty Diagnoses / Procedures Referred By Bryan valencia Referred To Contact MR IMAGING Diagnoses Cardiomyopathy, unspecified type (HCC) Acute myocarditis, unspecified myocarditis type Procedures MRI CARDIAC VELOCITY FLOW MAP CARDIAC MRI FOR VELOCITY FLOW MAPPING Farshad Marie MD [address] [place] [address] Mr Imaging [id number] Referral ID Status Reason Start Date Expiration Date V isits Requested Visits Authorized [id number] Closed Auto-Generate d Referral 04/02/2023 05/01/2024 1 1 Reason Comments Rx Refills Reason Onset Date Comments Population Health Navigation Outreach 08/02/2023 Roff [facility] 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 - AWV, Care gaps, HCC gap closure - Jones PCSA Reason Onset Date Comments Refill Request 08/06/2023 Referral ID Status Reason Start Date Expiration Date V isits Requested Visits Authorized [id number] Closed Auto-Generate d Referral 06/08/2023 07/07/2024 [address] Specialty Diagnoses / Procedures Referred By Bryan t Referred To Contact CT IMAGING Diagnoses Endometrial cancer (HCC) Procedures CT ABD/PEL W IVCON CT ABD & PELVIS W/CONTRAST Nora Branham, DO [address] [place] [address] [place] [address] Reason Comments Biopsy Request Reason Comments Orders Reason Onset Date Comments Transition Of Care 08/31/2023 TCM inpatient outreach Reason Onset Date Comments Refill Request 09/06/2023 Reason Onset Date Comments Transition Of Care 09/08/2023 TCM Reason Comments Follow Up Hosp follow up TCM Reason Comments Consult nodules Reason Onset Date Comments Refill Request 10/13/2023 Reason Onset Date Comments Population Health Navigation Outreach 10/14/2023 Lobo Collins PCSA Specialty Diagnoses / Procedures [facility] CT [facility] Diagnoses Endometrial cancer (HCC) Lung nodule Secondary malignancy of iliac lymph nodes (HCC) Procedures CT CHEST WO IVCON DIAGNOSTIC COMPUTED TOMOGRAPHY THORAX W/O CNTRST Nora Branham, DO [address] [place] [address] [place] [address] Referral ID Status Reason Start Date Expiration Date V isits Requested Visits Authorized [id number] Closed Auto-Generate d Referral 08/26/2023 09/24/2024 1 1 Reason Onset Date Comments Refill Request 11/08/2023 Reason Comments Radiology NM Reason Onset Date Comments Refill Request 11/13/2023 Reason Comments Rn Unit Manager - Other Change in treat ment Reason Comments Medication Question Specialty Diagnoses / Procedures [facility] Referred To Contact Diagnoses Carcinomatosis (HCC) Endometrial cancer (HCC) Secondary malignancy of iliac lymph nodes (HCC) Procedures CARBOPLATIN INJECTION PALONOSETRON HCL Nora Branham, DO [address] [place] [address] [facility] [address] [place] [address] Referral ID Status Reason Start Date Expiration Date V isits Requested Visits Authorized [id number] Authorized 11/22/2023 03/27/2024 1 6 Reason Comments Rn Unit Manager - Other C1D1 Post Treat ment Call (Carboplatin) Reason Onset Date Comments ACM MORRO RN 12/02/2023 ER outreach f ollow up Reason Comments Radiology XR Reason Onset Date Comments Refill Request 12/09/2023 Reason Comments Appointment Upcoming appts Reason Comments Transfusion Reason Comments Chronic Respiratory Failure Reason Comments Social Work Services Reason Onset Date Comments Refill Request 01/12/2024 Specialty Diagnoses / Procedures Referred By Contac t Referred To Contact CT IMAGING Diagnoses Endometrial cancer (HCC) Carcinomatosis (HCC) Lung nodules Procedures CT CHEST W IVCON DIAGNOSTIC COMPUTED TOMOGRAPHY THORAX W/CONTRAST Tamara Mari APRN.DIRECTOR MARKETING [address] [place] [address] [place] [address] Referral ID Status Reason Start Date Expiration Date V isits Requested Visits Authorized [id number] Closed Auto-Generate d Referral 01/05/2024 02/03/2025 1 1 Specialty Diagnoses / Procedures Referred By Contac t Referred To Contact CT IMAGING Diagnoses Endometrial cancer (HCC) Carcinomatosis (HCC) Lung nodules Procedures CT CHEST W IVCON DIAGNOSTIC COMPUTED TOMOGRAPHY THORAX W/CONTRAST Tamara Mari APRN.[employer] [address] [place] [address] [place] [address] Reason Onset Date Comments Simulation Request Form 02/11/2024 Reason Comments Patient Education Reason Comments Radiotherapy On-treatment Visit Reason Onset Date Comments Refill Request 03/13/2024 Referral ID Status Reason Start Date Expiration Date V isits Requested Visits Authorized [id number] Authorized 11/22/2023 12/05/2024 17 17 Reason Onset Date Comments Refill Request 03/25/2024 Reason Comments Recheck Reason Comments Radiology CT Specialty Diagnoses / Procedures [facility] Ref[facility] To Contact CT IMAGING Diagnoses Endometrial cancer (HCC) Carcinomatosis (HCC) Procedures CT ABD/PEL W IVCON CT ABD & PELVIS W/CONTRAST Nora Branham, DO [address] [place] [address] Phone: tel: fax: [place] [address] Referral ID Status Reason Start Date Expiration Date V isits Requested Visits Authorized [id number] Closed Auto-Generate d Referral 03/15/2024 04/14/2025 1 1 Reason Comments Care Coordination Change in Treatment Reason Comments AVS 04/14 Reason Comments Spirometry Specialty Diagnoses / Procedures Referred By Contac t Referred To Contact [facility] Diagnoses Chronic obstructive pulmonary disease, unspecified COPD type (HCC) Procedures SPIROMETRY WITH DILATOR IF OBSTRUCTED BRNCDILAT RSPSE SPMTRY PRE&POST-BRNCDILAT ADMN Omar Pamela Boles MD [address] [place] [address] Phone: tel: fax: [facility] [place] [address] [place] [address] Referral ID Status Reason Start Date Expiration Date V isits Requested Visits Authorized [id number] Closed Auto-Generate d Referral 12/21/2023 01/19/2025 1 1 Reason Comments Established Patient 3 month follow up no dules Reason Comments First Time Treatment Education Gemzar Specialty Diagnoses / Procedures Referred By Contac t Referred To Contact Diagnoses Endometrial cancer (HCC) 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) Procedures GEMCITABINE HCL, 200 MG Nora Branham, DO [address] [facility] [place] [address] Phone: tel: fax: Nora Branham, DO [address] [place] [address] Phone: tel: fax: Referral ID Status Reason Start Date Expiration Date V isits Requested Visits Authorized [id number] Authorized 04/19/2024 03/19/2025 24 24 Reason Comments Rn Unit Manager - Other C1D1 Post Treat ment Call (Gemzar) Reason Comments Care Coordination Fever, Nausea, Hyper tension, Tachycardia Reason Comments Home Health Orders Reason Comments home health requesting verbal order Reason Comments Physical Therapy Plan of Care Reason Comments Hospital F/U Reason Comments Follow Up Hospital follow up Reason Comments Faxed to [facility] Reason Onset Date Comments Refill Request 05/30/2024 Reason Onset Date Comments Refill Request 06/07/2024 Referral ID Status Reason Start Date Expiration Date V isits Requested Visits Authorized [id number] Closed Auto-Generate d Referral 05/23/2024 06/22/2025 1 1 Reason Comments AVS Reason Comments Rn Unit Manager - Other Chemotherapy Ed ucation Avastin Reason Onset Date Comments Refill Request 07/07/2024 Specialty Diagnoses / Procedures Referred By Contac t Referred To Contact Diagnoses Carcinomatosis (HCC) Endometrial cancer (HCC) Secondary malignancy of iliac lymph nodes (HCC) Procedures INJ MVASI 10 MG Nora Branham, DO [address] [place] [address] Phone: tel: fax: Nora Branham, DO [address] [place] [address] Phone: tel: fax: Referral ID Status Reason Start Date Expiration Date V isits Requested Visits Authorized [id number] Authorized 07/07/2024 07/03/2025 18 18 Reason Comments Rn Unit Manager - Other C1D1 Post Treat ment (Avastin) Reason Comments Patient Update hypertension Reason Onset Date Comments Refill Request 10/13/2024 Reason Onset Date Comments Refill Request 10/14/2024 Reason Onset Date Comments Refill Request 11/14/2024 Goals (unrecognized section and content) Goals may be documented in a n alternate section Inactive Administered Medications - up to 3 most recent administrations Administered Medications (un recognized section and content) Medication Order MAR Action Action Date Dose Rate Site magnesium sulfate in sterile water 4 g in 100 mL iv piggyback 4 g, INTRAVENOUS, at 50 mL/hr, Administer over 2 Hours, ONCE, 1 dose, On Wed04/07/23 at 1030, Magnesium Sulfate IV bolus will be infused at a rate of 1 gram/hr. The following care areas may administer a magnesium sulfate bolus at a rate of 2 grams/hr if necessary: 1) ICUs/PACU/ED 2) Adult Hematology/Oncology 3) Labor and Delivery 4) Cardiac Step Down 5) Headache Clinic The following care areas may administer a magnesium sulfate bolus at a rate of GREATER than 2 grams/hr if necessary: 1) Adult and Pediatric Asthma Exacerbations 2) [place] 3) Pediatric BMT and Hematology/Oncology 4) Eclampsia or Preeclampsia New Bag/Syringe/Bottle 04/07/2023 10:37 AM EST 4 g 50 mL/hr INFORMATION SOURCE (unrecogn ized section and content) DATE CREATED AUTHOR 05/08/2024 [facility] DATE CREATED AUTHOR AUTHOR'S ORGANIZ ATION 05/13/2024 [facility] DATE CREATED AUTHOR AUTHOR'S ORGANIZ ATION 01/03/2025 [facility] DATE CREATED AUTHOR AUTHOR'S ORGANIZ ATION 01/08/2025 [facility] FOR RECORDS PERTAINING TO PATIENTS WHO ARE OR HAVE BEEN ENROLLED IN A CHEMICAL DEPENDENCY/SUBSTANCEABUSE PROGRAM, SOME INFORMATION MAY BE OMITTED. This clinical summary was aggregated from multiple sources. Caution should be exercised in using it in the provision of clinical care. This summary normalizes information from multiple sources, and as a consequence, information in this document may materially change the coding, format and clinical context of patient data. In addition, data may be omitted in some cases. CLINICAL DECISIONS SHOULD BE BASED ON THE PRIMARY CLINICAL RECORDS. [facility] [employer] [facility]. provides no warranty or guarantee of the accuracy or completeness of information in this document.
[2025-01-09 06:52] LABS: Hematocrit 29.6 % (37-47); Hemoglobin 9.9 g/dL (12.0-15.0); Immature Granulocytes Count 0.080 X10^3/uL (0.0-0.0); Mean Corp Hgb Conc 33.4 g/dL (32-36); Mean Corpuscular Volume 93.7 fL (81-99); Mean Platelet Vol. 10.5 fl (6.2-12.0); NRBC Flagged by Analyzer 0 % (0-5); POSITIVE DIFFERENTIAL YES; Platelet Count 175 K/mm3 (150-450); RBC Distribution Width CV 15.4 % (11.6-14.6); RBC Distribution Width SD 53.1 fl (35.1-43.9); Red Blood Count 3.16 M/mm3 (4.2-5.4); White Blood Count 11.5 K/mm3 (4.4-11.0)
[2025-01-09 06:54] LABS: Differential Indicated SCAN CRITERIA MET
[2025-01-09 07:29] LABS: Anion Gap 8 (5-15); BUN 27 mg/dL (4-19); BUN/Creat Ratio 19.0 RATIO (10-20); Calcium,Total 9.1 mg/dL (7.6-11.0); Carbon Dioxide 27.0 mmol/L (21.0-32.0); Chloride 96 mmol/L (98-108); Estimated Creatinine Clearance 47.97 ml/min (50-250); Glucose 193 mg/dL (70-99); Potassium 5.1 mmol/L (3.3-5.1)
[2025-01-09] MEDS: Aspirin E.C. 81 MG Tablet PO (09:01)
[2025-01-09] MEDS: Magnesium Chloride 64 MG Delay Rel.Tablet PO (09:01)
[2025-01-09] MEDS: morphine SR 15 MG Tablet PO (09:04)
--- NOTE | 2025-01-09 09:38 | CASEMGMT ---
Social Work- SW completed referral for [facility] hosp[facility]. Hospitalist and bedside nurse updated. Pt sister updated. SW remains available to follow. JUAN Marcano
--- NOTE | 2025-01-09 10:34 | PCM.PN.HOSP ---
Reason for Visit Chief Complaint: Shortness of breath, confusion Objective Data Objective Data Vital Signs: Vital Signs Temp Pulse Resp BP Pulse Ox O2 Del Method O2 Flow Rate 98.9 F 92 19 H 141/65 H 93 Nasal Cannula 3 01/09/25 08:54 01/09/25 08:54 01/09/25 08:54 01/09/25 08:54 01/09/25 08:54 01/09/25 08:54 01/09/25 08:54 Oxygen Flow Rate (L/min) 3 Oxygen Delivery Method Nasal Cannula Weight: 298 lb 11.622 oz Body Mass Index (BMI) 44.2 Intake & Output: Intake and Output for Last 24 Hours 01/07/25 01/08/25 01/09/25 23:59 23:59 23:59 Intake Total 300 / 300 150 / 150 Balance 300 / 300 150 / 150 Lab / Micro Data 01/09/25 06:27 01/09/25 06:27 Labs: Laboratory Results - last 24 hr 01/08/25 18:32: WBC 12.4 H, RBC 3.28 L, Hgb 9.9 L, Hct 30.9 L, MCV 94.2, MCH 30.2, MCHC 32.0, RDW Std Deviation 54.2 H, RDW Coeff of Casper 15.7 H, Plt Count 153, MPV 10.2, Immature Gran % (Auto) 0.300, Neut % (Auto) 65.9, Lymph % (Auto) 9.4 L, [place] % (Auto) 8.8, Eos % (Auto) 15.4 H, Baso % (Auto) 0.2, Absolute Neuts (auto) 8.2 H, Absolute Lymphs (auto) 1.16, Nucleated RBC % 0, Sodium 131 L, Potassium 4.9, Chloride 93 L, Carbon Dioxide 29.6, Anion Gap 8, BUN 27 H, Creatinine 1.50 H, Est GFR (MDRD) Non-Af 35 L, BUN/Creatinine Ratio 18.1, Glucose 224 H, Calcium 9.3, Total Bilirubin 0.34, Direct Bilirubin 0.17, AST 17, ALT 14, Alkaline Phosphatase 78, Troponin T High Sens 39 H D, NT pro BNP II 298, Total Protein 6.7, Albumin 3.3 L, Globulin 3.4 01/08/25 19:58: PT 14.5, INR 1.1, APTT 38.2 H, Lactic Acid < 1.0 01/08/25 20:37: Troponin T Hi Sens 2 Hr 37 H, NT pro BNP II 286 01/08/25 22:41: Urine Color Yellow, Urine Clarity Clear, Urine pH 5.0, Ur Specific [place] 1.010, Urine Protein 100 H, Urine Glucose (UA) Normal, Urine Ketones Negative, Urine Occult Blood Negative, Urine Nitrite Negative, Urine Bilirubin Negative, Urine Urobilinogen Normal, Ur Leukocyte Esterase Negative, Urine RBC 0 SEEN, Urine WBC 0-5 SEEN, Ur Squamous Epith Cells 0-5 SEEN, Ur Renal Epithelial Cell 0-5 SEEN, Amorphous Sediment 3+, Urine Bacteria 1+, Hyaline Casts 0-5 SEEN, Urine Mucus 0 SEEN 01/09/25 06:24: POC Glucose 185 H 01/09/25 06:27: WBC 11.5 H, RBC 3.16 L, Hgb 9.9 L, Hct 29.6 L, MCV 93.7, MCH 31.3, MCHC 33.4, RDW Std Deviation 53.1 H, RDW Coeff of [place]per 15.4 H, Plt Count 175, MPV 10.5, Immature Gran % (Auto) 0.700, Neut % (Auto) 65.0, Lymph % (Auto) 8.4 L, [place] % (Auto) 7.8, Eos % (Auto) 17.8 H, Baso % (Auto) 0.3, Absolute Neuts (auto) 7.5, Absolute Lymphs (auto) 0.97, Nucleated RBC % 0, Sodium 131 L, Potassium 5.1, Chloride 96 L, Carbon Dioxide 27.0, Anion Gap 8, BUN 27 H, Creatinine 1.41 H, Estim Creat Clear Calc 47.97 L, Est GFR (MDRD) Non-Af 38 L, BUN/Creatinine Ratio 19.0, Glucose 193 H, Calcium 9.1 Radiography Diagnostic Testing: Radiology Impression Chest X-Ray 01/08/25 18:45 IMPRESSION: Moderate right pleural effusion no widening, underlying consolidation not excluded. Reading Location: [facility] Brain CT 01/08/25 22:05 IMPRESSION: No acute intracranial abnormality. Reading Location: [id number] Chest CTA 01/08/25 22:05 IMPRESSION: No pulmonary embolism identified to the segmental level. Evaluation of subsegmental branches is limited due to suboptimal contrast timing. Large right pleural effusion with right lower lobe compressive atelectasis. Superimposed infection or underlying mass cannot be excluded. Right upper lobe 16 mm and right middle lobe 18 mm solid pulmonary nodules, suspicious for metastatic disease or multifocal primary neoplasm. Calcified mediastinal lymph nodes, including a right paratracheal lymph node measuring 13 mm. Coronary artery calcifications and mild atherosclerosis. Status post cholecystectomy. Reading Location: [id number] Physical Exam Narrative Seen and examined I talked to the patient's younger in the room. Patient mild short of breath, confused and disoriented laying on the bed. Physical exam General: Lethargic, fatigued, disoriented to time. Awake. Eyes open HEENT: Atraumatic, PERRLA, EOMI, Normocephalic. Oral: No Gingival or Mucosal Lesions/ Ulcerations Neck: Supple, No JVD, Negative Carotid Bruits Chest wall/Lungs: Air entry diminished more in right lung below fifth costal margin. No crepitations. Cardiovascular: Regular rate and rhythm, Normal S1,S2, No M/G/R Abdomen: Bowel Sounds Present, Soft, Non Tender, Non-Distended : No dysuria. No renal angle tenderness. No suprapubic tenderness. Extremities: Mild bilateral pedal edema, Capillary Refill Less than 3 Seconds Skin: No rashes, No breakdown Musculoskeletal: No Tenderness to Palpation of Joints or Extremities. ROM could not be evaluated Neurological: Generalized decreased mental responsiveness/lethargy. Psych/Mental Status: Flat affect Assessment & Plan Assessment/Plan (1) Pleural effusion on right: (2) Hypoxia: (3) Acute delirium: (4) Type 2 diabetes mellitus: (5) Malignant neoplasm metastatic to endometrium with unknown primary site: PLAN: Plan This 79-year-old female with history of metastatic endometrial cancer was admitted with altered mental status, lethargic and confused worse than baseline. She has been following with palliative care at home. She was unable to make follow-up appointment with oncology 1. Hypoxia secondary to right pleural effusion likely caused by malignancy with suspicion of metastatic pleural effusion: The patient is being admitted on the medical floor. Option was given for ultrasound-guided thoracocentesis but patient would not be a good candidate as high chance of recurrence because of high priority of metastatic pleural effusion. CTA chest shows large right pleural effusion with compressive atelectasis and RUL 16 mm and RML 8 mm solid pulmonary nodule suspicious for metastatic disease. Calcified mediastinal lymph nodes and right peritracheal lymph node 30 mm. PE ruled out Hospice care meeting in afternoon 2. Acute encephalopathy on baseline mild cognitive deficit: Multiple suspected etiology including metabolic, from metastatic cancer 3. Metastatic endometrial cancer–CT confirms neoplasm in the lungs metastatic deposits. Due to recent decline and palliative and hospice care consulted. [facility]. 3. Diabetesmellitus type II glucose was 350 range at home. She was last hospitalized for hypoglycemia. Accu-Chek before meals and at bedtime with Humalog sliding scale coverage and hypoglycemia protocol. 4. DVT prophylaxis–low molecular weight heparin 5. CODE STATUS DNR [employer] [employer] arrest confirmed with family member. DNRCC paper signed Clinical Impression(s) from Imaging Studies Chest X-Ray 01/08/25 18:45 IMPRESSION: Moderate right pleural effusion no widening, underlying consolidation not excluded. [facility] Brain CT 01/08/25 22:05 IMPRESSION: No acute intracranial abnormality. Reading Location: [id number] Chest CTA 01/08/25 22:05 IMPRESSION: No pulmonary embolism identified to the segmental level. Evaluation of subsegmental branches is limited due to suboptimal contrast timing. Large right pleural effusion with right lower lobe compressive atelectasis. Superimposed infection or underlying mass cannot be excluded. Right upper lobe 16 mm and right middle lobe 18 mm solid pulmonary nodules, suspicious for metastatic disease or multifocal primary neoplasm. Calcified mediastinal lymph nodes, including a right paratracheal lymph node measuring 13 mm. Coronary artery calcifications and mild atherosclerosis. Status post cholecystectomy. Reading Location: [id number] Laboratory Results 01/08/25 18:32: WBC 12.4 H, RBC 3.28 L, Hgb 9.9 L, Hct 30.9 L, MCV 94.2, MCH 30.2, MCHC 32.0, RDW Std Deviation 54.2 H, RDW Coeff of Casper 15.7 H, Plt Count 153, MPV 10.2, Immature Gran % (Auto) 0.300, Neut % (Auto) 65.9, Lymph % (Auto) 9.4 L, [place] % (Auto) 8.8, Eos % (Auto) 15.4 H, Baso % (Auto) 0.2, Absolute Neuts (auto) 8.2 H, Absolute Lymphs (auto) 1.16, Nucleated RBC % 0, Sodium 131 L, Potassium 4.9, Chloride 93 L, Carbon Dioxide 29.6, Anion Gap 8, BUN 27 H, Creatinine 1.50 H, Est GFR (MDRD) Non-Af 35 L, BUN/Creatinine Ratio 18.1, Glucose 224 H, Calcium 9.3, Total Bilirubin 0.34, Direct Bilirubin 0.17, AST 17, ALT 14, Alkaline Phosphatase 78, Troponin T High Sens 39 H D, NT pro BNP II 298, Total Protein 6.7, Albumin 3.3 L, Globulin 3.4 01/08/25 19:58: PT 14.5, INR 1.1, APTT 38.2 H, Lactic Acid < 1.0 01/08/25 20:37: Troponin T Hi Sens 2 Hr 37 H, NT pro BNP II 286 01/08/25 22:41: Urine Color Yellow, Urine Clarity Clear, Urine pH 5.0, Ur Specific [place] 1.010, Urine Protein 100 H, Urine Glucose (UA) Normal, Urine Ketones Negative, Urine Occult Blood Negative, Urine Nitrite Negative, Urine Bilirubin Negative, Urine Urobilinogen Normal, Ur Leukocyte Esterase Negative, Urine RBC 0 SEEN, Urine WBC 0-5 SEEN, Ur Squamous Epith Cells 0-5 SEEN, Ur Renal Epithelial Cell 0-5 SEEN, Amorphous Sediment 3+, Urine Bacteria 1+, Hyaline Casts 0-5 SEEN, Urine Mucus 0 SEEN 01/09/25 06:24: POC Glucose 185 H 01/09/25 06:27: WBC 11.5 H, RBC 3.16 L, Hgb 9.9 L, Hct 29.6 L, MCV 93.7, MCH 31.3, MCHC 33.4, RDW Std Deviation 53.1 H, RDW Coeff of [place]per 15.4 H, Plt Count 175, MPV 10.5, Immature Gran % (Auto) 0.700, Neut % (Auto) 65.0, Lymph % (Auto) 8.4 L, [place] % (Auto) 7.8, Eos % (Auto) 17.8 H, Baso % (Auto) 0.3, Absolute Neuts (auto) 7.5, Absolute Lymphs (auto) 0.97, Nucleated RBC % 0, Sodium 131 L, Potassium 5.1, Chloride 96 L, Carbon Dioxide 27.0, Anion Gap 8, BUN 27 H, Creatinine 1.41 H, Estim Creat Clear Calc 47.97 L, Est GFR (MDRD) Non-Af 38 L, BUN/Creatinine Ratio 19.0, Glucose 193 H, Calcium 9.1 Charges/Coding Visit Charges Inpatient E&M: 11269 Subs Hosp L2
[2025-01-09] MEDS: Budesonide Respules 0.5 MG/2 ML AMPUL.NEB. INHALATION (10:41)
[2025-01-09] MEDS: Albuterol 2.5 MG/3 ML VIAL.NEB. INHALATION (10:41)
--- NOTE | 2025-01-09 12:54 | CASEMGMT ---
Addendum entered by Erum White 01/09/25 15:50: Social Work- Pt to discharge to [facility]. JUAN Marcano Original Note: Social Work- SW called [facility] to follow up on referral. Hospice reports they will consult 15:30-14:00 today. Bedside nurse updated. Hospitalist updated. JUAN Marcano
--- NOTE | 2025-01-09 15:34 | DS.PCM_ITS ---
Providers Date of Admission: 01/08/25 Date of Discharge: 01/09/25 Primary Care Physician: Dr. Deven Van MD Consultations 01/09/25 01:21 Consult: Hospice / Outpatient Palliative Care Routine Consulting Provider: [facility] Reason for Consult: Metastatic endometrial cancer EMERGENT Consult: No MD Notified: Yes Date Notified: 01/09/25 Time Notified: 09:05 Method of Notification: Answering Service Comments:: completed by SW. Reason For Visit: HYPOXIA, RIGHT PLEURAL EFFUSION, METASTATIC Diagnosis Discharge Diagnosis (1) Pleural effusion on right: Status: Acute Code(s): J90 - Pleural effusion, not elsewhere classified (2) Hypoxia: Status: Acute Code(s): R09.02 - Hypoxemia (3) Acute delirium: Status: Acute Code(s): R41.0 - Disorientation, unspecified (4) Type 2 diabetes mellitus: Status: Acute Code(s): E11.9 - Type 2 diabetes mellitus without complications (5) Malignant neoplasm metastatic to endometrium with unknown primary site: Status: Acute Code(s): C79.82 - Secondary malignant neoplasm of genital organs; C80.1 - Malignant (primary) neoplasm, unspecified Plan This 79-year-old female with history of metastatic endometrial cancer was admitted with altered mental status, lethargic and confused worse than baseline. She has been following with palliative care at home. She was unable to make follow-up appointment with oncology 1. Hypoxia secondary to right pleural effusion likely caused by malignancy with suspicion of metastatic pleural effusion: The patient is being admitted on the medical floor. Option was given for ultrasound-guided thoracocentesis but patient would not be a good candidate as high chance of recurrence because of high priority of metastatic pleural effusion. CTA chest shows large right pleural effusion with compressive atelectasis and RUL 16 mm and RML 8 mm solid pulmonary nodule suspicious for metastatic disease. Calcified mediastinal lymph nodes and right peritracheal lymph node 30 mm. PE ruled out The patient had a hospice meeting in afternoon and accepted for inpatient hospice care unit. Patient is being transferred to inpatient hospice today Urinary retention: Patient had bladder scan which shows more than 900 mL urine. Initially straight catheter was ordered but hospice service want Elaine catheter for palliation/symptom relief. Elaine catheter ordered. Patient has been discharged to inpatient hospice unit for symptom relief/hospice care 2. Acute encephalopathy on baseline mild cognitive deficit: Multiple suspected etiology including metabolic, from metastatic cancer 3. Metastatic endometrial cancer–CT confirms neoplasm in the lungs metastatic deposits. Due to recent decline and palliative and hospice care consulted. [facility]. 3. Diabetesmellitus type II glucose was 350 range at home. She was last hospitalized for hypoglycemia. Accu-Chek before meals and at bedtime with Humalog sliding scale coverage and hypoglycemia protocol. 4. DVT prophylaxis–low molecular weight heparin 5. CODE STATUS DNR Comfort Care arrest confirmed with family member. DNRCC paper signed Clinical Impression(s) from Imaging Studies Chest X-Ray 01/08/25 18:45 IMPRESSION: Moderate right pleural effusion no widening, underlying consolidation not excluded. Reading Location: [facility] 01/08/25 22:05 IMPRESSION: No acute intracranial abnormality. Reading Location: [id number] Chest CTA 01/08/25 22:05 IMPRESSION: No pulmonary embolism identified to the segmental level. Evaluation of subsegmental branches is limited due to suboptimal contrast timing. Large right pleural effusion with right lower lobe compressive atelectasis. Superimposed infection or underlying mass cannot be excluded. Right upper lobe 16 mm and right middle lobe 18 mm solid pulmonary nodules, suspicious for metastatic disease or multifocal primary neoplasm. Calcified mediastinal lymph nodes, including a right paratracheal lymph node measuring 13 mm. Coronary artery calcifications and mild atherosclerosis. Status post cholecystectomy. Reading Location: [id number] Laboratory Results 01/08/25 18:32: WBC 12.4 H, RBC 3.28 L, Hgb 9.9 L, Hct 30.9 L, MCV 94.2, MCH 30.2, MCHC 32.0, RDW Std Deviation 54.2 H, RDW Coeff of Casper 15.7 H, Plt Count 153, MPV 10.2, Immature Gran % (Auto) 0.300, Neut % (Auto) 65.9, Lymph % (Auto) 9.4 L, Treasure % (Auto) 8.8, Eos % (Auto) 15.4 H, Baso % (Auto) 0.2, Absolute Neuts (auto) 8.2 H, Absolute Lymphs (auto) 1.16, Nucleated RBC % 0, Sodium 131 L, Potassium 4.9, Chloride 93 L, Carbon Dioxide 29.6, Anion Gap 8, BUN 27 H, C reatinine 1.50 H, Est GFR (MDRD) Non-Af 35 L, BUN/Creatinine Ratio 18.1, Glucose 224 H, Calcium 9.3, Total Bilirubin 0.34, Direct Bilirubin 0.17, AST 17, ALT 14, Alkaline Phosphatase 78, Troponin T High Sens 39 H D, NT pro BNP II 298, Total Protein 6.7, Albumin 3.3 L, Globulin 3.4 01/08/25 19:58: PT 14.5, INR 1.1, APTT 38.2 H, Lactic Acid < 1.0 01/08/25 20:37: Troponin T Hi Sens 2 Hr 37 H, NT pro BNP II 286 01/08/25 22:41: Urine Color Yellow, Urine Clarity Clear, Urine pH 5.0, Ur Specific [place] 1.010, Urine Protein 100 H, Urine Glucose (UA) Normal, Urine Ketones Negative, Urine Occult Blood Negative, Urine Nitrite Negative, Urine Bilirubin Negative, Urine Urobilinogen Normal, Ur Leukocyte Esterase Negative, Urine RBC 0 SEEN, Urine WBC 0-5 SEEN, Ur Squamous Epith Cells 0-5 SEEN, Ur Renal Epithelial Cell 0-5 SEEN, Amorphous Sediment 3+, Urine Bacteria 1+, Hyaline Casts 0-5 SEEN, Urine Mucus 0 SEEN 01/09/25 06:24: POC Glucose 185 H 01/09/25 06:27: WBC 11.5 H, RBC 3.16 L, Hgb 9.9 L, Hct 29.6 L, MCV 93.7, MCH 31.3, MCHC 33.4, RDW Std Deviation 53.1 H, RDW Coeff of [place]per 15.4 H, Plt Count 175, MPV 10.5, Immature Gran % (Auto) 0.700, Neut % (Auto) 65.0, Lymph % (Auto) 8.4 L, Treasure % (Auto) 7.8, Eos % (Auto) 17.8 H, Baso % (Auto) 0.3, Absolute Neuts (auto) 7.5, Absolute Lymphs (auto) 0.97, Nucleated RBC % 0, Sodium 131 L, Potassium 5.1, Chloride 96 L, Carbon Dioxide 27.0, Anion Gap 8, BUN 27 H, C reatinine 1.41 H, Estim Creat Clear Calc 47.97 L, Est GFR (MDRD) Non-Af 38 L, BUN/Creatinine Ratio 19.0, Glucose 193 H, Calcium 9.1 Medications at Discharge Home Medications amitriptyline 50 mg tablet 50 mg PO QHS DEPRESSION 12/23/22 atorvastatin 40 mg tablet 40 mg PO QHS CHOLESTEROL 12/23/22 gabapentin 100 mg capsule 100 mg PO BID NERVE PAIN 12/23/22 magnesium chloride 71.5 mg (magnesium chloride) tablet,delayed release (Slow- Mag) 71.5 mg PO BID SUPPLEMENT 12/29/22 aspirin 81 mg tablet,delayed release (Adult Low Dose Aspirin) 81 mg PO DAILY HEART HEALTH 01/24/23 acetaminophen 500 mg tablet (Acetaminophen Extra Strength) 500 mg PO Q6H PRN PAIN 03/10/23 carvedilol 3.125 mg tablet 6.25 mg PO BID BP 12/17/23 torsemide 20 mg tablet 20 mg PO DAILY BP 12/27/24 metformin 500 mg tablet 500 mg PO BID DIABETES 30 days #60 tabs 12/28/24 amlodipine 10 mg tablet 10 mg PO DAILY BP 01/08/25 fluticasone 250 mcg-salmeterol 50 mcg/dose blistr powdr for inhalation 1 ea inhalation BID ask PCP 01/08/25 glimepiride 4 mg tablet 4 mg PO BID diabetic 01/08/25 morphine 15 mg tablet,extended release 15 mg PO Q12.TCU pain 01/08/25 morphine 15 mg tablet,extended release 15 mg PO Q12.TCU pain 01/08/25 oxycodone 10 mg tablet 10 mg PO Q6H PRN PRN pain 01/08/25 valsartan 80 mg tablet 160 mg PO QHS BP 01/08/25 Physical Exam Narrative Please see progress note of same date. Weight / BMI Weight Weight: 298 lb 11.622 oz Body Mass Index (BMI) 44.2 ABG / Lab / Microbiology Data 01/09/25 06:27 01/09/25 06:27 Laboratory: Laboratory Results - last 24 hr 01/08/25 18:32: WBC 12.4 H, RBC 3.28 L, Hgb 9.9 L, Hct 30.9 L, MCV 94.2, MCH 30.2, MCHC 32.0, RDW Std Deviation 54.2 H, RDW Coeff of [place] 15.7 H, Plt Count 153, MPV 10.2, Immature Gran % (Auto) 0.300, Neut % (Auto) 65.9, Lymph % (Auto) 9.4 L, Treasure % (Auto) 8.8, Eos % (Auto) 15.4 H, Baso % (Auto) 0.2, Absolute Neuts (auto) 8.2 H, Absolute Lymphs (auto) 1.16, Nucleated RBC % 0, Sodium 131 L, Potassium 4.9, Chloride 93 L, Carbon Dioxide 29.6, Anion Gap 8, BUN 27 H, C reatinine 1.50 H, Est GFR (MDRD) Non-Af 35 L, BUN/Creatinine Ratio 18.1, Glucose 224 H, Calcium 9.3, Total Bilirubin 0.34, Direct Bilirubin 0.17, AST 17, ALT 14, Alkaline Phosphatase 78, Troponin T High Sens 39 H D, NT pro BNP II 298, Total Protein 6.7, Albumin 3.3 L, Globulin 3.4 01/08/25 19:58: PT 14.5, INR 1.1, APTT 38.2 H, Lactic Acid < 1.0 01/08/25 20:37: Troponin T Hi Sens 2 Hr 37 H, NT pro BNP II 286 01/08/25 22:41: Urine Color Yellow, Urine Clarity Clear, Urine pH 5.0, Ur Specific [place] 1.010, Urine Protein 100 H, Urine Glucose (UA) Normal, Urine Ketones Negative, Urine Occult Blood Negative, Urine Nitrite Negative, Urine Bilirubin Negative, Urine Urobilinogen Normal, Ur Leukocyte Esterase Negative, Urine RBC 0 SEEN, Urine WBC 0-5 SEEN, Ur Squamous Epith Cells 0-5 SEEN, Ur Renal Epithelial Cell 0-5 SEEN, Amorphous Sediment 3+, Urine Bacteria 1+, Hyaline Casts 0-5 SEEN, Urine Mucus 0 SEEN 01/09/25 06:24: POC Glucose 185 H 01/09/25 06:27: WBC 11.5 H, RBC 3.16 L, Hgb 9.9 L, Hct 29.6 L, MCV 93.7, MCH 31.3, MCHC 33.4, RDW Std Deviation 53.1 H, RDW Coeff of [place] 15.4 H, Plt Count 175, MPV 10.5, Immature Gran % (Auto) 0.700, Neut % (Auto) 65.0, Lymph % (Auto) 8.4 L, Treasure % (Auto) 7.8, Eos % (Auto) 17.8 H, Baso % (Auto) 0.3, Absolute Neuts (auto) 7.5, Absolute Lymphs (auto) 0.97, Nucleated RBC % 0, Sodium 131 L, Potassium 5.1, Chloride 96 L, Carbon Dioxide 27.0, Anion Gap 8, BUN 27 H, C reatinine 1.41 H, Estim Creat Clear Calc 47.97 L, Est GFR (MDRD) Non-Af 38 L, BUN/Creatinine Ratio 19.0, Glucose 193 H, Calcium 9.1 Radiography Diagnostic Testing: Radiology Impression Chest X-Ray 01/08/25 18:45 IMPRESSION: Moderate right pleural effusion no widening, underlying consolidation not excluded. [facility] CT 01/08/25 22:05 IMPRESSION: No acute intracranial abnormality. Reading Location: [id number] Chest CTA 01/08/25 22:05 IMPRESSION: No pulmonary embolism identified to the segmental level. Evaluation of subsegmental branches is limited due to suboptimal contrast timing. Large right pleural effusion with right lower lobe compressive atelectasis. Superimposed infection or underlying mass cannot be excluded. Right upper lobe 16 mm and right middle lobe 18 mm solid pulmonary nodules, suspicious for metastatic disease or multifocal primary neoplasm. Calcified mediastinal lymph nodes, including a right paratracheal lymph node measuring 13 mm. Coronary artery calcifications and mild atherosclerosis. Status post cholecystectomy. Reading Location: [id number] D/C Instructions DC O2, CPAP, BIPAP Needs Home O2 Discharge instructions: No Meaningful Use Info Meaningful Use Meaningful Use Diagnoses (Choose all that apply): None applicable Discharge Plan Admission Admit Date/Time: 01/08/25 23:49 Attending Provider: Syed Muñiz Primary Care Provider: Deven Van Consulting Providers: Noel Christianson; Eduardo Aguilar; Mindy Forbes; Sheridan Clemons; Lala Madden; Ursula Evangelista MEDICAL CLAIMS ANALYST; Shivani Hernandes Discharge Orders/Prescriptions Prescriptions: No Action amitriptyline 50 mg tablet 50 mg PO QHS gabapentin 100 mg capsule 100 mg PO BID Patient Comments: PT STATES ONLY TAKES ONE CAPSULE TWICE A DAY ( OF 04/27/24) atorvastatin 40 mg tablet 40 mg PO QHS Slow-Mag 71.5 mg tablet,delayed release (DR/EC) 71.5 mg PO BID acetaminophen [Acetaminophen Extra Strength] 500 mg tablet 500 mg PO Q6H PRN (Reason: PAIN ) aspirin [Adult Low Dose Aspirin] 81 mg tablet,delayed release (DR/EC) 81 mg PO DAILY carvedilol 3.125 mg tablet 6.25 mg PO BID torsemide 20 mg tablet 20 mg PO DAILY metformin 500 MG tablet 500 mg PO BID 30 Days Qty: 60 0RF amlodipine 10 mg tablet 10 mg PO DAILY morphine 15 mg tablet extended release 15 mg PO Q12.TCU oxycodone 10 mg tablet 10 mg PO Q6H PRN PRN (Reason: pain) fluticasone propion-salmeterol 250-50 mcg/dose blister with device 1 ea INHALATION BID glimepiride 4 mg tablet 4 mg PO BID morphine 15 mg tablet extended release 15 mg PO Q12.TCU valsartan 80 mg tablet 160 mg PO QHS Referrals / Follow Up: Deven Van MD [Primary Care Provider, [facility]] Disposition Disposition (needs filled in before D/C Order can be placed): Hospice in Medical Facility Charges/Coding Visit Charges Inpatient E&M: 52154 Disch Hosp >30min
--- NOTE | 2025-01-09 15:57 | CHAPLAIN ---
Type of Pastoral Visit _x__ Initial Visit ___ Follow-up Visit ___ On-call Visit ___ General Patient Visit ___ Spiritual Assessment ___ Family Conference ___ Bereavement ___ Rapid Response ___ Code Blue ___ Other (describe below) Pastoral Care Referral From ___ Patient _x__ Family ___ Nurse ___ Physician ___ Assembler Product ___ Supervisor [employer] ___ Other (describe below) Sacrament/Intervention _x__ Active listening ___ Anointing ___ Restorationism ___ Bereavement ___ Communion _x__ Dolores exploration ___ ___ Life review _x__ Prayer ___ Reconciliation ___ Sacrament of Sick _x__ Supportive presence ___ Wedding ___ Other (describe below) Pastoral Comments this patient was seen recently in a previous admission; pt is being enrolled in hospice and will be moved yet this afternoon to their unit; sister is at the bedside and welcoming; pt is awake and has good moments of understanding and is able to give some brief comments; sister said that they have been able to quote some scriptures together; pt is offered affirmation of care and spiritual support; esthetician/owner gives scripture verses and words of comfort and hope; pt is responsive and gives thanks for the presence; prayer is welcomed; some discussion given on the facility and care of hospice so pt has more contentment at this time;
== END 2025-01-09 20:18 | disposition hospice, inpatient (51) | DRG 205 ==
LOC: ED 21:09 → MS3 23:57
PROVIDERS: Admitting Provider Family Medicine; Emergency Provider Emergency Medicine; PCP Family Medicine; Visit Provider Internal Medicine
DX: R09.02 Hypoxemia (principal); G93.41 Metabolic encephalopathy; C78.01 Secondary malignant neoplasm of right lung; C79.82 Secondary malignant neoplasm of genital organs; J91.0 Malignant pleural effusion; C78.02 Secondary malignant neoplasm of left lung; E11.22 Type 2 diabetes mellitus with diabetic chronic kidney disease; N18.30 Chronic kidney disease, stage 3 unspecified; I12.9 Hypertensive chronic kidney disease with stage 1 through stage 4 chronic kidney disease, or unspecified chronic kidney disease; I25.10 Atherosclerotic heart disease of native coronary artery without angina pectoris; E11.40 Type 2 diabetes mellitus with diabetic neuropathy, unspecified; C80.1 Malignant (primary) neoplasm, unspecified; Z87.891 Personal history of nicotine dependence; Z66 Do not resuscitate; Z79.82 Long term (current) use of aspirin; Z79.899 Other long term (current) drug therapy; Z79.84 Long term (current) use of oral hypoglycemic drugs
CPT/HCPCS: 36415; 36591; 70450; 71045; 71275; 80048; 80076; 81001; 82962; 83605; 83880; 84484; 85025; 85610; 85730; 87040; 94640; 99285; Q9967; A4216